=== PATIENT | female | born 1950 | race Caucasian/White ===

== ENCOUNTER 2018-11-06 13:26 | Inpatient (IN) ==
--- OUTSIDE RECORDS SUMMARY | 2018-11-06 13:28 | External Medical Summary | Continuity of Care Document ---
:1950 Author Name Gely Cantu, Provider Address Unavailable Unavailable , Care Team Providers Name Role Phone Leena Bauer M.D. Unavailable [email or web address] Brennon Lee Unavailable Unavailable Problems Active medical history not documented Allergies and Adverse Reactions Allergy history not documented Medications Medications not documented Procedures Procedures not documented Immunizations Immunizations not documented Plan of Treatment Planned Observations Planned Goals not documented Results No Known Results Results not documented
[2018-11-06] MEDS ORDERED: fentaNYL citrate 100 MCG/2 ML VIAL IV STA (13:41)
[2018-11-06 14:05] LABS: Basophils # (auto) 0.04 K/uL (0-0.2); Basophils % (auto) 0.4 %; Eosinophils # (auto) 0.29 K/uL (0-0.5); Eosinophils % (auto) 3.1 %; Hematocrit (blood only) 33.9 % (37-47); Hemoglobin 11.1 g/dL (12.0-16.0); Immature Granulocytes # (auto) 0.02 K/uL (0.00-0.02); Immature Granulocytes % (auto) 0.2 %; Lymphocytes # (auto) 1.81 K/uL (1.2-3.4); Lymphocytes % (auto) 19.4 %; Mean Corpuscular Hemoglobin 26.7 pg (25-34); Mean Corpuscular Hgb Conc 32.7 g/dL (32-36); Mean Corpuscular Volume 81.7 fL (80-100); Monocytes # (auto) 0.62 K/uL (0.11-0.59); Monocytes % (auto) 6.7 %; Neutrophils # (auto) 6.53 K/uL (1.4-6.5); Neutrophils % (auto) 70.2 %; Platelet Count 328 K/uL (130-400); RDW Coefficient of Variation 15.7 % (11.5-14.5); RDW Standard Deviation 46.8 fL (36.4-46.3); Red Blood Count 4.15 M/uL (4.2-5.4); White Blood Count 9.31 K/uL (4.8-10.8)
[2018-11-06] MEDS ORDERED: HYDROmorphone INJ 0.5 MG/0.5 ML SYR IV STA ×2 (14:09→15:29)
--- NOTE | 2018-11-06 14:09 | Emergency Department Note ---
ED Provider Note CHIEF COMPLAINT: Right leg pain, cold and discolored HISTORY OF PRESENTING ILLNESS: This is a 68-year-old female with past medical history significant for COPD, insulin-dependent diabetes, hypertension, hyperlipidemia, CAD with history of 2 MIs and a coronary stent, stroke, peripheral vascular disease, and a persistent heavy smoker, who presents to the emergency department by private vehicle with complaint of right leg pain, discoloration, and coldness that has been progressively worsening over the past 2 weeks. Patient reports a history of a bilateral femorofemoral bypass surgery in 2004, she states she has not had any issues since the surgery until now. She reports the surgeon that operated on her is retired now. She states that she had an ultrasound done at [facility] on this past Tuesday, they called her today and told her that her graft is occluded and told her to come to the ER. She states that the pain is severe, burning and stabbing, and rates it as 10/10. She has been taking gabapentin and tramadol with minimal relief. She states that the discoloration and coldness of her leg has been moving up the leg the past few days. She denies any other symptoms of chest pain, shortness of breath, dizziness or syncope, fevers or chills, nausea or vomiting, abdominal pain, back pain, urinary symptoms, or unusual rash. REVIEW OF SYSTEMS: A complete 10 point review of systems was reviewed with the patient with pertinent positives and negatives as per history of present illness. All else were negative. PAST MEDICAL HISTORY: COPD, type 2 diabetes, hypertension, hyperlipidemia, CAD, MS, S/P stent, stroke, peripheral vascular disease, femorofemoral bypass surgery SOCIAL HISTORY: Lives at home, she is a current everyday smoker approximately 2 packs/day ALLERGIES: Reviewed in chart and with the patient PHYSICAL EXAM: CONSTITUTIONAL: Pleasant and cooperative. No acute distress, but appears uncomfortable from pain. Well appearing and well nourished. HEENT: Normocephalic, atraumatic. PERRL, EOMI. NECK: Supple, full active range of motion without discomfort. RESPIRATORY: Clear to auscultation bilaterally with no wheezing, crackles, rhonchi or stridor. Equal expansion bilaterally. CARDIOVASCULAR: Regular rate and rhythm with no murmurs, rubs or gallops. The right lower extremity is cold to the touch, mottled, and with significantly delayed cap refill (>6 seconds). Poor sensation to the right foot. Unable to palpate pulses, faint monophasic doppler pulses found at the femoral, popliteal, and PT pulse points. Unable to doppler a DP pulse in the right foot. Good pulses in the left foot and leg, which is warm and with normal cap refill. No pitting edema bilateral lower extremities. GASTROINTESTINAL: Soft, nontender, nondistended. No palpable masses or HSM. Bowel sounds present in all quadrants. MUSCULOSKELETAL: Full range of motion of all joints without discomfort. INTEGUMENTARY: No rash or other significant dermatologic conditions noted. NEUROLOGIC: Alert and oriented X 4 with normal affect. ED COURSE AND MEDICAL DECISION MAKING: CC: Patient presenting with complaint of right leg pain DIFFERENTIAL DIAGNOSIS: Includes, but not limited to PVD, PAD, arterial occlusion, vascular graft failure, ischemic limb, among others. INTERPRETATION OF LABS: No leukocytosis, mild anemia, normal platelets, no significant electrolyte abnormalities, normal renal function, normal liver enzym es. Lactic acid within normal limits. Coagulation factors within normal limits. IMAGING: CT ANGIOGRAPHY OF THE ABDOMEN AND PELVIS AND BILATERAL LOWER EXTREMITIES CLINICAL HISTORY: Right foot coldness. Evaluate femoral-femoral bypass. COMPARISON STUDY: None. TECHNIQUE: Helical axial images of the abdomen and pelvis and both lower extremities were obtained during arterial phase following intravenous injection 120 cc Optiray 320 IV. Sagittal and coronal reconstructions were viewed as well as maximal intensity projections on an independent 3-D workstation. Automated exposure control was utilized for the study. A dose lowering technique was utilized adhering to the principles of ALARA. FINDINGS: Multiple small right lower lung lobe nodule measures up to 3 mm. Heart is mildly enlarged. Arterial phase images of the liver, spleen, adrenal glands, kidneys and pancreas are unremarkable with exception of scarring within the lower pole the left kidney. There is no biliary or pancreatic ductal dilatation. There is no evidence for a bowel obstruction. The appendix is normal. No ascites or lymphadenopathy is present. There are no suspicious osseous lesions. Extensive aortoiliac and bilateral lower extremity atherosclerotic plaque is noted. The caliber of the abdominal aorta is normal. There is moderate stenosis of the superior mesenteric artery and mild to moderate stenosis at the origin of the right renal artery. Celiac axis is patent. Note is made of occlusion of the femoral to femoral bypass. There is moderate stenosis at the origin of the left superficial femoral artery with suspected severe stenosis of the distal left superficial femoral artery which is difficult to assess given extensive plaque. Moderate to severe stenosis of the left popliteal artery is noted. The left anterior tibial, posterior tibial and peroneal arteries are patent. Moderate stenosis of the tibioperoneal trunk is noted. The right external iliac artery is occluded. There is severe stenosis of the right common iliac artery as well as moderate to severe stenosis at the origin of the right internal iliac artery. Flow within the right lower extremity is noted due to collaterals from the right internal iliac artery. Extensive plaque within the right lower extremity is noted. There are severe multifocal stenoses within the right superficial femoral artery. The right popliteal artery is pat ent. The right posterior tibial artery is patent. Right peroneal artery is patent. There is suspected occlusion of the mid to distal right anterior tibial artery and the right dorsalis pedis. IMPRESSION: 1. Extensive aortoiliac and bilateral lower extremity atherosclerotic plaque. Occluded femoral to femoral bypass with collateral originating from the right internal iliac artery supplying the right lower extremity. Severe multifocal stenoses within the right superficial femoral artery with suspected occlusion of the mid to distal right anterior tibial and dorsalis pedis vessels. Patent right posterior tibial and peroneal arteries. 2. Severe stenoses of the distal left superficial femoral and popliteal arteries with moderate stenosis at the origin of the left superficial femoral artery. 3. Moderate stenosis of the superior mesenteric artery. Mild to moderate stenosis at the origin the right renal artery. 4. No acute process within the abdomen or pelvis. 5. Multiple small right lower lobe pulmonary nodules which are likely benign. A follow-up chest CT in 6 months to ensure stability is recommended. MEDICATION RECONCILIATION: I attest that I have personally reviewed the gama isaac's current medication list. INITIAL VITAL SIGNS REVIEW: I reviewed the patient's initial vital signs and interpret them as follows: T: Afebrile; BP: Normotensive; HR: Within normal limits; RR: Within normal limits; Pulse Ox: Within normal limits on room air. Blood pressure screening: The patient was found to have normal blood pressure on screening and does not require follow-up for repeat blood pressure check. MDM SUMMARY: Patient was evaluated at bedside, history and physical exam performed. Patient is alert and oriented, in no acute distress, but appears uncomfortable from pain, resting in the stretcher. Exam findings concerning for an acutely ischemic limb, the right leg is cold, mottled, insensate, and with barely discernible femoral, popliteal, and PT pulses with Doppler, no DP pulse with Doppler. Dr. Caban was immediately made aware of the patient and also evaluated her at bedside. I spoke on the phone with Dr. Jara, vascular surgery, who requested CT angio of the abdomen with runoff of the entire leg, and recommended placing the patient on heparin drip. Orders were placed at bedside for labs, IV fluid bolus for renal protection, IV fentanyl for pain, CTA imaging to evaluate for graft patency and right limb ischemia. Heparin drip orders were placed as well. Labs and imaging reviewed as above, no significant lab abnormalities. Normal lactic acid. CTA reviewed, noting an occluded femoral to femoral bypass, severe stenosis throughout the right extremity arteries with suspected occlusion of the mid to distal right anterior tibial and dorsalis pedis vessels. Patient reassessed multiple times throughout ED stay, she remained hemodynamically stable, her pain has been improved with IV Dilaudid. Her vascular exam remains unchanged on frequent reassessments. Dr. Jara plans to take the patient to the OR emergently to attempt to revascularize the right lower extremity. The patient was updated on all results and plan for the OR and admission, she ve rbalized understanding and was agreeable to this plan. The patient was stable at time of transfer to the OR. CRITICAL CARE NOTE: I have personally spent greater than 35 minutes of critical care time in the direct management of this patient. This includes bedside care, interpretation of diagnostic studies, and testing, discussion with consultants, patient, and family members, and other required patient management activities. This 35 minutes is in excess of all separately billable procedures. The chart was completed utilizing [employer] voice recognition software. Grammatical errors, random word insertions, pronoun errors, and incomplete sentences are an occasional consequence of this system due to software limitations, ambient noise, and hardware issues. Any formal questions or concerns about the content, text, or information contained within the body of this dictation should be directly addressed to the nurse practitioner for clarification. Impression & Plan Pain of right lower extremity due to ischemia Past Med/Surg History Medical History Critical limb ischemia with history of revascularization of same extremity (Acute) RLE COPD (chronic obstructive pulmonary disease) CVA (cerebral vascular accident) Coronary artery disease, occlusive Diabetes mellitus type 2 with atherosclerosis of arteries of extremities H/O: hysterectomy HTN (hypertension) Hyperlipidemia Insulin dependent diabetes mellitus Myocardial infarction x2 with stent PVD (peripheral vascular disease) Tobacco use disorder, continuous 2ppd Surgical History Status post carotid endarterectomy right Status post femoral-popliteal bypass surgery 2004 Social History Feels Safe at Home: Yes Smoking Status: Current every day smoker Cigarettes Per Day: 2ppd ; Do You Dip or Chew Tobacco: No ; Hx Alcohol Use: No Hx Substance Use: No Results & Data Vital Signs Vital Signs - 24 hr 11/06/18 13:31 11/06/18 14:13 11/06/18 14:18 Temperature 36.9 C Temperature Source Oral Sepsis Recent Fever Within 48 Hours No Sepsis Action Taken by Nursing No Action Required Pulse Rate 89 83 92 H Pulse Rate [Finger] Pulse Rate from SpO2 Sensor 82 89 Pulse Rhythm [Finger] Respiratory Rate 20 21 19 Respiratory Effort / Characteristics Non-Labored Respiratory Depth Normal Respiratory Pattern Regular Blood Pressure 125/69 125/64 Blood Pressure [Right Arm] Blood Pressure Mean 87 84 Blood Pressure Mean [Right Arm] Blood Pressure Position [Right Arm] Pulse Oximetry 96 99 94 Oxygen Delivery Method Room Air 11/06/18 14:20 11/06/18 14:30 11/06/18 14:40 Temperature Temperature Source Sepsis Recent Fever Within 48 Hours Sepsis Action Taken by Nursing Pulse Rate 79 73 80 Pulse Rate [Finger] Pulse Rate from SpO2 Sensor 78 75 Pulse Rhythm [Finger] Respiratory Rate 16 17 15 Respiratory Effort / Characteristics Respiratory Depth Respiratory Pattern Blood Pressure Blood Pressure [Right Arm] Blood Pressure Mean Blood Pressure Mean [Right Arm] Blood Pressure Position [Right Arm] Pulse Oximetry 97 97 Oxygen Delivery Method 11/06/18 14:45 11/06/18 14:50 11/06/18 15:25 Temperature Temperature Source Sepsis Recent Fever Within 48 Hours Sepsis Action Taken by Nursing Pulse Rate 78 79 90 Pulse Rate [Finger] Pulse Rate from SpO2 Sensor 73 78 87 Pulse Rhythm [Finger] Respiratory Rate 12 14 10 L Respiratory Effort / Characteristics Respiratory Depth Respiratory Pattern Blood Pressure 113/64 Blood Pressure [Right Arm] Blood Pressure Mean 80 Blood Pressure Mean [Right Arm] Blood Pressure Position [Right Arm] Pulse Oximetry 97 98 96 Oxygen Delivery Method 11/06/18 15:30 11/06/18 15:40 11/06/18 15:50 Temperature Temperature Source Sepsis Recent Fever Within 48 Hours Sepsis Action Taken by Nursing Pulse Rate 83 81 84 Pulse Rate [Finger] 87 Pulse Rate from SpO2 Sensor 78 82 84 Pulse Rhythm [Finger] Respiratory Rate 15 12 13 Respiratory Effort / Characteristics Non-Labored Respiratory Depth Normal Respiratory Pattern Blood Pressure 123/62 Blood Pressure [Right Arm] 123/62 Blood Pressure Mean 82 Blood Pressure Mean [Right Arm] 82 Blood Pressure Position [Right Arm] Pulse Oximetry 97 99 99 Oxygen Delivery Method Room Air 11/06/18 16:10 Temperature 36.7 C Temperature Source Oral Sepsis Recent Fever Within 48 Hours Sepsis Action Taken by Nursing Pulse Rate Pulse Rate [Finger] 87 Pulse Rate from SpO2 Sensor Pulse Rhythm [Finger] Regular Respiratory Rate 18 Respiratory Effort / Characteristics Non-Labored Spontaneous Respiratory Depth Normal Respiratory Pattern Regular Blood Pressure Blood Pressure [Right Arm] 126/69 Blood Pressure Mean Blood Pressure Mean [Right Arm] 88 Blood Pressure Position [Right Arm] Semi-fowlers Pulse Oximetry 98 Oxygen Delivery Method Room Air Laboratory Data Result diagrams: 11/06/18 20:05 11/06/18 20:05 Lab Results 11/06/18 11/06/18 11/06/18 Range/Units 13:54 13:54 13:54 WBC 9.31 (4.8-10.8) K/uL RBC 4.15 L (4.2-5.4) M/uL Hgb 11.1 L (12.0-16.0) g/dL Hct 33.9 L (37-47) % MCV 81.7 (80-100) fL MCH 26.7 (25-34) pg MCHC 32.7 (32-36) g/dL RDW Std Deviation 46.8 H (36.4-46.3) fL RDW Coeff of Shahrzad 15.7 H (11.5-14.5) % Plt Count 328 (130-400) K/uL MPV 9.0 (7.4-10.4) fL Immature Gran % (Auto) 0.2 % Neut % (Auto) 70.2 % Lymph % (Auto) 19.4 % [place] % (Auto) 6.7 % Eos % (Auto) 3.1 % Baso % (Auto) 0.4 % Immature Gran # (Auto) 0.02 (0.00-0.02) K/uL Neut # (Auto) 6.53 H (1.4-6.5) K/uL Lymph # (Auto) 1.81 (1.2-3.4) K/uL [place] # (Auto) 0.62 H (0.11-0.59) K/uL Eos # (Auto) 0.29 (0-0.5) K/uL Baso # (Auto) 0.04 (0-0.2) K/uL PT 10.8 (9.0-12.0) Seconds INR 1.1 (0.9-1.1) APTT 26.1 (21.0-31.0) Seconds PTT Ratio 1.0 Sodium 139 (136-145) mmol/L Potassium 4.1 (3.5-5.1) mmol/L Chloride 103 (98-107) mmol/L Carbon Dioxide 29 (21-32) mmol/L Anion Gap 7.0 (3-11) BUN 13 (7-18) mg/dl Creatinine 1.04 (0.6-1.2) mg/dl Est Cr Clr Drug Dosing 51.8 ml/min Est GFR ( Amer) 63.5 Est GFR (Non-Af Amer) 54.8 BUN/Creatinine Ratio 12.9 (10-20) Glucose 110 H (70-99) mg/dl Lactate (0.4-2.0) mmol/L Calcium 9.4 (8.5-10.1) mg/dl Total Bilirubin 0.7 (0.2-1) mg/dl AST 10 L (15-37) U/L ALT 15 (12-78) U/L Alkaline Phosphatase 101 (45-117) U/L Total Protein 8.3 H (6.4-8.2) gm/dl Albumin 3.8 (3.4-5.0) gm/dl Globulin 4.5 H (2.5-4.0) gm/dl Albumin/Globulin Ratio 0.8 L (0.9-2) Blood Type Blood Type Recheck Antibody Screen Crossmatch 11/06/18 11/06/18 11/06/18 Range/Units 13:54 15:46 17:20 WBC (4.8-10.8) K/uL RBC (4.2-5.4) M/uL Hgb (12.0-16.0) g/dL Hct (37-47) % MCV (80-100) fL MCH (25-34) pg MCHC (32-36) g/dL RDW Std Deviation (36.4-46.3) fL RDW Coeff of Shahrzad (11.5-14.5) % Plt Count (130-400) K/uL MPV (7.4-10.4) fL Immature Gran % (Auto) % Neut % (Auto) % Lymph % (Auto) % [place] % (Auto) % Eos % (Auto) % Baso % (Auto) % Immature Gran # (Auto) (0.00-0.02) K/uL Neut # (Auto) (1.4-6.5) K/uL Lymph # (Auto) (1.2-3.4) K/uL [place] # (Auto) (0.11-0.59) K/uL Eos # (Auto) (0-0.5) K/uL Baso # (Auto) (0-0.2) K/uL PT (9.0-12.0) Seconds INR (0.9-1.1) APTT (21.0-31.0) Seconds PTT Ratio Sodium (136-145) mmol/L Potassium (3.5-5.1) mmol/L Chloride (98-107) mmol/L Carbon Dioxide (21-32) mmol/L Anion Gap (3-11) BUN (7-18) mg/dl Creatinine (0.6-1.2) mg/dl Est Cr Clr Drug Dosing ml/min Est GFR ( Amer) Est GFR (Non-Af Amer) BUN/Creatinine Ratio (10-20) Glucose (70-99) mg/dl Lactate 1.7 (0.4-2.0) mmol/L Calcium (8.5-10.1) mg/dl Total Bilirubin (0.2-1) mg/dl AST (15-37) U/L ALT (12-78) U/L Alkaline Phosphatase (45-117) U/L Total Protein (6.4-8.2) gm/dl Albumin (3.4-5.0) gm/dl Globulin (2.5-4.0) gm/dl Albumin/Globulin Ratio (0.9-2) Blood Type A Positive Blood Type Recheck A Positive Antibody Screen NEGATIVE Crossmatch See Detail Administered Medications Buspirone HCl (Buspar) 15 mg PO BID [facility] Stop: 12/06/18 21:27 Last Admin: 11/06/18 22:28 Dose: 15 mg Documented by: [id number] Carvedilol (Coreg) 3.125 mg PO BID [facility] Stop: 12/06/18 21:27 Last Admin: 11/06/18 22:29 Dose: 3.125 mg Documented by: [id number] Gabapentin (Neurontin) 100 mg PO TID [facility] Stop: 12/06/18 21:27 Last Admin: 11/06/18 22:29 Dose: 100 mg Documented by: [id number] Heparin Sodium/Dextrose (Heparin Sodium/Dextrose) 25,000 units in 500 mls @ 23 mls/hr IV .[id number] [facility]; Protocol Stop: 12/06/18 14:29 Last Admin: 11/06/18 22:50 Dose: 1,150 units/hr, 23 mls/hr Documented by: [id number] Cosigned by: [id number] Titration: 11/06/18 22:50 Dose: 1,150 units/hr, 23 mls/hr Documented by: [id number] Cosigned by: [id number] Admin: 11/06/18 14:49 Dose: 1,150 units/hr, 23 mls/hr Documented by: [id number] Cosigned by: [id number] Ioversol (Optiray 320 125ml) 120 ml IV ONCE PRN PRN Reason: Interaction Checking Stop: 11/10/18 15:23 Last Admin: 11/06/18 15:25 Dose: 120 ml Documented by: [id number] Miscellaneous (Remove Nicoderm Patch) 1 ea N/A HS [facility] Stop: 12/06/18 20:59 Last Admin: 11/06/18 22:28 Dose: 1 ea Documented by: [id number] Morphine Sulfate (Morphine Sulfate) 1 - 4 mg IV Q2H PRN PRN Reason: Severe Pain Stop: 11/20/18 21:27 Last Admin: 11/06/18 22:31 Dose: 4 mg Documented by: [id number] Nicotine (Nicoderm Cq) 21 mg TD QAM [facility] Stop: 12/06/18 15:29 Last Admin: 11/06/18 15:42 Dose: 21 mg Documented by: [id number] Pantoprazole Sodium (Protonix) 40 mg PO BID [facility] Stop: 12/06/18 21:27 Last Admin: 11/06/18 22:30 Dose: 40 mg Documented by: [id number] Discontinued Medications Bupivacaine HCl/Epinephrine Bitart (Sensorcaine/Epinephrine 0.5% Mpf 1:200,000) Confirm Administered Dose 30 ml .ROUTE .STK-MED ONE Stop: 11/06/18 16:14 Last Admin: 11/06/18 19:24 Dose: 10 ml Documented by: [id number] Cefazolin Sodium (Ancef) Confirm Administered Dose 1,000 mg .ROUTE .STK-MED ONE Stop: 11/06/18 16:14 Last Admin: 11/06/18 18:45 Dose: Not Given Documented by: [id number] Fentanyl Citrate (Fentanyl Citrate) 50 mcg IV NOW STA Stop: 11/06/18 13:42 Last Admin: 11/06/18 13:58 Dose: 50 mcg Documented by: [id number] Gelatin (Surgifoam Sponge 100 (Large)) Confirm Administered Dose 2 ea .ROUTE .STK-MED ONE Stop: 11/06/18 16:14 Last Admin: 11/06/18 18:46 Dose: 1 ea Documented by: [id number] Heparin Sodium (Porcine) (Heparin Iv Bolus (Appliance Technician Use Only)) Confirm Administered Dose 10,000 units .ROUTE .STK-MED ONE Stop: 11/06/18 16:13 Last Admin: 11/06/18 18:46 Dose: 5,000 units Documented by: [id number] Heparin Sodium/Dextrose () 1 ea N/A ONE ONE; Protocol Stop: 11/06/18 14:17 Last Admin: 11/06/18 14:53 Dose: Not Given Documented by: [id number] Hydromorphone HCl (Dilaudid) 0.5 mg IV NOW STA Stop: 11/06/18 14:10 Last Admin: 11/06/18 14:14 Dose: 0.5 mg Documented by: [id number] Hydromorphone HCl (Dilaudid) 0.5 mg IV NOW STA Stop: 11/06/18 15:30 Last Admin: 11/06/18 15:43 Dose: 0.5 mg Documented by: [id number] Sodium Chloride (Nss 1000ml) 500 mls @ 999 mls/hr IV .Q31M ONE Stop: 11/06/18 15:25 Last Admin: 11/06/18 15:43 Dose: 999 mls/hr Documented by: [id number] Iodixanol (Visipaque) Confirm Administered Dose 270 mg .ROUTE .STK-MED ONE Stop: 11/06/18 16:14 Last Admin: 11/06/18 18:47 Dose: Not Given Documented by: [id number] Lidocaine HCl (Xylocaine 1% (Local)) Confirm Administered Dose 20 ml .ROUTE .STK-MED ONE Stop: 11/06/18 16:13 Last Admin: 11/06/18 19:23 Dose: 10 ml Documented by: [id number] Metoclopramide HCl (Reglan) 10 mg IV ONCE PRN PRN Reason: PACU Use Only-Nausea/Vomiting Stop: 11/07/18 00:58 Last Admin: 11/06/18 20:07 Dose: 10 mg Documented by: [id number] Metoclopramide HCl (Reglan) Confirm Administered Dose 10 mg .ROUTE .STK-MED ONE Stop: 11/06/18 20:06 Last Admin: 11/06/18 21:59 Dose: Not Given Documented by: [id number] Papaverine HCl (Papaverine Hcl) Confirm Administered Dose 30 mg .ROUTE .STK-MED ONE Stop: 11/06/18 16:13 Last Admin: 11/06/18 18:44 Dose: Not Given Documented by: [id number] Thrombin (Recothrom Kit) Confirm Administered Dose 10,000 units .ROUTE .STK-MED ONE Stop: 11/06/18 16:14 Last Admin: 11/06/18 18:45 Dose: 5,000 units Documented by: [id number] Discharge Plan Visit Data *Final* Discharge Date/Time: 11/06/18 16:01 Chief Complaint: Leg Injury/Pain Stated Complaint: NO BLOOD FLOW TO R LEG ED Provider: Fred Caban ED Midlevel Provider: Adriana Berg Discharge Problem: Pain of right lower extremity due to ischemia Patient Disposition: Still a Patient Discharge Instructions Interventions: ED Discharge Assessment Last Done: 11/06/18 16:01
[2018-11-06] MEDS ORDERED: Heparin IV Standard *NO* Bolus ONE (14:16)
[2018-11-06 14:20] LABS: Albumin Level 3.8 gm/dl (3.4-5.0); BUN Creatinine Ratio 12.9 (10-20); Calcium 9.4 mg/dl (8.5-10.1); Creatinine Clr Calc Pharmacy 51.8 ml/min; Est GFR (African American) 63.5; Est GFR (Non-African American) 54.8; Potassium 4.1 mmol/L (3.5-5.1)
[2018-11-06 14:23] LABS: Albumin Globulin Ratio 0.8 (0.9-2); Bilirubin,Total 0.7 mg/dl (0.2-1); Globulin 4.5 gm/dl (2.5-4.0); INR 1.1 (0.9-1.1); Partial Thromboplastin Time 26.1 Seconds (21.0-31.0); Prothrombin Time 10.8 Seconds (9.0-12.0); Total Protein 8.3 gm/dl (6.4-8.2)
[2018-11-06] MEDS ORDERED: Heparin IV Standard *NO* Bolus IV SCH (14:30)
[2018-11-06] MEDS: HEPARIN SODIUM/DEXTROSE 25,000 UNITS/500 ML BAG IV SCH ×2 (14:49→22:50)
[2018-11-06] MEDS ORDERED: SODIUM CHLORIDE 0.9% 1000ML 500 ML IV ONE (14:55)
[2018-11-06] MEDS ORDERED: OPTIRAY 320 125ml IV PRN (15:24)
--- NOTE | 2018-11-06 15:37 | History & Physical Report ---
Date of Service November 06, 2018 Assessment & Plan (1) Pain of right lower extremity due to ischemia: This point recommend a thrombectomy of the femorofemoral bypass with possible revision and possible femoropopliteal bypass if needed. I have discussed the risks options and benefits of the procedure with the patient. The patient understands the risks options and benefits and agrees to the procedure. History of Present Illness Chief Complaint: Right foot pain Primary Care Provider: Salvatore Adams MD This is a 68-year-old female who developed a right foot pain approximately 2 weeks prior to this.It is been Getting progressively worse. She does have a femorofemoral bypassDone in 2009.She had an ultrasound doneOn Tuesday which showed an occlusion of the bypass.She also has a carotid endarterectomy done on the right sideIn the past.She claims this pain is gotten progressively worse in the right foot. She has decreased sensation in the right foot. Allergies Allergy/AdvReac Type Severity Reaction Status Date / Time Penicillins Allergy Mild Vomiting Verified 11/06/18 15:02 gluten AdvReac Mild unknown Unverified 11/06/18 15:02 nitroglycerin AdvReac Mild DECREASED Verified 11/06/18 15:02 BP acetaminophen [From Lortab] AdvReac Vomiting Verified 11/06/18 15:02 hydrocodone [From Lortab] AdvReac Vomiting Verified 11/06/18 15:02 Home Medications Home Medications Medication Instructions Recorded Confirmed Type aspirin 81 mg PO DAILY 11/06/18 11/06/18 History atorvastatin 40 mg PO DAILY 11/06/18 11/06/18 History buspirone 15 mg PO BID 11/06/18 11/06/18 History carvedilol 3.125 mg PO BID 11/06/18 11/06/18 History clopidogrel 75 mg PO DAILY 11/06/18 11/06/18 History fluticasone propionate 1 spray INTRANASAL DAILY PRN 11/06/18 11/06/18 History furosemide 40 mg PO DAILY 11/06/18 11/06/18 History gabapentin 100 mg PO TID 11/06/18 11/06/18 History glipizide 10 mg PO BID 11/06/18 11/06/18 History ipratropium-albuterol 2 puff INHALATION Q4H PRN 11/06/18 11/06/18 History lisinopril 2.5 mg PO DAILY 11/06/18 11/06/18 History loratadine 10 mg PO DAILY 11/06/18 11/06/18 History omeprazole 40 mg PO BID 11/06/18 11/06/18 History pioglitazone 30 mg PO QAM 11/06/18 11/06/18 History tramadol 50 mg PO Q6H PRN 11/06/18 11/06/18 History Past Med/Surg History Medical History Coronary artery disease, occlusive Diabetes mellitus type 2 with atherosclerosis of arteries of extremities Surgical History Status post carotid endarterectomy Status post femoral-popliteal bypass surgery Social History Feels Safe at Home: Yes Smoking Status: Current every day smoker Review of Systems All systems reviewed & are unremarkable except as noted in HPI & below Physical Exam Constitutional: WD/WN, vitals as above well developed and well nourished Respiratory: normal respiratory effort; no respiratory distress Cardiovascular: Rate/Rhythm: regular rate and regular rhythm Gastrointestinal (Abdomen): Inspection/Auscultation: abdomen normal to inspection; abdomen not distended Percussion/Palpation: abdomen nontender Skin: Discoloration of the right foot. Neurologic: She is anesthetic in the right foot and the toes and dorsum of the foot. Psychiatric: A+Ox3, euthymic affect Results & Data Vital Signs (Past 12 Hours) Vital Signs Temp Pulse Resp BP Pulse Ox 11/06/18 13:31 36.9 C 89 20 125/69 96
[2018-11-06] MEDS: NICOTINE 21 MG/24 HR TDSY TD SCH (15:42)
--- NOTE | 2018-11-06 15:53 | CT Scan Report ---
CT ANGIOGRAPHY OF THE ABDOMEN AND PELVIS AND BILATERAL LOWER EXTREMITIES CLINICAL HISTORY: Right foot coldness. Evaluate femoral-femoral bypass. COMPARISON STUDY: None. TECHNIQUE: Helical axial images of the abdomen and pelvis and both lower extremities were obtained du ring arterial phase following intravenous injection 120 cc Optiray 320 IV. Sagittal and coronal recon structions were viewed as well as maximal intensity projections on an independent 3-D workstation. Au tomated exposure control was utilized for the study. A dose lowering technique was utilized adhering to the principles of ALARA. FINDINGS: Multiple small right lower lung lobe nodule measures up to 3 mm. Heart is mildly enlarged. Arterial phase images of the liver, spleen, adrenal glands, kidneys and pancreas are unremarkable wit h exception of scarring within the lower pole the left kidney. There is no biliary or pancreatic duct al dilatation. There is no evidence for a bowel obstruction. The appendix is normal. No ascites or ly mphadenopathy is present. There are no suspicious osseous lesions. Extensive aortoiliac and bilateral lower extremity atherosclerotic plaque is noted. The caliber of th e abdominal aorta is normal. There is moderate stenosis of the superior mesenteric artery and mild to moderate stenosis at the origin of the right renal artery. Celiac axis is patent. Note is made of oc clusion of the femoral to femoral bypass. There is moderate stenosis at the origin of the left superf icial femoral artery with suspected severe stenosis of the distal left superficial femoral artery whi ch is difficult to assess given extensive plaque. Moderate to severe stenosis of the left popliteal a rtery is noted. The left anterior tibial, posterior tibial and peroneal arteries are patent. Moderate stenosis of the tibioperoneal trunk is noted. The right external iliac artery is occluded. There is severe stenosis of the right common iliac arter y as well as moderate to severe stenosis at the origin of the right internal iliac artery. Flow withi n the right lower extremity is noted due to collaterals from the right internal iliac artery. Extensi ve plaque within the right lower extremity is noted. There are severe multifocal stenoses within the right superficial femoral artery. The right popliteal artery is patent. The right posterior tibial ar marcus is patent. Right peroneal artery is patent. There is suspected occlusion of the mid to distal ri ght anterior tibial artery and the right dorsalis pedis. IMPRESSION: 1. Extensive aortoiliac and bilateral lower extremity atherosclerotic plaque. Occluded femoral to fem oral bypass with collateral originating from the right internal iliac artery supplying the right lowe r extremity. Severe multifocal stenoses within the right superficial femoral artery with suspected oc clusion of the mid to distal right anterior tibial and dorsalis pedis vessels. Patent right posterior tibial and peroneal arteries. 2. Severe stenoses of the distal left superficial femoral and popliteal arteries with moderate stenos is at the origin of the left superficial femoral artery. 3. Moderate stenosis of the superior mesenteric artery. Mild to moderate stenosis at the origin the r ight renal artery. 4. No acute process within the abdomen or pelvis. 5. Multiple small right lower lobe pulmonary nodules which are likely benign. A follow-up chest CT in 6 months to ensure stability is recommended. Electronically signed by: Patrice Partida M.D. 11/06/2018 3:52 PM
--- NOTE | 2018-11-06 16:05 | Anesthesiology Consultation ---
Date of Service November 06, 2018 Assessment & Plan (1) Pain of right lower extremity due to ischemia: Chart Review fair risk, emergency case Consults Requested none ASA [id number] Proposed Anesthesia Anesthesia Type: General Anesthesia Line Insertion: Arterial line Risk / Benefits Reviewed With: PT / POA / Parent / Guardian, Accepts Plan and Informed Consent Obtained Additional Comments: rsi History Surgery Operation Date: 11/06/18 11:20 Proposed Procedures p Thrombectomy Femoral-Femoral Bypass, Possible Revision, Possible Femoral- Popliteal Bypass - Alex Jara MD Height/Weight Height: 5 ft 3 in Weight: 82 kg Allergies Allergy/AdvReac Type Severity Reaction Status Date / Time Penicillins Allergy Mild Vomiting Verified 11/06/18 15:02 gluten AdvReac Mild unknown Unverified 11/06/18 15:02 nitroglycerin AdvReac Mild DECREASED Verified 11/06/18 15:02 BP acetaminophen [From Lortab] AdvReac Vomiting Verified 11/06/18 15:02 hydrocodone [From Lortab] AdvReac Vomiting Verified 11/06/18 15:02 Medications Home Medications Medication Instructions Recorded Confirmed Last Taken aspirin 81 mg PO DAILY 11/06/18 11/06/18 11/05/18 atorvastatin 40 mg PO DAILY 11/06/18 11/06/18 11/05/18 buspirone 15 mg PO BID 11/06/18 11/06/18 11/05/18 carvedilol 3.125 mg PO BID 11/06/18 11/06/18 11/05/18 clopidogrel 75 mg PO DAILY 11/06/18 11/06/18 11/05/18 fluticasone propionate 1 spray INTRANASAL DAILY PRN 11/06/18 11/06/18 Unknown furosemide 40 mg PO DAILY 11/06/18 11/06/18 11/05/18 gabapentin 100 mg PO TID 11/06/18 11/06/18 11/06/18 glipizide 10 mg PO BID 11/06/18 11/06/18 11/05/18 ipratropium-albuterol 2 puff INHALATION Q4H PRN 11/06/18 11/06/18 Unknown lisinopril 2.5 mg PO DAILY 11/06/18 11/06/18 11/05/18 loratadine 10 mg PO DAILY 11/06/18 11/06/18 11/05/18 omeprazole 40 mg PO BID 11/06/18 11/06/18 11/05/18 pioglitazone 30 mg PO QAM 11/06/18 11/06/18 11/05/18 tramadol 50 mg PO Q6H PRN 11/06/18 11/06/18 11/06/18 Active Medications Generic Name Dose Route Start Last Admin Trade Name Freq PRN Reason Stop Dose Admin Heparin Sodium/Dextrose 25,000 units in 500 mls @ 23 mls/hr 11/06/18 14:30 11/06/18 14:49 Heparin Sodium/Dextrose IV 12/06/18 14:29 1,150 units/hr .[id number] FABIAN 23 mls/hr Administration Protocol 1,150 UNITS/HR Ioversol 120 ml 11/06/18 15:24 11/06/18 15:25 Optiray 320 125ml IV 11/10/18 15:23 120 ml ONCE PRN Administration Interaction Checking Nicotine 21 mg 11/06/18 15:30 11/06/18 15:42 Nicoderm Cq TD 12/06/18 15:29 21 mg QAM FABIAN Administration NPO Date Last Intake of Fluids: 11/06/18 Time Last Intake of Fluids: 12:00 Last Intake of Fluids Comment: sip of tea Date Last Intake of Solids: 11/05/18 Time Last Intake of Solids: 18:00 Past Medical History Medical History Critical limb ischemia with history of revascularization of same extremity (Acute) RLE COPD (chronic obstructive pulmonary disease) CVA (cerebral vascular accident) Coronary artery disease, occlusive Diabetes mellitus type 2 with atherosclerosis of arteries of extremities H/O: hysterectomy HTN (hypertension) Hyperlipidemia Insulin dependent diabetes mellitus Myocardial infarction x2 with stent PVD (peripheral vascular disease) Tobacco use disorder, continuous 2ppd Exercise / Class Metabolic Activity III < 4 Walking/Shop/Light housework no CP/minimal SOB Past Surgical History Surgical History Status post carotid endarterectomy right Status post femoral-popliteal bypass surgery 2004 Past Anesthesia History No Hx of Anesthesia Complications History of PONV No Hx of PONV Social History Smoking Status: Current every day smoker Smoking cigarettes per day: 2ppd Do You Dip or Chew Tobacco: No Hx Alcohol Use: No Hx Substance Use: No Physical Exam Vital Signs Last Vital Signs Temp 36.7 C 11/06/18 16:10 Pulse 87 11/06/18 16:10 Resp 18 11/06/18 16:10 BP 126/69 11/06/18 16:10 Pulse Ox 98 11/06/18 16:10 ENMT Mouth: + poor dentition (only 7 bottom front teeth remain. otherwise edent); no TMJ abnormality Thyromental Distance: > or= 3.5 Finger Breadths Mallampati Class: III Neck normal visual inspection and trachea midline; neck extension not limited Respiratory normal respiratory effort Auscultation: lungs clear to auscultation bilaterally Cardiovascular Rate/Rhythm: regular rate and regular rhythm Heart Sounds: no murmur Musculoskeletal Spine: normal cervical ROM Extremities: full ROM of extremities slight decrease motor strength LUE/LLE secondary to CVA prior. 4+/5 Neurologic moves all extremities Psychiatric Orientation: alert and oriented x 3 Testing Laboratory Results 11/06/18 13:54 11/06/18 13:54 PT 10.8 Seconds (9.0-12.0) 11/06/18 13:54 INR 1.1 (0.9-1.1) 11/06/18 13:54 APTT 26.1 Seconds (21.0-31.0) 11/06/18 13:54 Electrocardiogram Date: 11/06/18 Findings: + NSR @ (81) rhythym strip only Echocardiogram echo from 2008 noted w/o sig valvular abnl. Due to emergency case, further testing not plausible
[2018-11-06] MEDS ORDERED: fentaNYL citrate 100 MCG/2 ML VIAL ONE (16:08)
[2018-11-06] MEDS ORDERED: MIDAZOLAM HCL 1 MG/ML 2ML VIAL ONE (16:08)
[2018-11-06] MEDS ORDERED: ONDANSETRON INJ 2 MG/ML 2 ML VIAL ONE ×2 (16:08→17:30)
[2018-11-06] MEDS ORDERED: LIDOCAINE HCL 2% 2 ML VIAL/AMP(20MG/ML) INFIL ONE (16:08)
[2018-11-06] MEDS ORDERED: PROPOFOL IV EMULSION 10 MG/ML 20 ML VIAL IV ONE (16:08)
[2018-11-06] MEDS ORDERED: LIDOCAINE HCL 1% 20 ML VIAL ONE (16:12)
[2018-11-06] MEDS ORDERED: PAPAVERINE HCL INJ 30 MG/ML 2 ML VIAL ONE (16:12)
[2018-11-06] MEDS ORDERED: HEPARIN (PORCINE) 1000 UNIT/ML 10 ML (CATH LAB USE ONLY) ONE (16:12)
[2018-11-06] MEDS ORDERED: THROMBIN 5000 UNITS KIT ONE (16:13)
[2018-11-06] MEDS ORDERED: IODIXANOL (VISIPAQUE) 270 MG/ML 50ML ONE (16:13)
[2018-11-06] MEDS ORDERED: BUPIVACAINE/EPINEPHRINE 0.5% MPF 1:200,000 30 ML VIAL ONE (16:13)
[2018-11-06] MEDS ORDERED: GELATIN SPONGE SZ 100 ONE (16:13)
[2018-11-06] MEDS ORDERED: CEFAZOLIN 250 MG/ML 1 GM VIAL ONE (16:13)
[2018-11-06] MEDS ORDERED: SODIUM CHLORIDE 0.9% 250 ML IV PRN ×2 (16:22→20:56)
[2018-11-06] MEDS ORDERED: ONDANSETRON INJ 2 MG/ML 2 ML VIAL IV PRN (17:28)
[2018-11-06] MEDS ORDERED: fentaNYL citrate 100 MCG/2 ML VIAL IV PRN (17:28)
[2018-11-06] MEDS ORDERED: ePHEDrine sulfate 50 MG/ML AMP IV PRN (17:28)
[2018-11-06] MEDS ORDERED: MoRPHine SULFATE 10 MG/ML CARP/VIAL IV PRN (17:28)
[2018-11-06] MEDS ORDERED: ATROPINE SULFATE 0.1 MG/ML 10ML SYR IV PRN (17:28)
[2018-11-06] MEDS ORDERED: MEPERIDINE HCL 25 MG/ML CARP IV PRN (17:28)
[2018-11-06] MEDS ORDERED: ALBUT/IPRATROP 3MG/0.5MG NEB 3 ML VIAL INH PRN (17:28)
[2018-11-06] MEDS ORDERED: HEPARIN SOD (PORCINE) 1000 UNIT/ML 10 ML VIAL ONE (17:30)
[2018-11-06] MEDS ORDERED: ePHEDrine sulfate 50 MG/ML SYR ONE (17:30)
[2018-11-06] MEDS ORDERED: CLINDAMYCIN PHOS 300 MG/2 ML VIAL ONE (17:30)
[2018-11-06] MEDS ORDERED: DEXAMETHASONE SOD INJ 4 MG/ML VIAL ONE (17:30)
--- NOTE | 2018-11-06 17:38 | Critical Care Consultation ---
Date of Consultation November 06, 2018 Assessment & Plan (1) Pain of right lower extremity due to ischemia: Reason Critically Ill: 68-year-old female here with a PMHx significant for COPD, DM, HTN, HLD, CAD, stroke, PVD, tobacco abuse who presented with right lower extremity progressive pain and who was admitted for right femoropopliteal bypass graft occlusion s/p surgical intervention. Neuro - [facility] ICU: NEGATIVE No acute mentation concerns. History of stroke without residual deficit Continue aspirin/clopidogrel dual antiplatelet therapy tomorrow No acute stroke concerns Cardiac/vascular- Right lower extremity ischemia 2/2 femoral popliteal bypass occlusion Pending from ectopy and revision of distal femoropopliteal anastomosis CAD hx PCI -Hold CLIENT TECHNICAL PROFESSIONAL Atorvastatin 40 -Hold CLIENT TECHNICAL PROFESSIONAL Carvedilol 3.125mg BID -Hold CLIENT TECHNICAL PROFESSIONAL lasix 40mg daily Respiratory - COPD with history of tobacco use DuoNeb every 4 hours as needed No home O2 requirement Titrate O2 NC for SPO2 greater than 88% GI - Heart healthy diet RENAL/LYTES - Sodium 142, potassium 4.1 Creatinine 0.73 No acute electrolyte abnormalities, electrolytes as needed per protocol - No concerns at this time. ENDO - T2DM - Hold CLIENT TECHNICAL PROFESSIONAL glipidize 10mg PO BID - Hold CLIENT TECHNICAL PROFESSIONAL pioglitazone 30mg PO qAM SSI hyperglycemia protocol, glucose checks AC/at bedtime BMP daily HEME - Hemoglobin 8.0 Will monitor for any drops in the setting of Heparin gtt ID - No concerns for infection at this point. INTEGUMENTARY - See right lower extremity description above. Otherwise no acute integumentary concerns. LINES/IV ACCESS - PIVs intact. DVT PROPHYLAXIS - Heparin GTT Thank you for allowing us to be part of this patient's care. Please refer to Dr. Lin's documentation for any further recommendations. Supervising Physician Co-Signing Physician Notes Dr. Sanz was resident physician during care of patient. I separately evaluated patient for maharaj portions of the history and the exam. I was present during the critical portion of medical decision making, and I discussed the case with the resident. I generally agree with the findings and plan. History of Present Illness Reason for Consultation: Right femoropopliteal occlusion s/p surgical intervention Requesting Physician: Alex Jara Attending Physician: Alex Jara MD History of Present Illness Carlotta Khan is a 68-year-old female with a past medical history of COPD, type 2 diabetes mellitus, hypertension, hyperlipidemia, coronary artery disease status post HI x2 and PCI, stroke, peripheral vascular disease, and heavy active tobacco use who presented to the emergency department with 2 weeks of progressively worsening right leg pain, coolness, and discoloration. On presentation to the emergency department her pain was 10/10 and burning in jennifer lity. She has a history of bilateral femoral-popliteal bypass in 2004. Prior to admission an ultrasound at [facility] showed an occluded right femoropopliteal graft. Her pain had not improved with gabapentin or tramadol. Social: tobacco use 2ppd. no etoh, no recreational drug use. Past medical history: COPD, T2DM, HTN, HLD, CAD status post HI x2 & PCI, PVD Past surgical history: Bilateral femoropopliteal bypass 2004, PCI Allergies Allergy/AdvReac Type Severity Reaction Status Date / Time Penicillins Allergy Mild Vomiting Verified 11/06/18 15:02 mushroom Allergy Verified 11/07/18 11:21 strawberry Allergy Verified 11/07/18 11:20 gluten AdvReac Mild unknown Unverified 11/06/18 15:02 nitroglycerin AdvReac Mild DECREASED Verified 11/06/18 15:02 BP hydrocodone [From Lortab] AdvReac Vomiting Verified 11/06/18 15:02 Home Medications Home Medications Medication Instructions Recorded Confirmed Type aspirin 81 mg PO DAILY 11/06/18 11/06/18 History atorvastatin 40 mg PO DAILY 11/06/18 11/06/18 History buspirone 15 mg PO BID 11/06/18 11/06/18 History carvedilol 3.125 mg PO BID 11/06/18 11/06/18 History clopidogrel 75 mg PO DAILY 11/06/18 11/06/18 History fluticasone propionate 1 spray INTRANASAL DAILY PRN 11/06/18 11/06/18 History furosemide 40 mg PO DAILY 11/06/18 11/06/18 History gabapentin 100 mg PO TID 11/06/18 11/06/18 History glipizide 10 mg PO BID 11/06/18 11/06/18 History ipratropium-albuterol 2 puff INHALATION Q4H PRN 11/06/18 11/06/18 History lisinopril 2.5 mg PO DAILY 11/06/18 11/06/18 History loratadine 10 mg PO DAILY 11/06/18 11/06/18 History omeprazole 40 mg PO BID 11/06/18 11/06/18 History pioglitazone 30 mg PO QAM 11/06/18 11/06/18 History tramadol 50 mg PO Q6H PRN 11/06/18 11/06/18 History Patient History Surgical History Status post carotid endarterectomy right Status post femoral-popliteal bypass surgery 2004 Social History Preferred Language: Andorran Communication Ability: Effective Beliefs That Will Affect Care: None Current Living Situation: Family Other Information That Helps Us Care for You: No Feels Safe at Home: Yes Safety Concerns: Feels Safe At This Time Smoking Status: Current every day smoker Tobacco Type: cigarettes ; Cigarettes Per Day: 2ppd ; Do You Dip or Chew Tobacco: No ; Second Hand Exposure: Yes ; Tobacco Cessation Education Requested by Patient: Yes (patient refuses to stop smoking) Hx Alcohol Use: No Hx Substance Use: No Review of Systems Review of Systems: Constitutional: Denies fever, chills, malaise, weight change Eyes: Denies double vision, vision change, eye pain ENT: Denies ear pain, sore throat, sinus pain Cardiovascular: Denies Chest pain, chest pressure, palpitations, extremity swelling Respiratory: Denies shortness of breath, cough, sputum production, difficulty breathing Gastrointestinal: Denies abdominal pain, nausea, vomiting, constipation, diarrhea Genitourinary: Denies pain with urination, urinary urgency, urinary frequency Musculoskeletal: R leg pain, otherwise denies weakness, muscle aches/pain, joint aches/pain Integumentary:Denies rash, lesions, bruising Neurological: Denies headache, numbness, tingling, focal weakness Physical Exam Physical Exam: General: A&Ox3. NAD. Cooperative. HEENT: Atraumatic, normocephalic. Pulm: Diffuse expiratory wheezes and mild rhonchi. No rales. Symmetrical chest rise. No increase work of breathing. No respiratory distress. Cardiac: RRR, -mrg. Radial pulses intact and symmetrical. Abdominal: Nontender, nondistended, soft. BS present. Extremity: Right lower extremity cool, tender. PT&DP present on doppler. Left lower extremity warm, sensation and proprioception intact, 5/5 strength to ankle plantarflexion/dorsiflexion. PT pulse intact. Results & Data Vital Signs (Past 12 Hours) Vital Signs Temp Pulse Pulse Resp BP BP Pulse Ox 11/06/18 16:10 36.7 C 87 18 126/69 98 11/06/18 15:40 87 18 123/62 98 11/06/18 13:31 36.9 C 89 20 125/69 96 PG Care Time/CCT Total # of Minutes Spent Total Time Spent with Patient: Total time spent is greater than 50% in coordination of care (as documented) at patient's floor/unit and/or counseling patient: Resident Activity Tracking Resident Involvement: Resident Care Provided Care Provided: Adult Hospital Medicine
[2018-11-06] MEDS ORDERED: GLYCOPYRROLATE 0.2 MG/ML VIAL ONE (17:51)
[2018-11-06] MEDS ORDERED: NEOSTIGMINE METHYLSULFATE 5 MG/5 ML SYR ONE (17:51)
[2018-11-06] MEDS ORDERED: ROCURONIUM BROMIDE 10 MG/ML 5 ML VIAL ONE (18:10)
[2018-11-06] MEDS ORDERED: PROTAMINE SULFATE 10 MG/ML 5 ML VIAL ONE (18:45)
--- NOTE | 2018-11-06 18:57 | Post Operative Brief Note ---
Immediate Post Op Note v1 Date of Surgery November 06, 2018 Pre & Post Diagnosis Operation Date: 11/06/18 11:20 Pre-Op Diagnosis: Pain of right lower extremity due to ischemia Post-Op Diagnosis: ischemic right leg Procedure Operation Date: 11/06/18 11:20 Actual Procedures p Thrombectomy, Femoral-Femoral Bypass, Patch angioplasty of distal anastamosis (right femoral) - Alex Jara MD Surgeon Alex Jara MD Exhaust And Muffler Repairer MD Magaly Estimated Blood Loss 400 Findings Consistent with Post-Op Diagnosis Drains Lind Catheter (patient arrived to OR with lind) Anesthesia Type General Complications none Disposition Accompanied Patient To Recovery: No Disposition: Recovery Room
[2018-11-06] MEDS ORDERED: ALBUMIN HUMAN 5% 12.5 GM/250 ML VIAL IV ONE (19:11)
[2018-11-06] MEDS ORDERED: METOCLOPRAMIDE HCL INJ 5 MG/ML 2 ML VIAL IV PRN (19:58)
[2018-11-06] MEDS ORDERED: PROMETHAZINE HCL 12.5 MG in SODIUM CHLORIDE 0.9% 50 ML IV PRN (19:58)
[2018-11-06] MEDS ORDERED: DEXAMETHASONE SOD INJ 4 MG/ML VIAL IV PRN (19:58)
[2018-11-06] MEDS ORDERED: METOCLOPRAMIDE HCL INJ 5 MG/ML 2 ML VIAL ONE (20:05)
--- NOTE | 2018-11-06 20:13 | Anesthesiology Progress Note ---
Date of Service November 06, 2018 Anesthesia Post Procedure Vital Signs Vital Signs: Temp Pulse Pulse Resp BP BP Pulse Ox 11/06/18 16:10 36.7 C 87 18 126/69 98 11/06/18 15:40 87 18 123/62 98 11/06/18 13:31 36.9 C 89 20 125/69 96 Pain Intensity Right Leg: Pain Intensity: 10 Notes Mental Status: alert / awake / arousable and participated in evaluation Nausea / Vomiting: adequately controlled Pain: adequately controlled Airway Patency, RR, SpO2: stable & adequate BP & HR: stable & adequate Hydration State: stable & adequate Anesthetic Complications: no major complications apparent and Pt Satisfied with anesthetic care Notes: pt BP stable in PACU. tx for Nausea. CBC/BMP ordered
[2018-11-06 20:40] LABS: Hematocrit (blood only) 25.4 % (37-47); Mean Corpuscular Hemoglobin 25.9 pg (25-34); Mean Corpuscular Hgb Conc 31.5 g/dL (32-36); Mean Corpuscular Volume 82.2 fL (80-100); Mean Platelet Volume 9.5 fL (7.4-10.4); Platelet Count 248 K/uL (130-400); RDW Coefficient of Variation 15.6 % (11.5-14.5); RDW Standard Deviation 47.1 fL (36.4-46.3); Red Blood Count 3.09 M/uL (4.2-5.4); White Blood Count 10.42 K/uL (4.8-10.8)
[2018-11-06 20:49] LABS: BUN Creatinine Ratio 15.2 (10-20); Creatinine Clr Calc Pharmacy 73.8 ml/min; Est GFR (African American) 97.4; Potassium 4.1 mmol/L (3.5-5.1)
[2018-11-06] MEDS ORDERED: IPRATROPIUM BROMIDE/ALBUTEROL respimat INH INH PRN (21:28)
[2018-11-06] MEDS ORDERED: TRAMADOL HCL 50 MG TABLET PO PRN (21:28)
[2018-11-06] MEDS ORDERED: FLUTICASONE PROPIONATE NA SPR 16 GM BTL PRN (21:28)
[2018-11-06 22:14] LABS: Basophils # (auto) 0.02 K/uL (0-0.2); Basophils % (auto) 0.2 %; Eosinophils # (auto) 0.13 K/uL (0-0.5); Eosinophils % (auto) 1.2 %; Immature Granulocytes # (auto) 0.03 K/uL (0.00-0.02); Immature Granulocytes % (auto) 0.3 %; Lymphocytes # (auto) 0.97 K/uL (1.2-3.4); Lymphocytes % (auto) 9.3 %; Monocytes # (auto) 0.26 K/uL (0.11-0.59); Monocytes % (auto) 2.5 %; Neutrophils # (auto) 9.01 K/uL (1.4-6.5); Neutrophils % (auto) 86.5 %
--- NOTE | 2018-11-06 22:27 | Critical Care Consultation ---
Date of Consultation November 06, 2018 History of Present Illness Attending Physician: Alex Jara MD Allergies Allergy/AdvReac Type Severity Reaction Status Date / Time Penicillins Allergy Mild Vomiting Verified 11/06/18 15:02 gluten AdvReac Mild unknown Unverified 11/06/18 15:02 nitroglycerin AdvReac Mild DECREASED Verified 11/06/18 15:02 BP hydrocodone [From Lortab] AdvReac Vomiting Verified 11/06/18 15:02 Home Medications Home Medications Medication Instructions Recorded Confirmed Type aspirin 81 mg PO DAILY 11/06/18 11/06/18 History atorvastatin 40 mg PO DAILY 11/06/18 11/06/18 History buspirone 15 mg PO BID 11/06/18 11/06/18 History carvedilol 3.125 mg PO BID 11/06/18 11/06/18 History clopidogrel 75 mg PO DAILY 11/06/18 11/06/18 History fluticasone propionate 1 spray INTRANASAL DAILY PRN 11/06/18 11/06/18 History furosemide 40 mg PO DAILY 11/06/18 11/06/18 History gabapentin 100 mg PO TID 11/06/18 11/06/18 History glipizide 10 mg PO BID 11/06/18 11/06/18 History ipratropium-albuterol 2 puff INHALATION Q4H PRN 11/06/18 11/06/18 History lisinopril 2.5 mg PO DAILY 11/06/18 11/06/18 History loratadine 10 mg PO DAILY 11/06/18 11/06/18 History omeprazole 40 mg PO BID 11/06/18 11/06/18 History pioglitazone 30 mg PO QAM 11/06/18 11/06/18 History tramadol 50 mg PO Q6H PRN 11/06/18 11/06/18 History Patient History Medical History Critical limb ischemia with history of revascularization of same extremity (Acute) RLE COPD (chronic obstructive pulmonary disease) CVA (cerebral vascular accident) Coronary artery disease, occlusive Diabetes mellitus type 2 with atherosclerosis of arteries of extremities H/O: hysterectomy HTN (hypertension) Hyperlipidemia Insulin dependent diabetes mellitus Myocardial infarction x2 with stent PVD (peripheral vascular disease) Tobacco use disorder, continuous 2ppd Surgical History Status post carotid endarterectomy right Status post femoral-popliteal bypass surgery 2004 Social History Feels Safe at Home: Yes Smoking Status: Current every day smoker Cigarettes Per Day: 2ppd ; Do You Dip or Chew Tobacco: No ; Hx Alcohol Use: No Hx Substance Use: No Results & Data Vital Signs (Past 12 Hours) Vital Signs Temp Pulse Pulse Pulse Resp BP BP 11/06/18 22:00 36.6 C 86 18 83/51 L 11/06/18 20:50 77 19 11/06/18 20:40 81 13 11/06/18 20:30 36.4 C L 83 14 11/06/18 20:20 85 17 11/06/18 20:10 88 20 11/06/18 20:00 93 H 20 11/06/18 19:50 36.2 C L 89 20 11/06/18 16:10 36.7 C 87 18 126/69 11/06/18 15:40 87 18 123/62 11/06/18 13:31 36.9 C 89 20 125/69 BP Pulse Ox 11/06/18 22:00 127/53 L 100 11/06/18 20:50 115/46 L 97 11/06/18 20:40 118/47 L 99 11/06/18 20:30 111/45 L 97 11/06/18 20:20 115/63 100 11/06/18 20:10 114/64 100 11/06/18 20:00 134/51 L 100 11/06/18 19:50 93/44 L 100 11/06/18 16:10 98 11/06/18 15:40 98 11/06/18 13:31 96 PG Care Time/CCT Total # of Minutes Spent Total Time Spent with Patient: Total time spent is greater than 50% in coordination of care (as documented) at patient's floor/unit and/or counseling patient:
[2018-11-06] MEDS: BusPIRone 15 MG TAB PO SCH (22:28)
[2018-11-06] MEDS: GABAPENTIN 100 MG CAP PO SCH (22:29)
[2018-11-06] MEDS: CARVEDILOL 3.125 MG TAB PO SCH (22:29)
[2018-11-06] MEDS: PANTOprazole 40 MG TAB PO SCH (22:30)
[2018-11-06] MEDS: MoRPHine SULFATE 4 MG/ML 1 ML CARP\\VIAL IV PRN (22:31)
[2018-11-06 22:32] LABS: Partial Thromboplastin Ratio 1.8
--- NOTE | 2018-11-06 23:25 | Emergency Department Note ---
ED Visit Note HPI: 68F with pmhx of fem-fem bypass here with worsening RLE pain with outpatient US concerning for occlusion of bypass. PE: AFVSS, NAD Ext: Right foot is cool, mottled, absent DP pulse with doppler. Plan: Vascular surgery consulted. CTA confirms Fem-fem bypass occlusion as well as occlusion anterior tibial a. and DP. Heparin gtt. Admitted to OR with Vascular surgery, Dr. Jara. I reviewed the patient's past medical history, medications, and visit nursing notes. I discussed the case with the physician sales assistant, examined the patient, and agree with the findings and plan as documented in the PAC Otis's note.
[2018-11-07] MEDS: CLINDAMYCIN 600 MG in DEXTROSE 5% 50 ML IV SCH ×3 (02:01→18:32)
[2018-11-07] MEDS: MoRPHine SULFATE 4 MG/ML 1 ML CARP\\VIAL IV PRN (04:38)
[2018-11-07 04:51] LABS: Hematocrit (blood only) 29.1 % (37-47); Hemoglobin 9.2 g/dL (12.0-16.0); Immature Granulocytes # (auto) 0.03 K/uL (0.00-0.02); Immature Granulocytes % (auto) 0.3 %; Lymphocytes # (auto) 0.61 K/uL (1.2-3.4); Lymphocytes % (auto) 5.8 %; Mean Corpuscular Hemoglobin 26.4 pg (25-34); Mean Corpuscular Hgb Conc 31.6 g/dL (32-36); Mean Corpuscular Volume 83.6 fL (80-100); Mean Platelet Volume 9.3 fL (7.4-10.4); Monocytes # (auto) 0.29 K/uL (0.11-0.59); Monocytes % (auto) 2.7 %; Neutrophils # (auto) 9.62 K/uL (1.4-6.5); Neutrophils % (auto) 91.2 %; Platelet Count 218 K/uL (130-400); RDW Coefficient of Variation 15.8 % (11.5-14.5); RDW Standard Deviation 48.6 fL (36.4-46.3); Red Blood Count 3.48 M/uL (4.2-5.4); White Blood Count 10.55 K/uL (4.8-10.8)
[2018-11-07 05:09] LABS: BUN Creatinine Ratio 14.6 (10-20); Calcium 7.8 mg/dl (8.5-10.1); Creatinine Clr Calc Pharmacy 76.9 ml/min; Est GFR (African American) 102.5; Est GFR (Non-African American) 88.4; Magnesium 1.8 mg/dl (1.8-2.4); Phosphorus 4.1 mg/dl (2.5-4.9); Potassium 4.4 mmol/L (3.5-5.1)
[2018-11-07 07:21] LABS: Partial Thromboplastin Time 134.5 Seconds (21.0-31.0)
--- NOTE | 2018-11-07 07:33 | Surgery Progress Note ---
Date of Service November 07, 2018 Assessment & Plan (1) Pain of right lower extremity due to ischemia: This patient is postoperative day 1 of thrombectomy and revision of the distal anastomosis of her femorofemoral bypass. She is doing extremely well. We will start her on low-dose Xarelto and transferred to the floor. Heparin will be DC'd at this time. Hopefully we can discharge her if she feels up to it tomorrow. Subjective The patient this morning states that she could feel her foot. She is able to wiggle her toes and has no pain in the right lower extremity. Physical Exam Physical Exam: The dressing on the incision is dry and clean. She has a good Doppler pulse in the right foot. Right foot is pink with good capillary refill. She is able to wiggle her toes. She has good sensation is able to feel touch to her toes. She does have difficulty dorsiflexing her right foot because she claims this is been a chronic problem. Respiratory: normal respiratory effort; no respiratory distress Cardiovascular: Rate/Rhythm: regular rate and regular rhythm Results & Data Vital Signs (Past 12 Hours) Vital Signs Temp Pulse Pulse Resp BP BP BP 11/07/18 06:00 70 18 117/50 L 11/07/18 05:00 36.8 C 72 16 120/52 L 11/07/18 04:00 36.8 C 71 16 111/68 109/47 L 11/07/18 03:00 71 16 111/47 L 11/07/18 02:00 36.6 C 75 16 115/52 L 11/07/18 01:45 36.6 C 75 15 120/53 L 11/07/18 01:00 36.6 C 68 16 108/59 L 110/49 L 11/07/18 00:20 74 12 11/07/18 00:15 72 13 108/66 11/07/18 00:10 76 15 11/07/18 00:00 36.6 C 78 72 13 110/60 108/46 L 107/47 L 11/06/18 23:50 76 18 11/06/18 23:45 76 17 120/57 L 11/06/18 23:40 82 11 L 11/06/18 23:30 72 13 103/66 11/06/18 23:20 76 13 11/06/18 23:15 75 14 112/62 11/06/18 23:10 79 14 11/06/18 23:00 36.6 C 75 79 13 135/52 L 104/42 L 11/06/18 22:50 82 12 11/06/18 22:46 86 11 L 116/77 11/06/18 22:40 82 9 L 11/06/18 22:34 36.6 C 84 14 122/49 L 11/06/18 22:30 84 14 133/66 11/06/18 22:20 85 19 11/06/18 22:15 86 14 122/71 11/06/18 22:10 87 12 11/06/18 22:01 85 10 L 83/51 L 11/06/18 22:00 36.6 C 85 86 16 83/51 L 127/53 L 11/06/18 21:50 84 9 L 11/06/18 21:46 85 11 L 123/64 11/06/18 21:40 83 10 L 11/06/18 21:31 88 12 114/96 11/06/18 21:30 89 15 11/06/18 21:20 86 15 109/52 L 11/06/18 21:15 87 9 L 11/06/18 20:50 77 19 115/46 L 11/06/18 20:40 81 13 118/47 L 11/06/18 20:30 36.4 C L 83 14 111/45 L 11/06/18 20:20 85 17 115/63 11/06/18 20:10 88 20 114/64 11/06/18 20:00 93 H 20 134/51 L 11/06/18 19:50 36.2 C L 89 20 93/44 L Pulse Ox 11/07/18 06:00 100 11/07/18 05:00 100 11/07/18 04:00 100 11/07/18 03:00 100 11/07/18 02:00 100 11/07/18 01:45 100 11/07/18 01:00 100 11/07/18 00:20 100 11/07/18 00:15 100 11/07/18 00:10 100 11/07/18 00:00 100 11/06/18 23:50 100 11/06/18 23:45 100 11/06/18 23:40 100 11/06/18 23:30 100 11/06/18 23:20 100 11/06/18 23:15 100 11/06/18 23:10 100 11/06/18 23:00 100 11/06/18 22:50 100 11/06/18 22:46 100 11/06/18 22:40 100 11/06/18 22:34 99 11/06/18 22:30 100 11/06/18 22:20 100 11/06/18 22:15 100 11/06/18 22:10 90 11/06/18 22:01 100 11/06/18 22:00 100 11/06/18 21:50 100 11/06/18 21:46 11/06/18 21:40 11/06/18 21:31 99 11/06/18 21:30 100 11/06/18 21:20 100 11/06/18 21:15 11/06/18 20:50 97 11/06/18 20:40 99 11/06/18 20:30 97 11/06/18 20:20 100 11/06/18 20:10 100 11/06/18 20:00 100 11/06/18 19:50 100
[2018-11-07] MEDS: CARVEDILOL 3.125 MG TAB PO SCH ×2 (07:40→22:06)
[2018-11-07] MEDS: BusPIRone 15 MG TAB PO SCH ×2 (07:41→22:32)
[2018-11-07] MEDS: LORATADINE 10 MG TAB PO SCH (07:41)
[2018-11-07] MEDS: PANTOprazole 40 MG TAB PO SCH ×2 (07:41→22:39)
[2018-11-07] MEDS: GABAPENTIN 100 MG CAP PO SCH ×3 (07:41→22:32)
[2018-11-07] MEDS: ATORVASTATIN 40 MG TAB PO SCH (07:42)
[2018-11-07] MEDS: glipiZIDE 5 MG TAB PO SCH ×2 (07:42→17:50)
[2018-11-07] MEDS: CLOPIDOGREL BISULFATE 75 MG TAB PO SCH (07:43)
[2018-11-07] MEDS: ASPIRIN 81 MG ECTAB PO SCH (07:44)
[2018-11-07] MEDS: TRAMADOL HCL 50 MG TABLET PO PRN ×2 (07:50→13:25)
[2018-11-07] MEDS: ONDANSETRON INJ 2 MG/ML 2 ML VIAL IV PRN (07:51)
--- NOTE | 2018-11-07 08:08 | Anesthesiology Progress Note ---
Date of Service November 07, 2018 Anesthesia Post Procedure Vital Signs Vital Signs: Temp Pulse Pulse Pulse Resp BP BP 11/07/18 06:00 70 18 11/07/18 05:00 36.8 C 72 16 11/07/18 04:00 36.8 C 71 16 111/68 11/07/18 03:00 71 16 11/07/18 02:00 36.6 C 75 16 11/07/18 01:45 36.6 C 75 15 120/53 L 11/07/18 01:00 36.6 C 68 16 108/59 L 11/07/18 00:20 74 12 11/07/18 00:15 72 13 108/66 11/07/18 00:10 76 15 11/07/18 00:00 36.6 C 78 72 13 110/60 108/46 L 11/06/18 23:50 76 18 11/06/18 23:45 76 17 120/57 L 11/06/18 23:40 82 11 L 11/06/18 23:30 72 13 103/66 11/06/18 23:20 76 13 11/06/18 23:15 75 14 112/62 11/06/18 23:10 79 14 11/06/18 23:00 36.6 C 75 79 13 135/52 L 11/06/18 22:50 82 12 11/06/18 22:46 86 11 L 116/77 11/06/18 22:40 82 9 L 11/06/18 22:34 36.6 C 84 14 122/49 L 11/06/18 22:30 84 14 133/66 11/06/18 22:20 85 19 11/06/18 22:15 86 14 122/71 11/06/18 22:10 87 12 11/06/18 22:01 85 10 L 83/51 L 11/06/18 22:00 36.6 C 85 86 16 83/51 L 11/06/18 21:50 84 9 L 11/06/18 21:46 85 11 L 123/64 11/06/18 21:40 83 10 L 11/06/18 21:31 88 12 114/96 11/06/18 21:30 89 15 11/06/18 21:20 86 15 109/52 L 11/06/18 21:15 87 9 L 08/26/19 20:50 77 19 11/06/18 20:40 81 13 11/06/18 20:30 36.4 C L 83 14 11/06/18 20:20 85 17 11/06/18 20:10 88 20 11/06/18 20:00 93 H 20 11/06/18 19:50 36.2 C L 89 20 11/06/18 16:10 36.7 C 87 18 126/69 11/06/18 15:50 84 13 123/62 11/06/18 15:40 81 87 12 123/62 11/06/18 15:30 83 15 11/06/18 15:25 90 10 L 11/06/18 14:50 79 14 11/06/18 14:45 78 12 113/64 11/06/18 14:40 80 15 11/06/18 14:30 73 17 11/06/18 14:20 79 16 11/06/18 14:18 92 H 19 11/06/18 14:13 83 21 125/64 11/06/18 13:31 36.9 C 89 20 125/69 BP Pulse Ox 11/07/18 06:00 117/50 L 100 11/07/18 05:00 120/52 L 100 11/07/18 04:00 109/47 L 100 11/07/18 03:00 111/47 L 100 11/07/18 02:00 115/52 L 100 11/07/18 01:45 100 11/07/18 01:00 110/49 L 100 11/07/18 00:20 100 11/07/18 00:15 100 11/07/18 00:10 100 11/07/18 00:00 107/47 L 100 11/06/18 23:50 100 11/06/18 23:45 100 11/06/18 23:40 100 11/06/18 23:30 100 11/06/18 23:20 100 11/06/18 23:15 100 11/06/18 23:10 100 11/06/18 23:00 104/42 L 100 11/06/18 22:50 100 11/06/18 22:46 100 11/06/18 22:40 100 11/06/18 22:34 99 11/06/18 22:30 100 11/06/18 22:20 100 11/06/18 22:15 100 11/06/18 22:10 90 11/06/18 22:01 100 11/06/18 22:00 127/53 L 100 11/06/18 21:50 100 11/06/18 21:46 11/06/18 21:40 11/06/18 21:31 99 11/06/18 21:30 100 11/06/18 21:20 100 11/06/18 21:15 11/06/18 20:50 115/46 L 97 11/06/18 20:40 118/47 L 99 11/06/18 20:30 111/45 L 97 11/06/18 20:20 115/63 100 11/06/18 20:10 114/64 100 11/06/18 20:00 134/51 L 100 11/06/18 19:50 93/44 L 100 11/06/18 16:10 98 11/06/18 15:50 99 11/06/18 15:40 99 11/06/18 15:30 97 11/06/18 15:25 96 11/06/18 14:50 98 11/06/18 14:45 97 11/06/18 14:40 11/06/18 14:30 97 11/06/18 14:20 97 11/06/18 14:18 94 11/06/18 14:13 99 11/06/18 13:31 96 Pain Intensity Right Leg: Pain Intensity: 10 Right Groin: Pain Intensity: 10 Notes Mental Status: alert / awake / arousable and participated in evaluation Patient Amnestic to Procedure: Yes Nausea / Vomiting: adequately controlled Pain: adequately controlled Airway Patency, RR, SpO2: stable & adequate BP & HR: stable & adequate Hydration State: stable & adequate Anesthetic Complications: no major complications apparent and Pt Satisfied with anesthetic care
[2018-11-07] MEDS: NICOTINE 21 MG/24 HR TDSY TD SCH (08:14)
[2018-11-07] MEDS ORDERED: FUROSEMIDE 40 MG TAB PO SCH (09:00)
[2018-11-07] MEDS ORDERED: PIOGLITAZONE HCL 15 MG TAB PO SCH (09:00)
[2018-11-07] MEDS ORDERED: LISINOPRIL 2.5 MG TAB PO SCH (09:00)
[2018-11-07] MEDS: RIVAROXABAN 2.5 MG TAB PO SCH ×2 (11:20→22:38)
[2018-11-07] MEDS ORDERED: Heparin Adult STANDARD Wt-Based Dextrose 5% 25,000 units/500 mL IV SCH (15:45)
[2018-11-07] MEDS ORDERED: OXYCODONE/ACETAMINOPHEN 5mg/325mg TAB PO PRN (17:17)
--- NOTE | 2018-11-07 17:47 | Critical Care Progress Note ---
Date of Service November 07, 2018 Assessment & Plan (1) Pain of right lower extremity due to ischemia: Reason Critically Ill: 68-year-old female here with a PMHx significant for COPD, DM, HTN, HLD, CAD, stroke, PVD, tobacco abuse who presented with right lower extremity progressive pain and who was admitted for right femoropopliteal bypass graft occlusion s/p surgical intervention. Neuro - [facility] ICU: NEGATIVE History of stroke without residual deficit No acute mentation concerns. -Continue aspirin and Plavix dual antiplatelet therapy Cardiac/vascular- Right lower extremity ischemia 2/2 femoral popliteal bypass occlusion s/P thrombectomy and revision of distal anastomoses 11/06/2018 Right lower extremity without pain and neurovascularly intact with good pulses on exam today Stable for downgrade, will be started on Xarelto per surgery recommendations CAD with history of PCI in the setting of hypertension and hyperlipidemia - [employer] Atorvastatin 40 - [employer] Carvedilol 3.125mg BID - [employer] lasix 40mg daily Respiratory - COPD with history of tobacco use DuoNeb every 4 hours as needed No home O2 requirement Titrate O2 NC for SPO2 greater than 88% GI - Heart healthy diet RENAL/LYTES - Sodium 140, potassium 4.4 Creatinine 0.7 No acute electrolyte abnormalities, electro lites as needed per protocol - No concerns at this time. ENDO - T2DM - Hold [employer] glipidize 10mg PO BID - Hold [employer] pioglitazone 30mg PO qAM SSI hyperglycemia protocol, glucose checks AC/at bedtime BMP daily HEME - Stable hemoglobin, 9.2 Will monitor for any drops in the setting of Heparin gtt ID - No concerns for infection at this point. INTEGUMENTARY - Right femoral access surgical incision well-dressed, C/D/I. No other acute concerns. LINES/IV ACCESS - PIVs intact. DVT PROPHYLAXIS - Patient to start rivaroxaban 2.5 mg p.o. twice daily Thank you for allowing us to be part of this patient's care. Please refer to Dr. Lin's documentation for any further recommendations. Supervising Physician Co-Signing Physician Notes Dr. Sanz was resident physician during care of patient. I separately evaluated patient for maharaj portions of the history and the exam. I was present during the critical portion of medical decision making, and I discussed the case with the resident. I generally agree with the findings and plan. Radha Laguerre reports she feels well this morning following her surgery. Her pain has resolved and she has sensation in her foot and toes. She is able to flex and extend her ankle, and flex and extend her toes without difficulty. She has some postsurgical discomfort over her incision at the right femoral access point, otherwise denies pain. Denies fever, chills, sweats, chest pain, chest pressure, headache, lightheadedness, dizziness, numbness, tingling, rash, calf pain, vision change at time of visit. No questions or concerns this morning. Review of Systems Review of Systems: Constitutional: Denies fever, chills, malaise Eyes: Denies double vision, vision change, eye pain ENT: Denies ear pain, sore throat, sinus pain Cardiovascular: Denies Chest pain, chest pressure, palpitations, extremity swelling Respiratory: Denies shortness of breath, difficulty breathing. Endorses intermittent cough with occasional light sputum production at baseline. Gastrointestinal: Denies abdominal pain, nausea, vomiting, constipation, diarrhea Genitourinary: Denies pain with urination, urinary urgency, urinary frequency Musculoskeletal: Endorses postsurgical pain as noted in HPI, otherwise denies pain. Integumentary:Denies rash, bruising Neurological: Denies headache, numbness, tingling Physical Exam Physical Exam: General: A&Ox3. NAD. Cooperative. Thought process linear, goal-directed. Speech fluent. HEENT: Atraumatic, normocephalic. No facial asymmetry. Pupils equal and reactive to light and accommodation. Extraocular movements intact without nystagmus. No visual field cuts. Acuity grossly intact. No scleral icterus. Pulm: Diffuse expiratory wheezing with mild rhonchi. No rales. Moderate air movement. Symmetrical chest rise with no increased work of breathing. No respiratory distress. Cardiac: RRR, -mrg. Radial pulses intact and symmetrical. Abdominal: Nontender, nondistended, soft. BS present. Extremity: Right lower extremity warm, well-perfused, capillary refill less than 2 seconds. Sensation to soft touch and proprioception intact in all toes and foot bilaterally. 5/5 strength to ankle plantarflexion/dorsiflexion bilaterally. PT pulse intact to palpation bilaterally. Results & Data Vital Signs (Past 12 Hours) Vital Signs Temp Pulse Pulse Pulse Resp BP BP 11/07/18 11:01 75 101/66 11/07/18 10:26 11/07/18 09:20 36.7 C 75 18 11/07/18 08:00 36.7 C 81 12 131/62 11/07/18 06:00 70 18 BP Pulse Ox 11/07/18 11:01 11/07/18 10:26 101/66 11/07/18 09:20 93/61 L 91 11/07/18 08:00 11/07/18 06:00 117/50 L 100 PG Care Time/CCT Total # of Minutes Spent Total Time Spent with Patient: Total time spent is greater than 50% in coordination of care (as documented) at patient's floor/unit and/or counseling patient: Resident Activity Tracking Resident Involvement: Resident Care Provided Care Provided: Adult Hospital Medicine
--- NOTE | 2018-11-07 18:02 | Operative Report ---
Post Operative Report Pre & Post Diagnosis Operation Date: 11/06/18 11:20 Pre-Op Diagnosis: Pain of right lower extremity due to ischemia Post-Op Diagnosis: ischemic right leg Procedure Operation Date: 11/06/18 11:20 Actual Procedures p Thrombectomy, Femoral-Femoral Bypass, Patch Angioplasty of Distal Anastamosis(Bilateral) - Alex Jara MD Surgeon Alex Jara MD Continuous Towel Roller MD Magaly Estimated Blood Loss 400 Findings Consistent with Post-Op Diagnosis Fluids 1700cc crystalloid, 250cc albumin Specimens none Drains none Anesthesia Type General Complications none Disposition Accompanied Patient To Recovery: No Disposition: Recovery Room Indications right lower extremity ischemia Description of Procedure The patient was taken to the operating room and placed in the supine position. The patient's identity and surgical site were verified. The abdomen and bilateral groins were prepped and draped in the usual sterile fashion. A time- out was performed. An incision was made in the right groin over her prior scar. The right side of the femorofemoral graft was dissected out and circumferential control was obtained. The dissection was carried down to expose the right femorofemoral anastomosis, common femoral artery, superficial femoral artery, and profunda femoris artery. The patient was heparinized The superficial femoral and profunda femoris arteries were clamped. Using a scalpel a darwin was made in the chin of the graft. This was extended proximally along the graft and distally through the anastomosis and down the remainder of the common femoral artery. No flow from the femorofemoral bypass was noted; clot was noted coming from the graft. No flow was noted from the common femoral artery from the site of the end-to-side anastomosis. A small trickle of flow of backbleeding from the profunda femoris and superficial femoral arteries was noted when they were briefly unclamped. An endarterectomy was performed and the backbleeding from the profunda and superficial femoral arteries improved somewhat. A 5-0 frieda was passed up through the femorofemoral graft and a long string of clot was obtained. Along with this came brisk arterial flow. The 5-0 frieda was passed until no further clot was withdrawn. A 4-0 frieda was then passed through the graft and on the left we could feel it going down into the origin of the superficial femoral on that side. This was slowly withdrawn but no further clot was pulled out. We clamped the graft. At this time when we unclamped the right superficial femoral and right profunda femoris arteries brisk, pulsatile backbleeding was noted. We passed a 3-0 frieda catheter down the superficial femoral artery but no thrombus was obtained. We re-clamped the superficial femoral artery and performed a patch repair of our arteriotomy with a bovine pericardial patch and 5-0 prolene. Prior to placing the last sutures the graft, superficial femoral, and profunda femoris arteries were allowed to backbleed. The graft was flushed with heparinized saline. The patch was completed and the clamps were released. Pulsatile flow was palpable over the graft, area of the patch, and down the proximal superficial femoral and profunda femoris arteries; this was confirmed with insonation using the doppler. Hemostasis was obtained and the right groin was closed in layers using 2-0 vicryl for the fascia, 3-0 vicryl for the dermis, and 4-0 monocryl for the skin. A clean gauze bandage was placed. Dorsalis pedis and posterior tibialis signals were appreciated on doppler insonation. At the conclusion of the case all instrument, needle, and sponge counts were correct. The patient tolerated the procedure well and was taken to the recovery room in satisfactory condiiton. Dr. Jara was present and scrubbed for the entire procedure. I attest to the content of the Intraoperative Record and any orders documented therein. Any exceptions are noted below.
[2018-11-07] MEDS ORDERED: SODIUM CHLORIDE 0.9% 1000ML 500 ML IV ONE (22:01)
[2018-11-07] MEDS ORDERED: ACETAMINOPHEN 1,000 MG/100 ML VIAL IV STA (22:19)
[2018-11-07] MEDS ORDERED: SODIUM CHLORIDE 0.9% 1000ML 1,000 ML IV SCH (22:30)
[2018-11-07 22:34] LABS: Basophils # (auto) 0.01 K/uL (0-0.2); Basophils % (auto) 0.1 %; Eosinophils % (auto) 0.9 %; Hematocrit (blood only) 27.4 % (37-47); Hemoglobin 8.8 g/dL (12.0-16.0); Immature Granulocytes # (auto) 0.03 K/uL (0.00-0.02); Immature Granulocytes % (auto) 0.3 %; Lymphocytes # (auto) 2.28 K/uL (1.2-3.4); Lymphocytes % (auto) 20.1 %; Mean Corpuscular Hemoglobin 27.1 pg (25-34); Mean Corpuscular Volume 84.3 fL (80-100); Mean Platelet Volume 9.5 fL (7.4-10.4); Monocytes # (auto) 0.92 K/uL (0.11-0.59); Monocytes % (auto) 8.1 %; Neutrophils # (auto) 8.03 K/uL (1.4-6.5); Neutrophils % (auto) 70.5 %; Nucleated RBC # (auto) 0.02 K/uL (0-0); Nucleated RBC % (auto) 0.2 %; Platelet Count 232 K/uL (130-400); RDW Coefficient of Variation 15.8 % (11.5-14.5); RDW Standard Deviation 49.3 fL (36.4-46.3); Red Blood Count 3.25 M/uL (4.2-5.4); White Blood Count 11.37 K/uL (4.8-10.8)
[2018-11-07 22:35] LABS: Mean Corpuscular Hgb Conc 32.1 g/dL (32-36)
[2018-11-07 22:54] LABS: Alanine Aminotransferase 16 U/L (12-78); Albumin Level 2.8 gm/dl (3.4-5.0); Aspartate Aminotransferase 7 U/L (15-37); BUN Creatinine Ratio 12.4 (10-20); Blood Urea Nitrogen 18 mg/dl (7-18); Calcium 8.4 mg/dl (8.5-10.1); Carbon Dioxide 28 mmol/L (21-32); Chloride 103 mmol/L (98-107); Creatinine Clr Calc Pharmacy 36.6 ml/min; Est GFR (African American) 41.8; Glucose 136 mg/dl (70-99); Magnesium 1.7 mg/dl (1.8-2.4); Potassium 4.6 mmol/L (3.5-5.1); Sodium 136 mmol/L (136-145)
[2018-11-07 23:00] LABS: Albumin Globulin Ratio 0.8 (0.9-2); Alkaline Phosphatase 70 U/L (45-117); Bilirubin,Total 0.6 mg/dl (0.2-1); Globulin 3.3 gm/dl (2.5-4.0); Total Protein 6.1 gm/dl (6.4-8.2); Troponin I < 0.015 ng/ml (0-0.045)
[2018-11-08] MEDS ORDERED: GLUCAGON FOR INJ 1 MG VIAL IM PRN (00:30)
[2018-11-08] MEDS ORDERED: DEXTROSE 50% 50 ML SYRINGE IV PRN (00:30)
[2018-11-08] MEDS ORDERED: GLUCOSE 10 TABS/TUBE PO PRN (00:30)
[2018-11-08] MEDS: SODIUM CHLORIDE 0.9% 1000ML 1,000 ML IV SCH ×2 (00:30→11:08)
[2018-11-08] MEDS ORDERED: CARBOHYDRATES FOR HYPOGLYCEMIA PO PRN (00:30)
[2018-11-08] MEDS ORDERED: GLUCOSE 40% GEL 15 GM TUBE PO PRN (00:30)
--- NOTE | 2018-11-08 00:46 | Consultation Report ---
DATE OF CONSULTATION: 11/07/2018 CHIEF COMPLAINT: Hypotension, right femoral-femoral bypass graft occlusion s/p intervention. HISTORY OF PRESENT ILLNESS: This is a 68-year-old female with past medical history significant for diabetes, hyperlipidemia, asthma, history of CVA, history of CAD, osteoarthritis, depression, generalized anxiety disorder, tobacco use disorder, who came to the ER yesterday because of pain in the right lower extremity and the patient is having this pain for last 2 weeks, getting progressively worse. She had a femoral femoral bypass done in 2004, ultrasound done on Tuesday which showed occlusion of the bypass. She also had carotid endarterectomy done in the right side in the past .Patient is status post thrombectomy and revision of the distal aspect of the femoral-femoral bypass yesterday. She was doing well and she was placed on heparin, initially she was in ICU post procedure.Was doing well and she was transferred to medical floor from the ICU and placed on low-dose Xarelto and planned for discharge tomorrow. Apparently, she did okay the whole day, she ate her dinner most of it. When nursing staff went to give her night medication and checked her blood pressure, it was low, it was like 74/53 and she was not feeling well and she was complaining of blacking out in the eyes and headache and nausea. Fluid bolus was given which brought the blood pressure up to 106/65. She was feeling better. Initially, she has severe nausea, but the nausea is improved, but still she has some significant headache and some blurred visions, but she is alert and oriented x3. Speech is clear. Moves extremities. EKG was done which shows normal sinus rhythm with a rate of [address] changes. Pulse was okay. Lower extremity pulses on bedside Doppler :good posterior tibial artery pulses, bilateral dorsalis pedis very feeble similar to before. Denies any chest pain, no shortness of breath. Denies cough. Only pain is from the surgical site. Did move her bowels today. Micturating fine, afebrile, saturating okay. ALLERGIES: PENICILLINS, MUSHROOM, STRAWBERRY, GLUTEN, NITROGLYCERIN, HYDROCODONE. PAST MEDICAL HISTORY: As mentioned above. PAST SURGICAL HISTORY: Appendectomy, colonoscopy with biopsy, EGDs with biopsy, right intracoronary artery stent placement, partial hysterectomy, repair of the bladder neck, cataract surgery, femoral-femoral bypass surgery in [place] in 2004, right CA in [place] in 2004 and 2005, right redo eversion carotid endarterectomy in 2008, full mouth extraction. MEDICATIONS: The patient is on gabapentin 100 mg p.o. t.i.d., tramadol 50 mg p.o. q. 6 hours p.r.n., vitamin D 5000 units p.o. daily, Prilosec 40 mg p.o. b.i.d., Fosamax 70 mg p.o. weekly, Actos 30 mg p.o. daily, Coreg 3.125 mg p.o. b.i.d., glipizide 10 mg p.o. b.i.d., lisinopril 2.5 mg p.o. daily, Flonase 2 sprays each nostril daily, atorvastatin 40 mg p.o. daily, Plavix 75 mg p.o. daily, loratadine 10 mg p.o. daily p.r.n., Lasix 40 mg p.o. daily, buspirone 5 mg p.o. b.i.d., albuterol 2 puffs q.i.d. p.r.n., Flovent 2 puffs b.i.d., aspirin 81 mg p.o. daily. FAMILY HISTORY: Significant for: Sister has throat cancer. Brother has diabetes. Maternal grandmother has diabetes. Sister has diabetes. Brother had stroke. SOCIAL HISTORY: , smokes 1 pack a day for the last 56 years. No alcohol use, no drug use. On disability. REVIEW OF SYMPTOMS: As per HPI. Rest of review of systems is negative. PHYSICAL EXAMINATION: GENERAL: The patient is of moderate build, currently not in acute distress. VITAL SIGNS: Temperature 36.5, pulse 77, respiratory rate 16, blood pressure was 73/53, currently 106/65, oxygen 100% on 2 liters. HEENT: No pallor, no icterus. NECK: No JVD, no neck masses, no carotid bruits. CARDIOVASCULAR: S1, S2, regular rate and rhythm, no murmur, no gallop. RESPIRATORY SYSTEM: Normal AP diameter. No accessory muscle use. No wheezing, no crackles. ABDOMEN: Soft. No distention, tenderness in the surgical site. CENTRAL NERVOUS SYSTEM: Alert and oriented x3, recent and remote memory intact, obeys commands. Moves extremities. EXTREMITIES: No edema, no erythema seen. Posterior tibial artery on Doppler, pulse sound is heard. Bilateral dorsalis pedis is very feeble. Feet is warm on the right side, somewhat cool on the left side. LABORATORY DATA: WBC 11.3, hemoglobin 8.8, hematocrit 27.4, platelets 232. Chemistry is pending. Lactic acid is pending. EKG: Normal sinus rhythm, rate of 88, nonspecific ST changes seen. ASSESSMENT AND PLAN: This is a 68-year-old female who presents with right lower extremity ischemia, status post thrombectomy and revision of the distal end of femoral-femoral bypass, postop day 1, transferred from ICU to medical floor. Later in the day, she developed hypotension, not feeling well. 1. Hypotension. The patient was having headaches, some blurred visions, initial nausea. Nausea is improving. She is feeling little better. Blood pressure improved with fluid boluses. We will hold the Lasix. We will hold lisinopril. We will continue IV fluids, normal saline 100 mL per hour and transfer to medical floor and follow the labs closely. Hemoglobin is 8.8. We will follow the chemistries. 2. Right lower extremity ischemia, secondary to previous right femoral femoral bypass graft occlusion, status post surgical intervention, status post thrombectomy and revision of distal aspect of femoral-femoral bypass and currently on low-dose Xarelto, on clindamycin. Further management as per vascular surgery. 3. History of diabetes. We will hold her home p.o. medication, place on Lantus 5 units b.i.d. and insulin sliding scale. Follow HbA1c levels, follow the blood sugars. 4. History of hypertension, currently hypotension, getting fluid bolus. Holding the Lasix and holding the lisinopril, Coreg with holding parameters. 5. Hyperlipidemia. Continue statin. 6. History of coronary artery disease. Continue statin, aspirin. Coreg with holding parameters. Continue Plavix. 7. History of peripheral vascular disease, on aspirin, Plavix and statin. 8. History of cerebrovascular accident. Continue aspirin, Plavix and statin. 9. History of diastolic congestive heart failure, ejection fraction of 50-55% on echo done in 2014 and moderate mitral regurgitation, on Lasix and lisinopril which were currently held. Getting fluids. We will monitor for any volume overload. 10. Gastroesophageal reflux disease. Continue PPI. 11. Asthma, currently stable. Continue her inhalers. 12. Generalized anxiety disorder and depression, continue buspirone. 13. Deep venous thrombosis prophylaxis. Continue Xarelto. 14. Disposition: Transferred to tele floor. PT and OT and disposition as per vascular surgery. MTDD
[2018-11-08] MEDS ORDERED: MAGNESIUM SULFATE / D5W 1 GM/100 ML BAG IV ONE (02:15)
[2018-11-08 05:36] LABS: Basophils # (auto) 0.03 K/uL (0-0.2); Basophils % (auto) 0.3 %; Eosinophils # (auto) 0.14 K/uL (0-0.5); Eosinophils % (auto) 1.4 %; Hematocrit (blood only) 25.8 % (37-47); Hemoglobin 8.2 g/dL (12.0-16.0); Immature Granulocytes # (auto) 0.03 K/uL (0.00-0.02); Immature Granulocytes % (auto) 0.3 %; Lymphocytes # (auto) 2.26 K/uL (1.2-3.4); Lymphocytes % (auto) 23.3 %; Mean Corpuscular Hemoglobin 26.5 pg (25-34); Mean Corpuscular Hgb Conc 31.8 g/dL (32-36); Mean Corpuscular Volume 83.5 fL (80-100); Mean Platelet Volume 9.3 fL (7.4-10.4); Monocytes # (auto) 0.76 K/uL (0.11-0.59); Monocytes % (auto) 7.8 %; Neutrophils # (auto) 6.49 K/uL (1.4-6.5); Neutrophils % (auto) 66.9 %; Platelet Count 208 K/uL (130-400); RDW Coefficient of Variation 15.9 % (11.5-14.5); RDW Standard Deviation 48.9 fL (36.4-46.3); Red Blood Count 3.09 M/uL (4.2-5.4); White Blood Count 9.71 K/uL (4.8-10.8)
[2018-11-08 06:04] LABS: Estimated Average Glucose 146 mg/dl; Hemoglobin A1C 6.7 % (4.5-5.6)
[2018-11-08 06:08] LABS: BUN Creatinine Ratio 14.2 (10-20); Creatinine Clr Calc Pharmacy 41.7 ml/min; Est GFR (African American) 48.9; Est GFR (Non-African American) 42.2; Magnesium 2.1 mg/dl (1.8-2.4); Potassium 4.1 mmol/L (3.5-5.1)
[2018-11-08] MEDS: BusPIRone 15 MG TAB PO SCH ×2 (08:05→20:06)
[2018-11-08] MEDS: RIVAROXABAN 2.5 MG TAB PO SCH ×2 (08:05→20:04)
[2018-11-08] MEDS: GABAPENTIN 100 MG CAP PO SCH ×3 (08:06→20:04)
[2018-11-08] MEDS: ASPIRIN 81 MG ECTAB PO SCH (08:06)
[2018-11-08] MEDS: LORATADINE 10 MG TAB PO SCH (08:07)
[2018-11-08] MEDS: ATORVASTATIN 40 MG TAB PO SCH (08:07)
[2018-11-08] MEDS: CLOPIDOGREL BISULFATE 75 MG TAB PO SCH (08:07)
[2018-11-08] MEDS: PANTOprazole 40 MG TAB PO SCH ×2 (08:07→20:05)
[2018-11-08] MEDS: CARVEDILOL 3.125 MG TAB PO SCH ×2 (08:09→20:06)
[2018-11-08] MEDS: NICOTINE 21 MG/24 HR TDSY TD SCH (08:13)
[2018-11-08] MEDS: INSULIN ASPART 100 UNITS/ML 3 ML PEN SC SCH ×4 (08:53→20:48)
[2018-11-08] MEDS: INSULIN GLARGINE SOLOSTAR 100 UNITS/ML 3 ML PEN SC SCH ×2 (08:54→20:47)
[2018-11-08] MEDS: OXYCODONE/ACETAMINOPHEN 5mg/325mg TAB PO PRN ×3 (12:07→23:55)
--- NOTE | 2018-11-08 13:22 | Surgery Progress Note ---
Date of Service November 08, 2018 Assessment & Plan (1) Pain of right lower extremity due to ischemia: Pt doing ok post op. Did have episode of nausea and hypotension last night, which seems improved. D/T concerns for ability to take care of herself at home, recommend pt consider short term rehab. Subjective 68 yo f POD #2 after R fem art endart and thrombectomy of fem fem BPG, seen in f/u today. Pt c/o severe pain in R groin and states is unable to move without help. Has only been OOB to bedside commode. No new complaints. Lives at home by herself. Review of Systems Review of Systems: All systems reviewed & are unremarkable except as noted in HPI & below Physical Exam Constitutional: WD/WN, vitals as above well developed and well nourished Respiratory: normal respiratory effort; no respiratory distress Cardiovascular: Rate/Rhythm: regular rate and regular rhythm Gastrointestinal (Abdomen): Inspection/Auscultation: abdomen normal to inspection; abdomen not distended Percussion/Palpation: abdomen nontender Skin: + incision (R groin intact, +tender, ecchymosis,); no induration, no erythema and no fluctulance Psychiatric: A+Ox3, euthymic affect Results & Data Vital Signs (Past 12 Hours) Vital Signs Temp Pulse Resp BP Pulse Ox 11/08/18 11:54 36.8 C 69 18 121/69 94 11/08/18 07:47 36.8 C 76 20 115/69 96 11/08/18 03:34 36.8 C 80 18 107/74 99
--- NOTE | 2018-11-08 16:37 | Hospitalist Progress Note ---
Date of Service November 08, 2018 Assessment & Plan (1) Pain of right lower extremity due to ischemia: S/P day 2 thrombectomy and revision of the distal end of femoral-femoral bypass performed by Dr. Jara Management per vascular surgery Continue xarelto, aspirin and plavix Monitor hgb PT to assess for ambulation due to the pain in RLE Hypotension. Possible related to Hypovolemia and narcotic Received IV fluid and decreased percocet BP improved Lasix, Lisinopril on hold Continue monitor BP closely Diabetes. Hba1c 6.7 Oral DM med on hold Refused any insulin Will resume glipizide in am since pt refused any insulin sliding scale Continue Monitor BS History Hypertension Was hypotension last night Continue to hold lasix and Lisinopril Continue Carvedilol BP stable Hyperlipidemia. Continue statin. CAD Continue statin, aspirin, plavix and Coreg Stable History of cerebrovascular accident. Continue aspirin, Plavix and statin. History of diastolic congestive heart failure Echo on 2014 showed ejection fraction of 50-55% wiith moderate mitral regurgitation Received IVF and Lasix on hold Will monitor for sign of fluid overload GERD Continue PPI. Generalized anxiety disorder/Depression continue buspirone. Stable Deep venous thrombosis prophylaxis. On Xarelto. Disposition as per Vascular surgery Subjective Pt was seen and examined Lying in bed with no distress Pt said that she is having pain in her right leg area from the procedure Pt said that she felt sick last night after taking 2 percocet Denies any chest pain, palpitation and SOB Physical Exam Physical Exam: General- No acute distress Head- atraumatic Eyes- PERRL, EOMI, ENT- oropharynx clear Neck- supple, no JVD Lungs- clear to auscultation Heart- regular rhythm; no murmur Abdomen- normal bowel sounds, soft, nontender Extremities- +tenderness in right thigh, +dressing in right groin area intact with no drainage Neuro- alert, oriented x 3; PERRL, EOMI; no facial palsy; no dysarthria Skin- warm & dry Results & Data Vital Signs (Past 12 Hours) Vital Signs Temp Pulse Resp BP BP Pulse Ox 11/08/18 15:12 37.1 C 86 16 109/75 96 11/08/18 11:54 36.8 C 69 18 121/69 94 11/08/18 07:47 36.8 C 76 20 115/69 96
[2018-11-08] MEDS: POLYETHYLENE (MIRALAX) 17 GM PACK PO PRN (17:58)
[2018-11-09 06:38] LABS: Hematocrit (blood only) 25.8 % (37-47); Hemoglobin 8.3 g/dL (12.0-16.0); Mean Corpuscular Hgb Conc 32.2 g/dL (32-36); Mean Platelet Volume 9.8 fL (7.4-10.4); Platelet Count 196 K/uL (130-400); RDW Coefficient of Variation 16.2 % (11.5-14.5); RDW Standard Deviation 49.7 fL (36.4-46.3); Red Blood Count 3.07 M/uL (4.2-5.4); White Blood Count 8.76 K/uL (4.8-10.8)
[2018-11-09 07:21] LABS: BUN Creatinine Ratio 18.9 (10-20); Calcium 8.4 mg/dl (8.5-10.1); Creatinine Clr Calc Pharmacy 63.3 ml/min; Est GFR (African American) 78.8; Potassium 4.4 mmol/L (3.5-5.1)
[2018-11-09] MEDS: GABAPENTIN 100 MG CAP PO SCH ×3 (07:46→20:43)
[2018-11-09] MEDS: RIVAROXABAN 2.5 MG TAB PO SCH ×2 (07:46→20:43)
[2018-11-09] MEDS: CARVEDILOL 3.125 MG TAB PO SCH ×2 (07:46→20:43)
[2018-11-09] MEDS: ATORVASTATIN 40 MG TAB PO SCH (07:47)
[2018-11-09] MEDS: CLOPIDOGREL BISULFATE 75 MG TAB PO SCH (07:47)
[2018-11-09] MEDS: ASPIRIN 81 MG ECTAB PO SCH (07:47)
[2018-11-09] MEDS: LORATADINE 10 MG TAB PO SCH (07:47)
[2018-11-09] MEDS: BusPIRone 15 MG TAB PO SCH ×2 (07:47→20:43)
[2018-11-09] MEDS: PANTOprazole 40 MG TAB PO SCH ×2 (07:47→20:43)
[2018-11-09] MEDS: OXYCODONE/ACETAMINOPHEN 5mg/325mg TAB PO PRN ×3 (07:55→23:10)
[2018-11-09] MEDS: NICOTINE 21 MG/24 HR TDSY TD SCH (08:13)
[2018-11-09] MEDS: INSULIN ASPART 100 UNITS/ML 3 ML PEN SC SCH ×4 (08:22→20:51)
[2018-11-09] MEDS: INSULIN GLARGINE SOLOSTAR 100 UNITS/ML 3 ML PEN SC SCH ×2 (08:22→20:52)
[2018-11-09] MEDS: POLYETHYLENE (MIRALAX) 17 GM PACK PO PRN (08:26)
--- NOTE | 2018-11-09 14:29 | Surgery Progress Note ---
Date of Service November 09, 2018 Assessment & Plan (1) Pain of right lower extremity due to ischemia: Patient doing well. Can go to rehab when bed available. Subjective Patient feeling better today. Able to walk in her room. Pain better cont rolled. Right foot feels fine. Physical Exam Physical Exam: Right groin incision dry and clean. Good doppler flow to foot. Right foot pink and warm. Able to wiggle toes and feels touch. Results & Data Vital Signs (Past 12 Hours) Vital Signs Temp Pulse Pulse Pulse Resp BP Pulse Ox 11/09/18 11:35 36.2 C L 80 18 137/76 97 11/09/18 08:00 85 11/09/18 07:34 37 C 94 H 16 110/68 95 11/09/18 02:55 37 C 89 18 109/72 91
[2018-11-09] MEDS: TRAMADOL HCL 50 MG TABLET PO SCH ×2 (15:04→20:43)
--- NOTE | 2018-11-09 16:12 | Hospitalist Progress Note ---
Date of Service November 09, 2018 Assessment & Plan (1) Pain of right lower extremity due to ischemia: S/P day 3 thrombectomy and revision of the distal end of femoral-femoral bypass performed by Dr. Jara Management per vascular surgery Continue xarelto, aspirin and plavix Monitor hgb PT on board, fall risks Waiting for placement to rehab Hypotension. Possible related to Hypovolemia and narcotic Received IV fluid and decreased percocet BP improved Lisinopril on hold Will resume Lasix in am Continue monitor BP closely Acute blood loss anemia Hbg on admission 11's, then drop to 8's Continue monitor CBC Acute Kidney Injury Possible related to Low volume/Hypotension Creatinine back to baseline Monitor BMP Diabetes. Hba1c 6.7 Oral DM med on hold Refused any insulin Will resume glipizide in am since pt refused any insulin sliding scale Continue Monitor BS History Hypertension Was hypotension last night Continue to hold Lisinopril Will resume Lasix in am Continue Carvedilol BP stable Hyperlipidemia. Continue statin. CAD Continue statin, aspirin, plavix and Coreg Stable History of cerebrovascular accident. Continue aspirin, Plavix and statin. History of diastolic congestive heart failure Echo on 2014 showed ejection fraction of 50-55% wiith moderate mitral regurgitation Received IVF Will resume Lasix in am Will monitor for sign of fluid overload GERD Continue PPI. Generalized anxiety disorder/Depression continue buspirone. Stable Deep venous thrombosis prophylaxis. On Xarelto. Disposition as per Vascular surgery Waiting for placement Subjective Pt was seen and examined Lying in bed with no distress Pt said that she feels much better She said that her pain improves significantly Denies any chest pain, palpitation, dizziness and SOB Physical Exam Physical Exam: General- No acute distress Head- atraumatic Eyes- PERRL, EOMI, ENT- oropharynx clear Neck- supple, no JVD Lungs- clear to auscultation Heart- regular rhythm; no murmur Abdomen- normal bowel sounds, soft, nontender Extremities- +tenderness in right thigh improves, +dressing in right groin area intact and clean Neuro- alert, oriented x 3; PERRL, EOMI; no facial palsy; no dysarthria Skin- warm & dry Results & Data Vital Signs (Past 12 Hours) Vital Signs Temp Pulse Pulse Resp BP Pulse Ox 11/09/18 15:03 36.6 C 106 H 18 116/79 97 11/09/18 11:35 36.2 C L 80 18 137/76 97 11/09/18 08:00 85 11/09/18 07:34 37 C 94 H 16 110/68 95
[2018-11-10] MEDS: TRAMADOL HCL 50 MG TABLET PO SCH ×2 (03:01→08:33)
[2018-11-10 05:58] LABS: Creatinine Clr Calc Pharmacy 64.8 ml/min; Est GFR (Non-African American) 69.9
[2018-11-10] MEDS: OXYCODONE/ACETAMINOPHEN 5mg/325mg TAB PO PRN ×2 (07:34→13:26)
[2018-11-10] MEDS: POLYETHYLENE (MIRALAX) 17 GM PACK PO PRN (08:33)
[2018-11-10] MEDS: ATORVASTATIN 40 MG TAB PO SCH (08:36)
[2018-11-10] MEDS: LORATADINE 10 MG TAB PO SCH (08:36)
[2018-11-10] MEDS: RIVAROXABAN 2.5 MG TAB PO SCH (08:36)
[2018-11-10] MEDS: NICOTINE 21 MG/24 HR TDSY TD SCH (08:36)
[2018-11-10] MEDS: CLOPIDOGREL BISULFATE 75 MG TAB PO SCH (08:36)
[2018-11-10] MEDS: PANTOprazole 40 MG TAB PO SCH (08:36)
[2018-11-10] MEDS: BusPIRone 15 MG TAB PO SCH (08:37)
[2018-11-10] MEDS: GABAPENTIN 100 MG CAP PO SCH ×2 (08:37→13:26)
[2018-11-10] MEDS: ASPIRIN 81 MG ECTAB PO SCH (08:37)
[2018-11-10] MEDS: CARVEDILOL 3.125 MG TAB PO SCH (08:38)
[2018-11-10] MEDS: INSULIN GLARGINE SOLOSTAR 100 UNITS/ML 3 ML PEN SC SCH (08:55)
[2018-11-10] MEDS: INSULIN ASPART 100 UNITS/ML 3 ML PEN SC SCH ×2 (08:55→12:36)
[2018-11-10] MEDS ORDERED: FUROSEMIDE 40 MG TAB PO SCH (09:00)
[2018-11-10] MEDS ORDERED: MAGNESIUM HYDROXIDE SUSP 30 ML UDC PO ONE (09:18)
[2018-11-10] MEDS ORDERED: BISACODYL 10 MG SUPP PR ONE (09:20)
--- NOTE | 2018-11-10 09:24 | Surgery Progress Note ---
Date of Service November 10, 2018 Assessment & Plan (1) Pain of right lower extremity due to ischemia: Patient doing well post op. Will add MOM, colace, and suppository for constipation. Can go to rehab when bed available. Present on Admission?: Yes Subjective 68 yo f POD # 4 after R groin fem fem revision and thrombectomy, seen in f/u today. Pt states pain is improving and she is able to ambulate with walker. Admits flatus, but no BM. Denies abd pain or nausea. States has problems with chronic constipation at home. Review of Systems Review of Systems: All systems reviewed & are unremarkable except as noted in HPI & below Physical Exam Constitutional: WD/WN, vitals as above well developed and well nourished Respiratory: normal respiratory effort; no respiratory distress Cardiovascular: Rate/Rhythm: regular rate and regular rhythm Gastrointestinal (Abdomen): Inspection/Auscultation: abdomen normal to inspection; abdomen not distended Percussion/Palpation: abdomen nontender Skin: + incision (R groin intact, +tender, ecchymosis,); no induration, no erythema and no fluctulance Psychiatric: A+Ox3, euthymic affect Results & Data Vital Signs (Past 12 Hours) Vital Signs Temp Pulse Pulse Resp BP Pulse Ox 11/10/18 07:52 36.7 C 80 18 109/71 96 11/09/18 22:55 36.8 C 94 H 16 124/82 98
[2018-11-10] MEDS ORDERED: DOCUSATE SODIUM 100 MG CAP PO SCH (09:30)
[2018-11-10] MEDS: ONDANSETRON INJ 2 MG/ML 2 ML VIAL IV PRN (11:00)
[2018-11-10] MEDS ORDERED: MAGNESIUM HYDROXIDE SUSP 30 ML UDC ONE (11:50)
--- NOTE | 2018-11-10 16:38 | Hospitalist Progress Note ---
Date of Service November 10, 2018 Assessment & Plan (1) Pain of right lower extremity due to ischemia: S/P day 3 thrombectomy and revision of the distal end of femoral-femoral bypass performed by Dr. Jara Management per vascular surgery On xarelto, aspirin and plavix hemoglobin stable PT on board, fall risks Waiting for placement to rehab Hypotension. Possible related to Hypovolemia and narcotic Received IV fluid and decreased percocet will resume Lisinopril on discharge Lasix resumed Continue monitor BP closely Resolved Acute blood loss anemia Hbg on admission 11's, then drop to 8's Continue monitor CBC Acute Kidney Injury Possible related to Low volume/Hypotension Creatinine back to baseline Monitor BMP resolved Diabetes. Hba1c 6.7 Oral DM med on hold Refused any insulin Will resume glipizide in am since pt refused any insulin sliding scale Continue Monitor BS History Hypertension Was hypotension last night Resume Lisinopril on discharge Continue lasix Continue Carvedilol BP stable Hyperlipidemia. Continue statin. CAD Continue statin, aspirin, plavix and Coreg Stable History of cerebrovascular accident. Continue aspirin, Plavix and statin. History of diastolic congestive heart failure Echo on 2014 showed ejection fraction of 50-55% wiith moderate mitral regurgitation No sign of fluid overload Continue Lasix 40mg daily GERD Continue PPI. Generalized anxiety disorder/Depression continue buspirone. Stable Deep venous thrombosis prophylaxis. On Xarelto. Disposition as per Vascular surgery Subjective Pt was seen and examined Lying in bed with no distress Pt said that she feels much better She said that she feels bloating because she has not had a BM yet Denies any chest pain, palpitation dizziness and SOB Physical Exam Physical Exam: General- No acute distress Head- atraumatic Eyes- PERRL, EOMI, ENT- oropharynx clear Neck- supple, no JVD Lungs- clear to auscultation Heart- regular rhythm; no murmur Abdomen- normal bowel sounds, soft, nontender Extremities- +tenderness in right thigh improves, +dressing in right groin area intact and clean Neuro- alert, oriented x 3; PERRL, EOMI; no facial palsy; no dysarthria Skin- warm & dry Results & Data Vital Signs (Past 12 Hours) Vital Signs Temp Pulse Resp BP Pulse Ox 11/10/18 07:52 36.7 C 80 18 109/71 96
--- NOTE | 2018-11-15 12:07 | Discharge Summary ---
Date of Service November 15, 2018 Admission HPI Per Admitting Provider This is a 68-year-old female who developed a right foot pain approximately 2 weeks prior to this.It is been Getting progressively worse. She does have a femorofemoral bypassDone in 2009.She had an ultrasound done on Tuesday which showed an occlusion of the bypass.She also has a carotid endarterectomy done on the right sideIn the past.She claims this pain is gotten progressively worse in the right foot. She has decreased sensation in the right foot. Admission Exam Per Admitting Provider Constitutional: WD/WN, vitals as above well developed and well nourished Respiratory: normal respiratory effort; no respiratory distress Cardiovascular: Rate/Rhythm: regular rate and regular rhythm Gastrointestinal (Abdomen): Inspection/Auscultation: abdomen normal to inspection; abdomen not distended Percussion/Palpation: abdomen nontender Skin: Discoloration of the right foot. Neurologic: She is anesthetic in the right foot and the toes and dorsum of the foot. Psychiatric: A+Ox3, euthymic affect Principal Diagnosis 1. s/p thrombectomy of fem-fem BPG and revision of R groin anastomosis 2. Occlusion fem-fem BPG. Discharge Exam Constitutional WD/WN, vitals as above well developed and well nourished Respiratory normal respiratory effort; no respiratory distress Cardiovascular Rate/Rhythm: regular rate and regular rhythm Gastrointestinal (Abdomen) Inspection/Auscultation: abdomen normal to inspection; abdomen not distended Percussion/Palpation: abdomen nontender Skin + incision (R groin intact, +tender, ecchymosis,); no induration, no erythema and no fluctulance Psychiatric A+Ox3, euthymic affect Discharge Data Allergies Allergy/AdvReac Type Severity Reaction Status Date / Time Penicillins Allergy Mild Vomiting Verified 11/06/18 15:02 mushroom Allergy Verified 11/07/18 11:21 strawberry Allergy Verified 11/07/18 11:20 gluten AdvReac Mild unknown Unverified 11/06/18 15:02 nitroglycerin AdvReac Mild DECREASED Verified 11/06/18 15:02 BP hydrocodone [From Lortab] AdvReac Vomiting Verified 11/06/18 15:02 Consultations 11/06/18 15:22 ED Decision to Admit Stat 11/06/18 18:47 Consult [employer] Wa[employer] Depositor Routine 11/07/18 21:51 Consult Hospitalist Routine Procedures Performed Operation Date: 11/06/18 11:20 Actual Procedures p Thrombectomy, Femoral-Femoral Bypass, Patch Angioplasty of Distal Anastamosis(Bilateral) - Alex Jara MD Ordered Studies 11/06/18 14:16 CT angio abd aorta runof w con Stat Hospital Course (1) Pain of right lower extremity due to ischemia: Patient doing well post op day 4 Will add MOM, colace, and suppository for constipation. Can go to rehab when bed available. Total Time Total Time Spent Total Time Spent (In Minutes): 15 minutes Total Time Includes: Examination of the Patient, Discharge Planning and Medication Reconciliation Discharge Plan Discharge Items Patient Disposition: Transfer Assisted Fac Reason For Visit: ISCHEMIC RIGHT LEG Discharge Diagnosis: 1. s/p revision R groin anastamosis of L to R fem fem BPG, with fem art endarterectomy 2. PAD with RLE ischemia Condition: Good Discharge Goals: Therapeutic intervention Activity: Per 'Additional Instructions' section Lifting: No more than 10 pounds Non-emergency contact: Primary Care Provider and Surgeon Call non-emergency contact if: you have any medication questions, your pain is not controlled, your pain is worsening, your temperature is above 101, your wound has increased redness and your wound has increased drainage Follow-up/Referrals: Blanca Walker PA-C [Physician Manager Staffing] - (Please call [phone] for appt in [address] Jara or Blanca Walker PA-C ) Salvatore Adams MD [Primary Care Provider] - Diet: Carb Consistent or DM2 and Heart Healthy Addtl Provider Instructions: 1. May shower and dry surgical area gently and thoroughly. NO BATHING/SOAKING of wound. 2. No dressing required to R groin. Keep clean and dry 3. No driving until after follow up appt. Prescriptions: New oxycodone-acetaminophen [Percocet] 5-325 mg Tablet 1 tab PO Q6H PRN (Reason: Pain) Qty: 60 RF: 0 docusate sodium 100 mg Capsule 100 mg PO BID Qty: 60 RF: 0 Xarelto 2.5 mg Tablet 2.5 mg PO BID Qty: 60 RF: 5 polyethylene glycol 3350 [Miralax] 17 gram Powder In Packet 17 g PO DAILY PRN (Reason: Constipation) Qty: 30 RF: 0 nicotine [Nicoderm CQ] 21 mg/24 hr Patch 24 Hour 21 mg transdermal QAM Qty: 30 RF: 0 Continued furosemide 40 mg tablet 40 mg PO DAILY RF: 0 atorvastatin 40 mg tablet 40 mg PO DAILY RF: 0 glipizide 10 mg tablet 10 mg PO BID RF: 0 clopidogrel 75 mg tablet 75 mg PO DAILY RF: 0 omeprazole 40 mg capsule,delayed release(DR/EC) 40 mg PO BID RF: 0 aspirin 81 mg Tablet,Delayed Release (Dr/Ec) 81 mg PO DAILY RF: 0 carvedilol 3.125 mg tablet 3.125 mg PO BID RF: 0 gabapentin 100 mg capsule 100 mg PO TID RF: 0 pioglitazone 30 mg tablet 30 mg PO QAM RF: 0 fluticasone propionate 50 mcg/actuation spray,suspension 1 spray intranasal DAILY PRN (Reason: Nasal Congestion) RF: 0 lisinopril 2.5 mg tablet 2.5 mg PO DAILY RF: 0 loratadine 10 mg tablet 10 mg PO DAILY RF: 0 buspirone 15 mg tablet 15 mg PO BID RF: 0 ipratropium-albuterol 20-100 mcg/actuation Mist 2 puff INHALATION Q4H PRN (Reason: Shortness Of Breath) RF: 0 Discontinued tramadol 50 mg tablet 50 mg PO Q6H PRN (Reason: Pain) RF: 0 Stand-Alone Forms: [facility] Discharge Orders: Discharge Order (Routine); Ordered 11/10/18 Ordered By: Blanca Walker Skilled Items Patient informed of condition?: Yes DNR: No Discharge Level of Care: Acute rehab Communicable Disease: No Discharge Prognosis: Improving Admission Data Admit Date/Time: 11/06/18 18:46 Attending Provider: Alex Jara Admit Provider: Alex Jara Primary Care Provider: Salvatore Adams Other Providers: Marshall Lin ; Giovani Hernandez Service: Medical Other Interventions: Discharge Summary Assessment (RN) Last Done: 11/10/18 11:55 DC Date/Time DO NOT enter until pt leaves facility: 11/10/18 13:50
== END 2018-11-10 13:50 | DRG 253 ==
LOC: ED 13:26 → OR 16:00 → 1E 18:46 → 3E 11-07 09:21 → 2S 11-07 23:50 → 3W 11-09 16:03
DX: Z79.82 Long term (current) use of aspirin; I25.10 Atherosclerotic heart disease of native coronary artery without angina pectoris; T82.868A Thrombosis due to vascular prosthetic devices, implants and grafts, initial encounter; I25.2 Old myocardial infarction; N17.9 Acute kidney failure, unspecified; I11.0 Hypertensive heart disease with heart failure; F41.1 Generalized anxiety disorder; I50.30 Unspecified diastolic (congestive) heart failure; E11.51 Type 2 diabetes mellitus with diabetic peripheral angiopathy without gangrene; I95.81 Postprocedural hypotension; Z79.84 Long term (current) use of oral hypoglycemic drugs; F17.210 Nicotine dependence, cigarettes, uncomplicated; Y83.2 Surgical operation with anastomosis, bypass or graft as the cause of abnormal reaction of the patient, or of later complication, without mention of misadventure at the time of the procedure; E78.5 Hyperlipidemia, unspecified; Z79.02 Long term (current) use of antithrombotics/antiplatelets; J44.9 Chronic obstructive pulmonary disease, unspecified; I73.9 Peripheral vascular disease, unspecified; D62 Acute posthemorrhagic anemia; Z79.899 Other long term (current) drug therapy; Z95.5 Presence of coronary angioplasty implant and graft; Z86.73 Personal history of transient ischemic attack (TIA), and cerebral infarction without residual deficits

== ENCOUNTER 2018-11-16 09:58 | Inpatient (IN) ==
[2018-11-16 10:42] LABS: Basophils # (auto) 0.02 K/uL (0-0.2); Basophils % (auto) 0.2 %; Eosinophils # (auto) 0.32 K/uL (0-0.5); Hematocrit (blood only) 22.9 % (37-47); Immature Granulocytes # (auto) 0.05 K/uL (0.00-0.02); Immature Granulocytes % (auto) 0.5 %; Lymphocytes # (auto) 1.28 K/uL (1.2-3.4); Lymphocytes % (auto) 11.8 %; Mean Corpuscular Hemoglobin 25.6 pg (25-34); Mean Corpuscular Hgb Conc 30.6 g/dL (32-36); Mean Corpuscular Volume 83.9 fL (80-100); Mean Platelet Volume 9.9 fL (7.4-10.4); Monocytes # (auto) 0.69 K/uL (0.11-0.59); Monocytes % (auto) 6.4 %; Neutrophils # (auto) 8.45 K/uL (1.4-6.5); Neutrophils % (auto) 78.1 %; Platelet Count 370 K/uL (130-400); RDW Coefficient of Variation 17.2 % (11.5-14.5); RDW Standard Deviation 52.5 fL (36.4-46.3); Red Blood Count 2.73 M/uL (4.2-5.4); White Blood Count 10.81 K/uL (4.8-10.8)
[2018-11-16 10:49] LABS: Alanine Aminotransferase 16 U/L (12-78); Aspartate Aminotransferase 14 U/L (15-37); BUN Creatinine Ratio 20.9 (10-20); Blood Urea Nitrogen 22 mg/dl (7-18); Calcium 9.1 mg/dl (8.5-10.1); Carbon Dioxide 30 mmol/L (21-32); Chloride 101 mmol/L (98-107); Creatinine Clr Calc Pharmacy 53.7 ml/min; Est GFR (African American) 64.2; Est GFR (Non-African American) 55.4; Glucose 135 mg/dl (70-99); Potassium 4.3 mmol/L (3.5-5.1); Sodium 137 mmol/L (136-145)
--- NOTE | 2018-11-16 10:52 | XRay Report ---
XR chest 1V portable HISTORY: 68 years-old Female Chest Pain acute atypical chest pain COMPARISON: CTA 11/06/2018, chest radiograph 07/02/2008 TECHNIQUE: Portable AP view of the chest FINDINGS: Cardiomediastinal and hilar silhouettes are within normal limits. No pneumothorax, pleural effusion, focal airspace consolidation or overt pulmonary edema. Multiple healed remote left-sided rib fracture s. Degenerative changes of the shoulders and spine. IMPRESSION: No acute process. The above report was generated using voice recognition software. It may contain grammatical, syntax o r spelling errors. Electronically signed by: Riki Figueredo M.D. 11/16/2018 10:50 AM
[2018-11-16 10:54] LABS: Albumin Globulin Ratio 0.8 (0.9-2); Alkaline Phosphatase 93 U/L (45-117); Bilirubin,Total 0.8 mg/dl (0.2-1); Troponin I < 0.015 ng/ml (0-0.045)
[2018-11-16 10:55] LABS: INR 1.1 (0.9-1.1); Partial Thromboplastin Time 27.9 Seconds (21.0-31.0); Prothrombin Time 10.9 Seconds (9.0-12.0)
[2018-11-16 11:03] LABS: Basophilic Stippling 1+; Hypochromasia Present; Polychromasia 1+
[2018-11-16] MEDS ORDERED: SODIUM CHLORIDE 0.9% 250 ML IV PRN (11:35)
[2018-11-16] MEDS ORDERED: PANTOprazole 80 MG in DEXTROSE 5% 100 ML IV STA (12:03)
[2018-11-16] MEDS ORDERED: fentaNYL citrate 100 MCG/2 ML VIAL IV STA ×2 (12:55→16:07)
[2018-11-16] MEDS ORDERED: OPTIRAY 320 125ml IV PRN ×2 (13:04→15:43)
--- NOTE | 2018-11-16 13:17 | CT Scan Report ---
CT angio abdomen pelvis w con CLINICAL HISTORY: 68 years-old Female presenting with back pain, low hgb, recent RLE fem/fem bypass/t hro. TECHNIQUE: Multidetector CT angiography of the abdomen and pelvis was performed after the administrat ion of intravenous contrast. 3-D volumetric and/or maximum intensity projection (MIP) images were sub sequently reconstructed for review. IV contrast: 120 mL of Optiray 320. One or more dose lowering roberto hniques were used consistent with the principles of ALARA (as low as reasonably achievable), includin g automatic exposure control, mA or kV adjustment to individual patient size, and/or use of iterative reconstruction. Stenosis measurements were based on NASCET-like criteria (distal lumen diameter as t he denominator for stenosis measurement). COMPARISON: 11/06/2018. CT DOSE (mGy.cm): The estimated cumulative dose is 1036.93. FINDINGS: Teacher Aide Clerical topogram: Unremarkable. Vasculature: There has been interval femoral-femoral bypass grafting for the severe stenosis and/or occlusion of t he right external iliac artery and recent bypass graft occlusion. The revised graft contains trace th rombus in the midportion (series 3 image 392 and near the insertion at the right common femoral arter y (series 3 image 389). Significant atherosclerotic irregularity and diminutive caliber of the bilate ral superficial and deep femoral arteries. Superficial to the right femoral vessels is a small hematoma. This is separate from the vessels by di stinct fat plane and is not worrisome for pseudoaneurysm this measures up to 5.6 cm in diameter. Mild stranding surrounding the right femoral vessels and bypass graft insertion site likely postsurgical. Abdominal aorta again demonstrates diffuse calcified and noncalcified atherosclerotic plaque resultin g in severe luminal irregularity though overall normal in caliber. Less than 50% stenosis of the orig ins of the celiac and left renal artery. Over 50% stenosis of the origin and proximal portion of the right renal artery is suggested. The superior mesenteric artery is not significantly narrowed at its origin though immediately distal to this there is at least 50% narrowing of its proximal course. Conv entional hepatic arterial anatomy. 2 renal arteries bilaterally with a dominant artery mentioned abov e. Remaining abdomen and pelvis: Lung bases: Normal heart size. Coronary artery calcification. No pericardial or pleural effusion. No focal infiltrate or nodule at the lung bases. Liver: Normal morphology. No focal lesion allowing for the early arterial phase of contrast. Patent h epatic vasculature. Biliary: No intrahepatic or extrahepatic biliary ductal dilatation. Normal gallbladder. Pancreas: Normal. Spleen: Normal. Adrenal glands: Normal. Kidneys and ureters: Normal. No hydronephrosis. Bladder: Normal. Pelvic organs: Uterus surgically absent. Normal ovaries. Bowel: Mild to moderate stool burden throughout normal caliber colon and no bowel obstruction. The ap pendix is normal. Peritoneal cavity: No free fluid or intraperitoneal gas. Lymph nodes: No enlarged lymph nodes in the abdomen or pelvis. Abdominal wall: Foci of infiltration in the anterior abdominal wall likely relates to medication admi nistration. Musculoskeletal: Degenerative changes of the spine. Osteopenia suspected. IMPRESSION: 1. Interval revision of the femoral-femoral bypass graft, which is now patent. Small foci of intragr aft thrombus in the midportion and at the insertion at the right common femoral artery. 2. 5.6 cm hematoma superficial to the operative bed in the right inguinal region. No evidence of pse udoaneurysm. 3. Severe atherosclerosis with multivessel stenoses as above. 4. Stool burden suggests constipation. Electronically signed by: Chandler Mendoza M.D. 11/16/2018 1:15 PM
[2018-11-16 13:22] LABS: Appearance Urine Clear (Clear); Bacteria Urine Automated Negative (Negative); Bilirubin Urine Negative (Negative); Blood Urine Trace (Negative); Cast Urine Automated 0 /lpf (0-5); Color Urine Yellow; Epithelial Cell Urine Auto 0-5 /lpf (0-5); Glucose Urine UA Negative (Negative); Ketones Urine Negative (Negative); Leukocyte Esterase Urine Negative (Negative); Nitrite Urine Negative (Negative); Protein Urine Negative (Negative); RBC Urine Automated 0-4 /hpf (0-4); Urobilinogen Urine Negative (Negative); WBC Urine Automated 0 /hpf (0-5)
--- NOTE | 2018-11-16 13:25 | CT Scan Report ---
CT angio femur RT wo/w con HISTORY: to distal thigh, recent fem/fem bypass and thrombus. Right groin pain. TECHNIQUE: Multiaxial CT images of the right thigh was performed following the use of intravenous con trast to evaluate the major arterial structures. Maximal intensity projection images were also perfor med at the workstation. COMPARISON STUDY: Lower extremity runoff 11/06/2018. FINDINGS: The visualized femoral-femoral graft is now patent. Moderate to severe multifocal narrowing throughout the [place] right superficial femoral artery and right popliteal artery. There are multifo vish areas within the distal superficial femoral artery and popliteal artery demonstrating between 50 and 75% stenosis. This is most pronounced within the distal superficial femoral artery on image 349. There is also a focal dissection within the proximal popliteal artery best seen on image 409. There i s a 12 x 6 x 5 cm ill-defined mixed density fluid collection within the right groin subcutaneous soft tissues extending into the right proximal thigh. This is consistent with a hematoma. No active extra vasation to suggest a pseudoaneurysm. Subcutaneous edema within the right lower leg. No fractures wit hin the visualized osseous structures. IMPRESSION: 1. A 12 x 6 x 5 cm subcutaneous hematoma within the right groin extending into the proximal right thi gh. No evidence for pseudoaneurysm. 2. The femorofemoral graft is now patent. 3. Multifocal moderate to severe narrowing throughout the [place] right superficial femoral artery and visualized bile duct to arteries described above. 4. 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 Both lumens remain opacified. Electronically signed by: Erick Crandall M.D. 11/16/2018 1:24 PM
[2018-11-16] MEDS: PANTOprazole 40 MG in DEXTROSE 5% 100 ML IV SCH ×3 (13:31→23:46)
[2018-11-16] MEDS ORDERED: MoRPHine SULFATE 2 MG/ML CARP IV STA (14:21)
--- NOTE | 2018-11-16 15:11 | History & Physical Report ---
Date of Service November 16, 2018 Assessment & Plan (1) Anemia: (2) Melena: In ER H/H: 10/02 (was 8.3/25 on 11/09/2018), Plt: 370 DDX: GI bleed, hematoma, postop anemia -In ER patient afebrile P: 97, RR: 16, BP: 154/82, 98% on room air -2 units PRBC transfused -Protonix bolus and drip started in ER -Monitor H&H -If increased melena or other GI bleeding and continued downtrending hemoglobin consider holding aspirin, Plavix -GI consult (3) PVD (peripheral vascular disease): (4) Hematoma of right thigh: Patient with recent history of thrombectomy, femoral-femoral bypass, patch angioplasty of distal anastomosis right femoral 11/06/2018 secondary to prior graft occlusion Patient reports right upper leg ecchymosis for several days and right groin discomfort Right extremity CTA: 1. A 12 x 6 x 5 cm subcutaneous hematoma within the right groin extending into the proximal right thigh. No evidence for pseudoaneurysm. 2. The femorofemoral graft is now patent. 3. Multifocal moderate to severe narrowing throughout the [place] right superficial femoral artery and visualized bile duct to arteries described above. 4. 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 Both lumens remain opacified. -Continue Plavix, aspirin -Hold Xarelto further recommendations vascular surgery secondary to melena -Monitor H&H -Vascular consult (5) Back pain: Pt with c/o thoracic back pain CT chest to rule out aortic dissection. Patient had already received IV contrast for abdominal pelvis CT. Discussed with patient risks and benefits of additional CT with contrast. Discussed risk of kidney injury and patient and daughter report understanding and wished to go forward with CT chest. CT CHEST negative for aortic dissection. 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 Patient has been smoking since has been in rehab and has been using nicotine patch -Nicotine patch (13) Anxiety: -Continue buspirone VTE Prophylaxis: SCDs with current anemia Full Code as per discussion with pt Follows with Dr Adams for routine care Pt was seen and care coordinated with Dr Sims. See addendum History of Present Illness Chief Complaint: Back pain Primary Care Provider: Salvatore Adams MD Pt is 68 y/o F with PMH PVD with recent history of thrombectomy, femoral- femoral bypass, patch angioplasty of distal anastomosis right femoral 11/06/2018, CAD s/p stent, stroke, HTN, HLD, DM, COPD, tobacco use, Pendleton's esophagitis presented to ER with complaint of back pain. Patient reports intermittent upper and lower back for a couple of years however the past 3 days has been having upper mid and right-sided back pain that is described as stabbing and constant patient reports cannot get comfortable secondary to pain. Reports pain with intermittent increased stabbing "jolts" and worse with movement. Reports this back pain however this feels different from her chronic pain. Denies chest pain or shortness of breath. Today feeling a little dizzy denies syncope. Also reports upper abdominal pain the last couple of days. Reports has had melena for the last 3 days and may have been going on longer (patient poor historian). Reports constipation which has increased since surgery and having small BMs and thinks last BM was yesterday. Denies recent injury or fall. Patient reports has had clear bloody drainage from incision site to right groin. Also complains of right groin pain. Noticed large bruising to right upper leg. Denies paresthesias. C/O dry cough pas couple of days. Reports history of blood clot in the left upper extremity 15 years ago. Denies fever/chills, diaphoresis, N/V, hematochezia, hematemesis, CHRISTENSEN, syncope, vision changes, neck pain, CP, SOB, orthopnea, palpitations, sore throat, choking, otalgia, rhinorrhea, rashes, urinary symptoms. Allergies Allergy/AdvReac Type Severity Reaction Status Date / Time Penicillins Allergy Mild Vomiting Verified 11/16/18 13:08 mushroom Allergy Verified 11/16/18 13:08 strawberry Allergy Verified 11/16/18 13:08 gluten AdvReac Mild unknown Unverified 11/16/18 13:08 nitroglycerin AdvReac Mild DECREASED Verified 11/16/18 13:08 BP hydrocodone [From Lortab] AdvReac Vomiting Verified 11/16/18 13:08 Home Medications Home Medications Medication Instructions Recorded Confirmed Type aspirin 81 mg PO QAM 11/06/18 11/16/18 History atorvastatin 40 mg PO QPM 11/06/18 11/16/18 History buspirone 15 mg PO BID 11/06/18 11/16/18 History carvedilol 3.125 mg PO BID 11/06/18 11/16/18 History clopidogrel 75 mg PO QAM 11/06/18 11/16/18 History fluticasone propionate 1 spray INTRANASAL DAILY PRN 11/06/18 11/16/18 History furosemide 40 mg PO QAM 11/06/18 11/16/18 History gabapentin 100 mg PO TID 11/06/18 11/16/18 History glipizide 10 mg PO BID 11/06/18 11/16/18 History lisinopril 2.5 mg PO QAM 11/06/18 11/16/18 History loratadine 10 mg PO QAM 11/06/18 11/16/18 History omeprazole 40 mg PO BID 11/06/18 11/16/18 History pioglitazone 30 mg PO QAM 11/06/18 11/16/18 History docusate sodium 100 mg PO BID #60 cap 11/10/18 11/16/18 Rx oxycodone-acetaminophen [Percocet] 1 tab PO Q6H PRN #60 tab 11/10/18 11/16/18 Rx polyethylene glycol 3350 [Miralax] 17 g PO DAILY PRN #30 ea 11/10/18 11/16/18 Rx rivaroxaban [Xarelto] 2.5 mg PO BID #60 tab 11/10/18 11/16/18 Rx acetaminophen 650 mg PO Q6H PRN 11/16/18 11/16/18 History albuterol sulfate [Ventolin HFA] 2 puff INHALATION Q4 PRN 11/16/18 11/16/18 History magnesium hydroxide 30 ml PO UD PRN 11/16/18 11/16/18 History nicotine [Nicoderm CQ] 1 patch TRANSDERMAL QAM 11/16/18 11/16/18 History ondansetron HCl 4 mg PO Q6 PRN 11/16/18 11/16/18 History Past Med/Surg History Medical History Anxiety (Chronic) Pendleton esophagus (Chronic) Diabetes mellitus, type II (Chronic) CAD (coronary artery disease) (Chronic) COPD (chronic obstructive pulmonary disease) (Chronic) Myocardial infarction (Resolved) x2 with stent CVA (cerebral vascular accident) (Chronic) PVD (peripheral vascular disease) (Chronic) Tobacco use disorder, continuous (Chronic) 2ppd Hyperlipidemia (Chronic) HTN (hypertension) (Chronic) Critical limb ischemia with history of revascularization of same extremity (Resolved) RLE H/O: hysterectomy (Chronic) Coronary artery disease, occlusive Surgical History History of carotid endarterectomy (Chronic) Status post carotid endarterectomy (Chronic) right Status post femoral-popliteal bypass surgery (Chronic) 2004 Family History Other Diabetes Stroke Social History Preferred Language: Indonesian Communication Ability: Effective Ladler Required: No Beliefs That Will Affect Care: None Current Living Situation: Rehab Current Living Situation Comment: rehab after vascular surgery Other Information That Helps Us Care for You: No Feels Safe at Home: Yes Smoking Status: Former smoker Tobacco Type: cigarettes ; Cigarettes Per Day: 1- 2ppd; Currently using nicotine patch since hospitalization ; Do You Dip or Chew Tobacco: No ; Second Hand Exposure: Yes ; Hx Alcohol Use: No Hx Substance Use: No Review of Systems Review of Systems: All systems reviewed & are unremarkable except as noted in HPI & below Physical Exam Physical Exam: General: chronic ill appearing, obese, +moderate pain, moving around on bed secondary to reported thoracic back pain Head: normocephalic, atraumatic Eyes: PERRL, EOM's intact, conjunctiva non-injected, anicteric ENT: normal inspection external ears, nose, mucous membranes moist Neck: supple, trachea midline, non-tender Lungs: clear, no respiratory distress, no wheezing/rhonchi/rales CV: RRR, no murmur, no pretibial edema Abd: normal BS, soft, mild tenderness to palpation epigastric region without rebound or guarding Back: no rashes or discoloration, +tenderness to light palpation upper thoracic region, greater on right side Ext: no cyanosis, no calf tenderness; RLE: right groin with incision site with serosanguineous drainage noted on dressing without significant surrounding erythema, upper leg with large ecchymosis Neuro: A&O x 3, no focal deficits noted, normal affect Skin: warm, dry Results & Data Vital Signs (Past 12 Hours) Vital Signs Temp Pulse Resp BP Pulse Ox 11/16/18 14:50 37.1 C 95 H 20 123/73 99 11/16/18 14:30 105 H 16 126/73 98 11/16/18 14:20 37 C 107 H 18 126/73 100 11/16/18 14:15 101 H 16 122/74 98 11/16/18 14:09 91 H 21 114/74 96 11/16/18 14:05 36.7 C 93 H 20 114/74 100 11/16/18 14:00 89 21 128/58 L 98 11/16/18 13:52 93 H 15 126/47 L 92 11/16/18 13:46 37.2 C 102 H 21 107/65 99 11/16/18 13:31 96 H 21 119/67 94 11/16/18 12:30 92 H 16 117/63 100 11/16/18 12:00 101 H 16 116/57 L 98 11/16/18 11:31 106 H 18 102/71 99 11/16/18 11:00 95 H 18 108/71 98 11/16/18 10:34 98 11/16/18 10:17 98 11/16/18 10:09 36.6 C 97 H 16 154/82 H 98 Laboratory Results Short CBC 11/16/18 Range/Units 10:10 WBC 10.81 H (4.8-10.8) K/uL Hgb 7.0 L (12.0-16.0) g/dL Hct 22.9 L (37-47) % Plt Count 370 (130-400) K/uL BMP 11/16/18 10:10 Sodium 137 Potassium 4.3 Chloride 101 Carbon Dioxide 30 BUN 22 H Creatinine 1.03 Glucose 135 H Calcium 9.1 Cardiac Enzymes 11/16/18 Range/Units 10:10 Troponin I < 0.015 (0-0.045) ng/ml Liver Function 11/16/18 Range/Units 10:10 Total Bilirubin 0.8 (0.2-1) mg/dl AST 14 L (15-37) U/L ALT 16 (12-78) U/L Alkaline Phosphatase 93 (45-117) U/L Albumin 3.0 L (3.4-5.0) gm/dl Urine 11/16/18 Range/Units 11:00 Urine Color Yellow Urine Appearance Clear (Clear) Urine pH 7.0 (4.5-7.5) Ur Specific [place] 1.010 (1.000-1.030) Urine Protein Negative (Negative) Urine Glucose (UA) Negative (Negative) Diagnostic Findings CTA CHEST: IMPRESSION: 1. No evidence of acute aortic injury. No acute intrathoracic pathology. 2. Multiple solid nodules bilaterally greater on the right with an upper lobe predominance. These are nonspecific and could potentially relate to smoking- related lung injury or granulomatous disease in the appropriate clinical setting. 3. Dominant solid spiculated 10 mm right upper lobe nodule. While this could relate to the aforementioned multiple solid pulmonary nodules, a neoplastic etiology is not excluded given the size and appearance. Follow-up per Fleischner Society 2017 recommendations below. 4. Trace emphysema suspected. LOWER EXTREMITY CTA: IMPRESSION: 1. A 12 x 6 x 5 cm subcutaneous hematoma within the right groin extending into the proximal right thigh. No evidence for pseudoaneurysm. 2. The femorofemoral graft is now patent. 3. Multifocal moderate to severe narrowing throughout the [place] right superficial femoral artery and visualized bile duct to arteries described above. 4. 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 Both lumens remain opacified. CTA ABD/PELVIS: IMPRESSION: 1. Interval revision of the femoral-femoral bypass graft, which is now patent. Small foci of intragraft thrombus in the midportion and at the insertion at the right common femoral artery. 2. 5.6 cm hematoma superficial to the operative bed in the right inguinal region. No evidence of pseudoaneurysm. 3. Severe atherosclerosis with multivessel stenoses as above. 4. Stool burden suggests constipation. CXR: IMPRESSION: No acute process. Supervising Physician Co-Signing Physician Notes Patient is a 68-year-old female with history of peripheral vascular disease who recently underwent femoral-femoral bypass surgery, thrombectomy by Dr. Jara , H/O CVA, CAD, Pendleton's esophagus and other problems presents with history of worsening back pain, dizziness, left upper quadrant abdominal pain, constipation, melena since 3 days duration. Patient is currently on aspirin, Plavix, Xarelto for vascular issues. Also reports having clear bloody discharge from incision site of the right groin region. Please review HPI for complete details of presentation. On exam patient is obese, distress secondary to pain, normocephalic atraumatic, lungs are clear to auscultation, S1-S2, no murmur, back-right upper paravertebral tenderness, abdomen soft, epigastric, and left upper quadrant tenderness, no guarding or rigidity, right groin--incision site--serosanguineous drainage, ecchymosis, right lower extremity edema, grossly no focal neurological deficits. CT abdomen suggestive of small foci of intragraft thrombus in the midportion and at the insertion of the right common femoral artery. Also noted 5.6 cm hematoma superficial to the operative bed in the right inguinal region; CT of the lower extremity suggestive of focal dissection within the proximal popliteal artery. Spinal imaging not suggestive of any acute fractures. Patient's hemoglobin dropped to 7.0. Patient is admitted for management of melena, right groin hematoma, back pain. Given no active bleeding and recent bypass graft, aspirin, Plavix are currently continued. Xarelto held. Patient received 2 units PRBC. Vascular surgery co nsulted. Monitor H&H, transfuse as needed. Also started on Protonix GGT. GI consulted for input. CT not suggestive of aortic dissection. Back pain likely musculoskeletal in origin. Gentle IV fluids to prevent nephropathy from IV contrast. (Patient was informed of potential kidney injury from IV contrast. Patient agrees and understands the consequences and agreed to proceed with investigation.) Minimize narcotic pain meds as able. Bowel regimen for constipation. I personally reviewed the record. Patient is interviewed and examined at bedside. Patient's care is coordinated with Antonella Hoyt. Please refer to the documentation above for details of patient's presentation and for discussion of other issues. (1) Hematoma of right thigh Encounter type: initial encounter Qualified Code(s): S70.11XA - Contusion of right thigh, initial encounter
--- NOTE | 2018-11-16 16:05 | CT Scan Report ---
CT angio chest dissec wo/w con CLINICAL HISTORY: 68 years-old Female presenting with severe back pain, concern for dissection. TECHNIQUE: Multidetector CT angiography of the chest was performed before and after the administratio n of intravenous contrast. 3-D volumetric and/or maximum intensity projection (MIP) images were subse quently reconstructed for review. IV contrast: 116 mL of Optiray 320. One or more dose lowering techn iques were used consistent with the principles of ALARA (as low as reasonably achievable), including automatic exposure control, mA or kV adjustment to individual patient size, and/or use of iterative r econstruction. COMPARISON: Chest x-ray from earlier the same day. CT DOSE (mGy.cm): The estimated cumulative dose is 1331.70 mGy.cm. FINDINGS: Powder Mixer topogram: Unremarkable. Vasculature: The study is adequate for assessment of the aorta. Precontrast imaging demonstrates no evidence of in tramural hematoma. Atherosclerosis of the aorta. Postcontrast imaging demonstrates no evidence of dis section, penetrating ulcer, or aneurysm. Allowing for timing of the contrast bolus, no gross evidence of a filling defect within the pulmonary arteries to suggest embolus. Main pulmonary artery is not e nlarged. No flattening of the interventricular septum. No intracardiac filling defect. No reflux of c ontrast into the hepatic veins. Remaining chest: Soft tissues: Normal thyroid and thoracic inlet. No axillary, supraclavicular, mediastinal, or hilar lymphadenopathy. Normal heart size. Coronary artery calcification. No pericardial or pleural effusion . Upper abdomen normal. Lungs and airways: No pneumothorax. Central airways patent. Mild bronchial wall thickening. Irregular spiculated solid nodule in the periphery of the right upper lobe measuring 10 mm (series 7 image 83) . Innumerable smaller solid nodules noted bilaterally with an upper lobe predominance more prevalent on the right.. Pulmonary arteries are not significantly enlarged relative to adjacent bronchi. Trace interlobular septal thickening at the apices and lung bases. Several nodules are marked on the images as examples. Trace centrilobular emphysema suspected. Musculoskeletal: Degenerative changes of the spine. IMPRESSION: 1. No evidence of acute aortic injury. No acute intrathoracic pathology. 2. Multiple solid nodules bilaterally greater on the right with an upper lobe predominance. These ar e nonspecific and could potentially relate to smoking-related lung injury or granulomatous disease in the appropriate clinical setting. 3. Dominant solid spiculated 10 mm right upper lobe nodule. While this could relate to the aforement ioned multiple solid pulmonary nodules, a neoplastic etiology is not excluded given the size and appe arance. Follow-up per Fleischner Society 2017 recommendations below. 4. Trace emphysema suspected. Summary of Fleischner Society 2017 Recommendations (H Gabo et al. Guidelines for management of i ncidental pulmonary nodules detected on CT images: From the Fleischner Society 2017. Radiology 2017; 284: 228-243.) SOLID NODULES Single nodule; size < 6 mm * Low risk patients: No routine follow-up * High risk patients: Optional CT at 12 months Single nodule; size 6-8 mm * Low risk patients: CT at 6-12 months, then consider CT at 18-24 months * High risk patients: CT at 6-12 months, then at 18-24 months Single nodule; size > 8 mm * Either low or high risk patients: Considered CT at 3 months, PET/CT, or tissue sampling Multiple nodules; size < 6 mm * Low risk patients: No routine follow up * High risk patients: Optional CT at 12 months Multiple nodules; size 6-8 mm * Low risk patients: CT at 3-6 months, then consider CT at 18-24 months * High risk patients: CT at 3-6 months, then at 18-24 months Multiple nodules; size > 8 mm * Low risk patients: CT at 3-6 months, then consider at 18-24 months * High risk patients: CT at 3-6 months, then at 18-24 months SUBSOLID NODULES Single ground-glass nodule * Nodule size < 6 mm: No routine follow-up * Nodule size > or = 6 mm: CT at 6-12 months to confirm persistence, then CT every 2 years until 5 y ears Single part-solid nodule * Nodule size < 6 mm: No routine follow-up * Nodules size > or = 6 mm: CT at 3-6 months to confirm persistence. If unchanged and solid componen t remains < 6 mm, annual CT should be performed for 5 years Multiple nodules * Nodule size < 6 mm: CT at 3-6 months. If stable, consider CT at 2 and 4 years. * Nodules size > or = 6 mm: CT at 3-6 months. Subsequent management based on the most suspicious nod ule(s) NOTE: 1) These guidelines apply to incidental nodules. These guidelines do NOT apply to patients younger th an 35 years, immunocompromised patients, or patients with cancer. 2) Risk categories: * Low risk patients: Minimal or absent history of smoking and/or other known risk factors * High risk patients: History of smoking, exposure to other carcinogens, emphysema, fibrosis, upper lobe location, family history of lung cancer, etc. 3) If a nodule up to 8 mm is partly solid or is ground glass, further follow-up is required after 24 months to exclude possible slow growing adenocarcinoma. Electronically signed by: Chandler Mendoza M.D. 11/16/2018 4:04 PM
--- NOTE | 2018-11-16 16:41 | Emergency Department Note ---
Entered by Jareth Estarda acting as a scribe for Chavo Andujar MD History of Present Illness General Chief complaint: Back Injury/Pain Stated complaint: cp/back pain Time Seen by Provider: 11/16/18 11:10 Source: patient History of Present Illness Provider complaint: back pain Onset (ago): day(s) 3 Location: back Radiation: non-radiation Pain Consistency: + constant Maximum Pain Intensity: 10 Associated symptoms: + denies other symptoms and + fever/chills The patient is a 68 y/o female w/ PMHx diabetes, CAD, COPD, PVD, HTN who presents to the ED w/ CC of constant upper back pain beginning three days ago. The patient states that she has had back pain off and on for years but the pain has been getting worse today. The patient notes that she is on 2 blood thinners Plavix and a new one she is unsure of the name. She states that her hemoglobin was low today at rehab as well. The patient is s/p thrombectomy and fen-fen BPG. She notes she has been having some right leg swelling and bruising following the surgery. The patient reports having black stool and chills recently. She denies falls, and any other symptoms. Home Medications Home Medications Medication Instructions Recorded Confirmed Type aspirin 81 mg PO QAM 11/06/18 11/16/18 History atorvastatin 40 mg PO QPM 11/06/18 11/16/18 History buspirone 15 mg PO BID 11/06/18 11/16/18 History carvedilol 3.125 mg PO BID 11/06/18 11/16/18 History clopidogrel 75 mg PO QAM 11/06/18 11/16/18 History fluticasone propionate 1 spray INTRANASAL DAILY PRN 11/06/18 11/16/18 History furosemide 40 mg PO QAM 11/06/18 11/16/18 History gabapentin 100 mg PO TID 11/06/18 11/16/18 History glipizide 10 mg PO BID 11/06/18 11/16/18 History lisinopril 2.5 mg PO QAM 11/06/18 11/16/18 History loratadine 10 mg PO QAM 11/06/18 11/16/18 History omeprazole 40 mg PO BID 11/06/18 11/16/18 History pioglitazone 30 mg PO QAM 11/06/18 11/16/18 History docusate sodium 100 mg PO BID #60 cap 11/10/18 11/16/18 Rx oxycodone-acetaminophen [Percocet] 1 tab PO Q6H PRN #60 tab 11/10/18 11/16/18 Rx polyethylene glycol 3350 [Miralax] 17 g PO DAILY PRN #30 ea 11/10/18 11/16/18 Rx rivaroxaban [Xarelto] 2.5 mg PO BID #60 tab 11/10/18 11/16/18 Rx acetaminophen 650 mg PO Q6H PRN 11/16/18 11/16/18 History albuterol sulfate [Ventolin HFA] 2 puff INHALATION Q4 PRN 11/16/18 11/16/18 History magnesium hydroxide 30 ml PO UD PRN 11/16/18 11/16/18 History nicotine [Nicoderm CQ] 1 patch TRANSDERMAL QAM 11/16/18 11/16/18 History ondansetron HCl 4 mg PO Q6 PRN 11/16/18 11/16/18 History Allergies Allergy/AdvReac Type Severity Reaction Status Date / Time Penicillins Allergy Mild Vomiting Verified 11/16/18 13:08 mushroom Allergy Verified 11/16/18 13:08 strawberry Allergy Verified 11/16/18 13:08 gluten AdvReac Mild unknown Unverified 11/16/18 13:08 nitroglycerin AdvReac Mild DECREASED Verified 11/16/18 13:08 BP hydrocodone [From Lortab] AdvReac Vomiting Verified 11/16/18 13:08 Past Med/Surg History Medical History Critical limb ischemia with history of revascularization of same extremity (Ac [place]) RLE COPD (chronic obstructive pulmonary disease) CVA (cerebral vascular accident) Coronary artery disease, occlusive Diabetes mellitus type 2 with atherosclerosis of arteries of extremities H/O: hysterectomy HTN (hypertension) Hyperlipidemia Insulin dependent diabetes mellitus Myocardial infarction x2 with stent PVD (peripheral vascular disease) Tobacco use disorder, continuous 2ppd Surgical History Status post carotid endarterectomy right Status post femoral-popliteal bypass surgery 2004 Social History Preferred Language: Portuguese Communication Ability: Effective Beliefs That Will Affect Care: None Current Living Situation: Family Feels Safe at Home: Yes Smoking Status: Current every day smoker Tobacco Type: cigarettes ; Cigarettes Per Day: 2ppd ; Second Hand Exposure: Yes ; Hx Alcohol Use: No Hx Substance Use: No Review of Systems See HPI for pertinent positives & negatives. and A total of 10 systems reviewed and were otherwise negative Physical Exam Vital Signs Vital Signs - 24 hr 11/16/18 10:09 11/16/18 10:17 11/16/18 10:34 Temperature 36.6 C Temperature Source Oral Sepsis Recent Fever Within 48 Hours No Sepsis New/Unexplained Change in Mental Status No Sepsis Action Taken by Nursing No Action Required Pulse Rate 97 H Pulse Rate from SpO2 Sensor Respiratory Rate 16 Blood Pressure 154/82 H Blood Pressure Mean 106 Pulse Oximetry 98 98 98 Oxygen Delivery Method Room Air Room Air Room Air 11/16/18 11:00 11/16/18 11:31 11/16/18 11:36 Temperature Temperature Source Sepsis Recent Fever Within 48 Hours Sepsis New/Unexplained Change in Mental Status Sepsis Action Taken by Nursing Pulse Rate 95 H 106 H Pulse Rate from SpO2 Sensor Respiratory Rate 18 18 Blood Pressure 108/71 102/71 Blood Pressure Mean 83 81 Pulse Oximetry 98 99 Oxygen Delivery Method Room Air Room Air Room Air 11/16/18 12:00 11/16/18 12:30 11/16/18 13:31 Temperature Temperature Source Sepsis Recent Fever Within 48 Hours Sepsis New/Unexplained Change in Mental Status Sepsis Action Taken by Nursing Pulse Rate 101 H 92 H 96 H Pulse Rate from SpO2 Sensor 95 H 105 H Respiratory Rate 16 16 21 Blood Pressure 116/57 L 117/63 119/67 Blood Pressure Mean 76 81 84 Pulse Oximetry 98 100 94 Oxygen Delivery Method Room Air 11/16/18 13:46 11/16/18 13:52 11/16/18 14:00 Temperature 37.2 C Temperature Source Oral Sepsis Recent Fever Within 48 Hours Sepsis New/Unexplained Change in Mental Status Sepsis Action Taken by Nursing Pulse Rate 102 H 93 H 89 Pulse Rate from SpO2 Sensor 97 H 92 H Respiratory Rate 21 15 21 Blood Pressure 107/65 126/47 L 128/58 L Blood Pressure Mean 79 73 81 Pulse Oximetry 99 92 98 Oxygen Delivery Method Room Air Room Air 11/16/18 14:05 11/16/18 14:09 11/16/18 14:15 Temperature 36.7 C Temperature Source Oral Sepsis Recent Fever Within 48 Hours Sepsis New/Unexplained Change in Mental Status Sepsis Action Taken by Nursing Pulse Rate 93 H 91 H 101 H Pulse Rate from SpO2 Sensor 95 H 99 H Respiratory Rate 20 21 16 Blood Pressure 114/74 114/74 122/74 Blood Pressure Mean 87 87 90 Pulse Oximetry 100 96 98 Oxygen Delivery Method Room Air Room Air 11/16/18 14:20 11/16/18 14:30 11/16/18 14:50 Temperature 37 C 37.1 C Temperature Source Oral Oral Sepsis Recent Fever Within 48 Hours Sepsis New/Unexplained Change in Mental Status Sepsis Action Taken by Nursing Pulse Rate 107 H 105 H 95 H Pulse Rate from SpO2 Sensor 104 H Respiratory Rate 18 16 20 Blood Pressure 126/73 126/73 123/73 Blood Pressure Mean 90 90 89 Pulse Oximetry 100 98 99 Oxygen Delivery Method Room Air 11/16/18 15:56 Temperature 37.2 C Temperature Source Oral Sepsis Recent Fever Within 48 Hours Sepsis New/Unexplained Change in Mental Status Sepsis Action Taken by Nursing Pulse Rate 88 Pulse Rate from SpO2 Sensor Respiratory Rate 18 Blood Pressure 111/70 Blood Pressure Mean 83 Pulse Oximetry 99 Oxygen Delivery Method GENERAL: Mild distress, well nourished, non-toxic. EYE EXAM: Normal conjunctiva. PERRL, no anisocoria and EOM's grossly intact w/o pain. OROPHARYNX: Moist mucus membranes. Grossly normal dentition. NECK: Supple, no nuchal rigidity, no adenopathy, non-tender. No signs of meningismus. LUNGS: Clear to auscultation. Normal chest wall mechanics. HEART: NSR, no MRG. ABDOMEN: Abdomen soft, non-tender, normo-active bowel sounds, no masses, no rebound or guarding. BACK: No CVA TTP. Lower thoracic TTP w/o stepoffs. SKIN: No rashes and bruising noted over RLE thigh. UPPER EXTREMITIES: Upper extremities are grossly normal. LOWER EXTREMITIES: No pitting edema. No calf pain. Mild aged ecchymosis and swelling to right medial thigh, well perfused. Compartments soft. NEURO EXAM: A&O x3, cranial nerves II-XII grossly intact, normal speech, moves all 4 extremities on command w/o issue. RECTAL: melenic stool positive, hem positive Course 1127: Past medical records reviewed. The patient was evaluated in room C10. A complete history and physical exam was performed. 1200: The patient consented and the daughter is the power of commercial litigation attorney. 1331: I spoke with Antonella Sewell, she will evaluate for further management. 1408: I spoke with Maxine jean baptiste PA-C, she recommends no compression and continued blood thinner for the patient. Administered Medications Pantoprazole Sodium 40 mg/ (Dextrose) 100 mls @ 20 mls/hr IV Q5H FABIAN Stop: 12/16/18 12:14 Last Admin: 11/16/18 13:31 Dose: 20 mls/hr Documented by: [id number] Ioversol (Optiray 320 125ml) 120 ml IV ONCE PRN PRN Reason: Interaction Checking Stop: 11/20/18 13:03 Last Admin: 11/16/18 13:04 Dose: 120 ml Documented by: [id number] Ioversol (Optiray 320 125ml) 116 ml IV ONCE PRN PRN Reason: Interaction Checking Stop: 11/20/18 15:42 Last Admin: 11/16/18 15:44 Dose: 116 ml Documented by: [id number] Discontinued Medications Fentanyl Citrate (Fentanyl Citrate) 50 mcg IV NOW STA Stop: 11/16/18 12:56 Last Admin: 11/16/18 13:01 Dose: 50 mcg Documented by: [id number] Fentanyl Citrate (Fentanyl Citrate) 25 mcg IV NOW STA Stop: 11/16/18 16:08 Last Admin: 11/16/18 16:16 Dose: 25 mcg Documented by: [id number] Pantoprazole Sodium 80 mg/ (Dextrose) 120 mls @ 480 mls/hr IV NOW STA Stop: 11/16/18 12:17 Last Infusion: 11/16/18 13:21 Dose: 0 mls/hr Documented by: [id number] Admin: 11/16/18 13:06 Dose: 480 mls/hr Documented by: [id number] Morphine Sulfate (Morphine Sulfate) 2 mg IV NOW STA Stop: 11/16/18 14:22 Last Admin: 11/16/18 14:28 Dose: 2 mg Documented by: [id number] Medical Decision Making Medical Records Attestation: I reviewed the patient's medical records. Home Medications Current Medication List: was personally reviewed by me Laboratory Data Attestation: I reviewed the patient's lab results. Result diagrams: 11/16/18 10:10 11/16/18 10:10 Lab Results 11/16/18 11/16/18 11/16/18 Range/Units 10:10 10:10 10:10 WBC 10.81 H (4.8-10.8) K/uL RBC 2.73 L (4.2-5.4) M/uL Hgb 7.0 L (12.0-16.0) g/dL Hct 22.9 L (37-47) % MCV 83.9 (80-100) fL MCH 25.6 (25-34) pg MCHC 30.6 L (32-36) g/dL RDW Std Deviation 52.5 H (36.4-46.3) fL RDW Coeff of Shahrzad 17.2 H (11.5-14.5) % Plt Count 370 (130-400) K/uL MPV 9.9 (7.4-10.4) fL Immature Gran % (Auto) 0.5 % Neut % (Auto) 78.1 % Lymph % (Auto) 11.8 % [place] % (Auto) 6.4 % Eos % (Auto) 3.0 % Baso % (Auto) 0.2 % Immature Gran # (Auto) 0.05 H (0.00-0.02) K/uL Neut # (Auto) 8.45 H (1.4-6.5) K/uL Lymph # (Auto) 1.28 (1.2-3.4) K/uL [place] # (Auto) 0.69 H (0.11-0.59) K/uL Eos # (Auto) 0.32 (0-0.5) K/uL Baso # (Auto) 0.02 (0-0.2) K/uL Polychromasia 1+ Hypochromasia Present Basophilic Stippling 1+ PT 10.9 (9.0-12.0) Seconds INR 1.1 (0.9-1.1) APTT 27.9 (21.0-31.0) Seconds PTT Ratio 1.0 Sodium 137 (136-145) mmol/L Potassium 4.3 (3.5-5.1) mmol/L Chloride 101 (98-107) mmol/L Carbon Dioxide 30 (21-32) mmol/L Anion Gap 6.0 (3-11) BUN 22 H (7-18) mg/dl Creatinine 1.03 (0.6-1.2) mg/dl Est Cr Clr Drug Dosing 53.7 ml/min Est GFR ( Amer) 64.2 Est GFR (Non-Af Amer) 55.4 BUN/Creatinine Ratio 20.9 H (10-20) Glucose 135 H (70-99) mg/dl Calcium 9.1 (8.5-10.1) mg/dl Total Bilirubin 0.8 (0.2-1) mg/dl AST 14 L (15-37) U/L ALT 16 (12-78) U/L Alkaline Phosphatase 93 (45-117) U/L Troponin I < 0.015 (0-0.045) ng/ml Total Protein 7.0 (6.4-8.2) gm/dl Albumin 3.0 L (3.4-5.0) gm/dl Globulin 4.0 (2.5-4.0) gm/dl Albumin/Globulin Ratio 0.8 L (0.9-2) Lipase (73-393) U/L Urine Color Urine Appearance (Clear) Urine pH (4.5-7.5) Ur Specific [place] (1.000-1.030) Urine Protein (Negative) Urine Glucose (UA) (Negative) Urine Ketones (Negative) Urine Blood (Negative) Urine Nitrite (Negative) Urine Bilirubin (Negative) Urine Urobilinogen (Negative) Ur Leukocyte Esterase (Negative) Urine WBC (Auto) (0-5) /hpf Urine RBC (Auto) (0-4) /hpf U Hyaline Cast (Auto) (0-5) /lpf U Epithel Cells (Auto) (0-5) /lpf Urine Bacteria (Auto) (Negative) Blood Type Antibody Screen Crossmatch 11/16/18 11/16/18 11/16/18 Range/Units 10:10 11:00 11:52 WBC (4.8-10.8) K/uL RBC (4.2-5.4) M/uL Hgb (12.0-16.0) g/dL Hct (37-47) % MCV (80-100) fL MCH (25-34) pg MCHC (32-36) g/dL RDW Std Deviation (36.4-46.3) fL RDW Coeff of Shahrzad (11.5-14.5) % Plt Count (130-400) K/uL MPV (7.4-10.4) fL Immature Gran % (Auto) % Neut % (Auto) % Lymph % (Auto) % [place] % (Auto) % Eos % (Auto) % Baso % (Auto) % Immature Gran # (Auto) (0.00-0.02) K/uL Neut # (Auto) (1.4-6.5) K/uL Lymph # (Auto) (1.2-3.4) K/uL [place] # (Auto) (0.11-0.59) K/uL Eos # (Auto) (0-0.5) K/uL Baso # (Auto) (0-0.2) K/uL Polychromasia Hypochromasia Basophilic Stippling PT (9.0-12.0) Seconds INR (0.9-1.1) APTT (21.0-31.0) Seconds PTT Ratio Sodium (136-145) mmol/L Potassium (3.5-5.1) mmol/L Chloride (98-107) mmol/L Carbon Dioxide (21-32) mmol/L Anion Gap (3-11) BUN (7-18) mg/dl Creatinine (0.6-1.2) mg/dl Est Cr Clr Drug Dosing ml/min Est GFR ( Amer) Est GFR (Non-Af Amer) BUN/Creatinine Ratio (10-20) Glucose (70-99) mg/dl Calcium (8.5-10.1) mg/dl Total Bilirubin (0.2-1) mg/dl AST (15-37) U/L ALT (12-78) U/L Alkaline Phosphatase (45-117) U/L Troponin I (0-0.045) ng/ml Total Protein (6.4-8.2) gm/dl Albumin (3.4-5.0) gm/dl Globulin (2.5-4.0) gm/dl Albumin/Globulin Ratio (0.9-2) Lipase 100 (73-393) U/L Urine Color Yellow Urine Appearance Clear (Clear) Urine pH 7.0 (4.5-7.5) Ur Specific [place] 1.010 (1.000-1.030) Urine Protein Negative (Negative) Urine Glucose (UA) Negative (Negative) Urine Ketones Negative (Negative) Urine Blood Trace H (Negative) Urine Nitrite Negative (Negative) Urine Bilirubin Negative (Negative) Urine Urobilinogen Negative (Negative) Ur Leukocyte Esterase Negative (Negative) Urine WBC (Auto) 0 (0-5) /hpf Urine RBC (Auto) 0-4 (0-4) /hpf U Hyaline Cast (Auto) 0 (0-5) /lpf U Epithel Cells (Auto) 0-5 (0-5) /lpf Urine Bacteria (Auto) Negative (Negative) Blood Type A Positive Antibody Screen NEGATIVE Crossmatch See Detail Imaging Data Radiologist's Impression: Radiology results as stated below per my review and the radiologist's interpretation: XR chest 1V portable HISTORY: 68 years-old Female Chest Pain acute atypical chest pain COMPARISON: CTA 11/06/2018, chest radiograph 07/02/2008 TECHNIQUE: Portable AP view of the chest FINDINGS: Cardiomediastinal and hilar silhouettes are within normal limits. No pneumothorax, pleural effusion, focal airspace consolidation or overt pulmonary edema. Multiple healed remote left-sided rib fractures. Degenerative changes of the shoulders and spine. IMPRESSION: No acute process. The above report was generated using voice recognition software. It may contain grammatical, syntax or spelling errors. Electronically signed by: Riki Figueredo M.D. 11/16/2018 10:[address] angio abdomen pelvis w con CLINICAL HISTORY: 68 years-old Female presenting with back pain, low hgb, recent RLE fem/fem bypass/thro. TECHNIQUE: Multidetector CT angiography of the abdomen and pelvis was performed after the administration of intravenous contrast. 3-D volumetric and/or maximum intensity projection (MIP) images were subsequently reconstructed for review. IV contrast: 120 mL of Optiray 320. One or more dose lowering techniques were used consistent with the principles of ALARA (as low as reasonably achievable), including automatic exposure control, mA or kV adjustment to individual patient size, and/or use of iterative reconstruction. Stenosis measurements were based on NASCET-like criteria (distal lumen diameter as the denominator for stenosis measurement). COMPARISON: 11/06/2018. CT DOSE (mGy.cm): The estimated cumulative dose is 1036.93. FINDINGS: Paying Teller topogram: Unremarkable. Vasculature: There has been interval femoral-femoral bypass grafting for the severe stenosis and/or occlusion of the right external iliac artery and recent bypass graft occlusion. The revised graft contains trace thrombus in the midportion (series 3 image 392 and near the insertion at the right common femoral artery (series 3 im age 389). Significant atherosclerotic irregularity and diminutive caliber of the bilateral superficial and deep femoral arteries. Superficial to the right femoral vessels is a small hematoma. This is separate from the vessels by distinct fat plane and is not worrisome for pseudoaneurysm this measures up to 5.6 cm in diameter. Mild stranding surrounding the right femoral vessels and bypass graft insertion site likely postsurgical. Abdominal aorta again demonstrates diffuse calcified and noncalcified atherosclerotic plaque resulting in severe luminal irregularity though overall normal in caliber. Less than 50% stenosis of the origins of the celiac and left renal artery. Over 50% stenosis of the origin and proximal portion of the right renal artery is suggested. The superior mesenteric artery is not significantly narrowed at its origin though immediately distal to this there is at least 50% narrowing of its proximal course. Conventional hepatic arterial anatomy. 2 renal arteries bilaterally with a dominant artery mentioned above. Remaining abdomen and pelvis: Lung bases: Normal heart size. Coronary artery calcification. No pericardial or pleural effusion. No focal infiltrate or nodule at the lung bases. Liver: Normal morphology. No focal lesion allowing for the early arterial phase of contrast. Patent hepatic vasculature. Biliary: No intrahepatic or extrahepatic biliary ductal dilatation. Normal gallbladder. Pancreas: Normal. Spleen: Normal. Adrenal glands: Normal. Kidneys and ureters: Normal. No hydronephrosis. Bladder: Normal. Pelvic organs: Uterus surgically absent. Normal ovaries. Bowel: Mild to moderate stool burden throughout normal caliber colon and no b owel obstruction. The appendix is normal. Peritoneal cavity: No free fluid or intraperitoneal gas. Lymph nodes: No enlarged lymph nodes in the abdomen or pelvis. Abdominal wall: Foci of infiltration in the anterior abdominal wall likely relates to medication administration. Musculoskeletal: Degenerative changes of the spine. Osteopenia suspected. IMPRESSION: 1. Interval revision of the femoral-femoral bypass graft, which is now patent. Small foci of intragraft thrombus in the midportion and at the insertion at the right common femoral artery. 2. 5.6 cm hematoma superficial to the operative bed in the right inguinal region. No evidence of pseudoaneurysm. 3. Severe atherosclerosis with multivessel stenoses as above. 4. Stool burden suggests constipation. Electronically signed by: Chandler Mendoza M.D. 11/16/2018 1:[address] angio femur RT wo/w con HISTORY: to distal thigh, recent fem/fem bypass and thrombus. Right groin pain. TECHNIQUE: Multiaxial CT images of the right thigh was performed following the use of intravenous contrast to evaluate the major arterial structures. Maximal intensity projection images were also performed at the workstation. COMPARISON STUDY: Lower extremity runoff 11/06/2018. FINDINGS: The visualized femoral-femoral graft is now patent. Moderate to severe multifocal narrowing throughout the [place] right superficial femoral artery and right popliteal artery. There are multifocal areas within the distal superficial femoral artery and popliteal artery demonstrating between 50 and 75% stenosis. This is most pronounced within the distal superficial femoral artery on image 349. There is also a focal dissection within the proximal popliteal artery best seen on image 409. There is a 12 x 6 x 5 cm ill-defined mixed density fluid collection within the right groin subcutaneous soft tissues extending into the right proximal thigh. This is consistent with a hematoma. No active extravasation to suggest a pseudoaneurysm. Subcutaneous edema within the right lower leg. No fractures within the visualized osseous structures. IMPRESSION: 1. A 12 x 6 x 5 cm subcutaneous hematoma within the right groin extending into the proximal right thigh. No evidence for pseudoaneurysm. 2. The femorofemoral graft is now patent. 3. Multifocal moderate to severe narrowing throughout the [place] right superficial femoral artery and visualized bile duct to arteries described above. 4. 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 Both lumens remain opacified. Electronically signed by: Erick Crandall M.D. 11/16/2018 1:24 PM ECG Data Attestation: I personally reviewed and interpreted this ECG as follows: Indication: back/shoulder pain Rate (beats per minute): 98 Rhythm: sinus with SA Findings: + other (normal axis ) and + T-wave inversion (Inferior) Blood Pressure Blood Pressure Findings: Normal blood pressure Blood Pressure Disposition: further management by hospitalist DAGO Cuellar Differential diagnosis: Etiologies such as esophagitis, variceal bleed, [place], [place]-Carter tear, gastritis, peptic ulcer disease, AVM, inflammatory bowel disease, ischemia, diverticulosis, colitis, malignancy, coagulopathy, thrombocytopenia, fissure, hemorrhoid, epistaxis , as well as others were entertained. The patient is a 68 y/o female w/ PMHx diabetes, CAD, COPD, PVD, HTN who presents to the ED w/ CC of constant upper back pain beginning three days ago. Patient was seen and evaluated the bedside. The patient did present with some back pain as well as some low blood counts. The patient was referred here due to low hemoglobin. Patient is on Plavix and Xarelto after recent femorofemoral bypass and thrombectomy. The patient did receive some pain medication did a b lood work completed and did have CT angios of the abdomen pelvis along with the right lower extremity. Patient does have a notable hematoma and does have a focal dissection of the popliteal artery. No other acute findings. I did discuss case with the on-call vascular surgery PA who recommended not holding the Xarelto given the recent thrombectomy. She did state that if this is really a concern GI or the hospitalist may speak with Dr. Jara as he is the primary surgeon for further discussion about stopping the anticoagulant medication.. Patient did have heme positive stool for which she did receive 2 units of PRBCs which were ordered and the patient was consented. Patient was also started on Protonix. I did speak the on-call hospitalist agreed to further evaluate for the patient. Patient was admitted to the medicine service. Chest x-ray did not show any evidence of mediastinal widening. Impression & Plan GI (gastrointestinal bleed), Hematoma of right thigh, Symptomatic anemia, Dissection of other artery Critical Care Time Critical Care Time: Yes Total Critical Care Time: 75 I have personally spent greater than 75 minutes of critical care time in direct management of this patient. This includes bedside care, interpretation of diagnostic studies, and testing, discussion with consultants, patient, and family members, and other require inpatient management activities. This 75 minutes is in excess of all separately billable procedures. Discharge Plan Visit Data Chief Complaint: Back Injury/Pain Stated Complaint: cp/back pain ED Provider: Chavo Andujar Discharge Problem: GI (gastrointestinal bleed), Hematoma of right thigh, Symptomatic anemia, Dissection of other artery Patient Disposition: Being Evaluated by Hospitalist Forms Stand Alone Forms: My [facility] [place] [facility] Prescriptions Prescriptions: No Action furosemide 40 mg tablet 40 mg PO QAM RF: 0 atorvastatin 40 mg tablet 40 mg PO QPM RF: 0 glipizide 10 mg tablet 10 mg PO BID RF: 0 clopidogrel 75 mg tablet 75 mg PO QAM RF: 0 omeprazole 40 mg capsule,delayed release(DR/EC) 40 mg PO BID RF: 0 aspirin 81 mg Tablet,Delayed Release (Dr/Ec) 81 mg PO QAM RF: 0 carvedilol 3.125 mg tablet 3.125 mg PO BID RF: 0 gabapentin 100 mg capsule 100 mg PO TID RF: 0 pioglitazone 30 mg tablet 30 mg PO QAM RF: 0 fluticasone propionate 50 mcg/actuation spray,suspension 1 spray intranasal DAILY PRN (Reason: Nasal Congestion) RF: 0 lisinopril 2.5 mg tablet 2.5 mg PO QAM RF: 0 loratadine 10 mg tablet 10 mg PO QAM RF: 0 buspirone 15 mg tablet 15 mg PO BID RF: 0 oxycodone-acetaminophen [Percocet] 5-325 mg Tablet 1 tab PO Q6H PRN (Reason: Pain) Qty: 60 RF: 0 docusate sodium 100 mg Capsule 100 mg PO BID Qty: 60 RF: 0 Xarelto 2.5 mg Tablet 2.5 mg PO BID Qty: 60 RF: 5 polyethylene glycol 3350 [Miralax] 17 gram Powder In Packet 17 g PO DAILY PRN (Reason: Constipation) Qty: 30 RF: 0 acetaminophen 325 mg Tablet 650 mg PO Q6H PRN (Reason: Pain) RF: 0 nicotine [Nicoderm CQ] 14 mg/24 hr Patch 24 Hour 1 patch TRANSDERMAL QAM RF: 0 ondansetron HCl 4 mg Tablet 4 mg PO Q6 PRN (Reason: Nausea) RF: 0 magnesium hydroxide 400 mg/5 mL Suspension 30 ml PO UD PRN (Reason: Constipation) RF: 0 albuterol sulfate [Ventolin HFA] 90 mcg/actuation Hfa Aerosol Inhaler 2 puff INHALATION Q4 PRN (Reason: Shortness Of Breath) RF: 0 Referrals Referrals: Salvatore Adams MD [Primary Care Provider] - Discharge Problem: GI (gastrointestinal bleed) Qualifiers: GI bleed type/associated pathology: unspecified gastrointestinal hemorrhage type Qualified Code(s): K92.2 - Gastrointestinal hemorrhage, unspecified Hematoma of right thigh Qualifiers: Encounter type: initial encounter Qualified Code(s): S70.11XA - Contusion of right thigh, initial encounter The scribe's documentation has been prepared under my direction and personally reviewed by me in its entirety. I confirm that the note above accurately reflects all work, treatment, procedures, and medical decision making performed by me.
[2018-11-16] MEDS ORDERED: ACETAMINOPHEN 325 MG TAB PO PRN (18:27)
[2018-11-16] MEDS ORDERED: POLYETHYLENE (MIRALAX) 17 GM PACK PO PRN (18:27)
[2018-11-16] MEDS ORDERED: FLUTICASONE PROPIONATE NA SPR 16 GM BTL NAE PRN (18:27)
[2018-11-16] MEDS ORDERED: MAGNESIUM HYDROXIDE SUSP 30 ML UDC PO PRN (18:27)
[2018-11-16] MEDS ORDERED: ALBUTEROL HFA 8 GM INHALER INH PRN (18:27)
[2018-11-16] MEDS ORDERED: CARBOHYDRATES FOR HYPOGLYCEMIA PO PRN (18:29)
[2018-11-16] MEDS ORDERED: GLUCOSE 40% GEL 15 GM TUBE PO PRN (18:29)
[2018-11-16] MEDS ORDERED: GLUCAGON FOR INJ 1 MG VIAL SQ PRN (18:29)
[2018-11-16] MEDS ORDERED: GLUCOSE 10 TABS/TUBE PO PRN (18:29)
[2018-11-16] MEDS ORDERED: DEXTROSE 50% 50 ML SYRINGE IV PRN (18:29)
[2018-11-16] MEDS: MoRPHine SULFATE 4 MG/ML 1 ML CARP\\VIAL IV PRN ×2 (18:39→23:43)
[2018-11-16] MEDS: SODIUM CHLORIDE 0.9% 1000ML 1,000 ML IV SCH (20:01)
--- NOTE | 2018-11-16 20:30 | XRay Report ---
XR lumbar spine 2-3V CLINICAL HISTORY: back pain COMPARISON STUDY: No previous studies for comparison. FINDINGS: There is contrast within the renal collecting systems and bladder secondary to a prior CT s can. No fractures or subluxations are visualized. There are mild degenerative changes. IMPRESSION: Mild degenerative change. No fractures or subluxations identified. Electronically signed by: Abraham Rutledge M.D. 11/16/2018 8:29 PM
--- NOTE | 2018-11-16 20:31 | XRay Report ---
XR thoracic spine 3V routine CLINICAL HISTORY: back pain COMPARISON STUDY: No previous studies for comparison. FINDINGS: There are old left-sided rib fractures. The paraspinal line is not displaced. There are mod erate multilevel degenerative changes. No fractures or subluxations are visualized. No destructive le sions are evident. IMPRESSION: 1. Moderate degenerative change 2. No fractures subluxations or destructive lesions are visualized Electronically signed by: Abraham Rutledge M.D. 11/16/2018 8:30 PM
[2018-11-16 21:03] LABS: Hematocrit (blood only) 29.3 % (37-47); Hemoglobin 9.5 g/dL (12.0-16.0)
[2018-11-16] MEDS: BusPIRone 15 MG TAB PO SCH (21:18)
[2018-11-16] MEDS: CARVEDILOL 3.125 MG TAB PO SCH (21:19)
[2018-11-16] MEDS: ATORVASTATIN 40 MG TAB PO SCH (21:19)
[2018-11-16] MEDS: DOCUSATE SODIUM 100 MG CAP PO SCH (21:19)
[2018-11-16] MEDS: INSULIN ASPART 100 UNITS/ML 3 ML PEN SC SCH (21:20)
[2018-11-16] MEDS: GABAPENTIN 100 MG CAP PO SCH (21:20)
[2018-11-16] MEDS: OXYCODONE/ACETAMINOPHEN 5mg/325mg TAB PO PRN (21:25)
[2018-11-17] MEDS: PANTOprazole 40 MG in DEXTROSE 5% 100 ML IV SCH ×5 (04:00→23:15)
[2018-11-17] MEDS: MoRPHine SULFATE 4 MG/ML 1 ML CARP\\VIAL IV PRN ×4 (04:45→22:59)
[2018-11-17 05:46] LABS: Hematocrit (blood only) 27.9 % (37-47); Mean Corpuscular Hemoglobin 27.4 pg (25-34); Mean Corpuscular Hgb Conc 32.3 g/dL (32-36); Mean Corpuscular Volume 84.8 fL (80-100); Mean Platelet Volume 9.8 fL (7.4-10.4); Platelet Count 304 K/uL (130-400); RDW Standard Deviation 49.3 fL (36.4-46.3); Red Blood Count 3.29 M/uL (4.2-5.4); White Blood Count 9.85 K/uL (4.8-10.8)
[2018-11-17 06:03] LABS: BUN Creatinine Ratio 15.5 (10-20); Calcium 8.3 mg/dl (8.5-10.1); Creatinine Clr Calc Pharmacy 45.8 ml/min; Est GFR (African American) 53.9; Est GFR (Non-African American) 46.5
[2018-11-17 06:29] LABS: Basophils # (auto) 0.05 K/uL (0-0.2); Basophils % (auto) 0.5 %; Eosinophils # (auto) 0.45 K/uL (0-0.5); Eosinophils % (auto) 4.6 %; Immature Granulocytes # (auto) 0.04 K/uL (0.00-0.02); Immature Granulocytes % (auto) 0.4 %; Lymphocytes # (auto) 2.51 K/uL (1.2-3.4); Lymphocytes % (auto) 25.5 %; Monocytes # (auto) 0.86 K/uL (0.11-0.59); Monocytes % (auto) 8.7 %; Neutrophils # (auto) 5.94 K/uL (1.4-6.5); Neutrophils % (auto) 60.3 %; Polychromasia 1+
[2018-11-17] MEDS: INSULIN ASPART 100 UNITS/ML 3 ML PEN SC SCH ×4 (07:39→23:05)
[2018-11-17] MEDS: BusPIRone 15 MG TAB PO SCH ×2 (08:02→22:50)
[2018-11-17] MEDS: LORATADINE 10 MG TAB PO SCH (08:02)
[2018-11-17] MEDS: DOCUSATE SODIUM 100 MG CAP PO SCH ×2 (08:02→22:51)
[2018-11-17] MEDS: GABAPENTIN 100 MG CAP PO SCH ×3 (08:02→22:53)
[2018-11-17] MEDS: NICOTINE 14 MG/24 HR PATCH TD SCH (08:03)
[2018-11-17] MEDS: CARVEDILOL 3.125 MG TAB PO SCH ×2 (08:25→22:51)
--- NOTE | 2018-11-17 10:25 | Consultation ---
Date of Consultation November 17, 2018 Assessment & Plan (1) Groin hematoma: Pt with post op R groin hematoma, with mild local inflammation and drainage. This is not larger than at discharge last week and actually appears less ecchymotic. No full dehiscence of wound and no active bleeding noted on imaging. Recommend continue abx and pain control and to monitor. Would prefer to continue plavix and ASA unless absolutely necessary to d/c from GI standpoint. Patient was seen, examined, and chart reviewed. Agree with exam and treatment plan of the Vascular PA. Present on Admission?: Yes History of Present Illness Reason for Consultation: R groin hematoma Attending Physician: Ferdinand Ng MD History of Present Illness 68 yo f with multtiple medical problems, about 10 days s/p thrombectomy of L to R fem fem bypass and revision of R groin anastomosis by Dr Jara, now readmitted with possible GI bleed/anemia, seen in consultation today for assessment of R groin wound. Pt states it has been very painful ever since surgery, and causing difficulty with ambulation d/t pain. Pt admits fatigue/malaise as well as some redness and continued swelling at groin. Denies CHRISTENSEN, fever, chills, chest pain, SOB, abd pain, N/V, rest pain, claudication, other complaints. Per RN, pt has had small amt bloody drainage. Imaging demonstrates no active bleeding from R groin. Allergies Allergy/AdvReac Type Severity Reaction Status Date / Time Penicillins Allergy Mild Vomiting Verified 11/16/18 13:08 mushroom Allergy Verified 11/16/18 13:08 strawberry Allergy Verified 11/16/18 13:08 gluten AdvReac Mild unknown Unverified 11/16/18 13:08 nitroglycerin AdvReac Mild DECREASED Verified 11/16/18 13:08 BP hydrocodone [From Lortab] AdvReac Vomiting Verified 11/16/18 13:08 Home Medications Home Medications Medication Instructions Recorded Confirmed Type aspirin 81 mg PO QAM 11/06/18 11/16/18 History atorvastatin 40 mg PO QPM 11/06/18 11/16/18 History buspirone 15 mg PO BID 11/06/18 11/16/18 History carvedilol 3.125 mg PO BID 11/06/18 11/16/18 History clopidogrel 75 mg PO QAM 11/06/18 11/16/18 History fluticasone propionate 1 spray INTRANASAL DAILY PRN 11/06/18 11/16/18 History furosemide 40 mg PO QAM 11/06/18 11/16/18 History gabapentin 100 mg PO TID 11/06/18 11/16/18 History glipizide 10 mg PO BID 11/06/18 11/16/18 History lisinopril 2.5 mg PO QAM 11/06/18 11/16/18 History loratadine 10 mg PO QAM 11/06/18 11/16/18 History omeprazole 40 mg PO BID 11/06/18 11/16/18 History pioglitazone 30 mg PO QAM 11/06/18 11/16/18 History docusate sodium 100 mg PO BID #60 cap 11/10/18 11/16/18 Rx oxycodone-acetaminophen [Percocet] 1 tab PO Q6H PRN #60 tab 11/10/18 11/16/18 Rx polyethylene glycol 3350 [Miralax] 17 g PO DAILY PRN #30 ea 11/10/18 11/16/18 Rx rivaroxaban [Xarelto] 2.5 mg PO BID #60 tab 11/10/18 11/16/18 Rx acetaminophen 650 mg PO Q6H PRN 11/16/18 11/16/18 History albuterol sulfate [Ventolin HFA] 2 puff INHALATION Q4 PRN 11/16/18 11/16/18 History magnesium hydroxide 30 ml PO UD PRN 11/16/18 11/16/18 History nicotine [Nicoderm CQ] 1 patch TRANSDERMAL QAM 11/16/18 11/16/18 History ondansetron HCl 4 mg PO Q6 PRN 11/16/18 11/16/18 History Patient History Medical History Anxiety (Chronic) [place] esophagus (Chronic) Diabetes mellitus, type II (Chronic) CAD (coronary artery disease) (Chronic) COPD (chronic obstructive pulmonary disease) (Chronic) Myocardial infarction (Resolved) x2 with stent CVA (cerebral vascular accident) (Chronic) PVD (peripheral vascular disease) (Chronic) Tobacco use disorder, continuous (Chronic) 2ppd Hyperlipidemia (Chronic) HTN (hypertension) (Chronic) Critical limb ischemia with history of revascularization of same extremity (Resolved) RLE H/O: hysterectomy (Chronic) Coronary artery disease, occlusive Surgical History History of carotid endarterectomy (Chronic) Status post carotid endarterectomy (Chronic) right Status post femoral-popliteal bypass surgery (Chronic) 2004 Family History Other Diabetes Stroke Social History Preferred Language: Bangladeshi Communication Ability: Effective 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 Beliefs That Will Affect Care: None Current Living Situation: Rehab Current Living Situation Comment: rehab after vascular surgery Other Information That Helps Us Care for You: No Feels Safe at Home: Yes Smoking Status: Former smoker Tobacco Type: cigarettes ; Cigarettes Per Day: 1- 2ppd; Currently using nicotine patch since hospitalization ; Do You Dip or Chew Tobacco: No ; Second Hand Exposure: Yes ; Hx Alcohol Use: No Hx Substance Use: No Review of Systems Review of Systems: All systems reviewed & are unremarkable except as noted in HPI & below Physical Exam Constitutional: WD/WN, vitals as above well developed, well nourished, + morbidly obese, cooperative and comfortable; not in distress and not combative Eyes: PERRL, conjunctivae normal, anicteric sclerae EOM intact bilaterally ENMT: Ears: no hearing impairment Nose: no nasal discharge Neck: trachea midline; no neck crepitus and neck nontender Respiratory: normal respiratory effort, lungs clear to auscultation able to speak in complete sentences; does not use accessory muscles and no cough Auscultation: + diminished lung sounds; no rhonchi and no wheezes Cardiovascular: Rate/Rhythm: regular rate and regular rhythm Heart Sounds: no gallop and no murmur Vessels: femoral pulses present, posterior tibial pulses present, dorsalis pedis pulses present, brachial pulses present and radial pulses present; no carotid bruit, no femoral bruit and + abnormal peripheral pulses Extremities: normal capillary refill and + edema (R groin, RLE foot/ankle) Gastrointestinal (Abdomen): normal bowel sounds, soft, nontender, no hepatosplenomegaly Inspection/Auscultation: abdomen normal to inspection and normal bowel sounds; abdomen not distended Percussion/Palpation: abdomen soft; abdomen nontender, no guarding and abdomen not rigid Musculoskeletal: no cyanosis or clubbing, extremities motor strength 5/5 Head/Neck/Chest: normocephalic, head atraumatic and neck supple Extremities: strength 5/5 throughout; full ROM of extremities Skin: no rashes, warm and dry normal turgor, + erythema and + incision (R groin intact, but with slight bloody serous drainage); no rashes, no ulcers, no induration, no dry skin, no eschar and no mottling Trauma: + hematoma R groin hematoma noted, very tender, with mild local erythema. Neurologic: moves all extremities and awake; no focal motor deficits and not confused Speech / Cognition: no expressive aphasia and no receptive aphasia Motor/Sensory: no tremor and no sensory deficit Cranial Nerves: EOM intact bilaterally, normal facial strength and tongue midline Psychiatric: Orientation: alert, oriented x 3 and cooperative Apperance: appropriately dressed and appeared stated age Affect: + depressed affect, + anxious affect and + tearful affect Thought Process: goal directed thought process, linear/logical thought process and clear/coherent thought process Cognition: recent memory grossly intact, remote memory grossly intact, attention grossly intact and language grossly intact Estimated Intelligence: average estimated intelligence Results & Data Vital Signs (Past 12 Hours) Vital Signs Temp Pulse Resp BP Pulse Ox 11/17/18 07:35 37.0 C 75 18 94/59 L 92 11/17/18 04:49 36.8 C 83 17 111/73 95 11/17/18 00:35 36.6 C 85 18 103/62 98
[2018-11-17] MEDS: SODIUM CHLORIDE 0.9% 1000ML 1,000 ML IV SCH ×2 (10:29→22:53)
[2018-11-17] MEDS: OXYCODONE/ACETAMINOPHEN 5mg/325mg TAB PO PRN ×2 (10:54→23:00)
[2018-11-17] MEDS: CIPROFLOXACIN 400 MG/200 ML BAG IV SCH ×2 (11:38→22:50)
--- NOTE | 2018-11-17 11:43 | Gastrointestinal Consultation ---
Date of Consultation November 17, 2018 Assessment & Plan (1) Anemia: 68 year old female admitted w/ back pain, anemia, s/p thrombectomy of L to R fem fem bypass and revision of R groin anastomosis by Dr Jara w/ conflicting report of dark stool prior to arrival. Today, pt notes severe back pain, mild upper abdominal pain but denies any black/bloody stools or emesis for me. S/P RBCs x 2 w/ appropriate response in HGB. No BUN elevation. Recent EGD/Colon reviewed. NPO for bowel rest IV PPI BID Trend H&H Monitor and document all GI output Transfuse PRN per primary team LFTs, lipase WNL No current indication for endoscopic evaluation Thank you for allowing us to participate in the care of this patient. Please call with any acute changes, questions or concerns. Please see addendum below with additional recommendation from my supervising physician. Present on Admission?: Yes (2) Groin hematoma: Present on Admission?: Yes (3) Back pain: Present on Admission?: Yes Supervising Physician Co-Signing Physician Notes Attending attestation I have seen, examined this patient, and agree with the findings and above by our mid-level provider SHREE Rizvi, with the following additions. -patient seen at bedside eating. No complaints of melena or gi bleeding per the patient and none since admission. -OK with BID PPI orally given taking PO -Montior for signs of bleeding -Anemia most likely related to 6 cm hematoma -Call with questions History of Present Illness Reason for Consultation: anemia, melena Requesting Physician: Hernandez Attending Physician: Ferdinand Ng MD History of Present Illness 68 year old female with history of PVD w/ thrombectomy last admission, femoral- femoral bypass, patch angioplasty of distal anastomosis right femoral 11/06/2018, CAD s/p stent, stroke, HTN, T2DM, dyslipidemia, COPD, tobacco use who presented through the ED w/ back pain - GI asked to evaluate for melena, anemia. Pt was seen and evaluated, chart reviewed. She notes she is in severe upper and lower back pain and she "cannot focus and answering questions right now." She is unable to provide much of accurate past history from a GI standpoint. She notes mild upper abdominal pain that has occured with PO. Sometimes associated w/ nausea/vomiting post-prandially but has not had any oral intake "for a few days" so has not had any emesis. She is unsure about the appearance of her stools. She denies any black or bloody stools. No fever, chills, CP, SOB. Is on ASA, Plavix. She is unsure about other NSAIDs. No prednisone. Denies ETOH. CTA: Interval revision of the femoral-femoral bypass graft, which is now patent. Small foci of intragraft thrombus in the midportion and at the insertion at the right common femoral artery. 5.6 cm hematoma superficial to the operative bed in the right inguinal region. No evidence of pseudoaneurysm. Severe atherosclerosis with multivessel stenoses as above. Stool burden suggests constipation. EGD/Colonoscopy September 2018: Z-line, 38 cm from the incisors. [place]-colored mucosa suspicious for short-segmentBarrett's esophagus. Biopsied.Erythematous mucosa in the antrum. Biopsied. Normal duodenal bulb and second portion of the duodenum. Biopsied The examined portion of the ileum was normal. One 6 mm polyp in the descending colon, removed with a cold snare. Resected and retrieved.The distal rectum and anal verge are normal onretroflexion view Allergies Allergy/AdvReac Type Severity Reaction Status Date / Time Penicillins Allergy Mild Vomiting Verified 11/16/18 13:08 mushroom Allergy Verified 11/16/18 13:08 strawberry Allergy Verified 11/16/18 13:08 gluten AdvReac Mild unknown Unverified 11/16/18 13:08 nitroglycerin AdvReac Mild DECREASED Verified 11/16/18 13:08 BP hydrocodone [From Lortab] AdvReac Vomiting Verified 11/16/18 13:08 Home Medications Home Medications Medication Instructions Recorded Confirmed Type aspirin 81 mg PO QAM 11/06/18 11/16/18 History atorvastatin 40 mg PO QPM 11/06/18 11/16/18 History buspirone 15 mg PO BID 11/06/18 11/16/18 History carvedilol 3.125 mg PO BID 11/06/18 11/16/18 History clopidogrel 75 mg PO QAM 11/06/18 11/16/18 History fluticasone propionate 1 spray INTRANASAL DAILY PRN 11/06/18 11/16/18 History furosemide 40 mg PO QAM 11/06/18 11/16/18 History gabapentin 100 mg PO TID 11/06/18 11/16/18 History glipizide 10 mg PO BID 11/06/18 11/16/18 History lisinopril 2.5 mg PO QAM 11/06/18 11/16/18 History loratadine 10 mg PO QAM 11/06/18 11/16/18 History omeprazole 40 mg PO BID 11/06/18 11/16/18 History pioglitazone 30 mg PO QAM 11/06/18 11/16/18 History docusate sodium 100 mg PO BID #60 cap 11/10/18 11/16/18 Rx oxycodone-acetaminophen [Percocet] 1 tab PO Q6H PRN #60 tab 11/10/18 11/16/18 Rx polyethylene glycol 3350 [Miralax] 17 g PO DAILY PRN #30 ea 11/10/18 11/16/18 Rx rivaroxaban [Xarelto] 2.5 mg PO BID #60 tab 11/10/18 11/16/18 Rx acetaminophen 650 mg PO Q6H PRN 11/16/18 11/16/18 History albuterol sulfate [Ventolin HFA] 2 puff INHALATION Q4 PRN 11/16/18 11/16/18 History magnesium hydroxide 30 ml PO UD PRN 11/16/18 11/16/18 History nicotine [Nicoderm CQ] 1 patch TRANSDERMAL QAM 11/16/18 11/16/18 History ondansetron HCl 4 mg PO Q6 PRN 11/16/18 11/16/18 History Patient History Medical History Anxiety (Chronic) [place] esophagus (Chronic) Diabetes mellitus, type II (Chronic) CAD (coronary artery disease) (Chronic) COPD (chronic obstructive pulmonary disease) (Chronic) Myocardial infarction (Resolved) x2 with stent CVA (cerebral vascular accident) (Chronic) PVD (peripheral vascular disease) (Chronic) Tobacco use disorder, continuous (Chronic) 2ppd Hyperlipidemia (Chronic) HTN (hypertension) (Chronic) Critical limb ischemia with history of revascularization of same extremity (Resolved) RLE H/O: hysterectomy (Chronic) Coronary artery disease, occlusive Surgical History History of carotid endarterectomy (Chronic) Status post carotid endarterectomy (Chronic) right Status post femoral-popliteal bypass surgery (Chronic) 2004 Family History Other Diabetes Stroke Social History Preferred Language: Yemeni Communication Ability: Effective 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 Beliefs That Will Affect Care: None Current Living Situation: Rehab Current Living Situation Comment: rehab after vascular surgery Other Information That Helps Us Care for You: No Feels Safe at Home: Yes Smoking Status: Former smoker Tobacco Type: cigarettes ; Cigarettes Per Day: 1- 2ppd; Currently using nicotine patch since hospitalization ; Do You Dip or Chew Tobacco: No ; Second Hand Exposure: Yes ; Hx Alcohol Use: No Hx Substance Use: No Review of Systems Constitutional: no fever, no chills and no fatigue Respiratory: no cough, no dyspnea and no wheezing Cardiovascular: no chest pain, no radiating jaw, neck or arm pain and no dyspnea on exertion Gastrointestinal: + abdominal pain and + nausea; no coffee ground emesis, no hematemesis, no blood in stools and no melena Musculoskeletal: + back pain Physical Exam Constitutional: WD/WN, vitals as above Neck: trachea midline Respiratory: normal respiratory effort, lungs clear to auscultation Cardiovascular: Rate/Rhythm: regular rate and regular rhythm Gastrointestinal (Abdomen): Inspection/Auscultation: normal bowel sounds Percussion/Palpation: + abdomen tender (generalized but worse in upper abd) and abdomen soft; no guarding, abdomen not rigid and no abdominal mass Skin: no rashes, warm and dry Results & Data Vital Signs (Past 12 Hours) Vital Signs Temp Pulse Resp BP Pulse Ox 11/17/18 07:35 37.0 C 75 18 94/59 L 92 11/17/18 04:49 36.8 C 83 17 111/73 95 11/17/18 00:35 36.6 C 85 18 103/62 98 Laboratory Results 11/17/18 11/17/18 11/17/18 Range/Units 05:57 05:34 05:34 WBC 9.85 (4.8-10.8) K/uL RBC 3.29 L (4.2-5.4) M/uL Hgb 9.0 L (12.0-16.0) g/dL Hct 27.9 L (37-47) % MCV 84.8 (80-100) fL MCH 27.4 (25-34) pg MCHC 32.3 (32-36) g/dL RDW Std Deviation 49.3 H (36.4-46.3) fL RDW Coeff of Shahrzad 16.0 H (11.5-14.5) % Plt Count 304 (130-400) K/uL MPV 9.8 (7.4-10.4) fL Immature Gran % (Auto) 0.4 % Neut % (Auto) 60.3 % Lymph % (Auto) 25.5 % [place] % (Auto) 8.7 % Eos % (Auto) 4.6 % Baso % (Auto) 0.5 % Immature Gran # (Auto) 0.04 H (0.00-0.02) K/uL Neut # (Auto) 5.94 (1.4-6.5) K/uL Lymph # (Auto) 2.51 (1.2-3.4) K/uL [place] # (Auto) 0.86 H (0.11-0.59) K/uL Eos # (Auto) 0.45 (0-0.5) K/uL Baso # (Auto) 0.05 (0-0.2) K/uL Polychromasia 1+ Sodium 139 (136-145) mmol/L Potassium 5.0 D (3.5-5.1) mmol/L Chloride 106 (98-107) mmol/L Carbon Dioxide 28 (21-32) mmol/L Anion Gap 5.0 (3-11) BUN 18 (7-18) mg/dl Creatinine 1.19 (0.6-1.2) mg/dl Est Cr Clr Drug Dosing 45.8 ml/min Est GFR ( Amer) 53.9 Est GFR (Non-Af Amer) 46.5 BUN/Creatinine Ratio 15.5 (10-20) Glucose 102 H (70-99) mg/dl POC Glucose 105 H (70-99) Calcium 8.3 L (8.5-10.1) mg/dl Troponin I (0-0.045) ng/ml Lipase (73-393) U/L Urine Color Urine Appearance (Clear) Urine pH (4.5-7.5) Ur Specific [place] (1.000-1.030) Urine Protein (Negative) Urine Glucose (UA) (Negative) Urine Ketones (Negative) Urine Blood (Negative) Urine Nitrite (Negative) Urine Bilirubin (Negative) Urine Urobilinogen (Negative) Ur Leukocyte Esterase (Negative) Urine WBC (Auto) (0-5) /hpf Urine RBC (Auto) (0-4) /hpf U Hyaline Cast (Auto) (0-5) /lpf U Epithel Cells (Auto) (0-5) /lpf Urine Bacteria (Auto) (Negative) Nasal Screen MRSA (PCR) (Negative) Hepatitis C Ab Screen (Neg) Blood Type Antibody Screen Crossmatch 11/16/18 11/16/18 11/16/18 Range/Units 21:04 20:52 20:52 WBC (4.8-10.8) K/uL RBC (4.2-5.4) M/uL Hgb 9.5 L (12.0-16.0) g/dL Hct 29.3 L (37-47) % MCV (80-100) fL MCH (25-34) pg MCHC (32-36) g/dL RDW Std Deviation (36.4-46.3) fL RDW Coeff of Shahrzad (11.5-14.5) % Plt Count (130-400) K/uL MPV (7.4-10.4) fL Immature Gran % (Auto) % Neut % (Auto) % Lymph % (Auto) % [place] % (Auto) % Eos % (Auto) % Baso % (Auto) % Immature Gran # (Auto) (0.00-0.02) K/uL Neut # (Auto) (1.4-6.5) K/uL Lymph # (Auto) (1.2-3.4) K/uL [place] # (Auto) (0.11-0.59) K/uL Eos # (Auto) (0-0.5) K/uL Baso # (Auto) (0-0.2) K/uL Polychromasia Sodium (136-145) mmol/L Potassium (3.5-5.1) mmol/L Chloride (98-107) mmol/L Carbon Dioxide (21-32) mmol/L Anion Gap (3-11) BUN (7-18) mg/dl Creatinine (0.6-1.2) mg/dl Est Cr Clr Drug Dosing ml/min Est GFR ( Amer) Est GFR (Non-Af Amer) BUN/Creatinine Ratio (10-20) Glucose (70-99) mg/dl POC Glucose 182 H (70-99) Calcium (8.5-10.1) mg/dl Troponin I < 0.015 (0-0.045) ng/ml Lipase (73-393) U/L Urine Color Urine Appearance (Clear) Urine pH (4.5-7.5) Ur Specific [place] (1.000-1.030) Urine Protein (Negative) Urine Glucose (UA) (Negative) Urine Ketones (Negative) Urine Blood (Negative) Urine Nitrite (Negative) Urine Bilirubin (Negative) Urine Urobilinogen (Negative) Ur Leukocyte Esterase (Negative) Urine WBC (Auto) (0-5) /hpf Urine RBC (Auto) (0-4) /hpf U Hyaline Cast (Auto) (0-5) /lpf U Epithel Cells (Auto) (0-5) /lpf Urine Bacteria (Auto) (Negative) Nasal Screen MRSA (PCR) (Negative) Hepatitis C Ab Screen (Neg) Blood Type Antibody Screen Crossmatch 11/16/18 11/16/18 11/16/18 Range/Units 19:53 18:46 11:52 WBC (4.8-10.8) K/uL RBC (4.2-5.4) M/uL Hgb (12.0-16.0) g/dL Hct (37-47) % MCV (80-100) fL MCH (25-34) pg MCHC (32-36) g/dL RDW Std Deviation (36.4-46.3) fL RDW Coeff of Shahrzad (11.5-14.5) % Plt Count (130-400) K/uL MPV (7.4-10.4) fL Immature Gran % (Auto) % Neut % (Auto) % Lymph % (Auto) % [place] % (Auto) % Eos % (Auto) % Baso % (Auto) % Immature Gran # (Auto) (0.00-0.02) K/uL Neut # (Auto) (1.4-6.5) K/uL Lymph # (Auto) (1.2-3.4) K/uL [place] # (Auto) (0.11-0.59) K/uL Eos # (Auto) (0-0.5) K/uL Baso # (Auto) (0-0.2) K/uL Polychromasia Sodium (136-145) mmol/L Potassium (3.5-5.1) mmol/L Chloride (98-107) mmol/L Carbon Dioxide (21-32) mmol/L Anion Gap (3-11) BUN (7-18) mg/dl Creatinine (0.6-1.2) mg/dl Est Cr Clr Drug Dosing ml/min Est GFR ( Amer) Est GFR (Non-Af Amer) BUN/Creatinine Ratio (10-20) Glucose (70-99) mg/dl POC Glucose 107 H (70-99) Calcium (8.5-10.1) mg/dl Troponin I (0-0.045) ng/ml Lipase (73-393) U/L Urine Color Urine Appearance (Clear) Urine pH (4.5-7.5) Ur Specific [place] (1.000-1.030) Urine Protein (Negative) Urine Glucose (UA) (Negative) Urine Ketones (Negative) Urine Blood (Negative) Urine Nitrite (Negative) Urine Bilirubin (Negative) Urine Urobilinogen (Negative) Ur Leukocyte Esterase (Negative) Urine WBC (Auto) (0-5) /hpf Urine RBC (Auto) (0-4) /hpf U Hyaline Cast (Auto) (0-5) /lpf U Epithel Cells (Auto) (0-5) /lpf Urine Bacteria (Auto) (Negative) Nasal Screen MRSA (PCR) Negative (Negative) Hepatitis C Ab Screen (Neg) Blood Type A Positive Antibody Screen NEGATIVE Crossmatch See Detail 11/16/18 11/16/18 11/16/18 Range/Units 11:00 10:10 10:10 WBC (4.8-10.8) K/uL RBC (4.2-5.4) M/uL Hgb (12.0-16.0) g/dL Hct (37-47) % MCV (80-100) fL MCH (25-34) pg MCHC (32-36) g/dL RDW Std Deviation (36.4-46.3) fL RDW Coeff of Shahrzad (11.5-14.5) % Plt Count (130-400) K/uL MPV (7.4-10.4) fL Immature Gran % (Auto) % Neut % (Auto) % Lymph % (Auto) % [place] % (Auto) % Eos % (Auto) % Baso % (Auto) % Immature Gran # (Auto) (0.00-0.02) K/uL Neut # (Auto) (1.4-6.5) K/uL Lymph # (Auto) (1.2-3.4) K/uL [place] # (Auto) (0.11-0.59) K/uL Eos # (Auto) (0-0.5) K/uL Baso # (Auto) (0-0.2) K/uL Polychromasia Sodium (136-145) mmol/L Potassium (3.5-5.1) mmol/L Chloride (98-107) mmol/L Carbon Dioxide (21-32) mmol/L Anion Gap (3-11) BUN (7-18) mg/dl Creatinine (0.6-1.2) mg/dl Est Cr Clr Drug Dosing ml/min Est GFR ( Amer) Est GFR (Non-Af Amer) BUN/Creatinine Ratio (10-20) Glucose (70-99) mg/dl POC Glucose (70-99) Calcium (8.5-10.1) mg/dl Troponin I (0-0.045) ng/ml Lipase 100 (73-393) U/L Urine Color Yellow Urine Appearance Clear (Clear) Urine pH 7.0 (4.5-7.5) Ur Specific [place] 1.010 (1.000-1.030) Urine Protein Negative (Negative) Urine Glucose (UA) Negative (Negative) Urine Ketones Negative (Negative) Urine Blood Trace H (Negative) Urine Nitrite Negative (Negative) Urine Bilirubin Negative (Negative) Urine Urobilinogen Negative (Negative) Ur Leukocyte Esterase Negative (Negative) Urine WBC (Auto) 0 (0-5) /hpf Urine RBC (Auto) 0-4 (0-4) /hpf U Hyaline Cast (Auto) 0 (0-5) /lpf U Epithel Cells (Auto) 0-5 (0-5) /lpf Urine Bacteria (Auto) Negative (Negative) Nasal Screen MRSA (PCR) (Negative) Hepatitis C Ab Screen Neg (Neg) Blood Type Antibody Screen Crossmatch
[2018-11-17] MEDS: CLOPIDOGREL BISULFATE 75 MG TAB PO SCH (13:28)
[2018-11-17] MEDS: ASPIRIN 81 MG ECTAB PO SCH (13:28)
--- NOTE | 2018-11-17 17:00 | Hospitalist Progress Note ---
Date of Service November 17, 2018 Assessment & Plan (1) Anemia: Patient with recent history of thrombectomy, femoral-femoral bypass, patch angioplasty of distal anastomosis right femoral 11/06/2018 secondary to prior graft occlusion and initially came to the emergency room for 11/16/18 for back pain and during the evaluation, there was concern that patient may have had recent melena in her stool although patient reports not having bowel movement for last 3 days. On lab work up, patient's blood count in the emergency room was found to be 7 and in comparison to her hemoglobin on 11/09/18 of 8.3, this was concerning for an acute drop and patient was given 2 units of PRBC on 11/16/18. Of note, the Hgb checks between 11/16/18 to 11/17/18 may have been from Finger-Stick Complete Blood Counts because patient's right arm veins have been difficult to draw blood from and the left arm is considered a restricted limb because of patients history of left upper arm blood clot. It is unclear as to the degree of accuracy of the Finger-Stick blood draws. In addition, there may be some blood loss in right groin hematoma last Hgb is 9 maintain hemoglobin above 7 (2) Melena: -reported melena as outpatient but patient also reported constipation -will send fecal occult blood stool with next bowel movement -Gastroenterology does not suspect acute GI bleed at this time and reports No current indication for endoscopic evaluation -continue IV PPI BID as initially started, patient preferred not to be NPO and allowed to have clear liquid diet (3) PVD (peripheral vascular disease): Patient with recent history of thrombectomy, femoral-femoral bypass, patch angioplasty of distal anastomosis right femoral 11/06/2018 secondary to prior graft occlusion -will send left upper extremity venous ultrasound to verify whether patient has chronic DVT and will send right lower extremity ultrasound to see if any right leg DVT (4) Hematoma of right thigh: Patient reports right upper leg ecchymosis for several days and right groin discomfort admission Right extremity CTA: 1. A 12 x 6 x 5 cm subcutaneous hematoma within the right groin extending into the proximal right thigh. No evidence for pseudoaneurysm. 2. The femorofemoral graft is now patent. 3. Multifocal moderate to severe narrowing throughout the [place] right superficial femoral artery and visualized bile duct to arteries described above. 4. 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 Both lumens remain opacified. as per vascular surgery evaluation on 11/17/18 they are not recommending vascular intervention at this time and they comment that the post op right groin hematoma with mild local inflammation and drainage and not larger than at discharge on last week and actually appears less ecchymotic and they commented that there is no full dehiscence of wound and no active bleeding noted on imaging and recommended to continue current antibiotic and pain control and that to continue to continue plavix and ASA (5) Back pain: -degenerative change seen on 11/16/18 Lumbar and Thoracic X rays and suggest that back pain is musculoskeletal in nature -CTA chest on 11/16/18 did not find acute source of back pain 1. No evidence of acute aortic injury. No acute intrathoracic pathology. 2. Multiple solid nodules bilaterally greater on the right with an upper lobe predominance. These are nonspecific and could potentially relate to smoking- related lung injury or granulomatous disease in the appropriate clinical setting. 3. Dominant solid spiculated 10 mm right upper lobe nodule. While this could relate to the aforementioned multiple solid pulmonary nodules, a neoplastic etiology is not excluded given the size and appearance. -pain medications as needed Lung nodules -will need outpatient follow up (6) Diabetes mellitus, type II: A1c 6.7 on 11/08/2018 -Hold glipizide, pioglitazone -Novolog sliding scale per protocol (7) HTN (hypertension): blood pressures appear to be low normotensive -continue to hold Lasix and hold lisinopril (8) CAD (coronary artery disease): S/P stent -Continue aspirin, Coreg, statin (9) CVA (cerebral vascular accident): -Continue aspirin, statin, Plavix (10) COPD (chronic obstructive pulmonary disease): -Continue albuterol prn (11) [place] esophagus: -on IV protonics (12) Tobacco use disorder, continuous: Smoking cessation encouraged. Patient has been smoking since has been in rehab and has been using nicotine patch -Nicotine patch (13) Anxiety: -Continue buspirone DVT prophylaxis: on aspirin and clopidogrel for now. hold home dose Xarelto because unclear of bleeding risks versus thrombosis risk at this time. will have SCDs placed on left unaffected leg upgrade to full admission from observation status because of multiple co- morbidities, blood count monitoring, pain control Full Code Daughter [phone] Subjective Patient not in acute distress. no lightheadedness. no dizziness. bed adjustments need to be made slowly to prevent back pain exacerbation. no abdomen pain. no vomiting. tolerated liquid diet. no bowel movement yet Physical Exam Constitutional: cooperative Eyes: PERRL, conjunctivae normal, anicteric sclerae EOM intact bilaterally ENMT: external ear and nose normal, oropharynx normal Neck: trachea midline, no thyromegaly Respiratory: normal respiratory effort, lungs clear to auscultation Cardiovascular: Rate/Rhythm: regular rate and regular rhythm Gastrointestinal (Abdomen): normal bowel sounds, soft, nontender, no hepatosplenomegaly Skin: R groin hematoma noted, very tender, with mild local erythema Neurologic: PERRL, EOMI, accommodation nl, no face palsy, no dysarthria Psychiatric: A+Ox3, euthymic affect Results & Data Vital Signs (Past 12 Hours) Vital Signs Temp Pulse Pulse Pulse Resp BP Pulse Ox 11/17/18 15:14 36.6 C 90 17 105/72 94 11/17/18 11:42 36.6 C 85 19 119/72 95 11/17/18 08:00 71 11/17/18 07:35 37.0 C 75 18 94/59 L 92 (1) Hematoma of right thigh Encounter type: initial encounter Qualified Code(s): S70.11XA - Contusion of right thigh, initial encounter
[2018-11-17 17:38] LABS: Mean Corpuscular Hgb Conc 32.5 g/dL (32-36); Mean Platelet Volume 9.8 fL (7.4-10.4); Platelet Count 324 K/uL (130-400)
[2018-11-17 19:37] LABS: Hematocrit (blood only) 29.5 % (37-47); Hemoglobin 9.6 g/dL (12.0-16.0); Mean Corpuscular Hemoglobin 27.6 pg (25-34); Mean Corpuscular Volume 84.8 fL (80-100); RDW Coefficient of Variation 16.3 % (11.5-14.5); RDW Standard Deviation 49.7 fL (36.4-46.3); Red Blood Count 3.48 M/uL (4.2-5.4); White Blood Count 10.14 K/uL (4.8-10.8)
[2018-11-17 19:38] LABS: Basophils # (auto) 0.05 K/uL (0-0.2); Basophils % (auto) 0.5 %; Eosinophils # (auto) 0.58 K/uL (0-0.5); Eosinophils % (auto) 5.7 %; Immature Granulocytes # (auto) 0.05 K/uL (0.00-0.02); Immature Granulocytes % (auto) 0.5 %; Lymphocytes # (auto) 2.16 K/uL (1.2-3.4); Lymphocytes % (auto) 21.3 %; Monocytes # (auto) 0.99 K/uL (0.11-0.59); Monocytes % (auto) 9.8 %; Neutrophils # (auto) 6.31 K/uL (1.4-6.5); Neutrophils % (auto) 62.2 %
--- NOTE | 2018-11-17 21:48 | Ultrasound Report ---
ULTRASOUND LEFT UPPER EXTREMITY VENOUS CLINICAL HISTORY: Left arm pain and lack of mobility. COMPARISON STUDY: No priors. TECHNIQUE: Real-time, grayscale, and color Doppler sonography of the deep veins of the left upper ext remity is performed. Compression and augmentation were utilized. FINDINGS: There is no sonographic evidence of deep venous thrombosis identified in the left upper ext remity. The left internal jugular, axillary, and brachial veins are patent and normally compressible. Normal venous waveforms and augmentation are seen within the left subclavian vein. The cephalic and basilic veins are clear. The visualized radial and ulnar veins are patent. IMPRESSION: There is no sonographic evidence of deep venous thrombosis identified in the left upper e xtremity. Electronically signed by: Mak Skelton M.D. 11/17/2018 9:47 PM
--- NOTE | 2018-11-17 21:50 | Ultrasound Report ---
ULTRASOUND RIGHT LOWER EXTREMITY VENOUS CLINICAL HISTORY: Right groin hematoma. Right leg pain. Recent surgery. COMPARISON STUDY: CT angiogram of the right lower extremity dated 11/16/2018. TECHNIQUE: Real-time, grayscale, and color Doppler sonography of the deep veins of the right lower ex tremity was performed from the inguinal crease to the calf. Compression and augmentation were utilize d. FINDINGS: There is no sonographic evidence of deep venous thrombosis identified in the right lower ex tremity. The common femoral, superficial femoral, and popliteal veins are patent and normally jeff sible. The greater saphenous vein and the profunda femoris vein at the junction with the common femor al vein are clear. The visualized calf veins are patent. There is a complex nonvascular collection in the right groin which measures 6.6 x 3.8 x 6.6 cm. IMPRESSION: 1. There is no sonographic evidence of deep venous thrombosis identified in the right lower extremity . 2. A 6.6 cm nonvascular collection in the left groin is typical appearance for hematoma and was also seen on the recent CT scan. Clinical correlation will be required and clinical follow-up to [facility] is recommended. Electronically signed by: Mak Skelton M.D. 11/17/2018 9:48 PM
[2018-11-17] MEDS: ATORVASTATIN 40 MG TAB PO SCH (22:52)
[2018-11-18] MEDS: MoRPHine SULFATE 4 MG/ML 1 ML CARP\\VIAL IV PRN ×3 (03:52→18:15)
[2018-11-18] MEDS: PANTOprazole 40 MG in DEXTROSE 5% 100 ML IV SCH ×2 (04:19→08:45)
[2018-11-18] MEDS: INSULIN ASPART 100 UNITS/ML 3 ML PEN SC SCH ×4 (07:44→20:40)
[2018-11-18 08:23] LABS: Hemoglobin 9.3 g/dL (12.0-16.0); Mean Corpuscular Hemoglobin 27.7 pg (25-34); Mean Corpuscular Hgb Conc 32.1 g/dL (32-36); Mean Corpuscular Volume 86.3 fL (80-100); Mean Platelet Volume 9.6 fL (7.4-10.4); Platelet Count 336 K/uL (130-400); RDW Standard Deviation 50.1 fL (36.4-46.3); Red Blood Count 3.36 M/uL (4.2-5.4); White Blood Count 8.73 K/uL (4.8-10.8)
[2018-11-18 08:32] LABS: BUN Creatinine Ratio 13.2 (10-20); Calcium 8.7 mg/dl (8.5-10.1); Creatinine Clr Calc Pharmacy 62.7 ml/min; Est GFR (African American) 78.8; Potassium 4.4 mmol/L (3.5-5.1)
[2018-11-18] MEDS: CIPROFLOXACIN 400 MG/200 ML BAG IV SCH ×2 (08:40→20:30)
[2018-11-18] MEDS: GABAPENTIN 100 MG CAP PO SCH ×3 (08:42→20:24)
[2018-11-18] MEDS: NICOTINE 14 MG/24 HR PATCH TD SCH (08:42)
[2018-11-18] MEDS: CARVEDILOL 3.125 MG TAB PO SCH ×2 (08:42→20:22)
[2018-11-18] MEDS: DOCUSATE SODIUM 100 MG CAP PO SCH ×2 (08:43→20:43)
[2018-11-18] MEDS: LORATADINE 10 MG TAB PO SCH (08:43)
[2018-11-18] MEDS: BusPIRone 15 MG TAB PO SCH ×2 (08:44→20:24)
[2018-11-18] MEDS: CLOPIDOGREL BISULFATE 75 MG TAB PO SCH (08:45)
[2018-11-18] MEDS: ASPIRIN 81 MG ECTAB PO SCH (08:45)
[2018-11-18] MEDS: SODIUM CHLORIDE 0.9% 1000ML 1,000 ML IV SCH (08:49)
[2018-11-18] MEDS: PANTOprazole 40 MG TAB PO SCH (13:58)
--- NOTE | 2018-11-18 16:29 | Hospitalist Progress Note ---
Date of Service November 18, 2018 Assessment & Plan (1) Anemia: Patient with recent history of thrombectomy, femoral-femoral bypass, patch angioplasty of distal anastomosis right femoral 11/06/2018 secondary to prior graft occlusion and initially came to the emergency room for 11/16/18 for back pain and during the evaluation, there was concern that patient may have had recent melena in her stool although patient reports not having bowel movement for last 3 days. On lab work up, patient's blood count in the emergency room was found to be 7 and in comparison to her hemoglobin on 11/09/18 of 8.3, this was concerning for an acute drop and patient was given 2 units of PRBC on 11/16/18. Of note, the Hgb checks between 11/16/18 to 11/17/18 may have been from Finger-Stick Complete Blood Counts because patient's right arm veins have been difficult to draw blood from and the left arm is considered a restricted limb because of patients history of left upper arm blood clot. It is unclear as to the degree of accuracy of the Finger-Stick blood draws. In addition, there may be some blood loss in right groin hematoma -no evidence of DVT on left upper extremity venous ultrasound -allow for blood draw of left arm -currently hemoglobin remains stable above 9 (2) Melena: -reported melena as outpatient but patient also reported constipation -will send fecal occult blood stool with next bowel movement -Gastroenterology does not suspect acute GI bleed at this time and reports No current indication for endoscopic evaluation -patient was on IV PPI initially but can be on oral pantoprazole -no bowel movements yet (3) PVD (peripheral vascular disease): Patient with recent history of thrombectomy, femoral-femoral bypass, patch angioplasty of distal anastomosis right femoral 11/06/2018 secondary to prior graft occlusion -no evidence of DVT on left upper extremity venous ultrasound; no evidence of DVT on right lower extremity ultrasound (4) Hematoma of right thigh: Patient reports right upper leg ecchymosis for several days and right groin discomfort admission Right extremity CTA: 1. A 12 x 6 x 5 cm subcutaneous hematoma within the right groin extending into the proximal right thigh. No evidence for pseudoaneurysm. 2. The femorofemoral graft is now patent. 3. Multifocal moderate to severe narrowing throughout the [place] right superficial femoral artery and visualized bile duct to arteries described above. 4. 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 Both lumens remain opacified. as per vascular surgery evaluation on 11/17/18 they are not recommending vascular intervention at this time and they comment that the post op right groin hematoma with mild local inflammation and drainage and not larger than at discharge on last week and actually appears less ecchymotic and they commented that there is no full dehiscence of wound and no active bleeding noted on imaging and recommended to continue current antibiotic and pain control and that to continue to continue plavix and ASA currently on IV ciprofloxacin, follow blood culture results awaiting PT/OT evaluations (5) Back pain: -degenerative change seen on 11/16/18 Lumbar and Thoracic X rays and suggest that back pain is musculoskeletal in nature -CTA chest on 11/16/18 did not find acute source of back pain 1. No evidence of acute aortic injury. No acute intrathoracic pathology. 2. Multiple solid nodules bilaterally greater on the right with an upper lobe predominance. These are nonspecific and could potentially relate to smoking-related lung injury or granulomatous disease in the appropriate clinical setting. 3. Dominant solid spiculated 10 mm right upper lobe nodule. While this could relate to the aforementioned multiple solid pulmonary nodules, a neoplastic etiology is not excluded given the size and appearance. -pain medications as needed Lung nodules -will need outpatient follow up (6) Diabetes mellitus, type II: A1c 6.7 on 11/08/2018 -Hold glipizide, pioglitazone -Novolog sliding scale per protocol (7) HTN (hypertension): blood pressures appear stable and not elevated -continue to hold Lasix and hold lisinopril for now (8) CAD (coronary artery disease): S/P stent -Continue aspirin, Coreg, statin (9) CVA (cerebral vascular accident): -Continue aspirin, statin, Plavix (10) COPD (chronic obstructive pulmonary disease): -Continue albuterol prn (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 Patient has been smoking since has been in rehab and has been using nicotine patch -Nicotine patch (13) Anxiety: -Continue buspirone DVT prophylaxis: on aspirin and clopidogrel for now. SCDs placed on left unaffected leg, continue to hold Xarelto for now Full Code Daughter [phone] Subjective Patient seen and examined today. and groin hematoma and left upper thigh sensitivity appears unchanged. no bowel movements yet at this time. blood counts remain stable. she has nit been seen by PT/OT yet. her diet is advanced Physical Exam Constitutional: cooperative Eyes: PERRL, conjunctivae normal, anicteric sclerae EOM intact bilaterally ENMT: external ear and nose normal, oropharynx normal Neck: trachea midline, no thyromegaly Respiratory: normal respiratory effort, lungs clear to auscultation Cardiovascular: Rate/Rhythm: regular rate and regular rhythm Gastrointestinal (Abdomen): normal bowel sounds, soft, nontender, no hepatosplenomegaly Skin: R groin hematoma noted, very tender, with mild local erythema Neurologic: PERRL, EOMI, accommodation nl, no face palsy, no dysarthria Psychiatric: A+Ox3, euthymic affect Results & Data Vital Signs (Past 12 Hours) Vital Signs Temp Pulse Resp BP Pulse Ox 11/18/18 15:18 36.7 C 89 20 119/74 97 11/18/18 11:42 36.8 C 90 18 93/58 L 96 11/18/18 08:20 36.7 C 90 19 131/81 97 (1) Hematoma of right thigh Encounter type: initial encounter Qualified Code(s): S70.11XA - Contusion of right thigh, initial encounter
[2018-11-18] MEDS: ONDANSETRON INJ 2 MG/ML 2 ML VIAL IV PRN (18:42)
[2018-11-18] MEDS: ATORVASTATIN 40 MG TAB PO SCH (20:24)
[2018-11-19] MEDS: MoRPHine SULFATE 4 MG/ML 1 ML CARP\\VIAL IV PRN ×4 (01:39→22:26)
[2018-11-19 07:47] LABS: Basophils # (auto) 0.03 K/uL (0-0.2); Basophils % (auto) 0.3 %; Eosinophils # (auto) 0.65 K/uL (0-0.5); Eosinophils % (auto) 6.8 %; Hematocrit (blood only) 29.2 % (37-47); Hemoglobin 9.2 g/dL (12.0-16.0); Immature Granulocytes # (auto) 0.02 K/uL (0.00-0.02); Immature Granulocytes % (auto) 0.2 %; Lymphocytes # (auto) 1.56 K/uL (1.2-3.4); Lymphocytes % (auto) 16.4 %; Mean Corpuscular Hemoglobin 27.7 pg (25-34); Mean Corpuscular Hgb Conc 31.5 g/dL (32-36); Mean Platelet Volume 9.7 fL (7.4-10.4); Monocytes # (auto) 0.75 K/uL (0.11-0.59); Monocytes % (auto) 7.9 %; Neutrophils # (auto) 6.51 K/uL (1.4-6.5); Neutrophils % (auto) 68.4 %; Platelet Count 363 K/uL (130-400); RDW Coefficient of Variation 16.2 % (11.5-14.5); RDW Standard Deviation 51.9 fL (36.4-46.3); Red Blood Count 3.32 M/uL (4.2-5.4); White Blood Count 9.52 K/uL (4.8-10.8)
[2018-11-19] MEDS: CIPROFLOXACIN 400 MG/200 ML BAG IV SCH ×2 (08:01→20:05)
[2018-11-19] MEDS: BusPIRone 15 MG TAB PO SCH ×2 (08:02→20:05)
[2018-11-19] MEDS: GABAPENTIN 100 MG CAP PO SCH ×3 (08:02→20:06)
[2018-11-19] MEDS: INSULIN ASPART 100 UNITS/ML 3 ML PEN SC SCH ×4 (08:02→20:38)
[2018-11-19] MEDS: ASPIRIN 81 MG ECTAB PO SCH (08:03)
[2018-11-19] MEDS: LORATADINE 10 MG TAB PO SCH (08:03)
[2018-11-19] MEDS: PANTOprazole 40 MG TAB PO SCH (08:03)
[2018-11-19] MEDS: CARVEDILOL 3.125 MG TAB PO SCH ×2 (08:03→20:06)
[2018-11-19] MEDS: NICOTINE 14 MG/24 HR PATCH TD SCH (08:03)
[2018-11-19] MEDS: CLOPIDOGREL BISULFATE 75 MG TAB PO SCH (08:04)
[2018-11-19] MEDS: DOCUSATE SODIUM 100 MG CAP PO SCH ×2 (08:07→20:18)
--- NOTE | 2018-11-19 09:25 | Surgery Progress Note ---
Date of Service November 19, 2018 Assessment & Plan (1) Groin hematoma: Pt with post op R groin hematoma, with mild local inflammation and drainage. Will continue the dressing changes and his Cipro. Subjective Patient feels better today. She claims there is less pain in the right groin but it is still draining serosanguineous fluid. Physical Exam Physical Exam: On exam there is no erythema in the right groin. There is moderate serosanguineous drainage on the dressing. The graft is patent on exam. Results & Data Vital Signs (Past 12 Hours) Vital Signs Temp Pulse Pulse Resp BP Pulse Ox 11/19/18 07:38 36.9 C 92 H 19 99/65 L 97 11/19/18 03:44 83 11/19/18 03:00 36.6 C 90 20 107/63 92 11/18/18 23:57 36.3 C L 88 16 103/73 91
--- NOTE | 2018-11-19 14:02 | Hospitalist Progress Note ---
Date of Service November 19, 2018 Assessment & Plan (1) Anemia: Patient with recent history of thrombectomy, femoral-femoral bypass, patch angioplasty of distal anastomosis right femoral 11/06/2018 secondary to prior graft occlusion and initially came to the emergency room for 11/16/18 for back pain and during the evaluation, there was concern that patient may have had recent melena in her stool although patient reports not having bowel movement for last 3 days. On lab work up, patient's blood count in the emergency room was found to be 7 and in comparison to her hemoglobin on 11/09/18 of 8.3, this was concerning for an acute drop and patient was given 2 units of PRBC on 11/16/18. Of note, the Hgb checks between 11/16/18 to 11/17/18 may have been from Finger-Stick Complete Blood Counts because patient's right arm veins have been difficult to draw blood from and the left arm is considered a restricted limb because of patients history of left upper arm blood clot. It is unclear as to the degree of accuracy of the Finger-Stick blood draws. In addition, there may be some blood loss accounted by right groin hematoma -no evidence of DVT on left upper extremity venous ultrasound -allow for blood draw of left arm -currently hemoglobin remains stable above 9 (2) Melena: -reported melena as outpatient but patient also reported constipation; Gastroenterology 11/17/18 does not suspect acute GI bleed at this time and reported No current indication for endoscopic evaluation -fecal occult stool sent on 11/18/18 is positive however no gross bleeding noted to date and hemoglobin remains above 9 -continued oral pantoprazole for now (3) PVD (peripheral vascular disease): Patient with recent history of thrombectomy, femoral-femoral bypass, patch angioplasty of distal anastomosis right femoral 11/06/2018 secondary to prior graft occlusion -no evidence of DVT on left upper extremity venous ultrasound; no evidence of DVT on right lower extremity ultrasound (4) Hematoma of right thigh: Patient reports right upper leg ecchymosis for several days and right groin discomfort admission Right extremity CTA: 1. A 12 x 6 x 5 cm subcutaneous hematoma within the right groin extending into the proximal right thigh. No evidence for pseudoaneurysm. 2. The femorofemoral graft is now patent. 3. Multifocal moderate to severe narrowing throughout the [place] right superfic ial femoral artery and visualized bile duct to arteries described above. 4. 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 Both lumens remain opacified. as per vascular surgery evaluation on 11/17/18 they are not recommending vascular intervention at this time and they comment that the post op right groin hematoma with mild local inflammation and drainage and not larger than at discharge on last week and actually appears less ecchymotic and they commented that there is no full dehiscence of wound and no active bleeding noted on imaging and recommended to continue current antibiotic and pain control and that to continue to continue plavix and ASA currently on IV ciprofloxacin, blood cultures no growth to date as per 11/19/18 follow up vascular evaluation Dr. Jara advised to continue the dressing changes and Ciprofloxacin. Hospitalist also asked about Xarelto use which patient had taken after her initial femoral bypass as DVT prophylaxis and Dr. Jara does not advise Xarelto at this time. Hospitalist also asked about whether any concerns for right extremity CTA reporting a popliteal artery dissection of right leg and Dr. Jara reported that he believes the CTA scan is inaccurate awaiting PT/OT evaluations (5) Back pain: -degenerative change seen on 11/16/18 Lumbar and Thoracic X rays -patient also expressed concern of right lower quadrant pain radiating to back after meals especially when eating meat and complains this has been going on for 2 years. previous 11/16/18 CT scan documents visualized normal pancreas and No intrahepatic or extrahepatic biliary ductal dilatation and Normal gallbladder. -it is possible that there is a sphincter of Oddi dysfunction or other biliary spasm that may account for this pain. may need outpatient gastroenterology evaluation once acute issues of anemia and groin hematoma resolves -CTA chest on 11/16/18 did not find acute source of back pain 1. No evidence of acute aortic injury. No acute intrathoracic pathology. 2. Multiple solid nodules bilaterally greater on the right with an upper lobe predominance. These are nonspecific and could potentially relate to smoking- related lung injury or granulomatous disease in the appropriate clinical setting. 3. Dominant solid spiculated 10 mm right upper lobe nodule. While this could relate to the aforementioned multiple solid pulmonary nodules, a neoplastic etiology is not excluded given the size and appearance. -pain medications as needed Lung nodules -will need outpatient follow up (6) Diabetes mellitus, type II: A1c 6.7 on 11/08/2018 -Hold glipizide, pioglitazone -Novolog sliding scale per protocol (7) HTN (hypertension): blood pressures are not elevated -continue to hold Lasix and hold lisinopril for now (8) CAD (coronary artery disease): S/P stent -Continue aspirin, Coreg, statin -holding Lasix to avoid hypotension (9) CVA (cerebral vascular accident): -Continue aspirin, statin, Plavix (10) COPD (chronic obstructive pulmonary disease): -Continue albuterol prn (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 Patient has been smoking since has been in rehab and has been using nicotine patch -Nicotine patch (13) Anxiety: -Continue buspirone DVT prophylaxis: on aspirin and clopidogrel for now. SCDs placed on left unaffected leg, continue to hold Xarelto for now Full Code Daughter [phone] Subjective Patient denies acute pain today. Has not ambulated yet. no gross bleeding. right groin hematoma still some seeping of serosanguinous fluid that is absorbed by t he gauze. breathing on room air. no shortness of breath. no vomiting. no dizziness Physical Exam Constitutional: cooperative Eyes: PERRL, conjunctivae normal, anicteric sclerae EOM intact bilaterally ENMT: external ear and nose normal, oropharynx normal Neck: trachea midline, no thyromegaly Respiratory: normal respiratory effort, lungs clear to auscultation Cardiovascular: Rate/Rhythm: regular rate and regular rhythm Gastrointestinal (Abdomen): normal bowel sounds, soft, nontender, no hepatosplenomegaly Musculoskeletal: Right groin hematoma with inflammation and area of skin expressing mild drainage that is absorbed by the gauze, some ecchymosis of the right calf Neurologic: PERRL, EOMI, accommodation nl, no face palsy, no dysarthria Psychiatric: A+Ox3, euthymic affect Results & Data Vital Signs (Past 12 Hours) Vital Signs Temp Pulse Pulse Resp BP Pulse Ox 11/19/18 10:55 36.6 C 79 18 105/68 98 11/19/18 07:38 36.9 C 92 H 19 99/65 L 97 11/19/18 03:44 83 11/19/18 03:00 36.6 C 90 20 107/63 92 (1) Hematoma of right thigh Encounter type: initial encounter Qualified Code(s): S70.11XA - Contusion of right thigh, initial encounter
[2018-11-19] MEDS ORDERED: FUROSEMIDE 20 MG in SYRINGE 0 ML IV ONE (14:53)
[2018-11-19] MEDS ORDERED: SODIUM CHLORIDE 0.9% 500 ML IV SCH (15:00)
[2018-11-19] MEDS: ONDANSETRON INJ 2 MG/ML 2 ML VIAL IV PRN (17:48)
[2018-11-19] MEDS: ATORVASTATIN 40 MG TAB PO SCH (20:06)
[2018-11-19 22:44] LABS: BUN Creatinine Ratio 17.6 (10-20); Creatinine Clr Calc Pharmacy 48.9 ml/min; Est GFR (Non-African American) 50.1; Magnesium 2.1 mg/dl (1.8-2.4); Potassium 4.7 mmol/L (3.5-5.1)
[2018-11-20] MEDS: MoRPHine SULFATE 4 MG/ML 1 ML CARP\\VIAL IV PRN ×4 (02:44→20:23)
--- NOTE | 2018-11-20 06:30 | Ultrasound Report ---
Study: Arterial Doppler right leg HISTORY: Postoperative pain. Edema. Claudication. FINDINGS: Limited study as the patient could not tolerate the exam. Findings of a 7 x 4 cm complex so ft tissue process proximal right inguinal region. This is most likely a post procedural hematoma. Flow is confirmed within the major vasculature. Ankle-brachial index on the right is 0.68 involving the posterior tibial artery. It is 0.61 involving dorsalis pedis. IMPRESSION: 1. Postprocedural right inguinal hematoma. 2. Limited study due to patient discomfort. 3. Antegrade flow is present in the bulk of the vessels throughout 4. Limited evaluation of the patient's bypass graft. Electronically signed by: Vinod Garcia M.D. 11/20/2018 6:29 AM
[2018-11-20] MEDS: INSULIN ASPART 100 UNITS/ML 3 ML PEN SC SCH ×4 (07:56→20:47)
[2018-11-20 07:58] LABS: Basophils # (auto) 0.02 K/uL (0-0.2); Basophils % (auto) 0.2 %; Eosinophils # (auto) 0.59 K/uL (0-0.5); Eosinophils % (auto) 5.9 %; Hematocrit (blood only) 28.4 % (37-47); Immature Granulocytes # (auto) 0.03 K/uL (0.00-0.02); Immature Granulocytes % (auto) 0.3 %; Lymphocytes # (auto) 1.71 K/uL (1.2-3.4); Lymphocytes % (auto) 17.2 %; Mean Corpuscular Hemoglobin 27.5 pg (25-34); Mean Corpuscular Hgb Conc 31.7 g/dL (32-36); Mean Corpuscular Volume 86.9 fL (80-100); Mean Platelet Volume 9.4 fL (7.4-10.4); Monocytes # (auto) 0.84 K/uL (0.11-0.59); Monocytes % (auto) 8.5 %; Neutrophils # (auto) 6.75 K/uL (1.4-6.5); Neutrophils % (auto) 67.9 %; Platelet Count 380 K/uL (130-400); RDW Coefficient of Variation 16.2 % (11.5-14.5); RDW Standard Deviation 51.4 fL (36.4-46.3); Red Blood Count 3.27 M/uL (4.2-5.4); White Blood Count 9.94 K/uL (4.8-10.8)
[2018-11-20] MEDS: CIPROFLOXACIN 400 MG/200 ML BAG IV SCH ×2 (09:01→20:09)
[2018-11-20] MEDS: PANTOprazole 40 MG TAB PO SCH (09:02)
[2018-11-20] MEDS: BusPIRone 15 MG TAB PO SCH ×2 (09:02→20:09)
[2018-11-20] MEDS: CLOPIDOGREL BISULFATE 75 MG TAB PO SCH (09:02)
[2018-11-20] MEDS: GABAPENTIN 100 MG CAP PO SCH ×3 (09:02→20:09)
[2018-11-20] MEDS: LORATADINE 10 MG TAB PO SCH (09:03)
[2018-11-20] MEDS: CARVEDILOL 3.125 MG TAB PO SCH ×2 (09:03→20:09)
[2018-11-20] MEDS: ASPIRIN 81 MG ECTAB PO SCH (09:03)
[2018-11-20] MEDS: NICOTINE 14 MG/24 HR PATCH TD SCH (09:04)
[2018-11-20] MEDS: DOCUSATE SODIUM 100 MG CAP PO SCH ×2 (09:06→20:09)
[2018-11-20 09:20] LABS: Albumin Level 2.8 gm/dl (3.4-5.0); Creatinine Clr Calc Pharmacy 52.1 ml/min; Est GFR (African American) 62.8; Est GFR (Non-African American) 54.1; Potassium 4.5 mmol/L (3.5-5.1)
[2018-11-20 09:23] LABS: Albumin Globulin Ratio 0.7 (0.9-2); Bilirubin,Total 0.6 mg/dl (0.2-1); Globulin 3.8 gm/dl (2.5-4.0); Total Protein 6.6 gm/dl (6.4-8.2)
[2018-11-20] MEDS ORDERED: FUROSEMIDE 20 MG in SYRINGE 0 ML IV ONE (11:00)
[2018-11-20] MEDS: ONDANSETRON INJ 2 MG/ML 2 ML VIAL IV PRN ×2 (12:37→20:10)
--- NOTE | 2018-11-20 15:24 | Hospitalist Progress Note ---
Date of Service November 20, 2018 Assessment & Plan (1) Anemia: Acute blood loss anemia in setting of postoperative hematoma treated with 2 units of PRBC's -Patient with recent history of thrombectomy, femoral-femoral bypass, patch angioplasty of distal anastomosis right femoral 11/06/2018 secondary to prior graft occlusion and initially came to the emergency room for 11/16/18 for back pain and during the evaluation, there was concern that patient may have had recent melena in her stool although patient reports not having bowel movement for last 3 days. On lab work up, patient's blood count in the emergency room was found to be 7 and in comparison to her hemoglobin on 11/09/18 of 8.3, this was concerning for an acute drop and patient was given 2 units of PRBC on 11/16/18. Of note, the Hgb checks between 11/16/18 to 11/17/18 may have been from Finger-Stick Complete Blood Counts because patient's right arm veins have been difficult to draw blood from and the left arm is considered a restricted limb because of patients history of left upper arm blood clot. It is unclear as to the degree of accuracy of the Finger-Stick blood draws. In addition, there may be some blood loss accounted by right groin hematoma -no evidence of DVT on left upper extremity venous ultrasound -allow for blood draw of left arm -currently hemoglobin remains stable at 9 or above (2) Melena: -reported melena as outpatient but patient also reported constipation; Gastroenterology 11/17/18 does not suspect acute GI bleed at this time and reported No current indication for endoscopic evaluation -fecal occult stool sent on 11/18/18 is positive however no gross bleeding noted to date and hemoglobin remains at 9 or above -continued oral pantoprazole for now (3) PVD (peripheral vascular disease): Patient with recent history of thrombectomy, femoral-femoral bypass, patch angioplasty of distal anastomosis right femoral 11/06/2018 secondary to prior graft occlusion -no evidence of DVT on left upper extremity venous ultrasound; no evidence of DVT on right lower extremity ultrasound (4) Hematoma of right thigh: Patient reports right upper leg ecchymosis for several days and right mireya in discomfort admission Right extremity CTA: 1. A 12 x 6 x 5 cm subcutaneous hematoma within the right groin extending into the proximal right thigh. No evidence for pseudoaneurysm. 2. The femorofemoral graft is now patent. 3. Multifocal moderate to severe narrowing throughout the [place] right superficial femoral artery and visualized bile duct to arteries described above. 4. 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 Both lumens remain opacified. as per vascular surgery evaluation on 11/17/18 they are not recommending vascular intervention at this time and they comment that the post op right groin hematoma with mild local inflammation and drainage and not larger than at discharge on last week and actually appears less ecchymotic and they commented that there is no full dehiscence of wound and no active bleeding noted on imaging and recommended to continue current antibiotic and pain control and that to continue to continue plavix and ASA currently on IV ciprofloxacin, blood cultures no growth to date as per 11/19/18 follow up vascular evaluation Dr. Jara advised to continue the dressing changes and Ciprofloxacin. Hospitalist also asked about Xarelto use which patient had taken after her initial femoral bypass as DVT prophylaxis and Dr. Jara does not advise Xarelto at this time. Hospitalist also asked about whether any concerns for right extremity CTA reporting a popliteal artery dissection of right leg and Dr. Jara reported that he believes the CTA scan is inaccurate 11/19/18: right leg noted to have more swelling; discussed with radiology Dr. Skelton and he does not advise CTA at this time. He reports that the 11/16/18 CTA of right popliteal artery dissection is small. he recommends vascular ultrasound to look for any possible occlusion instead of CTA. Antegrade flow is present in the bulk of the vessels throughout on arterial ultrasound of right leg. received IV Lasix 20mg for leg swelling 11/20/18: right groin hematoma serosanguinous drainage was swabbed. patient able to ambulate but requires IV pain medications. pain control is a focus at this time. getting IV Lasix 20 mg to help resolve swelling. patient also advised to leep right leg elevated when in bed. right groin hematoma serosanguinous drainage was swabbed to help determine how to transition off IV ciprofloxacin. (5) Back pain: -degenerative change seen on 11/16/18 Lumbar and Thoracic X rays -patient also expressed concern of right lower quadrant pain radiating to back after meals especially when eating meat and complains this has been going on for 2 years. previous 11/16/18 CT scan documents visualized normal pancreas and No intrahepatic or extrahepatic biliary ductal dilatation and Normal gallbladder. -it is possible that there is a sphincter of Oddi dysfunction or other biliary spasm that may account for this pain. may need outpatient gastroenterology evaluation once acute issues of anemia and groin hematoma resolves -CTA chest on 11/16/18 did not find acute source of back pain 1. No evidence of acute aortic injury. No acute intrathoracic pathology. 2. Multiple solid nodules bilaterally greater on the right with an upper lobe predominance. These are nonspecific and could potentially relate to smoking- related lung injury or granulomatous disease in the appropriate clinical setting. 3. Dominant solid spiculated 10 mm right upper lobe nodule. While this could relate to the aforementioned multiple solid pulmonary nodules, a neoplastic etiology is not excluded given the size and appearance. -pain medications as needed Lung nodules -will need outpatient follow up (6) Diabetes mellitus, type II: A1c 6.7 on 11/08/2018 -Hold glipizide, pioglitazone -Novolog sliding scale per protocol (7) HTN (hypertension): blood pressures are not elevated -continue to hold Lasix and hold lisinopril for now (8) CAD (coronary artery disease): S/P stent -Continue aspirin, Coreg, statin -has been getting IV Lasix (9) CVA (cerebral vascular accident): -Continue aspirin, statin, Plavix (10) COPD (chronic obstructive pulmonary disease): -Continue albuterol prn (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 Patient has been smoking since has been in rehab and has been using nicotine patch -Nicotine patch (13) Anxiety: -Continue buspirone DVT prophylaxis: on aspirin and clopidogrel for now. SCDs placed on left unaff ected leg, continue to hold Xarelto for now Full Code Daughter Melina: [phone]; [phone] Subjective right leg swelling. appears mildly less swelling compared to yesterday. calf ecchymosis unchanged. right groin hematoma serosanguinous drainage was swabbed. patient able to ambulate but required IV pain medications. no gross bleeding from orifices. no lightheadedness. no dizziness. no chest pain. no shortness of breath. Physical Exam Constitutional: cooperative Eyes: PERRL, conjunctivae normal, anicteric sclerae EOM intact bilaterally ENMT: external ear and nose normal, oropharynx normal Neck: trachea midline, no thyromegaly Respiratory: normal respiratory effort, lungs clear to auscultation Cardiovascular: Rate/Rhythm: regular rate and regular rhythm Gastrointestinal (Abdomen): normal bowel sounds, soft, nontender, no hepatosplenomegaly Musculoskeletal: right leg swelling. appears mildly less swelling compared to yesterday. calf ecchymosis unchanged. right groin hematoma serosanguinous drainage was swabbed. Neurologic: PERRL, EOMI, accommodation nl, no face palsy, no dysarthria Psychiatric: A+Ox3, euthymic affect Results & Data Vital Signs (Past 12 Hours) Vital Signs Temp Pulse Pulse Resp BP Pulse Ox 11/20/18 11:11 37.0 C 77 17 107/71 97 11/20/18 07:25 81 11/20/18 07:05 36.7 C 94 H 18 116/70 95 11/20/18 04:30 36.7 C 102 H 19 116/74 90 (1) Hematoma of right thigh Encounter type: initial encounter Qualified Code(s): S70.11XA - Contusion of right thigh, initial encounter
[2018-11-20] MEDS: ATORVASTATIN 40 MG TAB PO SCH (20:10)
[2018-11-21] MEDS: MoRPHine SULFATE 4 MG/ML 1 ML CARP\\VIAL IV PRN ×2 (04:14→08:32)
[2018-11-21] MEDS: INSULIN ASPART 100 UNITS/ML 3 ML PEN SC SCH ×3 (08:44→17:19)
[2018-11-21] MEDS: CIPROFLOXACIN 400 MG/200 ML BAG IV SCH (08:45)
[2018-11-21] MEDS ORDERED: ONDANSETRON 4 MG OD TAB PO PRN (08:47)
[2018-11-21] MEDS: BusPIRone 15 MG TAB PO SCH (08:48)
[2018-11-21] MEDS: PANTOprazole 40 MG TAB PO SCH (08:48)
[2018-11-21] MEDS: ASPIRIN 81 MG ECTAB PO SCH (08:48)
[2018-11-21] MEDS: CLOPIDOGREL BISULFATE 75 MG TAB PO SCH (08:48)
[2018-11-21] MEDS: LORATADINE 10 MG TAB PO SCH (08:48)
[2018-11-21] MEDS: NICOTINE 14 MG/24 HR PATCH TD SCH (08:49)
[2018-11-21] MEDS: GABAPENTIN 100 MG CAP PO SCH ×2 (08:49→15:15)
[2018-11-21] MEDS: CARVEDILOL 3.125 MG TAB PO SCH (08:53)
[2018-11-21] MEDS ORDERED: FUROSEMIDE 40 MG TAB PO SCH (09:30)
[2018-11-21] MEDS: DOCUSATE SODIUM 100 MG CAP PO SCH (09:48)
[2018-11-21] MEDS: CIPROFLOXACIN 500 MG TAB PO SCH ×2 (09:48→17:39)
[2018-11-21] MEDS ORDERED: Nursing to Pharmacy Communication ONE (09:49)
[2018-11-21] MEDS ORDERED: CIPROFLOXACIN 400 MG/200 ML BAG IV STA (09:53)
[2018-11-21] MEDS: OXYCODONE/ACETAMINOPHEN 5mg/325mg TAB PO PRN (13:54)
[2018-11-21] MEDS ORDERED: MoRPHine SULFATE 2 MG/ML CARP IV PRN (16:00)
[2018-11-21] MEDS ORDERED: TRAMADOL HCL 50 MG TABLET PO PRN (16:46)
[2018-11-21] MEDS ORDERED: TRAMADOL HCL 50 MG TABLET PO STA (16:59)
--- NOTE | 2018-11-21 17:41 | Hospitalist Progress Note ---
Date of Service November 21, 2018 Assessment & Plan (1) Anemia: Acute blood loss anemia in setting of postoperative hematoma treated with 2 units of PRBC's -Patient with recent history of thrombectomy, femoral-femoral bypass, patch angioplasty of distal anastomosis right femoral 11/06/2018 secondary to prior graft occlusion and initially came to the emergency room for 11/16/18 for back pain and during the evaluation, there was concern that patient may have had recent melena in her stool although patient reports not having bowel movement for last 3 days. On lab work up, patient's blood count in the emergency room was found to be 7 and in comparison to her hemoglobin on 11/09/18 of 8.3, this was concerning for an acute drop and patient was given 2 units of PRBC on 11/16/18. Of note, the Hgb checks between 11/16/18 to 11/17/18 may have been from Finger-Stick Complete Blood Counts because patient's right arm veins have been difficult to draw blood from and the left arm is considered a restricted limb because of patients history of left upper arm blood clot. It is unclear as to the degree of accuracy of the Finger-Stick blood draws. In addition, there may be some blood loss accounted by right groin hematoma -no evidence of DVT on left upper extremity venous ultrasound -allow for blood draw of left arm -currently hemoglobin remains stable at 9 or above (2) Melena: -reported melena as outpatient but patient also reported constipation; Gastroenterology 11/17/18 does not suspect acute GI bleed at this time and reported No current indication for endoscopic evaluation -fecal occult stool sent on 11/18/18 is positive however no gross bleeding noted to date and hemoglobin remains at 9 or above -continued oral pantoprazole for now (3) PVD (peripheral vascular disease): Patient with recent history of thrombectomy, femoral-femoral bypass, patch angioplasty of distal anastomosis right femoral 11/06/2018 secondary to prior graft occlusion -no evidence of DVT on left upper extremity venous ultrasound; no evidence of DVT on right lower extremity ultrasound (4) Hematoma of right thigh: Patient reports right upper leg ecchymosis for several days and right gr oin discomfort admission Right extremity CTA: 1. A 12 x 6 x 5 cm subcutaneous hematoma within the right groin extending into the proximal right thigh. No evidence for pseudoaneurysm. 2. The femorofemoral graft is now patent. 3. Multifocal moderate to severe narrowing throughout the [place] right superficial femoral artery and visualized bile duct to arteries described above. 4. 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 Both lumens remain opacified. as per vascular surgery evaluation on 11/17/18 they are not recommending vascular intervention at this time and they comment that the post op right groin hematoma with mild local inflammation and drainage and not larger than at discharge on last week and actually appears less ecchymotic and they commented that there is no full dehiscence of wound and no active bleeding noted on imaging and recommended to continue current antibiotic and pain control and that to continue to continue plavix and ASA currently on IV ciprofloxacin, blood cultures no growth to date as per 11/19/18 follow up vascular evaluation Dr. Jara advised to continue the dressing changes and Ciprofloxacin. Hospitalist also asked about Xarelto use which patient had taken after her initial femoral bypass as DVT prophylaxis and Dr. Jara does not advise Xarelto at this time. Hospitalist also asked about whether any concerns for right extremity CTA reporting a popliteal artery dissection of right leg and Dr. Jara reported that he believes the CTA scan is inaccurate 11/19/18: right leg noted to have more swelling; discussed with radiology Dr. Skelton and he does not advise CTA at this time. He reports that the 11/16/18 CTA of right popliteal artery dissection is small. he recommends vascular ultrasound to look for any possible occlusion instead of CTA. Antegrade flow is present in the bulk of the vessels throughout on arterial ultrasound of right leg. received IV Lasix 20mg for leg swelling 11/20/18: right groin hematoma serosanguinous drainage was swabbed. patient able to ambulate but requires IV pain medications. pain control is a focus at this time. getting IV Lasix 20 mg to help resolve swelling. patient also advised to leep right leg elevated when in bed. right groin hematoma serosanguinous drainage was swabbed to help determine how to transition off IV ciprofloxacin. 11/21/18: patient allowed to be transitioned to oral ciprofloxacin as per disccussions with Dr. Jara Patient should follow up with Vascular surgeon Dr. Jara in 2 weeks in the clinic. Patient is prescribed ciprofloxacin 500 mg twice a day for 10 days and should take this medication while there is still serosanguinous drainage from the hematoma. Do not take Xarelto for no Discharge to Home (under care of family) and with case management referral for [facility] Patient may take acetaminophen 325 mg every 6 hours as needed for fever or mild pain [place] PDMP was checked and patient previously prescribed oxycodone- acetaminophen by Vascular service KWESI Walker who works with Dr. Jara. Patient may takes these supply for moderate to severe pain Patient may take tramadol 50 mg every 6 hours as needed for moderate or severe pain (16 tablets prescribed) Patient allowed to shower but should do daily dressing changes to the right groin hematoma area (5) Back pain: -degenerative change seen on 11/16/18 Lumbar and Thoracic X rays -11/28/2018 11:00 AM Provider SHREE Joel Department Gastroenterology, [facility] follow up with gastronenterology doctor for positive fecal occult blood in stool and chronic abdominal symptoms with meals (patient also expressed concern of right lower quadrant pain radiating to back after meals especially when eating meat and complains this has been going on for 2 years. previous 11/16/18 CT scan documents visualized normal pancreas and No intrahepatic or extrahepatic biliary ductal dilatation and Normal gallbladder. -it is possible that there is a sphincter of Oddi dysfunction or other biliary spasm that may account for this pain. may need outpatient gastroenterology evaluation once acute issues of anemia and groin hematoma resolves) -on low fat, diet avoiding meat products -Patient has been taking odansetron (Zofran) for nausea. When at home on oral ciprofloxacin, patient should generally avoid Zofran as much as possible because of potential drug interactions with ciprofloxacin. Only a 16 tablet prescription is prescribed Lung Nodules -11/27/2018 11:20 AM Provider Salvatore Adams MD Department Internal Medicine [facility] follow up with primary care doctor because of lung findings and repeat blood counts (CTA chest on 11/16/18 did not find acute source of back pain 1. No evidence of acute aortic injury. No acute intrathoracic pathology. 2. Multiple solid nodules bilaterally greater on the right with an upper lobe predominance. These are nonspecific and could potentially relate to smoking- related lung injury or granulomatous disease in the appropriate clinical setting. 3. Dominant solid spiculated 10 mm right upper lobe nodule. While this could relate to the aforementioned multiple solid pulmonary nodules, a neoplastic etiology is not excluded given the size and appearance.) (6) Diabetes mellitus, type II: A1c 6.7 on 11/08/2018 -patient may resume home dose glipizide, pioglitazone on discharge (7) HTN (hypertension): -resumed on home dose oral Lasix -patient may restart low dose lisinopril for renal protection of Diabetes (8) CAD (coronary artery disease): S/P stent -Continue aspirin, Coreg, statin -oral Lasix (9) CVA (cerebral vascular accident): -Continue aspirin, statin, Plavix (10) COPD (chronic obstructive pulmonary disease): -no acute respiratory issues during this hospital stay -albuterol as needed (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 Patient has been smoking since has been in rehab and has been using nicotine patch (13) Anxiety: -Continue buspirone DVT prophylaxis: on aspirin and clopidogrel for now. SCDs placed on left unaffected leg, continue to hold Xarelto for now Full Code Daughter Melina: [phone]; [phone] Discharge Diagnosis Acute blood loss anemia in setting of postoperative hematoma treated with 2 units of PRBC's, Melena, PVD (peripheral vascular disease), hematoma of right thigh (groin); Back pain (possible that there is a sphincter of Oddi dysfunction or other biliary spasm); Lung nodules Subjective patient reports she is ambulating without severe discomfort and wants to go home. less right leg swelling today. patient denies chest pain or shortness of breath or palpitations or lightheadedness or dizziness. Physical Exam 2 Constitutional: cooperative Eyes: PERRL, conjunctivae normal, anicteric sclerae EOM intact bilaterally ENMT: external ear and nose normal, oropharynx normal Neck: trachea midline, no thyromegaly Respiratory: normal respiratory effort, lungs clear to auscultation Cardiovascular: Rate/Rhythm: regular rate and regular rhythm Gastrointestinal (Abdomen): normal bowel sounds, soft, nontender, no hepatosplenomegaly Musculoskeletal: Head/Neck/Chest: normocephalic and head atraumatic Extremities: + lower leg abnormality (right leg swelling.) Hip: + hip abnormal to inpsection (right groin hematoma with gauze with dried serosanguinous stains) Neurologic: PERRL, EOMI, accommodation nl, no face palsy, no dysarthria Psychiatric: A+Ox3, euthymic affect Results & Data Vital Signs (Past 12 Hours) Vital Signs Temp Pulse Pulse Resp BP Pulse Ox 11/21/18 15:47 36.5 C 79 20 110/65 98 11/21/18 12:00 36.6 C 79 18 99/63 L 98 11/21/18 08:54 96 H 110/71 11/21/18 07:50 36.6 C 93 H 20 92/54 L 91 11/21/18 07:25 90 (1) Hematoma of right thigh Encounter type: initial encounter Qualified Code(s): S70.11XA - Contusion of right thigh, initial encounter
--- NOTE | 2018-11-21 17:59 | Discharge Summary ---
Date of Service November 21, 2018 Admission HPI Per Admitting Provider Pt is 68 y/o F with PMH PVD with recent history of thrombectomy, femoral-femoral bypass, patch angioplasty of distal anastomosis right femoral 11/06/2018, CAD s/p stent, stroke, HTN, HLD, DM, COPD, tobacco use, Pendleton's esophagitis presented to ER with complaint of back pain. Patient reports intermittent upper and lower back for a couple of years however the past 3 days has been having upper mid and right-sided back pain that is described as stabbing and constant patient reports cannot get comfortable secondary to pain. Reports pain with intermittent increased stabbing "jolts" and worse with movement. Reports this back pain however this feels different from her chronic pain. Denies chest pain or shortness of breath. Today feeling a little dizzy denies syncope. Also reports upper abdominal pain the last couple of days. Reports has had melena for the last 3 days and may have been going on longer (patient poor historian). Reports constipation which has increased since surgery and having small BMs and thinks last BM was yesterday. Denies recent injury or fall. Patient reports has had clear bloody drainage from incision site to right groin. Also complains of right groin pain. Noticed large bruising to right upper leg. Denies paresthesias. C/O dry cough pas couple of days. Reports history of blood clot in the left upper extremity 15 years ago. Denies fever/chills, diaphoresis, N/V, hematochezia, hematemesis, CHRISTENSEN, syncope, vision changes, neck pain, CP, SOB, orthopnea, palpitations, sore throat, choking, otalgia, rhinorrhea, rashes, urinary symptoms. Admission Exam Per Admitting Provider General: chronic ill appearing, obese, +moderate pain, moving around on bed secondary to reported thoracic back pain Head: normocephalic, atraumatic Eyes: PERRL, EOM's intact, conjunctiva non-injected, anicteric ENT: normal inspection external ears, nose, mucous membranes moist Neck: supple, trachea midline, non-tender Lungs: clear, no respiratory distress, no wheezing/rhonchi/rales CV: RRR, no murmur, no pretibial edema Abd: normal BS, soft, mild tenderness to palpation epigastric region without rebound or guarding Back: no rashes or discoloration, +tenderness to light palpation upper thoracic region, greater on right side Ext: no cyanosis, no calf tenderness; RLE: right groin with incision site with serosanguineous drainage noted on dressing without significant surrounding erythema, upper leg with large ecchymosis Neuro: A&O x 3, no focal deficits noted, normal affect Skin: warm, dry Principal Diagnosis Acute blood loss anemia in setting of postoperative hematoma treated with 2 units of PRBC's, Melena, PVD (peripheral vascular disease), hematoma of right thigh (groin); Back pain (possible that there is a sphincter of Oddi dysfunction or other biliary spasm); Lung nodules Discharge Exam Constitutional cooperative Eyes PERRL, conjunctivae normal, anicteric sclerae EOM intact bilaterally ENMT external ear and nose normal, oropharynx normal Neck trachea midline, no thyromegaly Respiratory normal respiratory effort, lungs clear to auscultation Cardiovascular Rate/Rhythm: regular rate and regular rhythm Gastrointestinal (Abdomen) normal bowel sounds, soft, nontender, no hepatosplenomegaly Musculoskeletal Head/Neck/Chest: normocephalic and head atraumatic Extremities: + lower leg abnormality (right leg swelling.) Hip: + hip abnormal to inpsection (right groin hematoma with gauze with dried serosanguinous stains) Neurologic PERRL, EOMI, accommodation nl, no face palsy, no dysarthria Psychiatric A+Ox3, euthymic affect Discharge Data Allergies Allergy/AdvReac Type Severity Reaction Status Date / Time Penicillins Allergy Mild Vomiting Verified 11/16/18 13:08 mushroom Allergy Verified 11/16/18 13:08 strawberry Allergy Verified 11/16/18 13:08 nitroglycerin AdvReac Mild DECREASED Verified 11/16/18 13:08 BP hydrocodone [From Lortab] AdvReac Vomiting Verified 11/16/18 13:08 Consultations 11/16/18 13:30 ED Decision to Admit Stat 11/16/18 18:27 Consult Case Management - Discharge Planning Routine Consult Gastroenterology Routine Consult Vascular Surgery Routine Ordered Studies 11/16/18 11:35 CT angio abdomen pelvis w con Stat 11/16/18 12:03 CT angio femur RT wo/w con Stat 11/16/18 14:56 CT angio chest dissec wo/w con Stat 11/17/18 17:35 US venous doppler LE RT Stat US venous doppler UE LT Stat 11/19/18 15:29 US arterial duplex LE RT Routine Hospital Course (1) Anemia: Acute blood loss anemia in setting of postoperative hematoma treated with 2 units of PRBC's -Patient with recent history of thrombectomy, femoral-femoral bypass, patch angioplasty of distal anastomosis right femoral 11/06/2018 secondary to prior graft occlusion and initially came to the emergency room for 11/16/18 for back pain and during the evaluation, there was concern that patient may have had recent melena in her stool although patient reports not having bowel movement for last 3 days. On lab work up, patient's blood count in the emergency room was found to be 7 and in comparison to her hemoglobin on 11/09/18 of 8.3, this was concerning for an acute drop and patient was given 2 units of PRBC on 11/16/18. Of note, the Hgb checks between 11/16/18 to 11/17/18 may have been from Finger-Stick Complete Blood Counts because patient's right arm veins have been difficult to draw blood from and the left arm is considered a restricted limb because of asya barker history of left upper arm blood clot. It is unclear as to the degree of accuracy of the Finger-Stick blood draws. In addition, there may be some blood loss accounted by right groin hematoma -no evidence of DVT on left upper extremity venous ultrasound -allow for blood draw of left arm -currently hemoglobin remains stable at 9 or above (2) Melena: -reported melena as outpatient but patient also reported constipation; Gastroenterology 11/17/18 does not suspect acute GI bleed at this time and reported No current indication for endoscopic evaluation -fecal occult stool sent on 11/18/18 is positive however no gross bleeding noted to date and hemoglobin remains at 9 or above -continued oral pantoprazole for now (3) PVD (peripheral vascular disease): Patient with recent history of thrombectomy, femoral-femoral bypass, patch angioplasty of distal anastomosis right femoral 11/06/2018 secondary to prior gra ft occlusion -no evidence of DVT on left upper extremity venous ultrasound; no evidence of DVT on right lower extremity ultrasound (4) Hematoma of right thigh: Patient reports right upper leg ecchymosis for several days and right groin discomfort admission Right extremity CTA: 1. A 12 x 6 x 5 cm subcutaneous hematoma within the right groin extending into the proximal right thigh. No evidence for pseudoaneurysm. 2. The femorofemoral graft is now patent. 3. Multifocal moderate to severe narrowing throughout the [place] right superficial femoral artery and visualized bile duct to arteries described above. 4. 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 Both lumens remain opacified. as per vascular surgery evaluation on 11/17/18 they are not recommending vascular intervention at this time and they comment that the post op right groin hematoma with mild local inflammation and drainage and not larger than at discharge on last week and actually appears less ecchymotic and they commented that there is no full dehiscence of wound and no active bleeding noted on imaging and recommended to continue current antibiotic and pain control and that to continue to continue plavix and ASA currently on IV ciprofloxacin, blood cultures no growth to date as per 11/19/18 follow up vascular evaluation Dr. Jara advised to continue the dressing changes and Ciprofloxacin. Hospitalist also asked about Xarelto use which patient had taken after her initial femoral bypass as DVT prophylaxis and Dr. Jara does not advise Xarelto at this time. Hospitalist also asked about whether any concerns for right extremity CTA reporting a popliteal artery dissection of right leg and Dr. Jara reported that he believes the CTA scan is inaccurate 11/19/18: right leg noted to have more swelling; discussed with radiology Dr. Skelton and he does not advise CTA at this time. He reports that the 11/16/18 CTA of right popliteal artery dissection is small. he recommends vascular ultrasound to look for any possible occlusion instead of CTA. Antegrade flow is present in the bulk of the vessels throughout on arterial ultrasound of right leg. received IV Lasix 20mg for leg swelling 11/20/18: right groin hematoma serosanguinous drainage was swabbed. patient able to ambulate but requires IV pain medications. pain control is a focus at this time. getting IV Lasix 20 mg to help resolve swelling. patient also advised to leep right leg elevated when in bed. right groin hematoma serosanguinous drainage was swabbed to help determine how to transition off IV ciprofloxacin. 11/21/18: patient allowed to be transitioned to oral ciprofloxacin as per disccussions with Dr. Jara Patient should follow up with Vascular surgeon Dr. Jara in 2 weeks in the clinic. Patient is prescribed ciprofloxacin 500 mg twice a day for 10 days and should take this medication while there is still serosanguinous drainage from the hematoma. Do not take Xarelto for no Discharge to Home (under care of family) and with case management referral for [facility] health Patient may take acetaminophen 325 mg every 6 hours as needed for fever or mild pain [place] PDMP was checked and patient previously prescribed oxycodone- acetaminophen by Vascular service KWESI Walker who works with Dr. Jara. Patient may takes these supply for moderate to severe pain Patient may take tramadol 50 mg every 6 hours as needed for moderate or severe pain (16 tablets prescribed) Patient allowed to shower but should do daily dressing changes to the right groin hematoma area (5) Back pain: -degenerative change seen on 11/16/18 Lumbar and Thoracic X rays -11/28/2018 11:00 AM Provider SHREE Joel Department Gastroenterology, [facility] follow up with gastronenterology doctor for positive fecal occult blood in stool and chronic abdominal symptoms with meals (patient also expressed concern of right lower quadrant pain radiating to back after meals especially when eating meat and complains this has been going on for 2 years. previous 11/16/18 CT scan documents visualized normal pancreas and No intrahepatic or extrahepatic biliary ductal dilatation and Normal gallbladder. -it is possible that there is a sphincter of Oddi dysfunction or other biliary spasm that may account for this pain. may need outpatient gastroenterology evaluation once acute issues of anemia and groin hematoma resolves) -on low fat, diet avoiding meat products -Patient has been taking odansetron (Zofran) for nausea. When at home on oral ciprofloxacin, patient should generally avoid Zofran as much as possible because of potential drug interactions with ciprofloxacin. Only a 16 tablet prescription is prescribed Lung Nodules -11/27/2018 11:20 AM Provider Salvatore Adams MD Department Internal Medicine [facility] follow up with primary care doctor because of lung findings and repeat blood counts (CTA chest on 11/16/18 did not find acute source of back pain 1. No evidence of acute aortic injury. No acute intrathoracic pathology. 2. Multiple solid nodules bilaterally greater on the right with an upper lobe predominance. These are nonspecific and could potentially relate to smoking- related lung injury or granulomatous disease in the appropriate clinical setting. 3. Dominant solid spiculated 10 mm right upper lobe nodule. While this could relate to the aforementioned multiple solid pulmonary nodules, a neoplastic etiology is not excluded given the size and appearance.) (6) Diabetes mellitus, type II: A1c 6.7 on 11/08/2018 -patient may resume home dose glipizide, pioglitazone on discharge (7) HTN (hypertension): -resumed on home dose oral Lasix -patient may restart low dose lisinopril for renal protection of Diabetes (8) CAD (coronary artery disease): S/P stent -Continue aspirin, Coreg, statin -oral Lasix (9) CVA (cerebral vascular accident): -Continue aspirin, statin, Plavix (10) COPD (chronic obstructive pulmonary disease): -no acute respiratory issues during this hospital stay -albuterol as needed (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 Patient has been smoking since has been in rehab and has been using nicotine patch (13) Anxiety: -Continue buspirone DVT prophylaxis: on aspirin and clopidogrel for now. SCDs placed on left unaffected leg, continue to hold Xarelto for now Full Code Daughter Melina: [phone]; [phone] Discharge Diagnosis Acute blood loss anemia in setting of postoperative hematoma treated with 2 units of PRBC's, Melena, PVD (peripheral vascular disease), hematoma of right thigh (groin); Back pain (possible that there is a sphincter of Oddi dysfunction or other biliary spasm); Lung nodules Total Time Total Time Spent Total Time Spent (In Minutes): 40 minutes Total Time Includes: Examination of the Patient, Discharge Planning, Medication Reconciliation and Communication With Other Providers Discharge Plan Discharge Items Patient Disposition: Home - Home Health Services Reason For Visit: ANEMIA, HEMATOMA Discharge Diagnosis: Anemia, Melena, PVD (peripheral vascular disease), hematoma of right thigh (groin); Back pain (possible that there is a sphincter of Oddi dysfunction or other biliary spasm); Lung nodules Condition: Good Discharge Goals: Decrease discomfort Activity: Per Instructions section Non-emergency contact: Primary Care Provider and Specialist Call non-emergency contact if: you have any medication questions Follow-up/Referrals: Salvatore Adams MD [Primary Care Provider] - Diet: Carb Consistent or DM2 and Low Fat Addtl Provider Instructions: Discharge to Home (under care of family) and with case management referral for [facility] health Patient may take acetaminophen 325 mg every 6 hours as needed for fever or mild pain [place] PDMP was checked and patient previously prescribed oxycodone- acetaminophen by Vascular service KWESI Walker who works with Dr. Jara. Patient may takes these supply for moderate to severe pain Patient may take tramadol 50 mg every 6 hours as needed for moderate or severe pain (16 tablets prescribed) Patient allowed to shower but should do daily dressing changes to the right groin hematoma area Patient should follow up with Vascular surgeon Dr. aJra in 2 weeks in the clinic. Patient is prescribed ciprofloxacin 500 mg twice a day for 10 days and should take this medication while there is still serosanguinous drainage from the hematoma. Do not take Xarelto for now Patient has been taking odansetron (Zofran) for nausea. When at home on oral ciprofloxacin, patient should generally avoid Zofran as much as possible because of potential drug interactions with ciprofloxacin. Only a 16 tablet prescription is prescribed 11/27/2018 11:20 AM Provider Salvtaore Adams MD Department Internal Medicine [facility] follow up with primary care doctor because of lung findings and repeat blood counts (CTA chest on 11/16/18 did not find acute source of back pain 1. No evidence of acute aortic injury. No acute intrathoracic pathology. 2. Multiple solid nodules bilaterally greater on the right with an upper lobe predominance. These are nonspecific and could potentially relate to smoking- related lung injury or granulomatous disease in the appropriate clinical setting. 3. Dominant solid spiculated 10 mm right upper lobe nodule. While this could relate to the aforementioned multiple solid pulmonary nodules, a neoplastic etiology is not excluded given the size and appearance.) 11/28/2018 11:00 AM Provider SHREE Joel Department Gastroenterology, [facility] follow up with gastronenterology doctor for positive fecal occult blood in stool and chronic abdominal symptoms with meals (patient also expressed concern of right lower quadrant pain radiating to back after meals especially when eating meat and complains this has been going on for 2 years. previous 11/16/18 CT scan documents visualized normal pancreas and No intrahepatic or extrahepatic biliary ductal dilatation and Normal gallbladder. -it is possible that there is a sphincter of Oddi dysfunction or other biliary spasm that may account for this pain. may need outpatient gastroenterology evaluation once acute issues of anemia and groin hematoma resolves) 01/02/2019 1:00 PM Provider Salvatore Adams MD Department Internal Medicine [facility] Prescriptions: New ciprofloxacin HCl 500 mg Tablet 500 mg PO BID 10 Days Qty: 20 RF: 0 acetaminophen [Mapap (acetaminophen)] 325 mg Tablet 325 mg PO Q6H PRN (Reason: fever or pain) 10 Days Qty: 40 RF: 0 ondansetron 4 mg Tablet,Disintegrating 4 mg PO Q8H PRN (Reason: nausea and vomiting) 4 Days Qty: 16 RF: 0 tramadol 50 mg Tablet 50 mg PO Q6H PRN (Reason: moderate to severe pain) 4 Days Qty: 16 RF: 0 Continued furosemide 40 mg tablet 40 mg PO QAM RF: 0 atorvastatin 40 mg tablet 40 mg PO QPM RF: 0 glipizide 10 mg tablet 10 mg PO BID RF: 0 clopidogrel 75 mg tablet 75 mg PO QAM RF: 0 omeprazole 40 mg capsule,delayed release(DR/EC) 40 mg PO BID RF: 0 aspirin 81 mg Tablet,Delayed Release (Dr/Ec) 81 mg PO QAM RF: 0 carvedilol 3.125 mg tablet 3.125 mg PO BID RF: 0 gabapentin 100 mg capsule 100 mg PO TID RF: 0 pioglitazone 30 mg tablet 30 mg PO QAM RF: 0 fluticasone propionate 50 mcg/actuation spray,suspension 1 spray intranasal DAILY PRN (Reason: Nasal Congestion) RF: 0 lisinopril 2.5 mg tablet 2.5 mg PO QAM RF: 0 loratadine 10 mg tablet 10 mg PO QAM RF: 0 buspirone 15 mg tablet 15 mg PO BID RF: 0 oxycodone-acetaminophen [Percocet] 5-325 mg Tablet 1 tab PO Q6H PRN (Reason: Pain) Qty: 60 RF: 0 docusate sodium 100 mg Capsule 100 mg PO BID Qty: 60 RF: 0 polyethylene glycol 3350 [Miralax] 17 gram Powder In Packet 17 g PO DAILY PRN (Reason: Constipation) Qty: 30 RF: 0 nicotine [Nicoderm CQ] 14 mg/24 hr Patch 24 Hour 1 patch TRANSDERMAL QAM RF: 0 magnesium hydroxide 400 mg/5 mL Suspension 30 ml PO UD PRN (Reason: Constipation) RF: 0 albuterol sulfate [Ventolin HFA] 90 mcg/actuation Hfa Aerosol Inhaler 2 puff INHALATION Q4 PRN (Reason: Shortness Of Breath) RF: 0 Discontinued Xarelto 2.5 mg Tablet 2.5 mg PO BID Qty: 60 RF: 5 acetaminophen 325 mg Tablet 650 mg PO Q6H PRN (Reason: Pain) RF: 0 ondansetron HCl 4 mg Tablet 4 mg PO Q6 PRN (Reason: Nausea) RF: 0 Stand-Alone Forms: [facility] Discharge Orders: Discharge Order (Routine); Ordered 11/21/18 Ordered By: Ferdinand Ng Admission Data Admit Date/Time: 11/17/18 17:40 Attending Provider: Ferdinand Ng Admit Provider: Meliton Sims Primary Care Provider: Salvatore Adams Other Providers: Arie Zuñiga ; Meliton Sims ; Alex Jara Service: Telemetry
== END 2018-11-21 19:30 | disposition home health service (06) | DRG 920 ==
LOC: 2S 09:58 → ED 09:58 → 2S 17:44

== ENCOUNTER 2019-07-02 15:47 | Inpatient (IN) ==
[2019-07-02] MEDS ORDERED: ONDANSETRON INJ 2 MG/ML 2 ML VIAL IV STA (16:22)
[2019-07-02] MEDS ORDERED: MoRPHine SULFATE 4 MG/ML 1 ML CARP\\VIAL IV STA (16:22)
[2019-07-02] MEDS ORDERED: ALBUT/IPRATROP 3MG/0.5MG NEB 3 ML VIAL NEB STA (16:23)
--- NOTE | 2019-07-02 16:28 | Emergency Department Note ---
Impression & Plan Precordial chest pain, SOB (shortness of breath), Wheezing, Edema of right lower leg, Elevated troponin, Abnormal chest CT ED Provider Note NAME: MARY ANNE WODOARD AGE: 68 SEX: F : 1950 ARRIVES VIA: Walk-In INFORMANT: [Patient] ED PROVIDER(S): [Mak Delgado MD] CHIEF COMPLAINT: Right leg pain and swelling HISTORY OF PRESENT ILLNESS: Patient is a 68-year-old female who presents with 4 days of right leg pain and swelling. The patient states that the pain is severe. [id number] pain meds are not working. The patient states that she has had arterial work on this leg. She had issues with a blocked artery and needed to have surgical intervention. Patient denies any trauma. She denies fever or chills. She admits that she has experienced some shortness of breath and chest pain as well over the last few days. Her doctors have her on prednisone, she is on day 5 of her prednisone. She is not currently taking any antibiotic. The patient's right leg pain is constant. It is severe. It does not get better or worse with positioning or really with medications. Patient did contact her vascular surgeon's office and was sent to the ED. Of note, the patient has no known coronavirus exposures. She has been isolating at home. REVIEW OF SYSTEMS: See HPI for pertinent positives and negatives. A total of ten systems were reviewed and were otherwise negative. PMHx/PSHx: See Below SOCIAL HISTORY: See Below. PHYSICAL EXAM: GENERAL: Patient is in moderate distress from pain, anxious at times. HEENT: No acute trauma, normocephalic atraumatic, mucous membranes moist, no nasal congestion, no scleral icterus. NECK: No stridor, no adenopathy, no meningismus, trachea is midline. LUNGS: Scattered wheezing and scattered crackles bilaterally, breath sounds are equal. There is no respiratory distress. A moist cough is noted. HEART: Without murmurs gallops or rubs, regular rate and rhythm. ABDOMEN: Soft, nontender, bowel sounds positive, no hernias, no peritonitis. EXTREMITIES: No cyanosis. The right lower extremity is edematous when compared to the left. The right foot has more warmth than the left. There is some erythema around the toes and to the planar bar aspect of the right foot. No ascending infection/erythema noted. Palpation of the right foot does cause pain. There is no gross deformity. NEUROLOGIC: Oriented x 3, no acute motor or sensory deficits, no focal weakness. SKIN: No rash, no jaundice, no diaphoresis. DIFFERENTIAL DIAGNOSIS: Muscular strain, fracture, dislocation, DVT, joint effusion, infection, soft tissue injury, cellulitis, DVT, vascular compromise, pneumonia, CHF, bronchitis, MS, PE, as well as other pathologies. EMERGENCY DEPARTMENT COURSE/PROCEDURES: ECG: Indication was chest pain. There is a sinus rhythm with PACs. The rate is 84. There is some baseline artifact. No ST elevation, no PVCs. QTC is 444. Continuous Cardiac Monitoring: An order was placed for continuous cardiac monitoring. The monitor shows a rate of 84 with sinus rhythm with some PACs. MEDICAL DECISION MAKING: There is a mild leukocytosis, this of course could be consistent with infection. No concerning anemia. There is no coagulopathy. No significant electrolyte abnormality or kidney failure. No concerning liver enzyme elevation. No evidence for pancreatitis. EKG shows a sinus rhythm, no acute ischemia. Cardiac enzyme testing x1 does show some elevation. This troponin elevation could be consistent with cardiac injury, mismatch or potentially cardiac strain. Chest film showed some chronic findings, no obvious pneumonia, no pneumothorax. Right leg arterial and venous ultrasounds were done. There was no acute arterial occlusion, there was no acute DVT. A CT of the chest was done, a potential malignancy was seen, there was no PE, no pneumonia. The patient presents to the ED with complaints of right leg pain and swelling. She also complained of chest pain and dyspnea. Work-up today does suggest a potential lung malignancy. She has a troponin elevation. The patient received a DuoNeb. She was given IV morphine for pain, IV Zofran for nausea. Given the troponin elevation, given the new chest CT findings, I do think further work-up is warranted. The reason for the leg swelling and pain is not clear however, the edema may be from her recent prednisone use. Clinically, she does not seem to have an acute cellulitis. The cause for the troponin elevation is unclear. With her chest pain complaints though, further cardiac work-up is warranted. The new findings on chest CT can be worked through here in the hospital as well. I spoke to the patient, I talked with case management. The on-call hospitalist has been consulted. Past Med/Surg History Medical History Anemia Anxiety (Chronic) [place] esophagus (Chronic) COPD (chronic obstructive pulmonary disease) (Chronic) inhaler prn Coronary artery disease, occlusive Critical limb ischemia with history of revascularization of same extremity (Resolved) RLE CVA (cerebral vascular accident) (Chronic) 2008--slight left side weakness (no assistive devices)--follows with Dr. Astudillo Diabetes mellitus, type II (Chronic) GI bleed Glaucoma bilt eyes HTN (hypertension) (Chronic) Hyperlipidemia (Chronic) Myocardial infarction (Resolved) x2 2000/2003--currently does not have a cell tester On anticoagulant therapy plavix daily Osteoarthritis PVD (peripheral vascular disease) (Chronic) Surgical History H/O: hysterectomy (Chronic) History of appendectomy History of bilateral cataract extraction History of bilateral tubal ligation History of bronchoscopy History of cardiac cath x2 both @ [place]--2000 with 1 stent/2003--no stent, instead fem-pop bypass History of carotid endarterectomy (Chronic) 2009 on right side History of colonoscopy with polypectomy History of dilatation and curettage x3 History of endoscopic sinus surgery History of esophagogastroduodenoscopy (EGD) History of heart artery stent x1 before 2000? @ [place] History of repair of right rotator cuff x2 History of tooth extraction most teeth Status post femoral-popliteal bypass surgery (Chronic) 2004 Status post femoropopliteal bypass surgery 11/06/[address] Jara---thrombectomy/Femoral-femoral bypass Family History Sister Family history of diabetes mellitus Family history of esophageal cancer Family hx of colon cancer Sister Family history of diabetes mellitus Sister Family history of diabetes mellitus Sister Family history of diabetes mellitus Sister Family history of diabetes mellitus Sister Family history of diabetes mellitus Sister Family history of diabetes mellitus Brother Family history of diabetes mellitus Brother Family history of diabetes mellitus Brother Family history of diabetes mellitus Other Diabetes No family history of adverse response to anesthesia Stroke Social History Preferred Language: Zimbabwean Communication Ability: Effective Mushroom Growing Supervisor Required: No Beliefs That Will Affect Care: None Current Living Situation: Family Current Living Situation Comment: Lives with daughter Feels Safe at Home: Yes Smoking Status: Current every day smoker Tobacco Type: cigarettes ; Cigarettes Per Day: 5 a day ; Second Hand Exposure: No ; Hx Alcohol Use: No Hx Substance Use: No Allergies Allergies Allergy/AdvReac Type Severity Reaction Status Date / Time methadone Allergy Severe "couldn't Verified 03/21/19 18:20 swallow/eyes coming out of head" nickel Allergy Severe swelling Verified 03/21/19 18:20 and infections nitroglycerin Allergy Intermediate DECREASED Verified 03/21/19 18:20 BP propoxyphene Allergy Intermediate edema to Verified 03/21/19 18:20 face/lips/tongue diclofenac Allergy Mild Rash Verified 03/21/19 18:20 hydrocodone Allergy Mild "severe Verified 03/21/19 18:20 constipation" levofloxacin [From Levaquin] Allergy Mild nausea/vomi Verified 03/21/19 18:20 ting mushroom Allergy Mild nausea/abd Verified 03/21/19 18:20 pain onion Allergy Mild nausea/vomi Verified 03/21/19 18:20 ting Penicillins Allergy Mild severe Verified 03/21/19 18:20 diarrhea/rash pine nut Allergy Mild Rash Verified 03/21/19 18:20 sitagliptin [From Januvia] Allergy Mild rash Verified 03/21/19 18:20 "blood blisters" strawberry Allergy Mild Diarrhea Verified 03/21/19 18:20 Home Meds Home Medications Medication Instructions Recorded Confirmed aspirin 81 mg PO QAM 11/06/18 07/02/19 atorvastatin 40 mg PO QPM 11/06/18 07/02/19 buspirone 15 mg PO BID 11/06/18 07/02/19 clopidogrel 75 mg PO QAM 11/06/18 07/02/19 fluticasone propionate 1 spray INTRANASAL DAILY PRN 11/06/18 07/02/19 glipizide 10 mg PO BID 11/06/18 07/02/19 loratadine 10 mg PO QAM 11/06/18 07/02/19 omeprazole 40 mg PO BID 11/06/18 07/02/19 pioglitazone 30 mg PO QAM 11/06/18 07/02/19 albuterol sulfate [Ventolin HFA] 2 puff INHALATION Q4 PRN 11/16/18 07/02/19 dicyclomine 10 mg PO TID PRN 01/11/19 07/02/19 gabapentin 300 mg PO TID 01/11/19 07/02/19 tramadol 50 mg PO Q6H 01/11/19 07/02/19 acetaminophen 650 mg PO QID PRN 03/21/19 07/02/19 calcium carbonate [Calcium 600] 600 mg PO TID 03/21/19 07/02/19 cholecalciferol (vitamin D3) 5,000 unit PO DAILY 03/21/19 07/02/19 cyclobenzaprine 10 mg PO HS PRN 03/21/19 07/02/19 fluticasone propionate 2 puff INHALATION BID 03/21/19 07/02/19 furosemide 10 mg PO QAM PRN 03/21/19 07/02/19 lisinopril 2.5 mg PO DAILY 03/21/19 07/02/19 ondansetron 4 mg PO Q8H PRN 03/21/19 07/02/19 pantoprazole 40 mg PO DAILY 03/21/19 07/02/19 sucralfate [Carafate] 1 g PO ACHS 03/21/19 07/02/19 carvedilol 3.125 mg PO BID 07/02/19 07/02/19 Previous Rx's Medication Instructions Recorded docusate sodium 100 mg PO BID #60 cap 11/10/18 polyethylene glycol 3350 [Miralax] 17 g PO DAILY PRN #30 ea 11/10/18 Results & Data (ED) Vital Signs Vital Signs - 24 hr 07/02/19 15:53 07/02/19 16:39 07/02/19 16:57 Temperature 36.5 C Temperature Source Oral Pulse Rate 94 H Pulse Rate [Right Finger] 84 Pulse Rate from SpO2 Sensor Pulse Rhythm Regular Pulse Strength Normal Respiratory Rate 20 16 Respiratory Effort / Characteristics Non-Labored Spontaneous Respiratory Depth Normal Blood Pressure 154/76 H Blood Pressure Mean 102 Blood Pressure Position Sitting Pulse Oximetry 97 100 96 Oxygen Delivery Method Room Air Room Air Room Air Oxygen Flow Rate Sepsis Recent Fever Within 48 Hours No Sepsis New/Unexplained Change in Mental Status No Sepsis Action Taken by Nursing No Action Required Oxygen Flow Rate - Titration Pulse Oximetry Post Tiitration 07/02/19 18:10 07/02/19 18:30 07/02/19 19:01 Temperature Temperature Source Pulse Rate 97 H 86 107 H Pulse Rate [Right Finger] Pulse Rate from SpO2 Sensor 87 93 H Pulse Rhythm Pulse Strength Respiratory Rate 20 18 16 Respiratory Effort / Characteristics Respiratory Depth Blood Pressure 141/86 H 119/105 H Blood Pressure Mean 98 110 Blood Pressure Position Pulse Oximetry 100 97 Oxygen Delivery Method Oxygen Flow Rate Sepsis Recent Fever Within 48 Hours Sepsis New/Unexplained Change in Mental Status Sepsis Action Taken by Nursing Oxygen Flow Rate - Titration Pulse Oximetry Post Tiitration 07/02/19 19:17 07/02/19 19:30 07/02/19 20:00 Temperature Temperature Source Pulse Rate 88 Pulse Rate [Right Finger] Pulse Rate from SpO2 Sensor 88 83 86 Pulse Rhythm Pulse Strength Respiratory Rate 21 Respiratory Effort / Characteristics Respiratory Depth Blood Pressure 142/75 H 125/68 126/70 Blood Pressure Mean 107 81 94 Blood Pressure Position Pulse Oximetry 100 98 99 Oxygen Delivery Method Oxygen Flow Rate Sepsis Recent Fever Within 48 Hours Sepsis New/Unexplained Change in Mental Status Sepsis Action Taken by Nursing Oxygen Flow Rate - Titration Pulse Oximetry Post Tiitration 07/02/19 20:30 07/02/19 20:55 07/02/19 21:00 Temperature Temperature Source Pulse Rate 84 82 Pulse Rate [Right Finger] Pulse Rate from SpO2 Sensor 84 81 Pulse Rhythm Pulse Strength Respiratory Rate 23 14 Respiratory Effort / Characteristics Respiratory Depth Blood Pressure 127/67 133/70 Blood Pressure Mean 80 99 Blood Pressure Position Pulse Oximetry 100 86 L 99 Oxygen Delivery Method Room Air Nasal Cannula Oxygen Flow Rate 2 Sepsis Recent Fever Within 48 Hours Sepsis New/Unexplained Change in Mental Status Sepsis Action Taken by Nursing Oxygen Flow Rate - Titration 2 Pulse Oximetry Post Tiitration 98 Home Medications Current Medication List: was personally reviewed by me Laboratory Data Attestation: I reviewed the patient's lab results. Result diagrams: 07/02/19 16:48 07/02/19 16:48 Lab Results 07/02/19 07/02/19 07/02/19 Range/Units 16:48 16:48 16:48 WBC 12.67 H (4.8-10.8) K/uL RBC 4.29 (4.2-5.4) M/uL Hgb 12.3 (12.0-16.0) g/dL Hct 38.3 (37-47) % MCV 89.3 (80-100) fL MCH 28.7 (25-34) pg MCHC 32.1 (32-36) g/dL RDW Std Deviation 49.5 H (36.4-46.3) fL RDW Coeff of Shahrzad 15.7 H (11.5-14.5) % Plt Count 308 (130-400) K/uL MPV 9.5 (7.4-10.4) fL Immature Gran % (Auto) 0.4 % Neut % (Auto) 69.2 % Lymph % (Auto) 22.1 % Eaton % (Auto) 7.3 % Eos % (Auto) 0.8 % Baso % (Auto) 0.2 % Immature Gran # (Auto) 0.05 H (0.00-0.02) K/uL Neut # (Auto) 8.78 H (1.4-6.5) K/uL Lymph # (Auto) 2.80 (1.2-3.4) K/uL Eaton # (Auto) 0.92 H (0.11-0.59) K/uL Eos # (Auto) 0.10 (0-0.5) K/uL Baso # (Auto) 0.02 (0-0.2) K/uL PT 10.5 (9.0-12.0) Seconds INR 1.0 (0.9-1.1) APTT 23.7 (21.0-31.0) Seconds PTT Ratio 0.8 Sodium 137 (136-145) mmol/L Potassium 3.7 (3.5-5.1) mmol/L Chloride 104 (98-107) mmol/L Carbon Dioxide 31 (21-32) mmol/L Anion Gap 2.0 L (3-11) BUN 18 (7-18) mg/dl Creatinine 0.89 (0.6-1.2) mg/dl Est Cr Clr Drug Dosing Not Reportable Est GFR ( Amer) 76.6 Est GFR (Non-Af Amer) 66.1 BUN/Creatinine Ratio 20.5 H (10-20) Glucose 97 (70-99) mg/dl POC Glucose (70-99) mg/dl Calcium 9.3 (8.5-10.1) mg/dl Magnesium 1.9 (1.8-2.4) mg/dl Total Bilirubin 0.6 (0.2-1) mg/dl AST 17 (15-37) U/L ALT 39 (12-78) U/L Alkaline Phosphatase 72 (45-117) U/L Troponin I 0.082 H* (0-0.045) ng/ml Total Protein 7.4 (6.4-8.2) gm/dl Albumin 3.4 (3.4-5.0) gm/dl Globulin 4.0 (2.5-4.0) gm/dl Albumin/Globulin Ratio 0.9 (0.9-2) Lipase 108 (73-393) U/L 07/02/19 Range/Units 18:10 WBC (4.8-10.8) K/uL RBC (4.2-5.4) M/uL Hgb (12.0-16.0) g/dL Hct (37-47) % MCV (80-100) fL MCH (25-34) pg MCHC (32-36) g/dL RDW Std Deviation (36.4-46.3) fL RDW Coeff of Shahrzad (11.5-14.5) % Plt Count (130-400) K/uL MPV (7.4-10.4) fL Immature Gran % (Auto) % Neut % (Auto) % Lymph % (Auto) % Eaton % (Auto) % Eos % (Auto) % Baso % (Auto) % Immature Gran # (Auto) (0.00-0.02) K/uL Neut # (Auto) (1.4-6.5) K/uL Lymph # (Auto) (1.2-3.4) K/uL Eaton # (Auto) (0.11-0.59) K/uL Eos # (Auto) (0-0.5) K/uL Baso # (Auto) (0-0.2) K/uL PT (9.0-12.0) Seconds INR (0.9-1.1) APTT (21.0-31.0) Seconds PTT Ratio Sodium (136-145) mmol/L Potassium (3.5-5.1) mmol/L Chloride (98-107) mmol/L Carbon Dioxide (21-32) mmol/L Anion Gap (3-11) BUN (7-18) mg/dl Creatinine (0.6-1.2) mg/dl Est Cr Clr Drug Dosing Est GFR ( Amer) Est GFR (Non-Af Amer) BUN/Creatinine Ratio (10-20) Glucose (70-99) mg/dl POC Glucose 106 H (70-99) mg/dl Calcium (8.5-10.1) mg/dl Magnesium (1.8-2.4) mg/dl Total Bilirubin (0.2-1) mg/dl AST (15-37) U/L ALT (12-78) U/L Alkaline Phosphatase (45-117) U/L Troponin I (0-0.045) ng/ml Total Protein (6.4-8.2) gm/dl Albumin (3.4-5.0) gm/dl Globulin (2.5-4.0) gm/dl Albumin/Globulin Ratio (0.9-2) Lipase (73-393) U/L Administered Medications Discontinued Medications Albuterol (Duoneb) 3 ml NEB NOW STA Stop: 07/02/19 16:24 Last Admin: 07/02/19 16:57 Dose: 3 ml Documented by: [id number] Ioversol (Optiray 320 125ml) 118 ml IV ONCE PRN PRN Reason: Interaction Checking Stop: 07/06/19 18:44 Last Admin: 07/02/19 18:45 Dose: 1 ml Documented by: [id number] Morphine Sulfate (Morphine Sulfate) 4 mg IV NOW STA Stop: 07/02/19 16:23 Last Admin: 07/02/19 16:55 Dose: 4 mg Documented by: [id number] Ondansetron HCl (Zofran) 4 mg IV NOW STA Stop: 07/02/19 16:23 Last Admin: 07/02/19 16:55 Dose: 4 mg Documented by: [id number] Imaging Data Radiologist's Impression: SINGLE VIEW CHEST CLINICAL HISTORY: Atypical chest pain. FINDINGS: An AP, portable, upright chest radiograph is compared to chest x-ray and chest CT dated 11/16/2018. The heart is top normal for projection noting atherosclerotic calcification of the thoracic aorta. The pulmonary vasculature is noncongested. Emphysema and chronic interstitial thickening are similar to previous. There is bibasilar scarring/atelectasis. No airspace consolidation or large pleural effusion is identified. Numerous small pulmonary nodules seen by CT on 11/16/2018 are not apparent by x-ray. No pneumothorax is seen. The skeletal structures are osteopenic. There are numerous healed left-sided rib fractures. Degenerative change is noted in the thoracic spine and shoulders. IMPRESSION: Emphysematous change with no acute cardiopulmonary abnormality. ULTRASOUND RIGHT LOWER EXTREMITY VENOUS CLINICAL HISTORY: Right lower extremity swelling. COMPARISON STUDY: Right lower extremity venous ultrasound dated 11/17/2018. TECHNIQUE: Real-time, grayscale, and color Doppler sonography of the deep veins of the right lower extremity was performed from the inguinal crease to the calf. Compression and augmentation were utilized. FINDINGS: There is no sonographic evidence of deep venous thrombosis identified in the right lower extremity. The common femoral, superficial femoral, and popliteal veins are patent and normally compressible. The greater saphenous vein and the profunda femoris vein at the junction with the common femoral vein are clear. The visualized calf veins are patent. IMPRESSION: There is no sonographic evidence of deep venous thrombosis identified in the right lower extremity. ULTRASOUND RIGHT LOWER EXTREMITY ARTERIAL; ANKLE-BRACHIAL INDICES CLINICAL HISTORY: Right leg swelling. COMPARISON STUDY: Right lower extremity arterial ultrasound dated 03/21/2019. FINDINGS: Real-time, grayscale, and color Doppler sonography of the arteries of the right lower extremity is performed from the inguinal crease to the foot. Ankle brachial indices are assessed. FINDINGS: Ankle-brachial indices: Right brachial pressure measures 154. Pressures in the right posterior tibial artery measure 97 for an FABIANA of 0.63, and pressures in the right dorsalis pedis measure 73 for an FABIANA of 0.47. Pressures in the left posterior tibial artery measure 126 for an FABIANA of 0.82, and pressures in the left dorsalis pedis measure 86 for an FABIANA of 0.56. Right lower extremity: There is advanced atherosclerotic plaque identified throughout the arteries of the right lower extremity. A [id number] femorofemoral bypass graft is patent. The distal common femoral artery is patent with triphasic arterial waveforms. Velocities within the distal common femoral artery measure up to 59 cm/s. The profunda femoris artery is patent with velocities measuring up to 101 cm/s. There are biphasic to triphasic waveforms seen throughout the right superficial femoral artery. Velocities in the superficial femoral artery measure up to 167 cm/s. There are triphasic waveforms in the popliteal artery with velocities measuring up to 96 cm/s. The calf arteries are diminutive. There is three-vessel runoff to the foot. Velocities in the calf arteries measure up to 65 cm/s. The dorsalis pedis artery is patent with velocities measuring up to 63 cm/s. IMPRESSION: 1. A femorofemoral arterial bypass is patent. 2. The right lower extremity arteries are patent. There is no sonographic evidence of focal/high-grade stenosis. 3. The calf arteries are diminutive but appear patent. 4. Ankle brachial indices as above. CT ANGIOGRAM OF THE CHEST CLINICAL HISTORY: Atypical chest pain. Dyspnea. COMPARISON STUDY: Chest x-ray dated 07/02/2019. Chest CT dated 11/16/2018. TECHNIQUE: Following the IV administration of 120 cc of Optiray 320, CT angiogram of the chest was performed from the upper abdomen to the thoracic inlet utilizing the pulmonary embolus protocol. Images are reviewed in the axial, sagittal, and coronal planes. 3-D MIPS images are created and assessed. IV contrast was administered without complication. A dose lowering technique was utilized adhering to the principles of ALARA. CT DOSE: 606.12 mGy.cm FINDINGS: Thyroid: Imaged portions of the thyroid gland are normal in size and attenuation. Thoracic aorta: There is atherosclerotic calcification of the thoracic aorta, which is normal in caliber and demonstrates standard 3-vessel arch anatomy. No d issection is seen. There is moderate stenosis at the origin of the left subclavian artery. Pulmonary vasculature: The pulmonary trunk is normal in caliber. There are no filling defects identified in main, lobar, or segmental pulmonary branches to suggest pulmonary embolus. Heart: The heart is top normal in size and without pericardial effusion. The coronary arteries are densely calcified. Lungs and pleural spaces: Emphysematous change is noted. There is a 1.5 cm spiculated nodule in the subpleural right upper lobe seen on image #188. There are 4 mm right lower lobe pulmonary nodules seen on images #150 and #133. There are numerous additional 2 to 3 mm pulmonary nodules scattered throughout both lungs. Several of the nodules seen on 11/16/2018 have resolved. No airspace consolidation or pleural effusion is identified. There is mild diffuse intralobular septal thickening. The trachea and central airways are clear. There is mild diffuse peribronchial thickening. Mediastinum: There is no mediastinal lymphadenopathy. Allyson: Clear. Axillae: There is no axillary lymphadenopathy. Upper abdomen: Partially visualized upper abdominal viscera is within normal limits. Skeletal structures: The skeletal structures are osteopenic. Degenerative change is noted in the shoulders and thoracic spine. There are numerous healed left- sided rib fractures. No lytic or blastic bony lesions are seen. IMPRESSION: 1. There is no evidence of pulmonary embolus in the main, lobar, or segmental pulmonary arteries. 2. There is no airspace consolidation or pleural effusion. 3. Emphysema. 4. Diffuse intralobular septal thickening suggests congestive failure. Clinical correlation will be required. 5. There is a 15 mm spiculated nodule in the right upper lobe which has modestly increased in size as compared to 11/16/2018. Neoplasm is the diagnosis of exclusion and nonemergent thoracic surgical consultation is advised. 6. Additional subcentimeter pulmonary nodules as above. These have decreased in size and number as compared to 11/16/2018 and may be on an inflammatory basis. Continued attention at follow-up is advised. Blood Pressure Blood Pressure Findings: Elevated blood pressure Blood Pressure Disposition: Referred to patients primary care provider Discharge Plan Visit Data *Final* Discharge Date/Time: 07/02/19 21:50 Chief Complaint: Leg Injury/Pain Stated Complaint: LEG PAIN REF BY DR. JARA ED Provider: Mak Delgado Discharge Problem: Precordial chest pain, SOB (shortness of breath), Wheezing, Edema of right lower leg, Elevated troponin, Abnormal chest CT Patient Disposition: Admitted As Inpatient Condition: Good Discharge Instructions Interventions: ED Discharge Assessment Last Done: 07/02/19 21:50
[2019-07-02 16:57] LABS: Basophils # (auto) 0.02 K/uL (0-0.2); Basophils % (auto) 0.2 %; Eosinophils % (auto) 0.8 %; Hematocrit (blood only) 38.3 % (37-47); Hemoglobin 12.3 g/dL (12.0-16.0); Immature Granulocytes # (auto) 0.05 K/uL (0.00-0.02); Immature Granulocytes % (auto) 0.4 %; Lymphocytes % (auto) 22.1 %; Mean Corpuscular Hemoglobin 28.7 pg (25-34); Mean Corpuscular Hgb Conc 32.1 g/dL (32-36); Mean Corpuscular Volume 89.3 fL (80-100); Mean Platelet Volume 9.5 fL (7.4-10.4); Monocytes # (auto) 0.92 K/uL (0.11-0.59); Monocytes % (auto) 7.3 %; Neutrophils # (auto) 8.78 K/uL (1.4-6.5); Neutrophils % (auto) 69.2 %; Platelet Count 308 K/uL (130-400); RDW Coefficient of Variation 15.7 % (11.5-14.5); RDW Standard Deviation 49.5 fL (36.4-46.3); Red Blood Count 4.29 M/uL (4.2-5.4); White Blood Count 12.67 K/uL (4.8-10.8)
[2019-07-02 17:09] LABS: Partial Thromboplastin Ratio 0.8; Partial Thromboplastin Time 23.7 Seconds (21.0-31.0); Prothrombin Time 10.5 Seconds (9.0-12.0)
[2019-07-02 17:13] LABS: Alanine Aminotransferase 39 U/L (12-78); Albumin Level 3.4 gm/dl (3.4-5.0); Aspartate Aminotransferase 17 U/L (15-37); BUN Creatinine Ratio 20.5 (10-20); Blood Urea Nitrogen 18 mg/dl (7-18); Calcium 9.3 mg/dl (8.5-10.1); Carbon Dioxide 31 mmol/L (21-32); Chloride 104 mmol/L (98-107); Est GFR (African American) 76.6; Est GFR (Non-African American) 66.1; Glucose 97 mg/dl (70-99); Lipase 108 U/L (73-393); Magnesium 1.9 mg/dl (1.8-2.4); Potassium 3.7 mmol/L (3.5-5.1); Sodium 137 mmol/L (136-145)
--- NOTE | 2019-07-02 17:18 | XRay Report ---
SINGLE VIEW CHEST CLINICAL HISTORY: Atypical chest pain. FINDINGS: An AP, portable, upright chest radiograph is compared to chest x-ray and chest CT dated 11/16. The heart is top normal for projection noting atherosclerotic calcification of the thoracic ao rta. The pulmonary vasculature is noncongested. Emphysema and chronic interstitial thickening are sim ilar to previous. There is bibasilar scarring/atelectasis. No airspace consolidation or large pleural effusion is identified. Numerous small pulmonary nodules seen by CT on 11/16/2018 are not apparent by x-ray. No pneumothorax is seen. The skeletal structures are osteopenic. There are numerous healed lef t-sided rib fractures. Degenerative change is noted in the thoracic spine and shoulders. IMPRESSION: Emphysematous change with no acute cardiopulmonary abnormality. ACT 112: Negative or not required by law. Electronically signed by: Mak Skelton M.D. 07/02/2019 5:17 PM
[2019-07-02 17:29] LABS: Albumin Globulin Ratio 0.9 (0.9-2); Alkaline Phosphatase 72 U/L (45-117); Bilirubin,Total 0.6 mg/dl (0.2-1); Total Protein 7.4 gm/dl (6.4-8.2); Troponin I 0.082 ng/ml (0-0.045)
--- NOTE | 2019-07-02 18:22 | Ultrasound Report ---
ULTRASOUND RIGHT LOWER EXTREMITY VENOUS CLINICAL HISTORY: Right lower extremity swelling. COMPARISON STUDY: Right lower extremity venous ultrasound dated 11/17/2018. TECHNIQUE: Real-time, grayscale, and color Doppler sonography of the deep veins of the right lower ex tremity was performed from the inguinal crease to the calf. Compression and augmentation were utilize d. FINDINGS: There is no sonographic evidence of deep venous thrombosis identified in the right lower ex tremity. The common femoral, superficial femoral, and popliteal veins are patent and normally jeff sible. The greater saphenous vein and the profunda femoris vein at the junction with the common femor al vein are clear. The visualized calf veins are patent. IMPRESSION: There is no sonographic evidence of deep venous thrombosis identified in the right lower extremity. ACT 112: Negative or not required by law. Electronically signed by: Mak Skelton M.D. 07/02/2019 6:21 PM
[2019-07-02] MEDS ORDERED: OPTIRAY 320 125ml IV PRN (18:45)
--- NOTE | 2019-07-02 18:51 | Ultrasound Report ---
ULTRASOUND RIGHT LOWER EXTREMITY ARTERIAL; ANKLE-BRACHIAL INDICES CLINICAL HISTORY: Right leg swelling. COMPARISON STUDY: Right lower extremity arterial ultrasound dated 03/21/2019. FINDINGS: Real-time, grayscale, and color Doppler sonography of the arteries of the right lower extre mity is performed from the inguinal crease to the foot. Ankle brachial indices are assessed. FINDINGS: Ankle-brachial indices: Right brachial pressure measures 154. Pressures in the right posterior tibial artery measure 97 for an FABIANA of 0.63, and pressures in the right dorsalis pedis measure 73 for an AB I of 0.47. Pressures in the left posterior tibial artery measure 126 for an FABIANA of 0.82, and pressure s in the left dorsalis pedis measure 86 for an FABIANA of 0.56. Right lower extremity: There is advanced atherosclerotic plaque identified throughout the arteries of the right lower extremity. A [id number] femorofemoral bypass graft is patent. The distal common f emoral artery is patent with triphasic arterial waveforms. Velocities within the distal common femora l artery measure up to 59 cm/s. The profunda femoris artery is patent with velocities measuring up to 101 cm/s. There are biphasic to triphasic waveforms seen throughout the right superficial femoral ar marcus. Velocities in the superficial femoral artery measure up to 167 cm/s. There are triphasic wavefo coleen in the popliteal artery with velocities measuring up to 96 cm/s. The calf arteries are diminutive . There is three-vessel runoff to the foot. Velocities in the calf arteries measure up to 65 cm/s. Th e dorsalis pedis artery is patent with velocities measuring up to 63 cm/s. IMPRESSION: 1. A femorofemoral arterial bypass is patent. 2. The right lower extremity arteries are patent. There is no sonographic evidence of focal/high-grad e stenosis. 3. The calf arteries are diminutive but appear patent. 4. Ankle brachial indices as above. Dictated: 07/02/2019 6:21 PM Transcribed: 07/02/2019 6:49 PM Jovanna [id number] [email or web address] Electronically signed by: Mak Skelton M.D. 07/02/2019 6:50 PM
--- NOTE | 2019-07-02 19:24 | CT Scan Report ---
CT ANGIOGRAM OF THE CHEST CLINICAL HISTORY: Atypical chest pain. Dyspnea. COMPARISON STUDY: Chest x-ray dated 07/02/2019. Chest CT dated 11/16/2018. TECHNIQUE: Following the IV administration of 120 cc of Optiray 320, CT angiogram of the chest was pe rformed from the upper abdomen to the thoracic inlet utilizing the pulmonary embolus protocol. Images are reviewed in the axial, sagittal, and coronal planes. 3-D MIPS images are created and assessed. I V contrast was administered without complication. A dose lowering technique was utilized adhering to the principles of ALARA. CT DOSE: 606.12 mGy.cm FINDINGS: Thyroid: Imaged portions of the thyroid gland are normal in size and attenuation. Thoracic aorta: There is atherosclerotic calcification of the thoracic aorta, which is normal in kevin jarett and demonstrates standard 3-vessel arch anatomy. No dissection is seen. There is moderate stenosi s at the origin of the left subclavian artery. Pulmonary vasculature: The pulmonary trunk is normal in caliber. There are no filling defects identif ied in main, lobar, or segmental pulmonary branches to suggest pulmonary embolus. Heart: The heart is top normal in size and without pericardial effusion. The coronary arteries are de nsely calcified. Lungs and pleural spaces: Emphysematous change is noted. There is a 1.5 cm spiculated nodule in the s ubpleural right upper lobe seen on image #188. There are 4 mm right lower lobe pulmonary nodules seen on images #150 and #133. There are numerous additional 2 to 3 mm pulmonary nodules scattered through out both lungs. Several of the nodules seen on 11/16/2018 have resolved. No airspace consolidation or p leural effusion is identified. There is mild diffuse intralobular septal thickening. The trachea and central airways are clear. There is mild diffuse peribronchial thickening. Mediastinum: There is no mediastinal lymphadenopathy. Allyson: Clear. Axillae: There is no axillary lymphadenopathy. Upper abdomen: Partially visualized upper abdominal viscera is within normal limits. Skeletal structures: The skeletal structures are osteopenic. Degenerative change is noted in the shou lders and thoracic spine. There are numerous healed left-sided rib fractures. No lytic or blastic bon y lesions are seen. IMPRESSION: 1. There is no evidence of pulmonary embolus in the main, lobar, or segmental pulmonary arteries. 2. There is no airspace consolidation or pleural effusion. 3. Emphysema. 4. Diffuse intralobular septal thickening suggests congestive failure. Clinical correlation will be r equired. 5. There is a 15 mm spiculated nodule in the right upper lobe which has modestly increased in size as compared to 11/16/2018. Neoplasm is the diagnosis of exclusion and nonemergent thoracic surgical consu ltation is advised. 6. Additional subcentimeter pulmonary nodules as above. These have decreased in size and number as co mpared to 11/16/2018 and may be on an inflammatory basis. Continued attention at follow-up is advised. ACT 112: Negative or not required by law. Electronically signed by: Mak Skelton M.D. 07/02/2019 7:23 PM
[2019-07-02] MEDS ORDERED: CYCLOBENZAPRINE HCL 10 MG TAB PO PRN (22:03)
[2019-07-02] MEDS ORDERED: ACETAMINOPHEN 325 MG TAB PO PRN (22:03)
[2019-07-02] MEDS ORDERED: DICYCLOMINE HCL 10 MG CAP PO PRN (22:03)
[2019-07-02] MEDS ORDERED: FLUTICASONE PROPIONATE NA SPR 16 GM BTL PRN (22:03)
[2019-07-02] MEDS ORDERED: NITROGLYCERIN SL 0.4 MG/TAB TAB SL PRN (22:03)
[2019-07-02] MEDS ORDERED: POLYETHYLENE (MIRALAX) 17 GM PACK PO PRN (22:03)
[2019-07-02] MEDS ORDERED: ALBUTEROL HFA 8 GM INHALER INH PRN (22:03)
[2019-07-02] MEDS ORDERED: GLUCOSE 10 TABS/TUBE PO PRN (22:30)
[2019-07-02] MEDS ORDERED: GLUCAGON FOR INJ 1 MG VIAL IM PRN (22:30)
[2019-07-02] MEDS ORDERED: DEXTROSE 50% 50 ML SYRINGE IV PRN (22:30)
[2019-07-02] MEDS ORDERED: GLUCOSE 40% GEL 15 GM TUBE PO PRN (22:30)
[2019-07-02] MEDS: NICOTINE 21 MG/24 HR TDSY TD SCH (23:16)
[2019-07-02] MEDS: BusPIRone 15 MG TAB PO SCH (23:17)
[2019-07-02] MEDS: carvediloL 3.125 MG TAB PO SCH (23:17)
[2019-07-02] MEDS: TRAMADOL HCL 50 MG TABLET PO SCH (23:18)
[2019-07-02] MEDS: cefTRIAXone SODIUM 2,000 MG in DEXTROSE 5% 50 ML IV SCH (23:19)
--- NOTE | 2019-07-02 23:27 | History and Physical Report ---
DATE OF ADMISSION: 07/02/2019 CHIEF COMPLAINT: Severe pain in the right lower extremity, chest pain and shortness of breath. HISTORY OF PRESENT ILLNESS: This is a 68-year-old female with past medical history significant for thrombectomy and femoral-femoral bypass, patch angioplasty of distal anastomosis of the right femoral on 11/06/2018, CAD status post stent, history of stroke, hypertension, hyperlipidemia, diabetes, COPD, tobacco abuse, Pendleton's esophagitis, who lives alone, walks without any support, comes because of severe pain, right lower extremity for the last few days. Today she also noticed some chest pain and shortness of breath and having some cough with grayish whitish phlegm. Denies any fever, chills. After giving the nebs treatment in the ER, the chest pain almost resolved. She says had mild headache today and is getting better. She has felt dizzy today. She has chronic right ear pain, has some runny nose for the last couple of days. No sore throat, was nauseous and has some mild abdominal discomfort. She says she has some blackish stools today, she says she had history of stomach bleeds in the past. Having frequent urination and some burning sensation.Denies any rash. Currently, resting comfortably and hemodynamically stable. ALLERGIES: METHADONE, NICKEL, NITROGLYCERIN, PROPOXYPHENE, DICLOFENAC, HYDROCODONE, LEVAQUIN, MUSHROOMS, ONIONS, PENICILLINS, PINE NUT, ____, STRAWBERRY. PAST MEDICAL HISTORY: As mentioned above. PAST SURGICAL HISTORY: Colonoscopies with biopsies, EGDs with biopsy, cardiac stent placement, partial hysterectomy, cataract surgery, repair of the bladder neck, femoral-femoral bypass surgery, right carotid endarterectomy, right redo eversion of carotid endarterectomy, total tooth removal. MEDICATIONS: Currently the patient is on tramadol 50 mg every 6 hours p.r.n., Coreg 3.125 mg p.o. b.i.d., Lasix 20 mg p.r.n., albuterol 2 puffs 4 times a day p.r.n., Flovent HFA 2 puffs by mouth every 12 hours, Zofran 4 mg p.o. q. 8 hours p.r.n., glipizide 10 mg p.o. b.i.d., Actos 30 mg p.o. daily, buspirone 15 mg p.o. b.i.d., gabapentin 300 mg p.o. t.i.d., Plavix 75 mg p.o. daily, Protonix 40 mg p.o. daily, atorvastatin 40 mg p.o. daily, Bentyl 10 mg p.o. t.i.d. p.r.n., Colace 100 mg p.o. at bedtime, MiraLax 17 grams p.o. daily p.r.n., loratadine 10 mg p.o. daily, vitamin D 5000 units p.o. daily, Flonase 2 sprays in each nostril daily, aspirin 81 mg p.o. daily. FAMILY HISTORY: Significant for sister has throat cancer. Brother has diabetes. Sister also has diabetes. Brother has stroke. Maternal grandmother had diabetes. SOCIAL HISTORY: , lives alone. Smokes 1 pack a day for last 56 years. No alcohol use, no drug use. REVIEW OF SYMPTOMS: As per HPI. rest of the review of symptoms are negative. PHYSICAL EXAMINATION: GENERAL: The patient is of moderate build, not in acute distress. VITAL SIGNS: Temperature 36.5, pulse 84, respiratory rate 23, blood pressure 127/67, oxygen 100% room air. HEENT: Pupils equal, round, reactive to light. NECK: No neck masses. Supple. CARDIOVASCULAR: S1, S2 heard, regular rate and rhythm, no murmur, no gallop. RESPIRATORY SYSTEM: Normal AP diameter. No accessory muscle use. No wheezing, no crackles. ABDOMEN: Soft, bowel sounds present. Mild abdominal discomfort. No guarding. No rigidity. CENTRAL NERVOUS SYSTEM: Cranial nerves II-XII grossly intact, nonfocal. EXTREMITIES: Right lower extremity is slightly swollen and some mild erythema on the right foot which patient says is new. LABS: WBC 12.6, hemoglobin 12.3, hematocrit 38.3, platelets 308. PT 10.5, INR 1, APTT 23.7. Sodium 137, potassium 3.7, chloride 104, bicarbonate 31, BUN 18, creatinine 0.8, serum glucose 97, calcium 9.3, magnesium 1.9, total bilirubin 0.6, AST 17, ALT 39, alkaline phosphatase 72. Troponin 0.08, lipase 108. Chest x-ray: Emphysematous change, no cardiopulmonary abnormalities seen. Arterial duplex right lower extremity femoral arterial bypass is patent. Right lower extremity arteries are patent. There is no sonographic evidence of focal high grade stenosis, venous Doppler study, no evidence of DVT. IMAGING: CT of the chest, no evidence of pulmonary embolism in the main, lobar, or segmental pulmonary arteries. No airspace consolidation or pleural effusion, diffuse intralobular septal thickening suggesting congestive failure with a 15 mm spiculated nodule in the right upper lobe which has modestly increased in size compared to 11/2018, neoplasm is a diagnosis of exclusion. Additional subcentimeter pulmonary nodules found. EKG: Sinus rhythm with PACs at a rate of 84, no acute ST changes seen. ASSESSMENT AND PLAN: This is a 68-year-old female who presents with right lower extremity pain and also chest pain and shortness of breath and cough. 1. Right lower extremity pain: She has femoral-femoral bypass graft and that is patent on ultrasound, there is no DVT, but there is some mild erythematous change in the right foot which the patient says new and also some leukocytosis. We will treat her for cellulitis with IV Rocephin and doxycycline and monitor the response and pain control. 2. Chest pain: Initial troponin 0.08. EKG is unremarkable. We will follow the serial cardiac enzymes. If troponins trends up will start on IV heparin .Will follow echocardiogram.Consult cardiology in a.m., n.p.o. after midnight. 3. Shortness of breath and cough, history of chronic obstructive pulmonary disease, that is improved with nebs in the ER. Chest x-ray, no obvious infiltrate, but patient is getting antibiotic Rocephin and doxycycline. We will also give round the clock nebs and monitor the response. Recently had prednisone as outpatient. 4. History of coronary artery disease status post stent, on aspirin, Plavix, beta ragini and statin. 5. History of diabetes: Hold home p.o. medication, placed on insulin sliding scale, follow HbA1c levels, follow the blood sugars. 6. History of peripheral vascular disease, status post right femoral-femoral bypass surgery and also right carotid endarterectomy, on aspirin, Plavix and statin. 7. Lung nodules had increased in size to 15 mm. History of smoking: We will consult Pulmonary for further recommendation. Counselling for tobacco abuse.Nicotine patch. 8. Hypertension: Continue Coreg and lisinopril. Monitor blood pressure. 9. History of CVA: On aspirin, statin, Plavix. 10. History of Pendleton's esophagitis: On Protonix. 11. Anxiety: On buspirone. 12. There is question of black stools: We will check stool for Hemoccult. 14. Deep venous thrombosis prophylaxis: Heparin subQ now, if Hemoccult positive, will change to SCDs. DISPOSITION: Admit to med/surg tele. Level 1 full code. PT and OT prior to discharge. Social Service to help with discharge planning. NAKULD
[2019-07-02] MEDS: HEPARIN SOD 5,000 UNIT/0.5 ML VIAL SQ SCH (23:46)
[2019-07-03] MEDS: HYDROmorphone INJ 0.5 MG/0.5 ML SYR IV PRN (00:04)
[2019-07-03] MEDS: DOXYCYCLINE HYCLATE 100 MG in DEXTROSE 5% 100 ML IV SCH ×3 (00:06→23:59)
[2019-07-03] MEDS: INSULIN ASPART 100 UNITS/ML 3 ML PEN SC SCH ×5 (00:06→17:39)
[2019-07-03] MEDS: LEVALBUTEROL HCL 1.25 MG/3 ML NEB NEB SCH ×5 (00:14→19:58)
[2019-07-03 05:29] LABS: Basophils # (auto) 0.02 K/uL (0-0.2); Basophils % (auto) 0.3 %; Eosinophils # (auto) 0.12 K/uL (0-0.5); Eosinophils % (auto) 1.5 %; Hematocrit (blood only) 34.4 % (37-47); Immature Granulocytes # (auto) 0.03 K/uL (0.00-0.02); Immature Granulocytes % (auto) 0.4 %; Lymphocytes # (auto) 1.91 K/uL (1.2-3.4); Lymphocytes % (auto) 24.1 %; Mean Corpuscular Hemoglobin 29.2 pg (25-34); Mean Corpuscular Volume 91.2 fL (80-100); Mean Platelet Volume 9.6 fL (7.4-10.4); Monocytes % (auto) 7.6 %; Neutrophils # (auto) 5.25 K/uL (1.4-6.5); Neutrophils % (auto) 66.1 %; Platelet Count 302 K/uL (130-400); RDW Coefficient of Variation 15.6 % (11.5-14.5); RDW Standard Deviation 50.7 fL (36.4-46.3); Red Blood Count 3.77 M/uL (4.2-5.4); White Blood Count 7.93 K/uL (4.8-10.8)
[2019-07-03 06:03] LABS: BUN Creatinine Ratio 20.7 (10-20); Calcium 8.5 mg/dl (8.5-10.1); Creatinine Clr Calc Pharmacy 53.8 ml/min; Est GFR (African American) 67.4; Est GFR (Non-African American) 58.1; Potassium 4.3 mmol/L (3.5-5.1)
[2019-07-03] MEDS: HEPARIN SOD 5,000 UNIT/0.5 ML VIAL SQ SCH ×3 (06:05→22:13)
[2019-07-03] MEDS: TRAMADOL HCL 50 MG TABLET PO SCH ×4 (06:05→22:12)
[2019-07-03] MEDS: ONDANSETRON INJ 2 MG/ML 2 ML VIAL IV PRN (06:10)
[2019-07-03 06:16] LABS: Estimated Average Glucose 148 mg/dl; Hemoglobin A1C 6.8 % (4.5-5.6)
[2019-07-03] MEDS: SUCRALFATE 1 GM TAB PO SCH ×4 (06:30→20:30)
[2019-07-03] MEDS: BusPIRone 15 MG TAB PO SCH ×2 (08:00→20:29)
[2019-07-03] MEDS: DOCUSATE SODIUM 100 MG CAP PO SCH ×2 (08:00→20:28)
[2019-07-03] MEDS: PANTOprazole 40 MG TAB PO SCH (08:01)
[2019-07-03] MEDS: CALCIUM 600MG + VIT D 400 IU TAB PO SCH ×3 (08:01→20:28)
[2019-07-03] MEDS: LORATADINE 10 MG TAB PO SCH (08:01)
[2019-07-03] MEDS: ASPIRIN 81 MG ECTAB PO SCH (08:01)
[2019-07-03] MEDS: CHOLECALCIFEROL 1,000 UNITS 25 MCG TAB PO SCH (08:01)
[2019-07-03] MEDS: CLOPIDOGREL BISULFATE 75 MG TAB PO SCH (08:01)
[2019-07-03] MEDS: carvediloL 3.125 MG TAB PO SCH ×2 (08:02→20:29)
[2019-07-03] MEDS: FUROSEMIDE 20 MG TAB PO PRN (08:02)
[2019-07-03] MEDS: GABAPENTIN 300 MG CAP PO SCH ×3 (08:02→20:29)
[2019-07-03] MEDS: NICOTINE 21 MG/24 HR TDSY TD SCH (08:04)
[2019-07-03] MEDS ORDERED: FLUTICASONE FUROATE 200MCG 14 PUFFS/INHALER INH SCH (09:00)
[2019-07-03] MEDS ORDERED: NON-FORMULARY MEDICATION (Omeprazole 40 MG) PO SCH (09:00)
--- NOTE | 2019-07-03 11:47 | Electrocardiogram Report ---
Test Reason : Blood Pressure : / mmHG Vent. Rate : 084 BPM Atrial Rate : 084 BPM P-R Int : 134 ms QRS Dur : 078 ms QT Int : 376 ms P-R-T Axes : 075 065 031 degrees QTc Int : 444 ms Sinus rhythm with Premature atrial complexes Otherwise normal ECG When compared with ECG of 21-MAR-2019 18:05, Premature atrial complexes are now Present Nonspecific T wave abnormality no longer evident in Anterior leads Confirmed by Edwin Kitchen ([id number]) on 07/03/2019 11:46:54 AM Referred By: REFERRED SELF Confirmed By:Chiki Kitchen
--- NOTE | 2019-07-03 11:54 | Electrocardiogram Report ---
Test Reason : Blood Pressure : / mmHG Vent. Rate : 078 BPM Atrial Rate : 078 BPM P-R Int : 152 ms QRS Dur : 082 ms QT Int : 378 ms P-R-T Axes : 050 092 039 degrees QTc Int : 430 ms Poor data quality, interpretation may be adversely affected likely sinus rhythm with pac Rightward axis Borderline ECG Confirmed by Ewdin Kitchen ([id number]) on 07/03/2019 11:54:06 AM Referred By: REFERRED SELF Confirmed By:Chiki Kitchen
--- NOTE | 2019-07-03 12:11 | Cardiology Consultation ---
Date of Consultation July 03, 2019 Assessment & Plan (1) Precordial chest pain: (2) Elevated troponin: Patient with known chronic coronary heart disease, describes chest pain, concerning for angina that occurred in the setting of significant right lower extremity discomfort. Right lower leg erythema and swelling has resolved significantly per patient with administration of antibiotics. She notes chest discomfort is improved. She does have a mild elevation in her troponin with levels of 0.082, 0.074, 0.064, and 0.598 NG per mL. An echocardiogram has been performed which will be reviewed. At this time, I do not plan any emergent procedure, and we will advance her diet. I discussed with her the findings of mildly elevated troponin, and discussed approaches such as observation and medical therapy, versus consideration of cardiac catheterization. Patient was hesitant regarding cardiac catheterization describing a past complication that she had with the procedure at another institution. Continue her prior to hospital treatment with aspirin, clopidogrel, carvedilol and atorvastatin. (3) Edema of right lower leg: Lower extremity arterial duplex reassuring. If patient has recurrent symptoms especially with ambulating, I would have low threshold for consulting vascular surgery, who knows her well. Agree with subcutaneous heparin for DVT prophylaxis. History of Present Illness Attending Physician: Zita Nino MD History of Present Illness Carlotta Khan is a 68 year old female seen in cardiology consultation per the request of Dr Hernandez for the evaluation of chest pain. The patient's primary house registry rn is Dr Chapa of our practice with whom she established care as an outpatient on 02/15/19. She follows with Dr Jara for her her history of PAD. The patient resides in [place], [place]. She was admitted overnight last night with complaints of progressive right lower extremity swelling and pain. She states that the pain was severe, and yesterday she started having associated chest discomfort. She was treated with IV antibiotics, and she states that the swelling below her right knee is significantly improved as is her pain. She notes her chest discomfort has resolved. Prior to February 2019 she had received her cardiac care at [facility] , and details regarding her past coronary anatomy are not available. She has a history of severe atherosclerotic vascular disease and multiple vascular beds including peripheral arterial disease with femoral-popliteal bypass surgery, previous carotid endarterectomy, stroke, and remote myocardial infarction with coronary stent placement apparently in the . In October,, she presented with pain due to ischemia of her right lower leg and underwent thrombectomy, femoral-femoral bypass, and patch angioplasty of the distal anastomosis performed by Dr Jara. A lower extremity arterial duplex performed 07/02/2019 revealed patent femoral-femoral arterial bypass, without evidence of high-grade focal arterial stenosis of the right lower extremity. Her FABIANA measurements were abnormal. A lower extremity venous duplex was negative for DVT. Allergies Allergy/AdvReac Type Severity Reaction Status Date / Time methadone Allergy Severe "couldn't Verified 03/21/19 18:20 swallow/eyes coming out of head" nickel Allergy Severe swelling Verified 03/21/19 18:20 and infections nitroglycerin Allergy Intermediate DECREASED Verified 03/21/19 18:20 BP propoxyphene Allergy Intermediate edema to Verified 03/21/19 18:20 face/lips/tongue diclofenac Allergy Mild Rash Verified 03/21/19 18:20 hydrocodone Allergy Mild "severe Verified 03/21/19 18:20 constipation" levofloxacin [From Levaquin] Allergy Mild nausea/vomi Verified 03/21/19 18:20 ting mushroom Allergy Mild nausea/abd Verified 03/21/19 18:20 pain onion Allergy Mild nausea/vomi Verified 03/21/19 18:20 ting Penicillins Allergy Mild severe Verified 03/21/19 18:20 diarrhea/rash pine nut Allergy Mild Rash Verified 03/21/19 18:20 sitagliptin [From Januvia] Allergy Mild rash Verified 03/21/19 18:20 "blood blisters" strawberry Allergy Mild Diarrhea Verified 03/21/19 18:20 Home Medications Home Medications Medication Instructions Recorded Confirmed Type aspirin 81 mg PO QAM 11/06/18 07/02/19 History atorvastatin 40 mg PO QPM 11/06/18 07/02/19 History buspirone 15 mg PO BID 11/06/18 07/02/19 History clopidogrel 75 mg PO QAM 11/06/18 07/02/19 History fluticasone propionate 1 spray INTRANASAL DAILY PRN 11/06/18 07/02/19 History glipizide 10 mg PO BID 11/06/18 07/02/19 History loratadine 10 mg PO QAM 11/06/18 07/02/19 History omeprazole 40 mg PO BID 11/06/18 07/02/19 History pioglitazone 30 mg PO QAM 11/06/18 07/02/19 History docusate sodium 100 mg PO BID #60 cap 11/10/18 07/02/19 Rx polyethylene glycol 3350 [Miralax] 17 g PO DAILY PRN #30 ea 11/10/18 07/02/19 Rx albuterol sulfate [Ventolin HFA] 2 puff INHALATION Q4 PRN 11/16/18 07/02/19 History dicyclomine 10 mg PO TID PRN 01/11/19 07/02/19 History gabapentin 300 mg PO TID 01/11/19 07/02/19 History tramadol 50 mg PO Q6H 01/11/19 07/02/19 History acetaminophen 650 mg PO QID PRN 03/21/19 07/02/19 History calcium carbonate [Calcium 600] 600 mg PO TID 03/21/19 07/02/19 History cholecalciferol (vitamin D3) 5,000 unit PO DAILY 03/21/19 07/02/19 History cyclobenzaprine 10 mg PO HS PRN 03/21/19 07/02/19 History fluticasone propionate 2 puff INHALATION BID 03/21/19 07/02/19 History furosemide 10 mg PO QAM PRN 03/21/19 07/02/19 History lisinopril 2.5 mg PO DAILY 03/21/19 07/02/19 History ondansetron 4 mg PO Q8H PRN 03/21/19 07/02/19 History pantoprazole 40 mg PO DAILY 03/21/19 07/02/19 History sucralfate [Carafate] 1 g PO ACHS 03/21/19 07/02/19 History carvedilol 3.125 mg PO BID 07/02/19 07/02/19 History Patient History Medical History Anemia Anxiety (Chronic) [place] esophagus (Chronic) COPD (chronic obstructive pulmonary disease) (Chronic) inhaler prn Coronary artery disease, occlusive Critical limb ischemia with history of revascularization of same extremity (Resolved) RLE CVA (cerebral vascular accident) (Chronic) 2008--slight left side weakness (no assistive devices)--follows with Dr. Astudillo Diabetes mellitus, type II (Chronic) GI bleed Glaucoma bilt eyes HTN (hypertension) (Chronic) Hyperlipidemia (Chronic) Myocardial infarction (Resolved) x2 --currently does not have a house registry rn On anticoagulant therapy plavix daily Osteoarthritis PVD (peripheral vascular disease) (Chronic) Surgical History H/O: hysterectomy (Chronic) History of appendectomy History of bilateral cataract extraction History of bilateral tubal ligation History of bronchoscopy History of cardiac cath x2 both @ [facility]--2000 with 1 stent/2003--no stent, instead fem-pop bypass History of carotid endarterectomy (Chronic) 2009 on right side History of colonoscopy with polypectomy History of dilatation and curettage x3 History of endoscopic sinus surgery History of esophagogastroduodenoscopy (EGD) History of heart artery stent x1 before 2000? @ [facility] History of repair of right rotator cuff x2 History of tooth extraction most teeth Status post femoral-popliteal bypass surgery (Chronic) 2004 Status post femoropopliteal bypass surgery 11/06/[address] Jara---thrombectomy/Femoral-femoral bypass Family History Sister Family history of diabetes mellitus Family history of esophageal cancer Family hx of colon cancer Sister Family history of diabetes mellitus Sister Family history of diabetes mellitus Sister Family history of diabetes mellitus Sister Family history of diabetes mellitus Sister Family history of diabetes mellitus Sister Family history of diabetes mellitus Brother Family history of diabetes mellitus Brother Family history of diabetes mellitus Brother Family history of diabetes mellitus Other Diabetes No family history of adverse response to anesthesia Stroke Social History Preferred Language: Burkinan Communication Ability: Effective 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 Beliefs That Will Affect Care: None Current Living Situation: Alone Current Living Situation Comment: Lives with daughter Other Information That Helps Us Care for You: No Feels Safe at Home: Yes Safety Concerns: Feels Safe At This Time Smoking Status: Current every day smoker Tobacco Type: cigarettes ; Cigarettes Per Day: 1-2ppd ; Second Hand Exposure: No ; Hx Alcohol Use: No Hx Substance Use: No Review of Systems Review of Systems: All systems reviewed & are unremarkable except as noted in HPI & below Physical Exam Physical Exam: Temp Pulse Resp BP Pulse Ox 36.7 C 70 18 92/60 L 91 07/03/19 11:07 07/03/19 11:07 07/03/19 11:07 07/03/19 11:07 07/03/19 11:07 Constitutional: WD/WN, vitals as above Respiratory: normal respiratory effort, lungs clear to auscultation Cardiovascular: RRR, no murmur, no edema Gastrointestinal (Abdomen): normal bowel sounds, soft, nontender, no hepatosplenomegaly Neurologic: PERRL, EOMI, accommodation nl, no face palsy, no dysarthria Results & Data ([facility]) Vital Signs (Past 12 Hours) Vital Signs Temp Pulse Pulse Resp BP Pulse Ox 07/03/19 11:07 36.7 C 70 18 92/60 L 91 07/03/19 08:00 85 07/03/19 07:38 36.8 C 94 H 18 109/68 92 07/03/19 07:10 95 H 18 99 07/03/19 02:27 36.6 C 85 20 112/70 90 Laboratory Results Cardiac Enzymes 07/02/19 07/02/19 07/03/19 Range/Units 16:48 23:21 05:18 AST 17 (15-37) U/L Troponin I 0.082 H* 0.074 H* 0.064 H* (0-0.045) ng/ml 07/03/19 Range/Units 11:12 AST (15-37) U/L Troponin I 0.598 H* (0-0.045) ng/ml Coagulation 07/02/19 Range/Units 16:48 PT 10.5 (9.0-12.0) Seconds APTT 23.7 (21.0-31.0) Seconds CBC 07/02/19 07/03/19 Range/Units 16:48 05:18 WBC 12.67 H 7.93 (4.8-10.8) K/uL RBC 4.29 3.77 L (4.2-5.4) M/uL Hgb 12.3 11.0 L (12.0-16.0) g/dL Hct 38.3 34.4 L (37-47) % Plt Count 308 302 (130-400) K/uL Neut # (Auto) 8.78 H 5.25 (1.4-6.5) K/uL Lymph # (Auto) 2.80 1.91 (1.2-3.4) K/uL [place] # (Auto) 0.92 H 0.60 H (0.11-0.59) K/uL Eos # (Auto) 0.10 0.12 (0-0.5) K/uL Baso # (Auto) 0.02 0.02 (0-0.2) K/uL Comprehensive Metabolic Panel 07/02/19 07/03/19 Range/Units 16:48 05:18 Sodium 137 138 (136-145) mmol/L Potassium 3.7 4.3 D (3.5-5.1) mmol/L Chloride 104 104 (98-107) mmol/L Carbon Dioxide 31 32 (21-32) mmol/L BUN 18 20 H (7-18) mg/dl Creatinine 0.89 0.99 (0.6-1.2) mg/dl Glucose 97 91 (70-99) mg/dl Calcium 9.3 8.5 (8.5-10.1) mg/dl AST 17 (15-37) U/L ALT 39 (12-78) U/L Alkaline Phosphatase 72 (45-117) U/L Total Protein 7.4 (6.4-8.2) gm/dl Albumin 3.4 (3.4-5.0) gm/dl Intake and Output 07/02/19 07/03/19 07/03/19 22:59 06:59 14:59 Intake Total 180 / 180 Balance 180 / 180 Intake: IV 180 / 180 Vibramycin 100 mg In D5 100 ml 110 / 110 @ 50 mls/hr IV Q12H [facility] Rx#: [id number] Rocephin 2,000 mg In D5w 50 ml 70 / 70 @ 100 mls/hr IV Q24H FABIAN Rx#: [id number] Other: Other Intake Source NPO Weight 83.7 kg 84.8 kg Diagnostic Findings EKG performed 07/02/2019 at 1639 reviewed independently: Sinus rhythm at 84 bpm with occasional PACs, no significant ST depression or elevation. Repeat tracing performed 07/03/2019 at 7:19 AM, poor quality tracing, likely sinus rhythm with artifact, without significant repolarization changes Per radiology report, CT angiogram of the chest revealed moderate left subclavian artery stenosis No pulmonary embolism within the main pulmonary vasculature Emphysema Right upper lung pulmonary nodule, slightly more prominent than the prior CT Medications Administered Current Inpatient Medications Acetaminophen (Tylenol) 650 mg PO Q4H PRN PRN Reason: Pain or Fever Stop: 08/01/19 22:02 Albuterol (Ventolin Hfa) 2 puffs INH Q4 PRN; Protocol PRN Reason: Shortness Of Breath Stop: 08/01/19 22:02 Aspirin (Ecotrin Ectab) 81 mg PO QAM F[facility]IAN Stop: 08/02/19 08:59 Last Admin: 07/03/19 08:01 Dose: 81 mg Documented by: Atorvastatin Calcium (Lipitor) 40 mg PO QPM [facility]ABIAN Stop: 08/02/19 20:59 Buspirone HCl (Buspar) 15 mg PO BID [facility] Stop: 08/01/19 22:02 Last Admin: 07/03/19 08:00 Dose: 15 mg Documented by: Carvedilol (Coreg) 3.125 mg PO BID FABIAN Stop: 08/01/19 22:02 Last Admin: 07/03/19 08:02 Dose: 3.125 mg Documented by: Clopidogrel Bisulfate (Plavix) 75 mg PO QAM [facility] Stop: 08/02/19 08:59 Last Admin: 07/03/19 08:01 Dose: 75 mg Documented by: Cyclobenzaprine HCl (Flexeril) 10 mg PO HS PRN PRN Reason: Spasms Stop: 08/01/19 22:02 Dextrose (Dextrose 50%) 25 - 50 ml IV UD PRN; Protocol PRN Reason: Hypoglycemia Protocol Stop: 08/01/19 22:29 Dicyclomine HCl (Bentyl) 10 mg PO TID PRN PRN Reason: Abdominal Pain Stop: 08/01/19 22:02 Docusate Sodium (Colace) 100 mg PO BID [facility] Stop: 08/02/19 08:59 Last Admin: 07/03/19 08:00 Dose: 100 mg Documented by: Fluticasone Furoate (Arnuity Ellipta 200mcg) 1 puffs INH DAILY [facility] Stop: 08/02/19 08:59 Last Admin: 07/03/19 08:04 Dose: 1 puffs Documented by: Fluticasone Propionate (Flonase) 1 sprays NA DAILY PRN PRN Reason: Nasal Congestion Stop: 08/01/19 22:02 Furosemide (Lasix) 10 mg PO QAM PRN PRN Reason: Dyspnea Stop: 08/01/19 22:02 Last Admin: 07/03/19 08:02 Dose: 10 mg Documented by: Gabapentin (Neurontin) 300 mg PO TID [facility]IAN Stop: 08/02/19 08:59 Last Admin: 07/03/19 08:02 Dose: 300 mg Documented by: Glucagon (Glucagen) 1 mg IM UD PRN; Protocol PRN Reason: Hypoglycemia Protocol Stop: 08/01/19 22:29 Glucose (Glucose 40%) 15 - 30 gm PO UD PRN; Protocol PRN Reason: Hypoglycemia Protocol Stop: 08/01/19 22:29 Glucose (Dex4 Glucose) 4 - 8 tabs PO UD PRN; Protocol PRN Reason: Hypoglycemia Protocol Stop: 08/01/19 22:29 Heparin Sodium (Porcine) (Heparin Sodium (Porcine)) 5,000 units SQ Q8H [facility] Stop: 08/01/19 22:59 Last Admin: 07/03/19 06:05 Dose: 5,000 units Documented by: Hydromorphone HCl (Dilaudid) 0.5 mg IV Q4H PRN PRN Reason: Pain Stop: 07/16/19 23:46 Last Admin: 07/03/19 00:04 Dose: 0.5 mg Documented by: Ceftriaxone Sodium 2,000 mg/ (Dextrose) 70 mls @ 100 mls/hr IV Q24H FABIAN; Protocol Stop: 07/09/19 22:59 Last Infusion: 07/03/19 00:27 Dose: Infused Documented by: Doxycycline Hyclate 100 mg/ (Dextrose) 110 mls @ 50 mls/hr IV Q12H FABIAN; Protocol Stop: 07/10/19 00:00 Last Admin: 07/03/19 11:32 Dose: 50 mls/hr Documented by: Insulin Aspart (Novolog Flexpen) 0 units SC Q6 [facility] Stop: 08/02/19 00:00 Last Admin: 07/03/19 12:08 Dose: Not Given Documented by: Levalbuterol HCl (Xopenex 1.25mg/3ml Neb) 1.25 mg NEB Q6R [facility] Stop: 08/01/19 22:02 Last Admin: 07/03/19 07:10 Dose: 1.25 mg Documented by: Lisinopril (Zestril) 2.5 mg PO DAILY [facility] Stop: 08/02/19 08:59 Last Admin: 07/03/19 08:01 Dose: 2.5 mg Documented by: Loratadine (Claritin) 10 mg PO QAM [facility] Stop: 08/02/19 08:59 Last Admin: 07/03/19 08:01 Dose: 10 mg Documented by: Miscellaneous (Remove Nicoderm Patch) 1 ea N/A DAILY@0859 [facility] Stop: 08/02/19 08:58 Last Admin: 07/03/19 08:04 Dose: Not Given Documented by: Miscellaneous (Carbohydrates For Hypoglycemia) 15 - 30 gm PO UD PRN PRN Reason: Hypoglycemia Treatment Stop: 08/01/19 22:29 Multivitamins/Minerals (Caltrate Plus) 1 tab PO TID [facility] Stop: 08/02/19 08:59 Last Admin: 07/03/19 08:01 Dose: 1 tab Documented by: Nicotine (Nicoderm Cq) 21 mg TD DAILY [facility] Stop: 08/01/19 22:02 Last Admin: 07/03/19 08:04 Dose: Not Given Documented by: Nitroglycerin (Nitrostat) 0.4 mg SL UD PRN PRN Reason: Chest Pain Stop: 08/01/19 22:02 Ondansetron HCl (Zofran) 4 mg IV Q6H PRN PRN Reason: Nausea Stop: 08/01/19 22:02 Last Admin: 07/03/19 06:10 Dose: 4 mg Documented by: Pantoprazole Sodium (Protonix) 40 mg PO DAILY [facility] Stop: 08/02/19 08:59 Last Admin: 07/03/19 08:01 Dose: 40 mg Documented by: Polyethylene Glycol (Miralax Powder Packet) 17 gm PO DAILY PRN PRN Reason: Constipation Stop: 08/01/19 22:02 Sucralfate (Carafate Tab) 1 gm PO ACHS [facility] Stop: 08/02/19 07:29 Last Admin: 07/03/19 11:24 Dose: 1 gm Documented by: Tramadol HCl (Ultram) 50 mg PO Q6H [facility] Stop: 08/01/19 22:59 Last Admin: 07/03/19 11:24 Dose: 50 mg Documented by: Vitamin D (Vitamin D3) 5,000 units PO DAILY [facility] Stop: 05/21/20 08:59 Last Admin: 07/03/19 08:01 Dose: 5,000 units Documented by:
--- NOTE | 2019-07-03 13:25 | Pulmonary Consultation ---
Date of Consultation July 03, 2019 Assessment & Plan (1) Right upper lobe pulmonary nodule: The right upper lobe pulmonary nodule appears to be enlarging in size from November and based on both the Sean model and Gallardo model for lung nodules, the right upper lobe nodule has characteristics consistent with a likely malignancy. I think that certainly an outpatient PET/CT scan is warranted in this case to evaluate for any distant metastasis. It seems that she is likely a poor candidate for surgical intervention given her underlying coronary artery disease, peripheral artery disease and possible underlying hypercapnia. She will need outpatient pulmonary function tests to evaluate her candidacy for future interventions such as a sublobar resection/lobectomy. I think, realistically, she is likely a better candidate for SBRT to the right upper lobe lung nodule. I will bring uppercase in our thoracic oncology conference. She indicated that she would prefer to be seen by [facility] regarding follow-up and we can help facilitate this follow-up. With regards to her presumptive COPD, again, we need to obtain any possible prior PFT records and/or obtain updated pulmonary function test. I recommend that we switch her from Arnuity Ellipta to a long-acting beta agonist/long- acting muscarinic antagonist combination inhaler. Recommend weight loss as well. Recommend morning ABG to evaluate for the possibility of hypercapnia. She has an elevated serum bicarbonate 32 and is obese. She is at risk for OHS/JACOBY. Ideally should undergo a sleep study as an outpatient, but this may be limited given her current COVID pandemic. An echo would also be beneficial to further risk stratify her and to evaluate for the possibility of diastolic heart failure. Pulmonary will follow from the periphery. We are available if needed. I will certainly follow-up with her as an outpatient. (2) SOB (shortness of breath): (3) Wheezing: (4) Abnormal chest CT: (5) CAD (coronary artery disease): (6) Emphysema lung: (7) Obesity (BMI 30.0-34.9): History of Present Illness Reason for Consultation: Enlarging right upper lobe nodule. Requesting Physician: Hospitalist Attending Physician: Zita Nino MD History of Present Illness 68-year-old female with a past medical history of coronary artery disease, peripheral artery disease with history of femoropopliteal bypass and is currently on Plavix, carotid endarterectomy, stroke and presumptive COPD who presented to the hospital on 07/02/2019 due to shortness of breath and pain in her right lower extremity. She underwent a thrombectomy and a patch angioplasty of the distal anastomosis by Dr. Jara in October 2018. She was admitted yesterday due to swelling and pain of the lower extremity. She also had some shortness of breath and chest discomfort with a mild troponin leak. She was started on IV antibiotics and notes that the swelling has decreased substantially in her right leg. She denies any history of redness in that right leg. She notes that she likely gained approximately 20 pounds over the last week or 2. She also describes a persistent cough that she has had for many years. She is a heavy smoker and has smoked upwards of 4 packs a day. She not es that she started smoking at the age of 9. Recently she has been smoking approximately 1 pack/day. Pulmonary is consulted due to an enlarging right upper lobe peripheral based spiculated lung nodule that is measuring at 1.5 cm. She had a CTA of her chest to evaluate for dissection in November 2018 which demonstrated numerous right upper lobe nodules and a 10 mm subpleural and spiculated right upper lobe nodule that now appears to have enlarged. She denies any B symptoms including night sweats, fevers or chills. 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 She notes that she was supposed to undergo a PET/CT scan to evaluate for metastatic disease, but she describes that she did not know about the PET/CT until after the date that it was scheduled for. Lastly, she notes that she was started on prednisone approximately 2 days ago by her primary care physician for shortness of breath and she attributes the swelling in her legs related to the prednisone. She is currently on ceftriaxone and doxycycline. Allergies Allergy/AdvReac Type Severity Reaction Status Date / Time methadone Allergy Severe "couldn't Verified 03/21/19 18:20 swallow/eyes coming out of head" nickel Allergy Severe swelling Verified 03/21/19 18:20 and infections nitroglycerin Allergy Intermediate DECREASED Verified 03/21/19 18:20 BP propoxyphene Allergy Intermediate edema to Verified 03/21/19 18:20 face/lips/tongue diclofenac Allergy Mild Rash Verified 03/21/19 18:20 hydrocodone Allergy Mild "severe Verified 03/21/19 18:20 constipation" levofloxacin [From Levaquin] Allergy Mild nausea/vomi Verified 03/21/19 18:20 ting mushroom Allergy Mild nausea/abd Verified 03/21/19 18:20 pain onion Allergy Mild nausea/vomi Verified 03/21/19 18:20 ting Penicillins Allergy Mild severe Verified 03/21/19 18:20 diarrhea/rash pine nut Allergy Mild Rash Verified 03/21/19 18:20 sitagliptin [From Januvia] Allergy Mild rash Verified 03/21/19 18:20 "blood blisters" strawberry Allergy Mild Diarrhea Verified 03/21/19 18:20 Home Medications Home Medications Medication Instructions Recorded Confirmed Type aspirin 81 mg PO QAM 11/06/18 07/02/19 History atorvastatin 40 mg PO QPM 11/06/18 07/02/19 History buspirone 15 mg PO BID 11/06/18 07/02/19 History clopidogrel 75 mg PO QAM 11/06/18 07/02/19 History fluticasone propionate 1 spray INTRANASAL DAILY PRN 11/06/18 07/02/19 History glipizide 10 mg PO BID 11/06/18 07/02/19 History loratadine 10 mg PO QAM 11/06/18 07/02/19 History omeprazole 40 mg PO BID 11/06/18 07/02/19 History pioglitazone 30 mg PO QAM 11/06/18 07/02/19 History docusate sodium 100 mg PO BID #60 cap 11/10/18 07/02/19 Rx polyethylene glycol 3350 [Miralax] 17 g PO DAILY PRN #30 ea 11/10/18 07/02/19 Rx albuterol sulfate [Ventolin HFA] 2 puff INHALATION Q4 PRN 11/16/18 07/02/19 History dicyclomine 10 mg PO TID PRN 01/11/19 07/02/19 History gabapentin 300 mg PO TID 01/11/19 07/02/19 History tramadol 50 mg PO Q6H 01/11/19 07/02/19 History acetaminophen 650 mg PO QID PRN 03/21/19 07/02/19 History calcium carbonate [Calcium 600] 600 mg PO TID 03/21/19 07/02/19 History cholecalciferol (vitamin D3) 5,000 unit PO DAILY 03/21/19 07/02/19 History cyclobenzaprine 10 mg PO HS PRN 03/21/19 07/02/19 History fluticasone propionate 2 puff INHALATION BID 03/21/19 07/02/19 History furosemide 10 mg PO QAM PRN 03/21/19 07/02/19 History lisinopril 2.5 mg PO DAILY 03/21/19 07/02/19 History ondansetron 4 mg PO Q8H PRN 03/21/19 07/02/19 History pantoprazole 40 mg PO DAILY 03/21/19 07/02/19 History sucralfate [Carafate] 1 g PO ACHS 03/21/19 07/02/19 History carvedilol 3.125 mg PO BID 07/02/19 07/02/19 History Patient History Medical History Anemia Anxiety (Chronic) [place] esophagus (Chronic) COPD (chronic obstructive pulmonary disease) (Chronic) inhaler prn Coronary artery disease, occlusive Critical limb ischemia with history of revascularization of same extremity (Resolved) RLE CVA (cerebral vascular accident) (Chronic) 2008--slight left side weakness (no assistive devices)--follows with Dr. Astudillo Diabetes mellitus, type II (Chronic) GI bleed Glaucoma bilt eyes HTN (hypertension) (Chronic) Hyperlipidemia (Chronic) Myocardial infarction (Resolved) x2 --currently does not have a high man On anticoagulant therapy plavix daily Osteoarthritis PVD (peripheral vascular disease) (Chronic) Surgical History H/O: hysterectomy (Chronic) History of appendectomy History of bilateral cataract extraction History of bilateral tubal ligation History of bronchoscopy History of cardiac cath x2 both @ [place]--2000 with 1 stent--no stent, instead fem-pop bypass History of carotid endarterectomy (Chronic) 2009 on right side History of colonoscopy with polypectomy History of dilatation and curettage x3 History of endoscopic sinus surgery History of esophagogastroduodenoscopy (EGD) History of heart artery stent x1 before 2000? @ [place] History of repair of right rotator cuff x2 History of tooth extraction most teeth Status post femoral-popliteal bypass surgery (Chronic) 2004 Status post femoropopliteal bypass surgery 11/06/[address] Jara---thrombectomy/Femoral-femoral bypass Family History Sister Family history of diabetes mellitus Family history of esophageal cancer Family hx of colon cancer Sister Family history of diabetes mellitus Sister Family history of diabetes mellitus Sister Family history of diabetes mellitus Sister Family history of diabetes mellitus Sister Family history of diabetes mellitus Sister Family history of diabetes mellitus Brother Family history of diabetes mellitus Brother Family history of diabetes mellitus Brother Family history of diabetes mellitus Other Diabetes No family history of adverse response to anesthesia Stroke Social History Preferred Language: Kiswahili Communication Ability: Effective Rf Engineer Required: No Beliefs That Will Affect Care: None Current Living Situation: Alone Current Living Situation Comment: Lives with daughter Other Information That Helps Us Care for You: No Feels Safe at Home: Yes Safety Concerns: Feels Safe At This Time Smoking Status: Current every day smoker Tobacco Type: cigarettes ; Cigarettes Per Day: 1-2ppd ; Second Hand Exposure: No ; Hx Alcohol Use: No Hx Substance Use: No Review of Systems Review of Systems: All systems reviewed & are unremarkable except as noted in HPI & below Physical Exam Constitutional: WD/WN, vitals as above Obese appearing. No apparent distress. Eyes: PERRL, conjunctivae normal, anicteric sclerae ENMT: external ear and nose normal, oropharynx normal Neck: trachea midline, no thyromegaly Respiratory: Mild expiratory wheezing. Cardiovascular: 1-2+ pitting edema in the lower extremities. Regular rate and rhythm. Gastrointestinal (Abdomen): normal bowel sounds, soft, nontender, no hepatosplenomegaly Musculoskeletal: no cyanosis or clubbing, extremities motor strength 5/5 Skin: no rashes, warm and dry Neurologic: patellar DTR's 2+ bilat, sensation intact Psychiatric: A+Ox3, euthymic affect Results & Data Results & Data ([facility]) Vital Signs (Past 12 Hours) Vital Signs Temp Pulse Pulse Resp BP Pulse Ox 07/03/19 12:34 85 18 90 07/03/19 11:07 98.1 F 70 18 92/60 L 91 07/03/19 08:00 85 07/03/19 07:38 98.2 F 94 H 18 109/68 92 07/03/19 07:10 95 H 18 99 07/03/19 02:27 97.9 F 85 20 112/70 90 I personally reviewed her laboratory data, chest imaging and previous notes. PG Care Time/CCT Total # of Minutes Spent Total Time Spent with Patient: Total time spent is greater than 50% in coordination of care (as documented) at patient's floor/unit and/or counseling patient: [place] [address] Initial Inpt Care Lvl 3 Patient Type New Diagnoses Right upper lobe pulmonary nodule R91.1 SOB (shortness of breath) R06.02 Wheezing R06.[address] R93.89 CAD (coronary artery disease) I25.10 Emphysema lung J43.9 Obesity (BMI 30.0-34.9) E66.9 Time Spent (min) 70
[2019-07-03] MEDS ORDERED: Nursing to Pharmacy Communication ONE (16:53)
[2019-07-03] MEDS: CARBOHYDRATES FOR HYPOGLYCEMIA PO PRN ×2 (20:25→20:37)
[2019-07-03] MEDS: ATORVASTATIN 40 MG TAB PO SCH (20:29)
--- NOTE | 2019-07-03 20:36 | Hospitalist Progress Note ---
Date of Service July 03, 2019 Assessment & Plan (1) Precordial chest pain: symptoms has completely resolved no recurrence of symptoms appreciate input from Cardiology , pt's chest discomfort not related to underlying cardiac disease mild elevation of troponin possible in setting of COPD exacerbation recommends no cardiac medication changes, no need for cardiac intervention /cardiac cath resting echo ordered , report pending (2) COPD exacerbation: presented with cough /SOB /wheeze CXray shows diffuse emphymatous changes , no evidence of infiltrate or effusion D/c Doxycycline cont Neb tx ordered for solu medrol TID, wean down gradually as symptoms of COPD improves Pulmonology following RT LOWER EXT CELLULITIS : presented with pain and sweling of rt lower ext symptom has resolved , minimum erythema , no swelling present on IV rocephin can be switched to PO abx in next 24 hrs (3) Right upper lobe pulmonary nodule: 15mm spiculated nodule noted in rt upper lobe increased since compared to 11/16/2018 appreciate input form pulmonology will need PET scan as out pt PFT for lung function reserve -may need lobectomy vs radiation tx pt will ne seen at Pulmonology clinic as out patient (4) PVD (peripheral vascular disease): hx of severe PVD s/p femoral -poplitial bypass by Dr Jara in 2019 lower ext arterial doppler shows -patent fermoal -femoral arterial bypass without evidence of high grade focal arterial stenosis rt lower ext cellulitis improved with IV rocephin cont out pt meds pt does not appear to need any vascular intervention CODE STATUS : FULL CODE DVT PROPHYLAXIS : sub q heparin Admission and Anticipated Discharge Date Admission Date: July 02, 2019 Subjective rt leg and foot pain has improved markedly no redness or swelling on rt foot has productive cough with whitish sputum denies of any SOB , no fever or chills no DRUMMOND no complain of chest pain , chest discomfort , palpitation or dizzy spell since admission Review of Systems Review of Systems: All systems reviewed & are unremarkable except as noted in HPI & below Respiratory: + cough, + sputum production and + wheezing; no dyspnea, no dyspnea on exertion and no pain with cough Cardiovascular: + edema; no chest pain, no dyspnea, no orthopnea, no palpitations, no syncope and no claudication Physical Exam Constitutional: WD/WN, vitals as above + ill appearing; no acute distress Eyes: PERRL, conjunctivae normal, anicteric sclerae ENMT: external ear and nose normal, oropharynx normal Neck: trachea midline, no thyromegaly Respiratory: normal respiratory effort and + cough; no respiratory distress and no labored breathing Auscultation: + wheezes; no crackles and no rales Cardiovascular: RRR, no murmur, no edema Gastrointestinal (Abdomen): normal bowel sounds, soft, nontender, no hepatosplenomegaly Musculoskeletal: no cyanosis or clubbing, extremities motor strength 5/5 Skin: no rashes, warm and dry Neurologic: PERRL, EOMI, accommodation nl, no face palsy, no dysarthria Psychiatric: A+Ox3, euthymic affect Results & Data Results & Data ([facility]) Vital Signs (Past 12 Hours) Vital Signs Temp Pulse Resp BP Pulse Ox 07/03/19 20:00 98 H 14 90 07/03/19 19:57 37.1 C 83 16 125/64 95 07/03/19 14:42 37.1 C 88 20 78/48 L 90 07/03/19 12:34 85 18 90 07/03/19 11:07 36.7 C 70 18 92/60 L 91
[2019-07-03] MEDS: cefTRIAXone SODIUM 2,000 MG in DEXTROSE 5% 50 ML IV SCH (22:15)
[2019-07-03] MEDS ORDERED: SODIUM CHLORIDE 0.9% 500 ML IV SCH (23:45)
[2019-07-04] MEDS: ONDANSETRON INJ 2 MG/ML 2 ML VIAL IV PRN (00:02)
[2019-07-04] MEDS: LEVALBUTEROL HCL 1.25 MG/3 ML NEB NEB SCH ×4 (00:59→19:19)
[2019-07-04] MEDS ORDERED: KETOROLAC TROMETHAMINE 15 MG/ML VIAL IV ONE (01:14)
[2019-07-04] MEDS: HEPARIN SOD 5,000 UNIT/0.5 ML VIAL SQ SCH ×3 (06:04→20:17)
[2019-07-04] MEDS: TRAMADOL HCL 50 MG TABLET PO SCH ×4 (06:04→22:24)
[2019-07-04] MEDS: SUCRALFATE 1 GM TAB PO SCH ×4 (07:40→20:14)
[2019-07-04] MEDS: methylPREDNISolone 40 MG in SYRINGE 0 ML IV SCH ×3 (08:07→20:17)
[2019-07-04] MEDS: GABAPENTIN 300 MG CAP PO SCH ×3 (08:07→20:17)
[2019-07-04] MEDS: DOCUSATE SODIUM 100 MG CAP PO SCH ×2 (08:08→20:15)
[2019-07-04] MEDS: carvediloL 3.125 MG TAB PO SCH ×2 (08:08→20:15)
[2019-07-04] MEDS: CALCIUM 600MG + VIT D 400 IU TAB PO SCH ×3 (08:08→20:16)
[2019-07-04] MEDS: BusPIRone 15 MG TAB PO SCH ×2 (08:09→20:16)
[2019-07-04] MEDS: ASPIRIN 81 MG ECTAB PO SCH (08:09)
[2019-07-04] MEDS: CHOLECALCIFEROL 1,000 UNITS 25 MCG TAB PO SCH (08:09)
[2019-07-04] MEDS: CLOPIDOGREL BISULFATE 75 MG TAB PO SCH (08:09)
[2019-07-04] MEDS: LORATADINE 10 MG TAB PO SCH (08:10)
[2019-07-04] MEDS: PANTOprazole 40 MG TAB PO SCH (08:10)
[2019-07-04] MEDS: NICOTINE 21 MG/24 HR TDSY TD SCH (08:11)
[2019-07-04] MEDS: INSULIN ASPART 100 UNITS/ML 3 ML PEN SC SCH ×4 (08:13→20:19)
[2019-07-04] MEDS: FLUTICASONE/VILANTEROL 100/25MCG 14 PUFFS/INHALER INH SCH (08:38)
[2019-07-04] MEDS: UMECLIDINIUM BROMIDE 62.5MCG/BLISTER 7 PUFFS/INHALER INH SCH (08:38)
--- NOTE | 2019-07-04 12:13 | Electrocardiogram Report ---
Test Reason : Blood Pressure : / mmHG Vent. Rate : 081 BPM Atrial Rate : 081 BPM P-R Int : 126 ms QRS Dur : 084 ms QT Int : 406 ms P-R-T Axes : 076 089 016 degrees QTc Int : 471 ms Normal sinus rhythm Normal ECG When compared with ECG of 03-JUL-2019 07:19, Sinus rhythm has replaced atrial fibrillation Confirmed by Edwin Kitchen ([id number]) on 07/04/2019 12:13:21 PM Referred By: REFERRED SELF Confirmed By:Chiki Kitchen
--- NOTE | 2019-07-04 13:12 | Cardiology Progress Note ---
Date of Service July 04, 2019 Assessment & Plan (1) Precordial chest pain: Patient with mild, flat, troponin elevation, peaking at 0.6 NG per mL range. Repeat EKG reveals sinus rhythm with no significant repolarization changes today. No additional anginal symptoms reported. Patient presented with complaints of progressive right leg pain, she notes that she was flustered trying to find the hospital, and had chest pain and shortness of breath as well. He certainly has good reason to have shortness of breath given her underlying emphysema. Echocardiogram performed this admission 07/03/2019 (report not in [facility] due to technical difficulty thus far) revealed normal LV systolic funct ion, but the regional wall motion was poorly delineated. Her previous echocardiogram in February, at [facility] revealed a basal inferior scar, and severe mitral regurgitation, pulmonary artery systolic pressure was estimated to be 60 mm at that time. The regional wall motion, MR, and TR were insufficiently visualized on the 07/03/2019 echo at [facility] yesterday, and further images are going to be obtained later today. Right ventricular hypokinesis was noted, however CT angiogram excluded the presence of pulmonary embolism. Diffuse coronary artery calcification noted. History of remote stenting in approximately 2000 at [place], details unknown. Given her presenting symptoms of chest discomfort and mild troponin elevation, I think would be prudent to proceed with cardiac catheterization. Perhaps this can be performed via the right radial artery approach to avoid femoral artery access. Moderate left subclavian stenosis was noted on CT angiogram this admission. Continue chronic aspirin and Plavix, continue chronic carvedilol. Continue chronic atorvastatin. Patient has history of nickel allergy. I discussed this with interventional cardiology, at present, no concerns regarding candidacy for intracoronary stent. (2) Right upper lobe pulmonary nodule: Patient with 50 mm spiculated pulmonary nodule. Case discussed with pulmonary. I agree that she would be a poor candidate for lobectomy given her baseline comorbidities. If PCI becomes necessary, can consider bare-metal stenting to allow limited course of clopidogrel. (3) Edema of right lower leg: Patient's edema is improved and her pain is improved compared to when she presented, but she still has residual pain, it is reproduced when I touch her foot. I am not certain if she has chronic neuropathic pain, or if this is due to her peripheral arterial disease. I have asked the primary service to review her case with vascular surgery. Subjective CC: follow up chest pain Subjective: Patient states chest pain and shortness of breath have resolved. No recurrence since presentation. Review of Systems Review of Systems: All systems reviewed & are unremarkable except as noted in HPI & below Physical Exam Physical Exam: Temp Pulse Resp BP Pulse Ox 36.4 C L 85 20 94/54 L 95 07/04/19 11:30 07/04/19 11:30 07/04/19 11:30 07/04/19 11:30 07/04/19 11:30 Constitutional: Chronically ill in appearance, no acute distress Respiratory: normal respiratory effort, lungs clear to auscultation Cardiovascular: Rate/Rhythm: regular rate Heart Sounds: + murmur (I/ systolic murmur) Vessels: no JVD Extremities: no edema Results & Data Vital Signs (Past 12 Hours) Vital Signs Temp Pulse Pulse Resp BP Pulse Ox 07/04/19 11:30 36.4 C L 85 20 94/54 L 95 07/04/19 07:27 73 07/04/19 07:25 36.6 C 77 18 94/57 L 95 07/04/19 07:16 72 16 94 07/04/19 03:16 36.7 C 73 20 115/74 93 Laboratory Results Cardiac Enzymes 07/03/19 07/04/19 Range/Units 23:47 05:26 Troponin I 0.694 H* 0.560 H* (0-0.045) ng/ml Intake and Output 07/03/19 07/04/19 07/04/19 22:59 06:59 14:59 Intake Total 2029 922029 Output Total Balance 599 2028 92 / 2028 Intake: IV 680 / 790 Vibramycin 100 mg In D5 100 ml 110 / 220 @ 50 mls/hr IV Q12H FABIAN Rx#: [id number] Nss 500 ml @ 500 mls/hr IV .Q1H 500 / 500 [facility]ABIAN Rx#:[id number] Rocephin 2,000 mg In D5w 50 ml 70 / 70 @ 100 mls/hr IV Q24H FABIAN Rx#: [id number] Oral 600 / 1240 240 / 1240 Output: # Bowel Movements Other: Weight 86.6 kg Medications Administered Cardiac Enzymes 07/03/19 07/04/19 Range/Units 23:47 05:26 Troponin I 0.694 H* 0.560 H* (0-0.045) ng/ml Intake and Output 07/03/19 07/04/19 07/04/19 22:59 06:59 14:59 Intake Total 2029 922029 Output Total Balance 592028 922028 Intake: IV 680 / 790 Vibramycin 100 mg In D5 100 ml 110 / 220 @ 50 mls/hr IV Q12H [facility]ABIAN Rx#: [id number] Nss 500 ml @ 500 mls/hr IV .Q1H 500 / 500 FABIAN Rx#:[id number] Rocephin 2,000 mg In D5w 50 ml 70 / 70 @ 100 mls/hr IV Q24H FABIAN Rx#: [id number] Oral 600 / 1240 240 / 1240 Output: # Bowel Movements Other: Weight 86.6 kg
--- NOTE | 2019-07-04 14:12 | Hospitalist Progress Note ---
Date of Service July 04, 2019 Assessment & Plan (1) Precordial chest pain: Present on admission with chest pain Troponin on admission 0.082 that peaked to 0.694, now trending down 0.560 EKG showed no acute ischemic changes ECHO showed on 07/02 revealed normal LV systolic function, but the regional wall motion was poorly delineated Currently denies any chest pain Cardiology on board and plan for cardiac cath tomorrow Continue aspirin, statin, plavix and carvedilol Will make NPO after midnight Continue monitor (2) COPD exacerbation: CXR showed diffuse emphymatous changes , no evidence of infiltrate or effusion Doxycycline was discontinued Pulmonolgy on board On IV Solumedrol TID, will transition to oral Pulmonology on board Continue neb treatment Refused to get the ABG done this morning, agreed to get it done in am (3) Cellulitis of right lower extremity: Venous Doppler of LE showed no sonographic evidence of deep venous thrombosis identified in the right lower extremity Arterial doppler femorofemoral arterial bypass is patent. The right lower extremity arteries are patent. There is no sonographic evidence of focal/high- grade stenosis.The calf arteries are diminutive but appear patent. Swelling improved Continue to have RLE tenderness On IV rocephin, will change to keflex PO Clinincally improves (4) Right upper lobe pulmonary nodule: CT chest showed 15mm spiculated nodule noted in rt upper lobe increased since compared to 11/16/2018 Pulmonology on board recommended outpatient PET scan PFT for lung function reserve -may need lobectomy vs radiation tx pt will ne seen at Pulmonology clinic as out patient (5) PVD (peripheral vascular disease): Hx of severe PVD s/p femoral -poplitial bypass by Dr Jara in 2019 lower ext arterial doppler shows -patent fermoal -femoral arterial bypass without evidence of high grade focal arterial stenosis Case discussed with vascular Dr. Jara that does not thing her pain is related to peripheral artery disease since the femoral artery bypass is patent Continue monitor CODE STATUS FULL CODE DVT PROPHYLAXIS on subq heparin Disposition Plan for cardiac cath in am Admission and Anticipated Discharge Date Admission Date: July 02, 2019 Subjective Pt was seen and examined Lying in bed with no distress Pt said that her breathing feels much better She said that she has been cough up the phlegm She said that the RLE swelling improves Denies any chest pain, palpitation, dizziness and SOB Physical Exam Physical Exam: General- No acute distress Head- atraumatic Eyes- PERRL, EOMI, ENT- oropharynx clear Neck- supple, no JVD Lungs- +coarse BS Heart- regular rhythm; no murmur Abdomen- normal bowel sounds, soft, nontender Extremities- no calf tenderness, +RLE tenderness, +edema Neuro- alert, oriented x 3; PERRL, EOMI; no facial palsy; no dysarthria Skin- warm & dry Results & Data Results & Data ([facility]) Vital Signs (Past 12 Hours) Vital Signs Temp Pulse Pulse Resp BP Pulse Ox 07/04/19 13:43 86 14 95 07/04/19 11:30 36.4 C L 85 20 94/54 L 95 07/04/19 07:27 73 07/04/19 07:25 36.6 C 77 18 94/57 L 95 07/04/19 07:16 72 16 94 07/04/19 03:16 36.7 C 73 20 115/74 93
[2019-07-04] MEDS: ATORVASTATIN 40 MG TAB PO SCH (20:15)
[2019-07-04] MEDS: HYDROmorphone INJ 0.5 MG/0.5 ML SYR IV PRN (20:35)
[2019-07-04] MEDS ORDERED: INSULIN GLARGINE SOLOSTAR 100 UNITS/ML 3 ML PEN SC STA (21:59)
[2019-07-04] MEDS: cefTRIAXone SODIUM 2,000 MG in DEXTROSE 5% 50 ML IV SCH (22:05)
[2019-07-05] MEDS: LEVALBUTEROL HCL 1.25 MG/3 ML NEB NEB SCH ×4 (01:10→19:46)
[2019-07-05] MEDS: TRAMADOL HCL 50 MG TABLET PO SCH ×4 (05:04→22:26)
[2019-07-05] MEDS: HEPARIN SOD 5,000 UNIT/0.5 ML VIAL SQ SCH ×3 (06:04→22:27)
[2019-07-05] MEDS: methylPREDNISolone 40 MG in SYRINGE 0 ML IV SCH ×2 (06:04→12:35)
[2019-07-05] MEDS ORDERED: ASPIRIN 81 MG CHEW PO SCH (07:00)
[2019-07-05 07:05] LABS: Hematocrit (blood only) 34.1 % (37-47); Hemoglobin 10.9 g/dL (12.0-16.0); Immature Granulocytes # (auto) 0.03 K/uL (0.00-0.02); Immature Granulocytes % (auto) 0.3 %; Lymphocytes # (auto) 0.77 K/uL (1.2-3.4); Lymphocytes % (auto) 7.7 %; Mean Corpuscular Hemoglobin 28.3 pg (25-34); Mean Corpuscular Volume 88.6 fL (80-100); Mean Platelet Volume 9.7 fL (7.4-10.4); Monocytes # (auto) 0.49 K/uL (0.11-0.59); Monocytes % (auto) 4.9 %; Neutrophils # (auto) 8.74 K/uL (1.4-6.5); Neutrophils % (auto) 87.1 %; Platelet Count 324 K/uL (130-400); RDW Standard Deviation 47.5 fL (36.4-46.3); Red Blood Count 3.85 M/uL (4.2-5.4); White Blood Count 10.03 K/uL (4.8-10.8)
[2019-07-05 07:08] LABS: Allen Test Pos (Pos); Base Excess ABG 7.4 mEq/L (-9-1.8); HCO3 ABG 32 mmol/L (19-24); Oxygen Saturation ABG 96.1 % (90-95); PCO2 ABG 47 mmHg (35-46); PO2 ABG 79 mmHg (80-95); pH ABG 7.46 (7.35-7.45)
[2019-07-05 07:33] LABS: BUN Creatinine Ratio 29.1 (10-20); Calcium 9.8 mg/dl (8.5-10.1); Creatinine Clr Calc Pharmacy 56.8 ml/min; Est GFR (African American) 71.7; Est GFR (Non-African American) 61.9; Potassium 4.4 mmol/L (3.5-5.1)
[2019-07-05 07:36] LABS: Albumin Globulin Ratio 0.8 (0.9-2); Bilirubin,Total 0.4 mg/dl (0.2-1); Globulin 3.6 gm/dl (2.5-4.0); Total Protein 6.6 gm/dl (6.4-8.2)
[2019-07-05] MEDS: DOCUSATE SODIUM 100 MG CAP PO SCH ×2 (07:46→21:19)
[2019-07-05] MEDS: CALCIUM 600MG + VIT D 400 IU TAB PO SCH ×3 (07:46→21:21)
[2019-07-05] MEDS: BusPIRone 15 MG TAB PO SCH ×2 (07:46→21:21)
[2019-07-05] MEDS: CHOLECALCIFEROL 1,000 UNITS 25 MCG TAB PO SCH (07:47)
[2019-07-05] MEDS: LORATADINE 10 MG TAB PO SCH (07:47)
[2019-07-05] MEDS: PANTOprazole 40 MG TAB PO SCH (07:47)
[2019-07-05] MEDS: CLOPIDOGREL BISULFATE 75 MG TAB PO SCH (07:47)
[2019-07-05] MEDS: GABAPENTIN 300 MG CAP PO SCH ×3 (07:47→21:21)
[2019-07-05] MEDS: ASPIRIN 81 MG ECTAB PO SCH (07:47)
[2019-07-05] MEDS: SUCRALFATE 1 GM TAB PO SCH ×4 (07:48→21:19)
[2019-07-05] MEDS: carvediloL 3.125 MG TAB PO SCH ×2 (07:48→21:20)
[2019-07-05] MEDS: FLUTICASONE/VILANTEROL 100/25MCG 14 PUFFS/INHALER INH SCH (07:49)
[2019-07-05] MEDS: UMECLIDINIUM BROMIDE 62.5MCG/BLISTER 7 PUFFS/INHALER INH SCH (07:49)
[2019-07-05] MEDS: NICOTINE 21 MG/24 HR TDSY TD SCH (07:49)
[2019-07-05] MEDS: INSULIN ASPART 100 UNITS/ML 3 ML PEN SC SCH ×4 (07:55→21:18)
--- NOTE | 2019-07-05 10:19 | Cardiology Progress Note ---
Date of Service July 05, 2019 Assessment & Plan (1) Precordial chest pain: Chest pain, mild troponin I elevation: Patient presented with acute right foot pain, mild, blunted troponin elevation peaking at 0.694 PG per mL, without ischemic EKG changes. Echocardiogram reveals chronic finding of basal inferior myocardial infarction, severe mitral regurgitation felt to be present, along with right ventricular dysfunction, and moderate, likely severe pulmonary hyper tension, estimated pulmonary artery systolic pressure 57 mmHg. The pulmonary hypertension may be related to her underlying lung disease, or due to the mitral regurgitation. Patient has a history of remote myocardial infarction, in the early 1999' she describes having had a stent, the anatomical details of this are unknown. Her troponin elevation is consistent with a demand ischemia event rather than acute intracoronary plaque thrombosis. I think that her emotional and physical duress over her foot pain, prompted myocardial strain, perhaps in the setting of chronic fixed coronary disease. Her anatomy was reviewed. Patient has a known left subclavian stenosis, with prior stroke dating back to 2008, when subclavian intervention was performed. She has a history of a groin hematoma several months ago during vascular work- up. After further consideration, I am very concerned about the potential risk of cardiac catheterization in this patient, and the most prudent course of action may be to proceed with a pharmacologic nuclear stress test to assess for ischemia burden/viability which may help determine course of action in terms of treating her medically or invasively. She is a poor candidate for surgical intervention for her mitral valve, and is difficult to determine how much of her symptoms could be related to the mitral valve versus her underlying emphysema. RUL lung mass: 15 mm spiculated nodule in the right upper lobe of the lung. Concerning for possible lung cancer. Case had been discussed with pulmonary. Patient of course is high risk for lobectomy surgery. Empiric radiation therapy to be considered. Patient had previously noted at the time of her outpatient cardiology assessment that she is not interested in ceasing smoking. Right foot discomfort: Arterial duplex/bypass graft duplex, somewhat reassuring, and since this is my first encounter with the patient, is difficult to determine how much of her discomfort is acute versus chronic. Her presentation and current physical exam however are atypical for this to be a cellulitis. Uncertain if chronic neuropathic pain may be in part to blame versus PAD. With patient's permission, I spoke to her sister, Nidhi Ramirez, who is a retired nurse and explained the above. Subjective Follow-up: Right foot pain, chest pain Subjective: Patient states that she had a poor night sleep, but denies any anginal symptoms overnight. Telemetry reveals sinus rhythm with premature atrial contractions in the 80 bpm range. Review of Systems Review of Systems: All systems reviewed & are unremarkable except as noted in HPI & below Physical Exam Physical Exam: Temp Pulse Resp BP Pulse Ox 36.7 C 80 18 144/85 H 95 07/05/19 07:42 07/05/19 08:00 07/05/19 07:42 07/05/19 07:42 07/05/19 07:42 Constitutional: WD/WN, vitals as above Respiratory: normal respiratory effort, lungs clear to auscultation Cardiovascular: Rate/Rhythm: regular rhythm Heart Sounds: + murmur (1/6 SM) Vessels: no JVD Extremities: + edema (1 + focal edema at the dorsum of the right foot.No erythema) Gastrointestinal (Abdomen): normal bowel sounds, soft, nontender, no hepatosplenomegaly Neurologic: PERRL, EOMI, accommodation nl, no face palsy, no dysarthria Results & Data Vital Signs (Past 12 Hours) Vital Signs Temp Pulse Pulse Pulse Pulse Resp BP 07/05/19 08:00 80 07/05/19 07:42 36.7 C 82 18 144/85 H 07/05/19 07:13 87 16 07/05/19 03:49 36.6 C 85 20 146/77 H 07/05/19 01:15 82 07/05/19 01:11 84 07/04/19 23:43 96 H 07/04/19 23:35 36.7 C 93 H 20 137/75 Pulse Ox Pulse Ox Pulse Ox 07/05/19 08:00 07/05/19 07:42 95 07/05/19 07:13 97 07/05/19 03:49 98 07/05/19 01:15 92 07/05/19 01:11 82 L 07/04/19 23:43 07/04/19 23:35 95 Laboratory Results Cardiac Enzymes 07/05/19 Range/Units 06:40 AST 15 (15-37) U/L CBC 07/05/19 Range/Units 06:40 WBC 10.03 (4.8-10.8) K/uL RBC 3.85 L (4.2-5.4) M/uL Hgb 10.9 L (12.0-16.0) g/dL Hct 34.1 L (37-47) % Plt Count 324 (130-400) K/uL Neut # (Auto) 8.74 H (1.4-6.5) K/uL Lymph # (Auto) 0.77 L (1.2-3.4) K/uL Lynn # (Auto) 0.49 (0.11-0.59) K/uL Eos # (Auto) 0.00 (0-0.5) K/uL Baso # (Auto) 0.00 (0-0.2) K/uL Comprehensive Metabolic Panel 07/05/19 Range/Units 06:40 Sodium 136 (136-145) mmol/L Potassium 4.4 (3.5-5.1) mmol/L Chloride 100 (98-107) mmol/L Carbon Dioxide 32 (21-32) mmol/L BUN 27 H (7-18) mg/dl Creatinine 0.94 (0.6-1.2) mg/dl Glucose 210 H (70-99) mg/dl Calcium 9.8 (8.5-10.1) mg/dl AST 15 (15-37) U/L ALT 29 (12-78) U/L Alkaline Phosphatase 71 (45-117) U/L Total Protein 6.6 (6.4-8.2) gm/dl Albumin 3.0 L (3.4-5.0) gm/dl Intake and Output 07/04/19 07/05/19 07/05/19 22:59 06:59 14:59 Intake Total 5 1824 Balance 1824 Intake: IV 70 / 70 Rocephin 2,000 mg In D5w 50 ml 70 / 70 @ 100 mls/hr IV Q24H [facility] Rx#: [id number] Oral [id number] Other: Other Intake Source npo # Unmeasured Voids 2 1 Weight 84.2 kg
[2019-07-05] MEDS: HYDROmorphone INJ 0.5 MG/0.5 ML SYR IV PRN ×2 (16:03→21:33)
--- NOTE | 2019-07-05 16:45 | Hospitalist Progress Note ---
Date of Service July 05, 2019 Assessment & Plan (1) Precordial chest pain: Present on admission with chest pain Troponin on admission 0.082 that peaked to 0.694, now trending down 0.560 EKG showed no acute ischemic changes ECHO showed on 07/02 revealed normal LV systolic function, but the regional wall motion was poorly delineated Currently denies any chest pain Cardiology on board and plan to get a nuclear stress test done tomorrow instead to proceed to cardiac cath due to pt high risk and complication from previous interventions Continue aspirin, statin, plavix and carvedilol Will make NPO after midnight Continue monitor (2) COPD exacerbation: CXR showed diffuse emphymatous changes , no evidence of infiltrate or effusion Doxycycline was discontinued Pulmonolgy on board On IV Solumedrol TID, will transition to oral tomorrow Pulmonology on board Continue neb treatment Refused to get the ABG done this morning, agreed to get it done in am Overnight pulse oximetry done and pt required 2L oxygen at night Will get a 2 step exercise before discharge (3) Cellulitis of right lower extremity: Venous Doppler of LE showed no sonographic evidence of deep venous thrombosis identified in the right lower extremity Arterial doppler femorofemoral arterial bypass is patent. The right lower extremity arteries are patent. There is no sonographic evidence of focal/high- grade stenosis.The calf arteries are diminutive but appear patent. Swelling improved Continue to have RLE tenderness On IV rocephin, will change to keflex PO Continue Keflex for now Clinically improves (4) Right upper lobe pulmonary nodule: CT chest showed 15mm spiculated nodule noted in rt upper lobe increased since compared to 11/16/2018 Pulmonology on board recommended outpatient PET scan PFT for lung function reserve -may need lobectomy vs radiation tx pt will ne seen at Pulmonology clinic as out patient (5) PVD (peripheral vascular disease): Hx of severe PVD s/p femoral -poplitial bypass by Dr Jara in 2019 lower ext arterial doppler shows -patent fermoal -femoral arterial bypass without evidence of high grade focal arterial stenosis Case discussed with vascular Dr. Jara that does not thing her pain is related to peripheral artery disease since the femoral artery bypass is patent Continue monitor CODE STATUS FULL CODE DVT PROPHYLAXIS on subq heparin Disposition Plan for nuclear stress tomorrow Admission and Anticipated Discharge Date Admission Date: July 02, 2019 Subjective Pt was seen and examined. Lying in bed with no distress Pt was very upset this morning because her cardiac cath was cancelled since she is very high risk candidate She wanted to leave [facility] because she has no intention to transfer to [facility] to get the cardiac cath Pt said that her breathing feels much better She said that she continues to have pain in her RLE that she said it is chronic She said that she sees Dr. Jara outpatient and Dr Jara told her no plan for any intervention since the bypass is patent Physical Exam Physical Exam: General- No acute distress Head- atraumatic Eyes- PERRL, EOMI, ENT- oropharynx clear Neck- supple, no JVD Lungs- +coarse BS Heart- regular rhythm Abdomen- normal bowel sounds, soft, nontender Extremities- no calf tenderness, +RLE tenderness, +edema Neuro- alert, oriented x 3; PERRL, EOMI; no facial palsy; no dysarthria Skin- warm & dry Results & Data Results & Data ([facility]) Vital Signs (Past 12 Hours) Vital Signs Temp Pulse Pulse Resp BP Pulse Ox 07/05/19 16:05 84 07/05/19 15:09 36.4 C L 75 20 119/71 96 07/05/19 13:40 73 16 94 07/05/19 11:33 36.5 C 82 18 148/84 H 96 07/05/19 08:00 80 07/05/19 07:42 36.7 C 82 18 144/85 H 95 07/05/19 07:13 87 16 97
[2019-07-05] MEDS: ONDANSETRON INJ 2 MG/ML 2 ML VIAL IV PRN (20:13)
[2019-07-05] MEDS: cephALEXin 500 MG CAP PO SCH (21:22)
[2019-07-05] MEDS: ATORVASTATIN 40 MG TAB PO SCH (21:23)
[2019-07-05] MEDS: INSULIN GLARGINE SOLOSTAR 100 UNITS/ML 3 ML PEN SC SCH (22:26)
[2019-07-06] MEDS: LEVALBUTEROL HCL 1.25 MG/3 ML NEB NEB SCH ×4 (01:50→18:42)
[2019-07-06] MEDS: HYDROmorphone INJ 0.5 MG/0.5 ML SYR IV PRN ×3 (03:38→20:18)
[2019-07-06] MEDS: TRAMADOL HCL 50 MG TABLET PO SCH ×4 (05:10→23:53)
[2019-07-06] MEDS: SUCRALFATE 1 GM TAB PO SCH ×4 (07:01→20:25)
[2019-07-06] MEDS: HEPARIN SOD 5,000 UNIT/0.5 ML VIAL SQ SCH ×3 (07:03→23:54)
[2019-07-06] MEDS ORDERED: REGADENOSON 0.4 MG/5 ML SYR IV ONE (08:03)
--- NOTE | 2019-07-06 11:04 | XRay Report ---
XR ankle RT min 3V routine CLINICAL HISTORY: 68 years-old Female presenting with right ankle pain. TECHNIQUE: Frontal, mortise, and lateral views of the right ankle were obtained. COMPARISON: None. FINDINGS: Ankle mortise congruent. No acute fracture or malalignment. No advanced degenerative change. Diffuse moderate soft tissue swelling greatest over the lateral malleolus. Atherosclerosis. IMPRESSION: No acute osseous injury. ACT 112: Negative or not required by law. Electronically signed by: Chandler Mendoza M.D. 07/06/2019 11:03 AM
[2019-07-06] MEDS: CLOPIDOGREL BISULFATE 75 MG TAB PO SCH (11:35)
[2019-07-06] MEDS: FLUTICASONE/VILANTEROL 100/25MCG 14 PUFFS/INHALER INH SCH (11:35)
[2019-07-06] MEDS: ASPIRIN 81 MG ECTAB PO SCH (11:35)
[2019-07-06] MEDS: cephALEXin 500 MG CAP PO SCH ×2 (11:35→20:27)
[2019-07-06] MEDS: LORATADINE 10 MG TAB PO SCH (11:35)
[2019-07-06] MEDS: BusPIRone 15 MG TAB PO SCH ×2 (11:36→20:26)
[2019-07-06] MEDS: PANTOprazole 40 MG TAB PO SCH (11:36)
[2019-07-06] MEDS: predniSONE 20 MG TAB PO SCH (11:36)
[2019-07-06] MEDS: CHOLECALCIFEROL 1,000 UNITS 25 MCG TAB PO SCH (11:37)
[2019-07-06] MEDS: carvediloL 3.125 MG TAB PO SCH ×2 (11:37→20:25)
[2019-07-06] MEDS: NICOTINE 21 MG/24 HR TDSY TD SCH (11:37)
[2019-07-06] MEDS: DOCUSATE SODIUM 100 MG CAP PO SCH ×2 (11:37→20:25)
[2019-07-06] MEDS: GABAPENTIN 300 MG CAP PO SCH ×3 (11:37→20:25)
[2019-07-06] MEDS: UMECLIDINIUM BROMIDE 62.5MCG/BLISTER 7 PUFFS/INHALER INH SCH (11:38)
[2019-07-06] MEDS: CALCIUM 600MG + VIT D 400 IU TAB PO SCH ×3 (11:38→20:26)
[2019-07-06] MEDS: INSULIN ASPART 100 UNITS/ML 3 ML PEN SC SCH ×4 (13:26→20:31)
--- NOTE | 2019-07-06 14:16 | Myocardial Perfusion Study ---
Date of Service July 06, 2019 Myocardial Perfusion Study [facility] Myocardial Perfusion Study Report [place] Act 112: Negative Procedure: 1. Myocardial perfusion study performed in multiple views/images 2. Lexiscan pharmacologic stress ECG Indications: 1. Recent chest discomfort, mild troponin elevation 2. History of coronary heart disease Ordering physician: Nnamdi Martell DO, [facility] Procedural details: For the stress portion of the study, Lexiscan 0.4 mg was intravenously administered followed by a saline flush. This was followed by 32.1 mCi of technetium 99m Cardiolite, injected at 9:45 AM on 07/06/2019. 30 minutes following the injection, imaging of the heart was performed in multiple projections. For the rest portion of the study, 10.2 mCi technetium 99m Cardiolite was injected intravenously at 7:50 AM on 07/06/2019. 1 hour following the injection, imaging of the heart was performed in the same projections. Lexiscan stress ECG: Resting ECG demonstrated: Sinus rhythm at [address] segments were normal on the resting ECG. Maximum heart rate: 105 bpm Maximal, age-predicted heart rate: 69 % Resting blood pressure: 109/58 mmHg Maximum blood pressure: 109/[address] changes: None Arrhythmia: None Symptoms: Mild cough and lightheadedness was reported with the administration of Lexiscan that resolved in the post stress recovery interval. No symptoms suggestive of angina were reported or observed. Findings: Rotating raw imaging demonstrated no significant lung uptake. There is no significant motion artifact. Heart size appeared normal. There was tracer uptake adjacent to the inferior wall, but the images were satisfactory for interpretation. Stress SPECT images revealed a small sized perfusion defect of mild intensity encompassing the basal inferior wall with normal perfusion to the remaining myocardium. Resting SPECT images revealed a persistent small sized perfusion defect of mild intensity encompassing the basal inferior wall. Ejection fraction: 69% Wall motion: Akinesis of the basal inferior segment, otherwise normal No significant transient ischemic dilation. Impression: 1. There is a small sized fixed perfusion defect limited to the basal segment of the inferior wall with normal perfusion to the remaining myocardial segments on both the stress and rest images. Findings are consistent with sized scar of the basal inferior wall, which correlates well with the patient's echocardiographic findings. There is no evidence of superimposed ischemia. 2. Gated SPECT images revealed normal wall motion and the remaining myocardial segments, calculated LVEF 69%. These results were discussed with the patient by the undersigned interpreting physician at just after 2 PM on 07/06/2019. Ongoing risk factor modification and medical management is recommended.
--- NOTE | 2019-07-06 14:24 | Cardiology Progress Note ---
Date of Service July 06, 2019 Assessment & Plan (1) Precordial chest pain: Patient with remote myocardial infarction, basal inferior scar noted on echo and stress, likely underlying severe mitral regurgitation, patient is well compensated however without diuretic therapy. I get the sense that her physical activity at baseline is somewhat limited due to her chronically debilitated state, peripheral arterial disease. Her nuclear stress test today reveals no evidence of inducible ischemia, a small sized basal inferior scar is noted correlates well with the echocardiogram, and her ejection fraction is normal at 69%. Recommend ongoing medication therapy/risk factor modification with chronic dual antiplatelet therapy, carvedilol, statin therapy. Agree with prednisone therapy, perhaps as well for from a pulmonary standpoint as well as from a standpoint of her pain in her foot which may be musculoskeletal. Lower extremity venous duplex negative for DVT this admission, arterial duplex suggests stable degree of PAD. Okay had to discharge, she was on pioglitazone prior to his hospital stay, and the ongoing treatment this will need to be reassessed given her underlying cardiac condition, as noted she did have significant pulmonary hypertension and RV systolic dysfunction noted on echocardiogram. I do not think she is a good operative candidate in terms of her mitral regurgitation, and recommend ongoing observation and conservative treatment. Recommend pulmonary/oncology follow-up for a finding of 15 mm right upper lobe pulmonary nodule. Subjective Patient seen in follow-up of chest discomfort. She was seen prior to, during, and after her pharmacologic nuclear stress test today. Symptoms suggestive angina reported since her initial presentation. Her only complaint is mild right ankle swelling and pain. Physical Exam Physical Exam: Temp Pulse Resp BP Pulse Ox 36.4 C L 85 18 124/74 97 07/06/19 10:49 07/06/19 13:11 07/06/19 13:11 07/06/19 10:49 07/06/19 13:11 Constitutional: WD/WN, vitals as above Respiratory: normal respiratory effort, lungs clear to auscultation Cardiovascular: Rate/Rhythm: regular rhythm Heart Sounds: + murmur (1/6 systolic murmur) Vessels: no JVD Extremities: + edema (Mild focal swelling of the right ankle, a little worse than yesterday) Neurologic: PERRL, EOMI, accommodation nl, no face palsy, no dysarthria Results & Data Vital Signs (Past 12 Hours) Vital Signs Temp Pulse Pulse Resp BP Pulse Ox 07/06/19 13:11 85 18 97 07/06/19 10:49 36.4 C L 79 18 124/74 96 07/06/19 08:00 80 07/06/19 07:12 36.6 C 89 18 105/56 L 95 07/06/19 07:00 73 18 95 07/06/19 03:00 36.8 C 76 20 103/62 93
--- NOTE | 2019-07-06 17:11 | Hospitalist Progress Note ---
Date of Service July 06, 2019 Assessment & Plan (1) Elevated troponin: (2) Precordial chest pain: Present on admission with chest pain Troponin on admission 0.082 that peaked to 0.694, now trending down 0.560 EKG showed no acute ischemic changes ECHO showed on 07/02 revealed normal LV systolic function, but the regional wall motion was poorly delineated Currently denies any chest pain Nuclear stress test done today instead to proceed to cardiac cath due to pt high risk and complication from previous interventions Nuclear stress test showed no evidence of inducible ischemia Continue medication therapy/risk factor modification with aspirin, statin, plavix and carvedilol Ok from cardiology standpoint to discharge home (3) COPD exacerbation: CXR showed diffuse emphymatous changes , no evidence of infiltrate or effusion Doxycycline was discontinued Pulmonolgy on board On IV Solumedrol TID, will transition to oral tomorrow Pulmonology on board Continue neb treatment Refused to get the ABG done this morning, agreed to get it done in am Overnight pulse oximetry done and pt required 2L oxygen at night Will get a 2 step exercise before discharge (4) Cellulitis of right lower extremity: Venous Doppler of LE showed no sonographic evidence of deep venous thrombosis identified in the right lower extremity Arterial doppler femorofemoral arterial bypass is patent. The right lower e xtremity arteries are patent. There is no sonographic evidence of focal/high- grade stenosis.The calf arteries are diminutive but appear patent. Swelling improved Continue to have RLE tenderness On IV rocephin, will change to keflex PO Continue Keflex for now Clinically improves (5) Right upper lobe pulmonary nodule: CT chest showed 15mm spiculated nodule noted in rt upper lobe increased since compared to 11/16/2018 Pulmonology on board recommended outpatient PET scan PFT for lung function reserve -may need lobectomy vs radiation tx pt will be seen at Pulmonology clinic as out patient (6) PVD (peripheral vascular disease): Hx of severe PVD s/p femoral -poplitial bypass by Dr Jara in 2019 lower ext arterial doppler shows -patent fermoal -femoral arterial bypass without evidence of high grade focal arterial stenosis Case discussed with vascular Dr. Jara that does not thing her pain is related to peripheral artery disease since the femoral artery bypass is patent Sent message to Vascular office Dr. Jara to schedule her with Dr. Jara once discharges Right ankle pain Ankle xray showed no acute fracture or malalignment. No advanced degenerative change. Diffuse moderate soft tissue swelling greatest over the lateral malleolus. Continue tramadol prn for pain Diabetes Most recent Hba1c 6.8 On Lantus and novolog sliding scale Consider to disontinue Pioglitazone due to her cardiac history Continue monitor BS CODE STATUS FULL CODE DVT PROPHYLAXIS on subq heparin Disposition Possible discharge tomorrow Admission and Anticipated Discharge Date Admission Date: July 02, 2019 Subjective Pt was seen and examined Sitting in bed with no distress Pt said that her right ankle is tender today He said that the pain medication helps She said that her breathing is good Denies any chest pain, palpitation, dizziness and SOB Physical Exam Physical Exam: General- No acute distress Head- atraumatic Eyes- PERRL, EOMI, ENT- oropharynx clear Neck- supple, no JVD Lungs- +No wheezing Heart- regular rhythm Abdomen- normal bowel sounds, soft, nontender Extremities- no calf tenderness, +RLE tenderness, +edema Neuro- alert, oriented x 3; PERRL, EOMI; no facial palsy; no dysarthria Skin- warm & dry Results & Data Results & Data ([facility]) Vital Signs (Past 12 Hours) Vital Signs Temp Pulse Pulse Resp BP Pulse Ox 07/06/19 15:00 68 07/06/19 14:49 36.4 C L 72 20 96/58 L 93 07/06/19 13:11 85 18 97 07/06/19 10:49 36.4 C L 79 18 124/74 96 07/06/19 08:00 80 07/06/19 07:12 36.6 C 89 18 105/56 L 95 07/06/19 07:00 73 18 95
[2019-07-06] MEDS: FUROSEMIDE 20 MG TAB PO PRN (20:17)
[2019-07-06] MEDS: ATORVASTATIN 40 MG TAB PO SCH (20:27)
[2019-07-06] MEDS: INSULIN GLARGINE SOLOSTAR 100 UNITS/ML 3 ML PEN SC SCH (20:30)
[2019-07-07] MEDS: HYDROmorphone INJ 0.5 MG/0.5 ML SYR IV PRN (00:46)
[2019-07-07] MEDS: LEVALBUTEROL HCL 1.25 MG/3 ML NEB NEB SCH ×3 (01:18→13:17)
[2019-07-07] MEDS: TRAMADOL HCL 50 MG TABLET PO SCH ×2 (06:44→11:04)
[2019-07-07] MEDS: SUCRALFATE 1 GM TAB PO SCH ×2 (07:44→11:05)
[2019-07-07] MEDS: HEPARIN SOD 5,000 UNIT/0.5 ML VIAL SQ SCH (07:45)
[2019-07-07] MEDS: INSULIN ASPART 100 UNITS/ML 3 ML PEN SC SCH ×2 (09:06→12:05)
[2019-07-07] MEDS: UMECLIDINIUM BROMIDE 62.5MCG/BLISTER 7 PUFFS/INHALER INH SCH (09:09)
[2019-07-07] MEDS: FLUTICASONE/VILANTEROL 100/25MCG 14 PUFFS/INHALER INH SCH (09:11)
[2019-07-07] MEDS: BusPIRone 15 MG TAB PO SCH (09:11)
[2019-07-07] MEDS: ASPIRIN 81 MG ECTAB PO SCH (09:12)
[2019-07-07] MEDS: CALCIUM 600MG + VIT D 400 IU TAB PO SCH (09:13)
[2019-07-07] MEDS: LORATADINE 10 MG TAB PO SCH (09:13)
[2019-07-07] MEDS: GABAPENTIN 300 MG CAP PO SCH ×2 (09:14→14:12)
[2019-07-07] MEDS: cephALEXin 500 MG CAP PO SCH (09:14)
[2019-07-07] MEDS: PANTOprazole 40 MG TAB PO SCH (09:15)
[2019-07-07] MEDS: CLOPIDOGREL BISULFATE 75 MG TAB PO SCH (09:15)
[2019-07-07] MEDS: DOCUSATE SODIUM 100 MG CAP PO SCH (09:16)
[2019-07-07] MEDS: CHOLECALCIFEROL 1,000 UNITS 25 MCG TAB PO SCH (09:17)
[2019-07-07] MEDS: carvediloL 3.125 MG TAB PO SCH (09:18)
[2019-07-07] MEDS: NICOTINE 21 MG/24 HR TDSY TD SCH (09:19)
[2019-07-07] MEDS: FUROSEMIDE 20 MG TAB PO PRN (09:30)
[2019-07-07] MEDS: predniSONE 20 MG TAB PO SCH (09:52)
--- NOTE | 2019-07-07 11:27 | Hospitalist Progress Note ---
Date of Service July 07, 2019 Assessment & Plan (1) Elevated troponin: (2) Precordial chest pain: Present on admission with chest pain Troponin on admission 0.082 that peaked to 0.694, now trending down 0.560 EKG showed no acute ischemic changes ECHO showed on 07/02 revealed normal LV systolic function, but the regional wall motion was poorly delineated Currently denies any chest pain Nuclear stress test done today instead to proceed to cardiac cath due to pt high risk and complication from previous interventions Nuclear stress test showed no evidence of inducible ischemia Continue medication therapy/risk factor modification with aspirin, statin, plavix and carvedilol Follow up with cardiology Ok from cardiology standpoint to discharge home (3) COPD exacerbation: CXR showed diffuse emphymatous changes , no evidence of infiltrate or effusion Doxycycline was discontinued Pulmonolgy on board On IV Solumedrol TID, will transition to oral tomorrow Will taper prednisone to 20mgx 3 days Pulmonology on board Continue neb treatment Refused to get the ABG done because it is painful Overnight pulse oximetry done and pt required 2L oxygen at night 2 step exercise done and pt does not require oxygen with ambulation (4) Cellulitis of right lower extremity: Venous Doppler of LE showed no sonographic evidence of deep venous thrombosis identified in the right lower extremity Arterial doppler femorofemoral arterial bypass is patent. The right lower extremity arteries are patent. There is no sonographic evidence of focal/high- grade stenosis.The calf arteries are diminutive but appear patent. Swelling improved Continue to have RLE tenderness On IV rocephin, will change to keflex PO Will complete Keflex course Clinically improves (5) Right upper lobe pulmonary nodule: CT chest showed 15mm spiculated nodule noted in rt upper lobe increased since compared to 11/16/2018 Pulmonology on board recommended outpatient PET scan PFT for lung function reserve -may need lobectomy vs radiation tx pt will be seen at Pulmonology clinic as out patient (6) PVD (peripheral vascular disease): Hx of severe PVD s/p femoral -poplitial bypass by Dr Jara in 2019 lower ext arterial doppler shows -patent fermoal -femoral arterial bypass without evidence of high grade focal arterial stenosis Case discussed with vascular Dr. Jara that does not thing her pain is related to peripheral artery disease since the femoral artery bypass is patent Sent message to Vascular office Dr. Jara to schedule her with Dr. Jara once discharges Right ankle pain Ankle xray showed no acute fracture or malalignment. No advanced degenerative change. Diffuse moderate soft tissue swelling greatest over the lateral malleolus. Pain improves significantly Continue tramadol prn for pain Diabetes Most recent Hba1c 6.8 On Lantus and novolog sliding scale Consider to disontinue Pioglitazone due to her cardiac history, will defer to PCP Pt said that she cannot tolerate Metformin and Januvia Not interested on any subq diabetes medication Continue monitor BS CODE STATUS FULL CODE DVT PROPHYLAXIS on subq heparin Disposition Possible discharge today Admission and Anticipated Discharge Date Admission Date: July 02, 2019 Subjective Pt was seen and examined Sitting at the edge of the bed with no distress She is watching movie in her Ipad She said that she feels much better today Swelling in her right ankle improves significantly She said that her breathing is back to normal Denies any chest pain, palpitation and SOB Physical Exam Physical Exam: General- No acute distress Head- atraumatic Eyes- PERRL, EOMI, ENT- oropharynx clear Neck- supple, no JVD Lungs- +No wheezing Heart- regular rhythm Abdomen- normal bowel sounds, soft, nontender Extremities- no calf tenderness, +RLE tenderness, +edema Neuro- alert, oriented x 3; PERRL, EOMI; no facial palsy; no dysarthria Skin- warm & dry Results & Data Results & Data ([facility]) Vital Signs (Past 12 Hours) Vital Signs Temp Pulse Pulse Pulse Pulse Pulse Resp 07/07/19 10:59 36.4 C L 84 20 07/07/19 09:56 73 07/07/19 09:45 102 H 102 H 82 07/07/19 07:16 81 18 07/07/19 07:10 36.5 C 63 18 07/07/19 04:00 36.8 C 86 20 Resp Resp Resp BP Pulse Ox Pulse Ox Pulse Ox 07/07/19 10:59 121/64 98 07/07/19 09:56 07/07/19 09:45 20 16 16 97 94 07/07/19 07:16 94 07/07/19 07:10 127/78 98 07/07/19 04:00 116/68 94 Pulse Ox 07/07/19 10:59 07/07/19 09:56 07/07/19 09:45 93 07/07/19 07:16 07/07/19 07:10 07/07/19 04:00
--- NOTE | 2019-07-08 17:48 | Discharge Summary ---
Date of Service July 08, 2019 Admission HPI Per Admitting Provider CHIEF COMPLAINT: Severe pain in the right lower extremity, chest pain and shortness of breath. HISTORY OF PRESENT ILLNESS: This is a 68-year-old female with past medical history significant for thrombectomy and femoral-femoral bypass, patch angioplasty of distal anastomosis of the right femoral on 11/06/2018, CAD status post stent, history of stroke, hypertension, hyperlipidemia, diabetes, COPD, tobacco abuse, Pendleton's esophagitis, who lives alone, walks without any support, comes because of severe pain, right lower extremity for the last few days. Today she also noticed some chest pain and shortness of breath and having some cough with grayish whitish phlegm. Denies any fever, chills. After giving the nebs treatment in the ER, the chest pain almost resolved. She says had mild headache today and is getting better. She has felt dizzy today. She has chronic right ear pain, has some runny nose for the last couple of days. No sore throat, was nauseous and has some mild abdominal discomfort. She says she has some blackish stools today, she says she had history of stomach bleeds in the past. Having frequent urination and some burning sensation.Denies any rash. Currently, resting comfortably and hemodynamically stable. Admission Exam Per Admitting Provider GENERAL: The patient is of moderate build, not in acute distress. VITAL SIGNS: Temperature 36.5, pulse 84, respiratory rate 23, blood pressure 127/67, oxygen 100% room air. HEENT: Pupils equal, round, reactive to light. NECK: No neck masses. Supple. CARDIOVASCULAR: S1, S2 heard, regular rate and rhythm, no murmur, no gallop. RESPIRATORY SYSTEM: Normal AP diameter. No accessory muscle use. No wheezing, no crackles. ABDOMEN: Soft, bowel sounds present. Mild abdominal discomfort. No guarding. No rigidity. CENTRAL NERVOUS SYSTEM: Cranial nerves II-XII grossly intact, nonfocal. EXTREMITIES: Right lower extremity is slightly swollen and some mild erythema on the right foot which patient says is new. Principal Diagnosis Elevated troponin Precordial chest pain COPD exacerbation Cellulitis of right lower extremity: Right upper lobe pulmonary nodule: PVD (peripheral vascular disease): Diabetes Discharge Exam General- No acute distress Head- atraumatic Eyes- PERRL, EOMI, ENT- oropharynx clear Neck- supple, no JVD Lungs- +No wheezing Heart- regular rhythm Abdomen- normal bowel sounds, soft, nontender Extremities- no calf tenderness, +RLE tenderness, +edema Neuro- alert, oriented x 3; PERRL, EOMI; no facial palsy; no dysarthria Skin- warm & dry Discharge Data Allergies Allergy/AdvReac Type Severity Reaction Status Date / Time methadone Allergy Severe "couldn't Verified 03/21/19 18:20 swallow/eyes coming out of head" nickel Allergy Severe swelling Verified 03/21/19 18:20 and infections nitroglycerin Allergy Intermediate DECREASED Verified 03/21/19 18:20 BP propoxyphene Allergy Intermediate edema to Verified 03/21/19 18:20 face/lips/tongue diclofenac Allergy Mild Rash Verified 03/21/19 18:20 hydrocodone Allergy Mild "severe Verified 03/21/19 18:20 constipation" levofloxacin [From Levaquin] Allergy Mild nausea/vomi Verified 03/21/19 18:20 ting mushroom Allergy Mild nausea/abd Verified 03/21/19 18:20 pain onion Allergy Mild nausea/vomi Verified 03/21/19 18:20 ting Penicillins Allergy Mild severe Verified 03/21/19 18:20 diarrhea/rash pine nut Allergy Mild Rash Verified 03/21/19 18:20 sitagliptin [From Januvia] Allergy Mild rash Verified 03/21/19 18:20 "blood blisters" strawberry Allergy Mild Diarrhea Verified 03/21/19 18:20 Consultations 07/02/19 20:05 ED Decision to Admit Stat 07/02/19 22:03 Consult Case Management - Discharge Planning Routine 07/03/19 08:00 Consult Cardiology Routine Consult Pulmonology Routine Procedures Performed Operation Date: 07/05/19 09:30 <No data on this case meets the specified criteria> Ordered Studies 07/02/19 16:21 US arterial duplex LE RT Stat US venous doppler LE RT Stat 07/02/19 18:35 CT angio chest PE protocol Stat SINGLE VIEW CHEST CLINICAL HISTORY: Atypical chest pain. FINDINGS: An AP, portable, upright chest radiograph is compared to chest x-ray and chest CT dated 11/16/2018. The heart is top normal for projection noting atherosclerotic calcification of the thoracic aorta. The pulmonary vasculature is noncongested. Emphysema and chronic interstitial thickening are similar to previous. There is bibasilar scarring/atelectasis. No airspace consolidation or large pleural effusion is identified. Numerous small pulmonary nodules seen by CT on 11/16/2018 are not apparent by x-ray. No pneumothorax is seen. The skeletal structures are osteopenic. There are numerous healed left-sided rib fractures. Degenerative change is noted in the thoracic spine and shoulders. IMPRESSION: Emphysematous change with no acute cardiopulmonary abnormality. ACT 112: Negative or not required by law. Electronically signed by: Mak Skelton M.D. 07/02/2019 5:17 PM Dictated: 07/02/191714 Transcribed: 07/02/191714 ULTRASOUND RIGHT LOWER EXTREMITY ARTERIAL; ANKLE-BRACHIAL INDICES CLINICAL HISTORY: Right leg swelling. COMPARISON STUDY: Right lower extremity arterial ultrasound dated 03/21/2019. FINDINGS: Real-time, grayscale, and color Doppler sonography of the arteries of the right lower extremity is performed from the inguinal crease to the foot. Ankle brachial indices are assessed. FINDINGS: Ankle-brachial indices: Right brachial pressure measures 154. Pressures in the right posterior tibial artery measure 97 for an FABIANA of 0.63, and pressures in the right dorsalis pedis measure 73 for an FABIANA of 0.47. Pressures in the left posterior tibial artery measure 126 for an FABIANA of 0.82, and pressures in the left dorsalis pedis measure 86 for an FABIANA of 0.56. Right lower extremity: There is advanced atherosclerotic plaque identified throughout the arteries of the right lower extremity. A [id number] femorofemoral bypass graft is patent. The distal common femoral artery is patent with triphasic arterial waveforms. Velocities within the distal common femoral artery measure up to 59 cm/s. The profunda femoris artery is patent with velocities measuring up to 101 cm/s. There are biphasic to triphasic waveforms seen throughout the right superficial femoral artery. Velocities in the superficial femoral artery measure up to 167 cm/s. There are triphasic waveforms in the popliteal artery with velocities measuring up to 96 cm/s. The calf arteries are diminutive. There is three-vessel runoff to the foot. Velocities in the calf arteries measure up to 65 cm/s. The dorsalis pedis artery is patent with velocities measuring up to 63 cm/s. IMPRESSION: 1. A femorofemoral arterial bypass is patent. 2. The right lower extremity arteries are patent. There is no sonographic evidence of focal/high-grade stenosis. 3. The calf arteries are diminutive but appear patent. 4. Ankle brachial indices as above. Dictated: 07/02/2019 6:21 PM Transcribed: 07/02/2019 6:49 PM Jovanna [id number] [facility] Electronically signed by: Mak Skelton M.D. 07/02/2019 6:50 PM Dictated: 07/02/19 1821 Transcribed: 07/02/196 ULTRASOUND RIGHT LOWER EXTREMITY VENOUS CLINICAL HISTORY: Right lower extremity swelling. COMPARISON STUDY: Right lower extremity venous ultrasound dated 11/17/2018. TECHNIQUE: Real-time, grayscale, and color Doppler sonography of the deep veins of the right lower extremity was performed from the inguinal crease to the calf. Compression and augmentation were utilized. FINDINGS: There is no sonographic evidence of deep venous thrombosis identified in the right lower extremity. The common femoral, superficial femoral, and popliteal veins are patent and normally compressible. The greater saphenous vein and the profunda femoris vein at the junction with the common femoral vein are clear. The visualized calf veins are patent. IMPRESSION: There is no sonographic evidence of deep venous thrombosis identified in the right lower extremity. ACT 112: Negative or not required by law. Electronically signed by: Mak Skelton M.D. 07/02/2019 6:21 PM Dictated: 07/02/191819 Transcribed: 07/02/191819 CT ANGIOGRAM OF THE CHEST CLINICAL HISTORY: Atypical chest pain. Dyspnea. COMPARISON STUDY: Chest x-ray dated 07/02/2019. Chest CT dated 11/16/2018. TECHNIQUE: Following the IV administration of 120 cc of Optiray 320, CT angiogram of the chest was performed from the upper abdomen to the thoracic inlet utilizing the pulmonary embolus protocol. Images are reviewed in the axial, sagittal, and coronal planes. 3-D MIPS images are created and assessed. IV contrast was administered without complication. A dose lowering technique was utilized adhering to the principles of ALARA. CT DOSE: 606.12 mGy.cm FINDINGS: Thyroid: Imaged portions of the thyroid gland are normal in size and attenuation. Thoracic aorta: There is atherosclerotic calcification of the thoracic aorta, which is normal in caliber and demonstrates standard 3-vessel arch anatomy. No dissection is seen. There is moderate stenosis at the origin of the left subclavian artery. Pulmonary vasculature: The pulmonary trunk is normal in caliber. There are no filling defects identified in main, lobar, or segmental pulmonary branches to suggest pulmonary embolus. Heart: The heart is top normal in size and without pericardial effusion. The coronary arteries are densely calcified. Lungs and pleural spaces: Emphysematous change is noted. There is a 1.5 cm spiculated nodule in the subpleural right upper lobe seen on image #188. There are 4 mm right lower lobe pulmonary nodules seen on images #150 and #133. There are numerous additional 2 to 3 mm pulmonary nodules scattered throughout both lungs. Several of the nodules seen on 11/16/2018 have resolved. No airspace consolidation or pleural effusion is identified. There is mild diffuse intralobu lar septal thickening. The trachea and central airways are clear. There is mild diffuse peribronchial thickening. Mediastinum: There is no mediastinal lymphadenopathy. Allyson: Clear. Axillae: There is no axillary lymphadenopathy. Upper abdomen: Partially visualized upper abdominal viscera is within normal limits. Skeletal structures: The skeletal structures are osteopenic. Degenerative change is noted in the shoulders and thoracic spine. There are numerous healed left- sided rib fractures. No lytic or blastic bony lesions are seen. IMPRESSION: 1. There is no evidence of pulmonary embolus in the main, lobar, or segmental pulmonary arteries. 2. There is no airspace consolidation or pleural effusion. 3. Emphysema. 4. Diffuse intralobular septal thickening suggests congestive failure. Clinical correlation will be required. 5. There is a 15 mm spiculated nodule in the right upper lobe which has modestly increased in size as compared to 11/16/2018. 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 6. Additional subcentimeter pulmonary nodules as above. These have decreased in size and number as compared to 11/16/2018 and may be on an inflammatory basis. Continued attention at follow-up is advised. ACT 112: Negative or not required by law. Electronically signed by: Mak Skelton M.D. 07/02/2019 7:23 PM Dictated: 07/02/191914 Transcribed: 07/02/191914 XR ankle RT min 3V routine CLINICAL HISTORY: 68 years-old Female presenting with right ankle pain. TECHNIQUE: Frontal, mortise, and lateral views of the right ankle were obtained. COMPARISON: None. FINDINGS: Ankle mortise congruent. No acute fracture or malalignment. No advanced degenerative change. Diffuse moderate soft tissue swelling greatest over the lateral malleolus. Atherosclerosis. IMPRESSION: No acute osseous injury. ACT 112: Negative or not required by law. Electronically signed by: Chandler Mendoza M.D. 07/06/2019 11:03 AM Dictated: 07/06/19 110 Transcribed: 07/06/19 110 Date of Service July 06, 2019 Myocardial Perfusion Study Blk Myocardial Perfusion Study Report PA Act 112: Negative Procedure: 1. Myocardial perfusion study performed in multiple views/images 2. Lexiscan pharmacologic stress ECG Indications: 1. Recent chest discomfort, mild troponin elevation 2. History of coronary heart disease Ordering physician: Nnamdi Martell DO, [facility] Procedural details: For the stress portion of the study, Lexiscan 0.4 mg was intravenously administered followed by a saline flush. This was followed by 32.1 mCi of technetium 99m Cardiolite, injected at 9:45 AM on 07/06/2019. 30 minutes following the injection, imaging of the heart was performed in multiple projections. For the rest portion of the study, 10.2 mCi technetium 99m Cardiolite was injected intravenously at 7:50 AM on 07/06/2019. 1 hour following the injection, imaging of the heart was performed in the same projections. Lexiscan stress ECG: Resting ECG demonstrated: Sinus rhythm at [address] segments were normal on the resting ECG. Maximum heart rate: 105 bpm Maximal, age-predicted heart rate: 69 % Resting blood pressure: 109/58 mmHg Maximum blood pressure: 109/[address] changes: None Arrhythmia: None Symptoms: Mild cough and lightheadedness was reported with the administration of Lexiscan that resolved in the post stress recovery interval. No symptoms suggestive of angina were reported or observed. Findings: Rotating raw imaging demonstrated no significant lung uptake. There is no significant motion artifact. Heart size appeared normal. There was tracer uptake adjacent to the inferior wall, but the images were satisfactory for interpretation. Stress SPECT images revealed a small sized perfusion defect of mild intensity encompassing the basal inferior wall with normal perfusion to the remaining myocardium. Resting SPECT images revealed a persistent small sized perfusion defect of mild intensity encompassing the basal inferior wall. Ejection fraction: 69% Wall motion: Akinesis of the basal inferior segment, otherwise normal No significant transient ischemic dilation. Impression: 1. There is a small sized fixed perfusion defect limited to the basal segment of the inferior wall with normal perfusion to the remaining myocardial segments on both the stress and rest images. Findings are consistent with sized scar of the basal inferior wall, which correlates well with the patient's echocardiographic findings. There is no evidence of superimposed ischemia. 2. Gated SPECT images revealed normal wall motion and the remaining myocardial segments, calculated LVEF 69%. These results were discussed with the patient by the undersigned interpreting physician at just after 2 PM on 07/06/2019. Ongoing risk factor modification and medical management is recommended. Signed By:<Electronically signed by Nnamdi Martell DO>{f rep sign date/time1] Created/Dictated: 07/06/191408 Transcribed: 07/06/191408 Hospital Course (1) Elevated troponin: (2) Precordial chest pain: Present on admission with chest pain Troponin on admission 0.082 that peaked to 0.694, now trending down 0.560 EKG showed no acute ischemic changes ECHO showed on 07/02 revealed normal LV systolic function, but the regional wall motion was poorly delineated Currently denies any chest pain Nuclear stress test done today instead to proceed to cardiac cath due to pt high risk and complication from previous interventions Nuclear stress test showed no evidence of inducible ischemia Continue medication therapy/risk factor modification with aspirin, statin, plavix and carvedilol Follow up with cardiology Ok from cardiology standpoint to discharge home (3) COPD exacerbation: CXR showed diffuse emphymatous changes , no evidence of infiltrate or effusion Doxycycline was discontinued Pulmonolgy on board On IV Solumedrol TID, will transition to oral tomorrow Will taper prednisone to 20mgx 3 days Pulmonology on board Continue neb treatment Refused to get the ABG done because it is painful Overnight pulse oximetry done and pt required 2L oxygen at night 2 step exercise done and pt does not require oxygen with ambulation (4) Cellulitis of right lower extremity: Venous Doppler of LE showed no sonographic evidence of deep venous thrombosis identified in the right lower extremity Arterial doppler femorofemoral arterial bypass is patent. The right lower extremity arteries are patent. There is no sonographic evidence of focal/high- grade stenosis.The calf arteries are diminutive but appear patent. Swelling improved Continue to have RLE tenderness On IV rocephin, will change to keflex PO Will complete Keflex course Clinically improves (5) Right upper lobe pulmonary nodule: CT chest showed 15mm spiculated nodule noted in rt upper lobe increased since compared to 11/16/2018 Pulmonology on board recommended outpatient PET scan PFT for lung function reserve -may need lobectomy vs radiation tx pt will be seen at Pulmonology clinic as out patient (6) PVD (peripheral vascular disease): Hx of severe PVD s/p femoral -poplitial bypass by Dr Jara in 2019 lower ext arterial doppler shows -patent fermoal -femoral arterial bypass without evidence of high grade focal arterial stenosis Case discussed with vascular Dr. Jara that does not thing her pain is related to peripheral artery disease since the femoral artery bypass is patent Sent message to Vascular office Dr. Jara to schedule her with Dr. Jara once discharges Right ankle pain Ankle xray showed no acute fracture or malalignment. No advanced degenerative change. Diffuse moderate soft tissue swelling greatest over the lateral malleolus. Pain improves significantly Continue tramadol prn for pain Diabetes Most recent Hba1c 6.8 On Lantus and novolog sliding scale Consider to disontinue Pioglitazone due to her cardiac history, will defer to PCP Pt said that she cannot tolerate Metformin and Januvia Not interested on any subq diabetes medication Continue monitor BS CODE STATUS FULL CODE DVT PROPHYLAXIS on subq heparin Disposition Possible discharge today Total Time Total Time Spent Total Time Spent (In Minutes): 35 minutes Total Time Includes: Examination of the Patient, Discharge Planning, Medication Reconciliation, Communication With Other Providers and Other Discharge Plan Discharge Items Patient Disposition: Home - Self-Care Reason For Visit: RIGHT LOWER EXTREMITY PAIN Discharge Diagnosis: Elevated troponin Precordial chest pain COPD exacerbation Cellulitis of right lower extremity: Right upper lobe pulmonary nodule: PVD (peripheral vascular disease): Diabetes Condition on Discharge: Good Activity: Resume your previous activity Non-emergency contact: Primary Care Provider, Specialist, Graduate Engineer and [employer] Developer Call non-emergency contact if: you have any medication questions, your symptoms worsen and your rectal temperature is above 100.4 Follow-up/Referrals: Courtney Restrepo MD [Primary Care Provider] - Diet: Carb Consistent or DM2 and Heart Healthy Addtl Attending Provider Instructions: Follow up with your primary care provider (Office will call you for the appointment) Follow up with pulmonology for the right lung mass for further evaluation and to arrange for PET/CT scan (please call to schedule for the appointment) Follow up with your vascular surgery Dr. Jara to evaluate for the right lower extremity pain Follow up with your cardiology Dr. Chapa Continue 2L oxygen supplement at night Fall precaution Your physician will consider to change the Piogliazone to an alternate diabetes medication due to your cardiac history (Please Monitor your blood sugar) Complete the course of the antibiotic with Keflex Do not drive while you taking tramadol due to drowsiness and lethargy Pending Studies at Discharge: No Stand-Alone Forms: My [facility], Smoking Cessation Medications and DC Order Prescriptions: New Breo Ellipta 100-25 mcg/dose Blister With Device 1 ea inhalation DAILY Qty: 28 RF: 0 Incruse Ellipta 62.5 mcg/actuation Blister With Device 1 inh inhalation DAILY Qty: 30 RF: 0 cephalexin 500 mg Capsule 500 mg PO BID 3 Days Qty: 6 RF: 0 prednisone 20 mg Tablet 20 mg PO DAILY Qty: 3 RF: 0 Continued carvedilol 3.125 mg tablet 3.125 mg PO BID RF: 0 atorvastatin 40 mg tablet 40 mg PO QPM RF: 0 glipizide 10 mg tablet 10 mg PO BID RF: 0 clopidogrel 75 mg tablet 75 mg PO QAM RF: 0 aspirin 81 mg Tablet,Delayed Release (Dr/Ec) 81 mg PO QAM RF: 0 pioglitazone 30 mg tablet 30 mg PO QAM RF: 0 fluticasone propionate 50 mcg/actuation spray,suspension 1 spray intranasal DAILY PRN (Reason: Nasal Congestion) RF: 0 loratadine 10 mg tablet 10 mg PO QAM RF: 0 buspirone 15 mg tablet 15 mg PO BID RF: 0 docusate sodium 100 mg Capsule 100 mg PO BID Qty: 60 RF: 0 polyethylene glycol 3350 [Miralax] 17 gram Powder In Packet 17 g PO DAILY PRN (Reason: Constipation) Qty: 30 RF: 0 albuterol sulfate [Ventolin HFA] 90 mcg/actuation Hfa Aerosol Inhaler 2 puff INHALATION Q4 PRN (Reason: Shortness Of Breath) RF: 0 gabapentin 300 mg Capsule 300 mg PO TID RF: 0 tramadol 50 mg Tablet 50 mg PO Q6H RF: 0 dicyclomine 10 mg Capsule 10 mg PO TID PRN (Reason: Abdominal Pain) RF: 0 cyclobenzaprine 10 mg tablet 10 mg PO HS PRN (Reason: Spasms) RF: 0 acetaminophen 325 mg Tablet 650 mg PO QID PRN (Reason: Pain) RF: 0 sucralfate [Carafate] 1 gram Tablet 1 g PO ACHS RF: 0 calcium carbonate [Calcium 600] 600 mg calcium (1,500 mg) Tablet 600 mg PO TID RF: 0 pantoprazole 40 mg Tablet,Delayed Release (Dr/Ec) 40 mg PO DAILY RF: 0 furosemide 20 mg tablet 10 mg PO QAM PRN (Reason: Dyspnea) RF: 0 ondansetron 4 mg Tablet,Disintegrating 4 mg PO Q8H PRN (Reason: Nausea) RF: 0 lisinopril 2.5 mg tablet 2.5 mg PO DAILY RF: 0 cholecalciferol (vitamin D3) 125 mcg (5,000 unit) Tablet 5,000 unit PO DAILY RF: 0 Discontinued fluticasone propionate 110 mcg/actuation Hfa Aerosol Inhaler 2 puff INHALATION BID RF: 0 Discharge Orders: Discharge Order (Routine); Ordered 07/07/19 Ordered By: Roman Calhoun/Other Patient Handouts: Hyperglycemia, Hypoglycemia, Diabetes Type 2 Managing Admission Data Admit Date/Time: 07/02/19 21:22 Attending Provider: Roman Rivera Admit Provider: Giovani Hernandez Primary Care Provider: Courtney Restrepo Other Providers: Giovani Hernandez ; Rich Andre ; Nnamdi Martell ; Ti Torres ; Tjea Case ; SammiKyle barbour ; Vinod Moss ; Krystle Turner ; Jovanna Alejandra ; Magdi Segal ; Nina Sinha ; Zita Nino. Other Interventions: Discharge Summary Assessment (RN) Last Done: 07/07/19 13:21 DC Date/Time DO NOT enter until pt leaves facility: 07/07/19 14:30
== END 2019-07-07 14:30 | disposition home or self-care (01) | DRG 191 ==
LOC: ED 15:47 → 2N 21:22 → SUATTDRO 21:22 → 2N 21:50

== ENCOUNTER 2022-12-13 12:27 | Inpatient (IN) ==
[2022-12-13] MEDS ORDERED: PIPERACILLIN/TAZOBACTAM 4.5 GM/100 ML BAG IV ONE (13:13)
[2022-12-13 13:29] LABS: Basophils # (auto) 0.02 K/uL (0.00-0.20); Basophils % (auto) 0.2 %; Eosinophils # (auto) 0.08 K/uL (0.00-0.50); Eosinophils % (auto) 0.9 %; Hematocrit (blood only) 29.2 % (37.0-47.0); Hemoglobin 9.2 g/dl (12.0-16.0); Immature Granulocytes # (auto) 0.02 K/uL (0.01-0.20); Immature Granulocytes % (auto) 0.2 %; Lymphocytes # (auto) 0.89 K/uL (1.20-3.40); Lymphocytes % (auto) 10.2 %; Mean Corpuscular Hemoglobin 28.9 pg (25.0-34.0); Mean Corpuscular Hgb Conc 31.5 g/dL (32.0-36.0); Mean Corpuscular Volume 91.8 fL (80.0-100.0); Mean Platelet Volume 10.1 fL (9.4-12.4); Monocytes # (auto) 0.47 K/uL (0.11-0.59); Monocytes % (auto) 5.4 %; Neutrophils # (auto) 7.21 K/uL (1.40-6.50); Neutrophils % (auto) 83.1 %; Platelet Count 312 K/uL (130-400); RDW Coefficient of Variation 15.4 % (11.5-14.5); RDW Standard Deviation 50.6 fL (36.4-46.3); Red Blood Count 3.18 M/uL (4.20-5.40); White Blood Count 8.69 K/ul (4.8-10.8)
--- NOTE | 2022-12-13 13:40 | Emergency Department Note ---
Impression & Plan SOB (shortness of breath), CHF (congestive heart failure) ED Provider Note INFORMANT: Patient and family ED PROVIDER(S): Santino Gallegos MD CHIEF COMPLAINT: Shortness of PLAN: Disposition: Admitted Outpatient prescription management: none Referral: None MEDICAL DECISION MAKING: patient presented due to shortness of breath. She has a complicated medical history. A work-up was initiated. Patient was found to have marked elevation of her BNP. Her CBC showed a normal white blood cell count but mild anemia. Chemistry panel was unremarkable. Patient had a COVID positive on bio fire testing. Patient's ECG did not show any ischemia. Chest x-ray showed some dependent atelectasis. Radiology question some possible infiltrate. Patient does not have a fever or leukocytosis and in light of her COVID diagnosis pneumonia felt to be less likely. Patient's daughter noted that her primary physician increased the patient's Lasix to 60 mg daily for the last 3 days. Despite this the patient is having continued shortness of breath. Patient was given 60 mg of IV Lasix. I discussed further management in the hospital with the [facility] hospitalist service. Patient and daughter were in agreement. Consultation was made with the [facility] hospitalist service. Patient was evaluated in the ER admitted for further management Care/management discussed with: Discussed with the case checker Level of care consideration(s): After review of the information above and other included data, I feel the patient requires admission Triage Nursing notes: reviewed and agree them. Vital Signs: reviewed and remarkable for no significant abnormalities Additional History obtained from: Patient's daughter regarding the medication change with Lasix. Chronic Medical/Social Conditions affecting care: hypertension, CVA, diabetes Prior /Outside records reviewed: none Differential Diagnosis: Reactive airway disease, pneumonia, pneumothorax, COPD, CHF, infections, cardiac ischemia, pulmonary embolism, musculoskeletal, gastrointestinal, as well as other pathologies. Diagnostics, independently interpreted by me: ECG: Twelve-lead ECG reveals sinus rhythm with sinus arrhythmia at 70 bpm. PVCs present. No [address] elevation. No TWI.. Cardiac Monitoring: Cardiac monitoring ordered by me: The patient was placed on continuous cardiac monitoring and observed. It revealed a normal sinus rhythm at 87 beats per minute without ectopy or evidence of dysrhythmia. Medical decision rules: none Imaging studies: Chest x-ray as above HPI: The patient is a 72-year-old female who arrives for evaluation of shortness of breath. Patient notes that her shortness of breath has been worsening over the last few days. Patient was recently in [facility] for vascular surgery. She had a cardiac arrest and also had COVID-19. Patient also has a history of COPD and CHF. She is dealing with a wound VAC on the lower abdomen and getting IV Zosyn every 6 hours. Patient does use supplemental oxygen at home. Denies any leg swelling. Patient is on Plavix. Patient is not on any other anticoagulation. Patient also notes generalized weakness. Pt denies LOC, headache, fevers, chills, diaphoresis, visual changes, neck pain, chest pain, nausea, vomiting, abdominal pain, back pain, melena, hematochezia, urinary symptoms, numbness, lymphadenopathy, rash, or other complaints. PAST MEDICAL HISTORY: See Below, hypertension, CVA, diabetes, GI bleed, cardiac arrest PAST SURGICAL HISTORY: See Below, hysterectomy SOCIAL HISTORY: See Below, retired HOME MEDICATIONS: See Below ALLERGIES: See Below VITALS: See Below PHYSICAL EXAMINATION: GENERAL: Awake, alert, mildly dyspneic-appearing, in no distress HENT: Normocephalic, atraumatic. Oropharynx unremarkable. EYES: Normal conjunctiva. Sclera non-icteric. NECK: Inspection normal. Non-tender. Supple. No nuchal rigidity. FROM. No masses. RESPIRATORY: Clear to auscultation. No wheezes. No rales. Normal respiratory effort. CARDIAC: Normal rate. Normal rhythm. No murmurs. No rubs. Extremities warm and well perfused. Pulses equal. No JVD. GI: Soft, non-distended. Mild left lower tenderness to palpation. No rebound or guarding. Wound VAC in place in the left lower abdomen. RECTAL: Deferred. MUSCULOSKELETAL: Atraumatic. Chest examination reveals no tenderness. The back is kyphotic on inspection without obvious abnormality. No joint edema. LOWER EXTREMITIES: Calves are equal size bilaterally and non-tender. No edema. No discoloration. NEURO: Normal sensorium. No sensory or motor deficits noted. SKIN: No rash or jaundice noted. PROCEDURES: none CRITICAL CARE: none OBSERVATION NOTE: none Past Med/Surg History Medical History (Updated 12/13/22 @ 20:27 by Santino Gallegos MD) Anemia Anxiety [place] esophagus COPD (chronic obstructive pulmonary disease) inhaler prn Coronary artery disease, occlusive Critical limb ischemia with history of revascularization of same extremity RLE CVA (cerebral vascular accident) 2008--slight left side weakness (no assistive devices)--follows with Dr. Astudillo Diabetes mellitus, type II Emphysema lung GI bleed Glaucoma bilt eyes HTN (hypertension) Hyperlipidemia Myocardial infarction x2 2000/2003--currently does not have a vegetable cutter Obesity (BMI 30.0-34.9) On anticoagulant therapy plavix daily Osteoarthritis PVD (peripheral vascular disease) Right upper lobe pulmonary nodule Surgical History H/O: hysterectomy History of appendectomy History of bilateral cataract extraction History of bilateral tubal ligation History of bronchoscopy History of cardiac cath x2 both @ [place]--2000 with 1 stent/2003--no stent, instead fem-pop bypass History of carotid endarterectomy 2009 on right side History of colonoscopy with polypectomy History of dilatation and curettage x3 History of endoscopic sinus surgery History of esophagogastroduodenoscopy (EGD) History of heart artery stent x1 before 2000? @ [place] History of repair of right rotator cuff x2 History of tooth extraction most teeth Status post femoral-popliteal bypass surgery 2004 Status post femoropopliteal bypass surgery 11/06/[address] Jara---thrombectomy/Femoral-femoral bypass Family History Sister Family history of diabetes mellitus Family history of esophageal cancer Family hx of colon cancer Sister Family history of diabetes mellitus Sister Family history of diabetes mellitus Sister Family history of diabetes mellitus Sister Family history of diabetes mellitus Sister Family history of diabetes mellitus Sister Family history of diabetes mellitus Brother Family history of diabetes mellitus Brother Family history of diabetes mellitus Brother Family history of diabetes mellitus Other Diabetes No family history of adverse response to anesthesia Stroke Social History Smoking Status: Former smoker Tobacco Type: Cigarettes Cigarettes Per Day: 20-40; Second Hand Exposure: Yes; Do You Dip or Chew Tobacco: No; Hx Alcohol Use: No Hx Substance Use: No Preferred Language: Hungarian Communication Ability: Effective Family Worker Required: No Beliefs That Will Affect Care: None Current Living Situation: Alone Current Living Situation Comment: Lives with daughter Feels Safe at Home: Yes Assistive Devices: None Allergies Allergies Allergy/AdvReac Type Severity Reaction Status Date / Time methadone Allergy Severe "couldn't Verified 12/13/22 16:53 swallow/eyes coming out of head" nickel Allergy Severe swelling Verified 12/13/22 16:53 and infections nitroglycerin Allergy Intermediate DECREASED Verified 12/13/22 16:53 BP propoxyphene Allergy Intermediate edema to Verified 12/13/22 16:53 face/lips/tongue diclofenac Allergy Mild Rash Verified 12/13/22 16:53 hydrocodone Allergy Mild "severe Verified 12/13/22 16:53 constipation" levofloxacin [From Levaquin] Allergy Mild nausea/vomi Verified 12/13/22 16:53 ting mushroom Allergy Mild nausea/abd Verified 12/13/22 16:53 pain onion Allergy Mild nausea/vomi Verified 12/13/22 16:53 ting Penicillins Allergy Mild severe Verified 12/13/22 16:53 diarrhea/rash pine nut Allergy Mild Rash Verified 03/21/19 18:20 sitagliptin [From Januvia] Allergy Mild rash Verified 03/21/19 18:20 "blood blisters" strawberry Allergy Mild Diarrhea Verified 03/21/19 18:20 Home Meds Home Medications Medication Instructions Recorded Confirmed aspirin 81 mg tablet,delayed 81 mg PO QAM 11/06/18 12/13/22 release atorvastatin 40 mg tablet 40 mg PO QPM 11/06/18 12/13/22 buspirone 15 mg tablet 15 mg PO BID 11/06/18 12/13/22 clopidogrel 75 mg tablet 75 mg PO QAM 11/06/18 12/13/22 glipizide 10 mg tablet 10 mg PO QAM 11/06/18 12/13/22 loratadine 10 mg tablet 10 mg PO QAM 11/06/18 12/13/22 albuterol sulfate 90 mcg/actuation 2 puff inhalation Q4 PRN Shortness 11/16/18 12/13/22 aerosol inhaler (Ventolin HFA) Of Breath dicyclomine 10 mg capsule 10 mg PO TID PRN Abdominal Pain 01/11/19 12/13/22 calcium carbonate 600 mg calcium 600 mg PO BID 03/21/19 12/13/22 (1,500 mg) tablet (Calcium) cholecalciferol (vitamin D3) 125 5,000 unit PO BID 03/21/19 12/13/22 mcg (5,000 unit) tablet furosemide 20 mg tablet 40 mg PO QAM 03/21/19 12/13/22 ondansetron 4 mg disintegrating 4 mg PO Q8H PRN Nausea 03/21/19 12/13/22 tablet pantoprazole 40 mg tablet,delayed 40 mg PO DAILY 03/21/19 12/13/22 release sucralfate 1 gram tablet (Carafate) 1 g PO ACHS 03/21/19 12/13/22 Bifidobacterium infantis 4 mg 4 mg PO DAILY 12/13/22 12/13/22 capsule (Align) Zosyn Iv 1 dose IV TID 12/13/22 12/13/22 ascorbic acid (vitamin C) 500 mg 500 mg PO DAILY 12/13/22 12/13/22 tablet (Vitamin C) docusate sodium 50 mg capsule 50 mg PO HS 12/13/22 12/13/22 duloxetine 30 mg capsule,delayed 30 mg PO AMHS 12/13/22 12/13/22 release fluconazole 200 mg tablet 400 mg PO QAM 12/13/22 12/13/22 fluticasone fur. 100 mcg-umeclid 1 inh inhalation DAILY 12/13/22 12/13/22 62.5 mcg-vilant 25 mcg inhalat.powder (Trelegy Ellipta) glipizide 10 mg tablet 5 mg PO QPM 12/13/22 12/13/22 ipratropium 0.5 mg-albuterol 3 mg 3 ml inhalation Q4 PRN Shortness 12/13/2205/06 (2.5 mg base)/3 mL nebulization Of Breath Or Wheezing soln lidocaine 4 % topical patch 1 patch topical DAILY PRN Pain 12/13/22 12/13/22 menthol 0.44 %-zinc oxide 20.6 % 1 applic topical DIRECTED PRN 12/13/22 12/13/22 topical ointment (Calmoseptine) Sores on bottom metoprolol succinate 50 mg 50 mg PO QAM 12/13/22 12/13/22 tablet,extended release 24 hr nicotine 14 mg/24 hr daily 1 patch transdermal DAILY 12/13/22 12/13/22 transdermal patch nystatin 100,000 unit/gram topical 1 applic topical TID 12/13/22 12/13/22 powder (Nyamyc) potassium chloride 20 mEq 20 meq PO .DAILY UD 12/13/22 12/13/22 tablet,extended release(part/cryst) zinc 50 mg tablet 50 mg PO DAILY 12/13/22 12/13/22 Previous Rx's Medication Instructions Recorded oxycodone 5 mg tablet 5 mg PO Q6H PRN pain #14 tabs 10/25/19 Results & Data (ED) Vital Signs Vital Signs - 24 hr 12/13/22 12:33 12/13/22 12:57 12/13/22 13:14 Temperature 36.7 C Temperature Source Skin Pulse Rate 73 Pulse Rate [Apical] Respiratory Rate 20 Respiratory Effort / Characteristics Respiratory Depth Respiratory Pattern Blood Pressure 108/59 L Blood Pressure [Left Arm] Blood Pressure Mean 75 Blood Pressure Mean [Left Arm] Pulse Oximetry 92 Oxygen Delivery Method Nasal Cannula Oxygen Flow Rate 2 Sepsis Recent Fever Within 48 Hours No Sepsis New/Unexplained Change in Mental Status No Sepsis Action Taken by Nursing No Action Required 12/13/22 13:14 12/13/22 13:14 12/13/22 15:00 Temperature Temperature Source Pulse Rate 71 Pulse Rate [Apical] 71 66 Respiratory Rate 22 22 22 Respiratory Effort / Characteristics Respiratory Depth Respiratory Pattern Blood Pressure Blood Pressure [Left Arm] 102/66 102/66 Blood Pressure Mean Blood Pressure Mean [Left Arm] 78 78 Pulse Oximetry 94 93 97 Oxygen Delivery Method Nasal Cannula Nasal Cannula Nasal Cannula Oxygen Flow Rate 2 2 Sepsis Recent Fever Within 48 Hours Sepsis New/Unexplained Change in Mental Status Sepsis Action Taken by Nursing 12/13/22 16:50 12/13/22 17:00 12/13/22 19:00 Temperature Temperature Source Pulse Rate 77 Pulse Rate [Apical] 77 87 Respiratory Rate 19 22 Respiratory Effort / Characteristics Non-Labored Respiratory Depth Normal Respiratory Pattern Regular Blood Pressure Blood Pressure [Left Arm] 117/77 118/81 Blood Pressure Mean Blood Pressure Mean [Left Arm] 90 93 Pulse Oximetry 96 96 Oxygen Delivery Method Nasal Cannula Nasal Cannula Oxygen Flow Rate 2 2 Sepsis Recent Fever Within 48 Hours Sepsis New/Unexplained Change in Mental Status Sepsis Action Taken by Nursing Laboratory Data 12/13/22 13:02 12/13/22 13:02 Lab Results 12/13/22 12/13/22 12/13/22 Range/Units 13:02 13:02 13:02 WBC 8.69 (4.8-10.8) K/ul RBC 3.18 L (4.20-5.40) M/uL Hgb 9.2 L (12.0-16.0) g/dl Hct 29.2 L (37.0-47.0) % MCV 91.8 (80.0-100.0) fL MCH 28.9 (25.0-34.0) pg MCHC 31.5 L (32.0-36.0) g/dL RDW Std Deviation 50.6 H (36.4-46.3) fL RDW Coeff of Shahrzad 15.4 H (11.5-14.5) % Plt Count 312 (130-400) K/uL MPV 10.1 (9.4-12.4) fL Immature Gran % (Auto) 0.2 % Neut % (Auto) 83.1 % Lymph % (Auto) 10.2 % [place] % (Auto) 5.4 % Eos % (Auto) 0.9 % Baso % (Auto) 0.2 % Neut # (Auto) 7.21 H (1.40-6.50) K/uL Lymph # (Auto) 0.89 L (1.20-3.40) K/uL [place] # (Auto) 0.47 (0.11-0.59) K/uL Eos # (Auto) 0.08 (0.00-0.50) K/uL Baso # (Auto) 0.02 (0.00-0.20) K/uL Immature Gran # (Auto) 0.02 (0.01-0.20) K/uL Sodium 139 (136-145) mmol/L Potassium 3.6 (3.5-5.1) mmol/L Chloride 101 (98-107) mmol/L Carbon Dioxide 32 (21-32) mmol/L Anion Gap 6 (3-11) BUN 10 (6-23) mg/dl Creatinine 0.64 (0.6-1.2) mg/dl Est Cr Clr Drug Dosing 76.8 ml/min Est GFR ( Amer) 102.6 ml/min Est GFR (Non-Af Amer) 88.5 ml/min BUN/Creatinine Ratio 15.6 (10-20) Glucose 121 H (70-99(Fasting)) mg/dl Calcium 9.0 (8.6-10.3) mg/dl Magnesium 1.9 (1.7-2.4) mg/dl Total Bilirubin 0.9 (0.2-1.0) mg/dl AST 20 (13-39) U/L ALT 18 (7-52) U/L Alkaline Phosphatase 93 (34-104) U/L Troponin I High Sens 15.5 H (0-14) pg/ml B-Natriuretic Peptide 1215 H (0-100) pg/ml Total Protein 6.5 (6.0-8.3) gm/dl Albumin 3.4 (3.4-5.0) gm/dl Globulin 3.1 (2.5-4.0) gm/dl Albumin/Globulin Ratio 1.1 (0.9-2) Urine Color Urine Appearance (Clear) Urine pH (4.5-7.5) Ur Specific [place] (1.000-1.030) Urine Protein (Negative) Urine Glucose (UA) (Negative) Urine Ketones (Negative) Urine Blood (Negative) Urine Nitrite (Negative) Urine Bilirubin (Negative) Urine Urobilinogen (Negative) Ur Leukocyte Esterase (Negative) Urine WBC (Auto) (0-5) /hpf Urine RBC (Auto) (0-4) /hpf U Hyaline Cast (Auto) (0-5) /lpf U Epithel Cells (Auto) (0-5) /lpf Urine Bacteria (Auto) (Negative) Urine Yeast Adenovirus (PCR) (NotDetected) B. pertussis DNA (PCR) (NotDetected) B.parapertussis DNA PCR (NotDetected) C. pneumoniae DNA (PCR) (NotDetected) Coronavirus OC43 (PCR) (NotDetected) Coronavirus HKU1 (PCR) (NotDetected) Coronavirus 229E (PCR) (NotDetected) SARS-CoV-2 (PCR) (NotDetected) Coronavirus NL63 (PCR) (NotDetected) Human Metapneumovir PCR (NotDetected) Influenza Type A (PCR) (NotDetected) Influenza Type B (PCR) (NotDetected) M. pneumoniae (PCR) (NotDetected) Parainfluenza 1 (PCR) (NotDetected) Parainfluenza 2 (PCR) (NotDetected) Parainfluenza 3 (PCR) (NotDetected) Parainfluenza 4 (PCR) (NotDetected) RSV (PCR) (NotDetected) Entero/Rhino (PCR) (NotDetected) 12/13/22 12/13/22 Range/Units 13:07 17:11 WBC (4.8-10.8) K/ul RBC (4.20-5.40) M/uL Hgb (12.0-16.0) g/dl Hct (37.0-47.0) % MCV (80.0-100.0) fL MCH (25.0-34.0) pg MCHC (32.0-36.0) g/dL RDW Std Deviation (36.4-46.3) fL RDW Coeff of Shahrzad (11.5-14.5) % Plt Count (130-400) K/uL MPV (9.4-12.4) fL Immature Gran % (Auto) % Neut % (Auto) % Lymph % (Auto) % [place] % (Auto) % Eos % (Auto) % Baso % (Auto) % Neut # (Auto) (1.40-6.50) K/uL Lymph # (Auto) (1.20-3.40) K/uL [place] # (Auto) (0.11-0.59) K/uL Eos # (Auto) (0.00-0.50) K/uL Baso # (Auto) (0.00-0.20) K/uL Immature Gran # (Auto) (0.01-0.20) K/uL Sodium (136-145) mmol/L Potassium (3.5-5.1) mmol/L Chloride (98-107) mmol/L Carbon Dioxide (21-32) mmol/L Anion Gap (3-11) BUN (6-23) mg/dl Creatinine (0.6-1.2) mg/dl Est Cr Clr Drug Dosing ml/min Est GFR ( Amer) ml/min Est GFR (Non-Af Amer) ml/min BUN/Creatinine Ratio (10-20) Glucose (70-99(Fasting)) mg/dl Calcium (8.6-10.3) mg/dl Magnesium (1.7-2.4) mg/dl Total Bilirubin (0.2-1.0) mg/dl AST (13-39) U/L ALT (7-52) U/L Alkaline Phosphatase (34-104) U/L Troponin I High Sens (0-14) pg/ml B-Natriuretic Peptide (0-100) pg/ml Total Protein (6.0-8.3) gm/dl Albumin (3.4-5.0) gm/dl Globulin (2.5-4.0) gm/dl Albumin/Globulin Ratio (0.9-2) Urine Color Yellow Urine Appearance Clear (Clear) Urine pH 8.5 H (4.5-7.5) Ur Specific [place] 1.027 (1.000-1.030) Urine Protein Trace H (Negative) Urine Glucose (UA) 2+ H (Negative) Urine Ketones Negative (Negative) Urine Blood Negative (Negative) Urine Nitrite Negative (Negative) Urine Bilirubin Negative (Negative) Urine Urobilinogen Negative (Negative) Ur Leukocyte Esterase Negative (Negative) Urine WBC (Auto) 1-5 (0-5) /hpf Urine RBC (Auto) 0-4 (0-4) /hpf U Hyaline Cast (Auto) 1-5 (0-5) /lpf U Epithel Cells (Auto) 20-30 H (0-5) /lpf Urine Bacteria (Auto) Negative (Negative) Urine Yeast Not Reportable Adenovirus (PCR) Not Detected (NotDetected) B. pertussis DNA (PCR) Not Detected (NotDetected) B.parapertussis DNA PCR Not Detected (NotDetected) C. pneumoniae DNA (PCR) Not Detected (NotDetected) Coronavirus OC43 (PCR) Not Detected (NotDetected) Coronavirus HKU1 (PCR) Not Detected (NotDetected) Coronavirus 229E (PCR) Not Detected (NotDetected) SARS-CoV-2 (PCR) DETECTED A* (NotDetected) Coronavirus NL63 (PCR) Not Detected (NotDetected) Human Metapneumovir PCR Not Detected (NotDetected) Influenza Type A (PCR) Not Detected (NotDetected) Influenza Type B (PCR) Not Detected (NotDetected) M. pneumoniae (PCR) Not Detected (NotDetected) Parainfluenza 1 (PCR) Not Detected (NotDetected) Parainfluenza 2 (PCR) Not Detected (NotDetected) Parainfluenza 3 (PCR) Not Detected (NotDetected) Parainfluenza 4 (PCR) Not Detected (NotDetected) RSV (PCR) Not Detected (NotDetected) Entero/Rhino (PCR) Not Detected (NotDetected) Administered Medications Discontinued Medications Furosemide (Furosemide Inj 20 Mg/2 Ml Vial) 20 mg IV ONE ONE Stop: 12/13/22 18:42 Last Admin: 12/13/22 19:06 Dose: Not Given Documented By: PAYAL Furosemide (Furosemide 40 Mg/4 Ml Vial) 60 mg IV ONE ONE Stop: 12/13/22 18:50 Last Admin: 12/13/22 19:11 Dose: 60 mg Documented By: PAYAL Piperacillin Sod/Tazobactam Sod (Zosyn) 4.5 gm in 100 mls @ 200 mls/hr IV NOW ONE Stop: 12/13/22 13:42 Last Infusion: 12/13/22 14:57 Dose: 200 mls/hr Documented By: Admin: 12/13/22 14:14 Dose: 200 mls/hr Documented By: PAYAL Acetaminophen (Ofirmev) 1,000 mg in 100 mls @ 400 mls/hr IV NOW STA Stop: 12/13/22 14:48 Last Infusion: 12/13/22 15:22 Dose: 400 mls/hr Documented By: Admin: 12/13/22 14:58 Dose: 400 mls/hr Documented By: PAYAL Imaging Data Radiologist's Impression: Chest X-Ray 12/13/22 13:00 SINGLE VIEW CHEST CLINICAL HISTORY: Dyspnea FINDINGS: An AP, portable, upright chest radiograph is compared to chest x-ray and chest CT dated 07/02/2019. A right PICC line is in place. The tip projects over the cavoatrial junction. The heart is enlarged noting atherosclerotic calcification of the thoracic aorta. There is pulmonary vascular congestion with evidence of interstitial edema. Emphysema and chronic interstitial thickening is similar to previous. There are small pleural effusions with dependent consolidation. No pneumothorax is seen. The skeletal structures are osteopenic. There are chronic/healed left-sided rib fractures. Degenerative change is noted in the shoulders and spine. IMPRESSION: 1. Cardiomegaly and emphysema without evidence of congestive failure and pulmonary edema. 2. Small pleural effusions with dependent consolidation. Correlate clinically for evidence of a superimposed pneumonia. Radiographic follow-up to resolution is recommended. 3. The suspicious right upper lobe pulmonary lesion seen on prior CT scans is not well assessed. ACT 112: Negative or not required by law. Electronically signed by: Mak Skelton M.D. 12/13/2022 1:42 PM Discharge Plan Visit Data Chief Complaint: Shortness of Breath/Dyspnea Stated Complaint: SOB, LOW PULSE OX ED Provider: Santino Gallegos Discharge Problem: SOB (shortness of breath), CHF (congestive heart failure) Forms Stand Alone Forms: [employer] Prescriptions Prescriptions: No Action oxycodone 5 mg tablet 5 mg PO Q6H PRN (Reason: pain) Qty: 14 0RF atorvastatin 40 mg tablet 40 mg PO QPM glipizide 10 mg tablet 10 mg PO QAM clopidogrel 75 mg tablet 75 mg PO QAM aspirin 81 mg Tablet,Delayed Release (Dr/Ec) 81 mg PO QAM loratadine 10 mg tablet 10 mg PO QAM buspirone 15 mg tablet 15 mg PO BID albuterol sulfate [Ventolin HFA] 90 mcg/actuation Hfa Aerosol Inhaler 2 puff INHALATION Q4 PRN (Reason: Shortness Of Breath) dicyclomine 10 mg Capsule 10 mg PO TID PRN (Reason: Abdominal Pain) sucralfate [Carafate] 1 gram Tablet 1 g PO ACHS calcium carbonate [Calcium 600] 600 mg calcium (1,500 mg) Tablet 600 mg PO BID pantoprazole 40 mg Tablet,Delayed Release (Dr/Ec) 40 mg PO DAILY furosemide 20 mg tablet 40 mg PO QAM ondansetron 4 mg Tablet,Disintegrating 4 mg PO Q8H PRN (Reason: Nausea) cholecalciferol (vitamin D3) 125 mcg (5,000 unit) Tablet 5,000 unit PO BID ipratropium-albuterol 0.5 mg-3 mg(2.5 mg base)/3 mL solution for nebulization 3 ml INHALATION Q4 PRN (Reason: Shortness Of Breath Or Wheezing) glipizide 10 mg tablet 5 mg PO QPM Colace 50 mg Capsule 50 mg PO HS nicotine 14 mg/24 hr Patch 24 Hour 1 patch TRANSDERMAL DAILY lidocaine 4 % Adhesive Patch,Medicated 1 patch TOPICAL DAILY PRN (Reason: Pain) metoprolol succinate 50 mg tablet extended release 24 hr 50 mg PO QAM fluconazole 200 mg tablet 400 mg PO QAM potassium chloride 20 mEq tablet,ER particles/crystals 20 meq PO .DAILY UD Rx Instructions: Only when taking additional lasix. ascorbic acid (vitamin C) [Vitamin C] 500 mg Tablet 500 mg PO DAILY zinc 50 mg Tablet 50 mg PO DAILY nystatin [Nyamyc] 100,000 unit/gram powder 1 applic TOPICAL TID Align 4 mg Capsule 4 mg PO DAILY menthol-zinc oxide [Calmoseptine] 0.44-20.6 % Ointment 1 applic TOPICAL DIRECTED PRN (Reason: Sores on bottom) Trelegy Ellipta 100-62.5-25 mcg blister with device 1 inh INHALATION DAILY Zosyn Iv 1 dose IV TID Rx Instructions: 0600,1400, 2200 duloxetine 30 mg capsule,delayed release(DR/EC) 30 mg PO AMHS Referrals Referrals: Courtney Jay MD [Primary Care Provider] -
--- NOTE | 2022-12-13 13:44 | XRay Report ---
SINGLE VIEW CHEST CLINICAL HISTORY: Dyspnea FINDINGS: An AP, portable, upright chest radiograph is compared to chest x-ray and chest CT dated 06/13. A right PICC line is in place. The tip projects over the cavoatrial junction. The heart is en larged noting atherosclerotic calcification of the thoracic aorta. There is pulmonary vascular conges tion with evidence of interstitial edema. Emphysema and chronic interstitial thickening is similar to previous. There are small pleural effusions with dependent consolidation. No pneumothorax is seen. T he skeletal structures are osteopenic. There are chronic/healed left-sided rib fractures. Degenerativ e change is noted in the shoulders and spine. IMPRESSION: 1. Cardiomegaly and emphysema without evidence of congestive failure and pulmonary edema. 2. Small pleural effusions with dependent consolidation. Correlate clinically for evidence of a super imposed pneumonia. Radiographic follow-up to resolution is recommended. 3. The suspicious right upper lobe pulmonary lesion seen on prior CT scans is not well assessed. ACT 112: Negative or not required by law. Electronically signed by: Mak Skelton M.D. 12/13/2022 1:42 PM
[2022-12-13 13:48] LABS: Albumin Globulin Ratio 1.1 (0.9-2); Albumin Level 3.4 gm/dl (3.4-5.0); BUN Creatinine Ratio 15.6 (10-20); Bilirubin,Total 0.9 mg/dl (0.2-1.0); Creatinine Clr Calc Pharmacy 76.8 ml/min; Est GFR (African American) 102.6 ml/min; Est GFR (Non-African American) 88.5 ml/min; Globulin 3.1 gm/dl (2.5-4.0); Magnesium 1.9 mg/dl (1.7-2.4); Potassium 3.6 mmol/L (3.5-5.1); Total Protein 6.5 gm/dl (6.0-8.3)
[2022-12-13 14:14] LABS: Troponin I High Sensitivity 15.5 pg/ml (0-14)
[2022-12-13] MEDS ORDERED: ACETAMINOPHEN 1,000 MG/100 ML VIAL IV STA (14:34)
[2022-12-13 14:44] LABS: Adenovirus PCR Not Detected (NotDetected); Bordetella parapertussis PCR Not Detected (NotDetected); Bordetella pertussis PCR Not Detected (NotDetected); Chlamydia pneumoniae PCR Not Detected (NotDetected); Coronavirus 229E PCR Not Detected (NotDetected); Coronavirus HKU1 PCR Not Detected (NotDetected); Coronavirus NL63 PCR Not Detected (NotDetected); Coronavirus OC43PCR Not Detected (NotDetected); Human Metapneumovirus PCR Not Detected (NotDetected); Influenza A PCR Not Detected (NotDetected); Influenza B PCR Not Detected (NotDetected); Mycoplasma pneumoniae PCR Not Detected (NotDetected); Parainfluenza Virus 1 PCR Not Detected (NotDetected); Parainfluenza Virus 2 PCR Not Detected (NotDetected); Parainfluenza Virus 3 PCR Not Detected (NotDetected); Parainfluenza Virus 4 PCR Not Detected (NotDetected); Respiratory Syncytial VirusPCR Not Detected (NotDetected); Rhinovirus/Enterovirus PCR Not Detected (NotDetected)
[2022-12-13 14:54] LABS: Coronavirus CoV-2 (COVID19)PCR DETECTED (NotDetected)
[2022-12-13 17:36] LABS: Appearance Urine Clear (Clear); Bacteria Urine Automated Negative (Negative); Bilirubin Urine Negative (Negative); Blood Urine Negative (Negative); Color Urine Yellow; Epithelial Cell Urine Auto 20-30 /lpf (0-5); Glucose Urine UA 2+ (Negative); Ketones Urine Negative (Negative); Leukocyte Esterase Urine Negative (Negative); Nitrite Urine Negative (Negative); RBC Urine Automated 0-4 /hpf (0-4); Specific Gravity Urine 1.027 (1.000-1.030); Urobilinogen Urine Negative (Negative); pH Urine 8.5 (4.5-7.5)
[2022-12-13 17:39] LABS: Protein Urine Trace (Negative)
[2022-12-13] MEDS ORDERED: FUROSEMIDE INJ 20 MG/2 ML VIAL IV ONE (18:41)
[2022-12-13] MEDS ORDERED: FUROSEMIDE 40 MG/4 ML VIAL IV ONE (18:49)
--- NOTE | 2022-12-13 20:52 | History & Physical Report ---
Date of Service December 13, 2022 Assessment & Plan (1) SOB (shortness of breath): Plan: 72-year-old female with past med significant for type 2 diabetes, diabetic peripheral neuropathy, diabetic retinopathy, hyperlipidemia, COPD, moderate persistent asthma, lung nodules, history of pneumonia, peripheral vascular disease, superior mesenteric artery stenosis, celiac artery stenosis, chronic mesenteric ischemia, chronic diastolic CHF, history of CVA, hemiplegia and hemiparesis following CVA left side, history of CAD, history of chronic superficial gastritis with bleeding, severe mitral regurgitation, history of bilateral carotid stenosis, Pendleton's esophagus, history of GI bleed, history of osteoarthrosis, history of iron deficiency anemia, depression, tobacco use disorder, generalized anxiety disorder presents with shortness of breath Shortness of breath Possible acute on chronic diastolic CHF with severe mitral regurgitation Possible pneumonia Recent COVID we will get CTA chest to rule out PE Received IV Lasix 60 mg in the ER We will continue with IV Lasix 40 twice daily Patient is already on IV Zosyn We will follow procalcitonin levels We will follow CT chest results We will follow serial enzymes and echocardiogram Daily weights and I's and O's Monitoring telemetry Consult cardiology in a.m. History of COPD and asthma No obvious wheezing Continue home inhalers and nebs as needed Recent in [place] for suprapubic abscess from the left to right femoral-femoral bypass s/p washout and wound VAC placement in November 04 followed by repeat debridement on November 16 dorsal gangrene of right third toe s/p amputation On IV Zosyn and fluconazole until 12/16. Wound care . Postoperative cardiac arrest and had cardiac cath showing multivessel disease refused surgery s/p PCI to LM/LAD On Toprol-XL, Plavix, aspirin and statin. COVID-19 first diagnosed in November 21 Still positive COVID precautions Diabetes Hold home p.o. medications Insulin sliding scale We will follow blood sugars and HbA1c levels History of PVD and multiple procedures as mentioned in HPI and past surgical history On aspirin Plavix and statin History of CVA On aspirin Plavix and statin History of hypertension On metoprolol We will monitor Hyperlipidemia On statin Depression General anxiety disorder On buspirone and duloxetine Chest pain States from CPR We will follow echo and CT chest GERD On Protonix and sucralfate Anemia Hemoglobin 9.2 Stable since admission in [place] History of GI bleed in the past We will check stool for Hemoccult DVT prophylaxis Lovenox for now Disposition Telemetry floor Full code as per discussion with the patient History of Present Illness Chief Complaint: 72-year-old female with past med significant for type 2 diabetes, diabetic arsenio pheral neuropathy, diabetic retinopathy, hyperlipidemia, COPD, moderate persistent asthma, lung nodules, history of pneumonia, peripheral vascular disease, superior mesenteric artery stenosis, celiac artery stenosis, chronic mesenteric ischemia, chronic diastolic CHF, history of CVA, hemiplegia and hemiparesis following CVA left side, history of CAD, history of chronic superficial gastritis with bleeding, severe mitral regurgitation, history of bilateral carotid stenosis, Pendleton's esophagus, history of GI bleed, history of osteoarthrosis, history of iron deficiency anemia, depression, tobacco use disorder, generalized anxiety disorder presents with shortness of breath. Patient recently [facility]. She was admitted November 04/2023 for suprapubic abscess from the left to right femoral-femoral bypass s/p washout and wound VAC placement in November 04 followed by repeat debridement on November 16 dorsal gangrene of right third toe s/p amputation. Postoperatively patient ca rdiac cardiac arrest which was PEA arrest and required chest compressions for 30 seconds and she was transferred to ICU for management of cardiogenic shock. Cardiac cath done on November 10 was found to have multivessel disease. Patient opted to go for PCI instead of CT surgery. She was noted to have severe mitral regurgitation on echo in November 11. She underwent PCI to LM/LAD on November 12 and tolerated the procedure well. Started Toprol-XL and to follow outpatient. She also tested COVID infection on November 22. Improved with 1 day of Decadron remdesivir and discharged home on home oxygen and to complete her steroid taper. She is requiring oxygen 2 L on ambulation 3 L overnight. She was discharged on IV Zosyn to complete on December 16. Intraoperative cultures also showed Kayla and she is on Diflucan to complete on December 16. To follow- up with outpatient vascular as well as infectious disease. Lives at home with her daughter. Ambulates without support. Comes today because she is getting short of breaths since last 2 days. Has occasional cough with brownish- yellowish phlegm. Having chest pain since she broke her ribs from CPR. Denies any fevers. Has some sore throat and runny nose. No headaches. Has back pain. No nausea or vomiting. No abdominal pain. Normal bowel and bladder movements. Appetite is okay. No difficulty swallowing. Vision is okay. Recently few days back saw PCP for hospital follow-up and complained shortness of breath and was advised for hospital admission as her blood pressure is low and seemed volume overloaded. Patient seen refused admission and was prescribed extra dose of Lasix and advised to come to the hospital if not improving. Past medical history as mentioned above Past surgical history. Appendectomy. Cardiac angioplasty. Colonoscopy through stoma with biopsy. Left heart catheterization. EGD. EGD with biopsy. Left femoral-popliteal artery revascularization with angioplasty on April 2022. Right femoral-popliteal artery revascularization with angioplasty in September 2022. Left iliac artery revascularization with angioplasty in September 2022. IR stent placement. Amputation of the right toe on November 04, 2022. Partial hysterectomy. Cataracts procedure. Repair of bladder neck. Right CEA in 2004. Right redo eversion of carotic endarterectomy in 08/2008. Full mouth extraction in 2015. S/p SMA stent April 2022. Social history. . Smoked quarter pack a day for 50 years. Quit smoking in November 04, 2022. No alcohol use. No drug use. Family history. Niece had breast cancer. Sister had throat cancer. Brother had diabetes. Sister had diabetes.. Brother had stroke. Maternal grandmother had diabetes. Primary Care Provider: Courtney Jay MD Shortness of breath Allergies Allergy/AdvReac Type Severity Reaction Status Date / Time methadone Allergy Severe "couldn't Verified 12/13/22 16:53 swallow/eyes coming out of head" nickel Allergy Severe swelling Verified 12/13/22 16:53 and infections nitroglycerin Allergy Intermediate DECREASED Verified 12/13/22 16:53 BP propoxyphene Allergy Intermediate edema to Verified 12/13/22 16:53 face/lips/tongue diclofenac Allergy Mild Rash Verified 12/13/22 16:53 hydrocodone Allergy Mild "severe Verified 12/13/22 16:53 constipation" levofloxacin [From Levaquin] Allergy Mild nausea/vomi Verified 12/13/22 16:53 ting mushroom Allergy Mild nausea/abd Verified 12/13/22 16:53 pain onion Allergy Mild nausea/vomi Verified 12/13/22 16:53 ting Penicillins Allergy Mild severe Verified 12/13/22 16:53 diarrhea/rash pine nut Allergy Mild Rash Verified 03/21/19 18:20 sitagliptin [From Benitezirene] Allergy Mild rash Verified 03/21/19 18:20 "blood blisters" strawberry Allergy Mild Diarrhea Verified 03/21/19 18:20 Home Medications Medication Instructions Recorded Confirmed Type aspirin 81 mg tablet,delayed 81 mg PO QAM 11/06/18 12/13/22 History release atorvastatin 40 mg tablet 40 mg PO QPM 11/06/18 12/13/22 History buspirone 15 mg tablet 15 mg PO BID 11/06/18 12/13/22 History clopidogrel 75 mg tablet 75 mg PO QAM 11/06/18 12/13/22 History glipizide 10 mg tablet 10 mg PO QAM 11/06/18 12/13/22 History loratadine 10 mg tablet 10 mg PO QAM 11/06/18 12/13/22 History albuterol sulfate 90 mcg/actuation 2 puff inhalation Q4 PRN Shortness 11/16/18 12/13/22 History aerosol inhaler (Ventolin HFA) Of Breath dicyclomine 10 mg capsule 10 mg PO TID PRN Abdominal Pain 01/11/19 12/13/22 History calcium carbonate 600 mg calcium 600 mg PO BID 03/21/19 12/13/22 History (1,500 mg) tablet (Calcium) cholecalciferol (vitamin D3) 125 5,000 unit PO BID 03/21/19 12/13/22 History mcg (5,000 unit) tablet furosemide 20 mg tablet 40 mg PO QAM 03/21/19 12/13/22 History ondansetron 4 mg disintegrating 4 mg PO Q8H PRN Nausea 03/21/19 12/13/22 History tablet pantoprazole 40 mg tablet,delayed 40 mg PO DAILY 03/21/19 12/13/22 History release sucralfate 1 gram tablet (Carafate) 1 g PO ACHS 03/21/19 12/13/22 History oxycodone 5 mg tablet 5 mg PO Q6H PRN pain #14 tabs 10/25/19 12/13/22 Rx Bifidobacterium infantis 4 mg 4 mg PO DAILY 12/13/22 12/13/22 History capsule (Align) Zosyn Iv 1 dose IV TID 12/13/22 12/13/22 History ascorbic acid (vitamin C) 500 mg 500 mg PO DAILY 12/13/22 12/13/22 History tablet (Vitamin C) docusate sodium 50 mg capsule 50 mg PO HS 12/13/22 12/13/22 History duloxetine 30 mg capsule,delayed 30 mg PO AMHS 12/13/22 12/13/22 History release fluconazole 200 mg tablet 400 mg PO QAM 12/13/22 12/13/22 History fluticasone fur. 100 mcg-umeclid 1 inh inhalation DAILY 12/13/22 12/13/22 History 62.5 mcg-vilant 25 mcg inhalat.powder (Trelegy Ellipta) glipizide 10 mg tablet 5 mg PO QPM 12/13/22 12/13/22 History ipratropium 0.5 mg-albuterol 3 mg 3 ml inhalation Q4 PRN Shortness 12/13/22 12/13/22 History (2.5 mg base)/3 mL nebulization Of Breath Or Wheezing soln lidocaine 4 % topical patch 1 patch topical DAILY PRN Pain 12/13/22 12/13/22 History menthol 0.44 %-zinc oxide 20.6 % 1 applic topical DIRECTED PRN 12/13/22 12/13/22 History topical ointment (Calmoseptine) Sores on bottom metoprolol succinate 50 mg 50 mg PO QAM 12/13/22 12/13/22 History tablet,extended release 24 hr nicotine 14 mg/24 hr daily 1 patch transdermal DAILY 12/13/22 12/13/22 History transdermal patch nystatin 100,000 unit/gram topical 1 applic topical TID 12/13/22 12/13/22 History powder (Nyamyc) potassium chloride 20 mEq 20 meq PO .DAILY UD 12/13/22 12/13/22 History tablet,extended release(part/cryst) zinc 50 mg tablet 50 mg PO DAILY 12/13/22 12/13/22 History Past Med/Surg History Medical History (Updated 12/13/22 @ 20:27 by Santino Gallegos MD) Anemia Anxiety Pendleton esophagus COPD (chronic obstructive pulmonary disease) inhaler prn Coronary artery disease, occlusive Critical limb ischemia with history of revascularization of same extremity RLE CVA (cerebral vascular accident) 2008--slight left side weakness (no assistive devices)--follows with Dr. 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 Obesity (BMI 30.0-34.9) On anticoagulant therapy plavix daily Osteoarthritis PVD (peripheral vascular disease) Right upper lobe pulmonary nodule Surgical History H/O: hysterectomy History of appendectomy History of bilateral cataract extraction History of bilateral tubal ligation History of bronchoscopy History of cardiac cath x2 both @ [place]--2000 with 1 stent/2003--no stent, instead fem-pop bypass History of carotid endarterectomy 2009 on right side History of colonoscopy with polypectomy History of dilatation and curettage x3 History of endoscopic sinus surgery History of esophagogastroduodenoscopy (EGD) History of heart artery stent x1 before 2000? @ [place] History of repair of right rotator cuff x2 History of tooth extraction most teeth Status post femoral-popliteal bypass surgery 2004 Status post femoropopliteal bypass surgery 11/06/[address] Jara---thrombectomy/Femoral-femoral bypass Family History Sister Family history of diabetes mellitus Family history of esophageal cancer Family hx of colon cancer Sister Family history of diabetes mellitus Sister Family history of diabetes mellitus Sister Family history of diabetes mellitus Sister Family history of diabetes mellitus Sister Family history of diabetes mellitus Sister Family history of diabetes mellitus Brother Family history of diabetes mellitus Brother Family history of diabetes mellitus Brother Family history of diabetes mellitus Other Diabetes No family history of adverse response to anesthesia Stroke Social History Smoking Status: Former smoker Tobacco Type: Cigarettes Cigarettes Per Day: 20-40; Second Hand Exposure: Yes; Do You Dip or Chew Tobacco: No; Hx Alcohol Use: No Hx Substance Use: No Preferred Language: Surinamese Communication Ability: Effective County Bailiff Required: No Beliefs That Will Affect Care: None Current Living Situation: Alone Current Living Situation Comment: Lives with daughter Feels Safe at Home: Yes Assistive Devices: None Review of Systems Review of Systems: All systems reviewed & are unremarkable except as noted in HPI & below Physical Exam Physical Exam: General- Not in distress Head- atraumatic Eyes- PERRL. ENT- oropharynx clear Neck- supple, no JVD, . Lungs- clear to auscultation no wheezing or crackles. Heart- regular rhythm; no murmur, no gallop. Abdomen- normal bowel sounds, soft, wound vac seen. Diffuse tender on palpation Extremities- no pretibial edema, no erythema seen. Neuro- alert, oriented x 3; PERRL, no facial palsy; no dysarthria; Obeys commands Skin- warm & dry Results & Data Results & Data Vital Signs (Past 12 Hours) Vital Signs Temp Pulse Pulse Resp BP BP Pulse Ox 12/13/22 19:00 87 22 118/81 96 12/13/22 17:00 77 19 117/77 96 12/13/22 16:50 77 12/13/22 15:00 66 22 102/66 97 12/13/22 13:14 71 22 93 12/13/22 13:14 71 22 102/66 94 12/13/22 13:14 92 12/13/22 12:57 73 12/13/22 12:33 36.7 C 20 108/59 L O2 Del Method O2 Flow Rate 12/13/22 19:00 Nasal Cannula 2 12/13/22 17:00 Nasal Cannula 2 12/13/22 16:50 12/13/22 15:00 Nasal Cannula 2 12/13/22 13:14 Nasal Cannula 12/13/22 13:14 Nasal Cannula 2 12/13/22 13:14 Nasal Cannula 2 12/13/22 12:57 12/13/22 12:33 Diagnostic Findings Laboratory Results WBC 8.69 K/ul (4.8-10.8) 12/13/22 13:02 RBC 3.18 M/uL (4.20-5.40) L 12/13/22 13:02 Hgb 9.2 g/dl (12.0-16.0) L 12/13/22 13:02 Hct 29.2 % (37.0-47.0) L 12/13/22 13:02 MCV 91.8 fL (80.0-100.0) 12/13/22 13:02 MCH 28.9 pg (25.0-34.0) 12/13/22 13:02 MCHC 31.5 g/dL (32.0-36.0) L 12/13/22 13:02 RDW Std Deviation 50.6 fL (36.4-46.3) H 12/13/22 13:02 RDW Coeff of Shahrzad 15.4 % (11.5-14.5) H 12/13/22 13:02 Plt Count 312 K/uL (130-400) 12/13/22 13:02 MPV 10.1 fL (9.4-12.4) 12/13/22 13:02 Immature Gran % (Auto) 0.2 % 12/13/22 13:02 Neut % (Auto) 83.1 % 12/13/22 13:02 Lymph % (Auto) 10.2 % 12/13/22 13:02 Cole % (Auto) 5.4 % 12/13/22 13:02 Eos % (Auto) 0.9 % 12/13/22 13:02 Baso % (Auto) 0.2 % 12/13/22 13:02 Neut # (Auto) 7.21 K/uL (1.40-6.50) H 12/13/22 13:02 Lymph # (Auto) 0.89 K/uL (1.20-3.40) L 12/13/22 13:02 Cole # (Auto) 0.47 K/uL (0.11-0.59) 12/13/22 13:02 Eos # (Auto) 0.08 K/uL (0.00-0.50) 12/13/22 13:02 Baso # (Auto) 0.02 K/uL (0.00-0.20) 12/13/22 13:02 Immature Gran # (Auto) 0.02 K/uL (0.01-0.20) 12/13/22 13:02 Sodium 139 mmol/L (136-145) 12/13/22 13:02 Potassium 3.6 mmol/L (3.5-5.1) 12/13/22 13:02 Chloride 101 mmol/L (98-107) 12/13/22 13:02 Carbon Dioxide 32 mmol/L (21-32) 12/13/22 13:02 Anion Gap 6 (3-11) 12/13/22 13:02 BUN 10 mg/dl (6-23) 12/13/22 13:02 Creatinine 0.64 mg/dl (0.6-1.2) 12/13/22 13:02 Est Cr Clr Drug Dosing 76.8 ml/min 12/13/22 13:02 Est GFR ( Amer) 102.6 ml/min 12/13/22 13:02 Est GFR (Non-Af Amer) 88.5 ml/min 12/13/22 13:02 BUN/Creatinine Ratio 15.6 (10-20) 12/13/22 13:02 Glucose 121 mg/dl (70-99(Fasting)) H 12/13/22 13:02 Calcium 9.0 mg/dl (8.6-10.3) 12/13/22 13:02 Magnesium 1.9 mg/dl (1.7-2.4) 12/13/22 13:02 Total Bilirubin 0.9 mg/dl (0.2-1.0) 12/13/22 13:02 AST 20 U/L (13-39) 12/13/22 13:02 ALT 18 U/L (7-52) 12/13/22 13:02 Alkaline Phosphatase 93 U/L (34-104) 12/13/22 13:02 Troponin I High Sens 15.5 pg/ml (0-14) H 12/13/22 13:02 B-Natriuretic Peptide 1215 pg/ml (0-100) H 12/13/22 13:02 Total Protein 6.5 gm/dl (6.0-8.3) 12/13/22 13:02 Albumin 3.4 gm/dl (3.4-5.0) 12/13/22 13:02 Globulin 3.1 gm/dl (2.5-4.0) 12/13/22 13:02 Albumin/Globulin Ratio 1.1 (0.9-2) 12/13/22 13:02 Urine Color Yellow 12/13/22 17:11 Urine Appearance Clear (Clear) 12/13/22 17:11 Urine pH 8.5 (4.5-7.5) H 12/13/22 17:11 Ur Specific [place] 1.027 (1.000-1.030) 12/13/22 17:11 Urine Protein Trace (Negative) H 12/13/22 17:11 Urine Glucose (UA) 2+ (Negative) H 12/13/22 17:11 Urine Ketones Negative (Negative) 12/13/22 17:11 Urine Blood Negative (Negative) 12/13/22 17:11 Urine Nitrite Negative (Negative) 12/13/22 17:11 Urine Bilirubin Negative (Negative) 12/13/22 17:11 Urine Urobilinogen Negative (Negative) 12/13/22 17:11 Ur Leukocyte Esterase Negative (Negative) 12/13/22 17:11 Urine WBC (Auto) 1-5 /hpf (0-5) 12/13/22 17:11 Urine RBC (Auto) 0-4 /hpf (0-4) 12/13/22 17:11 U Hyaline Cast (Auto) 1-5 /lpf (0-5) 12/13/22 17:11 U Epithel Cells (Auto) 20-30 /lpf (0-5) H 12/13/22 17:11 Urine Bacteria (Auto) Negative (Negative) 12/13/22 17:11 Urine Yeast Not Reportable 12/13/22 17:11 Adenovirus (PCR) Not Detected (NotDetected) 12/13/22 13:07 B. pertussis DNA (PCR) Not Detected (NotDetected) 12/13/22 13:07 B.parapertussis DNA PCR Not Detected (NotDetected) 12/13/22 13:07 C. pneumoniae DNA (PCR) Not Detected (NotDetected) 12/13/22 13:07 Coronavirus OC43 (PCR) Not Detected (NotDetected) 12/13/22 13:07 Coronavirus HKU1 (PCR) Not Detected (NotDetected) 12/13/22 13:07 Coronavirus 229E (PCR) Not Detected (NotDetected) 12/13/22 13:07 SARS-CoV-2 (PCR) DETECTED (NotDetected) A* 12/13/22 13:07 Coronavirus NL63 (PCR) Not Detected (NotDetected) 12/13/22 13:07 Human Metapneumovir PCR Not Detected (NotDetected) 12/13/22 13:07 Influenza Type A (PCR) Not Detected (NotDetected) 12/13/22 13:07 Influenza Type B (PCR) Not Detected (NotDetected) 12/13/22 13:07 M. pneumoniae (PCR) Not Detected (NotDetected) 12/13/22 13:07 Parainfluenza 1 (PCR) Not Detected (NotDetected) 12/13/22 13:07 Parainfluenza 2 (PCR) Not Detected (NotDetected) 12/13/22 13:07 Parainfluenza 3 (PCR) Not Detected (NotDetected) 12/13/22 13:07 Parainfluenza 4 (PCR) Not Detected (NotDetected) 12/13/22 13:07 RSV (PCR) Not Detected (NotDetected) 12/13/22 13:07 Entero/Rhino (PCR) Not Detected (NotDetected) 12/13/22 13:07 Impressions Chest X-Ray 12/13/22 13:00 SINGLE VIEW CHEST CLINICAL HISTORY: Dyspnea FINDINGS: An AP, portable, upright chest radiograph is compared to chest x-ray and chest CT dated 07/02/2019. A right PICC line is in place. The tip projects over the cavoatrial junction. The heart is enlarged noting atherosclerotic calcification of the thoracic aorta. There is pulmonary vascular congestion with evidence of interstitial edema. Emphysema and chronic interstitial thickening is similar to previous. There are small pleural effusions with dependent consolidation. No pneumothorax is seen. The skeletal structures are osteopenic. There are chronic/healed left-sided rib fractures. Degenerative change is noted in the shoulders and spine. IMPRESSION: 1. Cardiomegaly and emphysema without evidence of congestive failure and pulmonary edema. 2. Small pleural effusions with dependent consolidation. Correlate clinically for evidence of a superimposed pneumonia. Radiographic follow-up to resolution is recommended. 3. The suspicious right upper lobe pulmonary lesion seen on prior CT scans is not well assessed. ACT 112: Negative or not required by law. Electronically signed by: Mak Skelton M.D. 12/13/2022 1:42 PM Code Status & VTE Plan VTE Prophylaxis Plan VTE Prophylaxis will be ordered: Yes
[2022-12-13] MEDS ORDERED: ONDANSETRON 4 MG OD TAB PO PRN (22:39)
[2022-12-13] MEDS ORDERED: GLUCOSE 40% GEL 15 GM TUBE PO PRN (22:39)
[2022-12-13] MEDS ORDERED: ALBUTEROL HFA 8 GM INHALER INH PRN (22:39)
[2022-12-13] MEDS ORDERED: GLUCOSE 10 TAB/TUBE PO PRN (22:39)
[2022-12-13] MEDS ORDERED: ZOSYN IV SCH (22:39)
[2022-12-13] MEDS ORDERED: ALBUT/IPRATROP 3MG/0.5MG NEB 3 ML VIAL INH PRN (22:39)
[2022-12-13] MEDS ORDERED: DEXTROSE 50% 50 ML SYRINGE IV PRN (22:39)
[2022-12-13] MEDS ORDERED: NITROGLYCERIN SL 0.4 MG/TAB TAB SL PRN (22:39)
[2022-12-13] MEDS ORDERED: NON-FORMULARY MEDICATION (Lidocaine 4 % Adhesive Patch,Medicated) TOP PRN (22:39)
[2022-12-13] MEDS ORDERED: GLUCAGON FOR INJ 1 MG VIAL SQ PRN (22:39)
[2022-12-13] MEDS ORDERED: POLYETHYLENE (MIRALAX) 17 GM PACK PO PRN (22:39)
[2022-12-13] MEDS ORDERED: MENTHOL-ZINC OXIDE 360 APPLN/120 GM TUBE EXT PRN (22:54)
[2022-12-13] MEDS: INSULIN ASPART PER UNIT CHARGE SC SCH (23:22)
[2022-12-13] MEDS: ENOXAPARIN INJ 40 MG/0.4 ML SYR SQ SCH (23:44)
[2022-12-13] MEDS: PIPER/TAZO 4.5g in D5W MINI-B 100 ML IV SCH (23:44)
[2022-12-13] MEDS: DULoxetine HCL 30 MG CAP PO SCH (23:45)
[2022-12-13] MEDS: CHOLECALCIFEROL 5,000 UNITS 125 MCG TAB PO SCH (23:45)
[2022-12-13] MEDS: DOCUSATE SODIUM SYRUP 100 MG/10 ML UDC PO SCH (23:45)
[2022-12-13] MEDS: busPIRone 15 MG TAB PO SCH (23:46)
[2022-12-13] MEDS: ATORVASTATIN 40 MG TAB PO SCH (23:46)
[2022-12-13] MEDS: SUCRALFATE 1 GM TAB PO SCH (23:46)
[2022-12-13] MEDS: MICONAZOLE NITRATE POWDER 85 GM EXT SCH (23:47)
[2022-12-13] MEDS: CALCIUM CARBONATE 1250MG TAB PO SCH (23:47)
[2022-12-13] MEDS: oxyCODONE HCL IR 5 MG TAB (IMMEDIATE RELEASE) PO PRN (23:59)
[2022-12-14 06:05] LABS: Basophils # (auto) 0.03 K/uL (0.00-0.20); Basophils % (auto) 0.3 %; Eosinophils # (auto) 0.09 K/uL (0.00-0.50); Hematocrit (blood only) 30.1 % (37.0-47.0); Hemoglobin 9.5 g/dl (12.0-16.0); Immature Granulocytes # (auto) 0.02 K/uL (0.01-0.20); Immature Granulocytes % (auto) 0.2 %; Lymphocytes # (auto) 1.04 K/uL (1.20-3.40); Lymphocytes % (auto) 12.1 %; Mean Corpuscular Hemoglobin 29.5 pg (25.0-34.0); Mean Corpuscular Hgb Conc 31.6 g/dL (32.0-36.0); Mean Corpuscular Volume 93.5 fL (80.0-100.0); Mean Platelet Volume 10.3 fL (9.4-12.4); Monocytes # (auto) 0.58 K/uL (0.11-0.59); Monocytes % (auto) 6.7 %; Neutrophils # (auto) 6.85 K/uL (1.40-6.50); Neutrophils % (auto) 79.7 %; Platelet Count 311 K/uL (130-400); RDW Coefficient of Variation 15.4 % (11.5-14.5); RDW Standard Deviation 51.4 fL (36.4-46.3); Red Blood Count 3.22 M/uL (4.20-5.40); White Blood Count 8.61 K/ul (4.8-10.8)
[2022-12-14 06:07] LABS: BUN Creatinine Ratio 11.4 (10-20); Calcium 8.6 mg/dl (8.6-10.3); Creatinine Clr Calc Pharmacy 68.1 ml/min; Est GFR (African American) 99.6 ml/min; Magnesium 1.8 mg/dl (1.7-2.4); Potassium 3.2 mmol/L (3.5-5.1)
[2022-12-14] MEDS: oxyCODONE HCL IR 5 MG TAB (IMMEDIATE RELEASE) PO PRN ×3 (08:03→20:27)
[2022-12-14 08:36] LABS: Estimated Average Glucose 148 mg/dl; Hemoglobin A1C 6.8 % (4.5-5.6)
[2022-12-14] MEDS: PIPER/TAZO 4.5g in D5W MINI-B 100 ML IV SCH ×3 (08:52→22:46)
[2022-12-14] MEDS: FLUTICASONE FUROATE 100MCG 14 PUFFS/INHALER INH SCH (08:52)
[2022-12-14] MEDS: UMECLIDINIUM/VILANTEROL 62.5/25MCG 7 PUFFS/INHALER INH SCH (08:52)
[2022-12-14] MEDS: busPIRone 15 MG TAB PO SCH ×2 (08:53→20:17)
[2022-12-14] MEDS: CHOLECALCIFEROL 5,000 UNITS 125 MCG TAB PO SCH ×2 (08:53→20:15)
[2022-12-14] MEDS: POTASSIUM CHLORIDE CRTAB 20 MEQ TABCR PO SCH (08:53)
[2022-12-14] MEDS: DULoxetine HCL 30 MG CAP PO SCH ×2 (08:53→20:16)
[2022-12-14] MEDS: CALCIUM CARBONATE 1250MG TAB PO SCH ×2 (08:54→20:17)
[2022-12-14] MEDS: PANTOprazole 40 MG TAB PO SCH (08:54)
[2022-12-14] MEDS: FLUCONAZOLE 100 MG TAB PO SCH (08:54)
[2022-12-14] MEDS: ZINC SULFATE 220 MG CAPSULE PO SCH (08:55)
[2022-12-14] MEDS: ASCORBIC ACID 500 MG TAB PO SCH (08:55)
[2022-12-14] MEDS: SUCRALFATE 1 GM TAB PO SCH ×4 (08:55→20:17)
[2022-12-14] MEDS: METOPROLOL SUCC 50MG EXT REL TAB PO SCH (08:55)
[2022-12-14] MEDS: LORATADINE 10 MG TAB PO SCH (08:56)
[2022-12-14] MEDS: ADVANCED PROBIOTIC 1250 MG CAPSULE PO SCH (08:56)
[2022-12-14] MEDS: CLOPIDOGREL BISULFATE 75 MG TAB PO SCH (08:56)
[2022-12-14] MEDS: ASPIRIN 81 MG ECTAB PO SCH (08:56)
[2022-12-14] MEDS: FUROSEMIDE 40 MG/4 ML VIAL IV SCH ×2 (08:57→17:27)
[2022-12-14] MEDS: NICOTINE 14 MG/24 HR PATCH TD SCH (08:58)
[2022-12-14] MEDS ORDERED: NON-FORMULARY MEDICATION (Fluticasone-Umeclidin-Vilanter [Trelegy Ellipta] 100-62.5-25 mcg INH SCH (09:00)
[2022-12-14] MEDS ORDERED: NON-FORMULARY MEDICATION (Nicotine 14 mg/24 hr Patch 24 Hour) TD SCH (09:00)
[2022-12-14] MEDS: MICONAZOLE NITRATE POWDER 85 GM EXT SCH ×3 (09:02→20:22)
[2022-12-14] MEDS: INSULIN ASPART PER UNIT CHARGE SC SCH ×4 (09:09→20:19)
[2022-12-14] MEDS: ALBUT/IPRATROP 3MG/0.5MG NEB 3 ML VIAL NEB SCH ×2 (10:01→19:38)
--- NOTE | 2022-12-14 10:35 | Electrocardiogram Report ---
Test Reason : Blood Pressure : / mmHG Vent. Rate : 070 BPM Atrial Rate : 070 BPM P-R Int : 136 ms QRS Dur : 082 ms QT Int : 436 ms P-R-T Axes : 016 047 040 degrees QTc Int : 470 ms Sinus rhythm with marked sinus arrhythmia with occasional Premature ventricular complexes Nonspecific ST abnormality When compared with ECG of 25-OCT-2019 19:33, Premature ventricular complexes are now Present Confirmed by Edwin Kitchen ([id number]) on 12/14/2022 10:34:57 AM Referred By: REFERRED SELF Confirmed By:Chiki Kitchen
--- NOTE | 2022-12-14 11:25 | Hospitalist Progress Note ---
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 Recently hospitalized from 11/04 to 11/24 at [facility] She was also admitted at [facility] from 12/02 to 12/03 with shortness of breath thought secondary to CHF. She was diuresed with Lasix and Diamox and was discharged home. COVID-19 was tested positive on 11/22; doubt she is still infectious from it Chest x-ray personally reviewed; bilateral infiltrates. ? Pulmonary edema BNP elevated Echocardiogram results reviewed; EF of 55 to 60% with moderate-sized inferior and posterior wall abnormality with hypokinesis to akinesis of the segments. Obtain CTA chest PE protocol to rule out pulmonary embolism. Continue on IV Lasix 40 mg twice daily. Strict input and output Currently on Zosyn; to complete treatment till 12/16 as per infectious disease recommendation (while she was in [facility]). Cardiology on board; appreciate further recommendation. Airway clearance with flutter valve, DuoNeb and hypertonic saline. 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 Wound care consulted Postoperative cardiac arrest and had cardiac cath showing multivessel disease refused surgery s/p PCI to LM/LAD Reports chest pain from chest compression. Chest x-ray reveals healed left rib fractures On Toprol-XL, Plavix, aspirin and statin. History of COPD and asthma No obvious wheezing Continue home inhalers and nebs as needed COVID-19 first diagnosed in November 21 Received remdesivir and Decadron and completed steroid taper Still positive No isolation required Type II days mellitus Hold home p.o. medications Insulin sliding scale We will follow blood sugars and HbA1c levels History of PVD and multiple procedures as mentioned in HPI and past surgical history On aspirin Plavix and statin History of CVA On aspirin Plavix and statin History of hypertension On metoprolol We will monitor Hyperlipidemia On statin Depression General anxiety disorder On buspirone and duloxetine GERD On Protonix and sucralfate Anemia Hemoglobin 9.2 Stable since admission in [place] History of GI bleed in the past DVT prophylaxis Lovenox for now Disposition Telemetry floor Time spent evaluating patient, direct bedside care, chart review, placing orders, interpretation of diagnostic studies, discussion with consultants, patient, and family members, as well as other required patient management activities is 60 minutes Please note the above document was generated using voice recognition software. It may contain grammatical, syntax or spelling errors. Any formal questions or concerns about the content, text or information contained within the body of this dictation should be directly addressed to the provider for clarification Admission and Anticipated Discharge Date Admission Date: December 13, 2022 Subjective Patient seen and examined at bedside. She reports shortness of breath on minimal exertion. She also reports cough and chest pain while coughing. Review of Systems Review of Systems: All systems reviewed & are unremarkable except as noted in Subjective Physical Exam Physical Exam: General- Not in distress Head- atraumatic Eyes- PERRL. ENT- oropharynx clear Neck- supple, no JVD, . Lungs-bilateral basal crackles present. Chest walltender on palpation Heart- regular rhythm; no murmur, no gallop. Abdomen- normal bowel sounds, soft, wound vac seen. Diffuse tender on palpation Extremities- no pretibial edema, no erythema seen. Neuro- alert, oriented x 3; PERRL, no facial palsy; no dysarthria; Obeys commands Skin- warm & dry Results & Data Results & Data Vital Signs (Past 12 Hours) Vital Signs Temp Pulse Pulse Resp BP Pulse Ox O2 Del Method 12/14/22 11:19 36.6 C 78 19 100/66 94 Nasal Cannula 12/14/22 10:02 79 22 91 Nasal Cannula 12/14/22 07:18 36.4 C L 88 20 103/66 97 Nasal Cannula 12/14/22 04:14 36.6 C 94 H 18 100/66 94 Nasal Cannula 12/14/22 00:11 Nasal Cannula 12/13/22 23:37 80 O2 Flow Rate 12/14/22 11:19 2 12/14/22 10:02 2 12/14/22 07:18 2 12/14/22 04:14 2 12/14/22 00:11 2 12/13/22 23:37 Laboratory Results Laboratory Results WBC 8.61 K/ul (4.8-10.8) 12/14/22 05:22 RBC 3.22 M/uL (4.20-5.40) L 12/14/22 05:22 Hgb 9.5 g/dl (12.0-16.0) L 12/14/22 05:22 Hct 30.1 % (37.0-47.0) L 12/14/22 05:22 MCV 93.5 fL (80.0-100.0) 12/14/22 05:22 MCH 29.5 pg (25.0-34.0) 12/14/22 05:22 MCHC 31.6 g/dL (32.0-36.0) L 12/14/22 05:22 RDW Std Deviation 51.4 fL (36.4-46.3) H 12/14/22 05:22 RDW Coeff of Shahrzad 15.4 % (11.5-14.5) H 12/14/22 05:22 Plt Count 311 K/uL (130-400) 12/14/22 05:22 MPV 10.3 fL (9.4-12.4) 12/14/22 05:22 Immature Gran % (Auto) 0.2 % 12/14/22 05:22 Neut % (Auto) 79.7 % 12/14/22 05:22 Lymph % (Auto) 12.1 % 12/14/22 05:22 Lo[place]za % (Auto) 6.7 % 12/14/22 05:22 Eos % (Auto) 1.0 % 12/14/22 05:22 Baso % (Auto) 0.3 % 12/14/22 05:22 Neut # (Auto) 6.85 K/uL (1.40-6.50) H 12/14/22 05:22 Lymph # (Auto) 1.04 K/uL (1.20-3.40) L 12/14/22 05:22 [place] # (Auto) 0.58 K/uL (0.11-0.59) 12/14/22 05:22 Eos # (Auto) 0.09 K/uL (0.00-0.50) 12/14/22 05:22 Baso # (Auto) 0.03 K/uL (0.00-0.20) 12/14/22 05:22 Immature Gran # (Auto) 0.02 K/uL (0.01-0.20) 12/14/22 05:22 Sodium 140 mmol/L (136-145) 12/14/22 05:22 Potassium 3.2 mmol/L (3.5-5.1) L 12/14/22 05:22 Chloride 100 mmol/L (98-107) 12/14/22 05:22 Carbon Dioxide 32 mmol/L (21-32) 12/14/22 05:22 Anion Gap 8 (3-11) 12/14/22 05:22 BUN 8 mg/dl (6-23) 12/14/22 05:22 Creatinine 0.70 mg/dl (0.6-1.2) 12/14/22 05:22 Est Cr Clr Drug Dosing 68.1 ml/min 12/14/22 05:22 Est GFR ( Amer) 99.6 ml/min 12/14/22 05:22 Est GFR (Non-Af Amer) 86.0 ml/min 12/14/22 05:22 BUN/Creatinine Ratio 11.4 (10-20) 12/14/22 05:22 Glucose 90 mg/dl (70-99(Fasting)) 12/14/22 05:22 POC Glucose 199 mg/dl (70-99) H 12/14/22 11:12 Estimat Average Glucose 148 mg/dl 12/14/22 05:22 Hemoglobin A1c 6.8 % (4.5-5.6) H 12/14/22 05:22 Calcium 8.6 mg/dl (8.6-10.3) 12/14/22 05:22 Magnesium 1.8 mg/dl (1.7-2.4) 12/14/22 05:22 Total Bilirubin 0.9 mg/dl (0.2-1.0) 12/13/22 13:02 AST 20 U/L (13-39) 12/13/22 13:02 ALT 18 U/L (7-52) 12/13/22 13:02 Alkaline Phosphatase 93 U/L (34-104) 12/13/22 13:02 Troponin I High Sens 17.7 pg/ml (0-14) H 12/14/22 10:47 B-Natriuretic Peptide 1215 pg/ml (0-100) H 12/13/22 13:02 Total Protein 6.5 gm/dl (6.0-8.3) 12/13/22 13:02 Albumin 3.4 gm/dl (3.4-5.0) 12/13/22 13:02 Globulin 3.1 gm/dl (2.5-4.0) 12/13/22 13:02 Albumin/Globulin Ratio 1.1 (0.9-2) 12/13/22 13:02 Procalcitonin < 0.05 ng/ml (0-0.5) 12/14/22 05:22 Urine Color Yellow 12/13/22 17:11 Urine Appearance Clear (Clear) 12/13/22 17:11 Urine pH 8.5 (4.5-7.5) H 12/13/22 17:11 Ur Specific [place] 1.027 (1.000-1.030) 12/13/22 17:11 Urine Protein Trace (Negative) H 12/13/22 17:11 Urine Glucose (UA) 2+ (Negative) H 12/13/22 17:11 Urine Ketones Negative (Negative) 12/13/22 17:11 Urine Blood Negative (Negative) 12/13/22 17:11 Urine Nitrite Negative (Negative) 12/13/22 17:11 Urine Bilirubin Negative (Negative) 12/13/22 17:11 Urine Urobilinogen Negative (Negative) 12/13/22 17:11 Ur Leukocyte Esterase Negative (Negative) 12/13/22 17:11 Urine WBC (Auto) 1-5 /hpf (0-5) 12/13/22 17:11 Urine RBC (Auto) 0-4 /hpf (0-4) 12/13/22 17:11 U Hyaline Cast (Auto) 1-5 /lpf (0-5) 12/13/22 17:11 U Epithel Cells (Auto) 20-30 /lpf (0-5) H 12/13/22 17:11 Urine Bacteria (Auto) Negative (Negative) 12/13/22 17:11 Urine Yeast Not Reportable 12/13/22 17:11 Adenovirus (PCR) Not Detected (NotDetected) 12/13/22 13:07 B. pertussis DNA (PCR) Not Detected (NotDetected) 12/13/22 13:07 B.parapertussis DNA PCR Not Detected (NotDetected) 12/13/22 13:07 C. pneumoniae DNA (PCR) Not Detected (NotDetected) 12/13/22 13:07 Coronavirus OC43 (PCR) Not Detected (NotDetected) 12/13/22 13:07 Coronavirus HKU1 (PCR) Not Detected (NotDetected) 12/13/22 13:07 Coronavirus 229E (PCR) Not Detected (NotDetected) 12/13/22 13:07 SARS-CoV-2 (PCR) DETECTED (NotDetected) A* 12/13/22 13:07 Coronavirus NL63 (PCR) Not Detected (NotDetected) 12/13/22 13:07 Human Metapneumovir PCR Not Detected (NotDetected) 12/13/22 13:07 Influenza Type A (PCR) Not Detected (NotDetected) 12/13/22 13:07 Influenza Type B (PCR) Not Detected (NotDetected) 12/13/22 13:07 M. pneumoniae (PCR) Not Detected (NotDetected) 12/13/22 13:07 Parainfluenza 1 (PCR) Not Detected (NotDetected) 12/13/22 13:07 Parainfluenza 2 (PCR) Not Detected (NotDetected) 12/13/22 13:07 Parainfluenza 3 (PCR) Not Detected (NotDetected) 12/13/22 13:07 Parainfluenza 4 (PCR) Not Detected (NotDetected) 12/13/22 13:07 RSV (PCR) Not Detected (NotDetected) 12/13/22 13:07 Entero/Rhino (PCR) Not Detected (NotDetected) 12/13/22 13:07 Impressions Chest X-Ray 12/13/22 13:00 SINGLE VIEW CHEST CLINICAL HISTORY: Dyspnea FINDINGS: An AP, portable, upright chest radiograph is compared to chest x-ray and chest CT dated 07/02/2019. A right PICC line is in place. The tip projects over the cavoatrial junction. The heart is enlarged noting atherosclerotic calcification of the thoracic aorta. There is pulmonary vascular congestion with evidence of interstitial edema. Emphysema and chronic interstitial thickening is similar to previous. There are small pleural effusions with dependent consolidation. No pneumothorax is seen. The skeletal structures are osteopenic. There are chronic/healed left-sided rib fractures. Degenerative change is noted in the shoulders and spine. IMPRESSION: 1. Cardiomegaly and emphysema without evidence of congestive failure and pulmonary edema. 2. Small pleural effusions with dependent consolidation. Correlate clinically for evidence of a superimposed pneumonia. Radiographic follow-up to resolution is recommended. 3. The suspicious right upper lobe pulmonary lesion seen on prior CT scans is not well assessed. ACT 112: Negative or not required by law. Electronically signed by: Mak Skelton M.D. 12/13/2022 1:42 PM
--- NOTE | 2022-12-14 12:11 | Cardiology Consultation ---
Date of Consultation December 14, 2022 Assessment & Plan (1) Acute on chronic diastolic heart failure with preserved ejection fraction: (2) Severe mitral regurgitation: (3) CAD (coronary artery disease): (4) PVD (peripheral vascular disease): (5) Tobacco use disorder, continuous: (6) Pneumonia: Plan 72-year-old female with complex cardiovascular medical history presented to the emergency department with progressive shortness of breath secondary to acute on chronic heart failure and possible pneumonia. Continue IV Lasix 40 mg twice daily. Monitor fluid balance, daily weight, electrolytes, and GFR. Echocardiogram demonstrates inferior posterior wall motion abnormality c onsistent with known RCA chronic total occlusion. Minimally elevated troponins secondary to CHF. Clinical presentation not consistent with acute coronary syndrome/plaque rupture event. Continue dual antiplatelet therapy uninterrupted with recent drug-eluting stent implantation to the left main coronary artery. Antibiotics per internal medicine. History of Present Illness Reason for Consultation: acute chf Requesting Physician: Dr. Hernandez Attending Physician: Andi Kyle MD History of Present Illness 72-year-old female presents to the emergency department with progressive shortness of breath. Reports several presentations to [facility] over the past few weeks. Decided to come to [facility] for definitive treatment. Reports weight gain and intermittent lower extremity edema. Dyspnea without chest discomfort. No palpitations, lightheadedness, or dizziness. Hospitalized at [facility] in [place] in October where she suffered a PEA cardiac arrest post procedurally. Taken to the OR for I&D of suprapubic abscess and right great toe amputation. Postoperatively she suffered a cardiac arrest. Taken to the cardiac catheterization lab which demonstrated severe ostial left anterior descending artery stenosis. Severe mitral regurgitation noted per AYLIN as well. Patient was referred for stenting of the ostial LAD. A drug-eluting stent was placed from the left main extending into the proximal LAD 11/12/2022. Longstanding history of peripheral vascular disease and mesenteric ischemia. Patient positive for COVID-19 while hospitalized in October. Allergies Allergy/AdvReac Type Severity Reaction Status Date / Time methadone Allergy Severe "couldn't Verified 12/13/22 16:53 swallow/eyes coming out of head" nickel Allergy Severe swelling Verified 12/13/22 16:53 and infections nitroglycerin Allergy Intermediate DECREASED Verified 12/13/22 16:53 BP propoxyphene Allergy Intermediate edema to Verified 12/13/22 16:53 face/lips/tongue diclofenac Allergy Mild Rash Verified 12/13/22 16:53 hydrocodone Allergy Mild "severe Verified 12/13/22 16:53 constipation" levofloxacin [From Levaquin] Allergy Mild nausea/vomi Verified 12/13/22 16:53 ting Penicillins Allergy Mild severe Verified 12/13/22 16:53 diarrhea/rash sitagliptin [From Januvia] Allergy Mild rash Verified 03/21/19 18:20 "blood blisters" strawberry Allergy Mild Diarrhea Verified 03/21/19 18:20 Home Medications Medication Instructions Recorded Confirmed Type aspirin 81 mg tablet,delayed 81 mg PO QAM 11/06/18 12/13/22 History release atorvastatin 40 mg tablet 40 mg PO QPM 11/06/18 12/13/22 History buspirone 15 mg tablet 15 mg PO BID 11/06/18 12/13/22 History clopidogrel 75 mg tablet 75 mg PO QAM 11/06/18 12/13/22 History glipizide 10 mg tablet 10 mg PO QAM 11/06/18 12/13/22 History loratadine 10 mg tablet 10 mg PO QAM 11/06/18 12/13/22 History albuterol sulfate 90 mcg/actuation 2 puff inhalation Q4 PRN Shortness 11/16/18 12/13/22 History aerosol inhaler (Ventolin HFA) Of Breath dicyclomine 10 mg capsule 10 mg PO TID PRN Abdominal Pain 01/11/19 12/13/22 History calcium carbonate 600 mg calcium 600 mg PO BID 03/21/19 12/13/22 History (1,500 mg) tablet (Calcium) cholecalciferol (vitamin D3) 125 5,000 unit PO BID 03/21/19 12/13/22 History mcg (5,000 unit) tablet furosemide 20 mg tablet 40 mg PO QAM 03/21/19 12/13/22 History ondansetron 4 mg disintegrating 4 mg PO Q8H PRN Nausea 03/21/19 12/13/22 History tablet pantoprazole 40 mg tablet,delayed 40 mg PO DAILY 03/21/19 12/13/22 History release sucralfate 1 gram tablet (Carafate) 1 g PO ACHS 03/21/19 12/13/22 History oxycodone 5 mg tablet 5 mg PO Q6H PRN pain #14 tabs 10/25/19 12/13/22 Rx Bifidobacterium infantis 4 mg 4 mg PO DAILY 12/13/22 12/13/22 History capsule (Align) Zosyn Iv 1 dose IV TID 12/13/22 12/13/22 History ascorbic acid (vitamin C) 500 mg 500 mg PO DAILY 12/13/22 12/13/22 History tablet (Vitamin C) docusate sodium 50 mg capsule 50 mg PO HS 12/13/22 12/13/22 History duloxetine 30 mg capsule,delayed 30 mg PO AMHS 12/13/22 12/13/22 History release fluconazole 200 mg tablet 400 mg PO QAM 12/13/22 12/13/22 History fluticasone fur. 100 mcg-umeclid 1 inh inhalation DAILY 12/13/22 12/13/22 History 62.5 mcg-vilant 25 mcg inhalat.powder (Trelegy Ellipta) glipizide 10 mg tablet 5 mg PO QPM 12/13/22 12/13/22 History ipratropium 0.5 mg-albuterol 3 mg 3 ml inhalation Q4 PRN Shortness 12/13/22 12/13/22 History (2.5 mg base)/3 mL nebulization Of Breath Or Wheezing soln lidocaine 4 % topical patch 1 patch topical DAILY PRN Pain 12/13/22 12/13/22 History menthol 0.44 %-zinc oxide 20.6 % 1 applic topical DIRECTED PRN 12/13/22 12/13/22 History topical ointment (Calmoseptine) Sores on bottom metoprolol succinate 50 mg 50 mg PO QAM 12/13/22 12/13/22 History tablet,extended release 24 hr nicotine 14 mg/24 hr daily 1 patch transdermal DAILY 12/13/22 12/13/22 History transdermal patch nystatin 100,000 unit/gram topical 1 applic topical TID 12/13/22 12/13/22 History powder (Nyamyc) potassium chloride 20 mEq 20 meq PO .DAILY UD 12/13/22 12/13/22 History tablet,extended release(part/cryst) zinc 50 mg tablet 50 mg PO DAILY 12/13/22 12/13/22 History Patient History Medical History (Updated 12/14/22 @ 12:19 by Teja Case DO) Anemia Anxiety Pendleton esophagus COPD (chronic obstructive pulmonary disease) inhaler prn Coronary artery disease, occlusive Critical limb ischemia with history of revascularization of same extremity RLE CVA (cerebral vascular accident) 2008--slight left side weakness (no assistive devices)--follows with Dr. 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 Obesity (BMI 30.0-34.9) On anticoagulant therapy plavix daily Osteoarthritis PVD (peripheral vascular disease) Right upper lobe pulmonary nodule Surgical History H/O: hysterectomy History of appendectomy History of bilateral cataract extraction History of bilateral tubal ligation History of bronchoscopy History of cardiac cath x2 both @ [place]--2000 with 1 stent/2003--no stent, instead fem-pop bypass History of carotid endarterectomy 2009 on right side History of colonoscopy with polypectomy History of dilatation and curettage x3 History of endoscopic sinus surgery History of esophagogastroduodenoscopy (EGD) History of heart artery stent x1 before 2000? @ [place] History of repair of right rotator cuff x2 History of tooth extraction most teeth Status post femoral-popliteal bypass surgery 2004 Status post femoropopliteal bypass surgery 11/06/[address] Jara---thrombectomy/Femoral-femoral bypass Family History Sister Family history of diabetes mellitus Family history of esophageal cancer Family hx of colon cancer Sister Family history of diabetes mellitus Sister Family history of diabetes mellitus Sister Family history of diabetes mellitus Sister Family history of diabetes mellitus Sister Family history of diabetes mellitus Sister Family history of diabetes mellitus Brother Family history of diabetes mellitus Brother Family history of diabetes mellitus Brother Family history of diabetes mellitus Other Diabetes No family history of adverse response to anesthesia Stroke Social History Smoking Status: Former smoker Tobacco Type: Cigarettes Cigarettes Per Day: 20-40; Second Hand Exposure: Yes; Do You Dip or Chew Tobacco: No; Tobacco Cessation Education Requested by Patient: No Hx Alcohol Use: No Hx Substance Use: No Preferred Language: Serbian Communication Ability: [employer] Paraprofessional Required: No Beliefs That Will Affect Care: None Current Living Situation: Alone Current Living Situation Comment: Lives with daughter Other Information That Helps Us Care for You: No Feels Safe at Home: Yes Safety Concerns: Feels Safe At This Time Assistive Devices: Oxygen - Continuous Review of Systems Review of Systems: All systems reviewed & are unremarkable except as noted in Subjective Physical Exam Constitutional: well developed and well nourished; no acute distress Respiratory: normal respiratory effort; no respiratory distress and no labored breathing Auscultation: + crackles (Bases bilateral); no rhonchi and no wheezes Cardiovascular: Rate/Rhythm: regular rate and regular rhythm Heart Sounds: normal S1, normal S2 and + murmur (2/6 holosystolic murmur heard at the apex) Gastrointestinal (Abdomen): Inspection/Auscultation: normal bowel sounds; abdomen not distended Percussion/Palpation: abdomen soft; abdomen nontender, no guarding and abdomen not rigid Neurologic: CN's II-XI intact bilaterally and moves all extremities; no focal motor deficits Results & Data Vital Signs (Past 12 Hours) Vital Signs Temp Pulse Resp BP Pulse Ox O2 Del Method O2 Flow Rate 12/14/22 11:19 36.6 C 78 19 100/66 94 Nasal Cannula 2 12/14/22 10:02 79 22 91 Nasal Cannula 2 12/14/22 07:18 36.4 C L 88 20 103/66 97 Nasal Cannula 2 12/14/22 04:14 36.6 C 94 H 18 100/66 94 Nasal Cannula 2 12/14/22 00:11 Nasal Cannula 2 Laboratory Results Cardiac Enzymes 12/13/22 12/13/22 12/14/22 Range/Units 13:02 13:02 05:22 AST 20 (13-39) U/L Troponin I High Sens 15.5 H 16.0 H (0-14) pg/ml B-Natriuretic Peptide 1215 H (0-100) pg/ml 12/14/22 Range/Units 10:47 AST (13-39) U/L Troponin I High Sens 17.7 H (0-14) pg/ml B-Natriuretic Peptide (0-100) pg/ml Coagulation 12/13/22 Range/Units 13:02 B-Natriuretic Peptide 1215 H (0-100) pg/ml CBC 12/13/22 12/14/22 Range/Units 13:02 05:22 WBC 8.69 8.61 (4.8-10.8) K/ul RBC 3.18 L 3.22 L (4.20-5.40) M/uL Hgb 9.2 L 9.5 L (12.0-16.0) g/dl Hct 29.2 L 30.1 L (37.0-47.0) % Plt Count 312 311 (130-400) K/uL Neut # (Auto) 7.21 H 6.85 H (1.40-6.50) K/uL Lymph # (Auto) 0.89 L 1.04 L (1.20-3.40) K/uL [place]ahan # (Auto) 0.47 0.58 (0.11-0.59) K/uL Eos # (Auto) 0.08 0.09 (0.00-0.50) K/uL Baso # (Auto) 0.02 0.03 (0.00-0.20) K/uL Comprehensive Metabolic Panel 12/13/22 12/14/22 Range/Units 13:02 05:22 Sodium 139 140 (136-145) mmol/L Potassium 3.6 3.2 L (3.5-5.1) mmol/L Chloride 101 100 (98-107) mmol/L Carbon Dioxide 32 32 (21-32) mmol/L BUN 10 8 (6-23) mg/dl Creatinine 0.64 0.70 (0.6-1.2) mg/dl Glucose 121 H 90 (70-99(Fasting)) mg/dl Calcium 9.0 8.6 (8.6-10.3) mg/dl AST 20 (13-39) U/L ALT 18 (7-52) U/L Alkaline Phosphatase 93 (34-104) U/L Total Protein 6.5 (6.0-8.3) gm/dl Albumin 3.4 (3.4-5.0) gm/dl Intake and Output 12/13/22 12/14/22 12/14/22 22:59 06:59 14:59 Intake Total 100 / 1223.599 6126.333 / 1698.333 Output Total 500 / 500 Balance 100 / 1758.278 2781.333 / 1698.333 -500 / -500 Intake: IV 100 / 298.333 98.333 / 298.333 Acetaminophen 1,000 mg In 100 100 / 100 ml @ 400 mls/hr IV NOW STA Rx#: [id number] Piperacillin/Tazobactam 4.5 gm 98.333 / 98.333 In Dextrose 5% Mini-B 100 ml @ 25 mls/hr IV Q8H [facility] Rx#: [id number] Oral 1400 / 1400 Output: Urine 500 / 500 Other: Weight 72.1 kg 72.1 kg Weight Measurement Method Built in [facility] Patient Weight 12/15/22 06:59 Weight 72.1 kg
[2022-12-14] MEDS: ACETAMINOPHEN 325 MG TAB PO PRN ×2 (12:30→18:09)
[2022-12-14] MEDS: LIDOCAINE 5% 1 PATCH TD PRN (12:31)
[2022-12-14] MEDS ORDERED: OPTIRAY 320 125ml IV ONE (13:04)
--- NOTE | 2022-12-14 13:53 | CT Scan Report ---
CT angio chest PE protocol CT DOSE: 856.81 mGy.cm HISTORY: 72 years-old Female with PE. Acute shortness of breath TECHNIQUE: Multiple CTA images of the chest were obtained after the intravenous administration of 65 ml Optiray. Coronal and sagittal MIPS were obtained from the axial data set and were submitted for r Aqua-toolsiew. All measurements were obtained according to NASCET criteria. A dose lowering technique was ut ilized adhering to the principles of ALARA. COMPARISON: Chest radiograph of same day, CTA chest 07/02/2019 FINDINGS: CTA: Moderate cardiomegaly with extensive coronary artery calcifications. There is no pericardial effusion . Atherosclerosis of the thoracic aorta without aneurysm. No pulmonary emboli are identified. CT CHEST: Unremarkable thyroid. Nonspecific mild paratracheal lymphadenopathy measures up to 2.0 x 1.2 cm, prog ressed from prior. 1.9 x 1.1 cm right supraclavicular lymph node on image 181. 10 mm left supraclavic ular lymph node on image 187. Small pleural effusions. No pneumothorax. Intralobular septal thickenin g. Mild pulmonary emphysema. Mild bibasilar consolidation with subsegmental patchy airspace opacities of the left lung. Tracheal bronchus effusions with left lower lobe mucus plugging. Stable subpleural 1.3 x 0.9 cm nodule within the right upper lobe on image 142. No acute process of the imaged upper abdomen. Unremarkable soft tissues. Healing subacute appearing f ractures of the anterior right second through fifth ribs without significant displacement. Additional healing fractures of the anterior left second through eighth ribs without significant displacement. Healed chronic left-sided rib fractures. IMPRESSION: 1. No pulmonary emboli identified. 2. Cardiomegaly with pulmonary edema, small pleural effusions and bibasilar atelectasis. 3. Left lower lobe mucous plugging with patchy airspace opacities of the left lung. Correlate clinica lly to exclude superimposed pneumonia. 4. Nonspecific mediastinal and supraclavicular lymphadenopathy. Attention at follow-up is needed. If the adenopathy persists, the right supraclavicular lymph node would be amenable to percutaneous biops y. 5. Healing subacute nondisplaced bilateral anterior rib fractures. No pneumothorax. ACT 112: Negative or not required by law. The above report was generated using voice recognition software. It may contain grammatical, syntax o r spelling errors. Electronically signed by: Nilay Figueredo M.D. 12/14/2022 1:51 PM
[2022-12-14] MEDS: MAGNESIUM SULFATE / D5W 1 GM/100 ML BAG IV SCH ×2 (17:28→17:33)
[2022-12-14] MEDS: SODIUM CHLOR 7% 4 ML NEB NEB SCH (19:38)
[2022-12-14] MEDS: ATORVASTATIN 40 MG TAB PO SCH (20:16)
[2022-12-14] MEDS: DOCUSATE SODIUM SYRUP 100 MG/10 ML UDC PO SCH (20:20)
[2022-12-14] MEDS: ENOXAPARIN INJ 40 MG/0.4 ML SYR SQ SCH (22:43)
[2022-12-15 06:24] LABS: Basophils # (auto) 0.05 K/uL (0.00-0.20); Basophils % (auto) 0.7 %; Eosinophils # (auto) 0.16 K/uL (0.00-0.50); Eosinophils % (auto) 2.1 %; Hemoglobin 9.8 g/dl (12.0-16.0); Immature Granulocytes # (auto) 0.03 K/uL (0.01-0.20); Immature Granulocytes % (auto) 0.4 %; Lymphocytes # (auto) 0.95 K/uL (1.20-3.40); Lymphocytes % (auto) 12.5 %; Mean Corpuscular Hemoglobin 29.3 pg (25.0-34.0); Mean Corpuscular Hgb Conc 31.6 g/dL (32.0-36.0); Mean Corpuscular Volume 92.5 fL (80.0-100.0); Mean Platelet Volume 10.4 fL (9.4-12.4); Monocytes # (auto) 0.54 K/uL (0.11-0.59); Monocytes % (auto) 7.1 %; Neutrophils % (auto) 77.2 %; Platelet Count 324 K/uL (130-400); RDW Coefficient of Variation 15.3 % (11.5-14.5); RDW Standard Deviation 50.4 fL (36.4-46.3); Red Blood Count 3.35 M/uL (4.20-5.40); White Blood Count 7.63 K/ul (4.8-10.8)
[2022-12-15 06:32] LABS: Calcium 8.5 mg/dl (8.6-10.3); Creatinine Clr Calc Pharmacy 59.6 ml/min; Est GFR (African American) 84.8 ml/min; Est GFR (Non-African American) 73.1 ml/min; Potassium 3.1 mmol/L (3.5-5.1)
[2022-12-15] MEDS: SODIUM CHLOR 7% 4 ML NEB NEB SCH ×2 (06:58→19:13)
[2022-12-15] MEDS: ALBUT/IPRATROP 3MG/0.5MG NEB 3 ML VIAL NEB SCH ×2 (06:58→19:13)
[2022-12-15] MEDS: SUCRALFATE 1 GM TAB PO SCH ×4 (08:41→20:23)
[2022-12-15] MEDS: LORATADINE 10 MG TAB PO SCH (08:42)
[2022-12-15] MEDS: POTASSIUM CHLORIDE CRTAB 20 MEQ TABCR PO SCH (08:42)
[2022-12-15] MEDS: FLUCONAZOLE 100 MG TAB PO SCH (08:42)
[2022-12-15] MEDS: ZINC SULFATE 220 MG CAPSULE PO SCH (08:43)
[2022-12-15] MEDS: METOPROLOL SUCC 50MG EXT REL TAB PO SCH (08:43)
[2022-12-15] MEDS: ADVANCED PROBIOTIC 1250 MG CAPSULE PO SCH (08:44)
[2022-12-15] MEDS: ASCORBIC ACID 500 MG TAB PO SCH (08:44)
[2022-12-15] MEDS: CLOPIDOGREL BISULFATE 75 MG TAB PO SCH (08:44)
[2022-12-15] MEDS: CHOLECALCIFEROL 5,000 UNITS 125 MCG TAB PO SCH ×2 (08:44→20:29)
[2022-12-15] MEDS: ASPIRIN 81 MG ECTAB PO SCH (08:44)
[2022-12-15] MEDS: DULoxetine HCL 30 MG CAP PO SCH ×2 (08:45→20:25)
[2022-12-15] MEDS: PANTOprazole 40 MG TAB PO SCH (08:45)
[2022-12-15] MEDS: PIPER/TAZO 4.5g in D5W MINI-B 100 ML IV SCH ×2 (08:45→15:28)
[2022-12-15] MEDS: busPIRone 15 MG TAB PO SCH ×2 (08:45→20:27)
[2022-12-15] MEDS: FLUTICASONE FUROATE 100MCG 14 PUFFS/INHALER INH SCH (08:46)
[2022-12-15] MEDS: NICOTINE 14 MG/24 HR PATCH TD SCH (08:46)
[2022-12-15] MEDS: UMECLIDINIUM/VILANTEROL 62.5/25MCG 7 PUFFS/INHALER INH SCH (08:46)
[2022-12-15] MEDS: MICONAZOLE NITRATE POWDER 85 GM EXT SCH ×3 (08:46→20:30)
[2022-12-15] MEDS: CALCIUM CARBONATE 1250MG TAB PO SCH ×2 (08:48→20:27)
[2022-12-15] MEDS: INSULIN ASPART PER UNIT CHARGE SC SCH ×4 (08:50→20:16)
[2022-12-15] MEDS: FUROSEMIDE 40 MG/4 ML VIAL IV SCH ×2 (09:03→18:03)
[2022-12-15] MEDS ORDERED: POTASSIUM CHLORIDE CRTAB 20 MEQ TABCR PO STA (09:18)
--- NOTE | 2022-12-15 11:57 | Cardiology Progress Note ---
Date of Service December 15, 2022 Assessment & Plan (1) Acute on chronic diastolic heart failure with preserved ejection fraction: (2) Severe mitral regurgitation: (3) CAD (coronary artery disease): (4) PVD (peripheral vascular disease): (5) Tobacco use disorder, continuous: (6) Pneumonia: (7) Hypokalemia: Plan 72-year-old female with complex cardiovascular medical history presented to the emergency department with progressive shortness of breath secondary to acute on chronic heart failure and possible pneumonia. Continue IV Lasix 40 mg twice daily. Monitor fluid balance, daily weight, electrolytes, and GFR. Echocardiogram demonstrates inferior posterior wall motion abnormality consistent with known RCA chronic total occlusion. Minimally elevated troponins secondary to CHF. Clinical presentation not consistent with acute coronary syndrome/plaque rupture event. Continue dual antiplatelet therapy uninterrupted with recent drug-eluting stent implantation to the left main coronary artery. Antibiotics per internal medicine. Admission and Anticipated Discharge Date Admission Date: December 13, 2022 Subjective Patient seen examined the bedside. Feeling better from a cardiovascular perspective. Shortness of breath improved. No orthopnea or PND. Telemetry reveals sinus rhythm in the 70s-80s. Fluid balance -965 cc. Review of Systems Review of Systems: All systems reviewed & are unremarkable except as noted in Subjective Physical Exam Constitutional: well developed and well nourished; no acute distress Respiratory: normal respiratory effort; no respiratory distress and no labored breathing Auscultation: + diminished lung sounds (Bases bilateral); no rales, no rhonchi and no wheezes Cardiovascular: Rate/Rhythm: regular rate and regular rhythm Heart Sounds: normal S1, normal S2 and + murmur (2/6 holosystolic murmur heard at the apex) Gastrointestinal (Abdomen): Inspection/Auscultation: normal bowel sounds; abdomen not distended Percussion/Palpation: abdomen soft; abdomen nontender, no guarding and abdomen not rigid Neurologic: CN's II-XI intact bilaterally and moves all extremities; no focal motor deficits Results & Data Vital Signs (Past 12 Hours) Vital Signs Temp Pulse Pulse Resp BP Pulse Ox O2 Del Method 12/15/22 11:34 36.6 C 81 25 H 106/66 94 Nasal Cannula 12/15/22 11:20 Nasal Cannula 12/15/22 10:23 76 12/15/22 07:59 36.7 C 84 22 92/64 L 93 Nasal Cannula 12/15/22 06:58 78 20 94 Nasal Cannula 12/15/22 04:03 36.8 C 73 19 103/46 L 93 Nasal Cannula O2 Flow Rate 12/15/22 11:34 2 12/15/22 11:20 2 12/15/22 10:23 12/15/22 07:59 2 12/15/22 06:58 2 12/15/22 04:03 2 Laboratory Results CBC 12/15/22 Range/Units 05:48 WBC 7.63 (4.8-10.8) K/ul RBC 3.35 L (4.20-5.40) M/uL Hgb 9.8 L (12.0-16.0) g/dl Hct 31.0 L (37.0-47.0) % Plt Count 324 (130-400) K/uL Neut # (Auto) 5.90 (1.40-6.50) K/uL Lymph # (Auto) 0.95 L (1.20-3.40) K/uL Ritchie # (Auto) 0.54 (0.11-0.59) K/uL Eos # (Auto) 0.16 (0.00-0.50) K/uL Baso # (Auto) 0.05 (0.00-0.20) K/uL Comprehensive Metabolic Panel 12/15/22 Range/Units 05:48 Sodium 138 (136-145) mmol/L Potassium 3.1 L (3.5-5.1) mmol/L Chloride 99 (98-107) mmol/L Carbon Dioxide 31 (21-32) mmol/L BUN 12 (6-23) mg/dl Creatinine 0.80 (0.6-1.2) mg/dl Glucose 134 H (70-99(Fasting)) mg/dl Calcium 8.5 L (8.6-10.3) mg/dl Intake and Output 12/14/22 12/15/22 12/15/22 22:59 06:59 14:59 Intake Total 204.167 / 884.167 100 / 884.167 Output Total 550 / 1950 400 / 1950 400 / 400 Balance -345.833 / -1065.833 -300 / -1065.833 -400 / -400 Intake: IV 204.167 / 404.167 100 / 404.167 Magnesium Sulfate / D5w 1 gm In 104.167 / 104.167 100 ml @ 50 mls/hr IV Q2H [facility] Rx#:[id number] Piperacillin/Tazobactam 4.5 gm 100 / 300 100 / 300 In Dextrose 5% Mini-B 100 ml @ 25 mls/hr IV Q8H [facility] Rx#: [id number] Output: Urine 550 / 1950 400 / 1950 400 / 400 Other: Weight 73.6 kg Weight Measurement Method Built in [facility]
[2022-12-15] MEDS: oxyCODONE HCL IR 5 MG TAB (IMMEDIATE RELEASE) PO PRN ×2 (12:24→20:52)
[2022-12-15] MEDS: ACETAMINOPHEN 325 MG TAB PO PRN (14:59)
[2022-12-15] MEDS ORDERED: SODIUM CHLORIDE 0.9% 500 ML IV ONE ×2 (16:52→18:05)
--- NOTE | 2022-12-15 17:05 | Hospitalist Progress Note ---
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 Recently hospitalized from 11/04 to 11/[address] [facility] [place] [facility] She was also admitted at [facility] from 12/02 to 12/03 with shortness of breath thought secondary to CHF. She was diuresed with Lasix and Diamox and was discharged home. COVID-19 was tested positive on 11/22; doubt she is still infectious from it Chest x-ray personally reviewed; bilateral infiltrates. ? Pulmonary edema BNP elevated Echocardiogram results reviewed; EF of 55 to 60% with moderate-sized inferior and posterior wall abnormality with hypokinesis to akinesis of the segments. Obtain CTA chest PE protocol to rule out pulmonary embolism. Continue on IV Lasix 40 mg twice daily. Strict input and output Currently on Zosyn; to complete treatment till 12/16 as per infectious disease recommendation (while she was in [facility]). Cardiology on board; appreciate further recommendation. Airway clearance with flutter valve, DuoNeb and hypertonic saline. 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 Wound care consulted 12/15 continue IV Zosyn Postoperative cardiac arrest and had cardiac cath showing multivessel disease refused surgery s/p PCI to LM/LAD Reports chest pain from chest compression. Chest x-ray reveals healed left rib fractures On Toprol-XL, Plavix, aspirin and statin. History of COPD and asthma No obvious wheezing Continue home inhalers and nebs as needed COVID-19 first diagnosed in November 21 Received remdesivir and Decadron and completed steroid taper Still positive No isolation required Type II days mellitus Hold home p.o. medications Insulin sliding scale We will follow blood sugars and HbA1c levels History of PVD and multiple procedures as mentioned in HPI and past surgical history On aspirin Plavix and statin History of CVA On aspirin Plavix and statin History of hypertension On metoprolol We will monitor Hyperlipidemia On statin Depression General anxiety disorder On buspirone and duloxetine GERD On Protonix and sucralfate Anemia Hemoglobin 9.2 Stable since admission in [place] History of GI bleed in the past DVT prophylaxis Lovenox for now Disposition Telemetry floor Time spent evaluating patient, direct bedside care, chart review, placing orders, interpretation of diagnostic studies, discussion with consultants, patient, and family members, as well as other required patient management activities is 60 minutes Please note the above document was generated using voice recognition software. It may contain grammatical, syntax or spelling errors. Any formal questions or concerns about the content, text or information contained within the body of this dictation should be directly addressed to the provider for clarification Admission and Anticipated Discharge Date Admission Date: December 13, 2022 Subjective Follow-up for CHF exacerbation, etc. Seen resting in bed, comfortable, not in distress On 2 L Which is her baseline States she feels fine overall no chest pain, dyspnea, palpitations, dizziness Denies pain over the wound site No other new symptoms Review of Systems Review of Systems: all noted and negative except for above Physical Exam Physical Exam: General- oriented x 3, not in distress, speaks in sentences with no effort or accessory muscle use Eyes- anicteric Neck- no JVD Lungs- clear breath sounds bilaterally, no rales/wheezes Heart- normal rate, regular rhythm; no murmurs Abdomen- normal bowel sounds, nondistended, soft, nontender Wound VAC in place on the left suprapubic area No surrounding erythema/warmth/tenderness Extremities- no pretibial edema, no calf tenderness Neuro- alert, oriented x 3; no gross focal neurologic deficits Skin- warm & dry Results & Data Results & Data Vital Signs (Past 12 Hours) Vital Signs Temp Pulse Pulse Resp BP Pulse Ox O2 Del Method 12/15/22 16:09 89/61 L 12/15/22 15:42 36.4 C L 81 18 90/61 L 99 Nasal Cannula 12/15/22 15:05 78 12/15/22 11:34 36.6 C 81 25 H 106/66 94 Nasal Cannula 12/15/22 11:20 Nasal Cannula 12/15/22 10:23 76 12/15/22 07:59 36.7 C 84 22 92/64 L 93 Nasal Cannula 12/15/22 06:58 78 20 94 Nasal Cannula O2 Flow Rate 12/15/22 16:09 12/15/22 15:42 2 12/15/22 15:05 12/15/22 11:34 2 12/15/22 11:20 2 12/15/22 10:23 12/15/22 07:59 2 12/15/22 06:58 2 all noted and reviewed including below
[2022-12-15] MEDS: LIDOCAINE 5% 1 PATCH TD PRN (18:21)
[2022-12-15] MEDS: DOCUSATE SODIUM SYRUP 100 MG/10 ML UDC PO SCH (20:24)
[2022-12-15] MEDS: ATORVASTATIN 40 MG TAB PO SCH (20:26)
[2022-12-16] MEDS: ENOXAPARIN INJ 40 MG/0.4 ML SYR SQ SCH ×2 (00:08→22:45)
[2022-12-16] MEDS: PIPER/TAZO 4.5g in D5W MINI-B 100 ML IV SCH ×4 (00:10→22:40)
[2022-12-16] MEDS: oxyCODONE HCL IR 5 MG TAB (IMMEDIATE RELEASE) PO PRN ×3 (04:27→17:09)
[2022-12-16 06:42] LABS: Basophils # (auto) 0.04 K/uL (0.00-0.20); Basophils % (auto) 0.4 %; Eosinophils # (auto) 0.13 K/uL (0.00-0.50); Eosinophils % (auto) 1.4 %; Hematocrit (blood only) 29.9 % (37.0-47.0); Hemoglobin 9.5 g/dl (12.0-16.0); Immature Granulocytes # (auto) 0.05 K/uL (0.01-0.20); Immature Granulocytes % (auto) 0.5 %; Lymphocytes # (auto) 0.91 K/uL (1.20-3.40); Lymphocytes % (auto) 9.5 %; Mean Corpuscular Hemoglobin 29.2 pg (25.0-34.0); Mean Corpuscular Hgb Conc 31.8 g/dL (32.0-36.0); Mean Platelet Volume 10.2 fL (9.4-12.4); Monocytes # (auto) 0.69 K/uL (0.11-0.59); Monocytes % (auto) 7.2 %; Neutrophils # (auto) 7.76 K/uL (1.40-6.50); Platelet Count 352 K/uL (130-400); RDW Coefficient of Variation 15.6 % (11.5-14.5); RDW Standard Deviation 50.9 fL (36.4-46.3); Red Blood Count 3.25 M/uL (4.20-5.40); White Blood Count 9.58 K/ul (4.8-10.8)
[2022-12-16] MEDS: SODIUM CHLOR 7% 4 ML NEB NEB SCH ×2 (07:02→19:26)
[2022-12-16] MEDS: ALBUT/IPRATROP 3MG/0.5MG NEB 3 ML VIAL NEB SCH ×2 (07:02→19:26)
[2022-12-16 07:19] LABS: BUN Creatinine Ratio 17.6 (10-20); Calcium 8.6 mg/dl (8.6-10.3); Est GFR (African American) 100.6 ml/min; Est GFR (Non-African American) 86.8 ml/min; Potassium 3.7 mmol/L (3.5-5.1)
[2022-12-16] MEDS: SUCRALFATE 1 GM TAB PO SCH ×4 (08:55→21:12)
[2022-12-16] MEDS: UMECLIDINIUM/VILANTEROL 62.5/25MCG 7 PUFFS/INHALER INH SCH (08:55)
[2022-12-16] MEDS: FLUTICASONE FUROATE 100MCG 14 PUFFS/INHALER INH SCH (08:56)
[2022-12-16] MEDS: NICOTINE 14 MG/24 HR PATCH TD SCH (08:56)
[2022-12-16] MEDS: CALCIUM CARBONATE 1250MG TAB PO SCH ×2 (08:57→21:17)
[2022-12-16] MEDS: DULoxetine HCL 30 MG CAP PO SCH ×2 (08:57→21:15)
[2022-12-16] MEDS: ADVANCED PROBIOTIC 1250 MG CAPSULE PO SCH (08:57)
[2022-12-16] MEDS: LIDOCAINE 5% 1 PATCH TD PRN (08:57)
[2022-12-16] MEDS: CLOPIDOGREL BISULFATE 75 MG TAB PO SCH (08:57)
[2022-12-16] MEDS: CHOLECALCIFEROL 5,000 UNITS 125 MCG TAB PO SCH ×2 (08:57→21:13)
[2022-12-16] MEDS: ASPIRIN 81 MG ECTAB PO SCH (08:57)
[2022-12-16] MEDS: ASCORBIC ACID 500 MG TAB PO SCH (08:57)
[2022-12-16] MEDS: busPIRone 15 MG TAB PO SCH ×2 (08:57→21:12)
[2022-12-16] MEDS: FLUCONAZOLE 100 MG TAB PO SCH (08:57)
[2022-12-16] MEDS: METOPROLOL SUCC 50MG EXT REL TAB PO SCH (08:58)
[2022-12-16] MEDS: DICYCLOMINE HCL 10 MG CAP PO PRN (08:58)
[2022-12-16] MEDS: PANTOprazole 40 MG TAB PO SCH (08:58)
[2022-12-16] MEDS: LORATADINE 10 MG TAB PO SCH (08:58)
[2022-12-16] MEDS: ZINC SULFATE 220 MG CAPSULE PO SCH (08:58)
[2022-12-16] MEDS: POTASSIUM CHLORIDE CRTAB 20 MEQ TABCR PO SCH (08:58)
[2022-12-16] MEDS: INSULIN ASPART PER UNIT CHARGE SC SCH ×4 (09:13→21:31)
[2022-12-16] MEDS: MICONAZOLE NITRATE POWDER 85 GM EXT SCH ×3 (09:15→21:18)
--- NOTE | 2022-12-16 10:47 | XRay Report ---
XR chest 1V portable HISTORY: 72 years-old Female chf acute shortness of breath COMPARISON: 12/14/2022 TECHNIQUE: AP view of the chest FINDINGS: Cardiac silhouette is enlarged. Persistent pulmonary edema has mildly improved. A right-sided PICC is noted with distal tip in the expected location of the mid SVC. Emphysema. 1.3 cm ill-defined right u pper lobe nodular density. Ill-defined left greater than right bibasilar predominant airspace opaciti es. Small pleural effusions. Surgical clips within the right neck. Degenerative changes of the should ers and spine. IMPRESSION: 1. Cardiomegaly with mildly improved pulmonary edema. 2. Persistent small pleural effusions. 3. 1.3 cm right upper lobe nodule again seen, stable from 2020. 4. Pulmonary emphysema. 5. Stable positioning of the right-sided PICC. ACT 112: Negative or not required by law. The above report was generated using voice recognition software. It may contain grammatical, syntax o r spelling errors. Electronically signed by: Nilay Figueredo M.D. 12/16/2022 10:45 AM
[2022-12-16] MEDS ORDERED: SODIUM CHLORIDE 0.9% 250 ML IV ONE (13:32)
--- NOTE | 2022-12-16 14:56 | Electrocardiogram Report ---
Test Reason : Blood Pressure : / mmHG Vent. Rate : 080 BPM Atrial Rate : 080 BPM P-R Int : 130 ms QRS Dur : 080 ms QT Int : 410 ms P-R-T Axes : 000 119 134 degrees QTc Int : 472 ms Poor data quality, interpretation may be adversely affected likely limb lead reversal Normal sinus rhythm Lateral infarct , age undetermined Abnormal ECG When compared with ECG of 13-DEC-2022 13:26, Premature ventricular complexes are no longer Present QRS axis Shifted right Lateral infarct is now Present Nonspecific T wave abnormality now evident in Lateral leads Confirmed by Ediwn Kitchen ([id number]) on 12/16/2022 2:56:40 PM Referred By: REFERRED SELF Confirmed By:Chiki Kitchen
--- NOTE | 2022-12-16 15:22 | Hospitalist Progress Note ---
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 [place]04 [place] [facility] was also admitted at [facility] from 12/02 to 12/03 with shortness of breath thought secondary to CHF. She was diuresed with Lasix and Diamox and was discharged home. COVID-19 was tested positive on 11/22; doubt she is still infectious from it Chest x-ray personally reviewed; bilateral infiltrates. ? Pulmonary edema BNP elevated Echocardiogram results reviewed; EF of 55 to 60% with moderate-sized inferior and posterior wall abnormality with hypokinesis to akinesis of the segments. Obtain CTA chest PE protocol to rule out pulmonary embolism. Continue on IV Lasix 40 mg twice daily. Strict input and output Currently on Zosyn; to complete treatment till 12/16 as per infectious disease recommendation (while she was in [facility] Cardiology on board; appreciate further recommendation. Airway clearance with flutter valve, DuoNeb and hypertonic saline. 12/16 hypotensive yesterday, given total of 1 L IV fluids bolus BP improved hypotensive again around noon, 250cc IV fluid bolus given BP improved Lasix being held lower Metoprolol to 25mg? 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 Wound care consulted 12/16 last day of IV Zosyn Postoperative cardiac arrest and had cardiac cath showing multivessel disease refused surgery s/p PCI to LM/LAD Reports chest pain from chest compression. Chest x-ray reveals healed left rib fractures On Toprol-XL, Plavix, aspirin and statin. History of COPD and asthma No obvious wheezing Continue home inhalers and nebs as needed COVID-19 first diagnosed in November 21 Received remdesivir and Decadron and completed steroid taper Still positive No isolation required Type II days mellitus Hold home p.o. medications Insulin sliding scale We will follow blood sugars and HbA1c levels History of PVD and multiple procedures as mentioned in HPI and past surgical history On aspirin Plavix and statin History of CVA On aspirin Plavix and statin History of hypertension On metoprolol We will monitor Hyperlipidemia On statin Depression General anxiety disorder On buspirone and duloxetine GERD On Protonix and sucralfate Anemia Hemoglobin 9.2 Stable since admission in [place] History of GI bleed in the past DVT prophylaxis Lovenox for now Disposition Telemetry floor Admission and Anticipated Discharge Date Admission Date: December 13, 2022 Subjective ff up for acute CHF etc BP noted to be systolic 70s patient asymptomatic resting in bed, sitting up not in distress, watching movie from Ipad states she feels fine overall breathing continues to improve has some chest wall pain with coughing no chest pain, dyspnea, palpitations, dizziness no other new symptoms Review of Systems Review of Systems: all noted and negative except for above Physical Exam Physical Exam: General- oriented x 3, not in distress, speaks in sentences with no effort or accessory muscle use Eyes- anicteric Neck- no JVD Lungs- mild rhonchi at the bases no wheezing Heart- normal rate, regular rhythm; no murmurs Abdomen- normal bowel sounds, nondistended, soft, nontender Extremities- no pretibial edema, no calf tenderness Neuro- alert, oriented x 3; no gross focal neurologic deficits Skin- warm & dry Results & Data Results & Data Vital Signs (Past 12 Hours) Vital Signs Temp Pulse Resp BP Pulse Ox O2 Del Method O2 Flow Rate 12/16/22 15:12 36.7 C 69 20 94/61 L 95 Nasal Cannula 12/16/22 11:49 Nasal Cannula 2 12/16/22 11:43 36.8 C 76 18 72/56 L 97 Nasal Cannula 2 12/16/22 08:00 Nasal Cannula 2 12/16/22 07:30 36.9 C 78 20 119/75 98 Nasal Cannula 2 12/16/22 07:04 88 21 91 Nasal Cannula 2.5 all noted and reviewed including below
--- NOTE | 2022-12-16 15:36 | Cardiology Progress Note ---
Date of Service December 16, 2022 Assessment & Plan (1) Acute on chronic diastolic heart failure with preserved ejection fraction: (2) Severe mitral regurgitation: (3) CAD (coronary artery disease): (4) PVD (peripheral vascular disease): (5) Tobacco use disorder, continuous: (6) Pneumonia: (7) Hypokalemia: Plan 72-year-old female with complex cardiovascular medical history presented to the emergency department with progressive shortness of breath secondary to acute on chronic heart failure and possible pneumonia. Volume status improved. Lasix on hold due to hypotension. Recommend discontinuation of IV furosemide. Initiate oral furosemide 40 mg daily and spironolactone 12.5 mg daily. Toprol-XL reduced to 25 mg daily due to hypotension. Echocardiogram demonstrates inferior posterior wall motion abnormality consistent with known RCA chronic total occlusion. Minimally elevated troponins secondary to CHF. Clinical presentation not consistent with acute coronary syndrome/plaque rupture event. Continue dual antiplatelet therapy uninterrupted with recent drug-eluting stent implantation to the left main coronary artery. Antibiotics per internal medicine. Admission and Anticipated Discharge Date Admission Date: December 13, 2022 Subjective Patient seen examined at the bedside. Reports feeling better today. Chest discomfort associated with rib fractures unchanged. No orthopnea, PND, or edema. Furosemide held over the last 24 hours due to hypotension. Renal function remained stable. Review of Systems Review of Systems: All systems reviewed & are unremarkable except as noted in Subjective Physical Exam Constitutional: well developed and well nourished; no acute distress Respiratory: normal respiratory effort; no respiratory distress and no labored breathing Auscultation: + diminished lung sounds (Bases bilateral); no crackles, no rales, no rhonchi and no wheezes Cardiovascular: Rate/Rhythm: regular rate and regular rhythm Heart Sounds: normal S1, normal S2 and + murmur (2/6 holosystolic murmur heard at the apex) Gastrointestinal (Abdomen): Inspection/Auscultation: normal bowel sounds; abdomen not distended Percussion/Palpation: abdomen soft; abdomen nontender, no guarding and abdomen not rigid Neurologic: CN's II-XI intact bilaterally and moves all extremities; no focal motor deficits Results & Data Vital Signs (Past 12 Hours) Vital Signs Temp Pulse Resp BP Pulse Ox O2 Del Method O2 Flow Rate 12/16/22 15:12 36.7 C 69 20 94/61 L 95 Nasal Cannula 12/16/22 11:49 Nasal Cannula 2 12/16/22 11:43 36.8 C 76 18 72/56 L 97 Nasal Cannula 2 12/16/22 08:00 Nasal Cannula 2 12/16/22 07:30 36.9 C 78 20 119/75 98 Nasal Cannula 2 12/16/22 07:04 88 21 91 Nasal Cannula 2.5 Laboratory Results CBC 12/16/22 Range/Units 06:05 WBC 9.58 (4.8-10.8) K/ul RBC 3.25 L (4.20-5.40) M/uL Hgb 9.5 L (12.0-16.0) g/dl Hct 29.9 L (37.0-47.0) % Plt Count 352 (130-400) K/uL Neut # (Auto) 7.76 H (1.40-6.50) K/uL Lymph # (Auto) 0.91 L (1.20-3.40) K/uL Bee # (Auto) 0.69 H (0.11-0.59) K/uL Eos # (Auto) 0.13 (0.00-0.50) K/uL Baso # (Auto) 0.04 (0.00-0.20) K/uL Comprehensive Metabolic Panel 12/16/22 Range/Units 06:05 Sodium 140 (136-145) mmol/L Potassium 3.7 (3.5-5.1) mmol/L Chloride 104 (98-107) mmol/L Carbon Dioxide 29 (21-32) mmol/L BUN 12 (6-23) mg/dl Creatinine 0.68 (0.6-1.2) mg/dl Glucose 136 H (70-99(Fasting)) mg/dl Calcium 8.6 (8.6-10.3) mg/dl Intake and Output 12/16/22 12/16/22 12/16/22 06:59 14:59 22:59 Intake Total 100 / 1300 350 / 350 Balance 100 / 500 350 / 350 Intake: IV 100 / 1300 350 / 350 Piperacillin/Tazobactam 4.5 gm 100 / 300 100 / 100 In Dextrose 5% Mini-B 100 ml @ 25 mls/hr IV Q8H [facility] Rx#: [id number] Sodium Chloride 0.9% 250 ml @ 250 / 250 999 mls/hr IV .Q16M [facility] Rx#: [id number] Other: # Unmeasured Voids 2 Weight 74 kg Weight Measurement Method Built in [facility]
[2022-12-16] MEDS: SPIRONOLACTONE 12.5 MG TAB PO SCH (16:15)
[2022-12-16] MEDS ORDERED: SODIUM CHLOR 7% 4 ML NEB NEB SCH (19:00)
[2022-12-16] MEDS ORDERED: ALBUMIN 25% 25 GM/100 ML VIAL IV ONE ×2 (19:44→23:31)
[2022-12-16] MEDS: DOCUSATE SODIUM SYRUP 100 MG/10 ML UDC PO SCH (21:13)
[2022-12-16] MEDS: ATORVASTATIN 40 MG TAB PO SCH (21:16)
[2022-12-16 21:45] LABS: Calcium 9.5 mg/dl (8.6-10.3); Potassium 5.1 mmol/L (3.5-5.1)
[2022-12-16 21:49] LABS: BUN Creatinine Ratio 20.5 (10-20); Creatinine Clr Calc Pharmacy 58.2 ml/min; Est GFR (African American) 81.1 ml/min
[2022-12-17] MEDS: ACETAMINOPHEN 325 MG TAB PO PRN ×3 (02:54→16:40)
[2022-12-17] MEDS: ALBUT/IPRATROP 3MG/0.5MG NEB 3 ML VIAL NEB SCH ×2 (07:09→19:18)
[2022-12-17] MEDS: SODIUM CHLOR 7% 4 ML NEB NEB SCH ×2 (07:09→19:18)
[2022-12-17] MEDS ORDERED: FUROSEMIDE 40 MG TAB PO SCH (09:00)
[2022-12-17] MEDS: INSULIN ASPART PER UNIT CHARGE SC SCH ×4 (09:02→21:55)
[2022-12-17] MEDS: PIPER/TAZO 4.5g in D5W MINI-B 100 ML IV SCH (09:06)
[2022-12-17] MEDS: DICYCLOMINE HCL 10 MG CAP PO PRN (09:08)
[2022-12-17] MEDS: LORATADINE 10 MG TAB PO SCH (09:08)
[2022-12-17] MEDS: SUCRALFATE 1 GM TAB PO SCH ×4 (09:08→21:55)
[2022-12-17] MEDS: CLOPIDOGREL BISULFATE 75 MG TAB PO SCH (09:09)
[2022-12-17] MEDS: PANTOprazole 40 MG TAB PO SCH (09:10)
[2022-12-17] MEDS: FLUTICASONE FUROATE 100MCG 14 PUFFS/INHALER INH SCH (09:11)
[2022-12-17] MEDS: UMECLIDINIUM/VILANTEROL 62.5/25MCG 7 PUFFS/INHALER INH SCH (09:11)
[2022-12-17] MEDS: busPIRone 15 MG TAB PO SCH ×2 (09:11→21:52)
[2022-12-17] MEDS: ASPIRIN 81 MG ECTAB PO SCH (09:11)
[2022-12-17] MEDS: DULoxetine HCL 30 MG CAP PO SCH ×2 (09:12→21:53)
[2022-12-17] MEDS: CALCIUM CARBONATE 1250MG TAB PO SCH ×2 (09:12→21:53)
[2022-12-17] MEDS: ADVANCED PROBIOTIC 1250 MG CAPSULE PO SCH (09:12)
[2022-12-17] MEDS: ASCORBIC ACID 500 MG TAB PO SCH (09:12)
[2022-12-17] MEDS: POTASSIUM CHLORIDE CRTAB 20 MEQ TABCR PO SCH (09:12)
[2022-12-17] MEDS: LIDOCAINE 5% 1 PATCH TD PRN (09:13)
[2022-12-17] MEDS: ZINC SULFATE 220 MG CAPSULE PO SCH (09:13)
[2022-12-17] MEDS: CHOLECALCIFEROL 5,000 UNITS 125 MCG TAB PO SCH ×2 (09:18→21:53)
[2022-12-17] MEDS: oxyCODONE HCL IR 5 MG TAB (IMMEDIATE RELEASE) PO PRN ×3 (09:44→22:13)
[2022-12-17] MEDS: NICOTINE 14 MG/24 HR PATCH TD SCH (09:45)
[2022-12-17] MEDS: METOPROLOL SUCC 25MG EXT REL TAB PO SCH (09:52)
[2022-12-17] MEDS: SPIRONOLACTONE 12.5 MG TAB PO SCH (09:56)
[2022-12-17] MEDS ORDERED: CYCLOBENZAPRINE HCL 5 MG TAB PO STA (11:21)
[2022-12-17] MEDS: MICONAZOLE NITRATE POWDER 85 GM EXT SCH ×3 (12:04→22:00)
[2022-12-17 12:12] LABS: BUN Creatinine Ratio 18.3 (10-20); Calcium 10.1 mg/dl (8.6-10.3); Est GFR (African American) 97.9 ml/min; Est GFR (Non-African American) 84.5 ml/min; Potassium 4.5 mmol/L (3.5-5.1)
--- NOTE | 2022-12-17 12:48 | Cardiology Progress Note ---
Date of Service December 17, 2022 Assessment & Plan (1) Acute on chronic diastolic heart failure with preserved ejection fraction: (2) Severe mitral regurgitation: (3) CAD (coronary artery disease): (4) PVD (peripheral vascular disease): (5) Tobacco use disorder, continuous: (6) Pneumonia: (7) Hypokalemia: Plan 72-year-old female with complex cardiovascular medical history presented to the emergency department with progressive shortness of breath secondary to acute on chronic heart failure and possible pneumonia. Volume status improved. Intravenous furosemide discontinued. Oral furosemide held this morning due to hypotension. Continue low-dose spironolactone as to lerated. Toprol-XL reduced to 25 mg daily due to hypotension. Echocardiogram demonstrates inferior posterior wall motion abnormality consistent with known RCA chronic total occlusion. Minimally elevated troponins secondary to CHF. Clinical presentation not consistent with acute coronary syndrome/plaque rupture event. Continue dual antiplatelet therapy uninterrupted with recent drug-eluting stent implantation to the left main coronary artery. Antibiotics per internal medicine. Admission and Anticipated Discharge Date Admission Date: December 13, 2022 Subjective Patient seen examined the bedside. Feeling better today. Notes scant sputum production. No edema, orthopnea, or PND. Musculoskeletal chest discomfort unchanged. Review of Systems Review of Systems: All systems reviewed & are unremarkable except as noted in Subjective Physical Exam Constitutional: well developed and well nourished; no acute distress Respiratory: normal respiratory effort; no respiratory distress and no labored breathing Auscultation: + diminished lung sounds (Bases bilateral); no crackles, no rales, no rhonchi and no wheezes Cardiovascular: Rate/Rhythm: regular rate and regular rhythm Heart Sounds: normal S1, normal S2 and + murmur (2/6 holosystolic murmur heard at the apex) Gastrointestinal (Abdomen): Inspection/Auscultation: normal bowel sounds; abdomen not distended Percussion/Palpation: abdomen soft; abdomen nontender, no guarding and abdomen not rigid Neurologic: CN's II-XI intact bilaterally and moves all extremities; no focal motor deficits Results & Data Vital Signs (Past 12 Hours) Vital Signs Temp Pulse Resp BP Pulse Ox O2 Del Method O2 Flow Rate 12/17/22 07:30 36.7 C 88 18 90/62 L 96 Nasal Cannula 12/17/22 07:09 84 18 83 L Nasal Cannula 92 12/17/22 02:52 36.5 C 93 H 20 104/72 92 Nasal Cannula
[2022-12-17 13:47] LABS: Magnesium 1.9 mg/dl (1.7-2.4)
--- NOTE | 2022-12-17 17:04 | Hospitalist Progress Note ---
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 Recently hospitalized from 11/04 to 11/24 at [facility] She was also admitted at [facility] from 12/02 to 12/03 with shortness of breath thought secondary to CHF. She was diuresed with Lasix and Diamox and was discharged home. COVID-19 was tested positive on 11/22; doubt she is still infectious from it Chest x-ray personally reviewed; bilateral infiltrates. ? Pulmonary edema BNP elevated Echocardiogram results reviewed; EF of 55 to 60% with moderate-sized inferior and posterior wall abnormality with hypokinesis to akinesis of the segments. Obtain CTA chest PE protocol to rule out pulmonary embolism. Continue on IV Lasix 40 mg twice daily. Strict input and output Currently on Zosyn; to complete treatment till 12/16 as per infectious disease recommendation (while she was in [facility]). Cardiology on board; appreciate further recommendation. Airway clearance with flutter valve, DuoNeb and hypertonic saline. 12/16 hypotensive yesterday, given total of 1 L IV fluids bolus BP improved hypotensive again around noon, 250cc IV fluid bolus given BP improved Lasix being held lower Metoprolol to 25mg? AM cortisol normal TSH pending 12/17 BP still on the lower normal side Lasix converted to p.o. 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 Wound care consulted 12/16 last day of IV Zosyn Postoperative cardiac arrest and had cardiac cath showing multivessel disease refused surgery s/p PCI to LM/LAD Reports chest pain from chest compression. Chest x-ray reveals healed left rib fractures On Toprol-XL, Plavix, aspirin and statin. History of COPD and asthma No obvious wheezing Continue home inhalers and nebs as needed COVID-19 first diagnosed in November 21 Received remdesivir and Decadron and completed steroid taper Still positive No isolation required Type II days mellitus Hold home p.o. medications Insulin sliding scale We will follow blood sugars and HbA1c levels History of PVD and multiple procedures as mentioned in HPI and past surgical history On aspirin Plavix and statin History of CVA On aspirin Plavix and statin History of hypertension On metoprolol Management per above Hyperlipidemia On statin Depression General anxiety disorder On buspirone and duloxetine GERD On Protonix and sucralfate Anemia Hemoglobin 9.2 Stable since admission in [place] History of GI bleed in the past DVT prophylaxis Lovenox for now Disposition Telemetry floor Admission and Anticipated Discharge Date Admission Date: December 13, 2022 Subjective Follow-up for CHF, etc. Seen resting in bed, sitting up,Not in distress Chief complaint is left lower leg cramping Breathing is improving No chest pain, dizziness, palpitations No other new symptoms Review of Systems Review of Systems: all noted and negative except for above Physical Exam Physical Exam: General- oriented x 3, not in distress, speaks in sentences with no effort or accessory muscle use Eyes- anicteric Neck- no JVD Lungs-mild rales at the bases Heart- normal rate, regular rhythm; no murmurs Abdomen- normal bowel sounds, nondistended, soft, nontender Extremities- no pretibial edema, no calf tenderness Neuro- alert, oriented x 3; no gross focal neurologic deficits Skin- warm & dry Results & Data Results & Data Vital Signs (Past 12 Hours) Vital Signs Temp Pulse Resp BP Pulse Ox O2 Del Method O2 Flow Rate 12/17/22 16:00 37.0 C 59 L 18 91/50 L 12/17/22 14:00 62 16 89/65 L 93 Nasal Cannula 2 12/17/22 12:00 36.6 C 97 H 16 74/49 L 98 Nasal Cannula 12/17/22 07:30 36.7 C 88 18 90/62 L 96 Nasal Cannula 12/17/22 07:09 84 18 83 L Nasal Cannula 92 all noted and reviewed including below
[2022-12-17] MEDS: ATORVASTATIN 40 MG TAB PO SCH (21:52)
[2022-12-17] MEDS: DOCUSATE SODIUM SYRUP 100 MG/10 ML UDC PO SCH (21:55)
[2022-12-17] MEDS: ENOXAPARIN INJ 40 MG/0.4 ML SYR SQ SCH (21:56)
[2022-12-18 06:49] LABS: BUN Creatinine Ratio 20.3 (10-20); Calcium 9.4 mg/dl (8.6-10.3); Creatinine Clr Calc Pharmacy 70.8 ml/min; Est GFR (African American) 100.1 ml/min; Est GFR (Non-African American) 86.4 ml/min; Potassium 4.1 mmol/L (3.5-5.1)
[2022-12-18] MEDS: SODIUM CHLOR 7% 4 ML NEB NEB SCH (06:59)
[2022-12-18] MEDS: ALBUT/IPRATROP 3MG/0.5MG NEB 3 ML VIAL NEB SCH ×3 (06:59→19:39)
[2022-12-18] MEDS: UMECLIDINIUM/VILANTEROL 62.5/25MCG 7 PUFFS/INHALER INH SCH (08:06)
[2022-12-18] MEDS: LIDOCAINE 5% 1 PATCH TD PRN (08:06)
[2022-12-18] MEDS: FLUTICASONE FUROATE 100MCG 14 PUFFS/INHALER INH SCH (08:06)
[2022-12-18] MEDS: ZINC SULFATE 220 MG CAPSULE PO SCH (08:07)
[2022-12-18] MEDS: ASPIRIN 81 MG ECTAB PO SCH (08:07)
[2022-12-18] MEDS: SPIRONOLACTONE 12.5 MG TAB PO SCH (08:07)
[2022-12-18] MEDS: METOPROLOL SUCC 25MG EXT REL TAB PO SCH (08:07)
[2022-12-18] MEDS: CLOPIDOGREL BISULFATE 75 MG TAB PO SCH (08:07)
[2022-12-18] MEDS: ASCORBIC ACID 500 MG TAB PO SCH (08:07)
[2022-12-18] MEDS: NICOTINE 14 MG/24 HR PATCH TD SCH (08:08)
[2022-12-18] MEDS: busPIRone 15 MG TAB PO SCH ×2 (08:08→21:26)
[2022-12-18] MEDS: LORATADINE 10 MG TAB PO SCH (08:08)
[2022-12-18] MEDS: CHOLECALCIFEROL 5,000 UNITS 125 MCG TAB PO SCH ×2 (08:08→21:26)
[2022-12-18] MEDS: DULoxetine HCL 30 MG CAP PO SCH ×2 (08:08→21:26)
[2022-12-18] MEDS: ADVANCED PROBIOTIC 1250 MG CAPSULE PO SCH (08:08)
[2022-12-18] MEDS: SUCRALFATE 1 GM TAB PO SCH ×4 (08:08→21:29)
[2022-12-18] MEDS: CALCIUM CARBONATE 1250MG TAB PO SCH ×2 (08:08→21:27)
[2022-12-18] MEDS: DICYCLOMINE HCL 10 MG CAP PO PRN (08:08)
[2022-12-18] MEDS: INSULIN ASPART PER UNIT CHARGE SC SCH ×4 (08:10→21:28)
[2022-12-18] MEDS: oxyCODONE HCL IR 5 MG TAB (IMMEDIATE RELEASE) PO PRN ×3 (08:21→23:45)
[2022-12-18] MEDS: MICONAZOLE NITRATE POWDER 85 GM EXT SCH ×3 (10:10→21:31)
--- NOTE | 2022-12-18 11:55 | Cardiology Progress Note ---
Date of Service December 18, 2022 Assessment & Plan (1) Acute on chronic diastolic heart failure with preserved ejection fraction: (2) Severe mitral regurgitation: (3) CAD (coronary artery disease): (4) PVD (peripheral vascular disease): (5) Tobacco use disorder, continuous: (6) Pneumonia: (7) Hypokalemia: Plan 72-year-old female with complex cardiovascular medical history presented to the emergency department with progressive shortness of breath secondary to acute on chronic heart failure and possible pneumonia. Volume status improved. Intravenous furosemide discontinued. Toprol-XL reduced to 25 mg daily due to hypotension. Echocardiogram demonstrates inferior posterior wall motion abnormality consistent with known RCA chronic total occlusion. Minimally elevated troponins secondary to CHF. Clinical presentation not consistent with acute coronary syndrome/plaque rupture event. Continue dual antiplatelet therapy uninterrupted with recent drug-eluting stent implantation to the left main coronary artery. Antibiotics per internal medicine. 12/18/2022 Still with rhonchorous cough but slowly improving. No exam findings of volume overload We will continue spironolactone at 12.5 mg/day Resume furosemide as blood pressure allows Continue reduced dose of metoprolol sucks Dual antiplatelet therapy without interruption Admission and Anticipated Discharge Date Admission Date: December 13, 2022 Subjective Patient seen and examined, chart, medications, telemetry reviewed. Feels just okay today. Notes up to bathroom frequently for urination. No worsening shortness of breath. No chest pains, tachypalpitations. Still with coarse rhonchorous cough Review of Systems Review of Systems: All systems reviewed & are unremarkable except as noted in Subjective Physical Exam Constitutional: well developed and well nourished; no acute distress Eyes: PERRL, conjunctivae normal, anicteric sclerae Neck: trachea midline, no thyromegaly Respiratory: normal respiratory effort; no respiratory distress and no labored breathing Auscultation: + diminished lung sounds (Bases bilateral) and + rhonchi (With forced cough); no crackles, no rales and no wheezes Cardiovascular: Rate/Rhythm: regular rate and regular rhythm Heart Sounds: normal S1, normal S2 and + murmur (2/6 holosystolic murmur heard at the apex) Gastrointestinal (Abdomen): Inspection/Auscultation: normal bowel sounds; abdomen not distended Percussion/Palpation: abdomen soft; abdomen nontender, no guarding and abdomen not rigid Neurologic: CN's II-XI intact bilaterally and moves all extremities; no focal motor deficits Results & Data Vital Signs (Past 12 Hours) Vital Signs Temp Pulse Pulse Resp BP Pulse Ox O2 Del Method 12/18/22 06:00 84 12/18/22 06:00 Nasal Cannula 12/18/22 08:14 36.8 C 90 18 104/58 L 92 Nasal Cannula 12/18/22 07:03 88 20 90 Nasal Cannula 12/18/22 03:52 36.3 C L 83 20 95/66 L 90 Nasal Cannula 12/17/22 23:56 36.6 C 86 18 99/72 L 92 Nasal Cannula O2 Flow Rate 12/18/22 06:00 12/18/22 06:00 2 12/18/22 08:14 2.0 12/18/22 07:03 2 12/18/22 03:52 2 12/17/22 23:56 2 Laboratory Results Laboratory Results - last 24 hr 12/17/22 12/17/22 12/17/22 11:30 16:25 21:18 Sodium 139 Potassium 4.5 Chloride 103 Carbon Dioxide 29 Anion Gap 7 BUN 13 Creatinine 0.71 Est Cr Clr Drug Dosing 68.0 Est GFR ( Amer) 97.9 Est GFR (Non-Af Amer) 84.5 BUN/Creatinine Ratio 18.3 Glucose 180 H POC Glucose 74 116 H Calcium 10.1 Magnesium 1.9 12/18/22 12/18/22 12/18/22 05:38 07:19 11:20 Sodium 138 Potassium 4.1 Chloride 102 Carbon Dioxide 29 Anion Gap 7 BUN 14 Creatinine 0.69 Est Cr Clr Drug Dosing 70.8 Est GFR ( Amer) 100.1 Est GFR (Non-Af Amer) 86.4 BUN/Creatinine Ratio 20.3 H Glucose 140 H POC Glucose 133 H 157 H Calcium 9.4 Magnesium
[2022-12-18] MEDS: PANTOprazole 40 MG TAB PO SCH (12:09)
--- NOTE | 2022-12-18 12:18 | XRay Report ---
SINGLE VIEW CHEST CLINICAL HISTORY: Congestive heart failure FINDINGS: An AP, portable, upright chest radiograph is study dated 12/16/2022 and correlated with ches t CT dated 12/14/2022. The examination is degraded by portable technique and apical lordotic positioni ng. A right PICC line is unchanged position. The heart is enlarged noting atherosclerotic calcificati on of the thoracic aorta. Pulmonary vascular congestion persists. Emphysema and chronic interstitial thickening is similar to previous. Trace pleural effusions are suspected with dependent scarring/atel ectasis. No pneumothorax is seen. The skeletal structures are osteopenic. There are chronic/healed le ft-sided rib fractures. Degenerative change is noted in the shoulders and spine. Surgical clips are s een in the right lower neck. IMPRESSION: 1. Cardiomegaly and emphysema with evidence of congestive failure. 2. Trace pleural effusions. 3. The suspicious right upper lobe pulmonary lesion seen on prior CT scans is not well assessed. ACT 112: Negative or not required by law. Electronically signed by: Mak Skelton M.D. 12/18/2022 12:17 PM
[2022-12-18] MEDS ORDERED: FUROSEMIDE INJ 20 MG/2 ML VIAL IV ONE ×2 (12:53→18:00)
[2022-12-18] MEDS: ACETYLCYSTEINE 10% INHAL SOLN 4 ML **DISPENSED BY RESP. INH SCH ×2 (13:12→19:39)
[2022-12-18] MEDS: CYCLOBENZAPRINE HCL 5 MG TAB PO PRN (13:58)
[2022-12-18] MEDS: ACETAMINOPHEN 325 MG TAB PO PRN (17:04)
[2022-12-18] MEDS ORDERED: CYCLOBENZAPRINE HCL 5 MG TAB PO STA (18:35)
[2022-12-18] MEDS: ATORVASTATIN 40 MG TAB PO SCH (21:27)
[2022-12-18] MEDS: DOCUSATE SODIUM SYRUP 100 MG/10 ML UDC PO SCH (21:28)
[2022-12-18] MEDS: ENOXAPARIN INJ 40 MG/0.4 ML SYR SQ SCH (21:31)
[2022-12-19] MEDS: ALBUT/IPRATROP 3MG/0.5MG NEB 3 ML VIAL NEB SCH ×4 (00:24→19:15)
[2022-12-19] MEDS: oxyCODONE HCL IR 5 MG TAB (IMMEDIATE RELEASE) PO PRN ×3 (05:43→21:58)
[2022-12-19] MEDS: ACETYLCYSTEINE 10% INHAL SOLN 4 ML **DISPENSED BY RESP. INH SCH ×2 (07:25→19:15)
[2022-12-19 08:01] LABS: Calcium 9.5 mg/dl (8.6-10.3); Creatinine Clr Calc Pharmacy 74.8 ml/min; Est GFR (African American) 102.1 ml/min; Est GFR (Non-African American) 88.1 ml/min; Potassium 3.5 mmol/L (3.5-5.1)
[2022-12-19] MEDS: CLOPIDOGREL BISULFATE 75 MG TAB PO SCH (08:47)
[2022-12-19] MEDS: METOPROLOL SUCC 25MG EXT REL TAB PO SCH (08:47)
[2022-12-19] MEDS: PANTOprazole 40 MG TAB PO SCH (08:47)
[2022-12-19] MEDS: busPIRone 15 MG TAB PO SCH ×2 (08:48→20:47)
[2022-12-19] MEDS: ASCORBIC ACID 500 MG TAB PO SCH (08:48)
[2022-12-19] MEDS: SPIRONOLACTONE 12.5 MG TAB PO SCH (08:48)
[2022-12-19] MEDS: DULoxetine HCL 30 MG CAP PO SCH ×2 (08:48→20:49)
[2022-12-19] MEDS: LORATADINE 10 MG TAB PO SCH (08:48)
[2022-12-19] MEDS: CALCIUM CARBONATE 1250MG TAB PO SCH ×2 (08:48→20:47)
[2022-12-19] MEDS: ADVANCED PROBIOTIC 1250 MG CAPSULE PO SCH (08:48)
[2022-12-19] MEDS: CHOLECALCIFEROL 5,000 UNITS 125 MCG TAB PO SCH ×2 (08:48→20:47)
[2022-12-19] MEDS: ZINC SULFATE 220 MG CAPSULE PO SCH (08:49)
[2022-12-19] MEDS: ASPIRIN 81 MG ECTAB PO SCH (08:49)
[2022-12-19] MEDS: UMECLIDINIUM/VILANTEROL 62.5/25MCG 7 PUFFS/INHALER INH SCH (08:49)
[2022-12-19] MEDS: SUCRALFATE 1 GM TAB PO SCH ×4 (08:49→20:47)
[2022-12-19] MEDS: FLUTICASONE FUROATE 100MCG 14 PUFFS/INHALER INH SCH (08:49)
[2022-12-19] MEDS: NICOTINE 14 MG/24 HR PATCH TD SCH (08:50)
[2022-12-19] MEDS: LIDOCAINE 5% 1 PATCH TD PRN (08:51)
[2022-12-19] MEDS: MICONAZOLE NITRATE POWDER 85 GM EXT SCH ×3 (08:52→20:50)
[2022-12-19] MEDS: ACETAMINOPHEN 325 MG TAB PO PRN (09:02)
[2022-12-19] MEDS: INSULIN ASPART PER UNIT CHARGE SC SCH ×4 (09:02→21:43)
--- NOTE | 2022-12-19 12:23 | Hospitalist Progress Note ---
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 Recently hospitalized from 11/04 to 11/24 at [facility] She was also admitted at [facility] from 12/02 to 12/03 with shortness of breath thought secondary to CHF. She was diuresed with Lasix and Diamox and was discharged home. COVID-19 was tested positive on 11/22; doubt she is still infectious from it Chest x-ray personally reviewed; bilateral infiltrates. ? Pulmonary edema BNP elevated Echocardiogram results reviewed; EF of 55 to 60% with moderate-sized inferior and posterior wall abnormality with hypokinesis to akinesis of the segments. Obtain CTA chest PE protocol to rule out pulmonary embolism. Continue on IV Lasix 40 mg twice daily. Strict input and output Currently on Zosyn; to complete treatment till 12/16 as per infectious disease recommendation (while she was in [facility]). Cardiology on board; appreciate further recommendation. Airway clearance with flutter valve, DuoNeb and hypertonic saline. 12/16 hypotensive yesterday, given total of 1 L IV fluids bolus BP improved hypotensive again around noon, 250cc IV fluid bolus given BP improved Lasix being held lower Metoprolol to 25mg? AM cortisol normal TSH pending 12/17 BP still on the lower normal side Lasix converted to p.o. with Aldactone Metoprolol reduced to 25 mg Continue to monitor closely 12/18 on PO Lasix, Aldactone, Metoprolol given IV Lasix 20mg repeat CXR: 1. Cardiomegaly and emphysema with evidence of congestive failure. 2. Trace pleural effusions. 3. The suspicious right upper lobe pulmonary lesion seen on prior CT scans is not well assessed. 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 Wound care consulted 12/16 last day of IV Zosyn Postoperative cardiac arrest and had cardiac cath showing multivessel disease refused surgery s/p PCI to LM/LAD Reports chest pain from chest compression. Chest x-ray reveals healed left rib fractures On Toprol-XL, Plavix, aspirin and statin. History of COPD and asthma No obvious wheezing Continue home inhalers management per #1 COVID-19 first diagnosed in November 21 Received remdesivir and Decadron and completed steroid taper Still positive No isolation required Type II days mellitus Hold home p.o. medications Insulin sliding scale We will follow blood sugars and HbA1c levels History of PVD and multiple procedures as mentioned in HPI and past surgical history On aspirin Plavix and statin History of CVA On aspirin Plavix and statin History of hypertension On metoprolol Management per above Hyperlipidemia On statin Depression General anxiety disorder On buspirone and duloxetine GERD On Protonix and sucralfate Anemia Hemoglobin 9.2 Stable since admission in [place] History of GI bleed in the past DVT prophylaxis Lovenox for now Disposition Telemetry floor Admission and Anticipated Discharge Date Admission Date: December 13, 2022 Subjective ff up for acute respiratory failure, etc resting in bed, not in distress reports having some dyspnea, cough today no chest pain Review of Systems Review of Systems: all noted and negative except for above Physical Exam Physical Exam: General- oriented x 3, not in distress, speaks in sentences with no effort or accessory muscle use Eyes- anicteric Neck- no JVD Lungs-mild rhonchi BL bases no wheezing Heart- normal rate, regular rhythm; no murmurs Abdomen- normal bowel sounds, nondistended, soft, nontender Extremities- no pretibial edema, no calf tenderness Neuro- alert, oriented x 3; no gross focal neurologic deficits Skin- warm & dry Results & Data Results & Data Vital Signs (Past 12 Hours) Vital Signs Temp Pulse Pulse Resp BP Pulse Ox O2 Del Method 12/19/22 11:10 36.6 C 87 21 90/65 L 90 Nasal Cannula 12/19/22 08:00 62 12/19/22 08:00 Nasal Cannula 12/19/22 07:15 36.7 C 88 19 101/64 92 Nasal Cannula 12/19/22 07:37 78 20 90 Nasal Cannula 12/19/22 03:34 36.7 C 83 18 103/73 93 Nasal Cannula 12/19/22 00:26 77 89 L Nasal Cannula O2 Flow Rate 12/19/22 11:10 3.0 12/19/22 08:00 12/19/22 08:00 2 12/19/22 07:15 3.0 12/19/22 07:37 2 12/19/22 03:34 2 12/19/22 00:26 2 all noted and reviewed including below
[2022-12-19] MEDS: CYCLOBENZAPRINE HCL 5 MG TAB PO PRN ×2 (12:27→20:54)
--- NOTE | 2022-12-19 12:27 | Hospitalist Progress Note ---
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 Recently [place] 11/04 [place] 11[place] [facility] [place] was also admitted at [facility] from 12/02 to 12/03 with shortness of breath thought secondary to CHF. She was diuresed with Lasix and Diamox and was discharged home. COVID-19 was tested positive on 11/22; doubt she is still infectious from it Chest x-ray personally reviewed; bilateral infiltrates. ? Pulmonary edema BNP elevated Echocardiogram results reviewed; EF of 55 to 60% with moderate-sized inferior and posterior wall abnormality with hypokinesis to akinesis of the segments. Obtain CTA chest PE protocol to rule out pulmonary embolism. Continue on IV Lasix 40 mg twice daily. Strict input and output Currently on Zosyn; to complete treatment till 12/16 as per infectious disease recommendation (while she was in [facility] Cardiology on board; appreciate further recommendation. Airway clearance with flutter valve, DuoNeb and hypertonic saline. 12/16 hypotensive yesterday, given total of 1 L IV fluids bolus BP improved hypotensive again around noon, 250cc IV fluid bolus given BP improved Lasix being held lower Metoprolol to 25mg? AM cortisol normal TSH pending 12/17 BP still on the lower normal side Lasix converted to p.o. with Aldactone Metoprolol reduced to 25 mg Continue to monitor closely 12/18 on PO Lasix, Aldactone, Metoprolol given IV Lasix 20mg repeat CXR: 1. Cardiomegaly and emphysema with evidence of congestive failure. 2. Trace pleural effusions. 3. The suspicious right upper lobe pulmonary lesion seen on prior CT scans is not well assessed. 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 Wound care consulted 12/16 last day of IV Zosyn Postoperative cardiac arrest and had cardiac cath showing multivessel disease refused surgery s/p PCI to LM/LAD Reports chest pain from chest compression. Chest x-ray reveals healed left rib fractures On Toprol-XL, Plavix, aspirin and statin. History of COPD and asthma No obvious wheezing Continue home inhalers management per #1 COVID-19 first diagnosed in November 21 Received remdesivir and Decadron and completed steroid taper Still positive No isolation required Type II days mellitus Hold home p.o. medications Insulin sliding scale We will follow blood sugars and HbA1c levels History of PVD and multiple procedures as mentioned in HPI and past surgical history On aspirin Plavix and statin History of CVA On aspirin Plavix and statin History of hypertension On metoprolol Management per above Hyperlipidemia On statin Depression General anxiety disorder On buspirone and duloxetine GERD On Protonix and sucralfate Anemia Hemoglobin 9.2 Stable since admission in [place] History of GI bleed in the past DVT prophylaxis Lovenox for now Disposition Telemetry floor Admission and Anticipated Discharge Date Admission Date: December 13, 2022 Subjective ff up for respiratory failure, etc seen resting in bed, comfortable on 3 L NC states she feels improved compared to yesterday breathing is improving has some rib pain no other new symptoms Review of Systems Review of Systems: all noted and negative except for above Physical Exam Physical Exam: General- oriented x 3, not in distress, speaks in sentences with no effort or accessory muscle use Eyes- anicteric Neck- no JVD Lungs- clear breath sounds bilaterally, no rales/wheezes Heart- normal rate, regular rhythm; no murmurs Abdomen- normal bowel sounds, nondistended, soft, nontender Extremities- no pretibial edema, no calf tenderness Neuro- alert, oriented x 3; no gross focal neurologic deficits Skin- warm & dry Results & Data Results & Data Vital Signs (Past 12 Hours) Vital Signs Temp Pulse Pulse Resp BP Pulse Ox O2 Del Method 12/19/22 11:10 36.6 C 87 21 90/65 L 90 Nasal Cannula 12/19/22 08:00 62 12/19/22 08:00 Nasal Cannula 12/19/22 07:15 36.7 C 88 19 101/64 92 Nasal Cannula 12/19/22 07:37 78 20 90 Nasal Cannula 12/19/22 03:34 36.7 C 83 18 103/73 93 Nasal Cannula O2 Flow Rate 12/19/22 11:10 3.0 12/19/22 08:00 12/19/22 08:00 2 12/19/22 07:15 3.0 12/19/22 07:37 2 12/19/22 03:34 2 all noted and reviewed including below
--- NOTE | 2022-12-19 13:07 | Cardiology Progress Note ---
Date of Service December 19, 2022 Assessment & Plan (1) Acute on chronic diastolic heart failure with preserved ejection fraction: (2) Severe mitral regurgitation: (3) CAD (coronary artery disease): (4) PVD (peripheral vascular disease): (5) Tobacco use disorder, continuous: (6) Pneumonia: (7) Hypokalemia: Plan 72-year-old female with complex cardiovascular medical history presented to the emergency department with progressive shortness of breath secondary to acute on chronic heart failure and possible pneumonia. Volume status improved. Intravenous furosemide discontinued. Toprol-XL reduced to 25 mg daily due to hypotension. Echocardiogram demonstrates inferior posterior wall motion abnormality consistent with known RCA chronic total occlusion. Minimally elevated troponins secondary to CHF. Clinical presentation not consistent with acute coronary syndrome/plaque rupture event. Continue dual antiplatelet therapy uninterrupted with recent drug-eluting stent implantation to the left main coronary artery. Antibiotics per internal medicine. 12/18/2022 Still with rhonchorous cough but slowly improving. No exam findings of volume overload We will continue spironolactone at 12.5 mg/day Resume furosemide as blood pressure allows Continue reduced dose of metoprolol succinate Dual antiplatelet therapy without interruption 12/19/2022 1. Pneumonia/bronchitis: Pulmonary status improved but still with rhonchorous cough notes clearing secretions. Patient on antibiotic therapies no signs of volume overload current 2. Acute on chronic congestive heart failure currently compensated without evidence of volume overload. We will continue spironolactone. Hold furosemide 3. Atherosclerotic coronary disease status post left main/LAD stent: Continue beta-ragini with metoprolol succinate 25 mg/day. Continue dual antiplatelet therapy without interruption 4. Atherosclerotic peripheral vascular disease with wound VAC in place to right groin lesion. Patient has follow-up with vascular surgery Tuesday may need to be rescheduled we will follow with patient tomorrow Admission and Anticipated Discharge Date Admission Date: December 13, 2022 Subjective Patient seen and examined, chart, medications, telemetry reviewed. Patient feels somewhat better today still coughing but clearing secretions. No dizziness or lightheadedness no edema Right groin incision still draining through wound VAC with only mild tenderness Physical Exam Constitutional: well developed and well nourished; no acute distress Eyes: PERRL, conjunctivae normal, anicteric sclerae Neck: trachea midline, no thyromegaly Respiratory: normal respiratory effort; no respiratory distress and no labored breathing Auscultation: + diminished lung sounds (Bases bilateral) and + rhonchi (With forced cough); no crackles, no rales and no wheezes Cardiovascular: Rate/Rhythm: regular rate and regular rhythm Heart Sounds: normal S1, normal S2 and + murmur (2/6 holosystolic murmur heard at the apex) Gastrointestinal (Abdomen): Inspection/Auscultation: normal bowel sounds; abdomen not distended Percussion/Palpation: abdomen soft; abdomen nontender, no guarding and abdomen not rigid Neurologic: CN's II-XI intact bilaterally and moves all extremities; no focal motor deficits Results & Data Vital Signs (Past 12 Hours) Vital Signs Temp Pulse Pulse Resp BP Pulse Ox O2 Del Method 12/19/22 11:10 36.6 C 87 21 90/65 L 90 Nasal Cannula 12/19/22 08:00 62 12/19/22 08:00 Nasal Cannula 12/19/22 07:15 36.7 C 88 19 101/64 92 Nasal Cannula 12/19/22 07:37 78 20 90 Nasal Cannula 12/19/22 03:34 36.7 C 83 18 103/73 93 Nasal Cannula O2 Flow Rate 12/19/22 11:10 3.0 12/19/22 08:00 12/19/22 08:00 2 12/19/22 07:15 3.0 12/19/22 07:37 2 12/19/22 03:34 2
[2022-12-19] MEDS: ATORVASTATIN 40 MG TAB PO SCH (20:47)
[2022-12-19] MEDS: DOCUSATE SODIUM SYRUP 100 MG/10 ML UDC PO SCH (20:48)
[2022-12-19] MEDS: ENOXAPARIN INJ 40 MG/0.4 ML SYR SQ SCH (22:55)
[2022-12-20] MEDS: ALBUT/IPRATROP 3MG/0.5MG NEB 3 ML VIAL NEB SCH ×4 (00:50→19:16)
[2022-12-20 06:49] LABS: BUN Creatinine Ratio 16.4 (10-20); Calcium 9.8 mg/dl (8.6-10.3); Creatinine Clr Calc Pharmacy 88.6 ml/min; Est GFR (African American) 107.8 ml/min; Est GFR (Non-African American) 93.1 ml/min; Potassium 3.7 mmol/L (3.5-5.1)
[2022-12-20] MEDS: ACETYLCYSTEINE 10% INHAL SOLN 4 ML **DISPENSED BY RESP. INH SCH ×2 (07:15→19:16)
[2022-12-20] MEDS: INSULIN ASPART PER UNIT CHARGE SC SCH ×4 (08:48→20:43)
[2022-12-20] MEDS: CYCLOBENZAPRINE HCL 5 MG TAB PO PRN (08:49)
[2022-12-20] MEDS: oxyCODONE HCL IR 5 MG TAB (IMMEDIATE RELEASE) PO PRN ×3 (08:49→23:07)
[2022-12-20] MEDS: LORATADINE 10 MG TAB PO SCH (08:49)
[2022-12-20] MEDS: METOPROLOL SUCC 25MG EXT REL TAB PO SCH (08:49)
[2022-12-20] MEDS: SPIRONOLACTONE 12.5 MG TAB PO SCH (08:49)
[2022-12-20] MEDS: CLOPIDOGREL BISULFATE 75 MG TAB PO SCH (08:49)
[2022-12-20] MEDS: DICYCLOMINE HCL 10 MG CAP PO PRN (08:49)
[2022-12-20] MEDS: DULoxetine HCL 30 MG CAP PO SCH ×2 (08:49→20:45)
[2022-12-20] MEDS: ZINC SULFATE 220 MG CAPSULE PO SCH (08:49)
[2022-12-20] MEDS: busPIRone 15 MG TAB PO SCH ×2 (08:50→20:45)
[2022-12-20] MEDS: SUCRALFATE 1 GM TAB PO SCH ×4 (08:50→20:45)
[2022-12-20] MEDS: LIDOCAINE 5% 1 PATCH TD PRN (08:50)
[2022-12-20] MEDS: ASPIRIN 81 MG ECTAB PO SCH (08:50)
[2022-12-20] MEDS: CHOLECALCIFEROL 5,000 UNITS 125 MCG TAB PO SCH ×2 (08:50→20:45)
[2022-12-20] MEDS: ASCORBIC ACID 500 MG TAB PO SCH (08:50)
[2022-12-20] MEDS: PANTOprazole 40 MG TAB PO SCH (08:50)
[2022-12-20] MEDS: ADVANCED PROBIOTIC 1250 MG CAPSULE PO SCH (08:50)
[2022-12-20] MEDS: NICOTINE 14 MG/24 HR PATCH TD SCH (08:50)
[2022-12-20] MEDS: CALCIUM CARBONATE 1250MG TAB PO SCH ×2 (08:50→20:45)
[2022-12-20] MEDS: MICONAZOLE NITRATE POWDER 85 GM EXT SCH ×3 (08:51→20:45)
[2022-12-20] MEDS: UMECLIDINIUM/VILANTEROL 62.5/25MCG 7 PUFFS/INHALER INH SCH (08:51)
[2022-12-20] MEDS: FLUTICASONE FUROATE 100MCG 14 PUFFS/INHALER INH SCH (08:51)
--- NOTE | 2022-12-20 15:57 | Hospitalist Progress Note ---
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 [place]04 [place] [facility] [place] [facility] from 12/02 to 12/03 with shortness of breath thought secondary to CHF. She was diuresed with Lasix and Diamox and was discharged home. COVID-19 was tested positive on 11/22; doubt she is still infectious from it Chest x-ray personally reviewed; bilateral infiltrates. ? Pulmonary edema BNP elevated Echocardiogram results reviewed; EF of 55 to 60% with moderate-sized inferior and posterior wall abnormality with hypokinesis to akinesis of the segments. Obtain CTA chest PE protocol to rule out pulmonary embolism. Continue on IV Lasix 40 mg twice daily. Strict input and output Currently on Zosyn; to complete treatment till 12/16 as per infectious disease recommendation (while [place] was [place] [facility] [place] Cardiology on board; appreciate further recommendation. Airway clearance with flutter valve, DuoNeb and hypertonic saline. 12/16 hypotensive yesterday, given total of 1 L IV fluids bolus BP improved hypotensive again around noon, 250cc IV fluid bolus given BP improved Lasix being held lower Metoprolol to 25mg? AM cortisol normal TSH pending 12/17 BP still on the lower normal side Lasix converted to p.o. with Aldactone Metoprolol reduced to 25 mg Continue to monitor closely 12/18 on PO Lasix, Aldactone, Metoprolol given IV Lasix 20mg repeat CXR: 1. Cardiomegaly and emphysema with evidence of congestive failure. 2. Trace pleural effusions. 3. The suspicious right upper lobe pulmonary lesion seen on prior CT scans is not well assessed. 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 Wound care consulted 12/16 last day of IV Zosyn Postoperative cardiac arrest and had cardiac cath showing multivessel disease refused surgery s/p PCI to LM/LAD Reports chest pain from chest compression. Chest x-ray reveals healed left rib fractures On Toprol-XL, Plavix, aspirin and statin. History of COPD and asthma No obvious wheezing Continue home inhalers management per #1 COVID-19 first diagnosed in November 21 Received remdesivir and Decadron and completed steroid taper Still positive No isolation required Type II days mellitus Hold home p.o. medications Insulin sliding scale We will follow blood sugars and HbA1c levels History of PVD and multiple procedures as mentioned in HPI and past surgical history On aspirin Plavix and statin History of CVA On aspirin Plavix and statin History of hypertension On metoprolol Management per above Hyperlipidemia On statin Depression General anxiety disorder On buspirone and duloxetine GERD On Protonix and sucralfate Anemia Hemoglobin 9.2 Stable since admission in [place] History of GI bleed in the past DVT prophylaxis Lovenox for now Disposition Telemetry floor Admission and Anticipated Discharge Date Admission Date: December 13, 2022 Subjective Follow-up for acute respiratory failure, etc. Seen resting in bed, comfortable, sitting up, on 2 L of oxygen States that she feels improved today overall Breathing is improving Able to expectorate more mucus Has rib pain when coughing No other new symptoms Review of Systems Review of Systems: all noted and negative except for above Physical Exam Physical Exam: General- oriented x 2, not in distress, speaks in sentences with no effort or accessory muscle use Eyes- anicteric Neck- no JVD Lungs- mild intermittent rhonchi at the bases Heart- normal rate, regular rhythm; no murmurs Abdomen- normal bowel sounds, nondistended, soft, nontender Extremities- no pretibial edema, no calf tenderness Neuro- alert, oriented x 2; no gross focal neurologic deficits Skin- warm & dry Results & Data Results & Data Vital Signs (Past 12 Hours) Vital Signs Temp Pulse Pulse Resp BP Pulse Ox O2 Del Method 12/20/22 15:36 36.5 C 82 24 102/60 96 Nasal Cannula 12/20/22 13:57 86 18 91 Nasal Cannula 12/20/22 13:00 36.8 C 89 18 93/59 L 96 Nasal Cannula 12/20/22 11:41 36.9 C 87 29 H 95/69 L 91 Nasal Cannula 12/20/22 07:00 90 12/20/22 08:02 36.9 C 88 22 117/80 98 Nebulizer 12/20/22 07:19 88 20 92 Nasal Cannula O2 Flow Rate 12/20/22 15:36 2 12/20/22 13:57 2 12/20/22 13:00 2 12/20/22 11:41 2 12/20/22 07:00 12/20/22 08:02 12/20/22 07:19 2 all noted and reviewed including below
[2022-12-20] MEDS: CARBOHYDRATES FOR HYPOGLYCEMIA PO PRN (16:15)
[2022-12-20] MEDS: DOCUSATE SODIUM SYRUP 100 MG/10 ML UDC PO SCH (20:44)
[2022-12-20] MEDS: ATORVASTATIN 40 MG TAB PO SCH (20:45)
[2022-12-20] MEDS: ENOXAPARIN INJ 40 MG/0.4 ML SYR SQ SCH (23:08)
[2022-12-21] MEDS: ALBUT/IPRATROP 3MG/0.5MG NEB 3 ML VIAL NEB SCH ×4 (00:35→19:31)
[2022-12-21 06:37] LABS: BUN Creatinine Ratio 18.3 (10-20); Calcium 9.8 mg/dl (8.6-10.3); Est GFR (African American) 104.8 ml/min; Est GFR (Non-African American) 90.4 ml/min; Potassium 3.7 mmol/L (3.5-5.1)
[2022-12-21] MEDS: ACETYLCYSTEINE 10% INHAL SOLN 4 ML **DISPENSED BY RESP. INH SCH ×2 (07:00→19:35)
[2022-12-21] MEDS: oxyCODONE HCL IR 5 MG TAB (IMMEDIATE RELEASE) PO PRN ×3 (08:52→20:32)
[2022-12-21] MEDS: INSULIN ASPART PER UNIT CHARGE SC SCH ×4 (08:52→20:33)
[2022-12-21] MEDS: METOPROLOL SUCC 25MG EXT REL TAB PO SCH (08:52)
[2022-12-21] MEDS: DICYCLOMINE HCL 10 MG CAP PO PRN (08:53)
[2022-12-21] MEDS: ZINC SULFATE 220 MG CAPSULE PO SCH (08:53)
[2022-12-21] MEDS: CYCLOBENZAPRINE HCL 5 MG TAB PO PRN ×2 (08:53→20:16)
[2022-12-21] MEDS: ADVANCED PROBIOTIC 1250 MG CAPSULE PO SCH (08:53)
[2022-12-21] MEDS: CHOLECALCIFEROL 5,000 UNITS 125 MCG TAB PO SCH ×2 (08:53→20:16)
[2022-12-21] MEDS: CLOPIDOGREL BISULFATE 75 MG TAB PO SCH (08:53)
[2022-12-21] MEDS: CALCIUM CARBONATE 1250MG TAB PO SCH ×2 (08:53→20:17)
[2022-12-21] MEDS: SPIRONOLACTONE 12.5 MG TAB PO SCH (08:53)
[2022-12-21] MEDS: LORATADINE 10 MG TAB PO SCH (08:53)
[2022-12-21] MEDS: FLUTICASONE FUROATE 100MCG 14 PUFFS/INHALER INH SCH (08:54)
[2022-12-21] MEDS: ASPIRIN 81 MG ECTAB PO SCH (08:54)
[2022-12-21] MEDS: busPIRone 15 MG TAB PO SCH ×2 (08:54→20:16)
[2022-12-21] MEDS: PANTOprazole 40 MG TAB PO SCH (08:54)
[2022-12-21] MEDS: SUCRALFATE 1 GM TAB PO SCH ×4 (08:54→20:16)
[2022-12-21] MEDS: DULoxetine HCL 30 MG CAP PO SCH ×2 (08:54→20:17)
[2022-12-21] MEDS: MICONAZOLE NITRATE POWDER 85 GM EXT SCH ×3 (08:55→20:20)
[2022-12-21] MEDS: LIDOCAINE 5% 1 PATCH TD PRN (08:55)
[2022-12-21] MEDS: UMECLIDINIUM/VILANTEROL 62.5/25MCG 7 PUFFS/INHALER INH SCH (08:55)
[2022-12-21] MEDS: NICOTINE 14 MG/24 HR PATCH TD SCH (08:55)
[2022-12-21] MEDS: ASCORBIC ACID 500 MG TAB PO SCH (08:55)
--- NOTE | 2022-12-21 10:24 | Cardiology Progress Note ---
Date of Service December 21, 2022 Assessment & Plan (1) Acute on chronic diastolic heart failure with preserved ejection fraction: (2) Severe mitral regurgitation: (3) CAD (coronary artery disease): (4) PVD (peripheral vascular disease): (5) Tobacco use disorder, continuous: (6) Pneumonia: (7) Hypokalemia: Plan Patient stable from cardiac standpoint. Acute decompensated heart failure appears stable. Underlying pulmonary issues driving complaints. We will resume furosemide at reduced dose 20 mg p.o. daily continue spironolactone 12.5 mg/day Patient has scheduled appoint with vascular surgery tomorrow. Office contacted to reschedule Admission and Anticipated Discharge Date Admission Date: December 13, 2022 Subjective Patient seen and examined, chart, medications, telemetry reviewed. Slowly improving, stable from cardiac standpoint still with rhonchorous cough but better. Oxygen demands less Right groin Hemovac stable Review of Systems Review of Systems: All systems reviewed & are unremarkable except as noted in Subjective Physical Exam Constitutional: no acute distress Eyes: PERRL, conjunctivae normal, anicteric sclerae ENMT: external ear and nose normal, oropharynx normal Neck: trachea midline, no thyromegaly Respiratory: Auscultation: + bronchovesicular breath sounds (With cough) Cardiovascular: Rate/Rhythm: regular rate and regular rhythm Vessels: no JVD Extremities: no edema Gastrointestinal (Abdomen): normal bowel sounds, soft, nontender, no hepatosplenomegaly Musculoskeletal: Wound VAC right groin healing incision Results & Data Vital Signs (Past 12 Hours) Vital Signs Temp Pulse Resp BP Pulse Ox O2 Del Method O2 Flow Rate 12/21/22 08:47 36.6 C 94 H 18 116/52 L 92 Nasal Cannula 2.5 12/21/22 07:01 90 16 88 L Room Air 12/21/22 03:34 36.4 C L 92 H 20 102/69 92 Nasal Cannula 2 12/21/22 00:35 93 H 18 91 Nasal Cannula 2 12/20/22 22:45 36.5 C 87 20 91/63 L 94 Nasal Cannula 2 12/20/22 23:38 94/59 L Laboratory Results Laboratory Results - last 24 hr 12/20/22 12/20/22 12/20/22 11:21 16:14 16:31 Sodium Potassium Chloride Carbon Dioxide Anion Gap BUN Creatinine Est Cr Clr Drug Dosing Est GFR ( Amer) Est GFR (Non-Af Amer) BUN/Creatinine Ratio Glucose POC Glucose 132 H 59 L* 68 L* Calcium 12/20/22 12/20/22 12/21/22 16:55 20:23 05:51 Sodium 138 Potassium 3.7 Chloride 101 Carbon Dioxide 28 Anion Gap 9 BUN 11 Creatinine 0.60 Est Cr Clr Drug Dosing 81.0 Est GFR ( Amer) 104.8 Est GFR (Non-Af Amer) 90.4 BUN/Creatinine Ratio 18.3 Glucose 184 H POC Glucose 112 H 182 H Calcium 9.8 12/21/22 07:23 Sodium Potassium Chloride Carbon Dioxide Anion Gap BUN Creatinine Est Cr Clr Drug Dosing Est GFR ( Amer) Est GFR (Non-Af Amer) BUN/Creatinine Ratio Glucose POC Glucose 197 H Calcium
[2022-12-21] MEDS ORDERED: FUROSEMIDE 20 MG TAB PO SCH (10:30)
[2022-12-21] MEDS: FUROSEMIDE 20 MG TAB PO SCH (12:28)
--- NOTE | 2022-12-21 15:57 | Hospitalist Progress Note ---
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 Recently hospitalized from 11/04 to 11/[address] [facility] [place] She was also admitted at [facility] from 12/02 to 12/03 with shortness of breath thought secondary to CHF. She was diuresed with Lasix and Diamox and was discharged home. COVID-19 was tested positive on 11/22 Chest x-ray personally reviewed; bilateral infiltrates, Pulmonary edema BNP elevated Echocardiogram results reviewed; EF of 55 to 60% with moderate-sized inferior and posterior wall abnormality with hypokinesis to akinesis of the segments. CT chest: 1. No pulmonary emboli identified. 2. Cardiomegaly with pulmonary edema, small pleural effusions and bibasilar atelectasis. 3. Left lower lobe mucous plugging with patchy airspace opacities of the left lung. Correlate clinically to exclude superimposed pneumonia. 4. Nonspecific mediastinal and supraclavicular lymphadenopathy. Attention at follow-up is needed. If the adenopathy persists, the right supraclavicular lymph node would be amenable to percutaneous biopsy. 5. Healing subacute nondisplaced bilateral anterior rib fractures. No pneumothorax. Given IV Lasix Titrated carefully due to episodes of hypotension Cardiology service also added and titrated metoprolol and lisinopril Patient also given nebs 4 times daily, Mucomyst, Mucinex, encourage incentive spirometry and flutter valve Was being given IV Zosyn already for suprapubic abscess, completed the course Patient's respiratory status improving, able to expectorate more mucus Improving overall To be transitioned to p.o. Lasix tomorrow Continue nebs, Mucinex, etc. 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 Wound care consulted Continue wound VAC Postoperative cardiac arrest and had cardiac cath showing multivessel disease refused surgery s/p PCI to LM/LAD Reports intermittent chest pain from chest compression. Chest x-ray reveals healed left rib fractures On Toprol-XL, Plavix, aspirin and statin. History of COPD and asthma Management per #1 COVID-19 first diagnosed in November 21 Received remdesivir and Decadron and completed steroid taper Still positive No isolation required Type II days mellitus Hold home p.o. medications Insulin sliding scale History of PVD and multiple procedures as mentioned in HPI and past surgical history On aspirin Plavix and statin History of CVA On aspirin Plavix and statin History of hypertension On metoprolol Management per above Hyperlipidemia On statin Depression General anxiety disorder On buspirone and duloxetine GERD On Protonix and sucralfate Anemia Hemoglobin 9.2 Stable since admission in [place] History of GI bleed in the past DVT prophylaxis Lovenox for now Disposition [facility] to [facility] facility when accepted Admission and Anticipated Discharge Date Admission Date: December 13, 2022 Subjective Follow-up for acute hypoxic respiratory failure, CHF, possible pneumonia, recent COVID-19 infection, etc. Seen resting in bed, sitting up, on 2 L of oxygen, comfortable, not in distress, watching movie in her iPad States she feels improved today overall Breathing is better, able to expectorate more mucus Has intermittent rib pain when coughing No other new symptoms Review of Systems Review of Systems: all noted and negative except for above Physical Exam Physical Exam: General- oriented x 3, not in distress, speaks in sentences with no effort or accessory muscle use Eyes- anicteric Neck- no JVD Lungs- slightly diminished but clear breath sounds bilaterally, no rales/wheezes Heart- normal rate, regular rhythm; no murmurs Abdomen- normal bowel sounds, nondistended, soft, nontender Right lower abdominal/inguinal area: Wound VAC in place Extremities- no pretibial edema, no calf tenderness Neuro- alert, oriented x 3; no gross focal neurologic deficits Skin- warm & dry Results & Data Results & Data Vital Signs (Past 12 Hours) Vital Signs Temp Pulse Resp BP Pulse Ox O2 Del Method O2 Flow Rate 12/21/22 15:21 36.6 C 87 20 105/71 94 Nasal Cannula 2.0 12/21/22 12:31 91 H 16 96 Nasal Cannula 2 12/21/22 11:34 36.6 C 92 H 19 96/72 L 91 Nasal Cannula 2.5 12/21/22 08:47 36.6 C 94 H 18 116/52 L 92 Nasal Cannula 2.5 12/21/22 07:01 90 16 88 L Room Air all noted and reviewed including below
[2022-12-21] MEDS: CARBOHYDRATES FOR HYPOGLYCEMIA PO PRN (16:21)
[2022-12-21] MEDS: DOCUSATE SODIUM SYRUP 100 MG/10 ML UDC PO SCH (20:16)
[2022-12-21] MEDS: ATORVASTATIN 40 MG TAB PO SCH (20:16)
[2022-12-21] MEDS: ENOXAPARIN INJ 40 MG/0.4 ML SYR SQ SCH (20:33)
[2022-12-22] MEDS: ALBUT/IPRATROP 3MG/0.5MG NEB 3 ML VIAL NEB SCH ×4 (00:35→19:09)
[2022-12-22] MEDS: oxyCODONE HCL IR 5 MG TAB (IMMEDIATE RELEASE) PO PRN ×3 (03:46→22:49)
[2022-12-22 07:00] LABS: BUN Creatinine Ratio 22.8 (10-20); Calcium 9.7 mg/dl (8.6-10.3); Creatinine Clr Calc Pharmacy 85.4 ml/min; Est GFR (African American) 106.6 ml/min; Potassium 4.2 mmol/L (3.5-5.1)
[2022-12-22] MEDS: SUCRALFATE 1 GM TAB PO SCH ×4 (08:29→19:52)
[2022-12-22] MEDS: METOPROLOL SUCC 25MG EXT REL TAB PO SCH (08:33)
[2022-12-22] MEDS: FLUTICASONE FUROATE 100MCG 14 PUFFS/INHALER INH SCH (08:33)
[2022-12-22] MEDS: MICONAZOLE NITRATE POWDER 85 GM EXT SCH ×3 (08:33→19:54)
[2022-12-22] MEDS: ASCORBIC ACID 500 MG TAB PO SCH (08:34)
[2022-12-22] MEDS: FUROSEMIDE 20 MG TAB PO SCH (08:34)
[2022-12-22] MEDS: ADVANCED PROBIOTIC 1250 MG CAPSULE PO SCH (08:34)
[2022-12-22] MEDS: SPIRONOLACTONE 12.5 MG TAB PO SCH (08:34)
[2022-12-22] MEDS: DICYCLOMINE HCL 10 MG CAP PO PRN (08:34)
[2022-12-22] MEDS: ASPIRIN 81 MG ECTAB PO SCH (08:34)
[2022-12-22] MEDS: CLOPIDOGREL BISULFATE 75 MG TAB PO SCH (08:35)
[2022-12-22] MEDS: PANTOprazole 40 MG TAB PO SCH (08:35)
[2022-12-22] MEDS: NICOTINE 14 MG/24 HR PATCH TD SCH (08:36)
[2022-12-22] MEDS: CHOLECALCIFEROL 5,000 UNITS 125 MCG TAB PO SCH ×2 (08:39→19:49)
[2022-12-22] MEDS: DULoxetine HCL 30 MG CAP PO SCH ×2 (08:40→19:51)
[2022-12-22] MEDS: INSULIN ASPART PER UNIT CHARGE SC SCH ×4 (08:47→20:03)
[2022-12-22] MEDS: ACETYLCYSTEINE 10% INHAL SOLN 4 ML **DISPENSED BY RESP. INH SCH (09:42)
[2022-12-22] MEDS: busPIRone 15 MG TAB PO SCH ×2 (09:44→19:48)
[2022-12-22] MEDS: CALCIUM CARBONATE 1250MG TAB PO SCH ×2 (09:44→19:48)
[2022-12-22] MEDS: ZINC SULFATE 220 MG CAPSULE PO SCH (09:44)
--- NOTE | 2022-12-22 09:59 | Hospitalist Progress Note ---
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 Recently hospitalized from 11/04 to 11/24 at [facility] She was also admitted at [facility] from 12/02 to 12/03 with shortness of breath thought secondary to CHF. She was diuresed with Lasix and Diamox and was discharged home. COVID-19 was tested positive on 11/22 Chest x-ray personally reviewed; bilateral infiltrates, Pulmonary edema BNP elevated Echocardiogram results reviewed; EF of 55 to 60% with moderate-sized inferior and posterior wall abnormality with hypokinesis to akinesis of the segments. CT chest: 1. No pulmonary emboli identified. 2. Cardiomegaly with pulmonary edema, small pleural effusions and bibasilar atelectasis. 3. Left lower lobe mucous plugging with patchy airspace opacities of the left lung. Correlate clinically to exclude superimposed pneumonia. 4. Nonspecific mediastinal and supraclavicular lymphadenopathy. Attention at follow-up is needed. If the adenopathy persists, the right supraclavicular lymph node would be amenable to percutaneous biopsy. 5. Healing subacute nondisplaced bilateral anterior rib fractures. No pneumothorax. Given IV Lasix Titrated carefully due to episodes of hypotension Cardiology service also added and titrated metoprolol and lisinopril Patient also given nebs 4 times daily, Mucomyst, Mucinex, encourage incentive spirometry and flutter valve Was being given IV Zosyn already for suprapubic abscess, completed the course Patient's respiratory status improving, able to expectorate more mucus Improving overall transitioned to p.o. Lasix 20 daily. Cont. spironolactone 12.5 mg. Cont. Dual antiplatelet therapy. Metoprolol succinate decreased to 25 Continue nebs, Mucinex, etc. 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 Wound care consulted Continue wound VAC Postoperative cardiac arrest and had cardiac cath showing multivessel disease refused surgery s/p PCI to LM/LAD Reports intermittent chest pain from chest compression. Chest CT - healing nondisplaced b/l anterior rib fractures On Toprol-XL, Plavix, aspirin and statin. History of COPD and asthma Management per #1 COVID-19 first diagnosed in November 21 Received remdesivir and Decadron and completed steroid taper Still positive No isolation required Type II days mellitus Hold home p.o. medications Insulin sliding scale History of PVD and multiple procedures as mentioned in HPI and past surgical history On aspirin Plavix and statin History of CVA On aspirin Plavix and statin History of hypertension On metoprolol Management per above Hyperlipidemia On statin Depression General anxiety disorder On buspirone and duloxetine GERD On Protonix and sucralfate Anemia Hemoglobin ~9 Stable since admission in [place] History of GI bleed in the past DVT prophylaxis Lovenox for now Disposition Transition to intermediate facility when accepted Admission and Anticipated Discharge Date Admission Date: December 13, 2022 Subjective Follow-up for acute hypoxic respiratory failure, CHF, possible pneumonia, recent COVID-19 infection, etc. Seen resting in bed, sitting up, on 2 L of oxygen, comfortable, not in distress, watching movie in her iPad Continues to have productive cough, says it's improved Has intermittent rib pain when coughing No other new symptoms Review of Systems Review of Systems: All systems reviewed & are unremarkable except as noted in Subjective Physical Exam Physical Exam: General- oriented x 3, not in distress, speaks in sentences with no effort or accessory muscle use Eyes- anicteric Neck- no JVD Lungs- slightly diminished but clear breath sounds bilaterally, no rales/wheezes Heart- normal rate, regular rhythm; no murmurs Abdomen- normal bowel sounds, nondistended, soft, nontender Right lower abdominal/inguinal area: Wound VAC in place Extremities- no pretibial edema, no calf tenderness Neuro- alert, oriented x 3; speech fluent, answers appropriately, moves extremities Skin- warm & dry Results & Data Results & Data Vital Signs (Past 12 Hours) Vital Signs Temp Pulse Pulse Resp BP Pulse Ox Pulse Ox 12/22/22 07:46 36.6 C 95 H 19 111/71 92 12/22/22 06:53 94 H 16 94 12/22/22 04:04 36.4 C L 92 H 18 92/64 L 90 12/21/22 22:01 89 12/21/22 22:00 93 12/21/22 23:11 36.6 C 90 87/66 L 93 O2 Del Method O2 Del Method O2 Flow Rate O2 Flow Rate 12/22/22 07:46 Nasal Cannula 2.0 12/22/22 06:53 Nasal Cannula 2 12/22/22 04:04 Room Air 12/21/22 22:01 12/21/22 22:00 Nasal Cannula 2 12/21/22 23:11 Nasal Cannula 2 Laboratory Results 12/22/22 12/22/22 12/21/22 Range/Units 07:13 06:04 20:24 Sodium 137 (136-145) mmol/L Potassium 4.2 (3.5-5.1) mmol/L Chloride 101 (98-107) mmol/L Carbon Dioxide 28 (21-32) mmol/L Anion Gap 8 (3-11) BUN 13 (6-23) mg/dl Creatinine 0.57 L (0.6-1.2) mg/dl Est Cr Clr Drug Dosing 85.4 ml/min Est GFR ( Amer) 106.6 ml/min Est GFR (Non-Af Amer) 92.0 ml/min BUN/Creatinine Ratio 22.8 H (10-20) Glucose 185 H (70-99(Fasting)) mg/dl POC Glucose 168 H 88 (70-99) mg/dl Calcium 9.7 (8.6-10.3) mg/dl 12/21/22 12/21/22 12/21/22 Range/Units 16:38 16:21 16:17 Sodium (136-145) mmol/L Potassium (3.5-5.1) mmol/L Chloride (98-107) mmol/L Carbon Dioxide (21-32) mmol/L Anion Gap (3-11) BUN (6-23) mg/dl Creatinine (0.6-1.2) mg/dl Est Cr Clr Drug Dosing ml/min Est GFR ( Amer) ml/min Est GFR (Non-Af Amer) ml/min BUN/Creatinine Ratio (10-20) Glucose (70-99(Fasting)) mg/dl POC Glucose 78 68 L* 69 L* (70-99) mg/dl Calcium (8.6-10.3) mg/dl 12/21/22 Range/Units 11:13 Sodium (136-145) mmol/L Potassium (3.5-5.1) mmol/L Chloride (98-107) mmol/L Carbon Dioxide (21-32) mmol/L Anion Gap (3-11) BUN (6-23) mg/dl Creatinine (0.6-1.2) mg/dl Est Cr Clr Drug Dosing ml/min Est GFR ( Amer) ml/min Est GFR (Non-Af Amer) ml/min BUN/Creatinine Ratio (10-20) Glucose (70-99(Fasting)) mg/dl POC Glucose 217 H (70-99) mg/dl Calcium (8.6-10.3) mg/dl Medications Administered Current Inpatient Medications Acetaminophen (Acetaminophen 325 Mg Tab) 650 mg PO Q4H PRN PRN Reason: Pain or Fever Stop: 01/12/23 22:38 Last Admin: 12/19/22 09:02 Dose: 650 mg Albuterol (Albut/Ipratrop 3mg/0.5mg Neb 3 Ml Vial) 3 ml INH Q4H PRN; Protocol PRN Reason: Shortness Of Breath Or Wheezing Stop: 01/12/23 22:38 Albuterol (Albuterol Hfa 8 Gm Inhaler) 2 puffs INH Q4H PRN PRN Reason: Shortness Of Breath Stop: 01/12/23 22:38 Albuterol (Albut/Ipratrop 3mg/0.5mg Neb 3 Ml Vial) 3 ml NEB Q6R [facility]; Protocol Stop: 01/17/23 12:29 Last Admin: 12/22/22 06:52 Dose: 3 ml Ascorbic Acid (Ascorbic Acid 500 Mg Tab) 500 mg PO DAILY [facility] Stop: 01/13/23 08:59 Last Admin: 12/22/22 08:34 Dose: 500 mg Aspirin (Aspirin 81 Mg Ectab) 81 mg PO QAM [facility] Stop: 01/13/23 08:59 Last Admin: 12/22/22 08:34 Dose: 81 mg Atorvastatin Calcium (Atorvastatin 40 Mg Tab) 40 mg PO QPM [facility] Stop: 01/12/23 22:38 Last Admin: 12/21/22 20:16 Dose: 40 mg Benzonatate (Benzonatate 100 Mg Capsule) 100 mg PO Q8H PRN PRN Reason: Cough Stop: 01/13/23 09:05 Buspirone HCl (Buspirone 15 Mg Tab) 15 mg PO BID [facility] Stop: 01/12/23 22:38 Last Admin: 12/22/22 09:44 Dose: 15 mg Calamine/Phenol (Menthol-Zinc Oxide 360 Appln/120 Gm Tube) 1 appln EXT DAILY PRN PRN Reason: Sores on bottom Stop: 01/12/23 22:53 Calcium Carbonate (Calcium Carbonate 1250mg Tab) 1,250 mg PO BID [facility] Stop: 01/12/23 22:59 Last Admin: 12/22/22 09:44 Dose: 1,250 mg Clopidogrel Bisulfate (Clopidogrel Bisulfate 75 Mg Tab) 75 mg PO QAM [facility] Stop: 01/13/23 08:59 Last Admin: 12/22/22 08:35 Dose: 75 mg Cyclobenzaprine HCl (Cyclobenzaprine Hcl 5 Mg Tab) 5 mg PO BID PRN PRN Reason: muscle spasm Stop: 01/16/23 20:59 Last Admin: 12/21/22 20:16 Dose: 5 mg Dextrose (Dextrose 50% 50 Ml Syringe) 25 - 50 ml IV UD PRN; Protocol PRN Reason: Hypoglycemia Protocol Stop: 01/12/23 22:38 Dicyclomine HCl (Dicyclomine Hcl 10 Mg Cap) 10 mg PO TID PRN PRN Reason: Abdominal Pain Stop: 01/12/23 22:38 Last Admin: 12/22/22 08:34 Dose: 10 mg Docusate Sodium (Docusate Sodium Syrup 100 Mg/10 Ml Udc) 50 mg PO HS [facility] Stop: 01/12/23 22:59 Last Admin: 12/21/22 20:16 Dose: 50 mg Duloxetine HCl (Duloxetine Hcl 30 Mg Cap) 30 mg PO AMHS [facility] Stop: 01/12/23 22:38 Last Admin: 12/22/22 08:40 Dose: 30 mg Enoxaparin Sodium (Enoxaparin Inj 40 Mg/0.4 Ml Syr) 40 mg SQ Q24H [facility] Stop: 01/12/23 22:59 Last Admin: 12/21/22 20:33 Dose: 40 mg Fluticasone Furoate (Fluticasone Furoate 100mcg 14 Puffs/Inhaler) 1 puffs INH DAILY [facility] Stop: 01/13/23 08:59 Last Admin: 12/22/22 08:33 Dose: 1 puffs Furosemide (Furosemide 20 Mg Tab) 20 mg PO QAM [facility] Stop: 01/20/23 11:29 Last Admin: 12/22/22 08:34 Dose: 20 mg Glucagon (Glucagon For Inj 1 Mg Vial) 1 mg SQ UD PRN; Protocol PRN Reason: Hypoglycemia Protocol Stop: 01/12/23 22:38 Glucose (Glucose 10 Tab/Tube) 4 - 8 tab PO UD PRN; Protocol PRN Reason: Hypoglycemia Treatment Stop: 01/12/23 22:38 Glucose (Glucose 40% Gel 15 Gm Tube) 15 - 30 gm PO UD PRN; Protocol PRN Reason: Hypoglycemia Protocol Stop: 01/12/23 22:38 Heparin Sodium (Beef Lung) (Heparin 10 Unit/Ml 5 Ml Flush) 5 ml FLUSH PRN PRN PRN Reason: Flush Stop: 01/13/23 00:06 Last Admin: 12/19/22 10:14 Dose: 5 ml Insulin Aspart (Insulin Aspart Per Unit Charge) 0 units SC ACHS [facility] Stop: 01/12/23 22:38 Last Admin: 12/22/22 08:47 Dose: 5 units Lactobacillus Acidophilus (Advanced Probiotic 1250 Mg Capsule) 2 cap PO DAILY [facility] Stop: 01/13/23 08:59 Last Admin: 12/22/22 08:34 Dose: 2 cap Lidocaine (Lidocaine 5% 1 Patch) 1 patch TD QAM PRN PRN Reason: pain Stop: 01/12/23 23:05 Last Admin: 12/21/22 08:55 Dose: 1 patch Loratadine (Loratadine 10 Mg Tab) [facility] [place] [place] Stop: 01/13/23 08:59 Last Admin: 12/21/22 08:53 Dose: 10 mg Metoprolol Succinate (Metoprolol Succ 25mg Ext Rel Tab) 25 mg PO QAM [facility] Stop: 01/16/23 08:59 Last Admin: 12/22/22 08:33 Dose: 25 mg Miconazole Nitrate (Miconazole Nitrate Powder 85 Gm) 1 appln EXT TID [facility] Stop: 01/12/23 22:38 Last Admin: 12/22/22 08:33 Dose: 1 appln Miscellaneous (Carbohydrates For Hypoglycemia ) 15 - 30 gm PO UD PRN PRN Reason: Hypoglycemia Protocol Stop: 01/12/23 22:38 Last Admin: 12/21/22 16:21 Dose: 15 gm Miscellaneous (Remove Nicoderm Patch) 1 each N/A QAM [facility] Stop: 01/13/23 08:59 Last Admin: 12/22/22 08:41 Dose: 1 each Miscellaneous (Remove Lidoderm Patch) 1 each N/A DAILY@2100 [facility] Stop: 01/13/23 20:59 Last Admin: 12/21/22 20:32 Dose: 1 each Nicotine (Nicotine 14 Mg/24 Hr Patch) 14 mg TD [facility] Stop: 01/13/23 08:59 Last Admin: 12/22/22 08:36 Dose: 14 mg Nitroglycerin (Nitroglycerin Sl 0.4 Mg/Tab Tab) 0.4 mg SL Q5M PRN PRN Reason: Chest Pain Stop: 01/12/23 22:38 Ondansetron HCl (Ondansetron 4 Mg Od Tab) 4 mg PO Q8H PRN PRN Reason: Nausea Stop: 01/12/23 22:38 Oxycodone HCl (Oxycodone Hcl Ir 5 Mg Tab (Immediate Release)) 5 mg PO Q6H PRN PRN Reason: pain Stop: 12/27/22 22:38 Last Admin: 12/22/22 03:46 Dose: 5 mg Pantoprazole Sodium (Pantoprazole 40 Mg Tab) 40 mg PO DAILY [facility] Stop: 01/13/23 08:59 Last Admin: 12/22/22 08:35 Dose: 40 mg Polyethylene Glycol (Polyethylene (Miralax) 17 Gm Pack) 17 gm PO DAILY PRN PRN Reason: Constipation Stop: 01/12/23 22:38 Sodium Chloride (Sodium Chlor 7% 4 Ml Neb) 4 ml NEB BIDR [facility] Stop: 01/21/23 18:59 Spironolactone (Spironolactone 12.5 Mg Tab) 12.5 mg PO DAILY [facility] Stop: 01/15/23 15:44 Last Admin: 12/22/22 08:34 Dose: 12.5 mg Sucralfate (Sucralfate 1 Gm Tab) 1 gm PO ACHS [facility] Stop: 01/12/23 22:38 Last Admin: 12/22/22 08:29 Dose: 1 gm Umeclidinium/Vilanterol (Umeclidinium/Vilanterol 62.5/25mcg 7 Puffs/Inhaler) 1 puffs INH DAILY [facility] Stop: 01/13/23 08:59 Last Admin: 12/21/22 08:55 Dose: 1 puffs Vitamin D (Cholecalciferol 5,000 Units 125 Mcg Tab) 5,000 units PO BID [facility] Stop: 01/12/23 22:38 Last Admin: 12/22/22 08:39 Dose: 5,000 units Zinc Sulfate (Zinc Sulfate 220 Mg Capsule) 220 mg PO DAILY [facility] Stop: 01/13/23 08:59 Last Admin: 12/22/22 09:44 Dose: 220 mg
[2022-12-22] MEDS: UMECLIDINIUM/VILANTEROL 62.5/25MCG 7 PUFFS/INHALER INH SCH (10:03)
[2022-12-22] MEDS: LORATADINE 10 MG TAB PO SCH (10:03)
[2022-12-22] MEDS: guaiFENesin 600 MG TABCR PO SCH ×2 (13:08→19:51)
[2022-12-22] MEDS: CYCLOBENZAPRINE HCL 5 MG TAB PO PRN (13:47)
[2022-12-22] MEDS: SODIUM CHLOR 7% 4 ML NEB NEB SCH (19:09)
--- NOTE | 2022-12-22 19:09 | XRay Report ---
XR chest 1V portable HISTORY: 72 years-old Female follow up poss. pna acute shortness of breath COMPARISON: 12/18/2022, CTA chest 12/14/2022. TECHNIQUE: AP view of the chest FINDINGS: Cardiac silhouette is enlarged. Right-sided PICC is unchanged. Emphysema with pulmonary vascular ro estion and interstitial coarsening again noted. Small pleural effusions. Suspicious lesion of the rig ht upper lobe is better seen on the prior chest CT. Bones appear unremarkable. IMPRESSION: 1. Cardiomegaly with unchanged pulmonary edema. 2. Stable pleural effusions. 3. Emphysema. ACT 112: Negative or not required by law. The above report was generated using voice recognition software. It may contain grammatical, syntax o r spelling errors. Electronically signed by: Nilay Figueredo M.D. 12/22/2022 7:07 PM
[2022-12-22] MEDS: ATORVASTATIN 40 MG TAB PO SCH (19:49)
[2022-12-22] MEDS: DOCUSATE SODIUM SYRUP 100 MG/10 ML UDC PO SCH (19:50)
[2022-12-22] MEDS: BENZONATATE 100 MG CAPSULE PO PRN (22:49)
[2022-12-22] MEDS: ENOXAPARIN INJ 40 MG/0.4 ML SYR SQ SCH (22:50)
[2022-12-23] MEDS: ALBUT/IPRATROP 3MG/0.5MG NEB 3 ML VIAL NEB SCH ×4 (00:08→20:02)
[2022-12-23 06:06] LABS: Hematocrit (blood only) 27.2 % (37.0-47.0); Hemoglobin 8.4 g/dl (12.0-16.0); Mean Corpuscular Hemoglobin 27.8 pg (25.0-34.0); Mean Corpuscular Hgb Conc 30.9 g/dL (32.0-36.0); Mean Corpuscular Volume 90.1 fL (80.0-100.0); Mean Platelet Volume 10.1 fL (9.4-12.4); Platelet Count 355 K/uL (130-400); RDW Coefficient of Variation 15.3 % (11.5-14.5); Red Blood Count 3.02 M/uL (4.20-5.40); White Blood Count 6.35 K/ul (4.8-10.8)
[2022-12-23] MEDS: oxyCODONE HCL IR 5 MG TAB (IMMEDIATE RELEASE) PO PRN ×3 (06:10→22:06)
[2022-12-23 06:30] LABS: BUN Creatinine Ratio 22.5 (10-20); Calcium 9.9 mg/dl (8.6-10.3); Creatinine Clr Calc Pharmacy 67.2 ml/min; Est GFR (African American) 97.9 ml/min; Est GFR (Non-African American) 84.5 ml/min; Magnesium 1.4 mg/dl (1.7-2.4); Phosphorus 3.3 mg/dl (2.5-4.9); Potassium 3.9 mmol/L (3.5-5.1)
[2022-12-23] MEDS: SODIUM CHLOR 7% 4 ML NEB NEB SCH ×2 (07:02→20:02)
[2022-12-23] MEDS: INSULIN ASPART PER UNIT CHARGE SC SCH ×4 (08:21→20:31)
[2022-12-23] MEDS: guaiFENesin 600 MG TABCR PO SCH ×2 (08:53→20:23)
[2022-12-23] MEDS: SUCRALFATE 1 GM TAB PO SCH ×4 (08:53→20:24)
[2022-12-23] MEDS: ASPIRIN 81 MG ECTAB PO SCH (08:54)
[2022-12-23] MEDS: ASCORBIC ACID 500 MG TAB PO SCH (08:54)
[2022-12-23] MEDS: busPIRone 15 MG TAB PO SCH ×2 (08:54→20:22)
[2022-12-23] MEDS: DULoxetine HCL 30 MG CAP PO SCH ×2 (08:54→20:23)
[2022-12-23] MEDS: PANTOprazole 40 MG TAB PO SCH (08:54)
[2022-12-23] MEDS: SPIRONOLACTONE 12.5 MG TAB PO SCH (08:55)
[2022-12-23] MEDS: ADVANCED PROBIOTIC 1250 MG CAPSULE PO SCH (08:55)
[2022-12-23] MEDS: NICOTINE 14 MG/24 HR PATCH TD SCH (08:55)
[2022-12-23] MEDS: FUROSEMIDE 20 MG TAB PO SCH (08:55)
[2022-12-23] MEDS: LORATADINE 10 MG TAB PO SCH (08:56)
[2022-12-23] MEDS: CLOPIDOGREL BISULFATE 75 MG TAB PO SCH (08:56)
[2022-12-23] MEDS: CHOLECALCIFEROL 5,000 UNITS 125 MCG TAB PO SCH ×2 (08:56→20:23)
[2022-12-23] MEDS: ZINC SULFATE 220 MG CAPSULE PO SCH (08:56)
[2022-12-23] MEDS: UMECLIDINIUM/VILANTEROL 62.5/25MCG 7 PUFFS/INHALER INH SCH (08:56)
[2022-12-23] MEDS: CALCIUM CARBONATE 1250MG TAB PO SCH ×2 (08:57→20:22)
[2022-12-23] MEDS: METOPROLOL SUCC 25MG EXT REL TAB PO SCH (08:57)
[2022-12-23] MEDS: FLUTICASONE FUROATE 100MCG 14 PUFFS/INHALER INH SCH (08:57)
[2022-12-23] MEDS: MICONAZOLE NITRATE POWDER 85 GM EXT SCH ×3 (09:00→20:26)
[2022-12-23] MEDS ORDERED: MAGNESIUM SULFATE / D5W 1 GM/100 ML BAG IV ONE (09:17)
--- NOTE | 2022-12-23 09:18 | Hospitalist Progress Note ---
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 Recently hospitalized from 11/04 to 11/24 at [facility] She was also admitted at [facility] from 12/02 to 12/03 with shortness of breath thought secondary to CHF. She was diuresed with Lasix and Diamox and was discharged home. COVID-19 was tested positive on 11/22 Chest x-ray personally reviewed; bilateral infiltrates, Pulmonary edema BNP elevated Echocardiogram results reviewed; EF of 55 to 60% with moderate-sized inferior and posterior wall abnormality with hypokinesis to akinesis of the segments. CT chest: 1. No pulmonary emboli identified. 2. Cardiomegaly with pulmonary edema, small pleural effusions and bibasilar atelectasis. 3. Left lower lobe mucous plugging with patchy airspace opacities of the left lung. Correlate clinically to exclude superimposed pneumonia. 4. Nonspecific mediastinal and supraclavicular lymphadenopathy. Attention at follow-up is needed. If the adenopathy persists, the right supraclavicular lymph node would be amenable to percutaneous biopsy. 5. Healing subacute nondisplaced bilateral anterior rib fractures. No pneumothorax. Given IV Lasix Titrated carefully due to episodes of hypotension Cardiology service also added and titrated metoprolol and lisinopril Patient also given nebs 4 times daily, Mucomyst, Mucinex, encourage incentive spirometry and flutter valve Was being given IV Zosyn already for suprapubic abscess, completed the course Patient's respiratory status improving, able to expectorate more mucus Improving overall transitioned to p.o. Lasix 20 daily. Cont. spironolactone 12.5 mg. Cont. Dual antiplatelet therapy. Metoprolol succinate decreased to 25 Continue nebs, Mucinex, etc. 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 Wound care consulted Continue wound VAC Postoperative cardiac arrest and had cardiac cath showing multivessel disease refused surgery s/p PCI to LM/LAD Reports intermittent chest pain from chest compression. Chest CT - healing nondisplaced b/l anterior rib fractures On Toprol-XL, Plavix, aspirin and statin. History of COPD and asthma Management per #1 COVID-19 first diagnosed in November 21 Received remdesivir and Decadron and completed steroid taper Still positive No isolation required Type II days mellitus Hold home p.o. medications Insulin sliding scale History of PVD and multiple procedures as mentioned in HPI and past surgical history On aspirin Plavix and statin History of CVA On aspirin Plavix and statin History of hypertension On metoprolol Management per above Hyperlipidemia On statin Depression General anxiety disorder On buspirone and duloxetine GERD On Protonix and sucralfate Anemia Hemoglobin ~9 Stable since admission in [place] History of GI bleed in the past DVT prophylaxis Lovenox for now [facility]position [facility] Admission and Anticipated Discharge Date Admission Date: December 13, 2022 Subjective Follow-up for acute hypoxic respiratory failure, CHF, possible pneumonia, recent COVID-19 infection, etc. Seen resting in bed, sitting up, on 2 L of oxygen, comfortable, not in distress, watching movie in her iPad Continues to have productive cough, says it's improved Has intermittent rib pain when coughing No other new symptoms Review of Systems Review of Systems: All systems reviewed & are unremarkable except as noted in Subjective Physical Exam Physical Exam: General- oriented x 3, not in distress, speaks in sentences with no effort or accessory muscle use Eyes- anicteric Neck- no JVD Lungs- slightly diminished, +mild rhonchi on the left, no wheezing Heart- normal rate, regular rhythm; no murmurs Abdomen- normal bowel sounds, nondistended, soft, nontender Right lower abdominal/inguinal area: Wound VAC in place Extremities- no pretibial edema, no calf tenderness Neuro- alert, oriented x 3; speech fluent, answers appropriately, moves extremities Skin- warm & dry Results & Data Results & Data Vital Signs (Past 12 Hours) Vital Signs Temp Pulse Pulse Resp BP Pulse Ox O2 Del Method 12/23/22 07:20 36.6 C 93 H 24 95/70 L 90 Nasal Cannula 12/23/22 07:03 71 26 H 88 L Nasal Cannula 12/23/22 03:58 36.8 C 96 H 20 101/66 90 Nasal Cannula 12/23/22 00:08 102 H 20 91 Nasal Cannula 12/22/22 23:29 36.6 C 97 H 20 105/70 92 Nasal Cannula 12/22/22 23:14 Nasal Cannula 12/22/22 23:13 99 H O2 Flow Rate 12/23/22 07:20 4 12/23/22 07:03 2 12/23/22 03:58 1 12/23/22 00:08 2 12/22/22 23:29 2 12/22/22 23:14 2 12/22/22 23:13 Laboratory Results 12/23/22 12/23/22 12/23/22 Range/Units 07:19 05:42 05:42 WBC 6.35 (4.8-10.8) K/ul RBC 3.02 L (4.20-5.40) M/uL Hgb 8.4 L (12.0-16.0) g/dl Hct 27.2 L (37.0-47.0) % MCV 90.1 (80.0-100.0) fL MCH 27.8 (25.0-34.0) pg MCHC 30.9 L (32.0-36.0) g/dL RDW Std Deviation 50.0 H (36.4-46.3) fL RDW Coeff of Shahrzad 15.3 H (11.5-14.5) % Plt Count 355 (130-400) K/uL MPV 10.1 (9.4-12.4) fL Sodium 137 (136-145) mmol/L Potassium 3.9 (3.5-5.1) mmol/L Chloride 101 (98-107) mmol/L Carbon Dioxide 29 (21-32) mmol/L Anion Gap 7 (3-11) BUN 16 (6-23) mg/dl Creatinine 0.71 (0.6-1.2) mg/dl Est Cr Clr Drug Dosing 67.2 ml/min Est GFR ( Amer) 97.9 ml/min Est GFR (Non-Af Amer) 84.5 ml/min BUN/Creatinine Ratio 22.5 H (10-20) Glucose 212 H (70-99(Fasting)) mg/dl POC Glucose 192 H (70-99) mg/dl Calcium 9.9 (8.6-10.3) mg/dl Phosphorus 3.3 (2.5-4.9) mg/dl Magnesium 1.4 L (1.7-2.4) mg/dl 12/22/22 12/22/22 12/22/22 Range/Units 20:02 16:14 11:11 WBC (4.8-10.8) K/ul RBC (4.20-5.40) M/uL Hgb (12.0-16.0) g/dl Hct (37.0-47.0) % MCV (80.0-100.0) fL MCH (25.0-34.0) pg MCHC (32.0-36.0) g/dL RDW Std Deviation (36.4-46.3) fL RDW Coeff of Shahrzad (11.5-14.5) % Plt Count (130-400) K/uL MPV (9.4-12.4) fL Sodium (136-145) mmol/L Potassium (3.5-5.1) mmol/L Chloride (98-107) mmol/L Carbon Dioxide (21-32) mmol/L Anion Gap (3-11) BUN (6-23) mg/dl Creatinine (0.6-1.2) mg/dl Est Cr Clr Drug Dosing ml/min Est GFR ( Amer) ml/min Est GFR (Non-Af Amer) ml/min BUN/Creatinine Ratio (10-20) Glucose (70-99(Fasting)) mg/dl POC Glucose 143 H 114 H 216 H (70-99) mg/dl Calcium (8.6-10.3) mg/dl Phosphorus (2.5-4.9) mg/dl Magnesium (1.7-2.4) mg/dl Medications Administered Current Inpatient Medications Acetaminophen (Acetaminophen 325 Mg Tab) 650 mg PO Q4H PRN PRN Reason: Pain or Fever Stop: 01/12/23 22:38 Last Admin: 12/19/22 09:02 Dose: 650 mg Albuterol (Albut/Ipratrop 3mg/0.5mg Neb 3 Ml Vial) 3 ml INH Q4H PRN; Protocol PRN Reason: Shortness Of Breath Or Wheezing Stop: 01/12/23 22:38 Albuterol (Albuterol Hfa 8 Gm Inhaler) 2 puffs INH Q4H PRN PRN Reason: Shortness Of Breath Stop: 01/12/23 22:38 Albuterol (Albut/Ipratrop 3mg/0.5mg Neb 3 Ml Vial) 3 ml NEB Q6R [facility]ABIAN; Protocol Stop: 01/17/23 12:29 Last Admin: 12/23/22 07:02 Dose: 3 ml Ascorbic Acid (Ascorbic Acid 500 Mg Tab) 500 mg PO DAILY [facility] Stop: 01/13/23 08:59 Last Admin: 12/23/22 08:54 Dose: 500 mg Aspirin (Aspirin 81 Mg Ectab) 81 mg PO QAM [facility] Stop: 01/13/23 08:59 Last Admin: 12/23/22 08:54 Dose: 81 mg Atorvastatin Calcium (Atorvastatin 40 Mg Tab) 40 mg PO QPM [facility] Stop: 01/12/23 22:38 Last Admin: 12/22/22 19:49 Dose: 40 mg Benzonatate (Benzonatate 100 Mg Capsule) 100 mg PO Q8H PRN PRN Reason: Cough Stop: 01/13/23 09:05 Last Admin: 12/22/22 22:49 Dose: 100 mg Buspirone HCl (Buspirone 15 Mg Tab) 15 mg PO BID [facility] Stop: 01/12/23 22:38 Last Admin: 12/23/22 08:54 Dose: 15 mg Calamine/Phenol (Menthol-Zinc Oxide 360 Appln/120 Gm Tube) 1 appln EXT DAILY PRN PRN Reason: Sores on bottom Stop: 01/12/23 22:53 Calcium Carbonate (Calcium Carbonate 1250mg Tab) 1,250 mg PO BID [facility] Stop: 01/12/23 22:59 Last Admin: 12/23/22 08:57 Dose: 1,250 mg Clopidogrel Bisulfate (Clopidogrel Bisulfate 75 Mg Tab) 75 mg PO QAM [facility] Stop: 01/13/23 08:59 Last Admin: 12/23/22 08:56 Dose: 75 mg Cyclobenzaprine HCl (Cyclobenzaprine Hcl 5 Mg Tab) 5 mg PO BID PRN PRN Reason: muscle spasm Stop: 01/16/23 20:59 Last Admin: 12/22/22 13:47 Dose: 5 mg Dextrose (Dextrose 50% 50 Ml Syringe) 25 - 50 ml IV UD PRN; Protocol PRN Reason: Hypoglycemia Protocol Stop: 01/12/23 22:38 Dicyclomine HCl (Dicyclomine Hcl 10 Mg Cap) 10 mg PO TID PRN PRN Reason: Abdominal Pain Stop: 01/12/23 22:38 Last Admin: 12/22/22 08:34 Dose: 10 mg Docusate Sodium (Docusate Sodium Syrup 100 Mg/10 Ml Udc) 50 mg PO HS [facility] Stop: 01/12/23 22:59 Last Admin: 12/22/22 19:50 Dose: 50 mg Duloxetine HCl (Duloxetine Hcl 30 Mg Cap) 30 mg PO AMHS [facility] Stop: 01/12/23 22:38 Last Admin: 12/23/22 08:54 Dose: 30 mg Enoxaparin Sodium (Enoxaparin Inj 40 Mg/0.4 Ml Syr) 40 mg SQ Q24H [facility] Stop: 01/12/23 22:59 Last Admin: 12/22/22 22:50 Dose: 40 mg Fluticasone Furoate (Fluticasone Furoate 100mcg 14 Puffs/Inhaler) 1 puffs INH DAILY [facility] Stop: 01/13/23 08:59 Last Admin: 12/23/22 08:57 Dose: 1 puffs Furosemide (Furosemide 20 Mg Tab) 20 mg PO QAM [facility] Stop: 01/20/23 11:29 Last Admin: 12/23/22 08:55 Dose: 20 mg Glucagon (Glucagon For Inj 1 Mg Vial) 1 mg SQ UD PRN; Protocol PRN Reason: Hypoglycemia Protocol Stop: 01/12/23 22:38 Glucose (Glucose 10 Tab/Tube) 4 - 8 tab PO UD PRN; Protocol PRN Reason: Hypoglycemia Treatment Stop: 01/12/23 22:38 Glucose (Glucose 40% Gel 15 Gm Tube) 15 - 30 gm PO UD PRN; Protocol PRN Reason: Hypoglycemia Protocol Stop: 01/12/23 22:38 Guaifenesin (Guaifenesin 600 Mg Tabcr) 600 mg PO Q12 [facility] Stop: 01/21/23 12:14 Last Admin: 12/23/22 08:53 Dose: 600 mg Heparin Sodium (Beef Lung) (Heparin 10 Unit/Ml 5 Ml Flush) 5 ml FLUSH PRN PRN PRN Reason: Flush Stop: 01/13/23 00:06 Last Admin: 12/19/22 10:14 Dose: 5 ml Insulin Aspart (Insulin Aspart Per Unit Charge) 0 units SC ACHS [facility] Stop: 01/12/23 22:38 Last Admin: 12/23/22 08:21 Dose: 7 units Lactobacillus Acidophilus (Advanced Probiotic 1250 Mg Capsule) 2 cap PO DAILY [facility] Stop: 01/13/23 08:59 Last Admin: 12/23/22 08:55 Dose: 2 cap Lidocaine (Lidocaine 5% 1 Patch) 1 patch TD QAM PRN PRN Reason: pain Stop: 01/12/23 23:05 Last Admin: 12/21/22 08:55 Dose: 1 patch Loratadine (Loratadine 10 Mg Tab) 10 mg PO QAM [facility] Stop: 01/13/23 08:59 Last Admin: 12/23/22 08:56 Dose: 10 mg Magnesium Oxide (Magnesium Oxide 400 Mg Tab) 400 mg PO BID [facility] Stop: 01/22/23 09:14 Metoprolol Succinate (Metoprolol Succ 25mg Ext Rel Tab) 25 mg PO QAM [facility] Stop: 01/16/23 08:59 Last Admin: 12/23/22 08:57 Dose: Not Given Miconazole Nitrate (Miconazole Nitrate Powder 85 Gm) 1 appln EXT TID [facility] Stop: 01/12/23 22:38 Last Admin: 12/23/22 09:00 Dose: 1 appln Miscellaneous (Carbohydrates For Hypoglycemia ) 15 - 30 gm PO UD PRN PRN Reason: Hypoglycemia Protocol Stop: 01/12/23 22:38 Last Admin: 12/21/22 16:21 Dose: 15 gm Miscellaneous (Remove Nicoderm Patch) 1 each N/A QAM [facility] Stop: 01/13/23 08:59 Last Admin: 12/23/22 08:57 Dose: 1 each Miscellaneous (Remove Lidoderm Patch) 1 each N/A DAILY@2100 [facility] Stop: 01/13/23 20:59 Last Admin: 12/22/22 19:52 Dose: 1 each Nicotine (Nicotine 14 Mg/24 Hr Patch) 14 mg TD QAM [facility] Stop: 01/13/23 08:59 Last Admin: 12/23/22 08:55 Dose: 14 mg Nitroglycerin (Nitroglycerin Sl 0.4 Mg/Tab Tab) 0.4 mg SL Q5M PRN PRN Reason: Chest Pain Stop: 01/12/23 22:38 Ondansetron HCl (Ondansetron 4 Mg Od Tab) 4 mg PO Q8H PRN PRN Reason: Nausea Stop: 01/12/23 22:38 Oxycodone HCl (Oxycodone Hcl Ir 5 Mg Tab (Immediate Release)) 5 mg PO Q6H PRN PRN Reason: pain Stop: 12/27/22 22:38 Last Admin: 12/23/22 06:10 Dose: 5 mg Pantoprazole Sodium (Pantoprazole 40 Mg Tab) 40 mg PO DAILY [facility] Stop: 01/13/23 08:59 Last Admin: 12/23/22 08:54 Dose: 40 mg Polyethylene Glycol (Polyethylene (Miralax) 17 Gm Pack) 17 gm PO DAILY PRN PRN Reason: Constipation Stop: 01/12/23 22:38 Sodium Chloride (Sodium Chlor 7% 4 Ml Neb) 4 ml NEB BIDR [facility] Stop: 01/21/23 18:59 Last Admin: 12/23/22 07:02 Dose: 4 ml Spironolactone (Spironolactone 12.5 Mg Tab) 12.5 mg PO DAILY [facility] Stop: 01/15/23 15:44 Last Admin: 12/23/22 08:55 Dose: 12.5 mg Sucralfate (Sucralfate 1 Gm Tab) 1 gm PO ACHS [facility] Stop: 01/12/23 22:38 Last Admin: 12/23/22 08:53 Dose: 1 gm Umeclidinium/Vilanterol (Umeclidinium/Vilanterol 62.5/25mcg 7 Puffs/Inhaler) 1 puffs INH DAILY [facility] Stop: 01/13/23 08:59 Last Admin: 12/23/22 08:56 Dose: 1 puffs Vitamin D (Cholecalciferol 5,000 Units 125 Mcg Tab) 5,000 units PO BID [facility] Stop: 01/12/23 22:38 Last Admin: 12/23/22 08:56 Dose: 5,000 units Zinc Sulfate (Zinc Sulfate 220 Mg Capsule) 220 mg PO DAILY [facility] Stop: 01/13/23 08:59 Last Admin: 12/23/22 08:56 Dose: 220 mg
[2022-12-23] MEDS: MAGNESIUM OXIDE 400 MG TAB PO SCH ×2 (11:06→20:21)
[2022-12-23] MEDS: CYCLOBENZAPRINE HCL 5 MG TAB PO PRN (11:41)
[2022-12-23] MEDS: DOCUSATE SODIUM SYRUP 100 MG/10 ML UDC PO SCH (20:20)
[2022-12-23] MEDS: ATORVASTATIN 40 MG TAB PO SCH (20:24)
[2022-12-23] MEDS: BENZONATATE 100 MG CAPSULE PO PRN (22:06)
[2022-12-23] MEDS: ENOXAPARIN INJ 40 MG/0.4 ML SYR SQ SCH (22:40)
[2022-12-24] MEDS: ALBUT/IPRATROP 3MG/0.5MG NEB 3 ML VIAL NEB SCH ×3 (01:36→13:31)
[2022-12-24 06:19] LABS: Hematocrit (blood only) 28.5 % (37.0-47.0); Hemoglobin 8.6 g/dl (12.0-16.0); Mean Corpuscular Hemoglobin 27.8 pg (25.0-34.0); Mean Corpuscular Hgb Conc 30.2 g/dL (32.0-36.0); Mean Corpuscular Volume 92.2 fL (80.0-100.0); Mean Platelet Volume 10.5 fL (9.4-12.4); Platelet Count 365 K/uL (130-400); RDW Coefficient of Variation 15.4 % (11.5-14.5); RDW Standard Deviation 51.3 fL (36.4-46.3); Red Blood Count 3.09 M/uL (4.20-5.40); White Blood Count 6.68 K/ul (4.8-10.8)
[2022-12-24 06:28] LABS: BUN Creatinine Ratio 24.6 (10-20); Calcium 9.5 mg/dl (8.6-10.3); Est GFR (African American) 104.2 ml/min; Est GFR (Non-African American) 89.9 ml/min; Magnesium 1.7 mg/dl (1.7-2.4); Phosphorus 3.5 mg/dl (2.5-4.9); Potassium 4.3 mmol/L (3.5-5.1)
[2022-12-24] MEDS: SODIUM CHLOR 7% 4 ML NEB NEB SCH (07:07)
[2022-12-24] MEDS: LORATADINE 10 MG TAB PO SCH (08:05)
[2022-12-24] MEDS: SUCRALFATE 1 GM TAB PO SCH ×3 (08:05→16:39)
[2022-12-24] MEDS: ZINC SULFATE 220 MG CAPSULE PO SCH (08:05)
[2022-12-24] MEDS: MAGNESIUM OXIDE 400 MG TAB PO SCH (08:05)
[2022-12-24] MEDS: FUROSEMIDE 20 MG TAB PO SCH (08:05)
[2022-12-24] MEDS: ASPIRIN 81 MG ECTAB PO SCH (08:05)
[2022-12-24] MEDS: NICOTINE 14 MG/24 HR PATCH TD SCH (08:06)
[2022-12-24] MEDS: CHOLECALCIFEROL 5,000 UNITS 125 MCG TAB PO SCH (08:06)
[2022-12-24] MEDS: ADVANCED PROBIOTIC 1250 MG CAPSULE PO SCH (08:06)
[2022-12-24] MEDS: CLOPIDOGREL BISULFATE 75 MG TAB PO SCH (08:06)
[2022-12-24] MEDS: DULoxetine HCL 30 MG CAP PO SCH (08:06)
[2022-12-24] MEDS: busPIRone 15 MG TAB PO SCH (08:06)
[2022-12-24] MEDS: LIDOCAINE 5% 1 PATCH TD PRN (08:07)
[2022-12-24] MEDS: PANTOprazole 40 MG TAB PO SCH (08:07)
[2022-12-24] MEDS: SPIRONOLACTONE 12.5 MG TAB PO SCH (08:07)
[2022-12-24] MEDS: CYCLOBENZAPRINE HCL 5 MG TAB PO PRN (08:07)
[2022-12-24] MEDS: ASCORBIC ACID 500 MG TAB PO SCH (08:07)
[2022-12-24] MEDS: DICYCLOMINE HCL 10 MG CAP PO PRN (08:07)
[2022-12-24] MEDS: CALCIUM CARBONATE 1250MG TAB PO SCH (08:07)
[2022-12-24] MEDS: FLUTICASONE FUROATE 100MCG 14 PUFFS/INHALER INH SCH (08:08)
[2022-12-24] MEDS: guaiFENesin 600 MG TABCR PO SCH (08:08)
[2022-12-24] MEDS: UMECLIDINIUM/VILANTEROL 62.5/25MCG 7 PUFFS/INHALER INH SCH (08:08)
[2022-12-24] MEDS: METOPROLOL SUCC 25MG EXT REL TAB PO SCH ×2 (08:09→11:32)
[2022-12-24] MEDS: INSULIN ASPART PER UNIT CHARGE SC SCH ×3 (08:18→16:43)
[2022-12-24] MEDS: MICONAZOLE NITRATE POWDER 85 GM EXT SCH ×2 (08:50→14:07)
[2022-12-24 11:20] VITALS: TEMP 98.1
[2022-12-24 11:47] VITALS: O2SAT 96
[2022-12-24 13:34] VITALS: RESP 24
[2022-12-24] MEDS: oxyCODONE HCL IR 5 MG TAB (IMMEDIATE RELEASE) PO PRN (15:36)
--- NOTE | 2022-12-24 15:44 | Discharge Summary ---
Date of Service December 24, 2022 Admission HPI Per Admitting Provider Shortness of breath Admission Exam Per Admitting Provider General- Not in distress Head- atraumatic Eyes- PERRL. ENT- oropharynx clear Neck- supple, no JVD, . Lungs- clear to auscultation no wheezing or crackles. Heart- regular rhythm; no murmur, no gallop. Abdomen- normal bowel sounds, soft, wound vac seen. Diffuse tender on palpation Extremities- no pretibial edema, no erythema seen. Neuro- alert, oriented x 3; PERRL, no facial palsy; no dysarthria; Obeys commands Skin- warm & dry Principal Diagnosis ACUTE RESPIRATORY FAILURE ACUTE CONGESTIVE HEART FAILURE EXACERBATION COPD EXACERBATION Discharge Exam General- oriented x 3, not in distress, speaks in sentences with no effort or accessory muscle use Eyes- anicteric Neck- no JVD Lungs- slightly diminished, +mild rhonchi on the left, no wheezing Heart- normal rate, regular rhythm; no murmurs Abdomen- normal bowel sounds, nondistended, soft, nontender Right lower abdominal/inguinal area: Wound VAC in place Extremities- no pretibial edema, no calf tenderness Neuro- alert, oriented x 3; speech fluent, answers appropriately, moves extremities Skin- warm & dry Discharge Data Allergies Allergy/AdvReac Type Severity Reaction Status Date / Time methadone Allergy Severe "couldn't Verified 12/13/22 16:53 swallow/eyes coming out of head" nickel Allergy Severe swelling Verified 12/13/22 16:53 and infections nitroglycerin Allergy Intermediate DECREASED Verified 12/13/22 16:53 BP propoxyphene Allergy Intermediate edema to Verified 12/13/22 16:53 face/lips/tongue diclofenac Allergy Mild Rash Verified 12/13/22 16:53 hydrocodone Allergy Mild "severe Verified 12/13/22 16:53 constipation" levofloxacin [From Levaquin] Allergy Mild nausea/vomi Verified 12/13/22 16:53 ting Penicillins Allergy Mild severe Verified 12/13/22 16:53 diarrhea/rash sitagliptin [From Januvia] Allergy Mild rash Verified 03/21/19 18:20 "blood blisters" strawberry Allergy Mild Diarrhea Verified 03/21/19 18:20 Consultations 12/14/22 08:00 Consult Cardiology Routine Ordered Studies 12/14/22 11:46 CT angio chest PE protocol Urgent FINDINGS: CTA: Moderate cardiomegaly with extensive coronary artery calcifications. There is no pericardial effusion. Atherosclerosis of the thoracic aorta without aneurysm. No pulmonary emboli are identified. CT CHEST: Unremarkable thyroid. Nonspecific mild paratracheal lymphadenopathy measures up to 2.0 x 1.2 cm, progressed from prior. 1.9 x 1.1 cm right supraclavicular lymph node on image 181. 10 mm left supraclavicular lymph node on image 187. Small pleural effusions. No pneumothorax. Intralobular septal thickening. Mild pulmonary emphysema. Mild bibasilar consolidation with subsegmental patchy ai rspace opacities of the left lung. Tracheal bronchus effusions with left lower lobe mucus plugging. Stable subpleural 1.3 x 0.9 cm nodule within the right upper lobe on image 142. No acute process of the imaged upper abdomen. Unremarkable soft tissues. Healing subacute appearing fractures of the anterior right second through fifth ribs without significant displacement. Additional healing fractures of the anterior left second through eighth ribs without significant displacement. Healed chronic left-sided rib fractures. IMPRESSION: 1. No pulmonary emboli identified. 2. Cardiomegaly with pulmonary edema, small pleural effusions and bibasilar atelectasis. 3. Left lower lobe mucous plugging with patchy airspace opacities of the left lung. Correlate clinically to exclude superimposed pneumonia. 4. Nonspecific mediastinal and supraclavicular lymphadenopathy. Attention at follow-up is needed. If the adenopathy persists, the right supraclavicular lymph node would be amenable to percutaneous biopsy. 5. Healing subacute nondisplaced bilateral anterior rib fractures. No pneumothorax. 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 Recently hospitalized from 11/04 to 11/24 at [facility] She was also admitted at [facility] from 12/02 to 12/03 with shortness of breath thought secondary to CHF. She was diuresed with Lasix and Diamox and was discharged home. COVID-19 was tested positive on 11/22 Chest x-ray personally reviewed; bilateral infiltrates, Pulmonary edema BNP elevated Echocardiogram results reviewed; EF of 55 to 60% with moderate-sized inferior and posterior wall abnormality with hypokinesis to akinesis of the segments. CT chest: 1. No pulmonary emboli identified. 2. Cardiomegaly with pulmonary edema, small pleural effusions and bibasilar atelectasis. 3. Left lower lobe mucous plugging with patchy airspace opacities of the left lung. Correlate clinically to exclude superimposed pneumonia. 4. Nonspecific mediastinal and supraclavicular lymphadenopathy. Attention at follow-up is needed. If the adenopathy persists, the right supraclavicular lymph node would be amenable to percutaneous biopsy. 5. Healing subacute nondisplaced bilateral anterior rib fractures. No pneumothorax. Given IV Lasix Titrated carefully due to episodes of hypotension Cardiology service also added and titrated metoprolol and lisinopril Patient also given nebs 4 times daily, Mucomyst, Mucinex, encourage incentive spirometry and flutter valve Was being given IV Zosyn already for suprapubic abscess, completed the course Patient's respiratory status improving, able to expectorate more mucus Improving overall transitioned to p.o. Lasix 20 daily. Cont. spironolactone 12.5 mg. Cont. Dual antiplatelet therapy. Metoprolol succinate decreased to 25 Continue nebs, Mucinex, etc. 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 Wound care consulted Continue wound VAC Postoperative cardiac arrest and had cardiac cath showing multivessel disease refused surgery s/p PCI to LM/LAD Reports intermittent chest pain from chest compression. Chest CT - healing nondisplaced b/l anterior rib fractures On Toprol-XL, Plavix, aspirin and statin. History of COPD and asthma Management per #1 COVID-19 first diagnosed in November 21 Received remdesivir and Decadron and completed steroid taper Still positive No isolation required Type II days mellitus Hold home p.o. medications Insulin sliding scale History of PVD and multiple procedures as mentioned in HPI and past surgical history On aspirin Plavix and statin History of CVA On aspirin Plavix and statin History of hypertension On metoprolol Management per above Hyperlipidemia On statin Depression General anxiety disorder On buspirone and duloxetine GERD On Protonix and sucralfate Anemia Hemoglobin ~8-9 Stable since admission in [place] History of GI bleed in the past Disposition - plan was to transition to rehab/care home facility however not able to be placed - CM involved - pt will be discharged home with home health - in care of her daughter. Total Time Total Time Spent Total Time Spent (In Minutes): 40 Discharge Plan Discharge Items Patient Disposition: Transfer Inpatient Rehab Fac Reason For Visit: SOB, CHF Discharge Diagnosis: ACUTE RESPIRATORY FAILURE ACUTE CONGESTIVE HEART FAILURE EXACERBATION COPD EXACERBATION Activity: As commented below Activity Comment: PT/OT, FALL PRECAUTIONS Non-emergency contact: Primary Care Provider, Specialist and Management Expert Call non-emergency contact if: you have any medication questions, your symptoms worsen, your pain is not controlled, your pain is worsening, your pain is unusual for you, your pain is concerning for you, you have a fever, your wound has increased redness, your wound has increased drainage and your wound pain has increased Follow-up/Referrals: Nnamdi King M.D. [Staff Physician] - (Date & Time 01/19/2023 11:10 AM Provider Nnamdi King MD Department Vascular Surgery, [facility] ) Courtney Jay MD [Primary Care Provider] - (Date & Time 12/28/2022 11:00 AM Provider Hi Williamson MD Department Family Medicine [facility] ) Kristen Schroeder CRNP [Nurse Practitioner] - (Date & Time 01/04/2023 9:00 AM Provider SHREE Ellis Department Cardiology, [facility] ) Kisha Benavidez MD [Physician] - (Date & Time 01/07/2023 9:40 AM Provider Kisha Benavidez MD Department Infectious Disease [facility] [place] ) Diet: Heart Healthy and Low Sodium (2gm) Fluids: 1800ml (7 cups) Addtl Attending Provider Instructions: Follow up with primary care physician, cardiology, vascular surgery, infectious disease - as above. For next 3 days do not take any furosemide. Continue to take metoprolol and other heart medications listed. As per cardiology - take Metoprolol succinate 25 mg daily (this dose was decreased from previous), continue taking aspirin and plavix daily. Take spironolactone 12.5 mg daily. Take furosemide (lasix) 20 mg daily (after next 3 days). MONITOR VOLUME STATUS CLOSELY. WOUND CARE per nursing - arranged home health for wound vac. You have finished antibiotic course. However, you need to follow up with infectious disease doctor. If there is any concern for infection prior to your appointment with infectious disease, contact primary care doctor. For COPD - recommend taking guaifenesin/ mucinex. Also use nebulizers as prescribed (albuterol, hypertonic saline). Addtl Emr Implementation Specialist Provider Instructions: Call your Primary Care doctor if any of the following symptoms or problems start or get worse: * Shortness of breath or difficulty breathing * Wake up at night short of breath * Chest pain * Cough * Swelling of your hands, feet, or legs * More fatigued or tired with your normal activity * Palpitations - sudden fast heart beats WEIGHT * Weigh yourself every morning after using the bathroom. * Use the same scale. * Wear the same amount of clothing. * Write your weight down on a chart. * Call your Primary Care doctor if you gain more than 2-3 pounds in 1-2 days. MEDICATIONS * Use this discharge instruction sheet for medication instructions. * Take your medications at the time your doctor ordered. * Do not skip a dose of your medicines. * If you miss a dose of medicine, take it as soon as possible, but DO NOT DOUBLE A DOSE. * Read your medicine information when you get home. * Know all of the side effects of your medicine. If in doubt, ask your pharmacist * Call your Primary Care doctor's office if you have any side effects. * Be sure all of your doctors know what medicine and herbs you take (including cold, flu, and herbal medicine). Take the following with you to your follow-up doctor appointments: * Weight Chart * Medication List * List of questions Do not drink excessive alcohol, beer or wine. Pending Studies at Discharge: No Stand-Alone Forms: My [facility] Skilled Items Patient informed of condition?: Yes DNR: No Discharge Level of Care: Acute rehab Communicable Disease: No Discharge Prognosis: Stable Lines: None Urinary Catheter: No Medications and DC Order Prescriptions: New ipratropium-albuterol 0.5 mg-3 mg(2.5 mg base)/3 mL Solution For Nebulization 3 ml NEB Q6R 7 Days Qty: 90 0RF miconazole nitrate [Desenex] 2 % Powder 1 applic EXT TID 7 Days Qty: 85 0RF spironolactone 25 mg Tablet 12.5 mg PO DAILY 30 Days Qty: 15 0RF lidocaine 5 % Adhesive Patch,Medicated 1 patch transdermal QAM PRN (Reason: rib pain) 7 Days Qty: 7 0RF furosemide 20 mg Tablet 20 mg PO QAM Qty: 30 0RF metoprolol succinate 25 mg Tablet Extended Release 24 Hr 25 mg PO QAM 30 Days Qty: 30 0RF cyclobenzaprine 5 mg Tablet 5 mg PO BID PRN (Reason: muscle spasm) Qty: 14 0RF sodium chloride 7 % Solution For Nebulization 4 ml NEB BIDR 7 Days Qty: 120 0RF guaifenesin [Mucinex] 600 mg Tablet Extended Release 12hr 600 mg PO Q12 7 Days Qty: 14 0RF nicotine 7 mg/24 hr Patch 24 Hour 14 mg transdermal QAM Qty: 7 0RF Continued oxycodone 5 mg tablet 5 mg PO Q6H PRN (Reason: pain) Qty: 14 0RF atorvastatin 40 mg tablet 40 mg PO QPM glipizide 10 mg tablet 10 mg PO QAM clopidogrel 75 mg tablet 75 mg PO QAM aspirin 81 mg Tablet,Delayed Release (Dr/Ec) 81 mg PO QAM loratadine 10 mg tablet 10 mg PO QAM buspirone 15 mg tablet 15 mg PO BID albuterol sulfate [Ventolin HFA] 90 mcg/actuation Hfa Aerosol Inhaler 2 puff INHALATION Q4 PRN (Reason: Shortness Of Breath) dicyclomine 10 mg Capsule 10 mg PO TID PRN (Reason: Abdominal Pain) sucralfate [Carafate] 1 gram Tablet 1 g PO ACHS calcium carbonate [Calcium 600] 600 mg calcium (1,500 mg) Tablet 600 mg PO BID pantoprazole 40 mg Tablet,Delayed Release (Dr/Ec) 40 mg PO DAILY ondansetron 4 mg Tablet,Disintegrating 4 mg PO Q8H PRN (Reason: Nausea) cholecalciferol (vitamin D3) 125 mcg (5,000 unit) Tablet 5,000 unit PO BID ipratropium-albuterol 0.5 mg-3 mg(2.5 mg base)/3 mL solution for nebulization 3 ml INHALATION Q4 PRN (Reason: Shortness Of Breath Or Wheezing) glipizide 10 mg tablet 5 mg PO QPM Colace 50 mg Capsule 50 mg PO HS nicotine 14 mg/24 hr Patch 24 Hour 1 patch TRANSDERMAL DAILY lidocaine 4 % Adhesive Patch,Medicated 1 patch TOPICAL DAILY PRN (Reason: Pain) potassium chloride 20 mEq tablet,ER particles/crystals 20 meq PO .DAILY UD Rx Instructions: Only when taking additional lasix. ascorbic acid (vitamin C) [Vitamin C] 500 mg Tablet 500 mg PO DAILY zinc 50 mg Tablet 50 mg PO DAILY nystatin [Nyamyc] 100,000 unit/gram powder 1 applic TOPICAL TID Align 4 mg Capsule 4 mg PO DAILY menthol-zinc oxide [Calmoseptine] 0.44-20.6 % Ointment 1 applic TOPICAL DIRECTED PRN (Reason: Sores on bottom) Trelegy Ellipta 100-62.5-25 mcg blister with device 1 inh INHALATION DAILY duloxetine 30 mg capsule,delayed release(DR/EC) 30 mg PO [facility]HS Discontinued furosemide 20 mg tablet 40 mg PO QAM metoprolol succinate 50 mg tablet extended release 24 hr 50 mg PO QAM fluconazole 200 mg tablet 400 mg PO QAM Zosyn Iv 1 dose IV TID Rx Instructions: 0600,1400, 2200 Discharge Orders: Discharge Order- CHF (Routine); Ordered 12/24/22 Ordered By: Edy Calhoun/Other Patient Handouts: Managing Type 2 Diabetes Admission Data Admit Date/Time: 12/13/22 20:23 Attending Provider: Edy Perez Admit Provider: Giovani Hernandez Primary Care Provider: Courtney Jay Other Providers: Teja Case ; Andi Kyle ; [facility] ; Jimmy Redd
[2022-12-24 16:18] VITALS: PULSE 94
[2022-12-24 17:19] VITALS: BP 110/65
== END 2022-12-24 18:26 | disposition home health service (06) | DRG 291 ==
LOC: ED 12:27 → SUATTDRO 20:23 → 2E 20:23

== ENCOUNTER 2023-01-04 17:55 | Inpatient (IN) ==
--- NOTE | 2023-01-04 18:24 | ED Triage Note ---
Date of Service January 04, 2023 History of Present Illness This patient was briefly evaluated while in triage. An abbreviated physical exam was performed. This patient is a 72-year-old Female who presents to the ED for evaluation of fall. Patient reports a fall 2 days ago. Notes recent sciatica on the left side causing difficulty with ambulation. Daughter also reports concerns to increased lethargy, decreased appetite, SOB, and worsening CHF. History of COPD on 2L. Denies fevers. Physical Exam Constitutional: alert and oriented x3. no acute distress. On 2L NC HEENT: normocephalic, atraumatic. normal conjunctiva.PERRLA. EOM's grossly intact. Respiratory: lungs are clear to auscultation without wheezes, rhonchi, or rales bilaterally. equal chest rise. normal respiratory effort, no accessory muscle use. Cardiovascular: normal heart sounds without murmur. regular rate and rhythm. GI: abdomen is soft, nontender. No palpable masses. No rebound tenderness or guarding. MSK: moves all 4 extremities spontaneously. No peripheral edema Psych:appropriate mood and affect. Initial orders for labs and / or imaging were placed and patient was taken to a treatment room immediately. Please see further documentation for the full ED course.
[2023-01-04] MEDS ORDERED: SODIUM CHLORIDE 0.9% 1,000 ML IV ONE (18:26)
--- NOTE | 2023-01-04 18:49 | Emergency Department Note ---
Impression & Plan Back pain, Stress fracture of sacrococcygeal region, Leukocytosis, Transaminitis, Elevated lactic acid level, Non-ST elevation IN (NSTEMI), Acute exacerbation of CHF (congestive heart failure) ED Provider Note HISTORY OF PRESENT ILLNESS: Patient is a 72-year-old female presenting with low back pain and recurrent falls. Patient reports that she fell last night while trying to weigh herself and fell straight back onto her buttocks. Reports that she had significant pain in her lower back and coccyx region ever since. She has been able to get up and ambulate today secondary to the pain. Denies any dysuria or hematuria. Denies any chest pain, lightheadedness or dizziness prior to the fall. Reports she just lost her footing. Denies striking her head or loss of consciousness. She is on aspirin and Plavix. Daughter at bedside reports the patient has gained 2 pounds in the last 4 days. She is also had a significantly poor appetite in the last 4 days, only eating bites of a cracker last few days. She took a Tylenol for the pain earlier today with little improvement in symptoms. Denies any saddle anesthesia. Does report some bladder incontinence. Reports that the patient has been more confused than normal. ROS: as above PHYSICAL EXAM: Constitutional: Patient appears in no acute distress. HENT: Head: Normocephalic and atraumatic. Eyes: EOMI, PERRL Mouth/Throat: Mucous membranes moist. Neck: Trachea midline. Neck supple. Cardiovascular: RRR, No murmurs, rubs or gallops. Intact distal pulses. Pulmonary/Chest: No respiratory distress. Breath sounds clear and equal bilaterally. No wheezes or rales. Abdominal: Abdomen soft, no rebound or guarding. Generalized TTP Back: No midline spinal tenderness, no paraspinal tenderness, no CVA tenderness. Patient is able to straight leg raise on the right without any pain, but complains of significant pain in her lower back with straight leg raise on the left. Musculoskeletal: No edema, tenderness or deformity noted. Skin: Warm and dry. No rash, erythema, pallor or cyanosis Psychiatric: Appropriate mood and affect for situation. Neurological: Alert and keenly responsive. CN II-XII grossly intact, moving all extremities equally and fully. MDM: - Vitals signs showed hypotension. - History obtained via patient and patient's daughter. Patient presents with low back pain and recurrent falls. Patient reports she fell last night while trying to wear self and fell straight back onto her buttocks. Denies striking her head loss of consciousness. She has been having pain in her low back and her pelvic region ever since. She denies any dysuria or hematuria. Denies any fevers. Denies any nausea or vomiting. She is on aspirin and Plavix. Daughter at [facility] reports she has gained 2 pounds in the last 4 days. She is also been acting more confused than normal. - Chronic conditions affecting care: anxiety/depression; HTN; HLD; CHF; CVA; CAD; COPD (on 2L NC) - Differential diagnoses include, but are not limited to: spinal fracture; UTI; CHF exacerbation; ACS; pneumonia - Order placed for continuous cardiac monitoring. At this time, monitor showed rate of 65 bpm with normal sinus rhythm, per my interpretation. - External medical records reviewed. Discharge summary dated 12/24/2022 was reviewed. Patient was admitted with congestive heart failure exacerbation and acute respiratory failure. - EKG reviewed by myself showed normal sinus rhythm. Rate 63 bpm. QTc 440. No acute ischemic changes. - Laboratory workup interpreted by myself showed leukocytosis (WBC 13.38) with left shift; chronic anemia; hyperkalemia (K 5.7); hyponatremia (Na 131); normal creatinine; transaminitis (AST 605; ALT 458); elevated troponin (15.8); elevated BNP (580); normal lipase - CXR showed cardiomegaly without pneumonia, per my interpretation. - CT head wo contrast negative for acute pathology. Noted to have large area of encephalomalacia and surrounding gliosis consistent with an old infarct - CT abdomen/pelvis with IV contrast showed bilateral pleural effusions and moderate cardiomegaly. Appendix is normal. Also noted to have nondisplaced fracture of the sacrococcygeal junction - CT lumbar spine wo contrast negative for infection lumbar spine. - CT pelvis wo contrast showed fracture of the sacrococcygeal junction. - Patient given 1L NS and 50 mcg IV fentanyl for pain control. - Patient's ideal body weight sepsis fluid resuscitation would be 1500 mL. However, she is in obvious heart failure so full 1500 mL was not obtained. - Blood cultures obtained. - Given 2g IV rocephin empirically given leukocytosis. - Discussion was had with social sciences lecturer about patient's case and need for admission - Hospitalist consulted for admission - [facility] ASSESSMENT AND PLAN: Diagnosis: back pain; sacrococcygeal fracture; leukocytosis; transaminitis; CHF exacerbation; elevated lactic acid; NSTEMI Plan: admit Past Med/Surg History Medical History (Updated 01/04/23 @ 21:27 by Farida Larson MD) Anemia Anxiety [place] esophagus COPD (chronic obstructive pulmonary disease) inhaler prn Coronary artery disease, occlusive Critical limb ischemia with history of revascularization of same extremity RLE CVA (cerebral vascular accident) 2008--slight left side weakness (no assistive devices)--follows with Dr. 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 not have a internist medical doctor md Obesity (BMI 30.0-34.9) On anticoagulant therapy plavix daily Osteoarthritis PVD (peripheral vascular disease) Right upper lobe pulmonary nodule Surgical History H/O: hysterectomy History of appendectomy History of bilateral cataract extraction History of bilateral tubal ligation History of bronchoscopy History of cardiac cath x2 both @ [facility]--2000 with 1 stent/2003--no stent, instead fem-pop bypass History of carotid endarterectomy 2009 on right side History of colonoscopy with polypectomy History of dilatation and curettage x3 History of endoscopic sinus surgery History of esophagogastroduodenoscopy (EGD) History of heart artery stent x1 before 2000? @ [facility] History of repair of right rotator cuff x2 History of tooth extraction most teeth Status post femoral-popliteal bypass surgery 2004 Status post femoropopliteal bypass surgery 11/06/[address] Jara---thrombectomy/Femoral-femoral bypass Family History Sister Family history of diabetes mellitus Family history of esophageal cancer Family hx of colon cancer Sister Family history of diabetes mellitus Sister Family history of diabetes mellitus Sister Family history of diabetes mellitus Sister Family history of diabetes mellitus Sister Family history of diabetes mellitus Sister Family history of diabetes mellitus Brother Family history of diabetes mellitus Brother Family history of diabetes mellitus Brother Family history of diabetes mellitus Other Diabetes No family history of adverse response to anesthesia Stroke Social History Smoking Status: Unknown if ever smoked Tobacco Type: Cigarettes Cigarettes Per Day: 20-40; Second Hand Exposure: Yes; Do You Dip or Chew Tobacco: No; Hx Alcohol Use: No Hx Substance Use: No Preferred Language: Kyrgyz Communication Ability: Effective Beer Merchant Required: No Beliefs That Will Affect Care: None Current Living Situation: Alone Current Living Situation Comment: Lives with daughter Feels Safe at Home: Yes Assistive Devices: Oxygen - Continuous Allergies Allergies Allergy/AdvReac Type Severity Reaction Status Date / Time methadone Allergy Severe "couldn't Verified 12/13/22 16:53 swallow/eyes coming out of head" nickel Allergy Severe swelling Verified 12/13/22 16:53 and infections nitroglycerin Allergy Intermediate DECREASED Verified 12/13/22 16:53 BP propoxyphene Allergy Intermediate edema to Verified 12/13/22 16:53 face/lips/tongue diclofenac Allergy Mild Rash Verified 12/13/22 16:53 hydrocodone Allergy Mild "severe Verified 12/13/22 16:53 constipation" levofloxacin [From Levaquin] Allergy Mild nausea/vomi Verified 12/13/22 16:53 ting Penicillins Allergy Mild severe Verified 12/13/22 16:53 diarrhea/rash sitagliptin [From Januvia] Allergy Mild rash Verified 03/21/19 18:20 "blood blisters" strawberry Allergy Mild Diarrhea Verified 03/21/19 18:20 Home Meds Home Medications Medication Instructions Recorded Confirmed aspirin 81 mg tablet,delayed 81 mg PO QAM 11/06/18 12/13/22 release atorvastatin 40 mg tablet 40 mg PO QPM 11/06/18 12/13/22 buspirone 15 mg tablet 15 mg PO BID 11/06/18 12/13/22 clopidogrel 75 mg tablet 75 mg PO QAM 11/06/18 12/13/22 glipizide 10 mg tablet 10 mg PO QAM 11/06/18 12/13/22 loratadine 10 mg tablet 10 mg PO QAM 11/06/18 12/13/22 albuterol sulfate 90 mcg/actuation 2 puff inhalation Q4 PRN Shortness 11/16/18 12/13/22 aerosol inhaler (Ventolin HFA) Of Breath dicyclomine 10 mg capsule 10 mg PO TID PRN Abdominal Pain 01/11/19 12/13/22 calcium carbonate 600 mg calcium 600 mg PO BID 03/21/19 12/13/22 (1,500 mg) tablet (Calcium) cholecalciferol (vitamin D3) 125 5,000 unit PO BID 03/21/19 12/13/22 mcg (5,000 unit) tablet ondansetron 4 mg disintegrating 4 mg PO Q8H PRN Nausea 03/21/19 12/13/22 tablet pantoprazole 40 mg tablet,delayed 40 mg PO DAILY 03/21/19 12/13/22 release sucralfate 1 gram tablet (Carafate) 1 g PO ACHS 03/21/19 12/13/22 Bifidobacterium infantis 4 mg 4 mg PO DAILY 12/13/22 12/13/22 capsule (Align) ascorbic acid (vitamin C) 500 mg 500 mg PO DAILY 12/13/22 12/13/22 tablet (Vitamin C) docusate sodium 50 mg capsule 50 mg PO HS 12/13/22 12/13/22 duloxetine 30 mg capsule,delayed 30 mg PO AMHS 12/13/22 12/13/22 release fluticasone fur. 100 mcg-umeclid 1 inh inhalation DAILY 12/13/22 12/13/22 62.5 mcg-vilant 25 mcg inhalat.powder (Trelegy Ellipta) glipizide 10 mg tablet 5 mg PO QPM 12/13/22 12/13/22 ipratropium 0.5 mg-albuterol 3 mg 3 ml inhalation Q4 PRN Shortness 12/13/22 12/13/22 (2.5 mg base)/3 mL nebulization Of Breath Or Wheezing soln lidocaine 4 % topical patch 1 patch topical DAILY PRN Pain 12/13/22 12/13/22 menthol 0.44 %-zinc oxide 20.6 % 1 applic topical DIRECTED PRN 12/13/22 12/13/22 topical ointment (Calmoseptine) Sores on bottom nicotine 14 mg/24 hr daily 1 patch transdermal DAILY 12/13/22 12/13/22 transdermal patch nystatin 100,000 unit/gram topical 1 applic topical TID 12/13/22 12/13/22 powder (Nyamyc) potassium chloride 20 mEq 20 meq PO .DAILY UD 10/02/23 10/02/23 tablet,extended release(part/cryst) zinc 50 mg tablet 50 mg PO DAILY 12/13/22 12/13/22 Previous Rx's Medication Instructions Recorded oxycodone 5 mg tablet 5 mg PO Q6H PRN pain #14 tabs 10/25/19 cyclobenzaprine 5 mg tablet 5 mg PO BID PRN muscle spasm #14 12/22/22 tabs furosemide 20 mg tablet 20 mg PO QAM #30 tabs 12/22/22 metoprolol succinate 25 mg 25 mg PO QAM 30 days #30 tabs 12/22/22 tablet,extended release 24 hr spironolactone 25 mg tablet 12.5 mg PO DAILY 30 days #15 tabs 12/22/22 nicotine 7 mg/24 hr daily 14 mg transdermal QAM #7 ea 12/24/22 transdermal patch Results & Data (ED) Vital Signs Vital Signs - 24 hr 01/04/23 18:18 01/04/23 18:24 01/04/23 18:37 Pulse Rate 62 64 Pulse Rate from SpO2 Sensor Respiratory Rate 16 Blood Pressure 92/52 L Blood Pressure [Left Arm] 70/54 L Blood Pressure Mean 65 Blood Pressure Mean [Left Arm] 59 Pulse Oximetry 97 Oxygen Delivery Method Nasal Cannula Oxygen Flow Rate 2 Sepsis Recent Fever Within 48 Hours No Sepsis New/Unexplained Change in Mental Status N/A Sepsis Action Taken by Nursing No Action Required 01/04/23 20:01 01/04/23 18:38 01/04/23 18:53 Pulse Rate 65 63 Pulse Rate from SpO2 Sensor Respiratory Rate 16 14 Blood Pressure 130/56 L Blood Pressure [Left Arm] Blood Pressure Mean 80 Blood Pressure Mean [Left Arm] Pulse Oximetry 96 95 Oxygen Delivery Method Nasal Cannula Nasal Cannula Oxygen Flow Rate 2 2 Sepsis Recent Fever Within 48 Hours Sepsis New/Unexplained Change in Mental Status Sepsis Action Taken by Nursing 01/04/23 19:00 01/04/23 19:43 01/04/23 19:44 Pulse Rate 63 62 63 Pulse Rate from SpO2 Sensor Respiratory Rate 17 18 17 Blood Pressure 119/48 L Blood Pressure [Left Arm] Blood Pressure Mean 71 Blood Pressure Mean [Left Arm] Pulse Oximetry 94 Oxygen Delivery Method Nasal Cannula Oxygen Flow Rate 2 Sepsis Recent Fever Within 48 Hours Sepsis New/Unexplained Change in Mental Status Sepsis Action Taken by Nursing 01/04/23 19:47 10/24/23 20:00 01/04/23 20:01 Pulse Rate 62 63 62 Pulse Rate from SpO2 Sensor 62 63 63 Respiratory Rate 21 20 19 Blood Pressure 82/58 L 82/65 L 81/59 L Blood Pressure [Left Arm] Blood Pressure Mean 66 70 66 Blood Pressure Mean [Left Arm] Pulse Oximetry 99 96 96 Oxygen Delivery Method Nasal Cannula Nasal Cannula Nasal Cannula Oxygen Flow Rate 2 2 2 Sepsis Recent Fever Within 48 Hours Sepsis New/Unexplained Change in Mental Status Sepsis Action Taken by Nursing 01/04/23 20:06 01/04/23 20:12 01/04/23 20:12 Pulse Rate 63 Pulse Rate from SpO2 Sensor Respiratory Rate 17 Blood Pressure Blood Pressure [Left Arm] Blood Pressure Mean 51 51 Blood Pressure Mean [Left Arm] Pulse Oximetry Oxygen Delivery Method Oxygen Flow Rate Sepsis Recent Fever Within 48 Hours Sepsis New/Unexplained Change in Mental Status Sepsis Action Taken by Nursing 01/04/23 20:22 01/04/23 20:25 01/04/23 20:30 Pulse Rate 65 64 64 Pulse Rate from SpO2 Sensor Respiratory Rate 19 23 Blood Pressure 92/55 L 118/58 L 114/61 Blood Pressure [Left Arm] Blood Pressure Mean 67 78 78 Blood Pressure Mean [Left Arm] Pulse Oximetry 94 95 Oxygen Delivery Method Nasal Cannula Nasal Cannula Oxygen Flow Rate 2 2 Sepsis Recent Fever Within 48 Hours Sepsis New/Unexplained Change in Mental Status Sepsis Action Taken by Nursing Laboratory Data 01/04/23 19:00 01/04/23 19:00 Lab Results 01/04/23 01/04/23 01/04/23 Range/Units 19:00 19:00 19:00 WBC 13.38 H (4.8-10.8) K/ul RBC 3.59 L (4.20-5.40) M/uL Hgb 9.3 L (12.0-16.0) g/dl Hct 30.9 L (37.0-47.0) % MCV 86.1 (80.0-100.0) fL MCH 25.9 (25.0-34.0) pg MCHC 30.1 L (32.0-36.0) g/dL RDW Std Deviation 51.1 H (36.4-46.3) fL RDW Coeff of Shahrzad 16.5 H (11.5-14.5) % Plt Count 419 H (130-400) K/uL MPV 10.9 (9.4-12.4) fL Immature Gran % (Auto) 1.0 % Neut % (Auto) 81.0 % Lymph % (Auto) 8.5 % Dunn % (Auto) 8.9 % Eos % (Auto) 0.2 % Baso % (Auto) 0.4 % Neut # (Auto) 10.84 H (1.40-6.50) K/uL Lymph # (Auto) 1.14 L (1.20-3.40) K/uL Dunn # (Auto) 1.19 H (0.11-0.59) K/uL Eos # (Auto) 0.03 (0.00-0.50) K/uL Baso # (Auto) 0.05 (0.00-0.20) K/uL Immature Gran # (Auto) 0.13 (0.01-0.20) K/uL Absolute Nucleated RBC 0.46 H (0.00-0.12) K/uL Nucleated RBC % (auto) 3.4 % Polychromasia 1+ Anisocytosis Present Sodium 131 L (136-145) mmol/L Potassium 5.7 H (3.5-5.1) mmol/L Chloride 99 (98-107) mmol/L Carbon Dioxide 27 (21-32) mmol/L Anion Gap 5 (3-11) BUN 28 H (6-23) mg/dl Creatinine 0.97 (0.6-1.2) mg/dl Est Cr Clr Drug Dosing Not Reportable Est GFR ( Amer) 67.2 ml/min Est GFR (Non-Af Amer) 57.9 ml/min BUN/Creatinine Ratio 28.9 H (10-20) Glucose 141 H (70-99(Fasting)) mg/dl Lactate (0.4-2.0) mmol/L Calcium 10.4 H (8.6-10.3) mg/dl Total Bilirubin 1.2 H (0.2-1.0) mg/dl AST 605 H (13-39) U/L ALT 458 H (7-52) U/L Alkaline Phosphatase 527 H (34-104) U/L Troponin I High Sens 15.8 H (0-14) pg/ml B-Natriuretic Peptide 580 H (0-100) pg/ml Total Protein 7.3 (6.0-8.3) gm/dl Albumin 3.6 (3.4-5.0) gm/dl Globulin 3.7 (2.5-4.0) gm/dl Albumin/Globulin Ratio 1.0 (0.9-2) Lipase 9 L (11-82) U/L 01/04/ Range/Units 20:27 WBC (4.8-10.8) K/ul RBC (4.20-5.40) M/uL Hgb (12.0-16.0) g/dl Hct (37.0-47.0) % MCV (80.0-100.0) fL MCH (25.0-34.0) pg MCHC (32.0-36.0) g/dL RDW Std Deviation (36.4-46.3) fL RDW Coeff of Shahrzad (11.5-14.5) % Plt Count (130-400) K/uL MPV (9.4-12.4) fL Immature Gran % (Auto) % Neut % (Auto) % Lymph % (Auto) % Dunn % (Auto) % Eos % (Auto) % Baso % (Auto) % Neut # (Auto) (1.40-6.50) K/uL Lymph # (Auto) (1.20-3.40) K/uL Dunn # (Auto) (0.11-0.59) K/uL Eos # (Auto) (0.00-0.50) K/uL Baso # (Auto) (0.00-0.20) K/uL Immature Gran # (Auto) (0.01-0.20) K/uL Absolute Nucleated RBC (0.00-0.12) K/uL Nucleated RBC % (auto) % Polychromasia Anisocytosis Sodium (136-145) mmol/L Potassium (3.5-5.1) mmol/L Chloride (98-107) mmol/L Carbon Dioxide (21-32) mmol/L Anion Gap (3-11) BUN (6-23) mg/dl Creatinine (0.6-1.2) mg/dl Est Cr Clr Drug Dosing Est GFR ( Amer) ml/min Est GFR (Non-Af Amer) ml/min BUN/Creatinine Ratio (10-20) Glucose (70-99(Fasting)) mg/dl Lactate 2.4 H* (0.4-2.0) mmol/L Calcium (8.6-10.3) mg/dl Total Bilirubin (0.2-1.0) mg/dl AST (13-39) U/L ALT (7-52) U/L Alkaline Phosphatase (34-104) U/L Troponin I High Sens (0-14) pg/ml B-Natriuretic Peptide (0-100) pg/ml Total Protein (6.0-8.3) gm/dl Albumin (3.4-5.0) gm/dl Globulin (2.5-4.0) gm/dl Albumin/Globulin Ratio (0.9-2) Lipase (11-82) U/L Administered Medications Discontinued Medications Fentanyl Citrate (Fentanyl Citrate Pf 100 Mcg/2 Ml Vial) 50 mcg IV NOW STA Stop: 01/04/23 20:08 Last Admin: 01/04/23 20:32 Dose: 50 mcg Documented By: SAB Sodium Chloride (Nss) 1,000 mls @ 999 mls/hr IV .Q1H1M ONE Stop: 01/04/23 19:26 Last Infusion: 01/04/23 20:49 Dose: 0 mls/hr Documented By: Admin: 01/04/23 19:08 Dose: 999 mls/hr Documented By: KT Ioversol (Optiray 320 100ml) 90 ml IV ONCE ONE Stop: 01/04/23 20:50 Last Admin: 01/04/23 20:55 Dose: 90 ml Documented By: PLW Imaging Data Radiologist's Impression: Chest X-Ray 01/04/23 18:26 XR chest 1V portable HISTORY: 72 years-old Female back pain acute chest and low back pain status post fall COMPARISON: 12/22/2022 TECHNIQUE: AP view of the chest FINDINGS: Cardiac silhouette is enlarged. Status post removal of the right-sided PICC. Trace pleural effusions. Pulmonary emphysema. Mildly improved pulmonary edema. A pneumothorax. Atherosclerosis of the aorta. Degenerative changes of the shoulders and spine. IMPRESSION: 1. Cardiomegaly with mildly improved pulmonary edema. 2. Trace pleural effusions. 3. Emphysema. 4. Status post removal of the right-sided PICC. ACT 112: Negative or not required by law. The above report was generated using voice recognition software. It may contain grammatical, syntax or spelling errors. Electronically signed by: Nilay Figueredo M.D. 01/04/2023 6:[address] 01/04/23 18:45 Exam(s): CT L SPINE EXAM: CT Lumbar Spine Without Intravenous Contrast CLINICAL HISTORY: Reason for exam: low back pain s/p fall. TECHNIQUE: Axial computed tomography images of the lumbar spine without intravenous contrast. CTDI is 39.4 mGy and DLP is 1873.66 mGy-cm. Automated exposure control was utilized for the study. A dose lowering technique was utilized adhering to the principles of ALARA. COMPARISON: No relevant prior studies available. FINDINGS: Vertebrae: Mild multilevel degenerative disc disease and facet arthrosis is seen throughout the mid to lower lumbar spine. No acute fracture or subluxation is seen. There is diffuse osteopenia. The lumbar spine vertebral body heights are normally maintained. No compression fracture or burst fracture is seen. Discs/spinal canal/neural foramina: See above. Soft tissues: Paraspinous soft tissues are within normal limits. Vasculature: Severe calcification of the common iliac arteries bilaterally. There is an arterial stent in the superior mesenteric artery. There is moderate calcification of a nondilated abdominal aorta. IMPRESSION: 1. Mild multilevel degenerative disc disease and facet arthrosis is seen throughout the mid to lower lumbar spine. No acute fracture or subluxation is seen. 2. The lumbar spine vertebral body heights are normally maintained. No compression fracture or burst fracture is seen. Electronically signed by: Heladio Sigala MD 01/04/23 20:[address] 01/04/23 18:45 Exam(s): CT PELVIS Without Contrast EXAM: CT Pelvis Without Intravenous Contrast CLINICAL HISTORY: Reason for exam: sacral pain s/p fall. TECHNIQUE: Axial computed tomography images of the pelvis without intravenous contrast. CTDI is 39.4 mGy and DLP is 1873.66 mGy-cm. Automated exposure control was utilized for the study. A dose lowering technique was utilized adhering to the principles of ALARA. COMPARISON: No relevant prior studies available. FINDINGS: Bowel: Unremarkable. No obstruction. No mucosal thickening. Appendix: The appendix is normal. Bowel loops are nondilated. No acute inflammatory changes are seen involving the bowel. Intraperitoneal space: There is a small amount of free fluid in the inferior aspect of the paracolic gutters. This is nonspecific. No free air. Bladder: Unremarkable. No stones. Reproductive: The uterus has been removed. Bones/joints: There is a fracture of the sacrococcygeal junction, essentially nondisplaced. Mild osteoarthritic changes of both hips. No hip fracture or dislocation is identified. Previous femorofemoral bypass graft. Soft tissues: Unremarkable. Vasculature: Moderate to severe diffuse arterial calcification is present. Lymph nodes: Unremarkable. No enlarged lymph nodes. IMPRESSION: 1. There is a fracture of the sacrococcygeal junction, essentially nondisplaced. 2. There is a small amount of free fluid in the inferior aspect of the paracolic gutters. This is nonspecific. 3. Mild osteoarthritic changes of both hips. No hip fracture or dislocation is identified. 4. The appendix is normal. Bowel loops are nondilated. No acute inflammatory changes are seen involving the bowel. Electronically signed by: Heladio Sigala MD 01/04/23 20:21 PM Abdomen/Pelvis CT 01/04/23 19:55 Exam(s): CT ABDOMEN + PELVIS With Contrast IV Amt: 90 ml opti 320 EXAM: CT Abdomen and Pelvis With Intravenous Contrast CLINICAL HISTORY: Reason for exam: transaminitis. TECHNIQUE: Axial computed tomography images of the abdomen and pelvis with intravenous contrast. CTDI is 25.95 mGy and DLP is 1253.29 mGy-cm. Automated exposure control was utilized for the study. A dose lowering technique was utilized adhering to the principles of ALARA. CONTRAST: Patient received 90 ml Opti 320 of IV contrast COMPARISON: CT pelvis from January 04, 2023 FINDINGS: Lung bases: See below. Pleural space: There are trace bilateral pleural effusions and moderate cardiomegaly. Consider mild CHF. ABDOMEN: Liver: Unremarkable. No mass. Gallbladder and bile ducts: Unremarkable. No calcified stones. No ductal dilation. Pancreas: Unremarkable. No mass. No ductal dilation. Spleen: Unremarkable. No splenomegaly. Adrenals: Unremarkable. No mass. Kidneys and ureters: Unremarkable. No solid mass. No hydronephrosis. Stomach and bowel: Unremarkable. No obstruction. No mucosal thickening. PELVIS: Appendix: The appendix is normal. Bowel loops are nondilated. No acute inflammatory changes are seen involving the bowel. Bladder: Unremarkable. No mass. Reproductive: Unremarkable as visualized. ABDOMEN and PELVIS: Intraperitoneal space: The liver is mildly fatty infiltrated. The size is within normal limits measuring 16.7 cm. There is a small amount of free fluid in the upper abdomen surrounding the liver and spleen. No free air. Bones/joints: Mild degenerative changes throughout the spine. Probable nondisplaced fracture of the sacrococcygeal junction. Soft tissues: Unremarkable. Vasculature: There is a patent femorofemoral bypass graft in the anterior pelvis. 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 The abdominal aorta is severely calcified. There is a patent stent in the superior mesenteric artery. No abdominal aortic aneurysm. Lymph nodes: Unremarkable. No enlarged lymph nodes. IMPRESSION: 1. There are trace bilateral pleural effusions and moderate cardiomegaly. There is a small amount of free fluid within the abdomen and pelvis as well as diffuse anasarca over the torso. Consider mild CHF. 2. The appendix is normal. Bowel loops are nondilated. No acute inflammatory changes are seen involving the bowel. No acute process is seen within the abdomen or pelvis. 3. Probable nondisplaced fracture at the sacrococcygeal junction. Electronically signed by: Heladio Sigala MD 01/04/23 21:[address] 01/04/23 20:46 Exam(s): CT HEAD Without Contrast EXAM: CT Head Without Intravenous Contrast CLINICAL HISTORY: Reason for exam: confusion. TECHNIQUE: Axial computed tomography images of the head/brain without intravenous contrast. CTDI is 36.79 mGy and DLP is 702.46 mGy-cm. Automated exposure control was utilized for the study. A dose lowering technique was utilized adhering to the principles of ALARA. COMPARISON: July 02, 2008 FINDINGS: Brain: There is an approximately 7 x 4 x 4.4 cm area of encephalomalacia and surrounding gliosis in the right frontal temporal region consistent with old infarct. There is mild periventricular white matter low density consistent with chronic small vessel disease in the brain is otherwise unremarkable. No acute large vessel infarct or intracranial hemorrhage is seen. Ventricles: Unremarkable. No ventriculomegaly. Bones/joints: Unremarkable. No acute fracture. Soft tissues: Unremarkable. Sinuses: Trace amount of chronic appearing mucosal thickening in the left maxillary sinus. Mastoid air cells: Unremarkable as visualized. No mastoid effusion. IMPRESSION: There is an approximately 7 x 4 x 4.4 cm area of encephalomalacia and surrounding gliosis in the right frontal temporal region consistent with old infarct. There is mild periventricular white matter low density consistent with chronic small vessel disease in the brain is otherwise unremarkable. No acute large vessel infarct or intracranial hemorrhage is seen. Electronically signed by: Heladio Sigala MD 01/04/23 21:09 PM Discharge Plan Visit Data Chief Complaint: Back Injury/Pain Stated Complaint: FALL, BLOOD THINNER, BACK PAIN ED Provider: Farida Larson Discharge Problem: Back pain, Stress fracture of sacrococcygeal region, Leukocytosis, Trans aminitis, Elevated lactic acid level, Non-ST elevation IN (NSTEMI), Acute exacerbation of CHF (congestive heart failure) Forms Stand Alone Forms: [facility] Prescriptions Prescriptions: No Action oxycodone 5 mg tablet 5 mg PO Q6H PRN (Reason: pain) Qty: 14 0RF atorvastatin 40 mg tablet 40 mg PO QPM glipizide 10 mg tablet 10 mg PO QAM clopidogrel 75 mg tablet 75 mg PO QAM aspirin 81 mg Tablet,Delayed Release (Dr/Ec) 81 mg PO QAM loratadine 10 mg tablet 10 mg PO QAM buspirone 15 mg tablet 15 mg PO BID albuterol sulfate [Ventolin HFA] 90 mcg/actuation Hfa Aerosol Inhaler 2 puff INHALATION Q4 PRN (Reason: Shortness Of Breath) dicyclomine 10 mg Capsule 10 mg PO TID PRN (Reason: Abdominal Pain) sucralfate [Carafate] 1 gram Tablet 1 g PO ACHS calcium carbonate [Calcium 600] 600 mg calcium (1,500 mg) Tablet 600 mg PO BID pantoprazole 40 mg Tablet,Delayed Release (Dr/Ec) 40 mg PO DAILY ondansetron 4 mg Tablet,Disintegrating 4 mg PO Q8H PRN (Reason: Nausea) cholecalciferol (vitamin D3) 125 mcg (5,000 unit) Tablet 5,000 unit PO BID ipratropium-albuterol 0.5 mg-3 mg(2.5 mg base)/3 mL solution for nebulization 3 ml INHALATION Q4 PRN (Reason: Shortness Of Breath Or Wheezing) glipizide 10 mg tablet 5 mg PO QPM docusate sodium 50 mg Capsule 50 mg PO HS nicotine 14 mg/24 hr Patch 24 Hour 1 patch TRANSDERMAL DAILY lidocaine 4 % Adhesive Patch,Medicated 1 patch TOPICAL DAILY PRN (Reason: Pain) potassium chloride 20 mEq tablet,ER particles/crystals 20 meq PO .DAILY UD Rx Instructions: Only when taking additional lasix. ascorbic acid (vitamin C) [Vitamin C] 500 mg Tablet 500 mg PO DAILY zinc 50 mg Tablet 50 mg PO DAILY nystatin [Nyamyc] 100,000 unit/gram powder 1 applic TOPICAL TID Align 4 mg Capsule 4 mg PO DAILY menthol-zinc oxide [Calmoseptine] 0.44-20.6 % Ointment 1 applic TOPICAL DIRECTED PRN (Reason: Sores on bottom) Trelegy Ellipta 100-62.5-25 mcg blister with device 1 inh INHALATION DAILY duloxetine 30 mg capsule,delayed release(DR/EC) 30 mg PO AMHS spironolactone 25 mg Tablet 12.5 mg PO DAILY 30 Days Qty: 15 0RF furosemide 20 mg Tablet 20 mg PO QAM Qty: 30 0RF metoprolol succinate 25 mg Tablet Extended Release 24 Hr 25 mg PO QAM 30 Days Qty: 30 0RF cyclobenzaprine 5 mg Tablet 5 mg PO BID PRN (Reason: muscle spasm) Qty: 14 0RF nicotine 7 mg/24 hr Patch 24 Hour 14 mg transdermal QAM Qty: 7 0RF Referrals Referrals: Courtney Jay MD [Primary Care Provider] -
[2023-01-04 19:30] LABS: Basophils # (auto) 0.05 K/uL (0.00-0.20); Basophils % (auto) 0.4 %; Eosinophils # (auto) 0.03 K/uL (0.00-0.50); Eosinophils % (auto) 0.2 %; Hematocrit (blood only) 30.9 % (37.0-47.0); Hemoglobin 9.3 g/dl (12.0-16.0); Immature Granulocytes # (auto) 0.13 K/uL (0.01-0.20); Lymphocytes # (auto) 1.14 K/uL (1.20-3.40); Lymphocytes % (auto) 8.5 %; Mean Corpuscular Hemoglobin 25.9 pg (25.0-34.0); Mean Corpuscular Hgb Conc 30.1 g/dL (32.0-36.0); Mean Corpuscular Volume 86.1 fL (80.0-100.0); Mean Platelet Volume 10.9 fL (9.4-12.4); Monocytes # (auto) 1.19 K/uL (0.11-0.59); Monocytes % (auto) 8.9 %; Neutrophils # (auto) 10.84 K/uL (1.40-6.50); Nucleated RBC # (auto) 0.46 K/uL (0.00-0.12); Nucleated RBC % (auto) 3.4 %; Platelet Count 419 K/uL (130-400); RDW Coefficient of Variation 16.5 % (11.5-14.5); RDW Standard Deviation 51.1 fL (36.4-46.3); Red Blood Count 3.59 M/uL (4.20-5.40); White Blood Count 13.38 K/ul (4.8-10.8)
[2023-01-04 19:46] LABS: Alanine Aminotransferase 458 U/L (7-52); Albumin Level 3.6 gm/dl (3.4-5.0); Alkaline Phosphatase 527 U/L (34-104); Anion Gap 5 (3-11); Aspartate Aminotransferase 605 U/L (13-39); BUN Creatinine Ratio 28.9 (10-20); Bilirubin,Total 1.2 mg/dl (0.2-1.0); Blood Urea Nitrogen 28 mg/dl (6-23); Calcium 10.4 mg/dl (8.6-10.3); Carbon Dioxide 27 mmol/L (21-32); Chloride 99 mmol/L (98-107); Est GFR (African American) 67.2 ml/min; Est GFR (Non-African American) 57.9 ml/min; Globulin 3.7 gm/dl (2.5-4.0); Glucose 141 mg/dl (70-99(Fasting)); Potassium 5.7 mmol/L (3.5-5.1); Sodium 131 mmol/L (136-145); Total Protein 7.3 gm/dl (6.0-8.3)
[2023-01-04 19:51] LABS: Troponin I High Sensitivity 15.8 pg/ml (0-14)
[2023-01-04 19:58] LABS: Anisocytosis Present; Polychromasia 1+
[2023-01-04] MEDS ORDERED: fentaNYL citrate PF 100 MCG/2 ML VIAL IV STA (20:07)
--- NOTE | 2023-01-04 20:18 | CT Scan Report ---
Exam(s): CT L SPINE EXAM: CT Lumbar Spine Without Intravenous Contrast CLINICAL HISTORY: Reason for exam: low back pain s/p fall. TECHNIQUE: Axial computed tomography images of the lumbar spine without intravenous contrast. CTDI is 39.4 mGy and DLP is 1873.66 mGy-cm. Automated exposure control was utilized for the study. A dose lowering technique was utilized adhering to the principles of ALARA. COMPARISON: No relevant prior studies available. FINDINGS: Vertebrae: Mild multilevel degenerative disc disease and facet arthrosis is seen throughout the mid to lower lumbar spine. No acute fracture or subluxation is seen. There is diffuse osteopenia. The lumbar spine vertebral body heights are normally maintained. No compression fracture or burst fracture is seen. Discs/spinal canal/neural foramina: See above. Soft tissues: Paraspinous soft tissues are within normal limits. Vasculature: Severe calcification of the common iliac arteries bilaterally. There is an arterial stent in the superior mesenteric artery. There is moderate calcification of a nondilated abdominal aorta. IMPRESSION: 1. Mild multilevel degenerative disc disease and facet arthrosis is seen throughout the mid to lower lumbar spine. No acute fracture or subluxation is seen. 2. The lumbar spine vertebral body heights are normally maintained. No compression fracture or burst fracture is seen. Electronically signed by: Heladio Sigala MD 01/04/23 20:18 PM
--- NOTE | 2023-01-04 20:22 | CT Scan Report ---
Exam(s): CT PELVIS Without Contrast EXAM: CT Pelvis Without Intravenous Contrast CLINICAL HISTORY: Reason for exam: sacral pain s/p fall. TECHNIQUE: Axial computed tomography images of the pelvis without intravenous contrast. CTDI is 39.4 mGy and DLP is 1873.66 mGy-cm. Automated exposure control was utilized for the study. A dose lowering technique was utilized adhering to the principles of ALARA. COMPARISON: No relevant prior studies available. FINDINGS: Bowel: Unremarkable. No obstruction. No mucosal thickening. Appendix: The appendix is normal. Bowel loops are nondilated. No acute inflammatory changes are seen involving the bowel. Intraperitoneal space: There is a small amount of free fluid in the inferior aspect of the paracolic gutters. This is nonspecific. No free air. Bladder: Unremarkable. No stones. Reproductive: The uterus has been removed. Bones/joints: There is a fracture of the sacrococcygeal junction, essentially nondisplaced. Mild osteoarthritic changes of both hips. No hip fracture or dislocation is identified. Previous femorofemoral bypass graft. Soft tissues: Unremarkable. Vasculature: Moderate to severe diffuse arterial calcification is present. Lymph nodes: Unremarkable. No enlarged lymph nodes. IMPRESSION: 1. There is a fracture of the sacrococcygeal junction, essentially nondisplaced. 2. There is a small amount of free fluid in the inferior aspect of the paracolic gutters. This is nonspecific. 3. Mild osteoarthritic changes of both hips. No hip fracture or dislocation is identified. 4. The appendix is normal. Bowel loops are nondilated. No acute inflammatory changes are seen involving the bowel. Electronically signed by: Heladio Sigala MD 01/04/23 20:21 PM
[2023-01-04] MEDS ORDERED: OPTIRAY 320 100ml IV ONE (20:49)
--- NOTE | 2023-01-04 21:09 | CT Scan Report ---
Exam(s): CT HEAD Without Contrast EXAM: CT Head Without Intravenous Contrast CLINICAL HISTORY: Reason for exam: confusion. TECHNIQUE: Axial computed tomography images of the head/brain without intravenous contrast. CTDI is 36.79 mGy and DLP is 702.46 mGy-cm. Automated exposure control was utilized for the study. A dose lowering technique was utilized adhering to the principles of ALARA. COMPARISON: July 02, 2008 FINDINGS: Brain: There is an approximately 7 x 4 x 4.4 cm area of encephalomalacia and surrounding gliosis in the right frontal temporal region consistent with old infarct. There is mild periventricular white matter low density consistent with chronic small vessel disease in the brain is otherwise unremarkable. No acute large vessel infarct or intracranial hemorrhage is seen. Ventricles: Unremarkable. No ventriculomegaly. Bones/joints: Unremarkable. No acute fracture. Soft tissues: Unremarkable. Sinuses: Trace amount of chronic appearing mucosal thickening in the left maxillary sinus. Mastoid air cells: Unremarkable as visualized. No mastoid effusion. IMPRESSION: There is an approximately 7 x 4 x 4.4 cm area of encephalomalacia and surrounding gliosis in the right frontal temporal region consistent with old infarct. There is mild periventricular white matter low density consistent with chronic small vessel disease in the brain is otherwise unremarkable. No acute large vessel infarct or intracranial hemorrhage is seen. Electronically signed by: Heladio Sigala MD 01/04/23 21:09 PM
[2023-01-04 21:18] LABS: Lipase 9 U/L (11-82)
[2023-01-04] MEDS ORDERED: cefTRIAXone SODIUM 2,000 MG/50 ML BAG IV STA (21:19)
--- NOTE | 2023-01-04 21:19 | CT Scan Report ---
Exam(s): CT ABDOMEN + PELVIS With Contrast IV Amt: 90 ml opti 320 EXAM: CT Abdomen and Pelvis With Intravenous Contrast CLINICAL HISTORY: Reason for exam: transaminitis. TECHNIQUE: Axial computed tomography images of the abdomen and pelvis with intravenous contrast. CTDI is 25.95 mGy and DLP is 1253.29 mGy-cm. Automated exposure control was utilized for the study. A dose lowering technique was utilized adhering to the principles of ALARA. CONTRAST: Patient received 90 ml Opti 320 of IV contrast COMPARISON: CT pelvis from January 04, 2023 FINDINGS: Lung bases: See below. Pleural space: There are trace bilateral pleural effusions and moderate cardiomegaly. Consider mild CHF. ABDOMEN: Liver: Unremarkable. No mass. Gallbladder and bile ducts: Unremarkable. No calcified stones. No ductal dilation. Pancreas: Unremarkable. No mass. No ductal dilation. Spleen: Unremarkable. No splenomegaly. Adrenals: Unremarkable. No mass. Kidneys and ureters: Unremarkable. No solid mass. No hydronephrosis. Stomach and bowel: Unremarkable. No obstruction. No mucosal thickening. PELVIS: Appendix: The appendix is normal. Bowel loops are nondilated. No acute inflammatory changes are seen involving the bowel. Bladder: Unremarkable. No mass. Reproductive: Unremarkable as visualized. ABDOMEN and PELVIS: Intraperitoneal space: The liver is mildly fatty infiltrated. The size is within normal limits measuring 16.7 cm. There is a small amount of free fluid in the upper abdomen surrounding the liver and spleen. No free air. Bones/joints: Mild degenerative changes throughout the spine. Probable nondisplaced fracture of the sacrococcygeal junction. Soft tissues: Unremarkable. Vasculature: There is a patent femorofemoral bypass graft in the anterior pelvis. 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 The abdominal aorta is severely calcified. There is a patent stent in the superior mesenteric artery. No abdominal aortic aneurysm. Lymph nodes: Unremarkable. No enlarged lymph nodes. IMPRESSION: 1. There are trace bilateral pleural effusions and moderate cardiomegaly. There is a small amount of free fluid within the abdomen and pelvis as well as diffuse anasarca over the torso. Consider mild CHF. 2. The appendix is normal. Bowel loops are nondilated. No acute inflammatory changes are seen involving the bowel. No acute process is seen within the abdomen or pelvis. 3. Probable nondisplaced fracture at the sacrococcygeal junction. Electronically signed by: Heladio Sigala MD 01/04/23 21:18 PM
[2023-01-04] MEDS ORDERED: ALBUMIN 25% 25 GM/100 ML VIAL IV ONE (21:44)
[2023-01-04] MEDS ORDERED: DEXTROSE 50% 50 ML SYRINGE IV ONE (21:44)
[2023-01-04] MEDS ORDERED: NovoLIN-R INSULIN PER UNIT CHARGE IV STA (21:51)
[2023-01-04 21:57] LABS: Appearance Urine Clear (Clear); Bacteria Urine Automated Negative (Negative); Bilirubin Urine Negative (Negative); Blood Urine Negative (Negative); Color Urine Dark Yellow; Epithelial Cell Urine Auto >30 /lpf (0-5); Glucose Urine UA Negative (Negative); Ketones Urine Negative (Negative); Leukocyte Esterase Urine 1+ (Negative); Nitrite Urine Negative (Negative); Protein Urine Negative (Negative); RBC Urine Automated 0-4 /hpf (0-4); Specific Gravity Urine 1.018 (1.000-1.030); Urobilinogen Urine Negative (Negative); pH Urine 5.5 (4.5-7.5)
[2023-01-04 22:05] LABS: Magnesium 1.6 mg/dl (1.7-2.4)
[2023-01-04 22:13] LABS: Cast Urine Automated >30 /lpf (0-5)
[2023-01-05] MEDS ORDERED: ALBUMIN 25% 25 GM/100 ML VIAL IV ONE (01:38)
--- NOTE | 2023-01-05 01:57 | History & Physical Report ---
Date of Service January 05, 2023 Assessment & Plan (1) Severe sepsis: Plan: Severe sepsis SIRS plus lactic acidosis secondary to complicated UTI Troponin elevation secondary to illness HTN, patient BP currently borderline Hyperkalemia secondary to home medications Transaminitis secondary to hepatic congestion from CHF chronic diastolic heart failure (EF 55 to 60%, TTE 2022), equivocal volume status given congestion on x-ray, patient intravascularly dry valvular heart disease (severe MR, mild TR) hx CAD status post stent PVD status post surgery CVA COPD, lung status at baseline hyperlipidemia, on statin Rx DM 2 on oral medications, well-controlled as of recent hemoglobin A1c of 6.8 this month chronic anemia, hemoglobin at baseline Traumatic tailbone fracture, ambulatory dysfunction ongoing tobacco abuse. Medical telemetry CS, Ceftriaxone Follow troponin Monitor lactic acid response to IV albumin (preferred over crystalloid given congestion on imaging; guideline recommended 30 cc/kg IBW fluid bolus administration over 3 hours currently precluded by pulmonary congestion) Resume home diuretics once patient euvolemic and BP stable Regular insulin for hyperkalemia, hold spironolactone for now Follow LFTs, hold statin for now Lidocaine patch trial for his tailbone fracture PT OT eval once medically stable DVT prophylaxis. Lovenox subcu DNR as per patient. Patient requests for daughter to be given periodic updates regarding care. Ms. Diamond Braxton, contact #[phone]. Text document was generated using [employer] voice recognition software. It may contain grammatical or spelling errors. Kindly contact undersigned for clarification of any documentation item in question. History of Present Illness Chief Complaint: Back pain, recurrent falls Primary Care Provider: Courtney Jay MD History obtained from patient and records. Medical history significant for chronic diastolic heart failure (EF 55 to 60%, TTE 2022), valvular heart disease (severe MR, mild TR), CAD status post stent, PVD status post surgery, CVA, hx intracranial hemorrhage as per records, COPD, hypertension, hyperlipidemia, DM 2 on oral medications, chronic anemia (baseline hemoglobin 8- 9), mood disorder, ongoing tobacco abuse. Recent confinement December 13 to 2022 for respiratory failure secondary to CHF/COPD exacerbation. Patient fell in her bathroom 3 days ago secondary to loss of balance. Achy tailbone pain following fall. No head trauma/LOC/chest pain/unusual shortness of breath. Usual cough symptoms. Denies weight gain. Patient brought to the ER for evaluation. Lowest SBP of 70s documented at the ER. IV ceftriaxone and NSS bolus administered at the ER. SBP currently 100s. Medical History as above Surgical History : Vascular procedures, skin grafting, partial hysterectomy, cataract surgery, toe amputation, bladder neck procedure, skin debridement Family History : Breast cancer, DM, stroke Personal/Social history : Few cigarettes a day, no EtOH intake, disabled Allergies Allergy/AdvReac Type Severity Reaction Status Date / Time methadone Allergy Severe "couldn't Verified 12/13/22 16:53 swallow/eyes coming out of head" nickel Allergy Severe swelling Verified 12/13/22 16:53 and infections nitroglycerin Allergy Intermediate DECREASED Verified 12/13/22 16:53 BP propoxyphene Allergy Intermediate edema to Verified 12/13/22 16:53 face/lips/tongue diclofenac Allergy Mild Rash Verified 12/13/22 16:53 hydrocodone Allergy Mild "severe Verified 12/13/22 16:53 constipation" levofloxacin [From Levaquin] Allergy Mild nausea/vomi Verified 12/13/22 16:53 ting Penicillins Allergy Mild severe Verified 12/13/22 16:53 diarrhea/rash sitagliptin [From Januvia] Allergy Mild rash Verified 03/21/19 18:20 "blood blisters" strawberry Allergy Mild Diarrhea Verified 03/21/19 18:20 Home Medications Medication Instructions Recorded Confirmed Type aspirin 81 mg tablet,delayed 81 mg PO QAM 11/06/18 01/04/23 History release atorvastatin 40 mg tablet 40 mg PO QPM 11/06/18 01/04/23 History buspirone 15 mg tablet 15 mg PO BID 11/06/18 01/04/23 History clopidogrel 75 mg tablet 75 mg PO QAM 11/06/18 01/04/23 History glipizide 10 mg tablet 10 mg PO QAM 11/06/18 01/04/23 History loratadine 10 mg tablet 10 mg PO QAM 11/06/18 01/04/23 History albuterol sulfate 90 mcg/actuation 2 puff inhalation Q4 PRN Shortness 11/16/18 01/04/23 History aerosol inhaler (Ventolin HFA) Of Breath dicyclomine 10 mg capsule 10 mg PO TID PRN Abdominal Pain 01/11/19 01/04/23 History calcium carbonate 600 mg calcium 600 mg PO BID 03/21/19 01/04/23 History (1,500 mg) tablet (Calcium) cholecalciferol (vitamin D3) 125 5,000 unit PO BID 03/21/19 01/04/23 History mcg (5,000 unit) tablet ondansetron 4 mg disintegrating 4 mg PO Q8H PRN Nausea 03/21/19 01/04/23 History tablet pantoprazole 40 mg tablet,delayed 40 mg PO DAILY 03/21/19 01/04/23 History release sucralfate 1 gram tablet (Carafate) 1 g PO ACHS 03/21/19 01/04/23 History oxycodone 5 mg tablet 5 mg PO Q6H PRN pain #14 tabs 10/25/19 01/04/23 Rx Bifidobacterium infantis 4 mg 4 mg PO DAILY 12/13/22 01/04/23 History capsule (Align) ascorbic acid (vitamin C) 500 mg 500 mg PO DAILY 12/13/22 01/04/23 History tablet (Vitamin C) docusate sodium 50 mg capsule 50 mg PO HS 12/13/22 01/04/23 History duloxetine 30 mg capsule,delayed 30 mg PO AMHS 12/13/22 01/04/23 History release fluticasone fur. 100 mcg-umeclid 1 inh inhalation DAILY 12/13/22 01/04/23 History 62.5 mcg-vilant 25 mcg inhalat.powder (Trelegy Ellipta) glipizide 10 mg tablet 5 mg PO QPM 12/13/22 01/04/23 History ipratropium 0.5 mg-albuterol 3 mg 3 ml inhalation Q4 PRN Shortness 12/13/22 01/04/23 History (2.5 mg base)/3 mL nebulization Of Breath Or Wheezing soln lidocaine 4 % topical patch 1 patch topical DAILY PRN Pain 12/13/22 01/04/23 History menthol 0.44 %-zinc oxide 20.6 % 1 applic topical DIRECTED PRN 12/13/22 01/04/23 History topical ointment (Calmoseptine) Sores on bottom nicotine 14 mg/24 hr daily 1 patch transdermal .DAILY 12/13/22 01/04/23 History transdermal patch DIRECTED nystatin 100,000 unit/gram topical 1 applic topical TID 12/13/22 01/04/23 History powder (Nyamyc) potassium chloride 20 mEq 20 meq PO .DAILY UD 12/13/22 01/04/23 History tablet,extended release(part/cryst) zinc 50 mg tablet 50 mg PO DAILY 12/13/22 01/04/23 History cyclobenzaprine 5 mg tablet 5 mg PO BID PRN muscle spasm #14 12/22/22 01/04/23 Rx tabs furosemide 20 mg tablet 20 mg PO QAM #30 tabs 12/22/22 01/04/23 Rx metoprolol succinate 25 mg 25 mg PO QAM 30 days #30 tabs 12/22/22 01/04/23 Rx tablet,extended release 24 hr spironolactone 25 mg tablet 12.5 mg PO DAILY 30 days #15 tabs 12/22/22 01/04/23 Rx nicotine 7 mg/24 hr daily 14 mg transdermal QAM #7 ea 12/24/22 01/04/23 Rx transdermal patch sodium chloride 7 % for 4 ml inhalation BID 01/04/23 01/04/23 History nebulization Past Med/Surg History Medical History (Updated 01/05/23 @ 12:37 by Patricio Araujo MD) Anemia Anxiety [place] esophagus COPD (chronic obstructive pulmonary disease) inhaler prn Coronary artery disease, occlusive Critical limb ischemia with history of revascularization of same extremity RLE CVA (cerebral vascular accident) 2008--slight left side weakness (no assistive devices)--follows with Dr. 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 Obesity (BMI 30.0-34.9) On anticoagulant therapy plavix daily Osteoarthritis PVD (peripheral vascular disease) Right upper lobe pulmonary nodule Surgical History H/O: hysterectomy History of appendectomy History of bilateral cataract extraction History of bilateral tubal ligation History of bronchoscopy History of cardiac cath x2 both @ [facility]--2000 with 1 stent--no stent, instead fem-pop bypass History of carotid endarterectomy 2009 on right side History of colonoscopy with polypectomy History of dilatation and curettage x3 History of endoscopic sinus surgery History of esophagogastroduodenoscopy (EGD) History of heart artery stent x1 before 2000? @ [facility] History of repair of right rotator cuff x2 History of tooth extraction most teeth Status post femoral-popliteal bypass surgery 2004 Status post femoropopliteal bypass surgery 11/06/[address] Jara---thrombectomy/Femoral-femoral bypass Family History Sister Family history of diabetes mellitus Family history of esophageal cancer Family hx of colon cancer Sister Family history of diabetes mellitus Sister Family history of diabetes mellitus Sister Family history of diabetes mellitus Sister Family history of diabetes mellitus Sister Family history of diabetes mellitus Sister Family history of diabetes mellitus Brother Family history of diabetes mellitus Brother Family history of diabetes mellitus Brother Family history of diabetes mellitus Other Diabetes No family history of adverse response to anesthesia Stroke Social History Smoking Status: Unknown if ever smoked Tobacco Type: Cigarettes Cigarettes Per Day: 20-40; Second Hand Exposure: Yes; Do You Dip or Chew Tobacco: No; Hx Alcohol Use: No Hx Substance Use: No Preferred Language: Welsh Communication Ability: Effective Can Line Examiner Required: No Beliefs That Will Affect Care: None Current Living Situation: Family Current Living Situation Comment: Lives with daughter Feels Safe at Home: No Is there a partner from a previous relationship who is making you feel unsafe now?: No Any Concerns about Your Family Situation: No Would You Like to Speak to Someone About Your Situation: No Assistive Devices: Bedside Commode, Oxygen - Continuous, Stair Lift and Walker Review of Systems Review of Systems: As per HPI, all other systems reviewed and negative Physical Exam Physical Exam: GENERAL: Slightly uncomfortable, obese, dysarthric (chronic), no respiratory distress SKIN: Pallor, warm HEENT: Pale palpebral conjunctivae, no ptosis, chronic facial asymmetry, dry buccal mucosa, nasal cannula in place NECK : Supple, no tenderness CHEST : Decreased breath sounds, no tenderness HEART : RRR, systolic murmur ABDOMEN: Some distention, nontender BACK : Sacral tenderness EXTREMITIES : Minimal LE swelling, no LE tenderness, no other conspicuous deformities noted NEUROLOGIC : Coherent, chronic facial asymmetry, chronic dysarthria, gait and stance not assessed Results & Data Results & Data Vital Signs (Past 12 Hours) Vital Signs Pulse Resp BP BP Pulse Ox O2 Del Method O2 Flow Rate 01/05/23 00:00 18 98 Nasal Cannula 2 01/04/23 23:30 63 16 107/77 94 Nasal Cannula 2 01/04/23 23:01 64 22 100 Nasal Cannula 2 01/04/23 22:31 68 22 83/68 L 98 Nasal Cannula 2 01/04/23 22:30 69 22 97 Nasal Cannula 2 01/04/23 22:07 70 21 104/45 L 93 Nasal Cannula 2 01/04/23 22:01 68 25 H 01/04/23 22:00 68 24 01/04/23 21:32 68 26 H 98/28 L 01/04/23 21:30 68 27 H 01/04/23 21:11 68 16 116/58 L 01/04/23 21:06 59 L 21 77/55 L 92 Nasal Cannula 2 01/04/23 22:00 Nasal Cannula 2 01/04/23 22:39 67 01/04/23 20:00 95 Nasal Cannula 2 01/04/23 20:30 64 23 114/61 95 Nasal Cannula 2 01/04/23 20:25 64 20 118/58 L 94 Nasal Cannula 2 01/04/23 20:22 65 19 92/55 L 01/04/23 20:06 63 17 01/04/23 20:01 62 19 81/59 L 96 Nasal Cannula 2 01/04/23 20:00 63 20 82/65 L 96 Nasal Cannula 2 01/04/23 19:47 62 21 82/58 L 99 Nasal Cannula 2 01/04/23 19:44 63 17 01/04/23 19:43 62 18 01/04/23 19:00 63 17 119/48 L 94 Nasal Cannula 2 01/04/23 18:53 63 14 01/04/23 18:38 65 16 130/56 L 95 Nasal Cannula 2 01/04/23 20:01 96 Nasal Cannula 2 01/04/23 18:37 64 01/04/23 18:24 70/54 L 01/04/23 18:18 62 16 92/52 L 97 Nasal Cannula 2 Laboratory Results Laboratory Results WBC 13.38 K/ul (4.8-10.8) H 01/04/23 19:00 RBC 3.59 M/uL (4.20-5.40) L 01/04/23 19:00 Hgb 9.3 g/dl (12.0-16.0) L 01/04/23 19:00 Hct 30.9 % (37.0-47.0) L 01/04/23 19:00 MCV 86.1 fL (80.0-100.0) 01/04/23 19:00 MCH 25.9 pg (25.0-34.0) 01/04/23 19: MCHC 30.1 g/dL (32.0-36.0) L 01/04/23 19:00 RDW Std Deviation 51.1 fL (36.4-46.3) H 01/04/23 19:00 RDW Coeff of Shahrzad 16.5 % (11.5-14.5) H 01/04/23 19:00 Plt Count 419 K/uL (130-400) H 01/04/23 19:00 MPV 10.9 fL (9.4-12.4) 01/04/23 19:00 Immature Gran % (Auto) 1.0 % 01/04/23 19:00 Neut % (Auto) 81.0 % 01/04/23 19:00 Lymph % (Auto) 8.5 % 01/04/23 19:00 [place] % (Auto) 8.9 % 01/04/23 19:00 Eos % (Auto) 0.2 % 01/04/23 19:00 Baso % (Auto) 0.4 % 01/04/23 19:00 Neut # (Auto) 10.84 K/uL (1.40-6.50) H 01/04/23 19:00 Lymph # (Auto) 1.14 K/uL (1.20-3.40) L 01/04/23 19:00 [place] # (Auto) 1.19 K/uL (0.11-0.59) H 01/04/23 19:00 Eos # (Auto) 0.03 K/uL (0.00-0.50) 01/04/23 19:00 Baso # (Auto) 0.05 K/uL (0.00-0.20) 01/04/23 19:00 Immature Gran # (Auto) 0.13 K/uL (0.01-0.20) 01/04/23 19:00 Absolute Nucleated RBC 0.46 K/uL (0.00-0.12) H 01/04/23 19:00 Nucleated RBC % (auto) 3.4 % 01/04/23 19:00 Polychromasia 1+ 01/04/23 19:00 Anisocytosis Present 01/04/23 19:00 Sodium 131 mmol/L (136-145) L 01/04/23 19:00 Potassium 5.7 mmol/L (3.5-5.1) H 01/04/23 19:00 Chloride 99 mmol/L (98-107) 01/04/23 19:00 Carbon Dioxide 27 mmol/L (21-32) 01/04/23 19:00 Anion Gap 5 (3-11) 01/04/23 19:00 BUN 28 mg/dl (6-23) H 01/04/23 19:00 Creatinine 0.97 mg/dl (0.6-1.2) 01/04/23 19:00 Est Cr Clr Drug Dosing Not Reportable 01/04/23 19:00 Est GFR ( Amer) 67.2 ml/min 01/04/23 19:00 Est GFR (Non-Af Amer) 57.9 ml/min 01/04/23 19:00 BUN/Creatinine Ratio 28.9 (10-20) H 01/04/23 19:00 Glucose 141 mg/dl (70-99(Fasting)) H 01/04/23 19:00 POC Glucose 162 mg/dl (70-99) H 01/04/23 22:57 Lactate 3.8 mmol/L (0.4-2.0) H* 01/04/23 23:25 Calcium 10.4 mg/dl (8.6-10.3) H 01/04/23 19:00 Magnesium 1.6 mg/dl (1.7-2.4) L 01/04/23 19:00 Total Bilirubin 1.2 mg/dl (0.2-1.0) H 01/04/23 19:00 AST 605 U/L (13-39) H 01/04/23 19:00 ALT 458 U/L (7-52) H 01/04/23 19:00 Alkaline Phosphatase 527 U/L (34-104) H 01/04/23 19:00 Troponin I High Sens 15.8 pg/ml (0-14) H 01/04/23 19:00 B-Natriuretic Peptide 580 pg/ml (0-100) H 01/04/23 19:00 Total Protein 7.3 gm/dl (6.0-8.3) 01/04/23 19:00 Albumin 3.6 gm/dl (3.4-5.0) 01/04/23 19:00 Globulin 3.7 gm/dl (2.5-4.0) 01/04/23 19:00 Albumin/Globulin Ratio 1.0 (0.9-2) 01/04/23 19:00 Lipase 9 U/L (11-82) L 01/04/23 19:00 Procalcitonin 0.18 ng/ml (0-0.5) 01/04/23 20:27 Urine Color Dark Yellow 01/04/23 21:35 Urine Appearance Clear (Clear) 01/04/23 21:35 Urine pH 5.5 (4.5-7.5) 01/04/23 21:35 Ur Specific [place] 1.018 (1.000-1.030) 01/04/23 21:35 Urine Protein Negative (Negative) 01/04/23 21:35 Urine Glucose (UA) Negative (Negative) 01/04/23 21:35 Urine Ketones Negative (Negative) 01/04/23 21:35 Urine Blood Negative (Negative) 01/04/23 21:35 Urine Nitrite Negative (Negative) 01/04/23 21:35 Urine Bilirubin Negative (Negative) 01/04/23 21:35 Urine Urobilinogen Negative (Negative) 01/04/23 21:35 Ur Leukocyte Esterase 1+ (Negative) H 01/04/23 21:35 Urine WBC (Auto) 1-5 /hpf (0-5) 01/04/23 21:35 Urine RBC (Auto) 0-4 /hpf (0-4) 01/04/23 21:35 U Hyaline Cast (Auto) >30 /lpf (0-5) H 01/04/23 21:35 U Epithel Cells (Auto) >30 /lpf (0-5) H 01/04/23 21:35 Urine Bacteria (Auto) Negative (Negative) 01/04/23 21:35 Ur Renal Epithelial Cell Not Reportable 01/04/23 21:35 Impressions Chest X-Ray 01/04/23 18:26 XR chest 1V portable HISTORY: 72 years-old Female back pain acute chest and low back pain status p ost fall COMPARISON: 12/22/2022 TECHNIQUE: AP view of the chest FINDINGS: Cardiac silhouette is enlarged. Status post removal of the right-sided PICC. Trace pleural effusions. Pulmonary emphysema. Mildly improved pulmonary edema. A pneumothorax. Atherosclerosis of the aorta. Degenerative changes of the shoulders and spine. IMPRESSION: 1. Cardiomegaly with mildly improved pulmonary edema. 2. Trace pleural effusions. 3. Emphysema. 4. Status post removal of the right-sided PICC. ACT 112: Negative or not required by law. The above report was generated using voice recognition software. It may contain grammatical, syntax or spelling errors. Electronically signed by: Nilay Figueredo M.D. 01/04/2023 6:[address] 01/04/23 18:45 Exam(s): CT L SPINE EXAM: CT Lumbar Spine Without Intravenous Contrast CLINICAL HISTORY: Reason for exam: low back pain s/p fall. TECHNIQUE: Axial computed tomography images of the lumbar spine without intravenous contrast. CTDI is 39.4 mGy and DLP is 1873.66 mGy-cm. Automated exposure control was utilized for the study. A dose lowering technique was utilized adhering to the principles of ALARA. COMPARISON: No relevant prior studies available. FINDINGS: Vertebrae: Mild multilevel degenerative disc disease and facet arthrosis is seen throughout the mid to lower lumbar spine. No acute fracture or subluxation is seen. There is diffuse osteopenia. The lumbar spine vertebral body heights are normally maintained. No compression fracture or burst fracture is seen. Discs/spinal canal/neural foramina: See above. Soft tissues: Paraspinous soft tissues are within normal limits. Vasculature: Severe calcification of the common iliac arteries bilaterally. There is an arterial stent in the superior mesenteric artery. There is moderate calcification of a nondilated abdominal aorta. IMPRESSION: 1. Mild multilevel degenerative disc disease and facet arthrosis is seen throughout the mid to lower lumbar spine. No acute fracture or subluxation is seen. 2. The lumbar spine vertebral body heights are normally maintained. No compression fracture or burst fracture is seen. Electronically signed by: Heladio Sigala MD 01/04/23 20:[address] 01/04/23 18:45 Exam(s): CT PELVIS Without Contrast EXAM: CT Pelvis Without Intravenous Contrast CLINICAL HISTORY: Reason for exam: sacral pain s/p fall. TECHNIQUE: Axial computed tomography images of the pelvis without intravenous contrast. CTDI is 39.4 mGy and DLP is 1873.66 mGy-cm. Automated exposure control was utilized for the study. A dose lowering technique was utilized adhering to the principles of ALARA. COMPARISON: No relevant prior studies available. FINDINGS: Bowel: Unremarkable. No obstruction. No mucosal thickening. Appendix: The appendix is normal. Bowel loops are nondilated. No acute inflammatory changes are seen involving the bowel. Intraperitoneal space: There is a small amount of free fluid in the inferior aspect of the paracolic gutters. This is nonspecific. No free air. Bladder: Unremarkable. No stones. Reproductive: The uterus has been removed. Bones/joints: There is a fracture of the sacrococcygeal junction, essentially nondisplaced. Mild osteoarthritic changes of both hips. No hip fracture or dislocation is identified. Previous femorofemoral bypass graft. Soft tissues: Unremarkable. Vasculature: Moderate to severe diffuse arterial calcification is present. Lymph nodes: Unremarkable. No enlarged lymph nodes. IMPRESSION: 1. There is a fracture of the sacrococcygeal junction, essentially nondisplaced. 2. There is a small amount of free fluid in the inferior aspect of the paracolic gutters. This is nonspecific. 3. Mild osteoarthritic changes of both hips. No hip fracture or dislocation is identified. 4. The appendix is normal. Bowel loops are nondilated. No acute inflammatory changes are seen involving the bowel. Electronically signed by: Heladio Sigala MD 01/04/23 20:21 PM Abdomen/Pelvis CT 01/04/23 19:55 Exam(s): CT ABDOMEN + PELVIS With Contrast IV Amt: 90 ml opti 320 EXAM: CT Abdomen and Pelvis With Intravenous Contrast CLINICAL HISTORY: Reason for exam: transaminitis. TECHNIQUE: Axial computed tomography images of the abdomen and pelvis with intravenous contrast. CTDI is 25.95 mGy and DLP is 1253.29 mGy-cm. Automated exposure control was utilized for the study. A dose lowering technique was utilized adhering to the principles of ALARA. CONTRAST: Patient received 90 ml Opti 320 of IV contrast COMPARISON: CT pelvis from January 04, 2023 FINDINGS: Lung bases: See below. Pleural space: There are trace bilateral pleural effusions and moderate cardiomegaly. Consider mild CHF. ABDOMEN: Liver: Unremarkable. No mass. Gallbladder and bile ducts: Unremarkable. No calcified stones. No ductal dilation. Pancreas: Unremarkable. No mass. No ductal dilation. Spleen: Unremarkable. No splenomegaly. Adrenals: Unremarkable. No mass. Kidneys and ureters: Unremarkable. No solid mass. No hydronephrosis. Stomach and bowel: Unremarkable. No obstruction. No mucosal thickening. PELVIS: Appendix: The appendix is normal. Bowel loops are nondilated. No acute inflammatory changes are seen involving the bowel. Bladder: Unremarkable. No mass. Reproductive: Unremarkable as visualized. ABDOMEN and PELVIS: Intraperitoneal space: The liver is mildly fatty infiltrated. The size is within normal limits measuring 16.7 cm. There is a small amount of free fluid in the upper abdomen surrounding the liver and spleen. No free air. Bones/joints: Mild degenerative changes throughout the spine. Probable nondisplaced fracture of the sacrococcygeal junction. Soft tissues: Unremarkable. Vasculature: There is a patent femorofemoral bypass graft in the anterior pelvis. 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 The abdominal aorta is severely calcified. There is a patent stent in the superior mesenteric artery. No abdominal aortic aneurysm. Lymph nodes: Unremarkable. No enlarged lymph nodes. IMPRESSION: 1. There are trace bilateral pleural effusions and moderate cardiomegaly. There is a small amount of free fluid within the abdomen and pelvis as well as diffuse anasarca over the torso. Consider mild CHF. 2. The appendix is normal. Bowel loops are nondilated. No acute inflammatory changes are seen involving the bowel. No acute process is seen within the abdomen or pelvis. 3. Probable nondisplaced fracture at the sacrococcygeal junction. Electronically signed by: Heladio Sigala MD 01/04/23 21:[address] 01/04/23 20:46 Exam(s): CT HEAD Without Contrast EXAM: CT Head Without Intravenous Contrast CLINICAL HISTORY: Reason for exam: confusion. TECHNIQUE: Axial computed tomography images of the head/brain without intravenous contrast. CTDI is 36.79 mGy and DLP is 702.46 mGy-cm. Automated exposure control was utilized for the study. A dose lowering technique was utilized adhering to the principles of ALARA. COMPARISON: July 02, 2008 FINDINGS: Brain: There is an approximately 7 x 4 x 4.4 cm area of encephalomalacia and surrounding gliosis in the right frontal temporal region consistent with old infarct. There is mild periventricular white matter low density consistent with chronic small vessel disease in the brain is otherwise unremarkable. No acute large vessel infarct or intracranial hemorrhage is seen. Ventricles: Unremarkable. No ventriculomegaly. Bones/joints: Unremarkable. No acute fracture. Soft tissues: Unremarkable. Sinuses: Trace amount of chronic appearing mucosal thickening in the left maxillary sinus. Mastoid air cells: Unremarkable as visualized. No mastoid effusion. IMPRESSION: There is an approximately 7 x 4 x 4.4 cm area of encephalomalacia and surrounding gliosis in the right frontal temporal region consistent with old infarct. There is mild periventricular white matter low density consistent with chronic small vessel disease in the brain is otherwise unremarkable. No acute large vessel infarct or intracranial hemorrhage is seen. Electronically signed by: Heladio Sigala MD 01/04/23 21:09 PM Diagnostic Findings EKG as per my interpretation : Rate 60, NSR, normal axis, T wave abnormalities lateral leads
[2023-01-05] MEDS ORDERED: oxyCODONE HCL IR 5 MG TAB (IMMEDIATE RELEASE) PO STA (01:58)
[2023-01-05] MEDS ORDERED: ACETAMINOPHEN 500 MG TAB PO PRN (02:05)
[2023-01-05] MEDS ORDERED: PROMETHAZINE HCL 6.25 MG in SODIUM CHLORIDE 0.9% 50 ML IV PRN (02:05)
[2023-01-05] MEDS ORDERED: MAGNESIUM SULFATE / D5W 1 GM/100 ML BAG IV ONE (02:07)
[2023-01-05] MEDS: LIDOCAINE 5% 1 PATCH TD SCH (02:42)
[2023-01-05 04:09] LABS: Basophils # (auto) 0.03 K/uL (0.00-0.20); Basophils % (auto) 0.2 %; Eosinophils # (auto) 0.03 K/uL (0.00-0.50); Eosinophils % (auto) 0.2 %; Hematocrit (blood only) 28.5 % (37.0-47.0); Hemoglobin 8.5 g/dl (12.0-16.0); Immature Granulocytes # (auto) 0.16 K/uL (0.01-0.20); Immature Granulocytes % (auto) 1.3 %; Lymphocytes # (auto) 0.98 K/uL (1.20-3.40); Lymphocytes % (auto) 7.7 %; Mean Corpuscular Hemoglobin 25.8 pg (25.0-34.0); Mean Corpuscular Hgb Conc 29.8 g/dL (32.0-36.0); Mean Corpuscular Volume 86.6 fL (80.0-100.0); Mean Platelet Volume 11.1 fL (9.4-12.4); Monocytes # (auto) 1.29 K/uL (0.11-0.59); Monocytes % (auto) 10.2 %; Neutrophils % (auto) 80.4 %; Nucleated RBC # (auto) 0.44 K/uL (0.00-0.12); Nucleated RBC % (auto) 3.5 %; Platelet Count 371 K/uL (130-400); RDW Coefficient of Variation 16.7 % (11.5-14.5); RDW Standard Deviation 53.1 fL (36.4-46.3); Red Blood Count 3.29 M/uL (4.20-5.40); White Blood Count 12.69 K/ul (4.8-10.8)
[2023-01-05 04:28] LABS: Alanine Aminotransferase 383 U/L (7-52); Albumin Globulin Ratio 1.2 (0.9-2); Albumin Level 3.6 gm/dl (3.4-5.0); Alkaline Phosphatase 423 U/L (34-104); Anion Gap 9 (3-11); Aspartate Aminotransferase 472 U/L (13-39); BUN Creatinine Ratio 27.7 (10-20); Bilirubin,Total 1.2 mg/dl (0.2-1.0); Blood Urea Nitrogen 28 mg/dl (6-23); Calcium 9.6 mg/dl (8.6-10.3); Carbon Dioxide 22 mmol/L (21-32); Chloride 100 mmol/L (98-107); Est GFR (Non-African American) 55.2 ml/min; Globulin 3.1 gm/dl (2.5-4.0); Glucose 140 mg/dl (70-99(Fasting)); Magnesium 2.4 mg/dl (1.7-2.4); Potassium 5.5 mmol/L (3.5-5.1); Sodium 131 mmol/L (136-145); Total Protein 6.7 gm/dl (6.0-8.3)
[2023-01-05 04:32] LABS: Troponin I High Sensitivity 17.8 pg/ml (0-14)
[2023-01-05 04:35] LABS: Echinocytes 1+; Hypochromasia Present; Polychromasia 1+
[2023-01-05] MEDS ORDERED: INSULIN HUMAN REGULAR PER UNIT 5 UNITS in SYRINGE 0 ML IV STA ×2 (06:24→19:37)
[2023-01-05] MEDS ORDERED: DEXTROSE 50% 50 ML SYRINGE IV ONE (06:28)
[2023-01-05] MEDS ORDERED: NovoLIN-R INSULIN PER UNIT CHARGE IV STA (06:29)
[2023-01-05] MEDS ORDERED: CARBOHYDRATES FOR HYPOGLYCEMIA PO PRN (06:57)
[2023-01-05] MEDS ORDERED: GLUCAGON FOR INJ 1 MG VIAL SQ PRN (06:57)
[2023-01-05] MEDS ORDERED: GLUCOSE 10 TAB/TUBE PO PRN (06:57)
[2023-01-05] MEDS ORDERED: GLUCOSE 40% GEL 15 GM TUBE PO PRN (06:57)
[2023-01-05] MEDS ORDERED: DEXTROSE 50% 50 ML SYRINGE IV PRN (06:57)
[2023-01-05] MEDS: NICOTINE 14 MG/24 HR PATCH TD SCH ×2 (08:48→08:56)
[2023-01-05] MEDS: DULoxetine HCL 30 MG CAP PO SCH ×2 (08:49→21:20)
[2023-01-05] MEDS: ASPIRIN 81 MG ECTAB PO SCH (08:49)
[2023-01-05] MEDS: PANTOprazole 40 MG TAB PO SCH (08:49)
[2023-01-05] MEDS: busPIRone 15 MG TAB PO SCH ×2 (08:51→21:21)
[2023-01-05] MEDS: SUCRALFATE 1 GM TAB PO SCH ×4 (08:53→21:21)
[2023-01-05] MEDS: LORATADINE 10 MG TAB PO SCH (08:54)
[2023-01-05] MEDS: CLOPIDOGREL BISULFATE 75 MG TAB PO SCH (08:54)
[2023-01-05] MEDS ORDERED: METOPROLOL SUCC 25MG EXT REL TAB PO SCH (09:00)
[2023-01-05] MEDS: SODIUM CHLOR 7% 4 ML NEB INH SCH ×2 (09:01→19:55)
[2023-01-05] MEDS: Patient's HEIGHT &/or WEIGHT Needed SCH ×3 (09:02→18:47)
[2023-01-05] MEDS: INSULIN ASPART PER UNIT CHARGE SC SCH ×4 (09:26→20:06)
[2023-01-05] MEDS: ADVANCED PROBIOTIC 1250 MG CAPSULE PO SCH (10:17)
--- NOTE | 2023-01-05 11:17 | Cardiology Consultation ---
Date of Consultation January 05, 2023 Assessment & Plan (1) Back pain: (2) Stress fracture of sacrococcygeal region: (3) Leukocytosis: (4) Transaminitis: (5) Tobacco use disorder, continuous: (6) Elevated troponin: (7) Severe mitral regurgitation: No overt evidence of acute decompensated heart failure by examination Plan Hold Lasix today, considering need on a daily basis Discontinue potassium chloride and hold spironolactone due to observed hyper kalemia Continue dual antiplatelet therapy uninterrupted with the recent drug-eluting stent implantation to the left main coronary artery Continue metoprolol succinate 25 mg/day Continue moderate intensity statin therapy with atorvastatin 40 mg/day Tobacco cessation mandated. Supervising Physician Co-Signing Physician Notes Supervising Physician Attestation: I have personally performed a history and physical examination on the patient. I agree with the physician hotel assistant manager's findings and plan as documented with the following additions. Subjective: Patient describes having had a mechanical fall while transitioning off of bathroom scale. Denies any recent difficulty with her breathing. Exam: Cardiovascular: Regular rhythm, 1/6 systolic murmur, no edema Data: EKG performed 01/04/2023 reveals sinus rhythm at 63 bpm with diffuse T wave flattening. Relatively unchanged compared to 12/13/2022 Assessment and Plan: Well compensated chronic heart failure Mechanical fall CAD PAD Hyperkalemia, potassium 5.5 on repeat this afternoon Continue chronic dual antiplatelet therapy metoprolol. Hold spironolactone given hyperkalemia DVT prophylaxis: Subcu Lovenox Nnamdi Martell, History of Present Illness Reason for Consultation: CHF Requesting Physician: Dr. Perez Attending Physician: Dr. Perez History of Present Illness History of Present Illness: Patient unable to provide any meaningful information, repeatedly stating "I'm doing fine" when asked any question. Chart reviewed. H&P pending. ER notes reviewed along with the [facility] EMR. Patient presented due to low back pain following another fall, imaging revealing a nondisplaced fracture of the sacrococcygeal junction. Patient received 1 L normal saline and 50 mcg of IV fentanyl for pain control, 2 g IV Rocephin empirically for leukocytosis, sepsis concern EKG on presentation revealed sinus with low atrial focus, low voltage QRS, nonspecific ST abnormality. Admission CXR with cardiomegaly with mildly improved pulmonary edema, trace pleural effusions, emphysema. Patient laying completely supine in the ER, Room B05. Problem List: ASCVD status post ME Ostial LAD lesion, status post PCI of the left mainLAD, receiving a 3.0 x 15 mm Fenwick stent on November 12, 2022 Chronic total occlusion of the RCA Mildly diseased left circumflex and obtuse marginal branches. Severe mitral regurgitation Diastolic congestive heart failure, HFpEF Hypertension Dyslipidemia Type 2 diabetes mellitus with retinopathy, neuropathy, and nephropathy, CKD Severe peripheral vascular disease followed by [facility] [place] Vascular Surgery Cerebrovascular disease, CVA in 05/2008, with hemorrhagic conversion, residual left hemiparesis Carotid artery stenosis status post intervention Left axillary artery occlusion Celiac artery stenosis Mesenteric ischemia Status post left to right Fem-Fem bypass in 2004 with multiple subsequent interventions including thrombectomy and patch angipalst of the distal anastamossi for ischemic right leg. Suprapubic abscess surrounding R>L PTFE Fem-Fem bypass and partial amputation of the right 3rd toe due to gangrene on 11/04/2022, course complicated by COVID infection and cardiac arrest Status post Emphysema/COPD Tobacco use Depression Generalized anxiety disorder Admission to [facility] in December 2022 with pneumonia and CHF GERD Pendleton's esophagus History of GI bleeding Iron deficiency anemia Osteoarthritis Osteoporosis Social History: + Ongoing tobacco abuse. Allergies Allergy/AdvReac Type Severity Reaction Status Date / Time methadone Allergy Severe "couldn't Verified 12/13/22 16:53 swallow/eyes coming out of head" nickel Allergy Severe swelling Verified 12/13/22 16:53 and infections nitroglycerin Allergy Intermediate DECREASED Verified 12/13/22 16:53 BP propoxyphene Allergy Intermediate edema to Verified 12/13/22 16:53 face/lips/tongue diclofenac Allergy Mild Rash Verified 12/13/22 16:53 hydrocodone Allergy Mild "severe Verified 12/13/22 16:53 constipation" levofloxacin [From Levaquin] Allergy Mild nausea/vomi Verified 12/13/22 16:53 ting Penicillins Allergy Mild severe Verified 12/13/22 16:53 diarrhea/rash sitagliptin [From Januvia] Allergy Mild rash Verified 03/21/19 18:20 "blood blisters" strawberry Allergy Mild Diarrhea Verified 03/21/19 18:20 Home Medications Medication Instructions Recorded Confirmed Type aspirin 81 mg tablet,delayed 81 mg PO QAM 11/06/18 01/04/23 History release atorvastatin 40 mg tablet 40 mg PO QPM 11/06/18 01/04/23 History buspirone 15 mg tablet 15 mg PO BID 11/06/18 01/04/23 History clopidogrel 75 mg tablet 75 mg PO QAM 11/06/18 01/04/23 History glipizide 10 mg tablet 10 mg PO QAM 11/06/18 01/04/23 History loratadine 10 mg tablet 10 mg PO QAM 11/06/18 01/04/23 History albuterol sulfate 90 mcg/actuation 2 puff inhalation Q4 PRN Shortness 11/16/18 01/04/23 History aerosol inhaler (Ventolin HFA) Of Breath dicyclomine 10 mg capsule 10 mg PO TID PRN Abdominal Pain 01/11/19 01/04/23 History calcium carbonate 600 mg calcium 600 mg PO BID 03/21/19 01/04/23 History (1,500 mg) tablet (Calcium) cholecalciferol (vitamin D3) 125 5,000 unit PO BID 03/21/19 01/04/23 History mcg (5,000 unit) tablet ondansetron 4 mg disintegrating 4 mg PO Q8H PRN Nausea 03/21/19 01/04/23 History tablet pantoprazole 40 mg tablet,delayed 40 mg PO DAILY 03/21/19 01/04/23 History release sucralfate 1 gram tablet (Carafate) 1 g PO ACHS 03/21/19 01/04/23 History oxycodone 5 mg tablet 5 mg PO Q6H PRN pain #14 tabs 10/25/19 01/04/23 Rx Bifidobacterium infantis 4 mg 4 mg PO DAILY 12/13/22 01/04/23 History capsule (Align) ascorbic acid (vitamin C) 500 mg 500 mg PO DAILY 12/13/22 01/04/23 History tablet (Vitamin C) docusate sodium 50 mg capsule 50 mg PO HS 12/13/22 01/04/23 History duloxetine 30 mg capsule,delayed 30 mg PO AMHS 12/13/22 01/04/23 History release fluticasone fur. 100 mcg-umeclid 1 inh inhalation DAILY 12/13/22 01/04/23 History 62.5 mcg-vilant 25 mcg inhalat.powder (Trelegy Ellipta) glipizide 10 mg tablet 5 mg PO QPM 12/13/22 01/04/23 History ipratropium 0.5 mg-albuterol 3 mg 3 ml inhalation Q4 PRN Shortness 12/13/22 01/04/23 History (2.5 mg base)/3 mL nebulization Of Breath Or Wheezing soln lidocaine 4 % topical patch 1 patch topical DAILY PRN Pain 12/13/22 01/04/23 History menthol 0.44 %-zinc oxide 20.6 % 1 applic topical DIRECTED PRN 12/13/22 01/04/23 History topical ointment (Calmoseptine) Sores on bottom nicotine 14 mg/24 hr daily 1 patch transdermal .DAILY 12/13/22 01/04/23 History transdermal patch DIRECTED nystatin 100,000 unit/gram topical 1 applic topical TID 12/13/22 01/04/23 Histo ry powder (Nyamyc) potassium chloride 20 mEq 20 meq PO .DAILY UD 12/13/22 01/04/23 History tablet,extended release(part/cryst) zinc 50 mg tablet 50 mg PO DAILY 12/13/22 01/04/23 History cyclobenzaprine 5 mg tablet 5 mg PO BID PRN muscle spasm #14 12/22/22 01/04/23 Rx tabs furosemide 20 mg tablet 20 mg PO QAM #30 tabs 12/22/22 01/04/23 Rx metoprolol succinate 25 mg 25 mg PO QAM 30 days #30 tabs 12/22/22 01/04/23 Rx tablet,extended release 24 hr spironolactone 25 mg tablet 12.5 mg PO DAILY 30 days #15 tabs 12/22/22 01/04/23 Rx nicotine 7 mg/24 hr daily 14 mg transdermal QAM #7 ea 12/24/22 01/04/23 Rx transdermal patch sodium chloride 7 % for 4 ml inhalation BID 01/04/23 01/04/23 History nebulization Patient History Medical History (Updated 01/05/23 @ 12:37 by Patricio Araujo MD) Anemia Anxiety Pendleton esophagus COPD (chronic obstructive pulmonary disease) inhaler prn Coronary artery disease, occlusive Critical limb ischemia with history of revascularization of same extremity RLE CVA (cerebral vascular accident) 2008--slight left side weakness (no assistive devices)--follows with Dr. 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 not have a manager hospitality Obesity (BMI 30.0-34.9) On anticoagulant therapy plavix daily Osteoarthritis PVD (peripheral vascular disease) Right upper lobe pulmonary nodule Surgical History H/O: hysterectomy History of appendectomy History of bilateral cataract extraction History of bilateral tubal ligation History of bronchoscopy History of cardiac cath x2 both @ [place]--2000 with 1 stent/2003--no stent, instead fem-pop bypass History of carotid endarterectomy 2010 on right side History of colonoscopy with polypectomy History of dilatation and curettage x3 History of endoscopic sinus surgery History of esophagogastroduodenoscopy (EGD) History of heart artery stent x1 before 2000? @ [place] History of repair of right rotator cuff x2 History of tooth extraction most teeth Status post femoral-popliteal bypass surgery 2004 Status post femoropopliteal bypass surgery 11/06/[address] Jara---thrombectomy/Femoral-femoral bypass Family History Sister Family history of diabetes mellitus Family history of esophageal cancer Family hx of colon cancer Sister Family history of diabetes mellitus Sister Family history of diabetes mellitus Sister Family history of diabetes mellitus Sister Family history of diabetes mellitus Sister Family history of diabetes mellitus Sister Family history of diabetes mellitus Brother Family history of diabetes mellitus Brother Family history of diabetes mellitus Brother Family history of diabetes mellitus Other Diabetes No family history of adverse response to anesthesia Stroke Social History Smoking Status: Unknown if ever smoked Tobacco Type: Cigarettes Cigarettes Per Day: 20-40; Second Hand Exposure: Yes; Do You Dip or Chew Tobacco: No; Hx Alcohol Use: No Hx Substance Use: No Preferred Language: Belarusian Communication Ability: Effective Lens Assistant Required: No Beliefs That Will Affect Care: None Current Living Situation: Family Current Living Situation Comment: Lives with daughter Feels Safe at Home: No Is there a partner from a previous relationship who is making you feel unsafe now?: No Any Concerns about Your Family Situation: No Would You Like to Speak to Someone About Your Situation: No Assistive Devices: Bedside Commode, Oxygen - Continuous, Stair Lift and Walker Review of Systems Review of Systems: A complete and accurate review of systems was unable to be obtained due to the patient's condition. Physical Exam Physical Exam: General: Alert to person and place. Lethargic. HENT: Normocephalic. Atraumatic. Eyes: PER. Conjunctiva pink, sclera pale. Neck: Bilateral carotid bruits. No JVD. No HJR. Heart: Regular at 66 bpm. Systolic murmur. No diastolic murmur. Lungs: Clear to auscultation anteriorly and laterally. Abdomen: +BS. + Bruits. Soft. Nontender. Extremities: No peripheral edema. Limited neurological examination is without focal deficits. Pulses: radial=2/4, posterior tibial=0/4. Results & Data Vital Signs (Past 12 Hours) Vital Signs Pulse Pulse Resp BP BP Pulse Ox Pulse Ox 01/05/23 09:02 67 18 94 01/05/23 08:31 99 01/05/23 08:19 67 20 123/42 L 97 01/05/23 07:00 75 21 125/74 98 01/05/23 06:30 70 22 124/80 100 01/05/23 06:00 70 20 129/76 100 01/05/23 05:31 69 20 132/77 100 01/05/23 05:30 70 20 100 01/05/23 05:00 69 20 139/70 100 01/05/23 04:30 68 20 144/64 H 100 01/05/23 04:22 68 22 121/59 L 100 01/05/23 04:00 20 98 01/05/23 03:30 67 26 H 97/71 L 100 01/05/23 03:11 65 16 119/61 100 01/05/23 02:31 66 20 119/67 94 01/05/23 02:01 70 18 108/67 96 01/05/23 01:45 69 27 H 105/43 L 88 L 01/05/23 01:33 66 21 83/61 L 98 01/05/23 01:30 68 25 H 85/57 L 95 01/05/23 00:42 67 26 H 84/65 L 94 01/05/23 00:00 60 21 81/49 L 94 01/04/23 23:59 61 28 H 82/56 L 89 L 01/05/23 02:36 68 01/05/23 00:00 18 98 01/04/23 23:30 63 16 107/77 94 O2 Del Method O2 Del Method O2 Flow Rate O2 Flow Rate 01/05/23 09:02 Nasal Cannula 2 01/05/23 08:31 Room Air 2 01/05/23 08:19 Nasal Cannula 2 01/05/23 07:00 Nasal Cannula 2 01/05/23 06:30 Nasal Cannula 2 01/05/23 06:00 Nasal Cannula 2 01/05/23 05:31 Nasal Cannula 2 01/05/23 05:30 01/05/23 05:00 Nasal Cannula 2 01/05/23 04:30 Nasal Cannula 2 01/05/23 04:22 Nasal Cannula 2 01/05/23 04:00 Nasal Cannula 2 01/05/23 03:30 Nasal Cannula 2 01/05/23 03:11 Nasal Cannula 2 01/05/23 02:31 Nasal Cannula 2 01/05/23 02:01 Nasal Cannula 2 01/05/23 01:45 Room Air 01/05/23 01:33 Nasal Cannula 2 01/05/23 01:30 Nasal Cannula 2 01/05/23 00:42 Nasal Cannula 2 01/05/23 00:00 Nasal Cannula 2 01/04/23 23:59 01/05/23 02:36 01/05/23 00:00 Nasal Cannula 2 01/04/23 23:30 Nasal Cannula 2 Laboratory Results Cardiac Enzymes 01/04/23 01/04/23 01/05/23 Range/Units 19:00 19:00 03:55 AST 605 H 472 H (13-39) U/L Troponin I High Sens 15.8 H 17.8 H (0-14) pg/ml B-Natriuretic Peptide 580 H (0-100) pg/ml Coagulation 01/04/23 Range/Units 19:00 B-Natriuretic Peptide 580 H (0-100) pg/ml CBC 01/04/23 01/05/23 Range/Units 19:00 03:55 WBC 13.38 H 12.69 H (4.8-10.8) K/ul RBC 3.59 L 3.29 L (4.20-5.40) M/uL Hgb 9.3 L 8.5 L (12.0-16.0) g/dl Hct 30.9 L 28.5 L (37.0-47.0) % Plt Count 419 H 371 (130-400) K/uL Neut # (Auto) 10.84 H 10.20 H (1.40-6.50) K/uL Lymph # (Auto) 1.14 L 0.98 L (1.20-3.40) K/uL [place] # (Auto) 1.19 H 1.29 H (0.11-0.59) K/uL Eos # (Auto) 0.03 0.03 (0.00-0.50) K/uL Baso # (Auto) 0.05 0.03 (0.00-0.20) K/uL Comprehensive Metabolic Panel 01/04/23 01/05/23 01/05/23 Range/Units 19:00 03:55 10:13 Sodium 131 L 131 L (136-145) mmol/L Potassium 5.7 H 5.5 H 5.2 H (3.5-5.1) mmol/L Chloride 99 100 (98-107) mmol/L Carbon Dioxide 27 22 (21-32) mmol/L BUN 28 H 28 H (6-23) mg/dl Creatinine 0.97 1.01 (0.6-1.2) mg/dl Glucose 141 H 140 H (70-99(Fasting)) mg/dl Calcium 10.4 H 9.6 (8.6-10.3) mg/dl AST 605 H 472 H (13-39) U/L ALT 458 H 383 H (7-52) U/L Alkaline Phosphatase 527 H 423 H (34-104) U/L Total Protein 7.3 6.7 (6.0-8.3) gm/dl Albumin 3.6 3.6 (3.4-5.0) gm/dl Intake and Output 01/04/23 01/05/23 01/05/23 22:59 06:59 14:59 Intake Total 1050 / 1350 300 / 1350 Balance 1050 / 1350 300 / 1350 Intake: IV 1050 / 1350 300 / 1350 Albumin 25% 25 gm In 100 ml @ 200 / 200 50 mls/hr IV ONE ONE Rx#: [id number] Magnesium Sulfate / D5w 1 gm In 100 / 100 100 ml @ 50 mls/hr IV ONE ONE Rx#:[id number] Sodium Chloride 0.9% 1,000 ml @ 1000 / 1000 999 mls/hr IV .Q1H1M ONE Rx#: [id number] cefTRIAXone SODIUM 2,000 mg In 50 / 50 50 ml @ 100 mls/hr IV NOW STA Rx#:[id number] Other: Weight 76.5 kg Weight Measurement Method Built in [facility] Patient Weight 01/06/23 06:59 Weight 76.5 kg
[2023-01-05] MEDS ORDERED: bisacodyL 10 MG SUPP PR STA (11:30)
[2023-01-05 11:44] LABS: Allen Test Pos (Pos); Base Excess ABG -4.4 mEq/L (-9-1.8); HCO3 ABG 21 mmol/L (19-24); Oxygen Saturation ABG 98.1 % (90-95); PCO2 ABG 39 mmHg (35-46); PO2 ABG 102 mmHg (80-95); pH ABG 7.34 (7.35-7.45)
[2023-01-05] MEDS: ENOXAPARIN INJ 40 MG/0.4 ML SYR SQ SCH (13:52)
[2023-01-05] MEDS: POLYETHYLENE (MIRALAX) 17 GM PACK PO SCH (13:52)
[2023-01-05] MEDS: ALBUMIN 25% 25 GM/100 ML VIAL IV SCH ×2 (13:53→20:13)
[2023-01-05 15:27] LABS: BUN Creatinine Ratio 29.2 (10-20); Calcium 9.9 mg/dl (8.6-10.3); Creatinine Clr Calc Pharmacy 45.3 ml/min; Est GFR (African American) 60.3 ml/min; Magnesium 2.1 mg/dl (1.7-2.4); Phosphorus 3.3 mg/dl (2.5-4.9); Potassium 5.5 mmol/L (3.5-5.1)
[2023-01-05] MEDS: SODIUM CHLORIDE 0.9% 500 ML IV SCH (16:04)
--- NOTE | 2023-01-05 16:05 | Ultrasound Report ---
US liver CLINICAL HISTORY: elevated LFTs TECHNIQUE: Multiple real-time sonographic images of the right upper quadrant were obtained. Comparison: Comparison is made to CT abdomen pelvis and 01/07/2022 FINDINGS: Liver is mildly heterogeneous without navarro nodularity or steatosis. No focal mass lesions are seen. No intrahepatic ductal dilatation is seen. No gallstones. Gallbladder wall is mildly prominent me asuring up to 4 mm. Pericholecystic fluid is noted. Cordero's sign is equivocal as patient is in pain from other fracture. The common duct measures 0.4 cm in diameter at the level of the hepatic artery. The visualized portions of the pancreas appear normal. The right kidney shows normal echogenicity, cortical thickness and renal contour. The right kidney sh ows no evidence of hydronephrosis or mass. No ascites or free fluid is seen in Holcomb's pouch. IMPRESSION: 1. No sonographic abnormality of the liver. 2. Thickening of the gallbladder wall and pericholecystic edema which may be reactive in this patien t with ascites, less likely reflecting acute cholecystitis. Cordero's sign cannot be assessed as patie nt has external sources of pain. If there is clinical concern for acute cholecystitis, nuclear medici ne HIDA study can be performed. ACT 112: Negative or not required by law. Electronically signed by: Tong Camarillo M.D. 01/05/2023 4:03 PM
[2023-01-05 19:08] LABS: Hematocrit (blood only) 25.4 % (37.0-47.0); Hemoglobin 7.5 g/dl (12.0-16.0); Mean Corpuscular Hemoglobin 25.8 pg (25.0-34.0); Mean Corpuscular Hgb Conc 29.5 g/dL (32.0-36.0); Mean Corpuscular Volume 87.3 fL (80.0-100.0); Mean Platelet Volume 10.8 fL (9.4-12.4); Nucleated RBC # (auto) 0.37 K/uL (0.00-0.12); Nucleated RBC % (auto) 3.1 %; Platelet Count 329 K/uL (130-400); RDW Coefficient of Variation 17.1 % (11.5-14.5); RDW Standard Deviation 54.1 fL (36.4-46.3); Red Blood Count 2.91 M/uL (4.20-5.40); White Blood Count 11.96 K/ul (4.8-10.8)
[2023-01-05 19:25] LABS: Albumin Globulin Ratio 1.5 (0.9-2); Albumin Level 3.8 gm/dl (3.4-5.0); BUN Creatinine Ratio 26.3 (10-20); Bilirubin,Total 1.5 mg/dl (0.2-1.0); Calcium 9.4 mg/dl (8.6-10.3); Creatinine Clr Calc Pharmacy 40.7 ml/min; Est GFR (Non-African American) 45.7 ml/min; Globulin 2.6 gm/dl (2.5-4.0); Phosphorus 3.2 mg/dl (2.5-4.9); Potassium 5.7 mmol/L (3.5-5.1); Total Protein 6.4 gm/dl (6.0-8.3)
[2023-01-05] MEDS ORDERED: DEXTROSE 50% 50 ML SYRINGE IV STA (19:38)
[2023-01-05] MEDS ORDERED: INSULIN HUMAN REGULAR PER UNIT 5 UNITS in SYRINGE 4.95 ML IV STA (19:43)
[2023-01-05] MEDS: ALBUT/IPRATROP 3MG/0.5MG NEB 3 ML VIAL INH PRN (19:55)
[2023-01-05] MEDS: FLUTICASONE FUROATE 100MCG 14 PUFFS/INHALER INH SCH (20:06)
[2023-01-05] MEDS: UMECLIDINIUM/VILANTEROL 62.5/25MCG 7 PUFFS/INHALER INH SCH (20:06)
[2023-01-05] MEDS ORDERED: PIPER/TAZO 4.5g in D5W MINI-B 100 ML IV ONE (20:15)
[2023-01-05] MEDS: FLUCONAZOLE 100 MG TAB PO SCH (21:20)
[2023-01-05] MEDS: SODIUM ZIRCONIUM CYCLOSILICATE 10 GM PACKET PO SCH ×2 (21:28→21:33)
[2023-01-05] MEDS: DOCUSATE SODIUM SYRUP 100 MG/10 ML UDC PO SCH (21:37)
[2023-01-05] MEDS: MICONAZOLE NITRATE 2% VAG CR 45 GM TUBE PV SCH (21:39)
[2023-01-05] MEDS ORDERED: cefTRIAXone SODIUM 2,000 MG in DEXTROSE 5 % MINI-B 50 ML IV SCH (22:00)
[2023-01-05 22:01] LABS: Appearance Urine Clear (Clear); Bilirubin Urine 2+ (Negative); Blood Urine 3+ (Negative); Color Urine Yellow; Glucose Urine UA Negative (Negative); Ketones Urine 1+ (Negative); Leukocyte Esterase Urine Negative (Negative); Nitrite Urine Negative (Negative); Protein Urine 3+ (Negative); Specific Gravity Urine 1.015 (1.000-1.030); Urobilinogen Urine Positive (Negative); pH Urine 5.5 (4.5-7.5)
[2023-01-05 22:12] LABS: Bacteria Urine 3+ (Negative)
[2023-01-05 23:34] LABS: BUN Creatinine Ratio 24.1 (10-20); Calcium 9.3 mg/dl (8.6-10.3); Creatinine Clr Calc Pharmacy 33.1 ml/min; Est GFR (African American) 41.3 ml/min; Est GFR (Non-African American) 35.6 ml/min; Potassium 5.6 mmol/L (3.5-5.1)
[2023-01-06] MEDS ORDERED: INSULIN ASPART PER UNIT CHARGE SC SCH
[2023-01-06] MEDS ORDERED: SODIUM CHLORIDE 0.9% 500 ML IV SCH (01:00)
[2023-01-06] MEDS: SODIUM CHLORIDE 0.9% 500 ML IV SCH ×3 (01:05→22:10)
[2023-01-06] MEDS: PIPERACILLIN/TAZOBACTAM 4.5 GM in DEXTROSE 5% MINI-B 100 ML IV SCH ×3 (01:11→16:28)
[2023-01-06] MEDS ORDERED: STAT IV Infusion **Titration per Protocol STA (02:56)
[2023-01-06 03:43] LABS: Basophils # (auto) 0.03 K/uL (0.00-0.20); Basophils % (auto) 0.2 %; Eosinophils # (auto) 0.02 K/uL (0.00-0.50); Eosinophils % (auto) 0.2 %; Hematocrit (blood only) 27.2 % (37.0-47.0); Hemoglobin 8.1 g/dl (12.0-16.0); Immature Granulocytes # (auto) 0.13 K/uL (0.01-0.20); Lymphocytes # (auto) 1.23 K/uL (1.20-3.40); Lymphocytes % (auto) 9.4 %; Mean Corpuscular Hemoglobin 26.4 pg (25.0-34.0); Mean Corpuscular Hgb Conc 29.8 g/dL (32.0-36.0); Mean Corpuscular Volume 88.6 fL (80.0-100.0); Mean Platelet Volume 10.9 fL (9.4-12.4); Monocytes # (auto) 1.33 K/uL (0.11-0.59); Monocytes % (auto) 10.1 %; Neutrophils # (auto) 10.37 K/uL (1.40-6.50); Neutrophils % (auto) 79.1 %; Nucleated RBC # (auto) 0.63 K/uL (0.00-0.12); Nucleated RBC % (auto) 4.8 %; Platelet Count 356 K/uL (130-400); RDW Coefficient of Variation 17.4 % (11.5-14.5); RDW Standard Deviation 55.4 fL (36.4-46.3); Red Blood Count 3.07 M/uL (4.20-5.40); White Blood Count 13.11 K/ul (4.8-10.8)
[2023-01-06 03:59] LABS: Albumin Globulin Ratio 1.5 (0.9-2); Albumin Globulin Ratio 1.6 (0.9-2); Albumin Level 3.7 gm/dl (3.4-5.0); BUN Creatinine Ratio 20.3 (10-20); BUN Creatinine Ratio 21.4 (10-20); Bilirubin,Total 1.6 mg/dl (0.2-1.0); Calcium 8.5 mg/dl (8.6-10.3); Calcium 8.6 mg/dl (8.6-10.3); Creatinine Clr Calc Pharmacy 30.2 ml/min; Creatinine Clr Calc Pharmacy 30.4 ml/min; Est GFR (African American) 36.9 ml/min; Est GFR (African American) 37.2 ml/min; Est GFR (Non-African American) 31.9 ml/min; Est GFR (Non-African American) 32.1 ml/min; Globulin 2.3 gm/dl (2.5-4.0); Globulin 2.4 gm/dl (2.5-4.0); Magnesium 1.9 mg/dl (1.7-2.4); Phosphorus 3.5 mg/dl (2.5-4.9); Potassium 5.4 mmol/L (3.5-5.1); Potassium 5.6 mmol/L (3.5-5.1); Total Protein 6.1 gm/dl (6.0-8.3)
[2023-01-06] MEDS: NOREPINEPHRINE/D5W 4 MG/250 ML PLCT IV SCH (04:01)
[2023-01-06] MEDS: ALBUMIN 25% 25 GM/100 ML VIAL IV SCH (04:02)
[2023-01-06 04:05] LABS: Troponin I High Sensitivity 19.1 pg/ml (0-14)
[2023-01-06 04:14] LABS: Anisocytosis Present; Echinocytes 1+; Polychromasia 1+
--- NOTE | 2023-01-06 05:30 | Critical Care Consultation ---
Date of Consultation January 06, 2023 Assessment & Plan (1) Septic shock: Reason Critically Ill: 72-year-old female with extensive past medical history presents to the ICU with hypotension requiring vasopressor support secondary to septic shock Neuro - [facility] ICU: Positive Suspect encephalopathy likely due to sepsis/UTI. Patient did undergo CT head on admission which was negative for acute intracranial findings. She does have history of previous stroke. Will monitor for now Cardiac - Shocksecondary to septic shock. Patient remained hypotensive following 1.5 L crystalloid bolus. Now requiring vasopressor support with Levophed drip. Right IJ CVC inserted emergently. -Echo 12/14 EF 55 to 60%, left ventricular hypertrophy, severe mitral regurg, mild tricuspid regurg -No significant elevation of troponin -Random cortisol within normal limits -Titrate vasopressors to maintain MAP greater than 65 and treat underlying sepsis -Hold antihypertensives -Continuous monitoring on telemetry Respiratory - Chronic respiratory failurehistory of COPD and diastolic heart failure. Currently on 2 L nasal cannula, which is her baseline oxygen requirements. Continuous monitoring on pulse ox GI - Transaminitispatient with moderate elevation of LFTs. Bilirubin 1.6 Liver ultrasound: 1. No sonographic abnormality of the liver. 2. Thickening of the gallbladder wall and pericholecystic edema which may be reactive in this patient with ascites, less likely reflecting acute cholecystitis. Cordero's sign cannot be assessed as patient has external sources of pain. If there is clinical concern for acute cholecystitis, nuclear medicine HIDA study can be performed. -Repeating CT abdomen and pelvis as patient has significant lactic acidosis -Trend LFTs for now PPI RENAL/LYTES - AKIcreatinine currently 1.58 with previous baseline 1.06. Suspect this is prerenal in the setting of hypotension -Hyperkalemia with potassium 5.4 appears to be stable. Spironolactone on hold -Holding Lasix -Maintain MAP greater than 65 -Continue with gentle IV fluid resuscitation -Avoid nephrotoxins and renally adjust medications -Neurology consult pending. Will follow recommendations -Monitor routine BMPs and replete electrolytes as indicated. Trend - Foleystrict I's and O's ENDO - DM type IIusually controlled on oral agents but those are currently on hold in favor of sliding scale. ICU hyperglycemic protocol HEME - H&H stable, monitor routine CBC ID - Sepsissuspect this is likely urinary source given urinalysis concerning for UTI. With significantly elevated lactate, will rule out possible intra- abdominal source with CT abdomen pelvis. Patient does have mild leukocytosis but is afebrile and no significant elevation in Pro-Jose Elias. She does have chronic groin wound which she is on Diflucan. -Urine cultures and blood culture currently pending -Fungal culture pending -Nasal MRSA negative -Continue Diflucan. Ceftriaxone broadened to Zosyn LINES/IV ACCESS - Right IJ CVC DVT PROPHYLAXIS - SCDs, Lovenox I have personally spent 50 minutes of critical care time in the direct management of this patient. This is a life/limb threatening event. This includes time spent evaluating patient, direct bedside care, chart review, placing orders, interpretation of diagnostic studies, discussion with consultants, patient, and family members, as well as other required patient management activities. This time is exclusive of all separately billable procedures, and teaching time and separate from and in addition to any other critical care service time. Thank you for allowing us to participate in the care of this patient. Please refer to my attending physician's documentation for any further recommendations. (2) Elevated lactic acid level: (3) Transaminitis: (4) PVD (peripheral vascular disease): (5) PRAKASH (acute kidney injury): (6) Severe mitral regurgitation: (7) Acute on chronic diastolic heart failure with preserved ejection fraction: (8) CAD (coronary artery disease): (9) Diabetes mellitus, type II: (10) COPD (chronic obstructive pulmonary disease): (11) CVA (cerebral vascular accident): (12) Hyperlipidemia: (13) HTN (hypertension): Supervising Physician Co-Signing Physician Notes Patient seen and examined. EMR reviewed. Discussed with MOSES and agree with assessment plan as noted. Severe sepsis with septic shock of unclear etiology but favor urinary source. Continue antibiotics and pressor support. Appreciate cardiology and nephrology consultations. Continue antibiotics. Hopefully pressors can be weaned off in the next 24 hours at which point time the patient may be eligible to return back to the floor. Continue antibiotics for now. Patient is critically ill with multiorgan system dysfunction. A total of 50 minutes in critical care time was spent in evaluation management coordination of care on this patient. History of Present Illness Attending Physician: Edy Perez MD History of Present Illness Patient is a 72-year-old female with extensive past medical history including diastolic heart failure with valvular heart disease, severe MR, mild TR), CAD (s/p PCI), peripheral vascular disease, DM type II, COPD (2 L nasal cannula at baseline), hemorrhagic stroke, mood disorder, tobacco abuse, HLD, and PEA arrest on admission in October following amputation of right toe. She was recently admitted 12/13 to 12/29 with respiratory failure secondary to CHF/COPD exacerbation. She presented to the emergency department yesterday evening following a fall from 3 days ago, increased confusion. She was found to be hypotensive in the emergency department but did respond to fluid boluses. Urina lysis concerning for UTI and she was started on ceftriaxone added to the floor. This evening I was notified by the patient's primary service that she was now hypotensive. Patient received 1.5 L crystalloid bolus but remained hypotensive with systolic blood pressure in the 60s. Patient was transferred to the ICU and was started on Levophed drip with central line insertion. She had significantly elevated lactate of 7.5 and was noted to have abdominal tenderness on exam. She is undergoing CT abdomen and pelvis. I did speak with the patient's daughter and updated her on her clinical status. Exam the patient is confused but is aware that she is at [facility] and was able to tell me the month. She denies headache, dizziness, changes in vision, cough or congestion or sore throat, shortness of breath, chest pain or palpitations, nausea or vomiting or diarrhea, swelling in hands or feet. Patient does report pain at the site of a nondisplaced sacral fracture from her fall a few days ago. She does report abdominal tenderness with palpation which appears to be generalized. Patient to remain in ICU for further management at this time. Allergies Allergy/AdvReac Type Severity Reaction Status Date / Time methadone Allergy Severe "couldn't Verified 12/13/22 16:53 swallow/eyes coming out of head" nickel Allergy Severe swelling Verified 12/13/22 16:53 and infections nitroglycerin Allergy Intermediate DECREASED Verified 12/13/22 16:53 BP propoxyphene Allergy Intermediate edema to Verified 12/13/22 16:53 face/lips/tongue diclofenac Allergy Mild Rash Verified 12/13/22 16:53 hydrocodone Allergy Mild "severe Verified 12/13/22 16:53 constipation" levofloxacin [From Levaquin] Allergy Mild nausea/vomi Verified 12/13/22 16:53 ting Penicillins Allergy Mild severe Verified 12/13/22 16:53 diarrhea/rash [facility]agli[facility] Allergy Mild rash Verified 03/21/19 18:20 "blood blisters" strawberry Allergy Mild Diarrhea Verified 03/21/19 18:20 Home Medications Medication Instructions Recorded Confirmed Type aspirin 81 mg tablet,delayed 81 mg PO QAM 11/06/18 01/04/23 History release atorvastatin 40 mg tablet 40 mg PO QPM 11/06/18 01/04/23 History buspirone 15 mg tablet 15 mg PO BID 11/06/18 01/04/23 History clopidogrel 75 mg tablet 75 mg PO QAM 11/06/18 01/04/23 History glipizide 10 mg tablet 10 mg PO QAM 11/06/18 01/04/23 History loratadine 10 mg tablet 10 mg PO QAM 11/06/18 01/04/23 History albuterol sulfate 90 mcg/actuation 2 puff inhalation Q4 PRN Shortness 11/16/18 01/04/23 History aerosol inhaler (Ventolin HFA) Of Breath dicyclomine 10 mg capsule 10 mg PO TID PRN Abdominal Pain 01/11/19 01/04/23 History calcium carbonate 600 mg calcium 600 mg PO BID 03/21/19 01/04/23 History (1,500 mg) tablet (Calcium) cholecalciferol (vitamin D3) 125 5,000 unit PO BID 03/21/19 01/04/23 History mcg (5,000 unit) tablet ondansetron 4 mg disintegrating 4 mg PO Q8H PRN Nausea 03/21/19 01/04/23 History tablet pantoprazole 40 mg tablet,delayed 40 mg PO DAILY 03/21/19 01/04/23 History release sucralfate 1 gram tablet (Carafate) 1 g PO ACHS 03/21/19 01/04/23 History oxycodone 5 mg tablet 5 mg PO Q6H PRN pain #14 tabs 10/25/19 01/04/23 Rx Bifidobacterium infantis 4 mg 4 mg PO DAILY 12/13/22 01/04/23 History capsule (Align) ascorbic acid (vitamin C) 500 mg 500 mg PO DAILY 12/13/22 01/04/23 History tablet (Vitamin C) docusate sodium 50 mg capsule 50 mg PO HS 12/13/22 01/04/23 History duloxetine 30 mg capsule,delayed 30 mg PO AMHS 12/13/22 01/04/23 History release fluticasone fur. 100 mcg-umeclid 1 inh inhalation DAILY 12/13/22 01/04/23 History 62.5 mcg-vilant 25 mcg inhalat.powder (Trelegy Ellipta) glipizide 10 mg tablet 5 mg PO QPM 12/13/22 01/04/23 History ipratropium 0.5 mg-albuterol 3 mg 3 ml inhalation Q4 PRN Shortness 12/13/22 01/04/23 History (2.5 mg base)/3 mL nebulization Of Breath Or Wheezing soln lidocaine 4 % topical patch 1 patch topical DAILY PRN Pain 12/13/22 01/04/23 History menthol 0.44 %-zinc oxide 20.6 % 1 applic topical DIRECTED PRN 12/13/22 01/04/23 History topical ointment (Calmoseptine) Sores on bottom nicotine 14 mg/24 hr daily 1 patch transdermal .DAILY 12/13/22 01/04/23 History transdermal patch DIRECTED nystatin 100,000 unit/gram topical 1 applic topical TID 12/13/22 01/04/23 History powder (Nyamyc) potassium chloride 20 mEq 20 meq PO .DAILY UD 12/13/22 01/04/23 History tablet,extended release(part/cryst) zinc 50 mg tablet 50 mg PO DAILY 12/13/22 01/04/23 History cyclobenzaprine 5 mg tablet 5 mg PO BID PRN muscle spasm #14 12/22/22 01/04/23 Rx tabs furosemide 20 mg tablet 20 mg PO QAM #30 tabs 12/22/22 01/04/23 Rx metoprolol succinate 25 mg 25 mg PO QAM 30 days #30 tabs 12/22/22 01/04/23 Rx tablet,extended release 24 hr spironolactone 25 mg tablet 12.5 mg PO DAILY 30 days #15 tabs 12/22/22 01/04/23 Rx nicotine 7 mg/24 hr daily 14 mg transdermal QAM #7 ea 12/24/22 01/04/23 Rx transdermal patch sodium chloride 7 % for 4 ml inhalation BID 01/04/23 01/04/23 History nebulization Patient History Medical History (Updated 01/06/23 @ 09:35 by Vinod Moss) Anemia Anxiety [place] esophagus COPD (chronic obstructive pulmonary disease) inhaler prn Coronary artery disease, occlusive Critical limb ischemia with history of revascularization of same extremity RLE CVA (cerebral vascular accident) 2008--slight left side weakness (no assistive devices)--follows with Dr. 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 not have a smoking pipe liner Obesity (BMI 30.0-34.9) On anticoagulant therapy plavix daily Osteoarthritis PVD (peripheral vascular disease) Right upper lobe pulmonary nodule Surgical History H/O: hysterectomy History of appendectomy History of bilateral cataract extraction History of bilateral tubal ligation History of bronchoscopy History of cardiac cath x2 both @ [facility]--2000 with 1 stent/2003--no stent, instead fem-pop bypass History of carotid endarterectomy 2009 on right side History of colonoscopy with polypectomy History of dilatation and curettage x3 History of endoscopic sinus surgery History of esophagogastroduodenoscopy (EGD) History of heart artery stent x1 before 2000? @ [facility] History of repair of right rotator cuff x2 History of tooth extraction most teeth Status post femoral-popliteal bypass surgery 2004 Status post femoropopliteal bypass surgery 11/06/[address] Jara---thrombectomy/Femoral-femoral bypass Family History Sister Family history of diabetes mellitus Family history of esophageal cancer Family hx of colon cancer Sister Family history of diabetes mellitus Sister Family history of diabetes mellitus Sister Family history of diabetes mellitus Sister Family history of diabetes mellitus Sister Family history of diabetes mellitus Sister Family history of diabetes mellitus Brother Family history of diabetes mellitus Brother Family history of diabetes mellitus Brother Family history of diabetes mellitus Other Diabetes No family history of adverse response to anesthesia Stroke Social History Smoking Status: Unknown if ever smoked Tobacco Type: Cigarettes Cigarettes Per Day: 20-40; Second Hand Exposure: Yes; Do You Dip or Chew Tobacco: No; Hx Alcohol Use: No Hx Substance Use: No Preferred Language: Northern Irish Communication Ability: Effective 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 Beliefs That Will Affect Care: None Current Living Situation: Family Current Living Situation Comment: Lives with daughter Feels Safe at Home: No Is there a partner from a previous relationship who is making you feel unsafe now?: No Any Concerns about Your Family Situation: No Would You Like to Speak to Someone About Your Situation: No Assistive Devices: Bedside Commode, Oxygen - Continuous, Stair Lift and Walker Review of Systems Review of Systems: All systems reviewed & are unremarkable except as noted in HPI & below Physical Exam Constitutional: + frail appearing and cooperative Eyes: PERRL, conjunctivae normal, anicteric sclerae ENMT: external ear and nose normal, oropharynx normal Neck: trachea midline, no thyromegaly Respiratory: normal respiratory effort, lungs clear to auscultation Cardiovascular: RRR, no murmur, no edema Heart Sounds: normal S1 and normal S2 Extremities: no edema Gastrointestinal (Abdomen): Abdomen soft, nondistended, tender to palpation in all 4 quadrants of the abdomen. Bowel sounds auscultated all 4 quadrants Musculoskeletal: no cyanosis or clubbing, extremities motor strength 5/5 Skin: no rashes, warm and dry Neurologic: PERRL, EOMI, accommodation nl, no face palsy, no dysarthria Psychiatric: Orientation: oriented to person, oriented to place and cooperative; + not oriented to time Results & Data Results & Data Vital Signs (Past 12 Hours) Vital Signs Temp Pulse Pulse Resp BP BP Pulse Ox 01/06/23 04:52 01/06/23 04:48 37.1 C 01/06/23 04:45 68 27 H 01/06/23 04:32 110/61 01/06/23 04:32 65 20 82 L 01/06/23 04:30 65 17 85 L 01/06/23 04:00 57 L 25 H 01/06/23 04:00 87/49 L 01/06/23 03:59 62/52 L 01/06/23 03:59 57 L 21 01/06/23 03:57 57 L 24 01/06/23 03:45 57 L 25 H 01/06/23 03:31 58 L 28 H 01/06/23 03:31 90/52 L 01/06/23 03:30 57 L 26 H 01/06/23 03:17 96/52 L 01/06/23 03:17 59 L 17 01/06/23 03:15 70 01/06/23 03:00 63 0 L 01/06/23 02:45 64 0 L 01/06/23 02:30 64 0 L 01/06/23 02:17 63 3 L 01/06/23 02:00 59 L 0 L 01/06/23 01:45 65 4 L 01/06/23 01:30 66 0 L 01/06/23 01:15 62 0 L 01/06/23 01:00 66 0 L 01/06/23 00:45 66 0 L 01/06/23 00:30 66 0 L 01/06/23 00:15 60 5 L 01/06/23 00:00 60 0 L 01/05/23 23:45 61 3 L 01/05/23 23:30 60 2 L 01/05/23 23:15 60 0 L 01/05/23 23:00 59 L 0 L 01/05/23 22:45 60 0 L 01/05/23 22:30 59 L 0 L 01/05/23 22:15 61 0 L 01/05/23 22:00 60 0 L 01/05/23 21:45 60 0 L 01/05/23 21:30 64 0 L 01/05/23 21:15 61 2 L 01/05/23 21:00 64 0 L 01/05/23 20:45 66 0 L 01/05/23 20:30 66 0 L 01/05/23 20:15 60 0 L 01/05/23 20:00 61 0 L 01/05/23 19:00 69 22 99 01/05/23 18:45 69 23 100 01/05/23 18:30 70 21 98 01/05/23 18:15 70 19 100 01/06/23 02:57 66/52 L 01/06/23 02:38 69/48 L 01/06/23 02:33 68/42 L 01/06/23 02:02 70/42 L 01/06/23 01:53 66/57 L 01/06/23 01:42 60/43 L 01/06/23 01:28 87/48 L 01/06/23 01:12 69/47 L 01/06/23 00:01 36.5 C 65 18 86/52 L 94 01/05/23 21:00 60 01/05/23 21:00 01/05/23 19:00 36.8 C 61 16 101/49 L 95 01/05/23 20:13 58 L 16 95 O2 Del Method O2 Flow Rate 01/06/23 04:52 Nasal Cannula 2 01/06/23 04:48 01/06/23 04:45 01/06/23 04:32 01/06/23 04:32 01/06/23 04:30 01/06/23 04:00 01/06/23 04:00 01/06/23 03:59 01/06/23 03:59 01/06/23 03:57 01/06/23 03:45 01/06/23 03:31 01/06/23 03:31 01/06/23 03:30 01/06/23 03:17 01/06/23 03:17 01/06/23 03:15 01/06/23 03:00 01/06/23 02:45 01/06/23 02:30 01/06/23 02:17 01/06/23 02:00 01/06/23 01:45 01/06/23 01:30 01/06/23 01:15 01/06/23 01:00 01/06/23 00:45 01/06/23 00:30 01/06/23 00:15 01/06/23 00:00 01/05/23 23:45 01/05/23 23:30 01/05/23 23:15 01/05/23 23:00 01/05/23 22:45 01/05/23 22:30 01/05/23 22:15 01/05/23 22:00 01/05/23 21:45 01/05/23 21:30 01/05/23 21:15 01/05/23 21:00 01/05/23 20:45 01/05/23 20:30 01/05/23 20:15 01/05/23 20:00 01/05/23 19:00 01/05/23 18:45 01/05/23 18:30 01/05/23 18:15 01/06/23 02:57 01/06/23 02:38 01/06/23 02:33 01/06/23 02:02 01/06/23 01:53 01/06/23 01:42 01/06/23 01:28 01/06/23 01:12 01/06/23 00:01 Nasal Cannula 2.0 01/05/23 21:00 01/05/23 21:00 Nasal Cannula 2 01/05/23 19:00 Nasal Cannula 5 01/05/23 20:13 Nasal Cannula 2 Coding Level of Care Code 91605 CRITICAL CARE 1ST 30-74M Diagnoses Septic shock A41.9; R65.21 Elevated lactic acid level R79.89 Transaminitis R74.01 PVD (peripheral vascular disease) I73.9 PRAKASH (acute kidney injury) N17.9 Severe mitral regurgitation I34.0 Acute on chronic diastolic heart failure with preserved ejection fraction I50.33 CAD (coronary artery disease) I25.10 Diabetes mellitus, type II E11.9 COPD (chronic obstructive pulmonary disease) J44.9 CVA (cerebral vascular accident) I63.9 Hyperlipidemia E78.5 HTN (hypertension) I10
--- NOTE | 2023-01-06 05:31 | Procedure Note ---
Procedure Note Date of Service January 06, 2023 Note INTERNAL JUGULAR CENTRAL LINE PROCEDURE NOTE: Procedure: Internal Jugular Central Line Placement Attending: Dr. Manpreet Gomez Provider: SHREE De Anda Indication: Central Drug Administration, Poor Venous Access Anesthesia: Lidocaine 1% Line placed emergently in the setting of septic shock requiring vasopressor support. A time-out was completed verifying correct patient, procedure, site, positioning, and implants(s) or special equipment if applicable. Patients right neck was cleansed and draped in the typical sterile fashion using Chloraprep. The Internal Jugular Vein and Carotid Artery were identified using ultrasound. The superficial tissue was anesthetized using 3 mL of 1% lidocaine without epinephrine under direct visualization with the ultrasound. After adequate anesthetization was achieved, the Internal Jugular vein was cannulated under direct ultrasound guidance using an introducer needle on a syringe. Good venous blood return was maintained prior to removal of syringe from introducer needle. Using Seldinger Technique, a guide wire was advanced through the introducer needle without resistance. The introducer needle was removed and ultrasound images were obtained of the guide wire within the Internal Jugular Vein and saved to the patients medical record. A small incision was made in penetrating fashion at the guide wire insertion site utilizing an 11 blade scalpel. The dilator was advanced to the vessel without resistance. The dilator was exchanged for the triple lumen catheter which was advanced into the vessel without resistance. The guide wire was removed intact from the catheter without issue. Claves were placed on each catheter tip with confirmation of good blood flow from each lumen. Each port was easily flushed with sterile saline. The catheter was placed at 16 cm and sutured in place. BioPatch was applied to the catheter and a sterile Tegaderm dressing was applied over the catheter with careful attention to sterility. Patient tolerated procedure well. No immediate complications were met. Post procedure x-ray was completed, placement was appropriate and no pneumothorax was noted. Procedural Ultrasound Guidance: Procedure Date: 01/06/2023 Indication: Central venous catheter insertion Attending: Dr. Manpreet Gomez Provider: SHREE De Anda Artery AND Vein visualized: Yes Compressible Vein: Yes Guidewire or Short Catheter seen in vein prior to dilation: Yes Line confirmed in Vein with ultrasound: Yes Images obtained are saved for permanent record. Coding CPT Codes Tubes, Drains, and Vasc Access - Tubes, Drains, and Vasc Access: [id number] Insertion Of Non-tunneled Catheter Age 5 Yrs> ([id number]) Tubes, Drains, and Vasc Access - Tubes, Drains, and Vasc Access: [id number] Ultrasound Guidance For Vascular ([id number]) [facility] Procedure Codes (Charges) Tubes, Drains, and Vasc Access Procedure 1: Tubes, Drains, and Vasc Access: [id number] Ultrasound Guidance For Vascular Procedure 2: Tubes, Drains, and Vasc Access: [id number] Insertion Of Non-tunneled Catheter Age 4 Yrs>
--- NOTE | 2023-01-06 06:31 | CT Scan Report ---
Exam(s): CT ABDOMEN + PELVIS Without Contrast EXAM: CT Abdomen and Pelvis Without Intravenous Contrast CLINICAL HISTORY: Reason for exam: sepsis, abdominal tenderness, Lactic acidosis. TECHNIQUE: Axial computed tomography images of the abdomen and pelvis without intravenous contrast. CTDI is 37.36 mGy and DLP is 1895.8 mGy-cm. Automated exposure control was utilized for the study. A dose lowering technique was utilized adhering to the principles of ALARA. COMPARISON: No relevant prior studies available. FINDINGS: Limitations: Limited evaluation in the absence of contrast. Lung bases: See below. Pleural space: Moderate bilateral pleural effusions with adjacent airspace disease, likely relating to compressive atelectasis. Heart: Cardiomegaly. ABDOMEN: Liver: Cirrhotic morphology of the liver. Gallbladder and bile ducts: Vicarious excretion of contrast in the gallbladder which can be seen with acute renal dysfunction. No calcified stones. No ductal dilation. Pancreas: Unremarkable. No ductal dilation. Spleen: Unremarkable. No splenomegaly. Adrenals: Unremarkable. No mass. Kidneys and ureters: Persistent contrast nephrograms. Findings can be seen with acute tubular necrosis. No evidence of radiopaque renal calculi or signs of collecting system dilatation. Stomach and bowel: No evidence of bowel obstruction. No mucosal thickening. PELVIS: Appendix: Normal appendix. Bladder: Diffuse bladder wall thickening with adjacent perivesicular stranding. Findings may relate to cystitis. Consider correlation with laboratory values. No stones. Reproductive: Unremarkable as visualized. ABDOMEN and PELVIS: Intraperitoneal space: Moderate mesenteric ascites. No free air. Bones/joints: Degenerative changes in the spine. No acute fracture. No dislocation. Soft tissues: Anasarca. Vasculature: Atherosclerotic disease. Nitinol stent within the superior mesenteric artery. No abdominal aortic aneurysm. Lymph nodes: Unremarkable. No enlarged lymph nodes. IMPRESSION: 1. Limited evaluation in the absence of contrast. 2. Diffuse bladder wall thickening with adjacent perivesicular stranding. Findings may relate to cystitis. Consider correlation with laboratory values. 3. Persistent contrast nephrograms. Findings can be seen with acute tubular necrosis. 4. Vicarious excretion of contrast in the gallbladder which can be seen with acute renal dysfunction. 5. Findings consistent with systemic volume overload with moderate bilateral pleural effusions, moderate mesenteric ascites, and anasarca. 6. Cirrhotic morphology of the liver. 7. Incidental findings as described. Electronically signed by: Castro Conde MD 01/06/23 06:30 AM
--- NOTE | 2023-01-06 06:48 | XRay Report ---
XR chest 1V portable CLINICAL HISTORY: central line placement COMPARISON STUDY: Chest CT December 14, 2022. Chest radiograph January 04, 2023. FINDINGS: There is no pneumothorax upon placement of a right internal jugular central line. Catheter tip projects of the distal SVC. Cardiomegaly is again noted. There are trace bilateral pleural effusi ons. Interstitial thickening has slightly progressed. A few patchy bilateral airspace opacities are p resent. IMPRESSION: 1. No pneumothorax following placement of a right internal jugular central line. 2. Cardiomegaly. Slight increase in pulmonary edema. Trace bilateral pleural effusions. 3. A few patchy bilateral opacities which could reflect an infectious process or atelectasis. ACT 112: Negative or not required by law. Electronically signed by: Patrice Partida M.D. 01/06/2023 6:46 AM
--- NOTE | 2023-01-06 07:18 | Hospitalist Progress Note ---
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 Postoperatively patient cardiac cardiac arrest which was PEA arrest and required chest compressions for 30 seconds and she was transferred to ICU for management of cardiogenic shock. Cardiac cath done on November 10 was found to have multivessel disease. Patient opted to go for PCI instead of CT surgery. She was noted to have severe mitral regurgitation on echo in November 11. She underwent PCI to LM/LAD on November 12 and tolerated the procedure well. Started Toprol-XL and to follow outpatient. She also tested COVID infection on November 22. Improved with 1 day of Decadron remdesivir and discharged home on home oxygen and to complete her steroid taper. She is requiring oxygen 2 L on ambulation 3 L overnight. She was discharged on IV Zosyn to complete on December 16. Intraoperative cultures also showed Kayla and she is on Diflucan to complete on December 16. To follow-up with outpatient vascular as well as infectious disease. Lives at home with her daughter. Ambulates without support. Severe sepsis SIRS plus lactic acidosis secondary to complicated UTI/ vs wound infection? 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 -> required transfer to ICU Hyperkalemia - possibly secondary to home medications, spironolactone on hold - persistent hyperkalemia despite insulin, lokelma started - nephrology consulted Transaminitis secondary to hepatic congestion from CHF vs secondary to sepsis ? hold statin for now Liver US obtained - 1. No sonographic abnormality of the liver. 2. Thickening of the gallbladder wall and pericholecystic edema which may be reactive in this patient with ascites, less likely reflecting acute cholecystitis. Cordero's sign cannot be assessed as patient has external sources of pain. If there is clinical concern for acute cholecystitis, nuclear medicine HIDA study can be performed. Hep panel ordered LFTs trending down chronic diastolic heart failure (EF 55 to 60%, TTE 2022), equivocal volume status given congestion on x-ray, patient intravascularly dry Pt required fluid resuscitation, received albumin and IVF Troponin elevation secondary to illness Cardiology consulted valvular heart disease (severe MR, mild TR) hx CAD status post stent PVD status post surgery CVA COPD, lung status at baseline , uses 2L of suppl. O2 hyperlipidemia, on statin Rx, hold for now d/t elev. LFTs DM 2 on oral medications, well-controlled as of recent hemoglobin A1c of 6.8 this month chronic anemia, hemoglobin at baseline Traumatic tailbone fracture, ambulatory dysfunction, Lidocaine patch trial for his tailbone fracture ongoing tobacco abuse. PT OT eval once medically stable DVT prophylaxis. Lovenox subcu DNR as per patient. Patient's daughter - Ms. Diamond Braxton, contact #[phone]. Diamond updated by me twice yesterday and overnight by gutter hanger. 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 w/ patrol sergeant - wound vac removed - concern for skin fungal infection wound cultx ordered Pt was on IV zosyn and fluconazole till 12/16 by Donato ID - donato contacted and consult placed Ceftriaxone switched to zosyn and fluconazole for now Pt became hypotensive overnight and required transition to ICU Review of Systems Review of Systems: Unobtainable due to cognitive status Physical Exam Physical Exam: GENERAL: WD/WN F in NAD, drowsy HEENT: Pale palpebral conjunctivae, dry buccal mucosa, nasal cannula in place NECK : Supple, no tenderness CHEST : Decreased breath sounds, no tenderness HEART : RRR, systolic murmur ABDOMEN: Some distention, nontender, + bowel sounds BACK : + Sacral tenderness EXTREMITIES : Minimal LE swelling, no LE tenderness, moves extremities NEUROLOGIC : drowsy, only answers some questions appropriately, speech fluent and soft, moves extremities SKIN: Pallor, warm Results & Data Results & Data Vital Signs (Past 12 Hours) Vital Signs Temp Pulse Pulse Resp BP BP Pulse Ox 01/06/23 06:31 70 28 H 01/06/23 06:31 122/60 01/06/23 06:30 70 25 H 90 01/06/23 06:16 114/68 01/06/23 06:16 70 20 90 01/06/23 06:15 70 27 H 92 01/06/23 06:01 70 23 89 L 01/06/23 06:01 123/60 01/06/23 06:01 123/60 01/06/23 06:00 70 26 H 82 L 01/06/23 05:46 134/66 01/06/23 05:46 69 26 H 96 01/06/23 05:45 70 26 H 97 01/06/23 05:30 68 15 94 01/06/23 05:30 127/73 01/06/23 05:21 69 25 H 97 01/06/23 05:21 130/50 L 01/06/23 05:15 70 19 97 01/06/23 05:00 69 22 38 L 01/06/23 05:00 103/81 01/06/23 04:52 01/06/23 04:48 37.1 C 01/06/23 04:45 68 27 H 01/06/23 04:32 110/61 01/06/23 04:32 65 20 82 L 01/06/23 04:30 65 17 85 L 01/06/23 04:00 57 L 25 H 01/06/23 04:00 87/49 L 01/06/23 03:59 62/52 L 01/06/23 03:59 57 L 21 01/06/23 03:57 57 L 24 01/06/23 03:45 57 L 25 H 01/06/23 03:31 58 L 28 H 01/06/23 03:31 90/52 L 01/06/23 03:30 57 L 26 H 01/06/23 03:17 96/52 L 01/06/23 03:17 59 L 17 01/06/23 03:15 70 01/06/23 03:00 63 0 L 01/06/23 02:45 64 0 L 01/06/23 02:30 64 0 L 01/06/23 02:17 63 3 L 01/06/23 02:00 59 L 0 L 01/06/23 01:45 65 4 L 01/06/23 01:30 66 0 L 01/06/23 01:15 62 0 L 01/06/23 01:00 66 0 L 01/06/23 00:45 66 0 L 01/06/23 00:30 66 0 L 01/06/23 00:15 60 5 L 01/06/23 00:00 60 0 L 01/05/23 23:45 61 3 L 01/05/23 23:30 60 2 L 01/05/23 23:15 60 0 L 01/05/23 23:00 59 L 0 L 01/05/23 22:45 60 0 L 01/05/23 22:30 59 L 0 L 01/05/23 22:15 61 0 L 01/05/23 22:00 60 0 L 01/05/23 21:45 60 0 L 01/05/23 21:30 64 0 L 01/05/23 21:15 61 2 L 01/05/23 21:00 64 0 L 01/05/23 20:45 66 0 L 01/05/23 20:30 66 0 L 01/05/23 20:15 60 0 L 01/05/23 20:00 61 0 L 01/06/23 02:57 66/52 L 01/06/23 02:38 69/48 L 01/06/23 02:33 68/42 L 01/06/23 02:02 70/42 L 01/06/23 01:53 66/57 L 01/06/23 01:42 60/43 L 01/06/23 01:28 87/48 L 01/06/23 01:12 69/47 L 01/06/23 00:01 36.5 C 65 18 86/52 L 94 01/05/23 21:00 60 01/05/23 21:00 01/05/23 20:13 58 L 16 95 O2 Del Method O2 Flow Rate 01/06/23 06:31 01/06/23 06:31 01/06/23 06:30 Nasal Cannula 3 01/06/23 06:16 01/06/23 06:16 01/06/23 06:15 01/06/23 06:01 01/06/23 06:01 01/06/23 06:01 01/06/23 06:00 01/06/23 05:46 01/06/23 05:46 01/06/23 05:45 01/06/23 05:30 01/06/23 05:30 01/06/23 05:21 01/06/23 05:21 01/06/23 05:15 01/06/23 05:00 01/06/23 05:00 01/06/23 04:52 Nasal Cannula 2 01/06/23 04:48 01/06/23 04:45 01/06/23 04:32 01/06/23 04:32 01/06/23 04:30 01/06/23 04:00 01/06/23 04:00 01/06/23 03:59 01/06/23 03:59 01/06/23 03:57 01/06/23 03:45 01/06/23 03:31 01/06/23 03:31 01/06/23 03:30 01/06/23 03:17 01/06/23 03:17 01/06/23 03:15 01/06/23 03:00 01/06/23 02:45 01/06/23 02:30 01/06/23 02:17 01/06/23 02:00 01/06/23 01:45 01/06/23 01:30 01/06/23 01:15 01/06/23 01:00 01/06/23 00:45 01/06/23 00:30 01/06/23 00:15 01/06/23 00:00 01/05/23 23:45 01/05/23 23:30 01/05/23 23:15 01/05/23 23:00 01/05/23 22:45 01/05/23 22:30 01/05/23 22:15 01/05/23 22:00 01/05/23 21:45 01/05/23 21:30 01/05/23 21:15 01/05/23 21:00 01/05/23 20:45 01/05/23 20:30 01/05/23 20:15 01/05/23 20:00 01/06/23 02:57 01/06/23 02:38 01/06/23 02:33 01/06/23 02:02 01/06/23 01:53 01/06/23 01:42 01/06/23 01:28 01/06/23 01:12 01/06/23 00:01 Nasal Cannula 2.0 01/05/23 21:00 01/05/23 21:00 Nasal Cannula 2 01/05/23 20:13 Nasal Cannula 2 Laboratory Results 01/06/23 01/06/23 01/06/23 Range/Units Unknown 05:34 03:24 WBC (4.8-10.8) K/ul RBC (4.20-5.40) M/uL Hgb (12.0-16.0) g/dl Hct (37.0-47.0) % MCV (80.0-100.0) fL MCH (25.0-34.0) pg MCHC (32.0-36.0) g/dL RDW Std Deviation (36.4-46.3) fL RDW Coeff of Shahrzad (11.5-14.5) % Plt Count (130-400) K/uL MPV (9.4-12.4) fL Immature Gran % (Auto) % Neut % (Auto) % Lymph % (Auto) % [place] % (Auto) % Eos % (Auto) % Baso % (Auto) % Neut # (Auto) (1.40-6.50) K/uL Lymph # (Auto) (1.20-3.40) K/uL [place] # (Auto) (0.11-0.59) K/uL Eos # (Auto) (0.00-0.50) K/uL Baso # (Auto) (0.00-0.20) K/uL Immature Gran # (Auto) (0.01-0.20) K/uL Absolute Nucleated RBC (0.00-0.12) K/uL Nucleated RBC % (auto) % Polychromasia Anisocytosis Echinocytes ABG pH (7.35-7.45) ABG pCO2 (35-46) mmHg ABG pO2 (80-95) mmHg ABG HCO3 (19-24) mmol/L ABG O2 Saturation (90-95) % ABG Base Excess (-9-1.8) mEq/L Jimmie Test (Pos) Oxygen Given Sodium 133 L (136-145) mmol/L Potassium 5.4 H (3.5-5.1) mmol/L Chloride 103 (98-107) mmol/L Carbon Dioxide 16 L (21-32) mmol/L Anion Gap 14 H (3-11) BUN 32 H (6-23) mg/dl Creatinine 1.58 H (0.6-1.2) mg/dl Est Cr Clr Drug Dosing 30.4 ml/min Est GFR ( Amer) 37.2 ml/min Est GFR (Non-Af Amer) 32.1 ml/min BUN/Creatinine Ratio 20.3 H (10-20) Glucose 115 H (70-99(Fasting)) mg/dl POC Glucose (70-99) mg/dl Lactate 6.1 H* (0.4-2.0) mmol/L Calcium 8.5 L (8.6-10.3) mg/dl Phosphorus (2.5-4.9) mg/dl Magnesium (1.7-2.4) mg/dl Total Bilirubin 1.6 H (0.2-1.0) mg/dl AST 335 H (13-39) U/L ALT 314 H (7-52) U/L Alkaline Phosphatase 347 H (34-104) U/L Troponin I High Sens 19.1 H (0-14) pg/ml Total Protein 6.0 (6.0-8.3) gm/dl Albumin 3.7 (3.4-5.0) gm/dl Globulin 2.3 L (2.5-4.0) gm/dl Albumin/Globulin Ratio 1.6 (0.9-2) Procalcitonin (0-0.5) ng/ml Random Cortisol mcg/dl Urine Color Urine Appearance (Clear) Urine pH (4.5-7.5) Ur Specific [place] (1.000-1.030) Urine Protein (Negative) Urine Glucose (UA) (Negative) Urine Ketones (Negative) Urine Blood (Negative) Urine Nitrite (Negative) Urine Bilirubin (Negative) Urine Urobilinogen (Negative) Ur Leukocyte Esterase (Negative) Urine RBC (0-4) /hpf Urine WBC (0-5) /hpf Ur Epithelial Cells (0-5) /lpf Urine Bacteria (Negative) Hyaline Casts (0-5) /lpf Nasal Screen MRSA (PCR) Negative (Negative) Hepatitis A IgM Ab Hep Bs Antigen Hep Bs Ag Confirmation Hep B Core IgM Ab Hepatitis C Ab (EIA) 01/06/23 01/06/23 01/06/23 Range/Units 03:24 03:24 03:24 WBC (4.8-10.8) K/ul RBC (4.20-5.40) M/uL Hgb (12.0-16.0) g/dl Hct (37.0-47.0) % MCV (80.0-100.0) fL MCH (25.0-34.0) pg MCHC (32.0-36.0) g/dL RDW Std Deviation (36.4-46.3) fL RDW Coeff of Shahrzad (11.5-14.5) % Plt Count (130-400) K/uL MPV (9.4-12.4) fL Immature Gran % (Auto) % Neut % (Auto) % Lymph % (Auto) % [place] % (Auto) % Eos % (Auto) % Baso % (Auto) % Neut # (Auto) (1.40-6.50) K/uL Lymph # (Auto) (1.20-3.40) K/uL [place] # (Auto) (0.11-0.59) K/uL Eos # (Auto) (0.00-0.50) K/uL Baso # (Auto) (0.00-0.20) K/uL Immature Gran # (Auto) (0.01-0.20) K/uL Absolute Nucleated RBC (0.00-0.12) K/uL Nucleated RBC % (auto) % Polychromasia Anisocytosis Echinocytes ABG pH (7.35-7.45) ABG pCO2 (35-46) mmHg ABG pO2 (80-95) mmHg ABG HCO3 (19-24) mmol/L ABG O2 Saturation (90-95) % ABG Base Excess (-9-1.8) mEq/L Jimmie Test (Pos) Oxygen Given Sodium (136-145) mmol/L Potassium (3.5-5.1) mmol/L Chloride (98-107) mmol/L Carbon Dioxide (21-32) mmol/L Anion Gap (3-11) BUN (6-23) mg/dl Creatinine (0.6-1.2) mg/dl Est Cr Clr Drug Dosing ml/min Est GFR ( Amer) ml/min Est GFR (Non-Af Amer) ml/min BUN/Creatinine Ratio (10-20) Glucose (70-99(Fasting)) mg/dl POC Glucose (70-99) mg/dl Lactate 7.5 H* (0.4-2.0) mmol/L Calcium (8.6-10.3) mg/dl Phosphorus (2.5-4.9) mg/dl Magnesium (1.7-2.4) mg/dl Total Bilirubin (0.2-1.0) mg/dl AST (13-39) U/L ALT (7-52) U/L Alkaline Phosphatase (34-104) U/L Troponin I High Sens (0-14) pg/ml Total Protein (6.0-8.3) gm/dl Albumin (3.4-5.0) gm/dl Globulin (2.5-4.0) gm/dl Albumin/Globulin Ratio (0.9-2) Procalcitonin 0.29 (0-0.5) ng/ml Random Cortisol 34.21 mcg/dl Urine Color Urine Appearance (Clear) Urine pH (4.5-7.5) Ur Specific [place] (1.000-1.030) Urine Protein (Negative) Urine Glucose (UA) (Negative) Urine Ketones (Negative) Urine Blood (Negative) Urine Nitrite (Negative) Urine Bilirubin (Negative) Urine Urobilinogen (Negative) Ur Leukocyte Esterase (Negative) Urine RBC (0-4) /hpf Urine WBC (0-5) /hpf Ur Epithelial Cells (0-5) /lpf Urine Bacteria (Negative) Hyaline Casts (0-5) /lpf Nasal Screen MRSA (PCR) (Negative) Hepatitis A IgM Ab Hep Bs Antigen Hep Bs Ag Confirmation Hep B Core IgM Ab Hepatitis C Ab (EIA) 01/06/23 01/06/23 01/06/23 Range/Units 03:24 03:24 00:04 WBC 13.11 H (4.8-10.8) K/ul RBC 3.07 L (4.20-5.40) M/uL Hgb 8.1 L (12.0-16.0) g/dl Hct 27.2 L (37.0-47.0) % MCV 88.6 (80.0-100.0) fL MCH 26.4 (25.0-34.0) pg MCHC 29.8 L (32.0-36.0) g/dL RDW Std Deviation 55.4 H (36.4-46.3) fL RDW Coeff of Shahrzad 17.4 H (11.5-14.5) % Plt Count 356 (130-400) K/uL MPV 10.9 (9.4-12.4) fL Immature Gran % (Auto) 1.0 % Neut % (Auto) 79.1 % Lymph % (Auto) 9.4 % [place] % (Auto) 10.1 % Eos % (Auto) 0.2 % Baso % (Auto) 0.2 % Neut # (Auto) 10.37 H (1.40-6.50) K/uL Lymph # (Auto) 1.23 (1.20-3.40) K/uL [place] # (Auto) 1.33 H (0.11-0.59) K/uL Eos # (Auto) 0.02 (0.00-0.50) K/uL Baso # (Auto) 0.03 (0.00-0.20) K/uL Immature Gran # (Auto) 0.13 (0.01-0.20) K/uL Absolute Nucleated RBC 0.63 H (0.00-0.12) K/uL Nucleated RBC % (auto) 4.8 % Polychromasia 1+ Anisocytosis Present Echinocytes 1+ ABG pH (7.35-7.45) ABG pCO2 (35-46) mmHg ABG pO2 (80-95) mmHg ABG HCO3 (19-24) mmol/L ABG O2 Saturation (90-95) % ABG Base Excess (-9-1.8) mEq/L Jimmie Test (Pos) Oxygen Given Sodium 134 L (136-145) mmol/L Potassium 5.6 H (3.5-5.1) mmol/L Chloride 104 (98-107) mmol/L Carbon Dioxide 17 L (21-32) mmol/L Anion Gap 13 H (3-11) BUN 34 H (6-23) mg/dl Creatinine 1.59 H (0.6-1.2) mg/dl Est Cr Clr Drug Dosing 30.2 ml/min Est GFR ( Amer) 36.9 ml/min Est GFR (Non-Af Amer) 31.9 ml/min BUN/Creatinine Ratio 21.4 H (10-20) Glucose 119 H (70-99(Fasting)) mg/dl POC Glucose 153 H (70-99) mg/dl Lactate (0.4-2.0) mmol/L Calcium 8.6 (8.6-10.3) mg/dl Phosphorus 3.5 (2.5-4.9) mg/dl Magnesium 1.9 (1.7-2.4) mg/dl Total Bilirubin 1.6 H (0.2-1.0) mg/dl AST 333 H (13-39) U/L ALT 308 H (7-52) U/L Alkaline Phosphatase 346 H (34-104) U/L Troponin I High Sens (0-14) pg/ml Total Protein 6.1 (6.0-8.3) gm/dl Albumin 3.7 (3.4-5.0) gm/dl Globulin 2.4 L (2.5-4.0) gm/dl Albumin/Globulin Ratio 1.5 (0.9-2) Procalcitonin (0-0.5) ng/ml Random Cortisol mcg/dl Urine Color Urine Appearance (Clear) Urine pH (4.5-7.5) Ur Specific [place] (1.000-1.030) Urine Protein (Negative) Urine Glucose (UA) (Negative) Urine Ketones (Negative) Urine Blood (Negative) Urine Nitrite (Negative) Urine Bilirubin (Negative) Urine Urobilinogen (Negative) Ur Leukocyte Esterase (Negative) Urine RBC (0-4) /hpf Urine WBC (0-5) /hpf Ur Epithelial Cells (0-5) /lpf Urine Bacteria (Negative) Hyaline Casts (0-5) /lpf Nasal Screen MRSA (PCR) (Negative) Hepatitis A IgM Ab Hep Bs Antigen Hep Bs Ag Confirmation Hep B Core IgM Ab Hepatitis C Ab (EIA) 01/05/23 01/05/23 01/05/23 Range/Units Unknown 23:07 20:34 WBC (4.8-10.8) K/ul RBC (4.20-5.40) M/uL Hgb (12.0-16.0) g/dl Hct (37.0-47.0) % MCV (80.0-100.0) fL MCH (25.0-34.0) pg MCHC (32.0-36.0) g/dL RDW Std Deviation (36.4-46.3) fL RDW Coeff of Shahrzad (11.5-14.5) % Plt Count (130-400) K/uL MPV (9.4-12.4) fL Immature Gran % (Auto) % Neut % (Auto) % Lymph % (Auto) % [place] % (Auto) % Eos % (Auto) % Baso % (Auto) % Neut # (Auto) (1.40-6.50) K/uL Lymph # (Auto) (1.20-3.40) K/uL [place] # (Auto) (0.11-0.59) K/uL Eos # (Auto) (0.00-0.50) K/uL Baso # (Auto) (0.00-0.20) K/uL Immature Gran # (Auto) (0.01-0.20) K/uL Absolute Nucleated RBC (0.00-0.12) K/uL Nucleated RBC % (auto) % Polychromasia Anisocytosis Echinocytes ABG pH (7.35-7.45) ABG pCO2 (35-46) mmHg ABG pO2 (80-95) mmHg ABG HCO3 (19-24) mmol/L ABG O2 Saturation (90-95) % ABG Base Excess (-9-1.8) mEq/L Jimmie Test (Pos) Oxygen Given Sodium 133 L (136-145) mmol/L Potassium 5.6 H (3.5-5.1) mmol/L Chloride 101 (98-107) mmol/L Carbon Dioxide 20 L (21-32) mmol/L Anion Gap 12 H (3-11) BUN 35 H (6-23) mg/dl Creatinine 1.45 H (0.6-1.2) mg/dl Est Cr Clr Drug Dosing 33.1 ml/min Est GFR ( Amer) 41.3 ml/min Est GFR (Non-Af Amer) 35.6 ml/min BUN/Creatinine Ratio 24.1 H (10-20) Glucose 155 H (70-99(Fasting)) mg/dl POC Glucose 247 H (70-99) mg/dl Lactate (0.4-2.0) mmol/L Calcium 9.3 (8.6-10.3) mg/dl Phosphorus (2.5-4.9) mg/dl Magnesium (1.7-2.4) mg/dl Total Bilirubin (0.2-1.0) mg/dl AST (13-39) U/L ALT (7-52) U/L Alkaline Phosphatase (34-104) U/L Troponin I High Sens (0-14) pg/ml Total Protein (6.0-8.3) gm/dl Albumin (3.4-5.0) gm/dl Globulin (2.5-4.0) gm/dl Albumin/Globulin Ratio (0.9-2) Procalcitonin (0-0.5) ng/ml Random Cortisol mcg/dl Urine Color Yellow Urine Appearance Clear (Clear) Urine pH 5.5 (4.5-7.5) Ur Specific [place] 1.015 (1.000-1.030) Urine Protein 3+ H (Negative) Urine Glucose (UA) Negative (Negative) Urine Ketones 1+ H (Negative) Urine Blood 3+ H (Negative) Urine Nitrite Negative (Negative) Urine Bilirubin 2+ H (Negative) Urine Urobilinogen Positive H (Negative) Ur Leukocyte Esterase Negative (Negative) Urine RBC 10-30 H (0-4) /hpf Urine WBC 10-30 H (0-5) /hpf Ur Epithelial Cells 5-10 H (0-5) /lpf Urine Bacteria 3+ H (Negative) Hyaline Casts 10-30 H (0-5) /lpf Nasal Screen MRSA (PCR) (Negative) Hepatitis A IgM Ab Hep Bs Antigen Hep Bs Ag Confirmation Hep B Core IgM Ab Hepatitis C Ab (EIA) 01/05/23 01/05/2301/05/23 Range/Units 18:54 18:54 18:53 WBC 11.96 H (4.8-10.8) K/ul RBC 2.91 L (4.20-5.40) M/uL Hgb 7.5 L (12.0-16.0) g/dl Hct 25.4 L (37.0-47.0) % MCV 87.3 (80.0-100.0) fL MCH 25.8 (25.0-34.0) pg MCHC 29.5 L (32.0-36.0) g/dL RDW Std Deviation 54.1 H (36.4-46.3) fL RDW Coeff of Shahrzad 17.1 H (11.5-14.5) % Plt Count 329 (130-400) K/uL MPV 10.8 (9.4-12.4) fL Immature Gran % (Auto) % Neut % (Auto) % Lymph % (Auto) % [place] % (Auto) % Eos % (Auto) % Baso % (Auto) % Neut # (Auto) (1.40-6.50) K/uL Lymph # (Auto) (1.20-3.40) K/uL [place] # (Auto) (0.11-0.59) K/uL Eos # (Auto) (0.00-0.50) K/uL Baso # (Auto) (0.00-0.20) K/uL Immature Gran # (Auto) (0.01-0.20) K/uL Absolute Nucleated RBC 0.37 H (0.00-0.12) K/uL Nucleated RBC % (auto) 3.1 % Polychromasia Anisocytosis Echinocytes ABG pH (7.35-7.45) ABG pCO2 (35-46) mmHg ABG pO2 (80-95) mmHg ABG HCO3 (19-24) mmol/L ABG O2 Saturation (90-95) % ABG Base Excess (-9-1.8) mEq/L Jimmie Test (Pos) Oxygen Given Sodium 132 L (136-145) mmol/L Potassium 5.7 H (3.5-5.1) mmol/L Chloride 102 (98-107) mmol/L Carbon Dioxide 23 (21-32) mmol/L Anion Gap 7 (3-11) BUN 31 H (6-23) mg/dl Creatinine 1.18 (0.6-1.2) mg/dl Est Cr Clr Drug Dosing 40.7 ml/min Est GFR ( Amer) 53.0 ml/min Est GFR (Non-Af Amer) 45.7 ml/min BUN/Creatinine Ratio 26.3 H (10-20) Glucose 160 H (70-99(Fasting)) mg/dl POC Glucose (70-99) mg/dl Lactate 3.1 H* (0.4-2.0) mmol/L Calcium 9.4 (8.6-10.3) mg/dl Phosphorus 3.2 (2.5-4.9) mg/dl Magnesium 2.0 (1.7-2.4) mg/dl Total Bilirubin 1.5 H (0.2-1.0) mg/dl AST 393 H (13-39) U/L ALT 348 H (7-52) U/L Alkaline Phosphatase 384 H (34-104) U/L Troponin I High Sens (0-14) pg/ml Total Protein 6.4 (6.0-8.3) gm/dl Albumin 3.8 (3.4-5.0) gm/dl Globulin 2.6 (2.5-4.0) gm/dl Albumin/Globulin Ratio 1.5 (0.9-2) Procalcitonin (0-0.5) ng/ml Random Cortisol mcg/dl Urine Color Urine Appearance (Clear) Urine pH (4.5-7.5) Ur Specific [place] (1.000-1.030) Urine Protein (Negative) Urine Glucose (UA) (Negative) Urine Ketones (Negative) Urine Blood (Negative) Urine Nitrite (Negative) Urine Bilirubin (Negative) Urine Urobilinogen (Negative) Ur Leukocyte Esterase (Negative) Urine RBC (0-4) /hpf Urine WBC (0-5) /hpf Ur Epithelial Cells (0-5) /lpf Urine Bacteria (Negative) Hyaline Casts (0-5) /lpf Nasal Screen MRSA (PCR) (Negative) Hepatitis A IgM Ab Hep Bs Antigen Hep Bs Ag Confirmation Hep B Core IgM Ab Hepatitis C Ab (EIA) 01/05/23 01/05/23 01/05/23 Range/Units 17:00 14:54 14:54 WBC (4.8-10.8) K/ul RBC (4.20-5.40) M/uL Hgb (12.0-16.0) g/dl Hct (37.0-47.0) % MCV (80.0-100.0) fL MCH (25.0-34.0) pg MCHC (32.0-36.0) g/dL RDW Std Deviation (36.4-46.3) fL RDW Coeff of Shahrzad (11.5-14.5) % Plt Count (130-400) K/uL MPV (9.4-12.4) fL Immature Gran % (Auto) % Neut % (Auto) % Lymph % (Auto) % [place] % (Auto) % Eos % (Auto) % Baso % (Auto) % Neut # (Auto) (1.40-6.50) K/uL Lymph # (Auto) (1.20-3.40) K/uL [place] # (Auto) (0.11-0.59) K/uL Eos # (Auto) (0.00-0.50) K/uL Baso # (Auto) (0.00-0.20) K/uL Immature Gran # (Auto) (0.01-0.20) K/uL Absolute Nucleated RBC (0.00-0.12) K/uL Nucleated RBC % (auto) % Polychromasia Anisocytosis Echinocytes ABG pH (7.35-7.45) ABG pCO2 (35-46) mmHg ABG pO2 (80-95) mmHg ABG HCO3 (19-24) mmol/L ABG O2 Saturation (90-95) % ABG Base Excess (-9-1.8) mEq/L Jimmie Test (Pos) Oxygen Given Sodium 134 L (136-145) mmol/L Potassium 5.5 H (3.5-5.1) mmol/L Chloride 100 (98-107) mmol/L Carbon Dioxide 22 (21-32) mmol/L Anion Gap 12 H (3-11) BUN 31 H (6-23) mg/dl Creatinine 1.06 (0.6-1.2) mg/dl Est Cr Clr Drug Dosing 45.3 ml/min Est GFR ( Amer) 60.3 ml/min Est GFR (Non-Af Amer) 52.0 ml/min BUN/Creatinine Ratio 29.2 H (10-20) Glucose 175 H (70-99(Fasting)) mg/dl POC Glucose 176 H (70-99) mg/dl Lactate 3.6 H* (0.4-2.0) mmol/L Calcium 9.9 (8.6-10.3) mg/dl Phosphorus 3.3 (2.5-4.9) mg/dl Magnesium 2.1 (1.7-2.4) mg/dl Total Bilirubin (0.2-1.0) mg/dl AST (13-39) U/L ALT (7-52) U/L Alkaline Phosphatase (34-104) U/L Troponin I High Sens (0-14) pg/ml Total Protein (6.0-8.3) gm/dl Albumin (3.4-5.0) gm/dl Globulin (2.5-4.0) gm/dl Albumin/Globulin Ratio (0.9-2) Procalcitonin (0-0.5) ng/ml Random Cortisol mcg/dl Urine Color Urine Appearance (Clear) Urine pH (4.5-7.5) Ur Specific [place] (1.000-1.030) Urine Protein (Negative) Urine Glucose (UA) (Negative) Urine Ketones (Negative) Urine Blood (Negative) Urine Nitrite (Negative) Urine Bilirubin (Negative) Urine Urobilinogen (Negative) Ur Leukocyte Esterase (Negative) Urine RBC (0-4) /hpf Urine WBC (0-5) /hpf Ur Epithelial Cells (0-5) /lpf Urine Bacteria (Negative) Hyaline Casts (0-5) /lpf Nasal Screen MRSA (PCR) (Negative) Hepatitis A IgM Ab Hep Bs Antigen Hep Bs Ag Confirmation Hep B Core IgM Ab Hepatitis C Ab (EIA) 01/05/23 01/05/23 01/05/23 Range/Units 11:31 11:19 10:13 WBC (4.8-10.8) K/ul RBC (4.20-5.40) M/uL Hgb (12.0-16.0) g/dl Hct (37.0-47.0) % MCV (80.0-100.0) fL MCH (25.0-34.0) pg MCHC (32.0-36.0) g/dL RDW Std Deviation (36.4-46.3) fL RDW Coeff of Shahrzad (11.5-14.5) % Plt Count (130-400) K/uL MPV (9.4-12.4) fL Immature Gran % (Auto) % Neut % (Auto) % Lymph % (Auto) % [place] % (Auto) % Eos % (Auto) % Baso % (Auto) % Neut # (Auto) (1.40-6.50) K/uL Lymph # (Auto) (1.20-3.40) K/uL [place] # (Auto) (0.11-0.59) K/uL Eos # (Auto) (0.00-0.50) K/uL Baso # (Auto) (0.00-0.20) K/uL Immature Gran # (Auto) (0.01-0.20) K/uL Absolute Nucleated RBC (0.00-0.12) K/uL Nucleated RBC % (auto) % Polychromasia Anisocytosis Echinocytes ABG pH 7.34 L (7.35-7.45) ABG pCO2 39 (35-46) mmHg ABG pO2 102 H (80-95) mmHg ABG HCO3 21 (19-24) mmol/L ABG O2 Saturation 98.1 H (90-95) % ABG Base Excess -4.4 (-9-1.8) mEq/L Jimmie Test Pos (Pos) Oxygen Given 2L Sodium (136-145) mmol/L Potassium 5.2 H (3.5-5.1) mmol/L Chloride (98-107) mmol/L Carbon Dioxide (21-32) mmol/L Anion Gap (3-11) BUN (6-23) mg/dl Creatinine (0.6-1.2) mg/dl Est Cr Clr Drug Dosing ml/min Est GFR ( Amer) ml/min Est GFR (Non-Af Amer) ml/min BUN/Creatinine Ratio (10-20) Glucose (70-99(Fasting)) mg/dl POC Glucose (70-99) mg/dl Lactate (0.4-2.0) mmol/L Calcium (8.6-10.3) mg/dl Phosphorus (2.5-4.9) mg/dl Magnesium (1.7-2.4) mg/dl Total Bilirubin (0.2-1.0) mg/dl AST (13-39) U/L ALT (7-52) U/L Alkaline Phosphatase (34-104) U/L Troponin I High Sens (0-14) pg/ml Total Protein (6.0-8.3) gm/dl Albumin (3.4-5.0) gm/dl Globulin (2.5-4.0) gm/dl Albumin/Globulin Ratio (0.9-2) Procalcitonin (0-0.5) ng/ml Random Cortisol mcg/dl Urine Color Urine Appearance (Clear) Urine pH (4.5-7.5) Ur Specific [place] (1.000-1.030) Urine Protein (Negative) Urine Glucose (UA) (Negative) Urine Ketones (Negative) Urine Blood (Negative) Urine Nitrite (Negative) Urine Bilirubin (Negative) Urine Urobilinogen (Negative) Ur Leukocyte Esterase (Negative) Urine RBC (0-4) /hpf Urine WBC (0-5) /hpf Ur Epithelial Cells (0-5) /lpf Urine Bacteria (Negative) Hyaline Casts (0-5) /lpf Nasal Screen MRSA (PCR) (Negative) Hepatitis A IgM Ab Pending Hep Bs Antigen Pending Hep Bs Ag Confirmation Pending Hep B Core IgM Ab Pending Hepatitis C Ab (EIA) Pending 01/05/23 01/05/23 Range/Units 10:13 08:58 WBC (4.8-10.8) K/ul RBC (4.20-5.40) M/uL Hgb (12.0-16.0) g/dl Hct (37.0-47.0) % MCV (80.0-100.0) fL MCH (25.0-34.0) pg MCHC (32.0-36.0) g/dL RDW Std Deviation (36.4-46.3) fL RDW Coeff of Shahrzad (11.5-14.5) % Plt Count (130-400) K/uL MPV (9.4-12.4) fL Immature Gran % (Auto) % Neut % (Auto) % Lymph % (Auto) % [place] % (Auto) % Eos % (Auto) % Baso % (Auto) % Neut # (Auto) (1.40-6.50) K/uL Lymph # (Auto) (1.20-3.40) K/uL [place] # (Auto) (0.11-0.59) K/uL Eos # (Auto) (0.00-0.50) K/uL Baso # (Auto) (0.00-0.20) K/uL Immature Gran # (Auto) (0.01-0.20) K/uL Absolute Nucleated RBC (0.00-0.12) K/uL Nucleated RBC % (auto) % Polychromasia Anisocytosis Echinocytes ABG pH (7.35-7.45) ABG pCO2 (35-46) mmHg ABG pO2 (80-95) mmHg ABG HCO3 (19-24) mmol/L ABG O2 Saturation (90-95) % ABG Base Excess (-9-1.8) mEq/L Jimmie Test (Pos) Oxygen Given Sodium (136-145) mmol/L Potassium (3.5-5.1) mmol/L Chloride (98-107) mmol/L Carbon Dioxide (21-32) mmol/L Anion Gap (3-11) BUN (6-23) mg/dl Creatinine (0.6-1.2) mg/dl Est Cr Clr Drug Dosing ml/min Est GFR ( Amer) ml/min Est GFR (Non-Af Amer) ml/min BUN/Creatinine Ratio (10-20) Glucose (70-99(Fasting)) mg/dl POC Glucose 159 H (70-99) mg/dl Lactate 3.0 H* (0.4-2.0) mmol/L Calcium (8.6-10.3) mg/dl Phosphorus (2.5-4.9) mg/dl Magnesium (1.7-2.4) mg/dl Total Bilirubin (0.2-1.0) mg/dl AST (13-39) U/L ALT (7-52) U/L Alkaline Phosphatase (34-104) U/L Troponin I High Sens (0-14) pg/ml Total Protein (6.0-8.3) gm/dl Albumin (3.4-5.0) gm/dl Globulin (2.5-4.0) gm/dl Albumin/Globulin Ratio (0.9-2) Procalcitonin (0-0.5) ng/ml Random Cortisol mcg/dl Urine Color Urine Appearance (Clear) Urine pH (4.5-7.5) Ur Specific [place] (1.000-1.030) Urine Protein (Negative) Urine Glucose (UA) (Negative) Urine Ketones (Negative) Urine Blood (Negative) Urine Nitrite (Negative) Urine Bilirubin (Negative) Urine Urobilinogen (Negative) Ur Leukocyte Esterase (Negative) Urine RBC (0-4) /hpf Urine WBC (0-5) /hpf Ur Epithelial Cells (0-5) /lpf Urine Bacteria (Negative) Hyaline Casts (0-5) /lpf Nasal Screen MRSA (PCR) (Negative) Hepatitis A IgM Ab Hep Bs Antigen Hep Bs Ag Confirmation Hep B Core IgM Ab Hepatitis C Ab (EIA) Medications Administered Current Inpatient Medications Acetaminophen (Acetaminophen 500 Mg Tab) 500 mg PO Q6H PRN PRN Reason: fever/pain Stop: 02/04/23 02:04 Albuterol (Albut/Ipratrop 3mg/0.5mg Neb 3 Ml Vial) 3 ml INH Q4 PRN; Protocol PRN Reason: Shortness Of Breath Or Wheezing Stop: 02/04/23 12:07 Last Admin: 01/05/23 19:55 Dose: 3 ml Aspirin (Aspirin 81 Mg Ectab) [facility] [place] Stop: 02/04/23 08:59 Last Admin: 01/05/23 08:49 Dose: 81 mg Buspirone HCl (Buspirone 15 Mg Tab) 15 mg PO BID FABIAN Stop: 02/04/23 08:59 Last Admin: 01/05/23 21:21 Dose: 15 mg Clopidogrel Bisulfate (Clopidogrel Bisulfate 75 Mg Tab) 75 mg PO QAM FABIAN Stop: 02/04/23 08:59 Last Admin: 01/05/23 08:54 Dose: 75 mg Dextrose (Dextrose 50% 50 Ml Syringe) 25 - 50 ml IV UD PRN; Protocol PRN Reason: Hypoglycemia Protocol Stop: 02/04/23 06:56 Docusate Sodium (Docusate Sodium Syrup 100 Mg/10 Ml Udc) 50 mg PO HS [facility]1983 Stop: 02/04/23 20:59 Last Admin: 01/05/23 21:37 Dose: Not Given Duloxetine HCl (Duloxetine Hcl 30 Mg Cap) 30 mg PO AMHS FABIAN Stop: 02/04/23 08:59 Last Admin: 01/05/23 21:20 Dose: 30 mg Enoxaparin Sodium (Enoxaparin Inj 40 Mg/0.4 Ml Syr) 40 mg SQ QAM [facility]1983 Stop: 02/04/23 08:59 Last Admin: 01/05/23 13:52 Dose: 40 mg Fluconazole (Fluconazole 100 Mg Tab) 200 mg PO QAM [facility]1983 Stop: 01/07/23 19:59 Last Admin: 01/05/23 21:20 Dose: 200 mg Fluticasone Furoate (Fluticasone Furoate 100mcg 14 Puffs/Inhaler) 1 puffs INH DAILY [facility], [facility]; Protocol Stop: 02/04/23 08:59 Last Admin: 01/05/23 20:06 Dose: Not Given Glucagon (Glucagon For Inj 1 Mg Vial) 1 mg SQ UD PRN; Protocol PRN Reason: Hypoglycemia Protocol Stop: 02/04/23 06:56 Glucose (Glucose 10 Tab/Tube) 4 - 8 tab PO UD PRN; Protocol PRN Reason: Hypoglycemia Treatment Stop: 02/04/23 06:56 Glucose (Glucose 40% Gel 15 Gm Tube) 15 - 30 gm PO UD PRN; Protocol PRN Reason: Hypoglycemia Protocol Stop: 02/04/23 06:56 Promethazine HCl 6.25 mg/ (Sodium Chloride) 50.25 mls @ 201 mls/hr IV Q6H PRN PRN Reason: Nausea And Vomiting Stop: 02/04/23 02:04 Albumin Human (Albumin 25%) 25 gm in 100 mls @ 50 mls/hr IV Q8H [facility] Stop: 01/08/23 06:29 Last Infusion: 01/06/23 06:18 Dose: Infused Sodium Chloride (Nss) 500 mls @ 80 mls/hr IV .[id number] FABIAN Stop: 02/04/23 15:44 Last Admin: 01/06/23 06:23 Dose: 80 mls/hr Piperacillin Sod/Tazobactam (Sod 4.5 gm/ Dextrose) 100 mls @ 25 mls/hr IV Q8H [facility]; Protocol Stop: 01/08/23 00:59 Last Infusion: 01/06/23 05:48 Dose: Infused Norepinephrine Bitartrate (Levophed/D5w) 4 mg in 250 mls @ 14.344 mls/hr IV .[id number] [facility], [facility]; Protocol Stop: 02/05/23 02:59 Last Admin: 01/06/23 04:01 Dose: 0.05 mcg/kg/min, 14.3 mls/hr Insulin Aspart (Insulin Aspart Per Unit Charge) 0 units SC ACHS [facility]1983 Stop: 02/04/23 06:56 Last Admin: 01/05/23 20:06 Dose: Not Given Lactobacillus Acidophilus (Advanced Probiotic 1250 Mg Capsule) 2 cap PO DAILY FABIAN Stop: 02/04/23 08:59 Last Admin: 01/05/23 10:17 Dose: 2 cap Lidocaine (Lidocaine 5% 1 Patch) 1 patch TD QAM [facility]1983 Stop: 02/04/23 01:59 Last Admin: 01/05/23 02:42 Dose: 1 patch Loratadine (Loratadine 10 Mg Tab) 10 mg PO QAM [facility]1983 Stop: 02/04/23 08:59 Last Admin: 01/05/23 08:54 Dose: 10 mg Miconazole Nitrate (Miconazole Nitrate 2% Vag Cr 45 Gm Tube) 1 appln PV HS [facility]1983 Stop: 02/04/23 20:59 Last Admin: 01/05/23 21:39 Dose: 1 appln Miscellaneous (Remove Lidoderm Patch) 1 each N/A PM [facility] Stop: 02/04/23 13:59 Last Admin: 01/05/23 17:06 Dose: 1 each Miscellaneous (Remove Nicoderm Patch) 1 each N/A DAILY@0859 [facility] Stop: 02/04/23 08:58 Last Admin: 01/05/23 09:00 Dose: 1 each Miscellaneous (Carbohydrates For Hypoglycemia ) 15 - 30 gm PO UD PRN PRN Reason: Hypoglycemia Protocol Stop: 02/04/23 06:56 Nicotine (Nicotine 14 Mg/24 Hr Patch) 14 mg TD QAM [facility] Stop: 02/04/23 08:59 Last Admin: 01/05/23 08:56 Dose: Not Given Oxycodone HCl (Oxycodone Hcl Ir 5 Mg Tab (Immediate Release)) 5 mg PO Q6H PRN PRN Reason: pain Stop: 01/19/23 06:56 Pantoprazole Sodium (Pantoprazole 40 Mg Tab) 40 mg PO DAILY [facility] Stop: 02/04/23 08:59 Last Admin: 01/05/23 08:49 Dose: 40 mg Polyethylene Glycol (Polyethylene (Miralax) 17 Gm Pack) 17 gm PO DAILY FABIAN Stop: 02/04/23 11:44 Last Admin: 01/05/23 13:52 Dose: 17 gm Sodium Chloride (Sodium Chlor 7% 4 Ml Neb) 4 ml INH BIDR FABIAN Stop: 02/04/23 08:59 Last Admin: 01/05/23 19:55 Dose: 4 ml Sodium Zirconium Cyclosilicate (Sodium Zirconium Cyclosilicate 10 Gm Packet) 10 gm PO TID@0700,1400,2100 FABIAN Stop: 01/07/23 07:01 Last Admin: 01/05/23 21:33 Dose: Not Given Sucralfate (Sucralfate 1 Gm Tab) 1 gm PO ACHS FABIAN Stop: 02/04/23 07:29 Last Admin: 01/05/23 21:21 Dose: 1 gm Umeclidinium/Vilanterol (Umeclidinium/Vilanterol 62.5/25mcg 7 Puffs/Inhaler) 1 puffs INH DAILY FABIAN; Protocol Stop: 02/04/23 08:59 Last Admin: 01/05/23 20:06 Dose: Not Given
--- NOTE | 2023-01-06 07:23 | Communication Note ---
Date of Service: January 06, 2023 Last night was notified that patient blood pressure is low. Gave 500cc fluid bolus sbp still in 70's.Patient awake and alert. doesn't seemed to be in dist ress.Gave another 1lt bolus but about half way through bolus sbp in 60's. Notified ICU and patient was transferred to ICU for pressor support.
--- NOTE | 2023-01-06 07:49 | Nephrology Consultation ---
Date of Consultation January 06, 2023 Assessment & Plan (1) Hyperkalemia: mild; in the setting of PRAKASH, elevated and climbing lactate, prior to admission K sparing diuretics and K supplements. she had 2 rounds of IV insulin yesterday. CK and phos wnl on admission and today respectively. -started a low k diet -started on lokelma today > will monitor as this may worsen fluid overload but should help lower potassium faster than veltassa -consider lasix ideally not before tomorrow if feasible -continue treatment of septic shock which is likeliest cause of lactate elevation>> concern she may have dying tissue somewhere driving K elevation (though phos and calcium and CK all OK) as she took minimal medication since and prior to admission to explain > f/u pending cxs and inf dzs recs; treat PRAKASH >added repeat cmp and ammonia level for 1500 (2) PRAKASH (acute kidney injury): Stage 2 nonoliguric PRAKASH w/ baseline creatinine 0.7-0.8. multifactorial from ischemic ATN d/t contrast nephropathy in the setting of septic shock/hypotension and outpatient diuretics > would like to hold off on giving lasix until tomorrow if feasible (3) Transaminitis: w/ new liver cirrhosis; primary team evaluating History of Present Illness Reason for Consultation: hyperkalemia Requesting Physician: Dr Perez Attending Physician: Edy Perez MD History of Present Illness 72 y/o F whom I'm asked to see for hyperkalemia was admitted yesterday for severe sepsis attributed to a UTI w/ a presenting K of 5.7. PMH includes HFpEF (EF 55 to 60%, TTE 2022), valvular heart disease (severe MR, mild TR), CAD status post stent, PVD status post several 2022 procedures as below, chronic mesenteric ischemia w/ superior mesenteric s/p 04/2022 stent and celiac artery stenoses, BL carotid stenosis s/p remote CEA 2004 w/ redo 2008, L hemiplegia and hemiparesis after a stroke, HTN, COPD w/ hx of tobacco abuse quit October 2022, depression/anxiety. hyperlipidemia, DM 2 on oral medications, chronic anemia (baseline hemoglobin 8- 9), mood disorder, hx of bladder repair. Pt is s/p L femoral-popliteal artery revascularization with angioplasty April 2022 and s/p September 2022 R femoral-popliteal artery revascularization with angioplasty. She also underwent September 2022 L iliac artery revascularization with angioplasty. Ad[place] [facility] [place] for suprapubic abscess from the left to right femoral-femoral bypass s/p washout and wound VAC placement November 04 followed by November 16 repeat debridement of dorsal gangrene of right third toe s/p amputa tion. Postoperatively patient had a PEA arrest requiring 30 seconds of chest compressions and c/b cardiogenic shock. Cardiac cath November 10 showed multivessel disease and underwent LM/LAD stent on November 12. She had Covid on 11/22, had a short course of decadron and remdesivir and was d/c home on home 02 2L w/ ambulation and 3L overnight. She was d/c home on IV zosyn oral diflucan to run though 12/16 after intraoperative wound cultures grew 1 colony Kayla parasilopsis. She had a wound vac in place over suprapubic wound on arrival to [facility] this admission. Vac removed per hospitalist after consultation w/ wound mgt team. Admitted here 12/13-12/29 for respiratory failure attributed to HF/COPD exacerbation. She takes spironolactone 12.5 mg daily, lasix 20 mg daily; has orders for prn lasix if gaining edema and only if takes prn lasix does she take potassium 20 mEq daily. This has happened once in past week Pt fell in her bathroom 3 days prior to presentation after losing her balance. Daughter reports pt had mild confusion on 01/02 which then worsened through 01/04 when decision was made to bring her in. SBP in 70s on presentation and started on ceftriaxone/NS in ER. no worse breathing or cough prior to fall; no report of weight gain. Cultures are NGTD. CT imaging w/ IV contrast showed probably nondisplaced sacrococcygeal fracture and anasarca. Also w/ transaminit is for which work up underway. overnight hypotension recurred w/ worsening abdominal pain and she was transferred to ICU for pressor support: she is currently on low dose norepi and NS at 80 mL /hr. Pt is lethargic; she moans and chatters incoherently but cannot give reproducible hx or ROS. her daughter supplies many details of her hx. Allergies Allergy/AdvReac Type Severity Reaction Status Date / Time methadone Allergy Severe "couldn't Verified 12/13/22 16:53 swallow/eyes coming out of head" nickel Allergy Severe swelling Verified 12/13/22 16:53 and infections nitroglycerin Allergy Intermediate DECREASED Verified 12/13/22 16:53 BP propoxyphene Allergy Intermediate edema to Verified 12/13/22 16:53 face/lips/tongue diclofenac Allergy Mild Rash Verified 12/13/22 16:53 hydrocodone Allergy Mild "severe Verified 12/13/22 16:53 constipation" levofloxacin [From Levaquin] Allergy Mild nausea/vomi Verified 12/13/22 16:53 ting Penicillins Allergy Mild severe Verified 12/13/22 16:53 diarrhea/rash sitagliptin [From Januvia] Allergy Mild rash Verified 03/21/19 18:20 "blood blisters" strawberry Allergy Mild Diarrhea Verified 03/21/19 18:20 Home Medications Medication Instructions Recorded Confirmed Type aspirin 81 mg tablet,delayed 81 mg PO QAM 11/06/18 01/04/23 History release atorvastatin 40 mg tablet 40 mg PO QPM 11/06/18 01/04/23 History buspirone 15 mg tablet 15 mg PO BID 11/06/18 01/04/23 History clopidogrel 75 mg tablet 75 mg PO QAM 11/06/18 01/04/23 History glipizide 10 mg tablet 10 mg PO QAM 11/06/18 01/04/23 History loratadine 10 mg tablet 10 mg PO QAM 11/06/18 01/04/23 History albuterol sulfate 90 mcg/actuation 2 puff inhalation Q4 PRN Shortness 11/16/18 01/04/23 History aerosol inhaler (Ventolin HFA) Of Breath dicyclomine 10 mg capsule 10 mg PO TID PRN Abdominal Pain 01/11/19 01/04/23 History calcium carbonate 600 mg calcium 600 mg PO BID 03/21/19 01/04/23 History (1,500 mg) tablet (Calcium) cholecalciferol (vitamin D3) 125 5,000 unit PO BID 03/21/19 01/04/23 History mcg (5,000 unit) tablet ondansetron 4 mg disintegrating 4 mg PO Q8H PRN Nausea 03/21/19 01/04/23 History tablet pantoprazole 40 mg tablet,delayed 40 mg PO DAILY 03/21/19 01/04/23 History release sucralfate 1 gram tablet (Carafate) 1 g PO ACHS 03/21/19 01/04/23 History oxycodone 5 mg tablet 5 mg PO Q6H PRN pain #14 tabs 10/25/19 01/04/23 Rx Bifidobacterium infantis 4 mg 4 mg PO DAILY 12/13/22 01/04/23 History capsule (Align) ascorbic acid (vitamin C) 500 mg 500 mg PO DAILY 12/13/22 01/04/23 History tablet (Vitamin C) docusate sodium 50 mg capsule 50 mg PO HS 12/13/22 01/04/23 History duloxetine 30 mg capsule,delayed 30 mg PO AMHS 12/13/22 01/04/23 History release fluticasone fur. 100 mcg-umeclid 1 inh inhalation DAILY 12/13/22 01/04/23 History 62.5 mcg-vilant 25 mcg inhalat.powder (Trelegy Ellipta) glipizide 10 mg tablet 5 mg PO QPM 12/13/22 01/04/23 History ipratropium 0.5 mg-albuterol 3 mg 3 ml inhalation Q4 PRN Shortness 12/13/22 01/04/23 History (2.5 mg base)/3 mL nebulization Of Breath Or Wheezing soln lidocaine 4 % topical patch 1 patch topical DAILY PRN Pain 12/13/22 01/04/23 History menthol 0.44 %-zinc oxide 20.6 % 1 applic topical DIRECTED PRN 12/13/22 01/04/23 History topical ointment (Calmoseptine) Sores on bottom nicotine 14 mg/24 hr daily 1 patch transdermal .DAILY 12/13/22 01/04/23 History transdermal patch DIRECTED nystatin 100,000 unit/gram topical 1 applic topical TID 12/13/22 01/04/23 History powder (Nyamyc) potassium chloride 20 mEq 20 meq PO .DAILY UD 12/13/22 01/04/23 History tablet,extended release(part/cryst) zinc 50 mg tablet 50 mg PO DAILY 12/13/22 01/04/23 History cyclobenzaprine 5 mg tablet 5 mg PO BID PRN muscle spasm #14 12/22/22 01/04/23 Rx tabs furosemide 20 mg tablet 20 mg PO QAM #30 tabs 12/22/22 01/04/23 Rx metoprolol succinate 25 mg 25 mg PO QAM 30 days #30 tabs 12/22/22 01/04/23 Rx tablet,extended release 24 hr spironolactone 25 mg tablet 12.5 mg PO DAILY 30 days #15 tabs 12/22/22 01/04/23 Rx nicotine 7 mg/24 hr daily 14 mg transdermal QAM #7 ea 12/24/22 01/04/23 Rx transdermal patch sodium chloride 7 % for 4 ml inhalation BID 01/04/23 01/04/23 History nebulization Patient History Medical History Anemia Anxiety [place] esophagus COPD (chronic obstructive pulmonary disease) inhaler prn Coronary artery disease, occlusive Critical limb ischemia with history of revascularization of same extremity RLE CVA (cerebral vascular accident) 2008--slight left side weakness (no assistive devices)--follows with Dr. 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 not have a surgeon chief Obesity (BMI 30.0-34.9) On anticoagulant therapy plavix daily Osteoarthritis PVD (peripheral vascular disease) Right upper lobe pulmonary nodule Surgical History H/O: hysterectomy History of appendectomy History of bilateral cataract extraction History of bilateral tubal ligation History of bronchoscopy History of cardiac cath x2 both @ [place]--2000 with 1 stent/2003--no stent, instead fem-pop bypass History of carotid endarterectomy 2009 on right side History of colonoscopy with polypectomy History of dilatation and curettage x3 History of endoscopic sinus surgery History of esophagogastroduodenoscopy (EGD) History of heart artery stent x1 before 2000? @ [place] History of repair of right rotator cuff x2 History of tooth extraction most teeth Status post femoral-popliteal bypass surgery 2004 Status post femoropopliteal bypass surgery 11/06/[address] Jara---thrombectomy/Femoral-femoral bypass Family History Sister Family history of diabetes mellitus Family history of esophageal cancer Family hx of colon cancer Sister Family history of diabetes mellitus Sister Family history of diabetes mellitus Sister Family history of diabetes mellitus Sister Family history of diabetes mellitus Sister Family history of diabetes mellitus Sister Family history of diabetes mellitus Brother Family history of diabetes mellitus Brother Family history of diabetes mellitus Brother Family history of diabetes mellitus Other Diabetes No family history of adverse response to anesthesia Stroke Social History Smoking Status: Unknown if ever smoked Tobacco Type: Cigarettes Cigarettes Per Day: 20-40; Second Hand Exposure: Yes; Do You Dip or Chew Tobacco: No; Hx Alcohol Use: No Hx Substance Use: No Preferred Language: German Communication Ability: Effective Director Of Learning Required: No Beliefs That Will Affect Care: None Current Living Situation: Family Current Living Situation Comment: Lives with daughter Feels Safe at Home: No Is there a partner from a previous relationship who is making you feel unsafe now?: No Any Concerns about Your Family Situation: No Would You Like to Speak to Someone About Your Situation: No Assistive Devices: Bedside Commode, Oxygen - Continuous, Stair Lift and Walker Review of Systems Review of Systems: Unobtainable due to reduced consciousness Physical Exam Constitutional: well developed, well nourished, + obese, + altered mental status and + lethargic Eyes: EOM intact bilaterally (but eyes closed most of visit) ENMT: Ears: no external ear abnormality Nose: no external nose abnormality Mouth: + dry oral mucous membranes Neck: no nuchal rigidity Respiratory: normal respiratory effort Auscultation: + diminished lung sounds Cardiovascular: Rate/Rhythm: regular rate and regular rhythm Heart Sounds: + murmur Extremities: no edema Gastrointestinal (Abdomen): Inspection/Auscultation: normal bowel sounds, + significant pannus and + abdominal surgical scar (1 x 2 x min 4 cm wound sl R off center suprapubic on scar); abdomen not distended and no abdominal edema Percussion/Palpation: + abdomen tender (BL lower quadrants, R>L) and abdomen soft; no abdominal mass, no ascites, no dullness to percussion and no fluid wave Musculoskeletal: Extremities: + abnormal strength Skin: no rashes, warm and dry wound as above Neurologic: robles, incoherent and limited speech, no tremor Genitourinary: lind w/ some torrez urine Results & Data Vital Signs (Past 12 Hours) Vital Signs Temp Pulse Pulse Resp BP BP Pulse Ox 01/06/23 06:31 70 28 H 01/06/23 06:31 122/60 01/06/23 06:30 70 25 H 90 01/06/23 06:16 114/68 01/06/23 06:16 70 20 90 01/06/23 06:15 70 27 H 92 01/06/23 06:01 70 23 89 L 01/06/23 06:01 123/60 01/06/23 06:01 123/60 01/06/23 06:00 70 26 H 82 L 01/06/23 05:46 134/66 01/06/23 05:46 69 26 H 96 01/06/23 05:45 70 26 H 97 01/06/23 05:30 68 15 94 01/06/23 05:30 127/73 01/06/23 05:21 69 25 H 97 01/06/23 05:21 130/50 L 01/06/23 05:15 70 19 97 01/06/23 05:00 69 22 38 L 01/06/23 05:00 103/81 01/06/23 04:52 01/06/23 04:48 37.1 C 01/06/23 04:45 68 27 H 01/06/23 04:32 110/61 01/06/23 04:32 65 20 82 L 01/06/23 04:30 65 17 85 L 01/06/23 04:00 57 L 25 H 01/06/23 04:00 87/49 L 01/06/23 03:59 62/52 L 01/06/23 03:59 57 L 21 01/06/23 03:57 57 L 24 01/06/23 03:45 57 L 25 H 01/06/23 03:31 58 L 28 H 01/06/23 03:31 90/52 L 01/06/23 03:30 57 L 26 H 01/06/23 03:17 96/52 L 01/06/23 03:17 59 L 17 01/06/23 03:15 70 01/06/23 03:00 63 0 L 01/06/23 02:45 64 0 L 01/06/23 02:30 64 0 L 01/06/23 02:17 63 3 L 01/06/23 02:00 59 L 0 L 01/06/23 01:45 65 4 L 01/06/23 01:30 66 0 L 01/06/23 01:15 62 0 L 01/06/23 01:00 66 0 L 01/06/23 00:45 66 0 L 01/06/23 00:30 66 0 L 01/06/23 00:15 60 5 L 01/06/23 00:00 60 0 L 01/05/23 23:45 61 3 L 01/05/23 23:30 60 2 L 01/05/23 23:15 60 0 L 01/05/23 23:00 59 L 0 L 01/05/23 22:45 60 0 L 01/05/23 22:30 59 L 0 L 01/05/23 22:15 61 0 L 01/05/23 22:00 60 0 L 01/05/23 21:45 60 0 L 01/05/23 21:30 64 0 L 01/05/23 21:15 61 2 L 01/05/23 21:00 64 0 L 01/05/23 20:45 66 0 L 01/05/23 20:30 66 0 L 01/05/23 20:15 60 0 L 01/05/23 20:00 61 0 L 01/06/23 02:57 66/52 L 01/06/23 02:38 69/48 L 01/06/23 02:33 68/42 L 01/06/23 02:02 70/42 L 01/06/23 01:53 66/57 L 01/06/23 01:42 60/43 L 01/06/23 01:28 87/48 L 01/06/23 01:12 69/47 L 01/06/23 00:01 36.5 C 65 18 86/52 L 94 01/05/23 21:00 60 01/05/23 21:00 01/05/23 20:13 58 L 16 95 O2 Del Method O2 Flow Rate 01/06/23 06:31 01/06/23 06:31 01/06/23 06:30 Nasal Cannula 3 01/06/23 06:16 01/06/23 06:16 01/06/23 06:15 01/06/23 06:01 01/06/23 06:01 01/06/23 06:01 01/06/23 06:00 01/06/23 05:46 01/06/23 05:46 01/06/23 05:45 01/06/23 05:30 01/06/23 05:30 01/06/23 05:21 01/06/23 05:21 01/06/23 05:15 01/06/23 05:00 01/06/23 05:00 01/06/23 04:52 Nasal Cannula 2 01/06/23 04:48 01/06/23 04:45 01/06/23 04:32 01/06/23 04:32 01/06/23 04:30 01/06/23 04:00 01/06/23 04:00 01/06/23 03:59 01/06/23 03:59 01/06/23 03:57 01/06/23 03:45 01/06/23 03:31 01/06/23 03:31 01/06/23 03:30 01/06/23 03:17 01/06/23 03:17 01/06/23 03:15 01/06/23 03:00 01/06/23 02:45 01/06/23 02:30 01/06/23 02:17 01/06/23 02:00 01/06/23 01:45 01/06/23 01:30 01/06/23 01:15 01/06/23 01:00 01/06/23 00:45 01/06/23 00:30 01/06/23 00:15 01/06/23 00:00 01/05/23 23:45 01/05/23 23:30 01/05/23 23:15 01/05/23 23:00 01/05/23 22:45 01/05/23 22:30 01/05/23 22:15 01/05/23 22:00 01/05/23 21:45 01/05/23 21:30 01/05/23 21:15 01/05/23 21:00 01/05/23 20:45 01/05/23 20:30 01/05/23 20:15 01/05/23 20:00 01/06/23 02:57 01/06/23 02:38 01/06/23 02:33 01/06/23 02:02 01/06/23 01:53 01/06/23 01:42 01/06/23 01:28 01/06/23 01:12 01/06/23 00:01 Nasal Cannula 2.0 01/05/23 21:00 01/05/23 21:00 Nasal Cannula 2 01/05/23 20:13 Nasal Cannula 2 Laboratory Results 01/06/23 03:24 01/06/23 03:24 blood and urine cultures neg/NGTD since admission UA on presentation w/o bacteria, >30 epithelial cells, 1+ LE Diagnostic Findings CT non con AP this am Limitations: Limited evaluation in the absence of contrast. Lung bases: See below. Pleural space: Moderate bilateral pleural effusions with adjacent airspace disease, likely relating to compressive atelectasis. Heart: Cardiomegaly. ABDOMEN: Liver: Cirrhotic morphology of the liver. Gallbladder and bile ducts: Vicarious excretion of contrast in the gallbladder which can be seen with acute renal dysfunction. No calcified stones. No ductal dilation. Pancreas: Unremarkable. No ductal dilation. Spleen: Unremarkable. No splenomegaly. Adrenals: Unremarkable. No mass. Kidneys and ureters: Persistent contrast nephrograms. Findings can be seen with acute tubular necrosis. No evidence of radiopaque renal calculi or signs of collecting system dilatation. Stomach and bowel: No evidence of bowel obstruction. No mucosal thickening. PELVIS: Appendix: Normal appendix. Bladder: Diffuse bladder wall thickening with adjacent perivesicular stranding. Findings may relate to cystitis. Consider correlation with laboratory values. No stones. Reproductive: Unremarkable as visualized. ABDOMEN and PELVIS: Intraperitoneal space: Moderate mesenteric ascites. No free air. Bones/joints: Degenerative changes in the spine. No acute fracture. No dislocation. Soft tissues: Anasarca. Vasculature: Atherosclerotic disease. Nitinol stent within the superior mesenteric artery. No abdominal aortic aneurysm. Lymph nodes: Unremarkable. No enlarged lymph nodes. IMPRESSION: 1. Limited evaluation in the absence of contrast. 2. Diffuse bladder wall thickening with adjacent perivesicular stranding. Findings may relate to cystitis. Consider correlation with laboratory values. 3. Persistent contrast nephrograms. Findings can be seen with acute tubular necrosis. 4. Vicarious excretion of contrast in the gallbladder which can be seen with acute renal dysfunction. 5. Findings consistent with systemic volume overload with moderate bilateral pleural effusions, moderate mesenteric ascites, and anasarca. 6. Cirrhotic morphology of the liver. 7. Incidental findings as described. cxr 1. No pneumothorax following placement of a right internal jugular central line. 2. Cardiomegaly. Slight increase in pulmonary edema. Trace bilateral pleural effusions. 3. A few patchy bilateral opacities which could reflect an infectious process or atelectasis. CT a/p October 2022 (per report and my review) no liver cirrhosis
[2023-01-06] MEDS: SODIUM CHLOR 7% 4 ML NEB INH SCH ×2 (08:04→20:27)
[2023-01-06] MEDS: ALBUT/IPRATROP 3MG/0.5MG NEB 3 ML VIAL INH PRN (08:04)
[2023-01-06] MEDS: SODIUM ZIRCONIUM CYCLOSILICATE 10 GM PACKET PO SCH ×3 (08:18→23:01)
[2023-01-06] MEDS: INSULIN ASPART PER UNIT CHARGE SC SCH ×4 (08:19→21:18)
[2023-01-06] MEDS: CLOPIDOGREL BISULFATE 75 MG TAB PO SCH (08:19)
[2023-01-06] MEDS: ASPIRIN 81 MG ECTAB PO SCH (08:19)
[2023-01-06] MEDS: PANTOprazole 40 MG TAB PO SCH (08:20)
[2023-01-06] MEDS: ADVANCED PROBIOTIC 1250 MG CAPSULE PO SCH (08:20)
[2023-01-06] MEDS: NICOTINE 14 MG/24 HR PATCH TD SCH (08:21)
[2023-01-06] MEDS: LORATADINE 10 MG TAB PO SCH (08:21)
[2023-01-06] MEDS: FLUCONAZOLE 100 MG TAB PO SCH (08:28)
[2023-01-06] MEDS: POLYETHYLENE (MIRALAX) 17 GM PACK PO SCH (08:30)
[2023-01-06] MEDS: ENOXAPARIN INJ 40 MG/0.4 ML SYR SQ SCH (08:36)
[2023-01-06] MEDS: SUCRALFATE 1 GM TAB PO SCH ×4 (08:38→20:49)
[2023-01-06] MEDS: oxyCODONE HCL IR 5 MG TAB (IMMEDIATE RELEASE) PO PRN (09:12)
[2023-01-06] MEDS: busPIRone 15 MG TAB PO SCH ×2 (09:12→20:47)
--- NOTE | 2023-01-06 09:32 | Cardiology Progress Note ---
Date of Service January 06, 2023 Assessment & Plan (1) Severe sepsis: (2) Stress fracture of sacrococcygeal region: (3) Elevated troponin: (4) Severe mitral regurgitation: (5) ASCVD (arteriosclerotic cardiovascular disease): Plan Continue dual antiplatelet therapy without interruption given the recent drug- eluting stent implantation to the left main coronary artery Resume beta-ragini therapy with metoprolol succinate as blood pressure permits. Continue moderate intensity statin therapy with atorvastatin 40 mg/day Furosemide, spironolactone and potassium chloride to remain on hold. Admission and Anticipated Discharge Date Admission Date: January 05, 2023 Supervising Physician Co-Signing Physician Notes Supervising Physician Attestation: I have personally performed a history and physical examination on the patient. I agree with the physician housekeeper/laundry assistant's findings and plan as documented with the following additions. Subjective: Patient seen in room 108, having been transferred to the intensive care unit overnight due to hypotension. Patient confused, unable to offer subjective input. Her daughter is at the bedside. Daughter notes recent subacute worsening mental status at home. Exam: Cardiovascular: Regular rhythm, 1/6 systolic murmur, no edema Extremities: Feet examined, no gross evidence of ischemia Abdomen: Nontender on palpation Data: EKG performed 01/04/2023 reveals sinus rhythm at 63 bpm with diffuse T wave flattening. Relatively unchanged compared to 12/13/2022 Assessment and Plan: 1)Hypotension, with lactic acidosis, lactate level peaked at 7.5 this morning at 3:24 AM, down to 5.8 on most recent measurement, presumed sepsis 2)Hyperkalemia 3)Coronary heart disease -Agree with norepinephrine for blood pressure support -Antibiotics: Zosyn, fluconazole -Llanos catheter in place -Potassium has trended down from 5.7->5.4 with fluids, norepinephrine support, holding spironolactone Nnamdi Martell, Subjective Patient seen and examined. Chart, medications, and telemetry reviewed. Overnight events noted -> marked hypotension despite fluid resuscitation, septic shock from UTI. Transferred to the ICU, on Levophed Afebrile. Most recent BP 123/72. Heart rate 70. SPO2 93% on 2 L/min via NC. Telemetry: Sinus throughout, currently 70 bpm Complaints: Back pain. No chest pain or discomfort. No difficulty breathing. No worsening orthopnea, PND, or peripheral edema. Review of Systems Review of Systems: A complete and accurate review of systems was unable to be obtained due to the patient's condition. Physical Exam Physical Exam: General: Alert to person and place. HENT: Normocephalic. Atraumatic. Eyes: PER. Conjunctiva pink, sclera pale. Neck: Right IJ catheter. Heart: Regular at 66 bpm. Systolic murmur. No diastolic murmur. Lungs: Clear to auscultation anteriorly and laterally. Abdomen: +BS. + Bruits. Soft. Nontender. Extremities: No peripheral edema. Limited neurological examination is without focal deficits. Pulses: Posterior tibial=0/4. Results & Data Vital Signs (Past 12 Hours) Vital Signs Temp Pulse Pulse Resp BP BP Pulse Ox 01/06/23 08:45 70 24 01/06/23 08:45 123/72 01/06/23 08:31 131/60 01/06/23 08:31 70 20 01/06/23 08:30 70 18 01/06/23 08:15 77/50 L 01/06/23 08:15 69 23 01/06/23 08:01 123/47 L 01/06/23 08:01 71 23 01/06/23 08:00 69 18 01/06/23 07:46 120/55 L 01/06/23 07:46 71 25 H 01/06/23 07:31 70 20 01/06/23 07:31 120/49 L 01/06/23 07:30 70 20 93 01/06/23 07:16 69 22 01/06/23 07:16 100/81 01/06/23 07:08 122/48 L 01/06/23 07:08 69 23 01/06/23 07:00 70 23 01/06/23 08:05 108 H 20 01/06/23 08:48 01/06/23 07:49 70 01/06/23 06:31 70 28 H 01/06/23 06:31 122/60 01/06/23 06:30 70 25 H 90 01/06/23 06:16 114/68 01/06/23 06:16 70 20 90 01/06/23 06:15 70 27 H 92 01/06/23 06:01 70 23 89 L 01/06/23 06:01 123/60 01/06/23 06:01 123/60 01/06/23 06:00 70 26 H 82 L 01/06/23 05:46 134/66 01/06/23 05:46 69 26 H 96 01/06/23 05:45 70 26 H 97 01/06/23 05:30 68 15 94 01/06/23 05:30 127/73 01/06/23 05:21 69 25 H 97 01/06/23 05:21 130/50 L 01/06/23 05:15 70 19 97 01/06/23 05:00 69 22 38 L 01/06/23 05:00 103/81 01/06/23 04:52 01/06/23 04:48 37.1 C 01/06/23 04:45 68 27 H 01/06/23 04:32 110/61 01/06/23 04:32 65 20 82 L 01/06/23 04:30 65 17 85 L 01/06/23 04:00 57 L 25 H 01/06/23 04:00 87/49 L 01/06/23 03:59 62/52 L 01/06/23 03:59 57 L 21 01/06/23 03:57 57 L 24 01/06/23 03:45 57 L 25 H 01/06/23 03:31 58 L 28 H 01/06/23 03:31 90/52 L 01/06/23 03:30 57 L 26 H 01/06/23 03:17 96/52 L 01/06/23 03:17 59 L 17 01/06/23 03:15 70 01/06/23 03:00 63 0 L 01/06/23 02:45 64 0 L 01/06/23 02:30 64 0 L 01/06/23 02:17 63 3 L 01/06/23 02:00 59 L 0 L 01/06/23 01:45 65 4 L 01/06/23 01:30 66 0 L 01/06/23 01:15 62 0 L 01/06/23 01:00 66 0 L 01/06/23 00:45 66 0 L 01/06/23 00:30 66 0 L 01/06/23 00:15 60 5 L 01/06/23 00:00 60 0 L 01/05/23 23:45 61 3 L 01/05/23 23:30 60 2 L 01/05/23 23:15 60 0 L 01/05/23 23:00 59 L 0 L 01/05/23 22:45 60 0 L 01/05/23 22:30 59 L 0 L 01/05/23 22:15 61 0 L 01/05/23 22:00 60 0 L 01/05/23 21:45 60 0 L 01/06/23 02:57 66/52 L 01/06/23 02:38 69/48 L 01/06/23 02:33 68/42 L 01/06/23 02:02 70/42 L 01/06/23 01:53 66/57 L 01/06/23 01:42 60/43 L 01/06/23 01:28 87/48 L 01/06/23 01:12 69/47 L 01/06/23 00:01 36.5 C 65 18 86/52 L 94 O2 Del Method O2 Flow Rate 01/06/23 08:45 01/06/23 08:45 01/06/23 08:31 01/06/23 08:31 01/06/23 08:30 01/06/23 08:15 01/06/23 08:15 01/06/23 08:01 01/06/23 08:01 01/06/23 08:00 01/06/23 07:46 01/06/23 07:46 01/06/23 07:31 01/06/23 07:31 01/06/23 07:30 Nasal Cannula 2 01/06/23 07:16 01/06/23 07:16 01/06/23 07:08 01/06/23 07:08 01/06/23 07:00 01/06/23 08:05 Nasal Cannula 6 01/06/23 08:48 Nasal Cannula 2 01/06/23 07:49 01/06/23 06:31 01/06/23 06:31 01/06/23 06:30 Nasal Cannula 3 01/06/23 06:16 01/06/23 06:16 01/06/23 06:15 01/06/23 06:01 01/06/23 06:01 01/06/23 06:01 01/06/23 06:00 01/06/23 05:46 01/06/23 05:46 01/06/23 05:45 01/06/23 05:30 01/06/23 05:30 01/06/23 05:21 01/06/23 05:21 01/06/23 05:15 01/06/23 05:00 01/06/23 05:00 01/06/23 04:52 Nasal Cannula 2 01/06/23 04:48 01/06/23 04:45 01/06/23 04:32 01/06/23 04:32 01/06/23 04:30 01/06/23 04:00 01/06/23 04:00 01/06/23 03:59 01/06/23 03:59 01/06/23 03:57 01/06/23 03:45 01/06/23 03:31 01/06/23 03:31 01/06/23 03:30 01/06/23 03:17 01/06/23 03:17 01/06/23 03:15 01/06/23 03:00 01/06/23 02:45 01/06/23 02:30 01/06/23 02:17 01/06/23 02:00 01/06/23 01:45 01/06/23 01:30 01/06/23 01:15 01/06/23 01:00 01/06/23 00:45 01/06/23 00:30 01/06/23 00:15 01/06/23 00:00 01/05/23 23:45 01/05/23 23:30 01/05/23 23:15 01/05/23 23:00 01/05/23 22:45 01/05/23 22:30 01/05/23 22:15 01/05/23 22:00 01/05/23 21:45 01/06/23 02:57 01/06/23 02:38 01/06/23 02:33 01/06/23 02:02 01/06/23 01:53 01/06/23 01:42 01/06/23 01:28 01/06/23 01:12 01/06/23 00:01 Nasal Cannula 2.0 Laboratory Results Cardiac Enzymes 01/05/23 01/06/23 01/06/23 Range/Units 18:54 03:24 03:24 AST 393 H 333 H 335 H (13-39) U/L Troponin I High Sens 19.1 H (0-14) pg/ml CBC 01/05/23 01/06/23 Range/Units 18:53 03:24 WBC 11.96 H 13.11 H (4.8-10.8) K/ul RBC 2.91 L 3.07 L (4.20-5.40) M/uL Hgb 7.5 L 8.1 L (12.0-16.0) g/dl Hct 25.4 L 27.2 L (37.0-47.0) % Plt Count 329 356 (130-400) K/uL Neut # (Auto) 10.37 H (1.40-6.50) K/uL Lymph # (Auto) 1.23 (1.20-3.40) K/uL Mcmullen # (Auto) 1.33 H (0.11-0.59) K/uL Eos # (Auto) 0.02 (0.00-0.50) K/uL Baso # (Auto) 0.03 (0.00-0.20) K/uL Comprehensive Metabolic Panel 01/05/23 01/05/23 01/05/23 Range/Units 10:13 14:54 18:54 Sodium 134 L 132 L (136-145) mmol/L Potassium 5.2 H 5.5 H 5.7 H (3.5-5.1) mmol/L Chloride 100 102 (98-107) mmol/L Carbon Dioxide 22 23 (21-32) mmol/L BUN 31 H 31 H (6-23) mg/dl Creatinine 1.06 1.18 (0.6-1.2) mg/dl Glucose 175 H 160 H (70-99(Fasting)) mg/dl Calcium 9.9 9.4 (8.6-10.3) mg/dl AST 393 H (13-39) U/L ALT 348 H (7-52) U/L Alkaline Phosphatase 384 H (34-104) U/L Total Protein 6.4 (6.0-8.3) gm/dl Albumin 3.8 (3.4-5.0) gm/dl 01/05/23 01/06/23 01/06/23 Range/Units 23:07 03:24 03:24 Sodium 133 L 134 L 133 L (136-145) mmol/L Potassium 5.6 H 5.6 H 5.4 H (3.5-5.1) mmol/L Chloride 101 104 103 (98-107) mmol/L Carbon Dioxide 20 L 17 L 16 L (21-32) mmol/L BUN 35 H 34 H 32 H (6-23) mg/dl Creatinine 1.45 H 1.59 H 1.58 H (0.6-1.2) mg/dl Glucose 155 H 119 H 115 H (70-99(Fasting)) mg/dl Calcium 9.3 8.6 8.5 L (8.6-10.3) mg/dl AST 333 H 335 H (13-39) U/L ALT 308 H 314 H (7-52) U/L Alkaline Phosphatase 346 H 347 H (34-104) U/L Total Protein 6.1 6.0 (6.0-8.3) gm/dl Albumin 3.7 3.7 (3.4-5.0) gm/dl Intake and Output 01/05/23 01/06/23 01/06/23 22:59 06:59 14:59 Intake Total 900 / 2364 1124 / 2364 Output Total 325 / 450 125 / 450 25 / 25 Balance 575 / 1914 999 / 1914 -25 / -25 Intake: IV 700 / 1924 1124 / 1924 Albumin 25% 25 gm In 100 ml @ 100 / 300 100 / 300 50 mls/hr IV Q8H [facility] Rx#: [id number] Piperacillin/Tazobactam 4.5 gm 100 / 200 100 / 200 In Dextrose 5% Mini-B 100 ml @ 25 mls/hr IV Q8H [facility] Rx#: [id number] Sodium Chloride 0.9% 500 ml @ 500 / 1424 924 / 1424 80 mls/hr IV .Q6H15M [facility] Rx#: [id number] Oral 200 / 440 Output: Urine 125 / 125 Urine Amount (Catheter) 325 / 325 25 / 25 Llanos/Indwelling 325 / 325 25 / 25 Other: Weight 76.5 kg Weight Measurement Method Built in [facility]
[2023-01-06 11:43] LABS: HBSAG NON-REACTIVE (NON-REACTIVE); Hepatitis A Antibody IgM NON-REACTIVE (NON-REACTIVE); Hepatitis B Core Antibody IgM NON-REACTIVE (NON-REACTIVE)
[2023-01-06] MEDS: DULoxetine HCL 30 MG CAP PO SCH ×2 (13:35→20:46)
[2023-01-06] MEDS: FLUTICASONE FUROATE 100MCG 14 PUFFS/INHALER INH SCH (13:35)
[2023-01-06] MEDS: LIDOCAINE 5% 1 PATCH TD SCH ×2 (13:36→16:58)
[2023-01-06] MEDS: UMECLIDINIUM/VILANTEROL 62.5/25MCG 7 PUFFS/INHALER INH SCH (13:36)
[2023-01-06] MEDS: SODIUM CHLORIDE 0.9% 1,000 ML IV SCH ×2 (13:36→16:27)
--- NOTE | 2023-01-06 15:12 | Communication Note ---
Date of Service: January 06, 2023 Patient was seen and rounded on this morning. The patient was transferred to overnight with requirement for vasopressor support. Her pressors are minimal 0.05 initially morning. We will continue treatment as tolerated. Patient remains pleasantly confused. She offers no overt complaints time. We will continue to trend BMP. She remains on antibiotics and IV fluids. I did have discussion with patient's daughter at bedside and provided lengthy update. All questions answered to the best my ability. Patient remains critically ill. I have personally spent 32 minutes of critical care time in the direct management of this patient. This is a life/limb threatening event. This includes time spent evaluating patient, direct bedside care, chart review, placing orders, interpretation of diagnostic studies, discussion with consultants, patient, and family members, as well as other required patient management activities. This time is exclusive of all separately billable procedures, and teaching time and separate from and in addition to any other critical care service time.
[2023-01-06 16:47] LABS: Albumin Globulin Ratio 1.6 (0.9-2); Albumin Level 3.9 gm/dl (3.4-5.0); BUN Creatinine Ratio 19.2 (10-20); Bilirubin,Total 2.1 mg/dl (0.2-1.0); Calcium 8.7 mg/dl (8.6-10.3); Creatinine Clr Calc Pharmacy 24.2 ml/min; Est GFR (African American) 28.3 ml/min; Est GFR (Non-African American) 24.5 ml/min; Globulin 2.4 gm/dl (2.5-4.0); Potassium 5.3 mmol/L (3.5-5.1); Total Protein 6.3 gm/dl (6.0-8.3)
--- NOTE | 2023-01-06 17:43 | Infectious Disease Consult ---
Date of Service January 06, 2023 Telehealth Information I performed this visit using a real-time telehealth connection between my location and the patients location ([facility]). After connecting through interactive tele-video, patient was identified by name and date of and/or wristband check.Patient (or authorized healthcare hr representative) was informed that this was a telemedicine visit and it was being conducted confidentially over secure lines. My office door was closed and no one else was present in the room with me.Patient (or authorized healthcare hr representative) provided consent to proceed with the visit, expressed an understanding of privacy and security of the telemedicine visit, and gave permission to have a hospital hr representative in the room in order to assist with the visit and to conduct portions of the visit, as needed. I informed the patient (or authorized healthcare hr representative) that I reviewed their record and presented the opportunity for them to ask any questions regarding the visit today. The patient agreed to participate. Assessment & Plan (1) Septic shock: Plan: The cause of her septic shock is not clear. Despite the CT showing some strandin g around her bladder, her UA is not consistent with infection. She does have ascites and cirrhosis, so underlying peritonitis is possible. She also has significant abnormal LFTS and borderline imaging of her gallbladder which could suggest cholecystitis. Her wound from her previous graft surgery appears benign and her foot show no signs of infection at this time. I would suggest we ask general surgery to evaluate her gallbladder, consider a HIDA scan and even get a paracentesis for diagnostic purposes. I would also obtain an RVP. Continue pip- tazo for now, but hold further diflucan in the setting of her liver injury. Final abx plans remain pending. (2) PVD (peripheral vascular disease): Plan: Exam shows no infection in her foot or prior surgical site at this time. Continue wound care. (3) Transaminitis: Plan: Please see above under septic shock for recommendations on her liver findings and possible source of infection. History of Present Illness History of Present Illness Ms. Khan was admitted to [facility] on 01/05/23 with increasing weakness and confusion. She required overnight admission to the ICU and low dose pressor support. The patient is unable to provide any history herself and the history is obtained from talking to the patient's daughter and her records. She has a h/o CHF, CAD, prior CVA and COPD. She uses chronic oxygen at home-- about 2 liters on average. She also has a h/o DM and possibly cirrhosis from fatty liver. She apparently has had increasing weakness at home and had a fall about 3 days ago. She also had a vascular bypass to her right LE in October in the setting of some dry gangrene. Her surgery was complicated by an abdominal wall abscess that was treated with zosyn and diflucan. Upon admission here she was noted to be hypotensive and required CVL placement. She was given CTX followed by zosyn and diflucan. She also required face mask O2 up to 8 liters, but no clear infectious syndrome has been identified to date and blood cultures are negative. The patient herself is moving extremities to stimulation and following some orders. She grimaces with abdominal palpation. No other complaints noted per nursing or her daughter. Allergies Allergy/AdvReac Type Severity Reaction Status Date / Time methadone Allergy Severe "couldn't Verified 12/13/22 16:53 swallow/eyes coming out of head" nickel Allergy Severe swelling Verified 12/13/22 16:53 and infections nitroglycerin Allergy Intermediate DECREASED Verified 12/13/22 16:53 BP propoxyphene Allergy Intermediate edema to Verified 12/13/22 16:53 face/lips/tongue diclofenac Allergy Mild Rash Verified 12/13/22 16:53 hydrocodone Allergy Mild "severe Verified 12/13/22 16:53 constipation" levofloxacin [From Levaquin] Allergy Mild nausea/vomi Verified 12/13/22 16:53 ting Penicillins Allergy Mild severe Verified 12/13/22 16:53 diarrhea/rash sitagliptin [From Januvia] Allergy Mild rash Verified 03/21/19 18:20 "blood blisters" strawberry Allergy Mild Diarrhea Verified 03/21/19 18:20 Home Medications Medication Instructions Recorded Confirmed Type aspirin 81 mg tablet,delayed 81 mg PO QAM 11/06/18 01/04/23 History release atorvastatin 40 mg tablet 40 mg PO QPM 11/06/18 01/04/23 History buspirone 15 mg tablet 15 mg PO BID 11/06/18 01/04/23 History clopidogrel 75 mg tablet 75 mg PO QAM 11/06/18 01/04/23 History glipizide 10 mg tablet 10 mg PO QAM 11/06/18 01/04/23 History loratadine 10 mg tablet 10 mg PO QAM 11/06/18 01/04/23 History albuterol sulfate 90 mcg/actuation 2 puff inhalation Q4 PRN Shortness 11/16/18 01/04/23 History aerosol inhaler (Ventolin HFA) Of Breath dicyclomine 10 mg capsule 10 mg PO TID PRN Abdominal Pain 01/11/19 01/04/23 History calcium carbonate 600 mg calcium 600 mg PO BID 03/21/19 01/04/23 History (1,500 mg) tablet (Calcium) cholecalciferol (vitamin D3) 125 5,000 unit PO BID 03/21/19 01/04/23 History mcg (5,000 unit) tablet ondansetron 4 mg disintegrating 4 mg PO Q8H PRN Nausea 03/21/19 01/04/23 History tablet pantoprazole 40 mg tablet,delayed 40 mg PO DAILY 03/21/19 01/04/23 History release sucralfate 1 gram tablet (Carafate) 1 g PO ACHS 03/21/19 01/04/23 History oxycodone 5 mg tablet 5 mg PO Q6H PRN pain #14 tabs 10/25/19 01/04/23 Rx Bifidobacterium infantis 4 mg 4 mg PO DAILY 12/13/22 01/04/23 History capsule (Align) ascorbic acid (vitamin C) 500 mg 500 mg PO DAILY 12/13/22 01/04/23 History tablet (Vitamin C) docusate sodium 50 mg capsule 50 mg PO HS 12/13/22 01/04/23 History duloxetine 30 mg capsule,delayed 30 mg PO AMHS 12/13/22 01/04/23 History release fluticasone fur. 100 mcg-umeclid 1 inh inhalation DAILY 12/13/22 01/04/23 History 62.5 mcg-vilant 25 mcg inhalat.powder (Trelegy Ellipta) glipizide 10 mg tablet 5 mg PO QPM 12/13/22 01/04/23 History ipratropium 0.5 mg-albuterol 3 mg 3 ml inhalation Q4 PRN Shortness 12/13/22 01/04/23 History (2.5 mg base)/3 mL nebulization Of Breath Or Wheezing soln lidocaine 4 % topical patch 1 patch topical DAILY PRN Pain 12/13/22 01/04/23 History menthol 0.44 %-zinc oxide 20.6 % 1 applic topical DIRECTED PRN 12/13/22 01/04/23 History topical ointment (Calmoseptine) Sores on bottom nicotine 14 mg/24 hr daily 1 patch transdermal .DAILY 12/13/22 01/04/23 History transdermal patch DIRECTED nystatin 100,000 unit/gram topical 1 applic topical TID 12/13/22 01/04/23 History powder (Nyamyc) potassium chloride 20 mEq 20 meq PO .DAILY UD 12/13/22 01/04/23 History tablet,extended release(part/cryst) zinc 50 mg tablet 50 mg PO DAILY 12/13/22 01/04/23 History cyclobenzaprine 5 mg tablet 5 mg PO BID PRN muscle spasm #14 12/22/22 01/04/23 Rx tabs furosemide 20 mg tablet 20 mg PO QAM #30 tabs 12/22/22 01/04/23 Rx metoprolol succinate 25 mg 25 mg PO QAM 30 days #30 tabs 12/22/22 01/04/23 Rx tablet,extended release 24 hr spironolactone 25 mg tablet 12.5 mg PO DAILY 30 days #15 tabs 12/22/22 01/04/23 Rx nicotine 7 mg/24 hr daily 14 mg transdermal QAM #7 ea 12/24/22 01/04/23 Rx transdermal patch sodium chloride 7 % for 4 ml inhalation BID 01/04/23 01/04/23 History nebulization Patient History Medical History Anemia Anxiety [place] esophagus COPD (chronic obstructive pulmonary disease) inhaler prn Coronary artery disease, occlusive Critical limb ischemia with history of revascularization of same extremity RLE CVA (cerebral vascular accident) 2008--slight left side weakness (no assistive devices)--follows with Dr. 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 not have a director of psychiatry Obesity (BMI 30.0-34.9) On anticoagulant therapy plavix daily Osteoarthritis PVD (peripheral vascular disease) Right upper lobe pulmonary nodule Surgical History H/O: hysterectomy History of appendectomy History of bilateral cataract extraction History of bilateral tubal ligation History of bronchoscopy History of cardiac cath x2 both @ [facility]--2000 with 1 stent/2003--no stent, instead fem-pop bypass History of carotid endarterectomy 2010 on right side History of colonoscopy with polypectomy History of dilatation and curettage x3 History of endoscopic sinus surgery History of esophagogastroduodenoscopy (EGD) History of heart artery stent x1 before 2000? @ [facility] History of repair of right rotator cuff x2 History of tooth extraction most teeth Status post femoral-popliteal bypass surgery 2004 Status post femoropopliteal bypass surgery 11/06/[address] Jara---thrombectomy/Femoral-femoral bypass Family History Sister Family history of diabetes mellitus Family history of esophageal cancer Family hx of colon cancer Sister Family history of diabetes mellitus Sister Family history of diabetes mellitus Sister Family history of diabetes mellitus Sister Family history of diabetes mellitus Sister Family history of diabetes mellitus Sister Family history of diabetes mellitus Brother Family history of diabetes mellitus Brother Family history of diabetes mellitus Brother Family history of diabetes mellitus Other Diabetes No family history of adverse response to anesthesia Stroke Social History Smoking Status: Unknown if ever smoked Tobacco Type: Cigarettes Cigarettes Per Day: 20-40; Second Hand Exposure: Yes; Do You Dip or Chew Tobacco: No; Hx Alcohol Use: No Hx Substance Use: No Preferred Language: Estonian Communication Ability: Effective Pt Escort Required: No Beliefs That Will Affect Care: None Current Living Situation: Family Current Living Situation Comment: Lives with daughter Feels Safe at Home: No Is there a partner from a previous relationship who is making you feel unsafe now?: No Any Concerns about Your Family Situation: No Would You Like to Speak to Someone About Your Situation: No Assistive Devices: Bedside Commode, Oxygen - Continuous, Stair Lift and Walker Review of Systems ROS unobtainable at this time. Physical Exam GEN- Acutely ill-appearing, non-responsive to questions HEENT- face mask O2 in place Neck-- ROM intact Lungs- respiratory effort WNL Abd- Examination performed by nurse shows some grimacing during palpation of RLQ and suprapubic area Ext- No edema MSK- No cellulitis or gangrenous changes of concern currently Results & Data Vital Signs (Past 12 Hours) Vital Signs Pulse Pulse Resp BP Pulse Ox O2 Del Method O2 Flow Rate 01/06/23 15:15 67 20 87 L 01/06/23 15:15 110/66 01/06/23 15:00 67 19 88 L 01/06/23 15:00 113/66 01/06/23 14:45 67 22 88 L 01/06/23 14:45 114/57 L 01/06/23 14:30 67 19 90 01/06/23 14:30 106/59 L 01/06/23 14:15 67 20 88 L 01/06/23 14:15 110/65 01/06/23 14:00 68 20 92 01/06/23 14:00 113/53 L 01/06/23 13:52 68 20 76 L 01/06/23 13:52 100/56 L 01/06/23 13:46 99/77 L 01/06/23 13:46 68 20 95 01/06/23 13:45 67 19 96 01/06/23 13:31 69 20 95 01/06/23 13:31 120/48 L 01/06/23 13:30 68 20 95 01/06/23 13:16 71 20 94 01/06/23 13:16 130/43 L 01/06/23 13:15 68 22 96 01/06/23 13:00 70 19 95 01/06/23 13:00 120/81 01/06/23 15:26 67 01/06/23 12:45 70 19 94 01/06/23 12:45 122/67 01/06/23 12:30 70 22 96 01/06/23 12:30 120/71 01/06/23 12:16 71 19 01/06/23 12:16 113/63 01/06/23 12:15 70 20 77 L 01/06/23 12:00 70 20 91 01/06/23 12:00 122/63 01/06/23 11:45 70 22 88 L 01/06/23 11:45 115/57 L 01/06/23 11:31 71 26 H 100 01/06/23 11:31 112/65 01/06/23 11:30 71 23 97 01/06/23 11:15 72 22 95 01/06/23 11:15 123/59 L 01/06/23 11:00 72 24 98 01/06/23 11:00 117/75 01/06/23 10:45 72 25 H 90 01/06/23 10:45 121/67 01/06/23 10:30 71 21 01/06/23 10:30 125/56 L 01/06/23 10:15 72 22 01/06/23 10:15 115/65 01/06/23 10:00 72 24 79 L 01/06/23 10:00 134/56 L 01/06/23 09:46 72 24 74 L 01/06/23 09:46 133/62 01/06/23 09:46 133/62 01/06/23 09:45 72 21 78 L 01/06/23 09:30 71 22 01/06/23 09:30 124/64 01/06/23 09:16 124/50 L 01/06/23 09:16 79 24 01/06/23 09:15 70 16 01/06/23 09:01 69 20 01/06/23 09:01 92/54 L 01/06/23 09:00 71 25 H 01/06/23 08:45 70 24 01/06/23 08:45 123/72 01/06/23 08:31 131/60 01/06/23 08:31 70 20 01/06/23 08:30 70 18 01/06/23 08:15 77/50 L 01/06/23 08:15 69 23 01/06/23 08:01 123/47 L 01/06/23 08:01 71 23 01/06/23 08:00 69 18 01/06/23 07:46 120/55 L 01/06/23 07:46 71 25 H 01/06/23 07:31 70 20 01/06/23 07:31 120/49 L 01/06/23 07:30 70 20 93 Nasal Cannula 2 01/06/23 07:16 69 22 01/06/23 07:16 100/81 01/06/23 07:08 122/48 L 01/06/23 07:08 69 23 01/06/23 07:00 70 23 01/06/23 08:05 108 H 20 Nasal Cannula 6 01/06/23 08:48 Nasal Cannula 2 01/06/23 07:49 70 01/06/23 06:31 70 28 H 01/06/23 06:31 122/60 01/06/23 06:30 70 25 H 90 Nasal Cannula 3 01/06/23 06:16 114/68 01/06/23 06:16 70 20 90 01/06/23 06:15 70 27 H 92 01/06/23 06:01 70 23 89 L 01/06/23 06:01 123/60 01/06/23 06:01 123/60 01/06/23 06:00 70 26 H 82 L 01/06/23 05:46 134/66 01/06/23 05:46 69 26 H 96 01/06/23 05:45 70 26 H 97 01/06/23 05:30 68 15 94 01/06/23 05:30 127/73 01/06/23 05:21 69 25 H 97 01/06/23 05:21 130/50 L Laboratory Results WBC 13.38 -> 13.11 Hgb 8.1 Platelets 356 Lactate 6.1 -> 5.8 Na 133 Creatinine 1.58 BUN 32 T. B. 1.6 AST 335 ALT 314 Alk Phos 347 Procal 0.29 UA with 1-5 WBC, 0-[address] abdomen/pelvis from today reviewed by me: stranding around bladder, ascites, cirrhosis morphology Liver US: Some gallbladder stranding, no obvious obstruction Blood cultures 01.04.23 NGTD Urine culture 01/05/23 pending
[2023-01-06] MEDS ORDERED: PLASMA-LYTE A 250 ML IV ONE (19:52)
[2023-01-06] MEDS ORDERED: STAT IV/IM STA (19:52)
[2023-01-06] MEDS: SODIUM BICARBONATE 8.4% 150 MEQ in DEXTROSE 5% 1,000 ML IV SCH (20:44)
[2023-01-06] MEDS: DOCUSATE SODIUM SYRUP 100 MG/10 ML UDC PO SCH (20:46)
[2023-01-06] MEDS: MICONAZOLE NITRATE 2% VAG CR 45 GM TUBE PV SCH (20:48)
--- NOTE | 2023-01-06 21:52 | Electrocardiogram Report ---
Test Reason : Blood Pressure : / mmHG Vent. Rate : 063 BPM Atrial Rate : 063 BPM P-R Int : 134 ms QRS Dur : 072 ms QT Int : 430 ms P-R-T Axes : 084 082 016 degrees QTc Int : 440 ms Sinus rhythm Low voltage QRS Nonspecific ST and T wave abnormality Abnormal ECG When compared with ECG of 15-DEC-2022 17:59, Limb lead reversal is no longer present Nonspecific T wave abnormality, improved in Lateral leads Confirmed by Jaquan Monroy ([id number]) on 01/06/2023 9:52:01 PM Referred By: REFERRED SELF Confirmed By:Jaquan Monroy
[2023-01-07] MEDS: PIPERACILLIN/TAZOBACTAM 4.5 GM in DEXTROSE 5% MINI-B 100 ML IV SCH ×2 (01:16→08:12)
[2023-01-07 05:28] LABS: BUN Creatinine Ratio 16.9 (10-20); Calcium 8.2 mg/dl (8.6-10.3); Creatinine Clr Calc Pharmacy 19.7 ml/min; Est GFR (African American) 21.5 ml/min; Est GFR (Non-African American) 18.5 ml/min; Phosphorus 3.6 mg/dl (2.5-4.9); Potassium 4.4 mmol/L (3.5-5.1)
[2023-01-07 05:58] LABS: Hematocrit (blood only) 24.3 % (37.0-47.0); Hemoglobin 7.6 g/dl (12.0-16.0); Mean Corpuscular Hemoglobin 26.1 pg (25.0-34.0); Mean Corpuscular Hgb Conc 31.3 g/dL (32.0-36.0); Mean Corpuscular Volume 83.5 fL (80.0-100.0); Mean Platelet Volume 11.1 fL (9.4-12.4); Nucleated RBC # (auto) 0.31 K/uL (0.00-0.12); Nucleated RBC % (auto) 2.4 %; Platelet Count 281 K/uL (130-400); RDW Coefficient of Variation 17.7 % (11.5-14.5); RDW Standard Deviation 53.3 fL (36.4-46.3); Red Blood Count 2.91 M/uL (4.20-5.40); White Blood Count 12.95 K/ul (4.8-10.8)
[2023-01-07 06:01] LABS: Anisocytosis Present; Basophils # (auto) 0.03 K/uL (0.00-0.20); Basophils % (auto) 0.2 %; Eosinophils # (auto) 0.08 K/uL (0.00-0.50); Eosinophils % (auto) 0.6 %; Hypochromasia Present; Immature Granulocytes # (auto) 0.09 K/uL (0.01-0.20); Immature Granulocytes % (auto) 0.7 %; Lymphocytes # (auto) 0.63 K/uL (1.20-3.40); Lymphocytes % (auto) 4.9 %; Monocytes # (auto) 1.19 K/uL (0.11-0.59); Monocytes % (auto) 9.2 %; Neutrophils # (auto) 10.93 K/uL (1.40-6.50); Neutrophils % (auto) 84.4 %; Polychromasia 1+
[2023-01-07] MEDS: SODIUM BICARBONATE 8.4% 150 MEQ in DEXTROSE 5% 1,000 ML IV SCH (07:54)
[2023-01-07] MEDS: SODIUM ZIRCONIUM CYCLOSILICATE 10 GM PACKET PO SCH (07:54)
[2023-01-07] MEDS: SUCRALFATE 1 GM TAB PO SCH ×4 (07:56→20:36)
[2023-01-07] MEDS: PANTOprazole 40 MG TAB PO SCH (08:04)
[2023-01-07] MEDS: ADVANCED PROBIOTIC 1250 MG CAPSULE PO SCH (08:04)
[2023-01-07] MEDS: DULoxetine HCL 30 MG CAP PO SCH ×2 (08:04→20:34)
[2023-01-07] MEDS: ASPIRIN 81 MG ECTAB PO SCH (08:05)
[2023-01-07] MEDS: busPIRone 15 MG TAB PO SCH ×2 (08:05→20:34)
[2023-01-07] MEDS: CLOPIDOGREL BISULFATE 75 MG TAB PO SCH (08:05)
[2023-01-07] MEDS: LORATADINE 10 MG TAB PO SCH (08:05)
[2023-01-07] MEDS: UMECLIDINIUM/VILANTEROL 62.5/25MCG 7 PUFFS/INHALER INH SCH (08:06)
[2023-01-07] MEDS: FLUTICASONE FUROATE 100MCG 14 PUFFS/INHALER INH SCH (08:06)
[2023-01-07] MEDS: NICOTINE 14 MG/24 HR PATCH TD SCH (08:08)
[2023-01-07] MEDS: LIDOCAINE 5% 1 PATCH TD SCH (08:08)
[2023-01-07] MEDS: POLYETHYLENE (MIRALAX) 17 GM PACK PO SCH (08:13)
[2023-01-07] MEDS: INSULIN ASPART PER UNIT CHARGE SC SCH ×4 (08:17→20:35)
[2023-01-07] MEDS: SODIUM CHLOR 7% 4 ML NEB INH SCH ×2 (08:41→20:26)
--- NOTE | 2023-01-07 09:10 | Critical Care Progress Note ---
Date of Service January 07, 2023 Assessment & Plan (1) Septic shock: Plan: Reason Critically Ill: 72-year-old female with extensive past medical history presents to the ICU with hypotension requiring vasopressor support secondary to septic shock. She has known severe MR and recent drug-eluting stent. 24-hour events: The patient has intermittently been on and off pressors. Her urine output remains poor and serum electrolytes and creatinine are changing state with acute renal failure Recommendations: Neuro -metabolic encephalopathy with elevated ammonia level. Will place on lactulose and start rifaximin. No indication for repeat imaging Cardiac -shock likely multifactorial. The patient has severe MR and I wonder whether or not this may be a cardiorenal syndrome. In addition her cirrhosis may be cardiac related as the patient does not have an underlying history of alcohol abuse. Do not think she is a candidate for interventions but will defer to cardiology whether or not MitraClip might be considered. Start midodrine at 5 mg 3 times a day. Respiratory -acute on chronic hypoxemic respiratory failure. Continue supplemental oxygen. Holding diuretics in light of worsening kidney function. If hypercarbic, initiate noninvasive positive pressure ventilation GI -ultrasound noted. CT of the abdomen showed bladder wall thickening with perivascular stranding possibly related to cystitis. No evidence of hydronephrosis. Cirrhosis with anasarca. Cannot rule out a calculus cholecystitis but picture appears less concerning. We will check GGT. Patient's not a candidate for surgical intervention. Diet as tolerated. GI consultation given her cirrhosis. In light of her elevated ammonia we will start lactulose and rifaximin. RENAL/LYTES -acute renal failure. Appears consistent with ATN. Check urine eosinophils given recent Zosyn administration as well as urine sodium and creatinine. Hepatorenal syndrome would also be on the differential. Nephrology consultation reviewed. We will check urine eosinophils given recent ministration of Zosyn although I suspect this is likely hypoperfusion/ATN. Will restart norepinephrine and try and maintain systolic blood pressure above 100 to see whether or not that offers any improvement in renal perfusion and urine output and electrolytes. Patient had been maintained on a bicarb infusion but her serum bicarb appears to be responding appropriately. We will recheck venous blood gas and discontinue bicarb if possible. - Foleystrict I's and O's ENDO - glycemic control per ICU protocol. The patient's random cortisol was 34 which would exclude relative adrenal insufficiency. HEME -patient has significant decrease in her hemoglobin over the last 24 to 48 hours. Do not see evidence of active ongoing bleeding. Other cell lines are preserved. Follow-up for now with repeat CBC this afternoon and will try and preserve hemoglobin above 7. Holding Lovenox for now ID -urinary source possible. Cultures have shown no growth to date. White count remains persistently elevated but no fever. The patient is currently day #4 antibiotics, currently day #3 Zosyn. ID consultation reviewed. Patient's overall condition is poor with severe MR, progressive renal failure, and relative hypotension.. In light of her poor condition, would strongly recommend discussion with family members and patient to determine goals of therapy. Palliative care consultation may be appropriate LINES/IV ACCESS - Right IJ CVC DVT PROPHYLAXIS - SCDs, hold additional chemoprophylaxis pending CBC results I have personally spent 80 minutes of critical care time in the direct management of this patient. This is a life/limb threatening event. This includes time spent evaluating patient, direct bedside care, chart review, placing orders, interpretation of diagnostic studies, discussion with consultants, patient, and family members, as well as other required patient management activities. This time is exclusive of all separately billable procedures, and teaching time and separate from and in addition to any other critical care service time. (2) Elevated lactic acid level: (3) Transaminitis: (4) PVD (peripheral vascular disease): (5) PRAKASH (acute kidney injury): (6) Severe mitral regurgitation: (7) Acute on chronic diastolic heart failure with preserved ejection fraction: (8) CAD (coronary artery disease): (9) Diabetes mellitus, type II: (10) COPD (chronic obstructive pulmonary disease): (11) CVA (cerebral vascular accident): (12) Hyperlipidemia: (13) HTN (hypertension): Admission and Anticipated Discharge Date Admission Date: January 05, 2023 Subjective Patient seen and examined. She is slightly encephalopathic and is difficult to obtain an accurate history from her. She has been intermittently on and off pressors. Urine output continues to remain poor. Review of Systems Review of Systems: Unobtainable due to reduced consciousness Physical Exam Constitutional: well developed, well nourished, + obese, + altered mental status and + lethargic Eyes: EOM intact bilaterally (but eyes closed most of visit) Neck: no nuchal rigidity Respiratory: normal respiratory effort Auscultation: + diminished lung sounds Cardiovascular: Rate/Rhythm: regular rate and regular rhythm Heart Sounds: + murmur Extremities: no edema Gastrointestinal (Abdomen): Inspection/Auscultation: normal bowel sounds, + significant pannus and + abdominal surgical scar (1 x 2 x min 4 cm wound sl R off center suprapubic on scar); abdomen not distended and no abdominal edema Percussion/Palpation: + abdomen tender (BL lower quadrants, R>L) and abdomen soft; no abdominal mass, no ascites, no dullness to percussion and no fluid wave Musculoskeletal: Extremities: + abnormal strength Skin: no rashes, warm and dry Results & Data Results & Data Vital Signs (Past 12 Hours) Vital Signs Temp Pulse Pulse Resp BP Pulse Ox O2 Del Method 01/07/23 08:41 60 18 92 Nasal Cannula 01/07/23 05:01 62 16 92/57 L 69 L 01/07/23 05:00 62 22 72 L 01/07/23 04:45 61 15 101/64 85 L 01/07/23 04:30 62 20 101/60 82 L 01/07/23 04:15 61 17 89/63 L 88 L 01/07/23 04:01 61 14 98/61 L 91 01/07/23 04:00 62 15 87 L 01/07/23 03:47 60 17 114/62 92 01/07/23 03:45 60 22 86 L 01/07/23 04:00 36.4 C L 01/07/23 03:30 62 18 100/63 94 01/07/23 03:15 61 19 101/65 91 01/07/23 03:01 61 15 96/55 L 92 01/07/23 03:00 62 25 H 90 01/07/23 02:45 61 20 94/59 L 88 L 01/07/23 02:30 62 21 97/72 L 81 L 01/07/23 02:16 61 17 95/62 L 83 L 01/07/23 02:15 62 17 83 L 01/07/23 02:00 62 22 106/62 82 L 01/07/23 01:45 62 15 98/61 L 80 L 01/07/23 01:30 62 18 95/65 L 84 L 01/07/23 01:16 61 18 98/58 L 85 L 01/07/23 01:15 63 20 85 L 01/07/23 01:01 62 22 100/50 L 82 L 01/07/23 01:00 60 18 85 L 01/07/23 00:45 61 23 98/64 L 86 L 01/07/23 00:30 61 24 93/65 L 81 L 01/07/23 00:15 61 22 99/61 L 81 L 01/07/23 00:00 62 21 100/61 86 L 01/06/23 23:45 61 12 92/62 L 86 L 01/06/23 23:30 60 16 98/63 L 85 L 01/06/23 23:19 61 15 97/56 L 86 L 01/06/23 23:15 62 19 84 L 01/06/23 23:00 63 17 95/64 L 91 01/06/23 22:46 62 20 92/65 L 89 L 01/06/23 22:45 66 19 94 01/06/23 22:30 63 22 102/56 L 95 01/06/23 22:16 63 18 105/59 L 93 01/06/23 22:15 62 19 91 01/06/23 22:00 64 17 106/60 86 L 01/06/23 21:46 63 17 98/65 L 89 L 01/06/23 21:45 63 18 90 01/06/23 21:30 62 17 111/62 92 01/06/23 21:16 63 14 88/60 L 96 01/06/23 21:15 63 23 99 O2 Flow Rate 01/07/23 08:41 6 01/07/23 05:01 01/07/23 05:00 01/07/23 04:45 01/07/23 04:30 01/07/23 04:15 01/07/23 04:01 01/07/23 04:00 01/07/23 03:47 01/07/23 03:45 01/07/23 04:00 01/07/23 03:30 01/07/23 03:15 01/07/23 03:01 01/07/23 03:00 01/07/23 02:45 01/07/23 02:30 01/07/23 02:16 01/07/23 02:15 01/07/23 02:00 01/07/23 01:45 01/07/23 01:30 01/07/23 01:16 01/07/23 01:15 01/07/23 01:01 01/07/23 01:00 01/07/23 00:45 01/07/23 00:30 01/07/23 00:15 01/07/23 00:00 01/06/23 23:45 01/06/23 23:30 01/06/23 23:19 01/06/23 23:15 01/06/23 23:00 01/06/23 22:46 01/06/23 22:45 01/06/23 22:30 01/06/23 22:16 01/06/23 22:15 01/06/23 22:00 01/06/23 21:46 01/06/23 21:45 01/06/23 21:30 01/06/23 21:16 01/06/23 21:15 Critical Care Results & Data Vital Signs (Past 12 Hours) Vital Signs Temp Pulse Pulse Resp BP Pulse Ox O2 Del Method 01/07/23 08:41 60 18 92 Nasal Cannula 01/07/23 05:01 62 16 92/57 L 69 L 01/07/23 05:00 62 22 72 L 01/07/23 04:45 61 15 101/64 85 L 01/07/23 04:30 62 20 101/60 82 L 01/07/23 04:15 61 17 89/63 L 88 L 01/07/23 04:01 61 14 98/61 L 91 01/07/23 04:00 62 15 87 L 01/07/23 03:47 60 17 114/62 92 01/07/23 03:45 60 22 86 L 01/07/23 04:00 36.4 C L 01/07/23 03:30 62 18 100/63 94 01/07/23 03:15 61 19 101/65 91 01/07/23 03:01 61 15 96/55 L 92 01/07/23 03:00 62 25 H 90 01/07/23 02:45 61 20 94/59 L 88 L 01/07/23 02:30 62 21 97/72 L 81 L 01/07/23 02:16 61 17 95/62 L 83 L 01/07/23 02:15 62 17 83 L 10/27/23 02:00 62 22 106/62 82 L 01/07/23 01:45 62 15 98/61 L 80 L 01/07/23 01:30 62 18 95/65 L 84 L 01/07/23 01:16 61 18 98/58 L 85 L 01/07/23 01:15 63 20 85 L 01/07/23 01:01 62 22 100/50 L 82 L 01/07/23 01:00 60 18 85 L 01/07/23 00:45 61 23 98/64 L 86 L 01/07/23 00:30 61 24 93/65 L 81 L 01/07/23 00:15 61 22 99/61 L 81 L 01/07/23 00:00 62 21 100/61 86 L 01/06/23 23:45 61 12 92/62 L 86 L 01/06/23 23:30 60 16 98/63 L 85 L 01/06/23 23:19 61 15 97/56 L 86 L 01/06/23 23:15 62 19 84 L 01/06/23 23:00 63 17 95/64 L 91 01/06/23 22:46 62 20 92/65 L 89 L 01/06/23 22:45 66 19 94 01/06/23 22:30 63 22 102/56 L 95 01/06/23 22:16 63 18 105/59 L 93 01/06/23 22:15 62 19 91 01/06/23 22:00 64 17 106/60 86 L 01/06/23 21:46 63 17 98/65 L 89 L 01/06/23 21:45 63 18 90 01/06/23 21:30 62 17 111/62 92 01/06/23 21:16 63 14 88/60 L 96 01/06/23 21:15 63 23 99 O2 Flow Rate 01/07/23 08:41 6 01/07/23 05:01 01/07/23 05:00 01/07/23 04:45 01/07/23 04:30 01/07/23 04:15 01/07/23 04:01 01/07/23 04:00 01/07/23 03:47 01/07/23 03:45 01/07/23 04:00 01/07/23 03:30 01/07/23 03:15 01/07/23 03:01 01/07/23 03:00 01/07/23 02:45 01/07/23 02:30 01/07/23 02:16 01/07/23 02:15 01/07/23 02:00 01/07/23 01:45 01/07/23 01:30 01/07/23 01:16 01/07/23 01:15 01/07/23 01:01 01/07/23 01:00 01/07/23 00:45 01/07/23 00:30 01/07/23 00:15 01/07/23 00:00 01/06/23 23:45 01/06/23 23:30 01/06/23 23:19 01/06/23 23:15 01/06/23 23:00 01/06/23 22:46 01/06/23 22:45 01/06/23 22:30 01/06/23 22:16 01/06/23 22:15 01/06/23 22:00 01/06/23 21:46 01/06/23 21:45 01/06/23 21:30 01/06/23 21:16 01/06/23 21:15 Lab & Micro Results (Past 24 Hours) RBC 2.91 M/uL (4.20-5.40) L 01/07/23 WBC 12.95 K/ul (4.8-10.8) H 01/07/23 Hgb 7.6 g/dl (12.0-16.0) L 01/07/23 Hct 24.3 % (37.0-47.0) L 01/07/23 MCV 83.5 fL (80.0-100.0) 01/07/23 MCH 26.1 pg (25.0-34.0) 01/07/23 MCHC 31.3 g/dL (32.0-36.0) L 01/07/23 RDW Standard Deviation 53.3 fL (36.4-46.3) H 01/07/23 RDW Coefficient of Variation 17.7 % (11.5-14.5) H 01/07/23 Plt Count 281 K/uL (130-400) 01/07/23 MPV 11.1 fL (9.4-12.4) 01/07/23 Nucleated Red Blood Cells % (auto) 2.4 % 01/07 Nucleated RBC Absolute Count (auto) 0.31 K/uL (0.00-0.12) H 01/07/23 Neutrophils (%) (Auto) 84.4 % 01/07/23 Lymphocytes (%) (Auto) 4.9 % 01/07/23 Monocytes # (Auto) 1.19 K/uL (0.11-0.59) H 01/07/23 Eosinophils # (Auto) 0.08 K/uL (0.00-0.50) 01/07/23 Immature Granulocyte % (Auto) 0.7 % 01/07/23 Neutrophils # (Auto) 10.93 K/uL (1.40-6.50) H 01/07/23 Lymphocytes # (Auto) 0.63 K/uL (1.20-3.40) L 01/07/23 Monocytes # (Auto) 1.19 K/uL (0.11-0.59) H 01/07/23 Eosinophils # (Auto) 0.08 K/uL (0.00-0.50) 01/07/23 Basophils # (Auto) 0.03 K/uL (0.00-0.20) 01/07/23 Immature Granulocyte # (Auto) 0.09 K/uL (0.01-0.20) 3 Polychromasia 1+ 01/07/23 Hypochromasia Present 01/07/23 Anisocytosis Present 01/07/23 Na 131 mmol/L (136-145) L 01/07/23 K 4.4 mmol/L (3.5-5.1) 01/07/23 Cl 100 mmol/L (98-107) 01/07/23 CO2 23 mmol/L (21-32) 01/07/23 Anion Gap 8 (3-11) 01/07/23 BUN 42 mg/dl (6-23) H 01/07/23 Creatinine 2.49 mg/dl (0.6-1.2) H 01/07/23 Estimated GFR ( Amer) 21.5 ml/min 01/07/23 Estimated GFR (Non-Af Amer) 18.5 ml/min 01/07/23 BUN/Creatinine Ratio 16.9 (10-20) 01/07/23 Glu 225 mg/dl (70-99(Fasting)) H 01/07/23 Ca 8.2 mg/dl (8.6-10.3) L 01/07/23 Phosphorus Level 3.6 mg/dl (2.5-4.9) 01/07/23 Total Bilirubin 2.1 mg/dl (0.2-1.0) H 01/06/23 AST 365 U/L (13-39) H 01/06/23 ALT 313 U/L (7-52) H 01/06/23 Alkaline Phosphatase 313 U/L (34-104) H 01/06/23 TP 6.3 gm/dl (6.0-8.3) 01/06/23 Albumin 3.9 gm/dl (3.4-5.0) 01/06/23 Globulin 2.4 gm/dl (2.5-4.0) L 01/06/23 Albumin/Globulin Ratio 1.6 (0.9-2) 01/06/23 GGT Pending 01/07/23 Mg 2.0 mg/dl (1.7-2.4) 01/07/23 04:53 Calcium Level 8.2 mg/dl (8.6-10.3) L 01/07/23 04:53 Venous Blood pH 7.30 (7.36-7.41) L 01/07/23 09:49 Venous Blood Partial Pressure CO2 49 mmHg (38-50) 01/07/23 09:4 9 Venous Blood Partial Pressure O2 29 mmHg 01/07/23 09:49 Venous Blood HCO3 24 mmol/L 01/07/23 09:49 Venous Blood Base Excess -2.8 mEq/L 01/07/23 09:49 Venous Blood Oxygen Saturation < 60.0 % 01/07/23 09:49 Microbiology 01/05/23 16:37 Gram Stain - Final Abdomen 01/04/23 20:20 Aerobic Blood Culture - Preliminary Blood No growth in Aerobic bottle after 48 hours. Anaerobic Blood Culture - Preliminary No growth in Anaerobic bottle after 48 hours. 01/04/23 20:27 Aerobic Blood Culture - Preliminary Blood No growth in Aerobic bottle after 48 hours. Anaerobic Blood Culture - Preliminary No growth in Anaerobic bottle after 48 hours. 01/05/23 18:53 Fungal Smear - Final Blood Diagnostic Findings (Past 24 Hours) Echocardiogram from 12/14/2022 showed an EF of 55 to 60% with hypokinesis/akinesis of the inferior and posterior florez. Severe MR was noted with a PA pressure of 49. I & O Totals 24 Hours 01/06/23 01/07/23 01/08/23 06:59 06:59 06:59 Intake Total 2364 / 2364 3516.064 / 3516.064 1116.667 / 1116.667 Output Total 450 / 450 177 / 177 Balance 191 / 1914 3339.064 / 3339.064 1116.667 / 1116.667 Cumulative 01/04/23 17:55 thru 01/07/23 07:54 Intake Total 8346.731 Output Total 627 Balance 7719.731 RT Ventilator Mngmt (Last Documented) Ventilator Ordered Settings Respiratory Rate 18 01/07/23 08:41 Ventilator - PT Measurements Respiratory Rate 18 Coding Level of Care Code 50000 CRITICAL CARE EA ADD 30M Diagnoses Septic shock A41.9; R65.21 Elevated lactic acid level R79.89 Transaminitis R74.01 PVD (peripheral vascular disease) I73.9 PRAKASH (acute kidney injury) N17.9 Severe mitral regurgitation I34.0 Acute on chronic diastolic heart failure with preserved ejection fraction I50.33 CAD (coronary artery disease) I25.10 Diabetes mellitus, type II E11.9 COPD (chronic obstructive pulmonary disease) J44.9 CVA (cerebral vascular accident) I63.9 Hyperlipidemia E78.5 HTN (hypertension) I10
--- NOTE | 2023-01-07 09:25 | Nephrology Progress Note ---
Date of Service January 07, 2023 Assessment & Plan (1) PRAKASH (acute kidney injury): Plan: worsening now Stage 3 and newly oligoanuric PRAKASH w/ baseline creatinine 0.7-0.8. multifactorial from ischemic ATN d/t contrast nephropathy in the setting of septic shock/hypotension and outpatient diuretics. high risk for near and longer term morbidity and mortality > continue sepsis work up and supportive care keeping MAP > 65 -cannot r/o need for dialysis next 48 hrs but none needed today (2) Septic shock: Plan: back on pressor after bicarb gtt w/ severe sepsis/ worsening renal failure and ongoing transaminitis, worsening respiratory failure diflucan held d/t transaminitis Note ID recommending surgical c/s, diagnostic paracentesis, HIDA; f/u GI recs on Zosyn currently (3) Hyperkalemia: Plan: mild and now resolved; in the setting of PRAKASH, elevated lactate/septic shock, prior to admission K sparing diuretics and very occasional K supplements. she had 2 rounds of IV insulin yesterday. CK and phos wnl on admission and today res pectively. -removed low K diet -agree w/ stopping lokelma -continue bicarb gtt as tolerated Admission and Anticipated Discharge Date Admission Date: January 05, 2023 Subjective off of levo overnight 11P-9A; GI consulted; Review of Systems Review of Systems: Unobtainable due to reduced consciousness (answers 1-2 simple questions only) Physical Exam Constitutional: well developed, well nourished, + obese, + altered mental status and + lethargic Eyes: EOM intact bilaterally (but eyes closed most of visit) ENMT: Ears: no external ear abnormality Nose: no external nose abnormality Mouth: + dry oral mucous membranes Neck: no nuchal rigidity Respiratory: normal respiratory effort Auscultation: + diminished lung sounds Cardiovascular: Rate/Rhythm: regular rate and regular rhythm Heart Sounds: + murmur Extremities: no edema Gastrointestinal (Abdomen): Inspection/Auscultation: normal bowel sounds, + significant pannus and + abdominal surgical scar (1 x 2 x min 4 cm wound sl R off center suprapubic on scar); abdomen not distended and no abdominal edema Percussion/Palpation: + abdomen tender (diffuse and less severe today) and abdomen soft; no abdominal mass, no ascites, no dullness to percussion and no fluid wave Musculoskeletal: Extremities: + abnormal strength Skin: no rashes, warm and dry Results & Data Vital Signs (Past 12 Hours) Vital Signs Temp Pulse Pulse Resp BP Pulse Ox O2 Del Method 01/07/23 08:41 60 18 92 Nasal Cannula 01/07/23 05:01 62 16 92/57 L 69 L 01/07/23 05:00 62 22 72 L 01/07/23 04:45 61 15 101/64 85 L 01/07/23 04:30 62 20 101/60 82 L 01/07/23 04:15 61 17 89/63 L 88 L 01/07/23 04:01 61 14 98/61 L 91 01/07/23 04:00 62 15 87 L 01/07/23 03:47 60 17 114/62 92 01/07/23 03:45 60 22 86 L 01/07/23 04:00 36.4 C L 01/07/23 03:30 62 18 100/63 94 01/07/23 03:15 61 19 101/65 91 01/07/23 03:01 61 15 96/55 L 92 01/07/23 03:00 62 25 H 90 01/07/23 02:45 61 20 94/59 L 88 L 01/07/23 02:30 62 21 97/72 L 81 L 01/07/23 02:16 61 17 95/62 L 83 L 01/07/23 02:15 62 17 83 L 01/07/23 02:00 62 22 106/62 82 L 01/07/23 01:45 62 15 98/61 L 80 L 01/07/23 01:30 62 18 95/65 L 84 L 01/07/23 01:16 61 18 98/58 L 85 L 01/07/23 01:15 63 20 85 L 01/07/23 01:01 62 22 100/50 L 82 L 01/07/23 01:00 60 18 85 L 01/07/23 00:45 61 23 98/64 L 86 L 01/07/23 00:30 61 24 93/65 L 81 L 01/07/23 00:15 61 22 99/61 L 81 L 01/07/23 00:00 62 21 100/61 86 L 01/06/23 23:45 61 12 92/62 L 86 L 01/06/23 23:30 60 16 98/63 L 85 L 01/06/23 23:19 61 15 97/56 L 86 L 01/06/23 23:15 62 19 84 L 01/06/23 23:00 63 17 95/64 L 91 01/06/23 22:46 62 20 92/65 L 89 L 01/06/23 22:45 66 19 94 01/06/23 22:30 63 22 102/56 L 95 01/06/23 22:16 63 18 105/59 L 93 01/06/23 22:15 62 19 91 01/06/23 22:00 64 17 106/60 86 L 01/06/23 21:46 63 17 98/65 L 89 L 01/06/23 21:45 63 18 90 01/06/23 21:30 62 17 111/62 92 01/06/23 21:16 63 14 88/60 L 96 O2 Flow Rate 01/07/23 08:41 6 01/07/23 05:01 01/07/23 05:00 01/07/23 04:45 01/07/23 04:30 01/07/23 04:15 01/07/23 04:01 01/07/23 04:00 01/07/23 03:47 01/07/23 03:45 01/07/23 04:00 01/07/23 03:30 01/07/23 03:15 01/07/23 03:01 01/07/23 03:00 01/07/23 02:45 01/07/23 02:30 01/07/23 02:16 01/07/23 02:15 01/07/23 02:00 01/07/23 01:45 01/07/23 01:30 01/07/23 01:16 01/07/23 01:15 01/07/23 01:01 01/07/23 01:00 01/07/23 00:45 01/07/23 00:30 01/07/23 00:15 01/07/23 00:00 01/06/23 23:45 01/06/23 23:30 01/06/23 23:19 01/06/23 23:15 01/06/23 23:00 01/06/23 22:46 01/06/23 22:45 01/06/23 22:30 01/06/23 22:16 01/06/23 22:15 01/06/23 22:00 01/06/23 21:46 01/06/23 21:45 01/06/23 21:30 01/06/23 21:16 Laboratory Results 01/07/23 04:53 01/07/23 04:53 Diagnostic Findings cxr (my interp of image) increasing vascular congestion/pulmonary edema / mildly so
[2023-01-07 09:59] LABS: Base Excess VBG -2.8 mEq/L; HCO3 VBG 24 mmol/L; Oxygen Saturation VBG < 60.0 %; PCO2 VBG 49 mmHg (38-50); PO2 VBG 29 mmHg
--- NOTE | 2023-01-07 11:15 | Gastrointestinal Consultation ---
Date of Consultation January 07, 2023 Assessment & Plan (1) Septic shock: (2) Transaminitis: Pt is a 72 yo female currently admitted w septic shock w unclear source of infection. Liver appears cirrhotic on non-contrasted CT abd/pelvis scan yesterday. However U/S liver, contrasted CT scan from 01/04, and outpt liver imaging studies from this year showed normal appearing liver, no thrombocytopenia and no coagulopathy making cirrhosis less likely. She does have elevated LFTs which is improving and may be related to her infectious process. - Sepsis management per ID and primary team - IVF and IV antibx support - ? cholecystitis noted on U/S. Can consider HIDA + Surgery eval - Recommend MRCP once she is more stable and mentally more alert to follow instructions - US guided paracentesis w fluid analysis to r/o peritonitis, SAAG calculation. This can also be done when she's more alert. - OP f/u in GI clinic for further workup to r/o cirrhosis - Pls recall GI prn Supervising Physician Co-Signing Physician Notes I performed a history and physical examination of the patient today, including specifically on physical exam - soft abdomen. I have discussed the patient's management with the advanced practitioner. Please refer to the nurse practitioner's note for the documented findings and plan of care. I am not convinced she has Cirrhosis however this can be further evaluated once she recovers from her ongoing Sepsis with MOF. Consider MRCP to evaluate a biliary etiology for her elevated LFTs. History of Present Illness Reason for Consultation: Cirrhosis Requesting Physician: Dr. Miguelangel Gomez Attending Physician: Dr. Cassandra Hart History of Present Illness Pt is a 72 yo female seen today for cirrhosis evaluation. She is very stuporous, unable to follow instructions/answer questions. Inpt and Outpt charts reviewed. 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 She presented 3 days ago w falls, and back pain. Found to have septic shock with source initially suspected to be UTI related. It was note that her LFTs are elevated which is improving. Initial CT abd/pelvis w contrast and liver u/s on 01/04, 01/05 respectively showed unremarkable liver though she does have anasarca and ascites in abd. Non contrasted CT abd/pelvis yesterday showed liver appears cirrhotic. Allergies Allergy/AdvReac Type Severity Reaction Status Date / Time methadone Allergy Severe "couldn't Verified 12/13/22 16:53 swallow/eyes coming out of head" nickel Allergy Severe swelling Verified 12/13/22 16:53 and infections nitroglycerin Allergy Intermediate DECREASED Verified 12/13/22 16:53 BP propoxyphene Allergy Intermediate edema to Verified 12/13/22 16:53 face/lips/tongue diclofenac Allergy Mild Rash Verified 12/13/22 16:53 hydrocodone Allergy Mild "severe Verified 12/13/22 16:53 constipation" levofloxacin [From Levaquin] Allergy Mild nausea/vomi Verified 12/13/22 16:53 ting Penicillins Allergy Mild severe Verified 12/13/22 16:53 diarrhea/rash sitagliptin [From Januvia] Allergy Mild rash Verified 03/21/19 18:20 "blood blisters" strawberry Allergy Mild Diarrhea Verified 03/21/19 18:20 Home Medications Medication Instructions Recorded Confirmed Type aspirin 81 mg tablet,delayed 81 mg PO QAM 11/06/18 01/04/23 History release atorvastatin 40 mg tablet 40 mg PO QPM 11/06/18 01/04/23 History buspirone 15 mg tablet 15 mg PO BID 11/06/18 01/04/23 History clopidogrel 75 mg tablet 75 mg PO QAM 11/06/18 01/04/23 History glipizide 10 mg tablet 10 mg PO QAM 11/06/18 01/04/23 History loratadine 10 mg tablet 10 mg PO QAM 11/06/18 01/04/23 History albuterol sulfate 90 mcg/actuation 2 puff inhalation Q4 PRN Shortness 11/16/18 01/04/23 History aerosol inhaler (Ventolin HFA) Of Breath dicyclomine 10 mg capsule 10 mg PO TID PRN Abdominal Pain 01/11/19 01/04/23 History calcium carbonate 600 mg calcium 600 mg PO BID 03/21/19 01/04/23 History (1,500 mg) tablet (Calcium) cholecalciferol (vitamin D3) 125 5,000 unit PO BID 03/21/19 01/04/23 History mcg (5,000 unit) tablet ondansetron 4 mg disintegrating 4 mg PO Q8H PRN Nausea 03/21/19 01/04/23 History tablet pantoprazole 40 mg tablet,delayed 40 mg PO DAILY 03/21/19 01/04/23 History release sucralfate 1 gram tablet (Carafate) 1 g PO ACHS 03/21/19 01/04/23 History oxycodone 5 mg tablet 5 mg PO Q6H PRN pain #14 tabs 10/25/19 01/04/23 Rx Bifidobacterium infantis 4 mg 4 mg PO DAILY 12/13/22 01/04/23 History capsule (Align) ascorbic acid (vitamin C) 500 mg 500 mg PO DAILY 12/13/22 01/04/23 History tablet (Vitamin C) docusate sodium 50 mg capsule 50 mg PO HS 12/13/22 01/04/23 History duloxetine 30 mg capsule,delayed 30 mg PO AMHS 12/13/22 01/04/23 History release fluticasone fur. 100 mcg-umeclid 1 inh inhalation DAILY 12/13/22 01/04/23 History 62.5 mcg-vilant 25 mcg inhalat.powder (Trelegy Ellipta) glipizide 10 mg tablet 5 mg PO QPM 12/13/22 01/04/23 History ipratropium 0.5 mg-albuterol 3 mg 3 ml inhalation Q4 PRN Shortness 12/13/22 01/04/23 History (2.5 mg base)/3 mL nebulization Of Breath Or Wheezing soln lidocaine 4 % topical patch 1 patch topical DAILY PRN Pain 12/13/22 01/04/23 History menthol 0.44 %-zinc oxide 20.6 % 1 applic topical DIRECTED PRN 12/13/22 01/04/23 History topical ointment (Calmoseptine) Sores on bottom nicotine 14 mg/24 hr daily 1 patch transdermal .DAILY 12/13/22 01/04/23 History transdermal patch DIRECTED nystatin 100,000 unit/gram topical 1 applic topical TID 12/13/22 01/04/23 History powder (Nyamyc) potassium chloride 20 mEq 20 meq PO .DAILY UD 12/13/22 01/04/23 History tablet,extended release(part/cryst) zinc 50 mg tablet 50 mg PO DAILY 12/13/22 01/04/23 History cyclobenzaprine 5 mg tablet 5 mg PO BID PRN muscle spasm #14 12/22/22 01/04/23 Rx tabs furosemide 20 mg tablet 20 mg PO QAM #30 tabs 12/22/22 01/04/23 Rx metoprolol succinate 25 mg 25 mg PO QAM 30 days #30 tabs 12/22/22 01/04/23 Rx tablet,extended release 24 hr spironolactone 25 mg tablet 12.5 mg PO DAILY 30 days #15 tabs 12/22/22 01/04/23 Rx nicotine 7 mg/24 hr daily 14 mg transdermal QAM #7 ea 12/24/22 01/04/23 Rx transdermal patch sodium chloride 7 % for 4 ml inhalation BID 01/04/23 01/04/23 History nebulization Patient History Medical History Anemia Anxiety [place] esophagus COPD (chronic obstructive pulmonary disease) inhaler prn Coronary artery disease, occlusive Critical limb ischemia with history of revascularization of same extremity RLE CVA (cerebral vascular accident) 2008--slight left side weakness (no assistive devices)--follows with Dr. 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 Obesity (BMI 30.0-34.9) On anticoagulant therapy plavix daily Osteoarthritis PVD (peripheral vascular disease) Right upper lobe pulmonary nodule Surgical History H/O: hysterectomy History of appendectomy History of bilateral cataract extraction History of bilateral tubal ligation History of bronchoscopy History of cardiac cath x2 both @ [facility]--2000 with 1 stent/2003--no stent, instead fem-pop bypass History of carotid endarterectomy 2009 on right side History of colonoscopy with polypectomy History of dilatation and curettage x3 History of endoscopic sinus surgery History of esophagogastroduodenoscopy (EGD) History of heart artery stent x1 before 2000? @ [facility] History of repair of right rotator cuff x2 History of tooth extraction most teeth Status post femoral-popliteal bypass surgery 2004 Status post femoropopliteal bypass surgery 11/06/[address] Jara---thrombectomy/Femoral-femoral bypass Family History Sister Family history of diabetes mellitus Family history of esophageal cancer Family hx of colon cancer Sister Family history of diabetes mellitus Sister Family history of diabetes mellitus Sister Family history of diabetes mellitus Sister Family history of diabetes mellitus Sister Family history of diabetes mellitus Sister Family history of diabetes mellitus Brother Family history of diabetes mellitus Brother Family history of diabetes mellitus Brother Family history of diabetes mellitus Other Diabetes No family history of adverse response to anesthesia Stroke Social History Smoking Status: Unknown if ever smoked Tobacco Type: Cigarettes Cigarettes Per Day: 20-40; Second Hand Exposure: Yes; Do You Dip or Chew Tobacco: No; Hx Alcohol Use: No Hx Substance Use: No Preferred Language: Kiswahili Communication Ability: Effective Magisterial District Judge Required: No Beliefs That Will Affect Care: None Current Living Situation: Family Current Living Situation Comment: Lives with daughter Feels Safe at Home: No Is there a partner from a previous relationship who is making you feel unsafe now?: No Any Concerns about Your Family Situation: No Wou ld You Like to Speak to Someone About Your Situation: No Assistive Devices: Bedside Commode, Oxygen - Continuous, Stair Lift and Walker Review of Systems Review of Systems: Unobtainable due to reduced consciousness Physical Exam Constitutional: + ill appearing and + lethargic Eyes: PERRL, conjunctivae normal, anicteric sclerae ENMT: external ear and nose normal, oropharynx normal Respiratory: Diminished lung sounds Cardiovascular: RRR, no murmur, no edema Gastrointestinal (Abdomen): Mild distension, BS hypoactive Skin: no rashes, warm and dry no jaundice Neurologic: Motor/Sensory: no asterixis Psychiatric: Stuporous Lymphatic: no lymphedema Results & Data Vital Signs (Past 12 Hours) Vital Signs Temp Pulse Pulse Resp BP Pulse Ox O2 Del Method 01/07/23 10:16 Nasal Cannula 01/07/23 09:16 62 18 96 01/07/23 09:16 98/64 L 01/07/23 09:15 61 17 96 01/07/23 09:01 60 20 01/07/23 09:01 86/61 L 01/07/23 09:00 60 17 01/07/23 08:46 106/61 01/07/23 08:46 60 13 01/07/23 08:45 62 15 100 01/07/23 08:31 62 20 92 01/07/23 08:31 145/104 H 01/07/23 08:30 62 19 92 01/07/23 08:15 60 16 96 01/07/23 08:01 108/77 01/07/23 08:01 62 16 100 01/07/23 08:00 61 19 96 01/07/23 07:45 61 18 88 L 01/07/23 07:45 101/64 01/07/23 07:30 58 L 22 90 01/07/23 07:30 81/61 L 01/07/23 07:15 59 L 16 92 01/07/23 07:15 85/62 L 01/07/23 07:05 61 16 90 01/07/23 07:05 100/65 01/07/23 07:01 61 14 92 01/07/23 07:00 60 14 92 01/07/23 06:45 61 17 91 01/07/23 06:45 82/62 L 01/07/23 06:30 62 17 94 01/07/23 06:30 105/61 01/07/23 06:16 60 20 91 01/07/23 06:16 94/52 L 01/07/23 06:15 60 15 94 01/07/23 06:02 61 26 H 94 01/07/23 06:02 89/52 L 01/07/23 06:00 67 18 92 01/07/23 05:46 88/55 L 01/07/23 05:46 61 19 92 01/07/23 05:45 59 L 17 92 01/07/23 05:31 107/37 L 01/07/23 05:31 60 19 91 01/07/23 05:30 61 19 92 01/07/23 05:16 62 18 94 01/07/23 05:16 88/60 L 01/07/23 05:15 61 15 94 01/07/23 08:41 60 18 92 Nasal Cannula 01/07/23 05:01 62 16 92/57 L 69 L 01/07/23 05:00 62 22 72 L 01/07/23 04:45 61 15 101/64 85 L 01/07/23 04:30 62 20 101/60 82 L 01/07/23 04:15 61 17 89/63 L 88 L 01/07/23 04:01 61 14 98/61 L 91 01/07/23 04:00 62 15 87 L 01/07/23 03:47 60 17 114/62 92 01/07/23 03:45 60 22 86 L 01/07/23 04:00 36.4 C L 01/07/23 03:30 62 18 100/63 94 01/07/23 03:15 61 19 101/65 91 01/07/23 03:01 61 15 96/55 L 92 01/07/23 03:00 62 25 H 90 01/07/23 02:45 61 20 94/59 L 88 L 01/07/23 02:30 62 21 97/72 L 81 L 01/07/23 02:16 61 17 95/62 L 83 L 01/07/23 02:15 62 17 83 L 01/07/23 02:00 62 22 106/62 82 L 01/07/23 01:45 62 15 98/61 L 80 L 01/07/23 01:30 62 18 95/65 L 84 L 01/07/23 01:16 61 18 98/58 L 85 L 01/07/23 01:15 63 20 85 L 01/07/23 01:01 62 22 100/50 L 82 L 01/07/23 01:00 60 18 85 L 01/07/23 00:45 61 23 98/64 L 86 L 01/07/23 00:30 61 24 93/65 L 81 L 01/07/23 00:15 61 22 99/61 L 81 L 01/07/23 00:00 62 21 100/61 86 L 01/06/23 23:45 61 12 92/62 L 86 L 01/06/23 23:30 60 16 98/63 L 85 L 01/06/23 23:19 61 15 97/56 L 86 L 01/06/23 23:15 62 19 84 L O2 Flow Rate 01/07/23 10:16 4 01/07/23 09:16 01/07/23 09:16 01/07/23 09:15 01/07/23 09:01 01/07/23 09:01 01/07/23 09:00 01/07/23 08:46 01/07/23 08:46 01/07/23 08:45 01/07/23 08:31 01/07/23 08:31 01/07/23 08:30 01/07/23 08:15 01/07/23 08:01 01/07/23 08:01 01/07/23 08:00 01/07/23 07:45 01/07/23 07:45 01/07/23 07:30 01/07/23 07:30 01/07/23 07:15 01/07/23 07:15 01/07/23 07:05 01/07/23 07:05 01/07/23 07:01 01/07/23 07:00 01/07/23 06:45 01/07/23 06:45 01/07/23 06:30 01/07/23 06:30 01/07/23 06:16 01/07/23 06:16 01/07/23 06:15 01/07/23 06:02 01/07/23 06:02 01/07/23 06:00 01/07/23 05:46 01/07/23 05:46 01/07/23 05:45 01/07/23 05:31 01/07/23 05:31 01/07/23 05:30 01/07/23 05:16 01/07/23 05:16 01/07/23 05:15 01/07/23 08:41 6 01/07/23 05:01 01/07/23 05:00 01/07/23 04:45 01/07/23 04:30 01/07/23 04:15 01/07/23 04:01 01/07/23 04:00 01/07/23 03:47 01/07/23 03:45 01/07/23 04:00 01/07/23 03:30 01/07/23 03:15 01/07/23 03:01 01/07/23 03:00 01/07/23 02:45 01/07/23 02:30 01/07/23 02:16 01/07/23 02:15 01/07/23 02:00 01/07/23 01:45 01/07/23 01:30 01/07/23 01:16 01/07/23 01:15 01/07/23 01:01 01/07/23 01:00 01/07/23 00:45 01/07/23 00:30 01/07/23 00:15 01/07/23 00:00 01/06/23 23:45 01/06/23 23:30 01/06/23 23:19 01/06/23 23:15
--- NOTE | 2023-01-07 11:31 | Cardiology Progress Note ---
Date of Service January 07, 2023 Assessment & Plan (1) Septic shock: (2) Stress fracture of sacrococcygeal region: (3) Elevated troponin: (4) Severe mitral regurgitation: (5) ASCVD (arteriosclerotic cardiovascular disease): Plan Continue dual antiplatelet therapy without interruption given the recent drug- eluting stent implantation to the left main coronary artery Beta-ragini therapy remains on hold due to hypotension. Critical Care mentions the possibility of whether or not MitraClip might be considered. Patient is listed as having an nickel allergy, which is a clip component and a contraindication to MitraClip therapy. Patient appears to have multiple existing comorbidities that lead me to believe that the associated risks are greater than the perceived benefit of reducing the degree of mitral regurgitation. Admission and Anticipated Discharge Date Admission Date: January 05, 2023 Supervising Physician Co-Signing Physician Notes Supervising Physician Attestation: I have personally performed a history and physical examination on the patient. I agree with the physician insurance legal assistant's findings and plan as documented with the following additions. Subjective: Patient lethargic. Due to worsening renal function, and low urine output norepinephrine reinitiated this morning. Exam: General: Somnolent, ill in appearance Cardiovascular: Regular, 2/6 systolic murmur, no edema Abdomen: Soft, nontender on palpation Assessment and Plan: Medically complex, critically ill 72-year-old female. -Critical care, infectious disease, nephrology input noted and appreciated. -Recommend ongoing supportive care. -Given her complex left main/LAD stent due to continue aspirin and clopidogrel without interruption. -Poor candidate for mitral valve intervention. -Agree with midodrine for blood pressure support DVT prophylaxis: Consider SCDs for DVT prophylaxis. Nnamdi Martell, Subjective Chart revealed. Unable to obtain information from the patient today. Examined in the ICU, Room 108. Interim provider documentation, vitals, labs, and telemetry reviewed. Telemetry: Sinus in the 70's. Review of Systems Review of Systems: A complete and accurate review of systems was unable to be obtained due to the patient's condition. Physical Exam Physical Exam: General: Acute on chronically ill appearing. Lethargic. Mumbling. HENT: Normocephalic. Atraumatic. Neck: Right IJ catheter. Heart: Regular at 70 bpm. Systolic murmur. No diastolic murmur. Lungs: Clear anteriorly. Abdomen: +BS. Soft. Nontender. Extremities: Cool but no cyanotic. No peripheral edema. Limited neurological examination is without focal deficits. Pulses: Posterior tibial=0/4. Results & Data Vital Signs (Past 12 Hours) Vital Signs Temp Pulse Pulse Resp BP Pulse Ox O2 Del Method 01/07/23 10:16 Nasal Cannula 01/07/23 09:16 62 18 96 01/07/23 09:16 98/64 L 01/07/23 09:15 61 17 96 01/07/23 09:01 60 20 01/07/23 09:01 86/61 L 01/07/23 09:00 60 17 01/07/23 08:46 106/61 01/07/23 08:46 60 13 01/07/23 08:45 62 15 100 01/07/23 08:31 62 20 92 01/07/23 08:31 145/104 H 01/07/23 08:30 62 19 92 01/07/23 08:15 60 16 96 01/07/23 08:01 108/77 01/07/23 08:01 62 16 100 01/07/23 08:00 61 19 96 01/07/23 07:45 61 18 88 L 01/07/23 07:45 101/64 01/07/23 07:30 58 L 22 90 01/07/23 07:30 81/61 L 01/07/23 07:15 59 L 16 92 01/07/23 07:15 85/62 L 01/07/23 07:05 61 16 90 01/07/23 07:05 100/65 01/07/23 07:01 61 14 92 01/07/23 07:00 60 14 92 01/07/23 06:45 61 17 91 01/07/23 06:45 82/62 L 01/07/23 06:30 62 17 94 01/07/23 06:30 105/61 01/07/23 06:16 60 20 91 01/07/23 06:16 94/52 L 01/07/23 06:15 60 15 94 01/07/23 06:02 61 26 H 94 01/07/23 06:02 89/52 L 01/07/23 06:00 67 18 92 01/07/23 05:46 88/55 L 01/07/23 05:46 61 19 92 01/07/23 05:45 59 L 17 92 01/07/23 05:31 107/37 L 01/07/23 05:31 60 19 91 01/07/23 05:30 61 19 92 01/07/23 05:16 62 18 94 01/07/23 05:16 88/60 L 01/07/23 05:15 61 15 94 01/07/23 08:41 60 18 92 Nasal Cannula 01/07/23 05:01 62 16 92/57 L 69 L 01/07/23 05:00 62 22 72 L 01/07/23 04:45 61 15 101/64 85 L 01/07/23 04:30 62 20 101/60 82 L 01/07/23 04:15 61 17 89/63 L 88 L 01/07/23 04:01 61 14 98/61 L 91 01/07/23 04:00 62 15 87 L 01/07/23 03:47 60 17 114/62 92 01/07/23 03:45 60 22 86 L 01/07/23 04:00 36.4 C L 01/07/23 03:30 62 18 100/63 94 01/07/23 03:15 61 19 101/65 91 01/07/23 03:01 61 15 96/55 L 92 01/07/23 03:00 62 25 H 90 01/07/23 02:45 61 20 94/59 L 88 L 01/07/23 02:30 62 21 97/72 L 81 L 01/07/23 02:16 61 17 95/62 L 83 L 01/07/23 02:15 62 17 83 L 01/07/23 02:00 62 22 106/62 82 L 01/07/23 01:45 62 15 98/61 L 80 L 01/07/23 01:30 62 18 95/65 L 84 L 01/07/23 01:16 61 18 98/58 L 85 L 01/07/23 01:15 63 20 85 L 01/07/23 01:01 62 22 100/50 L 82 L 01/07/23 01:00 60 18 85 L 01/07/23 00:45 61 23 98/64 L 86 L 01/07/23 00:30 61 24 93/65 L 81 L 01/07/23 00:15 61 22 99/61 L 81 L 01/07/23 00:00 62 21 100/61 86 L 01/06/23 23:45 61 12 92/62 L 86 L 01/06/23 23:30 60 16 98/63 L 85 L Laboratory Results Cardiac Enzymes 01/06/23 Range/Units 14:01 AST 365 H (13-39) U/L CBC 01/07/23 Range/Units 04:53 WBC 12.95 H (4.8-10.8) K/ul RBC 2.91 L (4.20-5.40) M/uL Hgb 7.6 L (12.0-16.0) g/dl Hct 24.3 L (37.0-47.0) % Plt Count 281 (130-400) K/uL Neut # (Auto) 10.93 H (1.40-6.50) K/uL Lymph # (Auto) 0.63 L (1.20-3.40) K/uL [place] # (Auto) 1.19 H (0.11-0.59) K/uL Eos # (Auto) 0.08 (0.00-0.50) K/uL Baso # (Auto) 0.03 (0.00-0.20) K/uL Comprehensive Metabolic Panel 01/06/23 01/07/23 Range/Units 14:01 04:53 Sodium 135 L 131 L (136-145) mmol/L Potassium 5.3 H 4.4 (3.5-5.1) mmol/L Chloride 104 100 (98-107) mmol/L Carbon Dioxide 15 L 23 (21-32) mmol/L BUN 38 H 42 H (6-23) mg/dl Creatinine 1.98 H D 2.49 H D (0.6-1.2) mg/dl Glucose 96 225 H (70-99(Fasting)) mg/dl Calcium 8.7 8.2 L (8.6-10.3) mg/dl AST 365 H (13-39) U/L ALT 313 H (7-52) U/L Alkaline Phosphatase 313 H (34-104) U/L Total Protein 6.3 (6.0-8.3) gm/dl Albumin 3.9 (3.4-5.0) gm/dl Intake and Output 01/06/23 01/07/23 01/07/23 22:59 06:59 14:59 Intake Total 3180.354 / 3516.064 100 / 3516.064 1371.667 / 1371.667 Output Total 123 / 177 14 / 177 Balance 3057.354 / 3339.064 86 / 3339.064 1371.667 / 1371.667 Intake: IV 2880.354 / 3216.064 100 / 3216.064 1371.667 / 1371.667 Norepinephrine/D5w 4 mg In 250 30.354 / 166.064 0 / 0 ml @ 0 MCG/KG/MIN IV .Q0M [facility] Rx#:[id number] Piperacillin/Tazobactam 4.5 gm 100 / 300 100 / 300 45 / 45 In Dextrose 5% Mini-B 100 ml @ 25 mls/hr IV Q8H [facility] Rx#: [id number] Plasma-Lyte A 250 ml @ 999 mls/ 250 / 250 hr IV .Q16M [facility] Rx#:[id number] Sodium Bicarbonate 8.4% 150 meq 1326.667 / 1326.667 In Dextrose 5% 1,000 ml @ 100 mls/hr IV .[id number] [facility] Rx#: [id number] Sodium Chloride 0.9% 1,000 ml @ 2000.000 / 2000.000 80 mls/hr IV .[id number] [facility] Rx#: [id number] Sodium Chloride 0.9% 500 ml @ 500 / 500 80 mls/hr IV .[id number] [facility] Rx#: [id number] Oral 300 / 300 Output: Urine Amount (Catheter) 123 / 175 12 / 175 [place]/Indwelling 123 / 175 12 / 175 # Bowel Movements 2 / 2 Other: Weight 79.8 kg Weight Measurement Method Built in [facility]
--- NOTE | 2023-01-07 11:42 | Hospitalist Progress Note ---
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 Postoperatively patient cardiac cardiac arrest which was PEA arrest and required chest compressions for 30 seconds and she was transferred to ICU for management of cardiogenic shock. Cardiac cath done on November 10 was found to have multivessel disease. Patient opted to go for PCI instead of CT surgery. She was noted to have severe mitral regurgitation on echo in November 11. She underwent PCI to LM/LAD on November 12 and tolerated the procedure well. Started Toprol-XL and to follow outpatient. She also tested COVID infection on November 22. Improved with 1 day of Decadron remdesivir and discharged home on home oxygen and to complete her steroid taper. She is requiring oxygen 2 L on ambulation 3 L overnight. She was discharged on IV Zosyn to complete on December 16. Intraoperative cultures also showed Kayla and she is on Diflucan to complete on December 16. To follow-up with outpatient vascular as well as infectious disease. Lives at home with her daughter. Ambulates without support. Severe sepsis SIRS plus lactic acidosis secondary to complicated UTI/ vs wound infection? - lactic acid persistently at 3 and above - initial UA negative, repeat UA w/ positive bacteria - await cultx - in ED (01/05) found to retain urine - Lind catheter placed and drained almost 900cc - blood cultx pending - fungal blood cultx pending - pt w/ hx of suprapubic wound (and wound vac) - discussed w/ body liner - wound vac removed - concern for fungal skin infection - wound cultx ordered - finished IV zosyn and fluconazole on 12/16 - [facility] ID contacted and consult placed - switched from ceftriaxone to zosyn and fluconazole for now - overnight pt hypotensive and required transfer to ICU - per ID - multiple possible sources of infection however no clear source identified - recommend to involve GI and gen. surgery for poss. cholecystitis and elev. LFTs - consults placed Troponin elevation secondary to illness HTN, patient BP currently borderline - became hypotensive overnight despite fluid resusc. -> required transfer to ICU Pt intermittently on levophed - now back on levophed d/t poor urine output and low BP Hyperkalemia - possibly secondary to home medications, spironolactone on hold - persistent hyperkalemia despite insulin, lokelma started - nephrology consulted and following closely Urinary retention, PRAKASH, ATN - lind cath placed in ED (900cc drained immediately) - urine output now extremely poor 2/2 ATN - poss. cardiorenal or hepatorenal syndrome ? -cont. w/ pressor support -cont. bicarb -nephrology consulted and following closely -cannot r/o need for dialysis next 48 hrs but none needed today - if need arises pt may need CRRT which is not avilable here and may consider transfer -of note, transfer vs. hospice care discussed w/ daughter at the bedside today, prognosis guarded Transaminitis secondary to hepatic congestion from CHF vs secondary to sepsis ? hold statin for now fluconazole stopped (only received 2 doses) Liver US obtained - 1. No sonographic abnormality of the liver. 2. Thickening of the gallbladder wall and pericholecystic edema which may be reactive in this patient with ascites, less likely reflecting acute cholecystitis. Cordero's sign cannot be assessed as patient has external sources of pain. If there is clinical concern for acute cholecystitis, nuclear medicine HIDA study can be performed. Hep panel ordered - negative LFTs trending down chronic diastolic heart failure (EF 55 to 60%, TTE 2022), equivocal volume status given congestion on x-ray, patient intravascularly dry Pt required fluid resuscitation, received albumin and IVF Troponin elevation secondary to illness Cardiology consulted - -Given her complex left main/LAD stent due to continue aspirin and clopidogrel without interruption. -Poor candidate for mitral valve intervention. -Agree with midodrine for blood pressure support Chronic conditions: valvular heart disease (severe MR, mild TR) hx CAD status post stent PVD status post surgery CVA COPD, lung status at baseline , uses 2L of suppl. O2 Acure resp. failure w/ hypoxia - currently oxygen requirement increased - secondary to poss. sepsis, CHF exacerb, fluid resuscitation, renal failure hyperlipidemia, on statin Rx, hold for now d/t elev. LFTs DM 2 on oral medications, well-controlled as of recent hemoglobin A1c of 6.8 this month chronic anemia, hemoglobin at baseline Traumatic tailbone fracture, ambulatory dysfunction, Lidocaine patch trial for this tailbone fracture ongoing tobacco abuse. PT OT eval once medically stable DVT prophylaxis. Lovenox subcu DNR as per patient. Patient's daughter - Ms. Diamond Braxton, contact #[phone]. Admission and Anticipated Discharge Date Admission Date: January 05, 2023 Subjective Pt seen in follow up of sepsis Pt initially admitted for presumed UTI and started on ceftriaxone She was weak and somnolent, and lactate persistently at 3 and above, also elevated K and received IV insulin , also started on lokelma Given her hx of CHF, received gentle fluid resuscitation, also received albumin on admission In the ED - pt was found to retain urine - almost 900cc retained by Lind placed Has hx of suprapubic wound and wound vac - discussed w/ body liner - wound vac removed - concern for skin fungal infection wound cultx ordered Pt was on IV zosyn and fluconazole till 12/16 by [facility] - [facility] contacted and consult placed Ceftriaxone switched to zosyn and fluconazole Pt became hypotensive overnight and required transition to ICU In ICU intermittently on levophed, levophed had to be restarted d/t poor urine output, low BP, worsening renal function. Nephrology following closely as well. ID also consulted - fluconazole stopped - multiple possibilities for infectious source however no clear source identified - recommending involving GI and gen. surg. for poss. cholecystitis, elev. LFTs Had a long discussion with patient's daughter at the bedside today, she was earlier updated by automobile carpets molder, and she was considering transfer to [place]. She then told me that patient did not want to in the hospital, and she would like to respect her wishes, and was thinking about the possibility of hospice. After further discussion, patient's daughter decided to discuss this with her sister. She will let us know how she wishes us to proceed further after she discusses with her sister. Review of Systems Review of Systems: All systems reviewed & are unremarkable except as noted in Subjective Physical Exam Physical Exam: GENERAL: WD/WN F in NAD, drowsy HEENT: Pale palpebral conjunctivae, dry buccal mucosa, now on bipap NECK : Supple, no tenderness CHEST : Decreased breath sounds, no tenderness HEART : RRR, systolic murmur ABDOMEN: Some distention, nontender, + bowel sounds EXTREMITIES : Minimal LE swelling, no LE tenderness, moves extremities NEUROLOGIC : drowsy, only answers some questions appropriately, speech fluent and soft, moves extremities SKIN: Pallor, warm Results & Data Results & Data Vital Signs (Past 12 Hours) Vital Signs Temp Pulse Pulse Resp BP Pulse Ox O2 Del Method 01/07/23 10:16 Nasal Cannula 01/07/23 09:16 62 18 96 01/07/23 09:16 98/64 L 01/07/23 09:15 61 17 96 01/07/23 09:01 60 20 01/07/23 09:01 86/61 L 01/07/23 09:00 60 17 01/07/23 08:46 106/61 01/07/23 08:46 60 13 01/07/23 08:45 62 15 100 01/07/23 08:31 62 20 92 01/07/23 08:31 145/104 H 01/07/23 08:30 62 19 92 01/07/23 08:15 60 16 96 01/07/23 08:01 108/77 01/07/23 08:01 62 16 100 01/07/23 08:00 61 19 96 01/07/23 07:45 61 18 88 L 01/07/23 07:45 101/64 01/07/23 07:30 58 L 22 90 01/07/23 07:30 81/61 L 01/07/23 07:15 59 L 16 92 01/07/23 07:15 85/62 L 01/07/23 07:05 61 16 90 01/07/23 07:05 100/65 01/07/23 07:01 61 14 92 01/07/23 07:00 60 14 92 01/07/23 06:45 61 17 91 01/07/23 06:45 82/62 L 01/07/23 06:30 62 17 94 01/07/23 06:30 105/61 01/07/23 06:16 60 20 91 01/07/23 06:16 94/52 L 01/07/23 06:15 60 15 94 01/07/23 06:02 61 26 H 94 01/07/23 06:02 89/52 L 01/07/23 06:00 67 18 92 01/07/23 05:46 88/55 L 01/07/23 05:46 61 19 92 01/07/23 05:45 59 L 17 92 01/07/23 05:31 107/37 L 01/07/23 05:31 60 19 91 01/07/23 05:30 61 19 92 01/07/23 05:16 62 18 94 01/07/23 05:16 88/60 L 01/07/23 05:15 61 15 94 01/07/23 08:41 60 18 92 Nasal Cannula 01/07/23 05:01 62 16 92/57 L 69 L 01/07/23 05:00 62 22 72 L 01/07/23 04:45 61 15 101/64 85 L 01/07/23 04:30 62 20 101/60 82 L 01/07/23 04:15 61 17 89/63 L 88 L 01/07/23 04:01 61 14 98/61 L 91 01/07/23 04:00 62 15 87 L 01/07/23 03:47 60 17 114/62 92 01/07/23 03:45 60 22 86 L 01/07/23 04:00 36.4 C L 01/07/23 03:30 62 18 100/63 94 01/07/23 03:15 61 19 101/65 91 01/07/23 03:01 61 15 96/55 L 92 01/07/23 03:00 62 25 H 90 01/07/23 02:45 61 20 94/59 L 88 L 01/07/23 02:30 62 21 97/72 L 81 L 01/07/23 02:16 61 17 95/62 L 83 L 01/07/23 02:15 62 17 83 L 01/07/23 02:00 62 22 106/62 82 L 01/07/23 01:45 62 15 98/61 L 80 L 01/07/23 01:30 62 18 95/65 L 84 L 01/07/23 01:16 61 18 98/58 L 85 L 01/07/23 01:15 63 20 85 L 01/07/23 01:01 62 22 100/50 L 82 L 01/07/23 01:00 60 18 85 L 01/07/23 00:45 61 23 98/64 L 86 L 01/07/23 00:30 61 24 93/65 L 81 L 01/07/23 00:15 61 22 99/61 L 81 L 01/07/23 00:00 62 21 100/61 86 L 01/06/23 23:45 61 12 92/62 L 86 L O2 Flow Rate 01/07/23 10:16 4 01/07/23 09:16 01/07/23 09:16 01/07/23 09:15 01/07/23 09:01 01/07/23 09:01 01/07/23 09:00 01/07/23 08:46 01/07/23 08:46 01/07/23 08:45 01/07/23 08:31 01/07/23 08:31 01/07/23 08:30 01/07/23 08:15 01/07/23 08:01 01/07/23 08:01 01/07/23 08:00 01/07/23 07:45 01/07/23 07:45 01/07/23 07:30 01/07/23 07:30 01/07/23 07:15 01/07/23 07:15 01/07/23 07:05 01/07/23 07:05 01/07/23 07:01 01/07/23 07:00 01/07/23 06:45 01/07/23 06:45 01/07/23 06:30 01/07/23 06:30 01/07/23 06:16 01/07/23 06:16 01/07/23 06:15 01/07/23 06:02 01/07/23 06:02 01/07/23 06:00 01/07/23 05:46 01/07/23 05:46 01/07/23 05:45 01/07/23 05:31 01/07/23 05:31 01/07/23 05:30 01/07/23 05:16 01/07/23 05:16 01/07/23 05:15 01/07/23 08:41 6 01/07/23 05:01 01/07/23 05:00 01/07/23 04:45 01/07/23 04:30 01/07/23 04:15 01/07/23 04:01 01/07/23 04:00 01/07/23 03:47 01/07/23 03:45 01/07/23 04:00 01/07/23 03:30 01/07/23 03:15 01/07/23 03:01 01/07/23 03:00 01/07/23 02:45 01/07/23 02:30 01/07/23 02:16 01/07/23 02:15 01/07/23 02:00 01/07/23 01:45 01/07/23 01:30 01/07/23 01:16 01/07/23 01:15 01/07/23 01:01 01/07/23 01:00 01/07/23 00:45 01/07/23 00:30 01/07/23 00:15 01/07/23 00:00 01/06/23 23:45 Laboratory Results 01/07/23 01/07/23 01/07/23 Range/Units 11:36 09:49 09:49 WBC (4.8-10.8) K/ul RBC (4.20-5.40) M/uL Hgb (12.0-16.0) g/dl Hct (37.0-47.0) % MCV (80.0-100.0) fL MCH (25.0-34.0) pg MCHC (32.0-36.0) g/dL RDW Std Deviation (36.4-46.3) fL RDW Coeff of Shahrzad (11.5-14.5) % Plt Count (130-400) K/uL MPV (9.4-12.4) fL Immature Gran % (Auto) % Neut % (Auto) % Lymph % (Auto) % Nolan % (Auto) % Eos % (Auto) % Baso % (Auto) % Neut # (Auto) (1.40-6.50) K/uL Lymph # (Auto) (1.20-3.40) K/uL Nolan # (Auto) (0.11-0.59) K/uL Eos # (Auto) (0.00-0.50) K/uL Baso # (Auto) (0.00-0.20) K/uL Immature Gran # (Auto) (0.01-0.20) K/uL Absolute Nucleated RBC (0.00-0.12) K/uL Nucleated RBC % (auto) % Polychromasia Hypochromasia Anisocytosis VBG pH 7.30 L (7.36-7.41) VBG pCO2 49 (38-50) mmHg VBG pO2 29 mmHg VBG HCO3 24 mmol/L VBG O2 Saturation < 60.0 % VBG Base Excess -2.8 mEq/L Sodium (136-145) mmol/L Potassium (3.5-5.1) mmol/L Chloride (98-107) mmol/L Carbon Dioxide (21-32) mmol/L Anion Gap (3-11) BUN (6-23) mg/dl Creatinine (0.6-1.2) mg/dl Est Cr Clr Drug Dosing ml/min Est GFR ( Amer) ml/min Est GFR (Non-Af Amer) ml/min BUN/Creatinine Ratio (10-20) Glucose (70-99(Fasting)) mg/dl POC Glucose Pending (70-99) mg/dl POC Glucose (other) (70-99) mg/dl Lactate (0.4-2.0) mmol/L Calcium (8.6-10.3) mg/dl Phosphorus (2.5-4.9) mg/dl Magnesium (1.7-2.4) mg/dl Total Bilirubin (0.2-1.0) mg/dl GGT Pending AST (13-39) U/L ALT (7-52) U/L Alkaline Phosphatase (34-104) U/L Ammonia (18-72) umol/L Total Protein (6.0-8.3) gm/dl Albumin (3.4-5.0) gm/dl Globulin (2.5-4.0) gm/dl Albumin/Globulin Ratio (0.9-2) Procalcitonin (0-0.5) ng/ml Hepatitis A IgM Ab (NON-REACTIVE) Hep Bs Antigen (NON-REACTIVE) Hep Bs Ag Confirmation Hep B Core IgM Ab (NON-REACTIVE) Hepatitis C Ab (EIA) (NON-REACTIVE) 01/07/23 01/07/23 01/07/23 Range/Units 07:46 04:54 04:53 WBC (4.8-10.8) K/ul RBC (4.20-5.40) M/uL Hgb (12.0-16.0) g/dl Hct (37.0-47.0) % MCV (80.0-100.0) fL MCH (25.0-34.0) pg MCHC (32.0-36.0) g/dL RDW Std Deviation (36.4-46.3) fL RDW Coeff of Shahrzad (11.5-14.5) % Plt Count (130-400) K/uL MPV (9.4-12.4) fL Immature Gran % (Auto) % Neut % (Auto) % Lymph % (Auto) % Nolan % (Auto) % Eos % (Auto) % Baso % (Auto) % Neut # (Auto) (1.40-6.50) K/uL Lymph # (Auto) (1.20-3.40) K/uL Nolan # (Auto) (0.11-0.59) K/uL Eos # (Auto) (0.00-0.50) K/uL Baso # (Auto) (0.00-0.20) K/uL Immature Gran # (Auto) (0.01-0.20) K/uL Absolute Nucleated RBC (0.00-0.12) K/uL Nucleated RBC % (auto) % Polychromasia Hypochromasia Anisocytosis VBG pH (7.36-7.41) VBG pCO2 (38-50) mmHg VBG pO2 mmHg VBG HCO3 mmol/L VBG O2 Saturation % VBG Base Excess mEq/L Sodium 131 L (136-145) mmol/L Potassium 4.4 (3.5-5.1) mmol/L Chloride 100 (98-107) mmol/L Carbon Dioxide 23 (21-32) mmol/L Anion Gap 8 (3-11) BUN 42 H (6-23) mg/dl Creatinine 2.49 H D (0.6-1.2) mg/dl Est Cr Clr Drug Dosing 19.7 ml/min Est GFR ( Amer) 21.5 ml/min Est GFR (Non-Af Amer) 18.5 ml/min BUN/Creatinine Ratio 16.9 (10-20) Glucose 225 H (70-99(Fasting)) mg/dl POC Glucose 204 H (70-99) mg/dl POC Glucose (other) (70-99) mg/dl Lactate (0.4-2.0) mmol/L Calcium 8.2 L (8.6-10.3) mg/dl Phosphorus 3.6 (2.5-4.9) mg/dl Magnesium 2.0 (1.7-2.4) mg/dl Total Bilirubin (0.2-1.0) mg/dl GGT AST (13-39) U/L ALT (7-52) U/L Alkaline Phosphatase (34-104) U/L Ammonia (18-72) umol/L Total Protein (6.0-8.3) gm/dl Albumin (3.4-5.0) gm/dl Globulin (2.5-4.0) gm/dl Albumin/Globulin Ratio (0.9-2) Procalcitonin 0.78 H (0-0.5) ng/ml Hepatitis A IgM Ab (NON-REACTIVE) Hep Bs Antigen (NON-REACTIVE) Hep Bs Ag Confirmation Hep B Core IgM Ab (NON-REACTIVE) Hepatitis C Ab (EIA) (NON-REACTIVE) 01/07/23 01/06/23 01/06/23 Range/Units 04:53 21:15 16:21 WBC 12.95 H (4.8-10.8) K/ul RBC 2.91 L (4.20-5.40) M/uL Hgb 7.6 L (12.0-16.0) g/dl Hct 24.3 L (37.0-47.0) % MCV 83.5 D (80.0-100.0) fL MCH 26.1 (25.0-34.0) pg MCHC 31.3 L (32.0-36.0) g/dL RDW Std Deviation 53.3 H (36.4-46.3) fL RDW Coeff of Shahrzad 17.7 H (11.5-14.5) % Plt Count 281 (130-400) K/uL MPV 11.1 (9.4-12.4) fL Immature Gran % (Auto) 0.7 % Neut % (Auto) 84.4 % Lymph % (Auto) 4.9 % Nolan % (Auto) 9.2 % Eos % (Auto) 0.6 % Baso % (Auto) 0.2 % Neut # (Auto) 10.93 H (1.40-6.50) K/uL Lymph # (Auto) 0.63 L (1.20-3.40) K/uL Nolan # (Auto) 1.19 H (0.11-0.59) K/uL Eos # (Auto) 0.08 (0.00-0.50) K/uL Baso # (Auto) 0.03 (0.00-0.20) K/uL Immature Gran # (Auto) 0.09 (0.01-0.20) K/uL Absolute Nucleated RBC 0.31 H (0.00-0.12) K/uL Nucleated RBC % (auto) 2.4 % Polychromasia 1+ Hypochromasia Present Anisocytosis Present VBG pH (7.36-7.41) VBG pCO2 (38-50) mmHg VBG pO2 mmHg VBG HCO3 mmol/L VBG O2 Saturation % VBG Base Excess mEq/L Sodium (136-145) mmol/L Potassium (3.5-5.1) mmol/L Chloride (98-107) mmol/L Carbon Dioxide (21-32) mmol/L Anion Gap (3-11) BUN (6-23) mg/dl Creatinine (0.6-1.2) mg/dl Est Cr Clr Drug Dosing ml/min Est GFR ( Amer) ml/min Est GFR (Non-Af Amer) ml/min BUN/Creatinine Ratio (10-20) Glucose (70-99(Fasting)) mg/dl POC Glucose (70-99) mg/dl POC Glucose (other) 146 H 102 H (70-99) mg/dl Lactate (0.4-2.0) mmol/L Calcium (8.6-10.3) mg/dl Phosphorus (2.5-4.9) mg/dl Magnesium (1.7-2.4) mg/dl Total Bilirubin (0.2-1.0) mg/dl GGT AST (13-39) U/L ALT (7-52) U/L Alkaline Phosphatase (34-104) U/L Ammonia (18-72) umol/L Total Protein (6.0-8.3) gm/dl Albumin (3.4-5.0) gm/dl Globulin (2.5-4.0) gm/dl Albumin/Globulin Ratio (0.9-2) Procalcitonin (0-0.5) ng/ml Hepatitis A IgM Ab (NON-REACTIVE) Hep Bs Antigen (NON-REACTIVE) Hep Bs Ag Confirmation Hep B Core IgM Ab (NON-REACTIVE) Hepatitis C Ab (EIA) (NON-REACTIVE) 01/06/23 01/06/23 01/06/23 Range/Units 14:01 14:01 14:01 WBC (4.8-10.8) K/ul RBC (4.20-5.40) M/uL Hgb (12.0-16.0) g/dl Hct (37.0-47.0) % MCV (80.0-100.0) fL MCH (25.0-34.0) pg MCHC (32.0-36.0) g/dL RDW Std Deviation (36.4-46.3) fL RDW Coeff of Shahrzad (11.5-14.5) % Plt Count (130-400) K/uL MPV (9.4-12.4) fL Immature Gran % (Auto) % Neut % (Auto) % Lymph % (Auto) % Nolan % (Auto) % Eos % (Auto) % Baso % (Auto) % Neut # (Auto) (1.40-6.50) K/uL Lymph # (Auto) (1.20-3.40) K/uL Nolan # (Auto) (0.11-0.59) K/uL Eos # (Auto) (0.00-0.50) K/uL Baso # (Auto) (0.00-0.20) K/uL Immature Gran # (Auto) (0.01-0.20) K/uL Absolute Nucleated RBC (0.00-0.12) K/uL Nucleated RBC % (auto) % Polychromasia Hypochromasia Anisocytosis VBG pH (7.36-7.41) VBG pCO2 (38-50) mmHg VBG pO2 mmHg VBG HCO3 mmol/L VBG O2 Saturation % VBG Base Excess mEq/L Sodium 135 L (136-145) mmol/L Potassium 5.3 H (3.5-5.1) mmol/L Chloride 104 (98-107) mmol/L Carbon Dioxide 15 L (21-32) mmol/L Anion Gap 16 H (3-11) BUN 38 H (6-23) mg/dl Creatinine 1.98 H D (0.6-1.2) mg/dl Est Cr Clr Drug Dosing 24.2 ml/min Est GFR ( Amer) 28.3 ml/min Est GFR (Non-Af Amer) 24.5 ml/min BUN/Creatinine Ratio 19.2 (10-20) Glucose 96 (70-99(Fasting)) mg/dl POC Glucose (70-99) mg/dl POC Glucose (other) (70-99) mg/dl Lactate 4.8 H* (0.4-2.0) mmol/L Calcium 8.7 (8.6-10.3) mg/dl Phosphorus (2.5-4.9) mg/dl Magnesium (1.7-2.4) mg/dl Total Bilirubin 2.1 H (0.2-1.0) mg/dl GGT AST 365 H (13-39) U/L ALT 313 H (7-52) U/L Alkaline Phosphatase 313 H (34-104) U/L Ammonia 79.0 H (18-72) umol/L Total Protein 6.3 (6.0-8.3) gm/dl Albumin 3.9 (3.4-5.0) gm/dl Globulin 2.4 L (2.5-4.0) gm/dl Albumin/Globulin Ratio 1.6 (0.9-2) Procalcitonin (0-0.5) ng/ml Hepatitis A IgM Ab (NON-REACTIVE) Hep Bs Antigen (NON-REACTIVE) Hep Bs Ag Confirmation Hep B Core IgM Ab (NON-REACTIVE) Hepatitis C Ab (EIA) (NON-REACTIVE) 01/06/23 01/06/23 01/05/23 Range/Units 12:12 11:44 11:19 WBC (4.8-10.8) K/ul RBC (4.20-5.40) M/uL Hgb (12.0-16.0) g/dl Hct (37.0-47.0) % MCV (80.0-100.0) fL MCH (25.0-34.0) pg MCHC (32.0-36.0) g/dL RDW Std Deviation (36.4-46.3) fL RDW Coeff of Shahrzad (11.5-14.5) % Plt Count (130-400) K/uL MPV (9.4-12.4) fL Immature Gran % (Auto) % Neut % (Auto) % Lymph % (Auto) % Nolan % (Auto) % Eos % (Auto) % Baso % (Auto) % Neut # (Auto) (1.40-6.50) K/uL Lymph # (Auto) (1.20-3.40) K/uL Nolan # (Auto) (0.11-0.59) K/uL Eos # (Auto) (0.00-0.50) K/uL Baso # (Auto) (0.00-0.20) K/uL Immature Gran # (Auto) (0.01-0.20) K/uL Absolute Nucleated RBC (0.00-0.12) K/uL Nucleated RBC % (auto) % Polychromasia Hypochromasia Anisocytosis VBG pH (7.36-7.41) VBG pCO2 (38-50) mmHg VBG pO2 mmHg VBG HCO3 mmol/L VBG O2 Saturation % VBG Base Excess mEq/L Sodium (136-145) mmol/L Potassium (3.5-5.1) mmol/L Chloride (98-107) mmol/L Carbon Dioxide (21-32) mmol/L Anion Gap (3-11) BUN (6-23) mg/dl Creatinine (0.6-1.2) mg/dl Est Cr Clr Drug Dosing ml/min Est GFR ( Amer) ml/min Est GFR (Non-Af Amer) ml/min BUN/Creatinine Ratio (10-20) Glucose (70-99(Fasting)) mg/dl POC Glucose (70-99) mg/dl POC Glucose (other) 95 (70-99) mg/dl Lactate 5.8 H* (0.4-2.0) mmol/L Calcium (8.6-10.3) mg/dl Phosphorus (2.5-4.9) mg/dl Magnesium (1.7-2.4) mg/dl Total Bilirubin (0.2-1.0) mg/dl GGT AST (13-39) U/L ALT (7-52) U/L Alkaline Phosphatase (34-104) U/L Ammonia (18-72) umol/L Total Protein (6.0-8.3) gm/dl Albumin (3.4-5.0) gm/dl Globulin (2.5-4.0) gm/dl Albumin/Globulin Ratio (0.9-2) Procalcitonin (0-0.5) ng/ml Hepatitis A IgM Ab NON-REACTIVE (NON-REACTIVE) Hep Bs Antigen NON-REACTIVE (NON-REACTIVE) Hep Bs Ag Confirmation TNP Hep B Core IgM Ab NON-REACTIVE (NON-REACTIVE) Hepatitis C Ab (EIA) NON-REACTIVE (NON-REACTIVE) Medications Administered Current Inpatient Medications Acetaminophen (Acetaminophen 500 Mg Tab) 500 mg PO Q6H PRN PRN Reason: fever/pain Stop: 02/04/23 02:04 Albuterol (Albut/Ipratrop 3mg/0.5mg Neb 3 Ml Vial) 3 ml INH Q4 PRN; Protocol PRN Reason: Shortness Of Breath Or Wheezing Stop: 02/04/23 12:07 Last Admin: 01/06/23 08:04 Dose: 3 ml Aspirin (Aspirin 81 Mg Ectab) 81 mg PO QAM [facility] Stop: 02/04/23 08:59 Last Admin: 01/07/23 08:05 Dose: 81 mg Buspirone HCl (Buspirone 15 Mg Tab) 15 mg PO BID [facility] Stop: 02/04/23 08:59 Last Admin: 01/07/23 08:05 Dose: 15 mg Clopidogrel Bisulfate (Clopidogrel Bisulfate 75 Mg Tab) 75 mg PO QAM [facility] Stop: 02/04/23 08:59 Last Admin: 01/07/23 08:05 Dose: 75 mg Dextrose (Dextrose 50% 50 Ml Syringe) 25 - 50 ml IV UD PRN; Protocol PRN Reason: Hypoglycemia Protocol Stop: 02/04/23 06:56 Docusate Sodium (Docusate Sodium Syrup 100 Mg/10 Ml Udc) 50 mg PO HS [facility] Stop: 02/04/23 20:59 Last Admin: 01/06/23 20:46 Dose: 50 mg Duloxetine HCl (Duloxetine Hcl 30 Mg Cap) 30 mg PO AMHS [facility] Stop: 02/04/23 08:59 Last Admin: 01/07/23 08:04 Dose: 30 mg Fluconazole (Fluconazole 100 Mg Tab) 200 mg PO QAM [facility] Stop: 01/07/23 19:59 Last Admin: 01/06/23 08:28 Dose: 200 mg Fluticasone Furoate (Fluticasone Furoate 100mcg 14 Puffs/Inhaler) 1 puffs INH DAILY [facility]IAN; Protocol Stop: 02/04/23 08:59 Last Admin: 01/07/23 08:06 Dose: 1 puffs Glucagon (Glucagon For Inj 1 Mg Vial) 1 mg SQ UD PRN; Protocol PRN Reason: Hypoglycemia Protocol Stop: 02/04/23 06:56 Glucose (Glucose 10 Tab/Tube) 4 - 8 tab PO UD PRN; Protocol PRN Reason: Hypoglycemia Treatment Stop: 02/04/23 06:56 Glucose (Glucose 40% Gel 15 Gm Tube) 15 - 30 gm PO UD PRN; Protocol PRN Reason: Hypoglycemia Protocol Stop: 02/04/23 06:56 Promethazine HCl 6.25 mg/ (Sodium Chloride) 50.25 mls @ 201 mls/hr IV Q6H PRN PRN Reason: Nausea And Vomiting Stop: 02/04/23 02:04 Norepinephrine Bitartrate (Levophed/D5w) 4 mg in 250 mls @ 14.344 mls/hr IV .[id number] [facility]IAN; Protocol Stop: 02/05/23 02:59 Last Titration: 01/07/23 09:55 Dose: 0.05 mcg/kg/min, 14.3 mls/hr Piperacillin Sod/Tazobactam (Sod 4.5 gm/ Dextrose) 100 mls @ 25 mls/hr IV Q12H [facility]IAN; Protocol Stop: 01/08/23 00:59 Insulin Aspart (Insulin Aspart Per Unit Charge) 0 units SC ACHS [facility] Stop: 02/04/23 06:56 Last Admin: 01/07/23 08:17 Dose: 4 units Lactobacillus Acidophilus (Advanced Probiotic 1250 Mg Capsule) 2 cap PO DAILY [facility] Stop: 02/04/23 08:59 Last Admin: 01/07/23 08:04 Dose: 2 cap Lactulose (Lactulose Syrup 10 Gm/15 Ml Btl 960 Ml) 15 gm PO BID [facility] Stop: 02/06/23 11:29 Lidocaine (Lidocaine 5% 1 Patch) 1 patch TD QAM [facility] Stop: 02/04/23 01:59 Last Admin: 01/07/23 08:08 Dose: 1 patch Loratadine (Loratadine 10 Mg Tab) 10 mg PO QAM [facility] Stop: 02/04/23 08:59 Last Admin: 01/07/23 08:05 Dose: 10 mg Miconazole Nitrate (Miconazole Nitrate 2% Vag Cr 45 Gm Tube) 1 appln PV HS [facility] Stop: 02/04/23 20:59 Last Admin: 01/06/23 20:48 Dose: 1 appln Midodrine (Midodrine Hcl 2.5 Mg Tab) 5 mg PO TID@0800,1200,1700 [facility] Stop: 02/06/23 11:59 Miscellaneous (Remove Lidoderm Patch) 1 each N/A PM [facility] Stop: 02/04/23 13:59 Last Admin: 01/06/23 20:48 Dose: 1 each Miscellaneous (Remove Nicoderm Patch) 1 each N/A DAILY@0859 [facility] Stop: 02/04/23 08:58 Last Admin: 01/07/23 08:06 Dose: 1 each Miscellaneous (Carbohydrates For Hypoglycemia ) 15 - 30 gm PO UD PRN PRN Reason: Hypoglycemia Protocol Stop: 02/04/23 06:56 Nicotine (Nicotine 14 Mg/24 Hr Patch) 14 mg TD QAM [facility] Stop: 02/04/23 08:59 Last Admin: 01/07/23 08:08 Dose: 14 mg Oxycodone HCl (Oxycodone Hcl Ir 5 Mg Tab (Immediate Release)) 5 mg PO Q6H PRN PRN Reason: pain Stop: 01/19/23 06:56 Last Admin: 01/06/23 09:12 Dose: 5 mg Pantoprazole Sodium (Pantoprazole 40 Mg Tab) 40 mg PO DAILY [facility] Stop: 02/04/23 08:59 Last Admin: 01/07/23 08:04 Dose: 40 mg Polyethylene Glycol (Polyethylene (Miralax) 17 Gm Pack) 17 gm PO DAILY [facility] Stop: 02/04/23 11:44 Last Admin: 01/07/23 08:13 Dose: 17 gm Rifaximin (Rifaximin 550 Mg Tablet) 550 mg PO BID [facility] Stop: 02/06/23 11:29 Sodium Chloride (Sodium Chlor 7% 4 Ml Neb) 4 ml INH BIDR FABIAN Stop: 02/04/23 08:59 Last Admin: 01/07/23 08:41 Dose: 4 ml Sucralfate (Sucralfate 1 Gm Tab) 1 gm PO ACHS FABIAN Stop: 02/04/23 07:29 Last Admin: 01/07/23 07:56 Dose: 1 gm Umeclidinium/Vilanterol (Umeclidinium/Vilanterol 62.5/25mcg 7 Puffs/Inhaler) 1 puffs INH DAILY [facility]; Protocol Stop: 02/04/23 08:59 Last Admin: 01/07/23 08:06 Dose: 1 puffs
[2023-01-07] MEDS: LACTULOSE SYRUP 10 GM/15 ML BTL 960 ML PO SCH ×2 (11:43→20:38)
[2023-01-07] MEDS: MIDODRINE HCL 2.5 MG TAB PO SCH ×2 (11:43→17:29)
[2023-01-07] MEDS: rifAXIMin 550 MG TABLET PO SCH ×2 (11:43→20:36)
[2023-01-07] MEDS ORDERED: LACTULOSE SYRUP 10 GM/15 ML BTL 960 ML PO SCH (12:00)
[2023-01-07] MEDS ORDERED: SODIUM BICARB 8.4% INJ 50 MEQ/50 ML SYR IV ONE (14:00)
[2023-01-07 14:01] LABS: iSTAT Allen Test Pass; iSTAT Art Bld Gas pCO2 Correct 43 mmHg (35-46); iSTAT Art Bld Gas pH Corrected 7.297 (7.35-7.45); iSTAT Arterial Blood Gas HCO3 21 meg/L (19-24); iSTAT Arterial Blood Gas pCO2 44 mmHg (35-46); iSTAT Arterial Blood Gas pH 7.29 (7.35-7.45); iSTAT Arterial Blood Gas pO2 < 32 mmHg (80-95); iSTAT Arterial Blood Gas pO2 C 30; iSTAT Carbon Dioxide 22 mmol/L (24-31); iSTAT FiO2 28 %; iSTAT Hematocrit 32 % (37-47); iSTAT Hemoglobin 10.9 g/dl (12.0-16.0); iSTAT Potassium 4.1 mmol/L (3.3-5.0); iSTAT Site R Radial; iSTAT Sodium 133 mmol/L (135-144)
[2023-01-07] MEDS ORDERED: STAT IV/IM STA (14:44)
[2023-01-07] MEDS ORDERED: SODIUM BICARBONATE 8.4% 150 MEQ in DEXTROSE 5% 1,000 ML IV SCH (14:45)
[2023-01-07] MEDS ORDERED: SODIUM BICARBONATE 8.4% 150 MEQ in WATER, STERILE 1,000 ML IV SCH (15:00)
[2023-01-07 15:28] LABS: Base Excess VBG -1.7 mEq/L; HCO3 VBG 24 mmol/L; Oxygen Saturation VBG < 60.0 %; PCO2 VBG 45 mmHg (38-50); PO2 VBG 31 mmHg; pH VBG 7.34 (7.36-7.41)
[2023-01-07] MEDS: NOREPINEPHRINE/D5W 4 MG/250 ML PLCT IV SCH (15:28)
[2023-01-07 15:38] LABS: Basophils # (auto) 0.03 K/uL (0.00-0.20); Basophils % (auto) 0.2 %; Eosinophils % (auto) 0.7 %; Hematocrit (blood only) 26.1 % (37.0-47.0); Hemoglobin 8.1 g/dl (12.0-16.0); Immature Granulocytes # (auto) 0.11 K/uL (0.01-0.20); Immature Granulocytes % (auto) 0.7 %; Lymphocytes % (auto) 3.3 %; Mean Corpuscular Hemoglobin 25.6 pg (25.0-34.0); Mean Corpuscular Volume 82.6 fL (80.0-100.0); Mean Platelet Volume 11.3 fL (9.4-12.4); Monocytes # (auto) 1.37 K/uL (0.11-0.59); Monocytes % (auto) 9.1 %; Neutrophils # (auto) 12.91 K/uL (1.40-6.50); Nucleated RBC % (auto) 2.7 %; Platelet Count 307 K/uL (130-400); RDW Coefficient of Variation 17.3 % (11.5-14.5); RDW Standard Deviation 51.8 fL (36.4-46.3); Red Blood Count 3.16 M/uL (4.20-5.40); White Blood Count 15.02 K/ul (4.8-10.8)
--- NOTE | 2023-01-07 15:55 | Surgery Consultation ---
Date of Consultation January 07, 2023 Assessment & Plan (1) Transaminitis: Carlotta is a 72-year-old female with a significant past medical history including AR renal failure hyperlipidemia hypertension COPD congestive heart failure, that presented to the [facility] on 01/04/2023 with c/o a fall that happened two days prior. Patient was admitted to the hospital and found to have septic shock with hyperkalemia, and transaminitis 2/2 hepatic congestion. Currently patient is the ICU and is non-responsive, and requiring the use of Bipap, and pressor support. Patients daughter Diamond is at patients bedside, Daughter agustin patient has coded twice in the past at [facility] recently mistakenly took a double dose of all home medications and had not been urinating much at home prior to arrival. Past surgical history includes appendectomy and hysterectomy carotid endarterectomy heart stents, femoropopliteal bypass. General surgery was consulted for possible cholecystitis CT scan : Gallbladder and bile ducts: Vicarious excretion of contrast in the gallbladder which can be seen with acute renal dysfunction. No calcified stones. No ductal dilation. Ultrasound: IMPRESSION: 1. No sonographic abnormality of the liver. 2. Thickening of the gallbladder wall and pericholecystic edema which may be reactive in this patient with ascites, less likely reflecting acute cholecystitis. Cordero's sign cannot be assessed as patient has external sources of pain. If there is clinical concern for acute cholecystitis, nuclear medicine HIDA study can be performed. Today WBC 15 Creatinine 2.49/ BUN 42 lactate 2.6 (4.8) Yesterday 01/06/23 T.bili 2.1 AST 365 ALT 313 Marie. phos 313 Ammonia 79 Case discussed with on-call surgeon Dr. Tran, if surgery is needed patient would need transferred to a tertiary care center History of Present Illness Reason for Consultation: Transaminitis , possible cholecystitis Attending Physician: Edy Perez MD History of Present Illness Carlotta is a 72-year-old female with a significant past medical history including AR renal failure hyperlipidemia hypertension COPD congestive heart failure sepsis that presented to the [facility] on 01/04/2023 with c/o a fall that happened two days prior. Patient was admitted to the hospital and found to have septic shock with hyperkalemia, and transaminitis 2/2 hepatic congestion. Currently patient is the ICU and is non-responsive, and requiring the use of Bipap. Allergies Allergy/AdvReac Type Severity Reaction Status Date / Time methadone Allergy Severe "couldn't Verified 12/13/22 16:53 swallow/eyes coming out of head" nickel Allergy Severe swelling Verified 12/13/22 16:53 and infections nitroglycerin Allergy Intermediate DECREASED Verified 12/13/22 16:53 BP propoxyphene Allergy Intermediate edema to Verified 12/13/22 16:53 face/lips/tongue diclofenac Allergy Mild Rash Verified 12/13/22 16:53 hydrocodone Allergy Mild "severe Verified 12/13/22 16:53 constipation" levofloxacin [From Levaquin] Allergy Mild nausea/vomi Verified 12/13/22 16:53 ting Penicillins Allergy Mild severe Verified 12/13/22 16:53 diarrhea/rash sitagliptin [From Januvia] Allergy Mild rash Verified 03/21/19 18:20 "blood blisters" strawberry Allergy Mild Diarrhea Verified 03/21/19 18:20 Home Medications Medication Instructions Recorded Confirmed Type aspirin 81 mg tablet,delayed 81 mg PO QAM 11/06/18 01/04/23 History release atorvastatin 40 mg tablet 40 mg PO QPM 11/06/18 01/04/23 History buspirone 15 mg tablet 15 mg PO BID 11/06/18 01/04/23 History clopidogrel 75 mg tablet 75 mg PO QAM 11/06/18 01/04/23 History albuterol sulfate 90 mcg/actuation 2 puff inhalation Q4 PRN Shortness 11/16/18 01/04/23 History aerosol inhaler (Ventolin HFA) Of Breath cholecalciferol (vitamin D3) 125 5,000 unit PO BID 03/21/19 01/04/23 History mcg (5,000 unit) tablet pantoprazole 40 mg tablet,delayed 40 mg PO DAILY 03/21/19 01/04/23 History release sucralfate 1 gram tablet (Carafate) 1 g PO ACHS 03/21/19 01/04/23 History ascorbic acid (vitamin C) 500 mg 500 mg PO DAILY 12/13/22 01/04/23 History tablet (Vitamin C) duloxetine 30 mg capsule,delayed 30 mg PO AMHS 12/13/22 01/04/23 History release fluticasone fur. 100 mcg-umeclid 1 inh inhalation DAILY 12/13/22 01/04/23 History 62.5 mcg-vilant 25 mcg inhalat.powder (Trelegy Ellipta) ipratropium 0.5 mg-albuterol 3 mg 3 ml inhalation Q4 PRN Shortness 12/13/22 History (2.5 mg base)/3 mL nebulization Of Breath Or Wheezing soln nicotine 14 mg/24 hr daily 1 patch transdermal .DAILY 12/13/22 01/04/23 History transdermal patch DIRECTED metoprolol succinate 25 mg 25 mg PO QAM 30 days #30 tabs 12/22/22 01/04/23 Rx tablet,extended release 24 hr nicotine 7 mg/24 hr daily 14 mg transdermal QAM #7 ea 12/24/22 01/04/23 Rx transdermal patch sodium chloride 7 % for 4 ml inhalation BID 01/04/23 01/04/23 History nebulization L.acidop,casei,lactis,rham-B.lact,felix 2 cap PO DAILY #10 caps 01/07/23 Rx 625 mg (10 billion cell) capsule (Advanced Probiotic) lactulose 20 gram/30 mL oral 15 g (22.5 mL) PO BID #2 mL 01/07/23 Rx solution miconazole nitrate 2 % vaginal 1 applic vaginal HS #1 g 01/07/23 Rx cream midodrine 2.5 mg tablet 5 mg PO TID@0800,1200,1700 #20 tabs 01/07/23 Rx rifaximin 550 mg tablet (Xifaxan) 550 mg PO BID #20 tabs 01/07/23 Rx Patient History Medical History Anemia Anxiety [place] esophagus COPD (chronic obstructive pulmonary disease) inhaler prn Coronary artery disease, occlusive Critical limb ischemia with history of revascularization of same extremity RLE CVA (cerebral vascular accident) 2008--slight left side weakness (no assistive devices)--follows with Dr. 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 not have a manager training Obesity (BMI 30.0-34.9) On anticoagulant therapy plavix daily Osteoarthritis PVD (peripheral vascular disease) Right upper lobe pulmonary nodule Surgical History H/O: hysterectomy History of appendectomy History of bilateral cataract extraction History of bilateral tubal ligation History of bronchoscopy History of cardiac cath x2 both @ [facility]--2000 with 1 stent/2003--no stent, instead fem-pop bypass History of carotid endarterectomy 2010 on right side History of colonoscopy with polypectomy History of dilatation and curettage x3 History of endoscopic sinus surgery History of esophagogastroduodenoscopy (EGD) History of heart artery stent x1 before 2000? @ [facility] History of repair of right rotator cuff x2 History of tooth extraction most teeth Status post femoral-popliteal bypass surgery 2004 Status post femoropopliteal bypass surgery 11/06/[address] Jara---thrombectomy/Femoral-femoral bypass Family History Sister Family history of diabetes mellitus Family history of esophageal cancer Family hx of colon cancer Sister Family history of diabetes mellitus Sister Family history of diabetes mellitus Sister Family history of diabetes mellitus Sister Family history of diabetes mellitus Sister Family history of diabetes mellitus Sister Family history of diabetes mellitus Brother Family history of diabetes mellitus Brother Family history of diabetes mellitus Brother Family history of diabetes mellitus Other Diabetes No family history of adverse response to anesthesia Stroke Social History Smoking Status: Unknown if ever smoked Tobacco Type: Cigarettes Cigarettes Per Day: 20-40; Second Hand Exposure: Yes; Do You Dip or Chew Tobacco: No; Hx Alcohol Use: No Hx Substance Use: No Preferred Language: French Communication Ability: Effective [employer] Developer Required: No Beliefs That Will Affect Care: None Current Living Situation: Family Current Living Situation Comment: Lives with daughter Feels Safe at Home: No Is there a partner from a previous relationship who is making you feel unsafe now?: No Assistive Devices: Bedside Commode, Oxygen - Continuous, Stair Lift and Walker Review of Systems Constitutional: patient is unresponsive to questions and does not open eyes Results & Data Vital Signs (Past 12 Hours) Vital Signs Temp Pulse Pulse Resp BP Pulse Ox O2 Del Method 01/07/23 11:25 78 20 94 01/07/23 10:16 Nasal Cannula 01/07/23 09:16 62 18 96 01/07/23 09:16 98/64 L 01/07/23 09:15 61 17 96 01/07/23 09:01 60 20 01/07/23 09:01 86/61 L 01/07/23 09:00 60 17 01/07/23 08:46 106/61 01/07/23 08:46 60 13 01/07/23 08:45 62 15 100 01/07/23 08:31 62 20 92 01/07/23 08:31 145/104 H 01/07/23 08:30 62 19 92 01/07/23 08:15 60 16 96 01/07/23 08:01 108/77 01/07/23 08:01 62 16 100 01/07/23 08:00 61 19 96 01/07/23 07:45 61 18 88 L 01/07/23 07:45 101/64 01/07/23 07:30 58 L 22 90 01/07/23 07:30 81/61 L 01/07/23 07:15 59 L 16 92 01/07/23 07:15 85/62 L 01/07/23 07:05 61 16 90 01/07/23 07:05 100/65 01/07/23 07:01 61 14 92 01/07/23 07:00 60 14 92 01/07/23 06:45 61 17 91 01/07/23 06:45 82/62 L 01/07/23 06:30 62 17 94 01/07/23 06:30 105/61 01/07/23 06:16 60 20 91 01/07/23 06:16 94/52 L 01/07/23 06:15 60 15 94 01/07/23 06:02 61 26 H 94 01/07/23 06:02 89/52 L 01/07/23 06:00 67 18 92 01/07/23 05:46 88/55 L 01/07/23 05:46 61 19 92 01/07/23 05:45 59 L 17 92 01/07/23 05:31 107/37 L 01/07/23 05:31 60 19 91 01/07/23 05:30 61 19 92 01/07/23 05:16 62 18 94 01/07/23 05:16 88/60 L 01/07/23 05:15 61 15 94 01/07/23 08:41 60 18 92 Nasal Cannula 01/07/23 05:01 62 16 92/57 L 69 L 01/07/23 05:00 62 22 72 L 01/07/23 04:45 61 15 101/64 85 L 01/07/23 04:30 62 20 101/60 82 L 01/07/23 04:15 61 17 89/63 L 88 L 01/07/23 04:01 61 14 98/61 L 91 01/07/23 04:00 62 15 87 L 01/07/23 04:00 97.5 F L O2 Flow Rate FiO2 01/07/23 11:25 28 01/07/23 10:16 4 01/07/23 09:16 01/07/23 09:16 01/07/23 09:15 01/07/23 09:01 01/07/23 09:01 01/07/23 09:00 01/07/23 08:46 01/07/23 08:46 01/07/23 08:45 01/07/23 08:31 01/07/23 08:31 01/07/23 08:30 01/07/23 08:15 01/07/23 08:01 01/07/23 08:01 01/07/23 08:00 01/07/23 07:45 01/07/23 07:45 01/07/23 07:30 01/07/23 07:30 01/07/23 07:15 01/07/23 07:15 01/07/23 07:05 01/07/23 07:05 01/07/23 07:01 01/07/23 07:00 01/07/23 06:45 01/07/23 06:45 01/07/23 06:30 01/07/23 06:30 01/07/23 06:16 01/07/23 06:16 01/07/23 06:15 01/07/23 06:02 01/07/23 06:02 01/07/23 06:00 01/07/23 05:46 01/07/23 05:46 01/07/23 05:45 01/07/23 05:31 01/07/23 05:31 01/07/23 05:30 01/07/23 05:16 01/07/23 05:16 01/07/23 05:15 01/07/23 08:41 6 01/07/23 05:01 01/07/23 05:00 01/07/23 04:45 01/07/23 04:30 01/07/23 04:15 01/07/23 04:01 01/07/23 04:00 01/07/23 04:00 Diagnostic Findings [place] [phone] CT Scan Report Patient:CARLOTTA WOODARD Admit Date:01/05/23 MR#:[id number] Address1:[address] [place] [address] Acct ID:[id number] Address2: Date:1950 [facility] Zip:[place] [address] Age:72 Location: Sex:F Room/Bed:[facility] Att Phy:Edy Perez MD Diagnosis:SEPSIS Amita Phy:Courtney Jay MD Service Date:01/06/23 Fam Phy: Interpreting Phy:Castro Conde MDAdmit Phy:Patricio Araujo MD Ordering Phy:Tucker Ledezma CRNP cc: ~ Exam(s): CT ABDOMEN + PELVIS Without Contrast EXAM: CT Abdomen and Pelvis Without Intravenous Contrast CLINICAL HISTORY: Reason for exam: sepsis, abdominal tenderness, Lactic acidosis. TECHNIQUE: Axial computed tomography images of the abdomen and pelvis without intravenous contrast. CTDI is 37.36 mGy and DLP is 1895.8 mGy-cm. Automated exposure control was utilized for the study. A dose lowering technique was utilized adhering to the principles of ALARA. COMPARISON: No relevant prior studies available. FINDINGS: Limitations: Limited evaluation in the absence of contrast. Lung bases: See below. Pleural space: Moderate bilateral pleural effusions with adjacent airspace disease, likely relating to compressive atelectasis. Heart: Cardiomegaly. ABDOMEN: Liver: Cirrhotic morphology of the liver. Gallbladder and bile ducts: Vicarious excretion of contrast in the gallbladder which can be seen with acute renal dysfunction. No calcified stones. No ductal dilation. Pancreas: Unremarkable. No ductal dilation. Spleen: Unremarkable. No splenomegaly. Adrenals: Unremarkable. No mass. Kidneys and ureters: Persistent contrast nephrograms. Findings can be seen with acute tubular necrosis. No evidence of radiopaque renal calculi or signs of collecting system dilatation. Stomach and bowel: No evidence of bowel obstruction. No mucosal thickening. PELVIS: Appendix: Normal appendix. Bladder: Diffuse bladder wall thickening with adjacent perivesicular stranding. Findings may relate to cystitis. Consider correlation with laboratory values. No stones. Reproductive: Unremarkable as visualized. ABDOMEN and PELVIS: Intraperitoneal space: Moderate mesenteric ascites. No free air. Bones/joints: Degenerative changes in the spine. No acute fracture. No dislocation. Soft tissues: Anasarca. Vasculature: Atherosclerotic disease. Nitinol stent within the superior mesenteric artery. No abdominal aortic aneurysm. Lymph nodes: Unremarkable. No enlarged lymph nodes. IMPRESSION: 1. Limited evaluation in the absence of contrast. 2. Diffuse bladder wall thickening with adjacent perivesicular stranding. Findings may relate to cystitis. Consider correlation with laboratory values. 3. Persistent contrast nephrograms. Findings can be seen with acute tubular necrosis. 4. Vicarious excretion of contrast in the gallbladder which can be seen with acute renal dysfunction. 5. Findings consistent with systemic volume overload with moderate bilateral pleural effusions, moderate mesenteric ascites, and anasarca. 6. Cirrhotic morphology of the liver. 7. Incidental findings as described. Electronically signed by: Castro Conde MD 01/06/23 06:30 AM Dictated:01/06/23629 Transcribed: 01/06/23629 [place] [phone] Ultrasound Report Patient:CARLOTTA WOODARD Admit Date:01/05/23 MR#:[id number] Address1:[address] [place] [address] Acct ID:[id number] Address2: Date:1950 [facility] Zip:[place] [address] Age:72 Location:[facility] Sex:F Room/Bed:[facility] 1-9 Att Phy:Edy Perez MD Diagnosis:SEPSIS Amita Phy:Courtney Jay MD Service Date:01/05/23 Fam Phy: Interpreting [facility] Phy:Patricio Araujo MD Ordering Phy:Edy Perez MD cc: ~ US liver CLINICAL HISTORY: elevated LFTs TECHNIQUE: Multiple real-time sonographic images of the right upper quadrant were obtained. Comparison: Comparison is made to CT abdomen pelvis and 01/07/2022 FINDINGS: Liver is mildly heterogeneous without navarro nodularity or steatosis. No focal mass lesions are seen. No intrahepatic ductal dilatation is seen. No gallstones. Gallbladder wall is mildly prominent measuring up to 4 mm. Pericholecystic fluid is noted. Cordero's sign is equivocal as patient is in pain from other fracture. The common duct measures 0.4 cm in diameter at the level of the hepatic artery. The visualized portions of the pancreas appear normal. The right kidney shows normal echogenicity, cortical thickness and renal contour. The right kidney shows no evidence of hydronephrosis or mass. No ascites or free fluid is seen in Holcomb's pouch. IMPRESSION: 1. No sonographic abnormality of the liver. 2. Thickening of the gallbladder wall and pericholecystic edema which may be reactive in this patient with ascites, less likely reflecting acute cholecystitis. Cordero's sign cannot be assessed as patient has external sources of pain. If there is clinical concern for acute cholecystitis, nuclear medicine HIDA study can be performed. ACT 112: Negative or not required by law. Electronically signed by: Tong Camarillo M.D. 01/05/2023 4:03 PM Dictated:01/05/23 1601 Transcribed: 01/05/23 160 PG Care Time/CCT Total # of Minutes Spent Total Time Spent with Patient: Total time spent is greater than 50% in coordination of care (as documented) at patient's floor/unit and/or counseling patient: Coding Level of Care Code 43619 INT INP/OBS CARE 2/55MIN Diagnoses Transaminitis R74.01
[2023-01-07 15:57] LABS: Polychromasia 2+; Target Cells 1+
[2023-01-07] MEDS ORDERED: PIPERACILLIN/TAZOBACTAM 4.5 GM in DEXTROSE 5% MINI-B 100 ML IV SCH (20:00)
[2023-01-07] MEDS: DOCUSATE SODIUM SYRUP 100 MG/10 ML UDC PO SCH (20:34)
[2023-01-07] MEDS: MICONAZOLE NITRATE 2% VAG CR 45 GM TUBE PV SCH (20:36)
[2023-01-07] MEDS: oxyCODONE HCL IR 5 MG TAB (IMMEDIATE RELEASE) PO PRN (20:49)
--- NOTE | 2023-01-07 21:03 | Communication Note ---
Date of Service: January 07, 2023 Patient's daughter Diamond Braxton did call back at 2049- there was discussions earlier in which she wanted to talk with the rest of her family regarding care goals. At this time with her current status of shock which appears undifferentiated at this time to include septic vs. cardiogenic vs. KATHRYN or combination of the above, with her increasing vasopressor requirements, progressing renal failure anuric, she would be candidate for CRRT, which we do not offer at this facility. Following this discussion as well, we did discuss overall code status and she would like her Mom to remain CPR with shocks and medications, but does NOT want to be intubated as her prior discussions with her mother, and this does match the current code status that was had with the patient on arrival to the [facility]. Plan: Transfer to [facility] for evaluation and support of CRRT and her shock. Dr. Hernandez will re-engage transfer center with accepting physician as well as start bed search. Coding Level of Care Code 99970 CRITICAL CARE 1ST 30-74M Time Spent (min) 35
--- NOTE | 2023-01-07 22:38 | Discharge Summary ---
Date of Service January 07, 2023 Admission HPI Per Admitting Provider History obtained from patient and records. Medical history significant for chronic diastolic heart failure (EF 55 to 60%, TTE 2022), valvular heart disease (severe MR, mild TR), CAD status post stent, PVD status post surgery, CVA, hx intracranial hemorrhage as per records, COPD, hypertension, hyperlipidemia, DM 2 on oral medications, chronic anemia (baseline hemoglobin 8- 9), mood disorder, ongoing tobacco abuse. Recent confinement December 13 to 2022 for respiratory failure secondary to CHF/COPD exacerbation. Patient fell in her bathroom 3 days ago secondary to loss of balance. Achy tailbone pain following fall. No head trauma/LOC/chest pain/unusual shortness of breath. Usual cough symptoms. Denies weight gain. Patient brought to the ER for evaluation. Lowest SBP of 70s documented at the ER. IV ceftriaxone and NSS bolus administered at the ER. SBP currently 100s. Medical History as above Surgical History : Vascular procedures, skin grafting, partial hysterectomy, cataract surgery, toe amputation, bladder neck procedure, skin debridement Family History : Breast cancer, DM, stroke Personal/Social history : Few cigarettes a day, no EtOH intake, disabled Discharge Data Consultations 01/04/23 21:32 ED Decision to Admit Stat 01/05/23 08:32 Consult Cardiology Routine 01/05/23 15:49 Consult Infectious Diseases Routine 01/05/23 19:39 Consult Nephrology Routine 01/06/23 03:28 Consult Sociology Professor Routine 01/07/23 10:34 Consult Gastroenterology Routine 01/07/23 15:02 Consult General Surgery Routine Hospital Course (1) Septic shock: Patient getting transferred to [place] for possible CRRT for oliguric Prakash. Patient currently on iv zosyn , levophed drip, bicarb drip and on bipap. Also on Xifaxan and lactulose for elevated ammonia levels.Was treated for hyperkalemia initially with Lokelma. Also having Elevated LFT.Recently had stent to LM/LAD. Multivessel cardiac disease and severe mitral regurgitation. Also has hx of copd.Transferring for [place] for further management. Family ok for cpr and meds but no intubation. 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 Postoperatively patient cardiac cardiac arrest which was PEA arrest and required chest compressions for 30 seconds and she was transferred to ICU for management of cardiogenic shock. Cardiac cath done on November 10 was found to have multivessel disease. Patient opted to go for PCI instead of CT surgery. She was noted to have severe mitral regurgitation on echo in November 11. She underwent PCI to LM/LAD on November 12 and tolerated the procedure well. Started Toprol-XL and to follow outpatient. She also tested COVID infection on November 22. Improved with 1 day of Decadron remdesivir and discharged home on home oxygen and to complete her steroid taper. She is requiring oxygen 2 L on ambulation 3 L overnight.She was discharged on IV Zosyn to complete on December 16.Intraoperative cultures also showed Kayla and she is on Diflucan to complete on December 16.To follow-up with outpatient vascular as well as infectious disease. Lives at home with her daughter. Ambulates without support. Severe sepsis SIRS plus lactic acidosis secondary to complicated UTI/ vs wound infection? 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 surgery for poss. cholecystitis and elev. LFTs - consults placed Troponin elevation secondary to illness HTN, patient BP currently borderline - became hypotensive overnight despite fluid resusc. -> required transfer to ICU Pt intermittently on levophed - now back on levophed d/t poor urine output and low BP Hyperkalemia - possibly secondary to home medications, spironolactone on hold - persistent hyperkalemia despite insulin, lokelma started - nephrology consulted and following closely Urinary retention, PRAKASH, ATN - lind cath placed in ED (900cc drained immediately) - urine output now extremely poor 2/2 ATN - poss. cardiorenal or hepatorenal syndrome ? -cont. w/ pressor support -cont. bicarb -nephrology consulted and following closely -cannot r/o need for dialysis next 48 hrs but none needed today - if need arises pt may need CRRT which is not avilable here and may consider transfer -of note, transfer vs. hospice care discussed w/ daughter at the bedside today, prognosis guarded Transaminitis secondary to hepatic congestion from CHF vs secondary to sepsis ? hold statin for now fluconazole stopped (only received 2 doses) Liver US obtained -1. No sonographic abnormality of the liver. 2.Thickening of the gallbladder wall and pericholecystic edemawhich may be reactive in this patient with ascites, less likely reflecting acute cholecystitis. Cordero's sign cannot be assessed as patient has external sources of pain. If there is clinical concern for acute cholecystitis, nuclear medicine HIDA study can be performed. Hep panel ordered - negative LFTs trending down chronic diastolic heart failure (EF 55 to 60%, TTE 2022), equivocal volume status given congestion on x-ray, patient intravascularly dry Pt required fluid resuscitation, received albumin and IVF Troponin elevation secondary to illness Cardiology consulted - -Given her complex left main/LAD stent due to continue aspirin and clopidogrel without interruption. -Poor candidate for mitral valve intervention. -Agree with midodrine for blood pressure support Chronic conditions: valvular heart disease (severe MR, mild TR) hx CAD status post stent PVD status post surgery CVA COPD, lung status at baseline , uses 2L of suppl. O2 Acure resp. failure w/ hypoxia- currently oxygen requirement increased - secondary to poss. sepsis, CHF exacerb, fluid resuscitation, renal failure hyperlipidemia, on statin Rx, hold for now d/t elev. LFTs DM 2 on oral medications, well-controlled as of recent hemoglobin A1c of 6.8 th is month chronic anemia, hemoglobin at baseline Traumatic tailbone fracture, ambulatory dysfunction, Lidocaine patch trial for this tailbone fracture ongoing tobacco abuse. PT OT eval once medically stable DVT prophylaxis. Lovenox subcu Patient's daughter - Ms. Diamond Braxton, contact #[phone].
== END 2023-01-07 23:41 | disposition short-term general hospital (02) | DRG 871 ==
LOC: ED 17:55 → EDINP 01-05 02:03 → 4W 01-05 20:05 → 1E 01-06 03:14

== ENCOUNTER 2023-08-30 17:55 | Inpatient (IN) ==
--- NOTE | 2023-08-30 18:12 | ED Triage Note ---
Date of Service August 30, 2023 Provider in Triage Author: Marc Lindsay History of Present Illness This patient was briefly evaluated while in triage. An abbreviated physical exam was performed. This patient is a 73-year-old Female, medical history significant for chronic diastolic heart failure (EF 55 to 60%, TTE 2022), valvular heart disease (severe MR, mild TR), CAD status post stent, PVD status post surgery, CVA, hx intracranial hemorrhage as per records, COPD, hypertension, hyperlipidemia, DM 2 on oral medications, chronic anemia (baseline hemoglobin 8-9), mood disorder, and ongoing tobacco abuse, who presents to the ED for evaluation of shortness of breath, chest pain and cough. The patient reports that her symptoms started last week. She reports that the chest pain is in the center of the chest, and radiates through to the back. The patient was seen by her PCP, and referred to the emergency department because of diminished lung sounds and ECG changes. There is also question for pneumonia. Physical Exam CONSTITUTIONAL: Healthy and well nourished. HEENT: Normocephalic, atraumatic. Pupils equal, round and reactive. NECK: Full active range of motion without discomfort. LYMPHATICS: No cervical chain adenopathy. RESPIRATORY: Distant breath sounds with crackles. CARDIOVASCULAR: Regular rate and rhythm with no murmurs, rubs or gallops. GASTROINTESTINAL: Bowel sounds present in all quadrants. MUSCULOSKELETAL: Full range of motion of all joints without discomfort. INTEGUMENTARY: No rash or other significant dermatologic conditions noted. HEMATOLOGIC: No ecchymosis or petechiae. PSYCHIATRIC: Positive affect. NEUROLOGIC: No focal neurologic deficits noted. Initial orders for labs and / or imaging were placed and patient was placed in the waiting area until a bed is available. Please see further documentation for the full ED course.
[2023-08-30 18:39] LABS: Basophils # (auto) 0.03 K/uL (0.00-0.20); Basophils % (auto) 0.2 %; Eosinophils # (auto) 0.03 K/uL (0.00-0.50); Eosinophils % (auto) 0.2 %; Hematocrit (blood only) 34.1 % (37.0-47.0); Hemoglobin 10.7 g/dl (12.0-16.0); Immature Granulocytes # (auto) 0.08 K/uL (0.01-0.20); Immature Granulocytes % (auto) 0.6 %; Lymphocytes # (auto) 1.28 K/uL (1.20-3.40); Lymphocytes % (auto) 9.8 %; Mean Corpuscular Hemoglobin 25.9 pg (25.0-34.0); Mean Corpuscular Hgb Conc 31.4 g/dL (32.0-36.0); Mean Corpuscular Volume 82.6 fL (80.0-100.0); Monocytes # (auto) 0.61 K/uL (0.11-0.59); Monocytes % (auto) 4.7 %; Neutrophils # (auto) 10.97 K/uL (1.40-6.50); Neutrophils % (auto) 84.5 %; Platelet Count 309 K/uL (130-400); RDW Coefficient of Variation 14.4 % (11.5-14.5); RDW Standard Deviation 43.3 fL (36.4-46.3); Red Blood Count 4.13 M/uL (4.20-5.40)
[2023-08-30 18:41] LABS: Appearance Urine Clear (Clear); Bilirubin Urine Negative (Negative); Blood Urine Negative (Negative); Color Urine Yellow; Glucose Urine UA Negative (Negative); Ketones Urine Negative (Negative); Leukocyte Esterase Urine Negative (Negative); Nitrite Urine Negative (Negative); Protein Urine Negative (Negative); Specific Gravity Urine 1.009 (1.000-1.030); Urobilinogen Urine Negative (Negative); pH Urine 5.5 (4.5-7.5)
[2023-08-30 18:57] LABS: Alanine Aminotransferase 18 U/L (7-52); Albumin Globulin Ratio 1.1 (0.9-2); Albumin Level 3.9 gm/dl (3.4-5.0); Alkaline Phosphatase 130 U/L (34-104); Anion Gap 6 (3-11); Aspartate Aminotransferase 26 U/L (13-39); BUN Creatinine Ratio 21.6 (10-20); Bilirubin,Total 0.7 mg/dl (0.2-1.0); Blood Urea Nitrogen 16 mg/dl (6-23); Calcium 9.2 mg/dl (8.6-10.3); Carbon Dioxide 27 mmol/L (21-32); Chloride 92 mmol/L (98-107); Est GFR (African American) 92.5 ml/min; Est GFR (Non-African American) 79.8 ml/min; Globulin 3.4 gm/dl (2.5-4.0); Glucose 165 mg/dl (70-99(Fasting)); Lipase 8 U/L (11-82); Potassium 4.6 mmol/L (3.5-5.1); Sodium 125 mmol/L (136-145); Total Protein 7.3 gm/dl (6.0-8.3)
[2023-08-30 19:04] LABS: Troponin I High Sensitivity 19.5 pg/ml (0-14)
[2023-08-30 19:09] LABS: Partial Thromboplastin Ratio 1.1; Partial Thromboplastin Time 29 Seconds (21-31); Prothrombin Time 10.9 Seconds (9.0-12.0)
--- NOTE | 2023-08-30 19:10 | Emergency Department Note ---
Impression & Plan COPD exacerbation, Acute hyponatremia, Chest pain ED Provider Note Provider: Heladio Diaz MD DATE OF SERVICE: 08/30/2023 CHIEF COMPLAINT: Breathing issues, chest pain HISTORY OF PRESENT ILLNESS: Patient is a 73-year-old female past medical history including sepsis, CHF, pneumonia, COPD, GI bleed, diabetes, and CVA presenting here today reporting that she talked with her doctor and there was concern that she was having pneumonia as well as chest pain and may be having EKG changes. She was sent here to be evaluated from the office. Reports pain in the chest over the last 2 days radiating to the back but not elsewhere. Reports the past week has been having productive cough and the shortness of breath. Does continue to smoke but using lysing her home breathing treatments and inhalers. Quite weak but caregivers have been helping. Denies any significant abdominal pain or diarrhea or vomiting but does report a bit of nausea. Has been try to hydrate well with water. No sick contacts. Has had COVID before and states this does not feel the same. Does still report some central chest discomfort. States history of GI bleed and cannot take aspirin or NSAIDs. PAST MEDICAL HISTORY: As noted above MEDICATIONS: Reviewed home medications. SOCIAL HISTORY: Smoker PHYSICAL EXAM: GENERAL: alert and oriented in no acute distress on stretcher Head: normocephalic and atraumatic EYES: No injection, discharge or icterus. NECK: Trachea midline. ENT: Mucous membranes pink and moist. LUNGS: Airway patent. No retractions. Breath sounds with diffuse expiratory wheeze. Occasionally mild tachypnea HEART: Regular rate and rhythm. No chest wall tenderness ABDOMEN: Soft and non-tender, without guarding or rebound. SKIN: Acyanotic, warm, dry, without rashes EXTREMITIES: Without swelling, tenderness or deformity with left prior lower extremity amputation noted. NEUROLOGICAL: No focal deficits. No aphasia. No facial droop or slurred speech. EK bpm normal sinus rhythm. No PVC or PAC. No acute ST segment elevation or depression with nonspecific inferior T wave flattening. QTc 462 CONTINUOUS CARDIAC MONITORING: was ordered and showed a heart rate of 80s-100s bpm in normal sinus rhythm to sinus tachycardia 2 view chest x-ray per my interpretation: No pneumothorax. No clear consolidation with a little bit of interstitial thickening of the lower lung michaels. No free air. Patient's laboratory studies and imaging reviewed. Differential includes Reactive airway disease, pneumonia, pneumothorax, COPD, CHF, infections, cardiac ischemia, pulmonary embolism, musculoskeletal, gastrointestinal, as well as other pathologies. IMPRESSION/MEDICAL DECISION MAKING: Patient not hypoxic here. Somewhat tachycardic initially. Patient with diffuse wheezing on exam. Will give nebulizer and some steroids. X-ray obtained here and some nonspecific diffuse interstitial findings. No clear consolidative process. Possibly a little nodule in the right upper lung on prior imaging has noted that. Discussed with patient we will proceed with CT imaging for further differentiation and to exclude PE. Doubt this represents dissection. Due to the small benefit of her pain given her limitations with NSAID/aspirin. EKG obtained without evidence of significant arrhythmia or acute ST segment elevation. Denies significant GI symptoms. Lab completed notable for leukocytosis of 13 with very mild anemia of 10.7. No hyponatremia 125 is noted without signs of renal dysfunction. Troponin 19.5 not severely elevated. Negative urinalysis. Evidence of hepatitis or pancreatitis. Respiratory viral panel completed as well as chest x-ray given her respiratory complaints. Chest X-ray not conclusive and sent for CT scan. Respiratory viral panel negative. CTA of the chest without clear evidence of PE or pneumonia. Possibly a little bit of pulmonary edema. No clear consolidative pneumonia process with a small right upper spiculated mass previously known. Will cover the patient with doxycycline given her history of COPD probably more of a COPD exacerbation. Do not see evidence of dissection at this time. Given her significant wheezing and chest pain with hyponatremia believe admission is warranted. Patient in agreement with hospitalist contacted. DIAGNOSIS: COPD exacerbation, chest pain, hyponatremia DISPOSITION: Hospitalist will evaluate Patient was agreeable with this plan. Past Med/Surg History Problem List Chest pain (Acute) Acute hyponatremia (Acute) ASCVD (arteriosclerotic cardiovascular disease) Hyperkalemia PRAKASH (acute kidney injury) Septic shock Severe sepsis Back pain (Acute) Stress fracture of sacrococcygeal region (Acute) Leukocytosis (Acute) Transaminitis (Acute) Elevated lactic acid level (Acute) Non-ST elevation VA (NSTEMI) (Acute) Acute exacerbation of CHF (congestive heart failure) (Acute) Hypokalemia Pneumonia PVD (peripheral vascular disease) Severe mitral regurgitation Acute on chronic diastolic heart failure with preserved ejection fraction SOB (shortness of breath) (Acute) CHF (congestive heart failure) (Acute) Cellulitis of right lower extremity COPD exacerbation (Acute) Obesity (BMI 30.0-34.9) Emphysema lung Right upper lobe pulmonary nodule Precordial chest pain (Acute) SOB (shortness of breath) (Acute) Wheezing (Acute) Edema of right lower leg (Acute) Elevated troponin (Acute) Abnormal chest CT (Acute) Encounter for pre-operative examination Status post carotid endarterectomy (Chronic) right Pain of right lower extremity due to ischemia (Acute) Tobacco use disorder, continuous (Chronic) 2ppd GI (gastrointestinal bleed) (Acute) Hematoma of right thigh (Acute) Symptomatic anemia (Acute) Dissection of other artery (Acute) CAD (coronary artery disease) (Chronic) Back pain Anemia Melena Groin hematoma Anxiety (Chronic) [place] esophagus (Chronic) History of carotid endarterectomy (Chronic) 2009 on right side Diabetes mellitus, type II (Chronic) COPD (chronic obstructive pulmonary disease) (Chronic) inhaler prn CVA (cerebral vascular accident) (Chronic) 2008--slight left side weakness (no assistive devices)--follows with Dr. Baudilio LYNN (peripheral vascular disease) (Chronic) Hyperlipidemia (Chronic) HTN (hypertension) (Chronic) H/O: hysterectomy (Chronic) Medical History (Updated 08/31/23 @ 00:26 by Heladio Diaz M.D.) Osteoarthritis GI bleed Anemia Glaucoma bilt eyes On anticoagulant therapy plavix daily Coronary artery disease, occlusive Surgical History Status post femoropopliteal bypass surgery 11/06/[address] Jaar---thrombectomy/Femoral-femoral bypass History of colonoscopy with polypectomy History of bilateral tubal ligation History of dilatation and curettage x3 History of repair of right rotator cuff x2 History of esophagogastroduodenoscopy (EGD) History of appendectomy History of tooth extraction most teeth History of endoscopic sinus surgery History of bilateral cataract extraction History of heart artery stent x1 before 2000? @ [facility] History of cardiac cath x2 both @ [facility]--2000 with 1 stent/2003--no stent, instead fem-pop bypass History of bronchoscopy Status post femoral-popliteal bypass surgery 2004 Family History Sister Family history of diabetes mellitus Family history of esophageal cancer Family hx of colon cancer Sister Family history of diabetes mellitus Sister Family history of diabetes mellitus Sister Family history of diabetes mellitus Sister Family history of diabetes mellitus Sister Family history of diabetes mellitus Sister Family history of diabetes mellitus Brother Family history of diabetes mellitus Brother Family history of diabetes mellitus Brother Family history of diabetes mellitus Other Diabetes No family history of adverse response to anesthesia Stroke Social History Smoking Status: Unknown if ever smoked Tobacco Type: Cigarettes Cigarettes Per Day: 20-40; Second Hand Exposure: Yes; Do You Dip or Chew Tobacco: No; Hx Alcohol Use: No Hx Substance Use: No Preferred Language: Divehi Communication Ability: Effective Wholesale Representative Required: No Beliefs That Will Affect Care: None Current Living Situation: Family Current Living Situation Comment: Lives with daughter Feels Safe at Home: Yes Assistive Devices: Bedside Commode, Oxygen - Continuous, Stair Lift and Walker Allergies Allergies Allergy/AdvReac Type Severity Reaction Status Date / Time methadone Allergy Severe "couldn't Verified 08/30/23 21:04 swallow/eyes coming out of head" nickel Allergy Severe swelling Verified 08/30/23 21:04 and infections nitroglycerin Allergy Intermediate DECREASED Verified 08/30/23 21:04 BP propoxyphene Allergy Intermediate edema to Verified 08/30/23 21:04 face/lips/tongue diclofenac Allergy Mild Rash Verified 08/30/23 21:04 hydrocodone Allergy Mild "severe Verified 08/30/23 21:04 constipation" levofloxacin [From Levaquin] Allergy Mild nausea/vomi Verified 08/30/23 21:04 ting Penicillins Allergy Mild severe Verified 08/30/23 21:04 diarrhea/rash sitagliptin [From Januvia] Allergy Mild rash Verified 08/30/23 21:04 "blood blisters" strawberry Allergy Mild Diarrhea Verified 08/30/23 21:04 Home Meds Home Medications Medication Instructions Recorded Confirmed aspirin 81 mg tablet,delayed 81 mg PO QAM 11/06/18 08/30/23 release atorvastatin 40 mg tablet 40 mg PO QPM 11/06/18 08/30/23 buspirone 15 mg tablet 15 mg PO BID 11/06/18 08/30/23 clopidogrel 75 mg tablet 75 mg PO QAM 11/06/18 08/30/23 albuterol sulfate 90 mcg/actuation 2 puff inhalation Q4 PRN Shortness 11/16/18 08/30/23 aerosol inhaler (Ventolin HFA) Of Breath cholecalciferol (vitamin D3) 125 5,000 unit PO BID 03/21/19 08/30/23 mcg (5,000 unit) tablet pantoprazole 40 mg tablet,delayed 40 mg PO BID 03/21/19 08/30/23 release sucralfate 1 gram tablet (Carafate) 1 g PO ACHS 03/21/19 08/30/23 duloxetine 30 mg capsule,delayed 30 mg PO AMHS 12/13/22 08/30/23 release fluticasone fur. 100 mcg-umeclid 1 inh inhalation DAILY 12/13/22 08/30/23 62.5 mcg-vilant 25 mcg inhalat.powder (Trelegy Ellipta) ipratropium 0.5 mg-albuterol 3 mg 3 ml inhalation Q4 PRN Shortness 12/13/22 08/30/23 (2.5 mg base)/3 mL nebulization Of Breath Or Wheezing soln Bifidobacterium infantis 4 mg 4 mg PO DAILY 08/30/23 08/30/23 capsule (Align) baclofen 5 mg tablet 5 mg PO TID PRN muscle spasms 08/30/23 08/30/23 calcium carbonate 600 mg PO BID 08/30/23 08/30/23 famotidine 20 mg tablet 20 mg PO DAILY 08/30/23 08/30/23 furosemide 20 mg tablet (Lasix) 20 mg PO DAILY 08/30/23 08/30/23 gabapentin 300 mg capsule 300 mg PO TID 08/30/23 08/30/23 hydrocodone 5 mg-acetaminophen 325 1 tab PO Q6 PRN Pain 08/30/23 08/30/23 mg tablet insulin aspart U-100 100 unit/mL 0 unit subcut .QLUNCH 08/30/23 08/30/23 (3 mL) subcutaneous pen (Novolog FlexPen U-100 Insulin aspart) insulin glargine 100 unit/mL (3 10 unit subcut HS 08/30/23 08/30/23 mL) subcutaneous pen (Lantus Solostar U-100 Insulin) loratadine 10 mg tablet 10 mg PO DAILY 08/30/23 08/30/23 multivitamin 1 tab PO DAILY 08/30/23 08/30/23 polyethylene glycol 3350 17 gram 17 g PO DAILY PRN Constipation 08/30/23 08/30/23 oral powder packet (Miralax) sennosides 8.6 mg-docusate sodium 2 tab-cap PO AMHS 08/30/23 08/30/23 50 mg tablet (Senokot-S) Previous Rx's Medication Instructions Recorded miconazole nitrate 2 % vaginal 1 applic vaginal HS #1 g 01/07/23 cream midodrine 2.5 mg tablet 5 mg (2 x 2.5 mg) PO 01/07/23 TID@0800,1200,1700 #20 tabs Results & Data (ED) Vital Signs Vital Signs - 24 hr 08/30/23 18:14 08/30/23 19:49 08/30/23 20:19 Temperature 36.9 C Temperature Source Temporal Artery Scan Pulse Rate 117 H 101 H Pulse Rate [Finger] 88 Pulse Strength [Finger] Respiratory Rate 19 20 Respiratory Effort / Characteristics Non-Labored Spontaneous Respiratory Depth Normal Respiratory Pattern Blood Pressure 121/66 Blood Pressure [Left Arm] Blood Pressure Mean 84 Blood Pressure Mean [Left Arm] Pulse Oximetry 91 100 Oxygen Delivery Method Room Air Room Air Oxygen Flow Rate Sepsis Recent Fever Within 48 Hours No Sepsis New/Unexplained Change in Mental Status N/A Sepsis Action Taken by Nursing No Action Required Oxygen Flow Rate - Titration Pulse Oximetry Post Tiitration 08/30/23 20:27 08/30/23 20:28 08/30/23 21:05 Temperature Temperature Source Pulse Rate Pulse Rate [Finger] 93 H Pulse Strength [Finger] Respiratory Rate 19 Respiratory Effort / Characteristics Non-Labored Spontaneous Respiratory Depth Normal Respiratory Pattern Regular Blood Pressure Blood Pressure [Left Arm] 108/80 Blood Pressure Mean Blood Pressure Mean [Left Arm] 89 Pulse Oximetry 93 91 87 L Oxygen Delivery Method Room Air Room Air Room Air Oxygen Flow Rate 0 Sepsis Recent Fever Within 48 Hours Sepsis New/Unexplained Change in Mental Status Sepsis Action Taken by Nursing Oxygen Flow Rate - Titration 2 Pulse Oximetry Post Tiitration 95 08/30/23 21:25 08/30/23 22:15 08/30/23 23:00 Temperature Temperature Source Pulse Rate Pulse Rate [Finger] 98 H 100 H 97 H Pulse Strength [Finger] Normal Respiratory Rate 19 19 20 Respiratory Effort / Characteristics Spontaneous Non-Labored Spontaneous Non-Labored Respiratory Depth Normal Normal Normal Respiratory Pattern Regular Regular Regular Blood Pressure Blood Pressure [Left Arm] 132/81 133/77 143/79 H Blood Pressure Mean Blood Pressure Mean [Left Arm] 98 95 100 Pulse Oximetry 98 93 98 Oxygen Delivery Method Nasal Cannula Nasal Cannula Nasal Cannula Oxygen Flow Rate 2 2 Sepsis Recent Fever Within 48 Hours Sepsis New/Unexplained Change in Mental Status Sepsis Action Taken by Nursing Oxygen Flow Rate - Titration Pulse Oximetry Post Tiitration Laboratory Data 08/30/23 18:28 08/30/23 18:28 Lab Results 08/30/23 08/30/23 08/30/23 Range/Units 18:28 18:35 21:37 WBC 13.00 H (4.8-10.8) K/ul RBC 4.13 L (4.20-5.40) M/uL Hgb 10.7 L (12.0-16.0) g/dl Hct 34.1 L (37.0-47.0) % MCV 82.6 (80.0-100.0) fL MCH 25.9 (25.0-34.0) pg MCHC 31.4 L (32.0-36.0) g/dL RDW Std Deviation 43.3 (36.4-46.3) fL RDW Coeff of Shahrzad 14.4 (11.5-14.5) % Plt Count 309 (130-400) K/uL MPV 10.0 (9.4-12.4) fL Immature Gran % (Auto) 0.6 % Neut % (Auto) 84.5 % Lymph % (Auto) 9.8 % Mcculloch % (Auto) 4.7 % Eos % (Auto) 0.2 % Baso % (Auto) 0.2 % Neut # (Auto) 10.97 H (1.40-6.50) K/uL Lymph # (Auto) 1.28 (1.20-3.40) K/uL Mcculloch # (Auto) 0.61 H (0.11-0.59) K/uL Eos # (Auto) 0.03 (0.00-0.50) K/uL Baso # (Auto) 0.03 (0.00-0.20) K/uL Immature Gran # (Auto) 0.08 (0.01-0.20) K/uL PT 10.9 (9.0-12.0) Seconds INR 1.0 (0.9-1.1) APTT 29 (21-31) Seconds PTT Ratio 1.1 Sodium 125 L (136-145) mmol/L Potassium 4.6 (3.5-5.1) mmol/L Chloride 92 L (98-107) mmol/L Carbon Dioxide 27 (21-32) mmol/L Anion Gap 6 (3-11) BUN 16 (6-23) mg/dl Creatinine 0.74 (0.6-1.2) mg/dl Est Cr Clr Drug Dosing Not Reportable Est GFR ( Amer) 92.5 ml/min Est GFR (Non-Af Amer) 79.8 ml/min BUN/Creatinine Ratio 21.6 H (10-20) Glucose 165 H (70-99(Fasting)) mg/dl POC Glucose (70-99) mg/dl Osmolality 270 L (280-300) mOsm/kg Lactate 1.9 (0.4-2.0) mmol/L Calcium 9.2 (8.6-10.3) mg/dl Magnesium (1.7-2.4) mg/dl Total Bilirubin 0.7 (0.2-1.0) mg/dl AST 26 (13-39) U/L ALT 18 (7-52) U/L Alkaline Phosphatase 130 H (34-104) U/L Troponin I High Sens 19.5 H (0-14) pg/ml B-Natriuretic Peptide 235 H (0-100) pg/ml Total Protein 7.3 (6.0-8.3) gm/dl Albumin 3.9 (3.4-5.0) gm/dl Globulin 3.4 (2.5-4.0) gm/dl Albumin/Globulin Ratio 1.1 (0.9-2) Lipase 8 L (11-82) U/L TSH (0.300-4.500) uIu/ml Urine Color Yellow Urine Appearance Clear (Clear) Urine pH 5.5 (4.5-7.5) Ur Specific Walling 1.009 (1.000-1.030) Urine Protein Negative (Negative) Urine Glucose (UA) Negative (Negative) Urine Ketones Negative (Negative) Urine Blood Negative (Negative) Urine Nitrite Negative (Negative) Urine Bilirubin Negative (Negative) Urine Urobilinogen Negative (Negative) Ur Leukocyte Esterase Negative (Negative) Urine Osmolality 222 L (500-800) mOsm/kg Ur Random Sodium 15 mmol/L Adenovirus (PCR) Not Detected (NotDetected) B. pertussis DNA (PCR) Not Detected (NotDetected) B.parapertussis DNA PCR Not Detected (NotDetected) C. pneumoniae DNA (PCR) Not Detected (NotDetected) Coronavirus OC43 (PCR) Not Detected (NotDetected) Coronavirus HKU1 (PCR) Not Detected (NotDetected) Coronavirus 229E (PCR) Not Detected (NotDetected) SARS-CoV-2 (PCR) Not Detected (NotDetected) Coronavirus NL63 (PCR) Not Detected (NotDetected) Human Metapneumovir PCR Not Detected (NotDetected) Influenza Type A (PCR) Not Detected (NotDetected) Influenza Type B (PCR) Not Detected (NotDetected) M. pneumoniae (PCR) Not Detected (NotDetected) Parainfluenza 1 (PCR) Not Detected (NotDetected) Parainfluenza 2 (PCR) Not Detected (NotDetected) Parainfluenza 3 (PCR) Not Detected (NotDetected) Parainfluenza 4 (PCR) Not Detected (NotDetected) RSV (PCR) Not Detected (NotDetected) Entero/Rhino (PCR) Not Detected (NotDetected) 08/30/23 08/30/23 08/30/23 Range/Units 21:41 23:44 Unknown WBC (4.8-10.8) K/ul RBC (4.20-5.40) M/uL Hgb (12.0-16.0) g/dl Hct (37.0-47.0) % MCV (80.0-100.0) fL MCH (25.0-34.0) pg MCHC (32.0-36.0) g/dL RDW Std Deviation (36.4-46.3) fL RDW Coeff of Shahrzad (11.5-14.5) % Plt Count (130-400) K/uL MPV (9.4-12.4) fL Immature Gran % (Auto) % Neut % (Auto) % Lymph % (Auto) % Mcculloch % (Auto) % Eos % (Auto) % Baso % (Auto) % Neut # (Auto) (1.40-6.50) K/uL Lymph # (Auto) (1.20-3.40) K/uL M[place]ulloch # (Auto) (0.11-0.59) K/uL Eos # (Auto) (0.00-0.50) K/uL Baso # (Auto) (0.00-0.20) K/uL Immature Gran # (Auto) (0.01-0.20) K/uL PT (9.0-12.0) Seconds INR (0.9-1.1) APTT (21-31) Seconds PTT Ratio Sodium (136-145) mmol/L Potassium (3.5-5.1) mmol/L Chloride (98-107) mmol/L Carbon Dioxide (21-32) mmol/L Anion Gap (3-11) BUN (6-23) mg/dl Creatinine (0.6-1.2) mg/dl Est Cr Clr Drug Dosing Est GFR ( Amer) ml/min Est GFR (Non-Af Amer) ml/min BUN/Creatinine Ratio (10-20) Glucose (70-99(Fasting)) mg/dl POC Glucose 260 H (70-99) mg/dl Osmolality (280-300) mOsm/kg Lactate (0.4-2.0) mmol/L Calcium (8.6-10.3) mg/dl Magnesium 1.6 L (1.7-2.4) mg/dl Total Bilirubin (0.2-1.0) mg/dl AST (13-39) U/L ALT (7-52) U/L Alkaline Phosphatase (34-104) U/L Troponin I High Sens 17.1 H (0-14) pg/ml B-Natriuretic Peptide (0-100) pg/ml Total Protein (6.0-8.3) gm/dl Albumin (3.4-5.0) gm/dl Globulin (2.5-4.0) gm/dl Albumin/Globulin Ratio (0.9-2) Lipase (11-82) U/L TSH 0.349 (0.300-4.500) uIu/ml Urine Color Urine Appearance (Clear) Urine pH (4.5-7.5) Ur Specific Walling (1.000-1.030) Urine Protein (Negative) Urine Glucose (UA) (Negative) Urine Ketones (Negative) Urine Blood (Negative) Urine Nitrite (Negative) Urine Bilirubin (Negative) Urine Urobilinogen (Negative) Ur Leukocyte Esterase (Negative) Urine Osmolality (500-800) mOsm/kg Ur Random Sodium mmol/L Adenovirus (PCR) Not Detected (NotDetected) B. pertussis DNA (PCR) Not Detected (NotDetected) B.parapertussis DNA PCR Not Detected (NotDetected) C. pneumoniae DNA (PCR) Not Detected (NotDetected) Coronavirus OC43 (PCR) Not Detected (NotDetected) Coronavirus HKU1 (PCR) Not Detected (NotDetected) Coronavirus 229E (PCR) Not Detected (NotDetected) SARS-CoV-2 (PCR) Not Detected (NotDetected) Coronavirus NL63 (PCR) Not Detected (NotDetected) Human Metapneumovir PCR Not Detected (NotDetected) Influenza Type A (PCR) Not Detected (NotDetected) Influenza Type B (PCR) Not Detected (NotDetected) M. pneumoniae (PCR) Not Detected (NotDetected) Parainfluenza 1 (PCR) Not Detected (NotDetected) Parainfluenza 2 (PCR) Not Detected (NotDetected) Parainfluenza 3 (PCR) Not Detected (NotDetected) Parainfluenza 4 (PCR) Not Detected (NotDetected) RSV (PCR) Not Detected (NotDetected) Entero/Rhino (PCR) Not Detected (NotDetected) Administered Medications Discontinued Medications Albuterol (Albut/Ipratrop 3mg/0.5mg Neb 3 Ml Vial) 3 ml NEB NOW STA; Protocol Stop: 08/30/23 19:22 Last Admin: 08/30/23 19:42 Dose: 3 ml Documented By: Doxycycline Hyclate (Doxycycline Hyclate 100 Mg Cap) 100 mg PO NOW STA Stop: 08/30/23 20:07 Last Admin: 08/30/23 20:25 Dose: 100 mg Documented By: GGG Fentanyl Citrate (Fentanyl Citrate Pf 100 Mcg/2 Ml Vial) 25 mcg IV NOW STA Stop: 08/30/23 19:22 Last Admin: 08/30/23 20:24 Dose: 25 mcg Documented By: JOSEPH Albumin Human (Albumin 25%) 25 gm in 100 mls @ 50 mls/hr IV ONE ONE Stop: 08/30/23 23:04 Last Infusion: 08/30/23 23:14 Dose: Infused Documented By: Admin: 08/30/23 21:21 Dose: 50 mls/hr Documented By: JOSEPH Ioversol (Optiray 320 125ml) 120 ml IV ONCE ONE Stop: 08/30/23 19:58 Last Admin: 08/30/23 19:57 Dose: 120 ml Documented By: ALDO Methylprednisolone (Methylprednisolone 125 Mg/2 Ml Vial) 60 mg IV NOW STA Stop: 08/30/23 19:22 Last Admin: 08/30/23 19:45 Dose: 60 mg Documented By: Midodrine (Midodrine Hcl 2.5 Mg Tab) 5 mg PO NOW STA Stop: 08/30/23 21:08 Last Admin: 08/30/23 21:48 Dose: 5 mg Documented By: JOSEPH Imaging Data Radiologist's Impression: Chest CTA 08/30/23 19:21 Exam(s): CTA CHEST IV Amt: 120ml optiray 320 EXAM: CT Angiography Chest With Intravenous Contrast CLINICAL HISTORY: PE, cp cough, smoker. TECHNIQUE: Axial computed tomographic angiography images of the chest with intravenous contrast. CTDI is 75.45 mGy and DLP is 1103.04 mGy-cm. Automated exposure control was utilized for the study. A dose lowering technique was utilized adhering to the principles of ALARA. MIP reconstructed images were created and reviewed. COMPARISON: CTA chest dated 12/14/2022 FINDINGS: Pulmonary arteries: There is no evidence for pulmonary embolism. Aorta: Atherosclerotic calcification of the aorta. No dissection or aneurysm. Lungs: No focal airspace consolidation identified. Interlobular septal thickening and mild peribronchial cuffing noted involving the lower lobes. There is a rounded noncalcified pulmonary nodule with somewhat radiating spiculated contours, stable in appearance and size when compared to the prior examination in the anterolateral right upper lobe, measuring 10 x 8 mm. This was reported is stable from the previous examination from June 2019. Pleural space: Unremarkable. No significant effusion. No pneumothorax. Heart: The cardiac chambers are prominent in size. Prominent coronary artery calcification. No pericardial effusion. Bones/joints: No acute fracture. No dislocation. Soft tissues: Unremarkable. Lymph nodes: The previously noted right supraclavicular lymphadenopathy is stable in appearance. The paratracheal and pericarinal lymphadenopathy noted previously is stable to minimally improved. IMPRESSION: 1. There is no evidence for pulmonary embolism. 2. No focal airspace consolidation identified. Interlobular septal thickening and mild peribronchial cuffing noted involving the lower lobes. This suggests a component of vascular congestion. Interstitial infection is also a diagnostic consideration. No pleural effusion or pneumothorax. 3. Right upper lobe pulmonary nodule, stable from the prior examination, which was reportedly stable from the June 2019 examination. No follow- up required. 4. The previously noted right suprageniculate lymphadenopathy is stable. The paratracheal and subcarinal lymph nodes are stable to mildly improved. 5. Stable cardiomegaly. No pericardial effusion. Electronically signed by: Castro Sanchez MD 08/30/23 22:23 PM Discharge Plan Visit Data Chief Complaint: Referred by Doctor Stated Complaint: IRREGULAR HEARTBEAT, [place]ONIA ED Provider: Heladio Diaz Discharge Problem: COPD exacerbation, Acute hyponatremia, Chest pain Patient Disposition: Being Evaluated by Hospitalist Discharge Instructions Interventions: ED Discharge Assessment Last Done: 08/30/23 23:51 Prescriptions Prescriptions: No Action atorvastatin 40 mg tablet 40 mg PO QPM clopidogrel 75 mg tablet 75 mg PO QAM aspirin 81 mg Tablet,Delayed Release (Dr/Ec) 81 mg PO QAM buspirone 15 mg tablet 15 mg PO BID albuterol sulfate [Ventolin HFA] 90 mcg/actuation Hfa Aerosol Inhaler 2 puff INHALATION Q4 PRN (Reason: Shortness Of Breath) sucralfate [Carafate] 1 gram Tablet 1 g PO ACHS pantoprazole 40 mg Tablet,Delayed Release (Dr/Ec) 40 mg PO BID cholecalciferol (vitamin D3) 125 mcg (5,000 unit) Tablet 5,000 unit PO BID ipratropium-albuterol 0.5 mg-3 mg(2.5 mg base)/3 mL solution for nebulization 3 ml INHALATION Q4 PRN (Reason: Shortness Of Breath Or Wheezing) Trelegy Ellipta 100-62.5-25 mcg blister with device 1 inh INHALATION DAILY duloxetine 30 mg capsule,delayed release(DR/EC) 30 mg PO AMHS miconazole nitrate 2 % Cream 1 applic vaginal HS Qty: 1 0RF midodrine 2.5 mg Tablet 5 mg PO TID@0800,1200,1700 Qty: 20 0RF multivitamin Tablet 1 tab PO DAILY polyethylene glycol 3350 [Miralax] 17 gram Powder In Packet 17 g PO DAILY PRN (Reason: Constipation) hydrocodone-acetaminophen 5-325 mg tablet 1 tab PO Q6 PRN (Reason: Pain) sennosides-docusate sodium [Senokot-S] 8.6-50 mg Tablet 2 tab-cap PO AMHS calcium carbonate 600 mg calcium (1,500 mg) Tablet 600 mg PO BID famotidine 20 mg tablet 20 mg PO DAILY gabapentin 300 mg capsule 300 mg PO TID furosemide [Lasix] 20 mg Tablet 20 mg PO DAILY loratadine 10 mg tablet 10 mg PO DAILY insulin aspart U-100 [Novolog FlexPen U-100 Insulin] 100 unit/mL (3 mL) insulin pen 0 unit SUBCUT .QLUNCH Rx Instructions: per sliding scale insulin glargine [Lantus Solostar U-100 Insulin] 100 unit/mL (3 mL) insulin pen 10 unit SUBCUT HS baclofen 5 mg tablet 5 mg PO TID PRN (Reason: muscle spasms) Align 4 mg Capsule 4 mg PO DAILY
[2023-08-30 19:33] LABS: Adenovirus PCR Not Detected (NotDetected); Bordetella parapertussis PCR Not Detected (NotDetected); Bordetella pertussis PCR Not Detected (NotDetected); Chlamydia pneumoniae PCR Not Detected (NotDetected); Coronavirus 229E PCR Not Detected (NotDetected); Coronavirus CoV-2 (COVID19)PCR Not Detected (NotDetected); Coronavirus HKU1 PCR Not Detected (NotDetected); Coronavirus NL63 PCR Not Detected (NotDetected); Coronavirus OC43PCR Not Detected (NotDetected); Human Metapneumovirus PCR Not Detected (NotDetected); Influenza A PCR Not Detected (NotDetected); Influenza B PCR Not Detected (NotDetected); Mycoplasma pneumoniae PCR Not Detected (NotDetected); Parainfluenza Virus 1 PCR Not Detected (NotDetected); Parainfluenza Virus 2 PCR Not Detected (NotDetected); Parainfluenza Virus 3 PCR Not Detected (NotDetected); Parainfluenza Virus 4 PCR Not Detected (NotDetected); Respiratory Syncytial VirusPCR Not Detected (NotDetected); Rhinovirus/Enterovirus PCR Not Detected (NotDetected)
[2023-08-30] MEDS: ALBUT/IPRATROP 3MG/0.5MG NEB 3 ML VIAL NEB STA (19:42)
[2023-08-30] MEDS: methylPREDNISolone 125 MG/2 ML VIAL IV STA (19:45)
[2023-08-30] MEDS: OPTIRAY 320 125ml IV ONE (19:57)
[2023-08-30] MEDS: fentaNYL citrate PF 100 MCG/2 ML VIAL IV STA (20:24)
[2023-08-30] MEDS: DOXYCYCLINE HYCLATE 100 MG CAP PO STA (20:25)
[2023-08-30] MEDS: ALBUMIN 25% 25 GM/100 ML VIAL IV ONE (21:21)
[2023-08-30] MEDS: MIDODRINE HCL 2.5 MG TAB PO STA (21:48)
--- NOTE | 2023-08-30 22:25 | CT Scan Report ---
Exam(s): CTA CHEST IV Amt: 120ml optiray 320 EXAM: CT Angiography Chest With Intravenous Contrast CLINICAL HISTORY: PE, cp cough, smoker. TECHNIQUE: Axial computed tomographic angiography images of the chest with intravenous contrast. CTDI is 75.45 mGy and DLP is 1103.04 mGy-cm. Automated exposure control was utilized for the study. A dose lowering technique was utilized adhering to the principles of ALARA. MIP reconstructed images were created and reviewed. COMPARISON: CTA chest dated 12/14/2022 FINDINGS: Pulmonary arteries: There is no evidence for pulmonary embolism. Aorta: Atherosclerotic calcification of the aorta. No dissection or aneurysm. Lungs: No focal airspace consolidation identified. Interlobular septal thickening and mild peribronchial cuffing noted involving the lower lobes. There is a rounded noncalcified pulmonary nodule with somewhat radiating spiculated contours, stable in appearance and size when compared to the prior examination in the anterolateral right upper lobe, measuring 10 x 8 mm. This was reported is stable from the previous examination from June 2019. Pleural space: Unremarkable. No significant effusion. No pneumothorax. Heart: The cardiac chambers are prominent in size. Prominent coronary artery calcification. No pericardial effusion. Bones/joints: No acute fracture. No dislocation. Soft tissues: Unremarkable. Lymph nodes: The previously noted right supraclavicular lymphadenopathy is stable in appearance. The paratracheal and pericarinal lymphadenopathy noted previously is stable to minimally improved. IMPRESSION: 1. There is no evidence for pulmonary embolism. 2. No focal airspace consolidation identified. Interlobular septal thickening and mild peribronchial cuffing noted involving the lower lobes. This suggests a component of vascular congestion. Interstitial infection is also a diagnostic consideration. No pleural effusion or pneumothorax. 3. Right upper lobe pulmonary nodule, stable from the prior examination, which was reportedly stable from the June 2019 examination. No follow- up required. 4. The previously noted right suprageniculate lymphadenopathy is stable. The paratracheal and subcarinal lymph nodes are stable to mildly improved. 5. Stable cardiomegaly. No pericardial effusion. Electronically signed by: Castro Sanchez MD 08/30/23 22:23 PM
[2023-08-30 22:27] LABS: Magnesium 1.6 mg/dl (1.7-2.4)
[2023-08-30 22:41] LABS: Adenovirus PCR Not Detected (NotDetected); Bordetella parapertussis PCR Not Detected (NotDetected); Bordetella pertussis PCR Not Detected (NotDetected); Chlamydia pneumoniae PCR Not Detected (NotDetected); Coronavirus 229E PCR Not Detected (NotDetected); Coronavirus CoV-2 (COVID19)PCR Not Detected (NotDetected); Coronavirus HKU1 PCR Not Detected (NotDetected); Coronavirus NL63 PCR Not Detected (NotDetected); Coronavirus OC43PCR Not Detected (NotDetected); Human Metapneumovirus PCR Not Detected (NotDetected); Influenza A PCR Not Detected (NotDetected); Influenza B PCR Not Detected (NotDetected); Mycoplasma pneumoniae PCR Not Detected (NotDetected); Parainfluenza Virus 1 PCR Not Detected (NotDetected); Parainfluenza Virus 2 PCR Not Detected (NotDetected); Parainfluenza Virus 3 PCR Not Detected (NotDetected); Parainfluenza Virus 4 PCR Not Detected (NotDetected); Respiratory Syncytial VirusPCR Not Detected (NotDetected); Rhinovirus/Enterovirus PCR Not Detected (NotDetected)
[2023-08-30 22:42] LABS: Troponin I High Sensitivity 17.1 pg/ml (0-14)
[2023-08-30 22:43] LABS: Thyroid Stimulating Hormone 0.349 uIu/ml (0.300-4.500)
--- NOTE | 2023-08-30 22:55 | History & Physical Report ---
Date of Service August 30, 2023 Assessment & Plan (1) Sepsis: Plan: Secondary to possible aspiration pneumonitis COPD exacerbation secondary to above Acute on chronic hyponatremia, possibly from hypervolemia chronic systolic heart failure (EF 55%, TTE 2022), equivocal volume status, patient clinically dry with some congestion on x-ray valvular heart disease (severe MR, mild TR) pulmonary hypertension history of cardiac arrest CAD status post stent PVD status post surgery CVA, hx intracranial hemorrhage as per records hypertension, BP on the lower side hypotension on midodrine hyperlipidemia on statin Rx DM 2 insulin requiring, suboptimal control as of recent hemoglobin A1c of 9.13 May 2023 chronic anemia, hemoglobin at baseline ongoing tobacco abuse. Medical telemetry CS, clindamycin Aspiration precautions, BUSINESS [employer] A[employer]LY[employer] evcolleen Nebs RTC, prednisone course for presumptive COPD exacerbation IV Lasix 1 dose now Recheck serum sodium after Lasix administration Nephrology consult if without improvement Basal bolus insulin, ISS BG goal 1 10-1 40, carb count coverage, update hemoglobin A1c DVT prophylaxis. Lovenox subcu DNR as per patient. Patient requests for daughter to be given periodic updates regarding care. Ms. Diamond Braxton, contact #[phone]. Text document was generated using [email or web address] voice recognition software. It may contain grammatical or spelling errors. Kindly contact undersigned for clarification of any documentation item in question. History of Present Illness Chief Complaint: Worsening cough, shortness of breath Primary Care Provider: Courtney Jay MD History obtained from patient and records. Medical history significant for chronic diastolic heart failure (EF 55%, TTE 2022), valvular heart disease (severe MR, mild TR), pulmonary hypertension, history of cardiac arrest, CAD status post stent, PVD status post surgery, CVA, hx intracranial hemorrhage as per records, COPD, hypertension, hypotension on midodrine, hyperlipidemia, DM 2 insulin requiring, chronic hyponatremia, chronic anemia (baseline hemoglobin 10), anxiety/mood disorder, ongoing tobacco abuse. Last [facility] confinement December 2022 for septic shock, kidney dysfunction secondary to complicated UTI/wound infection. Patient transferred to [facility] [facility] for further management. Recent [facility] confinement under vascular service July 2023 for right lower extremity vascular procedure. Few days history of junky cough symptoms associated with worsening shortness of breath. Achy left-sided chest pain. Admits to choking symptoms with food/water intake for some time now. Patient directed to ER from PCP's office. Solu-Medrol, neb treatment, doxycycline administered at the ER. Medical History as above Surgical History : Vascular procedures, skin grafting, partial hysterectomy, cataract surgery, toe amputation, bladder neck procedure, skin debridement Family History : Breast cancer, DM, stroke Personal/Social history : Few cigarettes a day, no EtOH intake, disabled Allergies Allergy/AdvReac Type Severity Reaction Status Date / Time methadone Allergy Severe "couldn't Verified 08/30/23 21:04 swallow/eyes coming out of head" nickel Allergy Severe swelling Verified 08/30/23 21:04 and infections nitroglycerin Allergy Intermediate DECREASED Verified 08/30/23 21:04 BP propoxyphene Allergy Intermediate edema to Verified 08/30/23 21:04 face/lips/tongue diclofenac Allergy Mild Rash Verified 08/30/23 21:04 hydrocodone Allergy Mild "severe Verified 08/30/23 21:04 constipation" levofloxacin [From Levaquin] Allergy Mild nausea/vomi Verified 08/30/23 21:04 ting Penicillins Allergy Mild severe Verified 08/30/23 21:04 diarrhea/rash sitagliptin [From Januvia] Allergy Mild rash Verified 08/30/23 21:04 "blood blisters" strawberry Allergy Mild Diarrhea Verified 08/30/23 21:04 Home Medications Medication Instructions Recorded Confirmed Type aspirin 81 mg tablet,delayed 81 mg PO QAM 11/06/18 08/30/23 History release atorvastatin 40 mg tablet 40 mg PO QPM 11/06/18 08/30/23 History buspirone 15 mg tablet 15 mg PO BID 11/06/18 08/30/23 History clopidogrel 75 mg tablet 75 mg PO QAM 11/06/18 08/30/23 History albuterol sulfate 90 mcg/actuation 2 puff inhalation Q4 PRN Shortness 11/16/18 08/30/23 History aerosol inhaler (Ventolin HFA) Of Breath cholecalciferol (vitamin D3) 125 5,000 unit PO BID 03/21/19 08/30/23 History mcg (5,000 unit) tablet pantoprazole 40 mg tablet,delayed 40 mg PO BID 03/21/19 08/30/23 History release sucralfate 1 gram tablet (Carafate) 1 g PO ACHS 03/21/19 08/30/23 History duloxetine 30 mg capsule,delayed 30 mg PO AMHS 12/13/22 08/30/23 History release fluticasone fur. 100 mcg-umeclid 1 inh inhalation DAILY 12/13/22 08/30/23 History 62.5 mcg-vilant 25 mcg inhalat.powder (Trelegy Ellipta) ipratropium 0.5 mg-albuterol 3 mg 3 ml inhalation Q4 PRN Shortness 12/13/22 08/30/23 History (2.5 mg base)/3 mL nebulization Of Breath Or Wheezing soln miconazole nitrate 2 % vaginal 1 applic vaginal HS #1 g 01/07/23 08/30/23 Rx cream midodrine 2.5 mg tablet 5 mg (2 x 2.5 mg) PO 01/07/23 08/30/23 Rx TID@0800,1200,1700 #20 tabs Bifidobacterium infantis 4 mg 4 mg PO DAILY 08/30/23 08/30/23 History capsule (Align) baclofen 5 mg tablet 5 mg PO TID PRN muscle spasms 08/30/23 08/30/23 History calcium carbonate 600 mg PO BID 08/30/23 08/30/23 History famotidine 20 mg tablet 20 mg PO DAILY 08/30/23 08/30/23 History furosemide 20 mg tablet (Lasix) 20 mg PO DAILY 08/30/23 08/30/23 History gabapentin 300 mg capsule 300 mg PO TID 08/30/23 08/30/23 History hydrocodone 5 mg-acetaminophen 325 1 tab PO Q6 PRN Pain 08/30/23 08/30/23 History mg tablet insulin aspart U-100 100 unit/mL 0 unit subcut .QLUNCH 08/30/23 08/30/23 History (3 mL) subcutaneous pen (Novolog FlexPen U-100 Insulin aspart) insulin glargine 100 unit/mL (3 10 unit subcut HS 08/30/23 08/30/23 History mL) subcutaneous pen (Lantus Solostar U-100 Insulin) loratadine 10 mg tablet 10 mg PO DAILY 08/30/23 08/30/23 History multivitamin 1 tab PO DAILY 08/30/23 08/30/23 History polyethylene glycol 3350 17 gram 17 g PO DAILY PRN Constipation 08/30/23 08/30/23 History oral powder packet (Miralax) sennosides 8.6 mg-docusate sodium 2 tab-cap PO AMHS 08/30/23 08/30/23 History 50 mg tablet (Senokot-S) Past Med/Surg History Problem List Sepsis Chest pain (Acute) Acute hyponatremia (Acute) ASCVD (arteriosclerotic cardiovascular disease) Hyperkalemia PRAKASH (acute kidney injury) Septic shock Severe sepsis Back pain (Acute) Stress fracture of sacrococcygeal region (Acute) Leukocytosis (Acute) Transaminitis (Acute) Elevated lactic acid level (Acute) Non-ST elevation ME (NSTEMI) (Acute) Acute exacerbation of CHF (congestive heart failure) (Acute) Hypokalemia Pneumonia PVD (peripheral vascular disease) Severe mitral regurgitation Acute on chronic diastolic heart failure with preserved ejection fraction SOB (shortness of breath) (Acute) CHF (congestive heart failure) (Acute) Cellulitis of right lower extremity COPD exacerbation (Acute) Obesity (BMI 30.0-34.9) Emphysema lung Right upper lobe pulmonary nodule Precordial chest pain (Acute) SOB (shortness of breath) (Acute) Wheezing (Acute) Edema of right lower leg (Acute) Elevated troponin (Acute) Abnormal chest CT (Acute) Encounter for pre-operative examination Status post carotid endarterectomy (Chronic) right Pain of right lower extremity due to ischemia (Acute) Tobacco use disorder, continuous (Chronic) 2ppd GI (gastrointestinal bleed) (Acute) Hematoma of right thigh (Acute) Symptomatic anemia (Acute) Dissection of other artery (Acute) CAD (coronary artery disease) (Chronic) Back pain Anemia Melena Groin hematoma Anxiety (Chronic) [place] esophagus (Chronic) History of carotid endarterectomy (Chronic) 2009 on right side Diabetes mellitus, type II (Chronic) COPD (chronic obstructive pulmonary disease) (Chronic) inhaler prn CVA (cerebral vascular accident) (Chronic) 2008--slight left side weakness (no assistive devices)--follows with Dr. Astudillo PVRebekah (peripheral vascular disease) (Chronic) Hyperlipidemia (Chronic) HTN (hypertension) (Chronic) H/O: hysterectomy (Chronic) Medical History (Updated 08/31/23 @ 09:10 by Patricio Araujo MD) Osteoarthritis GI bleed Anemia Glaucoma bilt eyes On anticoagulant therapy plavix daily Coronary artery disease, occlusive Surgical History Status post femoropopliteal bypass surgery 11/06/[address] Jara---thrombectomy/Femoral-femoral bypass History of colonoscopy with polypectomy History of bilateral tubal ligation History of dilatation and curettage x3 History of repair of right rotator cuff x2 History of esophagogastroduodenoscopy (EGD) History of appendectomy History of tooth extraction most teeth History of endoscopic sinus surgery History of bilateral cataract extraction History of heart artery stent x1 before 2000? @ [facility] History of cardiac cath x2 both @ [facility]--2000 with 1 stent/2003--no stent, instead fem-pop bypass History of bronchoscopy Status post femoral-popliteal bypass surgery 2004 Family History Sister Family history of diabetes mellitus Family history of esophageal cancer Family hx of colon cancer Sister Family history of diabetes mellitus Sister Family history of diabetes mellitus Sister Family history of diabetes mellitus Sister Family history of diabetes mellitus Sister Family history of diabetes mellitus Sister Family history of diabetes mellitus Brother Family history of diabetes mellitus Brother Family history of diabetes mellitus Brother Family history of diabetes mellitus Other Diabetes No family history of adverse response to anesthesia Stroke Social History Smoking Status: Current every day smoker Tobacco Type: Cigarettes Cigarettes Per Day: 10; Second Hand Exposure: Yes; Do You Dip or Chew Tobacco: No; Hx Alcohol Use: No Hx Substance Use: Yes (Takes [place]han PRN for chronic pain) Preferred Language: Sinhala Communication Ability: Effective Lot Associate Required: No Beliefs That Will Affect Care: None Current Living Situation: Family Current Living Situation Comment: Lives with grandson, has 24/ caregivers Other Information That Helps Us Care for You: No Feels Safe at Home: Yes Safety Concerns: Feels Safe At This Time Assistive Devices: Glasses, Oxygen - Continuous and Wheelchair Review of Systems Review of Systems: As per HPI, all other systems reviewed and negative Physical Exam Physical Exam: GENERAL: Slightly uncomfortable, obese, dysarthric (chronic), no respiratory distress SKIN: Pallor, warm HEENT: Pale palpebral conjunctivae, no ptosis, chronic facial asymmetry, dry buccal mucosa, nasal cannula in place NECK : Supple, no tenderness CHEST : Decreased breath sounds, occasional expiratory wheezes, no tenderness HEART : RRR, systolic murmur ABDOMEN: Some distention, nontender EXTREMITIES : Minimal LE swelling, no LE tenderness, no other conspicuous deformities noted NEUROLOGIC : Coherent, chronic facial asymmetry, chronic dysarthria, gait and stance not assessed Results & Data Results & Data Vital Signs (Past 12 Hours) Vital Signs Temp Pulse Pulse Resp BP BP Pulse Ox 08/30/23 22:15 100 H 19 133/77 93 08/30/23 21:25 98 H 19 132/81 98 08/30/23 21:05 87 L 08/30/23 20:28 93 H 19 108/80 91 08/30/23 20:27 93 08/30/23 20:19 101 H 08/30/23 19:49 88 20 100 08/30/23 18:14 36.9 C 117 H 19 121/66 91 O2 Del Method O2 Flow Rate 08/30/23 22:15 Nasal Cannula 2 08/30/23 21:25 Nasal Cannula 08/30/23 21:05 Room Air 0 08/30/23 20:28 Room Air 08/30/23 20:27 Room Air 08/30/23 20:19 08/30/23 19:49 Room Air 08/30/23 18:14 Room Air Laboratory Results Laboratory Results WBC 13.00 K/ul (4.8-10.8) H 08/30/23 18: RBC 4.13 M/uL (4.20-5.40) L 08/30/23 18:28 Hgb 10.7 g/dl (12.0-16.0) L 08/30/23 18:28 Hct 34.1 % (37.0-47.0) L 08/30/23 18: MCV 82.6 fL (80.0-100.0) 08/30/23 18: MCH 25.9 pg (25.0-34.0) 08/30/23 18: MCHC 31.4 g/dL (32.0-36.0) L 08/30/23 18:28 RDW Std Deviation 43.3 fL (36.4-46.3) 08/30/23 18: RDW Coeff of Shahrzad 14.4 % (11.5-14.5) 08/30/23: Plt Count 309 K/uL (130-400) 08/30/23: MPV 10.0 fL (9.4-12.4) 08/30/23: Immature Gran % (Auto) 0.6 % 08/30/23 18: Neut % (Auto) 84.5 % 08/30/23 18: Lymph % (Auto) 9.8 % 08/30/23 18: [place] % (Auto) 4.7 % 08/30/23 18: Eos % (Auto) 0.2 % 08/30/23: Baso % (Auto) 0.2 % 08/30/23 Neut # (Auto) 10.97 K/uL (1.40-6.50) H 08/30/23 18: Lymph # (Auto) 1.28 K/uL (1.20-3.40) 08/30/23 18: [place] # (Auto) 0.61 K/uL (0.11-0.59) H 08/30/23 18: Eos # (Auto) 0.03 K/uL (0.00-0.50) 08/30/23 Baso # (Auto) 0.03 K/uL (0.00-0.20) 08/30/23: Immature Gran # (Auto) 0.08 K/uL (0.01-0.20) 08/30/23 PT 10.9 Seconds (9.0-12.0) 08/30/23: INR 1.0 (0.9-1.1) 08/30/23: APTT 29 Seconds (21-31) 08/30/23: PTT Ratio 1.1 08/30/23 Sodium 125 mmol/L (136-145) L 08/30/23 Potassium 4.6 mmol/L (3.5-5.1) 08/30/23 Chloride 92 mmol/L (98-107) L 08/30/23 Carbon Dioxide 27 mmol/L (21-32) 08/30/23: Anion Gap 6 (3-11) 08/30/23 18: BUN 16 mg/dl (6-23) 08/30/23 18: Creatinine 0.74 mg/dl (0.6-1.2) 08/30/23 18: Est Cr Clr Drug Dosing Not Reportable 08/30/23 18: Est GFR ( Amer) 92.5 ml/min 08/30/23 18: Est GFR (Non-Af Amer) 79.8 ml/min 08/30/23 18: BUN/Creatinine Ratio 21.6 (10-20) H 08/30/23 18: Glucose 165 mg/dl (70-99(Fasting)) H 08/30/23 18: Osmolality 270 mOsm/kg (280-300) L 08/30/23 18: Lactate 1.9 mmol/L (0.4-2.0) 08/30/23 21:37 Calcium 9.2 mg/dl (8.6-10.3) 08/30/23 18: Magnesium 1.6 mg/dl (1.7-2.4) L 08/30/23 21:41 Total Bilirubin 0.7 mg/dl (0.2-1.0) 08/30/23 18: AST 26 U/L (13-39) 08/30/23 18: ALT 18 U/L (7-52) 08/30/23 18: Alkaline Phosphatase 130 U/L (34-104) H 08/30/23 18:28 Troponin I High Sens 17.1 pg/ml (0-14) H 08/30/23 21:41 B-Natriuretic Peptide 235 pg/ml (0-100) H 08/30/23 21:37 Total Protein 7.3 gm/dl (6.0-8.3) 08/30/23 18: Albumin 3.9 gm/dl (3.4-5.0) 08/30/23 18: Globulin 3.4 gm/dl (2.5-4.0) 08/30/23 18:28 Albumin/Globulin Ratio 1.1 (0.9-2) 08/30/23 18: Lipase 8 U/L (11-82) L 08/30/23 18: TSH 0.349 uIu/ml (0.300-4.500) 08/30/23 21:41 Urine Color Yellow 08/30/23 18: Urine Appearance Clear (Clear) 08/30/23 18: Urine pH 5.5 (4.5-7.5) 08/30/23 18: Ur Specific [place] 1.009 (1.000-1.030) 08/30/23 18: Urine Protein Negative (Negative) 08/30/23 18: Urine Glucose (UA) Negative (Negative) 08/30/23 18: Urine Ketones Negative (Negative) 08/30/23: Urine Blood Negative (Negative) 08/30/23: Urine Nitrite Negative (Negative) 08/30/23 Urine Bilirubin Negative (Negative) 08/30/23 18: Urine Urobilinogen Negative (Negative) 08/30/23: Ur Leukocyte Esterase Negative (Negative) 08/30/23: Urine Osmolality 222 mOsm/kg (500-800) L 08/30/23 18: Adenovirus (PCR) Not Detected (NotDetected) 08/30/23 Unknown B. pertussis DNA (PCR) Not Detected (NotDetected) 08/30/23 Unknown B.parapertussis DNA PCR Not Detected (NotDetected) 08/30/23 Unknown C. pneumoniae DNA (PCR) Not Detected (NotDetected) 08/30/23 Unknown Coronavirus OC43 (PCR) Not Detected (NotDetected) 08/30/23 Unknown Coronavirus HKU1 (PCR) Not Detected (NotDetected) 08/30/23 Unknown Coronavirus 229E (PCR) Not Detected (NotDetected) 08/30/23 Unknown SARS-CoV-2 (PCR) Not Detected (NotDetected) 08/30/23 Unknown Coronavirus NL63 (PCR) Not Detected (NotDetected) 08/30/23 Unknown Human Metapneumovir PCR Not Detected (NotDetected) 08/30/23 Unknown Influenza Type A (PCR) Not Detected (NotDetected) 08/30/23 Unknown Influenza Type B (PCR) Not Detected (NotDetected) 08/30/23 Unknown M. pneumoniae (PCR) Not Detected (NotDetected) 08/30/23 Unknown Parainfluenza 1 (PCR) Not Detected (NotDetected) 08/30/23 Unknown Parainfluenza 2 (PCR) Not Detected (NotDetected) 08/30/23 Unknown Parainfluenza 3 (PCR) Not Detected (NotDetected) 08/30/23 Unknown Parainfluenza 4 (PCR) Not Detected (NotDetected) 08/30/23 Unknown RSV (PCR) Not Detected (NotDetected) 08/30/23 Unknown Entero/Rhino (PCR) Not Detected (NotDetected) 08/30/23 Unknown Impressions Chest CTA 08/30/23 19:21 Exam(s): CTA CHEST IV Amt: 120ml optiray 320 EXAM: CT Angiography Chest With Intravenous Contrast CLINICAL HISTORY: PE, cp cough, smoker. TECHNIQUE: Axial computed tomographic angiography images of the chest with intravenous contrast. CTDI is 75.45 mGy and DLP is 1103.04 mGy-cm. Automated exposure control was utilized for the study. A dose lowering technique was utilized adhering to the principles of ALARA. MIP reconstructed images were created and reviewed. COMPARISON: CTA chest dated 12/14/2022 FINDINGS: Pulmonary arteries: There is no evidence for pulmonary embolism. Aorta: Atherosclerotic calcification of the aorta. No dissection or aneurysm. Lungs: No focal airspace consolidation identified. Interlobular septal thickening and mild peribronchial cuffing noted involving the lower lobes. There is a rounded noncalcified pulmonary nodule with somewhat radiating spiculated contours, stable in appearance and size when compared to the prior examination in the anterolateral right upper lobe, measuring 10 x 8 mm. This was reported is stable from the previous examination from June 2019. Pleural space: Unremarkable. No significant effusion. No pneumothorax. Heart: The cardiac chambers are prominent in size. Prominent coronary artery calcification. No pericardial effusion. Bones/joints: No acute fracture. No dislocation. Soft tissues: Unremarkable. Lymph nodes: The previously noted right supraclavicular lymphadenopathy is stable in appearance. The paratracheal and pericarinal lymphadenopathy noted previously is stable to minimally improved. IMPRESSION: 1. There is no evidence for pulmonary embolism. 2. No focal airspace consolidation identified. Interlobular septal thickening and mild peribronchial cuffing noted involving the lower lobes. This suggests a component of vascular congestion. Interstitial infection is also a diagnostic consideration. No pleural effusion or pneumothorax. 3. Right upper lobe pulmonary nodule, stable from the prior examination, which was reportedly stable from the June 2019 examination. No follow- up required. 4. The previously noted right suprageniculate lymphadenopathy is stable. The paratracheal and subcarinal lymph nodes are stable to mildly improved. 5. Stable cardiomegaly. No pericardial effusion. Electronically signed by: Castro Sanchez MD 08/30/23 22:23 PM Diagnostic Findings EKG as per my interpretation :Rate 90, NSR, normal axis, T wave abnormalities inferior leads
[2023-08-30] MEDS ORDERED: PROMETHAZINE HCL 6.25 MG in SODIUM CHLORIDE 0.9% 50 ML IV PRN (22:59)
[2023-08-30] MEDS ORDERED: CARBOHYDRATES FOR HYPOGLYCEMIA PO PRN (22:59)
[2023-08-30] MEDS ORDERED: GLUCAGON FOR INJ 1 MG VIAL SQ PRN (22:59)
[2023-08-30] MEDS ORDERED: GLUCOSE 10 TAB/TUBE PO PRN (22:59)
[2023-08-30] MEDS ORDERED: GLUCOSE 40% GEL 15 GM TUBE PO PRN (22:59)
[2023-08-30] MEDS ORDERED: DEXTROSE 50% 50 ML SYRINGE IV PRN (22:59)
[2023-08-31] MEDS ORDERED: ACETAMINOPHEN 325 MG TAB PO PRN ×2 (00:26→02:26)
[2023-08-31] MEDS: NICOTINE 7 MG/24 HR TDSY TD SCH (00:27)
[2023-08-31] MEDS: IPRATROPIUM BROMIDE NEB SOLN 0.02% 0.5MG/2.5ML VIAL INH SCH (00:35)
[2023-08-31] MEDS: LEVALBUTEROL 1.25 MG/3 ML NEB NEB SCH (00:35)
[2023-08-31] MEDS: INSULIN ASPART PER UNIT CHARGE SC SCH (00:38)
[2023-08-31] MEDS: LANTUS PER UNIT CHARGE SQ SCH ×2 (00:38→20:42)
[2023-08-31] MEDS: CLINDAMYCIN HCL 150 MG CAP PO ONE (00:40)
[2023-08-31] MEDS: FUROSEMIDE INJ 20 MG/2 ML VIAL IV ONE (00:41)
[2023-08-31] MEDS: MAGNESIUM SULFATE / D5W 1 GM/100 ML BAG IV SCH (00:50)
[2023-08-31] MEDS: BACLOFEN 10 MG TAB PO PRN (00:57)
[2023-08-31] MEDS: HYDROCODONE/ACETAMOPHEN 5/325MG TAB PO PRN (00:57)
[2023-08-31] MEDS: busPIRone 15 MG TAB PO SCH (02:00)
[2023-08-31] MEDS: GABAPENTIN 300 MG CAP PO SCH (02:00)
[2023-08-31 03:46] LABS: Hematocrit (blood only) 35.8 % (37.0-47.0); Hemoglobin 11.2 g/dl (12.0-16.0); Mean Corpuscular Hemoglobin 25.8 pg (25.0-34.0); Mean Corpuscular Hgb Conc 31.3 g/dL (32.0-36.0); Mean Corpuscular Volume 82.5 fL (80.0-100.0); Mean Platelet Volume 10.5 fL (9.4-12.4); Platelet Count 312 K/uL (130-400); RDW Coefficient of Variation 14.2 % (11.5-14.5); RDW Standard Deviation 41.5 fL (36.4-46.3); Red Blood Count 4.34 M/uL (4.20-5.40); White Blood Count 7.24 K/ul (4.8-10.8)
[2023-08-31 03:48] LABS: BUN Creatinine Ratio 20.7 (10-20); Creatinine Clr Calc Pharmacy 58.5 ml/min; Est GFR (African American) 81.7 ml/min; Est GFR (Non-African American) 70.5 ml/min; Magnesium 2.1 mg/dl (1.7-2.4)
[2023-08-31 04:02] LABS: Immature Granulocytes # (auto) 0.07 K/uL (0.01-0.20); Lymphocytes # (auto) 0.34 K/uL (1.20-3.40); Lymphocytes % (auto) 4.7 %; Monocytes # (auto) 0.08 K/uL (0.11-0.59); Monocytes % (auto) 1.1 %; Neutrophils # (auto) 6.75 K/uL (1.40-6.50); Neutrophils % (auto) 93.2 %; Polychromasia 1+
[2023-08-31] MEDS: LANTUS PER UNIT CHARGE SQ STA ×2 (04:37→04:51)
--- OUTSIDE RECORDS SUMMARY | 2023-08-31 06:16 | External Medical Summary | Summary of Care ---
Author Name Unknown Organization [facility] Address [address] [place] [address] Phone [phone] Care Team Providers Care Rough Rib Grader Name Role Phone Courtney Restrepo MD Primary Care Prov ider Encounter Details Date Type Department Care Team (Latest Contact Info) Description 08/25/2023 Medication Management [facility] [address] [place] [address] [facility] [address], [place] [id number] Referred for management of medication therapy* Allergies Active Allergy Reactions Criticality Noted Date Comments Diclofenac Rash 07/12/2013 Hydrocodone-Acetaminop hen 12/20/2018 Other reaction(s): Constipation Other Reaction(s): Constipation Sitagliptin Phosphate 08/30/2013 Rash - Blood Blister Metformin Hives 06/04/2022 Methadone Edema airway High 07/27/2018 Naproxen Edema Other,Itching,Rash 06/29/2019 Patient reports that after starting naproxen for rib pain, she developed a generalized itchy rash, red sores on her knuckles, and periorbital edema Nitroglycerin Hypotension 12/20/2018 Penicillins Nausea/vomiting 05/17/2007 Bath Hives 10/02/2018 Propoxyphene Edema face/lips/tongue,Hiv es 06/26/2009 documented as of this encounter (statuses as of 08/30/2023) Medications Medication Sig Dispensed Refills Start Date End Date Status busPIRone HCl 15 MG Oral Tablet (Buspar)Indications: Anxiety TAKE ONE TABLET TWICE DAILY 180 Tablet 1 10/15/2022 Active DULoxetine HCl 30 MG Oral Capsule Delayed Release Particles (Cymbalta)Indication s:Chronic midline thoracic back pain,Generalized anxiety disorder Take 1 Capsule by mouth in the morning and 1 Capsule before bedtime. 180 Capsule 2 10/15/2022 Active [employer] DelStaaff Lancets 30GIndications:Type 2 diabetes mellitus with hemoglobin A1c goal of less than 8.0% ([facility]) Use to test glucose daily. E11.9 100 Each 5 11/29/2022 Active LOOKCASTTouch Verio w/Device KitIndications:Type 2 diabetes mellitus with hemoglobin A1c goal of less than 8.0% ([facility]) Use to test glucose daily. E11.9 1 Kit 11/29/2022 Active Trelegy Ellipta 100-62.5-25 MCG/ACT Aerosol Powder Breath ActivatedIndications :COPD, group C, by GOLD 2017 classification ([facility]) Inhale 1 puff as directed once a day 1 inhalation daily. Rinse mouth after every use. 60 Blister Dosing Unit 5 11/29/2022 Active NovoLOG FlexPen 100 UNIT/ML Subcutaneous Solution Pen-injector (insulin aspart)Indications:T ype 2 diabetes mellitus with hemoglobin A1c goal of less than 8.0% ([facility]) Units as per sliding scale 3 mL 3 02/04/2023 Active Additional Information Patient taking differently: Units as per sliding scale 4-6 units at lunch, Informant: Patient, Reported on 08/25/2023 Insulin Glargine Solostar 100 UNIT/ML Subcutaneous Solution Pen-injector (Lantus SoloStar)Indications :Type 2 diabetes mellitus with hemoglobin A1c goal of less than 8.0% (HCC) Inject 10 Units under the skin every night at bedtime. Lantus SoloStar Brand Necessary 3 mL 3 02/04/2023 Active Multivitamin Adult (Minerals) Oral Tablet Take 1 Tablet by mouth in the morning. Active Vitamin D 125 MCG (5000 UT) Oral Capsule Take 1 Capful by mouth in the morning and 1 Capful before bedtime. Active Align Extra Strength Oral Capsule Take 1 Capsule by mouth every evening. Active OneTouch Verio In Vitro Strip (Glucose Blood)Indications:Ty pe 2 diabetes mellitus with hemoglobin A1c goal of less than 8.0% ([facility]) Test glucose once daily E11.9 100 Strip 5 02/22/2023 Active Calcium Carbonate 600 MG Oral Tablet (Calcium 600) Take 1 Tablet by mouth 2 times a day with morning and evening meals. (Not TUMS) Active Polyethylene Glycol 3350 17 GM/SCOOP Oral Powder (MiraLax)Indications :Other constipation Dissolve one heaping tablespoon in 8 ounces of water or juice - one dose per day as needed for severe constipation 225 g 2 05/23/2023 Active Aspirin 81 MG Oral Tablet Chewable Take 1 Tablet by mouth in the morning. 30 Tablet 1 06/14/2023 Active Pantoprazole Sodium 40 MG Oral Tablet Delayed Release (Protonix)Indication s:Iron deficiency anemia due to chronic blood loss,Chronic superficial gastritis with bleeding TAKE 1 TABLET BY MOUTH 30 MINUTES BEFORE FIRST MEAL AND 1 TABLET BEFORE BEDTIME DO NOT CRUSH, SPLIT, OR CHEW 180 Tablet 3 06/22/2023 Active Sennosides-Docusate Sodium 8.6-50 MG Oral Tablet (Senokot-S) Take 2 Tablets by mouth in the morning and 2 Tablets before bedtime. 60 Tablet 1 06/30/2023 Active Sucralfate 1 GM Oral Tablet (Carafate) Take 1 Tablet by mouth 4 times a day before meals and at bedtime. 120 Tablet 5 07/18/2023 Active Loratadine 10 MG Oral Tablet (Claritin) Take 1 Tablet by mouth in the morning. 90 Tablet 3 07/22/2023 Active Albuterol Sulfate HFA 108 (90 Base) MCG/ACT Inhalation Aerosol SolutionIndications: Bacterial pneumonia Use two puffs four times a day as needed for shortness of breath/wheezing 18 g 3 07/22/2023 Active Gabapentin 300 MG Oral Capsule (Neurontin) Take 1 Capsule by mouth in the morning and 1 Capsule at noon and 1 Capsule before bedtime. 90 Capsule 3 07/25/2023 Active Furosemide 20 MG Oral Tablet (Lasix)Indications:A therosclerosis of cheesh-na artery of left lower extremity with rest pain (HCC),DM type 2 with diabetic peripheral neuropathy (HCC) One daily 30 Tablet 5 07/28/2023 Active Ipratropium-Albutero l 0.5-2.5 (3) MG/3ML Inhalation Solution (Duoneb) Inhale 3 mL by mouth every 4 hours as needed for Shortness of Breath. 01/31/2023 Active Clopidogrel Bisulfate 75 MG Oral Tablet (pLAVix)Indications: Asymptomatic bilateral carotid artery stenosis TAKE 1 TABLET BY MOUTH EVERY MORNING 90 Tablet 3 08/05/2023 Active HYDROcodone-Acetamin ophen 5-325 MG Oral TabletIndications:S/ P AKA (above knee amputation), left (HCC) Take 1 Tablet by mouth every 6 hours as needed for Pain, Mild or Pain, Severe. 60 Tablet 08/09/2023 Active Atorvastatin Calcium 40 MG Oral Tablet (Lipitor) Take 1 Tablet by mouth in the morning. Active Famotidine 20 MG Oral Tablet (Pepcid) Take 1 Tablet by mouth in the morning. 07/28/2023 Active Baclofen 5 MG Oral Tablet (Lioresal) Take 1 Tablet by mouth in the morning and 1 Tablet at noon and 1 Tablet before bedtime. As needed for muscle spasm. 30 Tablet 08/24/2023 Active documented as of this encounter (statuses as of 08/30/2023) Active Problems Problem Noted Date Diagnosed Date Ischemic rest pain of lower extremity 07/14/2023 Ulcer of right foot, limited to breakdown of ski n 07/14/2023 Dependent rubor 07/14/2023 Atherosclerosis of cheesh-na artery of extremity Pre-ulcerative corn or callous 07/12/2023 Status post below-knee amputation of left lower extremity 06/29/2023 S/P AKA (above knee amputation), left 06/07/2023 Pathological fracture of millie tebra due to osteoporosis with routine healing, subsequent encounter 01/16/2023 Shock 01/08/2023 Lactic acidosis 01/08/2023 Transaminitis 01/08/2023 Encephalopathy acute 01/08/2023 History of cardiac arrest 12/13/2022 Overview: Per Progress Note on 11/23/22 "Cardiac arrest 11/07" Wound drainage 11/04/2022 S/P femoral-femoral bypass surgery 11/04/2022 Hemiplegia and hemiparesis f ollowing cerebral infarction affecting left non-dominant side 05/18/2022 Type 2 diabetes mellitus with peripheral artery disease 04/20/2022 Chronic ischemic heart disease 03/26/2022 Advanced directives, counseling/discussion 03/26 COPD, group D, by GOLD 2017 classification 02/22 Overview: Per COPD GOLD Classification Mesenteric ischemia, chronic 01/27/2022 Recurrent major depressive disorder, in partial remission 05/11/2021 Non-proliferative diabetic retinopathy, both eye s 11/27/2020 Overview: Retinopathy report - Noted 12/26/2019 Controlled substance agreement signed 04/09/2020 Major depressive disorder, recurrent, unspecifie d 12/07/2019 Superior mesenteric artery stenosis 04/25/2019 Celiac artery stenosis 04/25/2019 Centrilobular emphysema 04/11/2019 Overview: In Check dial performed to assess inhaler technique: 04/11/19. Name of inhalers Albuterol and Flovent Pass: Yes at 60L/min and Anoro Ellipt Pass: Yes at 45L/min. Encourage to take slow deep breaths, use aero chamber, and rinse after steroid. Test performed by [facility] [employer] Old CA (myocardial infarction) 02/21/2019 Bilateral carotid artery stenosis 02/21/2019 DM type 2 with diabetic peripheral neuropathy Right hand tendonitis 02/21/2019 Generalized arthritis 02/21/2019 Hand arthritis 02/21/2019 Moderate mitral regurgitation 02/13/2019 Gastrointestinal hemorrhage with melena 02/08/20 19 Lung nodules 02/07/2019 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 01/29/2019 Chronic superficial gastritis with bleeding 01/12 PAD (peripheral artery disease) 01/22/2019 Iron deficiency anemia due to chronic blood loss 01/22/2019 Senile osteoporosis 07/03/2018 Reactive depression 11/17/2017 Atherosclerosis of cheesh-na co ronary artery of cheesh-na heart without angina pectoris 07/22/2015 Overview: Single stent placed 1994 Type 2 diabetes mellitus wit h hemoglobin A1c goal of less than 8.0% 07/11/2012 Overview: ICD-10 update of inactive term ADVANCE DIRECTIVE INFORMATION 10/23/2009 Overview: Yes, Patient instructed to provide copy of advance directive for provider to review and to be scanned into Electronic Medical Record Cerebrovascular disease, arteriosclerotic, post- stroke 08/29/2008 Overview: Modified per CVA protocol #8. Pt with hx of embolic stroke. L hemiplegia Moderate persistent asthma without complication Overview: In Check dial performed to assess inhaler technique: 04/11/19. Name of inhalers Albuterol and Flovent Pass: Yes at 60L/min and Anoro Ellipt Pass: Yes at 45L/min. Encourage to take slow deep breaths, use aero chamber, and rinse after steroid. Test performed by [facility] [employer] GENERAL OSTEOARTHROSIS BMI 32.0-32.9,adult Tobacco use disorder Hyperlipidemia with target LDL less than 70 Overview: ICD-10 update of inactive term RSD upper limb Overview: left arm Generalized anxiety disorder documented as of this encounter (statuses as of 08/30/2023) Resolved Problems Problem Noted Date Diagnosed Date Resolved Date Hepatorenal syndrome 07/12/2023 024 Other disorders of phosphorus metabolism 02/02/2023 07/12/2023 PRAKASH (acute kidney injury) 01/08/2023 Systolic congestive heart failure 11/29/2022 12/10/2022 Hypertensive heart disease w ith acute on chronic diastolic congestive heart failure 11/29/2022 06/14/2023 Pneumonia due to infectious organism 11/04/2022 01/19/2023 Cardiac arrest 11/04/2022 12/13/2022 Overview: history Acute respiratory failure with hypoxia 11/04/2022 11/09/2022 COPD, group C, by GOLD 2017 classification 06/23/2020 02/25/2022 Overview: Per COPD GOLD Classification COPD, group B, by GOLD 2017 classification 05/21/2019 06/26/2020 Overview: Per COPD GOLD Classification Polyneuropathy in other dise ases classified elsewhere 04/25/2019 08/09/2023 Fracture of three ribs on left side 02/25/2015 11/24/2016 Overview: left 3,4,5 Carotid artery stenosis with cerebral infarction over 8 weeks ago 08/08/2014 05/05/2017 Depression 09/01/2012 11/17/2017 Spasm of muscle 11/05/2010 05/05/2017 Benign neoplasm of colon 01/24/2009 Overview: 3 mm tubular adenoma in sigmoid History of colonoscopy with polypectomy 01/12/2009 07/03/2018 Overview: adenomatous polyp, f/u colonoscopy in 5 yrs Type 2 diabetes mellitus wit h hemoglobin A1c goal of less than 7.0% 01/09/2009 11/10/2011 Overview: Per Diabetes Taxonomy. ICD-10 update of inactive term Type 2 diabetes mellitus wit h hemoglobin A1c goal of less than 7.0% 01/09/2009 07/11/2012 Overview: Per Diabetes Taxonomy. ICD-10 update of inactive term Cerebrovascular disease, art eriosclerotic, post-stroke 08/29/2008 09/10/2008 Overview: Modified per CVA protocol #8. Pt with hx of cerebral artery occlusion. Carotid Stenosis, infarct w/in 8 wks 08/20/2008 08/08/2014 Intracerebral hemorrhage 07/03/200804/2016 Type 2 diabetes mellitus wit h hemoglobin A1c goal of less than 7.0% 07/03/2008 01/09/2009 Overview: Per Diabetes Taxonomy. ICD-10 update of inactive term Stroke, embolic, within last 8 weeks 07/03/2008 08/29/2008 Overview: Modified per CVA protocol #8. Pt with hx of embolic stroke. Sequela, post-stroke 07/03/2008 017 Hemiplegia affecting nondominant side 07/03/2008 11/24/2016 Chronic constipation 07/03/2008 018 Stroke, acute, within 8 weeks 05/30/2008 08/29/2008 Overview: Modified per CVA protocol #8. Pt with hx of cerebral artery occlusion. Ulnar nerve lesion 03/29/2003 8 Type 2 diabetes mellitus wit h hemoglobin A1c goal of less than 7.0% 01/09/2009 Overview: Per Diabetes Taxonomy. ICD-10 update of inactive term Hidradenitis 05/30/2012 [facility] ISCHEMIC HRT DIS NOS Coronary atherosclerosis of cheesh-na coronary artery 11/24/2016 Tobacco abuse 11/17/2017 documented as of this encounter (statuses as of 08/30/2023) Immunizations Name Administration Dates Next Due COVID-19 mRNA, LNP-s, No Pre serve, 2-Dose Series (Moderna) 08/12/2020,07/15/2020 COVID-19, mRNA, LNP-s, PF, B ooster, 100mcg/0.5mg (Moderna) 07/14/2021 Pneumococcal Conjugate Vacc, 13 Valent (Prevnar) 08/08/2014 Pneumococcal Polysaccharide PPV23 (Pneumovax) 10/27/2015,05/30/2008,04/03/2008(Defer red: Patient Refused) Season Influenza, Quad, PF, Adjuvanted, 65+ Yrs, IM (FLUAD) 11/17/2021,11/30/2019 Seasonal Influenza, PF, 6 M & above, IM , (FluLaval or Fluzone) 12/01/2017 Seasonal Influenza, Quadriva lent Hd (Fluzone Hd) 01/23/2023(Deferred: Patient Refused) Seasonal Influenza, Quadriva lent, No Preserve, IM 11/24/2016,12/17/2015,03/13/2015 Seasonal Influenza, Split, I IV3, With Preserve, Inj 12/11/2012,11/23/2011,12/18/2010,12/24,01/07/2009,04/03/2008(Deferred: Patient Refused) Seasonal Influenza, Trivalen t, Adjuvanted, 65+ yrs 12/27/2018 TDAP (age 10 and older)(Boostrix) 10/17/2022 TDAP, Age 7 and older, IM (Adacel) 07/27/2010 documented as of this encounter Social History Tobacco Use Types Packs/Day Years Used Date Smoking Tobacco: Every Day Cigarettes Smokeless Tobacco: Never Comments:08/10/2023 1 pack a day declined pamphlet Alcohol Use Standard Drinks/Week Comments No 0 (1 standard drink = 0.6 oz pur e alcohol) PHQ-2 Answer Date Recorded PHQ Adult Total Score 2 06/22/2023 Hunger Vital Sign Answer Date Recorded Within the past 12 months, y ou worried that your food would run out before you got the money to buy more. Never true 07/01/19 24 Within the past 12 months, t he food you bought just didn't last and you didn't have money to get more. Never true 07/01/2023 Childcare Answer Date Recorded Do you feel overwhelmed with taking care of a child, family member or friend? No 07/01/2023 Does your family need help f inding childcare? (Household - for ages 0-17 years) Not on file 07/01/2023 Clothing Answer Date Recorded Have you been unable to get clothing when it was really needed? No 07/01/2023 Is your family able to get c lothes or diapers when needed? (Household - for ages 0-17 years) Not on file 07/01/2023 Personal Safety Answer Date Recorded Do you feel unsafe or have concerns for your saf ety? No 07/01/2023 Do you have concerns for you r family's safety? (Household - for ages 0-17 years) Not on file 07/01/2023 Utilities Answer Date Recorded Do you have trouble paying y our heating, water, or electric bill? No 07/01/2023 Is your family able to pay t he heat, water, or electric bill? (Household - for ages 0-17 years) Not on file 07/01/2023 Does your family have access to good internet? (Household - for ages 0-17 years) Not on file 07/01/2023 Employment Status Answer Date Recorded Are you unemployed or without regular income? No 07/01/2023 Does the household have a re gular source of income? (Household - for ages 0-17 years) Not on file 07/01/2023 Social Connections Answer Date Recorded How often do you feel lonely or isolated from th ose around you? Never 07/01/2023 Financial Resource Strain Answer Date R ecorded Do you have any trouble payi ng for your medications, or do you think you might in the future? No 07/01/2023 Does your family have troubl e paying for medicine? (Household - for ages 0-17 years) Not on file 07/01/2023 Transportation Needs Answer Date Record ed READ ONLY Do you have troubl e getting a ride to medical visits or work? Never True 07/01/2023 Does your family have a hard time getting a ride to doctors visits? (Household - for ages 0-17 years) Not on file 07/01/2023 Has lack of transportation k ept you from medical appointments, meetings, work, or from getting things needed for daily living? Check all that apply. (Adult - for ages 18 years and over) Not on file 07/01/2023 Do you (or your family) have trouble finding or paying for a ride (transportation)? (Household - for ages 0-17 years) Not on file 07/01/2023 Housing Stability Answer Date Recorded Do you currently live in a s helter or have no steady place to sleep at night? No 07/01/2023 READ ONLY Do you think you a re at risk of becoming homeless? No 07/01/2023 Does your family worry about paying for your home or becoming homeless? (Household - for ages 0-17 years) Not on file 0 07/01/2023 Are you homeless or worried that you might be in the future? (Adult - for ages 18 years and over) Not on file Are you (or your family) veronica eless or worried that you might be in the future? (Household - for ages 0-17 years) Not on file Food Insecurity Answer Date Recorded Do you need food for this week? No 07/01/2023 Are you able to get enough f ood for your family? (Household - for ages 0-17 years) Not on file 07/01/2023 Does your family need food t his week? (Household - for ages 0-17 years) Not on file 07/01/2023 Do you always have enough fo od for your family? (Household - for ages 0-17 years) Not on file 07/01/2023 Sex and Gender Information Value Date Recorded Sex Assigned at Female 06/16/2020 2:22 PM EDT Gender Identity Female 06/16/2020 2:22 PM EDT Sexual Orientation Straight 06/16/2020 2: 22 PM EDT Job Start Date Occupation Industry Not on file Not on file Not on file documented as of this encounter Functional Status Functional Status Response Date of Assess ment Are you deaf or do you have serious difficulty hearing? No 06/07/2023 Are you blind or do you have serious difficulty seeing, even when wearing glasses? No 06/07/2023 Do you have serious difficul ty walking or climbing stairs? (5 years old or older) Yes 06/07/2023 Do you have difficulty dress ing or bathing? (5 years old or older) Yes-pt states sometimes 06/07/2023 Because of a physical, menta l, or emotional condition, do you have difficulty doing errands alone such as visiting a doctor s office or shopping? (15 years old or older) Yes-Grandson assists 06/07/2023 Cognitive Status Response Date of Assessm ent Because of a physical, menta l, or emotional condition, do you have serious difficulty concentrating, remembering, or making decisions? (5 years old or older) No 06/07/2023 documented as of this encounter Progress Notes * Carlos Packer, [facility] - 08/30/2023 11:56 AM EDT Carlotta Khan is a 73 year old female. Objective: Review of patient's allergies indicates: Allergen Reactions Methadone Edema airway Diclofenac Rash Hydrocodone-Acetaminophen Other reaction(s): Constipation Other Reaction(s): Constipation Januvia [Sitagliptin Phosphate] Rash - Blood Blister Metformin Hives Naproxen Edema Other, Itching and Rash Patient reports that after starting naproxen for rib pain, she developed a generalized itchy rash, red sores on her knuckles, and periorbital edema Nitroglycerin Hypotension Penicillins Nausea/vomiting Bath Hives Propoxyphene Edema face/lips/tongue and Hives Current Outpatient Medications - WARNING: List may be incomplete due to filtering Medication Sig Dispense Refill Baclofen 5 MG Oral Tablet (Lioresal) Take 1 Tablet by mouth in the morning and 1 Tablet at noon and1 Tablet before bedtime. As needed for muscle spasm. 30 Tablet 0 Famotidine 20 MG Oral Tablet (Pepcid) Take 1 Tablet by mouth in the morning. Atorvastatin Calcium 40 MG Oral Tablet (Lipitor) Take 1 Tablet by mouth in the morning. HYDROcodone-Acetaminophen 5-325 MG Oral Tablet Take 1 Tablet by mouth every 6 hours as needed for Pain, Mild or Pain, Severe. 60 Tablet 0 Clopidogrel Bisulfate 75 MG Oral Tablet (pLAVix) TAKE 1 TABLET BY MOUTH EVERY MORNING 90 Tablet 3 Ipratropium-Albuterol 0.5-2.5 (3) MG/3ML Inhalation Solution (Duoneb) Inhale 3 mL by mouth every 4 hours as needed for Shortness of Breath. Furosemide 20 MG Oral Tablet (Lasix) One daily 30 Tablet 5 Gabapentin 300 MG Oral Capsule (Neurontin) Take 1 Capsule by mouth in the morning and 1 Capsule at noon and 1 Capsule before bedtime. 90 Capsule 3 Albuterol Sulfate HFA 108 (90 Base) MCG/ACT Inhalation Aerosol Solution Use two puffs four times a day as needed for shortness of breath/wheezing 18 g 3 Loratadine 10 MG Oral Tablet (Claritin) Take 1 Tablet by mouth in the morning. 90 Tablet 3 Sucralfate 1 GM Oral Tablet (Carafate) Take 1 Tablet by mouth 4 times a day before meals and at bedtime. 120 Tablet 5 Sennosides-Docusate Sodium 8.6-50 MG Oral Tablet (Senokot-S) Take 2 Tablets by mouth in the morningand 2 Tablets before bedtime. 60 Tablet 1 Pantoprazole Sodium 40 MG Oral Tablet Delayed Release (Protonix) TAKE 1 TABLET BY MOUTH 30 MINUTES BEFORE FIRST MEAL AND 1 TABLET BEFORE BEDTIME DO NOT CRUSH, SPLIT, OR CHEW 180 Tablet 3 Aspirin 81 MG Oral Tablet Chewable Take 1 Tablet by mouth in the morning. 30 Tablet 1 Polyethylene Glycol 3350 17 GM/SCOOP Oral Powder (MiraLax) Dissolve one heaping tablespoon in 8 ounces of water or juice - one dose per day as needed for severe constipation 225 g 2 Calcium Carbonate 600 MG Oral Tablet (Calcium 600) Take 1 Tablet by mouth 2 times a day with morning and evening meals. (Not TUMS) Align Extra Strength Oral Capsule Take 1 Capsule by mouth every evening. Multivitamin Adult (Minerals) Oral Tablet Take 1 Tablet by mouth in the morning. Vitamin D 125 MCG (5000 UT) Oral Capsule Take 1 Capful by mouth in the morning and 1 Capful before bedtime. Insulin Glargine Solostar 100 UNIT/ML Subcutaneous Solution Pen-injector (Lantus SoloStar) Inject 10 Units under the skin every night at bedtime. Lantus SoloStar Brand Necessary 3 mL 3 NovoLOG FlexPen 100 UNIT/ML Subcutaneous Solution Pen-injector (insulin aspart) Units as per sliding scale (Patient taking differently: Units as per sliding scale 4-6 units at lunch) 3 mL 3 Trelegy Ellipta 100-62.5-25 MCG/ACT Aerosol Powder Breath Activated Inhale 1 puff as directed once a day 1 inhalation daily. Rinse mouth after every use. 60 Blister Dosing Unit 5 busPIRone HCl 15 MG Oral Tablet (Buspar) TAKE ONE TABLET TWICE DAILY 180 Tablet 1 DULoxetine HCl 30 MG Oral Capsule Delayed Release Particles (Cymbalta) Take 1 Capsule by mouth in the morning and 1 Capsule before bedtime. 180 Capsule 2 OneTouch Verio In Vitro Strip (Glucose Blood) Test glucose once daily E11.9 100 Strip 5 OneTouch Delica Lancets 30G Use to test glucose daily. E11.9 100 Each 5 OneTouch Verio w/Device Kit Use to test glucose daily. E11.9 1 Kit 0 Immunization History Administered Date(s) Administered COVID-19 mRNA, LNP-s, No Preserve, 2-Dose Series (Moderna) 07/15/2020, 08/12/2020 COVID-19, mRNA, LNP-s, PF, Booster, 100mcg/0.5mg (Moderna) 07/14/2021 Ketorolac Tromethamin Inj 08/19/2008, 08/20/2008 Pneumococcal Conjugate Vacc, 13 Valent (Prevnar) 08/08/2014 Pneumococcal Polysaccharide PPV23 (Pneumovax) 05/30/2008, 10/27/2015 Season Influenza, Quad, PF, Adjuvanted, 65+ Yrs, IM (FLUAD) 11/30/2019, 11/17/2021 Seasonal Influenza, PF, 6 M & above, IM , (FluLaval or Fluzone) 12/01/2017 Seasonal Influenza, Quadrivalent, No Preserve, IM 03/13/2015, 12/17/2015, 11/24/2016 Seasonal Influenza, Split, IIV3, With Preserve, Inj 01/07/2009, 12/24/2009, 12/18/2010, 11/23/2011,12/11/2012 Seasonal Influenza, Trivalent, Adjuvanted, 65+ yrs 12/27/2018 TDAP (age 10 and older)(Boostrix) 10/17/2022 TDAP, Age 7 and older, IM (Adacel) 07/27/2010 Triamcinolone Acetonide 01/09/2008 TMR Interventions TMR Patient Education - Safe Medication Use (Opioid Therapy): HYDROCO/APAP TAB 5-325MG;OXYCODONE TAB 5MG Incomplete Encounter MTPs No medication therapy recommendations to display Complete Encounter MTPs Referred for management of medication therapy Rationale: Patient Education - Needs Education - Safety Recommendation: Provide Education Status: Patient Agreed Note: Member is aware of side effects and appropriate use of current opioid Assessment & Plan Indication, effectiveness, safety and convenience of her medications were reviewed today. The patient's medical conditions were assessed, evaluated, and deemed meeting goals of drug therapy, with thefollowing exceptions. Additional Notes: Member states that she has an allergy to her insulin. She stated that she breaks out in hives, and her blood sugar goes up after taking her insulin. She was told to continue taking her insulin despite her symptoms. She has an appt in August with the [facility] Diabetes pharmacist Summary Time Spent: 1-15 min Supervising pharmacist who provided the service: Carlos Packer PharmD Takeaway Information Who was the recipient of the CMR service: beneficiary Language Template for the Patient Takeaway: Croatian I attest that I have reviewed and updated the patient's conditions, allergies, and medications to the best of my ability. Patient provided medication list gathered by: Eyad Mckenzie RPh 08/30/2023, 11:56 AM documented in this encounter Miscellaneous Notes * [facility] Personal Medication List - Carlos Packer RPh - 08/30/2023 11:45 AM EDT Medication How I take it Why I use it Prescriber Albuterol Sulfate HFA 108 (90 Base) MCG/ACT Inhalation Aerosol Solution Use two puffs four times a day as needed Shortness of Breath Christie Harrison PA-C Align Extra Strength Oral Capsule Take 1 Capsule by mouth every evening. General Health Self Aspirin 81 MG Oral Tablet Chewable Take 1 Tablet by mouth in the morning. Heart Health Renetta Partida PA-C Atorvastatin Calcium 40 MG Oral Tablet (Lipitor) Take 1 Tablet by mouth in the morning. High Cholesterol Courtney Morejon MD Baclofen 5 MG Oral Tablet (Lioresal) Take 1 Tablet by mouth in the morning and 1 Tablet at noon and1 Tablet before bedtime as needed Muscle Spasm Courtney Morejon MD busPIRone HCl 15 MG Oral Tablet (Buspar) TAKE ONE TABLET TWICE DAILY Anxiety Courtney Morejon MD Calcium Carbonate 600 MG Oral Tablet (Calcium 600) Take 1 Tablet by mouth 2 times a day with morning and evening meals General Health Courtney Morejon MD Clopidogrel Bisulfate 75 MG Oral Tablet (pLAVix) TAKE 1 TABLET BY MOUTH EVERY MORNING Blood Clot Prevention Courtney Morejon MD DULoxetine HCl 30 MG Oral Capsule Delayed Release Particles (Cymbalta) Take 1 Capsule by mouth in the morning and 1 Capsule before bedtime. Mood/Nerve Pain Courtney Morejon MD Famotidine 20 MG Oral Tablet (Pepcid) Take 1 Tablet by mouth in the morning. Acid Reflux Courtney Morejon MD Furosemide 20 MG Oral Tablet (Lasix) Take 1 tablet by mouth once daily Fluid Retention Salvatore Adams MD Gabapentin 300 MG Oral Capsule (Neurontin) Take 1 Capsule by mouth in the morning and 1 Capsule at noon and 1 Capsule before bedtime. Nerve Pain Courtney Morejon MD HYDROcodone-Acetaminophen 5-325 MG Oral Tablet Take 1 Tablet by mouth every 6 hours as needed Pain Courtney Morejon MD Insulin Glargine Solostar 100 UNIT/ML Subcutaneous Solution Pen-injector (Lantus SoloStar) Inject 10 Units under the skin every night at bedtime. Diabetes Rosalio Benson MD Ipratropium-Albuterol 0.5-2.5 (3) MG/3ML Inhalation Solution (Duoneb) Inhale 3 mL by mouth every 4 hours as needed Shortness of Breath Courtney Morejon MD Loratadine 10 MG Oral Tablet (Claritin) Take 1 Tablet by mouth in the morning. Allergy Courtney Morejon MD Multivitamin Adult (Minerals) Oral Tablet Take 1 Tablet by mouth in the morning. General Health Self NovoLOG FlexPen 100 UNIT/ML Subcutaneous Solution Pen-injector (insulin aspart) Inject 4 to 6 unitsunder the skin with lunch according to sliding scale Diabetes Rosalio Benson MD Pantoprazole Sodium 40 MG Oral Tablet Delayed Release (Protonix) TAKE 1 TABLET BY MOUTH 30 MINUTES BEFORE FIRST MEAL AND 1 TABLET BEFORE BEDTIME DO NOT CRUSH, SPLIT, OR CHEW Acid Reflux Courtney Morejon MD Polyethylene Glycol 3350 17 GM/SCOOP Oral Powder (MiraLax) Dissolve one heaping tablespoon in 8 ounces of water or juice and drink once daily Constipation Courtney Morejon MD Sennosides-Docusate Sodium 8.6-50 MG Oral Tablet (Senokot-S) Take 2 Tablets by mouth in the morningand 2 Tablets before bedtime. Constipation Courtney Morejon MD Sucralfate 1 GM Oral Tablet (Carafate) Take 1 Tablet by mouth 4 times a day before meals and at bedtime. Stomach Courtney Morejon MD Trelegy Ellipta 100-62.5-25 MCG/ACT Aerosol Powder Breath Activated Inhale 1 puff as directed once a day 1 inhalation daily. COPD Pia Agarwal PA-C Vitamin D 125 MCG (5000 UT) Oral Capsule Take 1 Capful by mouth in the morning and 1 Capful before bedtime. General Health Self * [facility] To-Do-List - Carlos Packer RPh - 08/30/2023 11:41 AM EDT Images from the original note were not included. What we talked about: What I should do: The importance of taking your medication as prescribed Your medicine works best when taken as prescribed. It can be hard to remember to take daily medications. Consider making it a part of your daily routine. Pair taking your medication with something you do every day, like brushing your teeth or eating a meal. Consider setting daily alarms to help remind yourself when it is time to take your medicine. Using a pill box can also help you organize your medicines. Pill boxes allow you to fill each day slot with your daily medicine and help you track when your next dose is due. What we talked about: What I should do: Pain Management THIS MEDICATION IS USED TO TREAT PAIN. DO NOT EXCEED THE AMOUNT PRESCRIBED IF THIS MEDICATION START TO FEEL LIKE IT NO LONGER IS PROVIDING PAIN RELIEF. SPEAK TO YOUR DOCTOR IN [place] ANY CHANGES IN THE USE OF THIS MEDICATION. TAKING TOO MUCH OF THIS MEDICATION CAN LEAD TO DEPENDENCY AND/OR ACCIDENTAL OVERDOSE. This medication may cause side effects like trouble breathing. Reminders for safe storage and disposal Share tips for keeping opioid medications safely stored: Store out of plain sight Keep out of the reach of children and pets Consider a lock box Dispose of unused medication properly o Take unused medication to the local police station or disposal site; check [place]gov for a site near you o Reference disposal instructions at fda.gov What we talked about: What I should do: Diabetes Care PLEASE MONITOR FOR SIGNS AND SYMPTOMS OF HYPOGLYCEMIA AND HYPERGLYCEMIA. SYMPTOMS OF HYPOGLYCEMIA OR TOO LOW BLOOD SUGAR CAN INCLUDE WEAKNESS, SWEATING, AND HEART PALPITATIONS.MAKE SUREYOU HAVE A PLAN IN PLACE TO REVERSE LOW BLOOD SUGAR, WHICH MAY INCLUDE KEEPING GLUCOSE TABLETS OR LIQUID ON HAND. YOU CAN ALSO KEEP A SUGARY DRINK AVAILABLE, SUCH ORANGE JUICE, IN CASE OF AN EMERGENCY. IF BLOOD SUGAR CAN NOT BE RAISED TO ACCEPTABLE LEVELS, CONTACT EMERGENCY SERVICES IMMEDIATELY.SYMPTOMS OF HYPERGLYCEMIA OR TOO HIGH BLOOD SUGAR CAN INCLUDE INCREASE IN URINATION, LETHARGY OR TIREDNESS AND INCREASES IN THIRST. PLEASE CONTACT YOUR DOCTOR WITH ANY ISSUES THAT FALL OUTSIDE OF YOUR PRESCRIBED DIABETIC PLAN AND OUTCOMES. IT IS RECOMMENDED FOR PATIENTS WITH DIABETES TO HAVE AN ANNUAL EYE AND FOOT EXAM TO HELP MONITOR FOR COMPLICATIONS ASSOCIATED WITH DIABETES IN THESE AREAS. THEFOOT AND EYES ARE PRONE TO DIABETES COMPLICATIONS WHICH CAN INCLUDE BLINDNESS AND DECREASE CIRCULATION IN LOWER EXTREMITIES WHICH CAN LEAD TO NEGATIVE OUTCOMES SUCH AMPUTATION. Follow up with your pharmacist at the [facility] clinic for diabetes. What we talked about: What I should do: PER OUR CONVERSATION AND THE CURRENT CDC RECOMMENDATIONS AND GUIDELINES YOU MAY NEED THE FOLLOWING VACCINATIONS: RSV: 1 DOSE THESE VACCINES CAN BE OBTAINED AT YOUR LOCAL PHARMACY FOR ZERO COPAY. What we talked about: What I should do: Trelegy IS USED A CONTROLLER MEDICATION TO PREVENT ASTHMA ATTACKS. SIDE AFFECTS CAN INCLUDE, BUTNOT LIMITED TO, HEADACHE, CHEST. PAIN, PALPITATIONS, AND ORAL THRUSH (YEAST INFECTION). PER OUR CONVERSATION, IT IS RECOMMENDED THAT YOU RINSE YOUR MOUTH AFTER EACH USE TO PREVENT POTENTIAL ORAL THRUSH DUE TO THE USE OF THIS MEDICATION. FOLLOW UP WITH YOUR DOCTOR WITH ANY QUESTIONS OR CONCERNS REGARDING THIS MEDICATION. Continue to take this medication every day regardless of how you feel. Sometimes it may feel as though you do not need to take it, but continue to use this medication as prescribed as better outcomesfor your disease have been observed while using this medication daily. documented in this encounter Plan of Treatment Upcoming Encounters Date Type Department Care Team (Latest Contact Info) Description 08/30/2023 4:20 PM EDT Office Visit Family [address] [phone] Eben Obregon CRNP [address] [place] [address] [place] [address] 09/07/2023 1:10 PM EDT Office Visit Pharmacy, [address] [place] [address] [place] [address] 09/27/2023 9:40 AM EDT Office Visit [address] [place] [phone] Courtney Restrepo MD [address] [place] [address] [place] [address] 10/10/2023 4:00 PM EDT Office Visit Nephrology, [facility] [address] [place] [address] Charla Potter MD [address] [facility] [place] [address] 10/12/2023 11:00 AM EDT Office Visit Cardiology, [facility] [address] [place] [address] Frantz Herrera MD [address] [place] [facility] [address] 12/07/2023 9:20 AM EDT Office [address] [phone] Courtney Restrepo MD [address] [place] [address] [place] [address] 01/17/2024 10:00 AM EST Hospital Encounter ENDO OSSC, Endoscopy Room [facility] [address] [place] [phone] Cassandra Hart MD [address] [place] [address] 01/17/2024 10:00 AM EST - 01/17/2024 10:30 AM EST Surgery ENDO OSS[facility], Endoscopy Room [facility] [address] [place] [phone] Cassandra Hart MD [address] [place] [address] ESOPHAGOGASTRODUODENOSCOPY (EGD), FLEXIBLE, TRANSORAL, DIAGNOSTIC 01/25/2024 10:30 AM EST [facility] [address] [place] [address] 01/25/2024 11:30 AM EST Imaging [facility] Lab[facility] [address] [facility] [place] [address] 02/01/2024 11:30 AM EST Office Visit Vascular Surgery, [facility] [address] [facility] [place] [address] Nnamdi King MD [address] [facility] [place] [address] 02/08/2024 11:00 AM EST Imaging Radiology, [facility] [address] [place] [address] 02/17/2024 10:00 AM EST Office Visit Rheumatology [address] [place] [phone] Marshall Romano MD [facility] [place] [address] Scheduled Procedures Name Priority Associated Diagnoses Date/Ti me ESOPHAGOGASTRODUODENOSCOPY ( EGD), FLEXIBLE, TRANSORAL, DIAGNOSTIC 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 01/17/2024 10:00 AM EST ESOPHAGOGASTRODUODENOSCOPY ( EGD), FLEXIBLE, TRANSORAL, DIAGNOSTIC Recall Pendleton's esophagus Health Maintenance Due Date Last Done Comments DISCUSS TOBACCO CESSATION (REFER TO SMARTSET #6878) 1949 Cologuard 1994 Fecal Occult Blood Test 1994 Sigmoidoscopy 1994 *ADVANCE DIRECTIVE NOT ON FILE 06/28/2020 Pendleton's Esophagus Surveilance 01/19/2022 01/19/2019, 09/27/2018, 09/27/2018 COVID-19 Vaccine ( season) 2022 07/14/2021, 08/12/2020, 07/15/2020 Diabetic Eye Exam 06/05/2023 06/04/2022 (No t indicated), 01/14/2021, 11/07/2019, Additional history exists DXA Scan 07/22/2023 07/21/2021, 07/12, 07/10/2018 Diabetic Foot Exam 09/09/2023 09/08/2022, 0 11/17/2021, 01/14/2021, Additional history exists Colonoscopy 09/28/2023 09/27/2018, 09/11, 07/13/2018, Additional history exists Colorectal Cancer Screening 09/28/2023 Influenza Vaccine (FLU shot) (Season Ended) 2023 11/17/2021, 11/30/2019, 12/27/2018, Additional history exists HbA1c 12/09/2023 06/08/2023, 11/13, 09/08/2022, Additional history exists Albumin/Creatinine Ratio 04/13/2024 024, 04/13/2022, 06/03/2021, Additional history exists Mammogram 05/19/2024 05/20/2023, 03/0 10/2023, 03/19/2021, Additional history exists GFR 06/14/2024 06/15/2023, 04/0 04/2023, 06/13/2023, Additional history exists Depression Monitoring 06/21/2024 06/22/2023 O2 ASSESSMENT COMPLETED IN PAST YEAR FOR COPD 07/17/2024 07/18/2023 DTaP,Tdap,and Td Vaccines (4 - Td or Tdap) 10/17/2032 10/17/2022, 07/14/2021 (Declined), 07/27/2010 Pneumococcal Vaccine: 65+ Years Completed 10/27/2015, 08/08/2014, 05/30/2008 RETIRED - COLONOSCOPY-EVERY 5 YRS AGES 18-100 Discontinued 09/27/2018, 09/27/2018, 07/13/2018, Additional history exists VITAMIN D LEVEL ONCE IN A LIFETIME-USE SMARTSET# 46917 Completed 10/16/2021, 12/27/2018 Alpha-1 Antitrypsin Discontinued GARDASIL-HPV IMMUNIZATION SERIES Aged Out No longer eligible based on patient's age to complete this topic Hepatitis B Aged Out No longer eligi ble based on patient's age to complete this topic MENINGOCOCCAL (MENACTRA/MENVEO) Aged Out No longer eligible based on patient's age to complete this topic Zoster Vaccines Discontinued documented as of this encounter Medical Devices Implanted Type Area Pony Rougher Device Identifier Shelf Expiration Date Model / Serial / Lot Stent Graft Icast [id number] - [id number] - [id number] Implanted:Qty : 1 on 04/14/2022 by Nnamdi King MD at OR [facility] N/A: Mesenteric Artery GETINGE : VITOR [id number] 02/21/2023 [id number] / [id number] / [id number] Description:implanted in SMA Stent Howie 3.0x15 Rx - [id number] Implanted:Qty : 1 on 11/12/2022 by Patrice Jose MD at CARDIAC LABS [facility] [employer] : VASCULAR [id number] 11/28/2023 [id number] / / [id number] Stent R2p Misago 6fr [id number] - [id number] Implanted:Qty : 1 on 07/18/2023 by Nnamdi King MD at OR [facility] Right: [facility] : CARDIO SYS [id number] 09/11/2023 [id number] / / [id number] documented as of this encounter Visit Diagnoses Diagnosis Referred for management of medication therapy- Primary Encounter for long-term (current) use of other medications 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 Pendleton's esophagus documented in this encounter Advance Directives * Full Code (Latest Code Status on File) Date Activated Date Inactivated Comments 06/07/2023 11:27 AM 06/14/2023 4:36 PM This order reflects the patients wishes and were consensually agreed upon. Question Answer Comments Discussion of Advance Direct samara occurred with: Patient Does the patient have a Living Will? Yes, in toya rt and reviewed as current Does the patient have Health Care Power of Opal Miner? Yes, in chart and reviewed as current * Limited Code Date Activated Date Inactivated Comments 01/08/2023 3:00 AM 01/23/2023 8:30 PM This order reflects the patients wishes and were consensually agreed upon. Question Answer Comments Discussion of Advance Direct samara occurred with: Not Discussed due to patient's condition Bag Valve Device? No Intubation? No Cardiac Compressions? Yes Defibrillation? Yes Synchronized Cardioversion? Yes External Pacemaker? Yes Cardiac Drugs? Yes * Full Code Date Activated Date Inactivated Comments 01/08/2023 12:33 AM 01/08/2023 3:00 AM This orde r reflects the patients wishes and were consensually agreed upon. Question Answer Comments Discussion of Advance Direct samara occurred with: Not Discussed due to patient's condition * Limited Code Date Activated Date Inactivated Comments 11/08/2022 9:23 AM 11/24/2022 3:11 PM This order r eflects the patients wishes and were consensually agreed upon. Question Answer Comments Discussion of Advance Directives occurred with: Patient Bag Valve Device? Yes Intubation? No Cardiac Compressions? Yes Defibrillation? Yes Synchronized Cardioversion? Yes External Pacemaker? Yes Cardiac Drugs? Yes * Limited Code Date Activated Date Inactivated Comments 11/07/2022 8:03 AM 11/08/2022 9:23 AM This order r eflects the patients wishes and were consensually agreed upon. Question Answer Comments Discussion of Advance Directives occurred with: Patient Bag Valve Device? No Intubation? No Cardiac Compressions? No Defibrillation? Yes Synchronized Cardioversion? Yes External Pacemaker? Yes Cardiac Drugs? Yes Healthcare Agents on File Name Relationship [facility] Diamond Braxton Adult Child Health Care Repr esentative (appointed verbally by patient or by statute hierarchy) Care Teams Rough Rib Grader Relationship Specialty Start Date End Date Courtney Restrepo MD [address] [place] [address] [place] [address] PCP - General Family Medicine 10/17/19 documented as of this encounter
--- OUTSIDE RECORDS SUMMARY | 2023-08-31 06:17 | External Medical Summary | Summary of Care ---
Author Name Unknown Organization [facility] Address [address] [place] [address] Phone [phone] Care Team Providers Care Coil Shaper Name Role Phone Courtney Restrepo MD Primary Care Prov ider Reason for Visit * Reason Onset Date Comments Medication Management 08/25/2023 Encounter Details Date Type Department Care Team (Late st Contact Info) Description 08/25/2023 Telephone Family [address] [phone] Courtney Restrepo MD [address] [place] [address] [place] [address] Medication Management Allergies Active Allergy Reactions Criticality Noted Date [...] edema Nitroglycerin Hypotension 12/20/2018 Penicillins Nausea/vomiting 05/17/2007 Parke Hives 10/02/2018 Propoxyphene Edema face/lips/tongue,Hiv es 06/26/2009 documented as of this encounter (statuses as of 08/29/2023) Medications Medication Sig Dispensed Refills Start Date End Date Status busPIRone HCl 15 MG Oral Tablet (Buspar)Indications: Anxiety TAKE ONE TABLET TWICE DAILY 180 Tablet 1 10/15/2022 Active DULoxetine HCl 30 MG Oral Capsule Delayed Release Particles (Cymbalta)Indication s:Chronic midline thoracic back pain,Generalized anxiety disorder Take 1 Capsule by mouth in the morning and 1 Capsule before bedtime. 180 Capsule 2 10/15/2022 Active SKYE AssociatesTouch Delica Lancets 30GIndications:Type 2 diabetes mellitus with hemoglobin A1c goal of less than 8.0% (HCC) Use to test glucose daily. E11.9 100 Each 5 11/29/2022 Active SKYE AssociatesTouch Verio w/Device KitIndications:Type 2 diabetes mellitus with hemoglobin A1c goal of less than 8.0% (HCC) Use to test glucose daily. E11.9 1 Kit 11/29/2022 Active Trelegy Ellipta 100-62.5-25 MCG/ACT Aerosol Powder Breath ActivatedIndications :COPD, group C, by GOLD 2017 classification ([facility]) Inhale 1 puff as directed once a day 1 inhalation daily. Rinse mouth after every use. 60 Blister Dosing Unit 5 11/29/2022 Active NovoLOG FlexPen 100 UNIT/ML Subcutaneous Solution Pen-injector (insulin aspart)Indications:T ype 2 diabetes mellitus with hemoglobin A1c goal of less than 8.0% (HCC) Units as per sliding scale 3 mL [...] hemoglobin A1c goal of less than 8.0% ([facility]) Test glucose once daily E11.9 100 Strip [...] 20 MG Oral Tablet (Lasix)Indications:A therosclerosis of [place] artery of left lower extremity with rest pain ([facility]),DM type 2 with diabetic peripheral neuropathy (HCC) [...] as of this encounter (statuses as of 08/29/2023) Active Problems Problem Noted Date Diagnosed Date Ischemic rest pain of lower extremity 07/14/2023 Ulcer of right foot, limited to breakdown of ski n 07/14/2023 Dependent rubor 07/14/2023 Atherosclerosis of [place] artery of extremity Pre-ulcerative corn or callous [...] rinse after steroid. Test performed by Bibiana TIGHTENER CPFT Old [place] (myocardial infarction) 02/21/2019 Bilateral carotid artery stenosis [...] osteoporosis 07/03/2018 Reactive depression 11/17/2017 Atherosclerosis of [place] co ronary artery of [place] heart without angina pectoris 07/22/2015 Overview: Single [...] rinse after steroid. Test performed by Bibiana TIGHTENER CPFT GENERAL OSTEOARTHROSIS BMI 32.0-32.9,adult Tobacco use disorder Hyperlipidemia with target LDL less than 70 Overview: ICD-10 update of inactive term RSD upper limb Overview: left arm Generalized anxiety disorder documented as of this encounter (statuses as of 08/29/2023) Resolved Problems Problem Noted Date Diagnosed Date [...] ISCHEMIC HRT DIS NOS Coronary atherosclerosis of [place] coronary artery 11/24/2016 Tobacco abuse 11/17/2017 documented as of this encounter (statuses as of 08/29/2023) Immunizations Name Administration Dates Next Due COVID-19 [...] money to get more. Never true 07/01/2023 Sex and Gender Information Value Date [...] No 06/07/2023 documented as of this encounter Miscellaneous Notes * Telephone Encounter - Zenia Goldberg [facility] - 08/29/2023 12:03 PM EDT Recently placed CGM (Dexcom) on patient to better assess blood sugars as I have not yet saw any readings. Scheduled for first Dexcom download on 09/06. Zenia Goldberg [facility], PharmD Clinical Pharmacist - Recycling Attendant Medication Therapy [facility] 08/29/2023, 12:03 PM [phone] * Telephone Encounter - Margret Potts OSA - 08/29/2023 9:07 AM EDT Appt scheduled with Eben Obregon on 08/30/23. Pt aware. * Telephone Encounter - Courtney Restrepo MD - 08/26/2023 4:11 PM EDT Make appt with me and MTM-DM (Ruddy Goldberg). * Telephone Encounter - Crystal Hutson LPN - 08/26/2023 10:55 AM EDT Patient is calling. Asking about a response to her message from yesterday. Reports she is having an allergic response to the insulin. She is getting blood blisters all over her body. Please see previous message and advise. * Telephone Encounter - Yanni Charles LPN - 08/25/2023 4:46 PM EDT Pt is calling. Reports that she just got done speaking with a [employer] Pharmacist for a medication review. States that the pharmacist suggested Glipizide and Januvia for better glucose control to get her off of the insulin because it is not controlling her BSG the way it should be. Pt states that the insulin is doing her more harm than good. Please advise. documented in this encounter Plan of Treatment Upcoming Encounters Date Type Department Care Team (Latest Contact Info) Description 08/30/2023 4:20 PM EDT Office Visit Family [address] [place] [phone] Eben Obregon CRNP [address] [place] [address] [place] [address] 09/07/2023 1:10 PM EDT Office Visit Pharmacy, [address] [place] [address] [place] [address] 09/27/2023 9:40 AM EDT Office Visit [address] [place] [phone] Courtney Restrepo MD [address] [place] [address] [place] [address] 10/10/2023 4:00 PM EDT Office Visit Nephrology, [facility] [address] [place] [address] Charla Potter MD [address] [facility] [place] [id number] 10/12/2023 11:00 AM EDT Office Visit Cardiology, [facility] [address] [facility] [place] [address] Frantz Herrera MD [address] [place] [address] 12/07/2023 9:20 AM EDT Office Visit Family Medicine [address] [place] [phone] Courtney Restrepo MD [address] [place] [address] [place] [address] 01/17/2024 10:00 AM EST Hospital Encounter ENDO OSS, Endoscopy Room [facility] [address] [place] [phone] Cassandra Hart MD [address] [place] [address] 01/17/2024 10:00 AM EST - 01/17/2024 10:30 AM EST Surgery ENDO OSS, Endoscopy Room [facility] [address] [place] [phone] Cassandra Hart MD [address] [place] [address] ESOPHAGOGASTRODUODENOSCOPY (EGD), FLEXIBLE, TRANSORAL, DIAGNOSTIC 01/25/2024 10:30 AM EST Imaging Vascular Lab, [address] [facility] [place] [address] 01/25/2024 11:30 AM EST Imaging Vascular Lab, [address] [facility] [place] [address] 02/01/2024 11:30 AM EST Office Visit Vascular Surgery, [facility] [address] [facility] [place] [address] Nnamdi King MD [address] [facility] [place] [address] 02/08/2024 11:00 AM EST Imaging Radiology, [address] [place] [address] 02/17/2024 10:00 AM EST Office Visit Rheumatology [address] [place] [phone] Marshall Romano MD [address] [place], [place] [phone] Scheduled Procedures Name Priority Associated Diagnoses Date/Ti me ESOPHAGOGASTRODUODENOSCOPY ( EGD), FLEXIBLE, TRANSORAL, DIAGNOSTIC 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 01/17/2024 10:00 AM EST ESOPHAGOGASTRODUODENOSCOPY ( EGD), FLEXIBLE, TRANSORAL, DIAGNOSTIC Recall Pendleton's esophagus Health Maintenance Due Date Last Done Comments DISCUSS TOBACCO CESSATION (REFER TO SMARTSET #1081) 1949 Cologuard 1994 Fecal Occult Blood Test [...] 06/03/2021, Additional history exists Mammogram 05/19/2024 05/20/2023, 10/2023, 03/19/2021, Additional history exists GFR 06/14/2024 06/15/2023, 04/2023, 06/13/2023, Additional history exists Depression Monitoring 06/21/2024 06/22/2023 O2 ASSESSMENT COMPLETED IN PAST YEAR FOR COPD 07/17/2024 07/18/2023 DTaP,Tdap,and Td Vaccines (4 - Td or Tdap) 10/17/2032 10/17/2022, 07/14/2021 (Declined), 07/27/2010 Pneumococcal Vaccine: 65+ Years Completed 10/27/2015, 08/08/2014, 05/30/2008 RETIRED - COLONOSCOPY-EVERY 5 YRS AGES 18-100 Discontinued 09/27/2018, 09/27/2018, 07/13/2018, Additional history exists VITAMIN D LEVEL ONCE IN A LIFETIME-USE SMARTSET# 09676 Completed 10/16/2021, 12/27/2018 Alpha-1 Antitrypsin Discontinued GARDASIL-HPV [...] this encounter Medical Devices Implanted Type Area Television News Reporter Device Identifier Shelf Expiration Date Model / Serial / Lot Stent Graft Icast [id number] - [id number] - [id number] Implanted:Qty : 1 on 04/14/2022 by Nnamdi King MD [place] [facility] [place]/A: Mesenteric Artery GETINGE : VITOR [id number] 02/21/2023 [id number] / [id number] Description:implanted in SMA Stent Howie 3.0x15 Rx - [id number] Implanted:Qty : 1 on 11/12/2022 by Patrice Jose MD at [facility] [place] [facility] MEDTRONIC : VASCULAR [id number] 11/28/2023 [id number] / / [id number] Stent R2p Misago 6fr [id number] - [id number] Implanted:Qty : 1 on 07/18/2023 by Nnamdi King MD [place] [facility] Right: [facility] MEDICAL : CARDIO S [id number] 09/11/2023 [id number] / / [id number] documented as of this encounter Advance Directives * Full Code (Latest Code Status on File) Date Activated Date Inactivated Comments 06/07/2023 11:27 AM 06/14/2023 4:36 PM This order r eflects the patients wishes and were consensually agreed upon. Question Answer Comments Discussion of Advance Direct samara occurred with: Patient Does the patient have a Living Will? Yes, in toya rt and reviewed as current Does the patient have Health Care Power of Hand Winder? Yes, in chart and reviewed as current [...] Agents on File Name Relationship Healthcare Agent Relationshi p Communication Diamond Braxton Adult Child Health Care Repr esentative (appointed verbally by patient or by statute hierarchy) Care Teams Coil Shaper Relationship Specialty Start Date End Date Courtney Restrepo MD [address] [place] [address] [place] [phone] PCP - General Family Medicine 10/17/19 documented as of this encounter
--- OUTSIDE RECORDS SUMMARY | 2023-08-31 06:17 | External Medical Summary | Summary of Care ---
Author Name Unknown Organization [facility] Address [address] [place] [address] Phone [phone] Care Team Providers Care Outreach Assistant Name Role Phone Courtney Restrepo MD Primary Care Prov ider Reason for Visit * Reason Onset Date Comments Medication Management 08/25/2023 Encounter Details Date Type Department Care Team (Late st Contact Info) Description 08/25/2023 Telephone Family [address] [phone] Courtney Restrepo MD [address] [place] [address] [place] [address] Medication Management Allergies Active Allergy Reactions [...] edema Nitroglycerin Hypotension 12/20/2018 Penicillins Nausea/vomiting 05/17/2007 Jay Hives 10/02/2018 Propoxyphene Edema face/lips/tongue,Hiv es 06/26/2009 [...] before bedtime. 180 Capsule 2 10/15/2022 Active Uniqu[employer]Touch Delica Lancets 30GIndications:Type 2 diabetes mellitus with hemoglobin A1c goal of less than 8.0% (HCC) Use to test glucose daily. E11.9 100 Each 5 11/29/2022 Active Un[employer]Touch Verio w/Device KitIndications:Type 2 diabetes mellitus with hemoglobin A1c goal of less than 8.0% (HCC) Use to test glucose daily. E11.9 1 Kit 11/29/2022 Active Trelegy Ellipta 100-62.5-25 MCG/ACT Aerosol Powder Breath ActivatedIndications :COPD, group C, by GOLD 2017 classification ([facility]) Inhale 1 puff as directed once a [...] hemoglobin A1c goal of less than 8.0% ([facility]) Test glucose once daily E11.9 100 Strip [...] 20 MG Oral Tablet (Lasix)Indications:A therosclerosis of [place] artery of left lower extremity with rest pain ([facility]),DM type 2 with diabetic peripheral neuropathy (HCC) [...] n 07/14/2023 Dependent rubor 07/14/2023 Atherosclerosis of [place] artery of extremity Pre-ulcerative corn or callous [...] rinse after steroid. Test performed by Bibiana SUPERVISOR SILVERING DEPARTMENT CPFT [place] (myocardial infarction) 02/21/2019 Bilateral carotid artery stenosis [...] osteoporosis 07/03/2018 Reactive depression 11/17/2017 Atherosclerosis of [place] co ronary artery of [place] heart without angina pectoris 07/22/2015 Overview: Single [...] rinse after steroid. Test performed by Bibiana SUPERVISOR SILVERING DEPARTMENT CPFT GENERAL OSTEOARTHROSIS BMI 32.0-32.9,adult Tobacco use [...] ISCHEMIC HRT DIS NOS Coronary atherosclerosis of [place] coronary artery 11/24/2016 Tobacco abuse 11/17/2017 documented [...] encounter Miscellaneous Notes * Telephone Encounter - Courtney Restrepo MD - 08/29/2023 1:30 PM EDT Noted and agree with Dexcom. I doubt her "blood blisters" are related to insulin, as she has been on insulin for many months without reaction. She was switched to insulin due to recurrent hospitalization, FYI. I am not adverse to switching her back to oral meds - she had been on jardiance, trulicity, glipizide and pioglitazonein recent past. Just FYI. Last A1C 9.1. I would not restart jardiance until A1C < 8. Pioglitazone and glipizide would be reasonable. Trulicity could also be an option - I dont recall how well she tolerated this last time. Just sharing my thoughts. * Telephone Encounter - Zenia Goldberg RPh - 08/29/2023 12:03 PM EDT Recently placed CGM (Dexcom) on patient to better assess blood sugars as I have not yet saw any readings. Scheduled for first Dexcom download on 09/06. Zenia Goldberg RPh, PharmD Clinical Pharmacist - Sander Operator Medication Therapy Disease Management [facility] 08/29/2023, 12:03 PM [phone] * Telephone Encounter - Margret Potts OSA [...] she just got done speaking with a [employer] Pharmacist for a medication review. States that [...] Description 08/30/2023 4:20 PM EDT Office Visit [address] [phone] Eben Obregon CRNP [address] [place] [address] [place] [address] 09/07/2023 1:10 PM EDT Office Visit Pharmacy, [address] [place] [address] [place] [address] 09/27/2023 9:40 AM EDT Office Visit [address] [place] [phone] Courtney Restrepo MD [address] [place] [address] [place] [address] 10/10/2023 4:00 PM EDT Office Visit Nephrology, [address] [place] [address] Charla Potter MD [address] [facility] [place] [address] 10/12/2023 11:00 AM EDT Office Visit Cardiology, [facility] [address] [place] [address] Frantz Herrera MD [facility] [address] 12/07/2023 9:20 AM EDT Office Visit [address] [place] [phone] Courtney Restrepo MD [address] [place] [address] [place] [address] 01/17/2024 10:00 AM EST Hospital Encounter ENDO OSSC, Endoscopy Room [facility] [address] [place] [phone] Cassandra Hart MD [address] [place] [address] 01/17/2024 10:00 AM EST - 01/17/2024 10:30 AM EST Surgery ENDO OSSC, Endoscopy Room [facility] [address] [place] [phone] Cassandra Hart MD [address] [place] [address] ESOPHAGOGASTRODUODENOSCOPY (EGD), FLEXIBLE, TRANSORAL, DIAGNOSTIC 01/25/2024 10:30 AM EST Imaging Vascular Lab, [facility] [address] [facility] [place] [address] 01/25/2024 11:30 AM EST Imaging Vascular Lab, [address] [place] [address] 02/01/2024 11:30 AM EST Office Visit Vascular Surgery, [address] [place] [address] Nnamdi King MD [address] [facility] [place] [address] 02/08/2024 11:00 AM EST Imaging Radiology, [address] [place] [address] 02/17/2024 10:00 AM EST Office Visit Rheumatology [address] [place] [phone] Marshall Romano MD [address] [place] [address] [place] [address] Scheduled Procedures Name Priority Associated Diagnoses Date/Ti me ESOPHAGOGASTRODUODENOSCOPY ( EGD), FLEXIBLE, TRANSORAL, DIAGNOSTIC 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 01/17/2024 10:00 AM EST ESOPHAGOGASTRODUODENOSCOPY ( EGD), FLEXIBLE, TRANSORAL, DIAGNOSTIC Recall Pendleton's esophagus Health Maintenance Due Date Last Done Comments DISCUSS TOBACCO CESSATION (REFER TO SMARTSET #3291) 1949 Cologuard 1994 Fecal Occult Blood Test [...] D LEVEL ONCE IN A LIFETIME-USE SMARTSET# 69258 Completed 10/16/2021, 12/27/2018 Alpha-1 Antitrypsin Discontinued GARDASIL-HPV [...] this encounter Medical Devices Implanted Type Area Agent Based Modeler Device Identifier Shelf Expiration Date Model / Serial / Lot Stent Graft Icast [id number] - [id number] - [id number] Implanted:Qty : 1 on 04/14/2022 by Nnamdi King MD [place] [facility] N/A: Mesenteric Artery GETINGE : MAQUET [id number] 02/21/2023 [id number] / [id number] Description:implanted in SMA Stent Howie 3.0x15 Rx - [id number] Implanted:Qty : 1 on 11/12/2022 by Patrice Jose MD at [facility]ARDI[facility] MEDTRONIC : VASCULAR [id number] 11/28/2023 [id number] / / [id number] Stent R2p Misago 6fr [id number] - [id number] Implanted:Qty : 1 on 07/18/2023 by Nnamdi King MD at [place] [facility] Right: [facility] MEDICAL : CARDIO SYS [phone] 09/11/2023 [id number] / / [id number] documented as of this encounter Advance Directives [...] the patient have Health Care Power of Emergency Medical Service Manager? Yes, in chart and reviewed as current [...] Agents on File Name Relationship Healthcare Agent [facility] p Communication Diamond Braxton Adult Child Health Care Repr esentative (appointed verbally by patient or by statute hierarchy) Care Teams Outreach Assistant Relationship Specialty Start Date End Date Courtney Restrepo MD [address] [place] [address] [place] [address] PCP - General Family Medicine 10/17/19 documented as of this encounter
--- OUTSIDE RECORDS SUMMARY | 2023-08-31 06:17 | External Medical Summary | Summary of Care ---
Author Name Unknown Organization [facility] Address [address] [place] [address] Phone [phone] Care Team Providers Care State Patrol Officer Name Role Phone Courtney Restrepo MD Primary Care Prov ider Reason for Visit * Reason Onset Date Comments Medication Management 08/25/2023 Encounter Details Date Type Department Care Team (Late st Contact Info) Description 08/25/2023 Telephone Family [address] [phone] Courtney Restrepo MD [address] [place] [address] [place] [address] Medication Management Allergies Active Allergy Reactions [...] edema Nitroglycerin Hypotension 12/20/2018 Penicillins Nausea/vomiting 05/17/2007 [place] Hives 10/02/2018 Propoxyphene Edema face/lips/tongue,Hiv es 06/26/2009 [...] before bedtime. 180 Capsule 2 10/15/2022 Active eHealth SystemsTouch Delica Lancets 30GIndications:Type 2 diabetes mellitus with hemoglobin A1c goal of less than 8.0% (HCC) Use to test glucose daily. E11.9 100 Each 5 11/29/2022 Active eHealth SystemsTouch Verio w/Device KitIndications:Type 2 diabetes mellitus with hemoglobin A1c goal of less than 8.0% (HCC) Use to test glucose daily. E11.9 1 Kit 11/29/2022 Active Trelegy Ellipta 100-62.5-25 MCG/ACT Aerosol Powder Breath ActivatedIndications :COPD, group C, by GOLD 2017 classification ([facility]) Inhale 1 puff as directed once [...] A1c goal of less than 8.0% ([facility]) Test glucose once daily E11.9 100 [...] 20 MG Oral Tablet (Lasix)Indications:A therosclerosis of chinik artery of left lower extremity with rest pain ([facility]),DM type 2 with diabetic peripheral neuropathy [...] n 07/14/2023 Dependent rubor 07/14/2023 Atherosclerosis of chinik artery of extremity Pre-ulcerative corn or callous 07/12/2023 Status post below-knee amputation of left lower extremity 06/29/2023 S/P AKA (above knee amputation), left 06/07/2023 Pathological fracture of milile tebra due to osteoporosis with routine healing, [...] rinse after steroid. Test performed by Bibiana BOTANICAL TECHNICAL OFFICER CPFT Old [place] (myocardial infarction) 02/21/2019 Bilateral carotid artery stenosis [...] osteoporosis 07/03/2018 Reactive depression 11/17/2017 Atherosclerosis of chinik co ronary artery of chinik heart without angina pectoris 07/22/2015 Overview: Single [...] rinse after steroid. Test performed by Bibiana BOTANICAL TECHNICAL OFFICER CPFT GENERAL OSTEOARTHROSIS BMI 32.0-32.9,adult Tobacco use [...] ISCHEMIC HRT DIS NOS Coronary atherosclerosis of chinik coronary artery 11/24/2016 Tobacco abuse 11/17/2017 documented [...] Zenia Goldberg RPh, PharmD Clinical Pharmacist - Fur [facility] 08/29/2023, 12:03 PM [phone] * Telephone Encounter - Margret Potts OSA [...] she just got done speaking with a Zimride Leonardo Pharmacist for a medication review. States [...] Description 08/30/2023 4:20 PM EDT Office Visit [address] [phone] Eben Obregon CRNP [address] [place] [address] [place] [address] 09/07/2023 1:10 PM EDT Office Visit Pharmacy, [address] [place] [address] [place] [address] 09/27/2023 9:40 AM EDT Office Visit [address] [place] [phone] Courtney Restrepo MD [address] [place] [address] [place] [address] 10/10/2023 4:00 PM EDT Office Visit Nephrology, [address] [place] [address] Charla Potter MD 400 [facility] [place] [address] 10/12/2023 11:00 AM EDT Office Visit Cardiology, [facility] [address] [place] [address] Frantz Herrera MD [facility] [address] 12/07/2023 9:20 AM EDT Office Visit [address] [place] [phone] Courtney Restrepo MD [address] [place] [address] [place] [address] 01/17/2024 10:00 AM EST Hospital Encounter ENDO OSSC, Endoscopy Room [facility] [address] [place] [phone] Cassandra Hart MD [address] [place] [address] 01/17/2024 10:00 AM EST - 01/17/2024 10:30 AM EST Surgery ENDO OSSC, Endoscopy Room [facility] [address] [place] [phone] Cassandra Hart MD [address] [place] [address] ESOPHAGOGASTRODUODENOSCOPY (EGD), FLEXIBLE, TRANSORAL, DIAGNOSTIC 01/25/2024 10:30 AM EST Imaging Vascular Lab, [facility] 2nd [facility] [address] [facility] [place] [address] 01/25/2024 11:30 AM EST Imaging Vascular Lab, [address] [place] [address] 02/01/2024 11:30 AM EST Office Visit Vascular Surgery, [address] [place] [address] Nnamdi King MD [address] [facility] [address] 02/08/2024 11:00 AM EST Imaging Radiology, [address] [place] [address] 02/17/2024 10:00 AM EST Office Visit Rheumatology [address] [place] [phone] Marshall Romano MD [address] [place] [address] [place] [address] Scheduled Procedures Name Priority Associated Diagnoses Date/Ti [...] D LEVEL ONCE IN A LIFETIME-USE SMARTSET# [id number] Completed 10/16/2021, 12/27/2018 Alpha-1 Antitrypsin Discontinued GARDASIL-HPV [...] this encounter Medical Devices Implanted Type Area Leaf Stamper Device Identifier Shelf Expiration Date Model / Serial / Lot Stent Graft Icast [id number] - [id number] - [id number] Implanted:Qty : 1 on 04/14/2022 by Nnamdi [place] [facility]: Mesenteric Artery GETINGE : MAQUET [id number] 02/21/2023 [id number] / [id number] / [id number] Description:implanted in SMA Stent Howie 3.0x15 Rx - [id number] Implanted:Qty : 1 on 11/12/2022 by Patrice Jose MD at [facility] [employer]ONIC : VASCULAR [id number] 11/28/2023 [id number] / / [id number] Stent R2p Misago 6fr [id number] - [id number] Implanted:Qty : 1 on 07/18/2023 by Nnamdi King [place] [facility] Right: [facility] MED[facility] : CARDIO SYS [id number] 09/11/2023 [id number] / / [id number] documented as of this encounter Advance Directives [...] the patient have Health Care Power of Track Sweeper? Yes, in chart and reviewed as current [...] Agents on File Name Relationship Healthcare Agent [facility] p Communication Diamond Braxton Adult Child Health Care Repr esentative (appointed verbally by patient or by statute hierarchy) Care Teams State Patrol Officer Relationship Specialty Start Date End Date Courtney Restrepo MD [address] [place] [address] [place] [address] PCP - General Family Medicine 10/17/19 documented as of this encounter
--- OUTSIDE RECORDS SUMMARY | 2023-08-31 06:18 | External Medical Summary | Summary of Care ---
Author Name Unknown Organization [facility] Address [address] [place] [address] Phone [phone] Care Team Providers Care Precision Lens Polisher Name Role Phone Courtney Restrepo MD Primary Care Prov ider Reason for Visit * Reason Onset Date Comments Medication Refill 08/11/2023 Encounter Details Date Type Department Care Team (Late st Contact Info) Description 08/11/[address] [phone] Courtney Restrepo MD [address] [place], [place] [address] [phone] Allergies Active Allergy Reactions Criticality Noted Date [...] edema Nitroglycerin Hypotension 12/20/2018 Penicillins Nausea/vomiting 05/17/2007 [place] Hives 10/02/2018 Propoxyphene Edema face/lips/tongue,Hiv es 06/26/2009 documented as of this encounter (statuses as of 08/11/2023) Medications Medication Sig Dispensed Refills Start Date End Date Status busPIRone HCl 15 MG Oral Tablet (Buspar)Indications :Anxiety TAKE ONE TABLET TWICE DAILY 180 Tablet 1 3 Active DULoxetine HCl 30 MG Oral Capsule Delayed Release Particles (Cymbalta)Indicatio ns:Chronic midline thoracic back pain,Generalized anxiety disorder Take 1 Capsule by mouth in the morning and 1 Capsule before bedtime. 180 Capsule 2 3 Active OneTouch Delica Lancets 30GIndications:Type 2 diabetes mellitus with hemoglobin A1c goal of less than 8.0% (HCC) Use to test glucose daily. E11.9 100 Each 5 3 Active OneTouch Verio w/Device KitIndications:Type 2 diabetes mellitus with hemoglobin A1c goal of less than 8.0% (HCC) Use to test glucose daily. E11.9 1 Kit 3 Active Trelegy Ellipta 100-62.5-25 MCG/ACT Aerosol Powder Breath ActivatedIndication s:COPD, group C, by GOLD 2017 classification ([facility]) Inhale 1 puff as directed once a day 1 inhalation daily. Rinse mouth after every use. 60 Blister Dosing Unit 5 3 Active NovoLOG FlexPen 100 UNIT/ML Subcutaneous Solution Pen-injector (insulin aspart)Indications: Type 2 diabetes mellitus with hemoglobin A1c goal of less than 8.0% (HCC) Units as per sliding scale 3 mL 3 3 Active Insulin Glargine Solostar 100 UNIT/ML Subcutaneous Solution Pen-injector (Lantus SoloStar)Indication s:Type 2 diabetes mellitus with hemoglobin A1c goal of less than 8.0% (HCC) Inject 10 Units under the skin every night at bedtime. Lantus SoloStar Brand Necessary 3 mL 3 3 Active Multivitamin Adult (Minerals) Oral Tablet Take by mouth. Active Vitamin D 125 MCG (5000 UT) Oral Capsule Take 1 Capful by mouth in the morning and 1 Capful before bedtime. Active Align Extra Strength Oral Capsule Take 1 Capsule by mouth every evening. Active OneTouch Verio In Vitro Strip (Glucose Blood)Indications:T ype 2 diabetes mellitus with hemoglobin A1c goal of less than 8.0% ([facility]) Test glucose once daily E11.9 100 Strip 5 3 Active Calcium Carbonate 600 MG Oral Tablet (Calcium 600) Take 1 Tablet by mouth 2 times a day with morning and evening meals. (Not TUMS) Active Polyethylene Glycol 3350 17 GM/SCOOP Oral Powder (MiraLax)Indication s:Other constipation Dissolve one heaping tablespoon in 8 ounces of water or juice - one dose per day as needed for severe constipation 225 g 2 4 Active Aspirin 81 MG Oral Tablet Chewable Take 1 Tablet by mouth in the morning. 30 Tablet 1 4 Active Pantoprazole Sodium 40 MG Oral Tablet Delayed Release (Protonix)Indicatio ns:Iron deficiency anemia due to chronic blood loss,Chronic superficial gastritis with bleeding TAKE 1 TABLET BY MOUTH 30 MINUTES BEFORE FIRST MEAL AND 1 TABLET BEFORE BEDTIME DO NOT CRUSH, SPLIT, OR CHEW 180 Tablet 3 4 Active Sennosides-Docusate Sodium 8.6-50 MG Oral Tablet (Senokot-S) Take 2 Tablets by mouth in the morning and 2 Tablets before bedtime. 60 Tablet 1 4 Active Additional Information Patient not taking.Informant: Patient, Reported on 08/10/2023 Sucralfate 1 GM Oral Tablet (Carafate) Take 1 Tablet by mouth 4 times a day before meals and at bedtime. 120 Tablet 5 4 Active Loratadine 10 MG Oral Tablet (Claritin) Take 1 Tablet by mouth in the morning. 90 Tablet 3 4 Active Albuterol Sulfate HFA 108 (90 Base) MCG/ACT Inhalation Aerosol SolutionIndications :Bacterial pneumonia Use two puffs four times a day as needed for shortness of breath/wheezing 18 g 3 4 Active Gabapentin 300 MG Oral Capsule (Neurontin) Take 1 Capsule by mouth in the morning and 1 Capsule at noon and 1 Capsule before bedtime. 90 Capsule 3 4 Active Furosemide 20 MG Oral Tablet (Lasix)Indications: Atherosclerosis of capitan grande band artery of left lower extremity with rest pain (HCC),DM type 2 with diabetic peripheral neuropathy (HCC) One daily 30 Tablet 5 4 Active Ipratropium-Albuter ol 0.5-2.5 (3) MG/3ML Inhalation Solution (Duoneb) Inhale 3 mL by mouth every 4 hours as needed for Shortness of Breath. 3 Active Clopidogrel Bisulfate 75 MG Oral Tablet (pLAVix)Indications :Asymptomatic bilateral carotid artery stenosis TAKE 1 TABLET BY MOUTH EVERY MORNING 90 Tablet 3 4 Active HYDROcodone-Acetami nophen 5-325 MG Oral TabletIndications:S /P AKA (above knee amputation), left (HCC) Take 1 Tablet by mouth every 6 hours as needed for Pain, Mild or Pain, Severe. 60 Tablet 4 Active Atorvastatin Calcium 40 MG Oral Tablet (Lipitor) Take 1 Tablet by mouth in the morning. Active Famotidine 20 MG Oral Tablet (Pepcid) Take 1 Tablet by mouth in the morning. 4 Active Baclofen 5 MG Oral Tablet (Lioresal) Take 1 Tablet by mouth in the morning and 1 Tablet at noon and 1 Tablet before bedtime. As needed for muscle spasm. 30 Tablet 4 Active Baclofen 5 MG Oral Tablet (Lioresal) Take 1 Tablet by mouth in the morning and 1 Tablet at noon and 1 Tablet before bedtime. As needed for muscle spasm. 30 Tablet 4 08/11/19 24 Discontinu ed(Refill) documented as of this encounter (statuses as of 08/11/2023) Active Problems Problem Noted Date Diagnosed Date Ischemic rest pain of lower extremity 07/14/2023 Ulcer of right foot, limited to breakdown of ski n 07/14/2023 Dependent rubor 07/14/2023 Atherosclerosis of capitan grande band artery of extremity Pre-ulcerative corn or callous [...] rinse after steroid. Test performed by Bibiana FOAM CASTER CPFT Old [place] (myocardial infarction) 02/21/2019 Bilateral carotid artery stenosis [...] osteoporosis 07/03/2018 Reactive depression 11/17/2017 Atherosclerosis of capitan grande band co ronary artery of capitan grande band heart without angina pectoris 07/22/2015 Overview: Single [...] rinse after steroid. Test performed by Bibiana FOAM CASTER CPFT GENERAL OSTEOARTHROSIS BMI 32.0-32.9,adult Tobacco use disorder Hyperlipidemia with target LDL less than 70 Overview: ICD-10 update of inactive term RSD upper limb Overview: left arm Generalized anxiety disorder documented as of this encounter (statuses as of 08/11/2023) Resolved Problems Problem Noted Date Diagnosed Date [...] ISCHEMIC HRT DIS NOS Coronary atherosclerosis of capitan grande band coronary artery 11/24/2016 Tobacco abuse 11/17/2017 documented as of this encounter (statuses as of 08/11/2023) Immunizations Name Administration Dates Next Due COVID-19 [...] Influenza, Trivalen t, Adjuvanted, 65+ yrs 12/27/2018 TDAP, Age 7 and older, IM (Adacel) [...] Telephone Encounter - Courtney Restrepo MD - 08/11/2023 4:51 PM EDT Signed Prescriptions: Disp Refills Baclofen 5 MG Oral Tablet (Lioresal) 30 Tab*0 Sig: Take 1 Tablet by mouth in the morning and 1 Tablet at noon and 1 Tablet before bedtime. As needed for muscle spasm. Authorizing Provider: COURTNEY RESTREPO * Telephone Encounter - Adriana Pinto LPN - 08/11/2023 1:33 PM EDT Pending Prescriptions: Disp Refills Baclofen 5 MG Oral Tablet (Lioresal) 30 Tab*0 Sig: Take 1 Tablet by mouth in the morning and 1 Tablet at noon and 1 Tablet before bedtime. As needed for muscle spasm. Last Visit: 08/09/2023 (in office), 11/29/2022 (telemedicine) Next Visit: 09/27/2023 Last date the medication was ordered: 07/26/23 Patient Active Problem List Diagnosis Moderate persistent asthma without complication GENERAL OSTEOARTHROSIS Cerebrovascular disease, arteriosclerotic, post-stroke ADVANCE DIRECTIVE INFORMATION BMI 32.0-32.9,adult Tobacco use disorder Hyperlipidemia with target LDL less than 70 RSD upper limb Type 2 diabetes mellitus with hemoglobin A1c goal of less than 8.0% ([facility]) Controlled substance agreement signed Generalized anxiety disorder Atherosclerosis of capitan grande band coronary artery of capitan grande band heart without angina pectoris Reactive depression Senile osteoporosis PAD (peripheral artery disease) ([facility]) Iron deficiency anemia due to chronic blood loss 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 Chronic superficial gastritis with bleeding Gastrointestinal hemorrhage with melena Lung nodules Moderate mitral regurgitation Old [place] (myocardial infarction) Bilateral carotid artery stenosis DM type 2 with diabetic peripheral neuropathy ([facility]) Right hand tendonitis Generalized arthritis Hand arthritis Centrilobular emphysema (HCC) 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 (HCC) Major depressive disorder, recurrent, unspecified (HCC) Non-proliferative diabetic retinopathy, both eyes (HCC) Recurrent major depressive disorder, in partial remission (HCC) Mesenteric ischemia, chronic (HCC) COPD, group D, by GOLD 2017 classification ([facility]) Chronic ischemic heart disease Advanced directives, counseling/discussion Type 2 diabetes mellitus with peripheral artery disease ([facility]) 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- dominant side ([facility]) Wound drainage S/P femoral-femoral bypass surgery History of cardiac arrest Shock ([facility]) Lactic acidosis Transaminitis Encephalopathy acute Pathological fracture of vertebra due to osteoporosis with routine healing, subsequent encounter S/P AKA (above knee amputation), left ([facility]) Status post below-knee amputation of left lower extremity ([facility]) Pre-ulcerative corn or callous Ischemic rest pain of lower extremity Ulcer of right foot, limited to breakdown of skin ([facility]) Dependent rubor Atherosclerosis of capitan grande band artery of extremity ([facility]) Labs: Lab Results Component Value Date/Time CREATININE - [facility] 0.7 06/15/2023 07:20 AM CREATININE - [facility] 0.8 04/09/2020 01:42 PM CREATININE MATILDA 19 04/09/2020 01:56 PM CREATININE MATILDA - [facility] 59 11/17/2021 02:54 PM CREATININE, RANDOM URINE - [facility] 151 04/13/2023 10:12 AM CREATININE, RANDOM URINE - [facility] 64 12/07/2019 03:43 PM CREATININE-OUTSIDE LAB 0.94 05/11/2023 12:00 AM Lab Results Component Value Date/Time POTASSIUM - [facility] 4.7 06/15/2023 07:20 AM POTASSIUM - [facility] 4.3 04/09/2020 01:42 PM POTASSIUM POCT - [facility] 4.1 01/18/2023 01:37 AM POTASSIUM-OUTSIDE LAB 4.4 05/11/2023 12:00 AM Lab Results Component Value Date/Time TSH - [facility] 1.51 12/28/2022 11:45 AM TSH - [facility] 0.63 08/08/2014 02:19 PM Lab Results Component Value Date/Time LDL CHOLESTEROL (CALCULATED) - [facility] 84 12/10/2022 01:18 PM LDL CHOLESTEROL (CALCULATED) - [facility] 82 06/03/2021 02:45 PM LDL CHOLESTEROL (CALCULATED) - [facility] 110 04/09/2020 01:42 PM LDL CHOLESTEROL (CALCULATED) - [facility] 60 12/27/2018 01:41 PM LDL CHOLESTEROL (DIRECT MEASURE) - [facility] 74 06/03/2021 02:45 PM LDL CHOLESTEROL (DIRECT MEASURE) - [facility] NOT APPLICABLE 04/09/2020 01:42 PM LDL CHOLESTEROL (DIRECT MEASURE) - [facility] NOT APPLICABLE 12/27/2018 01:41 PM LDL CHOLESTEROL (DIRECT MEASURE) - [facility] 75 06/25/2010 01:30 PM Lab Results Component Value Date/Time ALT - [facility] 16 06/08/2023 05:36 AM ALT - [facility] 18 01/01/2020 01:27 PM ALT-OUTSIDE LAB 23 09/28/2016 12:00 AM ALTERNARIA IGE - [facility] <0.10 04/25/2019 12:44 PM Hemoglobin AIC Results: Lab Results Component Value Date/Time HEMOGLOBIN A1C - [facility] 9.1 (H) 06/08/2023 05:36 AM HEMOGLOBIN A1C - [facility] 7.1 (H) 12/10/2022 01:18 PM HEMOGLOBIN A1C - [facility] 6.7 (H) 09/08/2022 02:38 PM HEMOGLOBIN A1C - [facility] 6.6 (H) 04/09/2020 01:42 PM HEMOGLOBIN A1C - [facility] 6.4 (H) 10/18/2019 07:47 AM HEMOGLOBIN A1C - [facility] 5.8 (H) 12/27/2018 01:41 PM documented in this encounter Plan of Treatment Upcoming Encounters Date Type Department Care Team (Latest Contact Info) Description 08/22/2023 11:20 AM EDT Office Visit Pharmacy, [address] [place] [address] [place] [address] 09/27/2023 9:40 AM EDT Office Visit Family Medicine [address] [place] [phone] Courtney Restrepo MD [address] [place] [address] [place] [address] 10/10/2023 4:00 PM EDT Office Visit Nephrology, [address] [place] [address] Charla Potter MD [address] [place] [address] 10/12/2023 11:00 AM EDT Office Visit Cardiology, [facility] [address] [place] [address] Frantz Herrera MD [address] [place] [address] 12/07/2023 9:20 AM EDT Office Visit Family Medicine [address] [phone] Courtney Restrepo MD [address] [place] [address] [place] [address] 01/17/2024 10:00 AM EST Hospital Encounter ENDO OSS, Endoscopy Room [facility] [address] [place] [phone] Cassandra Hart MD [address] [place] [address] 01/17/2024 10:00 AM EST - 01/17/2024 10:30 AM EST Surgery ENDO OSS, Endoscopy Room [facility] [address] [place] [phone] Cassandra Hart MD [address] [place] [address] ESOPHAGOGASTRODUODENOSCOPY (EGD), FLEXIBLE, TRANSORAL, DIAGNOSTIC 01/25/2024 10:30 AM EST Imaging Vascular Lab, [address] [facility] [place] [address] 01/25/2024 11:30 AM EST Imaging Vascular Lab, [address] [facility] [place] [address] 02/01/2024 11:30 AM EST Office Visit Vascular Surgery, [address] [place] [address] Nnamdi King MD [address] [place] [address] 02/08/2024 11:00 AM EST Imaging Radiology, [place] [address] [employer] [place] [address] 02/17/2024 10:00 AM EST Office Visit Rheumatology [address] [place] [phone] Marshall Romano MD [facility] [employer] [place] [address] Scheduled Procedures Name Priority Associated Diagnoses Date/Ti [...] Additional history exists DXA Scan 07/22/2023 07/21/2021, 07/10/2018 Diabetic Foot Exam 09/09/2023 09/08/2022, 0 11/17/2021, 01/14/2021, Additional history exists Colonoscopy 09/28/2023 09/27/2018, 09/11, 07/13/2018, Additional history exists Colorectal Cancer Screening 09/28/2023 Influenza Vaccine (FLU shot) (Season Ended) 2023 11/17/2021, 11/30/2019, 12/27/2018, Additional history exists HbA1c 12/09/2023 06/08/2023, 11/13, 09/08/2022, Additional history exists Albumin/Creatinine Ratio 04/13/2024 024, 04/13/2022, 06/03/2021, Additional history exists Mammogram 05/19/2024 05/20/2023, 01/0 08/2021, 05/12/2017, Additional history exists GFR 06/14/2024 06/15/2023, 040 04/2023, 06/13/2023, Additional history exists O2 ASSESSMENT COMPLETED IN PAST YEAR FOR COPD 07/17/2024 07/18/2023 DTaP,Tdap,and Td Vaccines (3 - Td or Tdap) 07/15/2031 07/14/2021 (Declined), 07/27/2010 Pneumococcal Vaccine: 65+ Years Completed 10/27/2015, 08/08/2014, 05/30/2008 RETIRED - COLONOSCOPY-EVERY 5 YRS AGES 18-100 Discontinued 09/27/2018, 09/27/2018, 07/13/2018, Additional history exists VITAMIN D LEVEL ONCE IN A LIFETIME-USE SMARTSET# [id number] Completed 10/16/2021, 12/27/2018 Alpha-1 Antitrypsin Discontinued GARDASIL-HPV [...] this encounter Medical Devices Implanted Type Area Etiquette Teacher Device Identifier Shelf Expiration Date Model / Serial / Lot Stent Graft Icast [id number] - [id number] - [id number] Implanted:Qty : 1 on 04/14/2022 by Nnamdi King MD [place] [facility] [place] N/A: Mesenteric Artery GETINGE : [id number] 02/21/2023 [id number] / [id number] Description:implanted in SMA Stent Howie 3.0x15 Rx - [id number] Implanted:Qty : 1 on 11/12/2022 by Patrice Jose MD at [facility] [place] [employer] : VASCULAR [id number] 11/28/2023 [id number] / / [id number] Stent R2p Misago 6fr [id number] - [id number] Implanted:Qty : 1 on 07/18/2023 by Nnamdi King MD [place] [facility] [place] Right: [facility] : CARDIO SYS [id number] 09/11/2023 [id number] / / [id number] documented as of this encounter Advance Directives [...] the patient have Health Care Power of Model Set Artist? Yes, in chart and reviewed as current [...] Agents on File Name Relationship Healthcare Agent [facility] p Communication Diamond Braxton [facility] Child Health Care Repr esentative (appointed verbally by patient or by statute hierarchy) Care Teams Precision Lens Polisher Relationship Specialty Start Date End Date Courtney Restrepo MD [address] [place] [address] [place] [address] PCP - General Family Medicine 10/17/19 documented as of this encounter
--- OUTSIDE RECORDS SUMMARY | 2023-08-31 06:18 | External Medical Summary | Summary of Care ---
Author Name Unknown Organization [facility] Address [address] [place] [address] Phone [phone] Care Team Providers Care Nursing Tech Name Role Phone Courtney Restrepo MD Primary Care Prov ider Reason for Visit * Reason Onset Date Comments Advice 05/11/2023 Water weight gai n. Encounter Details Date Type Department Care Team (Late st Contact Info) Description 05/11/2023 Telephone Family Medicine [address] [phone] Courtney Restrepo MD [address] [place] [address] [place] [address] Advice (Water weight gain. ) Allergies Active Allergy Reactions Criticality Noted Date [...] edema Nitroglycerin Hypotension 12/20/2018 Penicillins Nausea/vomiting 05/17/2007 Coosa Hives 10/02/2018 Propoxyphene Edema face/lips/tongue,Hiv es 06/26/2009 documented as of this encounter (statuses as of 08/10/2023) Medications Medication Sig Dispensed Refills Start Date End Date Status busPIRone HCl 15 MG Oral Tablet (Buspar)Indications: Anxiety TAKE ONE TABLET TWICE DAILY 180 Tablet 1 10/15/2022 Active DULoxetine HCl 30 MG Oral Capsule Delayed Release Particles (Cymbalta)Indication s:Chronic midline thoracic back pain,Generalized anxiety disorder Take 1 Capsule by mouth in the morning and 1 Capsule before bedtime. 180 Capsule 2 10/15/2022 Active FunjiTouch Delica Lancets 30GIndications:Type 2 diabetes mellitus with hemoglobin A1c goal of less than 8.0% ([facility]) Use to test glucose daily. E11.9 100 Each 5 11/29/2022 Active FunjiTouch Verio w/Device KitIndications:Type 2 diabetes mellitus with hemoglobin A1c goal of less than 8.0% ([facility]) Use to test glucose daily. E11.9 1 Kit 11/29/2022 Active Trelegy Ellipta 100-62.5-25 MCG/ACT Aerosol Powder Breath ActivatedIndications :COPD, group C, by GOLD 2017 classification ([facility]) Inhale 1 puff as directed once a day 1 inhalation daily. Rinse mouth after every use. 60 Blister Dosing Unit 5 11/29/2022 Active NovoLOG FlexPen 100 UNIT/ML Subcutaneous Solution Pen-injector (insulin aspart)Indications:T ype 2 diabetes mellitus with hemoglobin A1c goal of less than 8.0% ([facility]) Units as per sliding scale 3 mL 3 02/04/2023 Active Insulin Glargine Solostar 100 UNIT/ML Subcutaneous Solution Pen-injector (Lantus SoloStar)Indications :Type 2 diabetes mellitus with hemoglobin A1c goal of less than 8.0% ([facility]) Inject 10 Units under the skin every [...] A1c goal of less than 8.0% ([facility]) Test glucose once daily E11.9 100 Strip 5 02/22/2023 Active Calcium Carbonate 600 MG Oral Tablet (Calcium 600) Take 1 Tablet by mouth 2 times a day with morning and evening meals. (Not TUMS) Active documented as of this encounter (statuses as of 08/10/2023) Active Problems Problem Noted Date Diagnosed Date Ischemic rest pain of lower extremity 07/14/2023 Ulcer of right foot, limited to breakdown of ski n 07/14/2023 Dependent rubor 07/14/2023 Atherosclerosis of [place] artery of extremity Pre-ulcerative corn or callous [...] rinse after steroid. Test performed by Bibiana ANGLE FURNACEMAN CPFT Old [place] (myocardial infarction) 02/21/2019 Bilateral carotid artery stenosis [...] osteoporosis 07/03/2018 Reactive depression 11/17/2017 Atherosclerosis of [place] co ronary artery of [place] heart without angina pectoris 07/22/2015 Overview: Single [...] rinse after steroid. Test performed by Bibiana ANGLE FURNACEMAN CPFT GENERAL OSTEOARTHROSIS BMI 32.0-32.9,adult Tobacco use disorder Hyperlipidemia with target LDL less than 70 Overview: ICD-10 update of inactive term RSD upper limb Overview: left arm Generalized anxiety disorder documented as of this encounter (statuses as of 08/10/2023) Resolved Problems Problem Noted Date Diagnosed Date [...] ISCHEMIC HRT DIS NOS Coronary atherosclerosis of [place] coronary artery 11/24/2016 Tobacco abuse 11/17/2017 documented as of this encounter (statuses as of 08/10/2023) Immunizations Name Administration Dates Next Due COVID-19 [...] Used Date Smoking Tobacco: Every Day Cigarettes 0.3 62 Started: 1962 Smokeless Tobacco: Never Comments:04/06/23 4 cigarette s daily, declined pamphlet Alcohol Use Standard Drinks/Week Comments [...] deaf or do you have serious difficulty h earing? No 01/08/2023 Are you blind or do you have serious difficulty seeing, even when wearing glasses? No 01/08/2023 Do you have serious difficul ty walking or climbing stairs? (5 years old or older) Yes 01/10/2023 Do you have difficulty dress ing or bathing? (5 years old or older) No 01/08/2023 Because of a physical, menta l, or emotional condition, do you have difficulty doing errands alone such as visiting a doctor s office or shopping? (15 years old or older) No 01/09/20 Cognitive Status Response Date of Assessm ent Because of a physical, menta l, or emotional condition, do you have serious difficulty concentrating, remembering, or making decisions? (5 years old or older) No 01/08/2023 documented as of this encounter Miscellaneous Notes * Telephone Encounter - Yanni Charles, VIC - 05/11/2023 10:18 AM EST Pt is calling. Gained 9 pounds in the last 2 days. Reports that she is urinating but is not urinating a lot. Last urinated an hour ago. Pt states that she did urinate a lot last night. Does not feel that Spironolactone 50 mg daily is working. Has swelling to her feet. Was seen by radius corner machine operator yesterday and was diagnosed with Cellulitis to her left foot. Pt was startedon Omadacycline. Reports that she is SOB and feels this way all the time since yesterday. Is not sure where pulse ox is at. Had chest pain last night that only lasted a little bit and then dissipated. After using inhaler this morning, pt coughed up a lot of mucous. Does not know the color. Called PCP office, spoke with Damaris and per PCP, pt is to go to the ER. Pt is aware and agreeable. States that she will go to the ER. * Telephone Encounter - Sophia Caruso OSA - 05/11/2023 10:06 AM EST Pt calling as she has gained 9 pounds in the past 2 days and isn't having much for urine output. She is urinating but not nearly enough. She isn't sure if the water pills are no longer working. She is not to be seen with valve clinic until 06/07 and can't wait that long. Transferred to pcp nurse line as pt has not yet been established with cardio documented in this encounter Plan of Treatment Upcoming Encounters Date Type Department Care Team (Latest Contact Info) Description 08/22/2023 11:20 AM EDT Office Visit Pharmacy, [address] [place] [address] [place] [address] 09/27/2023 9:40 AM EDT Office Visit Family Medicine [address] [place] [phone] Courtney Restrepo MD [address] [place] [address] [place] [address] 10/10/2023 4:00 PM EDT Office Visit [facility], [facility] [address] [facility] [place] [address] Charla Potter MD [address] [place] [address] [place] [id number] 10/12/2023 11:00 AM EDT Office Visit Cardiology, [facility] [address] [facility] [place] [address] Frantz Herrera MD [address] [facility] [place] [address] 12/07/2023 9:20 AM EDT Office Visit Family [address] [place] [address] Courtney Restrepo MD [address] [place] [address] [place] [address] 01/17/2024 10:00 AM EST Hospital Encounter ENDO OSS, Endoscopy Room [facility] [address] [place] [phone] Cassandra Hart MD [address] [place] [address] 01/17/2024 10:00 AM EST - 01/17/2024 10:30 AM EST Surgery ENDO OSS, Endoscopy Room [facility] [address] [place] [phone] Cassandra Hart MD [address] [place] [address] ESOPHAGOGASTRODUODENOSCOPY (EGD), FLEXIBLE, TRANSORAL, DIAGNOSTIC 01/25/2024 10:30 AM EST Imaging Vascular Lab, [facility] 2nd [facility] [address] [facility] [place] [address] 01/25/2024 11:30 AM EST Imaging Vascular Lab, [address] [place] [address] 02/01/2024 11:30 AM EST Office Visit Vascular Surgery, [facility] [address] [place] [address] Nnamdi King MD [address] [place] [facility] [address] 02/08/2024 11:00 AM EST Imaging Radiology, [place] [address] [place] [address] 02/17/2024 10:00 AM EST Office Visit Rheumatology [address] [place] [address] Marshall Romano MD [address] [employer] [place] [id number] Scheduled Procedures Name Priority Associated Diagnoses Date/Ti me ESOPHAGOGASTRODUODENOSCOPY ( EGD), FLEXIBLE, TRANSORAL, DIAGNOSTIC 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 01/17/2024 10:00 AM EST ESOPHAGOGASTRODUODENOSCOPY ( EGD), FLEXIBLE, TRANSORAL, DIAGNOSTIC Recall Pendleton's esophagus Health Maintenance Due Date Last Done Comments DISCUSS TOBACCO CESSATION (REFER TO SMARTSET #4441) 1949 Cologuard 1994 Fecal Occult Blood Test [...] 06/03/2021, Additional history exists Mammogram 05/19/2024 05/20/2023, 08/2021, 05/12/2017, Additional history exists GFR 06/14/2024 06/15/2023, 04/2023, 06/13/2023, Additional history exists O2 ASSESSMENT COMPLETED IN PAST YEAR FOR COPD 07/17/2024 07/18/2023 DTaP,Tdap,and Td Vaccines (3 - Td or Tdap) 07/15/2031 07/14/2021 (Declined), 07/27/2010 Pneumococcal Vaccine: 65+ Years Completed 10/27/2015, 08/08/2014, 05/30/2008 RETIRED - COLONOSCOPY-EVERY 5 YRS AGES 18-100 Discontinued 09/27/2018, 09/27/2018, 07/13/2018, Additional history exists VITAMIN D LEVEL ONCE IN A LIFETIME-USE SMARTSET# 13920 Completed 10/16/2021, 12/27/2018 Alpha-1 Antitrypsin Discontinued GARDASIL-HPV [...] this encounter Medical Devices Implanted Type Area Automobile Locator Device Identifier Shelf Expiration Date Model / Serial / Lot Stent Graft Icast [id number] - [id number] - [id number] Implanted:Qty : 1 on 04/14/2022 by Nnamdi King MD at OR [facility] N/A: Mesenteric Artery GETINGE : MAQUET [id number] 02/21/2023 [id number] / [id number] Description:implanted in SMA Stent [place] 3.0x15 Rx - [id number] Implanted:Qty : 1 on 11/12/2022 by Patrice Jose MD at CARDIAC LABS [facility] MEDTRONIC : VASCULAR [id number] 11/28/2023 [id number] / / [id number] Stent R2p Misago 6fr [id number] - [id number] Implanted:Qty : 1 on 07/18/2023 by Nnamdi King MD at OR [facility] Right: [facility] : CARDIO SYS [id number] 09/11/2023 [id number] / / [id number] documented as of this encounter Advance Directives [...] the patient have Health Care Power of Operations Coordinator? Yes, in chart and reviewed as current [...] patient or by statute hierarchy) Care Teams Nursing Tech Relationship Specialty Start Date End Date Courtney Restrepo MD [address] [place] [address] [place] [address] PCP - General Family Medicine 10/17/19 documented as of this encounter
--- OUTSIDE RECORDS SUMMARY | 2023-08-31 06:18 | External Medical Summary | Summary of Care ---
Author Name Unknown Organization [facility] Address [address] [place] [address] Phone [phone] Care Team Providers Care Bearing Machine Operator Name Role Phone Courtney Restrepo MD Primary Care Prov ider Reason for Visit * Reason Onset Date Comments Appointment 08/09/2023 UPPER ENDOSCOPY Encounter Details Date Type Department Care Team (Late st Contact Info) Description 08/09/[address] [phone] Courtney Restrepo MD [address] [place], [place] [address] [address] Appointment (UPPER ENDOSCOPY) Allergies Active Allergy Reactions Criticality Noted Date [...] edema Nitroglycerin Hypotension 12/20/2018 Penicillins Nausea/vomiting 05/17/2007 Fannin Hives 10/02/2018 Propoxyphene Edema face/lips/tongue,Hiv es 06/26/2009 [...] before bedtime. 180 Capsule 2 10/15/2022 Active Percutaneous Valve Technologies (PVT)Touch Delica Lancets 30GIndications:Type 2 diabetes mellitus with hemoglobin A1c goal of less than 8.0% (HCC) Use to test glucose daily. E11.9 100 Each 5 11/29/2022 Active OneTouch Verio w/Device KitIndications:Type 2 diabetes mellitus with hemoglobin A1c goal of less than 8.0% (HCC) Use to test glucose daily. E11.9 1 Kit 11/29/2022 Active Trelegy Ellipta 100-62.5-25 MCG/ACT Aerosol Powder Breath ActivatedIndications :COPD, group C, by GOLD 2017 classification ([facility]) Inhale 1 puff as directed once a [...] hemoglobin A1c goal of less than 8.0% ([facility]) Test glucose once daily E11.9 100 Strip [...] before bedtime. 60 Tablet 1 06/30/2023 Active Additional Information Patient not taking.Informant: Patient, [...] before bedtime. 90 Capsule 3 07/25/2023 Active Baclofen 5 MG Oral Tablet (Lioresal) Take 1 Tablet by mouth in the morning and 1 Tablet at noon and 1 Tablet before bedtime. As needed for muscle spasm. 30 Tablet 07/26/2023 Active Furosemide 20 MG Oral Tablet (Lasix)Indications:A therosclerosis of [place] artery of left lower extremity with rest [...] Tablet by mouth in the morning. Active documented as of this encounter (statuses as of 08/10/2023) Active Problems Problem Noted Date Diagnosed Date Ischemic rest pain of lower extremity 07/14/2023 Ulcer of right foot, limited to breakdown of ski n 07/14/2023 Dependent rubor 07/14/2023 Atherosclerosis of [place] artery of extremity Pre-ulcerative corn or callous [...] rinse after steroid. Test performed by Bibiana FIRST DYER CPFT Old [place] (myocardial infarction) 02/21/2019 Bilateral carotid artery stenosis [...] osteoporosis 07/03/2018 Reactive depression 11/17/2017 Atherosclerosis of [place] co ronary artery of [place] heart without angina pectoris 07/22/2015 Overview: Single [...] rinse after steroid. Test performed by Bibiana FIRST DYER CPFT GENERAL OSTEOARTHROSIS BMI 32.0-32.9,adult Tobacco use [...] ISCHEMIC HRT DIS NOS Coronary atherosclerosis of [place] coronary artery 11/24/2016 Tobacco abuse 11/17/2017 documented [...] t, Adjuvanted, 65+ yrs 12/27/2018 TDAP (age 11 and older)(Adacel) 07/27/2010 documented as of this encounter Social History Tobacco Use Types Packs/Day Years Used Date Smoking Tobacco: Every Day Cigarettes Smokeless Tobacco: Never Comments:07/14/23 2 packs ciga rettes daily, declined pamphlet Alcohol Use Standard Drinks/Week [...] encounter Miscellaneous Notes * Telephone Encounter - Mikala Childs OSA - 08/10/2023 2:16 PM EDT Pt called and scheduled upper gi with dr hayes for 01/17/24 * Telephone Encounter - Jacki Chavez OSA - 08/09/2023 11:48 AM EDT Tried calling pt, mailbox full. Pt on recall for EGD for Barretts. * Telephone Encounter - Vicente Riley OSA - 08/09/2023 11:11 AM EDT Please call pt to schedule appt documented in this encounter Plan of Treatment Upcoming Encounters Date Type Department Care Team (Latest Contact Info) Description 08/22/2023 11:20 AM EDT Office Visit Pharmacy, [address] [place] [address] [place] [address] 09/27/2023 9:40 AM EDT Office Visit Family Medicine [address] [place] [phone] Courtney Restrepo MD [address] [place] [address] [place] [address] 10/10/2023 4:00 PM EDT Office Visit Nephrology, [address] [place] [address] Charla Potter MD [address] [facility] [place] [address] 10/12/2023 11:00 AM EDT Office Visit Cardiology, [facility] 132 [facility] [place] [address] Frantz Herrera MD [address] [place] [address] 12/07/2023 9:20 AM EDT Office Visit Family [address] [place] [phone] Courtney Restrepo MD [address] [place] [address] [place] [address] 01/17/2024 10:00 AM EST Hospital Encounter ENDO OSS, Endoscopy Room [facility] [address] [place] [phone] Cassandra Hart MD [address] [place] [address] 01/17/2024 10:00 AM EST - 01/17/2024 10:30 AM EST Surgery ENDO [facility], Endoscopy Room [facility] [place] [phone] Cassandra Hart MD [address] [place] [address] ESOPHAGOGASTRODUODENOSCOPY (EGD), FLEXIBLE, TRANSORAL, DIAGNOSTIC 01/25/2024 10:30 AM EST Imaging Vascular Lab, [address] [facility] [place] [address] 01/25/2024 11:30 AM EST Imaging Vascular Lab, [address] [facility] [place] [address] 02/01/2024 11:30 AM EST Office Visit Vascular Surgery, [facility] [address] [facility] [place] [address] Nnamdi King MD [address] [facility] [place] [address] 02/08/2024 11:00 AM EST Imaging Radiology, [address] [place] [address] 02/17/2024 10:00 AM EST Office Visit Rheumatology [address] [place] [phone] Marshall Romano MD [facility] [place] [address] Scheduled Procedures Name Priority Associated Diagnoses Date/Ti me ESOPHAGOGASTRODUODENOSCOPY ( EGD), FLEXIBLE, TRANSORAL, DIAGNOSTIC 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 01/17/2024 10:00 AM EST ESOPHAGOGASTRODUODENOSCOPY ( EGD), FLEXIBLE, TRANSORAL, DIAGNOSTIC Recall Pendleton's esophagus Health Maintenance Due Date Last Done Comments DISCUSS TOBACCO CESSATION (REFER TO SMARTSET #1039) 1949 Cologuard 1994 Fecal Occult Blood Test [...] D LEVEL ONCE IN A LIFETIME-USE SMARTSET# 01586 Completed 10/16/2021, 12/27/2018 Alpha-1 Antitrypsin Discontinued GARDASIL-HPV [...] this encounter Medical Devices Implanted Type Area Dental Hygiene Professor Device Identifier Shelf Expiration Date Model / Serial / Lot Stent Graft Icast [id number] - [id number] - [id number] Implanted:Qty : 1 on 04/14/2022 by Nnamdi King [place] [facility] [place]A: Mesenteric Artery GETINGE : MAQUET [id number] 02/21/2023 [id number] / [id number] / [id number] Description:implanted in SMA Stent Howie 3.0x15 Rx - [id number] Implanted:Qty : 1 on 11/12/2022 by Patrice Jose MD at [facility] [employer] : VASCULAR [id number] 11/28/2023 [id number] / / [id number] Stent R2p Misago 6fr [id number] - [id number] Implanted:Qty : 1 on 07/18/2023 by Nnamdi King MD [place] [facility] Right: [facility] : CARDIO S [id number] 09/11/2023 [id number] / / [id number] documented as of this encounter Advance Directives [...] the patient have Health Care Power of Collections Curator? Yes, in chart and reviewed as current [...] Agents on File Name Relationship Healthcare Agent [facility] p Communication Diamond Braxton Adult Child Health Care Repr esentative (appointed verbally by patient or by statute hierarchy) Care Teams Bearing Machine Operator Relationship Specialty Start Date End Date Courtney Restrepo MD [address] [place] [address] [place] [address] PCP - General Family Medicine 10/17/19 documented as of this encounter
--- OUTSIDE RECORDS SUMMARY | 2023-08-31 06:18 | External Medical Summary | Summary of Care ---
Author Name Unknown Organization [facility] Address [address] [place] [address] Phone [phone] Care Team Providers Care Airborne Operations Name Role Phone Courtney Restrepo MD Primary Care Prov ider Reason for Visit * Reason Comments Follow Up Encounter Details Date Type Department Care Team (Late st Contact Info) Description 08/10/2023 11:50 AM EDT Office Visit Vascular Surgery, [facility] [address] [place] [address] Nnamdi King MD [address] [place] [address] PAD (peripheral artery disease) ([facility])*; Status post below-knee amputation of left lower extremity (HCC); Tobacco use disorder; Hyperlipidemia with target LDL less than 70 Allergies Active Allergy Reactions Criticality Noted Date [...] edema Nitroglycerin Hypotension 12/20/2018 Penicillins Nausea/vomiting 05/17/2007 Gage Hives 10/02/2018 Propoxyphene Edema face/lips/tongue,Hiv es 06/26/2009 [...] before bedtime. 180 Capsule 2 10/15/2022 Active AdduplexToMoPals Delica Lancets 30GIndications:Type 2 diabetes mellitus with hemoglobin A1c goal of less than 8.0% ([facility]) Use to test glucose daily. E11.9 100 Each 5 11/29/2022 Active AdduplexTouch Verio w/Device KitIndications:Type 2 diabetes mellitus with hemoglobin A1c goal of less than 8.0% ([facility]) Use to test glucose daily. E11.9 1 Kit 11/29/2022 Active Trelegy Ellipta 100-62.5-25 MCG/ACT Aerosol Powder Breath ActivatedIndications :COPD, group C, by GOLD 2017 classification ([facility]) Inhale 1 puff as directed once a day 1 inhalation daily. Rinse mouth after every use. 60 Blister Dosing Unit 5 11/29/2022 Active NovoLOG FlexPen 100 UNIT/ML Subcutaneous Solution Pen-injector (insulin aspart)Indications:T ype 2 diabetes mellitus with hemoglobin A1c goal of less than 8.0% ([facility]) Units as per sliding scale 3 mL 3 02/04/2023 Active Insulin Glargine Solostar 100 UNIT/ML Subcutaneous Solution Pen-injector (Lantus SoloStar)Indications :Type 2 diabetes mellitus with hemoglobin A1c goal of less than 8.0% ([facility]) Inject 10 Units under the skin every [...] hemoglobin A1c goal of less than 8.0% ([facility]) Test glucose once daily E11.9 100 [...] 20 MG Oral Tablet (Lasix)Indications:A therosclerosis of [place] artery of left lower extremity with rest [...] by mouth in the morning. 07/28/2023 Active documented as of this encounter (statuses as of 08/10/2023) Active Problems Problem Noted Date Diagnosed Date Ischemic rest pain of lower extremity 07/14/2023 Ulcer of right foot, limited to breakdown of ski n 07/14/2023 Dependent rubor 07/14/2023 Atherosclerosis of [place] artery of extremity Pre-ulcerative corn or callous [...] rinse after steroid. Test performed by Bibiana CYLINDER PRESS OPERATOR HELPER CPFT Old [place] (myocardial infarction) 02/21/2019 Bilateral carotid artery stenosis [...] osteoporosis 07/03/2018 Reactive depression 11/17/2017 Atherosclerosis of [place] co ronary artery of [place] heart without angina pectoris 07/22/2015 Overview: Single [...] rinse after steroid. Test performed by Bibiana CYLINDER PRESS OPERATOR HELPER CPFT GENERAL OSTEOARTHROSIS BMI 32.0-32.9,adult Tobacco use [...] ISCHEMIC HRT DIS NOS Coronary atherosclerosis of [place] coronary artery 11/24/2016 Tobacco abuse 11/17/2017 documented [...] Tobacco: Every Day Cigarettes Smokeless Tobacco: Never Tobacco Cessation:Ready to Q uit: No; Counseling Given: No Comments:08/10/2023 1 pack a day declined pamphlet [...] on file documented as of this encounter Last Filed Vital Signs Vital Sign Reading Time Taken Comments Blood Pressure 98/62 08/10/2023 11:34 AM EDT Pulse 98 08/10/2023 11:34 AM EDT Temperature 36.3 C (97.4 F) 08/10/2023 11:34 AM E DT Respiratory Rate - - Oxygen Saturation - - Inhaled Oxygen Concentration - - Weight - - Height - - Body Mass Index - - documented in this encounter Functional Status Functional Status Response [...] as of this encounter Progress Notes * Kyle Olivares PA-C - 08/10/2023 11:30 AM EDT Images from the original note were not included. Date of Service: 08/10/2023 11:34 AM Carlotta Khan is a 73 year old female. PCP: MD Cassandra Morris MD (Gastroenterology) Kyle Chapa DO (Cardiology) Chief Complaint: Post op return S/P LCFA angioplasty, RSFA & Pop angioplasty & stenting for RLE PVD w/ ischemic ulcer on 07/18/23 via L brachial arterial access by Dr. King Had some post pain @ access site On 07/21/23 pt underwent RUE arterial duplex revealing the following: "Elevated peak systolic velocities are seen in the right subclavian and axillary artery. Complex collection is seen at the site of surgical intervention measuring about 4.4 x 1.8 x 3.2 cm, shows mildperipheral hyperemia with no obvious connection with the vascular structures. Clinical correlation is suggested. Suggest CTA chest and right arm for further evaluation to exclude recent hematoma or arterial narrowing." Accompanied by family members HPI: Dedicated smoker with diffuse vascular disease. CAROTID DISEASE: S/P right CEA in [id number] in [place]. 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 Symptoms were left mouth weakness causing her drool, left arm and leg weakness. During the workup for CVA, an 80-99% right carotid restenosis was noted. S/P redo right CEA by Dr. Bynum 08/19/2008. Has left sided residual UE weakness with hand contracture. Patient denies recent TIA, recent stroke, and recent amaurosis fugax. Carotid duplex at [facility] identified the right internal carotid with ~50% stenosis (heavily calcified) and the left internal carotid with 70-99% stenosis. MESENTERIC ARTERIAL DISEASE: Post prandial abdominal pain since 2014. PmHx including GERD, ulcers, GI bleed. Has required transfusions for GI bleed in the past. No cause was found for the GI bleed despite upper and lower endoscopy. 01/03/20 CTA suggested SMA thrombus, prompting GI to refer to Vascular Surgery. S/P SMA stent 04/14/[address] King for chronic mesenteric ischemia Currently denies post-prandial abdominal pain, weight loss, food fear PERIPHERAL VASCULAR DISEASE: S/P L to R fem-fem bypass in [place] in ~2004 following a cardiac cath that caused her right leg to "go ." On 11/06/2018 she had a thrombectomy of the fem-fem bypass and patch angioplasty of the distal anastamosis (right groin) by Dr. Jara at [facility], performed for ischemic right leg. 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 King on 09/23/2022 for critical limb ischemiawith gangrene right foot with left to right fem-fem bypass graft with stenosis in left external iliac artery Patient admitted to [facility] 11/04-11/24/2022 with sepsis/right 3rd to ulceration. S/P debridement & application of VAC of suprapubic abscess surrounding R>L PTFE Fem-Fem bypass and partial amputation of right 3rd toe due to gangrene on 11/04/[address] King S/P repeat debridement & application of VAC of suprapubic abscess surrounding R>L PTFE Fem-Fem bypass on 11/16/[address] King Hospital course complicated by cardiac arrest x 2 and Covid infection. Cardiac cath demonstrated 90% ostial LAD disease, chronic occlusion of the RCA. S/P PCI/stent to left main/LAD on 11/12/22 Stubbed L 3rd toe in 03/2023 and developed an ulcer, which has failed to heal. 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 King secondary to severe PAD & new left 3rd toe ulcer. LEFT AXILLARY ARTERY OCCLUSION: Had several studies in the past that suggested left axillary occlusion. No discoloration, tissue breakdown or ischemia of left hand. Current Outpatient Medications Medication Sig Dispense Refill busPIRone HCl 15 MG Oral Tablet (Buspar) TAKE ONE TABLET TWICE DAILY 180 Tablet 1 DULoxetine HCl 30 MG Oral Capsule Delayed Release Particles (Cymbalta) Take 1 Capsule by mouth in the morning and 1 Capsule before bedtime. 180 Capsule 2 OneTouch Delica Lancets 30G Use to test glucose daily. E11.9 100 Each 5 OneTouch Verio w/Device Kit Use to test glucose daily. E11.9 1 Kit 0 Trelegy Ellipta 100-62.5-25 MCG/ACT Aerosol Powder Breath Activated Inhale 1 puff as directed once a day 1 inhalation daily. Rinse mouth after every use. 60 Blister Dosing Unit 5 NovoLOG FlexPen 100 UNIT/ML Subcutaneous Solution Pen-injector (insulin aspart) Units as per sliding scale 3 mL 3 Insulin Glargine Solostar 100 UNIT/ML Subcutaneous Solution Pen-injector (Lantus SoloStar) Inject 10 Units under the skin every night at bedtime. Lantus SoloStar Brand Necessary 3 mL 3 Multivitamin Adult (Minerals) Oral Tablet Take by mouth. Vitamin D 125 MCG (5000 UT) Oral Capsule Take 1 Capful by mouth in the morning and 1 Capful before bedtime. Align Extra Strength Oral Capsule Take 1 Capsule by mouth every evening. OneTouch Verio In Vitro Strip (Glucose Blood) Test glucose once daily E11.9 100 Strip 5 Calcium Carbonate 600 MG Oral Tablet (Calcium 600) Take 1 Tablet by mouth 2 times a day with morning and evening meals. (Not TUMS) Polyethylene Glycol 3350 17 GM/SCOOP Oral Powder (MiraLax) Dissolve one heaping tablespoon in 8 ounces of water or juice - one dose per day as needed for severe constipation 225 g 2 Aspirin 81 MG Oral Tablet Chewable Take 1 Tablet by mouth in the morning. 30 Tablet 1 Pantoprazole Sodium 40 MG Oral Tablet Delayed Release (Protonix) TAKE 1 TABLET BY MOUTH 30 MINUTES BEFORE FIRST MEAL AND 1 TABLET BEFORE BEDTIME DO NOT CRUSH, SPLIT, OR CHEW 180 Tablet 3 Sennosides-Docusate Sodium 8.6-50 MG Oral Tablet (Senokot-S) Take 2 Tablets by mouth in the morningand 2 Tablets before bedtime. 60 Tablet 1 Sucralfate 1 GM Oral Tablet (Carafate) Take 1 Tablet by mouth 4 times a day before meals and at bedtime. 120 Tablet 5 Loratadine 10 MG Oral Tablet (Claritin) Take 1 Tablet by mouth in the morning. 90 Tablet 3 Albuterol Sulfate HFA 108 (90 Base) MCG/ACT Inhalation Aerosol Solution Use two puffs four times a day as needed for shortness of breath/wheezing 18 g 3 Gabapentin 300 MG Oral Capsule (Neurontin) Take 1 Capsule by mouth in the morning and 1 Capsule at noon and 1 Capsule before bedtime. 90 Capsule 3 Baclofen 5 MG Oral Tablet (Lioresal) Take 1 Tablet by mouth in the morning and 1 Tablet at noon and1 Tablet before bedtime. As needed for muscle spasm. 30 Tablet 0 Furosemide 20 MG Oral Tablet (Lasix) One daily 30 Tablet 5 Ipratropium-Albuterol 0.5-2.5 (3) MG/3ML Inhalation Solution (Duoneb) Inhale 3 mL by mouth every 4 hours as needed for Shortness of Breath. Clopidogrel Bisulfate 75 MG Oral Tablet (pLAVix) TAKE 1 TABLET BY MOUTH EVERY MORNING 90 Tablet 3 HYDROcodone-Acetaminophen 5-325 MG Oral Tablet Take 1 Tablet by mouth every 6 hours as needed for Pain, Mild or Pain, Severe. 60 Tablet 0 Atorvastatin Calcium 40 MG Oral Tablet (Lipitor) Take 1 Tablet by mouth in the morning. No current facility-administered medications for this visit. Review of patient's allergies indicates: Allergen Reactions Methadone Edema airway Diclofenac Rash Hydrocodone-Acetaminophen Other reaction(s): Constipation Other Reaction(s): Constipation Januvia [Sitagliptin Phosphate] Rash - Blood Blister Metformin Hives Naproxen Edema Other, Itching and Rash Patient reports that after starting naproxen for rib pain, she developed a generalized itchy rash, red sores on her knuckles, and periorbital edema Nitroglycerin Hypotension Penicillins Nausea/vomiting Gage Hives Propoxyphene Edema face/lips/tongue and Hives Patient Active Problem List Diagnosis Moderate persistent asthma without complication GENERAL OSTEOARTHROSIS Cerebrovascular disease, arteriosclerotic, post-stroke ADVANCE DIRECTIVE INFORMATION BMI 32.0-32.9,adult Tobacco use disorder Hyperlipidemia with target LDL less than 70 RSD upper limb Type 2 diabetes mellitus with hemoglobin A1c goal of less than 8.0% ([facility]) Controlled substance agreement signed Generalized anxiety disorder Atherosclerosis of [place] coronary artery of [place] heart without angina pectoris Reactive depression Senile osteoporosis PAD (peripheral artery disease) (HCC) Iron deficiency anemia due to chronic blood loss 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 Chronic superficial gastritis with bleeding Gastrointestinal hemorrhage with melena Lung nodules Moderate mitral regurgitation Old [place] (myocardial infarction) Bilateral carotid artery stenosis DM type 2 with diabetic peripheral neuropathy (HCC) Right hand tendonitis Generalized arthritis Hand arthritis Centrilobular emphysema (HCC) 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 (HCC) Major depressive disorder, recurrent, unspecified (HCC) Non-proliferative diabetic retinopathy, both eyes (HCC) Recurrent major depressive disorder, in partial remission (HCC) Mesenteric ischemia, chronic (HCC) COPD, group D, by GOLD 2017 classification ([facility]) Chronic ischemic heart disease Advanced directives, counseling/discussion Type 2 diabetes mellitus with peripheral artery disease (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) Wound drainage S/P femoral-femoral bypass surgery History of cardiac arrest Shock ([facility]) Lactic acidosis Transaminitis Encephalopathy acute Pathological fracture of vertebra due to osteoporosis with routine healing, subsequent encounter S/P AKA (above knee amputation), left ([facility]) Status post below-knee amputation of left lower extremity ([facility]) Pre-ulcerative corn or callous Ischemic rest pain of lower extremity Ulcer of right foot, limited to breakdown of skin ([facility]) Dependent rubor Atherosclerosis of [place] artery of extremity ([facility]) Past Medical History: Diagnosis Date Asthma, allergic Benign neoplasm of colon 01/2009 3 mm tubular adenoma in sigmoid, f/u colonoscopy in 5 yrs BMI 32.0-32.9,adult Calculus of kidney spontanteous passage Cardiac arrest (HCC) 11/04/2022 history Carotid artery stenosis, asymptomatic left Carotid Stenosis, infarct w/in 8 wks 08/20/2008 Cellulitis of right foot 07/02/2019 [facility] for severe pain, cellulitis right foot Cerebrovascular Dz, 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 Pt with hx of embolic stroke. L hemiplegia Chronic ischemic heart disease Contusion of hand, right 05/21/2016 Coronary atherosclerosis of [place] coronary artery DM type 2, goal A1c below 7 1993 after being on steroids for a while Fracture of three ribs on left side 02/25/2015 left 3,4,5 Generalized anxiety disorder Generalized osteoarthritis Hidradenitis had skin grafts under both arms by Dr Burrell Hyperlipidemia LDL goal < 70 Hypoxia 02/28/2015 Paty, related to hypoventilation from rib fx pain Intracerebral hemorrhage (HCC) 07/03/2008 Need for hepatitis C screening test 08/08/2014 negative Obesity, BMI not known used to weigh 280 Old myocardial infarct x 2 with stent placement OTHER LATE EFFECTS CEREBROVASCULAR DISEASE 07/03/2008 RSD upper limb left arm Scabies 06/07/2017 Treated in [facility]. Senile osteoporosis 07/03/2018 high risk Simple or chronic serous otitis media Chronic Serous Otitis Media Spasm of muscle 11/05/2010 Stroke, acute, within 8 weeks 05/30/2008 L hemiplegia Tobacco use disorder Ulnar nerve lesion neuropathy UNSPEC. HEMIPL. AND HEMIPARESIS AFFECTING NONDOMINANT SIDE 07/03/2008 Unspecified constipation 07/03/2008 Past Surgical History: Procedure Laterality Date AMPUTATION OF LOWER LEG Left 06/07/2023 AMPUTATION LEG THROUGH TIBIA AND FIBULA performed by Nnamdi King MD at OR [facility] ANKLE-BRACHIAL INDEX (CARDIOLOGY) Bilateral 11/03/2018 left 1.0, right 0.32 ANKLE-BRACHIAL INDEX (CARDIOLOGY) Bilateral 12/29/2018 Right 0.73, left 0.9 AORTOGRAM ABDOMINAL-TECH ONLY 04/14/2022 IMAGING SUPERVISION & INTERPRETATION ABDOMINAL AO performed by Nnamdi King MD at OR [facility] APPENDECTOMY W/OTHER PROCEDURE CARDIAC ANGIOPLASTY, PERCUTANEOUS, 1 ARTERY Bilateral 11/12/2022 PTCA, CARDIAC ANGIOPLASTY, PERCUTANEOUS, 1 ARTERY performed by Patrice Jose MD at CARDIAC LABS [facility] COLONOSCOPY THRU STOMA, W/BIOPSY 01/2009 adenomatous polyp, f/u colonoscopy in 5 yrs COLONOSCOPY, DIAGNOSTIC (RECTUM) 07/13/2018 poor prep, repeat 6 mo/COLONOSCOPY FLEXIBLE PROXIMAL DIAGNOSTIC performed by Cassandra Hart MD at ENDOSCOPY [facility] COLONOSCOPY, DIAGNOSTIC (RECTUM) 09/27/2018 6 mm descending tubular adenoma, performed by Cassandra Hart MD at ENDOSCOPY [facility] COMPOSITE SKIN GRAFT b/l axilla, donor site b/l thighs CORONARY ANGIOGRAPHY W/LEFT HEART CATH N/A 11/10/2022 CORONARY ANGIOGRAPHY W/LEFT HEART CATH performed by Patrice Jose MD at CARDIAC LABS [facility] CT ABDOMEN/PELVIS 09/28/[address] CHEST LOW DOSE SCAN LUNG CANCER SCREEN INITIAL 06/04/2017 no nodules, RUL parenchymal density, maybe scar, repeat 3-6 months CTA CHEST NON-CORONARY W CONTRAST 04/01/2015 2 cm spiculated density in RUL, subacute rib fractures, No PE, no Aortic dissection CTA CHEST NON-CORONARY W CONTRAST 09/28/2016 no chest disease, short segment occlusion or near occlusion left axillary artery CTA CHEST/ABDOMEN W CONTRAST 11/16/2018 no acute aortic injury, multiple solid nodules bilaterally greaton on right with upper low predominance, dominant solid spiculated 10 mm RUL nodule EGD, FLEXIBLE, DIAGNOSTIC 09/27/2018 Barretts, gastric irritation, repeat 3 yrs/ESOPHAGOGASTRODUODENOSCOPY (EGD), FLEXIBLE, TRANSORAL, DIAGNOSTIC performed by Cassandra Hart MD at ENDOSCOPY [facility] EGD, FLEXIBLE, DIAGNOSTIC 01/19/2019 gastric irritation on /[facility] EGD, FLEXIBLE, W/BIOPSY 09/27/2018 1 cm salmon colored mucosa suggestive of short segment Pendleton's, mild erythema antrum FEM/POP ARTERY REVASC W/ STENT+ANGIOPLASTY Right 07/18/2023 FEM/POP ARTERY REVASC W/ STENT+ANGIOPLASTY performed by Nnamdi King MD at OR [facility] FEM/POP ARTERY REVASC W/ANGIOPLASTY Left 04/14/2022 FEM/POP ARTERY REVASC W/ANGIOPLASTY performed by Nnamdi King MD at OR [facility] FEM/POP ARTERY REVASC W/ANGIOPLASTY Right 09/23/2022 FEM/POP ARTERY REVASC W/ANGIOPLASTY performed by Nnamdi King MD at OR [facility] FEM/POP ARTERY REVASC W/ANGIOPLASTY Left 07/18/2023 FEM/POP ARTERY REVASC W/ANGIOPLASTY performed by Nnamdi King MD at OR [facility] ILIAC ART. REVASCULARIZATION W/ANGIOPLASTY Left 09/23/2022 ILIAC ARTERY REVASCULARIZATION W/ANGIOPLASTY performed by Nnamdi King MD at OR [facility] IOF VASC CAROTID DUPLEX, BILATERAL 12/06/2012 Right carotid artery duplex examination indicates evidence of a less than 50% stenosis of the internal carotid artery. IR ARTERIOGRAM EXTREMITY BILATERAL 04/14/2022 ANGIOGRAPHY EXTREMITY BILATERAL performed by Nnamdi King MD at OR [facility] IR ARTERIOGRAM EXTREMITY BILATERAL N/A 09/23/2022 ANGIOGRAPHY EXTREMITY BILATERAL performed by Nnamdi King MD at OR [facility] IR ARTERIOGRAM EXTREMITY BILATERAL N/A 07/18/2023 ANGIOGRAPHY EXTREMITY BILATERAL performed by Nnamdi King MD at OR [facility] IR STENT PLACEMENT, INITIAL ARTERY N/A 04/14/2022 NON LOWER EXTREMITY OR CAROTID STENT REVASCULARIZATION WITH RADIOLOGIC SUPERVISION AND INTERPRETATION performed by Nnamdi King MD at OR [facility] MAMMOGRAM SCREENING BILATERAL Bilateral 08/20/2014 almost entirely fat, category 1 normal MAMMOGRAM SCREENING BILATERAL Bilateral 05/12/2017 scattered fibroglandular densities category 1 normal MOBILE DXA 07/03/2018 Lumbar T -0.7, left femur T -2.9, high risk, treatment recommended NEG PRESSURE WOUND THERAPY DME </= 50 SQ CM N/A 11/04/2022 NEGATIVE PRESSURE WOUND THERAPY LESS THAN 50SQ CM performed by Nnamdi King MD at OR [facility] NEG PRESSURE WOUND THERAPY DME </= 50 SQ CM N/A 11/16/2022 NEGATIVE PRESSURE WOUND THERAPY LESS THAN 50SQ CM performed by Nnamdi King MD at OR [facility] NM HEPATOBILIARY SYSTEM WITH PHARMACOLOGIC INTERVENTION 10/18/2018 normal hepatic scan with normal GE ejection fraction PARTIAL AMPUTATION OF TOE Right 11/04/2022 AMPUTATION TOE INTERPHALANGEAL JOINT performed by Nnamdi King MD at OR [facility] PARTIAL HYSTERECTOMY PFT/BA BRONCHODILATOR N/A 03/11/2021 probably normal PFT with some airway reversibility PLACE INTRACORONARY STENT, FIRST VS [id number] REMOVE CATARACT, INSERT LENS PROSTH Left 01/27/2017 Dr Gunter REPAIR OF BLADDER NECK 1994 Dr Montesinos/needed redone due to infection SUBQ DEBRIDEMENT, FIRST 20 CM2 N/A 11/04/2022 DEBRIDEMENT SKIN AND SUBCUTANEOUS TISSUE performed by Nnamdi King MD at OR [facility] SUBQ DEBRIDEMENT, FIRST 20 CM2 N/A 11/16/2022 DEBRIDEMENT SKIN AND SUBCUTANEOUS TISSUE performed by Nnamdi King MD at OR [facility] SYNTH BYPASS, FEM-FEM 2004 fem-fem bypass, [place] THROMBOENDARECTOMY W/PATCH,NECK INCISION [id number] right CEA, [place] THROMBOENDARECTOMY W/PATCH,NECK INCISION 08/19/2008 right redo eversion carotid endarterectomy /Dr. Bynum TOOTH ROOT REMOVAL 01/23/2016 full mouth extraction, Dr Andres TRANSLMAURI BALLOON ANGIOPLASTY OPEN/PERC IMAGE 1ST ARTERY Right 04/14/2022 ANGIOPLASTY ARTERIAL (EXCEPT LOWER EXTREMITY) performed by Nnamdi King MD at OR [facility] US ABDOMEN COMPLETE 08/08/2018 normal VASC DUPLEX CAROTID BILAT Bilateral 08/20/2014 <50% PAIGE, 50-69% LICA stenosis, vertebrals antegrade VIDEO CAPSULE ENDOSCOPY 03/01/2019 unremarkable XR RIBS UNILATERAL W/PA CHEST MINIMUM 3 VIEWS Left 02/25/2015 nondisplaced incomplete cortical fractures posterior lateral left third, fourth and fifth ribs Family History Problem Relation Name Age of Onset Cancer Sister Throat Diabetes Sister Diabetes Brother Stroke Brother Diabetes Grandmother (Maternal) Breast Cancer Niece sister's daughter Eye Problems No significant family history Denies family h/o AMD, RD, glaucoma, or blindness Heart Disorder No significant family history Hypertension No significant family history Thyroid Disorder No significant family history Social History Socioeconomic History Marital status: Spouse name: Kwan Number of children: 3 Years of education: Not on file Highest education level: Not on file Occupational History Occupation: on disability Tobacco Use Smoking status: Every Day Current packs/day: 2.00 Types: Cigarettes Smokeless tobacco: Never Tobacco comments: 07/14/23 2 packs cigarettes daily, declined pamphlet Vaping Use Vaping status: Never Used Substance and Sexual Activity Alcohol use: No Drug use: No Sexual activity: Not on file Other Topics Concern Not on file Social History Narrative >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 H/O CAD s/p PCI and Mitral regurg. H/O cardiac arrest in 2022. Respiratory: Denies shortness of breath Gastrointestinal: Denies BRBPR, H/O GI bleeds, reports reflux, reports peptic ulcers : Denies hematuria Skin: reports chronic R 3rd toe ulcer Neurological: H/O right MCA CVA 2008, reports chronic left sided UE weakness. GENERAL MULTI-SYSTEM PHYSICAL EXAM: VITAL SIGNS: There were no vitals taken for this visit. GENERAL: Normal grooming habits, no acute distress and appears stated age. NECK: No masses. RESPIRATORY: Respiratory effort normal CARDIOVASCULAR: No RLE edema, no L AKA stump edema GASTROINTESTINAL: no tenderness, protuberant LYMPHATIC: cervical lymph nodes normal SKIN: L BKA intact without ulcers. Sutures removed today in clinic. PHOTO Right 3rd toe ulcer with dependent rubor of entire right foot. PHOTO PSYCHIATRIC: orientation to time, place and person normal and recent and remote memory normal. EYES: conjunctivae normal NEUROLOGIC: Motor function grossly intact. Left hand contracture with mild operations director strength weakness. RIGHT FOOT: L BKA: PULSE SCALE: Carotid Right:----Bruit: Yes Left:----Bruit: No Radial Right: 0 Left: 0 Brachial Right: 2 Left: 0 Femoral Right: 1 Left: 0 Popliteal Right: 0 Left: 0 Dorsalis Pedis Right: 0, +Doppler signal Left: BKA Posterior Tibial Right: 0, +Doppler signal Left: BKA PULSE SCALE: 4=Aneurysmal; 3=Normal; 2=Diminished; 1=Barely Palpable; 0=Absent DIAGNOSTIC STUDIES: 08/01/23 FABIANA: 1.21/BKA 08/01/23 LE Graft Duplex: RCFA 81, RDFA 102, RSFA origin 66, RSFA 68/82, R Pop 76/68, R TPT 88, R JEAN PAUL 61, R PIPED POCKET MACHINE OPERATOR 87 The above diagnostic images were directly visualized and independently interpreted by me on 08/10/2023 with results as above 07/14/23: FABIANA:0.77 / L BKA 07/14/23: Graft duplex: RCFA 44, RDFA 134, RSFA 39/393/132/68, R pop 101, SUZANNE prox to L-R fem fem bpg 148, SUZANNE 174, L-R fem fem bpg prox anast 384, bpg 188/52/54, dist anast right side 42, LCFA 449, LDFA 241, LSFA 376/72/90/32, L pop 20/13 05/23/2023 Carotid Duplex PAIGE 170/10 (heavily calcified) and LICA 436/132. 05/23/2023 Mesenteric Duplex: Ao 79, Celiac 134, Fup928, Splenic 83, SMA 117/159/148/164. 05/23/2023 Graft Duplex: L EIA 147, L DIRECTOR VALIDATION 253, L DFA 94 L SFA 379/314/106/100, L Pop 24, inflow 69, L anast 125, BPG 75/68/55, R anast 74, outflow 69, R DIRECTOR VALIDATION 65, R DFA 68, R SFA 58/70/47/153, R Pop 97. 05/23/2023 FABIANA .75/.64. Toe pressures 05/06/2023 L Foot X-Ray: No acute fracture or dislocation. Indeterminate 4 mm lucency of the base ofthe small toe proximal phalanx with apparent cortical erosion, which may represent artifact of obliquity versus lesion. 02/14/23 FABIANA: 1.09/0.73 01/15/2023 CTA with Runoff: 1. Limited exam due to poor opacification of the venous system. 2. No evidence of DVT in the right deep femoral and common femoral veins. Asymmetric decreased opacification right lower extremity deep veins, likely delayed by fem-fem bypass and decreased cardiac function. 3. Asymmetric subcutaneous edema throughout the right lower extremity. No discrete fluid collectionis seen. 4. Diffuse thickening of the urinary bladder with surrounding inflammation which may relate to cystitis. 5. Volume overload with moderate bilateral pleural effusions, diffuse body wall edema and ascites. 08/31/22 FABIANA: 0.59/0.69 NOT accurate medial calcinosis FABIANA flat bilaterally 08/31/22 LLE Art Duplex: LCIA UI, SUZANNE 108, L>R FemFem BPG 40, outflow 47, LCFA just distal to anast 418 05/12/2022 Mesenteric Duplex: CA & prox SMA UI due to bowel gas, mid SMA 163/204, distal SMA 162 05/21/2022 FABIANA: 0.74/0.83 05/21/2022 LLE Art Duplex: L FemFem BPG 53, LCFA 532, LDFA 79, LSFA 174/82/68/108, L pop 20 01/26/2022 Mesenteric Duplex: Celiac UI, Hep 83, SMA 372/123 06/10/20: Mesenteric duplex: Celiac UI, SMA origin/prox UI, Hep UI, Splenic UI, SMA 160/142/140. CT abd/pelvis 03/18/2021: Moderate calcifications of the celiac origin and severe calcificaitons w/ stenosis/near occlusion of the SMA. Patent Fem-Fem PTFE graft 01/03/20 CTA abd/pelvis: celiac and SMA atherosclerosis, SMA thrombus causing narrowing/stenosis 01/25/20 graft duplex: LEI 102, LCF 138, LDF 76, LSFA 120, L anast 140, mid 66, R anast UI, RCF 42,RDF 95, RSFA 82 01/25/20 FABIANA: 03/1401/25/20 CTA: Radiology: no right ICA stenosis (small caliber), left ICA 65-70% at the origin Reviewed CTA with Dr. Rizo. We feel the left ICA lesion stenosis is 50-60%. Lesion is too distal for CEA, would need TCAR. 11/08/19 carotid duplex: R bulb 369/29, PAIGE 157/29, L bulb 330/54, LICA 307/77 LABS: Creatinine Results: Lab Results Component Value Date/Time CREATININE - [facility] 0.7 06/15/2023 07:20 AM CREATININE - [facility] 0.6 06/14/2023 06:01 AM CREATININE - [facility] 0.8 06/13/2023 07:23 AM CREATININE - [facility] 0.8 04/09/2020 01:42 PM CREATININE - [facility] 0.8 01/01/2020 01:27 PM CREATININE - [facility] 0.9 12/26/2019 11:22 AM CREATININE MATILDA 19 04/09/2020 01:56 PM CREATININE MATILDA - [facility] 59 11/17/2021 02:54 PM CREATININE, RANDOM URINE - [facility] 151 04/13/2023 10:12 AM CREATININE, RANDOM URINE - [facility] 136 01/18/2023 04:37 PM CREATININE, RANDOM URINE - [facility] 135 01/18/2023 04:37 PM CREATININE, RANDOM URINE - [facility] 64 12/07/2019 03:43 PM CREATININE, RANDOM URINE - [facility] 61 12/27/2018 01:41 PM CREATININE, RANDOM URINE - [facility] 25 11/24/2016 02:29 PM CREATININE-OUTSIDE LAB 0.94 05/11/2023 12:00 AM CREATININE-OUTSIDE LAB 1.02 03/10/2023 12:00 AM CREATININE-OUTSIDE LAB 0.82 01/26/2023 12:00 AM Lab Results Component Value Date/Time LDL CHOLESTEROL (CALCULATED) - [facility] 84 12/10/2022 01:18 PM LDL CHOLESTEROL (CALCULATED) - [facility] 110 04/09/2020 01:42 PM LDL CHOLESTEROL (DIRECT MEASURE) - [facility] 74 06/03/2021 02:45 PM LDL CHOLESTEROL (DIRECT MEASURE) - [facility] NOT APPLICABLE 04/09/2020 01:42 PM LDL CHOLESTEROL (DIRECT MEASURE) - [facility] 75 06/25/2010 01:30 PM Hemoglobin Results: Lab Results Component Value Date/Time HGB 11.3 (L) 06/15/2023 07:20 AM HGB 11.5 (L) 06/14/2023 06:01 AM HGB 11.6 (L) 06/13/2023 07:23 AM HGB 13.8 05/11/2023 12:00 AM HGB 12.7 03/10/2023 12:00 AM HGB 8.8 (A) 01/26/2023 12:00 AM HGB 12.8 01/01/2020 01:27 PM HGB 8.9 (L) 10/29/2019 01:10 PM HGB 8.5 (L) 10/18/2019 07:47 AM The above clinical lab tests were reviewed by me on 08/10/23 CARDIAC STUDIES: 12/01/2022 ECHO ([facility]) 11/13/2023 Card Cath: Ostial LAD with 95% stenosis s/p IVUS guided PCI. IVUS showed critical stenosisat the ostium of LAD. LM-LAD stented with [id number] Howie stent. Mid portion post dilated with 3.0mm NC at 19 yo and proximal stent post dilated with 4.0mm NC balloon. Final angiogram showed resolution of stenosis and DOROTEO III flow. CONCEPCION Stenting IVUS or OCT initial IVUS or OCT each additional. 11/11/2022 ECHO: Limited study as patient was hypotensive during the AYLIN. The qualitative LV ejection fraction is 50-54% (normal). The right ventricular cavity size is qualitatively normal. The right ventricular systolic function is qualitatively normal. The transmitral diastolic gradient is ~5 mm Hg at a heart rate of 95 bpm. Mitral stenosis is absent. At a systolic blood pressure of 90 mm Hg there is moderate-severe secondary mitral regurgitation. PISA measurements support severe MR. Mild tricuspid regurgitation is present. IMPRESSIONS: S/P LCFA angioplasty, RSFA & Pop angioplasty & stenting for RLE PVD w/ ischemic ulcer on 07/18/23 via L brachial arterial access by Dr. King Improved right FABIANA and patent RLE on post op duplex. No LLE imaging done S/P left BKA on 06/07/[address] King secondary to severe PAD & non-healing left 3rd toe ulcer. S/P debridement & application of VAC of suprapubic abscess surrounding L to R PTFE Fem-Fem bypass and partial amputation of right 3rd toe due to gangrene on 11/04/[address] King S/P repeat debridement & application of VAC of suprapubic abscess surrounding L to R PTFE Fem-Fem bypass on 11/16/[address] King. Suprapubic wound healed Nov 2022 Hospital course complicated by cardiac arrest x 2 and Covid infection. Cardiac cath demonstrated 90% ostial LAD disease, chronic occlusion of the RCA. AYLIN demonstrated severe mitral regurgitation, ejection fraction 50%. Pt seen by Cardiac Surgery. She declined CABG and MVR due to high risk for surgery. S/P PCI to left main/LAD on 11/12/22 Cultures revealed Kayla and placed on oral Fluconazole and IV Zosyn (via R arm PICC), completed 12/16/22 S/P angioplasties of SUZANNE and RSFA/Pop Artery on 09/23/[address] King for critical limb ischemiawith gangrene right foot with left to right fem-fem bypass graft with stenosis in left external iliac artery S/P thrombectomy of the fem-fem bypass and patch angioplasty of the distal anastamosis (right groin) by Dr. Jara at [facility] on 11/06/18, performed for ischemic right leg. Left to right fem-fem bypass in [place] in approximately 2004. S/P SMA stent and angioplasty of LCFA on 04/14/[address] 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 King for LFA stenosis (status post [id number] bypass grafting). Redo R CEA <50% stenosis, heavily calcified, asymptomatic and stable, per 05/23/23 duplex. Asymptomatic, stable LICA 70-99% stenosis, per 05/23/23 duplex. S/P redo right CEA by Dr. Bynum 08/19/2008 (initial right CEA in [place]); R MCA infarction 05/20 with hemorrhagic conversion 06/20. Residual left UE weakness with hand contracture. Left axillary artery occlusion, asymptomatic. CAD, h/o 11/12/2022 PCI/stent to LM/LAD [facility] Cardiac Surgery declined CABG/MVR due to high risk for surgery Moderate Mitral Regurg per ECHO. Dyslipidemia. Tobacoc dependency. Lung nodule per 01/2020 CTA. COPD/Emphysema COVID 11/2022 DM. H/O GI bleed. Anemia. PLAN: The patient was counseled regarding the pathophysiology and natural history of peripheral vascular disease, as well as the interventional and noninterventional therapeutic options. In regards to L BKA: - Stump director supplier quality and prosthesis scripts placed in EPIC - OK to proceed with contacting local prosthesis company In regards to mesenteric disease: - SMA stent remains patent, per 05/23/23 duplex - Remains asymptomatic - Will manage medically with routine surveillance imaging In regards to carotid disease: - Re-do RCEA remains patent and stable severe LICA stenosis - Given age and multiple comorbidities would not offer intervention given that she is asymptomatic at this time Obtain BP in right arm given LUE arterio-occlusive disease RTC in 6 months with FABIANA and BLE arterial graft duplex, 1-2 2 wks prior to that next visit The patient was seen and examined with MD Kyle Steven PA-C I have reviewed the advanced practitioner's documentation on the date of service referenced in note, and I agree with, and take responsibility for the plan of care. Dependent rubor resolved since right sfa/pop angioplasty and inflow angioplasty VASC labs look great Right arm looks great Will see again in 6 months with repeat vasc labs Prosthetic limb ordered. Nnamdi King MD Section of Vascular and [place] [address] [phone] documented in this encounter Plan of Treatment Upcoming Encounters Date Type Department Care Team (Late st Contact Info) Description 08/22/2023 11:20 AM EDT Office Visit Pharmacy, [address] [place] [id number] [place] [address] 09/27/2023 9:40 AM EDT Office Visit Family Medicine [address] [place] [phone] Courtney Restrepo MD [address] [place] [address] [place] [address] 10/10/2023 4:00 PM EDT Office Visit Nephrology, [address] [place] [address] Charla Potter MD [address] [place] [address] 10/12/2023 11:00 AM EDT Office Visit Cardiology, [facility] [address] [place] [address] Frantz Herrera MD [address] [place], [place] [id number] 12/07/2023 9:20 AM EDT Office Visit Family Medicine [address] [place] [phone] Courtney Restrepo MD [address] [place] [address] [place] [address] 01/25/2024 10:30 AM EST Imaging Vascular Lab, [address] [place] [address] 01/25/2024 11:30 AM EST Imaging Vascular Lab, [address] [address] 02/01/2024 11:30 AM EST Office Visit Vascular Surgery, [address] [address] Nnamdi King MD [address] [place] [address] 02/08/2024 11:00 AM EST Imaging Radiology, [place] [id number] [facility] [place] [address] 02/17/2024 10:00 AM EST Office Visit Rheumatology [address] [place] [phone] Marshall Romano MD [address] [facility] [place] [id number] Scheduled Orders Name Type Priority Associated Diagnoses Orde r Schedule VASC ANKLE BRACHIAL INDICES WITHOUT PPG (PAD) Medical Imaging Routine PAD (peripheral artery disease) (HCC) Status post below-knee amputation of left lower extremity (HCC) Tobacco use disorder Hyperlipidemia with target LDL less than 70 Ordered: 08/10/2023 VASC ENTERPRISE ART DUP BILAT LE Medical Imaging Routine PAD (peripheral artery disease) (HCC) Status post below-knee amputation of left lower extremity (HCC) Tobacco use disorder Hyperlipidemia with target LDL less than 70 Ordered: 08/10/2023 Scheduled Procedures Name Priority Associated Diagnoses Date/Ti me ESOPHAGOGASTRODUODENOSCOPY ( EGD), FLEXIBLE, TRANSORAL, DIAGNOSTIC Recall Pendleton's esophagus Health Maintenance Due Date Last Done Comments DISCUSS TOBACCO CESSATION (REFER TO SMARTSET #3235) 1949 Cologuard 1994 Fecal Occult Blood Test [...] D LEVEL ONCE IN A LIFETIME-USE SMARTSET# 01746 Completed 10/16/2021, 12/27/2018 Alpha-1 Antitrypsin Discontinued GARDASIL-HPV [...] this encounter Medical Devices Implanted Type Area Blueprint Clerk Device Identifier Shelf Expiration Date Model / Serial / Lot Stent Graft Icast [id number] - [id number] - [id number] Implanted:Qty : 1 on 04/14/2022 by Nnamdi King MD at OR [facility] N/A: Mesenteric Artery GETINGE : VITOR [id number] 02/21/2023 [id number] / [id number] / [id number] Description:implanted in SMA Stent Howie 3.0x15 Rx - [id number] Implanted:Qty : 1 on 11/12/2022 by Patrice Jose MD at CARDIAC LABS [facility] [employer] : VASCULAR [id number] 11/28/2023 [id number] / / [id number] Stent R2p Misago 6fr [id number] - [id number] Implanted:Qty : 1 on 07/18/2023 by Nnamdi King MD at OR [facility] Right: [facility] MEDICAL : CARDIO SYS [id number] 09/11/2023 [id number] / / [id number] documented as of this encounter Visit Diagnoses Diagnosis PAD (peripheral artery disease) (HCC)- Primary Peripheral vascular disease, unspecified Status post below-knee amputation of left lower extremity (HCC) Tobacco use disorder Hyperlipidemia with target LDL less than 70 Other and unspecified hyperlipidemia documented in this encounter Advance Directives * [...] the patient have Health Care Power of Tire Maker? Yes, in chart and reviewed as current [...] patient or by statute hierarchy) Care Teams Airborne Operations Relationship Specialty Start Date End Date Courtney Restrepo MD [address] [place] [address] [place] [address] PCP - General Family Medicine 10/17/19 documented as of this encounter
--- OUTSIDE RECORDS SUMMARY | 2023-08-31 06:18 | External Medical Summary | Summary of Care ---
Author Name Unknown Organization [facility] Address [address] [place] [address] Phone [phone] Care Team Providers Care Storage Garage Attendant Name Role Phone Courtney Restrepo MD Primary Care Prov ider Reason for Visit * Reason Comments Dosage Adjustment In Person (Anticoag Cl inic) Diabetes Follow-Up Encounter Details Date Type Department Care Team (Late st Contact Info) Description 08/22/2023 3:00 PM EDT Office Visit Pharmacy, [address] [place] [address] [place] [address] Type 2 diabetes mellitus with hemoglobin A1c goal of less than 8.0% ([facility])* Allergies Active Allergy Reactions Criticality Noted Date [...] edema Nitroglycerin Hypotension 12/20/2018 Penicillins Nausea/vomiting 05/17/2007 [place] Hives 10/02/2018 Propoxyphene Edema face/lips/tongue,Hiv es 06/26/2009 documented as of this encounter (statuses as of 08/22/2023) Medications Medication Sig Dispensed Refills Start Date End Date Status busPIRone HCl 15 MG Oral Tablet (Buspar)Indications: Anxiety TAKE ONE TABLET TWICE DAILY 180 Tablet 1 10/15/2022 Active DULoxetine HCl 30 MG Oral Capsule Delayed Release Particles (Cymbalta)Indication s:Chronic midline thoracic back pain,Generalized anxiety disorder Take 1 Capsule by mouth in the morning and 1 Capsule before bedtime. 180 Capsule 2 10/15/2022 Active H.BLOOMTouch Delica Lancets 30GIndications:Type 2 diabetes mellitus with hemoglobin A1c goal of less than 8.0% (HCC) Use to test glucose daily. E11.9 100 Each 5 11/29/2022 Active H.BLOOMTouch Verio w/Device KitIndications:Type 2 diabetes mellitus with hemoglobin A1c goal of less than 8.0% ([facility]) Use to test glucose daily. E11.9 1 Kit 11/29/2022 Active Trelegy Ellipta 100-62.5-25 MCG/ACT Aerosol Powder Breath ActivatedIndications :COPD, group C, by GOLD 2017 classification ([facility]) Inhale 1 puff as directed [...] hemoglobin A1c goal of less than 8.0% ([facility]) Test glucose once daily E11.9 [...] 20 MG Oral Tablet (Lasix)Indications:A therosclerosis of [place] artery of left lower extremity with rest [...] As needed for muscle spasm. 30 Tablet 08/11/2023 Active documented as of this encounter (statuses as of 08/22/2023) Active Problems Problem Noted Date Diagnosed Date Ischemic rest pain of lower extremity 07/14/2023 Ulcer of right foot, limited to breakdown of ski n 07/14/2023 Dependent rubor 07/14/2023 Atherosclerosis of [place] artery of extremity Pre-ulcerative corn or callous [...] rinse after steroid. Test performed by Bibiana PLASTER MAKER CPFT Old ID (myocardial infarction) 02/21/2019 Bilateral carotid artery stenosis [...] osteoporosis 07/03/2018 Reactive depression 11/17/2017 Atherosclerosis of [place] co ronary artery of [place] heart without angina pectoris 07/22/2015 Overview: Single [...] rinse after steroid. Test performed by Bibiana PLASTER MAKER CPFT GENERAL OSTEOARTHROSIS BMI 32.0-32.9,adult Tobacco use disorder Hyperlipidemia with target LDL less than 70 Overview: ICD-10 update of inactive term RSD upper limb Overview: left arm Generalized anxiety disorder documented as of this encounter (statuses as of 08/22/2023) Resolved Problems Problem Noted Date Diagnosed Date [...] ISCHEMIC HRT DIS NOS Coronary atherosclerosis of [place] coronary artery 11/24/2016 Tobacco abuse 11/17/2017 documented as of this encounter (statuses as of 08/22/2023) Immunizations Name Administration Dates Next Due COVID-19 [...] as of this encounter Progress Notes * Zenia Goldberg, [facility] - 08/22/2023 2:53 PM EDT Medication Therapy Disease Management Clinic - Diabetes Management Progress Note Carlotta Khan, identified by name and date of , is a 73 year old female being seen for diabetes management/education. Patient presents for return diabetic visit/Dexcom placement Patient presents with Diamond (kuldeeper) Dexcom G7: Patient Education and Review Patient provided G7 CGM components and training manual. Reviewed the following information with patient using provided surgery scheduling coordinator literature: Introduced CGM and components How to set up display device (cell phone with Dexcom [id number]) Follow the onscreen instructions on business technology architect or appt to enter: Low and high alerts Sensor code Insert sensor Choose sensor site Insert sensor with applicator Pair sensor Wait for sensor to pair Tap start sensor No readings during the 30 minute warmup Keep display device within 20 feet during warmup Home screen overview Review home screen overview in using your G7 with patient Home screen shows Sensor glucose readings Trend arrow Trend graph High and low alerts Treatment decisions Review treatment decisions in using your G7 with patient Use your meter if: Your G7 readings don't match your symptoms Your G7 doesn't show both a number and an arrow Ending Sensor Session Review ending your sensor session in using your G7 with patient Remove sensor from body Patient set up personal device and self-inserted sensor and transmitter in office independently of pharmacist involvement other than for material review and support. Considerations: Left BKA on 06/07/23 d/t severe PAD Dexcom G7 - [facility] [phone] Diabetic Medications: Novolog 8 units before meals Lantus 11 units at bedtime eGFR >90 as of 06/15/23 FOLLOW UP: Return to clinic in 2 weeks 09/07/2023 Zenia Goldberg RPh Clinical Pharmacist - Wireless Telegrapher Medication Therapy Management Clinic 08/22/2023, 2:53 PM documented in this encounter Plan of Treatment Upcoming Encounters Date Type Department Care Team (Latest Contact Info) Description 09/07/2023 1:10 PM EDT Office Visit Pharmacy, [address] [place] [address] [place] [address] 09/27/2023 9:40 AM EDT Office Visit Family Medicine [address] [phone] Courtney Restrepo MD [address] [place] [address] [place] [address] 10/10/2023 4:00 PM EDT Office Visit Nephrology, [facility] [address] [place] [address] Charla Potter MD [address] [place] [address] 10/12/2023 11:00 AM EDT Office Visit Cardiology, [facility] [address] [place] [address] Frantz Herrera MD [address] [place] [address] 12/07/2023 9:20 AM EDT Office Visit Family [address] [place] [phone] Courtney Restrepo MD [address] [place] [address] [place] [address] 01/17/2024 10:00 AM EST Hospital Encounter ENDO [facility], Endoscopy Room [facility] [address] [place] [phone] Cassandra Hart MD [address] [place] [address] 01/17/2024 10:00 AM EST - 01/17/2024 10:30 AM EST Surgery ENDO [facility], Endoscopy Room [facility] [address] [place] [phone] Cassandra Hart MD [address] [place] [address] ESOPHAGOGASTRODUODENOSCOPY (EGD), FLEXIBLE, TRANSORAL, DIAGNOSTIC 01/25/2024 10:30 AM EST Imaging Vascular Lab, [address] [place] [address] 01/25/2024 11:30 AM EST Imaging Vascular Lab, [address] [place] [address] 02/01/2024 11:30 AM EST Office Visit Vascular Surgery, [address] [place] [address] Nnamdi King MD [address] [place] [address] 02/08/2024 11:00 AM EST Imaging Radiology, [address] [place] [address] 02/17/2024 10:00 AM EST Office Visit [address] [place] [phone] Marshall Romano MD [address] [place] [address] [place] [address] Scheduled Procedures Name Priority Associated Diagnoses Date/Ti [...] Surveilance 01/19/2022 01/19/2019, 09/27/2018, 09/27/2018 COVID-19 Vaccine (24 season) 2022 07/14/2021, 08/12/2020, 07/15/2020 Diabetic Eye [...] D LEVEL ONCE IN A LIFETIME-USE SMARTSET# [id number] Completed 10/16/2021, 12/27/2018 Alpha-1 Antitrypsin Discontinued GARDASIL-HPV [...] this encounter Medical Devices Implanted Type Area Glass Decorator Device Identifier Shelf Expiration Date Model / Serial / Lot Stent Graft Icast [id number] - [id number] - [id number] Implanted:Qty : 1 on 04/14/2022 by Nnamdi King MD [place] [facility] [place]: Mesenteric Artery GETINGE : MAQUET [id number] 02/21/2023 [id number] / [id number] / [id number] Description:implanted in SMA Stent Howie 3.0x15 Rx - [id number] Implanted:Qty : 1 on 11/12/2022 by Patrice Jose MD at [facility] [employer] : VASCULAR [id number] 11/28/2023 [id number] / / [id number] Stent R2p Misago 6fr [id number] - [id number] Implanted:Qty : 1 on 07/18/2023 by Nnamdi King MD [place] [facility] Right: [employer] : CARDIO SYS [id number] 09/11/2023 [id number] / / [id number] documented as of this encounter Visit Diagnoses Diagnosis Type 2 diabetes mellitus with hemoglobin A1c goal of less than 8.0% (HCC)- Primary 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 Pendleton's esophagus documented [...] the patient have Health Care Power of Mortgage Closing Clerk? Yes, in chart and reviewed as current [...] patient or by statute hierarchy) Care Teams Storage Garage Attendant Relationship Specialty Start Date End Date Courtney Restrepo MD [address] [place] [address] [place] [address] PCP - General Family Medicine 10/17/19 documented as of this encounter
--- OUTSIDE RECORDS SUMMARY | 2023-08-31 06:18 | External Medical Summary | Summary of Care ---
Author Name Unknown Organization [facility] Address [address] [place] [address] Phone [phone] Care Team Providers Care Smoke Jumper Name Role Phone Courtney Restrepo MD Primary Care Prov ider Reason for Visit * Reason Onset Date Comments Medication Management 08/25/2023 Encounter Details Date Type Department Care Team (Late st Contact Info) Description 08/25/2023 Telephone Family [address] [phone] Courtney Restrepo MD [address] [place] [address] [place] [id number] Medication Management Allergies Active Allergy Reactions [...] edema Nitroglycerin Hypotension 12/20/2018 Penicillins Nausea/vomiting 05/17/2007 [place] Hives 10/02/2018 Propoxyphene Edema face/lips/tongue,Hiv es 06/26/2009 [...] before bedtime. 180 Capsule 2 10/15/2022 Active Genoa PharmaceuticalsTouch Delica Lancets 30GIndications:Type 2 diabetes mellitus with hemoglobin A1c goal of less than 8.0% (HCC) Use to test glucose daily. E11.9 100 Each 5 11/29/2022 Active Genoa PharmaceuticalsTouch Verio w/Device KitIndications:Type 2 diabetes mellitus with hemoglobin A1c goal of less than 8.0% (HCC) Use to test glucose daily. E11.9 1 Kit 11/29/2022 Active Trelegy Ellipta 100-62.5-25 MCG/ACT Aerosol Powder Breath ActivatedIndications :COPD, group C, by GOLD 2017 classification ([facility]) Inhale 1 puff as directed once a [...] A1c goal of less than 8.0% ([facility]) Test glucose once daily E11.9 100 Strip [...] 20 MG Oral Tablet (Lasix)Indications:A therosclerosis of [place] artery of left lower extremity with rest pain ([facility]),DM type 2 with diabetic peripheral neuropathy (HCC) [...] n 07/14/2023 Dependent rubor 07/14/2023 Atherosclerosis of [place] artery of extremity Pre-ulcerative corn or callous [...] rinse after steroid. Test performed by Bibiana STONE DRILLER CPFT Old MO (myocardial infarction) 02/21/2019 Bilateral carotid artery stenosis [...] osteoporosis 07/03/2018 Reactive depression 11/17/2017 Atherosclerosis of [place] co ronary artery of [place] heart without angina pectoris 07/22/2015 Overview: Single [...] rinse after steroid. Test performed by Bibiana STONE DRILLER CPFT GENERAL OSTEOARTHROSIS BMI 32.0-32.9,adult Tobacco use [...] ISCHEMIC HRT DIS NOS Coronary atherosclerosis of [place] coronary artery 11/24/2016 Tobacco abuse 11/17/2017 documented [...] encounter Miscellaneous Notes * Telephone Encounter - Margret Potts OSA [...] she just got done speaking with a [facility] Pharmacist for a medication review. States that [...] 4:20 PM EDT Office Visit Family [address] [place] [phone] Eben Obregon CRNP [address] [place] [address] [place] [phone] 09/07/2023 1:10 PM EDT Office Visit Pharmacy, [address] [place] [address] [place] [address] 09/27/2023 9:40 AM EDT Office Visit Family [address] [place] [phone] Courtney Restrepo MD [address] [place] [address] [place] [address] 10/10/2023 4:00 PM EDT Office Visit Nephrology, [address] [place] [address] Charla Potter MD [address] [place] [address] 10/12/2023 11:00 AM EDT Office Visit Cardiology, [facility] 132 [facility] [place] [address] Frantz Herrera MD [address] [place] [address] 12/07/2023 9:20 AM EDT Office Visit Family [address] [place] [phone] Courtney Restrepo MD [address] [place] [address] [place] [address] 01/17/2024 10:00 AM EST Hospital Encounter ENDO [facility], Endoscopy Room [facility] [address] [place] [phone] Cassandra Hart MD 132 [facility] [place] [address] 01/17/2024 10:00 AM EST - 01/17/2024 10:30 AM EST Surgery ENDO [facility], Endoscopy Room [facility] 132 [facility] [place] [phone] Cassandra Hart [facility] [place] [address] ESOPHAGOGASTRODUODENOSCOPY (EGD), FLEXIBLE, TRANSORAL, DIAGNOSTIC 01/25/2024 10:30 AM EST Imaging Vascular Lab, [address] [facility] [address] 01/25/2024 11:30 AM EST Imaging Vascular Lab, [address] 132 [facility] [place] [address] 02/01/2024 11:30 AM EST Office Visit [facility]ascular Surgery, [facility] [address] Nnamdi King MD [address] [place] [address] 02/08/2024 11:00 AM EST Imaging Radiology, [address] [place] [address] 02/17/2024 10:00 AM EST Office Visit [address] [place] [phone] Marshall Romano MD [facility] [place], [place] [address] Scheduled Procedures Name Priority Associated Diagnoses Date/Ti sd ESOPHAGOGASTRODUODENOSCOPY ( EGD), FLEXIBLE, TRANSORAL, DIAGNOSTIC 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 01/17/2024 10:00 AM EST ESOPHAGOGASTRODUODENOSCOPY ( EGD), FLEXIBLE, TRANSORAL, DIAGNOSTIC Recall Pendleton's esophagus Health Maintenance Due Date Last Done Comments DISCUSS TOBACCO CESSATION (REFER TO SMARTSET #5414) 1949 Cologuard 1994 Fecal Occult Blood Test [...] D LEVEL ONCE IN A LIFETIME-USE SMARTSET# [id number] Completed 10/16/2021, 12/27/2018 Alpha-1 Antitrypsin Discontinued GARDASIL-HPV [...] this encounter Medical Devices Implanted Type Area Operations Examiner Device Identifier Shelf Expiration Date Model / Serial / Lot Stent Graft Icast [id number] - [id number] - [id number] Implanted:Qty : 1 on 04/14/2022 by Nnamdi King MD at [place] [facility] N/A: Mesenteric Artery GETINGE : MAVESTA [id number] 02/21/2023 [id number] / [id number] / [id number] Description:implanted in SMA Stent Howie 3.0x15 Rx - [id number] Implanted:Qty : 1 on 11/12/2022 by Patrice Jose MD at [facility]ARDI[facility] [employer] : VASCULAR [id number] 11/28/2023 [id number] / / [id number] Stent R2p Misago 6fr [id number] - [id number] Implanted:Qty : 1 on 07/18/2023 by Nnamdi King MD at OR [facility] Right: [facility] [employer] : CARDIO SYS [id number] 09/11/2023 [id number] / / [id number] documented as of this encounter Advance Directives [...] the patient have Health Care Power of Drupal Developer? Yes, in chart and reviewed as current [...] patient or by statute hierarchy) Care Teams Smoke Jumper Relationship Specialty Start Date End Date Courtney Restrepo MD [address] [place] [address] [place] [address] PCP - General Family Medicine 10/17/19 documented as of this encounter
--- OUTSIDE RECORDS SUMMARY | 2023-08-31 06:19 | External Medical Summary | Summary of Care ---
Author Name Unknown Organization [facility] Address [address] [place] [address] Phone [phone] Care Team Providers Care Ur Coordinator Name Role Phone Courtney Restrepo MD Primary Care Prov ider Reason for Visit * Reason Onset Date Comments Appointment 08/09/2023 UPPER ENDOSCOPY Encounter Details Date Type Department Care Team (Late st Contact Info) Description 08/09/[address] [phone] Courtney Restrepo MD [address] [place], [place] [address] [address] Appointment (UPPER ENDOSCOPY) Allergies Active Allergy [...] edema Nitroglycerin Hypotension 12/20/2018 Penicillins Nausea/vomiting 05/17/2007 [place] Hives 10/02/2018 Propoxyphene Edema face/lips/tongue,Hiv es 06/26/2009 documented as of this encounter (statuses as of 08/09/2023) Medications Medication Sig Dispensed Refills Start Date End Date Status busPIRone HCl 15 MG Oral Tablet (Buspar)Indications: Anxiety TAKE ONE TABLET TWICE DAILY 180 Tablet 1 10/15/2022 Active DULoxetine HCl 30 MG Oral Capsule Delayed Release Particles (Cymbalta)Indication s:Chronic midline thoracic back pain,Generalized anxiety disorder Take 1 Capsule by mouth in the morning and 1 Capsule before bedtime. 180 Capsule 2 10/15/2022 Active AgilysTouch Delica Lancets 30GIndications:Type 2 diabetes mellitus with [...] by GOLD 2017 classification ([facility]) Inhale 1 puff as directed once [...] of less than 8.0% ([facility]) Test glucose once daily E11.9 100 [...] 20 MG Oral Tablet (Lasix)Indications:A therosclerosis of [place] artery of left lower extremity with rest [...] as of this encounter (statuses as of 08/09/2023) Active Problems Problem Noted Date Diagnosed Date Ischemic rest pain of lower extremity 07/14/2023 Ulcer of right foot, limited to breakdown of ski n 07/14/2023 Dependent rubor 07/14/2023 Atherosclerosis of [place] artery of extremity Pre-ulcerative corn or callous [...] COPD, group D, by GOLD 2017 classification 12/12 /2022 Overview: Per COPD GOLD Classification Mesenteric ischemia, [...] rinse after steroid. Test performed by Bibiana AUTOMATIC VULCANIZING OPERATOR CPFT Old ID (myocardial infarction) 02/21/2019 Bilateral [...] osteoporosis 07/03/2018 Reactive depression 11/17/2017 Atherosclerosis of hughes co ronary artery of hughes heart without angina pectoris 07/22/2015 Overview: Single [...] rinse after steroid. Test performed by Bibiana AUTOMATIC VULCANIZING OPERATOR CPFT GENERAL OSTEOARTHROSIS BMI 32.0-32.9,adult Tobacco use disorder Hyperlipidemia with target LDL less than 70 Overview: ICD-10 update of inactive term RSD upper limb Overview: left arm Generalized anxiety disorder documented as of this encounter (statuses as of 08/09/2023) Resolved Problems Problem Noted Date Diagnosed Date [...] ISCHEMIC HRT DIS NOS Coronary atherosclerosis of [place] coronary artery 11/24/2016 Tobacco abuse 11/17/2017 documented as of this encounter (statuses as of 08/09/2023) Immunizations Name Administration Dates Next Due COVID-19 [...] encounter Miscellaneous Notes * Telephone Encounter - Jacki Chavez OSA [...] 11:50 AM EDT Office Visit Vascular Surgery, [facility] 132 [facility] [place] [address] Nnamdi King MD [address] [place] [address] 08/22/2023 11:20 AM EDT Office Visit Pharmacy, [address] [place] [address] [place] [address] 09/27/2023 9:40 AM EDT Office Visit Family Medicine [address] [place] [phone] Courtney Restrepo MD [address] [place] [address] [place] [address] 10/10/2023 4:00 PM EDT Office Visit Nephrology, [address] [place] [address] Charla Potter MD [address] [place], [place] [address] [address] 10/12/2023 11:00 AM EDT Office Visit Cardiology, [facility] 132 [facility] [place] [address] Frantz Herrera MD [address] [place] [address] 12/07/2023 9:20 AM EDT Office Visit Family Medicine [address] [place] [phone] Courtney Restrepo MD [address] [place] [address] [place] [address] 02/08/2024 11:00 AM EST Imaging Radiology, [address] [place] [address] 02/17/2024 10:00 AM EST Office Visit Rheumatology [address] [place] [phone] Marshall Romano MD [address] [place] [address] [place] [address] Scheduled Procedures Name Priority Associated Diagnoses Date/Ti me ESOPHAGOGASTRODUODENOSCOPY ( EGD), FLEXIBLE, TRANSORAL, DIAGNOSTIC Recall Pendleton's esophagus Health Maintenance Due Date Last Done Comments DISCUSS TOBACCO CESSATION (REFER TO SMARTSET #3474) 1949 Cologuard 1994 Fecal Occult Blood Test [...] 05/12/2017, Additional history exists GFR 06/14/2024 06/15/2023, 0 04/2023, 06/13/2023, Additional history exists O2 ASSESSMENT COMPLETED IN PAST YEAR FOR COPD 07/17/2024 07/18/2023 DTaP,Tdap,and Td Vaccines (3 - Td or Tdap) 07/15/2031 07/14/2021 (Declined), 07/27/2010 Pneumococcal Vaccine: 65+ Years Completed 10/27/2015, 08/08/2014, 05/30/2008 RETIRED - COLONOSCOPY-EVERY 5 YRS AGES 18-100 Discontinued 09/27/2018, 09/27/2018, 07/13/2018, Additional history exists VITAMIN D LEVEL ONCE IN A LIFETIME-USE SMARTSET# [id number] Completed 10/16/2021, 12/27/2018 Alpha-1 Antitrypsin Discontinued GARDASIL-HPV [...] this encounter Medical Devices Implanted Type Area Machine Printer Hose Device Identifier Shelf Expiration Date Model / Serial / Lot Stent Graft Icast [id number] - [id number] - [id number] Implanted:Qty : 1 on 04/14/2022 by Nnamdi King MD at [place] [facility] [place] N/A: Mesenteric Artery GETINGE : VITOR [id number] 02/21/2023 [id number] / [id number] / [id number] Description:implanted in SMA Stent Howie 3.0x15 Rx - [id number] Implanted:Qty : 1 on 11/12/2022 by Patrice Jose MD at [facility] [place] [employer] : VASCULAR [id number] 11/28/2023 [id number] / / [id number] Stent R2p Misago 6fr [id number] - [id number] Implanted:Qty : 1 on 07/18/2023 by Nnamdi King MD at [place] [facility] [place] Right: [facility] : CARDIO SYS [id number] 09/11/2023 [id number] / / [id number] documented as of this encounter Advance Directives [...] the patient have Health Care Power of Testboard Operator? Yes, in chart and reviewed as current [...] patient or by statute hierarchy) Care Teams Ur Coordinator Relationship Specialty Start Date End Date Courtney Restrepo MD [address] [place] [address] [place] [phone] PCP - General Family Medicine 10/17/19 documented as of this encounter
--- OUTSIDE RECORDS SUMMARY | 2023-08-31 06:19 | External Medical Summary | Summary of Care ---
Author Name Unknown Organization [facility] Address [address] [place] [address] Phone [phone] Care Team Providers Care Employee Operations Examiner Name Role Phone Courtney Restrepo MD Primary Care Prov ider Reason for Visit * Reason Onset Date Comments Appointment 05/05/2023 MRI Encounter Details Date Type Department Care Team (Late st Contact Info) Description 05/05/2023 Telephone Family Medicine [address] [phone] Courtney Restrepo MD [address] [place] [address] [place] [address] Appointment (MRI ) Allergies Active Allergy Reactions Criticality Noted [...] edema Nitroglycerin Hypotension 12/20/2018 Penicillins Nausea/vomiting 05/17/2007 [place] Hives 10/02/2018 Propoxyphene Edema face/lips/tongue,Hiv es 06/26/2009 documented as of this encounter (statuses as of 08/04/2023) Medications Medication Sig Dispensed Refills Start Date End Date Status busPIRone HCl 15 MG Oral Tablet (Buspar)Indications: Anxiety TAKE ONE TABLET TWICE DAILY 180 Tablet 1 10/15/2022 Active Clopidogrel Bisulfate 75 MG Oral Tablet (pLAVix)Indications: Asymptomatic bilateral carotid artery stenosis Take 1 Tablet (75 mg) in the morning by mouth. 90 Tablet 2 10/15/2022 Active DULoxetine HCl 30 MG Oral Capsule Delayed Release Particles (Cymbalta)Indication s:Chronic midline thoracic back pain,Generalized anxiety disorder Take 1 Capsule by mouth in the morning and 1 Capsule before bedtime. 180 Capsule 2 10/15/2022 Active OneTouch Delica Lancets 30GIndications:Type 2 diabetes mellitus with hemoglobin A1c goal of less than 8.0% (HCC) Use to test glucose daily. E11.9 100 Each 5 11/29/2022 Active OneTouch Verio w/Device KitIndications:Type 2 diabetes mellitus with hemoglobin A1c goal of less than 8.0% ([facility]) Use to test glucose daily. E11.9 1 Kit 11/29/2022 Active Trelegy Ellipta 100-62.5-25 MCG/ACT Aerosol Powder Breath ActivatedIndications :COPD, group C, by GOLD 2017 classification ([facility]) Inhale 1 puff as directed once a [...] A1c goal of less than 8.0% ([facility]) Test glucose once daily E11.9 100 Strip 5 02/22/2023 Active Calcium Carbonate 600 MG Oral Tablet (Calcium 600) Take 1 Tablet by mouth 2 times a day with morning and evening meals. (Not TUMS) Active documented as of this encounter (statuses as of 08/04/2023) Active Problems Problem Noted Date Diagnosed Date Ischemic rest pain of lower extremity 07/14/2023 Ulcer of right foot, limited to breakdown of ski n 07/14/2023 Dependent rubor 07/14/2023 Atherosclerosis of [place] artery of extremity Pre-ulcerative corn or callous [...] Major depressive disorder, recurrent, unspecifie d 12/07/2019 Polyneuropathy in other diseases classified else where 04/25/2019 Superior mesenteric artery stenosis 04/25/2019 Celiac artery stenosis 04/25/2019 Centrilobular emphysema 04/11/2019 Overview: In Check dial performed to assess inhaler technique: 04/11/19. Name of inhalers Albuterol and Flovent Pass: Yes at 60L/min and Anoro Ellipt Pass: Yes at 45L/min. Encourage to take slow deep breaths, use aero chamber, and rinse after steroid. Test performed by Bibiana [facility] TORCH CPFT Old CT (myocardial infarction) 02/21/2019 Bilateral carotid artery stenosis [...] osteoporosis 07/03/2018 Reactive depression 11/17/2017 Atherosclerosis of [place] co ronary artery of [place] heart without angina pectoris 07/22/2015 Overview: Single [...] rinse after steroid. Test performed by Bibiana [employer]DER[facility] TORCH CPFT GENERAL OSTEOARTHROSIS BMI 32.0-32.9,adult Tobacco use disorder Hyperlipidemia with target LDL less than 70 Overview: ICD-10 update of inactive term RSD upper limb Overview: left arm Generalized anxiety disorder documented as of this encounter (statuses as of 08/04/2023) Resolved Problems Problem Noted Date Diagnosed Date [...] 05/21/2019 06/26/2020 Overview: Per COPD GOLD Classification Fracture of three ribs on left side [...] ISCHEMIC HRT DIS NOS Coronary atherosclerosis of [place] coronary artery 11/24/2016 Tobacco abuse 11/17/2017 documented as of this encounter (statuses as of 08/04/2023) Immunizations Name Administration Dates Next Due COVID-19 [...] encounter Miscellaneous Notes * Telephone Encounter - Umu Hitchcock LPN - 05/09/2023 1:40 PM EST She is seeing Dr. Holland tomorrow. Wait and see what he says? * Telephone Encounter - Margret Potts OSA - 05/09/2023 10:35 AM EST I tried to schedule MRI at checkout today for patient, and she told me that she can not do the contrast, she had a problem with her kidneys the last time she had it she said. So we didn't schedule ityet, I told her I would check and see what we should do * Telephone Encounter - Adriana Pinto LPN - 05/05/2023 10:39 AM EST Pt calling with c/o her left little toe is infection for 2 weeks. She has been put "silver cream" and neosporin and triple abx ointment on it. Toe is red swollen and draining pus, it hurts. Scheduled an appt. With Dr Sanches on 05/06 at 10:20. Pt indicated she will call back if she decides to go to . documented in this encounter Plan of Treatment Upcoming Encounters Date Type Department Care Team (Late st Contact Info) Description 08/09/2023 9:40 AM EDT Office Visit [address] [place] [phone] Courtney Restrepo MD [address] [place] [address] [place] [address] 08/10/2023 11:50 AM EDT Office Visit Vascular Surgery, [facility] [address] [place] [address] Nnamdi King MD [address] [place] [address] 08/22/2023 11:20 AM EDT Office Visit Pharmacy, [address] [place] [address] [place] [address] 09/27/2023 9:40 AM EDT Office Visit [address] [place] [phone] Courtney Restrepo MD [address] [place] [address] [place] [address] 10/10/2023 4:00 PM EDT Office Visit Nephrology, [facility] [address] [place] [address] Charla Potter MD [address] [facility] [place] [address] 10/12/2023 11:00 AM EDT Office Visit Cardiology, [facility] [address] [facility] [place] [address] Frantz Herrera MD [address] [place] [address] 12/07/2023 9:20 AM EDT Office Visit Family Medicine [address] [phone] Courtney Restrepo MD [address] [place] [address] [place] [address] Scheduled Procedures Name Priority Associated Diagnoses Date/Ti me ESOPHAGOGASTRODUODENOSCOPY ( EGD), FLEXIBLE, TRANSORAL, DIAGNOSTIC Recall Pendleton's esophagus Health Maintenance Due Date Last Done Comments DISCUSS TOBACCO CESSATION (REFER TO SMARTSET #5130) 1949 Cologuard 1994 Fecal Occult Blood Test [...] D LEVEL ONCE IN A LIFETIME-USE SMARTSET# 29661 Completed 10/16/2021, 12/27/2018 Alpha-1 Antitrypsin Discontinued GARDASIL-HPV [...] this encounter Medical Devices Implanted Type Area Account Officer Device Identifier Shelf Expiration Date Model / Serial / Lot Stent Graft Icast [id number] - [id number] - [id number] Implanted:Qty : 1 on 04/14/2022 by Nnamdi King MD at OR [facility] N/A: Mesenteric Artery GETINGE : VITOR [id number] 02/21/2023 [id number] / [id number] Description:implanted in SMA Stent Rippey 3.0x15 Rx - [id number] Implanted:Qty : 1 on 11/12/2022 by Patrice Jose MD at CARDIAC LABS [facility] [employer] : VASCULAR [id number] 11/28/2023 [id number] / / [id number] Stent R2p Misago 6fr [id number] - [id number] Implanted:Qty : 1 on 07/18/2023 by Nnamdi King MD at OR [facility] Right: [facility] : CARDIO SYS [id number] 09/11/2023 [id number] / / [id number] documented as of this encounter Advance Directives [...] the patient have Health Care Power of First Beater? Yes, in chart and reviewed as current [...] patient or by statute hierarchy) Care Teams Employee Operations Examiner Relationship Specialty Start Date End Date Courtney Restrepo MD [address] [place] [address] [place] [address] PCP - General Family Medicine 10/17/19 documented as of this encounter
--- OUTSIDE RECORDS SUMMARY | 2023-08-31 06:19 | External Medical Summary | Summary of Care ---
Author Name Unknown Organization [facility] Address [address] [place] [address] Phone [phone] Care Team Providers Care It Audit Manager Name Role Phone Courtney Penaloza MD Primary Care Prov ider Reason for Visit * Reason Comments eRx-Medication Refill Encounter Details Date Type Department Care Team (Late st Contact Info) Description 08/04/2023 Refill Family Medicine [address] [phone] Courtney Penaloza MD [address] [place] [address] Asymptomatic bilateral carotid artery stenosis Allergies Active Allergy Reactions Criticality Noted Date [...] edema Nitroglycerin Hypotension 12/20/2018 Penicillins Nausea/vomiting 05/17/2007 [place] Hives 10/02/2018 Propoxyphene Edema face/lips/tongue,Hiv es 06/26/2009 documented as of this encounter (statuses as of 08/05/2023) Medications Medication Sig Dispensed Refills Start Date End Date Status busPIRone HCl 15 MG Oral Tablet (Buspar)Indication s:Anxiety TAKE ONE TABLET TWICE DAILY 180 Tablet 1 3 Active DULoxetine HCl 30 MG Oral Capsule Delayed Release Particles (Cymbalta)Indicati ons:Chronic midline thoracic back pain,Generalized anxiety disorder Take 1 Capsule by mouth in the morning and 1 Capsule before bedtime. 180 Capsule 2 3 Active OneTouch Delica Lancets 30GIndications:Typ e 2 diabetes mellitus with hemoglobin A1c goal of less than 8.0% (HCC) Use to test glucose daily. E11.9 100 Each 5 3 Active OneTouch Verio w/Device KitIndications:Typ e 2 diabetes mellitus with hemoglobin A1c goal of less than 8.0% (HCC) Use to test glucose daily. E11.9 1 Kit 3 Active Trelegy Ellipta 100-62.5-25 MCG/ACT Aerosol Powder Breath ActivatedIndicatio ns:COPD, group C, by GOLD 2017 classification ([facility]) Inhale 1 puff as directed once a day 1 inhalation daily. Rinse mouth after every use. 60 Blister Dosing Unit 5 3 Active NovoLOG FlexPen 100 UNIT/ML Subcutaneous Solution Pen-injector (insulin aspart)Indications :Type 2 diabetes mellitus with hemoglobin A1c goal of less than 8.0% (HCC) Units as per sliding scale 3 mL 3 3 Active Insulin Glargine Solostar 100 UNIT/ML Subcutaneous Solution Pen-injector (Lantus SoloStar)Indicatio ns:Type 2 diabetes mellitus with hemoglobin A1c goal [...] Active OneTouch Verio In Vitro Strip (Glucose Blood)Indications: Type 2 diabetes mellitus with hemoglobin A1c goal of less than 8.0% ([facility]) Test glucose once daily E11.9 100 Strip 5 3 Active Calcium Carbonate 600 MG Oral Tablet (Calcium 600) Take 1 Tablet by mouth 2 times a day with morning and evening meals. (Not TUMS) Active Polyethylene Glycol 3350 17 GM/SCOOP Oral Powder (MiraLax)Indicatio ns:Other constipation Dissolve one heaping tablespoon in 8 ounces of water or juice - one dose per day as needed for severe constipation 225 g 2 4 Active Aspirin 81 MG Oral Tablet Chewable Take 1 Tablet by mouth in the morning. 30 Tablet 1 4 Active Pantoprazole Sodium 40 MG Oral Tablet Delayed Release (Protonix)Indicati ons:Iron deficiency anemia due to chronic blood loss,Chronic superficial gastritis with bleeding TAKE 1 TABLET BY MOUTH 30 MINUTES BEFORE FIRST MEAL AND 1 TABLET BEFORE BEDTIME DO NOT CRUSH, SPLIT, OR CHEW 180 Tablet 3 4 Active Sennosides-Docusat e Sodium 8.6-50 MG Oral Tablet (Senokot-S) Take 2 Tablets by mouth in the morning and 2 Tablets before bedtime. 60 Tablet 1 4 Active Sucralfate 1 GM Oral Tablet (Carafate) Take 1 Tablet by mouth 4 times a day before meals and at bedtime. 120 Tablet 5 4 Active Loratadine 10 MG Oral Tablet (Claritin) Take 1 Tablet by mouth in the morning. 90 Tablet 3 4 Active Albuterol Sulfate HFA 108 (90 Base) MCG/ACT Inhalation Aerosol SolutionIndication s:Bacterial pneumonia Use two puffs four times a day as needed for shortness of breath/wheezing 18 g 3 4 Active Gabapentin 300 MG Oral Capsule (Neurontin) Take 1 Capsule by mouth in the morning and 1 Capsule at noon and 1 Capsule before bedtime. 90 Capsule 3 4 Active Baclofen 5 MG Oral Tablet (Lioresal) Take 1 Tablet by mouth in the morning and 1 Tablet at noon and 1 Tablet before bedtime. As needed for muscle spasm. 30 Tablet 4 Active oxyCODONE HCl 5 MG Oral Tablet (Oxy IR) Take 1 Tablet by mouth every 8 hours as needed for Pain, Severe. 12 Tablet 4 Active Furosemide 20 MG Oral Tablet (Lasix)Indications :Atherosclerosis of [place] artery of left lower extremity with rest pain (HCC),DM type 2 with diabetic peripheral neuropathy (HCC) One daily 30 Tablet 5 4 Active Ipratropium-Alb[place] rol 0.5-2.5 (3) MG/3ML Inhalation Solution (Duoneb) Inhale 3 mL by mouth every 4 hours as needed for Shortness of Breath. 3 Active Clopidogrel Bisulfate 75 MG Oral Tablet (pLAVix)Indication s:Asymptomatic bilateral carotid artery stenosis TAKE 1 TABLET BY MOUTH EVERY MORNING 90 Tablet 3 4 Active Clopidogrel Bisulfate 75 MG Oral Tablet (pLAVix)Indication s:Asymptomatic bilateral carotid artery stenosis Take 1 Tablet (75 mg) in the morning by mouth. 90 Tablet 2 3 08/05/19 24 Discontinued documented as of this encounter (statuses as of 08/05/2023) Active Problems Problem Noted Date Diagnosed Date Ischemic rest pain of lower extremity 07/14/2023 Ulcer of right foot, limited to breakdown of ski n 07/14/2023 Dependent rubor 07/14/2023 Atherosclerosis of [place] artery of extremity Pre-ulcerative corn or callous [...] rinse after steroid. Test performed by Bibiana [facility] [place] (myocardial infarction) 02/21/2019 Bilateral carotid artery stenosis [...] osteoporosis 07/03/2018 Reactive depression 11/17/2017 Atherosclerosis of [place] co ronary artery of [place] heart without angina pectoris 07/22/2015 Overview: Single [...] rinse after steroid. Test performed by Bibiana DISBURSING OFFICER CPFT GENERAL OSTEOARTHROSIS BMI 32.0-32.9,adult Tobacco use disorder Hyperlipidemia with target LDL less than 70 Overview: ICD-10 update of inactive term RSD upper limb Overview: left arm Generalized anxiety disorder documented as of this encounter (statuses as of 08/05/2023) Resolved Problems Problem Noted Date Diagnosed Date [...] ISCHEMIC HRT DIS NOS Coronary atherosclerosis of [place] coronary artery 11/24/2016 Tobacco abuse 11/17/2017 documented as of this encounter (statuses as of 08/05/2023) Immunizations Name Administration Dates Next Due COVID-19 [...] Tobacco: Every Day Cigarettes Smokeless Tobacco: Never Comments:5/2/24 2 packs ciga rettes daily, declined pamphlet [...] encounter Miscellaneous Notes * Telephone Encounter - Castro Ortiz [facility] - 08/05/2023 12:58 PM EDTSigned Prescriptions: Disp Refills Clopidogrel Bisulfate 75 MG Oral Tablet (p*90 Tab*3 Sig: TAKE 1 TABLET BY MOUTH EVERY MORNINGAuthorizing Provider: COURTNEY PENALOZA User: CASTRO ORTIZ documented in this encounter Plan of Treatment Upcoming Encounters Date Type Department Care Team (Late st Contact Info) Description 08/09/2023 9:40 AM EDT Office Visit [address] [facility] [address] [phone] Courtney Penaloza MD [address] [place] [address] [place] [address] 08/10/2023 11:50 AM EDT Office Visit Vascular Surgery, [facility] [address] [facility] [place] [address] Nnamdi King MD [address] [place] [address] 08/22/2023 11:20 AM EDT Office Visit Pharmacy, [address] [place] [address] [place] [address] 09/27/2023 9:40 AM EDT Office Visit Family Medicine [address] [place] [phone] Courtney Penaloza MD [address] [place] [address] [place] [address] 10/10/2023 4:00 PM EDT Office Visit Nephrology, [address] [place] [address] Charla Potter MD [address] [place] [address] 10/12/2023 11:00 AM EDT Office Visit Cardiology, [facility] [address] [place] [address] Frantz Herrera MD [address] [facility] [place] [id number] 12/07/2023 9:20 AM EDT Office Visit [facility] Medicine [address] [place] [phone] Courtney Penaloza MD [address] [place] [address] [place] [address] Scheduled Procedures Name Priority Associated Diagnoses Date/Ti me ESOPHAGOGASTRODUODENOSCOPY ( EGD), FLEXIBLE, TRANSORAL, DIAGNOSTIC Recall Pendleton's esophagus Health Maintenance Due Date Last Done Comments DISCUSS TOBACCO CESSATION (REFER TO SMARTSET #1369) 1950 Cologuard 1994 Fecal Occult Blood Test [...] D LEVEL ONCE IN A LIFETIME-USE SMARTSET# 19241 Completed 10/16/2021, 12/27/2018 Alpha-1 Antitrypsin Discontinued GARDASIL-HPV [...] this encounter Medical Devices Implanted Type Area Naval Inspector Device Identifier Shelf Expiration Date Model / Serial / Lot Stent Graft Icast [id number] - [id number] - [id number] Implanted:Qty : 1 on 04/14/2022 by Nnamdi King MD at OR [facility] [place] [place] N/A: Mesenteric Artery GETINGE : VITOR [id number] 02/21/2023 [id number] / [id number] / [id number] Description:implanted in SMA Stent Howie 3.0x15 Rx - [id number] Implanted:Qty : 1 on 11/12/2022 by Patrice Jose MD at CARDI[facility] LABS [facility] [place] [place] [employer] : VASCULAR [id number] 11/28/2023 [id number] / / [id number] Stent R2p Misago 6fr [id number] - [id number] Implanted:Qty : 1 on 07/18/2023 by Nnamdi King MD at OR [facility] [place] [place] Right: [facility] : CARDIO SYS [id number] 09/11/2023 [id number] / / [id number] documented as of this encounter Visit Diagnoses Diagnosis Asymptomatic bilateral carotid artery stenosis Occlusion and stenosis of multiple and bilateral precerebral arteries without mention of cerebral infarction documented in this encounter Advance Directives * [...] the patient have Health Care Power of Guest Service Manager? Yes, in chart and reviewed [...] patient or by statute hierarchy) Care Teams It Audit Manager Relationship Specialty Start Date End Date Courtney Penaloza MD [address] [place] [address] [place] [address] PCP - General Family Medicine 10/17/19 documented as of this encounter
--- OUTSIDE RECORDS SUMMARY | 2023-08-31 06:19 | External Medical Summary | Summary of Care ---
Author Name Unknown Organization [facility] Address [address] [place] [address] Phone [phone] Care Team Providers Care Health And Fitness Instructor Name Role Phone Courtney Restrepo MD Primary Care Prov ider Reason for Visit * Reason Onset Date Comments Medication Question 08/01/2023 Encounter Details Date Type Department Care Team (Late st Contact Info) Description 08/01/2023 Telephone Pharmacy Call Center [address] [place] [address] [place] [address] Medication Question Allergies Active Allergy Reactions Criticality Noted Date [...] edema Nitroglycerin Hypotension 12/20/2018 Penicillins Nausea/vomiting 05/17/2007 [place] Hives 10/02/2018 Propoxyphene Edema face/lips/tongue,Hiv es 06/26/2009 [...] ns:COPD, group C, by GOLD 2017 classification ([facility]) Inhale 1 puff as directed once [...] goal of less than 8.0% ([facility]) Test glucose once daily E11.9 100 [...] 20 MG Oral Tablet (Lasix)Indications :Atherosclerosis of [place] artery of left lower extremity with rest pain (HCC),DM type 2 with diabetic peripheral neuropathy (HCC) One daily 30 Tablet 5 4 Active Clopidogrel Bisulfate 75 MG Oral [...] n 07/14/2023 Dependent rubor 07/14/2023 Atherosclerosis of [place] artery of extremity Pre-ulcerative corn or callous [...] rinse after steroid. Test performed by Bibiana FABRIC MACHINE OPERATOR CPFT [place] (myocardial infarction) 02/21/2019 Bilateral carotid artery stenosis [...] osteoporosis 07/03/2018 Reactive depression 11/17/2017 Atherosclerosis of [place] co ronary artery of [place] heart without angina pectoris 07/22/2015 Overview: Single [...] rinse after steroid. Test performed by Bibiana FABRIC MACHINE OPERATOR CPFT GENERAL OSTEOARTHROSIS BMI 32.0-32.9,adult Tobacco [...] ISCHEMIC HRT DIS NOS Coronary atherosclerosis of [place] coronary artery 11/24/2016 Tobacco abuse 11/17/2017 documented [...] Notes * Telephone Encounter - Zenia Goldberg RPh - 08/05/2023 4:24 PM EDT Per [employer] portal, [facility] Rem[facility] to Everyone Hello, this order is scheduled to ship today, 08/03/2023. Thank you Zenia Goldberg RPh, PharmD Clinical Pharmacist - Liquor Grinding Mill Operator [facility]ication [facility] 08/05/2023, 4:24 PM Ph.[phone] * Telephone Encounter - Zenia Goldberg RPh - 08/01/2023 3:59 PM EDT Patient Phone Numbers Called and spoke with patient. Made her aware [facility] was out of office until today. Paperwork completed and sucessfully faxed to [phone]. Patient expressed understanding. Zenia Goldberg RPh, PharmD Clinical Pharmacist - Liquor Grinding Mill Operator Medication Therapy [facility] 08/01/2023, 3:59 PM Ph.[phone] * Telephone Encounter - Mayi Buenrostro PHARM Tech - 08/01/2023 2:30 PM EDT Caller's name: Carlotta Preferred call back number(OFFICE NUMBER FOR ): [phone] Reason for call: Pt calling to see where her her Dexcom is. She said she cancelled her appt for today due to not getting it yet. Please advise and return her call. Thank you, Mayi Buenrostro Crab Meat Processor Centralized Clinical Pharmacy Services 08/01/2023,2:30 PM documented in this encounter Plan of Treatment Upcoming Encounters Date Type Department Care Team (Late st Contact Info) Description 08/09/2023 9:40 AM EDT Office Visit Family Medicine [address] [place] [phone] Courtney Restrepo MD [address] [place] [address] [place] [address] 08/10/2023 11:50 AM EDT Office Visit Vascular Surgery, [facility] [address] [facility] [place] [address] Nnamdi King MD [address] [place] [address] 08/22/2023 11:20 AM EDT Office Visit Pharmacy, [address] [place] [address] [place] [address] 09/27/2023 9:40 AM EDT Office Visit [address] [phone] Courtney Restrepo MD [address] [place] [address] [place] [address] 10/10/2023 4:00 PM EDT Office Visit Nephrology, [facility] [address] [place] [address] Charla Potter MD [address] [place] [address] 10/12/2023 11:00 AM EDT Office Visit Cardiology, [facility] [address] [place] [address] Frantz Herrera MD [address] [place] [address] 12/07/2023 9:20 AM EDT Office Visit [address] [place] [phone] Courtney Restrepo MD [address] [place] [address] [place] [address] Scheduled Procedures Name Priority Associated Diagnoses Date/Ti [...] 05/12/2017, Additional history exists GFR 06/14/2024 06/15/2023, 04/0 04/2023, 06/13/2023, Additional history exists O2 ASSESSMENT COMPLETED IN PAST YEAR FOR COPD 07/17/2024 07/18/2023 DTaP,Tdap,and Td Vaccines (3 - Td or Tdap) 07/15/2031 07/14/2021 (Declined), 07/27/2010 Pneumococcal Vaccine: 65+ Years Completed 10/27/2015, 08/08/2014, 05/30/2008 RETIRED - COLONOSCOPY-EVERY 5 YRS AGES 18-100 Discontinued 09/27/2018, 09/27/2018, 07/13/2018, Additional history exists VITAMIN D LEVEL ONCE IN A LIFETIME-USE SMARTSET# [id number] Completed 10/16/2021, 12/27/2018 Alpha-1 Antitrypsin Discontinued GARDASIL-HPV [...] this encounter Medical Devices Implanted Type Area Inspector Repairer Sandstone Device Identifier Shelf Expiration Date Model / Serial / Lot Stent Graft Icast [id number] - [id number] - [id number] Implanted:Qty : 1 on 04/14/2022 by Nnamdi King [place] [facility] [place] Mesenteric Artery GETINGE : MAQUET [id number] 02/21/2023 [id number] / [id number] Description:implanted in SMA Stent Howie 3.0x15 Rx - [id number] Implanted:Qty : 1 on 11/12/2022 by Patrice Jose MD at [facility] [place] [employer] : VASCULAR [id number] 11/28/2023 [id number] / / [id number] Stent R2p Misago 6fr [id number] - [id number] Implanted:Qty : 1 on 07/18/2023 by Nnamdi King MD [place] [facility] [place] Right: [facility] MEDICAL : CARDIO SYS [id number] 09/11/2023 [id number] / / [id number] documented as of this encounter Advance Directives [...] the patient have Health Care Power of Nursing Specialist? Yes, in chart and reviewed as current [...] patient or by statute hierarchy) Care Teams Health And Fitness Instructor Relationship Specialty Start Date End Date Courtney Restrepo MD [address] [place] [address] [place] [address] PCP - General Family Medicine 10/17/19 documented as of this encounter
--- OUTSIDE RECORDS SUMMARY | 2023-08-31 06:19 | External Medical Summary | Summary of Care ---
Author Name Unknown Organization [facility] Address [address] [place] [address] Phone [phone] Care Team Providers Care Shuttle Van Driver Name Role Phone Courtney Restrepo MD Primary Care Prov ider Reason for Referral * Evaluate & Treat - Unlimited Visits (Within 30 days (routine)) - Authorized Specialty Diagnoses / Procedures Referred By Rosalia chandra Referred To Contact Gastroenterology Diagnoses 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 Courtney Restrepo MD [address] [place] [address] [place] [address] Referral ID Status Reason Start Date Expiration Date Visits Requested Visits Authorized [id number] Authorized Ancillary Services Required 08/09/[phone] Question Answer Referral Priority Within 30 days (routine) Where should this appointment be scheduled? [facility] Comments Upper Endoscopy ASGE Guidelines Pendleton's esophagus surveillance ADDITIONAL INFORMATION 1. Is the patient on Coumadin? No 2. Is the patient on Pradaxa? No Reason for Visit * Reason Comments Follow Up 1 mo f/u Encounter Details Date Type Department Care Team (Latest Contact Info) Description 08/09/2023 9:40 AM EDT Office Visit Family Medicine [address] [place] [phone] Courtney Restrepo MD [address] [place] [address] [place] [address] S/P AKA (above knee amputation), left ([facility])*; 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; COPD, group D, by GOLD 2017 classification ([facility]); Type 2 diabetes mellitus with hemoglobin A1c goal of less than 8.0% ([facility]); PAD (peripheral artery disease) ([facility]); Status post below-knee amputation of left lower extremity ([facility]); Tobacco use disorder; Hyperlipidemia with target LDL less than 70; Senile osteoporosis Allergies Active Allergy Reactions Criticality Noted Date [...] edema Nitroglycerin Hypotension 12/20/2018 Penicillins Nausea/vomiting 05/17/2007 [place] Hives 10/02/2018 Propoxyphene Edema face/lips/tongue,Hiv es 06/26/2009 [...] hemoglobin A1c goal of less than 8.0% ([facility]) Use to test glucose daily. E11.9 100 Each 5 3 Active OneTouch Verio w/Device KitIndications:Typ e 2 diabetes mellitus with hemoglobin A1c goal of less than 8.0% ([facility]) Use to test glucose daily. E11.9 1 Kit 3 Active Trelegy Ellipta 100-62.5-25 MCG/ACT Aerosol Powder Breath ActivatedIndicatio ns:COPD, group C, by GOLD 2017 classification ([facility]) Inhale 1 puff as directed once a day 1 inhalation daily. Rinse mouth after every use. 60 Blister Dosing Unit 5 3 Active NovoLOG FlexPen 100 UNIT/ML Subcutaneous Solution Pen-injector (insulin aspart)Indications :Type 2 diabetes mellitus with hemoglobin A1c goal of less than 8.0% ([facility]) Units as per sliding scale 3 mL 3 3 Active Insulin Glargine Solostar 100 UNIT/ML Subcutaneous Solution Pen-injector (Lantus SoloStar)Indicatio ns:Type 2 diabetes mellitus with hemoglobin A1c goal of less than 8.0% ([facility]) Inject 10 Units under the skin [...] hemoglobin A1c goal of less than 8.0% ([facility]) Test glucose once daily E11.9 100 [...] for muscle spasm. 30 Tablet 4 Active Furosemide 20 MG Oral Tablet (Lasix)Indications :Atherosclerosis of [place] artery of left lower extremity with rest [...] EVERY MORNING 90 Tablet 3 4 Active HYDROcodone-Acetam inophen 5-325 MG Oral TabletIndications: S/P AKA (above knee amputation), left (HCC) Take 1 Tablet by mouth every 6 hours as needed for Pain, Mild or Pain, Severe. 60 Tablet 4 Active Atorvastatin Calcium 40 MG Oral Tablet (Lipitor) Take 1 Tablet by mouth in the morning. Active oxyCODONE HCl 5 MG Oral Tablet (Oxy IR) Take 1 Tablet by mouth every 8 hours as needed for Pain, Severe. 12 Tablet 4 08/09/19 24 Discontinued documented as of this encounter (statuses as of 08/09/2023) Active Problems Problem Noted Date Diagnosed Date Ischemic rest pain of lower extremity 07/14/2023 Ulcer of right foot, limited to breakdown of ski n 07/14/2023 Dependent rubor 07/14/2023 Atherosclerosis of [place] artery of extremity Pre-ulcerative corn or callous [...] rinse after steroid. Test performed by Bibiana BRAKE OPERATOR HEAVY DUTY CPFT [place] (myocardial infarction) 02/21/2019 Bilateral carotid artery stenosis [...] osteoporosis 07/03/2018 Reactive depression 11/17/2017 Atherosclerosis of [place] co ronary artery of [place] heart without angina pectoris 07/22/2015 Overview: Single [...] rinse after steroid. Test performed by Bibiana BRAKE OPERATOR HEAVY DUTY CPFT GENERAL OSTEOARTHROSIS BMI 32.0-32.9,adult Tobacco use [...] ISCHEMIC HRT DIS NOS Coronary atherosclerosis of [place] coronary artery 11/24/2016 Tobacco abuse 11/17/2017 documented [...] Sign Reading Time Taken Comments Blood Pressure 100/60 08/09/2023 10:21 AM EDT Pulse 96 08/09/2023 10:21 AM EDT Temperature 36.3 C (97.3 F) 08/09/2023 10:21 AM E DT Respiratory Rate - - Oxygen Saturation 96% 08/09/2023 10:21 AM EDT Inhaled Oxygen Concentration - - Weight - [...] as of this encounter Progress Notes * Waldemar Morejon, Courtney Godfrey MD - 08/09/2023 10:22 AM EDT Subjective Carlotta Khan is a 72 year old female. Chief Complaint Patient presents with Follow Up 1 mo f/u Wants hydrocodone 5/325 mg instead of Oxycodone states oxy is not working No recent Falls Still smoking Callous right 3rd toe remains HPI: Short term follow up due to severe vasculopathy and recent left leg amputation; s/p recent femoral bypass. FEM/POP ARTERY REVASC W/ STENT+ANGIOPLASTY 07/18/2023 by . PMH includes recent left AKA due to PAD, dedicated smoker, type 2 DM, Lipids, COPD, Mesenteric ischemia, h/o CVA, h/o NM. Right 3rd toe callous is still present. Underwent recent femoral revascularization and has close follow up with vascular surgery. Swelling is much reduced with use of lasix and after the balloon angioplasty. Tobacco. Back to smoking 1.5 PPD currently. Used to smoke 4 PPD. States with the stress she has, started smoking again. States she knows it's a problem and is trying to cut down on her own. DM. A1C 9.1 06/08/23. Using lantus and novolog. Works with [employer], trying to get her on Dexcom G7. Prev: DEXA, vaccines, EGD for barretts PMH: Patient Active Problem List Diagnosis Moderate persistent asthma without complication GENERAL OSTEOARTHROSIS Cerebrovascular disease, arteriosclerotic, post-stroke ADVANCE DIRECTIVE INFORMATION BMI 32.0-32.9,adult Tobacco use disorder Hyperlipidemia with target LDL less than 70 RSD upper limb Type 2 diabetes mellitus with hemoglobin A1c goal of less than 8.0% ([facility]) Controlled substance agreement signed Generalized anxiety disorder Atherosclerosis of [place] coronary artery of [place] heart without angina pectoris Reactive depression Senile osteoporosis PAD (peripheral artery disease) ([facility]) Iron deficiency anemia due to chronic blood loss 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 Chronic superficial gastritis with bleeding Gastrointestinal hemorrhage with melena Lung nodules Moderate mitral regurgitation [place] (myocardial infarction) Bilateral carotid artery stenosis DM type 2 with diabetic peripheral neuropathy (HCC) Right hand tendonitis Generalized arthritis Hand arthritis Centrilobular emphysema (HCC) 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 (HCC) Major depressive disorder, recurrent, unspecified (HCC) Non-proliferative diabetic retinopathy, both eyes (HCC) Recurrent major depressive disorder, in partial remission (HCC) Mesenteric ischemia, chronic ([facility]) COPD, group D, by GOLD 2017 classification ([facility]) Chronic ischemic heart disease Advanced directives, counseling/discussion 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) 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- dominant side ([facility]) Wound drainage S/P femoral-femoral bypass surgery History of cardiac arrest Shock ([facility]) Lactic acidosis Transaminitis Encephalopathy acute Pathological fracture of vertebra due to osteoporosis with routine healing, subsequent encounter S/P AKA (above knee amputation), left (HCC) Status post below-knee amputation of left lower extremity (HCC) Pre-ulcerative corn or callous Ischemic rest pain of lower extremity Ulcer of right foot, limited to breakdown of skin (HCC) Dependent rubor Atherosclerosis of [place] artery of extremity (HCC) Current Outpatient Medications Medication Sig Dispense Refill [...] Take 1 Capsule by mouth every evening. DestiTouch Verio In Vitro Strip (Glucose Blood) Test [...] and periorbital edema Nitroglycerin Hypotension Penicillins Nausea/vomiting [place] Hives Propoxyphene Edema face/lips/tongue and Hives Objective BP 100/60 | Pulse 96 | Temp 36.3 C (97.3 F) (Tympanic) | SpO2 96% Physical Exam HENT: Head: Normocephalic and atraumatic. Mouth/Throat: Mouth: Mucous membranes are moist. Eyes: Extraocular Movements: Extraocular movements intact. Neck: Comments: Cervical spine tenderness to palpation and ROM Cardiovascular: Rate and Rhythm: Normal rate and regular rhythm. Pulmonary: Effort: Pulmonary effort is normal. Breath sounds: Rhonchi present. Musculoskeletal: Cervical back: Tenderness present. Right lower leg: No edema. Neurological: Mental Status: She is alert. Cranial Nerves: Cranial nerve deficit present. Comments: Left facial droop (chronic) ASSESSMENT/PLAN: S/P AKA (above knee amputation), left (HCC) (Primary) - HYDROcodone-Acetaminophen 5-325 MG Oral Tablet; Take 1 Tablet by mouth every 6 hours as needed for Pain, Mild or Pain, Severe. 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 - UPPER ENDOSCOPY GI REFERRAL OP COPD, group D, by GOLD 2017 classification ([facility]) Type 2 diabetes mellitus with hemoglobin A1c goal of less than 8.0% ([facility]) PAD (peripheral artery disease) ([facility]) Status post below-knee amputation of left lower extremity ([facility]) Tobacco use disorder Hyperlipidemia with target LDL less than 70 Senile osteoporosis - DEXA SCAN/BONE MINERAL AXIAL Follow-up: Return in about 3 months (around 11/09/2023). | Check-out note: Schedule EGD Schedule Rheumatology follow up (after DEXA) Carlotta presents with multiple concerns today. She has severe vasculopathy and continues to use tobacco. Right 3rd toe callous. Suspect 2/2 PAD; and she has appt with vascular surgery tomorrow. Uncontrolled DM. Recommend MTM referral to optimize blood sugar management. Schedule DEXA, Rheum follow up and EGD Arrange close follow up Courtney Jay MD 45 mins spent with patient > 50% counselling and coordinating care. documented in this encounter Nursing Notes * Jose Enrique Guo LPN - 08/09/2023 10:07 AM EDT Chief Complaint Patient presents with Follow Up 1 mo f/u FEM/POP ARTERY REVASC W/ STENT+ANGIOPLASTY 07/18/2023 by Seen on 07/28/23 for Follow post surgery follow up tomorrow Nursing ,PT and OT Discharge after this week Wants hydrocodone 5/325 mg instead of Oxycodone states oxy is not working No recent Falls Still smoking Callous right 3rd toe remains Denies Chest pain Denies dysuria States Lasix is really helping Cancel apt with [facility] on 07/31 since Med's was not received. They are trying to get Dexom G7. Thye are trying to change from Insulin to Glipizide and Jardiance after Dexcom received. Has to go through tomorrow health The patient has been properly identified by confirmation of name and date of . documented in this encounter Plan of Treatment Upcoming Encounters Date Type Department Care Team (Late st Contact Info) Description 08/10/2023 11:50 AM EDT Office Visit Vascular Surgery, [facility] [address] [place] [address] Nnamdi King MD 100 [facility] [place] [id number] 08/22/2023 11:20 AM EDT Office Visit Pharmacy, [address] [place] [address] [place] [address] 09/27/2023 9:40 AM EDT Office Visit Family Medicine [address] [place] [phone] Courtney Restrepo MD [address] [place] [address] [place] [address] 10/10/2023 4:00 PM EDT Office Visit Nephrology, [address] [place] [address] Charla Potter MD [address] [place] [address] 10/12/2023 11:00 AM EDT Office Visit Cardiology, [facility] [address] [place] [address] Frantz Herrera MD [address] [facility] [place] [id number] 12/07/2023 9:20 AM EDT Office Visit Family Medicine [address] [place] [phone] Courtney Restrepo MD [address] [place] [address] [place] [address] 02/08/2024 11:00 AM EST Imaging Radiology[place] [address] [place] [address] 02/17/2024 10:00 AM EST Office Visit Rheumatology [address] [place] [phone] Marshall Romano MD [facility] [place] [address] Scheduled Orders Name Type Priority Associated Diagnoses Orde r Schedule DEXA SCAN/BONE MINERAL AXIAL Medical Imaging Routine Senile osteoporosis Ordered: 08/09/2023 Scheduled Procedures Name Priority Associated Diagnoses Date/Ti me ESOPHAGOGASTRODUODENOSCOPY ( EGD), FLEXIBLE, TRANSORAL, DIAGNOSTIC Recall Pendleton's esophagus Scheduled Referrals Name Type Priority Associated Diagnoses Orde r Schedule UPPER ENDOSCOPY GI REFERRAL OP Referral Within 30 days (routine) 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 Ordered: 08/09/2023 Health Maintenance Due Date Last Done Comments [...] D LEVEL ONCE IN A LIFETIME-USE SMARTSET# [id number] Completed 10/16/2021, 12/27/2018 Alpha-1 Antitrypsin Discontinued GARDASIL-HPV [...] this encounter Medical Devices Implanted Type Area Division Chair Device Identifier Shelf Expiration Date Model / Serial / Lot Stent Graft Icast [id number] - [id number] - [id number] Implanted:Qty : 1 on 04/14/2022 [place]di [place] [facility] [place] Mesenteric Artery GETINGE : MAQUET [id number] 02/21/2023 [id number] / [id number] / [id number] Description:implanted in SMA Stent Howie 3.0x15 Rx - [id number] Implanted:Qty : 1 on 11/12/2022 by Patrice Jose MD [place] [facility] [place] [employer] [place] VASCULAR [id number] 11/28/2023 [id number] / / [id number] Stent R2p Misago 6fr [id number] - [id number] Implanted:Qty : 1 on 07/18/2023 by Nnamdi King [place] [facility] [place]: [employer] : CARDIO SYS [id number] 09/11/2023 [id number] / / [id number] documented as of this encounter Visit Diagnoses Diagnosis S/P AKA (above knee amputation), left ([facility])- Primary 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 Pendleton's esophagus COPD, group D, by GOLD 2017 classification ([facility]) Type 2 diabetes mellitus with hemoglobin A1c goal of less than 8.0% ([facility]) PAD (peripheral artery disease) ([facility]) Peripheral vascular disease, unspecified Status post below-knee amputation of left lower extremity ([facility]) Tobacco use disorder Hyperlipidemia with target LDL less than 70 Other and unspecified hyperlipidemia Senile osteoporosis documented in this encounter Advance Directives * [...] the patient have Health Care Power of Crane Hoist Or Lift Operator? Yes, in chart and reviewed as [...] patient or by statute hierarchy) Care Teams Shuttle Van Driver Relationship Specialty Start Date End Date Courtney Restrepo MD [address] [place] [address] [place] [address] PCP - General Family Medicine 10/17/19 documented as of this encounter
--- OUTSIDE RECORDS SUMMARY | 2023-08-31 06:20 | External Medical Summary | Summary of Care ---
Author Name Unknown Organization [facility] Address [address] [place] [address] Phone [phone] Care Team Providers Care Home Therapy Teacher Name Role Phone Courtney Restrepo MD Primary Care Prov ider Encounter Details Date Type Department Care Team (Late st Contact Info) Description 2023 Population Health External Data Unspecified Department Allergies Active Allergy Reactions Criticality Noted Date [...] edema Nitroglycerin Hypotension 12/20/2018 Penicillins Nausea/vomiting 05/17/2007 [place] Hives 10/02/2018 Propoxyphene Edema face/lips/tongue,Hiv es 06/26/2009 documented as of this encounter (statuses as of 08/03/2023) Medications Medication Sig Dispensed Refills Start Date [...] :COPD, group C, by GOLD 2017 classification ([facility]) Inhale 1 puff as directed [...] A1c goal of less than 8.0% (HCC) Test glucose once daily E11.9 100 Strip [...] for muscle spasm. 30 Tablet 07/26/2023 Active oxyCODONE HCl 5 MG Oral Tablet (Oxy IR) Take 1 Tablet by mouth every 8 hours as needed for Pain, Severe. 12 Tablet 07/28/2023 Active Furosemide 20 MG Oral Tablet (Lasix)Indications:A therosclerosis of [place] artery of left lower extremity with rest pain (HCC),DM type 2 with diabetic peripheral neuropathy (HCC) One daily 30 Tablet 5 07/28/2023 Active documented as of this encounter (statuses as of 08/03/2023) Active Problems Problem Noted Date Diagnosed Date Ischemic rest pain of lower extremity 07/14/2023 Ulcer of right foot, limited to breakdown of ski n 07/14/2023 Dependent rubor 07/14/2023 Atherosclerosis of [place] artery of extremity Pre-ulcerative corn or callous [...] rinse after steroid. Test performed by Bibiana SPEECH CORRECTION ASSISTANT CPFT Old [place] (myocardial infarction) 02/21/2019 Bilateral carotid artery stenosis [...] osteoporosis 07/03/2018 Reactive depression 11/17/2017 Atherosclerosis of [place] co ronary artery of [place] heart without angina pectoris 07/22/2015 Overview: Single [...] rinse after steroid. Test performed by Bibiana SPEECH CORRECTION ASSISTANT CPFT GENERAL OSTEOARTHROSIS BMI 32.0-32.9,adult Tobacco use disorder Hyperlipidemia with target LDL less than 70 Overview: ICD-10 update of inactive term RSD upper limb Overview: left arm Generalized anxiety disorder documented as of this encounter (statuses as of 08/03/2023) Resolved Problems Problem Noted Date Diagnosed Date [...] ISCHEMIC HRT DIS NOS Coronary atherosclerosis of [place] coronary artery 11/24/2016 Tobacco abuse 11/17/2017 documented as of this encounter (statuses as of 08/03/2023) Immunizations Name Administration Dates Next Due COVID-19 [...] No 06/07/2023 documented as of this encounter Plan of Treatment Upcoming Encounters Date Type Department Care Team (Late st Contact Info) Description 08/09/2023 9:40 AM EDT Office Visit Family Medicine [address] [place] [phone] Courtney Restrepo MD [address] [place] [address] [place] [address] 08/10/2023 11:30 AM EDT Office Visit Vascular Surgery, [facility] 132 [facility] [place] [address] Nnamdi King MD [facility] [address] 08/22/2023 11:20 AM EDT Office Visit Pharmacy, [address] [place] [address] [place] [address] 09/27/2023 9:40 AM EDT Office Visit Family Medicine [address] [phone] Courtney Restrepo MD [address] [place] [address] [place] [address] 10/10/2023 4:00 PM EDT Office Visit Nephrology, [facility] 200 [place] [address] Charla Potter MD [address] [place] [address] 10/12/2023 11:00 AM EDT Office Visit Cardiology, [facility] 132 [place] [address] Frantz Herrera MD [address] [place] [address] 12/07/2023 9:20 AM EDT Office Visit Family Medicine [address] [phone] Courtney Restrepo MD [address] [place] [address] [place] [address] Scheduled Procedures Name Priority Associated Diagnoses Date/Ti [...] D LEVEL ONCE IN A LIFETIME-USE SMARTSET# [id number] Completed 10/16/2021, 12/27/2018 Alpha-1 Antitrypsin Discontinued GARDASIL-HPV [...] this encounter Medical Devices Implanted Type Area Distribution Specialist Device Identifier Shelf Expiration Date Model / Serial / Lot Stent Graft Icast [id number] - [id number] - [id number] Implanted:Qty : 1 on 04/14/2022 by Nnamdi King MD at [place] [facility] [place] N/A: Mesenteric Artery GETINGE : VITOR [id number] 02/21/2023 [id number] / [id number] / [id number] Description:implanted in SMA Stent [place] 3.0x15 Rx - [id number] Implanted:Qty : 1 on 11/12/2022 by Patrice Jose MD at CARDIAC LABS [facility] [employer] : VASCULAR [id number] 11/28/2023 [id number] / / [id number] Stent R2p Misago 6fr [id number] - [id number] Implanted:Qty : 1 on 07/18/2023 by Nnamdi King MD at OR [facility] Right: [facility] MEDICAL : CARDIO SYS [id number] 09/11/2023 [id number] / / [id number] documented as of this encounter Advance Directives [...] the patient have Health Care Power of Specialty Person? Yes, in chart and reviewed as current [...] patient or by statute hierarchy) Care Teams Home Therapy Teacher Relationship Specialty Start Date End Date Courtney Restrepo MD [address] [place] [address] [place] [address] PCP - General Family Medicine 10/17/19 documented as of this encounter
--- OUTSIDE RECORDS SUMMARY | 2023-08-31 06:20 | External Medical Summary | Summary of Care ---
Author Name Unknown Organization [facility] Address [address] [place] [address] Phone [phone] Care Team Providers Care Oyster Preparer Name Role Phone Courtney Restrepo MD Primary Care Prov ider Encounter Details Date Type Department Care Team (Late st Contact Info) Description 07/29/2023 Population Health External Data Unspecified Department Allergies [...] edema Nitroglycerin Hypotension 12/20/2018 Penicillins Nausea/vomiting 05/17/2007 [place] Hives 10/02/2018 Propoxyphene Edema face/lips/tongue,Hiv es 06/26/2009 [...] :COPD, group C, by GOLD 2017 classification ([facility] [...] 20 MG Oral Tablet (Lasix)Indications: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 Test performed by Bibiana TUBE BENDING MACHINE OPERATOR CPFT Old [place] (myocardial infarction) 02/21/2019 Bilateral carotid artery stenosis [...] osteoporosis 07/03/2018 Reactive depression 11/17/2017 Atherosclerosis of [place] co ronary artery of [place] heart without angina pectoris 07/22/2015 Overview: Single [...] rinse after steroid. Test performed by Bibiana TUBE BENDING MACHINE OPERATOR CPFT GENERAL OSTEOARTHROSIS BMI 32.0-32.9,adult [...] ISCHEMIC HRT DIS NOS Coronary atherosclerosis of [place] coronary artery 11/24/2016 Tobacco abuse 11/17/2017 documented [...] AM EDT Office Visit Family Medicine [address] [place] [phone] Courtnye Restrepo MD [address] [place] [address] [place] [address] 08/10/2023 11:30 AM EDT Office Visit Vascular Surgery, [facility] 132 [facility] [place] [address] Nnamdi King MD [facility] [address] 08/22/2023 11:20 AM EDT Office Visit Pharmacy, [address] [place] [address] [place] [address] 09/27/2023 9:40 AM EDT Office Visit Family Medicine [address] [phone] Courtney Restrepo MD [address] [place] [address] [place] [address] 10/10/2023 4:00 PM EDT Office Visit Nephrology, [facility] 200 [place] [address] Charla Potter MD 400 [place] [address] 10/12/2023 11:00 AM EDT Office Visit Cardiology, [facility] 132 [place] [address] Frantz Herrera MD [address] [place] [address] 12/07/2023 9:20 AM EDT Office Visit Family Medicine [address] [phone] Courtney Restrepo MD [address] [place] [address] [place] [address] Scheduled Procedures Name Priority Associated Diagnoses Date/Ti [...] D LEVEL ONCE IN A LIFETIME-USE SMARTSET# [id number] Completed 10/16/2021, 12/27/2018 Alpha-1 Antitrypsin Discontinued GARDASIL-HPV [...] this encounter Medical Devices Implanted Type Area Laydown Machine Operator Device Identifier Shelf Expiration Date Model / Serial / Lot Stent Graft Icast [id number] - [id number] - [id number] Implanted:Qty : 1 on 04/14/2022 by Nnamdi King [place] [facility] [place]A: Mesenteric Artery GETINGE : VITOR [id number] 02/21/2023 [id number] / [id number] / [id number] Description:implanted in SMA Stent [place] 3.0x15 Rx - [id number] Implanted:Qty : 1 on 11/12/2022 by Patrice Jose MD [place] [facility] [employer] : VASCULAR [id number] 11/28/2023 [id number] / / [id number] Stent R2p Misago 6fr [id number] - [id number] Implanted:Qty : 1 on 07/18/2023 by Nnamdi King MD [place] [facility] Right: [facility] MEDICAL : CARDIO SYS [id number] 09/11/2023 [id number] / / [id number] documented as of this encounter Advance Directives [...] the patient have Health Care Power of Automotive Parts Clerk? Yes, in chart and reviewed as [...] patient or by statute hierarchy) Care Teams Oyster Preparer Relationship Specialty Start Date End Date Courtney Restrepo MD [address] [place] [address] [place] [address] PCP - General Family Medicine 10/17/19 documented as of this encounter
--- OUTSIDE RECORDS SUMMARY | 2023-08-31 06:20 | External Medical Summary | Summary of Care ---
Author Name Unknown Organization [facility] Address [address] [place] [address] Phone [phone] Care Team Providers Care Telecommunication Systems Designer Name Role Phone Courtney Restrepo MD Primary Care Prov ider Reason for Visit * Reason Onset Date Comments Fax 2023 Encounter Details Date Type Department Care Team (Late st Contact Info) Description 2023 Telephone Vascular Surg [facility] [address] [place] [address] Services, [facility] [address] [place] [address] Fax Allergies Active Allergy Reactions Criticality Noted Date [...] edema Nitroglycerin Hypotension 12/20/2018 Penicillins Nausea/vomiting 05/17/2007 [place] Hives 10/02/2018 Propoxyphene Edema face/lips/tongue,Hiv es 06/26/2009 documented as of this encounter (statuses as of 2023) Medications Medication Sig Dispensed Refills Start Date [...] hemoglobin A1c goal of less than 8.0% ([facility]) Use to test glucose daily. E11.9 100 Each 5 11/29/2022 Active OneTouch Verio w/Device KitIndications:Type 2 diabetes mellitus with hemoglobin A1c goal of less than 8.0% ([facility]) Use to test glucose daily. E11.9 1 Kit 11/29/2022 Active Trelegy Ellipta 100-62.5-25 MCG/ACT Aerosol Powder Breath ActivatedIndications :COPD, group C, by GOLD 2017 classification ([facility]) Inhale 1 puff as directed once a day 1 inhalation daily. Rinse mouth after every use. 60 Blister Dosing Unit 5 11/29/2022 Active NovoLOG FlexPen 100 UNIT/ML Subcutaneous Solution Pen-injector (insulin aspart)Indications:T ype 2 diabetes mellitus with hemoglobin A1c goal of less than 8.0% ([facility]) Units as per sliding scale 3 mL 3 02/04/2023 Active Insulin Glargine Solostar 100 UNIT/ML Subcutaneous Solution Pen-injector (Lantus SoloStar)Indications :Type 2 diabetes mellitus with hemoglobin A1c goal of less than 8.0% ([facility]) Inject 10 Units under the [...] hemoglobin A1c goal of less than 8.0% (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 Test performed by Bibiana DOPE WORKER CPFT Old [place] (myocardial infarction) 02/21/2019 [...] osteoporosis 07/03/2018 Reactive depression 11/17/2017 Atherosclerosis of [place] co ronary artery of [place] heart without angina pectoris 07/22/2015 Overview: Single [...] rinse after steroid. Test performed by Bibiana DOPE WORKER CPFT GENERAL OSTEOARTHROSIS BMI 32.0-32.9,adult Tobacco use disorder Hyperlipidemia with target LDL less than 70 Overview: ICD-10 update of inactive term RSD upper limb Overview: left arm Generalized anxiety disorder documented as of this encounter (statuses as of 2023) Resolved Problems Problem Noted Date Diagnosed Date [...] ISCHEMIC HRT DIS NOS Coronary atherosclerosis of [place] coronary artery 11/24/2016 Tobacco abuse 11/17/2017 documented as of this encounter (statuses as of 2023) Immunizations Name Administration Dates Next Due COVID-19 [...] encounter Miscellaneous Notes * Telephone Encounter - Estela Harmon CRNP - 2023 12:53 PM EDT Scripts reprinted. Will have secretaries fax to [facility] as requested. * Telephone Encounter - Ariane Stratton OSA - 2023 12:[address] of Dr. King, she lost her script that he had given her for [facility]. Pt wondering if the script could please be faxed to the [facility] for her. Fax is [phone] documented in this encounter Plan of Treatment Upcoming Encounters Date Type Department Care Team (Late st Contact Info) Description 08/09/2023 9:40 AM EDT Office Visit Family [address] [place] [phone] Courtney Restrepo MD [address] [place] [address] [place] [address] 08/10/2023 11:30 AM EDT Office Visit Vascular Surgery, [facility] 132 [place] [address] Nnamdi King MD [address] [place] [address] 08/22/2023 11:20 AM EDT Office Visit Pharmacy, [address] [place] [address] [place] [address] 09/27/2023 9:40 AM EDT Office Visit Family [address] [place] [phone] Courtney Restrepo MD [address] [place] [address] [place] [address] 10/10/2023 4:00 PM EDT Office Visit Nephrology, [address] [place] [address] Charla Potter MD [address] [place] [address] [place] [address] 10/12/2023 11:00 AM EDT Office Visit Cardiology, [facility] 132 [facility] [place] [address] Frantz Herrera MD [address] [place] [address] 12/07/2023 9:20 AM EDT Office Visit Family Medicine [address] [place] [phone] Courtney Restrepo MD [address] [place] [address] [place] [address] Scheduled Procedures Name Priority Associated Diagnoses Date/Ti me ESOPHAGOGASTRODUODENOSCOPY ( EGD), FLEXIBLE, TRANSORAL, DIAGNOSTIC Recall Pendleton's esophagus Health Maintenance Due Date Last Done Comments DISCUSS TOBACCO CESSATION (REFER TO SMARTSET #9254) 1949 Cologuard 1994 Fecal Occult Blood Test [...] D LEVEL ONCE IN A LIFETIME-USE SMARTSET# [id number] Completed 10/16/2021, 12/27/2018 Alpha-1 Antitrypsin Discontinued GARDASIL-HPV [...] this encounter Medical Devices Implanted Type Area Chyron Operator Device Identifier Shelf Expiration Date Model / Serial / Lot Stent Graft Icast [id number] - [id number] - [id number] Implanted:Qty : 1 on 04/14/2022 by Nnamdi King MD at [place] [facility] [place] N/A: Mesenteric Artery GETINGE : MAQUET [id number] 02/21/2023 [id number] / [id number] / [id number] Description:implanted in SMA Stent [place] 3.0x15 Rx - [id number] Implanted:Qty : 1 on 11/12/2022 by Patrice Jose MD at [facility]ARDIAC LABS [facility] [place] [facility] [employer] : VASCULAR [id number] 11/28/2023 [id number] / / [id number] Stent R2p Misago 6fr [id number] - [id number] Implanted:Qty : 1 on 07/18/2023 by Nnamdi King MD at OR [facility] [place] Right: [facility] MEDICAL : CARDIO SYS [id number] 09/11/2023 [id number] / / [id number] documented as of this encounter Advance Directives [...] the patient have Health Care Power of Machine Pie Maker? Yes, in chart and reviewed as [...] patient or by statute hierarchy) Care Teams Telecommunication Systems Designer Relationship Specialty Start Date End Date Courtney Restrepo MD [address] [place] [address] [place] [id number] PCP - General Family Medicine 10/17/19 documented as of this encounter
--- OUTSIDE RECORDS SUMMARY | 2023-08-31 06:20 | External Medical Summary | Summary of Care ---
Author Name Unknown Organization [facility] Address [address] [place] [address] Phone [phone] Care Team Providers Care Wind Technician Name Role Phone Courtney Restrepo MD Primary Care Prov ider Reason for Visit * Reason Onset Date Comments Fax 2023 Encounter Details Date Type Department Care Team (Late st Contact Info) Description 2023 Telephone Vascular Surg [facility] [address] [place] [address] Services, [facility] [address] [place] [address] Fax Allergies Active Allergy Reactions Criticality Noted [...] edema Nitroglycerin Hypotension 12/20/2018 Penicillins Nausea/vomiting 05/17/2007 [place] Hives 10/02/2018 Propoxyphene Edema face/lips/tongue,Hiv es 06/26/2009 [...] hemoglobin A1c goal of less than 8.0% ([facility]) Use to test glucose daily. E11.9 100 Each 5 11/29/2022 Active OneTouch Verio w/Device KitIndications:Type 2 diabetes mellitus with hemoglobin A1c goal of less than 8.0% ([facility]) Use to test glucose daily. E11.9 1 Kit 11/29/2022 Active Trelegy Ellipta 100-62.5-25 MCG/ACT Aerosol Powder Breath ActivatedIndications :COPD, group C, by GOLD 2017 classification ([facility]) Inhale 1 puff as directed once a day 1 inhalation daily. Rinse mouth after every use. 60 Blister Dosing Unit 5 11/29/2022 Active NovoLOG FlexPen 100 UNIT/ML Subcutaneous Solution Pen-injector (insulin aspart)Indications:T ype 2 diabetes mellitus with hemoglobin A1c goal of less than 8.0% ([facility]) Units as per sliding scale 3 mL 3 02/04/2023 Active Insulin Glargine Solostar 100 UNIT/ML Subcutaneous Solution Pen-injector (Lantus SoloStar)Indications :Type 2 diabetes mellitus with hemoglobin A1c goal of less than 8.0% ([facility]) Inject 10 Units under the skin every [...] hemoglobin A1c goal of less than 8.0% ([facility]) Test glucose once daily E11.9 100 Strip [...] 20 MG Oral Tablet (Lasix)Indications: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 Test performed by Bibiana RECONCILIATION COORDINATOR CPFT Old [place] (myocardial infarction) 02/21/2019 Bilateral [...] osteoporosis 07/03/2018 Reactive depression 11/17/2017 Atherosclerosis of [place] co ronary artery of [place] heart without angina pectoris 07/22/2015 Overview: Single [...] rinse after steroid. Test performed by Bibiana RECONCILIATION COORDINATOR CPFT GENERAL OSTEOARTHROSIS BMI 32.0-32.9,adult Tobacco use [...] ISCHEMIC HRT DIS NOS Coronary atherosclerosis of [place] coronary artery 11/24/2016 Tobacco abuse 11/17/2017 documented [...] encounter Miscellaneous Notes * Telephone Encounter - Kiko Dennis OSA - 2023 1:05 PM EDT Scripts faxed to [facility] * Telephone Encounter - Estela Harmon CRNP - 2023 12:53 PM EDT Scripts reprinted. Will have secretaries fax to [facility] as requested. * Telephone Encounter - Ariane Stratton OSA - 2023 12:[address] Pt of Dr. King, she lost her script that he had given her for the [facility]. Pt wondering if the script could please be faxed to the [facility] for her. Fax is [phone] documented in this encounter Plan of Treatment Upcoming Encounters Date Type Department Care Team (Late st Contact Info) Description 08/09/2023 9:40 AM EDT Office Visit Family [address] [place] [phone] Courtney Restrepo MD [address] [place] [address] [place] [address] 08/10/2023 11:30 AM EDT Office Visit Vascular Surgery, [facility] [place] [address] Nnamdi King MD [address] [place] [address] 08/22/2023 11:20 AM EDT Office Visit Pharmacy, [address] [place] [address] [place] [address] 09/27/2023 9:40 AM EDT Office Visit Family [address] [place] [phone] Courtney Restrepo MD [address] [place] [address] [place] [address] 10/10/2023 4:00 PM EDT Office Visit Nephrology, [address] [place] [address] Charla Potter MD 400 [facility] [place] [address] 10/12/2023 11:00 AM EDT Office Visit Cardiology, [facility] [address] [place] [address] Frantz Herrera MD [address] [facility] [place] [address] 12/07/2023 9:20 AM EDT Office Visit Family [address] [place] [phone] Courtney Restrepo MD [address] [place] [address] [place] [address] Scheduled Procedures Name Priority Associated Diagnoses Date/Ti me ESOPHAGOGASTRODUODENOSCOPY ( EGD), FLEXIBLE, TRANSORAL, DIAGNOSTIC Recall Pendleton's esophagus Health Maintenance Due Date Last Done Comments DISCUSS TOBACCO CESSATION (REFER TO SMARTSET #6550) 1949 Cologuard 1994 Fecal Occult Blood Test [...] D LEVEL ONCE IN A LIFETIME-USE SMARTSET# [id number] Completed 10/16/2021, 12/27/2018 Alpha-1 Antitrypsin Discontinued GARDASIL-HPV [...] this encounter Medical Devices Implanted Type Area Firefighter Type One Device Identifier Shelf Expiration Date Model / Serial / Lot Stent Graft Icast [id number] - [id number] - [id number] Implanted:Qty : 1 on 04/14/2022 by Nnamdi King MD at [place] [facility] [place] N/A: Mesenteric Artery GETINGE : MAQUET [id number] 02/21/2023 [id number] / [id number] / [id number] Description:implanted in SMA Stent [place] 3.0x15 Rx - [id number] Implanted:Qty : 1 on 11/12/2022 by Patrice Jose MD at [facility]ARD[facility] [place] [employer] : VASCULAR [id number] 11/28/2023 [id number] / / [id number] Stent R2p Misago 6fr [id number] - [id number] Implanted:Qty : 1 on 07/18/2023 by Nnamdi King MD at OR [facility] Right: [facility] MEDICAL : CARDIO SYS [id number] 09/11/2023 [id number] / / [id number] documented as of this encounter Advance Directives [...] the patient have Health Care Power of Engine Test Cell Technician? Yes, in chart and reviewed as current [...] patient or by statute hierarchy) Care Teams Wind Technician Relationship Specialty Start Date End Date Courtney Restrepo MD [address] [place] [address] [place] [address] PCP - General Family Medicine 10/17/19 documented as of this encounter
--- OUTSIDE RECORDS SUMMARY | 2023-08-31 06:21 | External Medical Summary | Summary of Care ---
Author Name Unknown Organization [facility] Address [address] [place] [address] Phone [phone] Care Team Providers Care Intelligence Group Supervisor Name Role Phone Courtney Restrepo MD Primary Care Prov ider Reason for Visit * Reason Onset Date Comments Fax 2023 Encounter Details Date Type Department Care Team (Late st Contact Info) Description 2023 Telephone Vascular Surg [facility] [address] [place] [address] Services, Formerly [facility], [facility] [address] [place] [address] Fax Allergies Active Allergy Reactions Criticality Noted [...] edema Nitroglycerin Hypotension 12/20/2018 Penicillins Nausea/vomiting 05/17/2007 Parmer Hives 10/02/2018 Propoxyphene Edema face/lips/tongue,Hiv es 06/26/2009 [...] hemoglobin A1c goal of less than 8.0% ([facility]) Use to test glucose daily. E11.9 100 Each 5 11/29/2022 Active OneTouch Verio w/Device KitIndications:Type 2 diabetes mellitus with hemoglobin A1c goal of less than 8.0% ([facility]) Use to test glucose daily. E11.9 1 Kit 11/29/2022 Active Trelegy Ellipta 100-62.5-25 MCG/ACT Aerosol Powder Breath ActivatedIndications :COPD, group C, by GOLD 2017 classification ([facility]) Inhale 1 puff as directed once a day 1 inhalation daily. Rinse mouth after every use. 60 Blister Dosing Unit 5 11/29/2022 Active NovoLOG FlexPen 100 UNIT/ML Subcutaneous Solution Pen-injector (insulin aspart)Indications:T ype 2 diabetes mellitus with hemoglobin A1c goal of less than 8.0% ([facility]) Units as per sliding scale 3 mL 3 02/04/2023 Active Insulin Glargine Solostar 100 UNIT/ML Subcutaneous Solution Pen-injector (Lantus SoloStar)Indications :Type 2 diabetes mellitus with hemoglobin A1c goal of less than 8.0% ([facility]) Inject 10 Units under the skin every [...] hemoglobin A1c goal of less than 8.0% ([facility]) Test glucose once daily E11.9 100 Strip [...] rinse after steroid. Test performed by Bibiana PLANNING INTERN CPFT [place] (myocardial infarction) 02/21/2019 Bilateral carotid artery stenosis [...] rinse after steroid. Test performed by Bibiana PLANNING INTERN CPFT GENERAL OSTEOARTHROSIS BMI 32.0-32.9,adult Tobacco use [...] encounter Miscellaneous Notes * Telephone Encounter - Ariane Stratton OSA - 2023 12:[address] Pt of Dr. King, she lost her script that he had given her for the [facility]. Pt wondering if the script could please be faxed to the [facility] for her. Fax is [phone] documented in this encounter Plan of Treatment Upcoming Encounters Date Type Department Care Team (Late st Contact Info) Description 08/09/2023 9:40 AM EDT Office Visit Family Medicine [address] [place] [phone] Courtney Restrepo MD [address] [place] [address] [place] [address] 08/10/2023 11:30 AM EDT Office Visit Vascular Surgery, [facility] [address] [facility] [place] [address] Nnamdi King MD [address] [place] [address] 08/22/2023 11:20 AM EDT Office Visit Pharmacy, [address] [place] [address] [place] [address] 09/27/2023 9:40 AM EDT Office Visit Family [address] [phone] Courtney Restrepo MD [address] [place] [address] [place] [address] 10/10/2023 4:00 PM EDT Office Visit Nephrology, [address] [place] [address] Charla Potter MD [address] [place] [phone] 10/12/2023 11:00 AM EDT Office Visit Cardiology, [facility] [address] [place] [address] Frantz Herrera MD [address] [place] [address] 12/07/2023 9:20 AM EDT Office Visit Family Medicine [address] [phone] Courtney Restrepo MD [address] [place] [address] [place] [address] Scheduled Procedures Name Priority Associated Diagnoses Date/Ti me ESOPHAGOGASTRODUODENOSCOPY ( EGD), FLEXIBLE, TRANSORAL, DIAGNOSTIC Recall Pendleton's esophagus Health Maintenance Due Date Last Done Comments DISCUSS TOBACCO CESSATION (REFER TO SMARTSET #1744) 1950 Cologuard 1994 Fecal Occult Blood Test [...] 06/03/2021, Additional history exists Mammogram 05/19/2024 05/20/2023, 0 08/2021, 05/12/2017, Additional history exists GFR 06/14/2024 [...] D LEVEL ONCE IN A LIFETIME-USE SMARTSET# 24575 Completed 10/16/2021, 12/27/2018 Alpha-1 Antitrypsin Discontinued GARDASIL-HPV [...] this encounter Medical Devices Implanted Type Area Pelota Maker Device Identifier Shelf Expiration Date Model / Serial / Lot Stent Graft Icast [id number] - [id number] - [id number] Implanted:Qty : 1 on 04/14/2022 by Nnamdi King MD at OR [facility] N/A: Mesenteric Artery GETINGE : MAQUET [id number] 02/21/2023 [id number] / [id number] / [id number] Description:implanted in SMA Stent Howie 3.0x15 Rx - [id number] Implanted:Qty : 1 on 11/12/2022 by Patrice Jose MD at CARDIAC LABS [facility] [employer] : VASCULAR [id number] 11/28/2023 [id number] / / [id number] 2 Stent R2p Misago 6fr [id number] - [id number] Implanted:Qty : 1 on 07/18/2023 by Nnamdi King MD at OR [facility] Right: [facility] [employer] : CARDIO SYS [id number] 09/11/2023 [id number] / / [id number] documented as of this encounter Advance Directives [...] the patient have Health Care Power of Manager Trading? Yes, in chart and reviewed as current [...] patient or by statute hierarchy) Care Teams Intelligence Group Supervisor Relationship Specialty Start Date End Date Courtney Restrepo MD [address] [place] [address] [place] [address] PCP - General Family Medicine 10/17/19 documented as of this encounter
--- OUTSIDE RECORDS SUMMARY | 2023-08-31 06:21 | External Medical Summary | Summary of Care ---
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 [place] [address] Frantz Herrera MD [address] [facility] [address] 12/07/2023 9:20 AM EDT Office Visit Family Medicine [address] [place] [phone] Courtney Restrepo MD [address] [place] [address] [place] [phone] Scheduled Procedures Name Priority Associated Diagnoses Date/Ti me ESOPHAGOGASTRODUODENOSCOPY ( EGD), FLEXIBLE, TRANSORAL, DIAGNOSTIC Recall Pendleton's esophagus Health Maintenance Due Date Last Done Comments DISCUSS TOBACCO CESSATION (REFER TO SMARTSET #9152) 1949 Cologuard 1994 Fecal Occult Blood Test [...] D LEVEL ONCE IN A LIFETIME-USE SMARTSET# 06568 Completed 10/16/2021, 12/27/2018 Alpha-1 Antitrypsin Discontinued GARDASIL-HPV [...] this encounter Medical Devices Implanted Type Area Mixing House Operator Device Identifier Shelf Expiration Date Model / Serial / Lot Stent Graft Icast [id number] - [id number] - [id number] Implanted:Qty : 1 on 04/14/2022 by Nnamdi King [place] [facility] [place] Mesenteric Artery GETINGE : MAQUET [id number] 02/21/2023 [id number] / [id number] / [id number] Description:implanted in SMA Stent [place] 3.0x15 Rx - [id number] Implanted:Qty : 1 on 11/12/2022 by Patrice Jose MD at [facility] [place] [employer] : VASCULAR [id number] 11/28/2023 [id number] / / [id number] Stent R2p Misago 6fr [id number] - [id number] Implanted:Qty : 1 on 07/18/2023 by Nnamdi King MD [place] 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 Question Answer Comments Discussion of Advance Directives occurred with: Patient Does the patient have a Living Will? Yes, in chart and reviewed as current Does the patient have Health Care Power of Commercial Light Fixture Assembler? Yes, in chart and reviewed as current Code Status History Code Status Date Activated Date Inactivated Comments Limited Code 01/08/2023 3:00 AM 01/23/2023 8:30 PM Thi s order reflects the patients wishes and were consensually agreed upon. Question Answer Comments Discussion of Advance Directives occurred with: Not Discussed due to patient's condition Bag Valve Device? No Intubation? No Cardiac Compressions? Yes Defibrillation? Yes Synchronized Cardioversion? Yes External Pacemaker? Yes Cardiac Drugs? Yes Full Code 01/08/2023 12:33 AM 01/08/2023 3:00 AM Th is order reflects the patients wishes and were consensually agreed upon. Question Answer Comments Discussion of Advance Directives occurred with: Not Discussed due to patient's condition Limited Code 11/08/2022 9:23 AM 11/24/2022 3:11 PM This order reflects the patients wishes and were consensually agreed upon. Question Answer Comments Discussion of Advance Directives occurred with: Patient Bag Valve Device? Yes Intubation? No Cardiac Compressions? Yes Defibrillation? Yes Synchronized Cardioversion? Yes External Pacemaker? Yes Cardiac Drugs? Yes Limited Code 11/07/2022 8:03 AM 11/08/2022 9:23 AM This order reflects the patients wishes and [...] patient or by statute hierarchy) Care Teams Certified Legal Investigator Relationship Specialty Start Date End Date Courtney Restrepo MD [address] [place] [address] [place] [address] PCP - General Family Medicine 10/17/19 documented as of this encounter
--- OUTSIDE RECORDS SUMMARY | 2023-08-31 06:21 | External Medical Summary | Summary of Care ---
Author Name Unknown Organization [facility] Address [address] [place] [address] Phone [phone] Care Team Providers Care Senior Business Architect Name Role Phone Courtney Restrepo MD Primary Care Prov ider Reason for Visit * Reason Onset Date Comments Advice 07/22/2023 Encounter Details Date Type Department Care Team (Late st Contact Info) Description 07/22/[address] [phone] Courtney Restrepo MD [address] [place] [address] [place] [id number] Bacterial pneumonia Allergies Active Allergy Reactions Criticality Noted Date [...] edema Nitroglycerin Hypotension 12/20/2018 Penicillins Nausea/vomiting 05/17/2007 Cuero Hives 10/02/2018 Propoxyphene Edema face/lips/tongue,Hiv es 06/26/2009 documented as of this encounter (statuses as of 07/25/2023) Medications Medication Sig Dispensed Refills Start Date End Date Status busPIRone HCl 15 MG Oral Tablet (Buspar)Indication s:Anxiety TAKE ONE TABLET TWICE DAILY 180 Tablet 1 10/16/19 Active Clopidogrel Bisulfate 75 MG Oral Tablet [...] bedtime. 180 Capsule 2 10/16/19 23 Active Ipratropium-Albute rol 0.5-2.5 (3) MG/3ML Inhalation Solution (Duoneb)Indication s:COPD exacerbation (HCC) Inhale 3 mL via nebulizer every 4 hours as needed for Shortness of Breath. 100 mL 3 11/30/19 Active Additional Information Patient not taking.Informant: At Discharge, Patient, Reported on 07/18/2023 OneTouch Delica Lancets 30GIndications:Typ e 2 diabetes mellitus with hemoglobin A1c goal of less than 8.0% ([facility]) Use to test glucose daily. E11.9 100 Each 11/30/19 Active OneTouch Verio w/Device KitIndications:Typ e 2 diabetes mellitus with hemoglobin A1c goal of less than 8.0% ([facility]) Use to test glucose daily. E11.9 1 Kit 0 11/30/19 Active Trelegy Ellipta 100-62.5-25 MCG/ACT Aerosol Powder Breath ActivatedIndicatio ns:COPD, group C, by GOLD 2017 classification ([facility]) Inhale 1 puff as directed once a day 1 inhalation daily. Rinse mouth after every use. 60 Blister Dosing Unit 11/30/19 Active NovoLOG FlexPen 100 UNIT/ML Subcutaneous Solution Pen-injector (insulin aspart)Indications :Type 2 diabetes mellitus with hemoglobin A1c goal of less than 8.0% ([facility]) Units as per sliding scale 3 mL 02/05/20 23 Active Insulin Glargine Solostar 100 UNIT/ML Subcutaneous Solution Pen-injector (Lantus SoloStar)Indicatio ns:Type 2 diabetes mellitus with hemoglobin A1c goal of less than 8.0% ([facility]) Inject 10 Units under the [...] hemoglobin A1c goal of less than 8.0% ([facility]) Test glucose once daily E11.9 100 Strip 5 02/23/20 23 Active Calcium Carbonate 600 MG Oral Tablet (Calcium 600) Take 1 Tablet by mouth 2 times a day with morning and evening meals. (Not TUMS) 0 Active Lidocaine 4 % External Patch (Aspercreme) Place 1 Patch over 12 hours topically on the skin daily. 30 Patch 0 04/13/19 24 Active Additional Information Patient not taking.Informant: Patient, Reported on 07/18/2023 Ondansetron HCl 4 MG Oral Tablet (Zofran)Indication s:Nausea Take 1 Tablet by mouth every 8 hours as needed for Nausea. 20 Tablet 0 04/13/19 24 Active Additional Information Patient not taking.Informant: Patient, Reported on 07/18/2023 Polyethylene Glycol 3350 17 GM/SCOOP Oral Powder (MiraLax)Indicatio ns:Other constipation Dissolve one heaping tablespoon in 8 ounces of water or juice - one dose per day as needed for severe constipation 225 g 2 05/23/19 24 Active Aspirin 81 MG Oral Tablet Chewable Take 1 Tablet by mouth in the morning. 30 Tablet 1 06/14/19 24 Active Metoprolol Succinate ER 25 MG Oral Tablet Extended Release 24 Hour (toPROL XL) Take 0.5 Tablets by mouth in the morning. 30 Tablet 0 06/15/19 24 Active Additional Information Patient not taking.Informant: Patient, Reported on 07/18/2023 Naloxone HCl 0.4 MG/ML Injection Solution (Narcan) Inject 1mL into a large muscle for suspected opioid overdose. Seek medical help immediately. http://[email or web address].be/ -[email or web address] 1 mL 3 06/14/19 24 Active Additional Information Patient not taking.Informant: Patient, Reported on 07/18/2023 Pantoprazole Sodium 40 MG Oral Tablet Delayed Release (Protonix)Indicati ons:Iron deficiency anemia due to chronic blood loss,Chronic superficial gastritis with bleeding TAKE 1 TABLET BY MOUTH 30 MINUTES BEFORE FIRST MEAL AND 1 TABLET BEFORE BEDTIME DO NOT CRUSH, SPLIT, OR CHEW 180 Tablet 3 06/22/19 24 Active Furosemide 40 MG Oral Tablet (Lasix) Take 1 Tablet by mouth in the morning. Patient still taking, even though was told not to - refuses to stop it.. 0 Active Sennosides-Docusat e Sodium 8.6-50 MG Oral Tablet (Senokot-S) Take 2 Tablets by mouth in the morning and 2 Tablets before bedtime. 60 Tablet 1 06/30/19 24 Active Baclofen 5 MG Oral Tablet (Lioresal) Take 1 Tablet by mouth in the morning and 1 Tablet at noon and 1 Tablet before bedtime. As needed for muscle spasm. 30 Tablet 0 07/07/19 24 Active oxyCODONE HCl 5 MG Oral Tablet (Oxy IR) Take 1 Tablet by mouth every 8 hours as needed for Pain, Severe for up to 12 days. 12 Tablet 0 07/18/19 24 024 Active Sucralfate 1 GM Oral Tablet (Carafate) Take 1 Tablet by mouth 4 times a day before meals and at bedtime. 120 Tablet 5 07/18/19 24 Active Albuterol Sulfate HFA 108 (90 Base) MCG/ACT Inhalation Aerosol SolutionIndication s:Bacterial pneumonia Use two puffs four times a day as needed for shortness of breath/wheezing 18 g 3 07/22/19 24 Active Gabapentin 300 MG Oral Capsule (Neurontin) Take 1 Capsule by mouth in the morning and 1 Capsule at noon and 1 Capsule before bedtime. 90 Capsule 3 07/25/19 24 Active Albuterol Sulfate HFA 108 (90 Base) MCG/ACT Inhalation Aerosol SolutionIndication s:Bacterial pneumonia Use two puffs four times a day as needed for shortness of breath/wheezing 18 g 3 06/05/19 23 024 Discontinued(Re fill) Loratadine 10 MG Oral Tablet (Claritin) Take 1 Tablet by mouth in the morning. 90 Tablet 3 06/05/19 23 024 Discontinued Gabapentin 300 MG Oral Capsule (Neurontin) Take 1 Capsule by mouth in the morning and 1 Capsule before bedtime. 60 Capsule 3 07/15/19 24 024 Discontinued(Re fill) documented as of this encounter (statuses as of 07/25/2023) Active Problems Problem Noted Date Diagnosed Date Ischemic rest pain of lower extremity 07/14/2023 Ulcer of right foot, limited to breakdown of ski n 07/14/2023 Dependent rubor 07/14/2023 Atherosclerosis of enterprise artery of extremity Pre-ulcerative corn or callous [...] rinse after steroid. Test performed by Bibiana GROUNDSKEEPING MAINTENANCE WORKER CPFT [place] (myocardial infarction) 02/21/2019 Bilateral carotid artery stenosis [...] osteoporosis 07/03/2018 Reactive depression 11/17/2017 Atherosclerosis of enterprise co ronary artery of enterprise heart without angina pectoris 07/22/2015 Overview: Single [...] rinse after steroid. Test performed by Bibiana GROUNDSKEEPING MAINTENANCE WORKER CPFT GENERAL OSTEOARTHROSIS BMI 32.0-32.9,adult Tobacco use disorder Hyperlipidemia with target LDL less than 70 Overview: ICD-10 update of inactive term RSD upper limb Overview: left arm Generalized anxiety disorder documented as of this encounter (statuses as of 07/25/2023) Resolved Problems Problem Noted Date Diagnosed Date [...] ISCHEMIC HRT DIS NOS Coronary atherosclerosis of enterprise coronary artery 11/24/2016 Tobacco abuse 11/17/2017 documented as of this encounter (statuses as of 07/25/2023) Immunizations Name Administration Dates Next Due COVID-19 [...] Telephone Encounter - Courtney Restrepo MD - 07/25/2023 2:06 PM EDT Signed Prescriptions: Disp Refills Albuterol Sulfate HFA 108 (90 Base) MCG/AC*18 g 3 Sig: Use two puffs four times a day as needed for shortness of breath/wheezingAuthorizing Provider: KATERIN DICKENS Gabapentin 300 MG Oral Capsule (Neurontin) 90 Cap*3 Sig: Take 1 Capsule by mouth in the morning and 1 Capsule at noon and 1 Capsule before bedtime.Authorizing Provider: COURTNEY RESTREPO * Telephone Encounter - Renetta Hall CMA - 07/25/2023 1:[address] Waldemar Morejon already ok'd the increase to her Gabapentin in another patient message from 07/14/2023. I pended a new prescription for her because she will need it with the correct directions or she will run out too fast. * Telephone Encounter - Adriana Pinto LPN - 07/22/2023 9:58 AM EDT Pt calling she is constant in pain in left arm from nerve damage. She is inquiring if the gabapentin could be increased to 3 times day? She is not taking anything else for pain. She has oxycodone butis not using it. She also would like refill on her albuterol inhaler. Pending. Please advise. documented in this encounter Plan of Treatment Upcoming Encounters Date Type Department Care Team (Late st Contact Info) Description 08/01/2023 10:00 AM EDT Imaging V[address] Lab, [address] [address] 08/01/2023 11:00 AM EDT Imaging Vascular Lab, [address] [place] [address] 08/01/2023 2:30 PM EDT Office Visit Pharmacy, [address] [place] [address] [place] [address] 08/09/2023 9:40 AM EDT Office Visit Family Medicine [address] [place] [phone] Courtney Restrepo MD [address] [place] [address] [place] [address] 08/10/2023 11:30 AM EDT Office Visit Vascular Surgery, [facility] [address] [place] [address] Nnamdi King MD [address] [place] [address] 09/27/2023 9:40 AM EDT Office Visit Family Medicine [address] [phone] Courtney Restrepo MD [address] [place] [address] [place] [address] 10/10/2023 4:00 PM EDT Office Visit Nephrology, [address] [place] [address] Charla Potter MD [address] [place] [address] 10/12/2023 11:00 AM EDT Office Visit Cardiology, [facility] [address] [place] [address] Frantz Herrera MD [address] [place] [address] 12/07/2023 9:20 AM EDT Office Visit Family Medicine [address] [place] [phone] Courtney Restrepo MD [address] [place] [address] [place] [address] Scheduled Procedures Name Priority Associated Diagnoses Date/Ti [...] D LEVEL ONCE IN A LIFETIME-USE SMARTSET# 29773 Completed 10/16/2021, 12/27/2018 Alpha-1 Antitrypsin Discontinued GARDASIL-HPV [...] this encounter Medical Devices Implanted Type Area Patient Safety Attendant Device Identifier Shelf Expiration Date Model / Serial / Lot Stent Graft Icast [id number] - [id number] - [id number] Implanted:Qty : 1 on 04/14/2022 by Nnamdi King MD [place] [facility] [place] N/A: Mesenteric Artery GETINGE : VITOR [id number] 02/21/2023 [id number] / [id number] / [id number] Description:implanted in SMA Stent [place] 3.0x15 Rx - [id number] Implanted:Qty : 1 on 11/12/2022 by Patrice Jose MD at [facility] [place] [employer] : VASCULAR [id number] 11/28/2023 [id number] / / [id number] Stent R2p Misago 6fr [id number] - [id number] Implanted:Qty : 1 on 07/18/2023 by Nnamdi King MD at [place] [facility] [place] Right: [facility] : CARDIO SYS [id number] 09/11/2023 [id number] / / [id number] documented as of this encounter Visit Diagnoses Diagnosis Bacterial pneumonia Bacterial pneumonia, unspecified documented in this encounter Advance Directives Latest [...] the patient have Health Care Power of Fretted Instrument Repairer? Yes, in chart and reviewed as current [...] patient or by statute hierarchy) Care Teams Senior Business Architect Relationship Specialty Start Date End Date Courtney Restrepo MD [address] [place] [address] [place] [address] PCP - General Family Medicine 10/17/19 documented as of this encounter
--- OUTSIDE RECORDS SUMMARY | 2023-08-31 06:21 | External Medical Summary | Summary of Care ---
Author Name Unknown Organization [facility] Address [address] [place] [address] Phone [phone] Care Team Providers Care Residential Finish Carpenter Name Role Phone Courtney Penaloza MD Primary Care Prov ider Reason for Visit * Reason Onset Date Comments Medication Refill 07/28/2023 Encounter Details Date Type Department Care Team (Late st Contact Info) Description 07/28/[address] [phone] Courtney Penaloza MD [address] [place], [place] [address] [phone] Allergies Active Allergy Reactions Criticality Noted Date [...] edema Nitroglycerin Hypotension 12/20/2018 Penicillins Nausea/vomiting 05/17/2007 [place] Hives 10/02/2018 Propoxyphene Edema face/lips/tongue,Hiv es 06/26/2009 documented as of this encounter (statuses as of 07/28/2023) Medications Medication Sig Dispensed Refills Start Date End Date Status busPIRone HCl 15 MG Oral Tablet (Buspar)Indications :Anxiety TAKE ONE TABLET TWICE DAILY 180 Tablet 1 3 Active Clopidogrel Bisulfate 75 MG Oral Tablet (pLAVix)Indications :Asymptomatic bilateral carotid artery stenosis Take 1 Tablet (75 mg) in the morning by mouth. 90 Tablet 2 3 Active DULoxetine HCl 30 MG Oral [...] test glucose daily. E11.9 1 Kit 0 3 Active Trelegy Ellipta 100-62.5-25 MCG/ACT Aerosol Powder Breath ActivatedIndication s:COPD, group C, by GOLD 2017 classification (HCC) Inhale 1 puff as directed once a [...] hemoglobin A1c goal of less than 8.0% ([facility]) Test glucose once daily E11.9 [...] OR CHEW 180 Tablet 3 4 Active Furosemide 40 MG Oral Tablet (Lasix) Take 1 Tablet by mouth in the morning. Patient still taking, even though was told not to - refuses to stop it.. 0 Active Sennosides-Docusate Sodium 8.6-50 MG Oral Tablet [...] needed for muscle spasm. 30 Tablet 0 4 Active oxyCODONE HCl 5 MG Oral Tablet (Oxy IR) Take 1 Tablet by mouth every 8 hours as needed for Pain, Severe. 12 Tablet 0 4 Active Ipratropium-Albuter ol 0.5-2.5 (3) MG/3ML Inhalation Solution (Duoneb)Indications :COPD exacerbation (HCC) Inhale 3 mL via nebulizer every 4 hours as needed for Shortness of Breath. 100 mL 3 3 07/18/19 24 Discontinu ed(Patient preference /discontin uation) Lidocaine 4 % External Patch (Aspercreme) Place 1 Patch over 12 hours topically on the skin daily. 30 Patch 0 4 07/18/19 24 Discontinu ed(Patient preference /discontin uation) Ondansetron HCl 4 MG Oral Tablet (Zofran)Indications :Nausea Take 1 Tablet by mouth every 8 hours as needed for Nausea. 20 Tablet 0 4 07/18/19 24 Discontinu ed(Patient preference /discontin uation) Metoprolol Succinate ER 25 MG Oral Tablet Extended Release 24 Hour (toPROL XL) Take 0.5 Tablets by mouth in the morning. 30 Tablet 0 4 07/15/19 24 Discontinu ed(End of Procedure) Naloxone HCl 0.4 MG/ML Injection Solution (Narcan) Inject 1mL into a large muscle for suspected opioid overdose. Seek medical help immediately. [email or web address] 1 mL 3 4 07/18/19 24 Discontinu ed(Patient preference /discontin uation) oxyCODONE HCl 5 MG Oral Tablet (Oxy IR) Take 1 Tablet by mouth every 8 hours as needed for Pain, Severe for up to 12 days. 12 Tablet 0 4 07/28/19 24 Discontinu ed(Refill) documented as of this encounter (statuses as of 07/28/2023) Active Problems Problem Noted Date Diagnosed Date Ischemic rest pain of lower extremity 07/14/2023 Ulcer of right foot, limited to breakdown of ski n 07/14/2023 Dependent rubor 07/14/2023 Atherosclerosis of [place] artery of extremity Pre-ulcerative corn or callous [...] rinse after steroid. Test performed by Bibiana ARC WELDER APPRENTICE CPFT Old CT (myocardial infarction) 02/21/2019 Bilateral [...] osteoporosis 07/03/2018 Reactive depression 11/17/2017 Atherosclerosis of [place] co ronary artery of [place] heart without angina pectoris 07/22/2015 Overview: Single [...] rinse after steroid. Test performed by Bibiana ARC WELDER APPRENTICE CPFT GENERAL OSTEOARTHROSIS BMI 32.0-32.9,adult Tobacco use [...] ISCHEMIC HRT DIS NOS Coronary atherosclerosis of [place] coronary artery 11/24/2016 Tobacco abuse 11/17/2017 documented [...] Miscellaneous Notes * Telephone Encounter - Courtney Penaloza MD - 07/28/2023 3:50 PM EDT Signed Prescriptions: Disp Refills oxyCODONE HCl 5 MG Oral Tablet (Oxy IR) 12 Tab*0 Sig: Take 1 Tablet by mouth every 8 hours as needed for Pain, Severe. Authorizing Provider: COURTENY PENALOZA * Telephone Encounter - Adriana Pinto LPN - 07/28/2023 2:27 PM EDT Pending Prescriptions: Disp Refills oxyCODONE HCl 5 MG Oral Tablet (Oxy IR) 12 Tab*0 Sig: Take 1 Tablet by mouth every 8 hours as needed for Pain, Severe. Last Visit: 07/12/2023 (in office), 11/29/2022 (telemedicine) Next Visit: 07/28/2023 Last date the medication was ordered: 07/18/23 Patient Active Problem List Diagnosis Code Moderate persistent asthma without complication J45.40 GENERAL OSTEOARTHROSIS M15.9 Cerebrovascular disease, arteriosclerotic, post-stroke I67.2, Z86.73 ADVANCE DIRECTIVE INFORMATION BMI 32.0-32.9,adult Z68.32 Tobacco use disorder F17.200 Hyperlipidemia with target LDL less than 70 E78.5 RSD upper limb G90.519 Type 2 diabetes mellitus with hemoglobin A1c goal of less than 8.0% ([facility]) E11.9 Controlled substance agreement signed Z79.899 Generalized anxiety disorder F41.1 Atherosclerosis of [place] coronary artery of [place] heart without angina pectoris I25.10 Reactive depression F32.9 Senile osteoporosis M81.0 PAD (peripheral artery disease) ([facility]) I73.9 Iron deficiency anemia due to chronic blood loss D50.0 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 K22.70 Chronic superficial gastritis with bleeding K29.31 Gastrointestinal hemorrhage with melena K92.1 Lung nodules R91.8 Moderate mitral regurgitation I34.[address] (myocardial infarction) I25.2 Bilateral carotid artery stenosis I65.23 DM type 2 with diabetic peripheral neuropathy ([facility]) E11.42 Right hand tendonitis M77.8 Generalized arthritis M19.90 Hand arthritis M19.049 Centrilobular emphysema ([facility]) J43.2 Polyneuropathy in other diseases classified elsewhere ([facility]) G63 Superior mesenteric artery stenosis ([facility]) 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 ([facility]) I77.1 Major depressive disorder, recurrent, unspecified ([facility]) F33.9 Non-proliferative diabetic retinopathy, both eyes ([facility]) E11.3293 Recurrent major depressive disorder, in partial remission ([facility]) F33.41 Mesenteric ischemia, chronic ([facility]) K55.1 COPD, group D, by GOLD 2017 classification ([facility]) J44.9 Chronic ischemic heart disease I25.9 Advanced directives, counseling/discussion Z71.89 Type 2 diabetes mellitus with peripheral artery disease ([facility]) E11.51 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- dominant side ([facility]) I69.354 Wound drainage T14.8XXA 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 History of cardiac arrest Z86.74 Shock ([facility]) R57.9 Lactic acidosis E87.20 Transaminitis R74.01 Encephalopathy acute G93.40 Pathological fracture of vertebra due to osteoporosis with routine healing, subsequent encounter M80.08XD S/P AKA (above knee amputation), left ([facility]) Z89.612 Status post below-knee amputation of left lower extremity ([facility]) Z89.512 Pre-ulcerative corn or callous L84 Ischemic rest pain of lower extremity M79.606, I99.8 Ulcer of right foot, limited to breakdown of skin ([facility]) L97.511 Dependent rubor L53.9 Atherosclerosis of [place] artery of extremity ([facility]) I70.209 Labs: Lab Results Component Value Date/Time CREATININE [...] 08/01/2023 10:00 AM EDT Imaging Vascular Lab, [address] [place] [address] 08/01/2023 11:00 AM EDT Imaging Vascular Lab, [address] [place] [address] 08/01/2023 2:30 PM EDT Office Visit Pharmacy, [address] [place] [address] [place] [address] 08/09/2023 9:40 AM EDT Office Visit Family Medicine [address] [place] [phone] Courtney Penaloza MD [address] [place] [address] [place] [address] 08/10/2023 11:30 AM EDT Office Visit Vascular Surgery, [facility] [address] [place] [address] Nnamdi King MD [address] [place] [address] 09/27/2023 9:40 AM EDT Office Visit Family Medicine [address] [phone] Courtney Penaloza MD [address] [place] [address] [place] [address] 10/10/2023 4:00 PM EDT Office Visit Nephrology, [address] [address] Charla Potter MD [address] [place] [address] 10/12/2023 11:00 AM EDT Office Visit Cardiology, [facility] [address] [place] [address] Frantz Herrera MD [address] [place], [place] [id number] 12/07/2023 9:20 AM EDT Office Visit Family Medicine [address] [phone] Courtney Penaloza MD [address] [place] [address] [place] [address] Scheduled Procedures Name Priority Associated Diagnoses Date/Ti [...] D LEVEL ONCE IN A LIFETIME-USE SMARTSET# 61692 Completed 10/16/2021, 12/27/2018 Alpha-1 Antitrypsin Discontinued GARDASIL-HPV [...] this encounter Medical Devices Implanted Type Area Flotation Tender Helper Device Identifier Shelf Expiration Date Model / Serial / Lot Stent Graft Icast [id number] - [id number] - [id number] Implanted:Qty : 1 on 04/14/2022 by Nnamdi King MD at [place] [facility] [place] N/A: Mesenteric Artery GETINGE : MAQUET [id number] 02/21/2023 [id number] / [id number] Description:implanted in SMA Stent [place] 3.0x15 Rx - [id number] Implanted:Qty : 1 on 11/12/2022 by Patrice Jose MD at [facility]S [facility] [place] [employer] : VASCULAR [id number] 11/28/2023 [id number] / / [id number] 2 Stent R2p Misago 6fr [id number] - [id number] Implanted:Qty : 1 on 07/18/2023 by Nnamdi King MD at OR [facility] [place] Right: [facility] MEDICAL : CARDIO SYS [id number] 09/11/2023 [id number] / / [id number] documented as of this encounter Advance Directives Latest Code Status [...] the patient have Health Care Power of Picture Painter? Yes, in chart and reviewed as current [...] patient or by statute hierarchy) Care Teams Residential Finish Carpenter Relationship Specialty Start Date End Date Courtney Penaloza MD [address] [place] [address] [place] [address] PCP - General Family Medicine 10/17/19 documented as of this encounter
--- OUTSIDE RECORDS SUMMARY | 2023-08-31 06:21 | External Medical Summary | Summary of Care ---
Author Name Unknown Organization [facility] Address [address] [place] [address] Phone [phone] Care Team Providers Care 3D Modeler Name Role Phone Courtney Penaloza MD Primary Care Prov ider Reason for Visit * Reason Onset Date Comments Medication Refill 07/26/2023 Encounter Details Date Type Department Care Team (Late st Contact Info) Description 07/26/[address] [phone] Courtney Penaloza MD [address] [place], [place] [address] [phone] Allergies Active Allergy Reactions Criticality Noted Date [...] edema Nitroglycerin Hypotension 12/20/2018 Penicillins Nausea/vomiting 05/17/2007 [place] Hives 10/02/2018 Propoxyphene Edema face/lips/tongue,Hiv es 06/26/2009 documented as of this encounter (statuses as of 07/26/2023) Medications Medication Sig Dispensed Refills Start Date [...] before bedtime. 180 Capsule 2 3 Active Ipratropium-Albuter ol 0.5-2.5 (3) MG/3ML Inhalation Solution (Duoneb)Indications :COPD exacerbation (HCC) Inhale 3 mL via nebulizer every 4 hours as needed for Shortness of Breath. 100 mL 3 3 Active Additional Information Patient not taking.Informant: At Discharge, Patient, Reported on 07/18/2023 OneTouch Deldwayne Lancets 30GIndications:Type 2 diabetes mellitus with hemoglobin A1c goal of less than 8.0% ([facility]) Use to test glucose daily. E11.9 100 Each 5 3 Active OneTouch Verio w/Device KitIndications:Type 2 diabetes mellitus with hemoglobin A1c goal of less than 8.0% ([facility]) Use to test glucose daily. [...] A1c goal of less than 8.0% ([facility]) Inject 10 Units under the [...] A1c goal of less than 8.0% ([facility]) Test glucose once daily E11.9 100 Strip 5 3 Active Calcium Carbonate 600 MG Oral Tablet (Calcium 600) Take 1 Tablet by mouth 2 times a day with morning and evening meals. (Not TUMS) 0 Active Lidocaine 4 % External Patch (Aspercreme) Place 1 Patch over 12 hours topically on the skin daily. 30 Patch 0 4 Active Additional Information Patient not taking.Informant: Patient, Reported on 07/18/2023 Ondansetron HCl 4 MG Oral Tablet (Zofran)Indications :Nausea Take 1 Tablet by mouth every 8 hours as needed for Nausea. 20 Tablet 0 4 Active Additional Information Patient not taking.Informant: [...] the morning. 30 Tablet 1 4 Active Metoprolol Succinate ER 25 MG Oral Tablet Extended Release 24 Hour (toPROL XL) Take 0.5 Tablets by mouth in the morning. 30 Tablet 0 4 Active Additional Information Patient not taking.Informant: Patient, Reported on 07/18/2023 Naloxone HCl 0.4 MG/ML Injection Solution (Narcan) Inject 1mL into a large muscle for suspected opioid overdose. Seek medical help immediately. [email or web address] 1 mL 3 4 Active Additional Information Patient not taking.Informant: [...] before bedtime. 60 Tablet 1 4 Active oxyCODONE HCl 5 MG Oral Tablet (Oxy IR) Take 1 Tablet by mouth every 8 hours as needed for Pain, Severe for up to 12 days. 12 Tablet 0 4 07/30/19 24 Active Sucralfate 1 GM Oral Tablet [...] muscle spasm. 30 Tablet 0 4 Active Baclofen 5 MG Oral Tablet (Lioresal) Take 1 Tablet by mouth in the morning and 1 Tablet at noon and 1 Tablet before bedtime. As needed for muscle spasm. 30 Tablet 0 4 05/14/20 24 Discontinu ed(Refill) documented as of this encounter (statuses as of 07/26/2023) Active Problems Problem Noted Date Diagnosed Date Ischemic rest pain of lower extremity 07/14/2023 Ulcer of right foot, limited to breakdown of ski n 07/14/2023 Dependent rubor 07/14/2023 Atherosclerosis of [place] artery of extremity Pre-ulcerative corn or callous [...] rinse after steroid. Test performed by Bibiana DELIVERY HELPER CPFT Old [place] (myocardial infarction) 02/21/2019 Bilateral carotid artery stenosis [...] osteoporosis 07/03/2018 Reactive depression 11/17/2017 Atherosclerosis of [place] co ronary artery of [place] heart without angina pectoris 07/22/2015 Overview: Single [...] rinse after steroid. Test performed by Bibiana DELIVERY HELPER CPFT GENERAL OSTEOARTHROSIS BMI 32.0-32.9,adult Tobacco use disorder Hyperlipidemia with target LDL less than 70 Overview: ICD-10 update of inactive term RSD upper limb Overview: left arm Generalized anxiety disorder documented as of this encounter (statuses as of 07/26/2023) Resolved Problems Problem Noted Date Diagnosed Date [...] ISCHEMIC HRT DIS NOS Coronary atherosclerosis of [place] coronary artery 11/24/2016 Tobacco abuse 11/17/2017 documented as of this encounter (statuses as of 07/26/2023) Immunizations Name Administration Dates Next Due COVID-19 [...] Telephone Encounter - Courtney Penaloza MD - 07/26/2023 1:10 PM EDT Signed Prescriptions: Disp Refills Baclofen 5 MG Oral Tablet (Lioresal) 30 Tab*0 Sig: Take 1 Tablet by mouth in the morning and 1 Tablet at noon and 1 Tablet before bedtime. As needed for muscle spasm. Authorizing Provider: COURTNEY PENALOZA * Telephone Encounter - Yanni Charles LPN - 07/26/2023 12:23 PM EDT Pending Prescriptions: Disp Refills Baclofen 5 MG Oral Tablet (Lioresal) 30 Tab*0 Sig: Take 1 Tablet by mouth in the morning and 1 Tablet at noon and 1 Tablet before bedtime. As needed for muscle spasm. Last Visit: 07/12/2023 (in office), 11/29/2022 (telemedicine) Next Visit: 08/09/2023 Last date the medication was ordered: 07/07/23 Patient Active Problem List Diagnosis Code Moderate persistent asthma without complication J45.40 GENERAL OSTEOARTHROSIS M15.9 Cerebrovascular disease, arteriosclerotic, post-stroke I67.2, Z86.73 ADVANCE DIRECTIVE INFORMATION BMI 32.0-32.9,adult Z68.32 Tobacco use disorder F17.200 Hyperlipidemia with target LDL less than 70 E78.5 RSD upper limb G90.519 Type 2 diabetes mellitus with hemoglobin A1c goal of less than 8.0% ([facility]) E11.9 Controlled substance agreement signed Z79.899 Generalized anxiety disorder F41.1 Atherosclerosis of [place] coronary artery of [place] heart without angina pectoris I25.10 Reactive depression F32.9 Senile osteoporosis M81.0 PAD (peripheral artery disease) ([facility]) I73.9 Iron deficiency anemia due to chronic blood loss D50.0 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 K22.70 Chronic superficial gastritis with bleeding K29.31 Gastrointestinal hemorrhage with melena K92.1 Lung nodules R91.8 Moderate mitral regurgitation I34.0 Old PR (myocardial infarction) I25.2 Bilateral carotid artery stenosis I65.23 DM type 2 with diabetic peripheral neuropathy ([facility]) E11.42 Right hand tendonitis M77.8 Generalized arthritis M19.90 Hand arthritis M19.049 Centrilobular emphysema ([facility]) J43.2 Polyneuropathy in other diseases classified elsewhere ([facility]) G63 Superior mesenteric artery stenosis ([facility]) 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 ([facility]) I77.1 Major depressive disorder, recurrent, unspecified ([facility]) F33.9 Non-proliferative diabetic retinopathy, both eyes ([facility]) E11.3293 Recurrent major depressive disorder, in partial remission ([facility]) F33.41 Mesenteric ischemia, chronic ([facility]) K55.1 COPD, group D, by GOLD 2017 classification ([facility]) J44.9 Chronic ischemic heart disease I25.9 Advanced directives, counseling/discussion Z71.89 Type 2 diabetes mellitus with peripheral artery disease ([facility]) E11.51 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- dominant side ([facility]) I69.354 Wound drainage T14.8XXA 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 History of cardiac arrest Z86.74 Shock ([facility]) R57.9 Lactic acidosis E87.20 Transaminitis R74.01 Encephalopathy acute G93.40 Pathological fracture of vertebra due to osteoporosis with routine healing, subsequent encounter M80.08XD S/P AKA (above knee amputation), left ([facility]) Z89.612 Status post below-knee amputation of left lower extremity ([facility]) Z89.512 Pre-ulcerative corn or callous L84 Ischemic rest pain of lower extremity M79.606, I99.8 Ulcer of right foot, limited to breakdown of skin ([facility]) L97.511 Dependent rubor L53.9 Atherosclerosis of [place] artery of extremity ([facility]) I70.209 Labs: Lab Results Component Value Date/Time [...] Care Team (Late st Contact Info) Description 07/27/2023 11:20 AM EDT Office Visit Family Medicine [address] [place] [phone] Christie Harrison PA-C [address] [place] [address] [place] [address] 08/01/2023 10:00 AM EDT Imaging Vascular Lab, [address] [place] [address] 08/01/2023 11:00 AM EDT Imaging Vascular Lab, [address] [place] [address] 08/01/2023 2:30 PM EDT Office Visit Pharmacy, [address] [place] [address] [place] [address] 08/09/2023 9:40 AM EDT Office Visit Family [address] [place] [phone] Courtney Penaloza MD [address] [place] [address] [place] [address] 08/10/2023 11:30 AM EDT Office Visit Vascular Surgery, [facility] [address] [facility] [place] [address] Nnamdi King MD [address] [place], [place] [id number] 09/27/2023 9:40 AM EDT Office Visit [address] [place] [phone] Courtney Penaloza MD [address] [place] [address] [place] [address] 10/10/2023 4:00 PM EDT Office Visit Nephrology, [address] [place] [address] Charla Potter MD [address] [place] [address] [place] [address] 10/12/2023 11:00 AM EDT Office Visit Cardiology, [facility] [address] [place] [address] Frantz Herrera MD [address] [place], [place] [phone] 12/07/2023 9:20 AM EDT Office Visit Family Medicine [address] [place] [phone] Courtney Penaloza MD [address] [place] [address] [place] [address] Scheduled Procedures Name Priority Associated Diagnoses Date/Ti me ESOPHAGOGASTRODUODENOSCOPY ( EGD), FLEXIBLE, TRANSORAL, DIAGNOSTIC Recall Pendleton's esophagus Health Maintenance Due Date Last Done Comments DISCUSS TOBACCO CESSATION (REFER TO SMARTSET #2844) 1949 Cologuard 1994 Fecal Occult Blood Test [...] 05/12/2017, Additional history exists GFR 06/14/2024 06/15/2023, 04/04/2023, 06/13/2023, Additional history exists O2 ASSESSMENT COMPLETED IN PAST YEAR FOR COPD 07/17/2024 07/18/2023 DTaP,Tdap,and Td Vaccines (3 - Td or Tdap) 07/15/2031 07/14/2021 (Declined), 07/27/2010 Pneumococcal Vaccine: 65+ Years Completed 10/27/2015, 08/08/2014, 05/30/2008 RETIRED - COLONOSCOPY-EVERY 5 YRS AGES 18-100 Discontinued 09/27/2018, 09/27/2018, 07/13/2018, Additional history exists VITAMIN D LEVEL ONCE IN A LIFETIME-USE SMARTSET# 83538 Completed 10/16/2021, 12/27/2018 Alpha-1 Antitrypsin Discontinued GARDASIL-HPV [...] this encounter Medical Devices Implanted Type Area Players Assistant Device Identifier Shelf Expiration Date Model / Serial / Lot Stent Graft Icast [id number] - [id number] - [id number] Implanted:Qty : 1 on 04/14/2022 by Nnamdi King MD at OR [facility] [place] N/A: Mesenteric Artery GETINGE : MAQUET [id number] 02/21/2023 [id number] / [id number] / [id number] Description:implanted in SMA Stent [place] 3.0x15 Rx - [id number] Implanted:Qty : 1 on 11/12/2022 by Patrice Jose MD at [facility]ARDIAC LABS [facility] [place] [employer] : VASCULAR [id number] 11/28/2023 [id number] / / [id number] Stent R2p Misago [id number] - [id number] Implanted:Qty : 1 on 07/18/2023 by Nnamdi King MD at OR [facility] [place] Right: [facility] : CARDIO SYS [id number] 09/11/2023 [id number] / [id number] documented as of this encounter Advance Directives [...] the patient have Health Care Power of Clam Dredge Boat Captain? Yes, in chart and reviewed as current [...] patient or by statute hierarchy) Care Teams 3D Modeler Relationship Specialty Start Date End Date Courtney Penaloza MD [address] [place] [address] [place] [address] PCP - General Family Medicine 10/17/19 documented as of this encounter
--- OUTSIDE RECORDS SUMMARY | 2023-08-31 06:21 | External Medical Summary | Summary of Care ---
Author Name Unknown Organization [facility] Address [address] [place] [address] Phone [phone] Care Team Providers Care Clerk General Name Role Phone Courtney Restrepo MD Primary Care Prov ider Encounter Details Date Type Department Care Team (Late st Contact Info) Description 07/21/2023 Result Scan Unspecified Department <No scans attached> Allergies Active Allergy Reactions Criticality Noted Date [...] edema Nitroglycerin Hypotension 12/20/2018 Penicillins Nausea/vomiting 05/17/2007 [place] Hives 10/02/2018 Propoxyphene Edema face/lips/tongue,Hiv es 06/26/2009 [...] before bedtime. 180 Capsule 2 10/15/2022 Active Ipratropium-Albutero l 0.5-2.5 (3) MG/3ML Inhalation Solution (Duoneb)Indications: COPD exacerbation (HCC) Inhale 3 mL via nebulizer every 4 hours as needed for Shortness of Breath. 100 mL 3 11/29/2022 Active Additional Information Patient not taking.Informant: At Discharge, Patient, Reported on 07/18/2023 XDC Lancets 30GIndications:Type 2 diabetes mellitus with hemoglobin A1c goal of less than 8.0% ([facility]) Use to test glucose daily. E11.9 100 Each 5 11/29/2022 Active LeattTouch Verio w/Device KitIndications:Type 2 diabetes mellitus with hemoglobin A1c goal of less than 8.0% ([facility]) Use to test glucose daily. E11.9 1 Kit 0 11/29/2022 Active Trelegy Ellipta 100-62.5-25 MCG/ACT Aerosol Powder Breath ActivatedIndications :COPD, group C, by GOLD 2017 classification ([facility]) Inhale 1 puff as directed once a day 1 inhalation daily. Rinse mouth after every use. 60 Blister Dosing Unit 5 11/29/2022 Active NovoLOG FlexPen 100 UNIT/ML Subcutaneous Solution Pen-injector (insulin aspart)Indications:T ype 2 diabetes mellitus with hemoglobin A1c goal of less than 8.0% ([facility]) Units as per sliding scale 3 mL 3 02/04/2023 Active Insulin Glargine Solostar 100 UNIT/ML Subcutaneous Solution Pen-injector (Lantus SoloStar)Indications :Type 2 diabetes mellitus with hemoglobin A1c goal of less than 8.0% ([facility]) Inject 10 Units under the [...] hemoglobin A1c goal of less than 8.0% ([facility]) Test glucose once daily E11.9 100 Strip 5 02/22/2023 Active Calcium Carbonate 600 MG Oral Tablet (Calcium 600) Take 1 Tablet by mouth 2 times a day with morning and evening meals. (Not TUMS) 0 Active Lidocaine 4 % External Patch (Aspercreme) Place 1 Patch over 12 hours topically on the skin daily. 30 Patch 0 04/13/2023 Active Additional Information Patient not taking.Informant: Patient, Reported on 07/18/2023 Ondansetron HCl 4 MG Oral Tablet (Zofran)Indications: Nausea Take 1 Tablet by mouth every 8 hours as needed for Nausea. 20 Tablet 0 04/13/2023 Active Additional Information Patient not taking.Informant: Patient, [...] the morning. 30 Tablet 1 06/14/2023 Active Metoprolol Succinate ER 25 MG Oral Tablet Extended Release 24 Hour (toPROL XL) Take 0.5 Tablets by mouth in the morning. 30 Tablet 0 06/15/2023 Active Additional Information Patient not taking.Informant: Patient, Reported on 07/18/2023 Naloxone HCl 0.4 MG/ML Injection Solution (Narcan) Inject 1mL into a large muscle for suspected opioid overdose. Seek medical help immediately. http://[email or web address].[email or web address] 1 mL 3 06/14/2023 Active Additional Information Patient not taking.Informant: Patient, Reported on 07/18/2023 Pantoprazole Sodium 40 MG Oral Tablet Delayed Release (Protonix)Indication s:Iron deficiency anemia due to chronic blood loss,Chronic superficial gastritis with bleeding TAKE 1 TABLET BY MOUTH 30 MINUTES BEFORE FIRST MEAL AND 1 TABLET BEFORE BEDTIME DO NOT CRUSH, SPLIT, OR CHEW 180 Tablet 3 06/22/2023 Active Furosemide 40 MG Oral Tablet (Lasix) Take 1 Tablet by mouth in the morning. Patient still taking, even though was told not to - refuses to stop it.. 0 Active Sennosides-Docusate Sodium 8.6-50 MG Oral Tablet (Senokot-S) Take 2 Tablets by mouth in the morning and 2 Tablets before bedtime. 60 Tablet 1 06/30/2023 Active Baclofen 5 MG Oral Tablet (Lioresal) Take 1 Tablet by mouth in the morning and 1 Tablet at noon and 1 Tablet before bedtime. As needed for muscle spasm. 30 Tablet 0 07/07/2023 Active Gabapentin 300 MG Oral Capsule (Neurontin) Take 1 Capsule by mouth in the morning and 1 Capsule before bedtime. 60 Capsule 3 07/15/2023 Active oxyCODONE HCl 5 MG Oral Tablet (Oxy IR) Take 1 Tablet by mouth every 8 hours as needed for Pain, Severe for up to 12 days. 12 Tablet 0 07/18/2023 Active Sucralfate 1 GM Oral Tablet (Carafate) Take 1 Tablet by mouth 4 times a day before meals and at bedtime. 120 Tablet 5 07/18/2023 Active Loratadine 10 MG Oral Tablet (Claritin) Take 1 Tablet by mouth in the morning. 90 Tablet 3 07/22/2023 Active documented as of this encounter (statuses as of 07/25/2023) Active Problems Problem Noted Date Diagnosed Date Ischemic rest pain of lower extremity 07/14/2023 Ulcer of right foot, limited to breakdown of ski n 07/14/2023 Dependent rubor 07/14/2023 Atherosclerosis of minto artery of extremity Pre-ulcerative corn or callous [...] rinse after steroid. Test performed by Bibiana RECREATION TEACHER CPFT Old [place] (myocardial infarction) 02/21/2019 Bilateral carotid artery stenosis [...] osteoporosis 07/03/2018 Reactive depression 11/17/2017 Atherosclerosis of minto co ronary artery of minto heart without angina pectoris 07/22/2015 Overview: Single [...] rinse after steroid. Test performed by Bibiana RECREATION TEACHER CPFT GENERAL OSTEOARTHROSIS BMI 32.0-32.9,adult Tobacco use [...] ISCHEMIC HRT DIS NOS Coronary atherosclerosis of minto coronary artery 11/24/2016 Tobacco abuse 11/17/2017 documented [...] 08/01/2023 10:00 AM EDT Imaging Vascular Lab, [address] [place] [address] 08/01/2023 11:00 AM EDT Imaging Vascular Lab, [address] [place] [address] 08/01/2023 2:30 PM EDT Office Visit Pharmacy, [address] [place] [address] [place] [address] 08/09/2023 9:40 AM EDT Office Visit Family [address] [place] [phone] Courtney Restrepo MD [address] [place] [address] [place] [address] 08/10/2023 11:30 AM EDT Office Visit Vascular Surgery, [address] [place] [address] Nnamdi King MD [address] [place] [address] 09/27/2023 9:40 AM EDT Office Visit Family Medicine [address] [place] [phone] Courtney Restrepo MD [address] [place] [address] [place] [address] 10/10/2023 4:00 PM EDT Office [place] Nephrology, [address] [place] [address] Charla Potter MD [address] [place] [address] 10/12/2023 11:00 AM EDT Office Visit Cardiology, [facility] [address] [place] [address] Frantz Herrera MD [address] [facility] [place] [phone] 12/07/2023 9:20 AM EDT Office Visit Family Medicine [address] [phone] Courtney Restrepo MD [address] [place] [address] [place] [address] Scheduled Procedures Name Priority [...] D LEVEL ONCE IN A LIFETIME-USE SMARTSET# 12696 Completed 10/16/2021, 12/27/2018 Alpha-1 Antitrypsin Discontinued GARDASIL-HPV [...] this encounter Medical Devices Implanted Type Area Sales Assistant Entertainment And Media Device Identifier Shelf Expiration Date Model / Serial / Lot Stent Graft Icast [id number] - [id number] - [id number] Implanted:Qty : 1 on 04/14/2022 by Nnamdi King MD at [place] [facility] [place] N/A: Mesenteric Artery GETINGE : VITOR [id number] 02/21/2023 [id number] / [id number] / [id number] Description:implanted in SMA Stent Howie 3.0x15 Rx - [id number] Implanted:Qty : 1 on 11/12/2022 by Patrice Jose MD at [facility] [place] MEDTRONIC : VASCULAR [id number] 11/28/2023 [id number] / / [id number] Stent R2p Misago 6fr [id number] - [id number] Implanted:Qty : 1 on 07/18/2023 by Nnamdi King MD at [place] [facility] [place] Right: [facility] : CARDIO SYS [id number] 09/11/2023 [id number] / / [id number] documented as of this encounter Procedures Procedure Name Priority Date/Time Associated Diagnosis Comments RADIOLOGY SCANNED RESULT 07/21/2023 documented in this encounter Results * RADIOLOGY SCANNED RESULT (07/21/2023) 07/21/2023 No Physician Data Unknown DIAGNOSTIC RAD IOLOGY SERVICES documented in this encounter Advance Directives Latest [...] the patient have Health Care Power of Railway Station Manager? Yes, in chart and reviewed as [...] patient or by statute hierarchy) Care Teams Clerk General Relationship Specialty Start Date End Date Courtney Restrepo MD [address] [place] [address] [place] [address] PCP - General Family Medicine 10/17/19 documented as of this encounter
--- OUTSIDE RECORDS SUMMARY | 2023-08-31 06:21 | External Medical Summary | Summary of Care ---
Author Name Unknown Organization [facility] Address [address] [place] [address] Phone [phone] Care Team Providers Care Collection Development Librarian Name Role Phone Courtney Restrepo MD Primary Care Prov ider Reason for Visit * Reason Onset Date Comments Medication Question 08/01/2023 Encounter Details Date Type Department Care Team (Late st Contact Info) Description 08/01/2023 Telephone Pharmacy Call Center [phone] [facility] [place] [address] [place] [address] Medication Question Allergies Active Allergy Reactions Criticality [...] edema Nitroglycerin Hypotension 12/20/2018 Penicillins Nausea/vomiting 05/17/2007 [place] Hives 10/02/2018 Propoxyphene Edema face/lips/tongue,Hiv es 06/26/2009 documented as of this encounter (statuses as of 08/01/2023) Medications Medication Sig Dispensed Refills Start Date [...] before bedtime. 180 Capsule 2 10/15/2022 Active MarkITxToEarthLink Delica Lancets 30GIndications:Type 2 diabetes mellitus with hemoglobin A1c goal of less than 8.0% ([facility]) Use to test glucose daily. E11.9 100 Each 5 11/29/2022 Active MarkITxTouch Verio w/Device KitIndications:Type 2 diabetes mellitus with hemoglobin A1c goal of less than 8.0% ([facility]) Use to test glucose daily. E11.9 1 Kit 11/29/2022 Active Trelegy Ellipta 100-62.5-25 MCG/ACT Aerosol Powder Breath ActivatedIndications :COPD, group C, by GOLD 2017 classification ([facility]) Inhale 1 puff as directed once a day 1 inhalation daily. Rinse mouth after every use. 60 Blister Dosing Unit 5 11/29/2022 Active NovoLOG FlexPen 100 UNIT/ML Subcutaneous Solution Pen-injector (insulin aspart)Indications:T ype 2 diabetes mellitus with hemoglobin A1c goal of less than 8.0% ([facility]) Units as per sliding scale 3 mL 3 02/04/2023 Active Insulin Glargine Solostar 100 UNIT/ML Subcutaneous Solution Pen-injector (Lantus SoloStar)Indications :Type 2 diabetes mellitus with hemoglobin A1c goal of less than 8.0% ([facility]) Inject 10 Units under the skin every [...] goal of less than 8.0% ([facility]) Test glucose once daily E11.9 100 Strip [...] 20 MG Oral Tablet (Lasix)Indications:A therosclerosis of rincon artery of left lower extremity with rest pain (HCC),DM type 2 with diabetic peripheral neuropathy (HCC) One daily 30 Tablet 5 07/28/2023 Active documented as of this encounter (statuses as of 08/01/2023) Active Problems Problem Noted Date Diagnosed Date Ischemic rest pain of lower extremity 07/14/2023 Ulcer of right foot, limited to breakdown of ski n 07/14/2023 Dependent rubor 07/14/2023 Atherosclerosis of rincon artery of extremity Pre-ulcerative corn or callous [...] rinse after steroid. Test performed by Bibiana PRINT DEVELOPER CPFT Old [place] (myocardial infarction) 02/21/2019 Bilateral carotid artery stenosis [...] osteoporosis 07/03/2018 Reactive depression 11/17/2017 Atherosclerosis of rincon co ronary artery of rincon heart without angina pectoris 07/22/2015 Overview: Single [...] rinse after steroid. Test performed by Bibiana PRINT DEVELOPER CPFT GENERAL OSTEOARTHROSIS BMI 32.0-32.9,adult Tobacco use disorder Hyperlipidemia with target LDL less than 70 Overview: ICD-10 update of inactive term RSD upper limb Overview: left arm Generalized anxiety disorder documented as of this encounter (statuses as of 08/01/2023) Resolved Problems Problem Noted Date Diagnosed Date [...] ISCHEMIC HRT DIS NOS Coronary atherosclerosis of rincon coronary artery 11/24/2016 Tobacco abuse 11/17/2017 documented as of this encounter (statuses as of 08/01/2023) Immunizations Name Administration Dates Next Due COVID-19 [...] and spoke with patient. Made her aware [facility] was out of office until today. Paperwork completed and sucessfully faxed to [phone]. Patient expressed understanding. Zenia Goldberg RPh, PharmD Clinical Pharmacist - Regional Business Manager [facility]ication [facility] 08/01/2023, 3:59 PM Ph.[phone] * Telephone Encounter - Mayi Buenrostro PHARM Tech - 08/01/2023 2:30 PM EDT Caller's name: Carlotta Preferred call back number(OFFICE NUMBER FOR ): [phone] Reason for call: Pt calling to see where her her Dexcom is. She said she cancelled her appt for today due to not getting it yet. Please advise and return her call. Thank you, Mayi Buenrostro Probation And Patrol Agent Centralized Clinical Pharmacy Services 08/01/2023,2:30 PM documented in this encounter Plan of Treatment Upcoming Encounters Date Type Department Care Team (Late st Contact Info) Description 08/09/2023 9:40 AM EDT Office Visit Family [address] [phone] Courtney Restrepo MD [address] [place] [address] [place] [address] 08/10/2023 11:30 AM EDT Office Visit Vascular Surgery, [facility] [address] [facility] [address] Nnamdi King MD [address] [place] [address] 08/22/2023 11:20 AM EDT Office Visit Pharmacy, [address] [place] [address] [place] [address] 09/27/2023 9:40 AM EDT Office Visit Family [address] [place] [phone] Courtney Restrepo MD [address] [place] [address] [place] [address] 10/10/2023 4:00 PM EDT Office Visit Nephrology, [address] [place] [address] Charla Potter MD [address] [facility] [place] [address] 10/12/2023 11:00 AM EDT Office Visit Cardiology, [facility] [address] [facility] [place] [address] Frantz Herrera MD [address] [facility] [address] 12/07/2023 9:20 AM EDT Office Visit Family Medicine [address] [phone] Courtney Restrepo MD [address] [place] [address] [place] [phone] Scheduled Procedures Name Priority Associated Diagnoses Date/Ti me ESOPHAGOGASTRODUODENOSCOPY ( EGD), FLEXIBLE, TRANSORAL, DIAGNOSTIC Recall Pendleton's esophagus Health Maintenance Due Date Last Done Comments DISCUSS TOBACCO CESSATION (REFER TO SMARTSET #8682) 1949 Cologuard 1994 Fecal Occult Blood Test [...] D LEVEL ONCE IN A LIFETIME-USE SMARTSET# 49952 Completed 10/16/2021, 12/27/2018 Alpha-1 Antitrypsin Discontinued GARDASIL-HPV [...] this encounter Medical Devices Implanted Type Area Manager Semiconductor Device Identifier Shelf Expiration Date Model / Serial / Lot Stent Graft Icast [id number] - [id number] - [id number] Implanted:Qty : 1 on 04/14/2022 by [place]namdi [place] [facility] [place]A: Mesenteric Artery GETINGE : VITOR [id number] 02/21/2023 [id number] / [id number] / [id number] Description:implanted in SMA Stent Annabella 3.0x15 Rx - [id number] Implanted:Qty : 1 on 11/12/2022 by Patrice Jose MD at [facility] [facility] [place] MEDTRONIC : VASCULAR [id number] 11/28/2023 [id number] / / [id number] Stent R2p Misago 6fr [id number] - [id number] Implanted:Qty : 1 on 07/18/2023 by Nnamdi King MD [place] [facility] [place] Right: [facility] : CARDIO SYS [id number] 09/11/2023 [id number] / / [id number] documented as of this encounter Advance Directives [...] the patient have Health Care Power of Trolley Worker? Yes, in chart and reviewed as current [...] patient or by statute hierarchy) Care Teams Collection Development Librarian Relationship Specialty Start Date End Date Courtney Restrepo MD [address] [place] [address] [place] [address] PCP - General Family Medicine 10/17/19 documented as of this encounter
--- OUTSIDE RECORDS SUMMARY | 2023-08-31 06:22 | External Medical Summary | Summary of Care ---
Author Name Unknown Organization [facility] Address [address] [place] [address] Phone [phone] Care Team Providers Care Cytogeneticist Name Role Phone Courtney Penaloza MD Primary Care Prov ider Reason for Visit * Reason Comments eRx-Medication Refill Encounter Details Date Type Department Care Team (Late st Contact Info) Description 07/21/2023 Refill Family Medicine [address] [phone] Courtney Penaloza MD [address] [place] [address] Allergies Active Allergy Reactions Criticality Noted Date [...] edema Nitroglycerin Hypotension 12/20/2018 Penicillins Nausea/vomiting 05/17/2007 [place] Hives 10/02/2018 Propoxyphene Edema face/lips/tongue,Hiv es 06/26/2009 documented as of this encounter (statuses as of 07/22/2023) Medications Medication Sig Dispensed Refills Start Date [...] before bedtime. 180 Capsule 2 3 Active Ipratropium-Alb[place] rol 0.5-2.5 (3) MG/3ML Inhalation Solution (Duoneb)Indication s:COPD exacerbation (HCC) Inhale 3 mL via nebulizer every 4 hours as needed for Shortness of Breath. 100 mL 3 3 Active Additional Information Patient not taking.Informant: At Discharge, Patient, Reported on 07/18/2023 OneToCalcivis DelDynamic Yield Lancets 30GIndications:Typ e 2 diabetes mellitus with hemoglobin A1c goal of less than 8.0% ([facility]) Use to test glucose daily. E11.9 100 Each 5 3 Active OneTouch Verio w/Device KitIndications:Typ e 2 diabetes mellitus with hemoglobin A1c goal of less than 8.0% ([facility]) Use to test glucose daily. E11.9 1 Kit 0 3 Active Trelegy Ellipta 100-62.5-25 MCG/ACT Aerosol Powder Breath ActivatedIndicatio ns:COPD, group C, by GOLD 2017 classification (HCC) [...] goal of less than 8.0% ([facility]) Inject 10 Units under the [...] goal of less than 8.0% ([facility]) Test glucose once daily E11.9 [...] opioid overdose. Seek medical help immediately. [email or web address] 1 mL 3 4 Active Additional Information [...] before bedtime. 60 Tablet 1 4 Active Baclofen 5 MG Oral Tablet (Lioresal) Take 1 Tablet by mouth in the morning and 1 Tablet at noon and 1 Tablet before bedtime. As needed for muscle spasm. 30 Tablet 0 4 Active Gabapentin 300 MG Oral Capsule (Neurontin) Take 1 Capsule by mouth in the morning and 1 Capsule before bedtime. 60 Capsule 3 4 Active oxyCODONE HCl 5 MG Oral [...] the morning. 90 Tablet 3 4 Active Loratadine 10 MG Oral Tablet (Claritin) Take 1 Tablet by mouth in the morning. 90 Tablet 3 3 07/22/19 24 Discontinued documented as of this encounter (statuses as of 07/22/2023) Active Problems Problem Noted Date Diagnosed Date Ischemic rest pain of lower extremity 07/14/2023 Ulcer of right foot, limited to breakdown of ski n 07/14/2023 Dependent rubor 07/14/2023 Atherosclerosis of lower sioux artery of extremity Pre-ulcerative corn or [...] rinse after steroid. Test performed by Bibiana PRESSER AUTOMATIC CPFT [place] (myocardial infarction) 02/21/2019 Bilateral [...] osteoporosis 07/03/2018 Reactive depression 11/17/2017 Atherosclerosis of lower sioux co ronary artery of lower sioux heart without angina pectoris 07/22/2015 Overview: [...] rinse after steroid. Test performed by Bibiana PRESSER AUTOMATIC CPFT GENERAL OSTEOARTHROSIS BMI 32.0-32.9,adult Tobacco use disorder Hyperlipidemia with target LDL less than 70 Overview: ICD-10 update of inactive term RSD upper limb Overview: left arm Generalized anxiety disorder documented as of this encounter (statuses as of 07/22/2023) Resolved Problems Problem Noted Date Diagnosed Date [...] ISCHEMIC HRT DIS NOS Coronary atherosclerosis of lower sioux coronary artery 11/24/2016 Tobacco abuse 11/17/2017 documented as of this encounter (statuses as of 07/22/2023) Immunizations Name Administration Dates Next Due COVID-19 [...] encounter Miscellaneous Notes * Telephone Encounter - Tiffanie Fisher RPh - 07/22/2023 12:59 PM EDT Signed Prescriptions: Disp Refills Loratadine 10 MG Oral Tablet (Claritin) 90 Tab*3 Sig: Take 1 Tablet by mouth in the morning.Authorizing Provider: COURTNEY PENALOZA User: TIFFANIE FISHER documented in this encounter Plan of Treatment Upcoming Encounters Date Type Department Care Team (Late st Contact Info) Description 08/01/2023 10:00 AM EDT Imaging Vascular Lab, [address] [place] [address] 08/01/2023 11:00 AM EDT Imaging Vascular Lab, [place] [address] [place] [address] 08/01/2023 2:30 PM EDT Office Visit Pharmacy, [address] [place] [address] [place] [address] 08/09/2023 9:40 AM EDT Office Visit Family [address] [phone] Courtney Penaloza MD [address] [place] [address] [place] [address] 08/10/2023 11:30 AM EDT Office Visit Vascular Surgery, [facility] [address] [place] [address] Nnamdi King MD [address] [place], [place] [phone] 09/27/2023 9:40 AM EDT Office Visit Family [address] [phone] Courtney Penaloza MD [address] [place] [address] [place] [address] 10/10/2023 4:00 PM EDT Office Visit Nephrology, [address] [address] Charla Potter MD [address] [place] [address] 10/12/2023 11:00 AM EDT Office Visit Cardiology, [facility] [address] [place] [address] Frantz Herrera MD [address] [place] [address] 12/07/2023 9:20 AM EDT Office Visit Family [address] [phone] Courtney Penaloza MD [address] [place] [address] [place] [address] Scheduled Procedures Name Priority Associated Diagnoses Date/Ti me ESOPHAGOGASTRODUODENOSCOPY ( EGD), FLEXIBLE, TRANSORAL, DIAGNOSTIC Recall Pendleton's esophagus Health Maintenance Due Date Last Done Comments DISCUSS TOBACCO CESSATION (REFER TO SMARTSET #5593) 1949 Cologuard 1994 Fecal Occult Blood Test [...] D LEVEL ONCE IN A LIFETIME-USE SMARTSET# 72054 Completed 10/16/2021, 12/27/2018 Alpha-1 Antitrypsin Discontinued GARDASIL-HPV [...] this encounter Medical Devices Implanted Type Area Last Scourer Device Identifier Shelf Expiration Date Model / Serial / Lot Stent Graft Icast [id number] - [id number] - [id number] Implanted:Qty : 1 on 04/14/2022 [place] [facility] [place] Mesenteric Artery GETINGE : MAQUET [id number] 02/21/2023 [id number] / [id number] / [id number] Description:implanted in SMA Stent [place] 3.0x15 Rx - [id number] Implanted:Qty : 1 on 11/12/2022 by Patrice Jose MD [place] [facility] [place] [employer] : VASCULAR [id number] 11/28/2023 [id number] / / [id number] Stent R2p Misago 6fr [id number] - [id number] Implanted:Qty : 1 on 07/18/2023 by Nnamdi King [place] [facility] [place]: [facility] : CARDIO SYS [id number] 09/11/2023 [id number] / / [id number] documented as of this encounter Advance Directives [...] the patient have Health Care Power of Quality Improvement Specialist? Yes, in chart and reviewed as [...] Healthcare Agent Relationshi p Communication Diamond Braxton [facility] Child Health Care Repr esentative (appointed verbally by patient or by statute hierarchy) Care Teams Cytogeneticist Relationship Specialty Start Date End Date Courtney Penaloza MD [address] [place] [address] [place] [address] PCP - General Family Medicine 10/17/19 documented as of this encounter
--- OUTSIDE RECORDS SUMMARY | 2023-08-31 06:22 | External Medical Summary | Summary of Care ---
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 date of service referenced in note, and I agree with, and take responsibility for the plan of care. Right foot with dependent rubor and small ulcer on tip of right 3rd toe which is healing Vascular labs show old right SFA/pop angioplasty site is probably failing Will plan right leg angiogram, angioplasty and stent The patient was counseled at length regarding the indications for the procedure and the alternatives. I have discussed with the patient that they are at very high risk for the following anticipated complications due to the patients co-morbidities including heart attack, respiratory complications, kidney failure requiring dialysis, bleeding requiring transfusion/re-operation, hemorrhage/thrombosis /aneurysm formation at the site of catheter insertion, clot or blockage of blood flow to the extremities/intestines/kidneys, re-operation for limb ischemia or amputation. I have also explained to the patient that other risks of the procedure include, but are not limitedto, radiation injury, allergic reaction to the contrast, stroke, transfusion reaction, infection, nerve damage, or . The patient understands the seriousness of the situation and would like to proceed with the procedure. Nnamdi King MD Section of Vascular and [facility] [phone] documented in this encounter Nursing Notes * Demi Hutchins LPN - 07/14/2023 11:29 AM EDT Reviewed the option of transferring scripts to [facility] pharmacy with patient and / or family. Patient was instructed to not get up on the exam table/exam chair until directed and assisted by their provider; patient is to remain seated in the chair/ wheelchair/ exam table/ exam chair for fall prevention and safety reasons. Patient is aware to have assistance to step down off exam table/exam chair with personnel. Patient voiced full comprehension of instructions. Patient states no changes w/ meds.. Demi Hutchins LPN documented in this encounter Miscellaneous Notes * Addendum Note - Melly Singh PA-C - 07/14/2023 4:08 PM EDT Addended by: MELLY SINGH on: 07/14/2023 04:08 PM Modules accepted: Orders, Level of Service documented in this encounter Plan of Treatment Upcoming Encounters Date Type Department Care Team (Late st Contact Info) Description 08/01/2023 10:00 AM EDT Imaging Vascular Lab, [address] [place] [address] 08/01/2023 11:00 AM EDT Imaging Vascular Lab, [address] [place] [address] 08/01/2023 2:30 PM EDT Office Visit Pharmacy, [address] [place] [address] [place] [address] 08/09/2023 9:40 AM EDT Office Visit Family Medicine [address] [phone] Courtney Restrepo MD [address] [place] [address] [place] [address] 08/10/2023 11:30 AM EDT Office Visit Vascular Surgery, [facility] [address] [place] [address] Nnamdi King MD [address] [place] [address] 09/27/2023 9:40 AM EDT Office Visit Family [address] [phone] Courtney Restrepo MD [address] [place] [address] [place] [address] 10/10/2023 4:00 PM EDT Office Visit Nephrology, [address] [place] [address] Charla Potter MD [address] [place] [phone] 10/12/2023 11:00 AM EDT Office Visit Cardiology, [facility] [address] [place] [address] Frantz Herrera MD [address] [place] [address] 12/07/2023 9:20 AM EDT Office Visit Family [address] [phone] Courtney Restrepo MD [address] [place] [address] [place] [address] Scheduled Orders Name Type Priority Associated Diagnoses Orde r Schedule VASC ANKLE BRACHIAL INDICES WITHOUT PPG (PAD) Medical Imaging Routine 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) Ordered: 07/14/2023 VASC [place] ART DUP LTD LE Medical Imaging Routine 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) Ordered: 07/14/2023 FRUIT DRYER BELOW KNEE Procedures Routine PAD (peripheral artery disease) (HCC) Ischemic rest pain of lower extremity Ulcer of right foot, limited to breakdown of skin (HCC) Dependent rubor Ordered: 07/14/2023 BELOW KNEE TOTAL CONTACT Procedures Routine PAD (peripheral artery disease) (HCC) Ischemic rest pain of lower extremity Ulcer of right foot, limited to breakdown of skin (HCC) Dependent rubor Ordered: 07/14/2023 Scheduled Procedures Name Priority Associated Diagnoses Date/Ti me ESOPHAGOGASTRODUODENOSCOPY ( EGD), FLEXIBLE, TRANSORAL, DIAGNOSTIC Recall Pendleton's esophagus Health Maintenance Due Date Last Done Comments DISCUSS TOBACCO CESSATION (REFER TO SMARTSET #7234) 1949 Cologuard 1994 Fecal Occult Blood Test [...] D LEVEL ONCE IN A LIFETIME-USE SMARTSET# 76892 Completed 10/16/2021, 12/27/2018 Alpha-1 Antitrypsin Discontinued GARDASIL-HPV [...] this encounter Medical Devices Implanted Type Area Logistics Vice President Device Identifier Shelf Expiration Date Model / Serial / Lot Stent Graft Icast [id number] - [id number] - [id number] Implanted:Qty : 1 on 04/14/2022 by Nnamdi King MD at OR [facility] [place] N/A: Mesenteric Artery GETINGE : MAQUET [id number] 02/21/2023 [id number] / [id number] Description:implanted in SMA Stent Howie 3.0x15 Rx - [id number] Implanted:Qty : 1 on 11/12/2022 by Patrice Jose MD at [facility]ARDIAC LABS [facility] [place] MEDTRONIC : VASCULAR [id number] 11/28/2023 [id number] / / [id number] Stent R2p Misago 6fr [id number] - [id number] Implanted:Qty : 1 on 07/18/2023 by Nnamdi King MD at OR [facility] [place] Right: [facility] MEDICAL : CARDIO SYS [id number] 09/11/2023 [id number] / / [id number] documented as of this encounter Visit Diagnoses Diagnosis PAD (peripheral artery disease) (HCC)- Primary Peripheral vascular disease, unspecified 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 Yes, in chart and reviewed as current [...] patient or by statute hierarchy) Care Teams Electrical Engineering Manager Relationship Specialty Start Date End Date Courtney Restrepo MD [address] [place] [address] [place] [phone] PCP - General Family Medicine 10/17/19 documented as of this encounter
--- OUTSIDE RECORDS SUMMARY | 2023-08-31 06:22 | External Medical Summary | Summary of Care ---
Author Name Unknown Organization [facility] Address [address] [place] [address] Phone [phone] Care Team Providers Care Offset Press Assistant Name Role Phone Courtney Restrepo MD Primary Care Prov ider Reason for Visit * Reason Onset Date Comments Call Back 07/22/2023 Encounter Details Date Type Department Care Team (Late st Contact Info) Description 07/22/2023 Telephone Vascular Surg [facility] [address] [place] [address] Services, [facility] [address] [place] [address] Call Back Allergies Active Allergy Reactions Criticality Noted Date [...] edema Nitroglycerin Hypotension 12/20/2018 Penicillins Nausea/vomiting 05/17/2007 [place] Hives 10/02/2018 Propoxyphene Edema face/lips/tongue,Hiv es 06/26/2009 [...] of Breath. 100 mL 3 11/30/19 23 Active Additional Information Patient not taking.Informant: At Discharge, Patient, Reported on 07/18/2023 GridXToGigstarter DelgoOutMap Lancets 30GIndications:Typ e 2 diabetes mellitus with hemoglobin A1c goal of less than 8.0% ([facility]) Use to test glucose daily. E11.9 100 Each 11/30/19 Active GridXTouch Verio w/Device KitIndications:Typ e 2 diabetes mellitus with hemoglobin A1c goal of less than 8.0% ([facility]) Use to test glucose daily. E11.9 1 Kit 0 11/30/19 23 Active Trelegy Ellipta 100-62.5-25 MCG/ACT Aerosol Powder Breath ActivatedIndicatio ns:COPD, group C, by GOLD 2017 classification ([facility]) Inhale 1 puff as directed once a day 1 inhalation daily. Rinse mouth after every use. 60 Blister Dosing Unit 11/30/19 23 Active NovoLOG FlexPen 100 UNIT/ML Subcutaneous Solution Pen-injector (insulin aspart)Indications :Type 2 diabetes mellitus with hemoglobin A1c goal of less than 8.0% ([facility]) Units as per sliding scale 3 mL 3 02/05/20 23 Active Insulin Glargine Solostar 100 UNIT/ML Subcutaneous Solution Pen-injector (Lantus SoloStar)Indicatio ns:Type 2 diabetes mellitus with hemoglobin A1c goal of less than 8.0% ([facility]) Inject 10 Units under [...] A1c goal of less than 8.0% ([facility]) Test glucose once daily [...] opioid overdose. Seek medical help immediately. [email or web address] 1 mL 3 06/14/19 24 Active Additional [...] spasm. 30 Tablet 0 07/07/19 24 Active Gabapentin 300 MG Oral Capsule (Neurontin) Take 1 Capsule by mouth in the morning and 1 Capsule before bedtime. 60 Capsule 3 07/15/19 24 Active oxyCODONE HCl 5 MG Oral [...] 90 Tablet 3 06/05/19 23 024 Discontinued documented as of this encounter [...] rinse after steroid. Test performed by Bibiana INBOUND CALL CENTER AGENT CPFT Old [place] (myocardial infarction) 02/21/2019 Bilateral carotid artery stenosis [...] rinse after steroid. Test performed by Bibiana INBOUND CALL CENTER AGENT CPFT GENERAL OSTEOARTHROSIS BMI 32.0-32.9,adult Tobacco use [...] encounter Miscellaneous Notes * Telephone Encounter - Melly Singh PA-C - 07/22/2023 4:50 PM EDT Spoke to female family member and Carlotta was in the background during the phone call. Female familymember stated she is trying to sleep. Arm swelling went down. Still has pain in arm. Discussed compression, elevation, warm/cool compresses and made them aware that this should improve with time. We will see them on 08/10/23. They are aware to call us with any issues in the meantime * Telephone Encounter - Melly Singh PA-C - 07/22/2023 11:17 AM EDT Received text message from Dino with [facility] arterial duplex results: Impression: Elevated peak systolic velocities are seen in the right subclavian and axillary artery.Complex collection is seen at the site of surgical intervention measuring about 4.4 x 1.8 x 3.2 cm,shows mild peripheral hyperemia with no obvious connection with the vascular structures. Clinical correlation is suggested. Suggest CTA chest and right arm for further evaluation to exclude recent hematoma or arterial narrowing. Dino states that right arm swelling is improving at this time * Telephone Encounter - Melly Singh PA-C - 07/22/2023 10:03 AM EDT I called and spoke to Dino at [facility]. He states that she has some pain over surgical incision site as well as right arm. There is also some swelling in the right arm. There is no infection and no pulsatile mass present. Duplex was ordered suggesting elevated peak systolic velocities of R SCA and R axillary and R arm seroma/hematoma. No evidence of PSA/AVF. Radiologist recommended CTA for f urther evaluation of R SCA/axillary disease. 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 She left before he could tell her the results. I will call Carlotta back later today to see how she is doing. I don't think we need to obtain CTA atthis time * Telephone Encounter - Cecilia Rahman OSA - 07/22/2023 9:51 AM EDT Dino from [facility] ER asking for a call back - pt is currently in their ER [phone] documented in this encounter Plan of Treatment Upcoming Encounters Date Type Department Care Team (Late st Contact Info) Description 08/01/2023 10:00 AM EDT Imaging Vascular Lab, [address] [place] [address] 08/01/2023 11:00 AM EDT Imaging Vascular Lab, [address] [place] [address] 08/01/2023 2:30 PM EDT Office Visit Pharmacy, [address] [place] [address] [place] [address] 08/09/2023 9:40 AM EDT Office Visit Family Medicine [address] [place] [phone] Courtney Restrepo MD [address] [place] [address] [place] [address] 08/10/2023 11:30 AM EDT Office Visit Vascular Surgery, [facility] [address] [place] [address] Nnamdi King MD [address] [place] [address] 09/27/2023 9:40 AM EDT Office Visit Family [address] [phone] Courtney Restrepo MD [address] [place] [address] [place] [address] 10/10/2023 4:00 PM EDT Office Visit Nephrology, [address] [place] [address] Charla Potter MD [address] [place] [address] 10/12/2023 11:00 AM EDT Office Visit Cardiology, [facility] [address] [place] [address] Frantz Herrera MD [address] [place] [address] 12/07/2023 9:20 AM EDT Office Visit Family [address] [phone] Courtney Restrepo MD [address] [place] [address] [place] [address] Scheduled Procedures Name Priority Associated Diagnoses Date/Ti me ESOPHAGOGASTRODUODENOSCOPY ( EGD), FLEXIBLE, TRANSORAL, DIAGNOSTIC Recall Pendleton's esophagus Health Maintenance Due Date Last Done Comments DISCUSS TOBACCO CESSATION (REFER TO SMARTSET #3118) 1950 Cologuard 1994 Fecal Occult Blood Test [...] D LEVEL ONCE IN A LIFETIME-USE SMARTSET# 77472 Completed 10/16/2021, 12/27/2018 Alpha-1 Antitrypsin Discontinued GARDASIL-HPV [...] this encounter Medical Devices Implanted Type Area Monotype Keyboard Operator Device Identifier Shelf Expiration Date Model / Serial / Lot Stent Graft Icast [id number] - [id number] - [id number] Implanted:Qty : 1 on 04/14/2022 by Nnamdi King MD at OR [facility] N/A: Mesenteric Artery GETINGE : MAQUET [id number] 02/21/2023 [id number] / [id number] / [id number] Description:implanted in SMA Stent Willow 3.0x15 Rx - [id number] Implanted:Qty : 1 on 11/12/2022 by Patrice Jose MD at [facility] MED[employer] : VASCULAR [id number] 11/28/2023 [id number] / / [id number] Stent R2p Misago 6fr [id number] - [id number] Implanted:Qty : 1 on 07/18/2023 by Nnamdi King MD at OR [facility] Right: [facility] MEDICAL : CARDIO SYS [phone] 09/11/2023 [id number] / / [id number] documented as of this encounter Advance Directives [...] the patient have Health Care Power of Cage Shift Manager? Yes, in chart and reviewed as [...] patient or by statute hierarchy) Care Teams Offset Press Assistant Relationship Specialty Start Date End Date Courtney Restrepo MD [address] [place] [address] [place] [phone] PCP - General Family Medicine 10/17/19 documented as of this encounter
--- OUTSIDE RECORDS SUMMARY | 2023-08-31 06:23 | External Medical Summary | Summary of Care ---
Author Name Unknown Organization [facility] Address [address] [place] [address] Phone [phone] Care Team Providers Care Laboratory Clerk Name Role Phone Courtney Restrepo MD Primary Care Prov ider Reason for Visit * Reason Onset Date Comments Call Back 07/22/2023 Encounter Details Date Type Department Care Team (Late st Contact Info) Description 07/22/2023 Telephone Vascular Surg [facility] [address] [place] [address] Services, [facility] [address] [place] [address] Call Back Allergies Active Allergy Reactions Criticality [...] edema Nitroglycerin Hypotension 12/20/2018 Penicillins Nausea/vomiting 05/17/2007 [place] Hives 10/02/2018 Propoxyphene Edema face/lips/tongue,Hiv es 06/26/2009 documented as of this encounter (statuses as of 07/22/2023) Medications Medication Sig Dispensed Refills Start Date End Date Status Albuterol Sulfate HFA 108 (90 Base) MCG/ACT Inhalation Aerosol SolutionIndications: Bacterial pneumonia Use two puffs four times a day as needed for shortness of breath/wheezing 18 g 3 06/04/2022 Active Additional Information Patient taking differently: 2 Puff Q6H PRN, Wheezing, (No instructions reported), Informant: At Discharge, Patient, Reported on 07/18/2023 Loratadine 10 MG Oral Tablet (Claritin) Take 1 Tablet by mouth in the morning. 90 Tablet 3 06/04/2022 Active busPIRone HCl 15 MG Oral Tablet (Buspar)Indications: [...] hemoglobin A1c goal of less than 8.0% ([facility]) Use to test glucose daily. E11.9 100 Each 5 11/29/2022 Active OneTouch Verio w/Device KitIndications:Type 2 diabetes mellitus with hemoglobin A1c goal of less than 8.0% ([facility]) Use to test glucose daily. E11.9 1 Kit 0 11/29/2022 Active Trelegy Ellipta 100-62.5-25 MCG/ACT Aerosol Powder Breath ActivatedIndications :COPD, group C, by GOLD 2017 classification ([facility]) Inhale 1 puff as directed once [...] suspected opioid overdose. Seek medical help immediately. [email or web address] 1 mL 3 06/14/2023 Active Additional Information [...] at bedtime. 120 Tablet 5 07/18/2023 Active documented as of this encounter (statuses as of 07/22/2023) Active Problems Problem Noted Date Diagnosed Date Ischemic rest pain of lower extremity 07/14/2023 Ulcer of right foot, limited to breakdown of ski n 07/14/2023 Dependent rubor 07/14/2023 Atherosclerosis of eastern shoshone artery of extremity Pre-ulcerative corn or callous [...] rinse after steroid. Test performed by Bibiana CHICKEN VACCINATOR CPFT [place] (myocardial infarction) 02/21/2019 Bilateral carotid artery stenosis [...] osteoporosis 07/03/2018 Reactive depression 11/17/2017 Atherosclerosis of eastern shoshone co ronary artery of eastern shoshone heart without angina pectoris 07/22/2015 Overview: Single [...] rinse after steroid. 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 11/24/2016 Tobacco abuse 11/17/2017 documented [...] encounter Miscellaneous Notes * Telephone Encounter - Cecilia Rahman OSA - 07/22/2023 9:51 AM EDT Dino from [facility] ER asking for a call back - pt is currently in their ER [phone] documented in this encounter Plan of Treatment Upcoming Encounters Date Type Department Care Team (Late st Contact Info) Description 08/01/2023 10:00 AM EDT Imaging Vascular Lab, [address] [place] [address] 08/01/2023 11:00 AM EDT Imaging Vascular Lab, [address] [place] [address] 08/01/2023 2:30 PM EDT Office Visit Pharmacy, [address] [place] [address] [place] [address] 08/09/2023 9:40 AM EDT Office Visit Family Medicine [address] [place] [phone] Courtney Restrepo MD [address] [place] [address] [place] [address] 08/10/2023 11:30 AM EDT Office Visit Vascular Surgery, [facility] [address] [place] [address] Nnamdi King MD [address] [place] [address] 09/27/2023 9:40 AM EDT Office Visit Family Medicine [address] [phone] Courtney Restrepo MD [address] [place] [address] [place] [address] 10/10/2023 4:00 PM EDT Office Visit Nephrology, [address] [address] Charla Potter MD [address] [place] [address] 10/12/2023 11:00 AM EDT Office Visit Cardiology, [facility] [address] [place] [address] Frantz Herrera MD [address] [place] [address] 12/07/2023 9:20 AM EDT Office Visit Family Medicine [address] [phone] Courtney Restrepo MD [address] [place] [address] [place] [address] Scheduled Procedures Name Priority Associated Diagnoses Date/Ti [...] D LEVEL ONCE IN A LIFETIME-USE SMARTSET# 19778 Completed 10/16/2021, 12/27/2018 Alpha-1 Antitrypsin Discontinued GARDASIL-HPV [...] this encounter Medical Devices Implanted Type Area Therapy Teacher Device Identifier Shelf Expiration Date Model / Serial / Lot Stent Graft Icast [id number] - [id number] - [id number] Implanted:Qty : 1 on 04/14/2022 by Nnamdi King [place] [facility]A: Mesenteric Artery GETINGE : [id number] 02/21/2023 [id number] / [id number] / [id number] Description:implanted in SMA Stent Howie 3.0x15 Rx - [id number] Implanted:Qty : 1 on 11/12/2022 by Patrice Jose MD at [facility] [employer] : VASCULAR [id number] 11/28/2023 [id number] / / [id number] Stent R2p Misago 6fr [id number] - [id number] Implanted:Qty : 1 on 07/18/2023 by Nnamdi King MD at [place] [facility] Right: [facility] MEDICAL : CARDIO SYS [id number] 09/11/2023 [id number] / / [id number] documented as of this encounter Advance Directives [...] the patient have Health Care Power of Dyeing Machine Tender? Yes, in chart and reviewed as current [...] patient or by statute hierarchy) Care Teams Laboratory Clerk Relationship Specialty Start Date End Date Courtney Restrepo MD [address] [place] [address] [place] [address] PCP - General Family Medicine 10/17/19 documented as of this encounter
--- OUTSIDE RECORDS SUMMARY | 2023-08-31 06:23 | External Medical Summary | Summary of Care ---
Author Name Unknown Organization [facility] Address [address] [place] [address] Phone [phone] Care Team Providers Care Snuff Box Finisher Name Role Phone Courtney Restrepo MD Primary Care Prov ider Reason for Visit * Reason Onset Date Comments Call Back 07/22/2023 Encounter Details Date Type Department Care Team (Late st Contact Info) Description 07/22/2023 Telephone Vascular Surg [facility] [address] [place] [address] Services, [facility], [facility] [address] [place] [address] Call Back Allergies Active Allergy Reactions Criticality [...] edema Nitroglycerin Hypotension 12/20/2018 Penicillins Nausea/vomiting 05/17/2007 [place] Hives 10/02/2018 Propoxyphene Edema face/lips/tongue,Hiv es 06/26/2009 [...] suspected opioid overdose. Seek medical help immediately. [email or web address] 1 mL 3 06/14/2023 Active Additional Information [...] n 07/14/2023 Dependent rubor 07/14/2023 Atherosclerosis of mi'kmaq artery of extremity Pre-ulcerative corn or callous [...] rinse after steroid. Test performed by Bibiana ABA TUTOR CPFT Old [place] (myocardial infarction) 02/21/2019 Bilateral [...] osteoporosis 07/03/2018 Reactive depression 11/17/2017 Atherosclerosis of mi'kmaq co ronary artery of mi'kmaq heart without angina pectoris 07/22/2015 Overview: Single [...] rinse after steroid. Test performed by Bibiana ABA TUTOR CPFT GENERAL OSTEOARTHROSIS BMI 32.0-32.9,adult Tobacco use [...] ISCHEMIC HRT DIS NOS Coronary atherosclerosis of mi'kmaq coronary artery 11/24/2016 Tobacco abuse 11/17/2017 documented [...] I called and spoke to Dino at [facility]. He states that she has some pain [...] - 07/22/2023 9:51 AM EDT Dino from [facility] ER asking for a call back - pt is currently in their ER [phone] documented in this encounter Plan of Treatment Upcoming Encounters Date Type Department Care Team (Late st Contact Info) Description 08/01/2023 10:00 AM EDT Imaging Vascular Lab, [facility] [address] [place] [address] 08/01/2023 11:00 AM EDT Imaging Vascular Lab, [address] [place] [address] 08/01/2023 2:30 PM EDT Office Visit Pharmacy, [address] [place] [address] [place] [address] 08/09/2023 9:40 AM EDT Office Visit Family [address] [place] [phone] Courtney Restrepo MD [address] [place] [address] [place] [address] 08/10/2023 11:30 AM EDT Office Visit Vascular Surgery, [address] [place] [address] Nnamdi King MD [address] [place] [address] 09/27/2023 9:40 AM EDT Office Visit Family [address] [place] [phone] Courtney Restrepo MD [address] [place] [address] [place] [address] 10/10/2023 4:00 PM EDT Office Visit Nephrology, [address] [place] [address] Charla Potter MD [address] [place] [address] [address] 10/12/2023 11:00 AM EDT Office Visit Cardiology, [address] [place] [address] Frantz Herrera MD [address] [address] 12/07/2023 9:20 AM EDT Office Visit Family Medicine [address] [place] [phone] Courtney Restrepo MD [address] [place] [address] [place] [address] Scheduled Procedures Name Priority Associated Diagnoses Date/Ti me ESOPHAGOGASTRODUODENOSCOPY ( EGD), FLEXIBLE, TRANSORAL, DIAGNOSTIC Recall Pendleton's esophagus Health Maintenance Due Date Last Done Comments DISCUSS TOBACCO CESSATION (REFER TO SMARTSET #1391) 1949 Cologuard 1994 Fecal Occult Blood Test [...] D LEVEL ONCE IN A LIFETIME-USE SMARTSET# 59845 Completed 10/16/2021, 12/27/2018 Alpha-1 Antitrypsin Discontinued GARDASIL-HPV [...] this encounter Medical Devices Implanted Type Area Substation Operator Conversion Device Identifier Shelf Expiration Date Model / Serial / Lot Stent Graft Icast [id number] - [id number] - [id number] Implanted:Qty : 1 on 04/14/2022 by Nnamdi King MD at OR [facility] N/A: Mesenteric Artery GETINGE : MAQUET [id number] 02/21/2023 [id number] / [id number] / [id number] Description:implanted in SMA Stent [place] 3.0x15 Rx - [id number] Implanted:Qty : 1 on 11/12/2022 by Patrice Jose MD at [facility]ARDIAC LABS [facility] MEDTRONIC : VASCULAR [id number] 11/28/2023 [id number] / / [id number] Stent R2p Misago 6fr [id number] - [id number] Implanted:Qty : 1 on 07/18/2023 by Nnamdi King MD at OR [facility] Right: [facility] : CARDIO SYS [id number] 09/11/2023 [id number] / / [id number] documented as of this encounter Advance Directives [...] the patient have Health Care Power of Channeling Machine Runner? Yes, in chart and reviewed as current [...] Agents on File Name Relationship Healthcare Agent [facility] p Communication Diamond Braxton Adult Child Health Care Repr esentative (appointed verbally by patient or by statute hierarchy) Care Teams Snuff Box Finisher Relationship Specialty Start Date End Date Courtney Restrepo MD [address] [place] [address] [place] [address] PCP - General Family Medicine 10/17/19 documented as of this encounter
--- OUTSIDE RECORDS SUMMARY | 2023-08-31 06:23 | External Medical Summary | Summary of Care ---
Author Name Unknown Organization [facility] Address [address] [place] [address] Phone [phone] Care Team Providers Care Locomotive Firer/Fireman Name Role Phone Courtney Restrepo MD Primary Care Prov ider Reason for Visit * Reason Onset Date Comments Call Back 07/22/2023 Encounter Details Date Type Department Care Team (Late st Contact Info) Description 07/22/2023 Telephone Vascular Surg [facility] [address] [place] [address] Services, [facility] [address] [place] [address] Call Back Allergies Active Allergy Reactions Criticality [...] edema Nitroglycerin Hypotension 12/20/2018 Penicillins Nausea/vomiting 05/17/2007 [place] Hives 10/02/2018 Propoxyphene Edema face/lips/tongue,Hiv es 06/26/2009 documented as of this encounter (statuses as of 07/22/2023) Medications Medication Sig Dispensed Refills Start Date End Date Status Loratadine 10 MG Oral Tablet (Claritin) Take 1 Tablet by mouth in the morning. 90 Tablet 3 3 Active busPIRone HCl 15 MG Oral Tablet (Buspar)Indications [...] taking.Informant: At Discharge, Patient, Reported on 07/18/2023 [employer] Apolinar Lancets 30GIndications:Type 2 diabetes mellitus with hemoglobin A1c goal of less than 8.0% ([facility]) Use to test glucose daily. E11.9 100 Each 3 Active OneTouch Verio w/Device KitIndications:Type 2 diabetes mellitus with hemoglobin A1c goal of less than 8.0% ([facility]) Use to test glucose daily. E11.9 1 Kit 0 3 Active Trelegy Ellipta 100-62.5-25 MCG/ACT Aerosol Powder Breath ActivatedIndication s:COPD, group C, by GOLD 2017 classification (HCC) Inhale 1 puff as directed once a day 1 inhalation daily. Rinse mouth after every use. 60 Blister Dosing Unit 3 Active NovoLOG FlexPen 100 UNIT/ML Subcutaneous Solution Pen-injector (insulin aspart)Indications: Type 2 diabetes mellitus with hemoglobin A1c goal of less than 8.0% (HCC) Units as per sliding scale 3 mL 3 3 Active Insulin Glargine Solostar 100 UNIT/ML Subcutaneous Solution Pen-injector (Lantus SoloStar)Indication s:Type 2 diabetes mellitus with hemoglobin A1c goal of less than 8.0% ([facility]) Inject 10 Units under the skin every [...] hemoglobin A1c goal of less than 8.0% ([facility]) Test glucose once daily E11.9 100 Strip [...] opioid overdose. Seek medical help immediately. [email or web address] 1 mL 3 4 Active Additional Information [...] at bedtime. 120 Tablet 5 4 Active Albuterol Sulfate HFA 108 (90 Base) MCG/ACT Inhalation Aerosol SolutionIndications :Bacterial pneumonia Use two puffs four times a day as needed for shortness of breath/wheezing 18 g 3 3 07/22/19 24 Discontinu ed(Refill) documented as of this encounter (statuses as of 07/22/2023) Active Problems Problem Noted Date Diagnosed Date Ischemic rest pain of lower extremity 07/14/2023 Ulcer of right foot, limited to breakdown of ski n 07/14/2023 Dependent rubor 07/14/2023 Atherosclerosis of nez perce artery of extremity Pre-ulcerative corn or callous [...] rinse after steroid. Test performed by Bibiana CERTIFIED PROFESSIONAL CONTROLLER CPFT Old [place] (myocardial infarction) 02/21/2019 Bilateral carotid artery stenosis [...] osteoporosis 07/03/2018 Reactive depression 11/17/2017 Atherosclerosis of nez perce co ronary artery of nez perce heart without angina pectoris 07/22/2015 Overview: Single [...] rinse after steroid. Test performed by Bibiana CERTIFIED PROFESSIONAL CONTROLLER CPFT GENERAL OSTEOARTHROSIS BMI 32.0-32.9,adult Tobacco use [...] ISCHEMIC HRT DIS NOS Coronary atherosclerosis of nez perce coronary artery 11/24/2016 Tobacco abuse 11/17/2017 documented [...] I called and spoke to Dino at [facility]. He states that she has some pain [...] - 07/22/2023 9:51 AM EDT Dino from [facility] ER asking for a call back - pt is currently in their ER [phone] documented in this encounter Plan of Treatment Upcoming Encounters Date Type Department Care Team (Late st Contact Info) Description 08/01/2023 10:00 AM EDT Imaging Vascular Lab, [address] [place] [address] 08/01/2023 11:00 AM EDT Imaging Vascular Lab, [address] [place] [address] 08/01/2023 2:30 PM EDT Office Visit Pharmacy, [address] [place] [address] [place] [address] 08/09/2023 9:40 AM EDT Office Visit Family [address] [phone] Courtney Restrepo MD [address] [place] [address] [place] [address] 08/10/2023 11:30 AM EDT Office Visit Vascular Surgery, [facility] [address] [facility] [place] [address] Nnamdi King MD [address] [facility] [address] 09/27/2023 9:40 AM EDT Office Visit Family Medicine [address] [phone] Courtney Restrepo MD [address] [place] [address] [place] [address] 10/10/2023 4:00 PM EDT Office Visit Nephrology, [facility] [address] [place] [address] Charla Potter MD [address] [place] [address] 10/12/2023 11:00 AM EDT Office Visit Cardiology, [facility] 132 [facility] [place] [address] Frantz Herrera MD 100 [facility] [place] [address] 12/07/2023 9:20 AM EDT Office Visit Family Medicine [address] [place] [phone] Courtney Restrepo MD [address] [place] [address] [place] [address] Scheduled Procedures Name Priority Associated Diagnoses Date/Ti me ESOPHAGOGASTRODUODENOSCOPY ( EGD), FLEXIBLE, TRANSORAL, DIAGNOSTIC Recall Pendleton's esophagus Health Maintenance Due Date Last Done Comments DISCUSS TOBACCO CESSATION (REFER TO SMARTSET #1535) 1949 Cologuard 1994 Fecal Occult Blood Test [...] D LEVEL ONCE IN A LIFETIME-USE SMARTSET# 24910 Completed 10/16/2021, 12/27/2018 Alpha-1 Antitrypsin Discontinued GARDASIL-HPV [...] this encounter Medical Devices Implanted Type Area Gas Engine Repairer Device Identifier Shelf Expiration Date Model / Serial / Lot Stent Graft Icast [id number] - [id number] - [id number] Implanted:Qty : 1 on 04/14/2022 by Nnamdi King MD at OR [facility] N/A: Mesenteric Artery GETINGE : YOELT [id number] 02/21/2023 [id number] / [id number] / [id number] Description:implanted in SMA Stent [place] 3.0x15 Rx - [id number] Implanted:Qty : 1 on 11/12/2022 by Patrice Jose MD at [facility]ARD[facility] LABS [facility] MEDTRONIC : VASCULAR [id number] 11/28/2023 [id number] / / [id number] Stent R2p Misago 6fr [id number] - [id number] Implanted:Qty : 1 on 07/18/2023 by Nnamdi King MD at OR [facility] Right: [facility] : CARDIO SYS [id number] 09/11/2023 [id number] / / [id number] documented as of this encounter Advance Directives [...] the patient have Health Care Power of Commission Specialist? Yes, in chart and reviewed as [...] patient or by statute hierarchy) Care Teams Locomotive Firer/Fireman Relationship Specialty Start Date End Date Courtney Restrepo MD [address] [place] [address] [place] [address] PCP - General Family Medicine 10/17/19 documented as of this encounter
--- OUTSIDE RECORDS SUMMARY | 2023-08-31 06:23 | External Medical Summary | Summary of Care ---
Author Name Unknown Organization [facility] Address [address] [place] [address] Phone [phone] Care Team Providers Care Top Loader Name Role Phone Courtney Restrepo MD Primary Care Prov ider Encounter Details Date Type Department Care Team (Late st Contact Info) Description 07/20/2023 2:15 PM EDT Scheduled Telephone Care Coordination and Integration [address] [place], [place] [id number] Shivam Mckeon [facility] Health Vp Product Marketing [address] [place] [address] Allergies Active Allergy Reactions Criticality Noted Date [...] edema Nitroglycerin Hypotension 12/20/2018 Penicillins Nausea/vomiting 05/17/2007 [place] Hives 10/02/2018 Propoxyphene Edema face/lips/tongue,Hiv es 06/26/2009 documented as of this encounter (statuses as of 07/20/2023) Medications Medication Sig Dispensed Refills Start Date [...] At Discharge, Patient, Reported on 07/18/2023 OneTouch Apolinar [place] 30GIndications:Type 2 diabetes mellitus with hemoglobin A1c goal of less than 8.0% ([facility]) Use to test glucose daily. E11.9 100 Each 5 11/29/2022 Active OneTouch Verio w/Device KitIndications:Type 2 diabetes mellitus with hemoglobin A1c goal of less than 8.0% ([facility]) Use to test glucose daily. E11.9 1 Kit 0 11/29/2022 Active Trelegy Ellipta 100-62.5-25 MCG/ACT Aerosol Powder Breath ActivatedIndications :COPD, group C, by GOLD 2017 classification ([facility]) Inhale 1 puff as directed once [...] opioid overdose. Seek medical help immediately. [email or web address] 1 mL 3 06/14/2023 Active Additional Information [...] as of this encounter (statuses as of 07/20/2023) Active Problems Problem Noted Date Diagnosed Date Ischemic rest pain of lower extremity 07/14/2023 Ulcer of right foot, limited to breakdown of ski n 07/14/2023 Dependent rubor 07/14/2023 Atherosclerosis of eek artery of extremity Pre-ulcerative corn or callous [...] rinse after steroid. Test performed by Bibiana CHIEF KNOWLEDGE OFFICER CPFT Old [place] (myocardial infarction) 02/21/2019 Bilateral carotid artery stenosis [...] osteoporosis 07/03/2018 Reactive depression 11/17/2017 Atherosclerosis of eek co ronary artery of eek heart without angina pectoris 07/22/2015 Overview: Single [...] rinse after steroid. Test performed by Bibiana CHIEF KNOWLEDGE OFFICER CPFT GENERAL OSTEOARTHROSIS BMI 32.0-32.9,adult Tobacco use disorder Hyperlipidemia with target LDL less than 70 Overview: ICD-10 update of inactive term RSD upper limb Overview: left arm Generalized anxiety disorder documented as of this encounter (statuses as of 07/20/2023) Resolved Problems Problem Noted Date Diagnosed Date [...] ISCHEMIC HRT DIS NOS Coronary atherosclerosis of eek coronary artery 11/24/2016 Tobacco abuse 11/17/2017 documented as of this encounter (statuses as of 07/20/2023) Immunizations Name Administration Dates Next Due COVID-19 [...] as of this encounter Progress Notes * Shivam Mckeon [facility] - 07/20/2023 2:37 PM EDT Telemedicine visit: No [facility] Product Marketing (MERRY) documentation: CHW follow up phone call for RNCM and spoke with the patient's caregiver, Dee. She explained that the patient is currently sleeping and asked to take a message. CHW explained that the patient could return the RNCM's phone call when she is available. Akin Mckeon [facility] Worker Lead [facility] [phone] Electronically signed by Shivam Mckeon [facility] Health Vp Product Marketing at 07/20/2023 2:38 PM EDT documented in this encounter Plan of Treatment Upcoming Encounters Date Type Department Care Team (Late st Contact Info) Description 08/01/2023 10:00 AM EDT Imaging Vascular Lab, [address] [place] [address] 08/01/2023 11:00 AM EDT Imaging Vascular Lab, [address] [place] [address] 08/01/2023 2:30 PM EDT Office Visit Pharmacy, [address] [place] [address] [place] [address] 08/09/2023 9:40 AM EDT Office Visit Family [address] [phone] Courtney Restrepo MD [address] [place] [address] [place] [address] 08/10/2023 11:30 AM EDT Office Visit Vascular Surgery, [facility] 132 [facility] [place] [address] Nnamdi King MD [address] [place] [address] 09/27/2023 9:40 AM EDT Office Visit Family [address] [phone] Courtney Restrepo MD [address] [place] [address] [place] [address] 10/10/2023 4:00 PM EDT Office Visit Nephrology, [facility] [address] [place] [address] Charla Potter MD [address] [place] [address] 10/12/2023 11:00 AM EDT Office Visit Cardiology, [facility] 132 [facility] [place] [address] Frantz Herrera MD [address] [place] [address] 12/07/2023 9:20 AM EDT Office Visit Family [address] [phone] Courtney Restrepo MD [address] [place] [address] [place] [address] Scheduled Procedures Name Priority Associated Diagnoses Date/Ti me ESOPHAGOGASTRODUODENOSCOPY ( EGD), FLEXIBLE, TRANSORAL, DIAGNOSTIC Recall Pendleton's esophagus Health Maintenance Due Date Last Done Comments DISCUSS TOBACCO CESSATION (REFER TO SMARTSET #1134) 1949 Cologuard 1994 Fecal Occult Blood Test [...] D LEVEL ONCE IN A LIFETIME-USE SMARTSET# 50123 Completed 10/16/2021, 12/27/2018 Alpha-1 Antitrypsin Discontinued GARDASIL-HPV [...] this encounter Medical Devices Implanted Type Area Pharmacy Care Coordinator Device Identifier Shelf Expiration Date Model / Serial / Lot Stent Graft Icast [id number] - [id number] - [id number] Implanted:Qty : 1 on 04/14/2022 by Nnamdi King MD at OR [facility] N/A: Mesenteric Artery GETINGE : MAQUET [id number] 02/21/2023 [id number] / [id number] / [id number] Description:implanted in SMA Stent [place] 3.0x15 Rx - [id number] Implanted:Qty : 1 on 11/12/2022 by Patrice Jose MD at CARDIAC LABS [facility] MEDTRONIC : VASCULAR [id number] 11/28/2023 [id number] / / [id number] Stent R2p Misago 6fr [id number] - [id number] Implanted:Qty : 1 on 07/18/2023 by Nnamdi King MD at OR [facility] Right: [facility] : CARDIO SYS [id number] 09/11/2023 [id number] / / [id number] documented as of this encounter Advance Directives [...] patient have Health Care Power of Hand Ii Cutter? Yes, in chart and reviewed as current [...] patient or by statute hierarchy) Care Teams Top Loader Relationship Specialty Start Date End Date Courtney Restrepo MD [address] [place] [address] [place] [address] PCP - General Family Medicine 10/17/19 documented as of this encounter
--- OUTSIDE RECORDS SUMMARY | 2023-08-31 06:23 | External Medical Summary | Summary of Care ---
Author Name Unknown Organization [facility] Address [address] [place] [address] Phone [phone] Care Team Providers Care Break Up Worker Name Role Phone Courtney Restrepo MD Primary Care Prov ider Encounter Details Date Type Department Care Team (Late st Contact Info) Description 07/19/2023 Telephone Pharmacy, [address] [place] [phone] [facility] [address] [place] [phone] Allergies Active Allergy Reactions Criticality Noted Date [...] edema Nitroglycerin Hypotension 12/20/2018 Penicillins Nausea/vomiting 05/17/2007 [place] Hives 10/02/2018 Propoxyphene Edema face/lips/tongue,Hiv es 06/26/2009 documented as of this encounter (statuses as of 07/19/2023) Medications Medication Sig Dispensed Refills Start Date [...] taking.Informant: At Discharge, Patient, Reported on 07/18/2023 OneTolaura Brown 30GIndications:Type 2 diabetes mellitus with hemoglobin A1c goal of less than 8.0% ([facility]) Use to test glucose daily. E11.9 100 Each 5 11/29/2022 Active OneTouch Verio w/Device KitIndications:Type 2 diabetes mellitus with hemoglobin A1c goal of less than 8.0% ([facility]) Use to test glucose daily. E11.9 1 Kit 0 11/29/2022 Active Trelegy Ellipta 100-62.5-25 MCG/ACT Aerosol Powder Breath ActivatedIndications :COPD, group C, by GOLD 2017 classification ([facility]) Inhale 1 puff as directed once a [...] suspected opioid overdose. Seek medical help immediately. http://[email or web address].[email or web address] 1 mL 3 06/14/2023 Active Additional Information [...] as of this encounter (statuses as of 07/19/2023) Active Problems Problem Noted Date Diagnosed Date Ischemic rest pain of lower extremity 07/14/2023 Ulcer of right foot, limited to breakdown of ski n 07/14/2023 Dependent rubor 07/14/2023 Atherosclerosis of [place] artery of extremity Pre-ulcerative corn or callous [...] rinse after steroid. Test performed by [facility] [facility] [employer] [place] (myocardial infarction) 02/21/2019 Bilateral [...] osteoporosis 07/03/2018 Reactive depression 11/17/2017 Atherosclerosis of [place] co ronary artery of un[place] heart without angina pectoris 07/22/2015 Overview: Single [...] and rinse after steroid. Test performed by [place] [facility] [employer] GENERAL OSTEOARTHROSIS BMI 32.0-32.9,adult Tobacco use disorder Hyperlipidemia with target LDL less than 70 Overview: ICD-10 update of inactive term RSD upper limb Overview: left arm Generalized anxiety disorder documented as of this encounter (statuses as of 07/19/2023) Resolved Problems Problem Noted Date Diagnosed Date [...] ISCHEMIC HRT DIS NOS Coronary atherosclerosis of un[place] coronary artery 11/24/2016 Tobacco abuse 11/17/2017 documented as of this encounter (statuses as of 07/19/2023) Immunizations Name Administration Dates Next Due COVID-19 [...] Telephone Encounter - Zenia Goldberg RPh - 07/19/2023 1:48 PM EDT Per [employer] portal, Dee Kirkland to Everyone Hello, Patient is refusing to speak with us when we call for consent. We can ship once we get consent. thank you Attempted to contact patient to make aware to return call to [facility] at [phone]. No answer, unable to LM. MeetLinkshareG message sent. Zenia Goldberg RPh, PharmD Clinical Pharmacist - Planning Rn Medication Therapy [facility] 07/19/2023, 1:49 PM [phone] documented in this encounter Plan of Treatment Upcoming Encounters Date Type Department Care Team (Late st Contact Info) Description 08/01/2023 10:00 AM EDT Imaging Vascular Lab, [address] [place] [address] 08/01/2023 11:00 AM EDT Imaging Vascular Lab, [address] [place] [address] 08/01/2023 2:30 PM EDT Office Visit Pharmacy, [address] [place] [address] [place] [address] 08/09/2023 9:40 AM EDT Office Visit Family [address] [place] [phone] Courtney Restrepo MD [address] [place] [address] [place] [address] 08/10/2023 11:30 AM EDT Office Visit Vascular Surgery, [facility] [address] [facility] [place] [address] Nnamdi King MD [address] [place], [place] [id number] 09/27/2023 9:40 AM EDT Office Visit [address] [place] [phone] Courtney Restrepo MD [address] [place] [address] [place] [address] 10/10/2023 4:00 PM EDT Office Visit Nephrology, [address] [place] [address] Charla Potter MD [address] [place] [address] [place] [address] 10/12/2023 11:00 AM EDT Office Visit Cardiology, [facility] [address] [facility] [place] [address] Frantz Herrera MD [address] [place], [place] [phone] 12/07/2023 9:20 AM EDT Office Visit Family Medicine [address] [place] [phone] Courtney Restrepo MD [address] [place] [address] [place] [address] Scheduled Procedures Name Priority Associated Diagnoses Date/Ti me ESOPHAGOGASTRODUODENOSCOPY ( EGD), FLEXIBLE, TRANSORAL, DIAGNOSTIC Recall Pendleton's esophagus Health Maintenance Due Date Last Done Comments DISCUSS TOBACCO CESSATION (REFER TO SMARTSET #6231) 1949 Cologuard 1994 Fecal Occult Blood Test [...] D LEVEL ONCE IN A LIFETIME-USE SMARTSET# [id number] Completed 10/16/2021, 12/27/2018 Alpha-1 Antitrypsin Discontinued GARDASIL-HPV [...] encounter Medical Devices Implanted Type Area Gas Treater Device Identifier Shelf Expiration Date Model / Serial / Lot Stent Graft Icast [id number] - [id number] - [id number] Implanted:Qty : 1 on 04/14/2022 by [place]namdi King [place] [facility] Mesenteric Artery GETINGE : MAQUET [id number] 02/21/2023 [id number] / [id number] / [id number] Description:implanted in SMA Stent [place] 3.0x15 Rx - [id number] Implanted:Qty : 1 on 11/12/2022 by Patrice Jose MD at [facility] [facility] [employer] : VASCULAR [id number] 11/28/2023 [id number] / / [id number] Stent R2p Misago 6fr [id number] - [id number] Implanted:Qty : 1 on 07/18/2023 by Nnamdi King MD [place] [facility] Right: [facility] MED[facility] : CARDIO SYS [id number] 09/11/2023 [id number] / / [id number] documented as of this encounter Advance Directives [...] the patient have Health Care Power of Plastic Surgery Specialist? Yes, in chart and reviewed as [...] patient or by statute hierarchy) Care Teams Break Up Worker Relationship Specialty Start Date End Date Courtney Restrepo MD [address] [place] [address] [place] [address] PCP - General Family Medicine 10/17/19 documented as of this encounter
--- OUTSIDE RECORDS SUMMARY | 2023-08-31 06:23 | External Medical Summary | Summary of Care ---
Author Name Unknown Organization [facility] Address [address] [place] [address] Phone [phone] Care Team Providers Care Rigging Up Man Name Role Phone Courtney Restrepo MD Primary Care Prov ider Encounter Details Date Type Department Care Team (Late st Contact Info) Description 07/21/2023 Telephone Vascular Surg [facility] [address] [place] [address] Pippa Dixon PA-C [address] [place] [phone] Allergies Active Allergy Reactions Criticality Noted Date [...] edema Nitroglycerin Hypotension 12/20/2018 Penicillins Nausea/vomiting 05/17/2007 [place] Hives 10/02/2018 Propoxyphene Edema face/lips/tongue,Hiv es 06/26/2009 documented as of this encounter (statuses as of 07/21/2023) Medications Medication Sig Dispensed Refills Start Date [...] C, by GOLD 2017 classification ([facility]) Inhale 1 puff as directed once a day 1 inhalation daily. Rinse mouth after every use. 60 Blister Dosing Unit 5 11/29/2022 Active NovoLOG FlexPen 100 UNIT/ML Subcutaneous Solution Pen-injector (insulin aspart)Indications:T ype 2 diabetes mellitus with hemoglobin A1c goal of less than 8.0% ([facility]) Units as per sliding scale 3 mL 3 02/04/2023 Active Insulin Glargine Solostar 100 UNIT/ML Subcutaneous Solution Pen-injector (Lantus SoloStar)Indications :Type 2 diabetes mellitus with hemoglobin A1c goal of less than 8.0% ([facility]) Inject 10 Units under the skin every [...] less than 8.0% ([facility]) Test glucose once daily E11.9 100 Strip [...] opioid overdose. Seek medical help immediately. http://[email or web address] 1 mL 3 06/14/2023 Active Additional Information [...] as of this encounter (statuses as of 07/21/2023) Active Problems Problem Noted Date Diagnosed Date Ischemic rest pain of lower extremity 07/14/2023 Ulcer of right foot, limited to breakdown of ski n 07/14/2023 Dependent rubor 07/14/2023 Atherosclerosis of [place] artery of extremity Pre-ulcerative corn or callous [...] rinse after steroid. Test performed by [facility] TE[employer] CPFT Old [place] (myocardial infarction) 02/21/2019 Bilateral [...] osteoporosis 07/03/2018 Reactive depression 11/17/2017 Atherosclerosis of [place] co ronary artery of [place] heart without angina pectoris 07/22/2015 Overview: Single [...] rinse after steroid. Test performed by [facility] TE[employer] GENERAL OSTEOARTHROSIS BMI 32.0-32.9,adult Tobacco use disorder Hyperlipidemia with target LDL less than 70 Overview: ICD-10 update of inactive term RSD upper limb Overview: left arm Generalized anxiety disorder documented as of this encounter (statuses as of 07/21/2023) Resolved Problems Problem Noted Date Diagnosed Date [...] ISCHEMIC HRT DIS NOS Coronary atherosclerosis of [place] coronary artery 11/24/2016 Tobacco abuse 11/17/2017 documented as of this encounter (statuses as of 07/21/2023) Immunizations Name Administration Dates Next Due COVID-19 [...] encounter Miscellaneous Notes * Telephone Encounter - Pippa Dixon PA-C - 07/21/2023 3:08 PM EDT 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 I told them that I agree with the concern for PA and that I believe the patient should be evaluated with ultrasound prior to 07/31 follow-up appointment. [place] I suggested the ED. The home health nurse with follow-up with us after noninvasive testing is completed. They thanked me for the call documented in this encounter Plan of Treatment Upcoming Encounters Date Type Department Care Team (Late st Contact Info) Description 08/01/2023 10:00 AM EDT Imaging Vascular Lab, [address] [facility] [place] [address] 08/01/2023 11:00 AM EDT Imaging Vascular Lab, [address] [facility] [place] [address] 08/01/2023 2:30 PM EDT Office Visit Pharmacy, [address] [place] [address] [place] [address] 08/09/2023 9:40 AM EDT Office Visit Family [address] [phone] Courtney Restrepo MD [address] [place] [address] [place] [address] 08/10/2023 11:30 AM EDT Office Visit Vascular Surgery, [facility] [address] [place] [address] Nnamdi King MD [address], [place] [id number] 09/27/2023 9:40 AM EDT Office Visit Family [address] [phone] Courtney Restrepo MD [address] [place] [address] [place] [address] 10/10/2023 4:00 PM EDT Office Visit Nephrology, [address] [place] [address] Charla Potter MD [address] [place] [address] 10/12/2023 11:00 AM EDT Office Visit Cardiology, [facility] [address] [place] [address] Frantz Herrera MD [address] [place] [address] 12/07/2023 9:20 AM EDT Office Visit Family [address] [phone] Courtney Restrepo MD [address] [place] [address] [place] [address] Scheduled Procedures Name Priority Associated Diagnoses Date/Ti me ESOPHAGOGASTRODUODENOSCOPY ( EGD), FLEXIBLE, TRANSORAL, DIAGNOSTIC Recall Pendleton's esophagus Health Maintenance Due Date Last Done Comments DISCUSS TOBACCO CESSATION (REFER TO SMARTSET #5947) 1949 Cologuard 1994 Fecal Occult Blood Test [...] D LEVEL ONCE IN A LIFETIME-USE SMARTSET# 93474 Completed 10/16/2021, 12/27/2018 Alpha-1 Antitrypsin Discontinued GARDASIL-HPV [...] this encounter Medical Devices Implanted Type Area Bias Cutter Device Identifier Shelf Expiration Date Model / Serial / Lot Stent Graft Icast [id number] - [id number] - [id number] Implanted:Qty : 1 on 04/14/2022 by Nnamdi King MD at OR [facility] [place] N/A: Mesenteric Artery GETINGE : MAQUET [id number] 02/21/2023 [id number] / [id number] / [id number] Description:implanted in SMA Stent [place] 3.0x15 Rx - [id number] Implanted:Qty : 1 on 11/12/2022 by Patrice Jose MD at [facility] [employer] : VASCULAR [id number] 11/28/2023 [id number] / / [id number] Stent R2p Misago 6fr [id number] - [id number] Implanted:Qty : 1 on 07/18/2023 by Nnamdi King MD at OR [facility] Right: [facility] : CARDIO SYS [id number] 09/11/2023 [id number] / / [id number] documented as of this encounter Advance Directives [...] the patient have Health Care Power of Spray Painter? Yes, in chart and reviewed as [...] patient or by statute hierarchy) Care Teams Rigging Up Man Relationship Specialty Start Date End Date Courtney Restrepo MD [address] [place] [address] [place] [address] PCP - General Family Medicine 10/17/19 documented as of this encounter
--- OUTSIDE RECORDS SUMMARY | 2023-08-31 06:24 | External Medical Summary | Summary of Care ---
Author Name Unknown Organization [facility] Address [address] [place] [address] Phone [phone] Care Team Providers Care Shoe Maker Name Role Phone Courtney Restrepo MD Primary Care Prov ider Reason for Referral * Evaluate & Treat - Unlimited Visits (Within 10 days (routine)) - Authorized Specialty Diagnoses / Procedures Referred By Rosalia chandra Referred To Contact Pharmacist / Pharmacy Diagnoses 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) Courtney Restrepo MD [address] [place] [address] [place] [address] Referral ID Status Reason Start Date Expiration Date Visits Requested Visits Authorized [id number] Authorized Specialty Services Required 07/12/2023 99 99 Question Answer Referral Priority Within 10 days (routine) Where should this appointment be scheduled? [facility] Referring Provider Role: Primary Care Reason for Referral: DM Target A1c: < 8 Comments Pharmacist Medication Therapy Management: Minimum frequency patient should be seen in person for medication management: as appropriate per clinical condition and patient status By my signature, I understand that my patient Carlotta Khan will have her medication therapy managed by the [facility] ([facility]) per established policies, procedures, and protocols. I also certify that this referral may serve as an initiation of service for the management of drug therapy in the above noted patient. [facility] providers will be responsible for scheduling patient visits, obtaining appropriate laboratory studies, and adjusting medication management therapy per patient's need, in addition to those roles spelled out in the clinic policy, procedures, and drug management protocols. I understand that the service provided by the [facility] is voluntary and have informed patient that they can refuse the service at their discretion. I am aware that the [facility] Clinic will provide me with a copy of the patient encounter via my [employer]. I authorize the [facility] to carry out these activities on my behalf. I consider this program to be a necessary part of the patient's medical care. Courtney Jay MD * Precert (Within 24 hrs (call dept; emergent)) - Authorized Specialty Diagnoses / Procedures Referred By Contac t Referred To Contact Radiology Diagnoses Neck pain Procedures CT C SPINE WO CONTRAST Courtney Restrepo MD [address] [place] [address] [place] [address] Referral ID Status Reason Start Date Expiration Date V isits Requested Visits Authorized [id number] Authorized Precert 07/12/2023 08/10/2023 999 999 * Precert (Within 24 hrs (call dept; emergent)) - Authorized Specialty Diagnoses / Procedures Referred By Contgail chandra Referred To Contact Radiology Diagnoses Closed head injury, initial encounter Procedures CT HEAD/BRAIN WO CONTRAST Courtney eRstrepo MD [address] [place] [address] [place] [address] Referral ID Status Reason Start Date Expiration Date V isits Requested Visits Authorized [id number] Authorized Precert 07/12/2023 08/10/2023 999 999 Reason for Visit * Reason Comments Acute Encounter Details Date Type Department Care Team (Latest Contact Info) Description 07/12/2023 10:00 AM EDT Office Visit Family [address] [place] [phone] Courtney Restrepo MD [address] [place] [address] [place] [address] Closed head injury, initial encounter*; Dysuria; Neck pain; Atypical chest pain; 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); Pre-ulcerative corn or callous; Tobacco use disorder; 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-dominant side ([facility]); COPD, group D, by GOLD 2017 classification ([facility]); Recurrent major depressive disorder, remission status unspecified ([facility]); Generalized anxiety disorder; Atherosclerosis of clark's point coronary artery of clark's point heart without angina pectoris; Senile osteoporosis; Hyperlipidemia with target LDL less than 70 [...] edema Nitroglycerin Hypotension 12/20/2018 Penicillins Nausea/vomiting 05/17/2007 Schleicher Hives 10/02/2018 Propoxyphene Edema face/lips/tongue,Hiv es 06/26/2009 documented as of this encounter (statuses as of 07/15/2023) Medications Medication Sig Dispensed Refills Start Date End Date Status Albuterol Sulfate HFA 108 (90 Base) MCG/ACT Inhalation Aerosol SolutionIndications :Bacterial pneumonia Use two puffs four times a day as needed for shortness of breath/wheezing 18 g 3 3 Active Additional Information Patient taking differently: 2 Puff Q6H PRN, Wheezing, (No instructions reported), Informant: At Discharge, Reported on 06/22/2023 Loratadine 10 MG Oral Tablet (Claritin) Take [...] Additional Information Patient not taking.Informant: At Discharge, Reported on 07/14/2023 OneTouch DelRazmir Lancets 30GIndications:Type 2 diabetes mellitus with hemoglobin A1c goal of less than 8.0% ([facility]) Use to test glucose daily. E11.9 100 Each 5 3 Active OneTouch Verio w/Device KitIndications:Type 2 diabetes mellitus with hemoglobin A1c goal of less than 8.0% ([facility]) Use to test glucose daily. E11.9 [...] goal of less than 8.0% ([facility]) Test glucose once daily E11.9 100 Strip 5 3 Active Calcium Carbonate 600 MG Oral Tablet (Calcium 600) Take 1 Tablet by mouth 2 times a day with morning and evening meals. (Not TUMS) 0 Active Lidocaine 4 % External Patch (Aspercreme) Place 1 Patch over 12 hours topically on the skin daily. 30 Patch 0 4 Active Additional Information Patient not taking.Reported on 07/14/2023 Ondansetron HCl 4 MG Oral Tablet (Zofran)Indications :Nausea Take 1 Tablet by mouth every 8 hours as needed for Nausea. 20 Tablet 0 4 Active Additional Information Patient not taking.Reported on 07/01/2023 Sucralfate 1 GM Oral Tablet (Carafate) Take 1 Tablet by mouth 4 times a day before meals and at bedtime. 120 Tablet 0 4 Active Polyethylene Glycol 3350 17 GM/SCOOP Oral [...] 0 4 Active Additional Information Patient not taking.Reported on 07/01/2023 Naloxone HCl 0.4 MG/ML Injection Solution (Narcan) Inject 1mL into a large muscle for suspected opioid overdose. Seek medical help immediately. [email or web address] 1 mL 3 4 Active Additional Information Patient not taking.Reported on 06/22/2023 Pantoprazole Sodium 40 MG Oral Tablet Delayed [...] needed for Pain, Moderate. 28 Tablet 0 4 Active Baclofen 5 MG Oral Tablet (Lioresal) Take 1 Tablet by mouth in the morning and 1 Tablet at noon and 1 Tablet before bedtime. As needed for muscle spasm. 30 Tablet 0 4 Active Acetaminophen 325 MG Oral Tablet (Tylenol) Take 3 Tablets by mouth in the morning and 3 Tablets at noon and 3 Tablets before bedtime. 270 Tablet 0 4 07/14/19 24 Gabapentin 300 MG Oral Capsule (Neurontin) Take 1 Capsule by mouth in the morning and 1 Capsule before bedtime. 60 Capsule 3 4 07/15/19 24 Discontinue d(Refill) documented as of this encounter (statuses as of 07/15/2023) Active Problems Problem Noted Date Diagnosed Date Ischemic rest pain of lower extremity 07/14/2023 Ulcer of right foot, limited to breakdown of ski n 07/14/2023 Dependent rubor 07/14/2023 Atherosclerosis of clark[place] artery of extremity Pre-ulcerative corn or callous [...] rinse after steroid. Test performed by Bibiana DINKEY ENGINE FIRER CPFT Old VT (myocardial infarction) 02/21/2019 Bilateral [...] osteoporosis 07/03/2018 Reactive depression 11/17/2017 Atherosclerosis of [place] co ronary artery of [place]ark[place] heart without angina pectoris 07/22/2015 Overview: Single [...] rinse after steroid. Test performed by Bibiana DINKEY ENGINE FIRER CPFT GENERAL OSTEOARTHROSIS BMI 32.0-32.9,adult Tobacco use disorder Hyperlipidemia with target LDL less than 70 Overview: ICD-10 update of inactive term RSD upper limb Overview: left arm Generalized anxiety disorder documented as of this encounter (statuses as of 07/15/2023) Resolved Problems Problem Noted Date Diagnosed Date [...] ISCHEMIC HRT DIS NOS Coronary atherosclerosis of clark[place] coronary artery 11/24/2016 Tobacco abuse 11/17/2017 documented as of this encounter (statuses as of 07/15/2023) Immunizations Name Administration Dates Next Due COVID-19 [...] Tobacco: Every Day Cigarettes Smokeless Tobacco: Never Comments:06/29/23 1 pack ciga rettes daily, declined pamphlet Alcohol Use [...] Sign Reading Time Taken Comments Blood Pressure 120/60 07/12/2023 9:53 AM EDT Pulse 89 07/12/2023 9:53 AM EDT Temperature 36 C (96.8 F) 07/12/2023 9:53 AM EDT Respiratory Rate - - Oxygen Saturation 95% 07/12/2023 9:53 AM EDT Inhaled Oxygen Concentration - - Weight 68 kg (150 lb) 07/12/2023 9:53 AM EDT Height - - Body Mass Index 27 06/07/2023 7:22 AM EDT documented in this encounter Functional Status Functional [...] this encounter Progress Notes * Waldemar Morejon, oCurtney Godfrey MD - 07/12/2023 9:59 AM EDT Subjective Carlotta Khan is a 72 year old female. Chief Complaint Patient presents with Acute HPI: Acute visit for right leg concerns; having swelling of the right foot. PMH includes recent left AKA due to PAD, dedicated smoker, type 2 DM, Lipids, COPD, Mesenteric ischemia, h/o CVA, h/o VT, Fall. Rolled out of bed on 07/04/23. Went to ER on 07/06/23 due to arm bleeding and headache. CT headnegative for ICH. CT neck negative for fracture. Reports she has continued headache and eye pain. Today c/o burning and frequency on urination. About 1 week. No fevers, chills, n/v. Callous on right toe, concerned about ischemia. Seeing vascular surgery tomorrow. Right foot is swollen, tender, with callous to tip of right 3rd toe. BP. Was prescribed metoprolol 12.5mg at hospital discharge, but never received the medication. BP reading today is low; she had a recent fall as well. Tobacco. Back to smoking 2-4 packs per day. States with the stress she has, she has not been takingcare of herself. Started smoking again, eating horribly. States she knows it's a problem. Has NRT patches at home; thinking about quitting again. DM. A1C 9.1. Using lantus and novolog. Diet is terrible. PMH: Patient Active Problem List Diagnosis Code Moderate persistent asthma without complication J45.40 GENERAL OSTEOARTHROSIS M15.9 Cerebrovascular disease, arteriosclerotic, post-stroke I67.2, Z86.73 ADVANCE DIRECTIVE INFORMATION BMI 32.0-32.9,adult Z68.32 Tobacco use disorder F17.200 Hyperlipidemia with target LDL less than 70 E78.5 RSD upper limb G90.519 Type 2 diabetes mellitus with hemoglobin A1c goal of less than 8.0% ([facility]) E11.9 Controlled substance agreement signed Z79.899 Generalized anxiety disorder F41.1 Atherosclerosis of clark[place] coronary artery of clark[place] heart without angina pectoris I25.10 Reactive depression F32.9 Senile osteoporosis M81.0 PVD (peripheral vascular disease) ([facility]) I73.9 Iron deficiency anemia due to chronic blood loss D50.0 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 K22.70 Chronic superficial gastritis with bleeding K29.31 Gastrointestinal hemorrhage with melena K92.1 Lung nodules R91.8 Moderate mitral regurgitation I34.0 Old VT (myocardial infarction) I25.2 Bilateral carotid artery stenosis I65.23 DM type 2 with diabetic peripheral neuropathy ([facility]) E11.42 Right hand tendonitis M77.8 Generalized arthritis M19.90 Hand arthritis M19.049 Centrilobular emphysema ([facility]) J43.2 Polyneuropathy in other diseases classified elsewhere ([facility]) G63 Superior mesenteric artery stenosis ([facility]) 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 ([facility]) I77.1 Major depressive disorder, recurrent, unspecified ([facility]) F33.9 Non-proliferative diabetic retinopathy, both eyes ([facility]) E11.3293 Recurrent major depressive disorder, in partial remission ([facility]) F33.41 Mesenteric ischemia, chronic ([facility]) K55.1 COPD, group D, by GOLD 2017 classification ([facility]) J44.9 Chronic ischemic heart disease I25.9 Advanced directives, counseling/discussion Z71.89 Type 2 diabetes mellitus with peripheral artery disease ([facility]) E11.51 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- dominant side ([facility]) I69.354 Wound drainage T14.8XXA 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 History of cardiac arrest Z86.74 Shock ([facility]) R57.9 Lactic acidosis E87.20 Transaminitis R74.01 Encephalopathy acute G93.40 Pathological fracture of vertebra due to osteoporosis with routine healing, subsequent encounter M80.08XD S/P AKA (above knee amputation), left ([facility]) Z89.612 Status post below-knee amputation of left lower extremity ([facility]) Z89.512 Pre-ulcerative corn or callous L84 Current Outpatient Medications Medication Sig Dispense Refill [...] 1 Capsule before bedtime. 180 Capsule 2 VERTILAS Delica Lancets 30G Use to test glucose [...] Take 1 Capsule by mouth every evening. ValmarcTouch Verio In Vitro Strip (Glucose Blood) Test [...] of Breath. (Patient not taking: Reported on 07/01/2023) 100 mL 3 Lidocaine 4 % External Patch (Aspercreme) Place 1 Patch over 12 hours topically on the skin daily. (Patient not taking: Reported on 07/01/2023) 30 Patch 0 Ondansetron HCl 4 MG [...] suspected opioid overdose. Seek medical help immediately. [email or web address] (Patient not taking: Reported on 06/22/2023) 1 [...] and periorbital edema Nitroglycerin Hypotension Penicillins Nausea/vomiting Schleicher Hives Propoxyphene Edema face/lips/tongue and Hives Objective BP 120/60 | Pulse 89 | Temp 36 C (96.8 F) (Tympanic) | Wt 68 kg (150 lb) | SpO2 95% | BMI 27.00kg/m | BSA 1.73 m Physical Exam HENT: Head: Normocephalic and atraumatic. Mouth/Throat: Mouth: Mucous membranes are moist. Eyes: Extraocular Movements: Extraocular movements intact. Neck: Comments: Cervical spine tenderness to palpation and ROM Cardiovascular: Rate and Rhythm: Normal rate and regular rhythm. Pulmonary: Effort: Pulmonary effort is normal. Breath sounds: Rhonchi present. Musculoskeletal: Cervical back: Tenderness present. Right lower leg: Edema present. Comments: Callous right 3rd toe; foot swollen and erythematous Left BKA, with dry/clean dressing Neurological: Mental Status: She is alert. Cranial Nerves: Cranial nerve deficit present. Comments: Left facial droop (chronic) ASSESSMENT/PLAN: Closed head injury, initial encounter (Primary) - CT HEAD/BRAIN WO CONTRAST Dysuria - URINALYSIS, POINT OF CARE (ENTER/EDIT) - CULTURE, URINE, QUANTITATIVE Neck pain - CT C SPINE WO CONTRAST Atypical chest pain - EKG; Future; Expected date: 07/12/2023 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) - PHARMACIST MEDS THERAPY MGMT REFERRAL OP Pre-ulcerative corn or callous Tobacco use disorder 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- dominant side (HCC) COPD, group D, by GOLD 2017 classification (HCC) Recurrent major depressive disorder, remission status unspecified (HCC) Generalized anxiety disorder Atherosclerosis of clark[place] point coronary artery of clark[place] heart without angina pectoris Senile osteoporosis Hyperlipidemia with target LDL less than 70 Follow Up: Return in about 4 weeks (around 08/09/2023) for Return with Physician. | For: Return withPhysician | Check-out note: 40 minute with PCP in 1 month. Necessary please. Reschedule cardiology appt (pt had canceled) Carlotta presents with multiple concerns today. She has severe vasculopathy and continues to use tobacco. Fall with head and neck pain. Reviewed CT scans from ER visit 07/05, negative for ICH or spinal fracture. Recommend repeating scans in case of occult fracture or subdural hematoma. Atypical chest pain. She mentioned this towards the end of the visit; atypical (brief pains in mid chest). EKG shows NSR Right 3rd toe callous. Suspect 2/2 PAD; and she has appt with vascular surgery tomorrow. Dysuria. Suspect due to uncontrolled blood sugar. Urine culture sent. Uncontrolled DM. Recommend MTM referral to optimize blood sugar management. Arrange close follow up Courtney Jay MD 45 mins spent with patient > 50% counselling and coordinating care. documented in this encounter Nursing Notes * Jose Enrique Guo LPN - 07/12/2023 9:45 AM EDT Chief Complaint Patient presents with Acute BP today 120/60 She states she has not received Metoprolol due to not sent in when discharged from Hospital Care nurse states Home BP 158/72 Home BP cuff never calibrated Burning / frequency with urination x 1 wk Right Lower foot swelling and painful. Taking Lasix as ordered and Elevating Right Foot Callus on tip of Right 3rd toe Duration- 5 days She has apt with Vascular surgery tomorrow Sutures remain intact to left stump. May get sutures removed tomorrow or will get done on 07/20/23 Fell out of Bed on 07/02 on to floor. Skin tear to Left arm and Hit Left side of Face. Went to [place] ER On 07/06/2023 and No injuries found. Skin tears Healing with out S/sx infection and just remain scabbed areas The patient has been properly identified by confirmation of name and date of . documented in this encounter Plan of Treatment Upcoming Encounters Date Type Department Care Team (Latest Contact Info) Description 07/18/2023 7:15 AM EDT Hospital Encounter OR [facility], OPERATING ROOM [facility] [address] [place] [phone] Nnamdi King MD [address] [place] [address] 07/18/2023 7:15 AM EDT - 07/18/2023 9:10 AM EDT Surgery OR [facility], OPERATING ROOM [facility] [address] [place] [phone] Nnamdi King MD [address], [place] [id number] IMAGING SUPERVISION & INTERPRETATION EXTREMITY UNILATERAL 08/01/2023 10:00 AM EDT Imaging Vascular Lab, [facility] [address] [place] [address] 08/01/2023 11:00 AM EDT Imaging Vascular Lab, [facility] [address] [place] [address] 08/01/2023 2:30 PM EDT Office Visit Pharmacy, [address] [place] [address] [place] [address] 08/09/2023 9:40 AM EDT Office Visit Family [address] [phone] Courtney Restrepo MD [address] [place] [address] [place] [address] 08/10/2023 11:30 AM EDT Office Visit Vascular Surgery, [facility] [place] [address] [place] [address] Nnamdi King MD [address] [place] [address] 09/27/2023 9:40 AM EDT Office Visit [address] [phone] Courtney Restrepo MD [address] [place] [address] [place] [address] 10/10/2023 4:00 PM EDT Office Visit Nephrology, [address] [place] [address] Charla Potter MD [address] [place], [place] [id number] 10/12/2023 11:00 AM EDT Office Visit Cardiology, [facility] [place] [address] [place] [address] Frantz Herrera MD [address] [place] [address] 12/07/2023 9:20 AM EDT Office Visit Family [address] [phone] Courtney Restrepo MD [address] [place] [address] [place] [address] Scheduled Procedures Name Priority Associated Diagnoses Date/Ti me IMAGING SUPERVISION & INTERP RETATION EXTREMITY UNILATERAL Atherosclerosis of clark[place] point artery of right lower extremity with ulceration of other part of foot (HCC) 07/18/2023 7:15 AM EDT FEM/POP ARTERY REVASC W/ STENT+ANGIOPLASTY Atherosclerosis of clark's [place] artery of right lower extremity with ulceration of other part of foot (HCC) 07/18/2023 7:15 AM EDT ESOPHAGOGASTRODUODENOSCOPY ( EGD), FLEXIBLE, TRANSORAL, DIAGNOSTIC Recall Pendleton's esophagus Scheduled Referrals Name Type Priority Associated Diagnoses Orde r Schedule PHARMACIST MEDS THERAPY MGMT REFERRAL OP Referral Within 10 days (routine) 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) Ordered: 07/12/2023 Health Maintenance Due Date Last Done Comments DISCUSS TOBACCO CESSATION (REFER TO SMARTSET #[id number]) 1950 Cologuard 1994 Fecal Occult Blood Test [...] 05/19/2024 05/20/2023, 08/2021, 05/12/2017, Additional history exists O2 ASSESSMENT COMPLETED IN PAST YEAR FOR COPD 06/06/2024 06/07/2023 GFR 06/14/2024 06/15/2023, 04/2023, 06/13/2023, Additional history exists DTaP,Tdap,and Td Vaccines (3 - Td or Tdap) 07/15/2031 07/14/2021 (Declined), 07/27/2010 Pneumococcal Vaccine: 65+ Years Completed 10/27/2015, 08/08/2014, 05/30/2008 RETIRED - COLONOSCOPY-EVERY 5 YRS AGES 18-100 Discontinued 09/27/2018, 09/27/2018, 07/13/2018, Additional history exists VITAMIN D LEVEL ONCE IN A LIFETIME-USE SMARTSET# [id number] Completed 10/16/2021, 12/27/2018 Alpha-1 Antitrypsin Discontinued GARDASIL-HPV [...] this encounter Medical Devices Implanted Type Area Top Lift Compressor Device Identifier Shelf Expiration Date Model / Serial / Lot Stent Graft Icast [id number] - [id number] - [id number] Implanted:Qty : 1 on 04/14/2022 by Nnamdi King MD at OR [facility] N/A: Mesenteric Artery GETINGE : MAQUET [id number] 02/21/2023 [id number] / [id number] / [id number] Description:implanted in SMA Stent [place] 3.0x15 Rx - [id number] Implanted:Qty : 1 on 11/12/2022 by Patrice Jose MD at CARDIAC LABS [facility] [employer] : VASCULAR [id number] 11/28/2023 [id number] / / [id number] 2 documented as of this encounter Procedures Procedure Name Priority Date/Time Associated Diagnosis Comments CT C SPINE WO CONTRAST STAT 07/13/2023 10:14 AM EDT Neck pain CT HEAD/BRAIN WO CONTRAST STAT 07/13/2023 10:14 AM EDT Closed head injury, initial encounter CULTURE, URINE, QUANTITATIVE Routine 07/12/2023 10:38 AM EDT Dysuria URINALYSIS, POINT OF CARE (ENTER/EDIT) Routine 07/12/2023 Dysuria documented in this encounter Results * CT C SPINE WO CONTRAST (07/13/2023 10:14 AM EDT) Anatomical Region Laterality Modality Cspine, Spine, Neck, Vertebra Co mputed Tomography 07/13/2023 10:3 1 AM EDT Impressions 07/13/2023 10:[address] HEAD: No intracranial hemorrhage or calvarial fracture. A large right MCA territory infarct and associated sequelae are again noted. Global brain volume loss and white matter lucencies. Although nonspecific, these changes most likely reflect chronic microvascular ischemic disease, further supported by intracranial atherosclerosis. CT CERVICAL SPINE: No acute fracture deformity or traumatic subluxation. Multilevel degenerative disc disease, as detailed. Narrative 07/13/2023 10:[address] HEAD AND CERVICAL SPINE WITHOUT CONTRAST - 07/13/2023 HISTORY 72 y/o F status post fall with headache and neck pain. TECHNIQUE Axial CT images of the head and cervical spine were obtained without contrast. Coronal and sagittal reconstructions are provided. COMPARISON CT head 01/18/2023. MRI cervical spine 10/04/2009. FINDINGS CT HEAD: No acute intracranial hemorrhage or calvarial fracture. A large right MCA territory infarct and associated sequelae are again noted. There is no recent territorial transcortical infarct. No hydrocephalus, downward herniation, midline shift, mass effect or extra-axial fluid collections. Global brain volume loss is also again noted, with proportionate ventriculosulcal prominence. Partially empty sella is noted, a nonspecific finding. Periventricular and deep white matter lucencies are most commonly associated with chronic microvascular ischemic disease. Calcified intracranial atherosclerotic disease is noted. Unremarkable orbits. Chronic postoperative and inflammatory changes of the paranasal sinuses. A moderate volume right mastoid effusion is similar. No discernible nasopharyngeal mass. Visualized craniofacial soft tissues are normal. CT CERVICAL SPINE: Diffuse osseous demineralization. Photon starvation artifact caudal to the C5 level could obscure nondisplaced fractures or other mild injuries. Straightening and minimal partial reversal of the expected cervical lordosis, likely positional and/or degenerative. No acute fracture deformity or traumatic subluxation is demonstrated. No discernable epidural hematoma. Prevertebral soft tissues are not thickened. Partial interbody fusion C3-4. Multilevel facet ankylosis. Widespread discoligamentous mineralization suggesting a deposition disease. Mild chronic appearing loss of vertebral body heights at C4, C5 and C6. There are multilevel degenerative changes including intervertebral disc flattening, dorsal disc osteophyte complex, facet arthropathy and uncovertebral hypertrophy. Changes result in most notable moderate bilateral C3-4 bony neural foraminal narrowing. At least mild spinal canal stenosis is suspected at C4-5. Calcified atherosclerotic disease. Biapical emphysematous changes. Postoperative changes after right carotid endarterectomy. Procedure Note Rudy Bond MD - 07/13/[address] HEAD AND CERVICAL SPINE WITHOUT CONTRAST - 07/13/2023 HISTORY 72 y/o F status post fall with headache and neck pain. TECHNIQUE Axial CT images of the head and cervical spine were obtained withoutcontrast. Coronal and sagittal reconstructions are provided. COMPARISON CT head 01/18/2023. MRI cervical spine 10/04/2009. FINDINGS CT HEAD: No acute intracranial hemorrhage or calvarial fracture. A large right MCA territory infarct and associated sequelae are againnoted. There is no recent territorial transcortical infarct. No hydrocephalus,downward herniation, midline shift, mass effect or extra-axial fluidcollections. Global brain volume loss is also again noted, with proportionateventriculosulcal prominence. Partially empty sella is noted, a nonspecificfinding. Periventricular and deep white matter lucencies are most commonlyassociated with chronic microvascular ischemic disease. Calcifiedintracranial atherosclerotic disease is noted. Unremarkable orbits. Chronic postoperative and inflammatory changes of theparanasal sinuses. A moderate volume right mastoid effusion is similar.No discernible nasopharyngeal mass. Visualized craniofacial soft tissuesare normal. CT CERVICAL SPINE: Diffuse osseous demineralization. Photon starvation artifact caudal tothe C5 level could obscure nondisplaced fractures or other mildinjuries. Straightening and minimal partial reversal of the expected cervicallordosis, likely positional and/or degenerative. No acute fracture deformity or traumatic subluxation is demonstrated. Nodiscernable epidural hematoma. Prevertebral soft tissues are notthickened. Partial interbody fusion C3-4. Multilevel facet ankylosis. Widespreaddiscoligamentous mineralization suggesting a deposition disease. Mild chronic appearing loss of vertebral body heights at C4, C5 and C6. There are multilevel degenerative changes including intervertebral discflattening, dorsal disc osteophyte complex, facet arthropathy anduncovertebral hypertrophy. Changes result in most notable moderatebilateral C3-4 bony neural foraminal narrowing. At least mild spinalcanal stenosis is suspected at C4-5. Calcified atherosclerotic disease. Biapical emphysematous changes.Postoperative changes after right carotid endarterectomy. IMPRESSION IMPRESSION CT HEAD: No intracranial hemorrhage or calvarial fracture. A large right MCA territory infarct and associated sequelae are againnoted. Global brain volume loss and white matter lucencies. Although nonspecific,these changes most likely reflect chronic microvascular ischemic disease,further supported by intracranial atherosclerosis. CT CERVICAL SPINE: No acute fracture deformity or traumatic subluxation. Multilevel degenerative disc disease, as detailed. Courtney Morejon MD RAD CT * CT HEAD/BRAIN WO CONTRAST (07/13/2023 10:14 AM EDT) Anatomical Region Laterality Modality Head Computed Tomogra phy 07/13/2023 10:3 1 AM EDT Impressions 07/13/2023 10:[address] HEAD: No intracranial hemorrhage or calvarial fracture. A large right MCA territory infarct and associated sequelae are again noted. Global brain volume loss and white matter lucencies. Although nonspecific, these changes most likely reflect chronic microvascular ischemic disease, further supported by intracranial atherosclerosis. CT CERVICAL SPINE: No acute fracture deformity or traumatic subluxation. Multilevel degenerative disc disease, as detailed. Narrative 07/13/2023 10:[address] HEAD AND CERVICAL SPINE WITHOUT CONTRAST - 07/13/2023 HISTORY 72 y/o F status post fall with headache and neck pain. TECHNIQUE Axial CT images of the head and cervical spine were obtained without contrast. Coronal and sagittal reconstructions are provided. COMPARISON CT head 01/18/2023. MRI cervical spine 10/04/2009. FINDINGS CT HEAD: No acute intracranial hemorrhage or calvarial fracture. A large right MCA territory infarct and associated sequelae are again noted. There is no recent territorial transcortical infarct. No hydrocephalus, downward herniation, midline shift, mass effect or extra-axial fluid collections. Global brain volume loss is also again noted, with proportionate ventriculosulcal prominence. Partially empty sella is noted, a nonspecific finding. Periventricular and deep white matter lucencies are most commonly associated with chronic microvascular ischemic disease. Calcified intracranial atherosclerotic disease is noted. Unremarkable orbits. Chronic postoperative and inflammatory changes of the paranasal sinuses. A moderate volume right mastoid effusion is similar. No discernible nasopharyngeal mass. Visualized craniofacial soft tissues are normal. CT CERVICAL SPINE: Diffuse osseous demineralization. Photon starvation artifact caudal to the C5 level could obscure nondisplaced fractures or other mild injuries. Straightening and minimal partial reversal of the expected cervical lordosis, likely positional and/or degenerative. No acute fracture deformity or traumatic subluxation is demonstrated. No discernable epidural hematoma. Prevertebral soft tissues are not thickened. Partial interbody fusion C3-4. Multilevel facet ankylosis. Widespread discoligamentous mineralization suggesting a deposition disease. Mild chronic appearing loss of vertebral body heights at C4, C5 and C6. There are multilevel degenerative changes including intervertebral disc flattening, dorsal disc osteophyte complex, facet arthropathy and uncovertebral hypertrophy. Changes result in most notable moderate bilateral C3-4 bony neural foraminal narrowing. At least mild spinal canal stenosis is suspected at C4-5. Calcified atherosclerotic disease. Biapical emphysematous changes. Postoperative changes after right carotid endarterectomy. Procedure Note Rudy Bond MD - 07/13/[address] HEAD AND CERVICAL SPINE WITHOUT CONTRAST - 07/13/2023 HISTORY 72 y/o F status post fall with headache and neck pain. TECHNIQUE Axial CT images of the head and cervical spine were obtained withoutcontrast. Coronal and sagittal reconstructions are provided. COMPARISON CT head 01/18/2023. MRI cervical spine 10/04/2009. FINDINGS CT HEAD: No acute intracranial hemorrhage or calvarial fracture. A large right MCA territory infarct and associated sequelae are againnoted. There is no recent territorial transcortical infarct. No hydrocephalus,downward herniation, midline shift, mass effect or extra-axial fluidcollections. Global brain volume loss is also again noted, with proportionateventriculosulcal prominence. Partially empty sella is noted, a nonspecificfinding. Periventricular and deep white matter lucencies are most commonlyassociated with chronic microvascular ischemic disease. Calcifiedintracranial atherosclerotic disease is noted. Unremarkable orbits. Chronic postoperative and inflammatory changes of theparanasal sinuses. A moderate volume right mastoid effusion is similar.No discernible nasopharyngeal mass. Visualized craniofacial soft tissuesare normal. CT CERVICAL SPINE: Diffuse osseous demineralization. Photon starvation artifact caudal tothe C5 level could obscure nondisplaced fractures or other mildinjuries. Straightening and minimal partial reversal of the expected cervicallordosis, likely positional and/or degenerative. No acute fracture deformity or traumatic subluxation is demonstrated. Nodiscernable epidural hematoma. Prevertebral soft tissues are notthickened. Partial interbody fusion C3-4. Multilevel facet ankylosis. Widespreaddiscoligamentous mineralization suggesting a deposition disease. Mild chronic appearing loss of vertebral body heights at C4, C5 and C6. There are multilevel degenerative changes including intervertebral discflattening, dorsal disc osteophyte complex, facet arthropathy anduncovertebral hypertrophy. Changes result in most notable moderatebilateral C3-4 bony neural foraminal narrowing. At least mild spinalcanal stenosis is suspected at C4-5. Calcified atherosclerotic disease. Biapical emphysematous changes.Postoperative changes after right carotid endarterectomy. IMPRESSION IMPRESSION CT HEAD: No intracranial hemorrhage or calvarial fracture. A large right MCA territory infarct and associated sequelae are againnoted. Global brain volume loss and white matter lucencies. Although nonspecific,these changes most likely reflect chronic microvascular ischemic disease,further supported by intracranial atherosclerosis. CT CERVICAL SPINE: No acute fracture deformity or traumatic subluxation. Multilevel degenerative disc disease, as detailed. Courtney Morejon MD RAD CT * EKG (07/12/2023 10:51 AM EDT) 07/12/2023 10:5 1 AM EDT Narrative Procedure Note Nnamdi Martell DO - 07/12/2023 10:51 AM EDT REASON FOR STUDY: acute chest pain CONCLUSIONS: Normal sinus rhythm Normal ECG When compared with ECG of 18-Jan-2023 00:39, Vent. rate has increased by 32 bpm Minimal criteria for Anterior infarct are no longer Present ST no longer depressed in Anterior leads Nonspecific T wave abnormality no longer evident in Inferior leads Nonspecific T wave abnormality no longer evident in Anterior-lateralleads QT has lengthened Ventricular Rate: 91 Atrial Rate: 91 AK Interval: 144 QRS Duration: 82 QT/QTc: 376/462 ms P-R-T [place]: 65 : 79 : 73 degrees Courtney Morejon MD EKG [facility] * CULTURE, URINE, QUANTITATIVE (07/12/2023 10:38 AM EDT) Culture Growth No significant growth 07/13/2023 4:37 PM EDT [facility] Urine Urine specimen obtained by clean catch procedure / Unknown Non-blood Collection / Unknown 07/12/2023 10:38 AM EDT 07/12/2023 2:11 PM EDT Courtney Morejon MD LAB MICRO - GENERAL ORDERABLES Performing Organization Address City/[facility] Co de Phone Number [facility] [address] [place] [address] * URINALYSIS, POINT OF CARE (ENTER/EDIT) (07/12/2023) Color, Urine Yellow Yellow or Light Yellow Clarity, Urine Clear Clear Glucose, Urine 500 Negative mg/dL Bilirubin, Urine Negative Negative Ketone, Urine Negative Negative mg/dL Specific [place], Urine 1.010 1.003 - 1.030 Blood, Urine Negative Negative pH, Urine 6.0 5.0 - 7.5 units Protein, Urine Negative Negative mg/dL Urobilinogen, Urine 0.2 0.2 - 1.0 mg/dL Nitrite, Urine Negative Negative Esterase, Urine Negative Negative Urine 07/12/2023 Courtney Morejon MD LAB POINT OF CARE TEST ENTER/EDIT ORDERABLES documented in this encounter Visit Diagnoses Diagnosis Closed head injury, initial encounter- Primary Dysuria Neck pain Cervicalgia Atypical chest pain Other chest pain 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) Type II or unspecified type diabetes mellitus with peripheral circulatory disorders, not stated as uncontrolled Pre-ulcerative corn or callous Corns and callosities Tobacco use disorder 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- dominant side ([facility]) COPD, group D, by GOLD 2017 classification ([facility]) Recurrent major depressive disorder, remission status unspecified ([facility]) Generalized anxiety disorder Atherosclerosis of [place] coronary artery of [place] heart without angina pectoris Senile osteoporosis Hyperlipidemia with target LDL less than 70 Other and unspecified hyperlipidemia Atypical chest pain Other chest pain PAD (peripheral artery disease) ([facility])- Primary Peripheral vascular disease, unspecified Ulcer of right foot, limited to breakdown of skin ([facility]) Ischemic rest pain of lower extremity Peripheral vascular disease, unspecified Dependent rubor Unspecified erythematous condition S/P AKA (above knee amputation), left ([facility]) Atherosclerosis of [place] artery of right lower extremity with ulceration of other part of foot ([facility]) documented in this encounter Advance Directives Latest [...] the patient have Health Care Power of Ip Architect? Yes, in chart and reviewed as current [...] patient or by statute hierarchy) Care Teams Shoe Maker Relationship Specialty Start Date End Date Courtney Restrepo MD [address] [place] [address] [place] [address] PCP - General Family Medicine 10/17/19 documented as of this encounter
--- OUTSIDE RECORDS SUMMARY | 2023-08-31 06:24 | External Medical Summary | Summary of Care ---
Author Name Unknown Organization [facility] Address [address] [place] [address] Phone [phone] Care Team Providers Care Parts Sales Counterperson Name Role Phone Courtney Restrepo MD Primary Care Prov ider Reason for Visit * Reason Onset Date Comments Advice 07/15/2023 Encounter Details Date Type Department Care Team (Late st Contact Info) Description 07/15/[address] [phone] Courtney Restrepo MD [address] [place] [address] [place] [address] Advice Allergies Active Allergy Reactions Criticality Noted Date [...] edema Nitroglycerin Hypotension 12/20/2018 Penicillins Nausea/vomiting 05/17/2007 [place] Hives 10/02/2018 Propoxyphene Edema face/lips/tongue,Hiv es 06/26/2009 [...] taking.Informant: At Discharge, Reported on 07/14/2023 OneTouch Delica Lancets 30GIndications:Type 2 diabetes mellitus [...] s:COPD, group C, by GOLD 2017 classification ([facility]) Inhale 1 puff as directed once a day 1 inhalation daily. Rinse mouth after every use. 60 Blister Dosing Unit 5 3 Active NovoLOG FlexPen 100 UNIT/ML Subcutaneous Solution Pen-injector (insulin aspart)Indications: Type 2 diabetes mellitus with hemoglobin A1c goal of less than 8.0% ([facility]) Units as per sliding scale 3 mL 3 3 Active Insulin Glargine Solostar 100 UNIT/ML Subcutaneous Solution Pen-injector (Lantus SoloStar)Indication s:Type 2 diabetes mellitus with hemoglobin A1c goal of less than 8.0% ([facility]) Inject 10 Units under the skin every [...] of less than 8.0% ([facility]) Test glucose once daily E11.9 100 Strip [...] opioid overdose. Seek medical help immediately. [email or web address].[email or web address] 1 mL 3 4 Active Additional Information [...] before bedtime. 60 Capsule 3 4 Active Gabapentin 300 MG Oral Capsule (Neurontin) Take 1 Capsule by mouth in the morning and 1 Capsule before bedtime. 60 Capsule 3 4 07/15/19 24 Discontinu ed(Refill) documented as of this encounter (statuses as of 07/15/2023) Active Problems Problem Noted Date Diagnosed Date Ischemic rest pain of lower extremity 07/14/2023 Ulcer of right foot, limited to breakdown of ski n 07/14/2023 Dependent rubor 07/14/2023 Atherosclerosis of [place] artery of extremity Pre-ulcerative corn or callous [...] rinse after steroid. Test performed by [facility] [employer] CPFT Old [place] (myocardial infarction) 02/21/2019 Bilateral [...] osteoporosis 07/03/2018 Reactive depression 11/17/2017 Atherosclerosis of [place] co ronary artery of [place] heart without angina pectoris 07/22/2015 Overview: Single [...] rinse after steroid. Test performed by [facility]iana [employer] [facility] GENERAL OSTEOARTHROSIS BMI 32.0-32.9,adult Tobacco use [...] ISCHEMIC HRT DIS NOS Coronary atherosclerosis of [place] coronary artery 11/24/2016 Tobacco abuse 11/17/2017 documented [...] encounter Miscellaneous Notes * Telephone Encounter - Adriana Pinto LPN - 07/15/2023 2:50 PM EDT Called pt spoke to her caregiver. She verbalized understanding. She was requesting gabapentin she may have mixed up the directions. * Telephone Encounter - Courtney Restrepo MD - 07/15/2023 11:55 AM EDT Gabapentin refilled. I sent it to [facility] [employer] [facility]. Please confirm this is what she wanted. * Telephone Encounter - Dee Martinez LPN - 07/15/2023 11:12 AM EDT Patient calling in stating that she needs a new script for her Gapapentin. She stated that she is suppose to have the medication every 6 hours and she only has 3 capsules left. Please advise documented in this encounter Plan of Treatment Upcoming Encounters Date Type Department Care Team (Latest Contact Info) Description 07/18/2023 7:15 AM EDT Hospital Encounter OR [facility], OPERATING ROOM [facility], KALIE PAVALBER [address] [place] [address] Nnamdi King MD [address] [place], [place] [id number] 07/18/2023 7:15 AM EDT - 07/18/2023 9:10 AM EDT Surgery OR [facility], OPERATING ROOM [facility], KALIE JIMENEZILIDANNI [address] [place] [phone] Nnamdi King MD [address] [place], [place] [phone] IMAGING SUPERVISION & INTERPRETATION EXTREMITY UNILATERAL 08/01/2023 10:00 AM EDT Imaging Vascular Lab, [address] [place] [address] 08/01/2023 11:00 AM EDT Imaging Vascular Lab, [address] [place] [address] 08/01/2023 2:30 PM EDT Office Visit Pharmacy, [address] [place] [address] [place] [address] 08/09/2023 9:40 AM EDT Office Visit Family Medicine [address] [place] [phone] Courtney Restrepo MD [address] [place] [address] [place] [address] 08/10/2023 11:30 AM EDT Office Visit Vascular Surgery, [address] [place] [address] Nnamdi King MD [address] [place] [address] 09/27/2023 9:40 AM EDT Office Visit Family [address] [phone] Courtney Restrepo MD [address] [place] [address] [place] [address] 10/10/2023 4:00 PM EDT Office Visit Nephrology, [facility] [address] [facility] [place] [address] Charla Potter MD [address] [place] [address] 10/12/2023 11:00 AM EDT Office Visit Cardiology, [facility] [address] [place] [address] Frantz Herrera MD [address] [place] [address] 12/07/2023 9:20 AM EDT Office Visit [address] [phone] Courtney Restrepo MD [address] [place] [address] [place] [address] Scheduled Procedures Name Priority Associated Diagnoses Date/Ti me IMAGING SUPERVISION & INTERP RETATION EXTREMITY UNILATERAL Atherosclerosis of [place] artery of right lower extremity with ulceration of other part of foot ([facility]) 07/18/2023 7:15 AM EDT FEM/POP ARTERY REVASC W/ STENT+ANGIOPLASTY Atherosclerosis of [place] artery of right lower extremity with ulceration of other part of foot ([facility]) 07/18/2023 7:15 AM EDT ESOPHAGOGASTRODUODENOSCOPY ( EGD), FLEXIBLE, TRANSORAL, DIAGNOSTIC Recall Pendleton's esophagus Health Maintenance Due Date Last Done Comments DISCUSS TOBACCO CESSATION (REFER TO SMARTSET #5353) 1950 Cologuard 1994 Fecal Occult Blood Test [...] 05/20/2023, 01/0 08/2021, 05/12/2017, Additional history exists O2 ASSESSMENT COMPLETED IN PAST YEAR FOR COPD 06/06/2024 06/07/2023 GFR 06/14/2024 06/15/2023, 04/0 04/2023, 06/13/2023, Additional history exists DTaP,Tdap,and Td Vaccines (3 - Td or Tdap) 07/15/2031 07/14/2021 (Declined), 07/27/2010 Pneumococcal Vaccine: 65+ Years Completed 10/27/2015, 08/08/2014, 05/30/2008 RETIRED - COLONOSCOPY-EVERY 5 YRS AGES 18-100 Discontinued 09/27/2018, 09/27/2018, 07/13/2018, Additional history exists VITAMIN D LEVEL ONCE IN A LIFETIME-USE SMARTSET# [id number] Completed 10/16/2021, 12/27/2018 Alpha-1 Antitrypsin Discontinued GARDASIL-HPV [...] this encounter Medical Devices Implanted Type Area Home Inspector Device Identifier Shelf Expiration Date Model / Serial / Lot Stent Graft Icast [id number] - [id number] - [id number] Implanted:Qty : 1 on 04/14/2022 by Nnamdi King MD at OR [facility] N/A: Mesenteric Artery GETINGE : MAQUET [id number] 02/21/2023 [id number] / [id number] / [id number] Description:implanted in SMA Stent Howie 3.0x15 Rx - [id number] Implanted:Qty : 1 on 11/12/2022 by Patrice Jose MD at CARDIAC LABS [facility] [employer] : VASCULAR [id number] 11/28/2023 [id number] / / [id number] documented as of this encounter Advance Directives [...] the patient have Health Care Power of Sales Support Technician? Yes, in chart and reviewed as [...] patient or by statute hierarchy) Care Teams Parts Sales Counterperson Relationship Specialty Start Date End Date Courtney Restrepo MD [address] [place] [address] [place] [address] PCP - General Family Medicine 10/17/19 documented as of this encounter
--- OUTSIDE RECORDS SUMMARY | 2023-08-31 06:24 | External Medical Summary | Summary of Care ---
Author Name Unknown Organization [facility] Address [address] [place] [address] Phone [phone] Care Team Providers Care Crtt Name Role Phone Courtney Restrepo MD Primary Care Prov ider Reason for Visit * Reason Onset Date Comments Medication Refill 07/18/2023 Encounter Details Date Type Department Care Team (Late st Contact Info) Description 07/18/2023 Refill Family Medicine [address] [phone] [address] [place] [address] Allergies Active Allergy Reactions Criticality Noted Date [...] edema Nitroglycerin Hypotension 12/20/2018 Penicillins Nausea/vomiting 05/17/2007 [place]da Hives 10/02/2018 Propoxyphene Edema face/lips/tongue,Hiv es 06/26/2009 documented as of this encounter (statuses as of 07/18/2023) Medications Medication Sig Dispensed Refills Start Date End Date Status oxyCODONE HCl 5 MG Oral Tablet (Oxy [...] shortness of breath/wheezing 18 g 3 3 Suspended Additional Information Patient taking differently: 2 Puff Q6H PRN, Wheezing, (No instructions reported), Informant: At Discharge, Patient, Reported on 07/18/2023 Loratadine 10 MG Oral Tablet (Claritin) Take 1 Tablet by mouth in the morning. 90 Tablet 3 3 Suspended Additional Information busPIRone HCl 15 MG Oral Tablet (Buspar)Indication s:Anxiety TAKE ONE TABLET TWICE DAILY 180 Tablet 1 3 Suspended Additional Information Clopidogrel Bisulfate 75 MG Oral Tablet (pLAVix)Indication s:Asymptomatic bilateral carotid artery stenosis Take 1 Tablet (75 mg) in the morning by mouth. 90 Tablet 2 3 Suspended Additional Information DULoxetine HCl 30 MG Oral Capsule Delayed Release Particles (Cymbalta)Indicati ons:Chronic midline thoracic back pain,Generalized anxiety disorder Take 1 Capsule by mouth in the morning and 1 Capsule before bedtime. 180 Capsule 2 3 Suspended Additional Information Ipratropium-Albute rol 0.5-2.5 (3) MG/3ML Inhalation Solution (Duoneb)Indication s:COPD exacerbation (HCC) Inhale 3 mL via nebulizer every 4 hours as needed for Shortness of Breath. 100 mL 3 3 Suspended Additional Information Patient not taking.Informant: At Discharge, Patient, Reported on 07/18/2023 Arun Brown 30GIndications:Typ e 2 diabetes mellitus with hemoglobin A1c goal of less than 8.0% ([facility]) Use to test glucose daily. E11.9 100 Each 5 3 Suspended Additional Information OneTouch Verio w/Device KitIndications:Typ e 2 diabetes mellitus with hemoglobin A1c goal of less than 8.0% (HCC) Use to test glucose daily. E11.9 1 Kit 0 3 Suspended Additional Information Trelegy Ellipta 100-62.5-25 MCG/ACT Aerosol Powder Breath ActivatedIndicatio ns:COPD, group C, by GOLD 2017 classification ([facility]) Inhale 1 puff as directed once a day 1 inhalation daily. Rinse mouth after every use. 60 Blister Dosing Unit 5 3 Suspended Additional Information NovoLOG FlexPen 100 UNIT/ML Subcutaneous Solution Pen-injector (insulin aspart)Indications :Type 2 diabetes mellitus with hemoglobin A1c goal of less than 8.0% ([facility]) Units as per sliding scale 3 mL 3 3 Suspended Additional Information Insulin Glargine Solostar 100 UNIT/ML Subcutaneous Solution Pen-injector (Lantus SoloStar)Indicatio ns:Type 2 diabetes mellitus with hemoglobin A1c goal of less than 8.0% ([facility]) Inject 10 Units under the skin every night at bedtime. Lantus SoloStar Brand Necessary 3 mL 3 3 Suspended Additional Information Multivitamin Adult (Minerals) Oral Tablet Take by mouth. 0 Suspended Vitamin D 125 MCG (5000 UT) Oral Capsule Take 1 Capful by mouth in the morning and 1 Capful before bedtime. 0 Suspended Align Extra Strength Oral Capsule Take 1 Capsule by mouth every evening. 0 Suspended OneTouch Verio In Vitro Strip (Glucose Blood)Indications: Type 2 diabetes mellitus with hemoglobin A1c goal of less than 8.0% ([facility]) Test glucose once daily E11.9 100 Strip 5 3 Suspended Additional Information Calcium Carbonate 600 MG Oral Tablet (Calcium 600) Take 1 Tablet by mouth 2 times a day with morning and evening meals. (Not TUMS) 0 Suspended Lidocaine 4 % External Patch (Aspercreme) Place 1 Patch over 12 hours topically on the skin daily. 30 Patch 0 4 Suspended Additional Information Patient not taking.Informant: Patient, Reported on 07/18/2023 Ondansetron HCl 4 MG Oral Tablet (Zofran)Indication s:Nausea Take 1 Tablet by mouth every 8 hours as needed for Nausea. 20 Tablet 0 4 Suspended Additional Information Patient not taking.Informant: Patient, Reported on 07/18/2023 Sucralfate 1 GM Oral Tablet (Carafate) Take 1 Tablet by mouth 4 times a day before meals and at bedtime. 120 Tablet 0 4 07/18/19 24 Discontinued( Refill) Polyethylene Glycol 3350 17 GM/SCOOP Oral Powder (MiraLax)Indicatio ns:Other constipation Dissolve one heaping tablespoon in 8 ounces of water or juice - one dose per day as needed for severe constipation 225 g 2 4 Suspended Additional Information Aspirin 81 MG Oral Tablet Chewable Take 1 Tablet by mouth in the morning. 30 Tablet 1 4 Suspended Additional Information Metoprolol Succinate ER 25 MG Oral Tablet Extended Release 24 Hour (toPROL XL) Take 0.5 Tablets by mouth in the morning. 30 Tablet 0 4 Suspended Additional Information Patient not taking.Informant: Patient, Reported on 07/18/2023 Naloxone HCl 0.4 MG/ML Injection Solution (Narcan) Inject 1mL into a large muscle for suspected opioid overdose. Seek medical help immediately. [email or web address] 1 mL 3 4 Suspended Additional Information Patient not taking.Informant: Patient, Reported on 07/18/2023 Pantoprazole Sodium 40 MG Oral Tablet Delayed Release (Protonix)Indicati ons:Iron deficiency anemia due to chronic blood loss,Chronic superficial gastritis with bleeding TAKE 1 TABLET BY MOUTH 30 MINUTES BEFORE FIRST MEAL AND 1 TABLET BEFORE BEDTIME DO NOT CRUSH, SPLIT, OR CHEW 180 Tablet 3 4 Suspended Additional Information Furosemide 40 MG Oral Tablet (Lasix) Take 1 Tablet by mouth in the morning. Patient still taking, even though was told not to - refuses to stop it.. 0 Suspended Sennosides-Docusat e Sodium 8.6-50 MG Oral Tablet (Senokot-S) Take 2 Tablets by mouth in the morning and 2 Tablets before bedtime. 60 Tablet 1 4 Suspended Additional Information Baclofen 5 MG Oral Tablet (Lioresal) Take 1 Tablet by mouth in the morning and 1 Tablet at noon and 1 Tablet before bedtime. As needed for muscle spasm. 30 Tablet 0 4 Suspended Additional Information Gabapentin 300 MG Oral Capsule (Neurontin) Take 1 Capsule by mouth in the morning and 1 Capsule before bedtime. 60 Capsule 3 4 Suspended Additional Information documented as of this encounter (statuses as of 07/18/2023) Active Problems Problem Noted Date Diagnosed Date Ischemic rest pain of lower extremity 07/14/2023 Ulcer of right foot, limited to breakdown of ski n 07/14/2023 Dependent rubor 07/14/2023 Atherosclerosis of [place] artery of extremity Pre-ulcerative corn or callous [...] rinse after steroid. Test performed by Bibiana [employer] CPFT Old VT (myocardial infarction) 02/21/2019 Bilateral [...] osteoporosis 07/03/2018 Reactive depression 11/17/2017 Atherosclerosis of [place] co ronary artery of [place] heart without angina pectoris 07/22/2015 Overview: Single [...] rinse after steroid. Test performed by Bibiana [employer] [facility] GENERAL OSTEOARTHROSIS BMI 32.0-32.9,adult Tobacco use disorder Hyperlipidemia with target LDL less than 70 Overview: ICD-10 update of inactive term RSD upper limb Overview: left arm Generalized anxiety disorder documented as of this encounter (statuses as of 07/18/2023) Resolved Problems Problem Noted Date Diagnosed Date [...] ISCHEMIC HRT DIS NOS Coronary atherosclerosis of [place] coronary artery 11/24/2016 Tobacco abuse 11/17/2017 documented as of this encounter (statuses as of 07/18/2023) Immunizations Name Administration Dates Next Due COVID-19 [...] Telephone Encounter - Courtney Restrepo MD - 07/18/2023 12:12 PM EDTSigned Prescriptions: Disp Refills Sucralfate 1 GM Oral Tablet (Carafate) 120 Ta*5 Sig: Take 1 Tablet by mouth 4 times a day before meals and at bedtime. Authorizing Provider: COURTNEY RESTREPO * Telephone Encounter - Dunia Nieves RN - 07/18/2023 11:42 AM EDTPending Prescriptions: Disp Refills Sucralfate 1 GM Oral Tablet (Carafate) 120 Ta*5 Sig: Take 1 Tablet by mouth 4 times a day before meals and at bedtime. * Telephone Encounter - Eliot Sanaz JACOBY Mcfarlane - 07/18/2023 10:51 AM EDT Did you pend patient's preferred pharmacy and medication before forwarding?yes Pharmacy: [facility] [address] Pending Prescriptions: Disp Refills Sucralfate 1 GM Oral Tablet (Carafate) 120 Ta*0 Sig: Take 1 Tablet by mouth 4 times a day before meals and at bedtime. Last Visit: 07/12/2023 (in office), 11/29/2022 (telemedicine) Next Visit: 08/09/2023 If no future appointments scheduled, and last appointment is greater than a year ago, please schedule patient for a follow-up appointment Last date the medication was ordered: [id number] Is this request for a controlled substance?No Urine Drug Screen: Results for orders placed or performed in visit on 11/17/21 PAIN MANAGEMENT DRUG PANEL, URINE W/ INTERPRETATION Result Value Compliance Interpretation Based on the medication information provided: The positive hydrocodone screening result is CONSISTENT with hydrocodone use. Confirmatory testing is available upon request. Amphetamines Screen, U Negative Benzodiazepines Screen, U Negative Cannabinoids Screen, U Negative Cocaine Metabolite Screen, U Negative Fentanyl Screen, U Negative Hydrocodone Screen, U Positive (A) Methadone Metabolite Screen, U Negative Morphine/Codeine Screen, U Negative Oxycodone Screen, U Negative Valid Interpretation Normal Creatinine, U 59 Narrative Cutoff Concentrations: Drug Level Amphetamines 500 ng/mL Benzodiazepines 100 ng/mL Cannabinoids 50 ng/mL Cocaine Metabolite 150 ng/mL Fentanyl 1 ng/mL Hydrocodone / Hydromorphone 300 ng/mL Methadone Metabolite 100 ng/mL Morphine / Codeine 300 ng/mL Oxycodone / Oxymorphone 100 ng/mL Screening results are presumptive and can only be used for medical purposes. Confirmatory testing is available upon request. *Note: Due to a large number of results and/or encounters for the requested time period, some results have not been displayed. A complete set of results can be found in Results Review. Patient Phone Numbers Labs: Lab Results Component Value Date/Time CREAT 0.7 06/15/2023 07:20 AM CREAT 0.94 05/11/2023 12:00 AM CREAT 0.8 04/09/2020 01:42 PM POTASSIUM 4.7 06/15/2023 07:20 AM POTASSIUM 4.4 05/11/2023 12:00 AM POTASSIUM 4.3 04/09/2020 01:42 PM TSH 1.51 12/28/2022 11:45 AM TSH 0.63 08/08/2014 02:19 PM LDLCALC 84 12/10/2022 01:18 PM LDLCALC 110 04/09/2020 01:42 PM LDLDIRECT 74 06/03/2021 02:45 PM LDLDIRECT NOT APPLICABLE 04/09/2020 01:42 PM LDLDIRECT 75 06/25/2010 01:30 PM ALT 16 06/08/2023 05:36 AM ALT 18 01/01/2020 01:27 PM HGBA1C 9.1 (H) 06/08/2023 05:36 AM HGBA1C 6.6 (H) 04/09/2020 01:42 PM documented in this encounter Plan of Treatment Upcoming Encounters Date Type Department Care Team (Late st Contact Info) Description 08/01/2023 10:00 AM EDT Imaging Vascular Lab, [facility] 2nd [facility] [address] [facility] [place] [address] 08/01/2023 11:00 AM EDT Imaging Vascular Lab, [facility] 2nd [facility] [address] [facility] [place] [address] 08/01/2023 2:30 PM EDT Office Visit Pharmacy, [address] [place] [address] [place] [address] 08/09/2023 9:40 AM EDT Office Visit [address] [phone] Courtney Restrepo MD [address] [place] [address] [place] [address] 08/10/2023 11:30 AM EDT Office Visit Vascular Surgery, [facility] [address] [place] [place] [address] Nnamdi King MD [address] [place], [place] [id number] 09/27/2023 9:40 AM EDT Office Visit [address] [phone] Courtney Restrepo MD [address] [place] [address] [place] [address] 10/10/2023 4:00 PM EDT Office Visit Nephrology, [address] [place] [address] Charla Potter MD [address] [place] [id number] 10/12/2023 11:00 AM EDT Office Visit Card[facility], [facility] [address] [facility] [address] Frantz Herrera MD [address], [place] [id number] 12/07/2023 9:20 AM EDT Office Visit [address] [phone] Courtney Restrepo MD [address] [place] [address] [place] [address] Scheduled Procedures Name Priority Associated Diagnoses Date/Ti me IMAGING SUPERVISION & INTERP RETATION EXTREMITY UNILATERAL 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 (HCC) 07/18/2023 6:30 AM EDT FEM/POP ARTERY REVASC W/ STENT+ANGIOPLASTY 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 (HCC) 07/18/2023 6:30 AM EDT ESOPHAGOGASTRODUODENOSCOPY ( EGD), FLEXIBLE, TRANSORAL, DIAGNOSTIC Recall Pendleton's esophagus Health Maintenance Due Date Last Done Comments DISCUSS TOBACCO CESSATION (REFER TO SMARTSET #5619) 1950 Cologuard 1994 Fecal Occult Blood Test [...] D LEVEL ONCE IN A LIFETIME-USE SMARTSET# 35576 Completed 10/16/2021, 12/27/2018 Alpha-1 Antitrypsin Discontinued GARDASIL-HPV [...] this encounter Medical Devices Implanted Type Area Rolled Glass Crosscutter Device Identifier Shelf Expiration Date Model / Serial / Lot Stent Graft Icast [id number] - [id number] - [id number] Implanted:Qty : 1 on 04/14/2022 by Nnamdi King MD at OR [facility] [place] N/A: Mesenteric Artery GETINGE : VITOR [id number] 02/21/2023 [id number] / [id number] / [id number] Description:implanted in SMA Stent [place] 3.0x15 Rx - [id number] Implanted:Qty : 1 on 11/12/2022 by Patrice Jose MD at CARDIAC LABS [facility] [place] MED[employer]ONIC : VASCULAR [id number] 11/28/2023 [id number] / / [id number] Stent R2p Misago 6fr [id number] - [id number] Implanted:Qty : 1 on 07/18/2023 by Nnamdi King MD at OR [facility] [place] Right: [facility] MEDICAL : CARDIO S [id number] 09/11/2023 [id number] / / [id number] documented as of this encounter Advance Directives [...] the patient have Health Care Power of [place] Supervisor? Yes, in chart and reviewed as current [...] patient or by statute hierarchy) Care Teams Crtt Relationship Specialty Start Date End Date Courtney Restrepo MD [address] [place] [address] [place] [address] PCP - General Family Medicine 10/17/19 documented as of this encounter
--- OUTSIDE RECORDS SUMMARY | 2023-08-31 06:24 | External Medical Summary ---
Author Name Unknown Address Unknown Organization : Laboratory Report Ordering Provider Test Date Status CHIKIS CASTILLO 07/18/2023 06:21:17 Final Observation Date Value Abnormality Reference (Units ) Status Glucose Point of Care 07/18/2023 06:21:17 113 70-120 (mg/dL) Final Performing Location
--- OUTSIDE RECORDS SUMMARY | 2023-08-31 06:24 | External Medical Summary | Summary of Care ---
Author Name Unknown Organization [facility] Address [address] [place] [address] Phone [phone] Care Team Providers Care Chief Fishery Division Name Role Phone Courtney Restrepo MD Primary Care Prov ider Reason for Visit * Auth/Cert Specialty Diagnoses / Procedures Referred By Rosalia chandra Referred To Contact Diagnoses Atherosclerosis of deering artery of right lower extremity with ulceration of other part of foot (HCC) Atherosclerosis of deering artery of right lower extremity with ulceration of other part of foot (HCC) [I70.235] Procedures IR ARTERIOGRAM EXTREMITY UNILATERAL FEM/POP ARTERY REVASC W/ STENT+ANGIOPLASTY IMAGING SUPERVISION & INTERPRETATION EXTREMITY UNILATERAL FEM/POP ARTERY REVASC W/ STENT+ANGIOPLASTY Nnamdi King MD [address] [place] [address] Or [facility] [place] [facility] [address] [place] [address] Referral ID Status Reason Start Date Expiration Date Visits Re quested Visits Authorized [id number] Encounter Details Date Type Department Care Team (Latest Contact Info) Description 07/18/2023 5:42 AM EDT - 07/18/2023 12:55 PM EDT Hospital Encounter [facility] OPER[place] [facility] [place] [address] [place] [address] Nnamdi King MD [address] [place] [address] Discharge Disposition: Home - Self Care Allergies Active Allergy Reactions Criticality Noted Date [...] of breath/wheezing 18 g 3 06/05/19 23 Active Additional Information Patient taking differently: 2 Puff Q6H PRN, Wheezing, (No instructions reported), Informant: At Discharge, Patient, Reported on 07/18/2023 Loratadine 10 MG Oral Tablet (Claritin) Take 1 Tablet by mouth in the morning. 90 Tablet 3 06/05/19 23 Active busPIRone HCl 15 MG Oral Tablet (Buspar)Indication [...] needed for Shortness of Breath. 100 mL 11/30/19 Active Additional Information Patient not taking.Informant: At Discharge, Patient, Reported on 07/18/2023 [employer] Deldwayne Lancets 30GIndications:Typ e 2 diabetes mellitus with hemoglobin A1c goal of less than 8.0% (HCC) Use to test glucose daily. E11.9 100 Each 11/30/19 Active OneTouch Verio w/Device KitIndications:Typ e 2 diabetes mellitus with hemoglobin A1c goal of less than 8.0% ([facility]) Use to test glucose daily. E11.9 1 Kit 0 11/30/19 Active Trelegy Ellipta 100-62.5-25 MCG/ACT Aerosol Powder Breath ActivatedIndicatio ns:COPD, group C, by GOLD 2017 classification ([facility]) Inhale 1 puff as directed once a day 1 inhalation daily. Rinse mouth after every use. 60 Blister Dosing Unit 11/30/19 Active NovoLOG FlexPen 100 UNIT/ML Subcutaneous Solution Pen-injector (insulin aspart)Indications :Type 2 diabetes mellitus with hemoglobin A1c goal of less than 8.0% ([facility]) Units as per sliding scale 3 mL 02/05/20 Active Insulin Glargine Solostar 100 UNIT/ML Subcutaneous Solution Pen-injector (Lantus SoloStar)Indicatio ns:Type 2 diabetes mellitus with hemoglobin A1c goal of less than 8.0% (HCC) Inject 10 Units under the skin every night at bedtime. Lantus SoloStar Brand Necessary 3 mL 02/05/20 Active Multivitamin Adult (Minerals) Oral Tablet Take [...] Test glucose once daily E11.9 100 Strip 02/23/20 Active Calcium Carbonate 600 MG Oral Tablet [...] opioid overdose. Seek medical help immediately. [email or web address] 1 mL 3 06/14/19 24 Active Additional [...] n 07/14/2023 Dependent rubor 07/14/2023 Atherosclerosis of deering artery of extremity Pre-ulcerative corn or callous [...] rinse after steroid. Test performed by Bibiana RESEARCH DEVELOPMENT DIRECTOR CPFT Old [place] (myocardial infarction) 02/21/2019 Bilateral carotid artery stenosis [...] osteoporosis 07/03/2018 Reactive depression 11/17/2017 Atherosclerosis of deering co ronary artery of deering heart without angina pectoris 07/22/2015 Overview: Single [...] rinse after steroid. Test performed by Bibiana RESEARCH DEVELOPMENT DIRECTOR CPFT GENERAL OSTEOARTHROSIS BMI 32.0-32.9,adult Tobacco use [...] ISCHEMIC HRT DIS NOS Coronary atherosclerosis of deering coronary artery 11/24/2016 Tobacco abuse 11/17/2017 documented [...] Sign Reading Time Taken Comments Blood Pressure 84/53 07/18/2023 12:00 PM EDT Pulse 89 07/18/2023 12:00 PM EDT Temperature 36 C (96.8 F) 07/18/2023 10:43 AM EDT Respiratory Rate 23 07/18/2023 12:00 PM EDT Oxygen Saturation 100% 07/18/2023 12:30 PM EDT Inhaled Oxygen Concentration - - Weight - - Height 157.5 cm (5' 2") 07/18/2023 5:45 AM EDT Body Mass Index - - documented in [...] No 06/07/2023 documented as of this encounter Discharge Summaries * Jaquan Nagy MD - 07/18/2023 10:49 AM EDT [address] [address] OUTPATIENT SURGERY DISCHARGE SUMMARY NOTE Name: Carlotta Khan Location: [facility] Date: 07/18/2023 Time: 10:49 AM Date and Time of Procedure: 07/18/2023 at 10:49 AM Surgery Date: 07/18/2023 Procedure(s): ANGIOGRAPHY EXTREMITY BILATERAL FEM/POP ARTERY REVASC W/ STENT+ANGIOPLASTY (Right) FEM/POP ARTERY REVASC W/ANGIOPLASTY (Left) Surgeon: Nnamdi King MD Discharge Diagnosis: Peripheral arterial disease . Jaquan Nagy MD Vascular Surgery Fellow documented in this encounter Discharge Instructions * Discharge Instr - AVS* Jaquan Nagy MD - 07/18/2023 10:49 AM EDT You underwent endovascular lower extremity revascularization. Should you experience any increased pain, drainage/redness, fever greater than 101 degrees, or increased swelling in your groin or arm incisions, please call [phone] to discuss with an advanced practitioner or physician public relations writer. If you leave with any bandages, remove those 48 hours following your surgery. Do not drive a car until you are walking normally and pain free (usually 5 to 7 days) and have stopped taking narcotic pain medicine. If you leave with any bandages, remove those tomorrow. You may take a shower and wash over the incision with soap and water. Do not soak the incision (i.e. take a bath) until the incision is completely healed. Any invasive procedure, such as dental work, endoscopy, colonoscopy, cystoscopy, etc. should be avoided in the first 3 months following surgery. If an urgent procedure is required, you should receive prophylactic antibiotics to prevent arterialgraft infection. The [place] [employer] endocarditis prophylaxis regimen may be used for this purpose. documented in this encounter H&P Notes * Nnamdi King MD - 07/18/2023 5:52 AM EDT HISTORY & PHYSICAL INTERVAL NOTE - Vascular Surgery [facility] [place] [address] History and Physical Update: Name: Carlotta Khan Location: [place] [facility] [place] Date: 07/18/2023 Time: 6:06 AM DATE OF HISTORY AND PHYSICAL: 07/14/23 Patient Vitals for the past 24 hrs: BP Temp Temp src Pulse Resp SpO2 Height 07/18/23 0615 123/69 36 C (96.8 F) Tympanic 95 19 96 % -- 07/18/23 0545 -- -- -- -- -- -- 1.575 m (5' 2") Heart Exam: no murmurs or gallops Lung Exam: clear to auscultation bilaterally Other Pertinent Physical Exam: PULSE SCALE: Popliteal Right: 0 Left: + Doppler signal Dorsalis Pedis Right: +Doppler signal Left: BKA Posterior Tibial Right:+Doppler signal Left: BKA PULSE SCALE: 4=Aneurysmal; 3=Normal; 2=Diminished; 1=Barely Palpable; 0=Absent I have reviewed the H&P previously performed and examined the patient today. There are no new findings noted. ANTICOAGULANTS: Does the patient take Coumadin (warfarin)? no Does the patient take any other anticoagulants/antiplatelets? Yes. ASA 81 last dose: 07/17/23. Plavixlast dose: 07/17/23 * Nnamdi King MD - 07/14/2023 2:55 PM EDT Images from the original note were not included. Date of Service: 07/14/2023 11:38 AM Carlotta Khan is a 72 year old female. 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 King secondary to severe PAD & new ulceration to her left 3rd toe. HPI: Patient is a dedicated smoker with diffuse vascular disease. Pt had stubbed her L 3rd toe in 03/2023 and developed an ulceration which has failed to heal. Has been seen by local Type Bar And Segment Assembler with instructions to follow up with Vascular Surgery as local wound care was not leading to healing of her wound. No reported fever or localized s/s of infection. Toe is painful and will awaken her at night despite use of Vicodin. CAROTID DISEASE: S/P right CEA in [id number] in [place]. 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 Her symptoms were left mouth weakness causing her drool, and left arm and leg weakness. During the workup for her CVA, an 80-99% right carotid restenosis was noted. S/P redo right CEA by Dr. Bynum 08/19/2008. She has left sided residual UE weakness with hand contracture . Patient denies recent TIA, recent stroke, and recent amaurosis fugax. Carotid duplex exam at [facility] identified the right internal carotid with ~50% (heavily calcified) and the left internal carotid with 70-99% stenosis. MESENTERIC ARTERIAL DISEASE: Reports post prandial abdominal pain since 2015. PmHx including GERD, ulcers, GI bleed. She has required transfusions for GI bleed in the past. No cause was found for the GI bleed despiteupper and lower endoscopy. 01/03/20 CTA suggested SMA thrombus, prompting GI to refer her to Vascular Surgery. S/P SMA stent 04/14/[address] King for chronic mesenteric ischemia Currently with no post prandial pain or wt loss. PERIPHERAL VASCULAR DISEASE: Ms. Khan is s/p L to R fem-fem bypass in [place] in ~2004 following a cardiac cath that caused herright leg to "go ." On 11/06/2018 she had a thrombectomy of the fem-fem bypass and patch angioplasty of the distal anastamosis (right groin) by Dr. Jara at [facility], performed for ischemic right leg. S/P left GRADUATE ENGINEER PIGMENT PUSHER 04/14/[address] King during time of SMA stent placement S/P angioplasties of SUZANNE and RSFA/Pop Artery by Dr. King on 09/23/2022 for critical limb ischemiawith gangrene right foot with left to right fem-fem bypass graft with stenosis in left external iliac artery Patient [place] [facility] with sepsis/right 3rd [...] S/P PCI/stent to left main/LAD on 11/12/22 LEFT AXILLARY ARTERY OCCLUSION: She had several studies in the past that suggest left axillary occlusion. No discoloration, tissue breakdown [...] 1 Capsule before bedtime. 180 Capsule 2 Loop88uch Delica Lancets 30G Use to test glucose [...] Take 1 Capsule by mouth every evening. [employer] SystemsTouch Verio In Vitro Strip (Glucose Blood) Test [...] suspected opioid overdose. Seek medical help immediately. [email or web address].[email or web address] (Patient not taking: Reported on 06/22/2023) 1 [...] and periorbital edema Nitroglycerin Hypotension Penicillins Nausea/vomiting [place] Hives Propoxyphene Edema face/lips/tongue and Hives Patient [...] than 8.0% ([facility]) E11.9 Controlled substance agreement signed Z79.899 Generalized anxiety disorder F41.1 Atherosclerosis of deering coronary artery of deering heart without angina pectoris I25.10 Reactive depression F32.9 Senile osteoporosis M81.0 PVD (peripheral vascular disease) ([facility]) I73.9 Iron deficiency anemia due to chronic blood loss D50.0 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 K22.70 Chronic superficial gastritis with bleeding K29.31 Gastrointestinal hemorrhage with melena K92.1 Lung nodules R91.8 Moderate mitral regurgitation I34.0 Old KS (myocardial infarction) I25.2 Bilateral carotid artery stenosis I65.23 DM type 2 with diabetic peripheral neuropathy ([facility]) E11.42 Right hand tendonitis M77.8 Generalized arthritis M19.90 Hand arthritis M19.049 Centrilobular emphysema ([facility]) J43.2 Polyneuropathy in other diseases classified elsewhere ([facility]) G63 Superior mesenteric artery stenosis ([facility]) 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 ([facility]) I77.1 Major depressive disorder, recurrent, unspecified ([facility]) F33.9 Non-proliferative diabetic retinopathy, both eyes ([facility]) E11.3293 Recurrent major depressive disorder, in partial remission ([facility]) F33.41 Mesenteric ischemia, chronic ([facility]) K55.1 COPD, group D, by GOLD 2017 classification ([facility]) J44.9 Chronic ischemic heart disease I25.9 Advanced directives, counseling/discussion Z71.89 Type 2 diabetes mellitus with peripheral artery disease ([facility]) E11.51 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- dominant side ([facility]) I69.354 Wound drainage T14.8XXA 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 History of cardiac arrest Z86.74 Shock ([facility]) R57.9 Lactic acidosis E87.20 Transaminitis R74.01 Encephalopathy acute G93.40 Pathological fracture of vertebra due to osteoporosis with routine healing, subsequent encounter M80.08XD S/P AKA (above knee amputation), left ([facility]) Z89.612 Status post below-knee amputation of left lower extremity ([facility]) Z89.512 Pre-ulcerative corn or callous L84 Past Medical History: Diagnosis Date Asthma, allergic Benign neoplasm of colon 01/2009 3 mm tubular adenoma in sigmoid, f/u colonoscopy in 5 yrs BMI 32.0-32.9,adult Calculus of kidney spontanteous passage Cardiac arrest ([facility]) 11/04/2022 history Carotid artery stenosis, asymptomatic left Carotid Stenosis, infarct w/in 8 wks 08/20/2008 Cellulitis of right foot 07/02/2019 [facility] for severe pain, cellulitis right foot Cerebrovascular Dz, 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 Pt with hx of embolic stroke. L hemiplegia Chronic ischemic heart disease Contusion of hand, right 05/21/2016 Coronary atherosclerosis of deering coronary artery DM type 2, goal A1c below 7 1994 after being on steroids for a while Fracture of three ribs on left side 02/25/2015 left 3,4,5 Generalized anxiety disorder Generalized osteoarthritis Hidradenitis had skin grafts under both arms by Dr Burrell Hyperlipidemia LDL goal < 70 Hypoxia 02/28/2015 [place], related to hypoventilation from rib fx pain Intracerebral hemorrhage (HCC) 07/03/2008 Need for hepatitis C screening test 08/08/2014 negative Obesity, BMI not known used to weigh 280 Old myocardial infarct x 2 with stent placement OTHER LATE EFFECTS CEREBROVASCULAR DISEASE 07/03/2008 RSD upper limb left arm Scabies 06/07/2017 Treated in [place] ER. Senile osteoporosis 07/03/2018 high risk Simple [...] performed by Nnamdi King MD [place] [facility] [place] ANKLE-BRACHIAL INDEX (CARDIOLOGY) Bilateral 11/03/2018 left 1.0, right 0.32 ANKLE-BRACHIAL INDEX (CARDIOLOGY) Bilateral 12/29/2018 Right 0.73, left 0.9 AORTOGRAM ABDOMINAL-TECH ONLY 04/14/2022 IMAGING SUPERVISION & INTERPRETATION ABDOMINAL AO performed by Nnamdi King MD at [place] [facility] [place] APPENDECTOMY W/OTHER PROCEDURE CARDIAC ANGIOPLASTY, PERCUTANEOUS, 1 ARTERY Bilateral 11/12/2022 PTCA, CARDIAC ANGIOPLASTY, PERCUTANEOUS, 1 ARTERY performed by Patrice Jose MD at CARDIAC LABS [facility] [place] COLONOSCOPY THRU STOMA, W/BIOPSY 01/2009 adenomatous polyp, f/u colonoscopy in 5 yrs COLONOSCOPY, DIAGNOSTIC (RECTUM) 07/13/2018 poor prep, repeat 6 mo/COLONOSCOPY FLEXIBLE PROXIMAL DIAGNOSTIC performed by Cassandra Hart MD at ENDOSCOPY [facility] COLONOSCOPY, DIAGNOSTIC (RECTUM) 09/27/2018 6 mm descending tubular adenoma, performed by Cassandra Hart MD at ENDOSCOPY [facility] COMPOSITE SKIN GRAFT b/l axilla, donor site b/l thighs CORONARY ANGIOGRAPHY W/LEFT HEART CATH N/A 11/10/2022 CORONARY ANGIOGRAPHY W/LEFT HEART CATH performed by Patirce Jsoe MD at CARDIAC LABS [facility] [place] ABDOMEN/PELVIS 09/28/2016 no [...] performed by Cassandra Hart MD at ENDOSCOPY [facility] EGD, FLEXIBLE, DIAGNOSTIC 01/19/2019 gastric irritation on /[facility] EGD, FLEXIBLE, W/BIOPSY 09/27/2018 1 cm salmon colored mucosa suggestive of short segment Pendleton's, mild erythema antrum FEM/POP ARTERY REVASC W/ANGIOPLASTY Left 04/14/2022 FEM/POP ARTERY REVASC W/ANGIOPLASTY performed by nNamdi King MD at [place] [facility] [place] FEM/POP ARTERY REVASC W/ANGIOPLASTY Right 09/23/2022 FEM/POP ARTERY REVASC W/ANGIOPLASTY performed by Nnamdi King MD at [place] [facility] [place] ILIAC ART. REVASCULARIZATION W/ANGIOPLASTY Left 09/23/2022 ILIAC ARTERY REVASCULARIZATION W/ANGIOPLASTY performed by Nnamdi King MD at [place] [facility] [place] IOF VASC CAROTID DUPLEX, BILATERAL 12/06/2012 Right carotid artery duplex examination indicates evidence of a less than 50% stenosis of the internal carotid artery. IR ARTERIOGRAM EXTREMITY BILATERAL 04/14/2022 ANGIOGRAPHY EXTREMITY BILATERAL performed by Nnamdi King MD at [place] [facility] [place] IR ARTERIOGRAM EXTREMITY BILATERAL N/A 09/23/2022 ANGIOGRAPHY EXTREMITY BILATERAL performed by Nnamdi King MD at [place] [facility] [place] IR STENT PLACEMENT, INITIAL ARTERY N/A 04/14/2022 NON LOWER EXTREMITY OR CAROTID STENT REVASCULARIZATION WITH RADIOLOGIC SUPERVISION AND INTERPRETATION performed by Nnamdi King MD at [place] [facility] [place] MAMMOGRAM SCREENING BILATERAL Bilateral [...] performed by Nnamdi King MD at [place] [facility] [place] [facility] NEG PRESSURE WOUND THERAPY DME </= 50 SQ CM N/A 11/16/2022 NEGATIVE PRESSURE WOUND THERAPY LESS THAN 50SQ CM performed by Nnamdi King MD at [place] [facility] [place] NM HEPATOBILIARY SYSTEM WITH PHARMACOLOGIC INTERVENTION 10/18/2018 normal hepatic scan with normal GE ejection fraction PARTIAL AMPUTATION OF TOE Right 11/04/2022 AMPUTATION TOE INTERPHALANGEAL JOINT performed by Nnamdi King MD at [place] [facility] [place] PARTIAL HYSTERECTOMY PFT/BA BRONCHODILATOR N/A 03/11/2021 probably normal PFT with some airway reversibility PLACE INTRACORONARY STENT, FIRST VS 3134-2629 REMOVE CATARACT, INSERT LENS PROSTH Left 01/27/2017 Dr Gunter REPAIR OF BLADDER NECK 1994 Dr Montesinos/needed redone due to infection SUBQ DEBRIDEMENT, FIRST 20 CM2 N/A 11/04/2022 DEBRIDEMENT SKIN AND SUBCUTANEOUS TISSUE performed by Nnamdi King MD at [place] [facility] SUBQ DEBRIDEMENT, FIRST 20 CM2 N/A 11/16/2022 DEBRIDEMENT SKIN AND SUBCUTANEOUS TISSUE performed by Nnamdi King MD at [place] [facility] SYNTH BYPASS, FEM-FEM 2004 fem-fem bypass, [place] THROMBOENDARECTOMY W/PATCH,NECK INCISION [id number] right CEA, [place] THROMBOENDARECTOMY W/PATCH,NECK INCISION 08/19/2008 right redo eversion carotid endarterectomy /Dr. 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 Cardiac: No CP or SOB. H/O CAD s/p PCI and Mitral regurg. H/O cardiac arrest in 2022. Gastrointestinal: H/O GI bleeds, reports reflux, reports ulcers, reports abdominal pain. Neurological: H/O right MCA CVA 2008, reports chronic left sided UE weakness. GENERAL MULTI-SYSTEM PHYSICAL EXAM: VITAL SIGNS: BP 122/68 (BP Site: Right Arm, BP Position: Sitting, BP Cuff Size: Regular) | Pulse 88| Temp 36.1 C (96.9 F) (Temporal Artery) GENERAL: Normal grooming habits, no acute distress and appears stated age. NECK: No masses. RESPIRATORY: Respiratory effort normal, lung sounds CTA. CARDIOVASCULAR: No edema and no varicosities. GASTROINTESTINAL: no tenderness, protuberant and abdominal aorta not palpable. LYMPHATIC: cervical lymph nodes normal and inguinial lymph nodes normal. SKIN: Right foot with no ulcers, no rash, no induration, capillary refill normal and with dependentrubor. LBKA site wound well healed, sutures remain RIGHT LEG/FOOT: Rubor right foot, no ulcers PSYCHIATRIC: orientation to time, place and person normal and recent and remote memory normal. EYES: conjunctivae normal, eye lids normal, pupils normal and irises normal. NEUROLOGIC: Motor function grossly intact. Left hand contracture with mild shredder tender peat strength weakness. PULSE SCALE: Carotid Right:----Bruit: Yes Left:----Bruit: No Radial Right: 0 Left: 0 Brachial Right: 2 Left: 0 Femoral Right: 1 Left: 0 Popliteal Right: 0 Left: 0 Dorsalis Pedis Right: 0, +Doppler signal Left: BKA Posterior Tibial Right: 0, +Doppler signal Left: BKA PULSE SCALE: 4=Aneurysmal; 3=Normal; 2=Diminished; 1=Barely Palpable; 0=Absent 07/14/2023 right foot 07/13/2023 left BKA stump incision DIAGNOSTIC STUDIES: 07/14/23 vascular labs: failing right sfa/pop angioplasty site 05/23/2023 Carotid Duplex PAIGE 170/10 (heavily calcified) and LICA 436/132. 05/23/2023 Mesenteric Duplex: Ao 79, Celiac 134, Ewd141, Splenic 83, SMA 117/159/148/164. 05/23/2023 Graft Duplex: L EIA 147, L GRADUATE ENGINEER 253, L DFA 94 L SFA 379/314/106/100, L Pop 24, inflow 69, L anast 125, BPG 75/68/55, R anast 74, outflow 69, R GRADUATE ENGINEER 65, R DFA 68, R SFA 58/70/47/153, [...] PM HGB 8.5 (L) 10/18/2019 07:47 AM Hemoglobin AIC Results: Lab Results Component Value Date/Time HEMOGLOBIN A1C - [facility] 9.1 (H) 06/08/2023 05:36 AM HEMOGLOBIN A1C - [facility] 7.1 (H) 12/10/2022 01:18 PM HEMOGLOBIN A1C - [facility] 6.7 (H) 09/08/2022 02:38 PM HEMOGLOBIN A1C - [facility] 6.6 (H) 04/09/2020 01:42 PM HEMOGLOBIN A1C - [facility] 6.4 (H) 10/18/2019 07:47 AM HEMOGLOBIN A1C - [facility] 5.8 (H) 12/27/2018 01:41 PM The above clinical lab tests were reviewed by me on 07/13/23 CARDIAC STUDIES: 12/01/2022 ECHO ([facility]) 11/13/2023 Card Cath: Ostial LAD with 95% stenosis s/p IVUS guided PCI. IVUS showed critical stenosisat the ostium of LAD. LM-LAD stented with [id number] [place] stent. Mid portion post dilated with 3.0mm [...] MR. Mild tricuspid regurgitation is present. IMPRESSIONS: Likely has rest pain of right foot with small ulceration healing on tip of right 3rd toe. S/P Left BKA on 06/07/[address] King secondary to severe PAD & non-healing ulceration to her left 3rd toe. S/P debridement & application of VAC of [...] main/LAD on 11/12/22 Cultures revealed Kayla and pt placed on oral Fluconazole and IV Zosyn [...] anastamosis (right groin) by Dr. Jara at [facility] on 11/06/18, performed for ischemic right leg. Left to right fem-fem bypass in [place] in approximately 2004. S/P SMA stent and angioplasty of LCFA on 04/14/[address] King for chronic mesenteric ischemia (90% stenosis of SMA and 80% Celiac stenosis) S/P angioplasty of LCFA 04/14/[address] King for LFA stenosis (status post [id number] bypass grafting). Redo R CEA <50% stenosis, heavily calcified, asymptomatic. Asymptomatic LICA 70-99% stenosis. S/P redo right CEA by Dr. Bynum 08/19/2008 (initial right [facility] in [place]); R MCA infarction 05/20 with hemorrhagic conversion 06/20. Residual left UE weakness with hand contracture. Left axillary artery occlusion, asymptomatic. CAD, h/o 11/12/2022 [place] [facility] [place] declined CABG/MVR due to high risk for surgery Moderate Mitral Regurg per ECHO. Dyslipidemia. Tobacoc dependency. Lung nodule per 01/2020 CTA. COPD/Emphysema COVID 11/2022 DM. H/O GI bleed. Anemia. PLAN: Right lower extremity angiogram, angioplasty and stenting from fem-fem approach Most recent duplex show patent SMA stent. She remains asymptomatic, will continue medical management and routine surveillance. The patient was counseled regarding the pathophysiology and natural history of carotid disease, as well as the symptoms of CVA/TIA/amaurosis fugax. No interval unilateral symptoms to suggest CVA/TIA/AF. With Ms. Smith comorbidities would not offer intervention for her asymptomatic carotid stenosis. Will continue with medical management and routine surveillance. Recommend BP readings utilizing RUE for accuracy. Continue daily 81 mg ASA & 75 mg Plavix for graft patency, PAD, carotid disease, mesenteric disease Recommend resumption of her high intensity statin therapy (daily 40 mg Lipitor) per PCP. The patient was seen and examined with MD Mandy Steven I have reviewed the advanced practitioner's documentation [...] MD Section of Vascular [place] [address] [phone] documented in this encounter Nursing Notes * Pilar Bautista RN - 07/18/2023 11:02 AM EDT Dual Licensed Skin Assessment completed by pilar sutton and lisa sutton. The patient is/has a N/A Skin Breakdown (includes non blanchable erythema): Yes - Surgical/Procedural changes only. Previouswound areas noted and unchanged. * Lisa Kunz RN - 07/18/2023 6:53 AM EDT Dual Licensed Skin Assessment completed by keyon and Kristin Lorenzo. The patient is/has a N/A Skin Breakdown (includes non blanchable erythema): Yes. Wound Type: Other, location left arm, right 3rd toe and left stump Wound Ostomy Nurse Notified: No - wound ostomy not needed at this time Nursing interventions: per [facility] Patient/caregiver, Carlotta, verbalized understanding that a pressure injury is anticipated due to the following risk factors: diabetes and previous pressure injury, despite pressure injury prevention measures of turn and repositioning and heels elevated being in place or due to patient's refusal/inability to comply with preventive measures. The areas at risk include but are not limited to the sacrum, bony prominences, heels, . Education was provided about patient's condition and treatment as well as unit standards for turning, repositioning, and skin care. * Malinda Berrios RN - 07/15/2023 7:57 AM EDT Presurgery instructions sent to patient via Log[employer] message. Pre-operative chart review completed-instructions provided based on current medication list in [facility]. NO ANESTHESIA EVAL REQUESTED PER CASE DOCUMENTATION. Per Vascular Surgery letter: PATIENT PRE-OP INSTRUCTIONS: Surgical Procedure: Right leg angiogram, angioplasty, stent Surgical Date: 07/18/23 Surgeon: Dr. King Advanced Practitioner: Melly Singh PA-C Clinic phone number: [phone] You will receive a phone call the night before surgery telling you what time to arrive to the Surgery Check-In Unit on the 1st floor of the hospital, Main Entrance. Nothing to eat or drink by mouth after midnight the night before surgery including no food, no gum/hard candy, coffee, tea, other drink, or tobacco product. Continue all of your normal morning medications with a few sips of water on day of surgery unless otherwise instructed. DO NOT TAKE THESE MEDICATIONS ON THE AM OF SURGERY: insulin aspart (Novolog) OK to continue taking Lantus Solostar, including AM of surgery Please follow the pre-operative instructions provided by your vascular surgeon. If you have any questions regarding these instructions please contact your surgeon's office at [phone]. 24 hours prior to surgery/procedure DO NOT consume any alcohol. DO NOT use medical marijuana. DO NOT smoke or use tobacco products of any kind after midnight prior to surgery. *Using any of these products may increase your risks of procedural complications. IF IT IS LESS THAN RECOMMENDED STOPPAGE TIME PLEASE STOP AT TIME OF NOTIFICATION. FASTING RECOMMENDATIONS: To reduce risk, it is important for all elective surgery patients to follow the specific fasting guidelines listed below. If you have received more stringent guidelines, please follow the MOST RESTRICTIVE guidelines that you have been provided. DO NOT EAT after midnight on the night prior to your surgery date. You are allowed to drink clear liquids up to two hours prior to arrival time to the hospital or surgery center. Examples of clear liquids include water, clear fruit juice without pulp, clear carbonated beverages, clear tea, and black coffee. Any drinks given by your surgical service take as directed. /pediatric patients who currently drink breast milk, infant formula, and non-human milk must not eat after midnight. These patients are allowed to drink only the liquids listed below up to two hours prior to arrival time to the hospital or surgery center: Ingested Material Minimum Fasting Time Clear liquid After midnight up to 2 hours prior to arrival time Breast milk Up to 4 hours prior to arrival time Infant formula Up to 6 hours prior to arrival time Non-human milk Up to 6 hours prior to arrival time THE DAY BEFORE YOUR SURGERY: -Drink plenty of fluid the day before your surgery. Contact your surgeon's office if you develop any of the following within 2 weeks of surgery: A cold Infection Fever Shingles Chicken pox or exposure to chicken pox Open areas such as scrapes, cuts, olvera or other skin conditions Rashes GENERAL INSTRUCTIONS FOR PREPARING FOR SURGERY: BATHING INSTRUCTIONS: Bathe the evening prior to and the morning of surgery/procedure. Cleanse your body using ONLY anti-bacterial soap (eg, Dial, Safeguard) or any specific soap/cleansers and instructions provided by your surgeon (eg, Chlorhexidine). -You should brush your teeth the morning of surgery. Do NOT apply any lotions, powders, sprays, creams, oils, make-up, or deodorants after bathing. No hairspray, or nail malagasy on fingers or toes. Day of surgery/procedure do not use tampons. If you wear contacts wear your eyeglasses if available otherwise bring your contact supplies with you to remove them prior to your surgery/procedure. If you wear glasses or dentures, please bring cases in which you can store them during your surgery. Please remove all piercings and jewelry and leave them at home. Wear comfortable and loose clothing. -Please leave all valuables at home. -If you use a CPAP and are staying overnight, please bring your mask and tubing with you to the hospital. -If you use an assistive mobility device (walker, cane, etc), please label it with your name and bring to hospital. -An escort haul truck driver is required if you are being discharged the same day of the surgery. You should have a responsible adult over the age of 18 [address] drive you home. This person should be present with youin the hospital at the time of discharge and for the first 24 hours after the surgery to support your needs. If you are taking a taxi home, you must have your responsible libertarian accompany you in the taxi ride home at the time of discharge. OR times subject to change. Please check voicemail messages the day/evening before your surgery forany updates. PRE-OP: You will be taken to the pre-op area where your vital signs (blood pressure, pulse and temperature)will be taken. Any preparations that need to be done will be done there. When it is time for your surgery, you will be taken to the operating room. PARENTS OF PEDIATRIC PATIENTS WILL BE ALLOWED TO STAY WITH THEIR CHILDREN UNTIL THEY ARE ESCORTED TO THE OPERATING ROOM OUTPATIENT SURGERY PATIENTS: After your surgery you will be taken to the Same Day Surgery Unit when you are awake and will go home from there. You will get instructions about your home care before you leave. Arrange to have someone drive you home from the hospital. You may not drive for 24 hours after anesthesia. You must havean adult stay with you at home for 24 hours after your operation. This is very important. If you are not able to comply with these guidelines, your Short Stay surgery cannot be done. ADMISSION PATIENTS: After your stay in the recovery area, you will be taken to your room. Your family may visit you in your room based on current visitation policy. If a next day discharge is expected, it is important to make arrangements for a haul truck driver to take you home. Please be aware our visitation policies are subject to change Professionals, attendants, caregivers or family members are allowable visitors for patients with intellectual, developmental or cognitive disabilities, communication barriers or behavioral concerns. Because patients' and families' needs vary, they will be taken into account when applying visitation restrictions. ANESTHESIA INFORMATION This information has been prepared to help you and your family better understand the process of anesthesia, so that you may help make well-informed decisions about your care. This information is alsoprovided to guide your completion of the [facility] anesthesia consent form which addresses real, but infrequent, problems associated with anesthesia. IMPORTANT INFORMATION TO PREVENT YOUR SURGERY FROM BEING CANCELLED/ RESCHEDULED: --You are required to have a haul truck driver to take you home whether you are admitted to the hospital following your surgery or not --You are required to have a responsible adult with you for the first 24 hours after surgery to support your needs Types of Anesthesia: Local Anesthesia Local anesthetic drugs (numbing drugs) are usually injected into the tissues to numb just the specific location of your body requiring minor surgery, such as an area of your hand or foot. Regional Anesthesia -Regional anesthesia involves the use of local anesthetics (numbing drugs) to numb larger areas of your body by blocking nerves to those areas. This is commonly referred to as a nerve block. Another way of performing regional anesthesia is by blocking nerves of the spinal cord by injecting numbing m edicines with great exactness around those nerves. This is called spinal or epidural anesthesia depending on exactly where the medication is injected. The type of regional anesthesia selected dependson the type of surgery and whether regional anesthesia is being done to help with pain after surgery or as a part of the anesthesia for surgery. You may remain awake, be sedated, or be given a general anesthetic depending on the type of surgery and the type of regional anesthesia performed Monitored Anesthesia Care (MAC) -Describes a range of sedation that can be given to a patient undergoing a procedure. The level of sedation usually depends on what is needed for the procedure being performed. A patient could be awake and aware of the procedure being performed but be relaxed and able to follow instructions as needed or may be unaware of what is happening and only rouse to significant stimulation. A patient may be able to speak, hear things around them, and answer questions and follow commands but is not in pain or anxious. A patient may experience varying depths of sedation during the procedure. The use of general anesthesia could result if this type of anesthesia is ineffective. General Anesthesia - Occurs by using a combination of medications to put a patient into a deep, sleep-like, unresponsive state for surgery. This is required for many surgical procedures. Under general anesthesia, a patient does not feel pain and is unaware of what is happening during the procedure. Systems in the body may not function normally while a patient is under general anesthesia. They are monitored by the anesthesia provider and may need to be assisted while a patient is under general anesthesia. For example, a breathing device may need to be placed in the airway to assist breathing and medications may need to be given to ensure that your blood pressure and heart rate remain normal. Risks of Anesthesia: Regional/Local/Nerve Blocks -Include but are not limited to, , cardiac or respiratory arrest, permanent complete paralysis, permanent nerve injury, seizure, spinal headache, backache, pain in buttocks and legs, infection, bleeding, leakage of spinal fluid, inadequate pain relief, bowel or bladder dysfunction, prolonged numbness or pain, temporary drop in blood pressure, or allergic reaction to the medications. Monitored Anesthesia Care (MAC) -Common risks include temporary dizziness, light-headedness, nausea and/or vomiting, and leakage ofintravenous fluid into the tissues with swelling or discoloration of the area or residual pain. Less common risks include, but are not limited to, , heart attack, permanent brain damage, stroke,pneumonia, blood clots, awareness, nerve stretch injury of your arm, neck or leg, permanent liver damage and allergic reaction to the medications. General Anesthesia -More common risks include temporary sore throat, pain in the neck or other muscles, dizziness, light-headedness, nausea and/or vomiting, and leakage of intravenous fluid into the tissues with swelling or discoloration of the area or residual pain. Less common risks include, but are not limited to,, heart attack, permanent brain damage, stroke, pneumonia, blood clots, irritation of the cornea of your eye, vision loss, loosened or broken teeth, or other oral injuries, awareness, nerve stretch injury of the arm, neck or leg, hoarseness, laryngospasm, permanent liver damage and allergic reaction to the medications. History of anesthesia complications: If you or a family member have had a complication related to anesthesia such as difficulty with placement of a breathing tube or a serious reaction to a medication administered for anesthesia, pleasetell your anesthesia provider. Having this information will help keep you safe while under anesthesia Nausea: A common side effect of anesthesia is nausea, but some patients do experience both nausea and vomiting. If you have experienced nausea or vomiting after anesthesia in the past, be sure to tell your anesthesia provider so medication can be given to help prevent it from happening again. Patient safety/consenting process: All surgical procedures and anesthetics have some small risks. They are dependent upon many factorsincluding the type of surgery and your medical condition. That is why it is important to know aboutany underlying medical problems, how they are treated and how they can be managed to reduce the risks of anesthesia and surgery. Thus, it is important for your anesthesia provider to ask detailed questions about your medical history, and to know what prescription medications you are taking, including dosages and schedules, as well as any over the counter or herbal medicines and supplements. You must notify the doctor of any of the following: -if you are or possibly -if you have any sensitivity to medications -present mental and physical condition -if recently consumed alcohol or non-clear liquids -if you are presently on psychiatric mood-altering drugs or other medications If you are a female of child-bearing age and you use any form of hormone-based contraception, please continue to use it and, in addition, use an alternative form of contraception, such as condoms andspermicide for a month after discharge from the hospital. This is because during the hospitalization you might receive one or more medications that may render hormone-based contraceptives ineffective for several days or weeks. The affected contraceptives include, but are not limited to, the usual contraceptive pills, most types of intrauterine devices, Depo-Provera shots, hormonal patches, and hormonal vaginal rings. If you are not sure, contact your primary care physician, your raw finish mill operator, or your surgeon to check if this warning applies to you. You may need to have invasive monitoring, which includes the insertion of catheters into your veinsand arteries. This is done to measure pressures, to take blood samples, and may be used in emergentsituations for intravenous access. This monitoring has risks including, but not limited to, injury to your arteries, lung collapse, bleeding, nerve injury as well as the risks related to anesthesia. An esophageal probe may be used to monitor your heart, this monitor has risks which include sore throat, hoarseness, difficulty with swallowing, loosened or broken teeth and esophageal injury. Major complications are rare but could include , respiratory distress, an abnormal heartbeat, infection, and bleeding. As part of the consent to administer anesthesia authorization you will discuss the following with the anesthesia doctor and his/her associates: -your present condition and diagnosis as it pertains to anesthesia or sedation administration -a description of the proposed anesthetic/sedation technique or procedure to be used -significant risks and benefits of the proposed anesthetic/sedation technique or procedure -any applicable alternatives, including their risks and benefits -if applicable, use of back-up method of contraception for 30 days after discharge -if applicable, the option of having no treatment and the potential results of this -if your procedure is in an outpatient surgery setting-the risk associated with having this procedure in this type of setting should be discussed as well as the potential need for transfer to the hospital if necessary Please be sure to have all questions that you have answered prior to signing the consent to administer anesthesia. You can make your care safer by being an active, informed patient. It is important that you are involved in your health care. Being a good patient does not mean being a silent one. If you have questions, problems, safety concerns or unmet needs, please let us know if you would like further clarification of the "Patient Rights and Responsibilities" as they pertain to you, or would like more information regarding our complaint and for grievance process, please call the site where you receive care and request to speak withthe patient advocate line. [facility]: Contact # [phone] Directions to Surgical Suite in from the [place] Entrance The Surgical Waiting Room can be found in the Lobby of [facility]. Enter through Main Lobby Entrance and the Waiting Room is directly in front of you. Proceed to check in and give them your name. Directions to Surgical Suite from the East Entrance Enter the East entrance and follow the hallway to the J elevator. Take the J elevator up to Level 1. Continue down the long hallway to the main [facility] Lobby. The Surgical Waiting Room will be on your Right. Proceed to check in and give them your Name. Directions to Surgical Suite from the Parking Garage Enter the [facility] lobby and proceed down the galvan to the left. At the end of the galvan, turn right. Continue down the long hallway to the main [facility] Lobby. The Surgical Waiting Room will be on your Right. Proceed to check in and give them your Name. THANK YOU FOR CHOOSING [facility]! documented in this encounter OR Notes * OR Surgeon - Nnamdi King MD - 07/18/2023 11:38 AM EDT [facility] [address] [id number] OPERATIVE REPORT Name: Carlotta Khan Date: 07/18/2023 Time: 11:39 AM [place] [facility] [place]: Vascular Surgery Date of Operation: 07/18/2023 Pre-op Diagnosis: Right lower extremity PAD with ischemic ulcer Post-op Diagnosis: Same. Surgeon: Nnamdi King MD Assistants: Jaquan Nagy MD Anesthesia: Monitored Local Anesthesia with Sedation Operation: Bilateral lower extremity angiography, left common femoral balloon angioplasty, right superficial femoral and popliteal arterial angioplasty and stenting Findings: Left lower extremity angiogram shows high-grade stenosis in the region of the proximal anastomosis of the left to right femoral to femoral bypass graft. The left deep femoral artery is widely patent and the left superficial femoral artery is diminutive in the setting of a left below-knee amputation. The femoral to femoral bypass graft is patent with good flow it into the proximal right deep femoral artery. The right superficial femoral artery and popliteal artery are severely diseased with high-grade stenoses in the 95% stenotic range. There is three-vessel runoff in the right lower extremity to the right foot. Balloon angioplasty is performed of the left femoral anastomotic region both with the balloon into the femoral to femoral bypass and subsequently into the superficial femoral artery with excellent result and no residual stenosis. Initial balloon angioplasty is performed of the right superficial femoral and popliteal arterial segments with good result but with residual stenosis of the above knee popliteal mandating the need for stenting of the marked atherosclerotic plaque. Above knee popliteal and distal superficial femoral artery is stented with excellent result and no residual disease. Specimen and Disposition: None Estimated Blood Loss: 10 ml Fluids: 550 ml crystalloid Urine output: None Drains/Implants: None Complications: None Postoperative Condition: Stable Indications and History: The patient is a 72 year old female who presents for right lower extremity revascularization in thesetting of a femoral to femoral bypass graft which is found to have a proximal stenosis mandating the left femoral angioplasty at the time of this procedure. The patient has had no angiography so initial angiography is necessary before intervention and then intervention is carried out immediately following imaging. The patient has a ulceration of the tip of the toe and ischemic rest pain for clinical indications Description of Operation: The patient was seen in the Holding Room and the site of surgery properly noted and marked. The patient was identified as Carlotta Khan, and the procedure verified. In the operating room a Time Outwas held and the above information confirmed. The right arm was prepped and draped in the usual sterile fashion. The right brachial artery was dissected out and surrounded with vessel loops and the patient was given heparin intravenously. 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 I would to go slightly more proximal as the more distal brachial artery had disease within it by palpation. Using a micropuncture kit I entered percutaneous into the artery and then entered in with a 5 [place] sheath. Under fluoroscopic guidance I passed the wire into the thoracic aorta and then using the Omni flush catheter directed into the descending thoracic aorta. Left lower extremity angiogram and then right lower extremity angiogram were then performed with findings as noted above. The short sheath was then exchanged out for a 6 [place]uran 105 mm long sheath for the procedure. The left femoral angioplasty was performed with a 6 mm angioplasty balloon with good result but later in the procedure there was still disease noted in the left femoral angioplasty performed with a wire this time directed into the left superficial femoral artery instead of the femoral to femoral bypass graft with an excellent result and no residual stenosis. The sheath was then directed into the femoral to femoral bypass graft and the intervention on the right superficial femoral and popliteal artery performed starting with 4 mm and then 5 mm angioplastyballoons with good results but with recurrent disease with recoil of the adductor hiatus region in an area of marked atherosclerotic plaque. Since this was already a redo procedure I felt this had tiarra treated with a stent and therefore a Terumo Misago stent measuring 6 mm x 150 mm long was placedin the right superficial femoral and above knee popliteal segment and post dilated with a 6 mm balloon with excellent result as noted. At the conclusion the wire and sheath were removed and the brachial puncture site closed with 6 0 Prolene suture with excellent pulse and Doppler flow at the level of the brachial artery and good Doppler flow at the level of the wrist. The wound was irrigated with antibiotic solution and then closed with interrupted 3-0 Vicryl and skin closed with 4-0 Monocryl sterile dressing applied along with Dermabond on the skin. Sponge count and needle counts were correct. The patient was transported in stable condition to the Recovery Room. Attestation: I was present and scrubbed for the entire procedure documented in this encounter Miscellaneous Notes * Progress Notes - Non-Billable - Ary Cordon, - 07/18/2023 12:24 PM EDT VASCULAR SURGERY [place]OPERATIVE [place]GR[place] [facility] [place] [id number] Name: Carlotta Khan [place] [facility] [place]: 07/18/2023 Time: 12:24 PM Patient is s/p Bilateral lower extremity angiography, left common femoral balloon angioplasty, right superficial femoral and popliteal arterial angioplasty and stenting SUBJECTIVE: Patient seen at bedside in Same Day postop area. Patient's right arm unwrapped right brachial access site dressing c/d/I, hemostatic. Patient reports sensation and motor intact right hand. OBJECTIVE: Most Recent Vital Signs: BP: 84 mmHg/53 mmHg (07/18/23 1200) Pulse: 89 (07/18/23 1200) Temp: 36 C (07/18/23 1043) Temp Summary: Temp Min: 36 C (96.8 F) Max: 36 C (96.8 F) SpO2: 91 % (07/18/23 1200) O2 flow rate: 3 L/MIN (07/18/23 1200) Supplemental O2 Delivery: Nasal Cannula (07/18/231199) Vital Signs Last 24 Hours: Most Recent Systolic BP Av.5 mmHg Min: 80 mmHg Max: 123 mmHg Most Recent Temperature Av C Min: 36 C Max: 36 C Pulse Av.7 Min: 88 Max: 101 Resp Av.6 Min: 18 Max: 25 SpO2 Av.9 % Min: 88 % Max: 98 % Intake/Output Summary (Last 24 hours) at 07/18/2023 1224 Last data filed at 07/18/2023 1012 Gross per 24 hour Intake 600 ml Output -- Net 600 ml Physical Exam: Constitutional: No acute distress HEENT: Normocephalic Cardiac: Normal sinus rhythm. Resp: Satting well on 2LNC Extremities: Right arm brachial access site dressing c/d/I, no hematoma appreciated Neuro: gross sensation and motor function intact Vascular: Right arm: radial artery +DS, palmar arch +DS, Brachial artery +DS LABS: CBC No results in the last 7 days - inpatent use only BMP No results in the last 7 days - inpatent use only Ca, Mg, Phos No results in the last 7 days - inpatent use only Recent Cultures (2 Weeks) 07/12/2023 04/13/2023 01/20/2023 01/20/2023 01/18/2023 01/18/2023 01/18/2023 01/08/2023 10:38 AM 10:07 AM 7:05 PM 7:00 PM 4:37 PM 2:40 AM 2:34 AM 2:18 AM BLOOD CULTURE GROWTH -- -- No growth No growth -- No growth No growth -- QUANT URINE CULTURE GROWTH No significant growth No significant growth -- -- No significant growth -- -- No significant growth IMPRESSION and PLAN: Carlotta Khan is a 72 year old female with Right lower extremity PAD with ischemic ulcer s/p Bilateral lower extremity angiography, left common femoral balloon angioplasty, right superficial femoral and popliteal arterial angioplasty and stenting on 07/18/[address] King. Patient is stable postop -Okay to leave right arm unwrapped -Leave surgical dressing on per discharge instructions -Okay to discharge Ary Cordon DO Vascular Surgery Resident, PGY1 C VASCULAR SURGERY 07/18/2023 documented in this encounter Plan of Treatment Upcoming Encounters Date Type Department Care Team (Late st Contact Info) Description 08/01/2023 10:00 AM EDT Imaging Vascular Lab, [facility] 2nd [facility], [address] [place] [address] 08/01/2023 11:00 AM EDT [facility] [place] [address] 08/01/2023 2:30 PM EDT Office Visit Pharmacy, [address] [place] [address] [place] [address] 08/09/2023 9:40 AM EDT Office Visit Family [address] [place] [phone] Courtney Restrepo MD [address] [place] [address] [place] [address] 08/10/2023 11:30 AM EDT Office Visit Vascular Surgery, [facility] [address] [facility] [place] [address] Nnamdi King MD [address] [place] [address] 09/27/2023 9:40 AM EDT Office Visit Family [address] [place] [phone] Courtney Restrepo MD [address] [place] [address] [place] [address] 10/10/2023 4:00 PM EDT Office Visit Nephrology, [facility] [address] [place] [address] Charla Potter MD [address] [place] [address] 10/12/2023 11:00 AM EDT Office Visit Cardiology, [facility] [address] [facility] [place] [address] Frantz Herrera MD [address] [place] [address] 12/07/2023 9:20 AM EDT Office Visit Family [address] [place] [phone] Courtney Restrepo MD [address] [place] [address] [place] [address] Scheduled Orders Name Type Priority Associated Diagnoses Orde r Schedule GLUCOSE METER, POINT OF CARE (COMMUNICATION ORDER) Point of Care Testing STAT Perform Now for 1 Occurrences starting 07/18/2023 until 07/18/2023 Scheduled Procedures Name Priority Associated Diagnoses Date/Ti me ESOPHAGOGASTRODUODENOSCOPY ( EGD), FLEXIBLE, TRANSORAL, DIAGNOSTIC Recall Pendleton's esophagus Health Maintenance Due Date Last Done Comments DISCUSS TOBACCO CESSATION (REFER TO SMARTSET #6145) 1950 Cologuard 1994 Fecal Occult Blood Test [...] D LEVEL ONCE IN A LIFETIME-USE SMARTSET# 10823 Completed 10/16/2021, 12/27/2018 Alpha-1 Antitrypsin Discontinued GARDASIL-HPV [...] this encounter Medical Devices Implanted Type Area Senior Business Process Analyst Device Identifier Shelf Expiration Date Model / Serial / Lot Stent Graft Icast [id number] - [id number] - [id number] Implanted:Qty : 1 on 04/14/2022 by Nnamdi King [place] [facility] [place]A: Mesenteric Artery GETINGE : [id number] 02/21/2023 [id number] / [id number] / [id number] Description:implanted in SMA Stent Howie 3.0x15 Rx - [id number] Implanted:Qty : 1 on 11/12/2022 by Patrice Jose MD at [place] [facility] [place] MEDTRONIC : VASCULAR [id number] 11/28/2023 [id number] / / [id number] Stent R2p Misago 6fr [id number] - [id number] Implanted:Qty : 1 on 07/18/2023 by Nnamdi King [place] [facility] [place] Right: SFA [employer] : CARDIO SYS [id number] 09/11/2023 [id number] / / [id number] documented as of this encounter Procedures Procedure Name Priority Date/Time Associated Diagnosis Comments VASC PROCEDURE IN VASCULAR ANGIO SUITE Routine 07/18/2023 10:39 AM EDT GLUCOSE METER, POINT OF CARE ROLO 07/18/2023 6:21 AM EDT documented in this encounter Results * VASC PROCEDURE IN VASCULAR ANGIO SUITE (07/18/2023 10:39 AM EDT) Narrative Scheduling, Silent - 07/18/2023 10:39 AM EDT This procedure will not be read by a Radiologist. Please see operative note. Nnamdi King MD RAD SPECIAL PROCEDUR ES * GLUCOSE METER, POINT OF CARE (07/18/2023 6:21 AM EDT) Glucose Meter 113 70 - 120 mg/dL 07/18/2023 6:24 AM EDT [facility] [employer] Blood Whole blood specimen / Unknown 07/18/2023 6:21 AM EDT 07/18/2023 6:24 AM EDT Nnamdi King MD LAB POINT OF CARE TE ST DOCKED DEVICE UNSOLICITED RESULTS [facility] [address] [place] [address] documented in this encounter Visit Diagnoses Diagnosis PAD (peripheral artery disease) (HCC)- Primary Peripheral vascular disease, unspecified Ulcer of right foot, limited to breakdown of skin (HCC) Ischemic rest pain of lower extremity Peripheral vascular disease, unspecified Dependent rubor Unspecified erythematous condition S/P AKA (above knee amputation), left (HCC) documented in this encounter Administered Medications Inactive Administered Medications - up to 3 most recent administrations Medication Order MAR Action Action Date Dose Rate Site isolyte-S pH 7.4 infusion Intravenous, at 25 mL/hr, Plasma-LYTE 148, isolyte-S, and isolyte-S pH 7.4 are considered equivalent - including for MAR barcode scanning., CONTINUOUS, Starting on Tue07/18/23 at 0745, Until Tue07/18/23 at 1656, Pre-Op New Bag 07/18/2023 6:38 AM EDT 25 mL/hr lidocaine 1 % inj 1 mg 1 mg (0.1 mL), Percutaneous, ONCE PRN Other, Difficult IV starts requiring > 20 guage catheter and/ or by patient request, Starting on Tue07/18/23 at 0622, Until Tue07/18/23 at 1656, For 1 dose, Pre-Op oxyCODONE (Oxy IR) tab 5 mg 5 mg, Oral, ONCE, On Tue07/18/23 at 1230, For 1 dose, PACU Given 07/18/2023 11:58 AM EDT 5 mg Povidone-Iodine nasal swab 4 Swab 4 Swab, Nasal, PREOP, First dose on Tue07/18/23 at 0700, Last dose on Tue07/18/23 at 0700, For 1 dose, Tilt the bottle slightly, dip one swab into solution and stir vigorously for 10 seconds. Withdraw the swab slowly to avoid wiping solution off during removal. Insert swab comfortably into one nostril and rotate for 15 seconds, covering all surfaces. Then focus on the inside tip of nostril and rotate for an additional 15 seconds. Using a new swab, Repeat above steps in the other nostril (Swab 2). Repeat the application in both nostrils using a fresh swab each times (Swab 3 and 4)., Pre-Op Given 07/18/2023 6:50 AM EDT 4 Swabs Vancomycin (Vancocin) 1000 mg in NSS 250 mL ivpb LOCKED DOSE 1,000 mg, IV Piggyback, PREOP, 1 dose, First dose on Tue07/18/23 at 0700, Administer 90 to 210 minutes prior to skin incision, depending on infusion., Pre-Op New Bag 07/18/2023 6:37 AM EDT 1,000 mg 275 mL/hr documented in this encounter Active and Recently Administered Medications Times are shown in EDT. Scheduled Medication Order 07/16/2023 07/17/2023 07/18/2023 oxyCODONE (Oxy IR) tab 5 mg (COMPLETED) 5 mg, Oral, ONCE, On Tue07/18/23 at 1230, For 1 dose, PACU 1158 (Given - Provid er: Pilar Bautista RN) Povidone-Iodine nasal swab 4 Swab (COMPLETED) 4 Swab, Nasal, PREOP, First dose on Tue07/18/23 at 0700, Last dose on Tue07/18/23 at 0700, For 1 dose, Tilt the bottle slightly, dip one swab into solution and stir vigorously for 10 seconds. Withdraw the swab slowly to avoid wiping solution off during removal. Insert swab comfortably into one nostril and rotate for 15 seconds, covering all surfaces. Then focus on the inside tip of nostril and rotate for an additional 15 seconds. Using a new swab, Repeat above steps in the other nostril (Swab 2). Repeat the application in both nostrils using a fresh swab each times (Swab 3 and 4)., Pre-Op 0650 (Given - Provid er: Lisa Kunz RN) Vancomycin (Vancocin) 1000 mg in NSS 250 mL ivpb LOCKED DOSE (COMPLETED) 1,000 mg, IV Piggyback, PREOP, 1 dose, First dose on Tue07/18/23 at 0700, Administer 90 to 210 minutes prior to skin incision, depending on infusion., Pre-Op 0637 (New Bag - Prov ider: Lisa Kunz RN) Continuous Medication Order 07/16/2023 07/17/2023 07/18/2023 isolyte-S pH 7.4 infusion Intravenous, at 25 mL/hr, Plasma-LYTE 148, isolyte-S, and isolyte-S pH 7.4 are considered equivalent - including for MAR barcode scanning., CONTINUOUS, Starting on Tue07/18/23 at 0745, Until Tue07/18/23 at 1656, Pre-Op 0638 (New Bag - Prov ider: Lisa Kunz RN) PRN Medication Order 07/16/2023 07/17/2023 07/18/2023 bupivacaine HCl 30 mL, lidocaine 1 % 30 mL inj (CANCELED) ONCE PRN INTRA PROCEDURE, Starting on Tue07/18/23 at 1030, Until Tue07/18/23 at 1037, Intra-Op 1030 (Given - Provid er: Nnamdi King MD) hEParin 5,000 Units in NSS 500 mL infusion (CANCELED) ONCE PRN INTRA PROCEDURE, Starting on Tue07/18/23 at 0813, Until Tue07/18/23 at 1037, Intra-Op 0813 (Given - Provid er: Nnamdi King MD - Comment: prn irrigation intraop) Iodixanol (Visipaque 320) inj (CANCELED) ONCE PRN INTRA PROCEDURE, Starting on Tue07/18/23 at 1031, Until Tue07/18/23 at 1037, Intra-Op 1031 (Given - Provid er: Nnamdi King MD) lidocaine 1 % inj 1 mg 1 mg (0.1 mL), Percutaneous, ONCE PRN Other, Difficult IV starts requiring > 20 guage catheter and/ or by patient request, Starting on Tue07/18/23 at 0622, Until Tue07/18/23 at 1656, For 1 dose, Pre-Op surgicel FIBRILLAR 1X2 (CANCELED) ONCE PRN INTRA PROCEDURE, Starting on Tue07/18/23 at 1000, Until Tue07/18/23 at 1141, Intra-Op 1000 (Given - Provid er: Nnamdi King MD) vancomycin 1,000 mg in sodium chloride IR 0.9 % 500 mL irrigation (CANCELED) Intra-Op 0813 (Given - Provid er: Nnamdi King MD - Comment: prn irrigation intraop) documented in this encounter Advance Directives Latest [...] the patient have Health Care Power of Shift Superintendent Caustic Cresylate? Yes, in chart and reviewed as current [...] patient or by statute hierarchy) Care Teams Chief Fishery Division Relationship Specialty Start Date End Date Courtney Restrepo MD [address] [place] [address] [place] [address] PCP - General Family Medicine 10/17/19 documented as of this encounter
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
--- OUTSIDE RECORDS SUMMARY | 2023-08-31 06:25 | External Medical Summary | Summary of Care ---
Author Name Unknown Organization [facility] Address [address] [place] [address] Phone [phone] Care Team Providers Care Buyer Assistant Name Role Phone Courtney Restrepo MD Primary Care Prov ider Encounter Details Date Type Department Care Team (Latest Contact Info) Description 07/14/2023 9:59 AM EDT Hospital Encounter Vascular Lab [facility] [address] [place] [address] Arrived Discharge Disposition: Home - Self Care Allergies [...] edema Nitroglycerin Hypotension 12/20/2018 Penicillins Nausea/vomiting 05/17/2007 [place] Hives 10/02/2018 Propoxyphene Edema face/lips/tongue,Hiv es 06/26/2009 [...] Patient not taking.Informant: At Discharge, Reported on 07/01/2023 OneTouch Apolinar Lancgrant 30GIndications:Type 2 diabetes mellitus with hemoglobin A1c goal of less than 8.0% ([facility]) Use to test glucose daily. E11.9 100 Each 5 3 Active OneTouch Verio w/Device KitIndications:Type 2 diabetes mellitus with hemoglobin A1c goal of less than 8.0% ([facility]) Use to test glucose daily. [...] Additional Information Patient not taking.Reported on 07/01/2023 Ondansetron HCl 4 MG Oral Tablet (Zofran)Indications [...] suspected opioid overdose. Seek medical help immediately. [email or web address] 1 mL 3 4 Active Additional Information [...] n 07/14/2023 Dependent rubor 07/14/2023 Atherosclerosis of [place] artery of extremity Pre-ulcerative corn or [...] rinse after steroid. Test performed by Bibiana ORCHARD SPRAYER CPFT Old [place] (myocardial infarction) 02/21/2019 Bilateral [...] osteoporosis 07/03/2018 Reactive depression 11/17/2017 Atherosclerosis of [place] co ronary artery of [place] heart without angina pectoris 07/22/2015 Overview: Single stent placed 1993 Type 2 diabetes mellitus wit h hemoglobin [...] rinse after steroid. Test performed by Bibiana ORCHARD SPRAYER CPFT GENERAL OSTEOARTHROSIS BMI 32.0-32.9,adult Tobacco use [...] ISCHEMIC HRT DIS NOS Coronary atherosclerosis of [place] coronary artery 11/24/2016 Tobacco abuse 11/17/2017 [...] 07/18/2023 7:15 AM EDT Hospital Encounter [place] [facility] [address] [place] [facility] [place] [phone] Nnamdi King MD [address] [place] [address] 07/18/2023 7:15 AM EDT - 07/18/2023 9:10 AM EDT Surgery OR [facility]PER[facility] [address] [facility] [place] [phone] Nnamdi King MD [address] [place], [place] [phone] IMAGING SUPERVISION & INTERPRETATION EXTREMITY UNILATERAL 08/01/2023 10:00 AM EDT Imaging Vascular Lab, [facility] [address] [place] [address] 08/01/2023 11:00 AM EDT Imaging Vascular Lab, [address] [place] [address] 08/01/2023 2:30 PM EDT Office Visit Pharmacy, [address] [place] [address] [place] [address] 08/09/2023 9:40 AM EDT Office Visit Family [address] [phone] Courtney Restrepo MD [address] [place] [address] [place] [address] 08/10/2023 11:30 AM EDT Office Visit Vascular Surgery, [facility] [address] [place] [address] Nnamdi King MD [address] [place] [address] 09/27/2023 9:40 AM EDT Office Visit [address] [phone] Courtney Restrepo MD [address] [place] [address] [place] [address] 10/10/2023 4:00 PM EDT Office Visit Nephrology, [facility] [address] [place] [address] Charla Potter MD [address] [place], [place] [phone] 10/12/2023 11:00 AM EDT Office Visit Cardiology, [facility] [address] [place] [address] rFantz Herrera MD [address] [place] [address] 12/07/2023 9:20 AM EDT Office Visit Family [address] [phone] Courtney Restrepo MD [address] [place] [address] [place] [address] Scheduled Procedures Name Priority Associated Diagnoses Date/Ti me IMAGING SUPERVISION & INTERP RETATION EXTREMITY UNILATERAL 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 ([facility]) 07/18/2023 7:15 AM EDT FEM/POP ARTERY REVASC W/ STENT+ANGIOPLASTY 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 ([facility]) 07/18/2023 7:15 AM EDT ESOPHAGOGASTRODUODENOSCOPY ( EGD), FLEXIBLE, TRANSORAL, DIAGNOSTIC Recall Pendleton's esophagus Health Maintenance Due Date Last Done Comments DISCUSS TOBACCO CESSATION (REFER TO SMARTSET #8135) 1949 Cologuard 1994 Fecal Occult Blood Test [...] D LEVEL ONCE IN A LIFETIME-USE SMARTSET# 17056 Completed 10/16/2021, 12/27/2018 Alpha-1 Antitrypsin Discontinued GARDASIL-HPV [...] encounter Medical Devices Implanted Type Area Machine Stemmer Device Identifier Shelf Expiration Date Model / Serial / Lot Stent Graft Icast [id number] - [id number] - [id number] Implanted:Qty : 1 on 04/14/2022 by Nnamdi King MD at OR [facility] N/A: Mesenteric Artery GETINGE : MAQUET [id number] 02/21/2023 [id number] / [id number] / [id number] Description:implanted in SMA Stent [place] 3.0x15 Rx - [id number] Implanted:Qty : 1 on 11/12/2022 by Patrice Jose MD at CARDIAC LABS [facility] [employer] : VASCULAR [id number] 11/28/2023 [id number] / / [id number] documented as of this encounter Procedures Procedure Name Priority Date/Time Associated Diagnosis Comments VASC ANKLE BRACHIAL INDICES WITHOUT PPG (PAD) Routine 07/14/2023 10:29 AM EDT 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 For the right lower extremity: Lower extremity Doppler Evaluation is consistent with mild arterial occlusive disease. Patient has a history of revascularization of the right lower extremity. Great toe pressure is 42. PPG tracing of the great toe has decreased amplitude. For the left lower extremity: The patient has a below knee amputation. Additional comments: Left upper extremity arterial occlusive disease suggested by blood pressure differential. Narrative 07/14/2023 11:09 AM EDT VASCULAR LAB RESULTS DATE OF EXAMINATION: 07/14/23 INDICATION: PAD ANKLE BRACHIAL INDEX OF THE LOWER EXTREMITIES Immediately before proceeding with the vascular lab procedure reported below, the identity of the patient, the correct exam and the correct procedural site were identified. Continuous wave doppler and appropriate size pressure cuffs were utilized during the examination. Findings: The right and left brachial artery blood pressures are 140 mmHg and 102 mmHg respectively. On the right, the posterior tibial artery waveform is biphasic and has an amplitude which is excellent. The right dorsalis pedis artery waveform is biphasic and has an amplitude which is good. The right peroneal artery waveform is biphasic and has an amplitude which is decreased. The tibial pressures range from 80 mmHg to 108 mmHg. On the left, the patient has a below knee amputation. Kyle Olivares PA-C RAD VASCULAR documented in this encounter [place] Directives Latest [...] the patient have Health Care Power of Medical Office Clerk? Yes, in chart and reviewed as [...] patient or by statute hierarchy) Care Teams Buyer Assistant Relationship Specialty Start Date End Date Courtney Restrepo MD [address] [place] [address] [place] [address] PCP - General Family Medicine 10/17/19 documented as of this encounter
--- OUTSIDE RECORDS SUMMARY | 2023-08-31 06:25 | External Medical Summary | Summary of Care ---
Author Name Unknown Organization [facility] Address [address] [place] [address] Phone [phone] Care Team Providers Care Radio Script Writer Name Role Phone Courtney Restrepo MD Primary Care Prov ider Encounter Details Date Type Department Care Team (Latest Contact Info) Description 07/14/2023 10:00 AM EDT - 07/14/2023 11:59 PM EDT Hospital Encounter Vascular Lab [facility] [address] [place] [address] Arrived Discharge Disposition: Home - [...] edema Nitroglycerin Hypotension 12/20/2018 Penicillins Nausea/vomiting 05/17/2007 [place] Hives 10/02/2018 Propoxyphene Edema face/lips/tongue,Hiv es 06/26/2009 [...] not taking.Informant: At Discharge, Reported on 07/14/2023 OneTolaura Brown 30GIndications:Type 2 diabetes mellitus with hemoglobin A1c goal of less than 8.0% ([facility]) Use to test glucose daily. E11.9 100 Each 5 3 Active OneTouch Verio w/Device KitIndications:Type 2 diabetes mellitus with hemoglobin A1c goal of less than 8.0% ([facility]) Use to test glucose daily. E11.9 1 [...] suspected opioid overdose. Seek medical help immediately. [email or web address] 1 mL 3 4 Active Additional Information [...] n 07/14/2023 Dependent rubor 07/14/2023 Atherosclerosis of [place] artery of extremity 05 /04/2023 Pre-ulcerative corn or callous 07/12/2023 Status post [...] rinse after steroid. Test performed by Bibiana SOAKERS SUPERVISOR CPFT Old [place] (myocardial infarction) 02/21/2019 Bilateral [...] osteoporosis 07/03/2018 Reactive depression 11/17/2017 Atherosclerosis of [place] co ronary artery of [place] heart without angina pectoris 07/22/2015 Overview: Single [...] rinse after steroid. Test performed by Bibiana SOAKERS SUPERVISOR CPFT GENERAL OSTEOARTHROSIS BMI 32.0-32.9,adult Tobacco [...] ISCHEMIC HRT DIS NOS Coronary atherosclerosis of [place] coronary artery 11/24/2016 Tobacco abuse 11/17/2017 documented [...] EDT Hospital Encounter [facility], [facility] [address] [place] [phone] Nnamdi King MD [address] [place] [address] 07/18/2023 7:15 AM EDT - 07/18/2023 9:10 AM EDT Surgery OR [facility], OPERATING RO[facility] [address] [place] [phone] Nnamdi King MD [address] [place], [place] [phone] IMAGING SUPERVISION & INTERPRETATION EXTREMITY UNILATERAL 08/01/2023 10:00 AM EDT Imaging Vascular Lab, [address] [place] [address] 08/01/2023 11:00 AM EDT Imaging Vascular Lab, [address] [place] [address] 08/01/2023 2:30 PM EDT Office Visit Pharmacy, [address] [place] [address] [place] [address] 08/09/2023 9:40 AM EDT Office Visit Family [address] [phone] Courtney Restrepo MD [address] [place] [address] [place] [address] 08/10/2023 11:30 AM EDT Office Visit Vascular Surgery, [facility] [address] [place] [address] Nnamdi King MD [address] [place] [address] 09/27/2023 9:40 AM EDT Office Visit Family [address] [phone] Courtney Restrepo MD [address] [place] [address] [place] [address] 10/10/2023 4:00 PM EDT Office Visit Nephrology, [address] [place] [address] Charla Potter MD [address] [place] [address] 10/12/2023 11:00 AM EDT Office Visit Cardiology, [facility] [address] [place] [address] Frantz Herrera MD [address] [place] [address] 12/07/2023 9:20 AM EDT Office Visit Family [address] [phone] Courtney Restrepo MD [address] [place] [address] [place] [address] Scheduled Procedures Name Priority Associated Diagnoses Date/Ti me IMAGING SUPERVISION & INTERP RETATION EXTREMITY UNILATERAL 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 (HCC) 07/18/2023 7:15 AM EDT FEM/POP ARTERY REVASC W/ STENT+ANGIOPLASTY 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 (HCC) 07/18/2023 7:15 AM EDT ESOPHAGOGASTRODUODENOSCOPY ( EGD), FLEXIBLE, TRANSORAL, DIAGNOSTIC Recall Pendleton's esophagus Health Maintenance Due Date Last Done Comments DISCUSS TOBACCO CESSATION (REFER TO SMARTSET #1875) 1949 Cologuard 1994 Fecal Occult Blood Test [...] D LEVEL ONCE IN A LIFETIME-USE SMARTSET# 31811 Completed 10/16/2021, 12/27/2018 Alpha-1 Antitrypsin Discontinued GARDASIL-HPV [...] this encounter Medical Devices Implanted Type Area Kieselguhr Regenerator Operator Device Identifier Shelf Expiration Date Model / Serial / Lot Stent Graft Icast [id number] - [id number] - [id number] Implanted:Qty : 1 on 04/14/2022 by Nnamdi King MD at OR [facility] N/A: Mesenteric Artery GETINGE : MAQUET [id number] 02/21/2023 [id number] / [id number] / [id number] Description:implanted in SMA Stent How[place] 3.0x15 Rx - [id number] Implanted:Qty : 1 on 11/12/2022 by Patrice Jose MD at CARDIAC LABS [facility] [employer] : VASCULAR [id number] 11/28/2023 [id number] / / [id number] documented as of this encounter Procedures Procedure Name Priority Date/Time Associated Diagnosis Comments VASC DUPLEX ART LE BILAT-GRAFT Routine 07/14/2023 11:23 AM EDT 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 Bynum scale, color flow and spectral doppler were performed for this examination. PHYSICIAN REPORT: Right common femoral artery has a velocity of 44 cm/sec with a biphasic waveform. Right deep femoral artery has a velocity of 134 cm/sec with a biphasic waveform. Right superficial femoral artery, at origin has a velocity of 34 cm/sec with a biphasic waveform. Right superficial femoral artery, proximal thigh has a velocity of 393 cm/sec with a biphasic waveform. Right superficial femoral artery, mid-thigh has a velocity of 132 cm/sec with a biphasic waveform. Right superficial femoral artery, distal-thigh has a velocity of 68 cm/sec with a biphasic waveform. Right popliteal artery has a velocity of 101 cm/sec with a biphasic waveform. LEFT FEMORAL TO RIGHT FEMORAL BYPASS GRAFT DUPLEX The left external iliac artery has a velocity of 174 cm/sec with a biphasic waveform. The left femoral anastomotic region has a velocity of 384 cm/sec with a biphasic waveform. The femoral to femoral graft velocities range from 42 to 188 cm/sec with a biphasic waveform. The right femoral anastomotic region has a velocity of 42 cm/sec with a biphasic waveform. Left common femoral artery has a velocity of 449 cm/sec with a biphasic waveform. Left deep femoral artery has a velocity of 242 cm/sec with a biphasic waveform. The left superficial femoral artery, proximal thigh has a velocity of 376 cm/sec with a biphasic waveform. The leftt superficial femoral artery, mid-thigh has a velocity of 72 cm/sec with a biphasic waveform. The left superficial femoral artery, distal-thigh has a velocity of 32 cm/sec with a triphasic waveform. Left popliteal artery has a velocity of 13 cm/sec with a monophasic waveform. CONCLUSIONS: Greater than 70% stenosis of the femoral to femoral bypass graft. The right superficial femoral artery demonstrates greater than 70% stenosis. The right common femoral artery demonstrates greater than 70% stenosis. The left superficial femoral artery demonstrates greater than 70% stenosis. Kyle Olivares PA-C RAD VASCULAR documented in [...] the patient have Health Care Power of Diesel Inspector? Yes, in chart and reviewed as [...] patient or by statute hierarchy) Care Teams Radio Script Writer Relationship Specialty Start Date End Date Courtney Restrepo MD [address] [place] [address] [place] [address] PCP - General Family Medicine 10/17/19 documented as of this encounter
--- OUTSIDE RECORDS SUMMARY | 2023-08-31 06:25 | External Medical Summary | Summary of Care ---
Author Name Unknown Organization [facility] Address [address] [place] [address] Phone [phone] Care Team Providers Care Cycle Repairer Name Role Phone Courtney Restrepo MD Primary Care Prov ider Reason for Visit * Reason Onset Date Comments Advice 07/15/2023 Encounter Details Date Type Department Care Team (Late st Contact Info) Description 07/15/[address] [phone] Courtney Restrepo MD [address] [place] [address] [place] [address] Advice Allergies Active Allergy Reactions Criticality [...] edema Nitroglycerin Hypotension 12/20/2018 Penicillins Nausea/vomiting 05/17/2007 [place] Hives 10/02/2018 Propoxyphene Edema face/lips/tongue,Hiv es 06/26/2009 [...] s:COPD, group C, by GOLD 2017 classification ([facility]) Inhale 1 puff as directed once a day 1 inhalation daily. Rinse mouth after every use. 60 Blister Dosing Unit 5 3 Active NovoLOG FlexPen 100 UNIT/ML Subcutaneous Solution Pen-injector (insulin aspart)Indications: Type 2 diabetes mellitus with hemoglobin A1c goal of less than 8.0% ([facility]) Units as per sliding scale 3 mL 3 3 Active Insulin Glargine Solostar 100 UNIT/ML Subcutaneous Solution Pen-injector (Lantus SoloStar)Indication s:Type 2 diabetes mellitus with hemoglobin A1c goal of less than 8.0% ([facility]) Inject 10 Units under [...] A1c goal of less than 8.0% ([facility]) Test glucose once daily [...] opioid overdose. Seek medical help immediately. [email or web address] 1 mL 3 4 Active Additional Information [...] n 07/14/2023 Dependent rubor 07/14/2023 Atherosclerosis of [place] artery of extremity Pre-ulcerative corn or callous [...] rinse after steroid. Test performed by Bibiana ROLLER STITCHER CPFT Old [place] (myocardial infarction) 02/21/2019 Bilateral carotid artery stenosis [...] osteoporosis 07/03/2018 Reactive depression 11/17/2017 Atherosclerosis of [place] co ronary artery of [place] heart without angina pectoris 07/22/2015 Overview: Single [...] rinse after steroid. Test performed by Bibiana ROLLER STITCHER CPFT GENERAL OSTEOARTHROSIS BMI 32.0-32.9,adult Tobacco use [...] ISCHEMIC HRT DIS NOS Coronary atherosclerosis of [place] coronary artery 11/24/2016 Tobacco abuse 11/17/2017 documented [...] EDT Gabapentin refilled. I sent it to [facility] [email or web address] [facility]. Please confirm this is what she [...] 07/18/2023 7:15 AM EDT Hospital Encounter OR [facility], OPERATING ROOM [facility], KALIE PAVALBER [address] [place] [address] Nnamdi King MD [address] [place], [place] [phone] 07/18/2023 7:15 AM EDT - 07/18/2023 9:10 AM EDT Surgery OR [facility], OPERATING ROOM [facility], KALIE JIMENEZILIDANNI [address] [place] [phone] Nnamdi King MD [address] [place], [place] [phone] IMAGING SUPERVISION & INTERPRETATION EXTREMITY UNILATERAL 08/01/2023 10:00 AM EDT Imaging Vascular Lab, [address] [place] [address] 08/01/2023 11:00 AM EDT Imaging Vascular Lab, [address] [place] [address] 08/01/2023 2:30 PM EDT Office Visit Pharmacy, [address] [place] [address] [place] [address] 08/09/2023 9:40 AM EDT Office Visit Family Medicine [address] [place] [phone] Courtney Restrepo MD [address] [place] [address] [place] [address] 08/10/2023 11:30 AM EDT Office Visit Vascular Surgery, [address] [place] [address] Nnamdi King MD [address] [place] [address] 09/27/2023 9:40 AM EDT Office Visit Family [address] [phone] Courtney Restrepo MD [address] [place] [address] [place] [address] 10/10/2023 4:00 PM EDT Office Visit Nephrology, [facility] [address] [place] [address] Charla Potter MD [address] [place] [address] 10/12/2023 11:00 AM EDT Office Visit Cardiology, 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 ([facility]) 07/18/2023 7:15 AM EDT ESOPHAGOGASTRODUODENOSCOPY ( EGD), FLEXIBLE, TRANSORAL, DIAGNOSTIC Recall Pendleton's esophagus Health Maintenance Due Date Last Done Comments DISCUSS TOBACCO CESSATION (REFER TO SMARTSET #0415) 1949 Cologuard 1994 Fecal Occult Blood Test [...] D LEVEL ONCE IN A LIFETIME-USE SMARTSET# 47762 Completed 10/16/2021, 12/27/2018 Alpha-1 Antitrypsin Discontinued GARDASIL-HPV [...] encounter Medical Devices Implanted Type Area Senior Engineering Manager Device Identifier Shelf Expiration Date Model / Serial / Lot Stent Graft Icast [id number] - [id number] - [id number] Implanted:Qty : 1 on 04/14/2022 by Nnamdi King MD at OR [facility] N/A: Mesenteric Artery GETINGE : MAQUET [id number] 02/21/2023 [id number] / [id number] Description:implanted in SMA Stent Howie 3.0x15 Rx - [id number] Implanted:Qty : 1 on 11/12/2022 by Patrice Jose MD at CARDIAC LABS [facility] [employer] : VASCULAR [id number] 11/28/2023 [id number] / / [id number] documented as of this encounter [place] [...] the patient have Health Care Power of Hospital Security Officer? Yes, in chart and reviewed as current [...] patient or by statute hierarchy) Care Teams Cycle Repairer Relationship Specialty Start Date End Date Courtney Restrepo MD [address] [place] [address] [place] [address] PCP - General Family Medicine 10/17/19 documented as of this encounter
--- OUTSIDE RECORDS SUMMARY | 2023-08-31 06:25 | External Medical Summary | Summary of Care ---
Author Name Unknown Organization [facility] Address [address] [place] [address] Phone [phone] Care Team Providers Care Bar Finish Operator Name Role Phone Courtney Restrepo MD Primary Care Prov ider Reason for Visit * Reason Onset Date Comments Advice 07/14/2023 Encounter Details Date Type Department Care Team (Late st Contact Info) Description 07/14/2023 Telephone Vascular Surg [facility] [address] [place] [address] Melly Singh PA-C [address] [place] [address] Advice Allergies Active Allergy Reactions Criticality Noted [...] edema Nitroglycerin Hypotension 12/20/2018 Penicillins Nausea/vomiting 05/17/2007 [place] Hives 10/02/2018 Propoxyphene Edema face/lips/tongue,Hiv es 06/26/2009 [...] :COPD, group C, by GOLD 2017 classification ([facility]) Inhale 1 puff as directed once a day 1 inhalation daily. Rinse mouth after every use. 60 Blister Dosing Unit 5 11/29/2022 Active NovoLOG FlexPen 100 UNIT/ML Subcutaneous Solution Pen-injector (insulin aspart)Indications:T ype 2 diabetes mellitus with hemoglobin A1c goal of less than 8.0% ([facility]) Units as per sliding scale 3 mL 3 02/04/2023 Active Insulin Glargine Solostar 100 UNIT/ML Subcutaneous Solution Pen-injector (Lantus SoloStar)Indications :Type 2 diabetes mellitus with hemoglobin A1c goal of less than 8.0% ([facility]) Inject 10 Units under [...] hemoglobin A1c goal of less than 8.0% ([facility]) Test glucose once daily [...] suspected opioid overdose. Seek medical help immediately. [email or web address] 1 mL 3 06/14/2023 Active Additional Information [...] n 07/14/2023 Dependent rubor 07/14/2023 Atherosclerosis of [place] artery of extremity Pre-ulcerative corn or callous [...] rinse after steroid. Test performed by Bibiana CATERING ASSISTANT CPFT [place] (myocardial infarction) 02/21/2019 Bilateral [...] osteoporosis 07/03/2018 Reactive depression 11/17/2017 Atherosclerosis of [place] co ronary artery of [place] heart without angina pectoris 07/22/2015 Overview: Single [...] rinse after steroid. Test performed by Bibiana CATERING ASSISTANT CPFT GENERAL OSTEOARTHROSIS BMI 32.0-32.9,adult Tobacco [...] ISCHEMIC HRT DIS NOS Coronary atherosclerosis of [place] coronary artery 11/24/2016 Tobacco abuse 11/17/2017 documented [...] Telephone Encounter - Kiko Dennis OSA - 07/14/2023 4:32 PM EDT Scripts emailed * Telephone Encounter - Melly Singh PA-C - 07/14/2023 4:18 PM EDT Secretaries - Can you e-mail prosthetic script and stump marine steam fitter script to: [email or web address]? That's the patient's daughter. She forgot the scripts today in the office. Thanks documented in this encounter Plan of Treatment Upcoming Encounters Date Type Department Care Team (Latest Contact Info) Description 07/18/2023 7:15 AM EDT Hospital Encounter [facility], OPERATING RO[facility] KALIE ADKINS [address] [place] [address] Nnamdi King MD [address] [place] [address] 07/18/2023 7:15 AM EDT - 07/18/2023 9:10 AM EDT Surgery OR [facility], OPERATING ROOM [facility] KALIE BARBARAALBER [address] [place] [address] Nnamdi King MD [address] [place] [address] IMAGING SUPERVISION & INTERPRETATION EXTREMITY UNILATERAL 08/01/2023 10:00 AM EDT Imaging Vascular Lab, [address] [place] [address] 08/01/2023 11:00 AM EDT [address] [address] 08/01/2023 2:30 PM EDT Office Visit Pharmacy, [address] [place] [address] [place] [address] 08/09/2023 9:40 AM EDT Office Visit [address] [phone] Courtney Restrepo MD [address] [place] [address] [place] [address] 08/10/2023 11:30 AM EDT Office Visit Vascular Surgery, [address] [place] [address] Nnamdi King MD [address] [place] [address] 09/27/2023 9:40 AM EDT Office Visit [address] [phone] Courtney Restrepo MD [address] [place] [address] [place] [address] 10/10/2023 4:00 PM EDT Office Visit Nephrology, [facility] [address] [place] [address] Charla Potter MD [address] [place] [address] 10/12/2023 11:00 AM EDT Office Visit Cardiology, [facility] [address] [facility] [place] [address] Frantz Herrera MD [address] [place] [address] 12/07/2023 9:20 AM EDT Office Visit Family Medicine [address] [phone] Courtney Restrepo MD [address] [place] [address] [place] [address] Scheduled Procedures Name Priority Associated Diagnoses Date/Ti me IMAGING SUPERVISION & INTERP RETATION EXTREMITY UNILATERAL 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 ([facility]) 07/18/2023 7:15 AM EDT FEM/POP ARTERY REVASC W/ STENT+ANGIOPLASTY 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 ([facility]) 07/18/2023 7:15 AM EDT ESOPHAGOGASTRODUODENOSCOPY ( EGD), FLEXIBLE, TRANSORAL, DIAGNOSTIC Recall Pendleton's esophagus Health Maintenance Due Date Last Done Comments DISCUSS TOBACCO CESSATION (REFER TO SMARTSET #9001) 1949 Cologuard 1994 Fecal Occult Blood Test [...] D LEVEL ONCE IN A LIFETIME-USE SMARTSET# 10471 Completed 10/16/2021, 12/27/2018 Alpha-1 Antitrypsin Discontinued GARDASIL-HPV [...] this encounter Medical Devices Implanted Type Area Ice Cream Truck Driver Device Identifier Shelf Expiration Date Model / Serial / Lot Stent Graft Icast [id number] - [id number] - [id number] Implanted:Qty : 1 on 04/14/2022 by Nnamdi King MD at OR [facility] N/A: Mesenteric Artery GETINGE : YOELT [id number] 02/21/2023 [id number] / [id number] / [id number] Description:implanted in SMA Stent [place] 3.0x15 Rx - [id number] Implanted:Qty : 1 on 11/12/2022 by Patrice Jose MD at CARDIAC LABS [facility] [employer] : VASCULAR [id number] 11/28/2023 [id number] / / [id number] documented as of this encounter Advance [...] the patient have Health Care Power of Electronics Parts Sales Representative? Yes, in chart and reviewed as current [...] patient or by statute hierarchy) Care Teams Bar Finish Operator Relationship Specialty Start Date End Date Courtney Restrepo MD [address] [place] [address] [place] [address] PCP - General Family Medicine 10/17/19 documented as of this encounter
--- OUTSIDE RECORDS SUMMARY | 2023-08-31 06:25 | External Medical Summary | Summary of Care ---
Author Name Unknown Organization [facility] Address [address] [place] [address] Phone [phone] Care Team Providers Care Assistant Pastry Chef Name Role Phone Courtney Restrepo MD Primary Care Prov ider Reason for Visit * Reason Onset Date Comments Advice 07/14/2023 Encounter Details Date Type Department Care Team (Late st Contact Info) Description 07/14/2023 Telephone Vascular Surg [facility] [address] [place] [address] Melly Singh PA-C [address] [place] [address] Advice Allergies Active Allergy Reactions [...] edema Nitroglycerin Hypotension 12/20/2018 Penicillins Nausea/vomiting 05/17/2007 [place] Hives 10/02/2018 Propoxyphene Edema face/lips/tongue,Hiv es 06/26/2009 [...] group C, by GOLD 2017 classification ([facility]) Inhale 1 puff as directed once a day 1 inhalation daily. Rinse mouth after every use. 60 Blister Dosing Unit 5 11/29/2022 Active NovoLOG FlexPen 100 UNIT/ML Subcutaneous Solution Pen-injector (insulin aspart)Indications:T ype 2 diabetes mellitus with hemoglobin A1c goal of less than 8.0% ([facility]) Units as per sliding scale 3 mL 3 02/04/2023 Active Insulin Glargine Solostar 100 UNIT/ML Subcutaneous Solution Pen-injector (Lantus SoloStar)Indications :Type 2 diabetes mellitus with hemoglobin A1c goal of less than 8.0% ([facility]) Inject 10 Units under the skin [...] A1c goal of less than 8.0% ([facility]) Test glucose once daily E11.9 100 [...] suspected opioid overdose. Seek medical help immediately. [email or web address] 1 mL 3 06/14/2023 Active Additional Information [...] n 07/14/2023 Dependent rubor 07/14/2023 Atherosclerosis of [place] artery of extremity Pre-ulcerative corn or [...] rinse after steroid. Test performed by Bibiana GREEN HOUSE MANAGER CPFT Old [place] (myocardial infarction) 02/21/2019 Bilateral carotid artery stenosis [...] osteoporosis 07/03/2018 Reactive depression 11/17/2017 Atherosclerosis of [place] co ronary artery of [place] heart without angina pectoris 07/22/2015 Overview: [...] rinse after steroid. Test performed by Bibiana GREEN HOUSE MANAGER CPFT GENERAL OSTEOARTHROSIS BMI 32.0-32.9,adult Tobacco [...] ISCHEMIC HRT DIS NOS Coronary atherosclerosis of [place] coronary artery 11/24/2016 Tobacco abuse 11/17/2017 [...] Can you e-mail prosthetic script and stump wood engraver script to: [email or web address]? That's the patient's daughter. She forgot the scripts today in the office. Thanks documented in this encounter Plan of Treatment Upcoming Encounters Date Type Department Care Team (Latest Contact Info) Description 07/18/2023 7:15 AM EDT Hospital Encounter [facility], OPERATING ROOM [facility], KALIE ADKINS [address] [place] [address] Nnamdi King MD [address] [place] [address] 07/18/2023 7:15 AM EDT - 07/18/2023 9:10 AM EDT Surgery OR [facility], OPERATING ROOM [facility] KALIE BARBARAALBER [address] [place] [address] Nnamdi King MD [address] [place] [address] IMAGING SUPERVISION & INTERPRETATION EXTREMITY UNILATERAL 08/01/2023 10:00 AM EDT Imaging Vascular Lab, [address] [place] [address] 08/01/2023 11:00 AM EDT [address] Lab, [address] [address] 08/01/2023 2:30 PM EDT Office Visit Pharmacy, [address] [place] [address] [place] [address] 08/09/2023 9:40 AM EDT Office Visit [address] [phone] Courtney Restrepo MD [address] [place] [address] [place] [address] 08/10/2023 11:30 AM EDT Office Visit Vascular Surgery, [address] [place] [address] Nnamdi King MD [address] [place] [address] 09/27/2023 9:40 AM EDT Office Visit [address] [phone] Courtney Restrepo MD [address] [place] [address] [place] [address] 10/10/2023 4:00 PM EDT Office Visit Nephrology, [facility] [address] [facility] [place] [address] Charla Potter MD [address] [facility] [place] [address] 10/12/2023 11:00 AM EDT Office Visit Cardiology, [facility] [address] [facility] [place] [address] Frantz Herrera MD [address] [place] [address] 12/07/2023 9:20 AM EDT Office Visit Family Medicine [address] [phone] Courtney Restrepo MD [address] [place] [address] [place] [address] Scheduled Procedures Name Priority Associated Diagnoses Date/Ti me IMAGING SUPERVISION & INTERP RETATION EXTREMITY UNILATERAL 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 ([facility]) 07/18/2023 7:15 AM EDT FEM/POP ARTERY REVASC W/ STENT+ANGIOPLASTY 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 ([facility]) 07/18/2023 7:15 AM EDT ESOPHAGOGASTRODUODENOSCOPY ( EGD), FLEXIBLE, TRANSORAL, DIAGNOSTIC Recall Pendleton's esophagus Health Maintenance Due Date Last Done Comments DISCUSS TOBACCO CESSATION (REFER TO SMARTSET #2221) 1949 Cologuard 1994 Fecal Occult Blood Test [...] D LEVEL ONCE IN A LIFETIME-USE SMARTSET# 08338 Completed 10/16/2021, 12/27/2018 Alpha-1 Antitrypsin Discontinued GARDASIL-HPV [...] this encounter Medical Devices Implanted Type Area Bench Assembler Electrical Device Identifier Shelf Expiration Date Model / Serial / Lot Stent Graft Icast [id number] - [id number] - [id number] Implanted:Qty : 1 on 04/14/2022 by Nnamdi King MD at OR [facility] N/A: Mesenteric Artery GETINGE : YOELT [id number] 02/21/2023 [id number] / [id number] / [id number] Description:implanted in SMA Stent [place] 3.0x15 Rx - [id number] Implanted:Qty : 1 on 11/12/2022 by Patrice Jose MD at CARDIAC LABS [facility] [employer] : VASCULAR [id number] 11/28/2023 [id number] / / [id number] documented as of this encounter Advance [...] the patient have Health Care Power of Needle Maker? Yes, in chart and reviewed as [...] patient or by statute hierarchy) Care Teams Assistant Pastry Chef Relationship Specialty Start Date End Date Courtney Restrepo MD [address] [place] [address] [place] [address] PCP - General Family Medicine 10/17/19 documented as of this encounter
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
--- OUTSIDE RECORDS SUMMARY | 2023-08-31 06:26 | External Medical Summary | Summary of Care ---
Author Name Unknown Organization [facility] Address [address] [place] [address] Phone [phone] Care Team Providers Care Registered Nurse Cardiac Name Role Phone Courtney Restrepo MD Primary Care Prov ider Reason for Visit * Reason Onset Date Comments case management 07/13/2023 Encounter Details Date Type Department Care Team (Late st Contact Info) Description 07/13/2023 Telephone Care Coordination and Integration [address] [place] [address] Lianna Mack RN [address] [place] [address] case management Allergies Active Allergy Reactions Criticality Noted Date [...] edema Nitroglycerin Hypotension 12/20/2018 Penicillins Nausea/vomiting 05/17/2007 [place] Hives 10/02/2018 Propoxyphene Edema face/lips/tongue,Hiv es 06/26/2009 [...] hemoglobin A1c goal of less than 8.0% ([facility]) Use to test glucose daily. E11.9 100 Each 5 11/29/2022 Active OneTouch Verio w/Device KitIndications:Type 2 diabetes mellitus with hemoglobin A1c goal of less than 8.0% ([facility]) Use to test glucose daily. E11.9 1 Kit 0 11/29/2022 Active Trelegy Ellipta 100-62.5-25 MCG/ACT Aerosol Powder Breath ActivatedIndications :COPD, group C, by GOLD 2017 classification ([facility]) Inhale 1 puff as directed once a day 1 inhalation daily. Rinse mouth after every use. 60 Blister Dosing Unit 5 11/29/2022 Active NovoLOG FlexPen 100 UNIT/ML Subcutaneous Solution Pen-injector (insulin aspart)Indications:T ype 2 diabetes mellitus with hemoglobin A1c goal of less than 8.0% ([facility]) Units as per sliding scale 3 mL 3 02/04/2023 Active Insulin Glargine Solostar 100 UNIT/ML Subcutaneous Solution Pen-injector (Lantus SoloStar)Indications :Type 2 diabetes mellitus with hemoglobin A1c goal of less than 8.0% ([facility]) Inject 10 Units under the [...] hemoglobin A1c goal of less than 8.0% ([facility]) Test glucose once daily E11.9 [...] suspected opioid overdose. Seek medical help immediately. [email or web address] 1 mL 3 06/14/2023 Active Additional Information [...] rinse after steroid. Test performed by [facility] EMERGENCY DEPARTMENT TECHNICIAN CPFT Old [place] (myocardial infarction) 02/21/2019 Bilateral [...] osteoporosis 07/03/2018 Reactive depression 11/17/2017 Atherosclerosis of squaxin co ronary artery of squaxin heart without angina pectoris 07/22/2015 Overview: Single [...] rinse after steroid. Test performed by [facility] EMERGENCY DEPARTMENT TECHNICIAN CPFT GENERAL OSTEOARTHROSIS BMI 32.0-32.9,adult Tobacco use [...] ISCHEMIC HRT DIS NOS Coronary atherosclerosis of squaxin coronary artery 11/24/2016 Tobacco abuse 11/17/2017 documented [...] Tobacco: Every Day Cigarettes Smokeless Tobacco: Never Comments:07/13/23 1 pack cigar ettes daily, declined pamphlet Alcohol Use Standard Drinks/Week [...] encounter Miscellaneous Notes * Telephone Encounter - Lianna Mack RN - 07/13/2023 1:10 PM EDT [employer] message sent to patient/daughter. documented in this encounter Plan of Treatment Upcoming Encounters Date Type Department Care Team (Late st Contact Info) Description 08/01/2023 2:30 PM EDT Office Visit Pharmacy, [address] [place] [address] [place] [address] 08/09/2023 9:40 AM EDT [place] [address] [place] [phone] Courtney Restrepo MD [address] [place] [address] [place] [address] 09/27/2023 9:40 AM EDT Office Visit [address] [place] [phone] Courtney Restrepo MD [address] [place] [address] [place] [address] 10/10/2023 4:00 PM EDT Office Visit Nephrology, [address] [place] [address] Charla Potter MD [address] [facility] [place] [address] 10/12/2023 11:00 AM EDT Office Visit [facility], [facility] [address] [facility] [place] [address] Frantz Herrera MD [address] [place] [facility] [place] [address] 12/07/2023 9:20 AM EDT Office Visit Family Medicine [address] [phone] Courtney Restrepo MD [address] [place] [address] [place] [phone] Scheduled Procedures Name Priority Associated Diagnoses Date/Ti [...] D LEVEL ONCE IN A LIFETIME-USE SMARTSET# [id number] Completed 10/16/2021, 12/27/2018 Alpha-1 Antitrypsin Discontinued GARDASIL-HPV [...] this encounter Medical Devices Implanted Type Area Railroad Car Loader Device Identifier Shelf Expiration Date Model / Serial / Lot Stent Graft Icast [id number] - [id number] - [id number] Implanted:Qty : 1 [place] 04/14/2022 [place] [facility] [place] Mesenteric Artery GETINGE : [id number] 02/21/2023 [id number] / [id number] / [id number] Description:implanted in SMA Stent [place] 3.0x15 Rx - [id number] Implanted:Qty : 1 on 11/12/2022 [place] Patrice [place] [facility] [place] [employer] [place]ASCULAR [id number] 11/28/2023 [id number] / / [id number] documented as of this encounter Advance [...] the patient have Health Care Power of Deburring Machine Operator? Yes, in chart and reviewed as [...] patient or by statute hierarchy) Care Teams Registered Nurse Cardiac Relationship Specialty Start Date End Date Courtney Restrepo MD [address] [place] [address] [place] [address] PCP - General Family Medicine 10/17/19 documented as of this encounter
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
--- OUTSIDE RECORDS SUMMARY | 2023-08-31 06:27 | External Medical Summary | Summary of Care ---
Author Name Unknown Organization [facility] Address [address] [place] [address] Phone [phone] Care Team Providers Care Oil Well Logger Name Role Phone Courtney Restrepo MD Primary Care Prov ider Encounter Details Date Type Department Care Team (Late st Contact Info) Description 07/13/2023 11:45 AM EDT Scheduled Telephone Care Coordination and Integration [address] [place] [address] Shivam Mckeon Counts Include [facility] Health Surgical Scheduler [address] [place], [place] [id number] Need for case management follow-up* Allergies Active Allergy Reactions Criticality Noted Date [...] edema Nitroglycerin Hypotension 12/20/2018 Penicillins Nausea/vomiting 05/17/2007 [place] Hives 10/02/2018 Propoxyphene Edema face/lips/tongue,Hiv es 06/26/2009 [...] At Discharge, Reported on 07/01/2023 OneTouch Apolinar Lancets 30GIndications:Type 2 diabetes mellitus [...] :COPD, group C, by GOLD 2017 classification (HCC) Inhale 1 puff as directed once a day 1 inhalation daily. Rinse mouth after every use. 60 Blister Dosing Unit 5 11/29/2022 Active NovoLOG FlexPen 100 UNIT/ML Subcutaneous Solution Pen-injector (insulin aspart)Indications:T ype 2 diabetes mellitus with hemoglobin A1c goal of less than 8.0% ([facility]) Units as per sliding scale 3 mL 3 02/04/2023 Active Insulin Glargine Solostar 100 UNIT/ML Subcutaneous Solution Pen-injector (Lantus SoloStar)Indications :Type 2 diabetes mellitus with hemoglobin A1c goal of less than 8.0% ([facility]) Inject 10 Units under the [...] than 8.0% ([facility]) Test glucose once daily E11.9 [...] suspected opioid overdose. Seek medical help immediately. [email or web address] Credit Card To Get Approved [email or web address] 1 mL 3 06/14/2023 Active Additional Information [...] rinse after steroid. Test performed by Bibiana FLAME BRAZING MACHINE OPERATOR CPFT Old [place] (myocardial infarction) 02/21/2019 Bilateral [...] osteoporosis 07/03/2018 Reactive depression 11/17/2017 Atherosclerosis of [place] co ronary artery of [place] heart without angina pectoris 07/22/2015 Overview: Single [...] rinse after steroid. Test performed by Bibiana FLAME BRAZING MACHINE OPERATOR CPFT GENERAL OSTEOARTHROSIS BMI 32.0-32.9,adult [...] ISCHEMIC HRT DIS NOS Coronary atherosclerosis of [place] coronary artery 11/24/2016 Tobacco abuse 11/17/2017 documented [...] as of this encounter Progress Notes * Lianna Mack RN - 07/13/2023 1:18 PM EDT Thank you Akin. I sent a [employer] message to patient/daughter. They can call [employer] number on her card and order dressings there OR they may even be ableto go to [facility] and miner pick dressings there and pay for them with the OTC card. If they had any issues with this, to let me know. Lianna * Shivam Mckeon [facility]uler - 07/13/2023 12:03 PM EDT Telemedicine visit: No [facility] Surgical Scheduler ([facility]) documentation: CHW follow up phone call for RNCM. Patient reports to be doing pretty well, however states she thinks she has the start of gangrene in her right foot, which she states has already been operated on. Patient states that this kind of makes her want to give up. Patient reports that she is out of her gauze wraps and large pads to wrap the stump on her left leg. She said she had been expecting them, but they never arrived. CHW will relay to the RNCM to address. Patient reports to being at her vascular surgeon's office at [facility] right now waiting to be checked. CHW suggested that she mention to the doctor that she is out of supplies, to see if they may beable to give her some supplies to last until she receives a new supply. Patient said she will try. Patient denies any other changes/concerns at this time. Akin Mckeon [facility] Worker Lead [place] - [place] [phone] Electronically signed by Shivam Mckeon Counts Include [facility] Health Surgical Scheduler at 07/13/2023 12:10 PM EDT documented in this encounter Plan of Treatment Upcoming Encounters Date Type Department Care Team (Late st Contact Info) Description 08/01/2023 2:30 PM EDT Office Visit Pharmacy, [address] [place] [address] [place] [address] 08/09/2023 9:40 AM EDT Office Visit Family [address] [phone] Courtney Restrepo MD [address] [place] [address] [place] [address] 09/27/2023 9:40 AM EDT Office Visit Family [address] [phone] Courtney Restrepo MD [address] [place] [address] [place] [address] 10/10/2023 4:00 PM EDT Office Visit Nephrology, [address] [place] [address] Charla Potter MD [address] [facility] [place] [address] 10/12/2023 11:00 AM EDT Office Visit Cardiology, [facility] [address] [place] [address] Frantz Herrera MD [address] [place] [address] [place] [address] 12/07/2023 9:20 AM EDT Office Visit Family [address] [phone] Courtney Restrepo MD [address] [place] [address] [place] [address] Scheduled Procedures Name Priority Associated Diagnoses Date/Ti me ESOPHAGOGASTRODUODENOSCOPY ( EGD), FLEXIBLE, TRANSORAL, DIAGNOSTIC Recall Pendleton's esophagus Health Maintenance Due Date Last Done Comments DISCUSS TOBACCO CESSATION (REFER TO SMARTSET #9451) 1949 Cologuard 1994 Fecal Occult Blood Test [...] D LEVEL ONCE IN A LIFETIME-USE SMARTSET# 10514 Completed 10/16/2021, 12/27/2018 Alpha-1 Antitrypsin Discontinued GARDASIL-HPV [...] this encounter Medical Devices Implanted Type Area Supervisor Ship Maintenance Services Device Identifier Shelf Expiration Date Model / Serial / Lot Stent Graft Icast [id number] - [id number] - [id number] Implanted:Qty : 1 on 04/14/2022 by Nnamdi King MD at OR [facility] [place] N/A: Mesenteric Artery GETINGE : MAANASTASIYAT [id number] 02/21/2023 [id number] / [id number] / [id number] Description:implanted in SMA Stent [place] 3.0x15 Rx - [id number] Implanted:Qty : 1 on 11/12/2022 by Patrice Jose MD at CARDIAC LABS [facility] [employer] : VASCULAR [id number] 11/28/2023 [id number] / / [id number] 2 documented as of this encounter Visit Diagnoses Diagnosis Need for case management follow-up- Primary documented in this encounter Advance Directives Latest [...] the patient have Health Care Power of Primary Education Professor? Yes, in chart and reviewed as current [...] patient or by statute hierarchy) Care Teams Oil Well Logger Relationship Specialty Start Date End Date Courtney Restrepo MD [address] [place] [address] [place] [address] PCP - General Family Medicine 10/17/19 documented as of this encounter
--- OUTSIDE RECORDS SUMMARY | 2023-08-31 06:27 | External Medical Summary | Summary of Care ---
Author Name Unknown Organization [facility] Address [address] [place] [address] Phone [phone] Care Team Providers Care Deputy Treasurer Name Role Phone Courtney Restrepo MD Primary Care Prov ider Encounter Details Date Type Department Care Team (Late st Contact Info) Description 04/11/2023 Telephone Family Medicine [address] [phone] Courtney Restrepo MD [address] [place] [address] [place] [address] Allergies Active Allergy Reactions Criticality Noted [...] edema Nitroglycerin Hypotension 12/20/2018 Penicillins Nausea/vomiting 05/17/2007 [place] Hives 10/02/2018 Propoxyphene Edema face/lips/tongue,Hiv es 06/26/2009 documented as of this encounter (statuses as of 07/11/2023) Medications Medication Sig Dispensed Refills Start Date [...] At Discharge, Reported on 07/01/2023 OneTouch Apolinar Brown 30GIndications:Type 2 diabetes mellitus with hemoglobin A1c goal of less than 8.0% ([facility]) Use to test glucose daily. E11.9 100 Each 5 11/29/2022 Active OneTouch Verio w/Device KitIndications:Type 2 diabetes mellitus with hemoglobin A1c goal of less than 8.0% ([facility]) Use to test glucose daily. E11.9 [...] and evening meals. (Not TUMS) 0 Active documented as of this encounter (statuses as of 07/11/2023) Active Problems Problem Noted Date Diagnosed Date Status post below-knee amputation of left lower extremity 06/29/2023 S/P AKA (above knee amputation), left 06/07/2023 Other disorders of phosphorus metabolism 023 Pathological fracture of millie tebra due to [...] and rinse after steroid. Test performed by Bbiiana PURCHASING CLERK CPFT Old [place] (myocardial infarction) 02/21/2019 Bilateral [...] osteoporosis 07/03/2018 Reactive depression 11/17/2017 Atherosclerosis of nome co ronary artery of nome heart without angina pectoris 07/22/2015 Overview: Single [...] rinse after steroid. Test performed by Bibiana PURCHASING CLERK CPFT GENERAL OSTEOARTHROSIS BMI 32.0-32.9,adult Tobacco use disorder Hyperlipidemia with target LDL less than 70 Overview: ICD-10 update of inactive term RSD upper limb Overview: left arm Generalized anxiety disorder documented as of this encounter (statuses as of 07/11/2023) Resolved Problems Problem Noted Date Diagnosed Date Resolved Date PRAKASH (acute kidney injury) 01/08/2023 Systolic congestive [...] ISCHEMIC HRT DIS NOS Coronary atherosclerosis of nome coronary artery 11/24/2016 Tobacco abuse 11/17/2017 documented as of this encounter (statuses as of 07/11/2023) Immunizations Name Administration Dates Next Due COVID-19 [...] Date Smoking Tobacco: Every Day Cigarettes 0.3 61.9 Started: 1962 Smokeless Tobacco: Never Comments:04/06/23 4 [...] No 01/08/2023 documented as of this encounter Plan of Treatment Upcoming Encounters Date Type Department Care Team (Late st Contact Info) Description 07/12/2023 10:00 AM EDT Office Visit Family Medicine [address] [phone] Courtney Restrepo MD [address] [place] [address] [place] [address] 07/13/2023 12:50 PM EDT Office Visit Vascular Surgery, [facility] [address] [place] [address] Everett Erickson MD [address] [place] [address] 09/27/2023 9:40 AM EDT Office Visit Family Medicine [address] [phone] Courtney Restrepo MD [address] [place] [address] [place] [address] 10/10/2023 4:00 PM EDT Office Visit Nephrology, [address] [place] [address] Charla Potter MD [address] [place] [address] 12/07/2023 9:20 AM EDT Office Visit Family [address] [phone] Courtney Restrepo MD [address] [place] [address] [place] [address] Scheduled Procedures Name Priority Associated Diagnoses Date/Ti [...] 06/03/2021, Additional history exists Mammogram 05/19/2024 05/20/2023, 010 08/2021, 05/12/2017, Additional history exists O2 ASSESSMENT [...] D LEVEL ONCE IN A LIFETIME-USE SMARTSET# 32528 Completed 10/16/2021, 12/27/2018 Alpha-1 Antitrypsin Discontinued GARDASIL-HPV [...] this encounter Medical Devices Implanted Type Area Regional Program Manager Device Identifier Shelf Expiration Date Model / Serial / Lot Stent Graft Icast [id number] - [id number] - [id number] Implanted:Qty : 1 on 04/14/2022 by Nnamdi King MD [place] [facility] [place]/A: Mesenteric Artery GETINGE : VITOR [id number] 02/21/2023 [id number] / [id number] / [id number] Description:implanted in SMA Stent [place] 3.0x15 Rx - [id number] Implanted:Qty : 1 on 11/12/2022 by Patrice Jose MD at [facility] [employer] : VASCULAR [id number] 11/28/2023 [id number] / / [id number] 2 documented as of this encounter Advance [...] the patient have Health Care Power of Collector? Yes, in chart and reviewed as current [...] patient or by statute hierarchy) Care Teams Deputy Treasurer Relationship Specialty Start Date End Date Courtney Restrepo MD [address] [place] [address] [place] [address] PCP - General Family Medicine 10/17/19 documented as of this encounter
--- OUTSIDE RECORDS SUMMARY | 2023-08-31 06:27 | External Medical Summary | Summary of Care ---
Author Name Unknown Organization [facility] Address [address] [place] [address] Phone [phone] Care Team Providers Care Bark Scaler Name Role Phone Courtney Restrepo MD Primary Care Prov ider Encounter Details Date Type Department Care Team (Late st Contact Info) Description 07/13/2023 11:45 AM EDT Scheduled Telephone Care Coordination and Integration [address] [place], [place] [address] Shivam Mckeon [facility] Health Coke Production Heater [address] [place] [address] Allergies Active Allergy Reactions Criticality [...] edema Nitroglycerin Hypotension 12/20/2018 Penicillins Nausea/vomiting 05/17/2007 [place] Hives 10/02/2018 Propoxyphene Edema face/lips/tongue,Hiv es 06/26/2009 [...] suspected opioid overdose. Seek medical help immediately. [email or web address] 1 mL 3 06/14/2023 Active Additional Information [...] rinse after steroid. Test performed by Bibiana ENGINE DISPATCHER CPFT Old [place] (myocardial infarction) 02/21/2019 Bilateral carotid artery stenosis [...] osteoporosis 07/03/2018 Reactive depression 11/17/2017 Atherosclerosis of [place] co ronary artery of [place] heart without angina pectoris 07/22/2015 Overview: Single [...] rinse after steroid. Test performed by Bibiana ENGINE DISPATCHER CPFT GENERAL OSTEOARTHROSIS BMI 32.0-32.9,adult Tobacco use [...] ISCHEMIC HRT DIS NOS Coronary atherosclerosis of [place] coronary artery 11/24/2016 Tobacco abuse 11/17/2017 documented [...] Progress Notes * Shivam Mckeon [facility] Coke Production Heater - 07/13/2023 12:03 PM EDT Telemedicine visit: No [facility] Coke Production Heater ([facility]) documentation: CHW follow up phone call [...] being at her vascular surgeon's office at [facility] right now waiting to be checked. CHW suggested that she mention to the doctor that she is out of supplies, to see if they may beable to give her some supplies to last until she receives a new supply. Patient said she will try. Patient denies any other changes/concerns at this time. Akin Mckeon Community Health Worker Lead [place]ESS[place] - [place] [phone] documented in this encounter Plan of Treatment Upcoming Encounters Date Type Department Care Team (Late st Contact Info) Description 07/13/2023 12:50 PM EDT Office Visit Vascular Surgery, [facility] [address] [facility] [place] [address] Everett Erickson MD [address] [facility] [place] [id number] 08/01/2023 2:30 PM EDT Office Visit Pharmacy, [address] [place] [address] [place] [address] 08/09/2023 9:40 AM EDT Office Visit [address] [phone] Courtney Restrepo MD [address] [place] [address] [place] [address] 09/27/2023 9:40 AM EDT Office Visit [address] [phone] Courtney Restrepo MD [address] [place] [address] [place] [address] 10/10/2023 4:00 PM EDT Office Visit Nephrology, [facility] [address] [facility] [place] [address] Charla Potter MD [address] [place] [address] 10/12/2023 11:00 AM EDT Office Visit Cardiology, [facility] [address] [facility] [place] [address] Frantz Herrera MD [address] [place] [address] 12/07/2023 9:20 AM EDT Office Visit [address] [phone] Courtney Restrepo MD [address] [place] [address] [place] [address] Scheduled Procedures Name Priority Associated Diagnoses Date/Ti me ESOPHAGOGASTRODUODENOSCOPY ( EGD), FLEXIBLE, TRANSORAL, DIAGNOSTIC Recall Pendleton's esophagus Health Maintenance Due Date Last Done Comments DISCUSS TOBACCO CESSATION (REFER TO SMARTQUOC #0771) 1949 Cologuard 1994 Fecal Occult Blood Test [...] D LEVEL ONCE IN A LIFETIME-USE SMARTSET# 69417 Completed 10/16/2021, 12/27/2018 Alpha-1 Antitrypsin Discontinued GARDASIL-HPV [...] this encounter Medical Devices Implanted Type Area Management Analyst Device Identifier Shelf Expiration Date Model / Serial / Lot Stent Graft Icast [id number] - [id number] - [id number] Implanted:Qty : 1 on 04/14/2022 by Nnamdi King MD [place] [facility] [place] N/A: Mesenteric Artery GETINGE : VITOR [id number] 02/21/2023 83530 / [id number] / [id number] Description:implanted in SMA Stent [place] 3.0x15 Rx - [id number] Implanted:Qty : 1 on 11/12/2022 by Patrice Jose MD at [facility] [place] [facility] [employer] : VASCULAR [id number] 11/28/2023 [id number] / / [id number] documented as of this encounter Advance [...] the patient have Health Care Power of [employer] Officer? Yes, in chart and reviewed as [...] patient or by statute hierarchy) Care Teams Bark Scaler Relationship Specialty Start Date End Date Courtney Restrepo MD [address] [place] [address] [place] [address] PCP - General Family Medicine 10/17/19 documented as of this encounter
--- OUTSIDE RECORDS SUMMARY | 2023-08-31 06:27 | External Medical Summary ---
Author Name Unknown Address Unknown Organization K01:[facility] - [address] [place] [id number] Laboratory Report Ordering Provider Test Date Status NAYE ELLISON 07/12/2023 10:38:36 Final Observation Date Value Abnormality Reference (Units) Status Bacteria identified in Specimen by Culture 07/12/2023 10:38:36 No significant growth Final Test: Culture, Urine, Quanti tative
Specimen Source: Urine, Clean Catch
Specimen Type: Urine
Specimen Date: 07/12/2023 10:38 AM
Result Date: 07/13/2023 4:37 PM
Result Status: Final result
Resulting Lab: [facility]
[address]
[facility] [address]

CULTURE

No significant growth

null Performing Location [facility] - [address] [facility] [address]
--- OUTSIDE RECORDS SUMMARY | 2023-08-31 06:27 | External Medical Summary | Summary of Care ---
Author Name Unknown Organization [facility] Address [address] [place] [address] Phone [phone] Care Team Providers Care Mold Carrier Name Role Phone Courtney Restrepo MD Primary Care Prov ider Reason for Visit * Reason Comments Dosage Adjustment In Person (Anticoag Cl inic) Diabetes Education * Evaluate & Treat - Unlimited Visits (Within 10 days (routine)) - Authorized Specialty Diagnoses / Procedures Referred By Contgail t Referred To Contact Pharmacist / Pharmacy Diagnoses 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) Courtney Restrepo MD [address] [place] [address] [place] [address] Referral ID Status Reason Start Date Expiration Date Visits Requested Visits Authorized [id number] Authorized Specialty Services Required 07/12/2023 99 99 Encounter Details Date Type Department Care Team (Late st Contact Info) Description 07/12/2023 3:00 PM EDT Office Visit Pharmacy, [address] [place] [address] [place] [address] Type 2 diabetes mellitus with hemoglobin A1c goal of less than 8.0% ([facility])* Allergies Active Allergy Reactions Criticality Noted Date [...] edema Nitroglycerin Hypotension 12/20/2018 Penicillins Nausea/vomiting 05/17/2007 [place] Hives 10/02/2018 Propoxyphene Edema face/lips/tongue,Hiv es 06/26/2009 documented as of this encounter (statuses as of 07/12/2023) Medications Medication Sig Dispensed Refills Start Date [...] :COPD, group C, by GOLD 2017 classification ([facility]) Inhale 1 puff as directed once a [...] opioid overdose. Seek medical help immediately. http://youtu.be/- [email or web address] 1 mL 3 06/14/2023 Active Additional Information [...] as of this encounter (statuses as of 07/12/2023) Active Problems Problem Noted Date Diagnosed Date [...] and rinse after steroid. Test performed by [facility] [employer] Old [place] (myocardial infarction) 02/21/2019 Bilateral carotid artery stenosis [...] osteoporosis 07/03/2018 Reactive depression 11/17/2017 Atherosclerosis of [place] co ronary artery of [place] heart without angina pectoris 07/22/2015 Overview: [...] rinse after steroid. Test performed by Bibiana [employer] GENERAL OSTEOARTHROSIS BMI 32.0-32.9,adult Tobacco use disorder Hyperlipidemia with target LDL less than 70 Overview: ICD-10 update of inactive term RSD upper limb Overview: left arm Generalized anxiety disorder documented as of this encounter (statuses as of 07/12/2023) Resolved Problems Problem Noted Date Diagnosed Date [...] ISCHEMIC HRT DIS NOS Coronary atherosclerosis of [place] coronary artery 11/24/2016 Tobacco abuse 11/17/2017 documented as of this encounter (statuses as of 07/12/2023) Immunizations Name Administration Dates Next Due COVID-19 [...] of this encounter Progress Notes * Zenia Goldbreg, [facility] - 07/12/2023 2:55 PM EDT Medication Therapy Disease Management [facility] - Diabetes Management Progress Note Carlotta Khan, identified by name and date of , is a 72 year old female being seen for diabetes management/education. Patient presents for initial diabetic visit. Patient presents with granddaughter/caregiver, Romelia Past Medical History: Diagnosis Date Asthma, allergic Benign neoplasm of colon 01/2009 3 mm tubular adenoma in sigmoid, f/u colonoscopy in 5 yrs BMI 32.0-32.9,adult Calculus of kidney spontanteous passage Cardiac arrest (HCC) 11/04/2022 history Carotid artery stenosis, asymptomatic left Carotid Stenosis, infarct w/in 8 wks 08/20/2008 Cellulitis of right foot 07/02/2019 [facility] for severe pain, cellulitis right foot Cerebrovascular Dz, 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 Pt with hx of embolic stroke. L hemiplegia Chronic ischemic heart disease Contusion of hand, right 05/21/2016 Coronary atherosclerosis of [place] coronary artery DM type 2, goal A1c below 7 1994 after being on steroids for a while Fracture of three ribs on left side 02/25/2015 left 3,4,5 Generalized anxiety disorder Generalized osteoarthritis Hidradenitis had skin grafts under both arms by Dr Burrell Hyperlipidemia LDL goal < 70 Hypoxia 02/28/2015 [place], related to hypoventilation from rib fx pain Intracerebral hemorrhage (HCC) 07/03/2008 Need for hepatitis C screening test 08/08/2014 negative Obesity, BMI not known used to weigh 280 Old myocardial infarct x 2 with stent placement OTHER LATE EFFECTS CEREBROVASCULAR DISEASE 07/03/2008 RSD upper limb left arm Scabies 06/07/2017 Treated in [place] ER. Senile osteoporosis 07/03/2018 high risk Simple or chronic serous otitis media Chronic Serous Otitis Media Spasm of muscle 11/05/2010 Stroke, acute, within 8 weeks 05/30/2008 L hemiplegia Tobacco use disorder Ulnar nerve lesion neuropathy UNSPEC. HEMIPL. AND HEMIPARESIS AFFECTING NONDOMINANT SIDE 07/03/2008 Unspecified constipation 07/03/2008 Diagnosis: Type 2 Age of diabetes diagnosis: About 29 years Family history of diabetes: Did not discuss Microvascular complications: retinopathy, neuropathy, and nephropathy Macrovascular complications: dyslipidemia coronary artery disease peripheral vascular disease cerebrovascular disease History of Treatment Barriers: Lifestyle: Recent BKA Therapy considerations: Noted above Medication: Discussed below DIABETES: Current diabetic medications: Novolog 8 units before meals Lantus 11 units at bedtime eGFR >90 as of 06/15/23 Medication Injection Site: Arm Lifestyle: Diet: unchanged Glucose Review/SMBG: Not available Hypoglycemia: Does your blood sugar go below 70 mg/dL? Denies Hyperglycemia symptoms present: none Recent Labs Units 06/08/23 0536 12/10/22 1318 09/08/22 1438 HEMOGLOBIN A1C - [facility] % 9.1* 7.1* 6.7* Recent Labs Units 06/15/23 0720 06/14/23 0601 06/13/23 0723 ESTIMATED GLOMERULAR FILTRATION RATE - [facility] mL/min >90 >90 78 CREATININE - [facility] mg/dL 0.7 0.6 0.8 HYPERTENSION: Patient on ACEi/ARB: no, deferred BP Readings from Last 3 Encounters: 07/12/23 120/60 06/29/23 138/60 06/23/23 110/60 Blood pressure at goal: yes HYPERLIPIDEMIA: Patient is taking moderate or high intensity statin: no, deferred HEALTH MAINTENANCE REVIEW: Health Maintenance Due Topic Date Due DISCUSS TOBACCO CESSATION (REFER TO SMARTSET #2926) Never done *ADVANCE DIRECTIVE NOT ON FILE Never done [place]'s Esophagus Surveilance 01/19/2022 COVID-19 Vaccine ( season) 2022 Diabetic Eye Exam 06/05/2023 Colorectal Cancer Screening 09/28/2023 ASSESSMENT & PLAN: ICD-10-CM 1. Type 2 diabetes mellitus with hemoglobin A1c goal of less than 8.0% ([facility]) E11.9 Considerations: Left BKA on 06/07/23 d/t severe PAD Lengthy discussion on diabetes pathophysiology, role of diet and macronutrients on blood glucose control and benefits of exercise. BG Readings - Blood sugars not available. Patient and granddaughter state she is testing x4 times day. Lengthy discussion regarding CGM tx and benefits. After discussion, patient agreeable to trial. Will plan to place Dexcom G7 order through [facility]. Medications - Reviewed current regimen. Patient notes that she was on Glipizide and Jardiance in the past. Feels these worked better than insulin. Per chart review, these were likely stopped during hospitalization. Discussed that with recent A1c, will plan to continue with insulin at this time. Canlook towards the addition of SGLT2 and GLP-1 tx in the future. Of note, patient had been injecting insulin into her arm. Planning to switch to stomach to help with absorption. Diet, Exercise, Lifestyle - Patient had recent left below knee amputation last month. Recovering well. Patient is agreeable to SMBG 4 time(s) daily. Patient aware to contact clinic if any hypoglycemia before next visit. MEDICATION CHANGES: no change Diabetic Medications: Novolog 8 units before meals Lantus 11 units at bedtime eGFR >90 as of 06/15/23 HEALTH MAINTENANCE INTERVENTIONS: Deferred d/t time constraints FOLLOW UP: Return to clinic in 3 weeks 08/01/2023 Zenia Goldberg RPh Clinical Pharmacist - Supervisor Airplane Flight Attendant Medication Therapy Management Clinic 07/12/2023, 2:55 PM documented in this encounter Plan of Treatment Upcoming Encounters Date Type Department Care Team (Late st Contact Info) Description 07/13/2023 10:00 AM EDT Imaging Radiology [address] [place] [address] 07/13/2023 10:15 AM EDT Imaging Radiology [address] [place] [address] 07/13/2023 12:50 PM EDT Office Visit Vascular Surgery, [address] [place] [address] Everett Erickson MD [address] [place] [address] [place] [address] 08/01/2023 2:30 PM EDT Office Visit Pharmacy, [address] [place] [address] [place] [address] 08/09/2023 9:40 AM EDT Office Visit [address] [phone] Courtney Restrepo MD [address] [place] [address] [place] [address] 09/27/2023 9:40 AM EDT [address] [phone] Courtney Restrepo MD [address] [place] [address] [place] [address] 10/10/2023 4:00 PM EDT Office Visit Nephrology, [address] [place] [address] Charla Potter MD [address] [facility] [place] [id number] 10/12/2023 11:00 AM EDT Office Visit Cardiology, [facility] [address] [place] [address] Frantz Herrera MD [address] [facility], [place] [address] 12/07/2023 9:20 AM EDT Office Visit Family Medicine [address] [phone] Courtney Restrepo MD [address] [place] [address] [place] [address] Scheduled Procedures Name Priority [...] D LEVEL ONCE IN A LIFETIME-USE SMARTSET# [id number] Completed 10/16/2021, 12/27/2018 Alpha-1 Antitrypsin Discontinued GARDASIL-HPV [...] this encounter Medical Devices Implanted Type Area Flat Breakdown Processor Device Identifier Shelf Expiration Date Model / Serial / Lot Stent Graft Icast [id number] - [id number] - [id number] Implanted:Qty : 1 on 04/14/2022 by Nnamdi King MD at [facility] N/A: Mesenteric Artery GETINGE : VITOR [id number] 02/21/2023 [id number] / [id number] / [id number] Description:implanted in SMA Stent Howie 3.0x15 Rx - [id number] Implanted:Qty : 1 on 11/12/2022 by Patrice Jose MD at [facility]ARDI[facility] [employer] : VASCULAR [id number] 11/28/2023 [id number] / / [id number] documented as of this encounter Visit Diagnoses Diagnosis Type 2 diabetes mellitus with hemoglobin A1c goal of less than 8.0% ([facility])- Primary documented in this encounter Advance Directives [...] the patient have Health Care Power of Digital Imaging Specialist? Yes, in chart and reviewed as [...] Relationship Healthcare Agent Relationshi p Communication [place] Adult Child Health Care Repr esentative (appointed verbally by patient or by statute hierarchy) Care Teams Mold Carrier Relationship Specialty Start Date End Date Courtney Restrepo MD [address] [place] [address] [place] [address] PCP - General Family Medicine 10/17/19 documented as of this encounter
--- OUTSIDE RECORDS SUMMARY | 2023-08-31 06:28 | External Medical Summary | Summary of Care ---
Author Name Unknown Organization [facility] Address [address] [place] [address] Phone [phone] Care Team Providers Care Hair Spring Cutter Name Role Phone Courtney Penaloza MD Primary Care Prov ider Reason for Visit * Reason Onset Date Comments Medication Refill 07/06/2023 Encounter Details Date Type Department Care Team (Late st Contact Info) Description 07/06/[address] [phone] Courtney Penaloza MD [address] [place], [place] [address] [phone] Allergies Active Allergy Reactions Criticality Noted Date [...] edema Nitroglycerin Hypotension 12/20/2018 Penicillins Nausea/vomiting 05/17/2007 [place] Hives 10/02/2018 Propoxyphene Edema face/lips/tongue,Hiv es 06/26/2009 documented as of this encounter (statuses as of 07/07/2023) Medications Medication Sig Dispensed Refills Start Date [...] s:COPD, group C, by GOLD 2017 classification ([facility]) Inhale 1 puff as directed once a day 1 inhalation daily. Rinse mouth after every use. 60 Blister Dosing Unit 5 3 Active NovoLOG FlexPen 100 UNIT/ML Subcutaneous Solution Pen-injector (insulin aspart)Indications: Type 2 diabetes mellitus with hemoglobin A1c goal of less than 8.0% ([facility]) Units as per sliding scale 3 mL 3 3 Active Insulin Glargine Solostar 100 UNIT/ML Subcutaneous Solution Pen-injector (Lantus SoloStar)Indication s:Type 2 diabetes mellitus with hemoglobin A1c goal of less than 8.0% ([facility]) Inject 10 Units under the skin [...] of less than 8.0% ([facility]) Test glucose once daily E11.9 100 [...] bedtime. 270 Tablet 0 4 07/14/19 24 Active Naloxone HCl 0.4 MG/ML Injection Solution (Narcan) Inject 1mL into a large muscle for suspected opioid overdose. Seek medical help immediately. [email or web address] 1 mL 3 4 Active Additional Information [...] before bedtime. 60 Capsule 3 4 Active Sennosides-Docusate Sodium 8.6-50 MG [...] for muscle spasm. 30 Tablet 0 4 07/06/19 24 Discontinu ed(Refill) documented as of this encounter (statuses as of 07/07/2023) Active Problems Problem Noted Date Diagnosed Date [...] rinse after steroid. Test performed by Bibiana PARK MANAGER CPFT [place] (myocardial infarction) 02/21/2019 Bilateral [...] osteoporosis 07/03/2018 Reactive depression 11/17/2017 Atherosclerosis of [place] co ronary artery of [place] heart without angina pectoris 07/22/2015 Overview: Single [...] rinse after steroid. Test performed by Bibiana P[employer] MA[employer] GENERAL OSTEOARTHROSIS BMI 32.0-32.9,adult Tobacco use disorder Hyperlipidemia with target LDL less than 70 Overview: ICD-10 update of inactive term RSD upper limb Overview: left arm Generalized anxiety disorder documented as of this encounter (statuses as of 07/07/2023) Resolved Problems Problem Noted Date Diagnosed Date [...] ISCHEMIC HRT DIS NOS Coronary atherosclerosis of [place] coronary artery 11/24/2016 Tobacco abuse 11/17/2017 documented as of this encounter (statuses as of 07/07/2023) Immunizations Name Administration Dates Next Due COVID-19 [...] Telephone Encounter - Courtney Penaloza MD - 07/07/2023 10:41 AM EDTSigned Prescriptions: Disp Refills Baclofen 5 MG Oral Tablet (Lioresal) 30 Tab*0 Sig: Take 1 Tablet by mouth in the morning and 1 Tablet at noon and 1 Tablet before bedtime. As needed for muscle spasm. Authorizing Provider: COURTNEY PENALOZA * Telephone Encounter - Jose Enrique Guo LPN - 07/07/2023 7:43 AM EDTPending Prescriptions: Disp Refills Baclofen 5 MG Oral Tablet (Lioresal) 30 Tab*0 Sig: Take 1 Tablet by mouth in the morning and 1 Tablet at noon and 1 Tablet before bedtime. As needed for muscle spasm. * Telephone Encounter - Jose Enrique Guo LPN - 07/07/2023 7:43 AM EDT Pending Prescriptions: Disp Refills Baclofen 5 MG Oral Tablet (Lioresal) 30 Tab*0 Sig: Take 1 Tablet by mouth in the morning and 1 Tablet at noon and 1 Tablet before bedtime. As needed for muscle spasm. Last Visit: 06/23/2023 (in office), 11/29/2022 (telemedicine) Next Visit: 09/27/2023 Last date the medication was ordered: 06/23/2023 Patient Active Problem List Diagnosis Code Moderate persistent asthma without complication J45.40 GENERAL OSTEOARTHROSIS M15.9 Cerebrovascular disease, arteriosclerotic, post-stroke I67.2, Z86.73 ADVANCE DIRECTIVE INFORMATION BMI 32.0-32.9,adult Z68.32 Tobacco use disorder F17.200 Hyperlipidemia with target LDL less than 70 E78.5 RSD upper limb G90.519 Type 2 diabetes mellitus with hemoglobin A1c goal of less than 8.0% ([facility]) E11.9 Controlled substance agreement signed Z79.899 Generalized anxiety disorder F41.1 Atherosclerosis of [place] coronary artery of [place] heart without angina pectoris I25.10 Reactive depression F32.9 Senile osteoporosis M81.0 PVD (peripheral vascular disease) ([facility]) I73.9 Iron deficiency anemia due to chronic blood loss D50.0 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 K22.70 Chronic superficial gastritis with bleeding K29.31 Gastrointestinal hemorrhage with melena K92.1 Lung nodules R91.8 Moderate mitral regurgitation I34.0 [place] (myocardial infarction) I25.2 Bilateral carotid artery stenosis I65.23 DM type 2 with diabetic peripheral neuropathy ([facility]) E11.42 Right hand tendonitis M77.8 Generalized arthritis M19.90 Hand arthritis M19.049 Centrilobular emphysema ([facility]) J43.2 Polyneuropathy in other diseases classified elsewhere ([facility]) G63 Superior mesenteric artery stenosis ([facility]) 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 ([facility]) I77.1 Major depressive disorder, recurrent, unspecified ([facility]) F33.9 Non-proliferative diabetic retinopathy, both eyes ([facility]) E11.3293 Recurrent major depressive disorder, in partial remission ([facility]) F33.41 Mesenteric ischemia, chronic ([facility]) K55.1 COPD, group D, by GOLD 2017 classification ([facility]) J44.9 Chronic ischemic heart disease I25.9 Advanced directives, counseling/discussion Z71.89 Type 2 diabetes mellitus with peripheral artery disease ([facility]) E11.51 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- dominant side ([facility]) I69.354 Wound drainage T14.8XXA 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 History of cardiac arrest Z86.74 Shock ([facility]) R57.9 Lactic acidosis E87.20 Transaminitis R74.01 Encephalopathy acute G93.40 Pathological fracture of vertebra due to osteoporosis with routine healing, subsequent encounter M80.08XD Other disorders of phosphorus metabolism E83.39 S/P AKA (above knee amputation), left ([facility]) Z89.612 Status post below-knee amputation of left lower extremity ([facility]) Z89.512 Labs: Lab Results Component Value Date/Time CREATININE [...] - [facility] 5.8 (H) 12/27/2018 01:41 PM * Telephone Encounter - Adriana Pinto LPN - 07/06/2023 4:22 PM EDT Pt fell out of bed 2 nights ago and landed on floor. She hit her head and caused skin tear to left arm. No bump on her head. Skin tear on arm will not stop bleeding. Bp 108/51 yesterday. BP 123/67 checked while on phone granddaughter checked. Called office spoke with Damaris advised to send pt to [facility] by Dr Waldemar Morejon. Pt verbalized understanding, Granddaughter will take her to [facility]. Also pt would like refill on baclofen. Pending Prescriptions: Disp Refills Baclofen 5 MG Oral Tablet (Lioresal) 30 Tab*0 Sig: Take 1 Tablet by mouth in the morning and 1 Tablet at noon and 1 Tablet before bedtime. As needed for muscle spasm. Last Visit: 06/23/2023 (in office), 11/29/2022 (telemedicine) Next Visit: 09/27/2023 Last date the medication was ordered: 06/23/23 Patient Active Problem List Diagnosis Code Moderate persistent asthma without complication J45.40 GENERAL OSTEOARTHROSIS M15.9 Cerebrovascular disease, arteriosclerotic, post-stroke I67.2, Z86.73 ADVANCE DIRECTIVE INFORMATION BMI 32.0-32.9,adult Z68.32 Tobacco use disorder F17.200 Hyperlipidemia with target LDL less than 70 E78.5 RSD upper limb G90.519 Type 2 diabetes mellitus with hemoglobin A1c goal of less than 8.0% ([facility]) E11.9 Controlled substance agreement signed Z79.899 Generalized anxiety disorder F41.1 Atherosclerosis of [place] coronary artery of [place] heart without angina pectoris I25.10 Reactive depression F32.9 Senile osteoporosis M81.0 PVD (peripheral vascular disease) ([facility]) I73.9 Iron deficiency anemia due to chronic blood loss D50.0 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 K22.70 Chronic superficial gastritis with bleeding K29.31 Gastrointestinal hemorrhage with melena K92.1 Lung nodules R91.8 Moderate mitral regurgitation I34.0 [place] (myocardial infarction) I25.2 Bilateral carotid artery stenosis I65.23 DM type 2 with diabetic peripheral neuropathy ([facility]) E11.42 Right hand tendonitis M77.8 Generalized arthritis M19.90 Hand arthritis M19.049 Centrilobular emphysema ([facility]) J43.2 Polyneuropathy in other diseases classified elsewhere ([facility]) G63 Superior mesenteric artery stenosis ([facility]) 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 ([facility]) I77.1 Major depressive disorder, recurrent, unspecified ([facility]) F33.9 Non-proliferative diabetic retinopathy, both eyes ([facility]) E11.3293 Recurrent major depressive disorder, in partial remission ([facility]) F33.41 Mesenteric ischemia, chronic ([facility]) K55.1 COPD, group D, by GOLD 2017 classification ([facility]) J44.9 Chronic ischemic heart disease I25.9 Advanced directives, counseling/discussion Z71.89 Type 2 diabetes mellitus with peripheral artery disease ([facility]) E11.51 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- dominant side ([facility]) I69.354 Wound drainage T14.8XXA 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 History of cardiac arrest Z86.74 Shock ([facility]) R57.9 Lactic acidosis E87.20 Transaminitis R74.01 Encephalopathy acute G93.40 Pathological fracture of vertebra due to osteoporosis with routine healing, subsequent encounter M80.08XD Other disorders of phosphorus metabolism E83.39 S/P AKA (above knee amputation), left ([facility]) Z89.612 Status post below-knee amputation of left lower extremity ([facility]) Z89.512 Labs: Lab Results Component Value Date/Time CREATININE [...] Team (Late st Contact Info) Description 07/20/2023 11:30 AM EDT Office Visit Vascular Surgery, [facility] [place] [address] [facility] [place] [address] Kyle Olivares PA-C [address] [facility] [address] 09/27/2023 9:40 AM EDT Office Visit Family [address] [phone] Courtney Penaloza MD [address] [place] [address] [place] [address] 10/10/2023 4:00 PM EDT Office Visit Nephrology, [address] [place] [address] Charla Ptoter MD [address] [facility] [phone] 12/07/2023 9:20 AM EDT Office Visit Family Medicine [address] [place] [phone] Courtney Penaloza MD [address] [place] [address] [place] [address] Scheduled Procedures Name Priority Associated Diagnoses Date/Ti me ESOPHAGOGASTRODUODENOSCOPY ( EGD), FLEXIBLE, TRANSORAL, DIAGNOSTIC Recall Pendleton's esophagus Health Maintenance Due Date Last Done Comments DISCUSS TOBACCO CESSATION (REFER TO SMARTSET #3291) 1950 *ADVANCE DIRECTIVE NOT ON FILE 06/28/2020 Pendleton's Esophagus Surveilance 01/19/2022 01/19/2019, 09/27/2018, 09/27/2018 COVID-19 Vaccine ( season) 2022 07/14/2021, 08/12/2020, 07/15/2020 Diabetic Eye Exam 06/05/2023 06/04/2022 (No t indicated), 01/14/2021, 11/07/2019, Additional history exists DXA Scan 07/22/2023 07/21/2021, 07/10/2018 Diabetic Foot Exam 09/09/2023 09/08/2022, 0 11/17/2021, 01/14/2021, Additional history exists COLONOSCOPY-EVERY 5 YRS AGES 18-100 09/28/2023 09/27/2018, 09/27/2018, 07/13/2018, Additional history exists Influenza Vaccine (FLU shot) (Season Ended) 2023 [...] Vaccine: 65+ Years Completed 10/27/2015, 08/08/2014, 05/30/2008 VITAMIN D LEVEL ONCE IN A LIFETIME-USE SMARTSET# [id number] Completed 10/16/2021, 12/27/2018 Alpha-1 Antitrypsin Discontinued GARDASIL-HPV [...] this encounter Medical Devices Implanted Type Area Wrap Yarn Sorter Device Identifier Shelf Expiration Date Model / Serial / Lot Stent Graft Icast [id number] - [id number] - [id number] Implanted:Qty : 1 on 04/14/2022 by Nnamdi King MD at OR [facility] N/A: Mesenteric Artery GETINGE : MAQUET [id number] 02/21/2023 [id number] / [id number] / [id number] Description:implanted in SMA Stent Ravia 3.0x15 Rx - [id number] Implanted:Qty : 1 on 11/12/2022 by Patrice Jose MD at CARDIAC LABS [facility] [employer] : VASCULAR [id number] 11/28/2023 [id number] / / [id number] documented as of this encounter Advance [...] the patient have Health Care Power of Ticket Sales Supervisor? Yes, in chart and reviewed as [...] patient or by statute hierarchy) Care Teams Hair Spring Cutter Relationship Specialty Start Date End Date Courtney Penaloza MD [address] [place] [address] [place] [phone] PCP - General Family Medicine 10/17/19 documented as of this encounter
--- OUTSIDE RECORDS SUMMARY | 2023-08-31 06:28 | External Medical Summary | Summary of Care ---
Author Name Unknown Organization [facility] Address [address] [place] [address] Phone [phone] Care Team Providers Care Immigration Consultant Name Role Phone Courtney Restrepo MD Primary Care Prov ider Reason for Visit * Reason Onset Date Comments Medication Refill 06/30/2023 Status Check 06/30/2023 Encounter Details Date Type Department Care Team (Late st Contact Info) Description 06/30/2023 Refill Vascular Surg [facility] [address], [place] [phone] Nnamdi King MD [address] [place] [address] Allergies Active Allergy Reactions Criticality [...] edema Nitroglycerin Hypotension 12/20/2018 Penicillins Nausea/vomiting 05/17/2007 [place] Hives 10/02/2018 Propoxyphene Edema face/lips/tongue,Hiv es 06/26/2009 documented as of this encounter (statuses as of 07/01/2023) Medications Medication Sig Dispensed Refills Start Date [...] (3) MG/3ML Inhalation Solution (Duoneb)Indication s:COPD exacerbation ([facility]) Inhale 3 mL via nebulizer every 4 hours as needed for Shortness of Breath. 100 mL 3 11/30/19 23 Active OneTouch Delica Lancets 30GIndications:Typ e 2 diabetes mellitus with hemoglobin A1c goal of less than 8.0% ([facility]) Use to test glucose daily. E11.9 100 Each 5 11/30/19 23 Active OneTouch Verio w/Device KitIndications:Typ e 2 diabetes mellitus with hemoglobin A1c goal of less than 8.0% ([facility]) Use to test glucose daily. E11.9 1 Kit 0 11/30/19 23 Active Trelegy Ellipta 100-62.5-25 MCG/ACT Aerosol Powder Breath ActivatedIndicatio ns:COPD, group C, by GOLD 2017 classification ([facility]) Inhale 1 puff as directed once a day 1 inhalation daily. Rinse mouth after every use. 60 Blister Dosing Unit 5 11/30/19 23 Active NovoLOG FlexPen 100 UNIT/ML Subcutaneous Solution Pen-injector (insulin aspart)Indications :Type 2 diabetes mellitus with hemoglobin A1c goal of less than 8.0% ([facility]) Units as per sliding scale 3 mL 3 02/05/20 23 Active Insulin Glargine Solostar 100 UNIT/ML Subcutaneous Solution Pen-injector (Lantus SoloStar)Indicatio ns:Type 2 diabetes mellitus with hemoglobin A1c goal of less than 8.0% ([facility]) Inject 10 Units under the skin every [...] of less than 8.0% ([facility]) Test glucose once daily E11.9 100 Strip 5 02/23/20 23 Active Calcium Carbonate 600 MG Oral Tablet (Calcium 600) Take 1 Tablet by mouth 2 times a day with morning and evening meals. (Not TUMS) 0 Active Lidocaine 4 % External Patch (Aspercreme) Place 1 Patch over 12 hours topically on the skin daily. 30 Patch 0 04/13/19 24 Active Ondansetron HCl 4 MG Oral Tablet (Zofran)Indication s:Nausea Take 1 Tablet by mouth every 8 hours as needed for Nausea. 20 Tablet 0 04/13/19 24 Active Sucralfate 1 GM Oral Tablet (Carafate) Take 1 Tablet by mouth 4 times a day before meals and at bedtime. 120 Tablet 0 04/29/19 24 Active Polyethylene Glycol 3350 17 GM/SCOOP Oral [...] morning. 30 Tablet 0 06/15/19 24 Active Acetaminophen 325 MG Oral Tablet (Tylenol) Take 3 Tablets by mouth in the morning and 3 Tablets at noon and 3 Tablets before bedtime. 270 Tablet 0 06/14/19 24 024 Active Naloxone HCl 0.4 MG/ML Injection Solution (Narcan) Inject 1mL into a large muscle for suspected opioid overdose. Seek medical help immediately. http://[email or web address] 1 mL 3 06/14/19 24 Active Additional Information Patient not taking.Reported on [...] - refuses to stop it.. 0 Active Baclofen 5 MG Oral Tablet (Lioresal) Take 1 Tablet by mouth in the morning and 1 Tablet at noon and 1 Tablet before bedtime. As needed for muscle spasm. 30 Tablet 0 06/23/19 24 Active Additional Information Patient taking differently:5 mg Oral TID(AM/NOON/HS),(No instructions reported), Reported on 06/29/2023 Gabapentin 300 MG Oral Capsule (Neurontin) Take 1 Capsule by mouth in the morning and 1 Capsule before bedtime. 60 Capsule 3 06/27/19 24 Active oxyCODONE HCl 5 MG Oral Tablet (Oxy IR) Take 1 Tablet by mouth every 6 hours as needed for Pain, Moderate. 28 Tablet 0 07/01/19 24 Active HYDROmorphone HCl 2 MG Oral Tablet (Dilaudid) Take 1 Tablet by mouth every 4 hours as needed for Pain, Breakthrough. 18 Tablet 0 06/14/19 24 024 Discontinued oxyCODONE HCl 5 MG Oral Tablet (Oxy IR) Take 1 Tablet by mouth every 6 hours as needed for Pain, Moderate. 28 Tablet 0 06/22/19 24 024 Discontinued(Re fill) documented as of this encounter (statuses as of 07/01/2023) Active Problems Problem Noted Date Diagnosed Date [...] rinse after steroid. Test performed by [facility] SEX CRIMES DETECTIVE CPFT [place] (myocardial infarction) 02/21/2019 Bilateral carotid artery stenosis [...] osteoporosis 07/03/2018 Reactive depression 11/17/2017 Atherosclerosis of [place] co ronary artery of [place] heart without angina pectoris 07/22/2015 Overview: Single [...] rinse after steroid. Test performed by [facility] SEX CRIMES DETECTIVE CPFT GENERAL OSTEOARTHROSIS BMI 32.0-32.9,adult Tobacco use disorder Hyperlipidemia with target LDL less than 70 Overview: ICD-10 update of inactive term RSD upper limb Overview: left arm Generalized anxiety disorder documented as of this encounter (statuses as of 07/01/2023) Resolved Problems Problem Noted Date Diagnosed Date [...] ISCHEMIC HRT DIS NOS Coronary atherosclerosis of [place] coronary artery 11/24/2016 Tobacco abuse 11/17/2017 documented as of this encounter (statuses as of 07/01/2023) Immunizations Name Administration Dates Next Due COVID-19 [...] the money to buy more. Never true 06/22/19 24 Within the past 12 months, t he food you bought just didn't last and you didn't have money to get more. Never true 06/22/2023 Sex and Gender Information Value Date Recorded [...] as of this encounter Miscellaneous Notes * Addendum Note - Tyrell Chiang CRNP - 07/01/2023 10:54 AM EDTAddended by: TYRELL CHIANG on: 07/01/2023 10:54 AM Modules accepted: Orders * Telephone Encounter - Tyrell Chiang CRNP - 07/01/2023 10:48 AM EDT I called and spoke to patient. Does not have Dilaudid. I removed that from list. Was given script for 28 tablets of Oxycodone on 06/22/23 (filled on 06/24/23, according to PDMP) I called and reviewed this with her pharmacy, [facility]. Takes 2 tablets in am and 2 tablets in PM. Was seen 06/29/23 at [facility]. Pictures look fine. I don't see any documentation regarding plan for pain management. I will go ahead and give 28 more tablets of Oxycodone. Discussed need to wean. Has f/u 07/20/23 at [facility]. SHREE Eagle 07/01/2023 10:53 AM * Telephone Encounter - Chio Francisco OSA - 07/01/2023 9:22 AM EDT Patient is asking if we call call in oxy for her she states she is having severe pain and did not sleep last night because physical therapy is stretching her stump and it is really causing pain for her * Telephone Encounter - Dorothy Jefferson CPhT - 07/01/2023 9:14 AM EDT Pt called the [facility] Specialty refill line in error. She was asking to speak with a nurse. Caller transferred. Thanks! Dorothy Lang CPhT [employer] [facility] ([facility] (Formerly Telepharm[facility]) 07/01/2023,9:15 AM * Telephone Encounter - Jazzy Harvey CRNP - 06/30/2023 1:27 PM EDT Just refilled 06/22/23. Surgery was nearly 1 month prior. ,should no longer require narcotics * Telephone Encounter - Jazzy Harvey CRNP - 06/30/2023 1:27 PM EDT Refused Prescriptions: Disp Refills oxyCODONE HCl 5 MG Oral Tablet (Oxy IR) 28 Tab*0 Sig: Take 1 Tablet by mouth every 6 hours as needed for Pain, Moderate. Refused By: JAZZY HARVEY Reason for Refusal: Refill Not Appropriate * Telephone Encounter - Demi Hutchins LPN - 06/30/2023 11:00 AM EDTPending Prescriptions: Disp Refills oxyCODONE HCl 5 MG Oral Tablet (Oxy IR) 28 Tab*0 Sig: Take 1 Tablet by mouth every 6 hours as needed for Pain, Moderate. * Telephone Encounter - Dee Lara CPhT - 06/30/2023 10:19 AM EDT Pt is out. Did you pend patient's preferred pharmacy and medication before forwarding?yes Pharmacy: [facility] [address] Pending Prescriptions: Disp Refills oxyCODONE HCl 5 MG Oral Tablet (Oxy IR) 28 Tab*0 Sig: Take 1 Tablet by mouth every 6 hours as needed for Pain, Moderate. Last Visit: 05/31/2023 (in office), 04/07/2020 (telemedicine) Next Visit: Visit date not found If no future appointments scheduled, and last appointment is greater than a year ago, please schedule patient for a follow-up appointment Last date the medication was ordered: 06/22/23 Is this request for a controlled substance?Yes, What was the last refill date 06/22/23 w/ quantity 28 and dosage 5 mg and Urine Drug Screen Not completed Urine Drug Screen: Results for orders placed [...] Care Team (Late st Contact Info) Description 07/01/2023 1:00 PM EDT Home Visit Care Coordination and Integration [address] [facility] [place] [address] Angy Ceballos Pending Sale To [facility] [address] [place] [address] 07/20/2023 11:30 AM EDT Office Visit Vascular Surgery, [facility] [address] [place] [address] Kyle Olivares PA-C [address] [place] [address] 09/27/2023 9:40 AM EDT Office Visit Family [address] [phone] Courtney Restrepo MD [address] [place] [address] [place] [address] 10/10/2023 4:00 PM EDT Office Visit Nephrology, [address] [place] [address] Charla [facility] [address] 12/07/2023 9:20 AM EDT Office Visit [address] [phone] Courtney Restrepo MD [address] [place] [address] [place] [address] Scheduled Procedures Name Priority Associated Diagnoses Date/Ti [...] D LEVEL ONCE IN A LIFETIME-USE SMARTSET# 25113 Completed 10/16/2021, 12/27/2018 Alpha-1 Antitrypsin Discontinued GARDASIL-HPV [...] this encounter Medical Devices Implanted Type Area Executive Account Manager Device Identifier Shelf Expiration Date Model / Serial / Lot Stent Graft Icast [id number] - [id number] - [id number] Implanted:Qty : 1 on 04/14/2022 by Nnamdi King MD at OR [facility] N/A: Mesenteric Artery GETINGE : VITOR [id number] 02/21/2023 [id number] / [id number] / [id number] Description:implanted in SMA Stent [place] 3.0x15 Rx - [id number] Implanted:Qty : 1 on 11/12/2022 by Patrice Jose MD at [facility]ARDIAC LABS [facility] MEDTRONIC : VASCULAR [id number] 11/28/2023 [id number] / / [id number] documented as of this encounter Advance [...] the patient have Health Care Power of Milk Treater? Yes, in chart and reviewed as current [...] patient or by statute hierarchy) Care Teams Immigration Consultant Relationship Specialty Start Date End Date Courtney Restrepo MD [address] [place] [address] [place] [phone] PCP - General Family Medicine 10/17/19 documented as of this encounter
--- OUTSIDE RECORDS SUMMARY | 2023-08-31 06:28 | External Medical Summary | Summary of Care ---
Author Name Unknown Organization [facility] Address [address] [place] [address] Phone [phone] Care Team Providers Care Immigration Case Manager Name Role Phone Courtney Restrepo MD Primary Care Prov ider Reason for Visit * Reason Onset Date Comments Advice 07/11/2023 Encounter Details Date Type Department Care Team (Late st Contact Info) Description 07/11/2023 Telephone Vascular Surg [facility] [address], [place] [phone] Nnamdi King MD [address] [place] [address] Advice Allergies Active Allergy Reactions [...] edema Nitroglycerin Hypotension 12/20/2018 Penicillins Nausea/vomiting 05/17/2007 [place] Hives 10/02/2018 Propoxyphene Edema face/lips/tongue,Hiv es 06/26/2009 [...] (3) MG/3ML Inhalation Solution (Duoneb)Indications: COPD exacerbation ([facility]) Inhale 3 mL via nebulizer every 4 [...] group C, by GOLD 2017 classification ([facility]) Inhale 1 puff as directed once a day 1 inhalation daily. Rinse mouth after every use. 60 Blister Dosing Unit 5 11/29/2022 Active NovoLOG FlexPen 100 UNIT/ML Subcutaneous Solution Pen-injector (insulin aspart)Indications:T ype 2 diabetes mellitus with hemoglobin A1c goal of less than 8.0% ([facility]) Units as per sliding scale [...] suspected opioid overdose. Seek medical help immediately. [email or web address] 1 mL 3 06/14/2023 Active Additional Information [...] rinse after steroid. Test performed by [facility] MEDIA ASSOCIATE CPFT [place] (myocardial infarction) 02/21/2019 Bilateral carotid artery stenosis [...] osteoporosis 07/03/2018 Reactive depression 11/17/2017 Atherosclerosis of [place] co ronary artery of [place] heart without angina pectoris 07/22/2015 Overview: Single [...] rinse after steroid. Test performed by [facility] MEDIA ASSOCIATE CPFT GENERAL OSTEOARTHROSIS BMI 32.0-32.9,adult Tobacco use [...] ISCHEMIC HRT DIS NOS Coronary atherosclerosis of [place] coronary artery 11/24/2016 Tobacco abuse 11/17/2017 documented [...] encounter Miscellaneous Notes * Telephone Encounter - Kyle Olivares PA-C - 07/11/2023 9:46 AM EDT I spoke with Ms. Khan Please add pt to Dr. Erickson's GWs schedule on 07/13/23 @ 12:50 PM Patient is aware of date and time Thank you Kyle * Telephone Encounter - Brittani Stockton OSA - 07/11/2023 9:36 AM EDT Pt calling because her right leg is swelling and has developed a black spot. She doesn't want to wait because she is afraid of losing her right leg like she did her left. Pt is unable to come to [place]. Please call pt to advise. Thank you JACOBY Juarez documented in this encounter Plan of Treatment Upcoming Encounters Date Type Department Care Team (Late st Contact Info) Description 07/12/2023 10:00 AM EDT Office Visit Family Medicine [address] [place] [phone] Courtney Restrepo MD [address] [place] [address] [place] [address] 07/20/2023 11:30 AM EDT Office Visit Vascular Surgery, [facility] [address] [facility] [place] [address] Kyle Olivares PA-C [address] [place] [address] 09/27/2023 9:40 AM EDT Office Visit [address] [phone] Courtney Restrepo MD [address] [place] [address] [place] [address] 10/10/2023 4:00 PM EDT Office Visit Nephrology, [address] [place] [address] Charla Potter MD 400 [place] [address] 12/07/2023 9:20 AM EDT Office Visit [address] [phone] Courtney Restrepo MD [address] [place] [address] [place] [address] Scheduled Procedures Name Priority Associated Diagnoses Date/Ti me ESOPHAGOGASTRODUODENOSCOPY ( EGD), FLEXIBLE, TRANSORAL, DIAGNOSTIC Recall Pendleton's esophagus Health Maintenance Due Date Last Done Comments DISCUSS TOBACCO CESSATION (REFER TO SMARTSET #8301) 1950 Cologuard 1994 Fecal Occult Blood Test [...] D LEVEL ONCE IN A LIFETIME-USE SMARTSET# 13540 Completed 10/16/2021, 12/27/2018 Alpha-1 Antitrypsin Discontinued GARDASIL-HPV [...] this encounter Medical Devices Implanted Type Area Mock Up Builder Device Identifier Shelf Expiration Date Model / Serial / Lot Stent Graft Icast [id number] - [id number] - [id number] Implanted:Qty : 1 on 04/14/2022 [place]namdi King [place] [facility] [place]A: Mesenteric Artery GETINGE : YOELT [id number] 02/21/2023 [id number] / [id number] / [id number] Description:implanted in SMA Stent Howie 3.0x15 Rx - [id number] Implanted:Qty : 1 on 11/12/2022 by Patrice Jose MD at [facility] [facility] [employer] : VASCULAR [id number] 11/28/2023 [id number] / / [id number] 2 documented as of this encounter Advance [...] patient have Health Care Power of Mortgage Processing Clerk? Yes, in chart and reviewed as [...] or by statute hierarchy) Care Teams Immigration Case Manager Relationship Specialty Start Date End Date Courtney Restrepo MD [address] [place] [address] [place] [address] PCP - General Family Medicine 10/17/19 documented as of this encounter
--- OUTSIDE RECORDS SUMMARY | 2023-08-31 06:28 | External Medical Summary | Summary of Care ---
Author Name Unknown Organization [facility] Address [address] [place] [address] Phone [phone] Care Team Providers Care Needle Grinder Name Role Phone Courtney Restrepo MD Primary Care Prov ider Encounter Details Date Type Department Care Team (Late st Contact Info) Description 07/06/2023 Result Scan Unspecified Department <No scans attached> [...] edema Nitroglycerin Hypotension 12/20/2018 Penicillins Nausea/vomiting 05/17/2007 [place] Hives 10/02/2018 Propoxyphene Edema face/lips/tongue,Hiv es 06/26/2009 documented as of this encounter (statuses as of 07/08/2023) Medications Medication Sig Dispensed Refills Start Date [...] not taking.Informant: At Discharge, Reported on 07/01/2023 Arun Brown 30GIndications:Type 2 diabetes mellitus with hemoglobin [...] :COPD, group C, by GOLD 2017 classification ([facility]) Inhale 1 puff as directed once a [...] suspected opioid overdose. Seek medical help immediately. [email or web address] 1 mL 3 06/14/2023 Active Additional Information [...] as of this encounter (statuses as of 07/08/2023) Active Problems Problem Noted Date Diagnosed Date [...] rinse after steroid. Test performed by [facility] HARNESS PULLER CPFT [place] (myocardial infarction) 02/21/2019 Bilateral carotid artery stenosis [...] rinse after steroid. Test performed by [facility] HARNESS PULLER CPFT GENERAL OSTEOARTHROSIS BMI 32.0-32.9,adult Tobacco use disorder Hyperlipidemia with target LDL less than 70 Overview: ICD-10 update of inactive term RSD upper limb Overview: left arm Generalized anxiety disorder documented as of this encounter (statuses as of 07/08/2023) Resolved Problems Problem Noted Date Diagnosed Date [...] as of this encounter (statuses as of 07/08/2023) Immunizations Name Administration Dates Next Due COVID-19 [...] 11:30 AM EDT Office Visit Vascular Surgery, [facility] [address] [facility] [address] Kyle Olivares PA-C [address] [place] [address] 09/27/2023 9:40 AM EDT Office Visit Family [address] [phone] Courtney Restrepo MD [address] [place] [address] [place] [address] 10/10/2023 4:00 PM EDT Office Visit Nephrology, [facility] [address] [place] [address] Charla Potter MD [address] [facility] [place] [id number] 12/07/2023 9:20 AM EDT Office Visit Family [address] [phone] Courtney Restrepo MD [address] [place] [address] [place] [id number] Scheduled Procedures Name Priority Associated Diagnoses Date/Ti [...] D LEVEL ONCE IN A LIFETIME-USE SMARTSET# 92732 Completed 10/16/2021, 12/27/2018 Alpha-1 Antitrypsin Discontinued GARDASIL-HPV [...] this encounter Medical Devices Implanted Type Area Space Buyer Device Identifier Shelf Expiration Date Model / Serial / Lot Stent Graft Icast [id number] - [id number] - [id number] Implanted:Qty : 1 on 04/14/2022 by Nnamdi King MD at [place] [facility] N/A: Mesenteric Artery GETINGE : VITOR [id number] 02/21/2023 [id number] / [id number] / [id number] Description:implanted in SMA Stent [place] 3.0x15 Rx - [id number] Implanted:Qty : 1 on 11/12/2022 by Patrice Jose MD at [facility] [employer] : VASCULAR [id number] 11/28/2023 [id number] / / [id number] documented as of this encounter Procedures Procedure Name Priority Date/Time Associated Diagnosis Comments RADIOLOGY SCANNED RESULT 07/06/2023 RADIOLOGY SCANNED RESULT 07/06/2023 RADIOLOGY SCANNED RESULT 07/06/2023 RADIOLOGY SCANNED RESULT 07/06/2023 documented in this encounter Results * RADIOLOGY SCANNED RESULT (07/06/2023) 07/06/2023 No Physician Data Unknown DIAGNOSTIC RAD IOLOGY SERVICES * RADIOLOGY SCANNED RESULT (07/06/2023) 07/06/2023 No Physician Data Unknown DIAGNOSTIC RAD IOLOGY SERVICES * RADIOLOGY SCANNED RESULT (07/06/2023) 07/06/2023 No Physician Data Unknown DIAGNOSTIC RAD IOLOGY SERVICES * RADIOLOGY SCANNED RESULT (07/06/2023) 07/06/2023 No Physician Data Unknown DIAGNOSTIC RAD IOLOGY [...] the patient have Health Care Power of Lead Software Engineer? Yes, in chart and reviewed as current [...] patient or by statute hierarchy) Care Teams Needle Grinder Relationship Specialty Start Date End Date Courtney Restrepo MD [address] [place] [address] [place] [phone] PCP - General Family Medicine 10/17/19 documented as of this encounter
--- OUTSIDE RECORDS SUMMARY | 2023-08-31 06:28 | External Medical Summary | Summary of Care ---
Author Name Unknown Organization [facility] Address [address] [place] [address] Phone [phone] Care Team Providers Care Curing Room Supervisor Name Role Phone Courtney Restrepo MD Primary Care Prov ider Encounter Details Date Type Department Care Team (Late st Contact Info) Description 07/01/2023 1:00 PM EDT Home Visit Care Coordination and Integration [address] [place] [address] Angy Ceballos Community Health Director Chemistry [address] [place] [address] [place] [address] Allergies Active Allergy Reactions [...] edema Nitroglycerin Hypotension 12/20/2018 Penicillins Nausea/vomiting 05/17/2007 [place] Hives 10/02/2018 Propoxyphene Edema face/lips/tongue,Hiv es 06/26/2009 [...] goal of less than 8.0% ([facility]) Use to test glucose daily. E11.9 100 Each 5 11/29/2022 Active OneTouch Verio w/Device KitIndications:Type 2 diabetes mellitus with hemoglobin A1c goal of less than 8.0% ([facility]) Use to test glucose daily. E11.9 [...] opioid overdose. Seek medical help immediately. [email or web address]://[email or web address] 1 mL 3 06/14/2023 Active Additional Information [...] needed for muscle spasm. 30 Tablet 0 06/23/2023 Active Additional Information Patient taking differently:5 mg [...] Pain, Moderate. 28 Tablet 0 07/01/2023 Active documented as of this encounter (statuses [...] rinse after steroid. Test performed by Bibiana RECTANGULAR TANK COOPER CPFT [place] (myocardial infarction) 02/21/2019 Bilateral carotid artery stenosis [...] osteoporosis 07/03/2018 Reactive depression 11/17/2017 Atherosclerosis of [place] co ronary artery of [place] heart without angina pectoris 07/22/2015 Overview: Single [...] rinse after steroid. Test performed by Bibiana RECTANGULAR TANK COOPER CPFT GENERAL OSTEOARTHROSIS BMI 32.0-32.9,adult Tobacco use disorder Hyperlipidemia with target LDL less than 70 Overview: ICD-10 update of inactive term RSD upper limb Overview: left arm Generalized anxiety disorder documented as of this encounter (statuses as of 07/01/2023) Resolved Problems Problem Noted Date Diagnosed Date Resolved Date PRAKASH (acute kidney injury) 01/08/2023 03 /08/2023 Systolic congestive heart failure 11/29/2022 12/10/2022 Hypertensive [...] ISCHEMIC HRT DIS NOS Coronary atherosclerosis of [place] coronary artery 11/24/2016 Tobacco abuse 11/17/2017 documented [...] as of this encounter Progress Notes * Angy Ceballos, Community Health Director Chemistry - 07/01/2023 1:51 PM EDT Telemedicine visit: No Community Health Director Chemistry (MERRY) documentation: Call to patient this AM to confirm visit. Patient agreeable to move time up to 1130. Greeted by caregiver, Dee, upon arrival to the home. Patient is laying in bed. Caregiver states patient did not sleep during the night d/t pain. Caregiver reports patient is out of oxycodone. They are waiting on the pharmacy to call saying the refill is ready for miner pick. Patient awake but lethargic - stated caregiver may show CHW through home for safety assessment and review medications. Patient refused vital signs - states she is in pain and just wants to be left alone. Briefly discussed SDOH needs withpatient. She has no concerns. Caregiver states a contractor was in recently to see about installing ramps in the home. Unsure of the name - thinks patient's daughter applied for this through [employer]. To enter the home is a narrow sidewalk and about half a step to the porch then another half step into the home. CG voiced concern that although the steps are only a couple inches, it is difficult to get patient in/out of the house. She states the narrow sidewalk also makes it difficult - not wide enough to accommodate the wheelchair. Inside the home, the doorways are too narrow for the wheelchair to pass through. CG states patient sits on the seat of her rollator and they push her on that. She only uses the WC when they leave thehome. There is a half bath on the main floor - which also has a half step down - which is a concern. Patient has a stair lift, which she previously used to get to the second floor so she could bathe.Needs to go up two small steps to get to the landing where the lift is. CG states the contractor told them it would be unsafe to put a ramp in. CG is not sure why. It appears to be about 48" from thestep to where the oven is - suggested to CG that it may be too steep an incline to advance the rampover the steps. Discussed placing hand rails/grab bars on the wall by the steps and in the doorway going up the two small steps to the landing. Patient has 04/10 care supplied by her waiver services and family. CG is with patient 45 hrs/week. Patient's grandson and his significant other live with the patient and help care for her. The SO is quitting her job to work under the waiver contract to care for patient. CG states that the family provides hands on care to her even when a paid CG is not there. CG states patient does not use a nebulizer, does not have oxygen in the home. Did not observe either of these during visit. CG states patient's swelling has been down since returning home. States it's much improved from her usual. Appetite is fair. Questioned re: bowel/bladder habits. CG states patient is voiding as per baseline. Questioned CG if any blood observed in stool - states this has never been an issue that she is aware of. Advised CG that patient is on a blood thinner, so to be watchful of abnormal bleeding or blood in stool/urine. Verbalized understanding. Reviewed low sodium diet with caregiver. CG reports patient usually eats "Healthy Choice" frozen meals. Reviewed nutrition label >500mg salt in one meal. Provided written education for CHF, COPD, DM, portion control, and RNCM name/number. Caregiver will give this to patient/family to review. Angy Ceballos Community Health Worker documented in this encounter Plan of Treatment Upcoming Encounters Date Type Department Care Team (Late st Contact Info) Description 07/20/2023 11:30 AM EDT Office Visit Vascular Surgery, [facility] [address] [facility] [place] [address] Kyle Olivares PA-C [address] [place] [address] 09/27/2023 9:40 AM EDT Office Visit [address] [phone] Courtney Restrepo MD [address] [place] [address] [place] [address] 10/10/2023 4:00 PM EDT Office Visit Nephrology, [address] [place] [address] Charla Potter MD [address] [place] [address] 12/07/2023 9:20 AM EDT Office Visit [address] [phone] Courtney Restrepo MD [address] [place] [address] [place] [address] Scheduled Procedures Name Priority Associated Diagnoses Date/Ti [...] D LEVEL ONCE IN A LIFETIME-USE SMARTSET# [id number] Completed 10/16/2021, 12/27/2018 Alpha-1 Antitrypsin Discontinued GARDASIL-HPV [...] this encounter Medical Devices Implanted Type Area Pearl Hand Device Identifier Shelf Expiration Date Model / Serial / Lot Stent Graft Icast [id number] - [id number] - [id number] Implanted:Qty : 1 on 04/14/2022 by Nnamdi King MD at OR [facility] [place] N/A: Mesenteric Artery GETINGE : [id number] 02/21/2023 [id number] / [id number] / [id number] Description:implanted in SMA Stent [place] 3.0x15 Rx - [id number] Implanted:Qty : 1 on 11/12/2022 by Patrice Jose MD at CARDIAC LABS [facility] [place] MEDTRONIC : VASCULAR [id number] 11/28/2023 [id number] / / [id number] documented as of this encounter Advance [...] the patient have Health Care Power of Geospatial Developer? Yes, in chart and reviewed as [...] patient or by statute hierarchy) Care Teams Curing Room Supervisor Relationship Specialty Start Date End Date Courtney Restrepo MD [address] [place] [address] [place] [address] PCP - General Family Medicine 10/17/19 documented as of this encounter
--- OUTSIDE RECORDS SUMMARY | 2023-08-31 06:28 | External Medical Summary | Summary of Care ---
Author Name Unknown Organization [facility] Address [address] [place] [address] Phone [phone] Care Team Providers Care Electronics Lead Name Role Phone Courtney Restrepo MD Primary Care Prov ider Encounter Details Date Type Department Care Team (Late st Contact Info) Description 07/06/2023 2:45 PM EDT Scheduled Telephone Care Coordination and Integration [address], [place] [phone] [facility] Health Delivery Analyst [address] [place] [address] Allergies Active Allergy Reactions Criticality [...] edema Nitroglycerin Hypotension 12/20/2018 Penicillins Nausea/vomiting 05/17/2007 [place] Hives 10/02/2018 Propoxyphene Edema face/lips/tongue,Hiv es 06/26/2009 documented as of this encounter (statuses as of 07/06/2023) Medications Medication Sig Dispensed Refills Start Date [...] A1c goal of less than 8.0% ([facility]) Use to test glucose daily. E11.9 100 Each 5 11/29/2022 Active OneTouch Verio w/Device KitIndications:Type 2 diabetes mellitus with hemoglobin A1c goal of less than 8.0% ([facility]) Use to test glucose daily. E11.9 1 [...] opioid overdose. Seek medical help immediately. [email or web address] 1 mL 3 06/14/2023 Active Additional Information [...] as of this encounter (statuses as of 07/06/2023) Active Problems Problem Noted Date Diagnosed Date [...] rinse after steroid. Test performed by Bibiana AIR VICE MARSHAL CPFT [place] (myocardial infarction) 02/21/2019 Bilateral carotid artery stenosis [...] osteoporosis 07/03/2018 Reactive depression 11/17/2017 Atherosclerosis of [place] co ronary artery of [place] heart without angina pectoris 07/22/2015 Overview: Single [...] rinse after steroid. Test performed by Bibiana AIR VICE MARSHAL CPFT GENERAL OSTEOARTHROSIS BMI 32.0-32.9,adult Tobacco use disorder Hyperlipidemia with target LDL less than 70 Overview: ICD-10 update of inactive term RSD upper limb Overview: left arm Generalized anxiety disorder documented as of this encounter (statuses as of 07/06/2023) Resolved Problems Problem Noted Date Diagnosed Date [...] ISCHEMIC HRT DIS NOS Coronary atherosclerosis of [place] coronary artery 11/24/2016 Tobacco abuse 11/17/2017 documented as of this encounter (statuses as of 07/06/2023) Immunizations Name Administration Dates Next Due COVID-19 [...] this encounter Progress Notes * [facility] Health Delivery Analyst - 07/06/2023 2:47 PM EDT Telemedicine visit: No Community Health Delivery Analyst (MERRY) documentation: CHW follow up phone call for RNCM and reached a voicemail with a message stating the mailbox is full and no message could be left. Akin Mckeon Community Health Worker Lead [facility] Paolo Alonso [phone] Electronically signed by [facility] Health Delivery Analyst at 07/06/2023 2:49 PM EDT documented in this encounter Plan of Treatment Upcoming Encounters Date Type Department Care Team (Late st Contact Info) Description 07/20/2023 11:30 AM EDT Office Visit Vascular Surgery, [facility] [address] [facility] [place] [address] Kyle Olivares PA-C [address] [place] [address] 09/27/2023 9:40 AM EDT Office Visit Family Medicine [address] [phone] Courtney Restrepo MD [address] [place] [address] [place] [address] 10/10/2023 4:00 PM EDT Office Visit Nephrology, [address] [place] [address] Charla Potter MD [address] [place] [place] [address] 12/07/2023 9:20 AM EDT Office Visit Family Medicine [address] [place] [phone] Courtney Restrepo MD [address] [place] [address] [place] [address] Scheduled Procedures Name Priority Associated Diagnoses Date/Ti [...] D LEVEL ONCE IN A LIFETIME-USE SMARTSET# [id number] Completed 10/16/2021, 12/27/2018 Alpha-1 Antitrypsin Discontinued GARDASIL-HPV [...] this encounter Medical Devices Implanted Type Area Casting Wheel Operator Helper Device Identifier Shelf Expiration Date Model / Serial / Lot Stent Graft Icast [id number] - [id number] - [id number] Implanted:Qty : 1 on 04/14/2022 by Nnamdi King MD at OR [facility] [place] N/A: Mesenteric Artery GETINGE : VITOR [id number] 02/21/2023 [id number] / [id number] / [id number] Description:implanted in SMA Stent Howie 3.0x15 Rx - [id number] Implanted:Qty : 1 on 11/12/2022 by Patrice Jose MD at CARDIAC LABS [facility] [place] [employer] : VASCULAR [id number] 11/28/2023 [id number] / / [id number] documented as of this encounter Advance [...] the patient have Health Care Power of Pediatric Neurologist? Yes, in chart and reviewed as current [...] patient or by statute hierarchy) Care Teams Electronics Lead Relationship Specialty Start Date End Date Courtney Restrepo MD [address] [place] [address] [place] [address] PCP - General Family Medicine 10/17/19 documented as of this encounter
--- OUTSIDE RECORDS SUMMARY | 2023-08-31 06:28 | External Medical Summary | Summary of Care ---
Author Name Unknown Organization [facility] Address [address] [place] [address] Phone [phone] Care Team Providers Care Canvas Worker Name Role Phone Courtney Restrepo MD Primary Care Prov ider Reason for Visit * Reason Onset Date Comments Urinary Tract Infection Symptoms 04/11/2023 Encounter Details Date Type Department Care Team (Late st Contact Info) Description 04/11/[address] [phone] Courtney Restrepo MD [address] [place], [place] [address] [address] Urinary Tract Infection Symptoms Allergies Active Allergy Reactions Criticality Noted Date [...] edema Nitroglycerin Hypotension 12/20/2018 Penicillins Nausea/vomiting 05/17/2007 [place] Hives 10/02/2018 Propoxyphene Edema face/lips/tongue,Hiv es 06/26/2009 [...] :COPD, group C, by GOLD 2017 classification ([facility]) Inhale 1 puff as directed once a day 1 inhalation daily. Rinse mouth after every use. 60 Blister Dosing Unit 5 11/29/2022 Active NovoLOG FlexPen 100 UNIT/ML Subcutaneous Solution Pen-injector (insulin aspart)Indications:T ype 2 diabetes mellitus with hemoglobin A1c goal of less than 8.0% ([facility]) Units as per sliding scale 3 mL 3 02/04/2023 Active Insulin Glargine Solostar 100 UNIT/ML Subcutaneous Solution Pen-injector (Lantus SoloStar)Indications :Type 2 diabetes mellitus with hemoglobin A1c goal of less than 8.0% ([facility]) Inject 10 Units under the [...] hemoglobin A1c goal of less than 8.0% ([facility]) Test glucose once daily E11.9 [...] rinse after steroid. Test performed by Bibiana CURB WORKER CPFT [place] (myocardial infarction) 02/21/2019 Bilateral [...] osteoporosis 07/03/2018 Reactive depression 11/17/2017 Atherosclerosis of [place] co ronary artery of [place] heart without angina pectoris 07/22/2015 Overview: Single [...] rinse after steroid. Test performed by Bibiana CURB WORKER CPFT GENERAL OSTEOARTHROSIS BMI 32.0-32.9,adult Tobacco [...] ISCHEMIC HRT DIS NOS Coronary atherosclerosis of [place] coronary artery 11/24/2016 Tobacco abuse 11/17/2017 documented [...] Miscellaneous Notes * Telephone Encounter - Yanni Charles LPN - 04/11/2023 12:06 PM EST UTI Symptoms Review Patient is an Adult Female ages 18-65: no Patient called to c/o of dysuria, frequency or urgency: yes Chief Complaint: Dysuria: no Frequency: yes Urgency: yes Symptoms above greater than 7 days: no Focus Questions: Temperature greater than 101 degrees F: no Flank Pain (mid-back, severe, new occurring with onset of these symptoms): no Blood in Urine: no Nausea: slight nausea today Vomiting: no Abdominal Pain: yes- pressure History of Urinary Tract Infections: yes Greater than or equal to 4 UTI's within last 12 months: yes Have you completed a course of antibiotics for a UTI within the past 28 days: no History: Reports that urine has a strong odor. Renal Calculi (kidney stones) or structural urologic abnormalities: unknown Acute Pyelonephritis within last 3 months: no Urinary Tract Catheterization (or other urologic procedure or instrumentation within last 2 weeks):no Discharge from hospital or alf within last 2 weeks: no Are you a diabetic: yes Immunosuppressed (taking steroids, chemotherapy): no Never seen in our office before: no Routing Workflow: If patient answers NO to ALL Focus Questions and are ages 18-65 years old: Confirm pharmacy 2. Route to REFILL CALL CENTER PHARMACIST POOL/CLASS [51173] for all regions (Pharmacy to review patient chart, order UA/CS and order antibiotics if appropriate. Pharmacy to follow up with clinic) If patient answers YES to any Focus Question(s) or are outside the age parameter (under 18yrs/olderthan 65yrs): Schedule patient with provider 2. Route telephone encounter to provider 3. If patient refuses appointment, Route telephone encounter to provider and indicate that patient declined appointment No results found for: "GFR" Pt is requesting to see PCP. Appt was scheduled 04/13/23-No sooner appt available. Advised pt to call back if sx worsen prior to scheduled appt. STACEY documented in this encounter Plan of Treatment Upcoming Encounters Date Type Department Care Team (Late st Contact Info) Description 07/12/2023 10:00 AM EDT Office Visit Family [address] [place] [phone] Courtney Restrepo MD [address] [place] [address] [place] [address] 07/13/2023 12:50 PM EDT Office Visit Vascular Surgery, [facility] [address] [facility] [place] [address] Everett Erickson MD [address] [place] [address] 09/27/2023 9:40 AM EDT Office Visit Family Medicine [address] [phone] Courtney Restrepo MD [address] [place] [address] [place] [address] 10/10/2023 4:00 PM EDT Office Visit Nephrology, [facility] [address] [place] [address] Charla Potter MD [address] [place] [address] 12/07/2023 9:20 AM EDT Office Visit Family [address] [phone] Courtney Restrepo MD [address] [place] [address] [place] [address] Scheduled Procedures Name Priority Associated Diagnoses Date/Ti [...] D LEVEL ONCE IN A LIFETIME-USE SMARTSET# [id number] Completed 10/16/2021, 12/27/2018 Alpha-1 Antitrypsin Discontinued GARDASIL-HPV [...] this encounter Medical Devices Implanted Type Area Auto Research Engineer Device Identifier Shelf Expiration Date Model / Serial / Lot Stent Graft Icast [id number] - [id number] - [id number] Implanted:Qty : 1 on 04/14/2022 by Nnamdi King MD at OR [facility] [place] N/A: Mesenteric Artery GETINGE : VITOR [id number] 02/21/2023 [id number] / [id number] / [id number] Description:implanted in SMA Stent [place] 3.0x15 Rx - [id number] Implanted:Qty : 1 on 11/12/2022 by Patrice Jose MD at CARDIAC LABS [facility] [place] [employer] : VASCULAR [id number] 11/28/2023 [id number] / / [id number] documented as of this encounter Advance [...] the patient have Health Care Power of Maintenance Painter? Yes, in chart and reviewed as [...] patient or by statute hierarchy) Care Teams Canvas Worker Relationship Specialty Start Date End Date Courtney Restrepo MD [address] [place] [address] [place] [address] PCP - General Family Medicine 10/17/19 documented as of this encounter
--- OUTSIDE RECORDS SUMMARY | 2023-08-31 06:28 | External Medical Summary | Summary of Care ---
Author Name Unknown Organization [facility] Address [address] [place] [address] Phone [phone] Care Team Providers Care Financial Administrative Assistant Name Role Phone Courtney Restrepo MD Primary Care Prov ider Reason for Visit * Reason Onset Date Comments Medication Refill 06/30/2023 Status Check 06/30/2023 Encounter Details Date Type Department Care Team (Late st Contact Info) Description 06/30/2023 Refill Vascular Surg [facility] [address], [place] [id number] Nnamdi King MD [address] [place] [address] Allergies Active Allergy Reactions Criticality [...] edema Nitroglycerin Hypotension 12/20/2018 Penicillins Nausea/vomiting 05/17/2007 [place] Hives 10/02/2018 Propoxyphene Edema face/lips/tongue,Hiv es 06/26/2009 [...] of Breath. 100 mL 3 11/29/2022 Active OneTouch Delica Lancets 30GIndications:Type 2 diabetes [...] skin daily. 30 Patch 0 04/13/2023 Active Ondansetron HCl 4 MG Oral Tablet (Zofran)Indications: Nausea Take 1 Tablet by mouth every 8 hours as needed for Nausea. 20 Tablet 0 04/13/2023 Active Sucralfate 1 GM Oral Tablet (Carafate) [...] the morning. 30 Tablet 0 06/15/2023 Active Acetaminophen 325 MG Oral Tablet (Tylenol) Take 3 Tablets by mouth in the morning and 3 Tablets at noon and 3 Tablets before bedtime. 270 Tablet 0 06/14/2023 Active HYDROmorphone HCl 2 MG Oral Tablet (Dilaudid) Take 1 Tablet by mouth every 4 hours as needed for Pain, Breakthrough. 18 Tablet 0 06/14/2023 Active Additional Information Patient not taking.Reported on 06/23/2023 Naloxone HCl 0.4 MG/ML Injection Solution (Narcan) Inject 1mL into a large muscle for suspected opioid overdose. Seek medical help immediately. [email or web address] 1 mL 3 06/14/2023 Active Additional Information [...] - refuses to stop it.. 0 Active oxyCODONE HCl 5 MG Oral Tablet (Oxy IR) Take 1 Tablet by mouth every 6 hours as needed for Pain, Moderate. 28 Tablet 0 06/22/2023 Active Baclofen 5 MG Oral Tablet (Lioresal) [...] before bedtime. 60 Capsule 3 06/27/2023 Active documented as of this encounter (statuses [...] rinse after steroid. Test performed by Bibiana EXOTIC DANCER CPFT [place] (myocardial infarction) 02/21/2019 Bilateral [...] osteoporosis 07/03/2018 Reactive depression 11/17/2017 Atherosclerosis of [place] co ronary artery of [place] heart without angina pectoris 07/22/2015 Overview: Single [...] rinse after steroid. Test performed by Bibiana EXOTIC DANCER CPFT GENERAL OSTEOARTHROSIS BMI 32.0-32.9,adult Tobacco use [...] ISCHEMIC HRT DIS NOS Coronary atherosclerosis of [place] coronary artery 11/24/2016 Tobacco abuse 11/17/2017 documented [...] encounter Miscellaneous Notes * Telephone Encounter - Chio Francisco OSA [...] 07/01/2023 9:14 AM EDT Pt called the [facility] Specialty refill line in error. She was asking to speak with a nurse. Caller transferred. Thanks! Dorothy Lang CPhT Centrifuge Separator Tender III [facility] ([facility]) (Formerly [...] preferred pharmacy and medication before forwarding?yes Pharmacy: [facility] [address] Pending Prescriptions: Disp Refills oxyCODONE HCl [...] Visit Care Coordination and Integration [address] [place] [address] Angy Ceballos [facility] Fire Prevention Forester [address] [place] [address] [place] [address] 07/20/2023 11:30 AM EDT Office Visit Vascular Surgery, [facility] [address] [facility] [place] [address] Kyle Olivares PA-C [address] [facility] [place] [id number] 09/27/2023 9:40 AM EDT Office Visit Family Medicine [address] [phone] Courtney Restrepo MD [address] [place] [address] [place] [address] 10/10/2023 4:00 PM EDT Office Visit Nephrology, [address] [place] [address] Charla Potter MD [address] [place], [place] [address] [address] 12/07/2023 9:20 AM EDT Office Visit Family [address] [phone] Courtney Restrepo MD [address] [place] [address] [place] [address] Scheduled Procedures Name Priority Associated Diagnoses Date/Ti me ESOPHAGOGASTRODUODENOSCOPY ( EGD), FLEXIBLE, TRANSORAL, DIAGNOSTIC Recall Pendleton's esophagus Health Maintenance Due Date Last Done Comments DISCUSS TOBACCO CESSATION (REFER TO SMARTSET #2316) 1950 *ADVANCE DIRECTIVE NOT ON FILE 06/28/2020 [...] D LEVEL ONCE IN A LIFETIME-USE SMARTSET# [id number] Completed 10/16/2021, 12/27/2018 Alpha-1 Antitrypsin Discontinued GARDASIL-HPV [...] this encounter Medical Devices Implanted Type Area Signal Operator Technical Device Identifier Shelf Expiration Date Model / Serial / Lot Stent Graft Icast [id number] - [id number] - [id number] Implanted:Qty : 1 on 04/14/2022 by Nnamdi King MD at OR [facility] N/A: Mesenteric Artery GETINGE : STEVEVESTA [id number] 02/21/2023 [id number] / [id number] / [id number] Description:implanted in SMA Stent Howie 3.0x15 Rx - [id number] Implanted:Qty : 1 on 11/12/2022 by Patrice Jose MD at [facility]S [facility] MEDTRONIC : VASCULAR [id number] 11/28/2023 [id number] / / [id number] documented as of this encounter Advance [...] the patient have Health Care Power of Survey Superintendent? Yes, in chart and reviewed as current [...] patient or by statute hierarchy) Care Teams Financial Administrative Assistant Relationship Specialty Start Date End Date Courtney Restrepo MD [address] [place] [address] [place] [address] PCP - General Family Medicine 10/17/19 documented as of this encounter
--- OUTSIDE RECORDS SUMMARY | 2023-08-31 06:29 | External Medical Summary | Summary of Care ---
Author Name Unknown Organization [facility] Address [address] [place] [address] Phone [phone] Care Team Providers Care Mill Set Up Name Role Phone Courtney Penaloza MD Primary Care Prov ider Reason for Visit * Reason Onset Date Comments Medication Refill 06/30/2023 case management 06/30/2023 Encounter Details Date Type Department Care Team (Late st Contact Info) Description 06/30/2023 Refill Care Coordination and Integration [address] [place] [address] Lianna Mack RN [address] [place], [place] [id number] Need for case management follow-up* Allergies Active [...] edema Nitroglycerin Hypotension 12/20/2018 Penicillins Nausea/vomiting 05/17/2007 [place] Hives 10/02/2018 Propoxyphene Edema face/lips/tongue,Hiv es 06/26/2009 documented as of this encounter (statuses as of 06/30/2023) Medications Medication Sig Dispensed Refills Start Date [...] (3) MG/3ML Inhalation Solution (Duoneb)Indications :COPD exacerbation ([facility]) Inhale 3 mL via nebulizer every 4 hours as needed for Shortness of Breath. 100 mL 3 3 Active OneTouch Delica Lancets 30GIndications:Type 2 [...] s:COPD, group C, by GOLD 2017 classification ([facility] [...] skin daily. 30 Patch 0 4 Active Ondansetron HCl 4 MG Oral Tablet (Zofran)Indications :Nausea Take 1 Tablet by mouth every 8 hours as needed for Nausea. 20 Tablet 0 4 Active Sucralfate 1 GM Oral Tablet [...] the morning. 30 Tablet 0 4 Active Acetaminophen 325 MG Oral Tablet (Tylenol) Take 3 Tablets by mouth in the morning and 3 Tablets at noon and 3 Tablets before bedtime. 270 Tablet 0 4 07/14/19 24 Active HYDROmorphone HCl 2 MG Oral Tablet (Dilaudid) Take 1 Tablet by mouth every 4 hours as needed for Pain, Breakthrough. 18 Tablet 0 4 Active Additional Information Patient not taking.Reported on 06/23/2023 Naloxone HCl 0.4 MG/ML Injection Solution (Narcan) Inject 1mL into a large muscle for suspected opioid overdose. Seek medical help immediately. [email or web address] 1 mL 3 4 Active Additional Information [...] muscle spasm. 30 Tablet 0 4 Active Additional Information Patient taking differently:5 mg Oral TID(AM/NOON/HS),(No instructions reported), Reported on 06/29/2023 Gabapentin 300 MG Oral Capsule (Neurontin) Take 1 Capsule by mouth in the morning and 1 Capsule before bedtime. 60 Capsule 3 4 Active Sennosides-Docusate Sodium 8.6-50 MG Oral Tablet (Senokot-S) Take 2 Tablets by mouth in the morning and 2 Tablets before bedtime. 60 Tablet 1 4 Active Sennosides-Docusate Sodium 8.6-50 MG Oral Tablet (Senokot-S) Take 2 Tablets by mouth in the morning and 2 Tablets before bedtime. 60 Tablet 0 4 06/30/19 24 Discontinu ed(Refill) documented as of this encounter (statuses as of 06/30/2023) Active Problems Problem Noted Date Diagnosed Date [...] rinse after steroid. Test performed by Bibiana MANAGER CARGO CPFT [place] (myocardial infarction) 02/21/2019 Bilateral [...] osteoporosis 07/03/2018 Reactive depression 11/17/2017 Atherosclerosis of [place] co ronary artery of [place] heart without angina pectoris 07/22/2015 Overview: Single [...] rinse after steroid. Test performed by Bibiana MANAGER CARGO CPFT GENERAL OSTEOARTHROSIS BMI 32.0-32.9,adult Tobacco use disorder Hyperlipidemia with target LDL less than 70 Overview: ICD-10 update of inactive term RSD upper limb Overview: left arm Generalized anxiety disorder documented as of this encounter (statuses as of 06/30/2023) Resolved Problems Problem Noted Date Diagnosed Date [...] ISCHEMIC HRT DIS NOS Coronary atherosclerosis of [place] coronary artery 11/24/2016 Tobacco abuse 11/17/2017 documented as of this encounter (statuses as of 06/30/2023) Immunizations Name Administration Dates Next Due COVID-19 [...] Telephone Encounter - Courtney Penaloza MD - 06/30/2023 11:41 AM EDTSigned Prescriptions: Disp Refills Sennosides-Docusate Sodium 8.6-50 MG Oral *60 Tab*1 Sig: Take 2 Tablets by mouth in the morning and 2 Tablets before bedtime. Authorizing Provider: COURTNEY PENALOZA * Telephone Encounter - Lianna Mack RN - 06/30/2023 10:46 AM EDT This script was NOT filled by [facility] at discharge. Patient is asking for script for her Senokot. Please sign and send. Thank you. Did you pend patient's preferred pharmacy and medication before forwarding?yes Pharmacy: [facility] [address] Pending Prescriptions: Disp Refills Sennosides-Docusate Sodium 8.6-50 MG Oral*60 Tab*1 Sig: Take 2 Tablets by mouth in the morning and 2 Tablets before bedtime. Last Visit: Visit date not found (in office), Visit date not found (telemedicine) Next Visit: 07/01/2023 If no future appointments scheduled, and last appointment is greater than a year ago, please schedule patient for a follow-up appointment Last date the medication was ordered: 06/14/23 - but not filled at [facility] where it was sent. Is this request for a controlled substance?No [...] Visit Care Coordination and Integration [address] [facility] [place] [address] [place] [address] 07/20/2023 11:30 AM EDT Office Visit Vascular Surgery, [address] [place] [address] Kyle Olivares PA-C [address] [facility] [place] [address] 09/27/2023 9:40 AM EDT Office Visit Family Medicine [address] [place] [phone] Courtney Penaloza MD [address] [place] [address] [place] [address] 10/10/2023 4:00 PM EDT Office Visit Nephrology, [address] [place] [address] Charla Potter MD [address] [place] [address] 12/07/2023 9:20 AM EDT Office Visit Family [address] [place] [phone] Courtney Penaloza MD [address] [place] [address] [place] [address] Scheduled Procedures Name Priority [...] D LEVEL ONCE IN A LIFETIME-USE SMARTSET# [id number] Completed 10/16/2021, 12/27/2018 Alpha-1 Antitrypsin Discontinued GARDASIL-HPV [...] this encounter Medical Devices Implanted Type Area Shrimp Peeler Device Identifier Shelf Expiration Date Model / Serial / Lot Stent Graft Icast [id number] - [id number] - [id number] Implanted:Qty : 1 on 04/14/2022 by Nnamdi King MD at OR [facility] N/A: Mesenteric Artery GETINGE : VITOR [id number] 02/21/2023 [id number] / [id number] / [id number] Description:implanted in SMA Stent [place] 3.0x15 Rx - [id number] Implanted:Qty : 1 on 11/12/2022 by Patrice Jose MD at [facility] [employer] : VASCULAR [id number] 11/28/2023 [id number] / / [id number] 2 documented as of this encounter Visit [...] the patient have Health Care Power of Organ Tuner? Yes, in chart and reviewed as current [...] patient or by statute hierarchy) Care Teams Mill Set Up Relationship Specialty Start Date End Date Courtney Penaloza MD [address] [place] [address] [place] [address] PCP - General Family Medicine 10/17/19 documented as of this encounter
--- OUTSIDE RECORDS SUMMARY | 2023-08-31 06:29 | External Medical Summary | Summary of Care ---
Author Name Unknown Organization [facility] Address [address] [place] [address] Phone [phone] Care Team Providers Care Visual Merchandising Coordinator Name Role Phone Courtney Restrepo MD Primary Care Prov ider Encounter Details Date Type Department Care Team (Late st Contact Info) Description 06/30/2023 10:15 AM EDT Scheduled Telephone Care Coordination and Integration [address] [place] [address] Shivam Mckeon [facility] Health Security Administrator [address] [place] [address] Allergies Active Allergy Reactions Criticality [...] edema Nitroglycerin Hypotension 12/20/2018 Penicillins Nausea/vomiting 05/17/2007 [place] Hives 10/02/2018 Propoxyphene Edema face/lips/tongue,Hiv es 06/26/2009 [...] of Breath. 100 mL 3 11/29/2022 Active AmootoonTouch Delica Lancets 30GIndications:Type 2 diabetes mellitus with hemoglobin A1c goal of less than 8.0% ([facility]) Use to test glucose daily. E11.9 100 Each 5 11/29/2022 Active OneTouch Verio w/Device KitIndications:Type 2 diabetes mellitus with hemoglobin A1c goal of less than 8.0% ([facility]) Use to test glucose daily. E11.9 1 Kit 0 11/29/2022 Active Trelegy Ellipta 100-62.5-25 MCG/ACT Aerosol Powder Breath ActivatedIndications :COPD, group C, by GOLD 2017 classification ([facility]) Inhale 1 puff as directed [...] suspected opioid overdose. Seek medical help immediately. [email or web address] 1 mL 3 06/14/2023 Active Additional Information Patient not taking.Reported on 06/22/2023 Sennosides-Docusate Sodium 8.6-50 MG Oral Tablet (Senokot-S) Take 2 Tablets by mouth in the morning and 2 Tablets before bedtime. 60 Tablet 0 06/14/2023 Active Pantoprazole Sodium 40 MG Oral [...] rinse after steroid. Test performed by Bibiana HEAD LIBRARIAN CPFT [place] (myocardial infarction) 02/21/2019 Bilateral [...] osteoporosis 07/03/2018 Reactive depression 11/17/2017 Atherosclerosis of [place] co ronary artery of [place] heart without angina pectoris 07/22/2015 Overview: Single [...] rinse after steroid. Test performed by Bibiana HEAD LIBRARIAN CPFT GENERAL OSTEOARTHROSIS BMI 32.0-32.9,adult Tobacco use [...] ISCHEMIC HRT DIS NOS Coronary atherosclerosis of [place] coronary artery 11/24/2016 Tobacco abuse 11/17/2017 documented [...] of this encounter Progress Notes * Shivam Mckeon, Community Health Security Administrator - 06/30/2023 10:32 AM EDT Telemedicine visit: No Community Health Security Administrator (MERRY) documentation: CHW follow up phone call for RNCM. Patient reports to be doing excellent. She states her doctor is very pleased in her progress and stated that she is further along than some of their other patients at 6 months. Patient reports that her pain level is horrible right now. She reports that this is due to overdoing it on exercises. She said the one physical therapist said she was overdoing it and advised her to back off a little bit. Patient said she has a hard time of that because she just wants to continue to push. Patient states Dr. King is going to write another prescription for Oxycodone. She said shesent the message this morning. She reports to taking Oxycodone, Gabapentin and a muscle relaxer, which seems to help with the pain. Patient reports to having phantom pain, especially at night. Patient reports that her bowels are "a little messed up" right now. She explained that she needs a prescription for Senacot. She said she is taking Miralax and a laxative, but is still having troublemoving her bowels. She said the Senacot works well for her. Patient denies any blood in her stool since returning home. She said that was due to her being a little blocked up in her bowels. Patient reports to having a little cough and some congestion in her sinuses. She said she attributes that to her allergies and change of the seasons. Patient reports some swelling in her leg that they are aware of. She said the PT said this is because she isn't as active as she was before and advised her to keep her leg up to combat the swelling. Patient reports that she doesn't eat much and hasn't been able to weigh herself on 1 leg yet. She said they are working on her to be able to weigh on 1 leg. Patient agreeable to follow up call in 1 week. Akin Mckeon Community Health Worker [facility] [place] [phone] Electronically signed by Shivam Mckeon [facility] Health Security Administrator at 06/30/2023 10:41 AM EDT documented in this encounter Plan of Treatment Upcoming Encounters Date Type Department Care Team (Late st Contact Info) Description 07/01/2023 1:00 PM EDT Home Visit Care Coordination and Integration [address] [place] [address] Angy Ceballos [facility] Health Security Administrator [address] [place] [address] [place] [address] 07/20/2023 11:30 AM EDT Office Visit Vascular Surgery, [facility] [address] [facility] [place] [address] Kyle Olivares PA-C [address] [facility] [place] [address] 09/27/2023 9:40 AM EDT Office Visit Family [address] [phone] Courtney Restrepo MD [address] [place] [address] [place] [address] 10/10/2023 4:00 PM EDT Office Visit Nephrology, [address] [place] [address] Charla Potter MD [address] [place] [address] [place] [address] 12/07/2023 9:20 AM EDT Office Visit Family [address] [phone] Courtney Restrepo MD [address] [place] [address] [place] [address] Scheduled Procedures Name Priority Associated Diagnoses Date/Ti me ESOPHAGOGASTRODUODENOSCOPY ( EGD), FLEXIBLE, TRANSORAL, DIAGNOSTIC Recall Pendleton's esophagus Health Maintenance Due Date Last Done Comments DISCUSS TOBACCO CESSATION (REFER TO SMARTSET #8869) 1950 *ADVANCE DIRECTIVE NOT ON FILE 06/28/2020 [...] D LEVEL ONCE IN A LIFETIME-USE SMARTSET# [id number] Completed 10/16/2021, 12/27/2018 Alpha-1 Antitrypsin Discontinued GARDASIL-HPV [...] this encounter Medical Devices Implanted Type Area Sponge Buffer Device Identifier Shelf Expiration Date Model / Serial / Lot Stent Graft Icast [id number] - [id number] - [id number] Implanted:Qty : 1 on 04/14/2022 by Nnamdi King MD at OR [facility] N/A: Mesenteric Artery GETINGE : MAVESTA [id number] 02/21/2023 [id number] / [id number] / [id number] Description:implanted in SMA Stent Howie 3.0x15 Rx - [id number] Implanted:Qty : 1 on 11/12/2022 by Patrice Jose MD at [facility]S [facility] [employer] : VASCULAR [id number] 11/28/2023 [id number] / / [id number] documented as of this encounter Advance [...] the patient have Health Care Power of Delivery Driver Assistant? Yes, in chart and reviewed as current [...] patient or by statute hierarchy) Care Teams Visual Merchandising Coordinator Relationship Specialty Start Date End Date Courtney Restrepo MD [address] [place] [address] [place] [address] PCP - General Family Medicine 10/17/19 documented as of this encounter
--- OUTSIDE RECORDS SUMMARY | 2023-08-31 06:29 | External Medical Summary | Summary of Care ---
Author Name Unknown Organization [facility] Address [address] [place] [address] Phone [phone] Care Team Providers Care Um Specialist Name Role Phone Courtney Restrepo MD Primary Care Prov ider Reason for Visit * Reason Comments Post-Op Encounter Details Date Type Department Care Team (Latest Contact Info) Description 06/29/2023 2:30 PM EDT Office Visit Vascular Surgery, [facility] [address] [place] [address] Nnamdi King MD [address] [place] [address] Status post below-knee amputation of left lower extremity (HCC)*; PVD (peripheral vascular disease) (HCC); Celiac artery stenosis (HCC); Mesenteric ischemia, chronic (HCC); Hyperlipidemia with target LDL less than 70; Superior mesenteric artery stenosis (HCC); DM type 2 with diabetic peripheral neuropathy (HCC); COPD, group D, by GOLD 2017 classification ([facility]); Bilateral carotid artery stenosis; S/P femoral-femoral bypass surgery Allergies Active Allergy [...] edema Nitroglycerin Hypotension 12/20/2018 Penicillins Nausea/vomiting 05/17/2007 King Hives 10/02/2018 Propoxyphene Edema face/lips/tongue,Hiv es 06/26/2009 documented as of this encounter (statuses as of 06/29/2023) Medications Medication Sig Dispensed Refills Start Date [...] of Breath. 100 mL 3 11/29/2022 Active Mamina ShkolaTouch Delica Lancets 30GIndications:Type 2 diabetes mellitus with hemoglobin A1c goal of less than 8.0% (HCC) Use to test glucose daily. E11.9 100 Each 5 11/29/2022 Active OneTouch Verio w/Device KitIndications:Type 2 diabetes mellitus with hemoglobin A1c goal of less than 8.0% ([facility]) Use to test glucose daily. E11.9 1 Kit 0 11/29/2022 Active Trelegy Ellipta 100-62.5-25 MCG/ACT Aerosol Powder Breath ActivatedIndications :COPD, group C, by GOLD 2017 classification ([facility]) Inhale 1 puff as directed once a day 1 inhalation daily. Rinse mouth after every use. 60 Blister Dosing Unit 5 11/29/2022 Active NovoLOG FlexPen 100 UNIT/ML Subcutaneous Solution Pen-injector (insulin aspart)Indications:T ype 2 diabetes mellitus with hemoglobin A1c goal of less than 8.0% ([facility]) Units as per sliding scale 3 mL 3 02/04/2023 Active Insulin Glargine Solostar 100 UNIT/ML Subcutaneous Solution Pen-injector (Lantus SoloStar)Indications :Type 2 diabetes mellitus with hemoglobin A1c goal of less than 8.0% ([facility]) Inject 10 Units under the [...] goal of less than 8.0% ([facility]) Test glucose once daily E11.9 [...] suspected opioid overdose. Seek medical help immediately. [email or web address].[email or web address] 1 mL 3 06/14/2023 Active Additional Information [...] as of this encounter (statuses as of 06/29/2023) Active Problems Problem Noted Date Diagnosed Date [...] rinse after steroid. Test performed by Bibiana [employer] CP[employer] Old CA (myocardial infarction) 02/21/2019 Bilateral [...] osteoporosis 07/03/2018 Reactive depression 11/17/2017 Atherosclerosis of [place] co ronary artery of [place] heart without angina pectoris 07/22/2015 Overview: Single [...] and rinse after steroid. Test performed by A.Chioma [employer] GENERAL OSTEOARTHROSIS BMI 32.0-32.9,adult Tobacco use disorder Hyperlipidemia with target LDL less than 70 Overview: ICD-10 update of inactive term RSD upper limb Overview: left arm Generalized anxiety disorder documented as of this encounter (statuses as of 06/29/2023) Resolved Problems Problem Noted Date Diagnosed Date [...] ISCHEMIC HRT DIS NOS Coronary atherosclerosis of [place] coronary artery 11/24/2016 Tobacco abuse 11/17/2017 documented as of this encounter (statuses as of 06/29/2023) Immunizations Name Administration Dates Next Due COVID-19 [...] to Q uit: No; Counseling Given: No Comments:06/29/23 1 pack cigarettes daily, declined pamphlet Alcohol [...] Sign Reading Time Taken Comments Blood Pressure 138/60 06/29/2023 2:37 PM EDT Pulse 82 06/29/2023 2:37 PM EDT Temperature 35.9 C (96.6 F) 06/29/2023 2:37 PM ED T Respiratory Rate - - Oxygen Saturation - [...] Progress Notes * Kyle Olivares PA-C - 06/29/2023 10:30 AM EDT Images from the original note were not included. Date of Service: 06/29/2023 2:34 PM Carlotta Khan is a 72 year old female. PCP: MD Cassandra Morris MD (Gastroenterology) Kyle Chapa DO (Cardiology) Chief Complaint: Post op visit S/P Left BKA on 06/07/[address] King secondary to severe PAD & new ulceration to her left 3rd toe. HPI: Patient is a dedicated smoker with diffuse vascular disease. Pt had stubbed her L 3rd toe in 03/2023 and developed an ulceration which has failed to heal. Has been seen by local Bartender with instructions to follow up with Vascular Surgery as local wound care was not leading to healing of her wound. No reported fever or localized s/s of infection. Toe is painful and will awaken her at night despite use of Vicodin. CAROTID DISEASE: S/P right CEA in [id number] in [place]. Suffered a right middle cerebral artery distribution [...] recent amaurosis fugax. Carotid duplex exam at [facility] identified the right internal carotid with [...] s/p L to R fem-fem bypass in [place] in ~2004 following a cardiac cath that caused herright leg to "go ." On 11/06/2018 she had a thrombectomy of the fem-fem bypass and patch angioplasty of the distal anastamosis (right groin) by Dr. Jara at [facility], performed for ischemic right leg. 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 King on 09/23/2022 for critical limb ischemiawith gangrene right foot with left to right fem-fem bypass graft with stenosis in left external iliac artery Patient admitted [place] [facility]/04-11/24/2022 with sepsis/right 3rd to ulceration. S/P [...] for Shortness of Breath. 100 mL 3 OneTouch Delica Lancets 30G [...] on the skin daily. 30 Patch 0 Ondansetron HCl 4 MG Oral Tablet (Zofran) Take 1 Tablet by mouth every 8 hours as needed for Nausea. 20 Tablet 0 Sucralfate 1 GM Oral Tablet (Carafate) Take [...] mouth in the morning. 30 Tablet 0 Acetaminophen 325 MG Oral Tablet (Tylenol) Take 3 Tablets by mouth in the morning and 3 Tablets at noon and 3 Tablets before bedtime. 270 Tablet 0 HYDROmorphone HCl 2 MG Oral Tablet (Dilaudid) Take 1 Tablet by mouth every 4 hours as needed for Pain, Breakthrough. (Patient not taking: Reported on 06/23/2023) 18 Tablet 0 Naloxone HCl 0.4 MG/ML Injection Solution (Narcan) Inject 1mL into a large muscle for suspected opioid overdose. Seek medical help immediately. http://youtu.be/-[email or web address] (Patient not taking: Reported on 06/22/2023) 1 mL 3 Sennosides-Docusate Sodium 8.6-50 MG Oral Tablet (Senokot-S) Take 2 Tablets by mouth in the morningand 2 Tablets before bedtime. 60 Tablet 0 Pantoprazole Sodium 40 MG Oral Tablet Delayed Release (Protonix) TAKE 1 TABLET BY MOUTH 30 MINUTES BEFORE FIRST MEAL AND 1 TABLET BEFORE BEDTIME DO NOT CRUSH, SPLIT, OR CHEW 180 Tablet 3 Furosemide 40 MG Oral Tablet (Lasix) Take 1 Tablet by mouth in the morning. Patient still taking, even though was told not to - refuses to stop it.. (Patient not taking: Reported on 06/23/2023) oxyCODONE HCl 5 MG Oral Tablet (Oxy IR) Take 1 Tablet by mouth every 6 hours as needed for Pain, Moderate. 28 Tablet 0 Baclofen 5 MG Oral Tablet (Lioresal) Take 1 Tablet by mouth in the morning and 1 Tablet at noon and1 Tablet before bedtime. As needed for muscle spasm. 30 Tablet 0 Gabapentin 300 MG Oral Capsule (Neurontin) Take 1 Capsule by mouth in the morning and 1 Capsule before bedtime. 60 Capsule 3 No current facility-administered medications for this [...] and periorbital edema Nitroglycerin Hypotension Penicillins Nausea/vomiting King Hives Propoxyphene Edema face/lips/tongue and Hives Patient Active Problem List Diagnosis Code Moderate persistent asthma without complication J45.40 GENERAL OSTEOARTHROSIS M15.9 Cerebrovascular disease, arteriosclerotic, post-stroke I67.2, Z86.73 ADVANCE DIRECTIVE INFORMATION BMI 32.0-32.9,adult Z68.32 Tobacco use disorder F17.200 Hyperlipidemia with target LDL less than 70 E78.5 RSD upper limb G90.519 Type 2 diabetes mellitus with hemoglobin A1c goal of less than 8.0% ([facility]) E11.9 Controlled substance agreement signed Z79.899 Generalized anxiety disorder F41.1 Atherosclerosis of [place] coronary artery of [place] heart without angina pectoris I25.10 Reactive depression F32.9 Senile osteoporosis M81.0 PVD (peripheral vascular disease) ([facility]) I73.9 Iron deficiency anemia due to chronic blood loss D50.0 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 K22.70 Chronic superficial gastritis with bleeding K29.31 Gastrointestinal hemorrhage with melena K92.1 Lung nodules R91.8 Moderate mitral regurgitation I34.0 Old CA (myocardial infarction) I25.2 Bilateral carotid artery stenosis I65.23 DM type 2 with diabetic peripheral neuropathy ([facility]) E11.42 Right hand tendonitis M77.8 Generalized arthritis M19.90 Hand arthritis M19.049 Centrilobular emphysema ([facility]) J43.2 Polyneuropathy in other diseases classified elsewhere ([facility]) G63 Superior mesenteric artery stenosis ([facility]) 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 ([facility]) I77.1 Major depressive disorder, recurrent, unspecified ([facility]) F33.9 Non-proliferative diabetic retinopathy, both eyes ([facility]) E11.3293 Recurrent major depressive disorder, in partial remission ([facility]) F33.41 Mesenteric ischemia, chronic ([facility]) K55.1 COPD, group D, by GOLD 2017 classification ([facility]) J44.9 Chronic ischemic heart disease I25.9 Advanced directives, counseling/discussion Z71.89 Type 2 diabetes mellitus with peripheral artery disease ([facility]) E11.51 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- dominant side ([facility]) I69.354 Wound drainage T14.8XXA 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 History of cardiac arrest Z86.74 Shock ([facility]) R57.9 Lactic acidosis E87.20 Transaminitis R74.01 Encephalopathy acute G93.40 Pathological fracture of vertebra due to osteoporosis with routine healing, subsequent encounter M80.08XD Other disorders of phosphorus metabolism E83.39 S/P AKA (above knee amputation), left ([facility]) Z89.612 Past Medical History: Diagnosis Date Asthma, allergic Benign neoplasm of colon 01/2009 3 mm tubular adenoma in sigmoid, f/u colonoscopy in 5 yrs BMI 32.0-32.9,adult Calculus of kidney spontanteous passage Cardiac arrest ([facility]) 11/04/2022 history Carotid artery stenosis, asymptomatic left Carotid Stenosis, infarct w/in 8 wks 08/20/2008 Cellulitis of right foot 07/02/2019 [facility] for severe pain, cellulitis right foot Cerebrovascular Dz, 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 Pt with hx of embolic stroke. L hemiplegia Chronic ischemic heart disease Contusion of hand, right 05/21/2016 Coronary atherosclerosis of [place] coronary artery DM type 2, goal A1c below 7 1994 after being on steroids for a while Fracture of three ribs on left side 02/25/2015 left 3,4,5 Generalized anxiety disorder Generalized osteoarthritis Hidradenitis had skin grafts under both arms by Dr Burrell Hyperlipidemia LDL goal < 70 Hypoxia 02/28/2015 [place], related to hypoventilation from rib fx pain Intracerebral hemorrhage (HCC) 07/03/2008 Need for hepatitis C screening test 08/08/2014 negative Obesity, BMI not known used to weigh 280 Old myocardial infarct x 2 with stent placement OTHER LATE EFFECTS CEREBROVASCULAR DISEASE 07/03/2008 RSD upper limb left arm Scabies 06/07/2017 Treated in [place] ER. Senile osteoporosis 07/03/2018 high risk Simple [...] performed by Nnamdi King MD at [place] [facility] ANKLE-BRACHIAL INDEX (CARDIOLOGY) Bilateral 11/03/2018 left 1.0, right 0.32 ANKLE-BRACHIAL INDEX (CARDIOLOGY) Bilateral 12/29/2018 Right 0.73, left 0.9 AORTOGRAM ABDOMINAL-TECH ONLY 04/14/2022 IMAGING SUPERVISION & INTERPRETATION ABDOMINAL AO performed by Nnamdi King MD at [place] [facility] APPENDECTOMY W/OTHER PROCEDURE CARDIAC ANGIOPLASTY, PERCUTANEOUS, 1 ARTERY Bilateral 11/12/2022 PTCA, CARDIAC ANGIOPLASTY, PERCUTANEOUS, 1 ARTERY performed by Patrice Jose MD at CARDIAC LABS [facility] COLONOSCOPY THRU STOMA, W/BIOPSY 01/2009 adenomatous polyp, f/u colonoscopy in 5 yrs COLONOSCOPY, DIAGNOSTIC (RECTUM) 07/13/2018 poor prep, repeat 6 mo/COLONOSCOPY FLEXIBLE PROXIMAL DIAGNOSTIC performed by Cassandra Hart MD at ENDOSCOPY [facility] COLONOSCOPY, DIAGNOSTIC (RECTUM) 09/27/2018 6 mm descending tubular adenoma, performed by Cassandra Hart MD at ENDOSCOPY [facility] COMPOSITE SKIN GRAFT b/l axilla, donor site b/l thighs CORONARY ANGIOGRAPHY W/LEFT HEART CATH N/A 11/10/2022 CORONARY ANGIOGRAPHY W/LEFT HEART CATH performed by Patrice Jose MD at [facility]ARDIAC LABS [facility] CT ABDOMEN/PELVIS 09/28/[address] [...] Cassandra Hart MD at ENDOSCOPY [facility] EGD, FLEXIBLE, DIAGNOSTIC 01/19/2019 gastric irritation on /[facility] EGD, FLEXIBLE, W/BIOPSY 09/27/2018 1 cm salmon colored mucosa suggestive of short segment Pendleton's, mild erythema antrum FEM/POP ARTERY REVASC W/ANGIOPLASTY Left 04/14/2022 FEM/POP ARTERY REVASC W/ANGIOPLASTY performed by Nnamdi King MD at [place] [facility] FEM/POP ARTERY REVASC W/ANGIOPLASTY Right 09/23/2022 FEM/POP ARTERY REVASC W/ANGIOPLASTY performed by Nnamdi King MD at OR [facility] ILIAC ART. REVASCULARIZATION W/ANGIOPLASTY Left 09/23/2022 ILIAC ARTERY REVASCULARIZATION W/ANGIOPLASTY performed by Nnamdi King MD at OR [facility] IOF VASC CAROTID DUPLEX, BILATERAL 12/06/2012 Right carotid artery duplex examination indicates evidence of a less than 50% stenosis of the internal carotid artery. IR ARTERIOGRAM EXTREMITY BILATERAL 04/14/2022 ANGIOGRAPHY EXTREMITY BILATERAL performed by Nnamid King MD at OR [facility] IR ARTERIOGRAM EXTREMITY BILATERAL N/A 09/23/2022 ANGIOGRAPHY EXTREMITY BILATERAL performed by Nnamdi King MD at OR [facility] IR STENT PLACEMENT, INITIAL ARTERY N/A 04/14/2022 NON LOWER EXTREMITY OR CAROTID STENT REVASCULARIZATION WITH RADIOLOGIC SUPERVISION AND INTERPRETATION performed by Nnamdi King MD at [facility] MAMMOGRAM SCREENING BILATERAL Bilateral 08/20/2014 almost entirely fat, category 1 normal MAMMOGRAM SCREENING BILATERAL Bilateral 05/12/2017 scattered fibroglandular densities category 1 normal MOBILE DXA 07/03/2018 Lumbar T -0.7, left femur T -2.9, high risk, treatment recommended NEG PRESSURE WOUND THERAPY DME </= 50 SQ CM N/A 11/04/2022 NEGATIVE PRESSURE WOUND THERAPY LESS THAN 50SQ CM performed by Nnamdi King MD at OR [facility] NEG PRESSURE WOUND THERAPY DME </= 50 SQ CM N/A 11/16/2022 NEGATIVE PRESSURE WOUND THERAPY LESS THAN 50SQ CM performed by Nnamdi King MD at OR [facility] NM HEPATOBILIARY SYSTEM WITH PHARMACOLOGIC INTERVENTION 10/18/2018 normal hepatic scan with normal GE ejection fraction PARTIAL AMPUTATION OF TOE Right 11/04/2022 AMPUTATION TOE INTERPHALANGEAL JOINT performed by Nnamdi King MD at OR [facility] PARTIAL HYSTERECTOMY PFT/BA BRONCHODILATOR N/A 03/11/2021 probably normal PFT with some airway reversibility PLACE INTRACORONARY STENT, FIRST VS [id number] REMOVE CATARACT, INSERT LENS PROSTH Left 01/27/2017 Dr Gunter REPAIR OF BLADDER NECK 1994 Dr Montesinos/needed redone due to infection SUBQ DEBRIDEMENT, FIRST 20 CM2 N/A 11/04/2022 DEBRIDEMENT SKIN AND SUBCUTANEOUS TISSUE performed by Nnamdi King MD at OR [facility] SUBQ DEBRIDEMENT, FIRST 20 CM2 N/A 11/16/2022 DEBRIDEMENT SKIN AND SUBCUTANEOUS TISSUE performed by Nnamdi King MD at OR [facility] SYNTH BYPASS, FEM-FEM 2004 fem-fem bypass, [place] THROMBOENDARECTOMY W/PATCH,NECK INCISION [id number] right CEA, [place] THROMBOENDARECTOMY W/PATCH,NECK INCISION 08/19/2008 right redo eversion carotid endarterectomy /Dr. Bynum TOOTH ROOT REMOVAL 01/23/2016 full mouth extraction, Dr Dmitry CALLAHAN [place]OON ANGIOPLASTY OPEN/PERC IMAGE 1ST ARTERY Right 04/14/2022 ANGIOPLASTY ARTERIAL (EXCEPT LOWER EXTREMITY) performed by Nnamdi King MD at OR [facility] US ABDOMEN COMPLETE 08/08/2018 normal VASC DUPLEX [...] Use Smoking status: Every Day Current packs/day: 0.25 Average packs/day: 0.3 packs/day for 61.9 years (15.5 ttl pk-yrs) Types: Cigarettes Start date: 1962 Smokeless tobacco: Never Tobacco comments: 04/06/23 4 cigarettes daily, declined pamphlet Vaping Use Vaping Use: Never used Substance and Sexual Activity Alcohol use: No Drug use: No Sexual activity: Not on file Other Topics Concern Not on file Social History Narrative >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 LBKA site wound well healed PSYCHIATRIC: orientation to time, place and person normal and recent and remote memory normal. EYES: conjunctivae normal, eye lids normal, pupils normal and irises normal. NEUROLOGIC: Motor function grossly intact. Left hand contracture with mild student financial aid manager strength weakness. PULSE SCALE: Carotid Right:----Bruit: Yes Left:----Bruit: No Radial Right: 0 Left: 0 Brachial Right: 2 Left: 0 Femoral Right: 1 Left: 0 Popliteal Right: 0 Left: 0 Dorsalis Pedis Right: 0, +Doppler signal Left: BKA Posterior Tibial Right: 0, +Doppler signal Left: BKA PULSE SCALE: 4=Aneurysmal; 3=Normal; 2=Diminished; 1=Barely Palpable; 0=Absent DIAGNOSTIC STUDIES: 05/23/2023 Carotid Duplex PAIGE 170/10 (heavily calcified) and LICA 436/132. 05/23/2023 Mesenteric Duplex: Ao 79, Celiac 134, App487, Splenic 83, SMA 117/159/148/164. 05/23/2023 Graft Duplex: L EIA 147, L EMPLOYEE DEVELOPMENT MANAGER 253, L DFA 94 L SFA 379/314/106/100, L Pop 24, inflow 69, L anast 125, BPG 75/68/55, R anast 74, outflow 69, R EMPLOYEE DEVELOPMENT MANAGER 65, R DFA 68, R SFA 58/70/47/153, [...] lab tests were reviewed by me on 06/29/23 CARDIAC STUDIES: 12/01/2022 ECHO ([facility]) 11/13/2023 Card Cath: Ostial LAD with 95% stenosis s/p IVUS guided PCI. IVUS showed critical stenosisat the ostium of LAD. LM-LAD stented with [id number] [place] stent. Mid portion post dilated with 3.0mm [...] Mild tricuspid regurgitation is present. IMPRESSIONS: S/P Left BKA on 06/07/[address] [...] anastamosis (right groin) by Dr. Jara at [facility] on 11/06/18, performed for ischemic right leg. Left to right fem-fem bypass in [place] in approximately 2004. S/P SMA stent and angioplasty of LCFA on 04/14/[address] King for chronic mesenteric ischemia (90% stenosis of SMA and 80% Celiac stenosis) S/P angioplasty of LCFA 04/14/[address] King for LFA stenosis (status post [id number] bypass grafting). Redo R CEA <50% stenosis, heavily calcified, asymptomatic. Asymptomatic LICA 70-99% stenosis. S/P redo right CEA by Dr. Bynum 08/19/2008 (initial right CEA in [place]); R MCA infarction 05/20 with hemorrhagic conversion 06/20. Residual left UE weakness with hand contracture. Left axillary artery occlusion, asymptomatic. CAD, h/o 11/12/2022 PCI/stent to LM/LAD [facility] Cardiac Surgery declined CABG/MVR due to high risk for surgery Mod Mitral Regurg per ECHO. Dyslipidemia. Tobacoc dependency. [...] as the interventional and noninterventional therapeutic options. Duplex today suggesting patent SMA stent. She remains asymptomatic, will [...] readings utilizing RUE for accuracy. Continue daily 75 mg Plavix for graft patency. Recommend resumption of her high intensity statin therapy (daily 40 mg Lipitor) per PCP. RTC July 19 for suture removal The patient was seen and examined with Nnamdi King MD. Kyle Olivares PA-C I have reviewed the advanced practitioner's documentation on the date of service referenced in note, and I agree with, and take responsibility for the plan of care. S/p left BKA looks good Will see back on July 19 for suture removal Will then see back with vascular labs in the future Nnamdi King MD Section of Vascular and [place] [address] [phone] documented in this encounter Nursing Notes * Demi Hutchins LPN - 06/29/2023 2:41 PM EDT Reviewed the option of transferring scripts to [facility] pharmacy with patient and / or [...] Visit Care Coordination and Integration [address] [place] [address] Angy Ceballos [facility] Senior Scientist [address] [place] [address] [place] [address] 07/20/2023 11:30 AM EDT Office Visit Vascular Surgery, [facility] [address] [facility] [place] [address] Kyle Olivares PA-C [address] [place] [address] 09/27/2023 9:40 AM EDT Office Visit [address] [phone] Courtney Restrepo MD [address] [place] [address] [place] [address] 10/10/2023 4:00 PM EDT Office Visit Nephrology, [facility] [address] [place] [address] Charla Potter MD [address] [place] [id number] 12/07/2023 9:20 AM EDT Office Visit [address] [phone] Courtney Restrepo MD [address] [place] [address] [place] [address] Scheduled Procedures Name Priority Associated Diagnoses Date/Ti [...] D LEVEL ONCE IN A LIFETIME-USE SMARTSET# [id number] Completed 10/16/2021, 12/27/2018 Alpha-1 Antitrypsin Discontinued GARDASIL-HPV [...] this encounter Medical Devices Implanted Type Area Handle Bender Device Identifier Shelf Expiration Date Model / Serial / Lot Stent Graft Icast [id number] - [id number] - [id number] Implanted:Qty : 1 on 04/14/2022 by Nnamdi King MD at [place] [facility] N/A: Mesenteric Artery GETINGE : MAANASTASIYAT [id number] 02/21/2023 [id number] / [id number] / [id number] Description:implanted in SMA Stent Howie 3.0x15 Rx - [id number] Implanted:Qty : 1 on 11/12/2022 by Patrice Jose MD at CARDIAC LABS [facility] [employer] : VASCULAR [id number] 11/28/2023 [id number] / / [id number] documented as of this encounter Visit Diagnoses Diagnosis Status post below-knee amputation of left lower extremity (HCC)- Primary PVD (peripheral vascular disease) (HCC) Peripheral vascular disease, unspecified Celiac artery stenosis (HCC) Celiac artery compression syndrome Mesenteric ischemia, chronic (HCC) Chronic vascular insufficiency of intestine Hyperlipidemia with target LDL less than 70 Other and unspecified hyperlipidemia Superior mesenteric artery stenosis (HCC) Chronic vascular insufficiency of intestine DM type 2 with diabetic peripheral neuropathy ([facility]) Type II or unspecified type diabetes mellitus with neurological manifestations, not stated as uncontrolled COPD, group D, by GOLD 2017 classification ([facility]) Bilateral carotid artery stenosis Occlusion and stenosis of multiple and bilateral precerebral arteries without mention of cerebral infarction S/P femoral-femoral bypass surgery documented in this [...] the patient have Health Care Power of Training Lead? Yes, in chart and reviewed as current [...] patient or by statute hierarchy) Care Teams Um Specialist Relationship Specialty Start Date End Date Courtney Restrepo MD [address] [place] [address] [place] [address] PCP - General Family Medicine 10/17/19 documented as of this encounter
--- OUTSIDE RECORDS SUMMARY | 2023-08-31 06:29 | External Medical Summary | Summary of Care ---
Author Name Unknown Organization [facility] Address [address] [place] [address] Phone [phone] Care Team Providers Care Copy Manager Name Role Phone Courtney Restrepo MD Primary Care Prov ider Reason for Visit * Reason Onset Date Comments Medication Refill 06/30/2023 Status Check 06/30/2023 Encounter Details Date Type Department Care Team (Late st Contact Info) Description 06/30/2023 Refill Vascular Surg [facility] [address] [place], [place] [id number] Nnamdi King MD [address] [place] [address] Allergies Active Allergy Reactions Criticality [...] edema Nitroglycerin Hypotension 12/20/2018 Penicillins Nausea/vomiting 05/17/2007 [place] Hives 10/02/2018 Propoxyphene Edema face/lips/tongue,Hiv es 06/26/2009 [...] opioid overdose. Seek medical help immediately. [email or web address] 1 mL 3 06/14/2023 Active Additional Information [...] rinse after steroid. Test performed by [facility] MEDICAL TECHNOLOGIST BLOOD BANK CPFT [place] (myocardial infarction) 02/21/2019 Bilateral carotid artery stenosis [...] osteoporosis 07/03/2018 Reactive depression 11/17/2017 Atherosclerosis of [place] co ronary artery of [place] heart without angina pectoris 07/22/2015 Overview: Single [...] rinse after steroid. Test performed by [facility] MEDICAL TECHNOLOGIST BLOOD BANK CPFT GENERAL OSTEOARTHROSIS BMI 32.0-32.9,adult Tobacco use [...] ISCHEMIC HRT DIS NOS Coronary atherosclerosis of [place] coronary artery 11/24/2016 Tobacco abuse 11/17/2017 documented [...] 07/01/2023 9:14 AM EDT Pt called the [facility] Specialty refill line in error. She was asking to speak with a nurse. Caller transferred. Thanks! Dorothy Lang CPhT Mercerizing Range Controller III [facility] ([facility]) (Formerly [...] preferred pharmacy and medication before forwarding?yes Pharmacy: [facility] [address] Pending Prescriptions: Disp Refills oxyCODONE HCl [...] Visit Care Coordination and Integration [address] [place] [address] Angy Ceballos [facility] Radiology Receptionist [address] [place] [address] [place] [address] 07/20/2023 11:30 AM EDT Office Visit Vascular Surgery, [facility] 132 [facility] [place] [address] Kyle Olivares PA-C [address] [facility] [place] [id number] 09/27/2023 9:40 AM EDT Office Visit Family Medicine [address] [phone] Courtney Restrepo MD [address] [place] [address] [place] [address] 10/10/2023 4:00 PM EDT Office Visit Nephrology, [address] [place] [address] Charla Potter MD [address] [place], [place] [address] [address] 12/07/2023 9:20 AM EDT Office Visit Family [address] [phone] Courtney Restrepo MD [address] [place] [address] [place] [address] Scheduled Procedures Name Priority Associated Diagnoses Date/Ti me ESOPHAGOGASTRODUODENOSCOPY ( EGD), FLEXIBLE, TRANSORAL, DIAGNOSTIC Recall Pendleton's esophagus Health Maintenance Due Date Last Done Comments DISCUSS TOBACCO CESSATION (REFER TO SMARTSET #0223) 1950 *ADVANCE DIRECTIVE NOT ON FILE 06/28/2020 [...] D LEVEL ONCE IN A LIFETIME-USE SMARTSET# [id number] Completed 10/16/2021, 12/27/2018 Alpha-1 Antitrypsin Discontinued GARDASIL-HPV [...] this encounter Medical Devices Implanted Type Area Escalator Installer Device Identifier Shelf Expiration Date Model / Serial / Lot Stent Graft Icast [id number] - [id number] - [id number] Implanted:Qty : 1 on 04/14/2022 [place] [facility] [place] Mesenteric Artery GETINGE : STEVEVESTA [id number] 02/21/2023 [id number] / [id number] / [id number] Description:implanted in SMA Stent [place] 3.0x15 Rx - [id number] Implanted:Qty : 1 on 11/12/2022 by Patrice Jose [place] [facility] [place] [employer] [place] VASCULAR [id number] 11/28/2023 [id number] / / [id number] documented as of this encounter Advance [...] the patient have Health Care Power of Chicken Stuffer? Yes, in chart and reviewed as current [...] patient or by statute hierarchy) Care Teams Copy Manager Relationship Specialty Start Date End Date Courtney Restrepo MD [address] [place] [address] [place] [address] PCP - General Family Medicine 10/17/19 documented as of this encounter
--- OUTSIDE RECORDS SUMMARY | 2023-08-31 06:30 | External Medical Summary | Summary of Care ---
Author Name Unknown Organization [facility] Address [address] [place] [address] Phone [phone] Care Team Providers Care Stitcher Special Machine Name Role Phone Courtney Restrepo MD Primary Care Prov ider Reason for Visit * Reason Onset Date Comments Other 06/24/2023 DME for Non whee ling walker Encounter Details Date Type Department Care Team (Late st Contact Info) Description 06/24/2023 Telephone Family [address] [phone] Courtney Restrepo MD [address] [place] [address] [place] [address] Other (DME for Non wheeling walker ) Allergies Active Allergy Reactions Criticality Noted [...] edema Nitroglycerin Hypotension 12/20/2018 Penicillins Nausea/vomiting 05/17/2007 [place] Hives 10/02/2018 Propoxyphene Edema face/lips/tongue,Hiv es 06/26/2009 documented as of this encounter (statuses as of 06/24/2023) Medications Medication Sig Dispensed Refills Start Date [...] less than 8.0% ([facility]) Use to test glucose daily. E11.9 100 Each 5 11/29/2022 Active OneTouch Verio w/Device KitIndications:Type 2 diabetes mellitus with hemoglobin A1c goal of less than 8.0% ([facility]) Use to test glucose daily. E11.9 [...] less than 8.0% ([facility]) Units as per sliding scale 3 mL 3 02/04/2023 Active Insulin Glargine Solostar 100 UNIT/ML Subcutaneous Solution Pen-injector (Lantus SoloStar)Indications :Type 2 diabetes mellitus with hemoglobin A1c goal of less than 8.0% ([facility]) Inject 10 Units under the skin [...] the morning. 30 Tablet 1 06/14/2023 Active Gabapentin 100 MG Oral Capsule (Neurontin) Take 1 Capsule by mouth in the morning and 1 Capsule at noon and 1 Capsule before bedtime. 90 Capsule 1 06/14/2023 Active Additional Information Patient taking differently: 200 [id number], Informant: At Discharge, Reported on 06/22/2023 Metoprolol Succinate ER 25 MG Oral Tablet [...] opioid overdose. Seek medical help immediately. [email or web address] 1 mL 3 06/14/2023 Active Additional Information [...] muscle spasm. 30 Tablet 0 06/23/2023 Active documented as of this encounter (statuses as of 06/24/2023) Active Problems Problem Noted Date Diagnosed Date S/P AKA (above knee amputation), left 06/07/2023 [...] rinse after steroid. Test performed by [facility] FILM LOADER CPFT [place] (myocardial infarction) 02/21/2019 Bilateral [...] osteoporosis 07/03/2018 Reactive depression 11/17/2017 Atherosclerosis of [place] co ronary artery of [place] heart without angina pectoris 07/22/2015 Overview: Single [...] rinse after steroid. Test performed by [facility] FILM LOADER CPFT GENERAL OSTEOARTHROSIS BMI 32.0-32.9,adult Tobacco use disorder Hyperlipidemia with target LDL less than 70 Overview: ICD-10 update of inactive term RSD upper limb Overview: left arm Generalized anxiety disorder documented as of this encounter (statuses as of 06/24/2023) Resolved Problems Problem Noted Date Diagnosed Date [...] ISCHEMIC HRT DIS NOS Coronary atherosclerosis of [place] coronary artery 11/24/2016 Tobacco abuse 11/17/2017 documented as of this encounter (statuses as of 06/24/2023) Immunizations Name Administration Dates Next Due COVID-19 [...] encounter Miscellaneous Notes * Telephone Encounter - Jose Enrique Guo LPN - 06/24/2023 12:05 PM EDT Walker: Order [id number] for Carlotta Khan (1950) is being fulfilled by [facility]. documented in this encounter Plan of Treatment Upcoming Encounters Date Type Department Care Team (Late st Contact Info) Description 06/29/2023 10:30 AM EDT Office Visit Vascular Surgery, [facility] 132 [facility] [place] [address] Nnamdi King MD [address] [place] [address] 09/27/2023 9:40 AM EDT Office Visit Family Medicine [address] [phone] Courtney Resterpo MD [address] [place] [address] [place] [address] 10/10/2023 4:00 PM EDT Office Visit Nephrology, [address] [place] [address] Charla Potter MD [address] [place], [place] [address] [address] 12/07/2023 9:20 AM EDT Office Visit Family [address] [place] [phone] Courtney Restrepo MD [address] [place] [address] [place] [address] Scheduled Procedures Name Priority Associated Diagnoses Date/Ti [...] D LEVEL ONCE IN A LIFETIME-USE SMARTSET# [id number] Completed 10/16/2021, 12/27/2018 Alpha-1 Antitrypsin Discontinued GARDASIL-HPV [...] this encounter Medical Devices Implanted Type Area Associate Software Engineer Device Identifier Shelf Expiration Date Model / Serial / Lot Stent Graft Icast [id number] - [id number] - [id number] Implanted:Qty : 1 on 04/14/2022 by Nnamdi King MD at [place] [facility] [place] N/A: Mesenteric Artery GETINGE : VITOR [id number] 02/21/2023 [id number] / [id number] / [id number] Description:implanted in SMA Stent [place] 3.0x15 Rx - [id number] Implanted:Qty : 1 on 11/12/2022 by Patrice Jose MD at [facility] [place] MEDTRON[employer] : VASCULAR [id number] 11/28/2023 [id number] / / [id number] documented as of this encounter Advance [...] the patient have Health Care Power of Cutter Helper? Yes, in chart and reviewed as current [...] patient or by statute hierarchy) Care Teams Stitcher Special Machine Relationship Specialty Start Date End Date Courtney Restrepo MD [address] [place] [address] [place] [phone] PCP - General Family Medicine 10/17/19 documented as of this encounter
--- OUTSIDE RECORDS SUMMARY | 2023-08-31 06:30 | External Medical Summary | Summary of Care ---
Author Name Unknown Organization [facility] Address [address] [place] [address] Phone [phone] Care Team Providers Care Client Project Coordinator Name Role Phone Courtney Restrepo MD Primary Care Prov ider Reason for Visit * Reason Onset Date Comments Med Request 06/27/2023 Encounter Details Date Type Department Care Team (Late st Contact Info) Description 06/27/2023 Telephone Family [address] [phone] Courtney Restrepo MD [address] [place] [address] [place] [address] Med Request Allergies Active Allergy Reactions Criticality Noted Date [...] edema Nitroglycerin Hypotension 12/20/2018 Penicillins Nausea/vomiting 05/17/2007 [place] Hives 10/02/2018 Propoxyphene Edema face/lips/tongue,Hiv es 06/26/2009 documented as of this encounter (statuses as of 06/28/2023) Medications Medication Sig Dispensed Refills Start Date [...] mL 3 3 Active OneTouch Delica Lancets 30GIndications:Typ e [...] suspected opioid overdose. Seek medical help immediately. [email or web address] 1 mL 3 4 Active Additional Information Patient not taking.Reported on 06/22/2023 Sennosides-Docusat e Sodium 8.6-50 MG Oral Tablet (Senokot-S) Take 2 Tablets by mouth in the morning and 2 Tablets before bedtime. 60 Tablet 0 4 Active Pantoprazole Sodium 40 MG Oral [...] bedtime. 60 Capsule 3 4 Active Gabapentin 100 MG Oral Capsule (Neurontin) Take 1 Capsule by mouth in the morning and 1 Capsule at noon and 1 Capsule before bedtime. 90 Capsule 1 4 06/27/19 24 Discontinued documented as of this encounter (statuses as of 06/28/2023) Active Problems Problem Noted Date Diagnosed Date [...] rinse after steroid. Test performed by [facility] NARCOTICS AND/OR VICE DETECTIVE CPFT [place] (myocardial infarction) 02/21/2019 Bilateral [...] osteoporosis 07/03/2018 Reactive depression 11/17/2017 Atherosclerosis of [place] co ronary artery of [place] heart without angina pectoris 07/22/2015 Overview: [...] rinse after steroid. Test performed by [facility] NARCOTICS AND/OR VICE DETECTIVE CPFT GENERAL OSTEOARTHROSIS BMI 32.0-32.9,adult Tobacco use disorder Hyperlipidemia with target LDL less than 70 Overview: ICD-10 update of inactive term RSD upper limb Overview: left arm Generalized anxiety disorder documented as of this encounter (statuses as of 06/28/2023) Resolved Problems Problem Noted Date Diagnosed Date [...] ISCHEMIC HRT DIS NOS Coronary atherosclerosis of [place] coronary artery 11/24/2016 Tobacco abuse 11/17/2017 documented as of this encounter (statuses as of 06/28/2023) Immunizations Name Administration Dates Next Due COVID-19 [...] encounter Miscellaneous Notes * Telephone Encounter - Dunia Nieves RN - 06/28/2023 3:37 PM EDT Pt aware * Telephone Encounter - Courtney Restrepo MD - 06/27/2023 2:28 PM EDT Yes OK to increase gabapentin to 300mg BID. Ask her to let us know if she experiences dizziness again. * Telephone Encounter - Yanni Charles LPN - 06/27/2023 9:25 AM EDT Pt is calling. Is asking if her Gabapentin could be increased to 300 mg in the AM and 300 mg at HS, as previously prescribed? Has not been able to sleep with current dose. Has to take 3- 100 mg capsules last night to sleep. Reports that her vascular surgeon decreased the dose due to experiencing dizziness. States that this was due to taking gabapentin and pain medication at the same time- Is no longer doing this and has not experienced dizziness since. The increased dose of Gabapentin helps the the nerve pain in her left arm and stump. Is perform exercises with the increased dose. Pharmacy selected. Please advise. documented in this encounter Plan of Treatment Upcoming Encounters Date Type Department Care Team (Late st Contact Info) Description 06/29/2023 2:30 PM EDT Office Visit Vascular Surgery, [facility] [address] [facility] [place] [address] Nnamdi King MD [address] [place], [place] [id number] 07/01/2023 1:00 PM EDT Home Visit Care Coordination and Integration [address] [place] [address] Angy Ceballos [facility] Support Associate [address] [place] [address] [place] [address] 09/27/2023 9:40 AM EDT Office Visit [address] [phone] Courtney Restrepo MD [address] [place] [address] [place] [address] 10/10/2023 4:00 PM EDT Office Visit Nephrology, [address] [place] [address] Charla Potter MD [address] [place] [address] 12/07/2023 9:20 AM EDT Office Visit [address] [phone] Courtney Restrepo MD [address] [place] [address] [place] [address] Scheduled Procedures Name Priority Associated Diagnoses Date/Ti [...] D LEVEL ONCE IN A LIFETIME-USE SMARTSET# [id number] Completed 10/16/2021, 12/27/2018 Alpha-1 Antitrypsin Discontinued GARDASIL-HPV [...] this encounter Medical Devices Implanted Type Area International Manager Device Identifier Shelf Expiration Date Model / Serial / Lot Stent Graft Icast [id number] - [id number] - [id number] Implanted:Qty : 1 on 04/14/2022 by Nnamdi King MD at [place] [facility] [place] N/A: Mesenteric Artery GETINGE : MAQUET [id number] 02/21/2023 [id number] / [id number] / [id number] Description:implanted in SMA Stent [place] 3.0x15 Rx - [id number] Implanted:Qty : 1 on 11/12/2022 by Patrice Jose MD at [facility] [place] MED[employer]ON[employer] : VASCULAR [id number] 11/28/2023 [id number] / / [id number] documented as of this encounter Advance [...] the patient have Health Care Power of Spa Therapist? Yes, in chart and reviewed as current [...] patient or by statute hierarchy) Care Teams Client Project Coordinator Relationship Specialty Start Date End Date Courtney Restrepo MD [address] [place] [address] [place] [address] PCP - General Family Medicine 10/17/19 documented as of this encounter
--- OUTSIDE RECORDS SUMMARY | 2023-08-31 06:30 | External Medical Summary | Summary of Care ---
Author Name Unknown Organization [facility] Address [address] [place] [address] Phone [phone] Care Team Providers Care Route Specialist Name Role Phone Courtney Resterpo MD Primary Care Prov ider Reason for Visit * Reason Onset Date Comments case management 02/08/2023 Encounter Details Date Type Department Care Team (Late st Contact Info) Description 02/08/2023 Conductor And Engineer Telephone Care Coordination and Integration [address] [place] [address] Lianna Mack RN [address] [place] [address] case management Allergies Active Allergy [...] edema Nitroglycerin Hypotension 12/20/2018 Penicillins Nausea/vomiting 05/17/2007 [place] Hives 10/02/2018 Propoxyphene Edema face/lips/tongue,Hiv es 06/26/2009 documented as of this encounter (statuses as of 06/27/2023) Medications Medication Sig Dispensed Refills Start Date [...] and 1 Capful before bedtime. 0 Active documented as of this encounter (statuses as of 06/27/2023) Active Problems Problem Noted Date Diagnosed Date [...] rinse after steroid. Test performed by [facility] AUTOMATED WEAVER CPFT [place] (myocardial infarction) 02/21/2019 Bilateral carotid artery stenosis [...] osteoporosis 07/03/2018 Reactive depression 11/17/2017 Atherosclerosis of [place] co ronary artery of [place] heart without angina pectoris 07/22/2015 Overview: Single [...] rinse after steroid. Test performed by [facility] AUTOMATED WEAVER CPFT GENERAL OSTEOARTHROSIS BMI 32.0-32.9,adult Tobacco use disorder Hyperlipidemia with target LDL less than 70 Overview: ICD-10 update of inactive term RSD upper limb Overview: left arm Generalized anxiety disorder documented as of this encounter (statuses as of 06/27/2023) Resolved Problems Problem Noted Date Diagnosed Date [...] ISCHEMIC HRT DIS NOS Coronary atherosclerosis of [place] coronary artery 11/24/2016 Tobacco abuse 11/17/2017 documented as of this encounter (statuses as of 06/27/2023) Immunizations Name Administration Dates Next Due COVID-19 [...] Types Packs/Day Years Used Date Smoking Tobacco: Former Cigarettes 0.3 61.3 0 1961 - 11/04/2022 Smokeless Tobacco: Never Alcohol Use Standard Drinks/Week Comments No 0 [...] Telephone Encounter - Lianna Mack RN - 02/08/2023 10:08 AM EST Please discharge the patient from [facility] ([facility] Device(s)/IVR to be discontinued: 01/26/23 due to end of RAH period. Thank you. documented in this encounter Plan of Treatment Upcoming Encounters Date Type Department Care Team (Late st Contact Info) Description 06/29/2023 10:30 AM EDT Office Visit Vascular Surgery, [facility] 132 [facility] [place] [address] Nnamdi King MD [address] [facility] [place] [phone] 09/27/2023 9:40 AM EDT Office Visit [address] [phone] Courtney Restrepo MD [address] [place] [address] [place] [address] 10/10/2023 4:00 PM EDT Office Visit Nephrology, [address] [place] [address] Charla Potter MD [address] [place] [address] 12/07/2023 9:20 AM EDT Office Visit [address] [place] [phone] Courtney Restrepo MD [address] [place] [address] [place] [address] Scheduled Procedures Name Priority Associated Diagnoses Date/Ti [...] D LEVEL ONCE IN A LIFETIME-USE SMARTSET# [id number] Completed 10/16/2021, 12/27/2018 Alpha-1 Antitrypsin Discontinued GARDASIL-HPV [...] this encounter Medical Devices Implanted Type Area Paper Plate Machine Tender Device Identifier Shelf Expiration Date Model / Serial / Lot Stent Graft Icast [id number] - [id number] - [id number] Implanted:Qty : 1 on 04/14/2022 [place]namdi King [place] [facility] [place]: Mesenteric Artery GETINGE : VITOR [id number] 02/21/2023 [id number] / [id number] / [id number] Description:implanted in SMA Stent [place] 3.0x15 Rx - [id number] Implanted:Qty : 1 on 11/12/2022 by Patrice Jose MD [place] [facility] [place] [employer] : VASCULAR [id number] 11/28/2023 [id number] / / [id number] documented as of this encounter Advance [...] the patient have Health Care Power of Process Owner? Yes, in chart and reviewed as current [...] patient or by statute hierarchy) Care Teams Route Specialist Relationship Specialty Start Date End Date Courtney Restrepo MD [address] [place] [address] [place] [address] PCP - General Family Medicine 10/17/19 documented as of this encounter
--- OUTSIDE RECORDS SUMMARY | 2023-08-31 06:30 | External Medical Summary | Summary of Care ---
Author Name Unknown Organization [facility] Address [address] [place] [address] Phone [phone] Care Team Providers Care Program Architect Name Role Phone Courtney Restrepo MD Primary Care Prov ider Reason for Visit * Reason Onset Date Comments Other 06/24/2023 DME for Non whee ling walker Encounter Details Date Type Department Care Team (Late st Contact Info) Description 06/24/2023 Telephone Family [address] [phone] Courtney Restrepo MD [address] [place] [address] [place] [address] Other (DME for Non wheeling walker [...] edema Nitroglycerin Hypotension 12/20/2018 Penicillins Nausea/vomiting 05/17/2007 [place] Hives 10/02/2018 Propoxyphene Edema face/lips/tongue,Hiv es 06/26/2009 [...] 8.0% ([facility]) Units as per sliding scale 3 mL 3 3 Active Insulin Glargine Solostar 100 UNIT/ML Subcutaneous Solution Pen-injector (Lantus SoloStar)Indicatio ns:Type 2 diabetes mellitus with hemoglobin A1c goal of less than 8.0% ([facility]) Inject 10 Units under the skin every [...] opioid overdose. Seek medical help immediately. [email or web address] 1 mL 3 4 Active Additional Information [...] spasm. 30 Tablet 0 4 Active Gabapentin 100 MG Oral Capsule [...] rinse after steroid. Test performed by Bibiana STOCKROOM ATTENDANT CPFT [place] (myocardial infarction) 02/21/2019 Bilateral [...] rinse after steroid. Test performed by Bibiana STOCKROOM ATTENDANT CPFT GENERAL OSTEOARTHROSIS BMI 32.0-32.9,adult Tobacco use [...] Encounter - Jose Enrique Guo LPN - 06/29/2023 10:48 AM EDT To better serve your patient's needs, order [id number] for Carlotta Khan (1950) is now beingfulfilled by [facility]. * Telephone Encounter - Jose Enrique Guo LPN - 06/24/2023 12:05 PM EDT Walker: Order [id number] for Carlotta Khan (1950) is being fulfilled by [facility]. documented in this encounter Plan of Treatment Upcoming Encounters Date Type Department Care Team (Late st Contact Info) Description 06/29/2023 2:30 PM EDT Office Visit Vascular Surgery, [facility] [address] [facility] [place] [address] Nnamdi King MD [address] [facility] [address] 07/01/2023 1:00 PM EDT Home Visit Care Coordination and Integration [address] [facility] [address] Angy Ceballos, [facility] [address] [place] [phone]- 09/27/2023 9:40 AM EDT Office Visit [address] [place] [phone] Courtney Restrepo MD [address] [place] [address] [place] [address] 10/10/2023 4:00 PM EDT Office Visit Nephrology, [address] [place] [address] Charla Potter MD [address] [facility] [place] [address] 12/07/2023 9:20 AM EDT Office Visit [address] [place] [phone] Courtney Restrepo MD [address] [place] [address] [place] [address] Scheduled Procedures Name Priority Associated Diagnoses Date/Ti me ESOPHAGOGASTRODUODENOSCOPY ( EGD), FLEXIBLE, TRANSORAL, DIAGNOSTIC Recall Pendleton's esophagus Health Maintenance Due Date Last Done Comments DISCUSS TOBACCO CESSATION (REFER TO SMARTSET #4492) 1950 *ADVANCE DIRECTIVE NOT ON FILE 06/28/2020 [...] D LEVEL ONCE IN A LIFETIME-USE SMARTSET# [id number] Completed 10/16/2021, 12/27/2018 Alpha-1 Antitrypsin Discontinued GARDASIL-HPV [...] this encounter Medical Devices Implanted Type Area Business Professor Device Identifier Shelf Expiration Date Model / Serial / Lot Stent Graft Icast [id number] - [id number] - [id number] Implanted:Qty : 1 on 04/14/2022 by Nnamdi King MD at [place] [facility] N/A: Mesenteric Artery GETINGE : MAQUET [id number] 02/21/2023 [id number] / [id number] / [id number] Description:implanted in SMA Stent Howie 3.0x15 Rx - [id number] Implanted:Qty : 1 on 11/12/2022 by Patrice Jose MD at [facility]ARDIAC [facility]S [facility] [employer] : VASCULAR [id number] 11/28/2023 [id number] / / [id number] documented as of this encounter Advance [...] the patient have Health Care Power of Underwriting Sales Representative? Yes, in chart and reviewed [...] Agents on File Name Relationship Healthcare Agent [facility] p Communication Diamond Braxton Adult Child Health Care Repr esentative (appointed verbally by patient or by statute hierarchy) Care Teams Program Architect Relationship Specialty Start Date End Date Courtney Restrepo MD [address] [place] [address] [place] [address] PCP - General Family Medicine 10/17/19 documented as of this encounter
--- OUTSIDE RECORDS SUMMARY | 2023-08-31 06:30 | External Medical Summary | Summary of Care ---
Author Name Unknown Organization [facility] Address [address] [place] [address] Phone [phone] Care Team Providers Care Maid Cleaning Cooking Name Role Phone Courtney Restrepo MD Primary Care Prov ider Reason for Visit * Reason Comments eRx-Medication Refill Encounter Details Date Type Department Care Team (Late st Contact Info) Description 06/22/2023 Refill Family Medicine [address] [phone] Courtney Restrepo MD [address] [place] [address] Iron deficiency anemia due to chronic blood loss; Chronic superficial gastritis with bleeding Allergies Active Allergy Reactions Criticality Noted Date [...] edema Nitroglycerin Hypotension 12/20/2018 Penicillins Nausea/vomiting 05/17/2007 [place] Hives 10/02/2018 Propoxyphene Edema face/lips/tongue,Hiv es 06/26/2009 documented as of this encounter (statuses as of 06/22/2023) Medications Medication Sig Dispensed Refills Start Date [...] group C, by GOLD 2017 classification (FORM[facility]LY [facility]) Inhale 1 puff as directed once a day 1 inhalation daily. Rinse mouth after every use. 60 Blister Dosing Unit 5 3 Active NovoLOG FlexPen 100 UNIT/ML Subcutaneous Solution Pen-injector (insulin aspart)Indications :Type 2 diabetes mellitus with hemoglobin A1c goal of less than 8.0% ([facility]) Units as per sliding scale 3 mL 3 3 Active Insulin Glargine Solostar 100 UNIT/ML Subcutaneous Solution Pen-injector (Lantus SoloStar)Indicatio ns:Type 2 diabetes mellitus with hemoglobin A1c goal of less than 8.0% ([facility]) Inject 10 Units under the [...] A1c goal of less than 8.0% ([facility]) Test glucose once daily E11.9 [...] the morning. 30 Tablet 1 4 Active Gabapentin 100 MG Oral Capsule (Neurontin) Take 1 Capsule by mouth in the morning and 1 Capsule at noon and 1 Capsule before bedtime. 90 Capsule 1 4 Active Additional Information Patient taking differently: 200 [id number], Informant: At Discharge, Reported on 06/22/2023 Metoprolol [...] Pain, Breakthrough. 18 Tablet 0 4 Active Naloxone HCl 0.4 MG/ML Injection Solution (Narcan) Inject 1mL into a large muscle for suspected opioid overdose. Seek medical help immediately. [email or web address] 1 mL 3 4 Active Additional Information [...] Pain, Moderate. 28 Tablet 0 4 Active Pantoprazole Sodium 40 MG Oral Tablet Delayed Release (Protonix)Indicati ons:Iron deficiency anemia due to chronic blood loss,Chronic superficial gastritis with bleeding Take 1 Tablet by mouth in the morning and 1 Tablet before bedtime. 30 minutes before the first meal of the day. Do not crush, split or chew the tablet. 180 Tablet 3 2 06/22/19 24 Discontinued documented as of this encounter (statuses as of 06/22/2023) Active Problems Problem Noted Date Diagnosed Date [...] rinse after steroid. Test performed by Bibiana PC MAINTENANCE TECHNICIAN CPFT [place] (myocardial infarction) 02/21/2019 Bilateral [...] osteoporosis 07/03/2018 Reactive depression 11/17/2017 Atherosclerosis of [place] co ronary artery of [place] heart without angina pectoris 07/22/2015 Overview: Single [...] rinse after steroid. Test performed by Bibiana PC MAINTENANCE TECHNICIAN CPFT GENERAL OSTEOARTHROSIS BMI 32.0-32.9,adult Tobacco use disorder Hyperlipidemia with target LDL less than 70 Overview: ICD-10 update of inactive term RSD upper limb Overview: left arm Generalized anxiety disorder documented as of this encounter (statuses as of 06/22/2023) Resolved Problems Problem Noted Date Diagnosed Date [...] ISCHEMIC HRT DIS NOS Coronary atherosclerosis of [place] coronary artery 11/24/2016 Tobacco abuse 11/17/2017 documented as of this encounter (statuses as of 06/22/2023) Immunizations Name Administration Dates Next Due COVID-19 [...] encounter Miscellaneous Notes * Telephone Encounter - Jonathan Valenzuela [facility] - 06/22/2023 7:51 PM EDTSigned Prescriptions: Disp Refills Pantoprazole Sodium 40 MG Oral Tablet Thuy*180 Ta*3 Sig: TAKE 1 TABLET BY MOUTH 30 MINUTES BEFORE FIRST MEAL AND 1 TABLET BEFORE BEDTIME DO NOT CRUSH, SPLIT, OR CHEWAuthorizing Provider: COURTNEY RESTREPO User: JONATHAN VALENZUELA documented in this encounter Plan of Treatment Upcoming Encounters Date Type Department Care Team (Late st Contact Info) Description 06/23/2023 11:20 AM EDT Office Visit Family Medicine [address] [place] [phone] Christie Harrison PA-C [address] [place] [address] [place] [address] 06/29/2023 10:30 AM EDT Office Visit Vascular Surgery, [facility] [address] [place] [address] Jonathan King MD [address] [facility] [place] [address] 10/10/2023 4:00 PM EDT Office Visit Nephrology, [facility] [address] [facility] [place] [address] Charla Potter MD [address] [place] [id number] 12/07/2023 9:20 AM EDT Office Visit Family Medicine [address] [place] [phone] Courtney Restrepo MD [address] [place] [address] [place] [address] Scheduled Procedures Name Priority Associated Diagnoses Date/Ti me ESOPHAGOGASTRODUODENOSCOPY ( EGD), FLEXIBLE, TRANSORAL, DIAGNOSTIC Recall Pendleton's esophagus Health Maintenance Due Date Last Done Comments DISCUSS TOBACCO CESSATION (REFER TO SMARTSET #6910) 1950 *ADVANCE DIRECTIVE NOT ON FILE 06/28/2020 [...] D LEVEL ONCE IN A LIFETIME-USE SMARTSET# [id number] Completed 10/16/2021, 12/27/2018 Alpha-1 Antitrypsin Discontinued GARDASIL-HPV [...] this encounter Medical Devices Implanted Type Area Anthropological Linguist Device Identifier Shelf Expiration Date Model / Serial / Lot Stent Graft Icast [id number] - [id number] - [id number] Implanted:Qty : 1 on 04/14/2022 by Jonathan King MD at OR [facility] N/A: Mesenteric Artery GETINGE : VITOR [id number] 02/21/2023 [id number] / [id number] / [id number] Description:implanted in SMA Stent Howie 3.0x15 Rx - [id number] Implanted:Qty : 1 on 11/12/2022 by Patrice Jose MD at [facility] [employer] : VASCULAR [id number] 11/28/2023 [id number] / / [id number] documented as of this encounter Visit Diagnoses Diagnosis Iron deficiency anemia due to chronic blood loss Iron deficiency anemia secondary to blood loss (chronic) 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 Yes, in chart and reviewed as [...] patient or by statute hierarchy) Care Teams Maid Cleaning Cooking Relationship Specialty Start Date End Date Courtney Restrepo MD [address] [place] [address] [place] [address] PCP - General Family Medicine 10/17/19 documented as of this encounter
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
--- OUTSIDE RECORDS SUMMARY | 2023-08-31 06:31 | External Medical Summary | Summary of Care ---
Author Name Unknown Organization [facility] Address [address] [place] [address] Phone [phone] Care Team Providers Care Manager Cosmetics Name Role Phone Courtney Restrepo MD Primary Care Prov ider Encounter Details Date Type Department Care Team (Late st Contact Info) Description 06/15/2023 Population Health External Data Unspecified Department Allergies [...] edema Nitroglycerin Hypotension 12/20/2018 Penicillins Nausea/vomiting 05/17/2007 [place] Hives 10/02/2018 Propoxyphene Edema face/lips/tongue,Hiv es 06/26/2009 documented as of this encounter (statuses as of 06/15/2023) Medications Medication Sig Dispensed Refills Start Date End Date Status Pantoprazole Sodium 40 MG Oral Tablet Delayed Release (Protonix)Indication s:Iron deficiency anemia due to chronic blood loss,Chronic superficial gastritis with bleeding Take 1 Tablet by mouth in the morning and 1 Tablet before bedtime. 30 minutes before the first meal of the day. Do not crush, split or chew the tablet. 180 Tablet 3 02/26/2022 Active Albuterol Sulfate HFA 108 (90 Base) MCG/ACT Inhalation Aerosol SolutionIndications: Bacterial pneumonia Use two puffs four times a day as needed for shortness of breath/wheezing 18 g 3 06/04/2022 Active Loratadine 10 MG Oral Tablet (Claritin) [...] after every use. 60 Blister Dosing Unit 11/29/2022 Active NovoLOG FlexPen 100 UNIT/ML Subcutaneous [...] a day with morning and evening meals. 0 Active Lidocaine 4 % External Patch [...] before bedtime. 90 Capsule 1 06/14/2023 Active Metoprolol Succinate ER 25 MG Oral Tablet Extended Release 24 Hour (toPROL XL) Take 0.5 Tablets by mouth in the morning. 30 Tablet 0 06/15/2023 Active Acetaminophen 325 MG Oral Tablet (Tylenol) Take 3 Tablets by mouth in the morning and 3 Tablets at noon and 3 Tablets before bedtime. 270 Tablet 0 06/14/2023 4 Active Baclofen 5 MG Oral Tablet (Lioresal) Take 1 Tablet by mouth every 8 hours as needed for Muscle spasms. 90 Tablet 1 06/14/2023 Active Bisacodyl 5 MG Oral Tablet Delayed Release (Dulcolax) Take 1 Tablet by mouth in the morning. 30 Tablet 0 06/15/2023 Active HYDROmorphone HCl 2 MG Oral Tablet (Dilaudid) Take 1 Tablet by mouth every 4 hours as needed for Pain, Breakthrough. 18 Tablet 0 06/14/2023 Active Naloxone HCl 0.4 MG/ML Injection Solution (Narcan) Inject 1mL into a large muscle for suspected opioid overdose. Seek medical help immediately. [email or web address] 1 mL 3 06/14/2023 Active oxyCODONE HCl 10 MG Oral Tablet (Roxicodone) Take 1 Tablet by mouth every 4 hours as needed for Pain, Severe. 30 Tablet 0 06/14/2023 Active oxyCODONE HCl 5 MG Oral Tablet (Oxy IR) Take 1 Tablet by mouth every 6 hours as needed for Pain, Moderate. 15 Tablet 0 06/14/2023 Active Sennosides-Docusate Sodium 8.6-50 MG Oral Tablet (Senokot-S) Take 2 Tablets by mouth in the morning and 2 Tablets before bedtime. 60 Tablet 0 06/14/2023 Active documented as of this encounter (statuses as of 06/15/2023) Active Problems Problem Noted Date Diagnosed Date [...] rinse after steroid. Test performed by [facility]iana DIRECTOR OF MEDICAL REVIEW CPFT Old [place] (myocardial infarction) 02/21/2019 Bilateral [...] osteoporosis 07/03/2018 Reactive depression 11/17/2017 Atherosclerosis of [place] co ronary artery of [place] heart without angina pectoris 07/22/2015 Overview: Single [...] rinse after steroid. Test performed by Bibiana DIRECTOR OF MEDICAL REVIEW CPFT GENERAL OSTEOARTHROSIS BMI 32.0-32.9,adult Tobacco use disorder Hyperlipidemia with target LDL less than 70 Overview: ICD-10 update of inactive term RSD upper limb Overview: left arm Generalized anxiety disorder documented as of this encounter (statuses as of 06/15/2023) Resolved Problems Problem Noted Date Diagnosed Date [...] ISCHEMIC HRT DIS NOS Coronary atherosclerosis of [place] coronary artery 11/24/2016 Tobacco abuse 11/17/2017 documented as of this encounter (statuses as of 06/15/2023) Immunizations Name Administration Dates Next Due COVID-19 [...] Answer Date Recorded PHQ Adult Total Score 0 02/10/2023 Hunger Vital Sign Answer Date Recorded Within the past 12 months, y ou worried that your food would run out before you got the money to buy more. Never true 02/11/20 23 Within the past 12 months, t he food you bought just didn't last and you didn't have money to get more. Never true 02/10/2023 Sex and Gender Information Value Date Recorded [...] 10:30 AM EDT Office Visit Vascular Surgery, [facility] [address] [facility] [place] [address] Nnamdi King MD [address] [facility] [place] [address] 10/10/2023 4:00 PM EDT Office Visit Nephrology, [facility] [address] [facility] [place] [address] Charla Potter MD [address] [facility] [place] [address] 12/07/2023 9:20 AM EDT Office Visit Family Medicine [address] [phone] Courtney Restrepo MD [address] [place] [address] [place] [address] Scheduled Procedures Name Priority Associated Diagnoses Date/Ti me ESOPHAGOGASTRODUODENOSCOPY ( EGD), FLEXIBLE, TRANSORAL, DIAGNOSTIC Recall Pendleton's esophagus Health Maintenance Due Date Last Done Comments DISCUSS TOBACCO CESSATION (REFER TO SMARTSET #2335) 1950 *ADVANCE DIRECTIVE NOT ON FILE 06/28/2020 [...] 12/09/2023 06/08/2023, 11/13, 09/08/2022, Additional history exists Depression Screening 02/11/2024 02/10/2023 Albumin/Creatinine Ratio 04/13/2024 024, 04/13/2022, 06/03/2021, Additional history exists Mammogram 05/19/2024 05/20/2023, 08/2021, 05/12/2017, Additional history exists O2 ASSESSMENT COMPLETED IN PAST YEAR FOR COPD 06/06/2024 06/07/2023 GFR 06/13/2024 06/14/2023, 04/0 03/2023, 06/11/2023, Additional history exists DTaP,Tdap,and Td Vaccines (3 - Td or Tdap) 07/15/2031 07/14/2021 (Declined), 07/27/2010 Pneumococcal Vaccine: 65+ Years Completed 10/27/2015, 08/08/2014, 05/30/2008 VITAMIN D LEVEL ONCE IN A LIFETIME-USE SMARTSET# 31181 Completed 10/16/2021, 12/27/2018 Alpha-1 Antitrypsin Discontinued GARDASIL-HPV [...] this encounter Medical Devices Implanted Type Area Cafeteria Aide Device Identifier Shelf Expiration Date Model / Serial / Lot Stent Graft Icast [id number] - [id number] - [id number] Implanted:Qty : 1 on 04/14/2022 by Nnamdi King MD at OR [facility] [place] N/A: Mesenteric Artery GETINGE : MAQUET [id number] 02/21/2023 [id number] / [id number] / [id number] Description:implanted in SMA Stent [place] 3.0x15 Rx - [id number] Implanted:Qty : 1 on 11/12/2022 by Patrice Jose MD at [facility]ARDIAC [facility]S [facility] [place] MEDTRONIC : VASCULAR [id number] 11/28/2023 [id number] / / [id number] documented as of this encounter Advance [...] the patient have Health Care Power of Teacher Of The Deaf? Yes, in chart and reviewed as current [...] patient or by statute hierarchy) Care Teams Manager Cosmetics Relationship Specialty Start Date End Date Courtney Restrepo MD [address] [place] [address] [place] [id number] PCP - General Family Medicine 10/17/19 documented as of this encounter
--- OUTSIDE RECORDS SUMMARY | 2023-08-31 06:31 | External Medical Summary ---
Author Name Unknown Address Unknown Organization K[facility] [place] [address] Laboratory Report Ordering Provider Test Date Status KATHLEEN MOYER 06/16/2023 07:35:49 Final Observation Date Value Abnormality Reference (Units ) Status Color of Urine by Auto 06/16/2023 07:35:49 Yellow Light Yellow, Yellow, Dark Yellow Final Clarity, Urine 06/16/2023 07:35:49 Clear Clear Final Glucose [Mass/volume] in Urine by Automated test strip 06/16/2023 07:35:49 Negative Negative (mg/dL) Final Bilirubin.total [Presence] in Urine by Automated test strip 06/16/2023 07:35:49 Negative Negative Final Ketones [Mass/volume] in Urine by Automated test strip 06/16/2023 07:35:49 Negative Negative (mg/dL) Final Specific gravity, Urine 06/16/2023 07:35:49 1.015 1.003-1.030 Final Hemoglobin [Presence] in Urine by Automated test strip 06/16/2023 07:35:49 Negative Negative Final pH, Urine 06/16/2023 07:35:49 7.0 5.0-7.5 (Units) Final Protein [Mass/volume] in Urine by Automated test strip 06/16/2023 07:35:49 Negative Negative (mg/dL) Final Urobilinogen [Mass/volume] in Urine by Automated test strip 06/16/2023 07:35:49 1.0 0.2, 1.0 (mg/dL) Final Nitrite [Presence] in Urine by Automated test strip 06/16/2023 07:35:49 Negative Negative Final Leukocyte esterase [Presence] in Urine by Automated test strip 06/16/2023 07:35:49 Negative Negative Final RBC, Urine 06/16/2023 07:35:49 0-2 0-2 (/HPF) Final WBC, Urine 06/16/2023 07:35:49 0-2 0-2 (/HPF) Final Bacteria [#/area] in Urine sediment by Microscopy high power field 06/16/2023 07:35:49 0-25 0-25 (/HPF) Final Performing Location [facility] [place] [place] [address]
--- OUTSIDE RECORDS SUMMARY | 2023-08-31 06:31 | External Medical Summary | Summary of Care ---
Author Name Unknown Organization [facility] Address [address] [place] [address] Phone [phone] Care Team Providers Care Hvac Engineering Technician Name Role Phone Courtney Restrepo MD Primary Care Prov ider Reason for Visit * Reason Onset Date Comments Home Health 06/20/2023 Encounter Details Date Type Department Care Team (Late st Contact Info) Description 06/20/2023 Telephone Family [address] [phone] Courtney Restrepo MD [address] [place] [address] [place] [address] Home Health Allergies Active Allergy Reactions Criticality Noted Date [...] edema Nitroglycerin Hypotension 12/20/2018 Penicillins Nausea/vomiting 05/17/2007 [place] Hives 10/02/2018 Propoxyphene Edema face/lips/tongue,Hiv es 06/26/2009 documented as of this encounter (statuses as of 06/20/2023) Medications Medication Sig Dispensed Refills Start Date [...] of Breath. 100 mL 3 11/29/2022 Active LifeCareSimuch Delica Lancets 30GIndications:Type 2 diabetes mellitus with [...] group C, by GOLD 2017 classification ([facility]) Inhale 1 puff as directed once a day 1 inhalation daily. Rinse mouth after every use. 60 Blister Dosing Unit 5 11/29/2022 Active NovoLOG FlexPen 100 UNIT/ML Subcutaneous Solution Pen-injector (insulin aspart)Indications:T ype 2 diabetes mellitus with hemoglobin A1c goal of less than 8.0% ([facility]) Units as per sliding scale 3 mL 3 02/04/2023 Active Insulin Glargine Solostar 100 UNIT/ML Subcutaneous Solution Pen-injector (Lantus SoloStar)Indications :Type 2 diabetes mellitus with hemoglobin A1c goal of less than 8.0% ([facility]) Inject 10 Units under [...] A1c goal of less than 8.0% ([facility]) Test glucose once daily [...] before bedtime. 270 Tablet 0 06/14/2023 Active Baclofen 5 MG Oral Tablet (Lioresal) [...] opioid overdose. Seek medical help immediately. http://[email or web address] 1 mL 3 06/14/2023 Active oxyCODONE HCl [...] as of this encounter (statuses as of 06/20/2023) Active Problems Problem Noted Date Diagnosed Date [...] rinse after steroid. Test performed by Bibiana BEREAVEMENT PROGRAM COORDINATOR CPFT Old CT (myocardial infarction) 02/21/2019 Bilateral [...] 07/03/2018 Reactive depression 11/17/2017 Atherosclerosis of [place] co ronary artery of [place] heart without angina pectoris 07/22/2015 Overview: Single [...] rinse after steroid. Test performed by Bibiana BEREAVEMENT PROGRAM COORDINATOR CPFT GENERAL OSTEOARTHROSIS BMI 32.0-32.9,adult Tobacco use disorder Hyperlipidemia with target LDL less than 70 Overview: ICD-10 update of inactive term RSD upper limb Overview: left arm Generalized anxiety disorder documented as of this encounter (statuses as of 06/20/2023) Resolved Problems Problem Noted Date Diagnosed Date [...] HRT DIS NOS Coronary atherosclerosis of [place] coronary artery 11/24/2016 Tobacco abuse 11/17/2017 documented as of this encounter (statuses as of 06/20/2023) Immunizations Name Administration Dates Next Due COVID-19 [...] encounter Miscellaneous Notes * Telephone Encounter - Leeanne Bautista LPN - 06/20/2023 2:46 PM EDT Admission/Start of Care Admission/Start of Care: Jewell DOTY, Calling from: Vasyl Patient was Admitted to: [facility], for: S/P AKA (above knee amputation), left from 06/14/23 to 06/18/23 Referral ordered by: Case Management Referral received for: Group Home, PT, and OT Start of care completed on: 06/19/23 Report/Concerns of:Medication Related Symptoms: Pain 9/10 Vitals: T 97.1 P 85 RR 18 BP 118/64 SP O2 96% R/A Lung sounds - Clear Weight 150 lbs Blood sugar - Patient had not taken it but told Jewell that it has been running between 130-150 Narrative: Home health will be seeing patient and teaching family how to change dressing. Patient was having 9/10 pain when she was seen However she did not have her Oxycodone script to take yet Family had just arrived with it at the end of Home health visit Next PT visit(s) on 06/20/23 They will call with any updates or additional concerns from the upcoming HH visit. Last Office Visit: 05/09/2023 Has patient been scheduled or seen in the office for a follow up visit: Yes, 06/23/23 with Christie Advised that orders will be signed by Dr. Vera Morejon and to fax to the office for signature. documented in this encounter Plan of Treatment Upcoming Encounters Date Type Department Care Team (Late st Contact Info) Description 06/23/2023 11:20 AM EDT Office Visit Family Medicine [address] [phone] Christie Harrison PA-C [address] [place] [address] [place] [address] 06/29/2023 10:30 AM EDT Office Visit Vascular Surgery, [facility] [address] [facility] [place] [address] Nnamdi King MD [address] [place] [address] 10/10/2023 4:00 PM EDT Office Visit Nephrology, [facility] [address] [facility] [place] [address] Charla Potter MD [address] [facility] [place] [address] 12/07/2023 9:20 AM EDT Office Visit Family Medicine [address] [place] [phone] Courtney Restrepo MD [address] [place] [address] [place] [address] Scheduled Procedures Name Priority Associated Diagnoses Date/Ti [...] D LEVEL ONCE IN A LIFETIME-USE SMARTSET# [id number] Completed 10/16/2021, 12/27/2018 Alpha-1 Antitrypsin Discontinued GARDASIL-HPV [...] this encounter Medical Devices Implanted Type Area Fisher Diver Net Device Identifier Shelf Expiration Date Model / Serial / Lot Stent Graft Icast [id number] - [id number] - [id number] Implanted:Qty : 1 on 04/14/2022 [place] [facility] [place] Mesenteric Artery GETINGE : YOELT [id number] 02/21/2023 [id number] / [id number] / [id number] Description:implanted in SMA Stent [place] 3.0x15 Rx - [id number] Implanted:Qty : 1 on 11/12/2022 by Patrice Jose MD [place] [facility] [place] [employer] : VASCULAR [id number] 11/28/2023 [id number] / / [id number] documented as of this encounter Advance [...] patient have Health Care Power of Needle Board Repairer? Yes, in chart and reviewed as [...] patient or by statute hierarchy) Care Teams Hvac Engineering Technician Relationship Specialty Start Date End Date Courtney Restrepo MD [address] [place] [address] [place] [address] PCP - General Family Medicine 10/17/19 documented as of this encounter
--- OUTSIDE RECORDS SUMMARY | 2023-08-31 06:31 | External Medical Summary | Summary of Care ---
Author Name Unknown Organization [facility] Address [address] [place] [address] Phone [phone] Care Team Providers Care Information Technology Assistant Name Role Phone Courtney Restrepo MD Primary Care Prov ider Reason for Visit * Reason Onset Date Comments FYI 06/22/2023 case management 06/22/2023 Encounter Details Date Type Department Care Team (Late st Contact Info) Description 06/22/2023 Telephone Care Coordination and Integration [address] [place] [address] Lianna Mack RN [address] [place] [address] FYI; case management Allergies Active Allergy Reactions Criticality [...] edema Nitroglycerin Hypotension 12/20/2018 Penicillins Nausea/vomiting 05/17/2007 [place] Hives 10/02/2018 Propoxyphene Edema face/lips/tongue,Hiv es 06/26/2009 [...] chew the tablet. 180 Tablet 3 2 Active Albuterol Sulfate HFA 108 (90 Base) [...] of Breath. 100 mL 3 3 Active Wanderu Delica Lancets 30GIndications:Type 2 diabetes mellitus with hemoglobin A1c goal of less than 8.0% (HCC) Use to test glucose daily. E11.9 100 Each 5 3 Active OneTouch Verio w/Device KitIndications:Type 2 diabetes mellitus with hemoglobin A1c goal of less than 8.0% ([facility]) Use to test glucose daily. E11.9 1 Kit 0 3 Active Trelegy Ellipta 100-62.5-25 MCG/ACT Aerosol Powder Breath ActivatedIndication s:COPD, group C, by GOLD 2017 classification ([facility]) Inhale 1 puff as directed once a day 1 inhalation daily. Rinse mouth after every use. 60 Blister Dosing Unit 5 3 Active NovoLOG FlexPen 100 UNIT/ML Subcutaneous Solution Pen-injector (insulin aspart)Indications: Type 2 diabetes mellitus with hemoglobin A1c goal of less than 8.0% ([facility]) Units as per sliding scale 3 mL 3 3 Active Insulin Glargine Solostar 100 UNIT/ML Subcutaneous Solution Pen-injector (Lantus SoloStar)Indication s:Type 2 diabetes mellitus with hemoglobin A1c goal of less than 8.0% ([facility]) Inject 10 Units under the skin every [...] goal of less than 8.0% ([facility]) Test glucose once daily E11.9 100 Strip [...] Active Additional Information Patient taking differently: 200 [id number], Informant: At Discharge, Reported on 06/22/2023 Metoprolol [...] opioid overdose. Seek medical help immediately. [email or web address] 1 mL 3 4 Active Additional Information Patient not taking.Reported on 06/22/2023 Sennosides-Docusate Sodium 8.6-50 MG Oral Tablet (Senokot-S) Take 2 Tablets by mouth in the morning and 2 Tablets before bedtime. 60 Tablet 0 4 Active Furosemide 40 MG Oral Tablet (Lasix) Take 1 Tablet by mouth in the morning. Patient still taking, even though was told not to - refuses to stop it.. 0 Active oxyCODONE HCl 5 MG Oral Tablet (Oxy IR) Take 1 Tablet by mouth every 6 hours as needed for Pain, Moderate. 28 Tablet 0 4 Active oxyCODONE HCl 5 MG Oral Tablet (Oxy IR) Take 1 Tablet by mouth every 6 hours as needed for Pain, Moderate. 15 Tablet 0 4 06/22/19 24 Discontinu ed(Refill) documented as of this [...] after steroid. Test performed by Bibiana SALES COMMISSIONS ANALYST CPFT Old [place] (myocardial infarction) 02/21/2019 Bilateral [...] osteoporosis 07/03/2018 Reactive depression 11/17/2017 Atherosclerosis of [place] co ronary artery of [place] heart without angina pectoris 07/22/2015 Overview: Single [...] after steroid. Test performed by Bibiana SALES COMMISSIONS ANALYST CPFT GENERAL OSTEOARTHROSIS BMI 32.0-32.9,adult Tobacco use [...] ISCHEMIC HRT DIS NOS Coronary atherosclerosis of [place] coronary artery 11/24/2016 Tobacco abuse 11/17/2017 documented [...] Telephone Encounter - Courtney Restrepo MD - 06/22/2023 4:19 PM EDT Noted. FYI to Christie. * Telephone Encounter - Lianna Mack RN - 06/22/2023 4:14 PM EDT Patient notified. She is not happy. She was threatening not to come to her follow up appointment tomorrow. I told her she needed to come to get her other medications refilled, and for Christie to do her assessment. She will be here tomorrow. * Telephone Encounter - Carina Mcallister CRNP - 06/22/2023 3:23 PM EDT I will refill her oxycodone. S/p Left BKA amputation on 06/07/[address] King She should be taking oxycodone 5 mg every 6 hours as needed for pain. She can take tylenol in between (max 3,000 mg per 24 hours) This prescription will need to last her until she returns on 06/29/23 with vascular surgery, Dr. King appt. * Telephone Encounter - Lianna Mack RN - 06/22/2023 2:[address] King, Please see attached encounter regarding patient's request for pain medication. PCP says must come from you. Her follow up appointment with you is not until 06/29/23, she needs refills now. She is asking for dilaudid and oxycodone refills. Please advise..... * Telephone Encounter - Christie Harrison PA-C - 06/22/2023 1:46 PM EDT I will not fill the pain meds. She will need to continue to get these from the surgeon. * Telephone Encounter - Lianna Mack RN - 06/22/2023 12:42 PM EDT FYI. Patient coming in for hospital follow up tomorrow - 06/23/23. Not taking medications as on [facility] discharge summary. Patient reports she has a list that is different from mine. I asked her to bring it with her tomorrow. The med list is updated with the way patient is currently taking her medications. When she comes in tomorrow, reports she will need scripts for: -lidocaine patches 4% - one daily -metoprolol succinate 25 mg, take 0.5 tabs daily -oxycodone 5 mg, 2 tablets every 6 hours as needed for pain -hydromorphone HCL 2 mg every 4 hours as needed for pain -sennosides-docusate sodium 8.6-50 mg, 2 tablets twice a day -naloxone hcl 0.4 mg/ml injection solution (narcan) I pended the scripts that are on the discharge list. I did not pend the ones not on the list, as I don't know if you want patient to take them? The lidocaine, metoprolol, and oxycodone are on my copy of the discharge meds. The hydromorphone, senokot, and naloxone, are not on my list. Patient is also taking furosemide - that is not on either [facility] or [facility] lists. Reports they told her not to take it - but she refuses to stop it due to hx of heart failure and edema. Patient continues with Novolog sliding scale coverage - not on discharge list. Taking multivitamin daily, not on discharge list. Reports she still takes the Align, but is currently out. Daughter has to get her some more. Not on discharge list. She is taking the gabapentin every 6 hours, but it says every 8 hours on the discharge list. Patient reports her list is different. Confirmed pharmacy of choice as [facility] Did you pend patient's preferred pharmacy and medication before forwarding?yes Pharmacy: [facility] [address] Pending Prescriptions: Disp Refills Lidocaine 4 % External Patch (Aspercreme) 30 Pat*0 Sig: Place 1 Patch over 12 hours topically on the skin daily. Metoprolol Succinate ER 25 MG Oral Tablet*45 Tab*1 Sig: Take 0.5 Tablets by mouth in the morning. oxyCODONE HCl 5 MG Oral Tablet (Oxy IR) 240 Ta*0 Sig: Take 2 Tablets by mouth every 6 hours as needed for Pain, Moderate. Last Visit: Visit date not found (in office), Visit date not found (telemedicine) Next Visit: Visit date not found If no future appointments scheduled, and last appointment is greater than a year ago, please schedule patient for a follow-up appointment Last date the medication was ordered: 04/13/23, 06/15/23, and 06/14/23. (Patient states they sent her home with 15 tabs of the oxycodone, which are about gone at 2 tabs every 6 hours - and that she will need refill). Is this request for a controlled substance?Yes, What was the last refill date 06/14/23 w/ quantity 15and dosage now is 2 tabs every 6 hoursand Urine Drug Screen was completed Urine Drug Screen: Results for orders [...] 11:20 AM EDT Office Visit Family Medicine [address] [phone] Christie Harrison PA-C [address] [place] [address] [place] [address] 06/29/2023 10:30 AM EDT Office Visit Vascular Surgery, [facility] [address] [facility] [place] [address] Nnamdi King MD [address] [place] [address] 10/10/2023 4:00 PM EDT Office Visit Nephrology, [facility] [address] [facility] [address] Charla Potter MD [address] [place], [place] [id number] 12/07/2023 9:20 AM EDT Office Visit Family Medicine [address] [place] [phone] Courtney Restrepo MD [address] [place] [address] [place] [address] Scheduled Procedures Name Priority Associated Diagnoses Date/Ti [...] D LEVEL ONCE IN A LIFETIME-USE SMARTSET# 54279 Completed 10/16/2021, 12/27/2018 Alpha-1 Antitrypsin Discontinued GARDASIL-HPV [...] encounter Medical Devices Implanted Type Area Senior Product Marketing Manager Device Identifier Shelf Expiration Date Model / Serial / Lot Stent Graft Icast [id number] - [id number] - [id number] Implanted:Qty : 1 on 04/14/2022 [place] Nnamdi King [place] [facility] [place] Mesenteric Artery GETINGE : YOELT [id number] 02/21/2023 [id number] / [id number] / [id number] Description:implanted in SMA Stent Howie 3.0x15 Rx - [id number] Implanted:Qty : 1 on 11/12/2022 by Patrice Jose MD [place] [facility] [place] [employer] [place] VASCULAR [id number] 11/28/2023 [id number] / / [id number] 2 documented as of this encounter Visit [...] the patient have Health Care Power of Gluer Machine Setup Operator? Yes, in chart and reviewed as [...] patient or by statute hierarchy) Care Teams Information Technology Assistant Relationship Specialty Start Date End Date Courtney Restrepo MD [address] [place] [address] [place] [phone] PCP - General Family Medicine 10/17/19 documented as of this encounter
--- OUTSIDE RECORDS SUMMARY | 2023-08-31 06:31 | External Medical Summary ---
Author Name Unknown Address Unknown Organization K[facility] [place] [address] Laboratory Report Ordering Provider Test Date Status WESLEY CHAND 06/15/2023 07:20:04 Final Observation Date Value Abnormality Reference (Units ) Status BUN 06/15/2023 07:20:04 15 6-20 (mg/dL) Final Creatinine 06/15/2023 07:20:04 0.7 0.5-1.0 (mg/dL) Final Glomerular filtration rate/1.73 sq M.predicted [Volume Rate/Area] in Serum, Plasma or Blood by Creatinine-based formula (CKD-EPI) 06/15/2023 07:20:04 >90 >=60 (mL/min) Final eGFR is calculated based on the CKD-EPI 2020 equation Sodium 06/15/2023 07:20:04 139 135-146 (m mol/L) Final Potassium 06/15/2023 07:20:04 4.7 3.5-5.1 (m mol/L) Final Cl 06/15/2023 07:20:04 99 98-107 (mm ol/L) Final CO2 06/15/2023 07:20:04 30 22-32 (mmo l/L) Final Anion gap 06/15/2023 07:20:04 10 7-15 (mmol /L) Final Glucose 06/15/2023 07:20:04 149 Above high normal 70 -120 (mg/dL) Final Calcium 06/15/2023 07:20:04 9.6 8.4-10.2 ( mg/dL) Final Performing Location [facility] [place] [address]
--- OUTSIDE RECORDS SUMMARY | 2023-08-31 06:31 | External Medical Summary ---
Author Name Unknown Address Unknown Organization [facility] [address] Laboratory Report Ordering Provider Test Date Status WESLEY CHAND 06/15/2023 07:20:04 Final Observation Date Value Abnormality Reference (Units ) Status WBC, Total 06/15/2023 07:20:04 10.70 4.00-10.8 0 (K/uL) Final RBC 06/15/2023 07:20:04 3.87 3.85-5.15 (M/uL) Final Hemoglobin 06/15/2023 07:20:04 11.3 Below low normal 12 .0-15.3 (g/dL) Final HCT 06/15/2023 07:20:04 36.0 36.0-45.2 (%) Final MCV 06/15/2023 07:20:04 93.0 81.5-97.5 (fL) Final MCH 06/15/2023 07:20:04 29.2 27.0-34.0 (pg) Final MCHC 06/15/2023 07:20:04 31.4 32.0-36.0 (g/dL) Final RDW 06/15/2023 07:20:04 14.3 11.5-15.5 (%) Final Platelets 06/15/2023 07:20:04 364 140-400 (K /uL) Final MPV 06/15/2023 07:20:04 10.7 6.6-11.1 ( fL) Final Performing Location [facility] [place] [address]
--- OUTSIDE RECORDS SUMMARY | 2023-08-31 06:31 | External Medical Summary | Summary of Care ---
Author Name Unknown Organization [facility] Address [address] [place] [address] Phone [phone] Care Team Providers Care Business Transformation Manager Name Role Phone Courtney Restrepo MD Primary Care Prov ider Reason for Visit * Reason Onset Date Comments FYI 06/22/2023 case management 06/22/2023 Encounter Details Date Type Department Care Team (Late st Contact Info) Description 06/22/2023 Telephone Care Coordination and Integration [address] [place] [address] Lianna Mack RN [address] [place] [address] FYI; case management Allergies Active [...] edema Nitroglycerin Hypotension 12/20/2018 Penicillins Nausea/vomiting 05/17/2007 [place] Hives 10/02/2018 Propoxyphene Edema face/lips/tongue,Hiv es 06/26/2009 [...] of Breath. 100 mL 3 3 Active Ar[employer] Delica Lancets 30GIndications:Type 2 diabetes mellitus with hemoglobin A1c goal of less than 8.0% (HCC) Use to test glucose daily. E11.9 100 Each 5 3 Active OneTouch Verio w/Device KitIndications:Type 2 diabetes mellitus with hemoglobin A1c goal of less than 8.0% ([facility]) Use to test glucose daily. E11.9 1 Kit 0 3 Active Trelegy Ellipta 100-62.5-25 MCG/ACT Aerosol Powder Breath ActivatedIndication s:COPD, group C, by GOLD 2017 classification ([facility]) Inhale 1 puff as directed once a day 1 inhalation daily. Rinse mouth after every use. 60 Blister Dosing Unit 5 3 Active NovoLOG FlexPen 100 UNIT/ML Subcutaneous Solution Pen-injector (insulin aspart)Indications: Type 2 diabetes mellitus with hemoglobin A1c goal of less than 8.0% ([facility]) Units as per sliding scale 3 mL 3 3 Active Insulin Glargine Solostar 100 UNIT/ML Subcutaneous Solution Pen-injector (Lantus SoloStar)Indication s:Type 2 diabetes mellitus with hemoglobin A1c goal of less than 8.0% ([facility]) Inject 10 Units under the [...] goal of less than 8.0% ([facility]) Test glucose once daily E11.9 [...] Active Additional Information Patient taking differently: 200 brHmbnM3N, Informant: At Discharge, Reported on 06/22/2023 Metoprolol [...] opioid overdose. Seek medical help immediately. [email or web address] 1 mL 3 4 Active Additional Information [...] rinse after steroid. Test performed by Bibiana ECMO SPECIALIST CPFT Old [place] (myocardial infarction) 02/21/2019 Bilateral [...] osteoporosis 07/03/2018 Reactive depression 11/17/2017 Atherosclerosis of [place] co ronary artery of [place] heart without angina pectoris 07/22/2015 Overview: Single [...] rinse after steroid. Test performed by Bibiana ECMO SPECIALIST CPFT GENERAL OSTEOARTHROSIS BMI 32.0-32.9,adult Tobacco use [...] ISCHEMIC HRT DIS NOS Coronary atherosclerosis of [place] coronary artery 11/24/2016 Tobacco abuse 11/17/2017 documented [...] is different. Confirmed pharmacy of choice as [facility] Did you pend patient's preferred pharmacy and medication before forwarding?yes Pharmacy: [facility] [address] Pending Prescriptions: Disp Refills Lidocaine 4 [...] 11:20 AM EDT Office Visit Family Medicine [address] [phone] Christie Harrison PA-C [address] [place] [address] [place] [address] 06/29/2023 10:30 AM EDT Office Visit Vascular Surgery, [facility] [address] [place] [address] Nnamdi King MD [address] [place] [address] 10/10/2023 4:00 PM EDT Office Visit Nephrology, [facility] [address] [facility] [place] [address] Charla Potter MD [address] [place], [place] [phone] 12/07/2023 9:20 AM EDT Office Visit Family Medicine [address] [place] [phone] Courtney Restrepo MD [address] [place] [address] [place] [address] Scheduled Procedures Name Priority Associated Diagnoses Date/Ti [...] D LEVEL ONCE IN A LIFETIME-USE SMARTSET# 51848 Completed 10/16/2021, 12/27/2018 Alpha-1 Antitrypsin Discontinued GARDASIL-HPV [...] this encounter Medical Devices Implanted Type Area Income Tax Adjuster Device Identifier Shelf Expiration Date Model / Serial / Lot Stent Graft Icast [id number] - [id number] - [id number] Implanted:Qty : 1 on 04/14/2022 by Nnamdi King [place] [facility] [place] Mesenteric Artery GETINGE : YOELT [id number] 02/21/2023 [id number] / [id number] / [id number] Description:implanted in SMA Stent Howie 3.0x15 Rx - [id number] Implanted:Qty : 1 on 11/12/2022 by Patrice Jose MD [place] [facility] [place] [employer] [place] VASCULAR [id number] 11/28/2023 [id number] / / [id number] documented as of this encounter Visit [...] the patient have Health Care Power of Permastone Mechanic? Yes, in chart and reviewed as current [...] patient or by statute hierarchy) Care Teams Business Transformation Manager Relationship Specialty Start Date End Date Courtney Restrepo MD [address] [place] [address] [place] [phone] PCP - General Family Medicine 10/17/19 documented as of this encounter
--- OUTSIDE RECORDS SUMMARY | 2023-08-31 06:32 | External Medical Summary ---
Author Name Unknown Address Unknown Organization [id number]:[facility] [place] [facility] [address] [facility] [address] Laboratory Report Ordering Provider Test Date Status JUANITO SWEET 06/14/2023 06:01:00 Final Observation Date Value Abnormality Reference (Units ) Status BUN 06/14/2023 06:01:00 17 6-20 (mg/dL) Final Creatinine 06/14/2023 06:01:00 0.6 0.5-1.0 (mg/dL) Final Glomerular filtration rate/1.73 sq M.predicted [Volume Rate/Area] in Serum, Plasma or Blood by Creatinine-based formula (CKD-EPI) 06/14/2023 06:01:00 >90 >=60 (mL/min) Final eGFR is calculated based on the CKD-EPI 2020 equation Sodium 06/14/2023 06:01:00 132 Below low normal 135 -146 (mmol/L) Final Potassium 06/14/2023 06:01:00 4.4 3.5-5.1 (m mol/L) Final Result may be falsely elevat ed due to hemolysis. Cl 06/14/2023 06:01:00 96 Below low normal 98- 107 (mmol/L) Final CO2 06/14/2023 06:01:00 27 22-32 (mmo l/L) Final Anion gap 06/14/2023 06:01:00 9 7-15 (mmol /L) Final Glucose 06/14/2023 06:01:00 174 Above high normal 70 -120 (mg/dL) Final Calcium 06/14/2023 06:01:00 9.4 8.4-10.2 ( mg/dL) Final Performing Location [facility] [place] [address] [facility] [address]
--- OUTSIDE RECORDS SUMMARY | 2023-08-31 06:32 | External Medical Summary ---
Author Name Unknown Address Unknown Organization : Laboratory Report Ordering Provider Test Date Status EDUARDO STEEN 06/13/2023 08:03:16 Final Observation Date Value Abnormality Reference (Units ) Status Glucose Point of Care 06/13/2023 08:03:16 133 Above high normal 70-120 (mg/dL) Final Performing Location
--- OUTSIDE RECORDS SUMMARY | 2023-08-31 06:32 | External Medical Summary ---
Author Name Unknown Address Unknown Organization [id number][place] [place] [facility] [address] [facility] [address] Laboratory Report Ordering Provider Test Date Status JUANITO SWEET 06/13/2023 07:23:00 Final Observation Date Value Abnormality Reference (Units ) Status WBC, Total 06/13/2023 07:23:00 15.82 Above high normal 4.00-10.80 (K/uL) Final RBC 06/13/2023 07:23:00 3.75 3.85-5.15 (M/uL) Final Hemoglobin 06/13/2023 07:23:00 11.6 Below low normal 12.0-15.3 (g/dL) Final HCT 06/13/2023 07:23:00 34.6 Below low normal 36.0-45.2 (%) Final MCV 06/13/2023 07:23:00 92.3 81.5-97.5 (fL) Final MCH 06/13/2023 07:23:00 30.9 27.0-34.0 (pg) Final MCHC 06/13/2023 07:23:00 33.5 32.0-36.0 (g/dL) Final RDW 06/13/2023 07:23:00 14.2 11.5-15.5 (%) Final Platelets 06/13/2023 07:23:00 286 140-400 (K/uL) Final MPV 06/13/2023 07:23:00 10.4 6.6-11.1 (fL) Final Nucleated erythrocytes/100 leukocytes [Ratio] in Blood by Automated count 06/13/2023 07:23:00 0 <=0 (/100 WBCs) Final Performing Location [facility] [place] [address] [place] [address]
--- OUTSIDE RECORDS SUMMARY | 2023-08-31 06:32 | External Medical Summary ---
Author Name Unknown Address Unknown Organization : Laboratory Report Ordering Provider Test Date Status EDUARDO STEEN 06/14/2023 07:41:25 Final Observation Date Value Abnormality Reference (Units ) Status Glucose Point of Care 06/14/2023 07:41:25 152 Above high normal 70-120 (mg/dL) Final Performing Location
--- OUTSIDE RECORDS SUMMARY | 2023-08-31 06:32 | External Medical Summary ---
Author Name Unknown Address Unknown Organization : Laboratory Report Ordering Provider Test Date Status EDUARDO STEEN 06/12/2023 20:52:26 Final Observation Date Value Abnormality Reference (Units ) Status Glucose Point of Care 06/12/2023 20:52:26 144 Above high normal 70-120 (mg/dL) Final Performing Location
--- OUTSIDE RECORDS SUMMARY | 2023-08-31 06:32 | External Medical Summary ---
Author Name Unknown Address Unknown Organization : Laboratory Report Ordering Provider Test Date Status EDUARDO STEEN 06/13/2023 15:57:11 Final Observation Date Value Abnormality Reference (Units ) Status Glucose Point of Care 06/13/2023 15:57:11 128 Above high normal 70-120 (mg/dL) Final Performing Location
--- OUTSIDE RECORDS SUMMARY | 2023-08-31 06:32 | External Medical Summary | Summary of Care ---
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 [address] [place] [address] Referral ID Status Reason Start Date Expiration Date Visits Re quested Visits Authorized [id number] Encounter Details Date Type Department Care Team (Latest Contact Info) Description 06/07/2023 7:15 AM EDT - 06/14/2023 12:31 PM EDT Hospital Encounter [facility], [facility] Advanced Medicine 8th Floor [address] [place] [address] Nnamdi King MD [address] [place] [address] Raleigh Preciado MD [address] [place] [address] Marino Trotter MD [address] [facility] [place] [address] Ivelisse Zuluaga MD [address] [facility] [place] [address] Gely Molina MD [address] [facility] [place] [address] Diagnostic Clarification Discharge Disposition: IP Rehab Allergies Active Allergy Reactions Criticality Noted Date [...] edema Nitroglycerin Hypotension 12/20/2018 Penicillins Nausea/vomiting 05/17/2007 [place] Hives 10/02/2018 Propoxyphene Edema face/lips/tongue,Hiv es 06/26/2009 [...] of breath/wheezing 18 g 3 3 Active Loratadine 10 MG Oral Tablet (Claritin) [...] before bedtime. 90 Capsule 1 4 Active Metoprolol Succinate ER 25 MG Oral Tablet Extended Release 24 Hour (toPROL XL) Take 0.5 Tablets by mouth in the morning. 30 Tablet 0 4 Active Acetaminophen 325 MG Oral Tablet (Tylenol) Take 3 Tablets by mouth in the morning and 3 Tablets at noon and 3 Tablets before bedtime. 270 Tablet 0 4 07/14/19 24 Active Baclofen 5 MG Oral Tablet (Lioresal) Take 1 Tablet by mouth every 8 hours as needed for Muscle spasms. 90 Tablet 1 4 Active Bisacodyl 5 MG Oral Tablet Delayed Release (Dulcolax) Take 1 Tablet by mouth in the morning. 30 Tablet 0 4 Active HYDROmorphone HCl 2 MG Oral Tablet (Dilaudid) Take 1 Tablet by mouth every 4 hours as needed for Pain, Breakthrough. 18 Tablet 0 4 Active Naloxone HCl 0.4 MG/ML Injection Solution (Narcan) Inject 1mL into a large muscle for suspected opioid overdose. Seek medical help immediately. http://youtu.be/ -[email or web address] 1 mL 3 4 Active oxyCODONE HCl 10 MG Oral Tablet (Roxicodone) Take 1 Tablet by mouth every 4 hours as needed for Pain, Severe. 30 Tablet 0 4 Active oxyCODONE HCl 5 MG Oral Tablet (Oxy IR) Take 1 Tablet by mouth every 6 hours as needed for Pain, Moderate. 15 Tablet 0 4 Active Sennosides-Docusat e Sodium 8.6-50 MG Oral Tablet (Senokot-S) Take 2 Tablets by mouth in the morning and 2 Tablets before bedtime. 60 Tablet 0 4 Active Aspirin 81 MG Oral Tablet Chewable Chew and swallow 1 tablet by mouth in the morning. 29 Tablet 0 3 06/14/19 24 Discontinued Metoprolol Succinate ER 25 MG Oral Tablet Extended Release 24 Hour (toPROL XL) Take one-half Tablets by mouth in the morning. 15 Tablet 0 3 06/14/19 24 Discontinued Sodium Chloride 4 MEQ/ML Oral Solution Take by mouth. 0 06/14/19 24 Discontinued Spironolactone 25 MG Oral Tablet (Aldactone)Indicat ions:Hypertensive heart disease with acute on chronic diastolic congestive heart failure (HCC) Take 2 Tablets by mouth in the morning. 180 Tablet 3 3 06/14/19 24 Discontinued Doxycycline Hyclate 100 MG Oral CapsuleIndications :Pain of toe of left foot,Cellulitis of toe of left foot Take 1 Capsule by mouth in the morning and 1 Capsule before bedtime. Do all this for 7 days. Take for 7 days. 14 Capsule 0 4 06/14/19 24 Discontinued HYDROcodone-Acetam inophen 5-325 MG Oral TabletIndications: Chronic midline thoracic back pain Take 1 Tablet by mouth 2 times a day as needed for Pain, Severe. 60 Tablet 0 4 06/14/19 24 Discontinued Gabapentin 100 MG Oral Capsule (Neurontin) Take 1 Capsule by mouth at bedtime. 30 Capsule 3 4 06/14/19 24 Discontinued documented as of this encounter [...] rinse after steroid. Test performed by [facility] [employer] [place] (myocardial infarction) 02/21/2019 Bilateral [...] osteoporosis 07/03/2018 Reactive depression 11/17/2017 Atherosclerosis of [place] co ronary artery of [place] heart without angina pectoris 07/22/2015 Overview: [...] rinse after steroid. Test performed by [facility] [employer] GENERAL OSTEOARTHROSIS BMI 32.0-32.9,adult Tobacco use [...] ISCHEMIC HRT DIS NOS Coronary atherosclerosis of [place] coronary artery 11/24/2016 Tobacco abuse 11/17/2017 [...] Sign Reading Time Taken Comments Blood Pressure 118/51 06/14/2023 11:31 AM EDT Pulse 78 06/14/2023 11:31 AM EDT Temperature 36.4 C (97.6 F) 06/14/2023 11:31 AM E DT Respiratory Rate 18 06/14/2023 11:31 AM EDT Oxygen Saturation 94% 06/14/2023 11:31 AM EDT Inhaled Oxygen Concentration - - Weight 74 kg (163 lb 3.2 oz) 06/14/2023 6:29 AM EDT Height 158.8 cm (5' 2.5") 06/07/2023 7:22 AM EDT Body Mass Index 29.37 06/07/2023 7:22 AM EDT documented in this [...] 06/07/2023 documented as of this encounter Discharge Instructions * Discharge Instr - AVS* Renetta Partida PA-C - 06/14/2023 10:54 AM EDT Discharge Date: 06/14/23 Brief summary of inpatient care: Carlotta Khan was admitted to [facility] on 06/07/2023 for left below knee amputation The primary diagnosis at discharge was status post L BKA. Carlotta Khan is being discharged to [facility] physician(s) at the time of discharge included: Ivelisse Zuluaga MD To reach this Provider Tuesday through Tuesday (8:00 AM to 4:30 PM) for any questions or test results: Call [phone] For after-hours concerns: Call [phone] and have your provider paged, or the provider air conditioning installer supervisor for the [facility] of [facility] paged. Inpatient test results pending: none Operations & Procedures: left below-knee amputation. Code Status: Full Code Advance Directive Documentation: Advance Directive Does the Patient have an Advance Directive? No Diet: Carbohydrate-controlled diet, Heart healthy diet Activity: As tolerated Carlotta should continue the following therapies: Physical Therapy and Occupational Therapy Isolation Status: None Mentation at Discharge: Baseline Future Studies Required: routine labs Respiratory Support at Discharge: room air PRIMARY CARE PROVIDER: PCP: Courtney Jay MD [address] [place] [address] / Konstantin TUCKER [phone] (office) [phone] (fax) Special Instructions: An appointment has been made with Vascular Surgery on 06/29/2023. Medications Stop aldactone as blood pressure soft throughout admission Tylenol 975mg every 8 hours. As pain improves transition to every 8 hours as needed Baclofen 5mg every 8 hours as needed for muscle spasms Oral Dilaudid 2mg every 4 hours as needed for breakthrough pain Oxy every 6 hours as needed. 5mg for moderate pain, 10mg for severe pain Senokot-s 2 tabs by mouth twice daily Dulcolax 5mg daily Miralax daily as needed if no BM in 2 or more days - Call your primary care physician or seek medical attention if condition worsens. Please have the patient return to the Emergency Department for any of the following: chest pain, chest pressure, chest tightness, difficulty breathing, or if condition worsens. The patient should not smoke or use tobacco products in any way! documented in this encounter Progress Notes * Renetta Partida PA-C - 06/13/2023 10:49 AM EDT Images from the original note were not included. [facility] H871/A INTERVAL HISTORY: Patient seen examined in bed this morning. She is doing okay but still with significant pain, mainly in stump but also some in the hip. Today she also mentioned phantom pain however denies any in the RLE. She denies CHRISTENSEN, dizziness, visual changes. She denies chest pain, shortness of breath. She does not have any abnormal abdominal pain. She does have some nausea however it continues to be her usual. She denies urinary complaints including dysuria and hematuria. She has not had any additional BMs since the melenic one around 3am on 06/11. Hgb stable. No other signs of bleeding. Objective Physical Exam Most Recent Vital Signs: BP: 123 mmHg/59 mmHg (06/13/23599) Pulse: 87 (06/13/23599) Temp: 36.5 C (06/13/23599) Temp Summary: Temp Min: 36 C (96.8 F) Max: 36.5 C (97.7 F) SpO2: 94 % (06/13/23599) O2 flow rate: 0 L/MIN (06/13/23 0327) Supplemental O2 Delivery: Room Air, None (06/13/23799) General: Well-appearing. In no acute distress. HEENT: Normocephalic and atraumatic. Conjunctiva non-icteric, noninjected. PERRL. Oral mucosa pink and moist. No erythema or exudate. Neck: Supple. CV: Regular rate and rhythm. No murmurs. Chest: No accessory muscle use. Lungs clear to auscultation b/l. Abd: Non-distended. Normoactive bs. Soft, non-tender w/o masses. Extremities: Left stump wrapped. No edema in right leg. Neuro: Alert and oriented. Grossly intact. Derm: No rashes or lesions appreciated. Peripheral Line Right;Lower;Posterior Arm 22 Gauge (Active) Number of days: 2 STUDIES: Encounter Orders Labs and other studies reviewed with pertinent findings noted below: Lab results within last 7 days (see chart for full results) Units 06/13/23 0723 06/11/23 0631 06/09/23 0758 Sodium mmol/L 135 135 132* Potassium mmol/L 5.2* 4.5 4.9 Chloride mmol/L 97* 98 95* CO2 mmol/L 32 30 29 BUN mg/dL 17 16 13 Creatinine mg/dL 0.8 0.7 0.7 Anion Gap mmol/L 6* 7 8 Glucose mg/dL 149* 181* 184* Calcium mg/dL 9.5 9.4 10.0 Lab results within last 7 days (see chart for full results) Units 06/13/23 0723 06/11/23 0631 06/10/23 0547 HGB g/dL 11.6* 12.1 11.3* Assessment and Plan IMPRESSION : Principal Problem: S/P AKA (above knee amputation), left ([facility]) Active Problems: Moderate mitral regurgitation Bilateral carotid artery stenosis DM type 2 with diabetic peripheral neuropathy ([facility]) Centrilobular emphysema ([facility]) COPD, group D, by GOLD 2017 classification ([facility]) Chronic ischemic heart disease S/P femoral-femoral bypass surgery Hypertensive heart disease with acute on chronic diastolic congestive heart failure ([facility]) History of cardiac arrest Resolved Problems: * No resolved hospital problems. 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 Patient underwent proce dure on 06/06 involving placement of a Marco-Hobbs drain, which has since been removed. Postoperative. Continues to be complicated by severe pain. Pain is in stump rather than phantom limb so we will continue with generous allotment of opioids. Left lower extremity gangrene s/p above knee amputation S/p right sciatic nerve block (removed) Analgesia: Acetaminophen 975 mg q.8 H Duloxetine 30 mg twice daily Gabapentin changed to 100mg BID Moderate pain: Oxycodone 5 mg Severe Pain: Oxycodone 10 mg Breakthrough: IV Hydromorphone 1 mg Change dressing daily Ambulation as tolerated Follow up with Vascular Surgery in 1 month for suture removal Peripheral vascular disease s/p femoro-femoral bypass Carotid atherosclerosis s/p right CEA CVA with left-sided residual weakness SMA stenosis CAD s/p LM-LAD ostium CONCEPCION Continue dual antiplatelet therapy with aspirin/clopidogrel Continue [facility] metoprolol succinate 12.5 mg daily Constipation - now moving bowels with multiple BMs overnight Miralax 1 packet daily Senokot-S 2 tablets BID Dulcolax 5 mg daily Will continue to adjust daily based on needs Postoperative hypoxemia presumed 2/2 atelectasis - resolved IS, flutter Insulin-dependent type 2 diabetes mellitus Consistent carb diet Medium dose sliding scale, 2:50>150 Lantus 7U @ HS Pendleton esophagus Concern for melena/hematochezia overnight continue [facility] Protonix 40mg BID Monitor for any additional bloody BMs. Will consult GI if present Hyperkalemia - 15g lokelma - BMP in am Chronic Medical Conditions: COPD: continue [facility] telegy Gastritis: continue [facility] sucralfate NIRU: continue [facility] buspirone 15 mg twice daily Vitamin-D deficiency: continue [facility] vitamin D3 1000 units daily Peripheral neuropathy: continue [facility] duloxetine 30 mg twice daily, gabapentin 100 mg HS HTN: hold [facility] spironolactone 50 mg daily Disposition - [facility]F PHARMACOLOGIC VTE PROPHYLAXIS: Enoxaparin CODE STATUS: Full Code EXPECTED DISCHARGE DATE: 06/14/2023 Patient was discussed with Ivelisse Zuluaga MD Associated attestation - Ivelisse Zuluaga MD - 06/14/2023 7:48 AM EDT I have reviewed the advanced practitioner's documentation on the date of service referenced in note, and I agree with, and take responsibility for the plan of care. On 06/13/2023 I spent a total of 45 minutes coordinating, documenting, and providing care for this patient excluding time spent in the performance of separately billed services or time spent by another provider/QHP. * Renetta Partida PA-C - 06/12/2023 10:29 AM EDT Images from the original note were not included. [facility] H871/A INTERVAL HISTORY: Patient seen examined in bed this morning. She is doing okay but still with significant pain, mainly in stump but also some in the hip. She also still has a headache but denies visual changes along with dizziness. She denies chest pain, shortness of breath. She does not have any abdominal pain. Shedoes have some nausea however it is her usual. She denies urinary complaints including dysuria and hematuria. Patient states that bowel movements overnight were significantly more bloody than she has seen in the past. Patient states that her last colonoscopy was awhile ago. Objective Physical Exam Most Recent Vital Signs: BP: 112 mmHg/59 mmHg (06/12/23 075) Pulse: 83 (06/12/23 075) Temp: 36.28 C (06/12/23 075) Temp Summary: Temp Min: 36.3 C (97.3 F) Max: 36.9 C (98.4 F) SpO2: 96 % (06/12/23 075) O2 flow rate: 2 L/MIN (06/12/23 0346) Supplemental O2 Delivery: Room Air, None (06/12/23 0800) General: Well-appearing. In no acute distress. HEENT: Normocephalic and atraumatic. Conjunctiva non-icteric, noninjected. PERRL. Oral mucosa pink and moist. No erythema or exudate. Neck: Supple. CV: Regular rate and rhythm. No murmurs. Chest: No accessory muscle use. Lungs clear to auscultation b/l. Abd: Non-distended. Normoactive bs. Soft, non-tender w/o masses. Extremities: Left stump wrapped. No edema in right leg. Neuro: Alert and oriented. Grossly intact. Derm: No rashes or lesions appreciated. Peripheral Line Right;Lower;Posterior Arm 22 Gauge (Active) Number of days: 1 STUDIES: Encounter Orders Labs and other studies reviewed with pertinent findings noted below: Lab results within last 7 days (see chart for full results) Units 06/11/23 0631 06/09/23 0758 06/08/23 0536 Sodium mmol/L 135 132* 139 Potassium mmol/L 4.5 4.9 4.6 Chloride mmol/L 98 95* 102 CO2 mmol/L 30 29 28 BUN mg/dL 16 13 14 Creatinine mg/dL 0.7 0.7 0.8 Anion Gap mmol/L 7 8 9 Glucose mg/dL 181* 184* 100 Calcium mg/dL 9.4 10.0 9.6 Lab results within last 7 days (see chart for full results) Units 06/11/23 0631 06/10/23 0547 06/09/23 0758 HGB g/dL 12.1 11.3* 12.0 Assessment and Plan IMPRESSION : Principal Problem: S/P AKA (above knee amputation), left ([facility]) Active Problems: Moderate mitral regurgitation Bilateral carotid artery stenosis DM type 2 with diabetic peripheral neuropathy ([facility]) Centrilobular emphysema ([facility]) COPD, group D, by GOLD 2017 classification ([facility]) Chronic ischemic heart disease S/P femoral-femoral bypass surgery Hypertensive heart disease with acute on chronic diastolic congestive heart failure ([facility]) History of cardiac arrest Resolved Problems: * No resolved hospital problems. 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 Patient underwent proce dure on 06/06 involving placement of a Marco-Hobbs drain, which has since been removed. Postoperative. Continues to be complicated by severe pain. Pain is in stump rather than phantom limb so we will continue with generous allotment of opioids. Of note, she has not opioid-naive. She also has constipation as indicated by not having a bowel movement for the last 4 days. Suspect there angela strong component of opioid-induced constipation. Low threshold for mu-antagonists if not responding to bowel regimen increased. No signs specific for ileus or obstruction. Left lower extremity gangrene s/p above knee amputation S/p right sciatic nerve block (removed) Analgesia: Acetaminophen 975 mg q.8 H Duloxetine 30 mg twice daily Gabapentin 100 mg HS Moderate pain: Oxycodone 5 mg Severe Pain: Oxycodone 10 mg Breakthrough: IV Hydromorphone 1 mg Change dressing daily Ambulation as tolerated Follow up with Vascular Surgery in 1 month for suture removal Peripheral vascular disease s/p femoro-femoral bypass Carotid atherosclerosis s/p right CEA CVA with left-sided residual weakness SMA stenosis CAD s/p LM-LAD ostium CONCEPCION Continue dual antiplatelet therapy with aspirin/clopidogrel Continue [employer] metoprolol succinate 12.5 mg daily Constipation - now moving bowels with multiple BMs overnight Decrease miralax back to to 1 packet daily Decrease Senokot-S to 2 tablets BID Decrease dulcolax back to 5 mg daily Will continue to adjust daily based on needs Postoperative hypoxemia presumed 2/2 atelectasis - resolved IS, flutter Insulin-dependent type 2 diabetes mellitus Consistent carb diet Medium dose sliding scale, 2:50>150 Lantus 7U @ HS Pendleton esophagus Concern for melena/hematochezia overnight continue [facility] Protonix 40mg BID Monitor for any additional bloody BMs. Will consult GI if present Chronic Medical Conditions: COPD: continue [facility] telegy Gastritis: continue [facility] sucralfate NIRU: continue [facility] buspirone 15 mg twice daily Vitamin-D deficiency: continue [facility] vitamin D3 1000 units daily Peripheral neuropathy: continue [facility] duloxetine 30 mg twice daily, gabapentin 100 mg HS HTN: hold [facility] spironolactone 50 mg daily Disposition - SNF PHARMACOLOGIC VTE PROPHYLAXIS: Enoxaparin CODE STATUS: Full Code EXPECTED DISCHARGE DATE: 06/13/2023 Patient was discussed with Ivelisse Zuluaga MD Associated attestation - Ivelisse Zuluaga MD - 06/12/2023 1:49 PM EDT I have reviewed the advanced practitioner's documentation on the date of service referenced in note, and I agree with, and take responsibility for the plan of care. I spent a total of 35 minutes coordinating, documenting, and providing care for this patient excluding time spent in the performance of separately billed services or time spent by another provider/QHP. * Sean Sheridan MD - 06/11/2023 7:28 AM EDT Images from the original note were not included. [facility] H871/A INTERVAL HISTORY: Patient has significant pain. Pain is in left stump, not in phantom limb. Patient had hydromorphone0.5 mg x 4 over last 24 hours and oxycodone 10 mg x 2. Her last bowel movement was 06/06. She is passing flatus. Objective Physical Exam Most Recent Vital Signs: BP: 128 mmHg/58 mmHg (06/11/23256) Pulse: 112 (06/11/23256) Temp: 36.72 C (06/11/23256) Temp Summary: Temp Min: 36.1 C (97 F) Max: 36.7 C (98.1 F) SpO2: 92 % (06/11/23256) O2 flow rate: 0 L/MIN (06/10/23 1449) Supplemental O2 Delivery: Room Air, None (06/11/23256) General: Well-appearing. In no acute distress. HEENT: Normocephalic and atraumatic. Conjunctiva non-icteric, noninjected. PERRL. Oral mucosa pink and moist. No erythema or exudate. Neck: Supple. CV: Regular rate and rhythm. No murmurs. Chest: No accessory muscle use. Lungs clear to auscultation b/l. Abd: Non-distended. Normoactive bs. Soft, non-tender w/o masses. Extremities: Left stump wrapped. No edema in right leg. Neuro: Alert and oriented. Grossly intact. Derm: No rashes or lesions appreciated. Peripheral Line Lower;Posterior;Right Arm (Active) Number of days: STUDIES: Encounter Orders Labs and other studies reviewed with pertinent findings noted below: Lab results within last 7 days (see chart for full results) Units 06/11/23 0631 06/09/23 0758 06/08/23 0536 Sodium mmol/L 135 132* 139 Potassium mmol/L 4.5 4.9 4.6 Chloride mmol/L 98 95* 102 CO2 mmol/L 30 29 28 BUN mg/dL 16 13 14 Creatinine mg/dL 0.7 0.7 0.8 Anion Gap mmol/L 7 8 9 Glucose mg/dL 181* 184* 100 Calcium mg/dL 9.4 10.0 9.6 Lab results within last 7 days (see chart for full results) Units 06/11/23 0631 06/10/23 0547 06/09/23 0758 HGB g/dL 12.1 11.3* 12.0 Assessment and Plan IMPRESSION : Principal Problem: S/P AKA (above knee amputation), left (HCC) Active Problems: Bilateral carotid artery stenosis DM type 2 with diabetic peripheral neuropathy (HCC) Centrilobular emphysema (HCC) COPD, group D, by GOLD 2017 classification ([facility]) Chronic ischemic heart disease S/P femoral-femoral bypass surgery Hypertensive heart disease with acute on chronic diastolic congestive heart failure (HCC) History of cardiac arrest Resolved Problems: * No resolved hospital problems. 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 Patient underwent proce dure on 06/06 involving placement of a Marco-Hobbs drain, which has since been removed. Postoperative. Continues to be complicated by severe pain. Pain is in stump rather than phantom limb so we will continue with generous allotment of opioids. Of note, she has not opioid-naive. She also has constipation as indicated by not having a bowel movement for the last 4 days. Suspect there angela strong component of opioid-induced constipation. Low threshold for mu-antagonists if not responding to bowel regimen increased. No signs specific for ileus or obstruction. Left lower extremity gangrene s/p above knee amputation S/p right sciatic nerve block (removed) Analgesia: Acetaminophen 975 mg q.8 H Duloxetine 30 mg twice daily Gabapentin 100 mg HS Moderate pain: Oxycodone 5 mg Severe Pain: Oxycodone 10 mg Breakthrough: IV Hydromorphone 1 mg Change dressing daily Ambulation as tolerated Follow up with Vascular Surgery in 1 month for suture removal No additional hemoglobin monitoring needed Discharge to [facility] Peripheral vascular disease s/p femoro-femoral bypass Carotid atherosclerosis s/p right CEA CVA with left-sided residual weakness SMA stenosis CAD s/p LM-LAD ostium CONCEPCION Continue dual antiplatelet therapy with aspirin/clopidogrel Continue [facility] metoprolol succinate 12.5 mg daily Constipation Increase polyethylene glycol to 1 packet twice daily Increase senna-docusate to 2 tablets three times daily Continue bisacodyl 5 mg twice daily Low threshold for adding Naloxegol Postoperative hypoxemia presumed 2/2 atelectasis - resolved IS, flutter Insulin-dependent type 2 diabetes mellitus Consistent carb diet Oral bisacodyl 5 mg twice daily Chronic Medical Conditions: COPD: continue IMAGERY INTELLIGENCE [id number] [place] esophagus: continue IMAGERY INTELLIGENCE PPI Gastritis: continue IMAGERY INTELLIGENCE sucralfate NIRU: continue IMAGERY INTELLIGENCE buspirone 15 mg twice daily Vitamin-D deficiency: continue IMAGERY INTELLIGENCE vitamin D3 1000 units daily Peripheral neuropathy: continue IMAGERY INTELLIGENCE duloxetine 30 mg twice daily, gabapentin 100 mg HS HTN: hold IMAGERY INTELLIGENCE spironolactone 50 mg daily PHARMACOLOGIC VTE PROPHYLAXIS: Enoxaparin CODE STATUS: Full Code EXPECTED DISCHARGE DATE: 06/13/2023 Patient was discussed with MD Sean Fay MD-[facility] Internal Medicine-Pediatrics PGY3 Associated attestation - Gely Molina MD - 06/11/2023 1:16 PM EDT I saw and evaluated the patient today. I have reviewed the trainee note and agree. Patient had pain control with peripheral nerve block infusion until yesterday since it was stopped yesterday patient reports severe pain of LLE, increase dilaudid PRN dose, narcan PRN, titrate bowel regimen, rest per resident * Renetta Partida PA-C - 06/10/2023 5:31 PM EDT Images from the original note were not included. [facility] H871/A INTERVAL HISTORY: Patient seen and examined in bed this morning. Nerve block infusion d/c per anesthesia. Initially patient's pain well controlled then towards the afternoon started to request diluadid however severaltimes provider went to see her when complaining of pain and she was sleeping upon entering her room. She does have a bit of a CHRISTENSEN but denies dizziness and visual changes. She denies chest pain, SOB, abd pain, N/V. Most of the pain is in her stump up to her thigh/hip. Still no BM. Objective Physical Exam Most Recent Vital Signs: BP: 110 mmHg/58 mmHg (06/10/231448) Pulse: 90 (06/10/231448) Temp: 36.39 C (06/10/231448) Temp Summary: Temp Min: 36.1 C (97 F) Max: 36.8 C (98.3 F) SpO2: 93 % (06/10/231448) O2 flow rate: 0 L/MIN (06/10/231448) Supplemental O2 Delivery: Room Air, None (03/29/24 1449) Constitutional: No acute distress, lying in bed HEENT: normal: normocephalic, atraumatic; no masses, tenderness, or adenopathy CV: normal rate and rhythm, no murmur, gallops or rub Chest: normal respiratory effort, lungs clear to auscultation and percussion Abdomen: normal: soft, bowel sounds normal, no masses, tenderness or organomegaly Musculoskeletal: (-) negative Extremities: (+) Left BKA with dressing intact, no abnormal edema or redness noted Skin: warm, dry: Neuro: alert, oriented to person, place, and time, normal mental status exam, reflexes normal and symmetric, sensory normal Psych: normal mood and affect, nonsuicidal, judgement normal, memory normal Peripheral Line Lower;Posterior;Right Arm (Active) Number of days: Peripheral Nerve Block Left Sciatic (Active) Number of days: 3 STUDIES: Encounter Orders Labs and other studies reviewed with pertinent findings noted below: Latest Reference Range & Units 06/10/23 05:47 06/10/23 07:35 06/10/23 11:30 06/10/23 16:49 Glucose Meter 70 - 120 mg/dL 143 (H) 236 (H) 102 CBC Rpt ! WBC 4.00 - 10.80 K/uL 11.21 (H) RBC 3.85 - 5.15 M/uL 3.84 HGB 12.0 - 15.3 g/dL 11.3 (L) HCT 36.0 - 45.2 % 35.4 (L) MCV 81.5 - 97.5 fL 92.2 MCH 27.0 - 34.0 pg 29.4 MCHC 32.0 - 36.0 g/dL 31.9 RDW 11.5 - 15.5 % 14.2 PLT 140 - 400 K/uL 222 MPV 6.6 - 11.1 fL 10.6 (H): Data is abnormally high !: Data is abnormal (L): Data is abnormally low Rpt: View report in Results Review for more information Assessment and Plan IMPRESSION : Principal Problem: S/P AKA (above knee amputation), left (HCC) Active Problems: Bilateral carotid artery stenosis DM type 2 with diabetic peripheral neuropathy (HCC) Centrilobular emphysema (HCC) COPD, group D, by GOLD 2017 classification (HCC) Chronic ischemic heart disease S/P femoral-femoral bypass surgery Hypertensive heart disease with acute on chronic diastolic congestive heart failure (HCC) History of cardiac arrest Resolved Problems: * No resolved hospital problems. * DIFFERENTIAL AND PLAN: Status post left below-knee amputation secondary to gangrenous History of significant peripheral artery disease with femoral femoral bypass Carotid endarterectomy - Operative findings Viable tissue at amputation level with no evidence of infection - discontinued ropivacaine infusion for sciatic nerve block - Monitor CBC and BMP - vascular consult - ASA 81mg and Plavix 75mg daily - LLE BKA dressing to be changed daily by nursing - Encourage ambulation and OOB as tolerated - Vascular surgery will sign off at this time. Please reach out with any questions or concerns - Rest of care per primary team Postoperative hypoxia (resolved) Flutter therapy, Intensive spirometry Coronary artery disease history of cardiac arrest Mitral regurgitation History of CVA Continue aspirin and Plavix and metoprolol Hold Aldactone for soft blood pressure COPD Continue Trelegy and albuterol p.r.n. Diabetes mellitus -Takes Lantus 10 units HS - continue Lantus 7 units @HS -sliding scale insulin Constipation - started miralax and senokot-s daily, will adjust as indicated - added on dulcolax 5mg BID GERD Continue IMAGERY INTELLIGENCE Protonix and sucralfate PHARMACOLOGIC VTE PROPHYLAXIS: Enoxaparin CODE STATUS: Full Code EXPECTED DISCHARGE DATE: 06/13/2023 Associated attestation - Ivelisse Zuluaga MD - 06/11/2023 5:42 PM EDT I have reviewed the advanced practitioner's documentation on the date of service referenced in note, and I agree with, and take responsibility for the plan of care. I spent a total of 45 minutes coordinating, documenting, and providing care for this patient excluding time spent in the performance of separately billed services or time spent by another provider/QHP. * Wilfrido Saeed MD - 06/10/2023 8:51 AM EDT PROGRESS NOTE - Acute Pain Service [address] [id number] Name: Carlotta Khan [place] [facility] [place] [facility] Date: 06/10/2023 Time: 8:51 AM Patient evaluated for continued pain control with peripheral nerve block infusion. Pt states that this morning her pain was well controlled with oral medications. Pt was sitting comfortably in bed and eating breakfast. Dressing was changed by nursing. Length of Treatment: 3 day(s) Level of Consciousness: awake and alert Pain Score: 6 Insertion Site(s): 1. Location: sciatic; Side: Left Description: without redness, swelling or drainage Dressings: clean, dry and intact Motor: intact Sensory: intact Anticoagulant Therapy: pt on subQ Lovenox, ASA and Plavix Plan: - Primary team was made aware and held Lovenox for catheter removal today at 825 - Recommend to hold Lovenox at least 4 hours post cath removal. - APS will sign off at this time. Please reach out with any questions or concerns. I saw and evaluated the patient today. I have reviewed the trainee note and agree. * Alonso Umana MD - 06/09/2023 11:32 AM EDT PROGRESS NOTE - Acute Pain Service [facility] [place] [id number] Name: Carlotta Khan Location: [facility] [place] H871/A Date: 06/09/2023 Time: 11:32 AM Patient evaluated for continued pain control with peripheral nerve block infusion. Pt states that this morning her pain was well controlled with oral medications. Pt states that painis worst at medial and anterior aspect of leg with some pain in posterior aspect. Was noted that yesterday orders were placed to change rate of infusion to 10mL/hr and was charted by floor staff as being administered as such, however on arrival to bedside infusion was running at 8mL/hr Length of Treatment: 2 day(s) Level of Consciousness: awake and alert Pain Score: 7 Insertion Site(s): 1. Location: sciatic; Side: Left Description: without redness, swelling or drainage Dressings: clean, dry and intact Motor: intact Sensory: intact Anticoagulant Therapy: pt on subQ Lovenox, ASA and Plavix Plan: Will increase rate to 10ml/hr at this time. Ensured that rate was changed and was present forrate change. - Administered clinician bolus of 5mL. Will assess later to gauge response to bolus. - if no response will reassess need for catheter and/or additional PNB for management -Please contact APS team if any changes to dressing, swellling, redness, or drainage from catheter site. - Please contact APS team with any questions. I have discussed the patient's management with the medical trainee and agree with the note. Please refer to the documented findings and plan of care. This patient's visit today consisted of a service. I was readily available for immediate [id number] consultation and assistance. I have reviewed the medical history, physical examination, diagnosis, and plan. Alonso Umana MD * Renetta Partida PA-C - 06/09/2023 7:41 AM EDT Images from the original note were not included. [facility] H871/A INTERVAL HISTORY: Patient seen and examined in bed this morning. She is doing okay but still with quite a bit of pain. She states that it is better than yesterday but still very bothersome. She denies any CHRISTENSEN this morning but is still with dizziness. She states this is also improving. She denies chest pain but is SOB. She had a lot of abdominal pain throughout the day yesterday but denies any now. She states she isalways nauseous but zofran continues to help. She denies urinary complaint such as dysuria and hematuria. She has not had a BM. Objective Physical Exam Most Recent Vital Signs: BP: 148 mmHg/75 mmHg (06/09/23302) Pulse: 89 (06/09/23302) Temp: 36.22 C (06/09/23302) Temp Summary: Temp Min: 36.2 C (97.2 F) Max: 37.2 C (98.9 F) SpO2: 97 % (06/09/23302) O2 flow rate: 2 L/MIN (06/09/23302) Supplemental O2 Delivery: Nasal Cannula (06/09/23 0303) Constitutional: No acute distress HEENT: normal: normocephalic, atraumatic; no masses, tenderness, or adenopathy CV: normal rate and rhythm, no murmur, gallops or rub Chest: normal respiratory effort, lungs clear to auscultation and percussion Abdomen: normal: soft, bowel sounds normal, no masses, tenderness or organomegaly Musculoskeletal: (-) negative Extremities: (+) Left BKA with dressing intact, no abnormal edema or redness noted Skin: warm, dry: Neuro: alert, oriented to person, place, and time, normal mental status exam, reflexes normal and symmetric, sensory normal Psych: normal mood and affect, nonsuicidal, judgement normal, memory normal Peripheral Line Lower;Posterior;Right Arm (Active) Number of days: Peripheral Nerve Block Left Sciatic (Active) Number of days: 2 STUDIES: Encounter Orders Labs and other studies reviewed with pertinent findings noted below: Latest Reference Range & Units 06/09/23 07:56 06/09/23 07:58 Sodium 135 - 146 mmol/L 132 (L) Potassium 3.5 - 5.1 mmol/L 4.9 Chloride 98 - 107 mmol/L 95 (L) CO2 22 - 32 mmol/L 29 BUN 6 - 20 mg/dL 13 Creatinine 0.5 - 1.0 mg/dL 0.7 Estimated Glomerular Filtration Rate >=60 mL/min 88 Anion Gap 7 - 15 mmol/L 8 Glucose 70 - 120 mg/dL 184 (H) Calcium 8.4 - 10.2 mg/dL 10.0 Glucose Meter 70 - 120 mg/dL 163 (H) CBC Rpt ! WBC 4.00 - 10.80 K/uL 14.20 (H) RBC 3.85 - 5.15 M/uL 4.06 HGB 12.0 - 15.3 g/dL 12.0 HCT 36.0 - 45.2 % 37.3 MCV 81.5 - 97.5 fL 91.9 MCH 27.0 - 34.0 pg 29.6 MCHC 32.0 - 36.0 g/dL 32.2 RDW 11.5 - 15.5 % 14.5 PLT 140 - 400 K/uL 230 MPV 6.6 - 11.1 fL 10.2 (L): Data is abnormally low (H): Data is abnormally high !: Data is abnormal Rpt: View report in Results Review for more information Assessment and Plan IMPRESSION : Principal Problem: S/P AKA (above knee amputation), left ([facility]) Active Problems: Bilateral carotid artery stenosis DM type 2 with diabetic peripheral neuropathy ([facility]) Centrilobular emphysema ([facility]) COPD, group D, by GOLD 2017 classification ([facility]) Chronic ischemic heart disease S/P femoral-femoral bypass surgery Hypertensive heart disease with acute on chronic diastolic congestive heart failure ([facility]) History of cardiac arrest Resolved Problems: * No resolved hospital problems. * DIFFERENTIAL AND PLAN: Status post left below-knee amputation secondary to gangrenous History of significant peripheral artery disease with femoral femoral bypass Carotid endarterectomy -Operative findings Viable tissue at amputation level with no evidence of infection -Perioperative antibiotics, DVT prophylaxis, pain control, Wound Care as per Vascular Surgery. Planfor dressing change tomorrow, 06/09 - continue on ropivacaine for sciatic nerve block -Monitor CBC and BMP Postoperative hypoxia Wean off oxygen Flutter therapy, Intensive spirometry Coronary artery disease history of cardiac arrest Mitral regurgitation History of CVA Continue aspirin and Plavix and metoprolol Hold Aldactone for soft blood pressure COPD Continue Trelegy and albuterol p.r.n. Diabetes mellitus -Takes Lantus 10 units HS -Increased Lantus to 7 units last night and BG better controlled today. Will leave at 7U and reassess tomorrow -sliding scale insulin Constipation - started miralax and senokot-s daily, will adjust as indicated - one time dulcolax tab today GERD Continue IMAGERY INTELLIGENCE Protonix and sucralfate PHARMACOLOGIC VTE PROPHYLAXIS: Enoxaparin CODE STATUS: Full Code EXPECTED DISCHARGE DATE: 06/11/2023 Associated attestation - Ivelisse Zuluaga MD - 06/09/2023 3:04 PM EDT I have reviewed the advanced practitioner's documentation on the date of service referenced in note, and I agree with, and take responsibility for the plan of care. Seen patient at bedside. Still complaining of on and off pain and had nausea. Had worked with physical therapy earlier and discussed with physical therapy regarding her functional status. Will likely require disposition for rehab when medically ready to be discharged. I spent a total of 50 minutes coordinating, documenting, and providing care for this patient excluding time spent in the performance of separately billed services or time spent by another provider/QHP. * Renetta Partida PA-C - 06/08/2023 3:39 PM EDT Images from the original note were not included. [facility] [place] H871/A INTERVAL HISTORY: Patient seen and examined in bed this morning. She does have a CHRISTENSEN but states that when she gets oxyfor pain it goes away. She denies dizziness, visual changes, chest pain, SOB. She denies abdominal pain currently but notes she has a chronic history of abdominal pain with eating requiring her to sometimes take zofran for nausea as well. She denies urinary complaints including dysuria and hematuria. Patient stating that initially pain was being semi relieved by pain meds however its significantly worse now. She required several doses of IV diluadid however pain still not controlled, patient crying out. Objective Physical Exam Most Recent Vital Signs: BP: 95 mmHg/62 mmHg (06/08/23 1440) Pulse: 91 (06/08/23 1440) Temp: 37.17 C (06/08/23 1440) Temp Summary: Temp Min: 36.3 C (97.3 F) Max: 37.2 C (98.9 F) SpO2: 92 % (06/08/23 1440) O2 flow rate: 2 L/MIN (06/08/23 0800) Supplemental O2 Delivery: Room Air, None (06/08/23 144) Constitutional: (+) acute distress 2/2 pain, crying out HEENT: normal: normocephalic, atraumatic; no masses, tenderness, or adenopathy CV: normal rate and rhythm, no murmur, gallops or rub Chest: normal respiratory effort, lungs clear to auscultation and percussion Abdomen: normal: soft, bowel sounds normal, no masses, tenderness or organomegaly Musculoskeletal: (-) negative Extremities: (+) Left BKA with dressing intact, no abnormal edema or redness noted Skin: warm, dry: Neuro: alert, oriented to person, place, and time, normal mental status exam, reflexes normal and symmetric, sensory normal Psych: normal mood and affect, nonsuicidal, judgement normal, memory normal Peripheral Line Lower;Posterior;Right Arm (Active) Number of days: Drain Other-Describe Anterior;Left;Lower;Proximal Leg (Active) Number of days: 1 Peripheral Nerve Block Left Sciatic (Active) Number of days: 1 STUDIES: Encounter Orders Labs and other studies reviewed with pertinent findings noted below: Latest Reference Range & Units 06/08/23 05:36 06/08/23 07:49 06/08/23 11:46 Sodium 135 - 146 mmol/L 139 Potassium 3.5 - 5.1 mmol/L 4.6 Chloride 98 - 107 mmol/L 102 CO2 22 - 32 mmol/L 28 BUN 6 - 20 mg/dL 14 Creatinine 0.5 - 1.0 mg/dL 0.8 Estimated Glomerular Filtration Rate >=60 mL/min 80 Anion Gap 7 - 15 mmol/L 9 Glucose 70 - 120 mg/dL 100 Calcium 8.4 - 10.2 mg/dL 9.6 Magnesium 1.5 - 2.6 mg/dL 1.9 Phosphorus 2.5 - 4.8 mg/dL 3.6 Protein 6.0 - 8.3 g/dL 6.3 Estimated Average Glucose <126 mg/dL 214 (H) Glucose Meter 70 - 120 mg/dL 98 245 (H) Hemoglobin A1C 4.0 - 5.6 % 9.1 (H) CBC Rpt ! WBC 4.00 - 10.80 K/uL 12.76 (H) RBC 3.85 - 5.15 M/uL 3.84 HGB 12.0 - 15.3 g/dL 11.4 (L) HCT 36.0 - 45.2 % 35.6 (L) MCV 81.5 - 97.5 fL 92.7 MCH 27.0 - 34.0 pg 29.7 MCHC 32.0 - 36.0 g/dL 32.0 RDW 11.5 - 15.5 % 14.6 PLT 140 - 400 K/uL 246 MPV 6.6 - 11.1 fL 10.1 Albumin 3.8 - 5.0 g/dL 3.7 (L) AST 10 - 35 U/L 55 (H) ALT 10 - 35 U/L 16 Alkaline Phosphatase 35 - 130 U/L 93 Bilirubin, Total <=1.2 mg/dL 0.6 (H): Data is abnormally high !: Data is abnormal (L): Data is abnormally low Rpt: View report in Results Review for more information Assessment and Plan IMPRESSION : Principal Problem: S/P AKA (above knee amputation), left (HCC) Active Problems: Bilateral carotid artery stenosis DM type 2 with diabetic peripheral neuropathy ([facility]) Centrilobular emphysema (HCC) COPD, group D, by GOLD 2017 classification ([facility]) Chronic ischemic heart disease S/P femoral-femoral bypass surgery Hypertensive heart disease with acute on chronic diastolic congestive heart failure ([facility]) History of cardiac arrest Resolved Problems: * No resolved hospital problems. * DIFFERENTIAL AND PLAN: Status post left below-knee amputation secondary to gangrenous History of significant peripheral artery disease with femoral femoral bypass Carotid endarterectomy -Operative findings Viable tissue at amputation level with no evidence of infection -Perioperative antibiotics, DVT prophylaxis, pain control, Wound Care as per Vascular Surgery - started on ropivacaine for sciatic nerve block -Monitor CBC and BMP Postoperative hypoxia Wean off oxygen Flutter therapy, Intensive spirometry Coronary artery disease history of cardiac arrest Mitral regurgitation History of CVA Continue aspirin and Plavix and metoprolol Hold Aldactone for soft blood pressure COPD Continue Trelegy and albuterol p.r.n. Diabetes mellitus Takes Lantus 10 units HS Increase Lantus to 7 units tonight and sliding scale insulin GERD Continue IMAGERY INTELLIGENCE Protonix and sucralfate PHARMACOLOGIC VTE PROPHYLAXIS: Enoxaparin CODE STATUS: Full Code EXPECTED DISCHARGE DATE: 06/11/2023 Associated attestation - Ivelisse Zuluaga MD - 06/09/2023 7:41 AM EDT I have reviewed the advanced practitioner's documentation on the date of service referenced in note, and I agree with, and take responsibility for the plan of care. On 06/08/2023 I spent a total of 45 minutes coordinating, documenting, and providing care for this patient excluding time spent in the performance of separately billed services or time spent by another provider/QHP. * Wilfrido Saeed MD - 06/08/2023 1:55 PM EDT PROGRESS NOTE - Acute Pain Service [address] [address] Name: Carlotta Khan [place] [facility] [place] H[facility]/A Date: 06/08/2023 Time: 1:55 PM Patient evaluated for continued pain control with peripheral nerve block infusion. Pt states that this morning her pain was well controlled, but this morning after breakfast she suddenly started having pain. Nursing states that pt was using bedpan in AM, after getting off of bedpan her pain began. Pt received oxycodone thereafter and was comfortable until early afternoon. Length of Treatment: 2 day(s) Level of Consciousness: awake and alert Pain Score: 10 Insertion Site(s): 1. Location: sciatic; Side: right; Description: without redness, swelling or drainage Dressings: clean, dry and intact Motor: intact Sensory: intact Anticoagulant Therapy: pt on subQ Lovenox Plan: Will increase rate to 10ml/hr at this time -Please contact APS team if any changes to dressing, swellling, redness, or drainage from catheter site. - Please contact APS team with any questions. I saw and evaluated the patient today. I have reviewed the trainee note and agree. A procedure was performed. I was present for entire procedure. I agree with the trainee note. documented in this encounter H&P Notes * Raleigh Preciado MD - 06/07/2023 10:52 AM EDT Images from the original note were not included. [facility] [place] PRESENTING PROBLEM: Elective left AKA HPI: Carlotta Khan is a 72 year old female with hx of CAD s/p stent, DMII, HLD, COPD, PAD, CVA with L sided residual weakness, [place] esophagus, DJD, polyneuropathy, Depression/Anxiety, carotid disease s/p R CEA, SMA stenosis admitted status post left above-knee amputation secondary to gangrene. Patient was seen in PACU recovering from anesthesia answering questions appropriately reports of worsening pain. Also reports of nausea. Denies fever, chills, cough, chest pain Patient had 100 mL blood loss received 500 mL fluid and 250 mL albumin Operative findings Viable tissue at amputation level with no evidence of infection Subjective Patient's past history, medications, and allergies were reviewed. Objective Physical Exam Most Recent Vital Signs: BP: 97 mmHg/45 mmHg (06/07/23 1130) Pulse: 94 (06/07/23 1130) Temp: 37.11 C (06/07/23 1050) Temp Summary: Temp Min: 36.7 C (98.1 F) Max: 37.1 C (98.8 F) SpO2: 97 % (06/07/23 1130) O2 flow rate: 3 L/MIN (06/07/23 1115) Supplemental O2 Delivery: Nasal Cannula (06/07/23 1115) Constitutional: NAD, AAO x 3 Neck: Supple, Normal ROM Eyes: Sclera normal, PERRLA Cardiovascular: RRR, no murmurs/rubs/gallops appreciated Pulmonary: Lungs clear to auscultation bilaterally, No rales/rhonchi/wheezes appreciated GI: Nontender to palpation, normal bowel sounds, soft Extremities: Left AKA Skin: Appears warm and dry Neurological: AAO x 3, No gross focal neurologic deficit on exam Peripheral Line Lower;Posterior;Right Arm (Active) Number of days: Drain Other-Describe Anterior;Left;Lower;Proximal Leg (Active) Number of days: 0 Peripheral Nerve Block Left Sciatic (Active) Number of days: 0 STUDIES: Encounter Orders Labs and other studies reviewed with pertinent findings noted below: Labs 06/07/2023 Chemistry within normal limits Calcium 10.5 Glucose 168 CBC with some leukocytosis, hemoglobin 14, platelets 300 Assessment and Plan IMPRESSION: Principal Problem: S/P AKA (above knee amputation), left ([facility]) Active Problems: Bilateral carotid artery stenosis DM type 2 with diabetic peripheral neuropathy ([facility]) Centrilobular emphysema ([facility]) COPD, group D, by GOLD 2017 classification ([facility]) Chronic ischemic heart disease S/P femoral-femoral bypass surgery Hypertensive heart disease with acute on chronic diastolic congestive heart failure ([facility]) History of cardiac arrest Resolved Problems: * No resolved hospital problems. * DIFFERENTIAL AND PLAN: Status post left below-knee amputation secondary to gangrenous History of significant peripheral artery disease with femoral femoral bypass Carotid endarterectomy Operative findings Viable tissue at amputation level with no evidence of infection Perioperative antibiotics, DVT prophylaxis, pain control, Wound Care as per Vascular Surgery Monitor CBC and BMP Postoperative hypoxia Wean off oxygen Flutter therapy, Intensive spirometry Coronary artery disease history of cardiac arrest Mitral regurgitation History of CVA Continue aspirin and Plavix and metoprolol Hold Aldactone for soft blood pressure COPD Continue Trelegy and albuterol p.r.n. Diabetes mellitus Takes Lantus 10 units HS Continue Lantus 5 units adjust today and sliding scale insulin GERD Continue IMAGERY INTELLIGENCE Protonix and sucralfate PHARMACOLOGIC VTE PROPHYLAXIS:Enoxaparin CODE STATUS: Full Code EXPECTED DISCHARGE DATE: No information available I spent a total of 66 minutes coordinating, documenting, and providing care for this patient excluding time spent in the performance of separately billed services. * Harrison Dodd MD - 06/07/2023 8:15 AM EDT HISTORY & PHYSICAL INTERVAL NOTE [facility] [id number] History and Physical Update: Name: Carlotta Khan Location: [place] [facility] [place] Date: 06/07/2023 Time: 8:15 AM DATE OF HISTORY AND PHYSICAL: 05/31/23 BP: / Pulse: Temp: 36.72 C (06/07/23 0745) Temp Summary: Temp Min: 36.7 C (98.1 F) Max: 36.7 C (98.1 F) SpO2: O2 flow rate: Supplemental O2 Delivery: Room Air, None (06/07/23 0745) Does patient take a beta ragini? No Did patient stop anticoagulants? - Plavix: stopped 4 days ago - ASA 81mg: last dose this morning Heart Exam: regular rate and rhythm Lung Exam: bilateral expiratory wheezes Other Pertinent Physical Exam: None I have reviewed the H&P previously performed and examined the patient today. There are no new findings noted. Associated attestation - Nnamdi King MD - 06/07/2023 8:23 AM EDT I saw and evaluated the patient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 DIAGNOSTIC performed by Cassandra Hart MD at [facility] COLONOSCOPY, DIAGNOSTIC (RECTUM) 09/27/2018 6 mm descending tubular adenoma, performed by Cassandra Hart MD at [facility] COMPOSITE SKIN GRAFT b/l axilla, donor site b/l thighs CORONARY ANGIOGRAPHY W/LEFT HEART CATH N/A 11/10/2022 CORONARY ANGIOGRAPHY W/LEFT HEART CATH performed by Patrice Jose MD at [facility] [place] ABDOMEN/PELVIS 09/28/[address] [...] performed by Cassandra Hart MD at [facility] EGD, FLEXIBLE, DIAGNOSTIC 01/19/2019 gastric irritation on bx/[facility] EGD, FLEXIBLE, W/BIOPSY 09/27/2018 1 cm salmon colored mucosa suggestive of short segment Pendleton's, mild erythema antrum FEM/POP ARTERY REVASC W/ANGIOPLASTY Left 04/14/2022 FEM/POP ARTERY REVASC W/ANGIOPLASTY performed by Nnamdi King MD at [place] [facility] FEM/POP ARTERY REVASC W/ANGIOPLASTY Right 09/23/2022 FEM/POP ARTERY REVASC W/ANGIOPLASTY performed by Nnamdi King MD at [place] [facility] ILIAC ART. REVASCULARIZATION W/ANGIOPLASTY Left 09/23/2022 ILIAC ARTERY REVASCULARIZATION W/ANGIOPLASTY performed by Nnamdi King MD at [place] [facility] IOF VASC CAROTID DUPLEX, BILATERAL 12/06/2012 Right carotid artery duplex examination indicates evidence of a less than 50% stenosis of the internal carotid artery. IR ARTERIOGRAM EXTREMITY BILATERAL 04/14/2022 ANGIOGRAPHY EXTREMITY BILATERAL performed by Nnamdi King MD at [place] [facility] IR ARTERIOGRAM EXTREMITY BILATERAL N/A 09/23/2022 ANGIOGRAPHY EXTREMITY BILATERAL performed by Nnamdi King MD at OR [facility] IR STENT PLACEMENT, INITIAL ARTERY N/A 04/14/2022 NON LOWER EXTREMITY OR CAROTID STENT REVASCULARIZATION WITH RADIOLOGIC SUPERVISION AND INTERPRETATION performed by Nnamdi King MD at [place] [facility] MAMMOGRAM SCREENING BILATERAL Bilateral 08/20/2014 almost entirely fat, category 1 normal MAMMOGRAM SCREENING BILATERAL Bilateral 05/12/2017 scattered fibroglandular densities category 1 normal MOBILE DXA 07/03/2018 Lumbar T -0.7, left femur T -2.9, high risk, treatment recommended NEG PRESSURE WOUND THERAPY DME </= 50 SQ CM N/A 11/04/2022 NEGATIVE PRESSURE WOUND THERAPY LESS THAN 50SQ CM performed by Nnamdi King MD at [place] [facility] NEG PRESSURE WOUND THERAPY DME </= 50 SQ CM N/A 11/16/2022 NEGATIVE PRESSURE WOUND THERAPY LESS THAN 50SQ CM performed by Nnamdi King MD at [place] [facility] NM HEPATOBILIARY SYSTEM WITH PHARMACOLOGIC INTERVENTION 10/18/2018 normal hepatic scan with normal GE ejection fraction PARTIAL AMPUTATION OF TOE Right 11/04/2022 AMPUTATION TOE INTERPHALANGEAL JOINT performed by Nnamdi King MD at [place] [facility] PARTIAL HYSTERECTOMY PFT/BA BRONCHODILATOR N/A 03/11/2021 probably normal PFT with some airway reversibility PLACE INTRACORONARY STENT, FIRST VS [id number] REMOVE CATARACT, INSERT LENS PROSTH Left 01/27/2017 Dr Gunter REPAIR OF BLADDER NECK 1994 Dr Montesinos/needed redone due to infection SUBQ DEBRIDEMENT, FIRST 20 CM2 N/A 11/04/2022 DEBRIDEMENT SKIN AND SUBCUTANEOUS TISSUE performed by Nnamdi King MD at [place] [facility] SUBQ DEBRIDEMENT, FIRST 20 CM2 N/A 11/16/2022 DEBRIDEMENT SKIN AND SUBCUTANEOUS TISSUE performed by Nnamdi King MD at [place] [facility] SYNTH BYPASS, FEM-FEM 2004 fem-fem bypass, [facility] THROMBOENDARECTOMY W/PATCH,NECK INCISION [id number] right CEA, [place] THROMBOENDARECTOMY W/PATCH,NECK INCISION 08/19/2008 right redo eversion carotid endarterectomy /Dr. Bynum TOOTH ROOT REMOVAL 01/23/2016 full mouth extraction, Dr Dmitry CALLAH[facility] ANGIOPLASTY OPEN/PERC IMAGE 1ST ARTERY Right 04/14/2022 ANGIOPLASTY ARTERIAL (EXCEPT LOWER EXTREMITY) performed by Nnamdi King MD at [place] [facility] US ABDOMEN COMPLETE 08/08/2018 normal VASC DUPLEX CAROTID BILAT Bilateral 08/20/2014 <50% PAIGE, 50-69% LICA stenosis, vertebrals antegrade VIDEO CAPSULE ENDOSCOPY 03/01/2019 unremarkable XR RIBS UNILATERAL W/PA CHEST MINIMUM 3 VIEWS Left 02/25/2015 nondisplaced incomplete cortical fractures posterior lateral left third, fourth and fifth ribs Subjective: Pt awake in bed, agreeable to PT. States she has severe pain and nausea. Social History/Disposition Lives with: Family (06/09/231046) Assistance available: Yes (06/09/231046) Dwelling type: Multi-story home (06/09/231046) Entry steps: 1 (06/09/231046) Inside steps: 10 - 15 (stairglide) (06/09/231046) Bedroom location: 1st floor (06/09/231046) Bath location: 1st floor full bath;2nd floor full bath (06/09/231046) Prior Level of Function Reported by: Patient (06/09/231046) Ambulation: Ambulatory with device (06/09/231046) Ambulatory Device: Rolling walker (06/09/231046) Devices at home: Rolling walker (06/09/231046) Observations Consciousness: Alert (06/09/231046) Orientation: Oriented times 4 (06/09/231046) Psychosocial: Patient can communicate basic needs;Patient can converse in a social setting (06/09/231046) Other Findings: Yes (06/09/231046) Findings: Light touch sensation (06/09/231046) Light Touch Sensation Results: Intact;LLE;RLE (06/09/231046) Sitting Posture: Rounded shoulders (06/09/231046) Standing Posture: Rounded shoulders (06/09/231046) Pain: Patient has complaints of pain. Pain located in LLE, rated 10/10. RN aware. Range of Motion Range of Motion: WFL (06/09/231046) Strength Assessment Strength Assessment: Deficits noted (06/09/231046) WNL, except: LLE;RLE (06/09/231046) LLE: Hip;Knee;3/5 (06/09/231046) RLE: Hip;Knee;Ankle;4/5 (06/09/231046) P.T. Bed Mobility Supine-Sit: Minimal Assistance (06/09/231046) Sit-Supine: Minimal Assistance (06/09/231046) Transfers Sit-Stand: Minimal Assistance (x2) (06/09/231046) Stand-Sit: Minimal Assistance (x2) (06/09/231046) Balance Sit (Static): Fair (06/09/231046) Sit (Dynamic): Fair (06/09/231046) Stand (Static): Poor (06/09/231046) Patient and or Family Goal(s): to get well and to return home Patient Education Review of Precautions: Safety;Fall;Weight Bearing Status (06/09/231046) Safety Awareness: Patient verbalizes insight of current deficits;Patient demonstrates carryover of insight during functional tasks;Patient can communicate basic needs (06/09/231046) Preferred learning method: Combination (06/09/231046) Barriers to learning: Medical Status (06/09/231046) Method of Education: Verbalized to patient;Patient demonstrated task (06/09/231046) Topic of Education: Weight bearing restrictions, Safety with mobility, Goals/plan of care, Use of assistive device, and Fall prevention Method of Education: Verbal discussion and explanation provided to pt: verbalized understanding andor agreement of this information and demonstrated the exercise and or task Treatment Provided: Evaluation Moderate Complexity 11 minutes - 60430: Patient was cooperative and pleasant during treatment session. Moderate complexity evaluation performed and 1-2 personal factorsor comorbidities were identified that will impact plan of care, including weight bearing restrictions and history of L BKA. Patient presents with limitations in strength, bed mobility, transfers, gait, elevations, balance, endurance, and safety, which will impact plan of care. These limitations will be addressed by the goals set for this patient. Alarm Status Patient positioned in: Bed (06/09/231046) With: Bed alarm intact and functioning and call chaudhari in reach (06/09/231046) Goals: Demonstrate Bed Mobility with: supervision Demonstrate Transfers with: contact guard Demonstrate Ambulation: least restrictive device, 10 ft with contact guard Demonstrate Stairclimbing (When appropriate): Number of steps: 1 and Level of Assistance: contact guard Increase Strength of: B/L LE by 1/2-1 muscle grade Increase standing balance to: fair - Increase Safety: with all functional mobility Time Frame: 8 visits Assessment: Pt is a 72 year old female presenting s/p L BKA. Pt alert and oriented x4, following all commands throughout session. Pt reporting severe pain in LLE but willing to attempt mobility, RN aware of pain levels. Educated pt on nonweightbearing status of LLE prior to mobility in which pt verbalized understanding and agreement. Pt demonstrated fair LE strength/ROM and intact sensation. Pt required assist with trunk during bed mobility to obtain sitting at edge of bed. Pt required assist x2 to stand with rolling walker in front. Upon standing, pt static stood for 1 minute before experiencing increased dizziness which resulted in pt returning to supine. Please consider post-acute care services which may include home health, [place] [facility] [place], outpatient therapy or inpatient rehabilitation. The level of care will be determined in collaboration with patient, family/caregiver and care team members. All needs met. Deficits requiring P.T. treatment needs: Safety;Mobility;Balance;Weakness;Endurance;Lower extremitystrength (06/09/231046) Equipment Needs: Equipment needs: No device (06/09/231046) Treatment Plan: Bed mobility training, Transfer training, Gait training, Strengthening exercises: B/L LE, Balance activities, and Educate on safety with functional mobility Anticipated Frequency (on eval): 1 to 3 times per week (06/09/231046) AM PAC Score with Stairs: 12 A portion of this AM-PAC assessment not scored based on functional assessment; rather clinical decision making utilized based on current findings and/or prior level of function. Please refer to future AM-PAC calculations of functional ability as they become available. * Dagoberto Hamilton OT - 06/09/2023 10:46 AM EDTAssociated Order(s): ADULT OCCUPATIONAL THERAPY CONSULT IP GENERAL EVALUATION- Occupational Therapy [address] [id number] Name: Carlotta Khan [place] [facility] [id number] Date: 06/09/2023 Time: 10:46 AM HPI: Per EPIC, "Patient is a dedicated smoker with diffuse vascular disease. Recently stubbed her L 3rd toe in 03/2023 and developed an ulceration which has failed to heal. Hasbeen seen by local Service Attendant with instructions to follow up with Vascular Surgery as local wound care was not leading to healing of her wound. No reported fever or localized s/s of infection. Toe is painful and will awaken her at night despite use of Vicodin." Patient Status: Inpatient Insurance: Payor: [employer] Plan: [employer] SECURE 1 AND 3 MC-ND Product Type: *No Product type* Payor: [employer] Plan: [employer] Product Type: *No Product type* Payor: [employer] PR Plan: [employer] [facility] Product Type: O Patient Seen: at bedside, nursing cleared patient for therapy Patient Identified By: Name, ID Band and Date Diagnosis: s/p L BKA (06/09/23 1040) Status of treatment: Evaluation completed (06/09/23 1040) Orders: OT evaluation and treatment;OT OOB (06/09/23 1040) Weight Bearing Status: Non-weight bearing;LLE (06/09/23 1040) Precautions: Alarms;Falls;Safety (06/09/23 1040) Total Treatment Time: 15 (06/09/23 1040) Past Medical History: Past Medical History: Diagnosis Date Asthma, allergic Benign neoplasm of colon 01/2009 3 mm tubular adenoma in sigmoid, f/u colonoscopy in 5 yrs BMI 32.0-32.9,adult Calculus of kidney spontanteous passage Cardiac arrest (HCC) 11/04/2022 history Carotid artery stenosis, asymptomatic left Carotid Stenosis, infarct w/in 8 wks 08/20/2008 Cellulitis of right foot 07/02/2019 [facility] for severe pain, cellulitis right foot Cerebrovascular Dz, 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 Pt with hx of embolic stroke. L hemiplegia Chronic ischemic heart disease Contusion of hand, right 05/21/2016 Coronary atherosclerosis of [place] coronary artery DM type 2, goal A1c below 7 1994 after being on steroids for a while Fracture of three ribs on left side 02/25/2015 left 3,4,5 Generalized anxiety disorder Generalized osteoarthritis Hidradenitis had skin grafts under both arms by Dr Burrell Hyperlipidemia LDL goal < 70 Hypoxia 02/28/2015 [place], related to hypoventilation from rib fx pain Intracerebral hemorrhage (HCC) 07/03/2008 Need for hepatitis C screening test 08/08/2014 negative Obesity, BMI not known used to weigh 280 Old myocardial infarct x 2 with stent placement OTHER LATE EFFECTS CEREBROVASCULAR DISEASE 07/03/2008 RSD upper limb left arm Scabies 06/07/2017 Treated in [place] ER. Senile osteoporosis 07/03/2018 high risk Simple or chronic serous otitis media Chronic Serous Otitis Media Spasm of muscle 11/05/2010 Stroke, acute, within 8 weeks 05/30/2008 L hemiplegia Tobacco use disorder Ulnar nerve lesion neuropathy UNSPEC. HEMIPL. AND HEMIPARESIS AFFECTING NONDOMINANT SIDE 07/03/2008 Unspecified constipation 07/03/2008 Past Surgical History: Past Surgical History: Procedure Laterality Date AMPUTATION OF LOWER LEG Left 06/07/2023 AMPUTATION LEG THROUGH TIBIA AND FIBULA performed by Nnamdi King MD at [place] [facility] ANKLE-BRACHIAL INDEX (CARDIOLOGY) Bilateral 11/03/2018 left 1.0, right 0.32 ANKLE-BRACHIAL INDEX (CARDIOLOGY) Bilateral 12/29/2018 Right 0.73, left 0.9 AORTOGRAM ABDOMINAL-TECH ONLY 04/14/2022 IMAGING SUPERVISION & INTERPRETATION ABDOMINAL AO performed by Nnamdi King MD at [place] [facility] APPENDECTOMY W/OTHER PROCEDURE CARDIAC ANGIOPLASTY, PERCUTANEOUS, 1 ARTERY Bilateral 11/12/2022 PTCA, CARDIAC ANGIOPLASTY, PERCUTANEOUS, 1 ARTERY performed by Patrice Jose MD at [facility] COLONOSCOPY THRU STOMA, W/BIOPSY 01/2009 adenomatous polyp, f/u colonoscopy in 5 yrs COLONOSCOPY, DIAGNOSTIC (RECTUM) 07/13/2018 poor prep, repeat 6 mo/COLONOSCOPY FLEXIBLE PROXIMAL DIAGNOSTIC performed by Cassandra Hart MD at [facility] COLONOSCOPY, DIAGNOSTIC (RECTUM) 09/27/2018 6 mm descending tubular adenoma, performed by Cassandra Hart MD at [facility] COMPOSITE SKIN GRAFT b/l axilla, donor site b/l thighs CORONARY ANGIOGRAPHY W/LEFT HEART CATH N/A 11/10/2022 CORONARY ANGIOGRAPHY W/LEFT HEART CATH performed by Patrice Jose MD at [facility] [place] ABDOMEN/PELVIS 09/28/[address] [...] performed by Cassandra Hart MD at [facility] EGD, FLEXIBLE, DIAGNOSTIC 01/19/2019 gastric irritation on /[facility] EGD, FLEXIBLE, W/BIOPSY 09/27/2018 1 cm salmon colored mucosa suggestive of short segment Pendleton's, mild erythema antrum FEM/POP ARTERY REVASC W/ANGIOPLASTY Left 04/14/2022 FEM/POP ARTERY REVASC W/ANGIOPLASTY performed by Nnamdi King MD at [place] [facility] FEM/POP ARTERY REVASC W/ANGIOPLASTY Right 09/23/2022 FEM/POP ARTERY REVASC W/ANGIOPLASTY performed by Nnamdi King MD at OR [facility] ILIAC ART. REVASCULARIZATION W/ANGIOPLASTY Left 09/23/2022 ILIAC ARTERY REVASCULARIZATION W/ANGIOPLASTY performed by Nnamdi King MD at OR [facility] IOF VASC CAROTID DUPLEX, BILATERAL 12/06/2012 Right carotid artery duplex examination indicates evidence of a less than 50% stenosis of the internal carotid artery. IR ARTERIOGRAM EXTREMITY BILATERAL 04/14/2022 ANGIOGRAPHY EXTREMITY BILATERAL performed by Nnamdi King MD at OR [facility] IR ARTERIOGRAM EXTREMITY BILATERAL N/A 09/23/2022 ANGIOGRAPHY EXTREMITY BILATERAL performed by Nnamdi King MD at OR [facility] IR STENT PLACEMENT, INITIAL ARTERY N/A 04/14/2022 NON LOWER EXTREMITY OR CAROTID STENT REVASCULARIZATION WITH RADIOLOGIC SUPERVISION AND INTERPRETATION performed by Nnamdi King MD at OR [facility] MAMMOGRAM SCREENING BILATERAL Bilateral 08/20/2014 almost entirely fat, category 1 normal MAMMOGRAM SCREENING BILATERAL Bilateral 05/12/2017 scattered fibroglandular densities category 1 normal MOBILE DXA 07/03/2018 Lumbar T -0.7, left femur T -2.9, high risk, treatment recommended NEG PRESSURE WOUND THERAPY DME </= 50 SQ CM N/A 11/04/2022 NEGATIVE PRESSURE WOUND THERAPY LESS THAN 50SQ CM performed by Nnamdi King MD at [place] [facility] NEG PRESSURE WOUND THERAPY DME </= 50 SQ CM N/A 11/16/2022 NEGATIVE PRESSURE WOUND THERAPY LESS THAN 50SQ CM performed by Nnamdi King MD at OR [facility] NM HEPATOBILIARY SYSTEM WITH PHARMACOLOGIC INTERVENTION 10/18/2018 normal hepatic scan with normal GE ejection fraction PARTIAL AMPUTATION OF TOE Right 11/04/2022 AMPUTATION TOE INTERPHALANGEAL JOINT performed by Nnamdi King MD at OR [facility] PARTIAL HYSTERECTOMY PFT/BA BRONCHODILATOR N/A 03/11/2021 probably normal PFT with some airway reversibility PLACE INTRACORONARY STENT, FIRST VS [id number] REMOVE CATARACT, INSERT LENS PROSTH Left 01/27/2017 Dr Gunter REPAIR OF BLADDER NECK 1994 Dr Montesinos/needed redone due to infection SUBQ DEBRIDEMENT, FIRST 20 CM2 N/A 11/04/2022 DEBRIDEMENT SKIN AND SUBCUTANEOUS TISSUE performed by Nnamdi King MD at OR [facility] SUBQ DEBRIDEMENT, FIRST 20 CM2 N/A 11/16/2022 DEBRIDEMENT SKIN AND SUBCUTANEOUS TISSUE performed by Nnamdi King MD at OR [facility] SYNTH BYPASS, FEM-FEM 2004 fem-fem bypass, [facility] THROMBOENDARECTOMY W/PATCH,NECK INCISION [id number] right CEA, [place] THROMBOENDARECTOMY W/PATCH,NECK INCISION 08/19/2008 right redo eversion carotid endarterectomy /Dr. Bynum TOOTH ROOT REMOVAL 01/23/2016 full mouth extraction, Dr Dmitry CALLAH[facility] ANGIOPLASTY OPEN/PERC IMAGE 1ST ARTERY Right 04/14/2022 ANGIOPLASTY ARTERIAL (EXCEPT LOWER EXTREMITY) performed by Nnamdi King MD at OR [facility] US ABDOMEN COMPLETE 08/08/2018 normal VASC DUPLEX CAROTID BILAT Bilateral 08/20/2014 <50% PAIGE, 50-69% LICA stenosis, vertebrals antegrade VIDEO CAPSULE ENDOSCOPY 03/01/2019 unremarkable XR RIBS UNILATERAL W/PA CHEST MINIMUM 3 VIEWS Left 02/25/2015 nondisplaced incomplete cortical fractures posterior lateral left third, fourth and fifth ribs Social History/Disposition Lives with: Family (06/09/23 104) Assistance available: Yes (06/09/23 104) Dwelling type: Multi-story home (06/09/23 104) Entry steps: 1 (06/09/23 104) Inside steps: 10 - 15 (06/09/23 104) Bedroom location: 1st floor (06/09/23 104) Bath location: 1st floor full bath;2nd floor full bath (06/09/23 104) Prior Level of Function Reported by: Patient (06/09/23 104) Ambulation: Ambulatory with device (06/09/23 1040) Ambulatory Device: Rollator (06/09/23 1040) Grooming: Independent (06/09/23 104) Bathing: Independent (06/09/23 1040) Dressing: Independent (06/09/23 1040) Feeding: Independent (06/09/23 104) Toileting: Independent (06/09/23 1040) Durable Medical Equipment at home: Rollator (06/09/23 1040) Observations Consciousness: Alert (06/09/23 104) Orientation: Oriented times 4 (06/09/231039) Psychosocial: Patient can communicate basic needs;Patient can converse in a social setting (06/09/23 104) Sitting posture: Forward head;Rounded shoulders (06/09/23 1040) Standing posture: Forward head;Rounded shoulders (06/09/23 1040) Safety awareness: The Patient verbalizes insight of current deficits.;The Patient demonstrates carryover of insight during functional tasks. (06/09/23 104) Pain: Patient has complaints of 10/10 surgical site pain Current Functional Status: UE Strength/ROM: BUE are WFL and 4/5 throughout Bed Mobility Supine-Sit: Minimal Assistance (06/09/23 1040) Sit-Supine: Minimal Assistance (06/09/23 1040) OT Transfers Sit-Stand: Minimal Assistance (x2) (06/09/23 1040) Stand-Sit: Minimal Assistance (06/09/23 1040) Self Care Able to provide self care: Yes (06/09/231039) Balance Sit (Static): Fair (06/09/231039) Sit (Dynamic): Fair (06/09/231039) Stand (Static): (Poor+) (06/09/231039) Stand (Dynamic): (Poor+) (06/09/231039) Dressing Upper Body: Minimal Assistance (to don gown) (06/09/231039) Lower Body: Minimal Assistance (to don sock) (06/09/231039) Equipment Equipment used in Therapy: Rolling walker (06/09/231039) Patient and or Family Goal(s): None Alarm Status Patient positioned in: Bed (06/09/231039) With: Bed alarm intact and functioning and call chaudhari in reach (06/09/231039) Treatment Provided: Evaluation Moderate Complexity 15 minutes - 65084: Patient was cooperative during treatment session. Moderate complexity evaluation performed and 3-5 activity limitations were identified, including ADL deficit and functional mobility deficit. Minimal or moderate modification of the functional task was necessary to complete the evaluation. Patient Education Education Topic: Role of OT;Plan of care goals (06/09/231039) Review of Precautions: Safety;Weight Bearing Status;Fall (06/09/231039) Method of Education: Verbalized to patient (06/09/231039) Education Provided to: Patient (06/09/231039) Response to Education: Receptive and agreeable to education (06/09/231039) Barriers to learning: Medical status (06/09/231039) Preferred learning method: Combination (06/09/231039) Method of Education: Verbal discussion and explanation provided to patient: verbalized understanding and or agreement of this information Assessment: Patient is a 72 year old female admitted on 06/07/23 being seen s/p L BKA. She was previously living at home and reports being independent for ADLs/mobility using a rollator. On exam, patient required min assist for bed mobility due to pain/weakness. She required min assist to simulate both UB/LB dressing tasks using robe/sock while edge of bed due to difficulty maintaining sitting balance. Patient would benefit from ongoing acute OT services to improve function. Please consider post-acute care services which may include home health, [place] [facility] [place], outpatient therapy or inpatientrehabilitation. The level of care will be determined in collaboration with patient, family/caregiver and care team members. AM-PAC Help From Another Person Eating Meals: None (06/09/23 104) Help From Another Person Taking Care of Personal Grooming: None (06/09/231039) Help From Another Person To Put On/Take Off Upper Body Clothing: A little (06/09/231039) Help From Another Person To Put On/Take Off Lower Body Clothing: A little (06/09/231039) Help From Another Person Toileting: A lot (06/09/231039) Help From Another Person Bathing: A lot (06/09/231039) OT AM-PAC Score: 18 (06/09/231039) OT AM-PAC t-Scale Score: 38.66 (06/09/231039) HLM (Highest Level of Mobility) Goal: Level 4 move to chair/commode (06/09/23 0900) A portion of this AM-PAC assessment not scored based on functional assessment; rather clinical decision making was utilized based on current findings and/or prior level of function. Please refer to future AM-PAC calculations of functional ability as they become available. Deficits requiring O.T. treatment needs: ADL/self- care;Balance;Endurance;Functional mobility;IADL;Safety;Upper extremity strength;Weakness (06/09/231039) Goals: Increase Strength of BUE by one grade throughout Demonstrate sitting Balance of Fair+ Demonstrate standing Balance of Fair Demonstrate self care with supervision for all UB/LB tasks Demonstrate toileting with supervision Demonstrate Bed Mobility with supervision Demonstrate Transfers with supervision Demonstrate Functional Ambulation with supervision Treatment Plan: Accuracy with Precautions, Safety, Bed mobility training, Functional Ambulation, Transfer training, Coordination Tasks, Upper extremity strengthening, Balance activities, ADL training, and Endurance Goal Time Frame:8 visits Anticipated Frequency (on eval): 1 to 3 times per week (06/09/231039) documented in this encounter Nursing Notes * Vanessa Sullivan RN - 06/14/2023 12:19 PM EDT I agree with the charting and assessment of Prince Ferguson RN * Dick Carver RN - 06/12/2023 7:33 AM EDT 0318 Patient had another small bowel movement which was noted to be loose and maroon in color with blood streaks and mucus. Med S Hospitalist made aware, no new orders given. * Dick Carver RN - 06/12/2023 12:52 AM EDT Small amount of blood noted in patient's pull up during arsenio-care. Unable to determine if blood is coming from patient anus or vagina. While talking with patient she verbalized that she usually has blood in her stool which usually occurs once per year. Provider made aware of occurrence and conversation with patient. Advise to continue to monitor the patient for further episodes. * Terrie Alcazar NA - 06/07/2023 2:25 PM EDT Post Anesthesia Care Unit Transport Note [address] [address] Dept. Carlotta Khan Transported from [facility]iOp to : [facility] Time: 1415 Care of patient transferred to: Karl DOTY Transported via: Bed Belongings with Patient: YES Pulse : 93 Temp : 98.4 BP : 115/48 Respirations : 16 Pulse Ox : 98 O2 : 1L SCDS: On but not activated/no machine * Amari Jimenez RN - 06/07/2023 1:00 PM EDT PERIOP TO IP HANDOFF COMMUNICATION NOTE [address] [address] Name: Carlotta Khan AGE: [age] year old [place] [facility] [place] Date: 06/07/2023 Attention to: Kyle Carranza RN Report from: Amari Jimenez RN Patient arriving via: Bed Time of call: 1:01 PM Phone Ext: [phone] Reason for SBAR (Situation, Background, Assessment, Recommendation) handoff: OR Sending to: AM 864 Emotional/Personal Events & Special Needs: none Prescriptions in chart: No Code Status: Full Code Safety Concerns: no safety concerns identified Allergies: Methadone, Diclofenac, Hydrocodone-acetaminophen, Januvia [sitagliptin phosphate], Metformin, Naproxen, Nitroglycerin, Penicillins, [place], and Propoxyphene PMH: Past Medical History: Diagnosis Date Asthma, allergic Benign neoplasm of colon 01/2009 3 mm tubular adenoma in sigmoid, f/u colonoscopy in 5 yrs BMI 32.0-32.9,adult Calculus of kidney spontanteous passage Cardiac arrest (HCC) 11/04/2022 history Carotid artery stenosis, asymptomatic left Carotid Stenosis, infarct w/in 8 wks 08/20/2008 Cellulitis of right foot 07/02/2019 [facility] for severe pain, cellulitis right foot Cerebrovascular Dz, 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 Pt with hx of embolic stroke. L hemiplegia Chronic ischemic heart disease Contusion of hand, right 05/21/2016 Coronary atherosclerosis of [place] coronary artery DM type 2, goal A1c below 7 1994 after being on steroids for a while Fracture of three ribs on left side 02/25/2015 left 3,4,5 Generalized anxiety disorder Generalized osteoarthritis Hidradenitis had skin grafts under both arms by Dr Burrell Hyperlipidemia LDL goal < 70 Hypoxia 02/28/2015 [place], related to hypoventilation from rib fx pain Intracerebral hemorrhage (HCC) 07/03/2008 Need for hepatitis C screening test 08/08/2014 negative Obesity, BMI not known used to weigh 280 Old myocardial infarct x 2 with stent placement OTHER LATE EFFECTS CEREBROVASCULAR DISEASE 07/03/2008 RSD upper limb left arm Scabies 06/07/2017 Treated in [place] ER. Senile osteoporosis 07/03/2018 high risk Simple or chronic serous otitis media Chronic Serous Otitis Media Spasm of muscle 11/05/2010 Stroke, acute, within 8 weeks 05/30/2008 L hemiplegia Tobacco use disorder Ulnar nerve lesion neuropathy UNSPEC. HEMIPL. AND HEMIPARESIS AFFECTING NONDOMINANT SIDE 07/03/2008 Unspecified constipation 07/03/2008 PSH: Past Surgical History: Procedure Laterality Date ANKLE-BRACHIAL INDEX (CARDIOLOGY) Bilateral 11/03/2018 left 1.0, right 0.32 ANKLE-BRACHIAL INDEX (CARDIOLOGY) Bilateral 12/29/2018 Right 0.73, left 0.9 AORTOGRAM ABDOMINAL-TECH ONLY 04/14/2022 IMAGING SUPERVISION & INTERPRETATION ABDOMINAL AO performed by Nnamdi King MD at [place] [facility] [place] APPENDECTOMY W/OTHER PROCEDURE CARDIAC ANGIOPLASTY, PERCUTANEOUS, 1 ARTERY Bilateral 11/12/2022 PTCA, CARDIAC ANGIOPLASTY, PERCUTANEOUS, 1 ARTERY performed by Patrice Jose MD at CARDIAC LABS [facility] COLONOSCOPY THRU STOMA, W/BIOPSY 01/2009 adenomatous polyp, f/u colonoscopy in 5 yrs COLONOSCOPY, DIAGNOSTIC (RECTUM) 07/13/2018 poor prep, repeat 6 mo/COLONOSCOPY FLEXIBLE PROXIMAL DIAGNOSTIC performed by Cassandra Hart MD at [facility] COLONOSCOPY, DIAGNOSTIC (RECTUM) 09/27/2018 6 mm descending tubular adenoma, performed by Cassandra Hart MD at [facility] COMPOSITE SKIN GRAFT b/l axilla, donor site b/l thighs CORONARY ANGIOGRAPHY W/LEFT HEART CATH N/A 11/10/2022 CORONARY ANGIOGRAPHY W/LEFT HEART CATH performed by Patrice Jose MD at CARDIAC LABS [facility] CT ABDOMEN/PELVIS 09/28/[address] [...] performed by Cassandra Hart MD at [facility] EGD, FLEXIBLE, DIAGNOSTIC 01/19/2019 gastric irritation on /[facility] EGD, FLEXIBLE, W/BIOPSY 09/27/2018 1 cm salmon colored mucosa suggestive of short segment [place]'s, mild erythema antrum FEM/POP ARTERY REVASC W/ANGIOPLASTY Left 04/14/2022 FEM/POP ARTERY REVASC W/ANGIOPLASTY performed by Nnamdi King MD at [place] [facility] [place] FEM/POP ARTERY REVASC W/ANGIOPLASTY Right 09/23/2022 FEM/POP ARTERY REVASC W/ANGIOPLASTY performed by Nnamdi King MD at [place] [facility] [place] ILIAC ART. REVASCULARIZATION W/ANGIOPLASTY Left 09/23/2022 ILIAC ARTERY REVASCULARIZATION W/ANGIOPLASTY performed by Nnamdi King MD at [place] [facility] [place] IOF VAS CAROTID DUPLEX, BILATERAL 12/06/2012 Right carotid artery duplex examination indicates evidence of a less than 50% stenosis of the internal carotid artery. IR ARTERIOGRAM EXTREMITY BILATERAL 04/14/2022 ANGIOGRAPHY EXTREMITY BILATERAL performed by Nnamdi King MD at [place] [facility] IR ARTERIOGRAM EXTREMITY BILATERAL N/A 09/23/2022 ANGIOGRAPHY EXTREMITY BILATERAL performed by Nnamdi King MD at [place] [facility] [place] IR STENT PLACEMENT, INITIAL ARTERY N/A 04/14/2022 NON LOWER EXTREMITY OR CAROTID STENT REVASCULARIZATION WITH RADIOLOGIC SUPERVISION AND INTERPRETATION performed by Nnamdi King MD at [place] [facility] [place] MAMMOGRAM SCREENING BILATERAL Bilateral 08/20/2014 almost entirely fat, category 1 normal MAMMOGRAM SCREENING BILATERAL Bilateral 05/12/2017 scattered fibroglandular densities category 1 normal MOBILE DXA 07/03/2018 Lumbar T -0.7, left femur T -2.9, high risk, treatment recommended NEG PRESSURE WOUND THERAPY DME </= 50 SQ CM N/A 11/04/2022 NEGATIVE PRESSURE WOUND THERAPY LESS THAN 50SQ CM performed by Nnamdi King MD at [place] [facility] [place] NEG PRESSURE WOUND THERAPY DME </= 50 SQ CM N/A 11/16/2022 NEGATIVE PRESSURE WOUND THERAPY LESS THAN 50SQ CM performed by Nnamdi King MD at [place] [facility] [place] NM HEPATOBILIARY SYSTEM WITH PHARMACOLOGIC INTERVENTION 10/18/2018 normal hepatic scan with normal GE ejection fraction PARTIAL AMPUTATION OF TOE Right 11/04/2022 AMPUTATION TOE INTERPHALANGEAL JOINT performed by Nnamdi King MD at [place] [facility] [place] PARTIAL HYSTERECTOMY PFT/BA BRONCHODILATOR N/A 03/11/2021 probably normal PFT with some airway reversibility PLACE INTRACORONARY STENT, FIRST VS [id number] REMOVE CATARACT, INSERT LENS PROSTH Left 01/27/2017 Dr Gunter REPAIR OF BLADDER NECK 1994 Dr Montesinos/needed redone due to infection SUBQ DEBRIDEMENT, FIRST 20 CM2 N/A 11/04/2022 DEBRIDEMENT SKIN AND SUBCUTANEOUS TISSUE performed by Nnamdi King MD at [place] [facility] [place] SUBQ DEBRIDEMENT, FIRST 20 CM2 N/A 11/16/2022 DEBRIDEMENT SKIN AND SUBCUTANEOUS TISSUE performed by Nnamdi King MD at [place] [facility] SYNTH BYPASS, FEM-FEM 2004 fem-fem bypass, [place] THROMBOENDARECTOMY W/PATCH,NECK INCISION [id number] right CEA, [place] THROMBOENDARECTOMY W/PATCH,NECK INCISION 08/19/2008 right redo eversion carotid endarterectomy /Dr. Bynum TOOTH ROOT REMOVAL 01/23/2016 full mouth extraction, Dr Andres TRANSLMAURI BALLOON ANGIOPLASTY OPEN/PERC IMAGE 1ST ARTERY Right 04/14/2022 ANGIOPLASTY ARTERIAL (EXCEPT LOWER EXTREMITY) performed by Nnamdi King MD at [place] [facility] US ABDOMEN COMPLETE 08/08/2018 normal VASC DUPLEX CAROTID BILAT Bilateral 08/20/2014 <50% PAIGE, 50-69% LICA stenosis, vertebrals antegrade VIDEO CAPSULE ENDOSCOPY 03/01/2019 unremarkable XR RIBS UNILATERAL W/PA CHEST MINIMUM 3 VIEWS Left 02/25/2015 nondisplaced incomplete cortical fractures posterior lateral left third, fourth and fifth ribs Isolation: Isolation: Procedure: Amputation of leg through tibia and fibula - Left Type of Anesthesia: General endotracheal anesthesia Block: femoral/sciatic IV intake: 500 mL 250 mL albumin EBL: OR: 100 mL PACU: 0 mL Urine output: OR 0 mL PACU 0 mL IUBC (Llanos): Incision location: LLE Dressing location: LLE Time of last skin assessment: post op Pressure injuries or areas of concern: none Lines: Peripheral Line Lower;Posterior;Right Arm (Active) Status Fluids infusing 06/07/23 1116 Tubing Changed Yes 06/07/23 1116 Phlebitis Scale 0 06/07/23 1116 Infiltration Scale 0 06/07/23 1116 Site Description (Other) Without redness, swelling or drainage 06/07/23 1116 Site Intervention Flushed 06/07/23 1116 Dressing Assessment Dressing clean, dry, and intact 06/07/23 1116 Dressing Intervention None required 06/07/23 1116 Number of days: Drain Other-Describe Anterior;Left;Lower;Proximal Leg (Active) Status Bulb Suction 06/07/23 1050 Suction Bulb Suction 06/07/23 1050 Site Description Not visualized, dressing intact 06/07/23 1050 Dressing Assessment Dressing clean, dry, and intact 06/07/23 1050 Number of days: 0 Peripheral Nerve Block Left Sciatic (Active) Status Capped 06/07/23 111 Site Description Without redness, swelling or drainage 06/07/23 1116 Dressing Assessment Dressing clean, dry, and intact 06/07/23 1116 Dressing Intervention None required 06/07/23 111 Number of days: 0 Vital Signs: BP: 100/44 (06/07/23 1245) Temp: 37.1 C (98.8 F) (06/07/23 1050) Pulse: 92 (06/07/23 1245) Resp: 18 (06/07/23 1245) SpO2: 95 % (06/07/23 1245) O2 flow rate: 1 L/MIN (06/07/23 1245) Glucose (Bedside): 187 (dr alondra valenzuela made aware) (06/07/23 1100) Time of last pain medication: 1133 Med: Ropivacaine Time of last antibiotic: 0923 Med: Ancef Time of last antiemetic: 1119 Med: Zofran SENIOR GROUP MANAGER: no, peripheral nerve block Drips: no Neurological: Neuro WNL: WNL - within normal limits (06/07/23 1050) Speech: Clear (06/07/23 1115) Level of Consciousness: Responds to voice (06/07/23 1115) RUE Motor Strength: 5-Active movement with full resistance (06/07/23 1115) RLE Motor Strength: 5-Active movement with full resistance (06/07/23 111) LUE Motor Strength: 5-Active movement with full resistance (06/07/23 1115) LLE Motor Strength: 4-Active movement with some resistance (06/07/23 111) Coma Score: 15 (06/07/23 1200) Respiratory: Respiratory WNL: X - Exceptions to WNL as documented below (06/07/23 1115) Cough: Non-Productive (06/07/23 1050) Depth/Rhythm: Shallow (06/07/23 1115) Dyspnea Occurance: None (06/07/23 1050) Effort: Unlabored (06/07/23 1050) Oxygen therapy/ Mechanical vent Supplemental O2 Delivery: Nasal Cannula (06/07/23 1245) O2 flow rate: 1 L/MIN (06/07/23 1245) Cardiac: Cardiovascular WNL: WNL - within normal limits (06/07/23 1115) Heart Sounds: S1;S2 (06/07/23 1050) Rhythm: NSR (06/07/23 1115) Extremities: +Sensation;Right;Left;Upper;Lower (06/07/23 1050) Pulses Right: Dorsalis Pedis +;Radial + (06/07/23 1200) Pulses Left: Radial +;Femoral + (06/07/23 1200) Capillary Refill: 2 sec (06/07/23 1050) GI: GI WNL: X - Exceptions to WNL as documented below (06/07/23 1115) Abdomen: Soft;Non-tender (06/07/23 1050) : WNL: X - Exceptions to WNL as documented below (06/07/23 1115) Urine Description: (no urine to assess) (06/07/23 111) Due to Void: 1650 Integumentary:Integumentary WNL: WNL - within normal limits (06/07/23 111) Skin Description: Warm;Dry (06/07/23 111) Skin Color: Flesh Tone (06/07/23 111) Skin Lesion: Other - Describe (see below) (06/07/23 1050) Family updated on transfer: yes Additional Assessment Information: CHALO drain to bulb suction, pt has ropivacaine infusion * Amari Jimenez RN - 06/07/2023 12:30 PM EDT Dual Licensed Skin Assessment completed by Amari Francisco RN and Amie Stahl RN. The patient is/has a N/A Skin Breakdown (includes non blanchable erythema): Yes - Surgical/Procedural changes only. * Venessa Everett RN - 06/07/2023 8:50 AM EDT Dual Licensed Skin Assessment completed by Venessa Everett RN and Damaris Thomas RN. The patient is/has a N/A Skin Breakdown (includes non blanchable erythema): Yes. Wound Type: Other, location chronic wound L toes - eschar Wound Ostomy Nurse Notified: No - wound ostomy not needed at this time Nursing interventions: OR today for amputation * Abdias Washburn RN - 06/03/2023 7:48 PM EDT NO ANESTHESIA EVAL REQUESTED PER CASE DOCUMENTATION. PREOP PATIENT INFORMATION AND EDUCATION: MEDICATION INSTRUCTIONS: The day of surgery/procedure, you may TAKE the following medications with a sip of water up to 2 hours prior to your arrival time: Please follow the pre-operative instructions provided by your vascular surgeon. If you have any questions regarding these instructions please contact your surgeon's office at [phone]. Per telephone encounter on 06/02/23: -NPO after midnight. -Holding Plavix starting now. -Holding short acting insulin morning of surgery -Taking half the normal dose of her long acting insulin the night before surgery. -Take all other normal morning medications, to include ASA, with small sip of water prior to leaving home morning of surgery. Nothing to eat or drink by mouth after midnight the night before surgery including no food, no gum/hard candy, coffee, tea, other drink, or tobacco product. 24 hours prior to surgery/procedure DO NOT [...] by your surgical service take as directed. Infant/pediatric patients who currently drink breast milk, infant [...] to 4 hours prior to arrival time formula Up to 6 hours prior to [...] deodorants after bathing. No hairspray, or nail togolese on fingers or toes. Day of surgery/procedure [...] name and bring to hospital. -An escort emergency vehicle driver is required if you are being [...] taxi home, you must have your responsible democrat accompany you in the taxi ride home [...] is important to make arrangements for a emergency vehicle driver to take you home. Please be aware our visitation policies are subject to change Professionals, attendants, caregivers or family members are allowable visitors for patients with intellectual, developmental or cognitive disabilities, communication barriers or behavioral concerns. Because patients' and families' needs vary, they will be taken into account when applying visitation restrictions. [facility]: Contact # [phone] Directions to Surgical Suite in from the Amy Entrance The Surgical [facility]ing [facility]. Enter through Main Lobby Entrance and the Waiting Room is directly in front of you. Proceed to check in and give them your name. Directions to Surgical Suite from the East Entrance Enter the East entrance and follow the hallway to the J elevator. Take the J elevator up to Level 1. Continue down the long hallway to the main Amy Lobby. The Surgical Waiting Room will be on your Right. Proceed to check in and give them your Name. Directions to Surgical Suite from the Parking Garage Enter the [facility] lobby and proceed down the galvan to the left. At the end of the galvan, turn right. Continue down the long hallway to the main Amy Lobby. The Surgical Waiting Room will be on your Right. Proceed to check in and give them your Name. THANK YOU FOR CHOOSING [facility]! Pre-operative chart review completed-instructions provided based on current medication list in [facility] Presurgery instructions sent to patient via Nepris message. documented in this encounter OR Notes * OR Surgeon - Nnamdi King MD - 06/07/2023 10:42 AM EDT [facility] [address] [address] OPERATIVE REPORT Name: Carlotta Khan Date: 06/07/2023 Time: 10:42 AM Location: [place] [facility] Service: Vascular Surgery Date of Operation: 06/07/2023 Pre-op Diagnosis: Gangrene left lower extremity. Post-op Diagnosis: Same. Surgeon: Nnamdi King MD Assistants: Teja Young MD Anesthesia: General endotracheal anesthesia Nerve block Operation: left below-knee amputation. Findings: Viable tissue at amputation level with no evidence of infection. Specimen and Disposition: None Estimated Blood Loss: 100 ml Fluids: 500 ml crystalloid and 250ml albumin Urine output: None Drains/Implants: 7 Ceva-Qkvjcln-Nroxe drain Complications: None Postoperative Condition: Stable Indications and History: The patient is a 72 year old female who presents for a below-knee amputation. Description of Operation: The patient was seen in the Holding Room and the site of surgery properly noted and marked. The patient was identified as Carlotta Khan, and the procedure verified. In the operating room a Time Outwas held and the above information confirmed. The patient was given anesthesia and a Llanos catheterwas placed. The left leg was prepped and draped in the usual sterile fashion. A classical below-knee amputation was performed. The tibia was transected with the oscillating saw and the anterior aspect of the bone was beveled. The fibula was transected proximal to this level with a bone cutter. There was Viable tissue at amputation level. The tibial vessels were individually transected and ligated. The tibial nerve was sharply divided proximally. The muscle was viable. The posterior skin flap was created and the specimen removed. This was a complete amputation at the proximal calf level. The wound was irrigated with antibiotic solution. Hemostasis was ensured. The fascia and subcutaneous tissues were reapproximated with interrupted Vicryl sutures. A 7 flat Marco-Hobbs drain was left in the wound and brought out through a separate opening laterally. Skin closure was performed withnylon sutures in a vertical mattress fashion. Sterile dressings consisted of Xeroform, fluffy Kerlix and an Mike wrap. Ioban was used to hold the dressing in place and to maintain stability. Postoperative pain management per Anesthesia for evaluation and placement of regional anesthesia toreduce the need for opioid pain medication. Attestation: I was present and scrubbed for the entire procedure documented in this encounter Miscellaneous Notes * Ancillary Progress Note - Jacqueline Santacruz COTA/L - 06/14/2023 11:07 AM EDT PROGRESS NOTE - Occupational Therapy [facility] [address] Name: Carlotta Khan Location: [facility] H871/A Date: 06/14/2023 Time: 11:07 AM Carlotta Khan is a 72 year old female. Diagnosis: s/p L BKA (06/14/23 110) Status of treatment: Patient declined services (06/14/23 110) Attempted to see patient for OT treatment session. Patient declined at this time secondary to leaving today and just wanting to sleep. Patient reported moving around earlier and now having pain in L LE. Will continue to follow if patient is not discharged. * Ancillary Progress Note - Sivco, Sheila, MH TEACHER - 06/14/2023 9:13 AM EDT CARE MANAGEMENT - ADULT DISCHARGE NOTE [facility] [address] Name: Carlotta Khan Location: [facility] H871/A Date: 06/14/2023 Time: 9:13 AM The following coordination of care and discharge plan has been coordinated with the care team, patient, family and/or caregiver according to the patients needs and preferences. Discharge Discharge Second Notice Important Message from Medicare delivered: Yes (06/14/23911) Date Delivered: 06/12/23 (06/14/23911) Was Caregiver/Family/Facility contacted regarding discharge: Yes (06/14/23911) Discharge Transportation: Family/Friends drive (06/14/23911) Date of scheduled discharge transportation: 06/14/23 (06/14/23911) Time of scheduled discharge transportation: 1300 (06/14/23911) Final Discharge Plan (Complete only at time of Discharge): IP Rehab (06/14/23912) Destination - Admitted Since 06/07/2023 Service Provider Selected Services Address Phone Fax Patient Preferred Last Updated [facility] [address] [place] [phone] -- Sheila Hu MSW 06/14/2023 0913 Narrative: Per service, Pt ready for DC today (06/13). Pt going to [facility]. Family is providing transportation around 1 pm. No other skilled needs identified at this time. Please contact CM with any changes to DC plans. * Care Plan - Ginger Rausch RN - 06/13/2023 10:45 PM EDT Clinical Goal(s): patient will remain free of injuries (06/13/232010) Possible barriers to meeting goal(s)/advancing plan of care: hospitalization, admitting diagnosis Stability of the patient: Moderately stable - low risk of patient condition declining or worsening Summary regarding today's goal(s): Met: Patient remained free of injuries Recommendations: hourly rounds, call chaudhari within reach, fall precautions * Ancillary Progress Note - Florence Osorio OSA - 06/13/2023 3:53 PM EDT [facility] Authorization# [id number] was received today at 3:51 PM for acute inpatient rehab level of care for this patient. CM made aware of the above authorization at 3:52 PM. * Ancillary Progress Note - Sheila Hu MSW - 06/13/2023 2:58 PM EDT POST ACUTE CARE CARE MANAGEMENT [facility] [address] Name: Carlotta Khan Location: [facility] H871/A Date: 06/13/2023 Time: 2:58 PM Post-Acute Care Patient General Information Living Quarters: House (06/08/23 1406) Location of bathroom(s): All floors or Single story dwelling (06/08/23 1406) Do you have serious difficulty walking or climbing stairs? (5 years old or older): Yes (06/07/23 1148) History of falling: No (06/13/23 0800) What was your living situation prior to admission/observation?: With Child (06/08/23 1406) Do you have any children, pets, or other dependents that you are currently caring for?: No (06/08/23 140) AM-PAC Score With Stairs : 15 (06/13/23 0800) Post-Acute Care with AM-PAC < 17.99 Rehab diagnosis: Amputation;Access IRF (pain management - IV pain meds able to be given at IRF) (06/13/23 1458) Inpatient Rehab Facility (IRF) Guidelines (1-8): Requires face to face interaction with a rehabilitative physician at a minimum of 3 times per week;Requires access to a rehabilitative RN 04/10;Able toparticipate in intensive therapy program consisting of treatment at a minimum of 3 hours per day 5 days per week;Indicate therapy modalities;Able to participate in rehabilitative therapy program including realistic goals with predictable timeframes for completion of goals;Rehabilitation intensity and frequency makes the services impracticable to obtain in less intense setting;Requires coordination care conference at least 1 time/week;Frequent assessment of progression toward goals (06/13/231457) Therapy Modalities: Physical Therapy;Occupational Therapy (06/13/231457) Inpatient Rehab Facility (IRF) Guidelines (9-12): Assistance with resolution of issues impeding rehabilitative progress;Established rehabilitative progress;Frequent monitoring and or revision of treatment plan;Frequent re- assessment of established rehabilitative progress (06/13/231457) Intermediate Facility (SNF) Guidelines For Medical Approval (must select both): Care must be provided by an RN/PROCUREMENT SERVICES MANAGER and cannot be managed at home;Care requires observation, monitoring and evaluation of effectiveness on a daily basis (06/09/231311) SNF guidelines for Rehab Approval (All selections required): Able to participate for at least 1 hour of therapy per day;One or more therapy modalities (PT/OT/ST) at least 5 times a week;Requries Training (select at least one);Services required only able to be provided in an inpatient setting;Requires intense care planning with realistic goals as identified by 1 of the following;Frequent re-assessment of established rehabilitative progress;Established rehabilitative progress;Frequent monitoring and or revision of treatment plan (06/09/231311) Therapy Modalities: Physical Therapy;Occupational Therapy (06/09/231311) Intense Care Plan Goals: Completion of home evaluation, assistance with home modifications;Coordination of multiple community services;Assistance with application for community services;Family medication and/or transfer training (06/09/231311) SNF Required Training: Gait training;ADL training, with or without adaptive equipment;Transfer Training (06/09/231311) Approved for Intermediate Rehab: Approved for Intermediate Rehab (06/09/231311) Meets criteria for Inpatient Rehab Facility (IRF): Patient meets criteria for IRF (06/13/231457) SW spoke to Jeanie at [facility], stated would be able to accept Pt for tomorrow and also provide IV pain meds for Pt to assist with pain management while completing therapy as well as work on weaning pain meds down. Pt independent [employer]. [facility] auth sent through [facility]. [facility] Auth# [id number] SW spoke to Pt, stated been approved for IRF. Asked about transportation. Pt stated feels family may be able to transport and thinks can sit in a car. SW to confirm if family able to transport. * Ancillary Progress Note - Sheila Hu MSW - 06/13/2023 11:10 AM EDT CARE MANAGEMENT - ADULT TRANSITION NOTE [facility] [place] [address] Name: Carlotta Khan Location[place] [facility] [place] [facility]/A Date: 06/13/2023 Time: 11:11 AM Risk Stratification Risk Stratification Psycho Social / Medical Concerns Identified: Multiple Comorbidities;Adjustment to illness/injury (06/08/23 1406) Accessed [employer] to connect patients to social care resources: No (06/08/23 1406) Readmission Risk Score: 17.42 (06/13/23 0800) AM-PAC Score With Stairs : 15 (06/13/23 0800) Caregiver Information Patient Contacts Name Relation Home Work Mobile Diamond Braxton Adult Child [phone] Anuradha Santiago Adult Child [phone] Aba Braxton Other - (no specific identity) [phone] Transition of Care Checklist Transition of Care Checklist (aka Readmission Risk Score) Discharge Disposition: Post-Acute (06/13/23 1112) Narrative: Pt was discussed with service this AM. Pt is not medically ready for DC at this time dueto still having pain. SW reached out to [facility] and [facility] to follow up on referrals. SW LM for both facilities to follow up. 3016 - Pt requested to speak to SW. SW went to speak to Pt at bedside and Pt called Pt's daughter, Diamond, while SW in the room. Requested additional referral to [facility] and [facility] in [place]. SW asked RETIREMENT ADMINISTRATOR to fax referral to [place] at [phone] attn: Riki due to not being in [facility]. SW will continue to follow for evolving needs and support. Anticipated Transportation at Discharge: BLS vs WC Patient/Family Expectations: SNF . Transition Planning Transition Planning Transition Plan/Considerations: Needs identified - Discharge planning services explained to patientfamily / caregiver - Choices offered (06/13/231111) Transition services explained and patient/family/caregiver agreeable: Intermediate (06/13/231111) Insurance Considerations: Precertification needed for Post-Acute Care;Prior authorization for medication;Therapy documentation needed for precert request (06/13/231111) Additional Considerations:N/A Care Management will continue to monitor and assist with discharge planning needs * Care Plan - Ginger Rausch RN - 06/12/2023 9:47 PM EDT Problem: Actual & Potential for Falls Goal: Patient will remain free of falls. Outcome: Progressing Clinical Goal(s): Patient will remain free of falls this shift. (06/12/231999) Possible barriers to meeting goal(s)/advancing plan of care: hospitalization, admitting diagnosis Stability of the patient: Moderately stable - low risk of patient condition declining or worsening Summary regarding today's goal(s): Met: Patient remained free of falls this shift. Recommendations: hourly round, call chaudhari within reach, fall precautions * Ancillary Progress Note - Jacqueline Santacruz COTA/L - 06/12/2023 12:34 PM EDT PROGRESS NOTE - Occupational Therapy [facility] [place] [address] Name: Carlotta Khan Location: [facility] [place] [facility]/A Date: 06/12/2023 Time: 12:34 PM Carlotta Khan is a 72 year old female. Patient Status: Inpatient Insurance: Payor: [facility]: [facility] GUILLAUME SECURE 1 AND 3 MC-ND Product Type: *No Product type* Payor: HUMANA Plan: [employer] Product Type: *No Product type* Payor: [employer] PA Plan: [employer] Me [facility] Product Type: HMO Patient Seen: at bedside, nursing cleared patient for therapy Patient Identified By: Name, ID Band and Date Diagnosis: s/p L BKA (06/12/231014) Status of treatment: Treatment completed (06/12/231014) Orders: OT evaluation and treatment;OT OOB (06/12/231014) Weight Bearing Status: Non-weight bearing;LLE (06/12/231014) Precautions: Alarms;Falls;Safety (06/12/231014) Total Treatment Time: 40 (06/12/231014) Subjective: patient agreeable to OT session Pain: Patient has complaints of pain. Pain located L LE. Did not rate. Nurse aware Observations Consciousness: Alert (06/12/231014) Orientation: Oriented times 4 (06/12/231014) Psychosocial: Patient can communicate basic needs;Patient can converse in a social setting (06/12/231014) Sitting posture: Forward head;Rounded shoulders (06/12/231014) Standing posture: Forward head;Rounded shoulders (06/12/231014) Safety awareness: The Patient verbalizes insight of current deficits.;The Patient demonstrates carryover of insight during functional tasks. (06/12/231014) Other Findings Light touch sensation: LUE;RUE;Intact (06/09/23 1040) Coordination: LUE;RUE;Intact (06/09/23 104) Current Functional Status: Activities of Daily Living: Self Care Able to provide self care: Yes (06/09/23 1040) Grooming: Supervision (Please comment) (06/12/231014) Toileting: Dependent (06/12/231014) Dressing Upper Body: Minimal Assistance (to don gown) (06/09/23 1040) Lower Body: Dependent (06/12/231014) Functional Ambulation Assistive Device: No device (06/12/231014) Distance in feet:: 0 (06/12/231014) Bed Mobility Supine-Sit: Supervision (Please comment) (06/12/231014) Sit-Supine: Minimal Assistance (06/12/231014) OT Transfers Sit-Stand: Minimal Assistance (x2) (06/12/231014) Stand-Sit: Minimal Assistance (x2) (06/12/231014) Bed-Chair: Minimal Assistance (x2 pivot to bedside commode) (06/12/231014) Toilet: Minimal Assistance (x2) (06/12/231014) Balance Sit (Static): Fair (06/12/231014) Sit (Dynamic): Fair (06/12/231014) Stand (Static): Poor (06/12/231014) Stand (Dynamic): Poor (06/12/231014) Patient Education Education Topic: Role of OT;Plan of care goals (06/12/231014) Review of Precautions: Safety;Weight Bearing Status;Fall (06/12/231014) Review of Exercises: Pt Demonstrated Exercise;Verbal Exercises Provided (06/12/231014) Method of Education: Verbalized to patient (06/12/231014) Education Provided to: Patient (06/12/231014) Response to Education: Receptive and agreeable to education (06/12/231014) Barriers to learning: Medical status (06/12/231014) Preferred learning method: Combination (06/12/231014) Alarm Status Patient positioned in: Bed (06/12/231014) With: Bed alarm intact and functioning and call chaudhari in reach (06/12/231014) Treatment Provided: Self Group Home Management Trainin minutes Therapeutic Activity: 10 minutes Therapeutic Procedure: 15 minutes Upper Extremity exercise Demonstrate Exercises: LUE;RUE;Shoulder;Elbow;Wrist;2 sets of 10;Flexion;Extension;Scapular protraction/retraction;Supination/pronation (06/12/231014) Peformed in: Seated (06/12/231014) Deficits requiring O.T. treatment needs: ADL/self- care;Balance;Endurance;Functional mobility;IADL;Safety;Upper extremity strength;Weakness (06/09/23 1040) Assessment: patient supine in bed upon entering room. Provided patient with written education on amputee support group and to decrease knee flexion when at all possible. Bed mobility supine to sit supervision performed x2, minimal assistance sit to supine performed x2. Patient able to maintain sitting balance on the edge of bed. Minimal assistance of two for functional transfer from bed, reclinerand bedside commode. Functional stand pivot transfer with minimal assistance of two. Performed UE strength and endurance exercises in all available plans. Supervision for grooming task. Supervision for toilet hygiene and dependent for clothing management. Patient requesting to return to bed secondary to pain. Please consider post-acute care services which may include home health, [place] [facility] [place],outpatient therapy or inpatient rehabilitation. The level of care will be determined in collaboration with patient, family/caregiver and care team members. Would benefit from continued OT to maximizefunctional capabilities. Plan: Continue to follow as per plan. Anticipated Frequency (on eval): 1 to 3 times per week (06/12/23 1015) Equipment Equipment used in Therapy: Bedside commode (06/12/23 1015) AM-PAC Help From Another Person Eating Meals: None (06/12/23 1015) Help From Another Person Taking Care of Personal Grooming: None (06/12/23 1015) Help From Another Person To Put On/Take Off Upper Body Clothing: A little (06/09/23 1040) Help From Another Person To Put On/Take Off Lower Body Clothing: Total (06/12/23 1015) Help From Another Person Toileting: Total (06/12/23 1015) Help From Another Person Bathing: A lot (06/09/23 1040) OT AM-PAC Score: 18 (06/09/23 1040) OT AM-PAC t-Scale Score: 38.66 (06/09/23 1040) HLM (Highest Level of Mobility) Goal: Level 4 move to chair/commode (06/12/23 1058) A portion of this AM-PAC assessment not scored based on functional assessment ; rather clinical decision making utilized based on current findings and/or prior level of function. Please refer to future AM-PAC calculations of functional ability as they become available. * Ancillary Progress Note - Mojgan Monique PTA - 06/12/2023 10:58 AM EDT PROGRESS NOTE - Physical Therapy [facility] [facility] [address] Name: Carlotta Khan Location: [facility] [place] [facility] Date: 06/12/2023 Time: 10:58 PM Carlotta Khan is a/an 72 year old female. Patient Status: Inpatient Insurance: Payor: [employer] Plan: [employer] SECURE 1 AND 3 MC-ND Product Type: *No Product type* Payor: HUMANA Plan: [employer] Product Type: *No Product type* Payor: [employer] PA Plan: [employer] [facility] Product Type: HMO Patient Seen: at bedside, nursing cleared patient for therapy Patient Identified By: Name, ID Band and Date Diagnosis: s/p L BKA (06/12/231057) Status of treatment: Treatment completed (06/12/231057) Orders: PT evaluation and treatment;OOB (06/12/231057) Weight Bearing Status: Non-weight bearing;LLE (06/12/231057) Precautions: Alarms;Falls;Safety (06/12/231057) Total Treatment Time--free text: 40 (06/12/231057) Subjective: patient agreeable Pain: Patient has complaints of pain. Pain located L LE. P.T. Bed Mobility Supine-Sit: Minimal Assistance (06/12/231057) Sit-Supine: Minimal Assistance (06/12/231057) Transfers Sit-Stand: Minimal Assistance (x2) (06/12/231057) Stand-Sit: Minimal Assistance (x2) (06/12/231057) W/C-Bed/Mat: Minimal Assistance (x2; stand pivot; heel toe) (06/12/231057) Balance Sit (Static): Fair (06/12/231057) Sit (Dynamic): Fair (06/12/231057) Stand (Static): Poor (06/12/231057) Stand (Dynamic): Poor (06/12/231057) Patient and or Family Goal(s): to get well Topic of Education: Safety with mobility Extremity Exercise Supine: Hip;Knee;Ankle;Isometrics (06/12/231057) Hip : Bilateral LE;Adduction;Abduction;Flexion;1 set of 10 (06/12/231057) Knee : Bilateral LE;Heel slide;1 set of 10 (06/12/231057) Ankle: Right;Plantar flexion;Dorsiflexion;1 set of 10 (06/12/231057) Isometrics: Left;Quad sets (06/12/231057) Method of Education: Verbal discussion and explanation provided to patient: verbalized understanding and or agreement of this information Treatment Provided: Therapeutic Activities 23 minutes: bed mobility training transfer training Therapeutic Exercises: 17 minutes Alarm Status Patient positioned in: Bed (06/12/231057) With: Call chaudhari in reach (no alarm upon arrival; Left with RN) (06/12/231057) Patient Education Review of Precautions: Safety;Fall;Weight Bearing Status (06/12/231057) Safety Awareness: Patient verbalizes insight of current deficits;Patient demonstrates carryover of insight during functional tasks;Patient can communicate basic needs (06/12/231057) Assessment: Upon arrival patient supine in bed. Patient was educated on the importance of not placing a pillow under the knee joint to avoid flexion. Patient performed a supine to sit/sit to supine transfer x2 requiring minimal assistance. Once seated edge of bed patient had complaints of dizzinessthat subsided with a seated rest break. Patient performed a sit to stand/stand to sit transfer x5 requiring minimal assistance x2 for bilateral support. Patient performed a stand pivot transfer moving heel toe to various surfaces requiring minimal assistance x2. Once seated in the chair patient hadcomplaints of pain in the L LE. Patient performed therapeutic exercises to increase strength and jakub ntain joint integrity requiring rest breaks in between sets. Once back in bed patient had complaints of nausea, RN made aware. Please consider post-acute care services which may include home health, [place] [facility] [place], outpatienttherapy or inpatient rehabilitation. The level of care will be determined in collaboration with patient, family/caregiver and care team members. Deficits requiring P.T. treatment needs: Safety;Mobility;Balance;Weakness;Endurance;Lower extremitystrength (06/12/231057) Plan: Continue with current treatment plan established on evaluation. AM PAC Score with Stairs: 14 A portion of this AM-PAC assessment not scored based on functional assessment; rather clinical decision making utilized based on current findings and/or prior level of function. Please refer to future AM-PAC calculations of functional ability as they become available. * Care Plan - Dick Carver RN - 06/12/2023 4:30 AM EDT Clinical Goal(s): Pt will be free from falls/injuries for this shift (06/11/23 1900) Possible barriers to meeting goal(s)/advancing plan of care: /weakness/worsening in condition Stability of the patient: Moderately stable - low risk of patient condition declining or worsening Summary regarding today's goal(s): Met: Pt remained free from falls/injuries for this shift Recommendations: To maintain all fall/safety protocol * Diagnostic Clarification - Ivelisse Zuluaga MD - 06/11/2023 5:58 PM EDT The patient has been diagnosed with acute post-op blood loss anemia. * Care Plan - Terrie Rosado RN - 06/11/2023 3:48 AM EDT Clinical Goal(s): Pt will have adequate pain control throughout shift (06/10/23 2300) Possible barriers to meeting goal(s)/advancing plan of care: pain from recent L BKA Stability of the patient: Moderately stable - low risk of patient condition declining or worsening Summary regarding today's goal(s): Met: met Recommendations: continue to assess pain and treat as necessary Problem: Decreased Cardiac Output Goal: Patient will have improved cardiac output. Outcome: Progressing Problem: Alteration in Fluid Balance Goal: Patient will achieve & maintain optimal fluid balance. Outcome: Progressing Problem: Ineffective Breathing Pattern Goal: Patient will achieve & maintain effective breathing pattern. Outcome: Progressing Problem: Activity Intolerance & Impaired Mobility Goal: Patient will maintain optimal mobility & activity level. Outcome: Progressing Problem: Knowledge Deficit Goal: Patient & caregiver will demonstrate understanding. Outcome: Progressing Problem: Pain & Impaired Comfort Goal: Patient's pain & discomfort is manageable. Outcome: Progressing Problem: Safety & Risk for Injury Goal: Patient will remain free from injury. Outcome: Progressing Problem: Daily Care & Potential Self-Care Deficit Goal: Patient's daily care needs are met. Outcome: Progressing Problem: Risk for Impaired Physical Mobility Goal: Patient will maintain optimal mobility level. Outcome: Progressing Problem: Knowledge Deficit Goal: Patient & caregiver will demonstrate understanding. Outcome: Progressing Problem: Discharge Barriers Goal: Patient's discharge needs are met. Outcome: Progressing Problem: Alteration in Health Maintenance Goal: Patient will maintain management & treatment regimen. Outcome: Progressing Problem: Risk for Impaired Skin Integrity Goal: Patient will maintain & improve skin integrity. Outcome: Progressing Problem: Risk for Fluid & Electrolyte Imbalance Goal: Patient will achieve & maintain fluid & electrolyte balance. Outcome: Progressing Problem: Potential for Alteration in Nutrition Goal: Patient will maintain adequate nutritional intake. Outcome: Progressing Problem: Risk for Infection Goal: Patient will remain free from infection. Outcome: Progressing Problem: Actual & Potential for Impaired Skin Integrity Goal: Patient will maintain skin integrity. Outcome: Progressing Goal: Patient will maintain adequate nutritional intake. Outcome: Progressing Problem: Actual & Potential for Falls Goal: Patient will remain free of falls. Outcome: Progressing * Progress Notes - Post-Op Global - Harrison Dodd MD - 06/10/2023 6:49 AM EDT PROGRESS NOTE - Vascular Surgery [facility] [place] [address] Name: Carlotta Khan Location: [facility] [place] [facility] Date: 06/10/2023 Time: 6:51 AM DIAGNOSIS: Gangrene left lower extremity PROCEDURE: left below-knee amputation DATE OF SURGERY: 06/07/2023 SUBJECTIVE: NAEON. AF, VSS on RA. Patient is resting comfortably and feeling overall well this morning. Her pain is well controlled with PO pain medication. She is tolerating a diet without issue. OBJECTIVE: Most Recent Vital Signs: BP: 98 mmHg/58 mmHg (06/10/23249) Pulse: 73 (06/10/23249) Temp: 36.83 C (06/10/23249) Temp Summary: Temp Min: 35.8 C (96.5 F) Max: 36.8 C (98.3 F) SpO2: 96 % (06/10/23249) O2 flow rate: 2 L/MIN (06/10/23249) Supplemental O2 Delivery: Nasal Cannula (06/10/23249) Vital Signs Last 24 Hours: Systolic BP: Most Recent Systolic BP Av mmHg Min: 98 mmHg Max: 141 mmHg Temperature: Most Recent Temperature Av.4 C Min: 35.83 C Max: 36.83 C Pulse: Pulse Av.3 Min: 73 Max: 87 Respirations: Resp Av.8 Min: 18 Max: 20 SpO2: SpO2 Av.2 % Min: 90 % Max: 96 % Intake and Output Last 24 Hours: Intake/Output Summary (Last 24 hours) at 06/10/2023 0651 Last data filed at 06/10/2023 0051 Gross per 24 hour Intake 240 ml Output 1050 ml Net -810 ml Physical Exam: Constitutional: alert, no acute distress HEENT: normocephalic, atraumatic, conjunctiva non-injected, sclera white Neck: supple, trachea midline Lungs: normal respiratory effort Heart: regular rate & rhythm Abdomen: soft, non-distended Neuro: alert, motor & sensation grossly intact Skin: no obvious rashes or significant lesions Extremities: left lower extremity BKA stump dressing is C/D/I without saturation, nontender; dressing changed this morning which patient tolerated relatively well - incision C/D/I with nylon's in place without swelling or ecchymosis - covered in Adaptic, 4x4 gauze, Kerlix wrap, MIKE wrap LABS: Lab results within last 7 days (see chart for full results) Units 06/10/23 0547 06/09/23 0758 06/08/23 0536 06/07/23 0843 WBC K/uL 11.21* 14.20* 12.76* 12.54* HGB g/dL 11.3* 12.0 11.4* 14.0 PLT K/uL 222 230 246 300 Lab results within last 7 days (see chart for full results) Units 06/09/23 0758 06/08/23 0536 06/07/23 0843 Sodium mmol/L 132* 139 135 Potassium mmol/L 4.9 4.6 4.6 Chloride mmol/L 95* 102 100 CO2 mmol/L 29 28 26 BUN mg/dL 13 14 17 Creatinine mg/dL 0.7 0.8 0.8 Glucose mg/dL 184* 100 168* Calcium mg/dL 10.0 9.6 10.5* Magnesium mg/dL -- 1.9 -- Phosphorus mg/dL -- 3.6 -- Lab results within last 7 days (see chart for full results) Units 06/08/23 0536 Protein g/dL 6.3 Bilirubin, Total mg/dL 0.6 Alkaline Phosphatase U/L 93 AST U/L 55* ALT U/L 16 IMAGING: none postop IMPRESSION: Carlotta Khan is a 72 year old female s/p left BKA on 06/07/23. PLAN: - ASA 81mg and Plavix 75mg daily - LLE BKA dressing to be changed daily by nursing - Encourage ambulation and OOB as tolerated - Vascular surgery will sign off at this time. Please reach out with any questions or concerns - Rest of care per primary team Patient was seen and will be discussed with the attending physician. Harrison Dodd MD PGY2 06/10/2023 6:52 AM Associated attestation - Nnamdi King MD - 06/10/2023 8:39 AM EDT I saw and evaluated the patient today. I have reviewed the trainee note and agree. Amputation site looks great Will see again in one month for suture removal Please call with any questions Thanks * Care Plan - Tawny Wright, LALITHA - 06/10/2023 1:08 AM EDT Clinical Goal(s): Pt will remain safe this shift (06/09/23 0700) Possible barriers to meeting goal(s)/advancing plan of care: recent L BKA Stability of the patient: Moderately stable - low risk of patient condition declining or worsening Summary regarding today's goal(s): Met: pt had no injuries Recommendations: continue hourly rounding, follow fall precautions, reinforce call chaudhari use, encourage pt to ring call chaudhari prior to getting oob. * Ancillary Progress Note - Debbi Davis OSA - 06/09/2023 3:50 PM EDT Per KINDRA Hu "please send a SNF referral attn to Kassandra at [facility] fax - [phone] on Carlotta Khan in [facility]." That has been faxed. [place] [address] Email: [email or web address] Mail Code [email or web address] * Ancillary Progress Note - Sheila Hu MSW - 06/09/2023 1:12 PM EDT POST ACUTE CARE CARE MANAGEMENT [address] [address] Name: Carlotta Khan [facility]/ Date: 06/09/2023 Time: 1:13 PM Post-Acute Care Patient General Information Living Quarters: House (06/08/23 140) Location of bathroom(s): All floors or Single story dwelling (06/08/23 140) Do you have serious difficulty walking or climbing stairs? (5 years old or older): Yes (06/07/23 1148) History of falling: No (06/09/23 09) What was your living situation prior to admission/observation?: With Child (06/08/23 140) Do you have any children, pets, or other dependents that you are currently caring for?: No (06/08/231405) AM-PAC Score With Stairs : 14 (06/09/23 0900) Post-Acute Care with AM-PAC < 17.99 Rehab diagnosis: Does not meet criteria (06/09/231311) Intermediate Facility (SNF) Guidelines For Medical Approval (must select both): Care must be provided by an RN/PROCUREMENT SERVICES MANAGER and cannot be managed at home;Care requires observation, monitoring and evaluation of effectiveness on a daily basis (06/09/231311) SNF guidelines for Rehab Approval (All selections required): Able to participate for at least 1 hour of therapy per day;One or more therapy modalities (PT/OT/ST) at least 5 times a week;Requries Training (select at least one);Services required only able to be provided in an inpatient setting;Requires intense care planning with realistic goals as identified by 1 of the following;Frequent re-assessment of established rehabilitative progress;Established rehabilitative progress;Frequent monitoring and or revision of treatment plan (06/09/231311) Therapy Modalities: Physical Therapy;Occupational Therapy (06/09/231311) Intense Care Plan Goals: Completion of home evaluation, assistance with home modifications;Coordination of multiple community services;Assistance with application for community services;Family medication and/or transfer training (06/09/231311) SNF Required Training: Gait training;ADL training, with or without adaptive equipment;Transfer Training (06/09/231311) Approved for Intermediate Rehab: Approved for Intermediate Rehab (06/09/231311) Pt was discussed during IDT this AM. Pt is not medically ready for DC today. Pt to have first dressing change completed with Vascular tomorrow. Pt still has a nerve block in at this time. Referrals made to [facility] and [facility]. BRITTNEE called to follow up on referrals BRITTNEE called and LM for admissions at [facility]. BRITTNEE called and LM for admissions at [facility]. 328 - BRITTNEE received a call from Kassandra at [facility], stated needs referral faxed to [phone]. BRITTNEE reached out to [facility] to fax referral * Progress Notes - Post-Op Global - Harrison Dodd MD - 06/09/2023 7:30 AM EDT PROGRESS NOTE - Vascular Surgery [address] [address] Name: Carlotta Khan [place] [facility] H1/A Date: 06/09/2023 Time: 7:30 AM DIAGNOSIS: Gangrene left lower extremity PROCEDURE: left below-knee amputation DATE OF SURGERY: 06/07/2023 SUBJECTIVE: NAEON. AF, VSS on RA. Patient is resting comfortably and feeling overall well this morning. Her pain is well controlled with PO pain medication. She is tolerating a diet without issue. OBJECTIVE: Most Recent Vital Signs: BP: 148 mmHg/75 mmHg (06/09/23302) Pulse: 89 (06/09/23302) Temp: 36.22 C (06/09/23302) Temp Summary: Temp Min: 36.2 C (97.2 F) Max: 37.2 C (98.9 F) SpO2: 97 % (06/09/23302) O2 flow rate: 2 L/MIN (06/09/23302) Supplemental O2 Delivery: Nasal Cannula (06/09/23302) Vital Signs Last 24 Hours: Systolic BP: Most Recent Systolic BP Av.2 mmHg Min: 95 mmHg Max: 155 mmHg Temperature: Most Recent Temperature Av.7 C Min: 36.22 C Max: 37.17 C Pulse: Pulse Av.3 Min: 85 Max: 95 Respirations: Resp Av Min: 20 Max: 22 SpO2: SpO2 Av.8 % Min: 92 % Max: 98 % Intake and Output Last 24 Hours: Intake/Output Summary (Last 24 hours) at 06/09/2023 0730 Last data filed at 06/08/2023 1754 Gross per 24 hour Intake 360 ml Output -- Net 360 ml Physical Exam: Constitutional: alert, no acute distress HEENT: normocephalic, atraumatic, conjunctiva non-injected, sclera white Neck: supple, trachea midline Lungs: normal respiratory effort Heart: regular rate & rhythm Abdomen: soft, non-distended Neuro: alert, motor & sensation grossly intact Skin: no obvious rashes or significant lesions Extremities: left lower extremity BKA stump dressing is C/D/I without saturation, nontender LABS: Lab results within last 7 days (see chart for full results) Units 06/08/23 0536 06/07/23 0843 WBC K/uL 12.76* 12.54* HGB g/dL 11.4* 14.0 PLT K/uL 246 300 Lab results within last 7 days (see chart for full results) Units 06/08/23 0536 06/07/23 0843 Sodium mmol/L 139 135 Potassium mmol/L 4.6 4.6 Chloride mmol/L 102 100 CO2 mmol/L 28 26 BUN mg/dL 14 17 Creatinine mg/dL 0.8 0.8 Glucose mg/dL 100 168* Calcium mg/dL 9.6 10.5* Magnesium mg/dL 1.9 -- Phosphorus mg/dL 3.6 -- Lab results within last 7 days (see chart for full results) Units 06/08/23 0536 Protein g/dL 6.3 Bilirubin, Total mg/dL 0.6 Alkaline Phosphatase U/L 93 AST U/L 55* ALT U/L 16 IMAGING: none postop IMPRESSION: Carlotta Khan is a 72 year old female s/p left BKA on 06/07/23. PLAN: - ASA 81mg and Plavix 75mg daily - LLE BKA dressing to remain in place. Will be changed by Vascular Surgery team Friday 06/09 - Encourage ambulation and OOB as tolerated - Rest of care per primary team Patient was seen and will be discussed with the attending physician. Harrison Dodd MD PGY2 06/09/2023 7:31 AM Associated attestation - Nnamdi King MD - 06/09/2023 11:46 AM EDT I saw and evaluated the patient today. I have reviewed the trainee note and agree. * Ancillary Progress Note - Yas Lane RN - 06/08/2023 2:08 PM EDT CARE MANAGEMENT - ADULT INITIAL SCREENING [facility] [address] Name: Carlotta Khan Location: [facility] H871/A Date: 06/08/2023 Time: 2:08 PM Discussed patient with the interdisciplinary care team. This Marketing Pr Intern performed a chart review and met with pt and granddaughter Jaki at bedside to complete admission screen and assessed needs for transition planning. The critical care unit nurse role and services were explained and emotional support was provided. Chief Complaint: No chief complaint on file. Prior Living Arrangements What was your living situation prior to admission/observation?: With Child (06/08/23 140) Living Quarters: House (06/08/231405) Do you have serious difficulty walking or climbing stairs? (5 years old or older): Yes (06/07/23 1148) History of falling: No (06/08/23 0700) Prior Level of Functioning Describe the patient's ability prior to admission/observation to perform ADLs: Performs independently (06/08/23 140) Requires assistance with: Dressing;Toileting;Bathing (06/07/23 1900) Describe the patient's mobility status prior to admission: Patient requires assistance with ambulation (06/08/23 140) Patient uses assistive device: No (06/07/23 1148) Caregiver Information Patient Contacts Name Relation Home Work Mobile Diamond Braxton Adult Child [phone] Anuradha Santiago Adult Child [phone] Aba Braxton Other - (no specific identity) [phone] Risk Stratification/Psychosocial/Care Gaps Risk Stratification Psycho Social / Medical Concerns Identified: Multiple Comorbidities;Adjustment to illness/injury (06/08/231405) Accessed [facility] to connect patients to social care resources: No (06/08/231405) Readmission Risk Score: 17.22 (06/08/23 1200) AM-PAC Score With Stairs : 14 (06/07/23 1416) Prior to Admission Services Services Prior to Admission IMAGERY INTELLIGENCE Services (Services received within the last 30 days with exception, Psych within last two years): N/A (06/08/231405) [place] Dept[employer] of Aging (PDA) Waiver Program: N/A (06/08/231405) IMAGERY INTELLIGENCE Transportation (Services received within the last 30 days): Family/Friends Personal Vehicle (06/08/231405) Outpatient Marketing Pr Intern: No care sample steamer to display Patient/Family Expectations: Met with pt and granddaughter to discuss post acute discharge plan. They are thinking rehab but uncertain of where. [facility]ided [facility] [place] [facility] [place] [facility] [place] [facility]. Also emailed a copy to granddaughter Jaki at [email or web address]. For further screening information, please refer to the Care Management flow document. * Ancillary Progress Note - Ayla Jewell RDN - 06/08/2023 12:44 PM EDT CLINICAL NUTRITION ADULT RISK ASSESSMENT [facility] [place] [address] Name: Carlotta Khan Location: [facility] H871/A Date: 06/08/2023 Time: 12:44 PM How patient was identified (select 2): Medical record number and Name Carlotta Khan is a 72 year old female being assessed for clinical nutrition risk related to skin breakdown Primary diagnosis: scheduled with new ulceration to her left 3rd toe S/p left below-knee amputation. Other pertinent information: Patient reports that she has good appetite and eating well. Doesn't follow diabetic diet. Current A1C is high 9.1%. Pt will be beneficial with diabetic education. Needs reinforcement to follow diabetic eduction. Doesn't want diabetic diet. Pt doesn't want to have 2 gm sodium restriction. She states that her BP is low and doesn't want to have restriction. She reports that doesn't tolerate broccoli and doesn't like frozen beans and carrots. Prefers to have reg milk with decaf beverages. Relayed message to the kitchen. Diet adjusted to consistent carbohydrate diet due to high A1c. Will continue to reiterate the importance of following diabetic diet. Denies N/V and abdominal discomfort. No BM documented yet. Doesn't prefer any supplements. Recommend clinical systems educator. Anthropometrics Measurements Admission weight (for dietitians): 70.534 kg (155 lb 8 oz) Height: 158.8 cm (5' 2.5") (06/07/23 0722) Weight: 71.6 kg (157 lb 14.4 oz) (06/08/23 0353) BMI: 27.97 (06/07/23 0722) Usual Body Weight or EDW for Dialysis Patients: 68- 78 kg per EHR ,65.9 kg per pt in Nov. Diet: Heart Healthy, 2 gm Sodium Previously followed diet: regular Food Allergies/Intolerances: None Pertinent medications/vitamins/minerals/supplements: Vit D3, Novolog, pantoprazole, RISK FACTORS: Adult Energy Intake: No significant decrease Interpretation of Weight Change: No recent/significant weight change Some weight fluctuation noted through out the year. Was on diuretics in the past. Skin: Incision to left lower leg, NUTRITION RISK CATEGORY: Nutrition Risk Category: Low/Moderate (0-1 factors) Clinical Nutrition Recommendations: Diet: Continue current nutrition plan Recommend to clinical systems educator NUTRITION INTERVENTION/PLAN: Orders: Change diet to consistent carbohydrate diet and continue heart healthy diet. Continue current care plan Will follow and adjust nutritional plan as medical condition requires. Please contact for change(s)in patient condition requiring earlier intervention. Ayla Jewell MS, RDN, LDN Clinical Dietitian [facility] [place] text * Progress Notes - Post-Op Global - Layla Marroquin MD - 06/08/2023 8:32 AM EDT PROGRESS NOTE - Vascular Surgery [facility] [place] [address] Name: Carlotta Khan Location: [facility] [place] H871/A Date: 06/08/2023 Time: 8:32 AM DIAGNOSIS: Gangrene left lower extremity PROCEDURE: left below-knee amputation DATE OF SURGERY: 06/07/2023 SUBJECTIVE: NAEON. AF VSS. Patient is feeling overall well this morning. Her pain is well controlled with PO pain medication. She is tolerating a diet without issue. Dressing in place over L BKA stump. OBJECTIVE: Most Recent Vital Signs: BP: 108 mmHg/46 mmHg (06/08/23748) Pulse: 87 (06/08/23748) Temp: 36.44 C (06/08/23748) Temp Summary: Temp Min: 36.3 C (97.3 F) Max: 37.1 C (98.8 F) SpO2: 98 % (06/08/23748) O2 flow rate: 2 L/MIN (06/08/23748) Supplemental O2 Delivery: Nasal Cannula (06/08/23748) Vital Signs Last 24 Hours: Systolic BP: Most Recent Systolic BP Av mmHg Min: 95 mmHg Max: 151 mmHg Temperature: Most Recent Temperature Av.6 C Min: 36.28 C Max: 37.11 C Pulse: Pulse Av.3 Min: 87 Max: 102 Respirations: Resp Av.9 Min: 11 Max: 21 SpO2: SpO2 Av.7 % Min: 91 % Max: 100 % Intake and Output Last 24 Hours: Intake/Output Summary (Last 24 hours) at 06/08/2023 0832 Last data filed at 06/08/2023 0400 Gross per 24 hour Intake 1130 ml Output 750 ml Net 380 ml Physical Exam: Constitutional: alert, no acute distress HEENT: normocephalic, atraumatic, conjunctiva non-injected, sclera white Neck: supple, trachea midline Lungs: normal respiratory effort Heart: regular rate & rhythm Abdomen: soft, non-distended Neuro: alert, motor & sensation grossly intact Skin: no obvious rashes or significant lesions Extremities: left lower extremity BKA stump dressing is C/D/I without saturation, nontender, drain in place with minimal serosang output, removed LABS: Lab results within last 7 days (see chart for full results) Units 06/08/23 0536 06/07/23 0843 WBC K/uL 12.76* 12.54* HGB g/dL 11.4* 14.0 PLT K/uL 246 300 Lab results within last 7 days (see chart for full results) Units 06/08/23 0536 06/07/23 0843 Sodium mmol/L 139 135 Potassium mmol/L 4.6 4.6 Chloride mmol/L 102 100 CO2 mmol/L 28 26 BUN mg/dL 14 17 Creatinine mg/dL 0.8 0.8 Glucose mg/dL 100 168* Calcium mg/dL 9.6 10.5* Magnesium mg/dL 1.9 -- Phosphorus mg/dL 3.6 -- Lab results within last 7 days (see chart for full results) Units 06/08/23 0536 Protein g/dL 6.3 Bilirubin, Total mg/dL 0.6 Alkaline Phosphatase U/L 93 AST U/L 55* ALT U/L 16 No results in the last 7 days - inpatent use only No results in the last 7 days - inpatent use only IMAGING: none postop IMPRESSION: Carlotta Khan is a 72 year old female s/p left BKA on 06/07/23. PLAN: - ASA 81mg and Plavix 75mg daily - Drain to be removed today - LLE BKA dressing to remain in place. Will be changed by Vascular Surgery team Friday 06/09 - Encourage ambulation and OOB as tolerated - Rest of care per primary team Patient was seen and will be discussed with the attending physician. Layla Marroquin MD General Surgery PGY-1 [facility] Associated attestation - Nnamdi King MD - 06/08/2023 12:49 PM EDT I saw and evaluated the patient today. I have reviewed the trainee note and agree. * Care Plan - Damaris Aguilar RN - 06/08/2023 1:08 AM EDT Clinical Goal(s): pt will remain free from injury (06/07/23 1416) Possible barriers to meeting goal(s)/advancing plan of care: recent surgical procedure, recent sedation Stability of the patient: Moderately stable - low risk of patient condition declining or worsening Summary regarding today's goal(s): Met: patient had no injuries or falls this shift Recommendations: continue hourly rounds to assess for pt needs, * Ancillary Progress Note - Latesha Weber RRT - 06/07/2023 5:42 PM EDT PATIENT DRIVEN PROTOCOL - Respiratory Care Services [facility] [address] Name: Carlotta Khan Location: [facility] H871/A Date: 06/07/2023 Time: 5:42 PM Patient Driven Protocol Summary: Initial evaluation performed. This Treatment Plan and medications will be reviewed by the Primary Care Team for any contraindications. Respiratory Care Treatment Plan Aerosol Therapy Treatment:: Inhaler(s) QDAY with Trelegy Ellipta (fluticasone furoate 100 mcg, umeclidinium 62.5 mcg and Vilanterol 25 mcg inhalation powder) / 1 inhalation. to suppress bronchial inflammation and edema by the use of systemic steroid sparing therapy. Additional Aerosolized Treatments: Inhaler(s) PRN with Albuterol Sulfate: Unit dose 0.083%. to reduce work of breathing and improve pulmonary gas exchange. . Pulmonary Volume Expansion Therapy: Deep Breathing/Cough PRN to prevent or treat alveolar consolidation and atelectasis. . The patient will be re-evaluated: No re-evaluation needed. Indications for treatment met. The Triage Level is: (Assessment Score = 6 -10) Level 4. Triage Level Definitions: Level 1 Severe Respiratory/Airway Compromise Level 2 Moderate Respiratory/Airway Compromise or high risk for pulmonary complications Level 3 Mild Respiratory/Airway Compromise or moderate risk for pulmonary complications Level 4 Episodic Respiratory/Airway Compromise or low risk for pulmonary complications Level 5 No Respiratory/Airway Compromise Triage 1 Triage 2 Triage 3 Triage 4 Triage 5 greater than 20 16 - 20 11 - 15 6 - 10 0 - 5 Medical Record Assessment Clinical Findings Pulmonary Status: 3 - Pulm Impairment (acute or chronic) w/o exacerbation, or 1 - 2 rib fractures Surgical Status: 1 - General Surgery Chest X-Ray: 0 - Not Performed or performed greater than 3 days ago Assessment Score: 4 Patient Assessment Clinical Findings Respiratory Pattern: 0 - RR 12 - 20; Patient only gets breathless with strenuous exercise. Breath Sounds: 2 - Diminished bilaterally Cough Effectiveness: 0 - Strong non-productive Sputum Production: 0 - No sputum production Level of Activity: 1 - Ambulatory with assist O2 needed to keep SpO2 greater than or equal to 92%: 1 - Oxygen 1-3 LPM or FiO2 less than 35% Assessment Score: 4 Total Assessment Score: 8 Breath Sounds: Inspiratory and expiratory clear and diminished bilaterally.. Cough and Sputum: An effective cough produced no sputum... CXR: not done . Vital Signs: Resp: 18 (06/07/23 1416) Pulse: 93 (06/07/23 1416) Temp: 36.9 C (98.4 F) (06/07/23 1416) BP: 115/48 (06/07/23 1416) SpO2: 95 % (06/07/23 1400) PFT: Minimal Predicted IC: L. Inspiratory capacity: L. Patient unable to perform Inspiratory Capacity. Reason: Pt refuses to do . Primary Service: Med K. 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 Prescriptions/Home Medications/Durable Medical Equipment: trelegy, PRN albuterol per PT. Recommended New home medications/durable medical equipment/outpatient pulmonary/sleep referral . * Progress Notes - Non-Billable - Harrison Dodd MD - 06/07/2023 1:13 PM EDT PROGRESS NOTE - Vascular Surgery [facility] [address] Name: Carlotta Khan [facility] Date: 06/07/2023 Time: 1:13 PM DIAGNOSIS: Gangrene left lower extremity PROCEDURE: left below-knee amputation DATE OF SURGERY: 06/07/2023 SUBJECTIVE: Patient was seen and examined at the bedside postoperatively. No acute events since surgery. VitalsWNL - AF, HDS, saturating well on 1L NC. She is drowsy but otherwise feels well. Denies pain at thesurgical site - remains numb from nerve block. Has not yet had anything to eat/drink. Has not yet voided since surgery. Has not yet been OOB since surgery. Denies fevers, chills, nausea, vomiting, diz ziness, lightheadedness, chest pain, SOB. OBJECTIVE: Most Recent Vital Signs: BP: 100 mmHg/44 mmHg (06/07/23 1245) Pulse: 92 (06/07/23 1245) Temp: 37.11 C (06/07/23 1050) Temp Summary: Temp Min: 36.7 C (98.1 F) Max: 37.1 C (98.8 F) SpO2: 95 % (06/07/23 1245) O2 flow rate: 1 L/MIN (06/07/23 1245) Supplemental O2 Delivery: Nasal Cannula (06/07/23 1245) Vital Signs Last 24 Hours: Systolic BP: Most Recent Systolic BP Av.8 mmHg Min: 95 mmHg Max: 151 mmHg Temperature: Most Recent Temperature Av.9 C Min: 36.72 C Max: 37.11 C Pulse: Pulse Av.9 Min: 92 Max: 104 Respirations: Resp Av.5 Min: 11 Max: 24 SpO2: SpO2 Av.4 % Min: 91 % Max: 100 % Intake and Output Last 24 Hours: Intake/Output Summary (Last 24 hours) at 06/07/2023 1313 Last data filed at 06/07/2023 1044 Gross per 24 hour Intake 750 ml Output 100 ml Net 650 ml Physical Exam: Constitutional: alert, no acute distress HEENT: normocephalic, atraumatic, conjunctiva non-injected, sclera white Neck: supple, trachea midline Lungs: normal respiratory effort Heart: regular rate & rhythm Abdomen: soft, non-distended Neuro: alert, motor & sensation grossly intact Skin: no obvious rashes or significant lesions Extremities: left lower extremity BKA stump dressing is C/D/I without saturation, nontender, drain in place held to bulb suction without any output since surgery LABS: none postop IMAGING: none postop IMPRESSION: Carlotta Khan is a 72 year old female s/p left BKA on 06/07/23. PLAN: - ASA 81mg and Plavix 75mg daily - Drain to be removed tomorrow 06/07 by Vascular Surgery team - LLE BKA dressing to remain in place. Will be changed by Vascular Surgery team Friday 06/09 or Monday 06/12 - Encourage ambulation and OOB as tolerated - Rest of care per primary team Patient was seen and will be discussed with the attending physician. Harrison Dodd MD, PGY2 06/07/2023 1:13 PM documented in this encounter Plan of Treatment Upcoming Encounters Date Type Department Care Team (Late st Contact Info) Description 06/15/2023 5:30 AM EDT Laboratory Lab Mobile Phlebotomy [facility] [address] [address] [facility] [place] [address] [place] [address] Arrived 06/29/2023 10:30 AM EDT Office Visit Vascular Surgery, [facility] [address] [place] [address] Nnamdi King MD [address] [place] [address] 10/10/2023 4:00 PM EDT Office Visit Nephrology, [facility] [address] [facility] [place] [address] Charla Potter MD [address] [facility] [place] [address] 12/07/2023 9:20 AM EDT Office Visit Family Medicine [address] [address] Courtney Restrepo MD [address] [place] [address] [place], [place] [phone] Scheduled Procedures Name Priority Associated Diagnoses Date/Ti [...] D LEVEL ONCE IN A LIFETIME-USE SMARTSET# [id number] Completed 10/16/2021, 12/27/2018 Alpha-1 Antitrypsin Discontinued GARDASIL-HPV [...] this encounter Medical Devices Implanted Type Area Billing Specialist Device Identifier Shelf Expiration Date Model / Serial / Lot Stent Graft Icast [id number] - [id number] - [id number] Implanted:Qty : 1 on 04/14/2022 by Nnamdi King MD at [place] [facility] N/A: Mesenteric Artery GETINGE : YOELT [id number] 02/21/2023 [id number] / [id number] / [id number] Description:implanted in SMA Stent Howie 3.0x15 Rx - [id number] Implanted:Qty : 1 on 11/12/2022 by Patrice Jose MD at CARDIAC LABS [facility] MEDTRONIC : VASCULAR [id number] 11/28/2023 [id number] / / [id number] documented as of this encounter Procedures Procedure Name Priority Date/Time Associated Diagnosis Comments GLUCOSE METER, POINT OF CARE [facility] 06/14/2023 11:36 AM EDT GLUCOSE METER, POINT OF CARE [facility] 06/14/2023 7:41 AM EDT BASIC METABOLIC PANEL Routine 06/14/2023 6:01 AM EDT CBC Routine 06/14/2023 6:01 AM EDT GLUCOSE METER, POINT OF CARE [facility] 06/13/2023 9:07 PM EDT GLUCOSE METER, POINT OF CARE [facility] 06/13/2023 3:57 PM EDT GLUCOSE METER, POINT OF CARE [facility] 06/13/2023 11:55 AM EDT GLUCOSE METER, POINT OF CARE [facility] 06/13/2023 8:03 AM EDT BASIC METABOLIC PANEL Routine 06/13/2023 7:23 AM EDT CBC Routine 06/13/2023 7:23 AM EDT GLUCOSE METER, POINT OF CARE [facility] 06/12/2023 8:52 PM EDT GLUCOSE METER, POINT OF CARE [facility] 06/12/2023 4:25 PM EDT GLUCOSE METER, POINT OF CARE [facility] 06/12/2023 11:50 AM EDT GLUCOSE METER, POINT OF CARE [facility] 06/12/2023 7:55 AM EDT GLUCOSE METER, POINT OF CARE [facility] 06/11/2023 9:04 PM EDT GLUCOSE METER, POINT OF CARE [facility] 06/11/2023 3:46 PM EDT GLUCOSE METER, POINT OF CARE [facility] 06/11/2023 11:01 AM EDT GLUCOSE METER, POINT OF CARE [facility] 06/11/2023 7:50 AM EDT BASIC METABOLIC PANEL Routine 06/11/2023 6:31 AM EDT CBC Routine 06/11/2023 6:31 AM EDT GLUCOSE METER, POINT OF CARE [facility] 06/10/2023 8:37 PM EDT GLUCOSE METER, POINT OF CARE [facility] 06/10/2023 4:49 PM EDT GLUCOSE METER, POINT OF CARE [facility] 06/10/2023 11:30 AM EDT GLUCOSE METER, POINT OF CARE [facility] 06/10/2023 7:35 AM EDT CBC Routine 06/10/2023 5:47 AM EDT GLUCOSE METER, POINT OF CARE [facility] 06/09/2023 8:47 PM EDT GLUCOSE METER, POINT OF CARE [facility] 06/09/2023 4:48 PM EDT GLUCOSE METER, POINT OF CARE [facility] 06/09/2023 11:37 AM EDT BASIC METABOLIC PANEL Routine 06/09/2023 7:58 AM EDT CBC Routine 06/09/2023 7:58 AM EDT GLUCOSE METER, POINT OF CARE ROLO 06/09/2023 7:56 AM EDT GLUCOSE METER, POINT OF CARE ROLO 06/08/2023 8:56 PM EDT GLUCOSE METER, POINT OF CARE ROLO 06/08/2023 4:35 PM EDT GLUCOSE METER, POINT OF CARE ROLO 06/08/2023 11:46 AM EDT GLUCOSE METER, POINT OF CARE ROLO 06/08/2023 7:49 AM EDT HEMOGLOBIN A1C Routine 06/08/2023 5:36 AM EDT COMPREHENSIVE METABOLIC PANEL Routine 06/08/2023 5:36 AM EDT PHOSPHORUS Routine 06/08/2023 5:36 AM EDT CBC Routine 06/08/2023 5:36 AM EDT MAGNESIUM Routine 06/08/2023 5:36 AM EDT GLUCOSE METER, POINT OF CARE ROLO 06/07/2023 9:33 PM EDT GLUCOSE METER, POINT OF CARE ROLO 06/07/2023 4:46 PM EDT SARS-COV-2 (COVID-19), NAAT STAT 06/07/2023 12:04 PM EDT GLUCOSE METER, POINT OF CARE ROLO 06/07/2023 11:08 AM EDT GLUCOSE METER, POINT OF CARE ROLO 06/07/2023 9:11 AM EDT BASIC METABOLIC PANEL STAT 06/07/2023 8:43 AM EDT TYPE AND SCREEN Routine 06/07/2023 8:43 AM EDT CBC STAT 06/07/2023 8:43 AM EDT AMPUTATION OF LOWER LEG 06/07/2023 8:20 AM EDT 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 Co de Phone Number [facility] [address] [place] [address] * (ABNORMAL) GLUCOSE METER, POINT OF CARE (06/14/2023 7:41 AM EDT) Glucose Meter 152(H) 70 - 120 mg/dL 06/14/2023 7:50 AM EDT [facility] [employer] [facility] Blood Whole blood specimen / Unknown 06/14/2023 7:41 AM EDT 06/14/2023 7:50 AM EDT Ivelisse Zuluaga MD LAB POINT OF CARE TE ST DOCKED DEVICE UNSOLICITED RESULTS [facility] [address] [place] [address] * (ABNORMAL) CBC (06/14/2023 6:01 AM EDT) WBC 10.96(H) 4.00 - 10.80 K/uL 06/14/2023 6:22 AM EDT LAB[facility]ATORY [facility] RBC 3.72 3.85 - 5.15 M/uL 06/14/2023 6:22 AM EDT LABORATORY [facility] HGB 11.5(L) 12.0 - 15.3 g/dL 06/14/2023 6:22 AM EDT LAB[facility]ATORY [facility] HCT 33.9(L) 36.0 - 45.2 % 06/14/2023 6:22 AM EDT LAB[facility]ATORY [facility] MCV 91.1 81.5 - 97.5 fL 06/14/2023 6:22 AM EDT LAB[facility]ATORY [facility] MCH 30.9 27.0 - 34.0 pg 06/14/2023 6:22 AM EDT LAB[facility]ATORY [facility] MCHC 33.9 32.0 - 36.0 g/dL 06/14/2023 6:22 AM EDT LAB[facility]ATORY [facility] RDW 14.1 11.5 - 15.5 % 06/14/2023 6:22 AM EDT LABORATORY [facility] PLT 314 140 - 400 K/uL 06/14/2023 6:22 AM EDT LAB[facility]ATORY [facility] MPV 10.4 6.6 - 11.1 fL 06/14/2023 6:22 AM EDT LAB[facility]ATORY [facility] nRBCs 0 <=0 /100 WBCs 06/14/2023 6:22 AM EDT [facility] Blood Venous blood specimen / Unknown Venipuncture / Unknown 06/14/2023 6:01 AM EDT 06/14/2023 6:11 AM EDT Renetta Partida PA-C LAB BLOOD [facility] [address] [place] [address] * (ABNORMAL) BASIC METABOLIC PANEL (06/14/2023 6:01 AM EDT) BUN 17 6 - 20 mg/dL 06/14/2023 6:35 AM EDT LABORATORY [facility] Creatinine 0.6 0.5 - 1.0 mg/dL 06/14/2023 6:35 AM EDT LABORATORY [facility] Estimated Glomerular Filtration Rate >90 >=60 mL/min 06/14/2023 6:35 AM EDT LABORATORY C Comment:eGFR is calculated b ased on the CKD-EPI 2020 equation Sodium 132(L) 135 - 146 mmol/L 06/14/2023 6:35 AM EDT LABORATORY [facility] Potassium 4.4 3.5 - 5.1 mmol/L 06/14/2023 6:35 AM EDT LABORATORY C Comment:Result may be falsel y elevated due to hemolysis. Chloride 96(L) 98 - 107 mmol/L 06/14/2023 6:35 AM EDT LABORATORY C CO2 27 22 - 32 mmol/L 06/14/2023 6:35 AM EDT LABORATORY [facility] Anion Gap 9 7 - 15 mmol/L 06/14/2023 6:35 AM EDT LABORATORY [facility] Glucose 174(H) 70 - 120 mg/dL 06/14/2023 6:35 AM EDT LABORATORY [facility] Calcium 9.4 8.4 - 10.2 mg/dL 06/14/2023 6:35 AM EDT LABORATORY [facility] Blood Venous blood specimen / Unknown Venipuncture / Unknown 06/14/2023 6:01 AM EDT 06/14/2023 6:11 AM EDT Renetta Partida PA-C LAB BLOOD [facility]ER[facility]AN [facility] Organization Address City/State/ZIP Co de Phone Number LABORATORY [facility] [address] [place] [address] * (ABNORMAL) GLUCOSE METER, POINT OF CARE (06/13/2023 9:07 PM EDT) Glucose Meter 212(H) 70 - 120 mg/dL 06/13/2023 9:34 PM EDT [employer] Blood Whole blood specimen / Unknown 06/13/2023 9:07 PM EDT 06/13/2023 9:34 PM EDT Ivelisse Zuluaga MD LAB POINT OF CARE TE ST DOCKED DEVICE UNSOLICITED RESULTS [facility] [address] [place] [address] * (ABNORMAL) GLUCOSE METER, POINT OF CARE (06/13/2023 3:57 PM EDT) Glucose Meter 128(H) 70 - 120 mg/dL 06/13/2023 4:19 PM EDT [employer] Blood Whole blood specimen / Unknown 06/13/2023 3:57 PM EDT 06/13/2023 4:19 PM EDT Ivelisse Zuluaga MD LAB POINT OF CARE TE ST DOCKED DEVICE UNSOLICITED RESULTS Performing Organization Address City/[facility]/ZIP Co de Phone Number [facility] [address] [place] [address] * (ABNORMAL) GLUCOSE METER, POINT OF CARE (06/13/2023 11:55 AM EDT) Glucose Meter 191(H) 70 - 120 mg/dL 06/13/2023 12:10 PM EDT [employer] Blood Whole blood specimen / Unknown 06/13/2023 11:55 AM EDT 06/13/2023 12:10 PM EDT Ivelisse Zuluaga MD LAB POINT OF CARE TE ST DOCKED DEVICE UNSOLICITED RESULTS [facility] [address] [place] [address] * (ABNORMAL) GLUCOSE METER, POINT OF CARE (06/13/2023 8:03 AM EDT) Glucose Meter 133(H) 70 - 120 mg/dL 06/13/2023 8:22 AM EDT [employer] Blood Whole blood specimen / Unknown 06/13/2023 8:03 AM EDT 06/13/2023 8:22 AM EDT Ivelisse Zuluaga MD LAB POINT OF CARE TE ST DOCKED DEVICE UNSOLICITED RESULTS [facility] [address] [place] [address] * (ABNORMAL) CBC (06/13/2023 7:23 AM EDT) WBC 15.82(H) 4.00 - 10.80 K/uL 06/13/2023 7:42 AM EDT LAB[facility]ATORY [facility] RBC 3.75 3.85 - 5.15 M/uL 06/13/2023 7:42 AM EDT LAB[facility]ATORY [facility] HGB 11.6(L) 12.0 - 15.3 g/dL 06/13/2023 7:42 AM EDT LAB[facility]ATORY [facility] HCT 34.6(L) 36.0 - 45.2 % 06/13/2023 7:42 AM EDT LAB[facility]ATORY [facility] MCV 92.3 81.5 - 97.5 fL 06/13/2023 7:42 AM EDT LAB[facility]ATORY [facility] MCH 30.9 27.0 - 34.0 pg 06/13/2023 7:42 AM EDT LAB[facility]ATORY [facility] MCHC 33.5 32.0 - 36.0 g/dL 06/13/2023 7:42 AM EDT LAB[facility]ATORY [facility] RDW 14.2 11.5 - 15.5 % 06/13/2023 7:42 AM EDT LABORATORY [facility] PLT 286 140 - 400 K/uL 06/13/2023 7:42 AM EDT LAB[facility]ATORY [facility] MPV 10.4 6.6 - 11.1 fL 06/13/2023 7:42 AM EDT LABORATORY [facility] nRBCs 0 <=0 /100 WBCs 06/13/2023 7:42 AM EDT [facility] Blood Venous blood specimen / Unknown Venipuncture / Unknown 06/13/2023 7:23 AM EDT 06/13/2023 7:32 AM EDT Renetta Partida PA-C LAB BLOOD [facility] [address] [place] [address] * (ABNORMAL) BASIC METABOLIC PANEL (06/13/2023 7:23 AM EDT) BUN 17 6 - 20 mg/dL 06/13/2023 7:59 AM EDT LAB[facility]ATORY [facility] Creatinine 0.8 0.5 - 1.0 mg/dL 06/13/2023 7:59 AM EDT LAB[facility]ATORY [facility] Estimated Glomerular Filtration Rate 78 >=60 mL/min 06/13/2023 7:59 AM EDT LAB[facility]ATORY [facility] Comment:eGFR is calculated b ased on the CKD-EPI 2020 equation Sodium 135 135 - 146 mmol/L 06/13/2023 7:59 AM EDT LAB[facility]ATORY [facility] Potassium 5.2(H) 3.5 - 5.1 mmol/L 06/13/2023 7:59 AM EDT LAB[facility]ATORY [facility] Chloride 97(L) 98 - 107 mmol/L 06/13/2023 7:59 AM EDT LAB[facility]ORY [facility] CO2 32 22 - 32 mmol/L 06/13/2023 7:59 AM EDT LAB[facility]ORY [facility] Anion Gap 6(L) 7 - 15 mmol/L 06/13/2023 7:59 AM EDT LAB[facility]ORY [facility] Glucose 149(H) 70 - 120 mg/dL 06/13/2023 7:59 AM EDT LAB[facility]ORY [facility] Calcium 9.5 8.4 - 10.2 mg/dL 06/13/2023 7:59 AM EDT LABORATORY C Blood Venous blood specimen / Unknown Venipuncture / Unknown 06/13/2023 7:23 AM EDT 06/13/2023 7:32 AM EDT Renetta Partida PA-C LAB BLOOD PIERCE PHAN Performing Organization Address City/[facility]/ZIP Co de Phone Number LABORATORY [facility] [address] [place] [address] * (ABNORMAL) GLUCOSE METER, POINT OF CARE (06/12/2023 8:52 PM EDT) Glucose Meter 144(H) 70 - 120 mg/dL 06/13/2023 2:11 AM EDT [employer] Blood Whole blood specimen / Unknown 06/12/2023 8:52 PM EDT 06/13/2023 2:11 AM EDT Ivelisse Zuluaga MD LAB POINT OF CARE TE ST DOCKED DEVICE UNSOLICITED RESULTS Performing Organization Address City/[facility]/ZIP Co de Phone Number [facility] [address] [place] [address] * (ABNORMAL) GLUCOSE METER, POINT OF CARE (06/12/2023 4:25 PM EDT) Glucose Meter 162(H) 70 - 120 mg/dL 06/12/2023 4:27 PM EDT [employer] Blood Whole blood specimen / Unknown 06/12/2023 4:25 PM EDT 06/12/2023 4:27 PM EDT Ivelisse Zuluaga MD LAB POINT OF CARE TE ST DOCKED DEVICE UNSOLICITED RESULTS Performing Organization Address City/[facility]/ZIP Co de Phone Number [facility] [address] [place] [address] * (ABNORMAL) GLUCOSE METER, POINT OF CARE (06/12/2023 11:50 AM EDT) Glucose Meter 154(H) 70 - 120 mg/dL 06/12/2023 11:57 AM EDT [employer] Blood Whole blood specimen / Unknown 06/12/2023 11:50 AM EDT 06/12/2023 11:57 AM EDT Ivelisse Zuluaga MD LAB POINT OF CARE TE ST DOCKED DEVICE UNSOLICITED RESULTS Performing Organization Address City/[facility]/ZIP Co de Phone Number [facility] [address] [place] [address] * (ABNORMAL) GLUCOSE METER, POINT OF CARE (06/12/2023 7:55 AM EDT) Glucose Meter 162(H) 70 - 120 mg/dL 06/12/2023 8:18 AM EDT [facility] Blood Whole blood specimen / Unknown 06/12/2023 7:55 AM EDT 06/12/2023 8:18 AM EDT Ivelisse Zuluaga MD LAB POINT OF CARE TE ST DOCKED DEVICE UNSOLICITED RESULTS [facility] [address] [place] [address] * (ABNORMAL) GLUCOSE METER, POINT OF CARE (06/11/2023 9:04 PM EDT) Glucose Meter 138(H) 70 - 120 mg/dL 06/12/2023 3:24 AM EDT [facility] Blood Whole blood specimen / Unknown 06/11/2023 9:04 PM EDT 06/12/2023 3:24 AM EDT Gely Molina MD LAB POINT OF CARE TE ST DOCKED DEVICE UNSOLICITED RESULTS [facility] [address] [place] [address] * (ABNORMAL) GLUCOSE METER, POINT OF CARE (06/11/2023 3:46 PM EDT) Glucose Meter 135(H) 70 - 120 mg/dL 06/11/2023 4:02 PM EDT [facility] [employer] Blood Whole blood specimen / Unknown 06/11/2023 3:46 PM EDT 06/11/2023 4:01 PM EDT Geyl Molina MD LAB POINT OF CARE TE ST DOCKED DEVICE UNSOLICITED RESULTS [facility] [address] [place] [address] * (ABNORMAL) GLUCOSE METER, POINT OF CARE (06/11/2023 11:01 AM EDT) Glucose Meter 178(H) 70 - 120 mg/dL 06/12/2023 3:25 AM EDT [facility] [employer] Blood Whole blood specimen / Unknown 06/11/2023 11:01 AM EDT 06/12/2023 3:25 AM EDT Gely Molina MD LAB POINT OF CARE TE ST DOCKED DEVICE UNSOLICITED RESULTS Performing Organization Address City/[facility]/ZIP Co de Phone Number [facility] [address] [place] [address] * (ABNORMAL) GLUCOSE METER, POINT OF CARE (06/11/2023 7:50 AM EDT) Glucose Meter 166(H) 70 - 120 mg/dL 06/13/2023 1:34 AM EDT [facility] [employer] Blood Whole blood specimen / Unknown 06/11/2023 7:50 AM EDT 06/13/2023 1:34 AM EDT Ivelisse Zuluaga MD LAB POINT OF CARE TE ST DOCKED DEVICE UNSOLICITED RESULTS Performing Organization Address City/[facility]/ZIP Co de Phone Number [facility] [address] [place] [address] * (ABNORMAL) CBC (06/11/2023 6:31 AM EDT) WBC 11.09(H) 4.00 - 10.80 K/uL 06/11/2023 7:00 AM EDT LAB[facility]ATORY [facility] RBC 3.95 3.85 - 5.15 M/uL 06/11/2023 7:00 AM EDT LAB[facility]ORY [facility] HGB 12.1 12.0 - 15.3 g/dL 06/11/2023 7:00 AM EDT LAB[facility]ATORY [facility] HCT 35.5(L) 36.0 - 45.2 % 06/11/2023 7:00 AM EDT LAB[facility]ATORY [facility] MCV 89.9 81.5 - 97.5 fL 06/11/2023 7:00 AM EDT LAB[facility]ORY [facility] MCH 30.6 27.0 - 34.0 pg 06/11/2023 7:00 AM EDT LAB[facility]ORY [facility] MCHC 34.1 32.0 - 36.0 g/dL 06/11/2023 7:00 AM EDT LABORATORY C RDW 14.1 11.5 - 15.5 % 06/11/2023 7:00 AM EDT LABORATORY [facility] PLT 246 140 - 400 K/uL 06/11/2023 7:00 AM EDT LABORATORY GM MPV 10.7 6.6 - 11.1 fL 06/11/2023 7:00 AM EDT LABORATORY [facility] nRBCs 0 <=0 /100 WBCs 06/11/2023 7:00 AM EDT LABORATORY [facility] Blood Venous blood specimen / Unknown Venipuncture / Unknown 06/11/2023 6:31 AM EDT 06/11/2023 6:49 AM EDT Renetta Partida PA-C LAB BLOOD [facility] Organization Address City/State/ZIP Co de Phone Number LABORATORY [facility] [address] [place] [address] * (ABNORMAL) BASIC METABOLIC PANEL (06/11/2023 6:31 AM EDT) BUN 16 6 - 20 mg/dL 06/11/2023 7:20 AM EDT LABORATORY [facility] Creatinine 0.7 0.5 - 1.0 mg/dL 06/11/2023 7:20 AM EDT LAB[facility]ATORY [facility] Estimated Glomerular Filtration Rate >90 >=60 mL/min 06/11/2023 7:20 AM EDT LABORATORY [facility] Comment:eGFR is calculated b ased on the CKD-EPI 2020 equation Sodium 135 135 - 146 mmol/L 06/11/2023 7:20 AM EDT LABORATORY [facility] Potassium 4.5 3.5 - 5.1 mmol/L 06/11/2023 7:20 AM EDT LAB[facility]ATORY [facility] Chloride 98 98 - 107 mmol/L 06/11/2023 7:20 AM EDT LAB[facility]ATORY [facility] CO2 30 22 - 32 mmol/L 06/11/2023 7:20 AM EDT LAB[facility]ATORY [facility] Anion Gap 7 7 - 15 mmol/L 06/11/2023 7:20 AM EDT LAB[facility]ATORY [facility] Glucose 181(H) 70 - 120 mg/dL 06/11/2023 7:20 AM EDT LAB[facility]ATORY [facility] Calcium 9.4 8.4 - 10.2 mg/dL 06/11/2023 7:20 AM EDT LABORATORY [facility] Blood Venous blood specimen / Unknown Venipuncture / Unknown 06/11/2023 6:31 AM EDT 06/11/2023 6:49 AM EDT Renetta Partida PA-C LAB BLOOD [facility] [address] [place] [address] * (ABNORMAL) GLUCOSE METER, POINT OF CARE (06/10/2023 8:37 PM EDT) Glucose Meter 175(H) 70 - 120 mg/dL 06/11/2023 1:45 AM EDT [employer] Blood Whole blood specimen / Unknown 06/10/2023 8:37 PM EDT 06/11/2023 1:45 AM EDT Ivelisse Zuluaga MD LAB POINT OF CARE TE ST DOCKED DEVICE UNSOLICITED RESULTS Performing Organization Address City/[facility] Co de Phone Number [facility] [address] [place] [address] * GLUCOSE METER, POINT OF CARE (06/10/2023 4:49 PM EDT) Glucose Meter 102 70 - 120 mg/dL 06/10/2023 5:04 PM EDT [employer] Blood Whole blood specimen / Unknown 06/10/2023 4:49 PM EDT 06/10/2023 5:04 PM EDT Ivelisse Zuluaga MD LAB POINT OF CARE TE ST DOCKED DEVICE UNSOLICITED RESULTS Performing Organization Address City/[facility]/ZIP Co de Phone Number [facility] [address] [place] [address] * (ABNORMAL) GLUCOSE METER, POINT OF CARE (06/10/2023 11:30 AM EDT) Glucose Meter 236(H) 70 - 120 mg/dL 06/10/2023 12:07 PM EDT [facility] [employer] Blood Whole blood specimen / Unknown 06/10/2023 11:30 AM EDT 06/10/2023 12:07 PM EDT Ivelisse Zuluaga MD LAB POINT OF CARE TE ST DOCKED DEVICE UNSOLICITED RESULTS Performing Organization Address City/[facility]/ZIP Co de Phone Number [facility] [address] [place] [address] * (ABNORMAL) GLUCOSE METER, POINT OF CARE (06/10/2023 7:35 AM EDT) Glucose Meter 143(H) 70 - 120 mg/dL 06/10/2023 8:15 AM EDT [facility] Blood Whole blood specimen / Unknown 06/10/2023 7:35 AM EDT 06/10/2023 8:15 AM EDT Ivelisse Zuluaga MD LAB POINT OF CARE TE ST DOCKED DEVICE UNSOLICITED RESULTS Performing Organization Address City/[facility]/ZIP Co de Phone Number [place] [address] [place] [address] * (ABNORMAL) CBC (06/10/2023 5:47 AM EDT) WBC 11.21(H) 4.00 - 10.80 K/uL 06/10/2023 6:12 AM EDT LABORATORY [facility] RBC 3.84 3.85 - 5.15 M/uL 06/10/2023 6:12 AM EDT LABORATORY [facility] HGB 11.3(L) 12.0 - 15.3 g/dL 06/10/2023 6:12 AM EDT LABORATORY [facility] HCT 35.4(L) 36.0 - 45.2 % 06/10/2023 6:12 AM EDT LAB[facility]ATORY [facility] MCV 92.2 81.5 - 97.5 fL 06/10/2023 6:12 AM EDT LABORATORY [facility] MCH 29.4 27.0 - 34.0 pg 06/10/2023 6:12 AM EDT LABORATORY [facility] MCHC 31.9 32.0 - 36.0 g/dL 06/10/2023 6:12 AM EDT LABORATORY [facility] RDW 14.2 11.5 - 15.5 % 06/10/2023 6:12 AM EDT LABORATORY [facility] PLT 222 140 - 400 K/uL 06/10/2023 6:12 AM EDT LABORATORY [facility] MPV 10.6 6.6 - 11.1 fL 06/10/2023 6:12 AM EDT LABORATORY [facility] nRBCs 0 <=0 /100 WBCs 06/10/2023 6:12 AM EDT LABORATORY [facility] Blood Venous blood specimen / Unknown Venipuncture / Unknown 06/10/2023 5:47 AM EDT 06/10/2023 5:58 AM EDT Renetta Partida PA-C LAB BLOOD [facility] LAB[facility]AT[facility] [address] [place] [address] * (ABNORMAL) GLUCOSE METER, POINT OF CARE (06/09/2023 8:47 PM EDT) Glucose Meter 172(H) 70 - 120 mg/dL 06/09/2023 9:[address] [facility] Blood Whole blood specimen / Unknown 06/09/2023 8:47 PM EDT 06/09/2023 9:16 PM EDT Ivelisse Zuluaga MD LAB POINT OF CARE TE ST DOCKED DEVICE UNSOLICITED RESULTS [facility] [address] [place] [address] * (ABNORMAL) GLUCOSE METER, POINT OF CARE (06/09/2023 4:48 PM EDT) Glucose Meter 157(H) 70 - 120 mg/dL 06/09/2023 4:58 PM EDT [facility] Blood Whole blood specimen / Unknown 06/09/2023 4:48 PM EDT 06/09/2023 4:58 PM EDT Ivelisse Zuluaga MD LAB POINT OF CARE TE ST DOCKED DEVICE UNSOLICITED RESULTS Performing Organization Address City/[facility]/ZIP Co de Phone Number [facility] [address] [place] [address] * (ABNORMAL) GLUCOSE METER, POINT OF CARE (06/09/2023 11:37 AM EDT) Glucose Meter 154(H) 70 - 120 mg/dL 06/09/2023 12:12 PM EDT [facility] [employer] Blood Whole blood specimen / Unknown 06/09/2023 11:37 AM EDT 06/09/2023 12:12 PM EDT Ivelisse Zuluaga MD LAB POINT OF CARE TE ST DOCKED DEVICE UNSOLICITED RESULTS Performing Organization Address City/[facility] Co de Phone Number [facility] [address] [place] [address] * (ABNORMAL) CBC (06/09/2023 7:58 AM EDT) WBC 14.20(H) 4.00 - 10.80 K/uL 06/09/2023 8:36 AM EDT LABORATORY [facility] RBC 4.06 3.85 - 5.15 M/uL 06/09/2023 8:36 AM EDT LABORATORY [facility] HGB 12.0 12.0 - 15.3 g/dL 06/09/2023 8:36 AM EDT LABORATORY [facility] HCT 37.3 36.0 - 45.2 % 06/09/2023 8:36 AM EDT LABORATORY [facility] MCV 91.9 81.5 - 97.5 fL 06/09/2023 8:36 AM EDT LABORATORY [facility] MCH 29.6 27.0 - 34.0 pg 06/09/2023 8:36 AM EDT LABORATORY [facility] MCHC 32.2 32.0 - 36.0 g/dL 06/09/2023 8:36 AM EDT LABORATORY [facility] RDW 14.5 11.5 - 15.5 % 06/09/2023 8:36 AM EDT LABORATORY [facility] PLT 230 140 - 400 K/uL 06/09/2023 8:36 AM EDT LABORATORY C MPV 10.2 6.6 - 11.1 fL 06/09/2023 8:36 AM EDT LABORATORY [facility] nRBCs 0 <=0 /100 WBCs 06/09/2023 8:36 AM EDT LABORATORY [facility] Blood Venous blood specimen / Unknown Venipuncture / Unknown 06/09/2023 7:58 AM EDT 06/09/2023 8:27 AM EDT Renetta Partida PA-C LAB BLOOD [facility]ris PHAN [facility] Organization Address City/State/ZIP Co de Phone Number LABORATORY C [address] [place] [address] * (ABNORMAL) BASIC METABOLIC PANEL (06/09/2023 7:58 AM EDT) BUN 13 6 - 20 mg/dL 06/09/2023 9:16 AM EDT LABORATORY [facility] Creatinine 0.7 0.5 - 1.0 mg/dL 06/09/2023 9:16 AM EDT LABORATORY [facility] Estimated Glomerular Filtration Rate 88 >=60 mL/min 06/09/2023 9:16 AM EDT LABORATORY [facility] Comment:eGFR is calculated b ased on the CKD-EPI 2020 equation Sodium 132(L) 135 - 146 mmol/L 06/09/2023 9:16 AM EDT LABORATORY [facility] Potassium 4.9 3.5 - 5.1 mmol/L 06/09/2023 9:16 AM EDT LABORATORY [facility] Chloride 95(L) 98 - 107 mmol/L 06/09/2023 9:16 AM EDT LABORATORY [facility] CO2 29 22 - 32 mmol/L 06/09/2023 9:16 AM EDT LABORATORY [facility] Anion Gap 8 7 - 15 mmol/L 06/09/2023 9:16 AM EDT LAB[facility]ATORY [facility] Glucose 184(H) 70 - 120 mg/dL 06/09/2023 9:16 AM EDT [facility] Calcium 10.0 8.4 - 10.2 mg/dL 06/09/2023 9:16 AM EDT LAB[facility]AT[facility] Blood Venous blood specimen / Unknown Venipuncture / Unknown 06/09/2023 7:58 AM EDT 06/09/2023 8:27 AM EDT Renetta Partida PA-C LAB BLOOD [facility]AN [facility] [address] [place] [address] * (ABNORMAL) GLUCOSE METER, POINT OF CARE (06/09/2023 7:56 AM EDT) Glucose Meter 163(H) 70 - 120 mg/dL 06/09/2023 8:07 AM EDT [employer] Blood Whole blood specimen / Unknown 06/09/2023 7:56 AM EDT 06/09/2023 8:07 AM EDT Ivelisse Zuluaga MD LAB POINT OF CARE TE ST DOCKED DEVICE UNSOLICITED RESULTS Performing Organization Address City/[facility]/ZIP Co de Phone Number [facility] [address] [place] [address] * (ABNORMAL) GLUCOSE METER, POINT OF CARE (06/08/2023 8:56 PM EDT) Glucose Meter 242(H) 70 - 120 mg/dL 06/08/2023 9:14 PM EDT [employer] Blood Whole blood specimen / Unknown 06/08/2023 8:56 PM EDT 06/08/2023 9:14 PM EDT Ivelisse Zuluaga MD LAB POINT OF CARE TE ST DOCKED DEVICE UNSOLICITED RESULTS [facility] [address] [place] [address] * (ABNORMAL) GLUCOSE METER, POINT OF CARE (06/08/2023 4:35 PM EDT) Glucose Meter 130(H) 70 - 120 mg/dL 06/08/2023 4:45 PM EDT [facility] [employer] Blood Whole blood specimen / Unknown 06/08/2023 4:35 PM EDT 06/08/2023 4:45 PM EDT Ivelsise Zuluaga MD LAB POINT OF CARE TE ST DOCKED DEVICE UNSOLICITED RESULTS [facility] [address] [place] [address] * (ABNORMAL) GLUCOSE METER, POINT OF CARE (06/08/2023 11:46 AM EDT) Glucose Meter 245(H) 70 - 120 mg/dL 06/08/2023 12:18 PM EDT [employer] Blood Whole blood specimen / Unknown 06/08/2023 11:46 AM EDT 06/08/2023 12:17 PM EDT Ivelisse Zuluaga MD LAB POINT OF CARE TE ST DOCKED DEVICE UNSOLICITED RESULTS Performing Organization Address City/[facility]/ZIP Co de Phone Number [facility] [address] [place] [address] * GLUCOSE METER, POINT OF CARE (06/08/2023 7:49 AM EDT) Glucose Meter 98 70 - 120 mg/dL 06/08/2023 8:59 AM EDT [facility] [employer] [facility] Blood Whole blood specimen / Unknown 06/08/2023 7:49 AM EDT 06/08/2023 8:59 AM EDT Ivelisse Zuluaga MD LAB POINT OF CARE TE ST DOCKED DEVICE UNSOLICITED RESULTS [facility] [address] [place] [address] * PHOSPHORUS (06/08/2023 5:36 AM EDT) Phosphorus 3.6 2.5 - 4.8 mg/dL 06/08/2023 6:32 AM EDT [facility] Blood Venous blood specimen / Unknown Venipuncture / Unknown 06/08/2023 5:36 AM EDT 06/08/2023 5:55 AM EDT Raleigh Preciado MD LAB BLOOD ORDERABLES Performing Organization Address City/[facility]/ZIP Co de Phone Number LAB[facility]ATORY [facility] [address] [place] [address] * MAGNESIUM (06/08/2023 5:36 AM EDT) Magnesium 1.9 1.5 - 2.6 mg/dL 06/08/2023 6:32 AM EDT [facility] Blood Venous blood specimen / Unknown Venipuncture / Unknown 06/08/2023 5:36 AM EDT 06/08/2023 5:55 AM EDT Raleigh Preciado MD LAB BLOOD ORDERABLES Performing Organization Address City/[facility]/ZIP Co de Phone Number LAB[facility]ATORY [facility] [address] [place] [address] * (ABNORMAL) CBC (06/08/2023 5:36 AM EDT) WBC 12.76(H) 4.00 - 10.80 K/uL 06/08/2023 6:07 AM EDT [facility] RBC 3.84 3.85 - 5.15 M/uL 06/08/2023 6:07 AM EDT [facility] HGB 11.4(L) 12.0 - 15.3 g/dL 06/08/2023 6:07 AM EDT [facility] HCT 35.6(L) 36.0 - 45.2 % 06/08/2023 6:07 AM EDT [facility] MCV 92.7 81.5 - 97.5 fL 06/08/2023 6:07 AM EDT [facility] MCH 29.7 27.0 - 34.0 pg 06/08/2023 6:07 AM EDT [facility] MCHC 32.0 32.0 - 36.0 g/dL 06/08/2023 6:07 AM EDT [facility] RDW 14.6 11.5 - 15.5 % 06/08/2023 6:07 AM EDT [facility] PLT 246 140 - 400 K/uL 06/08/2023 6:07 AM EDT LAB[facility]ATORY [facility] MPV 10.1 6.6 - 11.1 fL 06/08/2023 6:07 AM EDT [facility] nRBCs 0 <=0 /100 WBCs 06/08/2023 6:07 AM EDT LABORATORY [facility] Blood Venous blood specimen / Unknown Venipuncture / Unknown 06/08/2023 5:36 AM EDT 06/08/2023 5:55 AM EDT Raleigh Preciado MD LAB BLOOD ORDERABLES LABORATORY [facility] [address] [place] [address] * (ABNORMAL) COMPREHENSIVE METABOLIC PANEL (06/08/2023 5:36 AM EDT) BUN 14 6 - 20 mg/dL 06/08/2023 6:32 AM EDT [facility] Creatinine 0.8 0.5 - 1.0 mg/dL 06/08/2023 6:32 AM EDT [facility] Estimated Glomerular Filtration Rate 80 >=60 mL/min 06/08/2023 6:32 AM EDT [facility] Comment:eGFR is calculated b ased on the CKD-EPI 2020 equation Sodium 139 135 - 146 mmol/L 06/08/2023 6:32 AM EDT [facility] Potassium 4.6 3.5 - 5.1 mmol/L 06/08/2023 6:32 AM EDT [facility] Chloride 102 98 - 107 mmol/L 06/08/2023 6:32 AM EDT [facility] CO2 28 22 - 32 mmol/L 06/08/2023 6:32 AM EDT [facility] Anion Gap 9 7 - 15 mmol/L 06/08/2023 6:32 AM EDT [facility] Glucose 100 70 - 120 mg/dL 06/08/2023 6:32 AM EDT [facility] Albumin 3.7(L) 3.8 - 5.0 g/dL 06/08/2023 6:32 AM EDT LAB[facility]ATORY [facility] AST 55(H) 10 - 35 U/L 06/08/2023 6:32 AM EDT LAB[facility]ORY [facility] Comment:Result may be falsel y elevated due to hemolysis. Alkaline Phosphatase 93 35 - 130 U/L 06/08/2023 6:32 AM EDT LAB[facility]ATORY [facility] Bilirubin, Total 0.6 <=1.2 mg/dL 06/08/2023 6:32 AM EDT LABORATORY [facility] Calcium 9.6 8.4 - 10.2 mg/dL 06/08/2023 6:32 AM EDT LABORATORY C Protein 6.3 6.0 - 8.3 g/dL 06/08/2023 6:32 AM EDT LABORATORY [facility] ALT 16 10 - 35 U/L 06/08/2023 6:32 AM EDT LAB[facility]ATORY [facility] Blood Venous blood specimen / Unknown Venipuncture / Unknown 06/08/2023 5:36 AM EDT 06/08/2023 5:55 AM EDT Raleigh Preciado MD LAB BLOOD ORDERABLES LABORATORY [facility] [address] [place] [address] * (ABNORMAL) HEMOGLOBIN A1C (06/08/2023 5:36 AM EDT) Hemoglobin A1C 9.1(H) 4.0 - 5.6 % 06/08/2023 12:04 PM EDT LAB[facility]ATORY [facility] Comment:The use of HbA1c to monitor glycemic status is based on normal hemoglobin and HbA composition. This test should not be used in patients with abnormal hemoglobin that affects the half life of the red blood cell or the in vivo glycation rates. Estimated Average Glucose 214(H) <126 mg/dL 06/08/2023 12:04 PM EDT LAB[facility]ATORY [facility] Blood Venous blood specimen / Unknown Venipuncture / Unknown 06/08/2023 5:36 AM EDT 06/08/2023 5:55 AM EDT Raleigh Preciado MD LAB BLOOD ORDERABLES Performing Organization Address City/[facility]/ZIP Co de Phone Number LABORATORY [facility] [address] [place] [address] * (ABNORMAL) GLUCOSE METER, POINT OF CARE (06/07/2023 9:33 PM EDT) Glucose Meter 210(H) 70 - 120 mg/dL 06/07/2023 11:24 PM EDT [facility] [employer] [facility] Blood Whole blood specimen / Unknown 06/07/2023 9:33 PM EDT 06/07/2023 11:24 PM EDT Marino Trotter MD LAB POINT OF CARE T EST DOCKED DEVICE UNSOLICITED RESULTS Performing Organization Address [facility] Co de Phone Number [facility] [address] [place] [address] * (ABNORMAL) GLUCOSE METER, POINT OF CARE (06/07/2023 4:46 PM EDT) Glucose Meter 176(H) 70 - 120 mg/dL 06/07/2023 4:55 PM EDT [facility] [employer] [facility] Blood Whole blood specimen / Unknown 06/07/2023 4:46 PM EDT 06/07/2023 4:55 PM EDT Marino Trotter MD LAB POINT OF CARE T EST DOCKED DEVICE UNSOLICITED RESULTS Performing Organization Address [facility] Co de Phone Number [facility] [address] [place] [address] * SARS-COV-2 (COVID-19), NAAT (06/07/2023 12:04 PM EDT) SARS-CoV-2 (COVID-19) Result Negative Negative 06/07/2023 1:07 PM EDT LAB[facility]ATORY [facility] Comment: 2019 Novel Coronavirus not detected. This express test was developed and its performance characteristics determined by [employer]. It has not been cleared or approved by the U.S. Food and Drug Administration (FDA). FDA does not require this test to go thru premarket FDA review. This test is used for clinical purposes. It should not be regarded as investigational or for research. This laboratory is certified under the Clinical Laboratory Improvement Amendments (CLIA) as qualified to perform high complexity clinical laboratory testing. This test is a nucleic acid amplification test (NAAT), a reverse transcriptase polymerase chain reaction (RT-PCR) test, or a Centers for Disease Control- acceptable equivalent. The test is performed in a high complexity Clinical Laboratory Improvement Amendments-(CLIA) certified laboratory. The test is acceptable for SARS-CoV-2 diagnosis, surveillance, and travel within the [place] and to most countries. Please check with local testing authorities about requirements before travel. The validation of bronchial specimens, tracheal aspirates, and sputum for this assay was developed and performance characteristics determined by [employer]. The validation of alternate specimen types has not been cleared or approved by the U.S. Food and Drug Administration (FDA). It has been determined that such clearance is not necessary. Upper Respiratory Mid-turbinate nasal swab / Unknown Non-blood Collection / Unknown 06/07/2023 12:04 PM EDT 06/07/2023 12:15 PM EDT Aba SWANN LAB MICRO - GENERA L ORDERABLES LABORATORY [facility] [address] [place] [address] * (ABNORMAL) GLUCOSE METER, POINT OF CARE (06/07/2023 11:08 AM EDT) [facility] Signature Glucose Meter 187(H) 70 - 120 mg/dL 06/07/2023 11:12 AM EDT [facility] Blood Whole blood specimen / Unknown 06/07/2023 11:08 AM EDT 06/07/2023 11:12 AM EDT Nnamdi King MD LAB POINT OF CARE TE ST DOCKED DEVICE UNSOLICITED RESULTS [facility] [address] [place] [address] * (ABNORMAL) GLUCOSE METER, POINT OF CARE (06/07/2023 9:11 AM EDT) Pathologist [facility] Glucose Meter 153(H) 70 - 120 mg/dL 06/07/2023 9:13 AM EDT [facility] Blood Whole blood specimen / Unknown 06/07/2023 9:11 AM EDT 06/07/2023 9:13 AM EDT Nnamdi King MD LAB POINT OF CARE TE ST DOCKED DEVICE UNSOLICITED RESULTS [facility] [address] [place] [address] * TYPE AND SCREEN (06/07/2023 8:43 AM EDT) Pathologist [facility] ABO A 06/07/2023 9:54 AM EDT LABORATORY [facility] BLOOD BANK Rh Positive 06/07/2023 9:54 AM EDT LABORATORY [facility] BLOOD BANK Red Blood Cell Antibody Screen Negative 06/07/2023 9:54 AM EDT LABORATORY [facility] BLOOD BANK Specimen Expiration Date 06/10/2023 23:59 06/07/2023 9:54 AM EDT LABORATORY [facility] BLOOD BANK Blood Venous blood specimen / Unknown Venipuncture / Unknown 06/07/2023 8:43 AM EDT 06/07/2023 8:49 AM EDT Erick Pruitt MD LAB BLOOD BANK T EST ORDERABLES LABORATORY [facility] BLOOD BANK [address] [place] [address] * (ABNORMAL) CBC (06/07/2023 8:43 AM EDT) Pathologist [facility] WBC 12.54(H) 4.00 - 10.80 K/uL 06/07/2023 8:57 AM EDT [facility] RBC 4.78 3.85 - 5.15 M/uL 06/07/2023 8:57 AM EDT [facility] HGB 14.0 12.0 - 15.3 g/dL 06/07/2023 8:57 AM EDT [facility] HCT 43.5 36.0 - 45.2 % 06/07/2023 8:57 AM EDT [facility] MCV 91.0 81.5 - 97.5 fL 06/07/2023 8:57 AM EDT [facility] MCH 29.3 27.0 - 34.0 pg 06/07/2023 8:57 AM EDT [facility] MCHC 32.2 32.0 - 36.0 g/dL 06/07/2023 8:57 AM EDT [facility] RDW 14.7 11.5 - 15.5 % 06/07/2023 8:57 AM EDT [facility] PLT 300 140 - 400 K/uL 06/07/2023 8:57 AM EDT [facility] MPV 10.5 6.6 - 11.1 fL 06/07/2023 8:57 AM EDT [facility] nRBCs 0 <=0 /100 WBCs 06/07/2023 8:57 AM EDT LABORATORY [facility] Blood Venous blood specimen / Unknown Venipuncture / Unknown 06/07/2023 8:43 AM EDT 06/07/2023 8:50 AM EDT Aba SWANN LAB BLOOD ORDERABL ES LABORATORY [facility] [address] [place] [address] * (ABNORMAL) BASIC METABOLIC PANEL (06/07/2023 8:43 AM EDT) BUN 17 6 - 20 mg/dL 06/07/2023 9:46 AM EDT [facility] Creatinine 0.8 0.5 - 1.0 mg/dL 06/07/2023 9:46 AM EDT [facility] Estimated Glomerular Filtration Rate 77 >=60 mL/min 06/07/2023 9:46 AM EDT [facility] Comment:eGFR is calculated b ased on the CKD-EPI 2020 equation Sodium 135 135 - 146 mmol/L 06/07/2023 9:46 AM EDT [facility] Potassium 4.6 3.5 - 5.1 mmol/L 06/07/2023 9:46 AM EDT [facility] Chloride 100 98 - 107 mmol/L 06/07/2023 9:46 AM EDT [facility] CO2 26 22 - 32 mmol/L 06/07/2023 9:46 AM EDT [facility] Anion Gap 9 7 - 15 mmol/L 06/07/2023 9:46 AM EDT [facility] Glucose 168(H) 70 - 120 mg/dL 06/07/2023 9:46 AM EDT [facility] Calcium 10.5(H) 8.4 - 10.2 mg/dL 06/07/2023 9:46 AM EDT LABORATORY C Blood Venous blood specimen / Unknown Venipuncture / Unknown 06/07/2023 8:43 AM EDT 06/07/2023 8:50 AM EDT Aba SWANN LAB BLOOD ORDERABL ES Performing Organization Address City/[facility]/ZIP Co de Phone Number LABORATORY [facility] [address] [place] [address] * PREPARE PACKED RED BLOOD CELLS (06/07/2023 8:10 AM EDT) Unit Product Code [id number] LABORATORY [facility] BLOOD B[facility] Unit Number [id number] LABO RATORY [facility] BLOOD B[facility] Unit ABO A LABORATORY [facility] BLOOD BANK Unit Rh POS LABORATORY [facility]LOOD BANK Unit Crossmatch Compatible LABORATORY [facility] BLOOD BANK Unit Status RE LABORATO RY [facility] BLOOD BANK Unit Blood Type APOS LABORATORY [facility] BLOOD BANK Unit Expiration [id number] LABORATORY [facility] BLOOD BANK Unit Barcode [id number] [facility] 06/07/2023 8:10 AM EDT Sandy Granados MD BLD BANK PRODUCT ORDERABLES LABORATORY [facility] BLOOD BANK [address] [place] [address] documented in this encounter Visit Diagnoses Diagnosis S/P AKA (above knee amputation), left (HCC)- Primary 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 of other part of foot (HCC) Atherosclerotic PVD with ulceration (HCC) Atherosclerosis of [place] arteries of the extremities with ulceration Chest pain Chest pain, unspecified Centrilobular emphysema (HCC) Other emphysema Bilateral carotid artery stenosis Occlusion and stenosis of multiple and bilateral precerebral arteries without mention of cerebral infarction Chronic ischemic heart disease Chronic ischemic heart disease, unspecified COPD, group D, by GOLD 2017 classification ([facility]) DM type 2 with diabetic peripheral neuropathy ([facility]) Type II or unspecified type diabetes mellitus with neurological manifestations, not stated as uncontrolled History of cardiac arrest Personal history of sudden cardiac arrest Hypertensive heart disease with acute on chronic diastolic congestive heart failure ([facility]) S/P femoral-femoral bypass surgery Moderate mitral regurgitation Mitral valve disorders documented in this encounter Administered Medications Inactive Administered Medications - up to 3 most recent administrations Medication Order MAR Action Action Date Dose Rate Site Acetaminophen (Tylenol) tab 975 mg 975 mg, Oral, Q8H, First dose on Tue06/08/23 at 1400, Until Discontinued, Maximum of 4 grams (4000 mg) per day. Given 06/14/2023 6:32 AM EDT 975 mg Given 06/13/2023 9:19 PM EDT 975 mg Given 06/13/2023 1:27 PM EDT 975 mg aspirin chew tab 81 mg 81 mg, Oral, Daily(AM), First dose on Tue06/08/23 at 0900, Until Discontinued Given 06/14/2023 8:49 AM EDT 81 mg Given 06/13/2023 8:59 AM EDT 81 mg Given 06/12/2023 8:55 AM EDT 81 mg Baclofen (Lioresal) tab 5 mg 5 mg, Oral, Q8H PRN Muscle spasms, Starting on Tue06/08/23 at 0901, Until Tue06/14/23 at 1631 Given 06/13/2023 11: 39 PM EDT 5 mg Given 06/13/2023 12:03 PM EDT 5 mg Given 06/08/2023 9:10 PM EDT 5 mg Bisacodyl (Dulcolax) supp 10 mg 10 mg, Rectal, ONCE, On 06/11/23 at 1045, For 1 dose Given 06/11/2023 11:04 AM EDT 10 mg Bisacodyl (Dulcolax) tab 5 mg 5 mg, Oral, ONCE, On Delma 06/09/23 at 1400, For 1 dose, This med should NOT be Crushed or Chewed Given 06/09/2023 1:30 PM EDT 5 mg Bisacodyl (Dulcolax) tab 5 mg 5 mg, Oral, BID (.AM/PM), First dose on Tue06/10/23 at 2100, Until Discontinued, This med should NOT be Crushed or Chewed Given 06/11/2023 8:21 AM EDT 5 mg Given 06/10/2023 9:17 PM EDT 5 mg Bisacodyl (Dulcolax) tab 5 mg 5 mg, Oral, Daily(AM), First dose (after last modification) on Tue06/13/23 at 0900, Until Discontinued, This med should NOT be Crushed or Chewed Given 06/14/2023 8:49 AM EDT 5 mg Given 06/13/2023 8:58 AM EDT 5 mg busPIRone (Buspar) tab 15 mg 15 mg, Oral, BID (.AM/PM), First dose on Tue06/07/23 at 2100, Until Discontinued Given 06/14/2023 8:52 AM EDT 15 mg Given 06/13/2023 9:41 PM EDT 15 mg Given 06/13/2023 8:59 AM EDT 15 mg calcium CARBonate (Tums E-X) tab CHEW 750 mg 750 mg, Oral, BID PRN Indigestion, Starting on Tue06/07/23 at 1127, Until Tue06/14/23 at 1631 cholecalciferol (VIT D3) (Vitamin D3) tab 1,000 Units 1,000 Units, Oral, Daily(AM), First dose on Tue06/08/23 at 0900, Until Discontinued Given 06/14/2023 8:50 AM EDT 1,000 Units Given 06/13/2023 8:58 AM EDT 1,000 Units Given 06/12/2023 8:56 AM EDT 1,000 Units clopidogrel (pLAVix) tab 75 mg 75 mg, Oral, Daily(AM), First dose (after last modification) on Tue06/08/23 at 0900, Until Discontinued Given 06/14/2023 8:50 AM EDT 75 mg Given 06/13/2023 8:59 AM EDT 75 mg Given 06/12/2023 8:56 AM EDT 75 mg dextrose 50% inj 25 mL 25 mL, IV Push, PRN Hypoglycemia, Other, For blood glucose 54 - 69 mg/dL or 70 - 100 mg/dL with symptoms AND patient is unresponsive, NPO, OR unable to swallow, Starting on Tue06/07/23 at 1126, Until Tue06/14/23 at 1631, Administer IV. Recheck blood glucose after 15 minutes. Notify provider. dextrose 50% inj 50 mL 50 mL, IV Push, PRN Hypoglycemia, Other, For blood glucose below 54 mg/dL AND patient unresponsive, NPO, OR unable to swallow, Starting on Tue06/07/23 at 1126, Until Tue06/14/23 at 1631, Administer IV. Recheck blood glucose in 15 minutes. Notify provider. DULoxetine (Cymbalta) DR cap 30 mg 30 mg, Oral, BID (.AM/PM), First dose on Tue06/07/23 at 2100, Until Discontinued Given 06/14/2023 8:49 AM EDT 30 mg Given 06/13/2023 9:19 PM EDT 30 mg Given 06/13/2023 8:59 AM EDT 30 mg Enoxaparin (Lovenox) inj 40 mg 40 mg, Subcutaneous, Daily(AM), First dose on Tue06/08/23 at 0900, Until Discontinued, If patient is on warfarin, inform provider if daily INR value is 2 or greater!, , On hold since Tue06/10/2023 at 0811 until manually unheld Given 06/09/2023 8:50 AM EDT 40 mg Ab domen Left Upper Given 06/08/2023 8:50 AM EDT 40 mg Ab domen Right Upper Enoxaparin (Lovenox) inj 40 mg 40 mg, Subcutaneous, Daily(AM), First dose (after last reorder) on Tue06/11/23 at 0900, Until Discontinued, If patient is on warfarin, inform provider if daily INR value is 2 or greater! Given 06/14/2023 8:50 AM EDT 40 mg Abdomen Right Lower Given 06/13/2023 8:53 AM EDT 40 mg Ab domen Left Upper Given 06/12/2023 8:57 AM EDT 40 mg Ab domen Right Upper fentaNYL (PF) inj 25 mcg 25 mcg, IV Push, Q5 MIN PRN Pain, Moderate, Starting on Tue06/07/23 at 0939, Until Tue06/07/23 at 1411, Administer up to a total of 100mcg. Administer only postop in PACU When given IV Push its recommended that the dose be given over 3 to 5 minutes., PACU Given 06/07/2023 11:25 AM EDT 25 mcg fentaNYL (PF) inj 50 mcg 50 mcg, IV Push, Q5 MIN PRN Other, sedation for block placement, Starting on Tue06/07/23 at 0753, Until Tue06/11/23 at 0759, For 2 doses, Maximum 100 mcg. Preop Anesthesia Block When given IV Push its recommended that the dose be given over 3 to 5 minutes., Pre-Op Given 06/07/2023 8:47 AM EDT 50 mcg Awxirqtzfof-Eiqvqxspzaqi-Soipehghis (Trelegy Ellipta) 100-62.5-25 MCG/ACT inhaler 1 Puff 1 Puff, Inhalation, RESPDAILY, First dose on Tue06/08/23 at 0800, Until Discontinued, NURSING TO FOLLOW PATIENT WITH MDI/DPI ADMINISTRATION Given 06/14/2023 9:04 AM EDT 1 Puff Given 06/13/2023 8:52 AM EDT 1 Puff Given 06/12/2023 8:53 AM EDT 1 Puff Gabapentin (Neurontin) cap 100 mg 100 mg, Oral, HS, First dose on Tue06/07/23 at 2200, Until Discontinued Given 06/11/2023 9:09 PM EDT 100 mg Given 06/10/2023 9:17 PM EDT 100 mg Given 06/09/2023 9:06 PM EDT 100 mg Gabapentin (Neurontin) cap 100 mg 100 mg, Oral, BID (.AM/PM), First dose (after last modification) on Tue06/12/23 at 0930, Until Discontinued Given 06/14/2023 8:50 AM EDT 100 mg Given 06/13/2023 9:19 PM EDT 100 mg Given 06/13/2023 8:59 AM EDT 100 mg glucagon (Glucagen) inj 1 mg 1 mg, Intramuscular, PRN Hypoglycemia, Other, If patient is unresponsive, or NPO and has no IV access, Starting on Tue06/07/23 at 1126, Until Tue06/14/23 at 1631, NPO and no IV access with either 1) blood glucose less than 100 mg/dL and symptomatic OR 2) blood glucose less than 70 mg/dL and asymptomatic Glucose (Glutose 15) 40 % gel 15 g of glucose 15 g of glucose, Oral, PRN Hypoglycemia (low sugar), Other, For blood glucose 54 - 69 mg/dL or 70 - 100 mg/dL with symptoms AND patient alert WITH difficulty chewing/swallowing, Starting on Tue06/07/23 at 1126, Until Tue06/14/23 at 1631, Administer gel. Recheck blood glucose after 15 minutes. Notify provider. 37.5 gram tube = 15 grams glucose = 1 each Glucose (Glutose 15) 40 % gel 30 g of glucose 30 g of glucose, Oral, PRN Hypoglycemia (low sugar), Other, For blood glucose below 54 mg/dL AND patient alert WITH difficulty chewing/swallowing, Starting on Tue06/07/23 at 1126, Until Tue06/14/23 at 1631, Administer gel. Recheck blood glucose after 15 minutes. Notify provider. 37.5 gram tube = 15 grams glucose = 1 each glucose chew tab 16 g 16 g, Oral, PRN Hypoglycemia, Other, For blood glucose 54 - 69 mg/dL or 70 - 100 mg/dL with symptoms and patient alert without difficulty chewing/swallowing., Starting on Tue06/07/23 at 1126, Until Tue06/14/23 at 1631 HYDROmorphone (Dilaudid) inj 0.2 mg 0.2 mg, IV Push, ONCE, On Tue06/08/23 at 1115, For 1 dose Given 06/08/2023 11:14 AM EDT 0.2 mg HYDROmorphone (Dilaudid) inj 0.5 mg 0.5 mg, IV Push, Q4H PRN Pain, Breakthrough, Starting on Tue06/08/23 at 1208, Until Tue06/11/23 at 1004 Given 06/11/2023 4:36 AM EDT 0.5 mg Given 06/11/2023 12:42 AM EDT 0.5 mg Given 06/10/2023 7:41 PM EDT 0.5 mg HYDROmorphone (Dilaudid) inj 0.5 mg 0.5 mg, IV Push, ONCE, On Delma 06/09/23 at 0345, For 1 dose Given 06/09/2023 3:29 AM EDT 0.5 mg HYDROmorphone (Dilaudid) inj 0.5 mg 0.5 mg, IV Push, ONCE, On Tue06/10/23 at 2230, For 1 dose Given 06/10/2023 10:00 PM EDT 0.5 mg HYDROmorphone (Dilaudid) inj 1 mg 1 mg, IV Push, Q4H PRN Pain, Breakthrough, Starting on 06/11/23 at 1003, Until Tue06/13/23 at 1651 Given 06/13/2023 3:01 PM EDT 1 mg Given 06/13/2023 5:27 AM EDT 1 mg Given 06/12/2023 7:45 PM EDT 1 mg HYDROmorphone (Dilaudid) tab 2 mg 2 mg, Oral, Q4H PRN Pain, Breakthrough, Starting on Tue06/13/23 at 1651, Until Tue06/14/23 at 1631 Given 06/14/2023 9:26 AM EDT 2 mg Given 06/13/2023 11:39 PM EDT 2 mg hydrOXYzine (Atarax) tab 10 mg 10 mg, Oral, TID PRN Anxiety, Starting on Tue06/08/23 at 0900, Until Tue06/14/23 at 1631 Given 06/10/2023 9:21 PM EDT 10 mg Given 06/08/2023 9:10 PM EDT 10 mg insulin aspart (NovoLOG) inj Subcutaneous, W/MEALS AND HS, First dose on Tue06/07/23 at 1200, Until Discontinued, MEDIUM DOSE, (Usual starting dose) Insulin sensitivity factor (ISF) = 40 Serum Blood Sugar less than 70 mg/dl (obtain STAT lab blood sugar and notify provider); 151 - 190 mg/dl (1 units); 191 - 230 mg/dl (2 units); 231 - 270 mg/dl (3 units); 271 - 310 mg/dl (4 units); 311 - 350 mg/dl (5 units); 351 - 390 mg/dl (6 units); 391 mg/dl and greater (call provider), Correctional insulin may be given if the patient is NPO. Given 06/14/2023 9:09 AM EDT 1 Units Arm Right Upper Given 06/13/2023 9:19 PM EDT 2 Units Ar m Left Upper Given 06/13/2023 12:03 PM EDT 2 Units A bdomen Right Upper Insulin Glargine (Lantus) inj 5 Units 5 Units, Subcutaneous, PMINSULIN, First dose on Tue06/07/23 at 1700, Until Discontinued Given 06/07/2023 5:44 PM EDT 5 Units Arm R ight Upper Insulin Glargine (Lantus) inj 7 Units 7 Units, Subcutaneous, PMINSULIN, First dose (after last modification) on Tue06/08/23 at 1700, Until Discontinued Given 06/13/2023 5:26 PM EDT 7 Units Arm L eft Upper Given 06/12/2023 5:19 PM EDT 7 Units Ar m Right Upper Given 06/11/2023 4:32 PM EDT 7 Units Ar m Left Upper Lidocaine (Aspercreme) 4 % patch 1 Patch 1 Patch, Transdermal, Daily(AM), First dose on Tue06/07/23 at 1845, Until Discontinued, Apply patch for 12 hours then remove for 12 hours! Remove any Lidocaine patches the patient may currently be wearing prior to applying the new patch Patch Applied 06/14/2023 9:14 AM EDT 1 Patch Back Middle Patch Applied 06/13/2023 9:03 AM EDT 1 Patch Back Middle Patch Applied 06/12/2023 8:55 AM EDT 1 Patch Back Middle Lidocaine (Aspercreme) 4 % patch 1 Patch 1 Patch, Transdermal, Daily(AM), First dose on Tue06/07/23 at 1845, Until Discontinued, Apply patch for 12 hours then remove for 12 hours! Remove any Lidocaine patches the patient may currently be wearing prior to applying the new patch Patch Applied 06/14/2023 8:50 AM EDT 1 Patch Arm Left Upper Patch Applied 06/13/2023 8:54 AM EDT 1 Patch Back Middle Patch Applied 06/12/2023 8:54 AM EDT 1 Patch Back Left Loratadine (Claritin) tab 10 mg 10 mg, Oral, Daily(AM), First dose on Tue06/08/23 at 0900, Until Discontinued Given 06/14/2023 8:49 AM EDT 10 mg Given 06/13/2023 8:59 AM EDT 10 mg Given 06/12/2023 8:55 AM EDT 10 mg metoprolol succinate XL (toPROL XL) tab 12.5 mg 12.5 mg, Oral, Daily(AM), First dose on Tue06/08/23 at 0900, Until Discontinued, Hold for HR less than 60 or SBP below 100 and notify service if dose is held This med should NOT be Crushed or Chewed. Given 06/14/2023 8:49 AM EDT 12.5 mg Given 06/13/2023 8:59 AM EDT 12.5 mg Given 06/12/2023 8:56 AM EDT 12.5 mg midazolam (Versed) 2 MG/2ML inj 1 mg 1 mg, IV Push, Q2 MIN PRN sedation for block placement , Starting on Tue06/07/23 at 0753, Until Tue06/11/23 at 1142, For 2 doses, Preop Anesthesia Block, Pre-Op Given 06/07/2023 8:47 AM EDT 1 mg naloxone (Narcan) 0.4 MG/ML inj 0.4 mg 0.4 mg, IV Push, PRN Other, RR<8 related to narcotics, notify provider if given, Starting on Tue06/11/23 at 1313, Until Tue06/14/23 at 1631 Nicotine (Nicoderm CQ) 21 MG/24HR patch 1 Patch 1 Patch, Transdermal, Daily(AM), First dose on Tue06/07/23 at 1745, Until Discontinued, Do NOT cut the patch. Remove any Nicotine patches the patient may currently be wearing prior to applying the new patch. Place on clean hairless area. Remove for patient showers. WASTE INFO: Return packaging and waste medication in zip lock bag to pharmacy - [facility] container. Patch Applied 06/13/2023 8:57 AM EDT 1 Patch Arm Right Upper Patch Applied 06/12/2023 8:54 AM EDT 1 Patch Arm Left Upper Patch Applied 06/11/2023 8:21 AM EDT 1 Patch Arm Left Upper ondansetron (Zofran) inj 4 mg 4 mg, IV Push, Q6H PRN Nausea, Starting on Tue06/07/23 at 0939, Until Tue06/07/23 at 1411, For 1 day, Administer only during the first hour post-op in PACU., PACU Given 06/07/2023 11:19 AM EDT 4 mg ondansetron (Zofran) tab 4 mg 4 mg, Oral, Q8H PRN Nausea, Vomiting, Starting on [place] 06/09/23 at 1221, Until e 06/14/23 at 1631 Given 06/14/2023 9:26 AM EDT 4 mg Given 06/13/2023 5:27 AM EDT 4 mg Given 06/12/2023 7:45 PM EDT 4 mg oxyCODONE (Oxy IR) tab 10 mg 10 mg, Oral, Q4H PRN Pain, Severe, Starting on Tue06/07/23 at 1141, Until Tue06/14/23 at 1631 Given 06/14/2023 6:3 2 AM EDT 10 mg Given 06/14/2023 1:45 AM EDT 10 mg Given 06/13/2023 9:19 PM EDT 10 mg oxyCODONE (Oxy IR) tab 5 mg 5 mg, Oral, Q6H PRN Pain, Moderate, Starting on Tue06/07/23 at 1141, Until Tue06/14/23 at 1631 oxygen GAS Inhalation, OXYGEN, First dose on Tue06/07/23 at 0830, Until Discontinued, Device/Managed by: Low Flow Device, Goal SPO2 (%): 91-95, Starting Device: Nasal Cannula, Initial Flow Rate (LPM): 2, Lowest Support: Nasal Cannula: Flow 0-6 LPM. Titrate up/down by 1 LPM., Titration Interval: Q2 minutes and as needed., Notify Provider: For sudden DECREASE in resting SPO2 to less than 85% and when escalating delivery device., Wean patient off Oxygen when the oxygen saturation is greater than or equal to 93% Oxygen On 06/12/2023 4:00 PM EDT 2 L/min(Oxygen) Oxygen On 06/12/2023 12:00 AM EDT Oxygen On 06/11/2023 12:00 AM EDT oxygen GAS Inhalation, OXYGEN, First dose on Tue06/07/23 at 1015, Until Discontinued, Device/Managed by: Low Flow Device, Goal SPO2 (%): 91-95, Starting Device: Nasal Cannula, Initial Flow Rate (LPM): 2, Lowest Support: Nasal Cannula: Flow 0-6 LPM. Titrate up/down by 1 LPM., Higher Support: Non-Rebreather (NRB) Mask: Minimum of 10 LPM. Titrate to maintain bag inflation., Titration Interval: Q2 minutes and as needed., Notify Provider: Other, Notify Provider [other]: If SpO2 less than 88% or NOT maintaining SpO2 greater than 92% notify physician immediately., Until awake OR SpO2 greater than 95% for 15 minutes, then Titrate O2 flow rate down to maintain SpO2 greater than 92% If SpO2 is less than 88% place patient on NRB mask at 10 LPM Oxygen On 06/07/2023 12:06 PM EDT 1 L/min(Oxygen) pantoprazole (Protonix) tab 40 mg 40 mg, Oral, BID (.AM/PM), First dose on Tue06/07/23 at 2100, Until Discontinued, This med should NOT be Crushed or Chewed Given 06/14/2023 8:49 AM EDT 40 mg Given 06/13/2023 9:19 PM EDT 40 mg Given 06/13/2023 8:59 AM EDT 40 mg Polyethylene Glycol 3350 (Miralax) oral powder 17 g 17 g (1 Packet), Oral, Daily(AM), First dose on Tue06/09/23 at 0900, Until Discontinued, Mix in 8 oz of water, juice, soda, coffee, or tea. Given 06/11/2023 8:21 AM EDT 17 g Given 06/10/2023 9:37 AM EDT 17 g Given 06/09/2023 8:56 AM EDT 17 g Polyethylene Glycol 3350 (Miralax) oral powder 17 g 17 g (1 Packet), Oral, BID (0900,2100), First dose (after last modification) on Tue06/11/23 at 1100, Until Discontinued, Mix in 8 oz of water, juice, soda, coffee, or tea. Given 06/11/2023 11:03 AM EDT 17 g Polyethylene Glycol 3350 (Miralax) oral powder 17 g 17 g (1 Packet), Oral, Daily(AM), First dose (after last modification) on Tue06/13/23 at 0900, Until Discontinued, Mix in 8 oz of water, juice, soda, coffee, or tea. Given 06/13/2023 8:57 AM EDT 17 g ROPivacaine 2 mg/mL (0.2%) 200 mL PERINEURAL infusion Perineural, at 8 mL/hr, Nerve Block Sciatic ; Side Right Expires 24 hours after spiking! , CONTINUOUS, Starting on Tue06/07/23 at 1000, Until Tue06/08/23 at 1355 New Bag 06/08/2023 12:37 PM EDT 8 mL/hr New Bag 06/07/2023 11:33 AM EDT 8 mL/hr ROPivacaine 2 mg/mL (0.2%) 200 mL PERINEURAL infusion Perineural, at 10 mL/hr, Nerve Block Sciatic ; Side Right Expires 24 hours after spiking! , CONTINUOUS, Starting on Tue06/08/23 at 1430, Until Tue06/10/23 at 0910 New Bag 06/10/2023 6:16 AM EDT 10 mL/hr New Bag 06/09/2023 12:43 PM EDT 10 mL/hr Rate Change 06/09/2023 11:17 AM EDT 10 mL/hr senna-docusate (Senokot-S) 1 Tablet 1 Tablet, Oral, Daily(AM), First dose on Tue06/09/23 at 0900, Until Discontinued Given 06/09/2023 8:56 AM EDT 1 Ta blet senna-docusate (Senokot-S) 1 Tablet 1 Tablet, Oral, BID (.AM/PM), First dose (after last modification) on Tue06/09/23 at 2100, Until Discontinued Given 06/10/2023 9:36 AM EDT 1 Tablet Given 06/09/2023 9:05 PM EDT 1 Tablet senna-docusate (Senokot-S) 2 Tablet 2 Tablet, Oral, BID (.AM/PM), First dose (after last modification) on Tue06/10/23 at 2100, Until Discontinued Given 06/11/2023 8:21 AM EDT 2 Tablets Given 06/10/2023 9:17 PM EDT 2 Tablets senna-docusate (Senokot-S) 2 Tablet 2 Tablet, Oral, BID (.AM/PM), First dose (after last modification) on Tue06/12/23 at 2100, Until Discontinued Given 06/14/2023 8:49 AM EDT 2 Tablets Given 06/13/2023 9:18 PM EDT 2 Tablets Given 06/13/2023 8:58 AM EDT 2 Tablets sodium chloride 0.9 % flush/inj 3 mL 3 mL, IV Push, PRN Other, Line Patency, Starting on Tue06/07/23 at 1125, Until Tue06/14/23 at 1631, Do not flush if lock, PICC, or central line not in place, IV infusing or unable to flush Sodium Zirconium Cyclosilicate (Lokelma) oral powder 15 g 15 g, Oral, ONCE, On Tue06/13/23 at 1130, For 1 dose, Empty entire contents of the packet(s) into a glass with 45 mL of water. Stir well and drink immediately; if powder remains in the glass, add water, stir and drink immediately; repeat until no powder remains. Administer other oral medications at least 2 hours before or 2 hours after dose. Hold dose and notify provider if K is less than 3.5 mmol/L Given 06/13/2023 12:05 PM EDT 15 g Sucralfate (Carafate) tab 1 g 1 g, Oral, ACHS, First dose on Tue06/07/23 at 1215, Until Discontinued Given 06/14/2023 11:21 AM EDT 1 g Given 06/14/2023 6:32 AM EDT 1 g Given 06/13/2023 9:19 PM EDT 1 g documented in this encounter Active and Recently Administered Medications Times are shown in EDT. Scheduled Medication Order 06/12/2023 06/13/2023 06/14/2023 Acetaminophen (Tylenol) tab 975 mg 975 mg, Oral, Q8H, First dose on Tue06/08/23 at 1400, Until Discontinued, Maximum of 4 grams (4000 mg) per day. 0606 (Given - Provider: Dick Carver RN)1406 (Given - Provider: Santino Teran RN)4403 (Given - Provider: Ginger Rausch RN) 0521 (Given - Provider: Ginger Rausch RN)1327 (Given - Provider: Dawna Lopez, LALITHA)2119 (Given - Provider: Ginger Rausch RN) 0632 (Given - Provider: Ginger Rausch RN) aspirin chew tab 81 mg 81 mg, Oral, Daily(AM), First dose on Tue06/08/23 at 0900, Until Discontinued 0855 (Given - Provider: Santino Teran RN) 0859 (Given - Provider: Dawna Lopez RN) 0849 (Given - Provider: Prince Ferguson RN) Bisacodyl (Dulcolax) tab 5 mg 5 mg, Oral, Daily(AM), First dose (after last modification) on Tue06/13/23 at 0900, Until Discontinued, This med should NOT be Crushed or Chewed 0858 (Given - Provider: Dawna Lopez RN) 0849 (Given - Provider: Prince Ferguson RN) busPIRone (Buspar) tab 15 mg 15 mg, Oral, BID (.AM/PM), First dose on Tue06/07/23 at 2100, Until Discontinued 0857 (Given - Provider: Santino Teran RN)2113 (Given - Provider: Ginger Rausch RN) 0859 (Given - Provider: Dawna Lopez RN)2141 (Given - Provider: Ginger Rausch RN) 0852 (Given - Provider: Prince Ferguson RN) cholecalciferol (VIT D3) (Vitamin D3) tab 1,000 Units 1,000 Units, Oral, Daily(AM), First dose on Tue06/08/23 at 0900, Until Discontinued 0856 (Given - Provider: Santino Teran RN) 0858 (Given - Provider: Dawna Lopez RN) 0850 (Given - Provider: Prince Ferguson RN) clopidogrel (pLAVix) tab 75 mg 75 mg, Oral, Daily(AM), First dose (after last modification) on Tue06/08/23 at 0900, Until Discontinued 0856 (Given - Provider: Santino Teran RN) 0859 (Given - Provider: Dawna Lopez RN) 0850 (Given - Provider: Prince Ferguson, LALITHA) DULoxetine (Cymbalta) DR cap 30 mg 30 mg, Oral, BID (.AM/PM), First dose on Tue06/07/23 at 2100, Until Discontinued 0856 (Given - Provider: Santino Teran RN)2112 (Given - Provider: Ginger Rausch, LALITHA) 0859 (Given - Provider: Dawna Lopez, LALITHA)2118 (Given - Provider: Ginger Rausch, LALITHA) 0849 (Given - Provider: Prince Ferguson RN) Enoxaparin (Lovenox) inj 40 mg 40 mg, Subcutaneous, Daily(AM), First dose (after last reorder) on Tue06/11/23 at 0900, Until Discontinued, If patient is on warfarin, inform provider if daily INR value is 2 or greater! 0857 (Given - Provider: Santino Teran RN) 0853 (Given - Provider: Dawna Lopez, LALITHA) 0850 (Given - Provider: Prince Ferguson RN) Fluticasone-Umeclidinium -Vilanterol (Trelegy Ellipta) 100-62.5-25 MCG/ACT inhaler 1 Puff 1 Puff, Inhalation, RESPDAILY, First dose on Tue06/08/23 at 0800, Until Discontinued, NURSING TO FOLLOW PATIENT WITH MDI/DPI ADMINISTRATION 0853 (Given - Provider: Santino Teran RN) 0852 (Given - Provider: Dawna Lopez, LALITHA) 0904 (Given - Provider: Prince Ferguson, LALITHA) Gabapentin (Neurontin) cap 100 mg 100 mg, Oral, BID (.AM/PM), First dose (after last modification) on Tue06/12/23 at 0930, Until Discontinued 1027 (Given - Provider: Santino Teran RN)2112 (Given - Provider: Ginger Rausch, LALITHA) 0859 (Given - Provider: Dawna Lopez, LALITHA)2118 (Given - Provider: Ginger Rausch, LALITHA) 0850 (Given - Provider: Prince Ferguson, LALITHA) insulin aspart (NovoLOG) inj Subcutaneous, W/MEALS AND HS, First dose on Tue06/07/23 at 1200, Until Discontinued, MEDIUM DOSE, (Usual starting dose) Insulin sensitivity factor (ISF) = 40 Serum Blood Sugar less than 70 mg/dl (obtain STAT lab blood sugar and notify provider); 151 - 190 mg/dl (1 units); 191 - 230 mg/dl (2 units); 231 - 270 mg/dl (3 units); 271 - 310 mg/dl (4 units); 311 - 350 mg/dl (5 units); 351 - 390 mg/dl (6 units); 391 mg/dl and greater (call provider), Correctional insulin may be given if the patient is NPO. 0857 (Given - Provider: Santino Teran RN)1207 (Given - Provider: Santino Teran RN)1720 (Given - Provider: Santino Teran RN)2200 (No Insulin - Provider: Ginger Rausch RN - Reason: Parameter(s) Not Met) 0800 (Not Given - Provider: Dawna Lopez RN - Reason: Parameter(s) Not Met)1203 (Given - Provider: Dawna Lopez RN)1700 (No Insulin - Provider: Dawna Lopez RN - Reason: Parameter(s) Not Met)211 (Given - Provider: Ginger Rausch RN) 0909 (Given - Provider: Prince Ferguson RN)1200 (Due) Insulin Glargine (Lantus) inj 7 Units 7 Units, Subcutaneous, PMINSULIN, First dose (after last modification) on Tue06/08/23 at 1700, Until Discontinued 171 (Given - Provider: Santino Teran RN) 172 (Given - Provider: Dawna Lopez RN) Lidocaine (Aspercreme) 4 % patch 1 Patch 1 Patch, Transdermal, Daily(AM), First dose on Tue06/07/23 at 1845, Until Discontinued, Apply patch for 12 hours then remove for 12 hours! Remove any Lidocaine patches the patient may currently be wearing prior to applying the new patch 0855 (Patch Applied - Provider: Santino Teran RN)2054 (Patch Removed - Provider: Ginger Rausch RN) 09 (Patch Applied - Provider: Dawna Lopez RN)2102 (Patch Removed - Provider: Ginger Rausch RN) 0914 (Patch Applied - Provider: Prince Ferguson RN)1231 (Due: Patch Removed - Provider: Discharge, Physician - Comment: Time automatically adjusted from order being discontinued) Lidocaine (Aspercreme) 4 % patch 1 Patch 1 Patch, Transdermal, Daily(AM), First dose on Tue06/07/23 at 1845, Until Discontinued, Apply patch for 12 hours then remove for 12 hours! Remove any Lidocaine patches the patient may currently be wearing prior to applying the new patch 0854 (Patch Applied - Provider: Santino Teran RN)2053 (Patch Removed - Provider: Ginger Rausch RN) 0854 (Patch Applied - Provider: Dawna Lopez, LALITHA)2053 (Patch Removed - Provider: Ginger Rausch RN) 0850 (Patch Applied - Provider: Prince Ferguson RN)1231 (Due: Patch Removed - Provider: Discharge, Physician - Comment: Time automatically adjusted from order being discontinued) Loratadine (Claritin) tab 10 mg 10 mg, Oral, Daily(AM), First dose on Tue06/08/23 at 0900, Until Discontinued 0855 (Given - Provider: Santino Teran RN) 0859 (Given - Provider: Dawna Lopez RN) 0849 (Given - Provider: Prince Ferguson RN) metoprolol succinate XL (toPROL XL) tab 12.5 mg 12.5 mg, Oral, Daily(AM), First dose on Tue06/08/23 at 0900, Until Discontinued, Hold for HR less than 60 or SBP below 100 and notify service if dose is held This med should NOT be Crushed or Chewed. 0856 (Given - Provider: Santino Teran RN) 0859 (Given - Provider: Dawna Lopez, LALITHA) 0849 (Given - Provider: Prince Ferguson RN) Nicotine (Nicoderm CQ) 21 MG/24HR patch 1 Patch 1 Patch, Transdermal, Daily(AM), First dose on Tue06/07/23 at 1745, Until Discontinued, Do NOT cut the patch. Remove any Nicotine patches the patient may currently be wearing prior to applying the new patch. Place on clean hairless area. Remove for patient showers. WASTE INFO: Return packaging and waste medication in zip lock bag to pharmacy - [facility] container. 0853 (Patch Removed - Provider: Santino Teran RN)0854 (Patch Applied - Provider: Santino Teran RN) 0856 (Patch Removed - Provider: Dawna Lopez RN)0857 (Patch Applied - Provider: Dawna Lopez RN) 0850 (Patch Removed - Provider: Prince Ferguson RN)0902 (Not Given - Provider: Prince Ferguson RN - Reason: Refused-Notify Provider) oxygen GAS Inhalation, OXYGEN, First dose on Tue06/07/23 at 0830, Until Discontinued, Device/Managed by: Low Flow Device, Goal SPO2 (%): 91-95, Starting Device: Nasal Cannula, Initial Flow Rate (LPM): 2, Lowest Support: Nasal Cannula: Flow 0-6 LPM. Titrate up/down by 1 LPM., Titration Interval: Q2 minutes and as needed., Notify Provider: For sudden DECREASE in resting SPO2 to less than 85% and when escalating delivery device., Wean patient off Oxygen when the oxygen saturation is greater than or equal to 93% 0000 (Oxygen On - Provider: Dick Carver RN)0800 (Oxygen Off - Provider: Santino Teran RN)1600 (Oxygen On - Provider: Santino Teran RN) 0000 (Oxygen Off - Provider: Ginger Rausch RN)0800 (Oxygen Off - Provider: Dawna Lopez, LALITHA)1600 (Oxygen Off - Provider: Dawna Lopez RN) 0000 (Oxygen Off - Provider: Ginger Rausch RN)0800 (Oxygen Off - Provider: Prince Ferguson RN) pantoprazole (Protonix) tab 40 mg 40 mg, Oral, BID (.AM/PM), First dose on Tue06/07/23 at 2100, Until Discontinued, This med should NOT be Crushed or Chewed 0856 (Given - Provider: Santino Teran RN)2112 (Given - Provider: Ginger Rausch RN) 0859 (Given - Provider: Dawna Lopez, LALITHA)211 (Given - Provider: Ginger Rausch RN) 0849 (Given - Provider: Prince Ferguson RN) Polyethylene Glycol 3350 (Miralax) oral powder 17 g 17 g (1 Packet), Oral, Daily(AM), First dose (after last modification) on Tue06/13/23 at 0900, Until Discontinued, Mix in 8 oz of water, juice, soda, coffee, or tea. 0857 (Given - Provider: Dawna Lopez RN) 0903 (Not Given - Provider: Prince Ferguson RN - Reason: Refused-Notify Provider) senna-docusate (Senokot-S) 2 Tablet 2 Tablet, Oral, BID (.AM/PM), First dose (after last modification) on Tue06/12/23 at 2100, Until Discontinued 2112 (Given - Provider: Ginger Rausch RN) 0858 (Given - Provider: Dawna Lopez, LALITHA)2117 (Given - Provider: Ginger Rausch RN) 0849 (Given - Provider: Prince Ferguson RN) Sodium Zirconium Cyclosilicate (Lokelma) oral powder 15 g (COMPLETED) 15 g, Oral, ONCE, On Tue06/13/23 at 1130, For 1 dose, Empty entire contents of the packet(s) into a glass with 45 mL of water. Stir well and drink immediately; if powder remains in the glass, add water, stir and drink immediately; repeat until no powder remains. Administer other oral medications at least 2 hours before or 2 hours after dose. Hold dose and notify provider if K is less than 3.5 mmol/L 1205 (Given - Provider: Dawna Lopez RN) Sucralfate (Carafate) tab 1 g 1 g, Oral, ACHS, First dose on Tue06/07/23 at 1215, Until Discontinued 0802 (Given - Provider: Santino Teran RN)1206 (Given - Provider: Santino Teran RN)171 (Given - Provider: Santino Teran RN)2112 (Given - Provider: Ginger Rausch RN) 0859 (Given - Provider: Dawna Lopez, LALITHA)1203 (Given - Provider: Dwana Lopez RN)172 (Given - Provider: Dawna Lopez RN)2119 (Given - Provider: Ginger Rausch RN) 0632 (Given - Provider: Ginger Rausch RN)1121 (Given - Provider: Prince Ferguson RN) PRN Medication Order 06/12/2023 06/13/2023 06/14/2023 albuterol (VENTOLIN HFA/PROVENTIL HFA) inhaler 1 Puff, Inhalation, Q4H PRN Dyspnea, Starting on Tue06/07/23 at 1139, Until Tue06/14/23 at 1631, Shake can for 10 seconds before each puff SEND INHALER WITH PATIENT! WASTE INFO ( IF NOT SENT HOME WITH PATIENT) : Return unused medication to pharmacy in zip lock bag for disposal into black container labeled SP. Baclofen (Lioresal) tab 5 mg 5 mg, Oral, Q8H PRN Muscle spasms, Starting on Tue06/08/23 at 0901, Until Tue06/14/23 at 1631 1203 (Given - Provider: Dawna Lopez RN)233 (Given - Provider: Ginger Rausch RN) calcium CARBonate (Tums E-X) tab CHEW 750 mg 750 mg, Oral, BID PRN Indigestion, Starting on Tue06/07/23 at 1127, Until Tue06/14/23 at 1631 dextrose 50% inj 25 mL 25 mL, IV Push, PRN Hypoglycemia, Other, For blood glucose 54 - 69 mg/dL or 70 - 100 mg/dL with symptoms AND patient is unresponsive, NPO, OR unable to swallow, Starting on Tue06/07/23 at 1126, Until Tue06/14/23 at 1631, Administer IV. Recheck blood glucose after 15 minutes. Notify provider. dextrose 50% inj 50 mL 50 mL, IV Push, PRN Hypoglycemia, Other, For blood glucose below 54 mg/dL AND patient unresponsive, NPO, OR unable to swallow, Starting on Tue06/07/23 at 1126, Until Tue06/14/23 at 1631, Administer IV. Recheck blood glucose in 15 minutes. Notify provider. glucagon (Glucagen) inj 1 mg 1 mg, Intramuscular, PRN Hypoglycemia, Other, If patient is unresponsive, or NPO and has no IV access, Starting on Tue06/07/23 at 1126, Until Tue06/14/23 at 1631, NPO and no IV access with either 1) blood glucose less than 100 mg/dL and symptomatic OR 2) blood glucose less than 70 mg/dL and asymptomatic Glucose (Glutose 15) 40 % gel 15 g of glucose 15 g of glucose, Oral, PRN Hypoglycemia (low sugar), Other, For blood glucose 54 - 69 mg/dL or 70 - 100 mg/dL with symptoms AND patient alert WITH difficulty chewing/swallowing, Starting on Tue06/07/23 at 1126, Until Tue06/14/23 at 1631, Administer gel. Recheck blood glucose after 15 minutes. Notify provider. 37.5 gram tube = 15 grams glucose = 1 each Glucose (Glutose 15) 40 % gel 30 g of glucose 30 g of glucose, Oral, PRN Hypoglycemia (low sugar), Other, For blood glucose below 54 mg/dL AND patient alert WITH difficulty chewing/swallowing, Starting on Tue06/07/23 at 1126, Until Tue06/14/23 at 1631, Administer gel. Recheck blood glucose after 15 minutes. Notify provider. 37.5 gram tube = 15 grams glucose = 1 each glucose chew tab 16 g 16 g, Oral, PRN Hypoglycemia, Other, For blood glucose 54 - 69 mg/dL or 70 - 100 mg/dL with symptoms and patient alert without difficulty chewing/swallowing., Starting on Tue06/07/23 at 1126, Until Tue06/14/23 at 1631 HYDROmorphone (Dilaudid) inj 1 mg (CANCELED) 1 mg, IV Push, Q4H PRN Pain, Breakthrough, Starting on 06/11/23 at 1003, Until Tue06/13/23 at 1651 0023 (Given - Provider: Dick Carver RN)1059 (Given - Provider: Santino Teran RN)1945 (Given - Provider: Ginger Rausch, LALITHA) 0527 (Given - Provider: Ginger Rausch, LALITHA)1501 (Given - Provider: Dawna Lopez RN) HYDROmorphone (Dilaudid) tab 2 mg 2 mg, Oral, Q4H PRN Pain, Breakthrough, Starting on Tue06/13/23 at 1651, Until Tue06/14/23 at 1631 2339 (Given - Provider: Ginger Rausch RN) 0926 (Given - Provider: Prince Ferguson, LALITHA) hydrOXYzine (Atarax) tab 10 mg 10 mg, Oral, TID PRN Anxiety, Starting on Tue06/08/23 at 0900, Until Tue06/14/23 at 1631 naloxone (Narcan) 0.4 MG/ML inj 0.4 mg 0.4 mg, IV Push, PRN Other, RR<8 related to narcotics, notify provider if given, Starting on 06/11/23 at 1313, Until Tue06/14/23 at 1631 ondansetron (Zofran) tab 4 mg 4 mg, Oral, Q8H PRN Nausea, Vomiting, Starting on Delma 06/09/23 at 1221, Until Tue06/14/23 at 1631 1945 (Given - Provider: Ginger Rausch RN) 0527 (Given - Provider: Ginger Rausch RN) 0926 (Given - Provider: Prince Ferguson, LALITHA) oxyCODONE (Oxy IR) tab 10 mg 10 mg, Oral, Q4H PRN Pain, Severe, Starting on Tue06/07/23 at 1141, Until Tue06/14/23 at 1631 0441 (Given - Provider: Dick Carver RN)0802 (Given - Provider: Santino Teran RN)1206 (Given - Provider: Santino Teran RN)1724 (Given - Provider: Santino Teran RN)2355 (Given - Provider: Ginger Rausch, LALITHA) 0420 (Given - Provider: Ginger Rausch, LALITHA)0859 (Given - Provider: Dawna Lopez, LALITHA)1327 (Given - Provider: Dawna Lopez, LALITHA)2119 (Given - Provider: Ginger Rausch, LALITHA) 0145 (Given - Provider: Ginger Rausch RN)0632 (Given - Provider: Ginger Rausch, LALITHA) oxyCODONE (Oxy IR) tab 5 mg 5 mg, Oral, Q6H PRN Pain, Moderate, Starting on Tue06/07/23 at 1141, Until Tue06/14/23 at 1631 sodium chloride 0.9 % flush/inj 3 mL 3 mL, IV Push, PRN Other, Line Patency, Starting on Tue06/07/23 at 1125, Until Tue06/14/23 at 1631, Do not flush if lock, PICC, or central line not in place, IV infusing or unable to flush documented in this encounter Advance Directives Latest [...] the patient have Health Care Power of Administrative Aide? Yes, in chart and reviewed as current [...] patient or by statute hierarchy) Care Teams Sort Line Relationship Specialty Start Date End Date Courtney Restrepo MD [address] [place] [address] [place] [address] PCP - General Family Medicine 10/17/19 documented as of this encounter
--- OUTSIDE RECORDS SUMMARY | 2023-08-31 06:32 | External Medical Summary ---
Author Name Unknown Address Unknown Organization : Laboratory Report Ordering Provider Test Date Status ALESSANDRA POTTS 06/11/2023 21:04:08 Final Observation Date Value Abnormality Reference (Units ) Status Glucose Point of Care 06/11/2023 21:04:08 138 Above high normal 70-120 (mg/dL) Final Performing Location
--- OUTSIDE RECORDS SUMMARY | 2023-08-31 06:32 | External Medical Summary ---
Author Name Unknown Address Unknown Organization : Laboratory Report Ordering Provider Test Date Status EDUARDO STEEN 06/12/2023 11:50:26 Final Observation Date Value Abnormality Reference (Units ) Status Glucose Point of Care 06/12/2023 11:50:26 154 Above high normal 70-120 (mg/dL) Final Performing Location
--- OUTSIDE RECORDS SUMMARY | 2023-08-31 06:32 | External Medical Summary ---
Author Name Unknown Address Unknown Organization [id number]:[facility] [place] - [facility] [address] [facility] [address] Laboratory Report Ordering Provider Test Date Status JUANITO SWEET 06/14/2023 06:01:00 Final Observation Date Value Abnormality Reference (Units ) Status WBC, Total 06/14/2023 06:01:00 10.96 Above high normal 4.00-10.80 (K/uL) Final RBC 06/14/2023 06:01:00 3.72 3.85-5.15 (M/uL) Final Hemoglobin 06/14/2023 06:01:00 11.5 Below low normal 12.0-15.3 (g/dL) Final HCT 06/14/2023 06:01:00 33.9 Below low normal 36.0-45.2 (%) Final MCV 06/14/2023 06:01:00 91.1 81.5-97.5 (fL) Final MCH 06/14/2023 06:01:00 30.9 27.0-34.0 (pg) Final MCHC 06/14/2023 06:01:00 33.9 32.0-36.0 (g/dL) Final RDW 06/14/2023 06:01:00 14.1 11.5-15.5 (%) Final Platelets 06/14/2023 06:01:00 314 140-400 (K/uL) Final MPV 06/14/2023 06:01:00 10.4 6.6-11.1 (fL) Final Nucleated erythrocytes/100 leukocytes [Ratio] in Blood by Automated count 06/14/2023 06:01:00 0 <=0 (/100 WBCs) Final Performing Location [facility] [place] - [address] [place] [address]
--- OUTSIDE RECORDS SUMMARY | 2023-08-31 06:32 | External Medical Summary ---
Author Name Unknown Address Unknown Organization : Laboratory Report Ordering Provider Test Date Status EDUARDO STEEN 06/14/2023 11:36:07 Final Observation Date Value Abnormality Reference (Units ) Status Glucose Point of Care 06/14/2023 11:36:07 207 Above high normal 70-120 (mg/dL) Final Performing Location
--- OUTSIDE RECORDS SUMMARY | 2023-08-31 06:32 | External Medical Summary ---
Author Name Unknown Address Unknown Organization : Laboratory Report Ordering Provider Test Date Status EDUARDO STEEN 06/13/2023 21:07:32 Final Observation Date Value Abnormality Reference (Units ) Status Glucose Point of Care 06/13/2023 21:07:32 212 Above high normal 70-120 (mg/dL) Final Performing Location
--- OUTSIDE RECORDS SUMMARY | 2023-08-31 06:32 | External Medical Summary ---
Author Name Unknown Address Unknown Organization K01[place] [facility] [place] [facility] [address] [facility] [address] Laboratory Report Ordering Provider Test Date Status JUANITO SWEET 06/13/2023 07:23:00 Final Observation Date Value Abnormality Reference (Units ) Status BUN 06/13/2023 07:23:00 17 6-20 (mg/dL) Final Creatinine 06/13/2023 07:23:00 0.8 0.5-1.0 (mg/dL) Final Glomerular filtration rate/1.73 sq M.predicted [Volume Rate/Area] in Serum, Plasma or Blood by Creatinine-based formula (CKD-EPI) 06/13/2023 07:23:00 78 >=60 (mL/min) Final eGFR is calculated based on the CKD-EPI 2020 equation Sodium 06/13/2023 07:23:00 135 135-146 (m mol/L) Final Potassium 06/13/2023 07:23:00 5.2 Above high normal 3. 5-5.1 (mmol/L) Final Cl 06/13/2023 07:23:00 97 Below low normal 98- 107 (mmol/L) Final CO2 06/13/2023 07:23:00 32 22-32 (mmo l/L) Final Anion gap 06/13/2023 07:23:00 6 Below low normal 7-1 5 (mmol/L) Final Glucose 06/13/2023 07:23:00 149 Above high normal 70 -120 (mg/dL) Final Calcium 06/13/2023 07:23:00 9.5 8.4-10.2 ( mg/dL) Final Performing Location [facility] [place] [address] [place] [address]
--- OUTSIDE RECORDS SUMMARY | 2023-08-31 06:33 | External Medical Summary ---
Author Name Unknown Address Unknown Organization : Laboratory Report Ordering Provider Test Date Status EDUARDO STEEN 06/09/2023 16:48:27 Final Observation Date Value Abnormality Reference (Units ) Status Glucose Point of Care 06/09/2023 16:48:27 157 Above high normal 70-120 (mg/dL) Final Performing Location
--- OUTSIDE RECORDS SUMMARY | 2023-08-31 06:33 | External Medical Summary ---
Author Name Unknown Address Unknown Organization : Laboratory Report Ordering Provider Test Date Status EDUARDO STEEN 06/08/2023 20:56:23 Final Observation Date Value Abnormality Reference (Units ) Status Glucose Point of Care 06/08/2023 20:56:23 242 Above high normal 70-120 (mg/dL) Final Performing Location
--- OUTSIDE RECORDS SUMMARY | 2023-08-31 06:33 | External Medical Summary ---
Author Name Unknown Address Unknown Organization K01[place] [facility] [place] [facility] [address] [facility] [address] Laboratory Report Ordering Provider Test Date Status JUANITO SWEET 06/10/2023 05:47:00 Final Observation Date Value Abnormality Reference (Units ) Status WBC, Total 06/10/2023 05:47:00 11.21 Above high normal 4.00-10.80 (K/uL) Final RBC 06/10/2023 05:47:00 3.84 3.85-5.15 (M/uL) Final Hemoglobin 06/10/2023 05:47:00 11.3 Below low normal 12.0-15.3 (g/dL) Final HCT 06/10/2023 05:47:00 35.4 Below low normal 36.0-45.2 (%) Final MCV 06/10/2023 05:47:00 92.2 81.5-97.5 (fL) Final MCH 06/10/2023 05:47:00 29.4 27.0-34.0 (pg) Final MCHC 06/10/2023 05:47:00 31.9 32.0-36.0 (g/dL) Final RDW 06/10/2023 05:47:00 14.2 11.5-15.5 (%) Final Platelets 06/10/2023 05:47:00 222 140-400 (K/uL) Final MPV 06/10/2023 05:47:00 10.6 6.6-11.1 (fL) Final Nucleated erythrocytes/100 leukocytes [Ratio] in Blood by Automated count 06/10/2023 05:47:00 0 <=0 (/100 WBCs) Final Performing Location [facility] [place] [address] [place] [address]
--- OUTSIDE RECORDS SUMMARY | 2023-08-31 06:33 | External Medical Summary ---
Author Name Unknown Address Unknown Organization : Laboratory Report Ordering Provider Test Date Status EDUARDO STEEN 06/10/2023 07:35:54 Final Observation Date Value Abnormality Reference (Units ) Status Glucose Point of Care 06/10/2023 07:35:54 143 Above high normal 70-120 (mg/dL) Final Performing Location
--- OUTSIDE RECORDS SUMMARY | 2023-08-31 06:33 | External Medical Summary ---
Author Name Unknown Address Unknown Organization : Laboratory Report Ordering Provider Test Date Status EDUARDO STEEN 06/09/2023 07:56:50 Final Observation Date Value Abnormality Reference (Units ) Status Glucose Point of Care 06/09/2023 07:56:50 163 Above high normal 70-120 (mg/dL) Final Performing Location
--- OUTSIDE RECORDS SUMMARY | 2023-08-31 06:33 | External Medical Summary ---
Author Name Unknown Address Unknown Organization [id number]:[facility] [place] [address] [place] [address] Laboratory Report Ordering Provider Test Date Status JUANITO SWEET 06/09/2023 07:58:00 Final Observation Date Value Abnormality Reference (Units ) Status BUN 06/09/2023 07:58:00 13 6-20 (mg/dL) Final Creatinine 06/09/2023 07:58:00 0.7 0.5-1.0 (mg/dL) Final Glomerular filtration rate/1.73 sq M.predicted [Volume Rate/Area] in Serum, Plasma or Blood by Creatinine-based formula (CKD-EPI) 06/09/2023 07:58:00 88 >=60 (mL/min) Final eGFR is calculated based on the CKD-EPI 2020 equation Sodium 06/09/2023 07:58:00 132 Below low normal 135 -146 (mmol/L) Final Potassium 06/09/2023 07:58:00 4.9 3.5-5.1 (m mol/L) Final Cl 06/09/2023 07:58:00 95 Below low normal 98- 107 (mmol/L) Final CO2 06/09/2023 07:58:00 29 22-32 (mmo l/L) Final Anion gap 06/09/2023 07:58:00 8 7-15 (mmol /L) Final Glucose 06/09/2023 07:58:00 184 Above high normal 70 -120 (mg/dL) Final Calcium 06/09/2023 07:58:00 10.0 8.4-10.2 ( mg/dL) Final Performing Location [facility] [place] [address] [place] [address]
--- OUTSIDE RECORDS SUMMARY | 2023-08-31 06:33 | External Medical Summary ---
Author Name Unknown Address Unknown Organization : Laboratory Report Ordering Provider Test Date Status EDUARDO STEEN 06/11/2023 07:50:18 Final Observation Date Value Abnormality Reference (Units ) Status Glucose Point of Care 06/11/2023 07:50:18 166 Above high normal 70-120 (mg/dL) Final Performing Location
--- OUTSIDE RECORDS SUMMARY | 2023-08-31 06:33 | External Medical Summary ---
Author Name Unknown Address Unknown Organization K01:LAB[facility] [place] - [facility] [address] [facility] [address] Laboratory Report Ordering Provider Test Date Status JUANITO SWEET 06/09/2023 07:58:00 Final Observation Date Value Abnormality Reference (Units ) Status WBC, Total 06/09/2023 07:58:00 14.20 Above high normal 4.00-10.80 (K/uL) Final RBC 06/09/2023 07:58:00 4.06 3.85-5.15 (M/uL) Final Hemoglobin 06/09/2023 07:58:00 12.0 12.0-15.3 (g/dL) Final HCT 06/09/2023 07:58:00 37.3 36.0-45.2 (%) Final MCV 06/09/2023 07:58:00 91.9 81.5-97.5 (fL) Final MCH 06/09/2023 07:58:00 29.6 27.0-34.0 (pg) Final MCHC 06/09/2023 07:58:00 32.2 32.0-36.0 (g/dL) Final RDW 06/09/2023 07:58:00 14.5 11.5-15.5 (%) Final Platelets 06/09/2023 07:58:00 230 140-400 (K/uL) Final MPV 06/09/2023 07:58:00 10.2 6.6-11.1 (fL) Final Nucleated erythrocytes/100 leukocytes [Ratio] in Blood by Automated count 06/09/2023 07:58:00 0 <=0 (/100 WBCs) Final Performing Location LABORATORY [facility] [place] - [address] [facility] [address]
--- OUTSIDE RECORDS SUMMARY | 2023-08-31 06:33 | External Medical Summary ---
Author Name Unknown Address Unknown Organization : Laboratory Report Ordering Provider Test Date Status EDUARDO STEEN 06/10/2023 11:30:15 Final Observation Date Value Abnormality Reference (Units ) Status Glucose Point of Care 06/10/2023 11:30:15 236 Above high normal 70-120 (mg/dL) Final Performing Location
--- OUTSIDE RECORDS SUMMARY | 2023-08-31 06:33 | External Medical Summary ---
Author Name Unknown Address Unknown Organization : Laboratory Report Ordering Provider Test Date Status EDUARDO STEEN 06/08/2023 16:35:05 Final Observation Date Value Abnormality Reference (Units ) Status Glucose Point of Care 06/08/2023 16:35:05 130 Above high normal 70-120 (mg/dL) Final Performing Location
--- OUTSIDE RECORDS SUMMARY | 2023-08-31 06:33 | External Medical Summary ---
Author Name Unknown Address Unknown Organization : Laboratory Report Ordering Provider Test Date Status ALESSANDRA POTTS 06/11/2023 11:01:59 Final Observation Date Value Abnormality Reference (Units ) Status Glucose Point of Care 06/11/2023 11:01:59 178 Above high normal 70-120 (mg/dL) Final Performing Location
--- OUTSIDE RECORDS SUMMARY | 2023-08-31 06:33 | External Medical Summary ---
Author Name Unknown Address Unknown Organization K01:[place] [place] [address] [place] [address] Laboratory Report Ordering Provider Test Date Status JUANITO SWEET 06/11/2023 06:31:00 Final Observation Date Value Abnormality Reference (Units ) Status BUN 06/11/2023 06:31:00 16 6-20 (mg/dL) Final Creatinine 06/11/2023 06:31:00 0.7 0.5-1.0 (mg/dL) Final Glomerular filtration rate/1.73 sq M.predicted [Volume Rate/Area] in Serum, Plasma or Blood by Creatinine-based formula (CKD-EPI) 06/11/2023 06:31:00 >90 >=60 (mL/min) Final eGFR is calculated based on the CKD-EPI 2020 equation Sodium 06/11/2023 06:31:00 135 135-146 (m mol/L) Final Potassium 06/11/2023 06:31:00 4.5 3.5-5.1 (m mol/L) Final Cl 06/11/2023 06:31:00 98 98-107 (mm ol/L) Final CO2 06/11/2023 06:31:00 30 22-32 (mmo l/L) Final Anion gap 06/11/2023 06:31:00 7 7-15 (mmol /L) Final Glucose 06/11/2023 06:31:00 181 Above high normal 70 -120 (mg/dL) Final Calcium 06/11/2023 06:31:00 9.4 8.4-10.2 ( mg/dL) Final Performing Location [facility] [place] [address] [place] [address]
--- OUTSIDE RECORDS SUMMARY | 2023-08-31 06:33 | External Medical Summary ---
Author Name Unknown Address Unknown Organization : Laboratory Report Ordering Provider Test Date Status EDUARDO STEEN 06/10/2023 20:37:59 Final Observation Date Value Abnormality Reference (Units ) Status Glucose Point of Care 06/10/2023 20:37:59 175 Above high normal 70-120 (mg/dL) Final Performing Location
--- OUTSIDE RECORDS SUMMARY | 2023-08-31 06:33 | External Medical Summary ---
Author Name Unknown Address Unknown Organization : Laboratory Report Ordering Provider Test Date Status EDUARDO STEEN 06/09/2023 20:47:03 Final Observation Date Value Abnormality Reference (Units ) Status Glucose Point of Care 06/09/2023 20:47:03 172 Above high normal 70-120 (mg/dL) Final Performing Location
--- OUTSIDE RECORDS SUMMARY | 2023-08-31 06:34 | External Medical Summary | Summary of Care ---
Author Name Unknown Organization [facility] Address [address] [place] [address] Phone [phone] Care Team Providers Care Shipper/Receiver Name Role Phone Courtney Restrepo MD Primary Care Prov ider Reason for Visit * Reason Comments Follow Up Encounter Details Date Type Department Care Team (Late st Contact Info) Description 05/31/2023 11:00 AM EDT Office Visit Vascular Surg [facility] [address], [place] [id number] Nnamdi King MD [address], [place] [phone] PVD (peripheral vascular disease) ([facility])*; Mesenteric ischemia, chronic (HCC); Bilateral carotid artery stenosis; Cardiac arrest ([facility]) Allergies Active Allergy Reactions Criticality Noted Date [...] edema Nitroglycerin Hypotension 12/20/2018 Penicillins Nausea/vomiting 05/17/2007 Graham Hives 10/02/2018 Propoxyphene Edema face/lips/tongue,Hiv es 06/26/2009 documented as of this encounter (statuses as of 06/02/2023) Medications Medication Sig Dispensed Refills Start Date [...] of Breath. 100 mL 3 3 Active SeeMe Delica Lancets 30GIndications:Typ e 2 diabetes mellitus with hemoglobin A1c goal of less than 8.0% (HCC) Use to test glucose daily. E11.9 100 Each 5 3 Active SeeMe Verio w/Device KitIndications:Typ e 2 diabetes mellitus with hemoglobin A1c goal of less than 8.0% ([facility]) Use to test glucose daily. E11.9 1 Kit 0 3 Active Trelegy Ellipta 100-62.5-25 MCG/ACT Aerosol Powder Breath ActivatedIndicatio ns:COPD, group C, by GOLD 2017 classification ([facility]) Inhale 1 puff as directed once a day 1 inhalation daily. Rinse mouth after every use. 60 Blister Dosing Unit 5 3 Active Sodium Chloride 4 MEQ/ML Oral Solution Take by mouth. 0 Active NovoLOG FlexPen 100 UNIT/ML Subcutaneous Solution [...] and 1 Capful before bedtime. 0 Active Spironolactone 25 MG Oral Tablet (Aldactone)Indicat ions:Hypertensive heart disease with acute on chronic diastolic congestive heart failure (HCC) Take 2 Tablets by mouth in the morning. 180 Tablet 3 3 Active Align Extra Strength Oral Capsule Take [...] at bedtime. 120 Tablet 0 4 Active HYDROcodone-Acetam inophen 5-325 MG Oral TabletIndications: Chronic midline thoracic back pain Take 1 Tablet by mouth 2 times a day as needed for Pain, Severe. 60 Tablet 0 4 06/05/19 24 Active Polyethylene Glycol 3350 17 GM/SCOOP Oral Powder (MiraLax)Indicatio ns:Other constipation Dissolve one heaping tablespoon in 8 ounces of water or juice - one dose per day as needed for severe constipation 225 g 2 4 Active Gabapentin 300 MG Oral Capsule (Neurontin) Take 1 Capsule by mouth at bedtime. 30 Capsule 2 4 06/02/19 24 Discontinued documented as of this encounter (statuses as of 06/02/2023) Active Problems Problem Noted Date Diagnosed Date Other disorders of phosphorus metabolism 023 Pathological fracture of millie tebra due to osteoporosis with routine healing, subsequent encounter 01/16/2023 Shock 01/08/2023 Lactic acidosis 01/08/2023 Transaminitis 01/08/2023 Encephalopathy acute 01/08/2023 History of cardiac arrest 12/13/2022 Overview: Per Progress Note on 11/23/22 "Cardiac arrest 11/07" Hypertensive heart disease w ith acute on chronic diastolic congestive heart failure 11/29/2022 Wound drainage 11/04/2022 S/P femoral-femoral bypass surgery [...] rinse after steroid. Test performed by Bibiana PET SITTING CPFT Old LA (myocardial infarction) 02/21/2019 Bilateral carotid artery stenosis 02/21/2019 DM type 2 with diabetic peripheral neuropathy Right hand tendonitis 02/21/2019 Generalized arthritis 02/21/2019 Hand arthritis 02/21/2019 Severe mitral regurgitation 02/13/2019 Gastrointestinal hemorrhage with melena 02/08/20 19 Lung nodules 02/07/2019 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 01/29/2019 Chronic superficial gastritis with bleeding 01/12 PVD (peripheral vascular disease) 01/22/2019 Iron deficiency anemia due to chronic blood loss 01/22/2019 Senile osteoporosis 07/03/2018 Reactive depression 11/17/2017 Atherosclerosis of [place] co ronary artery of [place] heart without angina pectoris 07/22/2015 Overview: Single [...] rinse after steroid. Test performed by Bibiana [facility] SITT[facility] CP[facility] GENERAL OSTEOARTHROSIS BMI 32.0-32.9,adult Tobacco use disorder Hyperlipidemia with target LDL less than 70 Overview: ICD-10 update of inactive term RSD upper limb Overview: left arm Generalized anxiety disorder documented as of this encounter (statuses as of 06/02/2023) Resolved Problems Problem Noted Date Diagnosed Date Resolved Date PRAKASH (acute kidney injury) 01/08/2023 Systolic congestive heart failure 11/29/2022 12/10/2022 Pneumonia due to infectious organism 11/04/2022 01/19/2023 [...] ISCHEMIC HRT DIS NOS Coronary atherosclerosis of [place] coronary artery 11/24/2016 Tobacco abuse 11/17/2017 documented as of this encounter (statuses as of 06/02/2023) Immunizations Name Administration Dates Next Due COVID-19 [...] Date Smoking Tobacco: Every Day Cigarettes 0.3 61.8 Started: 1962 Smokeless Tobacco: Never Tobacco Cessation:Ready to Q uit: No; Counseling Given: No Comments:04/06/23 4 cigarettes daily, declined pamphlet Alcohol [...] Sign Reading Time Taken Comments Blood Pressure 110/62 05/31/2023 10:55 AM EDT Pulse - - Temperature 36.3 C (97.3 F) 05/31/2023 10:55 AM E DT Respiratory Rate - - Oxygen Saturation - - Inhaled Oxygen Concentration - - Weight 73.6 kg (162 lb 3.2 oz) 05/31/2023 10:55 AM EDT Height - - Body Mass Index 29.19 02/11/2023 10:02 AM EST documented in this encounter Functional Status Functional [...] No 01/08/2023 documented as of this encounter Progress Notes * Aba Bryant CRNP - 05/31/2023 11:03 AM EDT Images from the original note were not included. Date of Service: 05/31/2023 11:03 AM Carlotta Khan is a 72 year old female. PCP: MD Cassandra Morris MD (Gastroenterology) Kyle Chapa DO (Cardiology) Chief Complaint: Ms. Khan returns to clinic sooner than scheduled with new ulceration to her pivf1no toe. Accompanied by grandchildren. HPI: Patient is a dedicated smoker with diffuse vascular disease. Recently stubbed her L 3rd toe in 03/2023 and developed an ulceration which has failed to heal. Hasbeen seen by local Dental Tech with instructions to follow up with Vascular Surgery as local wound care was not leading to healing of her wound. No reported fever or localized s/s of infection. Toe is painful and will awaken her at night despite use of Vicodin. CAROTID DISEASE: S/P right CEA in [phone] in [place]. Suffered a right middle cerebral artery distribution [...] recent amaurosis fugax. Carotid duplex exam at [facility] identified the right internal carotid [...] s/p L to R fem-fem bypass in [place] in ~2004 following a cardiac cath that caused herright leg to "go ." On 11/06/2018 she had a thrombectomy of the fem-fem bypass and patch angioplasty of the distal anastamosis (right groin) by Dr. Jara at [facility], performed for ischemic right leg. S/P left WORKERS COMPENSATION ADMINISTRATOR YOUTH LIAISON OFFICER 04/14/[address] King during time of SMA stent placement S/P angioplasties of SUZANNE and RSFA/Pop Artery by Dr. King on 09/23/2022 for critical limb ischemiawith gangrene right foot with left to right fem-fem bypass graft with stenosis in left external iliac artery Patient admitted to [facility] 11/04-11/24/2022 with sepsis/right 3rd to ulceration. S/P [...] and periorbital edema Nitroglycerin Hypotension Penicillins Nausea/vomiting Graham Hives Propoxyphene Edema face/lips/tongue and Hives Patient [...] of less than 8.0% ([facility]) E11.9 Controlled substance agreement signed Z79.899 Generalized anxiety disorder F41.1 Atherosclerosis of [place] coronary artery of [place] heart without angina pectoris I25.10 Reactive depression F32.9 Senile osteoporosis M81.0 PVD (peripheral vascular disease) ([facility]) I73.9 Iron deficiency anemia due to chronic blood loss D50.0 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 K22.70 Chronic superficial gastritis with bleeding K29.31 Gastrointestinal hemorrhage with melena K92.1 Lung nodules R91.8 Severe mitral regurgitation I34.0 Old LA (myocardial infarction) I25.2 Bilateral carotid artery stenosis I65.23 DM type 2 with diabetic peripheral neuropathy ([facility]) E11.42 Right hand tendonitis M77.8 Generalized arthritis M19.90 Hand arthritis M19.049 Centrilobular emphysema ([facility]) J43.2 Polyneuropathy in other diseases classified elsewhere ([facility]) G63 Superior mesenteric artery stenosis ([facility]) 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 ([facility]) I77.1 Major depressive disorder, recurrent, unspecified ([facility]) F33.9 Non-proliferative diabetic retinopathy, both eyes ([facility]) E11.3293 Recurrent major depressive disorder, in partial remission ([facility]) F33.41 Mesenteric ischemia, chronic ([facility]) K55.1 COPD, group D, by GOLD 2017 classification ([facility]) J44.9 Chronic ischemic heart disease I25.9 Advanced directives, counseling/discussion Z71.89 Type 2 diabetes mellitus with peripheral artery disease ([facility]) E11.51 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- dominant side ([facility]) I69.354 Wound drainage L24.A9 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 Hypertensive heart disease with acute on chronic diastolic congestive heart failure ([facility]) I11.0, I50.33 History of cardiac arrest Z86.74 Shock ([facility]) R57.9 Lactic acidosis E87.20 Transaminitis R74.01 Encephalopathy acute G93.40 Pathological fracture of vertebra due to osteoporosis with routine healing, subsequent encounter M80.08XD Other disorders of phosphorus metabolism E83.39 Past Medical History: Diagnosis Date Asthma, allergic Benign neoplasm of colon 01/2009 3 mm tubular adenoma in sigmoid, f/u colonoscopy in 5 yrs BMI 32.0-32.9,adult Calculus of kidney spontanteous passage Cardiac arrest ([facility]) 11/04/2022 history Carotid artery stenosis, asymptomatic left Carotid Stenosis, infarct w/in 8 wks 08/20/2008 Cellulitis of right foot 07/02/2019 [facility] for severe pain, cellulitis right foot Cerebrovascular Dz, 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 Pt with hx of embolic stroke. L hemiplegia Chronic ischemic heart disease Contusion of hand, right 05/21/2016 Coronary atherosclerosis of k[place] coronary artery DM type 2, goal A1c below 7 1994 after being on steroids for a while Fracture of three ribs on left side 02/25/2015 left 3,4,5 Generalized anxiety disorder Generalized osteoarthritis Hidradenitis had skin grafts under both arms by Dr Burrell Hyperlipidemia LDL goal < 70 Hypoxia 02/28/2015 [place], related to hypoventilation from rib fx pain Intracerebral hemorrhage (HCC) 07/03/2008 Need for hepatitis C screening test 08/08/2014 negative Obesity, BMI not known used to weigh 280 Old myocardial infarct x 2 with stent placement OTHER LATE EFFECTS CEREBROVASCULAR DISEASE 07/03/2008 RSD upper limb left arm Scabies 06/07/2017 Treated in [place] ER. Senile osteoporosis 07/03/2018 high risk Simple [...] performed by Nnamdi King MD at OR [facility] APPENDECTOMY W/OTHER PROCEDURE CARDIAC ANGIOPLASTY, PERCUTANEOUS, 1 ARTERY Bilateral 11/12/2022 PTCA, CARDIAC ANGIOPLASTY, PERCUTANEOUS, 1 ARTERY performed by Patrice Jose MD at CARDIAC LABS [facility] COLONOSCOPY THRU STOMA, W/BIOPSY 01/2009 adenomatous polyp, f/u colonoscopy in 5 yrs COLONOSCOPY, DIAGNOSTIC (RECTUM) 07/13/2018 poor prep, repeat 6 mo/COLONOSCOPY FLEXIBLE PROXIMAL DIAGNOSTIC performed by Cassandra Hart MD at ENDOSCOPY [facility] COLONOSCOPY, DIAGNOSTIC (RECTUM) 09/27/2018 6 mm descending tubular adenoma, performed by Cassandra Hart MD at ENDOSCOPY [facility] COMPOSITE SKIN GRAFT b/l axilla, donor site b/l thighs CORONARY ANGIOGRAPHY W/LEFT HEART CATH N/A 11/10/2022 CORONARY ANGIOGRAPHY W/LEFT HEART CATH performed by Patrice Jose MD at CARDIAC LABS [facility] CT ABDOMEN/PELVIS 09/28/[address] [...] performed by Cassandra Hart MD at ENDOSCOPY [facility] EGD, FLEXIBLE, DIAGNOSTIC 01/19/2019 gastric irritation on /[facility] EGD, FLEXIBLE, W/BIOPSY 09/27/2018 1 cm salmon colored mucosa suggestive of short segment Pendleton's, mild erythema antrum FEM/POP ARTERY REVASC W/ANGIOPLASTY Left 04/14/2022 FEM/POP ARTERY REVASC W/ANGIOPLASTY performed by Nnamdi King MD at OR [facility] FEM/POP ARTERY REVASC W/ANGIOPLASTY Right 09/23/2022 FEM/POP ARTERY REVASC W/ANGIOPLASTY performed by Nnamdi King MD at OR [facility] ILIAC ART. REVASCULARIZATION W/ANGIOPLASTY Left 09/23/2022 ILIAC ARTERY REVASCULARIZATION W/ANGIOPLASTY performed by Nnamdi King MD at OR [facility] IOF VAS CAROTID DUPLEX, BILATERAL 12/06/2012 Right carotid artery duplex examination indicates evidence of a less than 50% stenosis of the internal carotid artery. IR ARTERIOGRAM EXTREMITY BILATERAL 04/14/2022 ANGIOGRAPHY EXTREMITY BILATERAL performed by Nnamdi King MD at OR [facility] IR ARTERIOGRAM EXTREMITY BILATERAL N/A 09/23/2022 ANGIOGRAPHY EXTREMITY BILATERAL performed by Nnamdi King MD at OR [facility] IR STENT PLACEMENT, INITIAL ARTERY N/A 04/14/2022 NON LOWER EXTREMITY OR CAROTID STENT REVASCULARIZATION WITH RADIOLOGIC SUPERVISION AND INTERPRETATION performed by Nnamdi King MD at OR [facility] MAMMOGRAM SCREENING BILATERAL Bilateral 08/20/2014 almost entirely fat, category 1 normal MAMMOGRAM SCREENING BILATERAL Bilateral 05/12/2017 scattered fibroglandular densities category 1 normal MOBILE DXA 07/03/2018 Lumbar T -0.7, left femur T -2.9, high risk, treatment recommended NEG PRESSURE WOUND THERAPY DME </= 50 SQ CM N/A 11/04/2022 NEGATIVE PRESSURE WOUND THERAPY LESS THAN 50SQ CM performed by Nnamdi King MD at OR [facility] NEG PRESSURE WOUND THERAPY DME </= 50 SQ CM N/A 11/16/2022 NEGATIVE PRESSURE WOUND THERAPY LESS THAN 50SQ CM performed by Nnamdi King MD at OR [facility] NM HEPATOBILIARY SYSTEM WITH PHARMACOLOGIC INTERVENTION 10/18/2018 normal hepatic scan with normal GE ejection fraction PARTIAL AMPUTATION OF TOE Right 11/04/2022 AMPUTATION TOE INTERPHALANGEAL JOINT performed by Nnamdi King MD at OR [facility] PARTIAL HYSTERECTOMY PFT/BA BRONCHODILATOR N/A 03/11/2021 probably normal PFT with some airway reversibility PLACE INTRACORONARY STENT, FIRST VS [id number] REMOVE CATARACT, INSERT LENS PROSTH Left 01/27/2017 Dr Gunter REPAIR OF BLADDER NECK 1994 Dr Montesinos/needed redone due to infection SUBQ DEBRIDEMENT, FIRST 20 CM2 N/A 11/04/2022 DEBRIDEMENT SKIN AND SUBCUTANEOUS TISSUE performed by Nnamdi King MD at OR [facility] SUBQ DEBRIDEMENT, FIRST 20 CM2 N/A 11/16/2022 DEBRIDEMENT SKIN AND SUBCUTANEOUS TISSUE performed by Nnamdi King MD at OR [facility] SYNTH BYPASS, FEM-FEM 2004 fem-fem bypass, [place] THROMBOENDARECTOMY W/PATCH,NECK INCISION [id number] right CEA, [place] THROMBOENDARECTOMY W/PATCH,NECK INCISION 08/19/2008 right redo eversion carotid endarterectomy /Dr. Bynum TOOTH ROOT REMOVAL 01/23/2016 full mouth extraction, Dr Dmitry [place] [place] ANGIOPLASTY OPEN/PERC IMAGE 1ST ARTERY Right 04/14/2022 ANGIOPLASTY ARTERIAL (EXCEPT LOWER EXTREMITY) performed by Nnamdi King MD at OR [facility] US ABDOMEN COMPLETE 08/08/2018 normal VASC DUPLEX [...] Narrative >20yrs killed by a drunk driver license technician Disabled Social Determinants of Health Financial Resource [...] grossly intact. Left hand contracture with mild posting clerk strength weakness. PULSE SCALE: Carotid Right:----Bruit: Yes [...] 05/23/2023 Mesenteric Duplex: Ao 79, Celiac 134, [id number], Splenic 83, SMA 117/159/148/164. 05/23/2023 Graft Duplex: L EIA 147, L WORKERS COMPENSATION ADMINISTRATOR 253, L DFA 94 L SFA 379/314/106/100, L Pop 24, inflow 69, L anast 125, BPG 75/68/55, R anast 74, outflow 69, R WORKERS COMPENSATION ADMINISTRATOR 65, R DFA 68, R SFA 58/70/47/153, [...] me on 05/31/2023. CARDIAC STUDIES: 12/01/2022 ECHO ([facility]) 11/13/2023 Card Cath: Ostial LAD with 95% stenosis s/p IVUS guided PCI. IVUS showed critical stenosisat the ostium of LAD. LM-LAD stented with [id number] Howie stent. Mid portion post dilated with [...] anastamosis (right groin) by Dr. Jara at [facility] on 11/06/18, performed for ischemic right leg. Left to right fem-fem bypass in [place] in approximately 2004. S/P SMA stent and angioplasty of LCFA on 04/14/[address] King for chronic mesenteric ischemia (90% stenosis of SMA and 80% Celiac stenosis) S/P angioplasty of LCFA 04/14/[address] King for LFA stenosis (status post [id number] bypass grafting). Redo R CEA <50% stenosis, heavily calcified, asymptomatic. Asymptomatic LICA 70-99% stenosis. S/P redo right CEA by Dr. Bynum 08/19/2008 (initial right CEA in [place]); R MCA infarction 05/20 with hemorrhagic conversion 06/20. Residual left UE weakness with hand contracture. Left axillary artery occlusion, asymptomatic. CAD, h/o 11/12/2022 PCI/stent to LM/LAD [facility] Cardiac Surgery declined CABG/MVR due to high [...] gauze dressing. Will provide trial of Gabapentin 300 mg QHS for pain management. E-scribed. If pain becomes intractable, BKA vs AKA could be considered. The patient was counseled regarding the pathophysiology [...] per PCP. F/U with Dr. King at [facility] on 06/29/2023 for wound check, or sooner [...] may end up with bka vs aka I do not have good revasc option for her given advanced pad and her severe co-morbidities She does NOT need the MRI of left foot since she is heading towards major leg amputation Nnamdi King MD Section of Vascular [place] [address] [phone] documented in this encounter Nursing Notes * Alice Ch PHARM Tech - 05/31/2023 11:00 AM EDT Patient was instructed to not get up on the exam table/exam chair until directed and assisted by their provider; patient is to remain seated in the chair/ wheelchair/ exam table/ exam chair for fall prevention and safety reasons. Patient is aware to have assistance to step down off exam table/exam chair with personnel. Patient voiced full comprehension of instructions. Reviewed the option of transferring scripts to [facility] pharmacy with patient and / or family. KEYANNA Phillip documented in this encounter Plan of Treatment Upcoming Encounters Date Type Department Care Team (Latest Contact Info) Description 06/07/2023 9:52 AM EDT Hospital Encounter OR [facility], OPERATING ROOM [facility], [facility] [address] [place] [address] Nnamdi King MD [address], [place] [phone] 06/07/2023 9:52 AM EDT - 06/07/2023 12:31 PM EDT Surgery OR [facility], OPERATING ROOM [facility], [facility] [address] [place] [address] Nnamdi King MD [address], [place] [phone] AMPUTATION LEG THROUGH TIBIA AND FIBULA 06/29/2023 10:30 AM EDT Office Visit Vascular Surgery, [address] [place] [address] Nnamdi King MD [address], [place] [phone] 10/10/2023 4:00 PM EDT Office Visit Nephrology, [address] [place] [address] Charla Potter MD [address] [place] [phone] 12/07/2023 9:20 AM EDT Office Visit Family Medicine [address] [phone] Courtney Restrepo MD [address] [place] [address] [place] [address] Scheduled Procedures Name Priority Associated Diagnoses Date/Ti me AMPUTATION LEG THROUGH TIBIA AND FIBULA Atherosclerosis of [place] artery of left lower extremity with ulceration of other part of foot (HCC) 06/07/2023 9:52 AM EDT ESOPHAGOGASTRODUODENOSCOPY ( EGD), FLEXIBLE, TRANSORAL, DIAGNOSTIC Recall Pendleton's esophagus Health Maintenance Due Date Last Done Comments DISCUSS TOBACCO CESSATION (REFER TO SMARTSET #3298) 1950 *ADVANCE DIRECTIVE NOT ON FILE 06/28/2020 Pendleton's Esophagus Surveilance 01/19/2022 01/19/2019, 09/27/2018, 09/27/2018 COVID-19 Vaccine ( season) 2022 07/14/2021, 08/12/2020, 07/15/2020 Influenza Vaccine (FLU shot) (#1) 2022 11/17/2021, 11/30/2019, 12/27/2018, Additional history exists Diabetic Eye Exam 06/05/2023 06/04/2022 (No t indicated), 01/14/2021, 11/07/2019, Additional history exists HbA1c 06/10/2023 12/10/2022, 08/13, 03/26/2022, Additional history exists DXA Scan 07/22/2023 07/21/2021, 07/10/2018 Diabetic Foot Exam 09/09/2023 09/08/2022, 0 11/17/2021, 01/14/2021, Additional history exists COLONOSCOPY-EVERY 5 YRS AGES 18-100 09/28/2023 09/27/2018, 09/27/2018, 07/13/2018, Additional history exists O2 ASSESSMENT COMPLETED IN PAST YEAR FOR COPD 11/17/2023 11/16/2022 Depression Screening 02/11/2024 02/10/2023 Albumin/Creatinine Ratio 04/13/2024 024, 04/13/2022, 06/03/2021, Additional history exists GFR 05/11/2024 05/11/2023, 02/12, 02/17/2023, Additional history exists Mammogram 05/19/2024 05/20/2023, 08/2021, 05/12/2017, Additional history exists DTaP,Tdap,and Td Vaccines (3 - Td or Tdap) 07/15/2031 07/14/2021 (Declined), 07/27/2010 Pneumococcal Vaccine: 65+ Years Completed 10/27/2015, 08/08/2014, 05/30/2008 VITAMIN D LEVEL ONCE IN A LIFETIME-USE SMARTSET# [id number] Completed 10/16/2021, 12/27/2018 Alpha-1 Antitrypsin Discontinued GARDASIL-HPV [...] this encounter Medical Devices Implanted Type Area Pocket Flap Creasing Machine Operator Device Identifier Shelf Expiration Date Model / Serial / Lot Stent Graft Icast [id number] - [id number] - [id number] Implanted:Qty : 1 on 04/14/2022 by Nnamdi King MD at OR [facility] N/A: Mesenteric Artery GETINGE : VITOR [id number] 02/21/2023 [id number] / [id number] / [id number] Description:implanted in SMA Stent Howie 3.0x15 Rx - [id number] Implanted:Qty : 1 on 11/12/2022 by Patrice Jose MD at CARDIAC LABS [facility] [employer] : VASCULAR [id number] 11/28/2023 [id number] / / [id number] 2 documented as of this encounter Visit Diagnoses Diagnosis PVD (peripheral vascular disease) (HCC)- Primary Peripheral vascular disease, unspecified Mesenteric ischemia, chronic (HCC) Chronic vascular insufficiency of intestine Bilateral carotid artery stenosis Occlusion and stenosis of multiple and bilateral precerebral arteries without mention of cerebral infarction Cardiac arrest (HCC) Cardiac arrest Atherosclerosis of [place] artery of left lower extremity with ulceration of other part of foot (HCC)- Primary Atherosclerotic PVD with ulceration (HCC) Atherosclerosis of [place] arteries of the extremities with ulceration Atherosclerosis of [place] artery of left lower extremity with ulceration [...] Yes External Pacemaker? Yes Cardiac Drugs? Yes Code Status History Code Status Date Activated Date Inactivated Comments Full Code 01/08/2023 12:33 AM 01/08/2023 3:00 [...] Pacemaker? Yes Cardiac Drugs? Yes Full Code 11/04/2022 4:43 PM 11/07/2022 8:03 AM This order reflects the patients wishes and were consensually agreed upon. Question Answer Comments Discussion of Advance Directives occurred with: Not Discussed due to patient's condition Healthcare Agents on File Name Relationship Healthcare Agent Relationshi p Communication Diamond Braxton Adult Child Health Care Repr esentative (appointed verbally by patient or by statute hierarchy) Care Teams Shipper/Receiver Relationship Specialty Start Date End Date Courtney Restrepo MD [address] [place] [address] [place] [phone] PCP - General Family Medicine 10/17/19 documented as of this encounter
--- OUTSIDE RECORDS SUMMARY | 2023-08-31 06:34 | External Medical Summary ---
Author Name Unknown Address Unknown Organization : Laboratory Report Ordering Provider Test Date Status CHIKIS CASTILLO 06/07/2023 09:11:41 Final Observation Date Value Abnormality Reference (Units ) Status Glucose Point of Care 06/07/2023 09:11:41 153 Above high normal 70-120 (mg/dL) Final Performing Location
--- OUTSIDE RECORDS SUMMARY | 2023-08-31 06:34 | External Medical Summary ---
Author Name Unknown Address Unknown Organization K01:LABORATORY [facility] - [address] [place] [address] Laboratory Report Ordering Provider Test Date Status KERRY CUNNINGHAM 06/08/2023 05:36:00 Final Observation Date Value Abnormality Reference (Units ) Status Magnesium 06/08/2023 05:36:00 1.9 1.5-2.6 (m g/dL) Final Performing Location [facility] - [address] [facility] [address]
--- OUTSIDE RECORDS SUMMARY | 2023-08-31 06:34 | External Medical Summary ---
Author Name Unknown Address Unknown Organization [id number]:LABORATORY [facility] - [address] [address] Laboratory Report Ordering Provider Test Date Status WILMER BORJA 06/07/2023 08:43:00 Final Observation Date Value Abnormality Reference (Units ) Status ABO 06/07/2023 08:43:00 A Final RH 06/07/2023 08:43:00 Positive Final RED BLOOD CELL ANTIBODY SCREEN 06/07/2023 08:43:00 Negative Final SPECIMEN EXPIRATION DATE 06/07/2023 08:43:00 06/10/2023 23:59 Final Performing Location LABORATORY [facility] - [address] [address]
--- OUTSIDE RECORDS SUMMARY | 2023-08-31 06:34 | External Medical Summary ---
Author Name Unknown Address Unknown Organization K01:LABORATORY [facility] [place] - [facility] [address] [facility] [address] Laboratory Report Ordering Provider Test Date Status ZACH GALLEGO 06/07/2023 08:43:00 Final Observation Date Value Abnormality Reference (Units ) Status WBC, Total 06/07/2023 08:43:00 12.54 Above high normal 4.00-10.80 (K/uL) Final RBC 06/07/2023 08:43:00 4.78 3.85-5.15 (M/uL) Final Hemoglobin 06/07/2023 08:43:00 14.0 12.0-15.3 (g/dL) Final HCT 06/07/2023 08:43:00 43.5 36.0-45.2 (%) Final MCV 06/07/2023 08:43:00 91.0 81.5-97.5 (fL) Final MCH 06/07/2023 08:43:00 29.3 27.0-34.0 (pg) Final MCHC 06/07/2023 08:43:00 32.2 32.0-36.0 (g/dL) Final RDW 06/07/2023 08:43:00 14.7 11.5-15.5 (%) Final Platelets 06/07/2023 08:43:00 300 140-400 (K/uL) Final MPV 06/07/2023 08:43:00 10.5 6.6-11.1 (fL) Final Nucleated erythrocytes/100 leukocytes [Ratio] in Blood by Automated count 06/07/2023 08:43:00 0 <=0 (/100 WBCs) Final Performing Location LABORATORY [facility] [place] - [address] [facility] [address]
--- OUTSIDE RECORDS SUMMARY | 2023-08-31 06:34 | External Medical Summary ---
Author Name Unknown Address Unknown Organization K01:LABORATORY [facility] [place] - [address] [facility] [address] Laboratory Report Ordering Provider Test Date Status KERRY CUNNINGHAM 06/08/2023 05:36:00 Final Observation Date Value Abnormality Reference (Units ) Status HbA1C 06/08/2023 05:36:00 9.1 Above high normal 4. 0-5.6 (%) Final The use of HbA1c to monitor glycemic status is based on normal hemoglobin and HbA composition. This test should not be used in patients with abnormal hemoglobin that affects the half life of the red blood cell or the in vivo glycation rates. Glucose, estimated average 06/08/2023 05:36:00 214 Above high normal <126 (mg/dL) Grayson macias Performing Location LABORATORY [facility] - [address] [facility] [address]
--- OUTSIDE RECORDS SUMMARY | 2023-08-31 06:34 | External Medical Summary ---
Author Name Unknown Address Unknown Organization : Laboratory Report Ordering Provider Test Date Status DIRK GO 06/07/2023 16:46:52 Final Observation Date Value Abnormality Reference (Units ) Status Glucose Point of Care 06/07/2023 16:46:52 176 Above high normal 70-120 (mg/dL) Final Performing Location
--- OUTSIDE RECORDS SUMMARY | 2023-08-31 06:34 | External Medical Summary ---
Author Name Unknown Address Unknown Organization : Laboratory Report Ordering Provider Test Date Status DIRK GO 06/07/2023 21:33:48 Final Observation Date Value Abnormality Reference (Units ) Status Glucose Point of Care 06/07/2023 21:33:48 210 Above high normal 70-120 (mg/dL) Final Performing Location
--- OUTSIDE RECORDS SUMMARY | 2023-08-31 06:34 | External Medical Summary | Summary of Care ---
Author Name Unknown Organization [facility] Address [address] [place] [address] Phone [phone] Care Team Providers Care Hydraulic Modeling Engineer Name Role Phone Courtney Restrepo MD Primary Care Prov ider Reason for Visit * Reason Onset Date Comments Appointment 06/01/2023 FYI 06/01/2023 Encounter Details Date Type Department Care Team (Late st Contact Info) Description 06/01/2023 Telephone Family Medicine [address] [phone] Christie Harrison PA-C [address] [place] [address] [place] [phone] Appointment; Allergies Active Allergy Reactions Criticality Noted Date [...] edema Nitroglycerin Hypotension 12/20/2018 Penicillins Nausea/vomiting 05/17/2007 [place]idan Hives 10/02/2018 Propoxyphene Edema face/lips/tongue,Hiv es 06/26/2009 [...] of Breath. 100 mL 3 11/29/2022 Active Geelbe Delica Lancets 30GIndications:Type 2 diabetes mellitus with hemoglobin A1c goal of less than 8.0% (HCC) Use to test glucose daily. E11.9 100 Each 5 11/29/2022 Active Cherwell SoftwareTouch Verio w/Device KitIndications:Type 2 diabetes mellitus with [...] 60 Blister Dosing Unit 5 11/29/2022 Active Sodium Chloride 4 MEQ/ML Oral Solution Take by mouth. 0 Active NovoLOG FlexPen 100 UNIT/ML Subcutaneous Solution Pen-injector (insulin aspart)Indications:T ype 2 diabetes mellitus with hemoglobin A1c goal of less than 8.0% ([facility]) Units as per sliding scale 3 mL 3 02/04/2023 Active Insulin Glargine Solostar 100 UNIT/ML Subcutaneous Solution Pen-injector (Lantus SoloStar)Indications :Type 2 diabetes mellitus with hemoglobin A1c goal of less than 8.0% ([facility]) Inject 10 Units under the skin every night at bedtime. Lantus SoloStar Brand Necessary 3 mL 3 02/04/2023 Active Multivitamin Adult (Minerals) Oral Tablet Take by mouth. 0 Active Vitamin D 125 MCG (5000 UT) Oral Capsule Take 1 Capful by mouth in the morning and 1 Capful before bedtime. 0 Active Spironolactone 25 MG Oral Tablet (Aldactone)Indicatio ns:Hypertensive heart disease with acute on chronic diastolic congestive heart failure ([facility]) Take 2 Tablets by mouth in the morning. 180 Tablet 3 02/07/2023 Active Align Extra Strength Oral Capsule Take [...] at bedtime. 120 Tablet 0 04/29/2023 Active HYDROcodone-Acetamin ophen 5-325 MG Oral TabletIndications:Ch ronic midline thoracic back pain Take 1 Tablet by mouth 2 times a day as needed for Pain, Severe. 60 Tablet 0 05/06/2023 Active Polyethylene Glycol 3350 17 GM/SCOOP Oral Powder (MiraLax)Indications :Other constipation Dissolve one heaping tablespoon in 8 ounces of water or juice - one dose per day as needed for severe constipation 225 g 2 05/23/2023 Active Gabapentin 100 MG Oral Capsule (Neurontin) Take 1 Capsule by mouth at bedtime. 30 Capsule 3 06/02/2023 Active documented as of this encounter (statuses [...] rinse after steroid. Test performed by Bibiana SIGNAL MAINTAINER CPFT Old [place] (myocardial infarction) 02/21/2019 Bilateral carotid artery stenosis [...] osteoporosis 07/03/2018 Reactive depression 11/17/2017 Atherosclerosis of [place]osh[place]pai[place] co ronary artery of shosh[place]ai[place] heart without angina pectoris 07/22/2015 Overview: Single [...] rinse after steroid. Test performed by Bibiana SIGNAL MAINTAINER CPFT GENERAL OSTEOARTHROSIS BMI 32.0-32.9,adult Tobacco use [...] ISCHEMIC HRT DIS NOS Coronary atherosclerosis of shosh[place]ai[place] coronary artery 11/24/2016 Tobacco abuse 11/17/2017 documented [...] 0.3 61.8 Started: 1962 Smokeless Tobacco: Never Comments:04/06/23 4 [...] Telephone Encounter - Courtney Restrepo MD - 06/02/2023 3:07 PM EDT Noted * Telephone Encounter - Crystal Hutson LPN - 06/01/2023 12:33 PM EDT Patient is calling. She cancelled her upcoming appt. With Christie. Said there is nothing that can be done and she is going to lose her foot. Called back. Asked for an appt. With her primary doctor. Placed on Tuesday 06/06 @ 10:40 a.m. Said she feels better when she speaks to her own doctor. She has a way about her to calm her down. Lets her know what is going to happen. documented in this encounter Plan of Treatment Upcoming Encounters Date Type Department Care Team (Latest Contact Info) Description 06/07/2023 9:52 AM EDT Hospital Encounter [place] [facility] OPERATING ROOM [facility] [address] [place] [address] Nnamdi King MD [address] [place], [place] [phone] 06/07/2023 9:52 AM EDT - 06/07/2023 12:31 PM EDT Surgery [place] [facility], [facility]PER[facility]OM [facility] [address] [place] [address] Nnamdi King MD [address], [place] [phone] AMPUTATION LEG THROUGH TIBIA AND FIBULA 06/29/2023 10:30 AM EDT Office Visit Vascular Surgery, [address] [address] Nnamdi King MD [address], [place] [phone] 10/10/2023 4:00 PM EDT Office Visit Nephrology, [address] [place] [address] Charla Potter MD [address] [place] [address] 12/07/2023 9:20 AM EDT Office Visit Family Medicine [address] [place] [phone] Courtney Restrepo MD [address] [place] [address] [place] [address] Scheduled Procedures Name Priority Associated Diagnoses Date/Ti me AMPUTATION LEG THROUGH TIBIA AND FIBULA 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 (HCC) 06/07/2023 9:52 AM EDT ESOPHAGOGASTRODUODENOSCOPY ( EGD), FLEXIBLE, TRANSORAL, DIAGNOSTIC Recall Pendleton's esophagus Health Maintenance Due Date Last Done Comments DISCUSS TOBACCO CESSATION (REFER TO SMARTSET #3294) 1950 *ADVANCE DIRECTIVE NOT ON FILE 06/28/2020 [...] D LEVEL ONCE IN A LIFETIME-USE SMARTSET# [id number] Completed 10/16/2021, 12/27/2018 Alpha-1 Antitrypsin Discontinued GARDASIL-HPV [...] this encounter Medical Devices Implanted Type Area Sewing Machine Operator Zipper Device Identifier Shelf Expiration Date Model / Serial / Lot Stent Graft Icast [id number] - [id number] - [id number] Implanted:Qty : 1 on 04/14/2022 by Nnamdi King MD at [place] [facility] N/A: Mesenteric Artery GETINGE : MAANASTASIYAT [id number] 02/21/2023 [id number] / [id number] / [id number] Description:implanted in SMA Stent [place] 3.0x15 Rx - [id number] Implanted:Qty : 1 on 11/12/2022 by Patrice Jose MD at [facility] [employer] : VASCULAR [id number] 11/28/2023 [id number] / / [id number] documented as of this encounter Advance [...] patient or by statute hierarchy) Care Teams Hydraulic Modeling Engineer Relationship Specialty Start Date End Date Courtney Restrepo MD [address] [place] [address] [place] [phone] PCP - General Family Medicine 10/17/19 documented as of this encounter
--- OUTSIDE RECORDS SUMMARY | 2023-08-31 06:34 | External Medical Summary ---
Author Name Unknown Address Unknown Organization : Laboratory Report Ordering Provider Test Date Status CHIKIS CASTILLO 06/07/2023 11:08:14 Final Observation Date Value Abnormality Reference (Units ) Status Glucose Point of Care 06/07/2023 11:08:14 187 Above high normal 70-120 (mg/dL) Final Performing Location
--- OUTSIDE RECORDS SUMMARY | 2023-08-31 06:34 | External Medical Summary | Summary of Care ---
Author Name Unknown Organization [facility] Address [address] [place] [address] Phone [phone] Care Team Providers Care Manager Delivery Name Role Phone Courtney Restrepo MD Primary Care Prov ider Reason for Visit * Reason Onset Date Comments Call Back 06/01/2023 Encounter Details Date Type Department Care Team (Late st Contact Info) Description 06/01/2023 Telephone Vascular Surg [facility] [address] [place] [address] Services, [facility] [address] [place] [address] Call Back Allergies Active Allergy Reactions Criticality [...] edema Nitroglycerin Hypotension 12/20/2018 Penicillins Nausea/vomiting 05/17/2007 [place] Hives 10/02/2018 Propoxyphene Edema face/lips/tongue,Hiv es 06/26/2009 [...] on chronic diastolic congestive heart failure ([facility]) Take 2 Tablets by mouth in the [...] constipation 225 g 2 4 Active Gabapentin 100 MG Oral Capsule (Neurontin) Take 1 Capsule by mouth at bedtime. 30 Capsule 3 4 Active Gabapentin 300 MG [...] rinse after steroid. Test performed by Bibiana CAR DISPATCHER CPFT Old [place] (myocardial infarction) 02/21/2019 Bilateral carotid artery stenosis [...] osteoporosis 07/03/2018 Reactive depression 11/17/2017 Atherosclerosis of jena co ronary artery of jena heart without angina pectoris 07/22/2015 Overview: Single [...] Check dial performed to assess inhaler technique: 01/29/20. Name of inhalers Albuterol and Flovent Pass: Yes at 60L/min and Anoro Ellipt Pass: Yes at 45L/min. Encourage to take slow deep breaths, use aero chamber, and rinse after steroid. Test performed by [facility]iana CAR DISPATCHER CPFT GENERAL OSTEOARTHROSIS BMI 32.0-32.9,adult Tobacco [...] ISCHEMIC HRT DIS NOS Coronary atherosclerosis of jena coronary artery 11/24/2016 Tobacco abuse 11/17/2017 documented [...] encounter Miscellaneous Notes * Addendum Note - Lashonda Bryant CRNP - 06/02/2023 12:23 PM EDTAddended by: LASHONDA BRYANT on: 06/02/2023 12:23 PM Modules accepted: Orders * Telephone Encounter - Lashonda Bryant CRNP - 06/02/2023 12:10 PM EDT Telephone call to Ms. Khan who voices desire to move forward with BKA. She agrees to have BKA completed on 06/07/[address] King. Pre operative instructions provided over the phone to include: -NPO after midnight. -Holding Plavix starting now. -Holding short acting insulin morning of surgery -Taking half the normal dose of her long acting insulin the night before surgery. -Take all other normal morning medications, to include ASA, with small sip of water prior to leaving home morning of surgery. Understanding and agreement of above was voiced. She also noted that her 300 mg Gabapentin QHS was helpful but she was experiencing dizziness. Will call in new prescription for 100 mg Gabapentin to be taken at bedtime in hopes of alleviating unwanted side effects. Also discussed possibility of BKA prosthesis in the future. * Telephone Encounter - Carina Mcallister CRNP - 06/01/2023 4:[address] King is in clinic 06/02/23 and 06/03/23 I will send a message to Dr. King to see if he would like to the patient to come back to clinic to discuss/book surgery or if we can arrange over the phone. * Telephone Encounter - Cecilia Rahman OSA - 06/01/2023 1:05 PM EDT Pt called stating she wishes to set up the procedure to have amputation scheduled - she does not wish to wait until 06/28 to give her decision - she has made up her mind. Please call pt. documented in this encounter Plan of Treatment Upcoming Encounters Date Type Department Care Team (Latest Contact Info) Description 06/07/2023 9:52 AM EDT Hospital Encounter [facility], [facility] [address] [place] [address] Nnamdi King MD [address] [place] [address] 06/07/2023 9:52 AM EDT - 06/07/2023 12:31 PM EDT Surgery [facility], [facility] [address] [place] [address] Nnamdi King MD [address] [place] [address] AMPUTATION LEG THROUGH TIBIA AND FIBULA 06/29/2023 10:30 AM EDT Office Visit Vascular Surgery, [facility] [address] [facility] [place] [address] [facility] [address] [facility] [address] 10/10/2023 4:00 PM EDT Office Visit Nephrology, [facility] [address] [place] [address] Charla Potter MD [address] [place] [phone] 12/07/2023 9:20 AM EDT Office Visit Family Medicine [address] [phone] Courtney Restrepo MD [address] [place] [address] [place] [address] Scheduled Procedures Name Priority Associated Diagnoses Date/Ti me AMPUTATION LEG THROUGH TIBIA AND FIBULA 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 (HCC) 06/07/2023 9:52 AM EDT ESOPHAGOGASTRODUODENOSCOPY ( EGD), FLEXIBLE, TRANSORAL, DIAGNOSTIC Recall Pendleton's esophagus Health Maintenance Due Date Last Done Comments DISCUSS TOBACCO CESSATION (REFER TO SMARTSET #3063) 1950 *ADVANCE DIRECTIVE NOT ON FILE 06/28/2020 [...] D LEVEL ONCE IN A LIFETIME-USE SMARTSET# [id number] Completed 10/16/2021, 12/27/2018 Alpha-1 Antitrypsin Discontinued GARDASIL-HPV [...] this encounter Medical Devices Implanted Type Area Elastic Cutter Device Identifier Shelf Expiration Date Model / Serial / Lot Stent Graft Icast [id number] - [id number] - [id number] Implanted:Qty : 1 on 04/14/2022 by Nnamdi King MD at OR [facility] N/A: Mesenteric Artery GETINGE : VITOR [id number] 02/21/2023 [id number] / [id number] / [id number] Description:implanted in SMA Stent [place] 3.0x15 Rx - [id number] Implanted:Qty : 1 on 11/12/2022 by Patrice Jose MD at [facility]ARDIAC LABS [facility] [employer] : VASCULAR [id number] 11/28/2023 [id number] / / [id number] documented as of this encounter Advance [...] or by statute hierarchy) Care Teams Manager Delivery Relationship Specialty Start Date End Date Courtney Restrepo MD [address] [place] [address] [place] [phone] PCP - General Family Medicine 10/17/19 documented as of this encounter
--- OUTSIDE RECORDS SUMMARY | 2023-08-31 06:34 | External Medical Summary ---
Author Name Unknown Address Unknown Organization K01:[facility]ORY [facility] [place] [address] [place] [address] Laboratory Report Ordering Provider Test Date Status ZACH GALLEGO 06/07/2023 08:43:00 Final Observation Date Value Abnormality Reference (Units ) Status BUN 06/07/2023 08:43:00 17 6-20 (mg/dL) Final Creatinine 06/07/2023 08:43:00 0.8 0.5-1.0 (mg/dL) Final Glomerular filtration rate/1.73 sq M.predicted [Volume Rate/Area] in Serum, Plasma or Blood by Creatinine-based formula (CKD-EPI) 06/07/2023 08:43:00 77 >=60 (mL/min) Final eGFR is calculated based on the CKD-EPI 2020 equation Sodium 06/07/2023 08:43:00 135 135-146 (m mol/L) Final Potassium 06/07/2023 08:43:00 4.6 3.5-5.1 (m mol/L) Final Cl 06/07/2023 08:43:00 100 98-107 (mm ol/L) Final CO2 06/07/2023 08:43:00 26 22-32 (mmo l/L) Final Anion gap 06/07/2023 08:43:00 9 7-15 (mmol /L) Final Glucose 06/07/2023 08:43:00 168 Above high normal 70 -120 (mg/dL) Final Calcium 06/07/2023 08:43:00 10.5 Above high normal 8. 4-10.2 (mg/dL) Final Performing Location [facility] [place] [address] [place] [address]
--- OUTSIDE RECORDS SUMMARY | 2023-08-31 06:34 | External Medical Summary | Summary of Care ---
Author Name Unknown Organization [facility] Address [address] [place] [address] Phone [phone] Care Team Providers Care Automation Architect Name Role Phone Courtney Restrepo MD Primary Care Prov ider Reason for Visit * Reason Onset Date Comments Lung Cancer Screening Outreach 06/07/2023 Encounter Details Date Type Department Care Team (Late st Contact Info) Description 06/07/2023 Telephone Thoracic Surg [facility] [address] [place] [address] Zenia Sue RN Lung Cancer Screening Outreach Allergies Active Allergy Reactions Criticality Noted Date [...] edema Nitroglycerin Hypotension 12/20/2018 Penicillins Nausea/vomiting 05/17/2007 [place] Hives 10/02/2018 Propoxyphene Edema face/lips/tongue,Hiv es 06/26/2009 documented as of this encounter (statuses as of 06/07/2023) Medications Medication Sig Dispensed Refills Start Date [...] chew the tablet. 180 Tablet 3 2 Suspended Additional Information Albuterol Sulfate HFA 108 (90 Base) MCG/ACT Inhalation Aerosol SolutionIndications :Bacterial pneumonia Use two puffs four times a day as needed for shortness of breath/wheezing 18 g 3 3 Suspended Additional Information Loratadine 10 MG Oral Tablet (Claritin) Take 1 Tablet by mouth in the morning. 90 Tablet 3 3 Suspended Additional Information busPIRone HCl 15 MG Oral Tablet (Buspar)Indications :Anxiety TAKE ONE TABLET TWICE DAILY 180 Tablet 1 3 Suspended Additional Information Clopidogrel Bisulfate 75 MG Oral Tablet (pLAVix)Indications [...] 180 Capsule 2 3 Suspended Additional Information Ipratropium-Albuter ol 0.5-2.5 (3) MG/3ML Inhalation Solution (Duoneb)Indications :COPD exacerbation (HCC) Inhale 3 mL via nebulizer every 4 hours as needed for Shortness of Breath. 100 mL 3 3 Suspended Additional Information OneTouch Delica Lancets 30GIndications:Type 2 diabetes mellitus with hemoglobin A1c goal of less than 8.0% (HCC) Use to test glucose daily. E11.9 100 Each 5 3 Suspended Additional Information OneTouch Verio w/Device KitIndications:Type 2 diabetes mellitus [...] Dosing Unit 5 3 Suspended Additional Information Sodium Chloride 4 MEQ/ML Oral Solution Take by mouth. 0 Suspended NovoLOG FlexPen 100 UNIT/ML Subcutaneous Solution Pen-injector (insulin aspart)Indications: Type 2 diabetes mellitus with hemoglobin A1c goal of less than 8.0% ([facility]) Units as per sliding scale 3 mL 3 3 Suspended Additional Information Insulin Glargine Solostar 100 UNIT/ML Subcutaneous Solution Pen-injector (Lantus SoloStar)Indication s:Type 2 diabetes mellitus with hemoglobin A1c goal of less than 8.0% ([facility]) Inject 10 Units under the skin every night at bedtime. Lantus SoloStar Brand Necessary 3 mL 3 3 Suspended Additional Information Multivitamin Adult (Minerals) Oral Tablet Take by mouth. 0 Suspended Vitamin D 125 MCG (5000 UT) Oral Capsule Take 1 Capful by mouth in the morning and 1 Capful before bedtime. 0 Suspended Spironolactone 25 MG Oral Tablet (Aldactone)Indicati ons:Hypertensive heart disease with acute on chronic diastolic congestive heart failure (HCC) Take 2 Tablets by mouth in the morning. 180 Tablet 3 3 Suspended Additional Information Align Extra Strength Oral Capsule Take 1 Capsule by mouth every evening. 0 Suspended OneTouch Verio In Vitro Strip (Glucose Blood)Indications:T ype 2 diabetes mellitus with hemoglobin A1c goal of less than 8.0% ([facility]) Test glucose once daily E11.9 100 Strip 5 3 Suspended Additional Information Calcium Carbonate 600 MG Oral Tablet (Calcium 600) Take 1 Tablet by mouth 2 times a day with morning and evening meals. 0 Suspended Lidocaine 4 % External Patch (Aspercreme) Place 1 Patch over 12 hours topically on the skin daily. 30 Patch 0 4 Suspended Additional Information Ondansetron HCl 4 MG Oral Tablet (Zofran)Indications :Nausea Take 1 Tablet by mouth every 8 hours as needed for Nausea. 20 Tablet 0 4 Suspended Additional Information Sucralfate 1 GM Oral Tablet (Carafate) Take 1 Tablet by mouth 4 times a day before meals and at bedtime. 120 Tablet 0 4 Suspended Additional Information Polyethylene Glycol 3350 17 GM/SCOOP Oral Powder (MiraLax)Indication s:Other constipation Dissolve one heaping tablespoon in 8 ounces of water or juice - one dose per day as needed for severe constipation 225 g 2 4 Suspended Additional Information Gabapentin 100 MG Oral Capsule (Neurontin) Take 1 Capsule by mouth at bedtime. 30 Capsule 3 4 Suspended Additional Information documented as of this encounter (statuses as of 06/07/2023) Active Problems Problem Noted Date Diagnosed Date [...] rinse after steroid. Test performed by Bibiana ALARM TECHNICIAN CPFT [place] (myocardial infarction) 02/21/2019 Bilateral [...] osteoporosis 07/03/2018 Reactive depression 11/17/2017 Atherosclerosis of [place] co ronary artery of [place] heart without angina pectoris 07/22/2015 Overview: Single [...] rinse after steroid. Test performed by Bibiana ALARM TECHNICIAN CPFT GENERAL OSTEOARTHROSIS BMI 32.0-32.9,adult Tobacco use disorder Hyperlipidemia with target LDL less than 70 Overview: ICD-10 update of inactive term RSD upper limb Overview: left arm Generalized anxiety disorder documented as of this encounter (statuses as of 06/07/2023) Resolved Problems Problem Noted Date Diagnosed Date [...] ISCHEMIC HRT DIS NOS Coronary atherosclerosis of [place] coronary artery 11/24/2016 Tobacco abuse 11/17/2017 documented as of this encounter (statuses as of 06/07/2023) Immunizations Name Administration Dates Next Due COVID-19 [...] Miscellaneous Notes * Telephone Encounter - Zenia Sue RN - 06/07/2023 1:39 PM EDT Lung Cancer Screening Program (LCSP) High Risk Outreach Call Summary 06/07/2023 Through advanced analysis/trending of this patient's history, they have been identified to have a positive Lung flag and are at a higher risk for lung cancer. This advanced analysis estimates the patient's risk for lung cancer. It only indicates that the patient's chances to have this condition are higher compared to most people. It does not indicate that the patient has this condition, but it is highly recommended the patient have a low dose CT screening for further evaluation. Pt with ct thorax on 01/26/2023-to have PET CT Zenia Sue RN documented in this encounter Plan of Treatment Upcoming Encounters Date Type Department Care Team (Late st Contact Info) Description 06/29/2023 10:30 AM EDT Office Visit Vascular Surgery, 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) 06/07/2023 8:20 AM EDT ESOPHAGOGASTRODUODENOSCOPY ( EGD), FLEXIBLE, TRANSORAL, DIAGNOSTIC Recall Pendleton's esophagus Health Maintenance Due Date Last Done Comments DISCUSS TOBACCO CESSATION (REFER TO SMARTSET #3297) 1950 *ADVANCE DIRECTIVE NOT ON FILE 06/28/2020 [...] 09/28/2023 09/27/2018, 09/27/2018, 07/13/2018, Additional history exists Depression Screening 02/11/2024 02/10/2023 Albumin/Creatinine Ratio 04/13/2024 024, 04/13/2022, 06/03/2021, Additional history exists Mammogram 05/19/2024 05/20/2023, 08/2021, 05/12/2017, Additional history exists GFR 06/06/2024 06/07/2023, 04/15, 03/10/2023, Additional history exists O2 ASSESSMENT COMPLETED IN PAST YEAR FOR COPD 06/06/2024 06/07/2023 DTaP,Tdap,and Td Vaccines (3 - Td or Tdap) 07/15/2031 07/14/2021 (Declined), 07/27/2010 Pneumococcal Vaccine: 65+ Years Completed 10/27/2015, 08/08/2014, 05/30/2008 VITAMIN D LEVEL ONCE IN A LIFETIME-USE SMARTSET# [id number] Completed 10/16/2021, 12/27/2018 Alpha-1 Antitrypsin Discontinued GARDASIL-HPV [...] this encounter Medical Devices Implanted Type Area Security Associate Device Identifier Shelf Expiration Date Model / Serial / Lot Stent Graft Icast [id number] - [id number] - [id number] Implanted:Qty : 1 on 04/14/2022 by Nnamdi King MD [place] [facility] [place] Mesenteric Artery GETINGE : VITOR [id number] 02/21/2023 [id number] / [id number] / [id number] Description:implanted in SMA Stent [place] 3.0x15 Rx - [id number] Implanted:Qty : 1 on 11/12/2022 by Patrice Jose MD at [facility] [place] [facility] [employer] : VASCULAR [id number] 11/28/2023 [id number] / / [id number] documented as of this encounter Advance Directives Latest Code Status on File Code Status Date Activated Date Inactivated Comments Full Code 06/07/2023 11:27 AM This orde r reflects the patients wishes and were consensually agreed upon. Question Answer Comments Discussion of Advance Directives occurred with: Patient Does the patient have a Living Will? Yes, in chart and reviewed as current Does the patient have Health Care Power of Bleach Mixer? Yes, in chart and reviewed as current [...] patient or by statute hierarchy) Care Teams Automation Architect Relationship Specialty Start Date End Date Courtney Restrepo MD [address] [place] [address] [place] [address] PCP - General Family Medicine 10/17/19 documented as of this encounter
--- OUTSIDE RECORDS SUMMARY | 2023-08-31 06:34 | External Medical Summary ---
Author Name Unknown Address Unknown Organization [id number]:LABORATORY [facility] [place] - [address] [facility] [address] Laboratory Report Ordering Provider Test Date Status KERRY CUNNINGHAM 06/08/2023 05:36:00 Final Observation Date Value Abnormality Reference (Units ) Status BUN 06/08/2023 05:36:00 14 6-20 (mg/dL) Final Creatinine 06/08/2023 05:36:00 0.8 0.5-1.0 (mg/dL) Final Glomerular filtration rate/1.73 sq M.predicted [Volume Rate/Area] in Serum, Plasma or Blood by Creatinine-based formula (CKD-EPI) 06/08/2023 05:36:00 80 >=60 (mL/min) Final eGFR is calculated based on the CKD-EPI 2020 equation Sodium 06/08/2023 05:36:00 139 135-146 (m mol/L) Final Potassium 06/08/2023 05:36:00 4.6 3.5-5.1 (m mol/L) Final Cl 06/08/2023 05:36:00 102 98-107 (mm ol/L) Final CO2 06/08/2023 05:36:00 28 22-32 (mmo l/L) Final Anion gap 06/08/2023 05:36:00 9 7-15 (mmol /L) Final Glucose 06/08/2023 05:36:00 100 70-120 (mg /dL) Final Albumin 06/08/2023 05:36:00 3.7 Below low normal 3.8 -5.0 (g/dL) Final AST (Aspartate aminotransferase) 06/08/2023 05:36:00 55 Above high normal 10-35 (U/L) Final Result may be falsely elevat ed due to hemolysis. Alk Phos 06/08/2023 05:36:00 93 35-130 (U/ L) Final Bilirubin, Total 06/08/2023 05:36:00 0.6 <=1 .2 (mg/dL) Final Calcium 06/08/2023 05:36:00 9.6 8.4-10.2 ( mg/dL) Final Protein 06/08/2023 05:36:00 6.3 6.0-8.3 (g /dL) Final ALT (Alanine aminotransferase) 06/08/2023 05:36:00 16 10-35 (U/L) Final Performing Location LABORATORY [facility] [place] - [address] [facility] [address]
--- OUTSIDE RECORDS SUMMARY | 2023-08-31 06:34 | External Medical Summary ---
Author Name Unknown Address Unknown Organization K01:LABORATORY [place] [address] [facility] [address] [place] [address] Laboratory Report Ordering Provider Test Date Status KERRY CUNNINGHAM 06/08/2023 05:36:00 Final Observation Date Value Abnormality Reference (Units ) Status WBC, Total 06/08/2023 05:36:00 12.76 Above high normal 4.00-10.80 (K/uL) Final RBC 06/08/2023 05:36:00 3.84 3.85-5.15 (M/uL) Final Hemoglobin 06/08/2023 05:36:00 11.4 Below low normal 12.0-15.3 (g/dL) Final HCT 06/08/2023 05:36:00 35.6 Below low normal 36.0-45.2 (%) Final MCV 06/08/2023 05:36:00 92.7 81.5-97.5 (fL) Final MCH 06/08/2023 05:36:00 29.7 27.0-34.0 (pg) Final MCHC 06/08/2023 05:36:00 32.0 32.0-36.0 (g/dL) Final RDW 06/08/2023 05:36:00 14.6 11.5-15.5 (%) Final Platelets 06/08/2023 05:36:00 246 140-400 (K/uL) Final MPV 06/08/2023 05:36:00 10.1 6.6-11.1 (fL) Final Nucleated erythrocytes/100 leukocytes [Ratio] in Blood by Automated count 06/08/2023 05:36:00 0 <=0 (/100 WBCs) Final Performing Location [place] [facility] [place] [address] [place] [address]
--- OUTSIDE RECORDS SUMMARY | 2023-08-31 06:34 | External Medical Summary ---
Author Name Unknown Address Unknown Organization : Laboratory Report Ordering Provider Test Date Status EDUARDO STEEN 06/08/2023 07:49:45 Final Observation Date Value Abnormality Reference (Units ) Status Glucose Point of Care 06/08/2023 07:49:45 98 70-120 (mg/dL) Final Performing Location
--- OUTSIDE RECORDS SUMMARY | 2023-08-31 06:34 | External Medical Summary | Summary of Care ---
Author Name Unknown Organization [facility] Address [address] [place] [address] Phone [phone] Care Team Providers Care Investigation Manager Name Role Phone Courtney Restrepo MD Primary Care Prov ider Encounter Details Date Type Department Care Team (Late st Contact Info) Description 06/08/2023 Population Health External Data Unspecified Department Allergies [...] edema Nitroglycerin Hypotension 12/20/2018 Penicillins Nausea/vomiting 05/17/2007 [place] Hives 10/02/2018 Propoxyphene Edema face/lips/tongue,Hiv es 06/26/2009 documented as of this encounter (statuses as of 06/08/2023) Medications Medication Sig Dispensed Refills Start Date [...] as of this encounter (statuses as of 06/08/2023) Active Problems Problem Noted Date Diagnosed Date [...] rinse after steroid. Test performed by Bibiana NURSING SERVICE DIRECTOR CPFT [place] (myocardial infarction) 02/21/2019 Bilateral [...] osteoporosis 07/03/2018 Reactive depression 11/17/2017 Atherosclerosis of [place] co ronary artery of [place] heart without angina pectoris 07/22/2015 Overview: Single [...] rinse after steroid. Test performed by Bibiana NURSING SERVICE DIRECTOR CPFT GENERAL OSTEOARTHROSIS BMI 32.0-32.9,adult Tobacco use disorder Hyperlipidemia with target LDL less than 70 Overview: ICD-10 update of inactive term RSD upper limb Overview: left arm Generalized anxiety disorder documented as of this encounter (statuses as of 06/08/2023) Resolved Problems Problem Noted Date Diagnosed Date [...] ISCHEMIC HRT DIS NOS Coronary atherosclerosis of [place] coronary artery 11/24/2016 Tobacco abuse 11/17/2017 documented as of this encounter (statuses as of 06/08/2023) Immunizations Name Administration Dates Next Due COVID-19 [...] Office Visit Vascular Surgery, [facility] [address] [facility] [place] [address] Nnamdi King MD [address] [place] [address] 10/10/2023 4:00 PM EDT Office Visit Nephrology, [address] [place] [address] Charla Potter MD [address] [place], [place] [phone] 12/07/2023 9:20 AM EDT Office Visit Family Medicine [address] [place] [phone] Courtney Restrepo MD [address] [place] [address] [place] [phone] Scheduled Procedures Name Priority Associated Diagnoses Date/Ti [...] PAST YEAR FOR COPD 06/06/2024 06/07/2023 GFR 06/07/2024 06/08/2023, 05/13, 05/11/2023, Additional history exists DTaP,Tdap,and Td Vaccines (3 - Td or Tdap) 07/15/2031 07/14/2021 (Declined), 07/27/2010 Pneumococcal Vaccine: 65+ Years Completed 10/27/2015, 08/08/2014, 05/30/2008 VITAMIN D LEVEL ONCE IN A LIFETIME-USE SMARTSET# [id number] Completed 10/16/2021, 12/27/2018 Alpha-1 Antitrypsin Discontinued GARDASIL-HPV [...] this encounter Medical Devices Implanted Type Area Softball Player Device Identifier Shelf Expiration Date Model / Serial / Lot Stent Graft Icast [id number] - [id number] - [id number] Implanted:Qty : 1 on 04/14/2022 [place]namdi [place] [facility] [place] Mesenteric Artery GETINGE : MAQUET [id number] 02/21/2023 [id number] / [id number] / [id number] Description:implanted in SMA Stent Howie 3.0x15 Rx - [id number] Implanted:Qty : 1 on 11/12/2022 by Patrice Jose [place] [facility] [place] [employer] : VASCULAR [id number] 11/28/2023 [id number] / / [id number] documented as of this encounter Advance [...] the patient have Health Care Power of Federal Appellate Clerk? Yes, in chart and reviewed as [...] patient or by statute hierarchy) Care Teams Investigation Manager Relationship Specialty Start Date End Date Courtney Restrepo MD [address] [place] [address] [place] [address] PCP - General Family Medicine 10/17/19 documented as of this encounter
--- OUTSIDE RECORDS SUMMARY | 2023-08-31 06:34 | External Medical Summary ---
Author Name Unknown Address Unknown Organization K01:[place] [place] [address] [facility] [address] Laboratory Report Ordering Provider Test Date Status ZACH GALLEGO 06/07/2023 12:04:47 Final SCREENING Observation Date Value Abnormality Reference (Units ) Status SARS Coronavirus 2 06/07/2023 12:04:47 Negative N egative Final 2019 Novel Coronavirus not d etected.

This express test was developed and its performance characteristics determined by [employer]. It has not been cleared or approved [...] (RT-PCR) test, or a Centers for Disease Control-acceptable equivalent. The test is performed in a high complexity Clinical Laboratory Improvement Amendments-(CLIA) certified laboratory. The test is acceptable for SARS-CoV-2 diagnosis, surveillance, and travel within the [place] and to most countries. Please check with local testing authorities about requirements before travel.

The validation of bronchial specimens, tracheal aspirates, and sputum for this assay was developed and performance characteristics determined by [employer]. The validation of alternate specimen types has not been cleared or approved by the U.S. Food and Drug Administration (FDA). It has been determined that such clearance is not necessary. Performing Location [facility] [facility] [place] [address] [facility] [address]
--- OUTSIDE RECORDS SUMMARY | 2023-08-31 06:35 | External Medical Summary | Summary of Care ---
Author Name Unknown Organization [facility] Address [address] [place] [address] Phone [phone] Care Team Providers Care Paper Reel Operator Name Role Phone Courtney Restrepo MD Primary Care Prov ider Reason for Visit * Reason Onset Date Comments Call Back 06/01/2023 Encounter Details Date Type Department Care Team (Late st Contact Info) Description 06/01/2023 Telephone Vascular Surg [facility] [address] [place] [address] Services, [facility] [address] [place] [address] Call Back Allergies Active Allergy Reactions Criticality [...] edema Nitroglycerin Hypotension 12/20/2018 Penicillins Nausea/vomiting 05/17/2007 [place] Hives 10/02/2018 Propoxyphene Edema face/lips/tongue,Hiv es 06/26/2009 [...] 2017 classification ([facility]) Inhale 1 puff as directed once a day 1 inhalation daily. Rinse mouth after every use. 60 Blister Dosing Unit 5 3 Active Sodium Chloride 4 MEQ/ML Oral Solution Take by mouth. 0 Active NovoLOG FlexPen 100 UNIT/ML Subcutaneous Solution Pen-injector (insulin aspart)Indications :Type 2 diabetes mellitus with hemoglobin A1c goal of less than 8.0% ([facility]) Units as per sliding scale 3 mL 3 3 Active Insulin Glargine Solostar 100 UNIT/ML Subcutaneous Solution Pen-injector (Lantus SoloStar)Indicatio ns:Type 2 diabetes mellitus with hemoglobin A1c goal of less than 8.0% ([facility]) Inject 10 Units under the skin every [...] on chronic diastolic congestive heart failure ([facility]) Take 2 Tablets by mouth in the morning. 180 Tablet 3 3 Active Align Extra Strength Oral Capsule Take 1 Capsule by mouth every evening. 0 Active OneTouch Verio In Vitro Strip (Glucose Blood)Indications: Type 2 diabetes mellitus with hemoglobin A1c goal of less than 8.0% ([facility]) Test glucose once daily E11.9 100 Strip [...] rinse after steroid. Test performed by Bibiana COLD HEADER OPERATOR CPFT [place] (myocardial infarction) 02/21/2019 Bilateral [...] osteoporosis 07/03/2018 Reactive depression 11/17/2017 Atherosclerosis of [place] co ronary artery of [place] heart without angina pectoris 07/22/2015 Overview: Single [...] rinse after steroid. Test performed by Bibiana COLD HEADER OPERATOR CPFT GENERAL OSTEOARTHROSIS BMI 32.0-32.9,adult Tobacco [...] ISCHEMIC HRT DIS NOS Coronary atherosclerosis of [place] coronary artery 11/24/2016 Tobacco abuse 11/17/2017 documented [...] Team (Late st Contact Info) Description 06/07/2023 Hospital Encounter [facility], OPERATING [facility] KALIE ADKINS [address] [place] [address] Nnamdi King MD [address] [place] [address] 06/07/2023 9:40 AM EDT Office Visit Family Medicine [address] [place] [phone] Courtney Restrepo MD [address] [place] [address] [place] [address] 06/08/2023 11:00 AM EDT Office Visit Cardiology, [address] [place] [address] Frantz Herrera MD [address] [place], [place] [phone] 06/29/2023 10:30 AM EDT Office Visit Vascular Surgery, [facility] [address] [place] [address] Nnamdi King MD [address] [place], [place] [phone] 10/10/2023 4:00 PM EDT Office Visit Nephrology, [facility] [address] [place] [address] Charla Potter MD [address] [place], [place] [phone] Scheduled Procedures Name Priority Associated Diagnoses Date/Ti me AMPUTATION LEG THROUGH TIBIA AND FIBULA 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) ESOPHAGOGASTRODUODENOSCOPY ( EGD), FLEXIBLE, TRANSORAL, DIAGNOSTIC Recall Pendleton's esophagus Health Maintenance Due Date Last Done Comments DISCUSS TOBACCO CESSATION (REFER TO SMARTSET #1482) 1950 *ADVANCE DIRECTIVE NOT ON FILE 06/28/2020 [...] D LEVEL ONCE IN A LIFETIME-USE SMARTSET# [id number] Completed 10/16/2021, 12/27/2018 Alpha-1 Antitrypsin Discontinued GARDASIL-HPV [...] this encounter Medical Devices Implanted Type Area Process Engineering Manager Device Identifier Shelf Expiration Date Model / Serial / Lot Stent Graft Icast [id number] - [id number] - [id number] Implanted:Qty : 1 on 04/14/2022 by Nnamdi King MD at [place] [facility] [place] N/A: Mesenteric Artery GETINGE : VITOR [id number] 02/21/2023 [id number] / [id number] / [id number] Description:implanted in SMA Stent [place] 3.0x15 Rx - [id number] Implanted:Qty : 1 on 11/12/2022 by Patrice Jose MD at [facility] [employer] : VASCULAR [id number] 11/28/2023 [id number] / / [id number] documented as of this encounter Advance [...] patient or by statute hierarchy) Care Teams Paper Reel Operator Relationship Specialty Start Date End Date Courtney Restrepo MD [address] [place] [address] [place] [id number] PCP - General Family Medicine 10/17/19 documented as of this encounter
--- OUTSIDE RECORDS SUMMARY | 2023-08-31 06:35 | External Medical Summary | Summary of Care ---
Author Name Unknown Organization [facility] Address [address] [place] [address] Phone [phone] Care Team Providers Care Disability Rater Name Role Phone Courtney Restrepo MD Primary Care Prov ider Reason for Visit * Reason Onset Date Comments Health Maintenance 06/02/2023 Encounter Details Date Type Department Care Team (Late st Contact Info) Description 06/02/2023 Telephone Family [address] [address] Courtney Restrepo MD [address] [place] [address] [place] [address] Health Maintenance Allergies Active Allergy Reactions Criticality Noted Date [...] edema Nitroglycerin Hypotension 12/20/2018 Penicillins Nausea/vomiting 05/17/2007 [place] Hives 10/02/2018 Propoxyphene Edema face/lips/tongue,Hiv es 06/26/2009 [...] of Breath. 100 mL 3 11/29/2022 Active Rundownuch Delica Lancets 30GIndications:Type 2 diabetes mellitus with [...] :COPD, group C, by GOLD 2017 classification ([facility]) Inhale 1 puff as directed once a day 1 inhalation daily. Rinse mouth after every use. 60 Blister Dosing Unit 5 11/29/2022 Active Sodium Chloride 4 MEQ/ML Oral Solution Take by mouth. 0 Active NovoLOG FlexPen 100 UNIT/ML Subcutaneous Solution Pen-injector (insulin aspart)Indications:T ype 2 diabetes mellitus with hemoglobin A1c goal of less than 8.0% ([facility]) Units as per sliding scale 3 mL 3 02/04/2023 Active Insulin Glargine Solostar 100 UNIT/ML Subcutaneous Solution Pen-injector (Lantus SoloStar)Indications :Type 2 diabetes mellitus with hemoglobin A1c goal of less than 8.0% ([facility]) Inject 10 Units under the skin [...] acute on chronic diastolic congestive heart failure ([facility]) Take 2 Tablets by mouth in the morning. 180 Tablet 3 02/07/2023 Active Align Extra Strength Oral Capsule Take 1 Capsule by mouth every evening. 0 Active OneTouch Verio In Vitro Strip (Glucose Blood)Indications:Ty pe 2 diabetes mellitus with hemoglobin A1c goal of less than 8.0% ([facility]) Test glucose once daily E11.9 100 [...] rinse after steroid. Test performed by Bibiana FINGERNAIL FORMER CPFT [place] (myocardial infarction) 02/21/2019 Bilateral [...] rinse after steroid. Test performed by Bibiana FINGERNAIL FORMER CPFT GENERAL OSTEOARTHROSIS BMI 32.0-32.9,adult Tobacco use [...] encounter Miscellaneous Notes * Telephone Encounter - Laci BoudreauxVIC chaparro - 06/02/2023 12:20 PM EDT Care Gaps Comprehensive Care Outreach Last Office/Telemedicine Visit: 05/09/2023 (in office), 11/29/2022 (telemedicine) Next Office Visit: 12/07/2023 Hemoglobin AIC Results: Lab Results Component Value Date/Time HEMOGLOBIN A1C - [facility] 7.1 (H) 12/10/2022 01:18 PM HEMOGLOBIN A1C - [facility] 6.7 (H) 09/08/2022 02:38 PM HEMOGLOBIN A1C - [facility] 7.2 (H) 03/26/2022 12:41 PM HEMOGLOBIN A1C - [facility] 6.6 (H) 04/09/2020 01:42 PM HEMOGLOBIN A1C - [facility] 6.4 (H) 10/18/2019 07:47 AM HEMOGLOBIN A1C - [facility] 5.8 (H) 12/27/2018 01:41 PM BP Readings from Last 1 Encounters: 05/31/23 110/62 Reviewed Health Maintenance below: Health Maintenance Topic Date Due DISCUSS TOBACCO CESSATION (REFER TO SMARTSET #0183) Never done *ADVANCE DIRECTIVE NOT ON FILE Never done Pendleton's Esophagus Surveilance 01/19/2022 Influenza Vaccine (FLU shot) (1) 11/12/2022 COVID-19 Vaccine (4 - 2022- season) 2022 Diabetic Eye Exam 06/05/2023 HbA1c 06/10/2023 DXA Scan 07/22/2023 Diabetic Foot Exam 09/09/2023 COLONOSCOPY-EVERY 5 YRS AGES 18-100 09/28/2023 Patient is scheduled for amputation next week. Will reach out at another time Care Gap Outreach Action Taken: Outreach not indicated documented in this encounter Plan of Treatment Upcoming Encounters Date Type Department Care Team (Latest Contact Info) Description 06/07/2023 9:52 AM EDT Hospital Encounter [facility], [facility] [address] [place] [address] Nnamdi King MD [address] [place] [address] 06/07/2023 9:52 AM EDT - 06/07/2023 12:31 PM EDT Surgery OR C, OPERATING ROOM [facility] [address] [place] [address] Nnamdi King MD [address] [place] [address] AMPUTATION LEG THROUGH TIBIA AND FIBULA 06/29/2023 10:30 AM EDT Office Visit Vascular Surgery, [facility] [address] [facility] [place] [address] Nnamdi King MD [address] [place] [address] 10/10/2023 4:00 PM EDT Office Visit Nephrology, [facility] 200 [place] [address] Charla Potter MD [address] [facility] [place] [address] 12/07/2023 9:20 AM EDT Office Visit Family Medicine [address] [place] [address] Courtney Restrepo MD [address] [place] [address] [place] [address] Scheduled Procedures Name Priority Associated Diagnoses Date/Ti me AMPUTATION LEG THROUGH TIBIA AND FIBULA 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 (HCC) 06/07/2023 9:52 AM EDT ESOPHAGOGASTRODUODENOSCOPY ( EGD), FLEXIBLE, TRANSORAL, DIAGNOSTIC Recall Pendleton's esophagus Health Maintenance Due Date Last Done Comments DISCUSS TOBACCO CESSATION (REFER TO SMARTSET #9411) 1950 *ADVANCE DIRECTIVE NOT ON FILE 06/28/2020 [...] D LEVEL ONCE IN A LIFETIME-USE SMARTSET# 38343 Completed 10/16/2021, 12/27/2018 Alpha-1 Antitrypsin Discontinued GARDASIL-HPV [...] this encounter Medical Devices Implanted Type Area Payment Processor Device Identifier Shelf Expiration Date Model / Serial / Lot Stent Graft Icast [id number] - [id number] - [id number] Implanted:Qty : 1 on 04/14/2022 by Nnamdi King MD at [place] [facility] N/A: Mesenteric Artery GETINGE : MAQUET [id number] 02/21/2023 [id number] / [id number] / [id number] Description:implanted in SMA Stent [place] 3.0x15 Rx - [id number] Implanted:Qty : 1 on 11/12/2022 by Patrice Jose MD at [facility] [employer] : VASCULAR [id number] 11/28/2023 [id number] / / [id number] 2 documented as of this encounter Advance [...] patient or by statute hierarchy) Care Teams Disability Rater Relationship Specialty Start Date End Date Courtney Restrepo MD [address] [place] [address] [place] [address] PCP - General Family Medicine 10/17/19 documented as of this encounter
--- OUTSIDE RECORDS SUMMARY | 2023-08-31 06:35 | External Medical Summary | Summary of Care ---
Author Name Unknown Organization [facility] Address [address] [place] [address] Phone [phone] Care Team Providers Care Supervisor Sewing Department Name Role Phone Courtney Restrepo MD Primary Care Prov ider Reason for Visit * Reason Onset Date Comments Call Back 06/01/2023 Encounter Details Date Type Department Care Team (Late st Contact Info) Description 06/01/2023 Telephone Vascular Surg [facility] [address] [place] [address] Services, [facility] [address] [place] [address] Call Back Allergies Active Allergy Reactions Criticality [...] edema Nitroglycerin Hypotension 12/20/2018 Penicillins Nausea/vomiting 05/17/2007 [place] Hives 10/02/2018 Propoxyphene Edema face/lips/tongue,Hiv es 06/26/2009 [...] (3) MG/3ML Inhalation Solution (Duoneb)Indications: COPD exacerbation ([facility]) Inhale 3 mL via nebulizer every 4 hours as needed for Shortness of Breath. 100 mL 3 11/29/2022 Active OneTouch Delica Lancets 30GIndications:Type 2 diabetes mellitus with hemoglobin A1c goal of less than 8.0% ([facility]) Use to test glucose daily. E11.9 100 Each 5 11/29/2022 Active OneTouch Verio w/Device KitIndications:Type 2 diabetes mellitus with hemoglobin A1c goal of less than 8.0% ([facility]) Use to test glucose [...] constipation 225 g 2 05/23/2023 Active Gabapentin 300 MG Oral Capsule (Neurontin) Take 1 Capsule by mouth at bedtime. 30 Capsule 2 05/31/2023 Active documented as of this encounter (statuses [...] rinse after steroid. Test performed by Bibiana SECURITIES TRADER CPFT [place] (myocardial infarction) 02/21/2019 Bilateral [...] osteoporosis 07/03/2018 Reactive depression 11/17/2017 Atherosclerosis of [place] co ronary artery of [place] heart without angina pectoris 07/22/2015 Overview: Single [...] rinse after steroid. Test performed by Bibiana SECURITIES TRADER CPFT GENERAL OSTEOARTHROSIS BMI 32.0-32.9,adult Tobacco use [...] ISCHEMIC HRT DIS NOS Coronary atherosclerosis of [place] coronary artery 11/24/2016 Tobacco abuse 11/17/2017 documented [...] encounter Miscellaneous Notes * Telephone Encounter - Carina Mcallister CRNP [...] Team (Late st Contact Info) Description 06/07/2023 9:40 AM EDT Office Visit [address] [address] Courtney Restrepo MD [address] [place] [address] [place] [address] 06/08/2023 11:00 AM EDT Office Visit Cardiology, [facility] [address] [place] [address] Frantz Herrera MD [address] [place] [address] 06/29/2023 10:30 AM EDT Office Visit Vascular Surgery, [facility] 132 [place] [address] Nnamdi King MD [address] [place] [address] 10/10/2023 4:00 PM EDT Office Visit Nephrology, [facility] 200 [place] [address] Charla Potter MD [address] [place] [address] Scheduled Procedures Name Priority Associated Diagnoses Date/Ti me ESOPHAGOGASTRODUODENOSCOPY ( EGD), FLEXIBLE, TRANSORAL, DIAGNOSTIC Recall Pendleton's esophagus Health Maintenance Due Date Last Done Comments DISCUSS TOBACCO CESSATION (REFER TO SMARTSET #3295) 1950 *ADVANCE DIRECTIVE NOT ON FILE 06/28/2020 [...] 02/17/2023, Additional history exists Mammogram 05/19/2024 05/20/2023, 0108/2021, 05/12/2017, Additional history exists DTaP,Tdap,and Td Vaccines (3 - Td or Tdap) 07/15/2031 07/14/2021 (Declined), 07/27/2010 Pneumococcal Vaccine: 65+ Years Completed 10/27/2015, 08/08/2014, 05/30/2008 VITAMIN D LEVEL ONCE IN A LIFETIME-USE SMARTSET# 73760 Completed 10/16/2021, 12/27/2018 Alpha-1 Antitrypsin Discontinued GARDASIL-HPV [...] this encounter Medical Devices Implanted Type Area Electric Mule Operator Device Identifier Shelf Expiration Date Model / Serial / Lot Stent Graft Icast [id number] - [id number] - [id number] Implanted:Qty : 1 on 04/14/2022 by Nnamdi King MD at [place] [facility] [place] N/A: Mesenteric Artery GETINGE : VITOR [id number] 02/21/2023 [id number] / [id number] / [id number] Description:implanted in SMA Stent [place] 3.0x15 Rx - [id number] Implanted:Qty : 1 on 11/12/2022 by Patrice Jose MD at [facility] [place] [employer] : VASCULAR [id number] 11/28/2023 [id number] / / [id number] 2 documented as of this encounter Advance [...] patient or by statute hierarchy) Care Teams Supervisor Sewing Department Relationship Specialty Start Date End Date Courtney Restrepo MD [address] [place] [address] [place] [address] PCP - General Family Medicine 10/17/19 documented as of this encounter
--- OUTSIDE RECORDS SUMMARY | 2023-08-31 06:36 | External Medical Summary | Summary of Care ---
Author Name Unknown Organization [facility] Address [address] [place] [address] Phone [phone] Care Team Providers Care Wildlife Manager Name Role Phone Courtney Restrepo MD Primary Care Prov ider Reason for Visit * Reason Onset Date Comments Call Back 06/01/2023 Encounter Details Date Type Department Care Team (Late st Contact Info) Description 06/01/2023 Telephone Vascular Surg [facility] [address] [place] [address] Services, [facility] [address] [place] [address] Call Back Allergies Active Allergy Reactions Criticality [...] edema Nitroglycerin Hypotension 12/20/2018 Penicillins Nausea/vomiting 05/17/2007 [place] Hives 10/02/2018 Propoxyphene Edema face/lips/tongue,Hiv es 06/26/2009 documented as of this encounter (statuses as of 06/01/2023) Medications Medication Sig Dispensed Refills Start Date [...] (3) MG/3ML Inhalation Solution (Duoneb)Indications: COPD exacerbation ([facility]) Inhale 3 mL via nebulizer every 4 hours as needed for Shortness of Breath. 100 mL 3 11/29/2022 Active OneTouch Delica Lancets 30GIndications:Type 2 diabetes mellitus with hemoglobin A1c goal of less than 8.0% ([facility]) Use to test glucose daily. E11.9 100 Each 5 11/29/2022 Active OneTouch Verio w/Device KitIndications:Type 2 diabetes mellitus with hemoglobin A1c goal of less than 8.0% ([facility]) Use to test glucose daily. E11.9 1 Kit 0 11/29/2022 Active Trelegy Ellipta 100-62.5-25 MCG/ACT Aerosol Powder Breath ActivatedIndications :COPD, group C, by GOLD 2017 classification ([facility]) Inhale 1 puff as directed once a day 1 inhalation daily. Rinse mouth after every use. 60 Blister Dosing Unit 5 11/29/2022 Active Sodium Chloride 4 MEQ/ML Oral Solution Take by mouth. 0 Active NovoLOG FlexPen 100 UNIT/ML Subcutaneous Solution Pen-injector (insulin aspart)Indications:T ype 2 diabetes mellitus with hemoglobin A1c goal of less than 8.0% ([facility]) Units as per sliding scale 3 mL 3 02/04/2023 Active Insulin Glargine Solostar 100 UNIT/ML Subcutaneous Solution Pen-injector (Lantus SoloStar)Indications :Type 2 diabetes mellitus with hemoglobin A1c goal of less than 8.0% ([facility]) Inject 10 Units under the skin every [...] goal of less than 8.0% ([facility]) Test glucose once daily E11.9 100 Strip [...] as of this encounter (statuses as of 06/01/2023) Active Problems Problem Noted Date Diagnosed Date [...] rinse after steroid. Test performed by Bibiana FOOD SERVICE ORDER CLERK CPFT [place] (myocardial infarction) 02/21/2019 Bilateral [...] osteoporosis 07/03/2018 Reactive depression 11/17/2017 Atherosclerosis of [place] co ronary artery of [place] heart without angina pectoris 07/22/2015 Overview: [...] rinse after steroid. Test performed by Bibiana FOOD SERVICE ORDER CLERK CPFT GENERAL OSTEOARTHROSIS BMI 32.0-32.9,adult Tobacco use disorder Hyperlipidemia with target LDL less than 70 Overview: ICD-10 update of inactive term RSD upper limb Overview: left arm Generalized anxiety disorder documented as of this encounter (statuses as of 06/01/2023) Resolved Problems Problem Noted Date Diagnosed Date [...] ISCHEMIC HRT DIS NOS Coronary atherosclerosis of [place] coronary artery 11/24/2016 Tobacco abuse 11/17/2017 documented as of this encounter (statuses as of 06/01/2023) Immunizations Name Administration Dates Next Due COVID-19 [...] Description 06/07/2023 9:40 AM EDT Office Visit [address] [phone] Courtney Restrepo MD [address] [place] [address] [place] [address] 06/08/2023 11:00 AM EDT Office Visit Cardiology, [facility] 132 [place] [address] Frantz Herrera MD [address] [place] [address] 06/29/2023 10:30 AM EDT Office Visit Vascular Surgery, [facility] [address] [place] [address] Nnamdi King MD [address] [place] [address] 10/10/2023 4:00 PM EDT Office Visit Nephrology, [facility] 200 [facility] [place] [address] Charla Potter MD [address] [place] [address] Scheduled Procedures Name Priority Associated Diagnoses Date/Ti me ESOPHAGOGASTRODUODENOSCOPY ( EGD), FLEXIBLE, TRANSORAL, DIAGNOSTIC Recall Pendleton's esophagus Health Maintenance Due Date Last Done Comments DISCUSS TOBACCO CESSATION (REFER TO SMARTSET #3296) 1950 *ADVANCE DIRECTIVE NOT ON FILE 06/28/2020 [...] D LEVEL ONCE IN A LIFETIME-USE SMARTSET# [id number] Completed 10/16/2021, 12/27/2018 Alpha-1 Antitrypsin Discontinued GARDASIL-HPV [...] encounter Medical Devices Implanted Type Area Inspector Plumbing Device Identifier Shelf Expiration Date Model / Serial / Lot Stent Graft Icast [id number] - [id number] - [id number] Implanted:Qty : 1 on 04/14/2022 by Nnamdi King [place] [facility] [place]: Mesenteric Artery GETINGE : VITOR [id number] 02/21/2023 [id number] / [id number] / [id number] Description:implanted in SMA Stent [place] 3.0x15 Rx - [id number] Implanted:Qty : 1 on 11/12/2022 by Patrice Jose MD at [facility] [facility] [place] [employer] : VASCULAR [id number] 11/28/2023 [id number] / / [id number] 2 documented as of this encounter Advance [...] patient or by statute hierarchy) Care Teams Wildlife Manager Relationship Specialty Start Date End Date Courtney Restrepo MD [address] [place] [address] [place] [address] PCP - General Family Medicine 10/17/19 documented as of this encounter
--- OUTSIDE RECORDS SUMMARY | 2023-08-31 06:37 | External Medical Summary | Summary of Care ---
Author Name Unknown Organization [facility] Address [address] [place] [address] Phone [phone] Care Team Providers Care Cigar Head Holer Name Role Phone Courtney Restrepo MD Primary Care Prov ider Reason for Visit * Reason Onset Date Comments Advice 05/30/2023 Encounter Details Date Type Department Care Team (Late st Contact Info) Description 05/30/[address] [address] Courtney Restrepo MD [address] [place] [address] [place] [address] Advice Allergies Active Allergy Reactions Criticality [...] edema Nitroglycerin Hypotension 12/20/2018 Penicillins Nausea/vomiting 05/17/2007 [place] Hives 10/02/2018 Propoxyphene Edema face/lips/tongue,Hiv es 06/26/2009 documented as of this encounter (statuses as of 05/31/2023) Medications Medication Sig Dispensed Refills Start Date [...] of Breath. 100 mL 3 11/29/2022 Active Voltaixuch Delica Lancets 30GIndications:Type 2 diabetes mellitus with hemoglobin A1c goal of less than 8.0% (HCC) Use to test glucose daily. E11.9 100 Each 5 11/29/2022 Active Phase EightTouch Verio w/Device KitIndications:Type 2 diabetes mellitus with [...] acute on chronic diastolic congestive heart failure ([facility]) Take 2 Tablets by mouth in the [...] for Pain, Severe. 60 Tablet 0 05/06/2023 4 Active Polyethylene Glycol 3350 17 GM/SCOOP Oral Powder (MiraLax)Indications :Other constipation Dissolve one heaping tablespoon in 8 ounces of water or juice - one dose per day as needed for severe constipation 225 g 2 05/23/2023 Active documented as of this encounter (statuses as of 05/31/2023) Active Problems Problem Noted Date Diagnosed Date [...] rinse after steroid. Test performed by Bibiana RESAW TAILER CPFT [place] (myocardial infarction) 02/21/2019 Bilateral [...] osteoporosis 07/03/2018 Reactive depression 11/17/2017 Atherosclerosis of [place] co ronary artery of [place] heart without angina pectoris 07/22/2015 Overview: Single [...] rinse after steroid. Test performed by Bibiana RESAW TAILER CPFT GENERAL OSTEOARTHROSIS BMI 32.0-32.9,adult Tobacco use disorder Hyperlipidemia with target LDL less than 70 Overview: ICD-10 update of inactive term RSD upper limb Overview: left arm Generalized anxiety disorder documented as of this encounter (statuses as of 05/31/2023) Resolved Problems Problem Noted Date Diagnosed Date [...] ISCHEMIC HRT DIS NOS Coronary atherosclerosis of [place] coronary artery 11/24/2016 Tobacco abuse 11/17/2017 documented as of this encounter (statuses as of 05/31/2023) Immunizations Name Administration Dates Next Due COVID-19 [...] Telephone Encounter - Leeanne Bautista LPN - 05/30/2023 12:23 PM EDT Patient states that her pain meds are not helping left foot pain (hydrocodone) She rates her pain as 10/10 Pain meds not even taking the edge off the pain Scheduled to see Vascular Surgery on 06/08/23 Called office, spoke to Solange, Advised per Christie that patient needs to go to the ER. Pt aware and agreeable, she states that she does not want to go [facility] because they will admit her. I asked why she felt that they would admit her and she said that her left foot is thatbad. She states that she will go to [place]. Patient wanted to speak with Vascular Surgery - transfer pt documented in this encounter Plan of Treatment Upcoming Encounters Date Type Department Care Team (Late st Contact Info) Description 06/06/2023 10:00 AM EDT Office Visit Family Medicine [address] [place] [address] Christie Harrison PA-C [address] [place] [address] [place] [address] 06/08/2023 11:00 AM EDT Office Visit Cardiology, [facility] [address] [facility] [place] [address] Frantz Herrera MD [address] [place] [address] 06/29/2023 10:30 AM EDT Office Visit Vascular Surgery, [facility] 132 [facility] [place] [address] Nnamdi King MD [address] [place] [address] 10/10/2023 4:00 PM EDT Office Visit Nephrology, [facility] [address] [place] [address] Charla Potter MD [address] [place] [address] Scheduled Procedures Name Priority Associated Diagnoses Date/Ti me ESOPHAGOGASTRODUODENOSCOPY ( EGD), FLEXIBLE, TRANSORAL, DIAGNOSTIC Recall Pendleton's esophagus Health Maintenance Due Date Last Done Comments DISCUSS TOBACCO CESSATION (REFER TO SMARTSET #2761) 1950 *ADVANCE DIRECTIVE NOT ON FILE 06/28/2020 [...] D LEVEL ONCE IN A LIFETIME-USE SMARTSET# [id number] Completed 10/16/2021, 12/27/2018 Alpha-1 Antitrypsin Discontinued GARDASIL-HPV [...] this encounter Medical Devices Implanted Type Area Metal Grader Device Identifier Shelf Expiration Date Model / Serial / Lot Stent Graft Icast [id number] - [id number] - [id number] Implanted:Qty : 1 on 04/14/2022 by Nnamdi King MD at [place] [facility] [place] N/A: Mesenteric Artery GETINGE : [id number] 02/21/2023 [id number] / [id number] / [id number] Description:implanted in SMA Stent [place] 3.0x15 Rx - [id number] Implanted:Qty : 1 on 11/12/2022 by Patrice Jose MD at [facility] [place] [employer] : VASCULAR [id number] 11/28/2023 [id number] / / [id number] 2 documented as of this encounter Advance [...] patient or by statute hierarchy) Care Teams Cigar Head Holer Relationship Specialty Start Date End Date Courtney Restrepo MD [address] [place] [address] [place] [id number] PCP - General Family Medicine 10/17/19 documented as of this encounter
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
--- OUTSIDE RECORDS SUMMARY | 2023-08-31 06:37 | External Medical Summary | Summary of Care ---
Author Name Unknown Organization [facility] Address [address] [place] [address] Phone [phone] Care Team Providers Care Compound Mixer Name Role Phone Courtney Restrepo MD Primary Care Prov ider Reason for Visit * Reason Onset Date Comments Call Back 06/01/2023 Encounter Details Date Type Department Care Team (Late st Contact Info) Description 06/01/2023 Telephone Vascular Surg [facility] [address] [place] [address] Services, [facility] [address] [place] [address] Call Back Allergies Active Allergy Reactions Criticality [...] edema Nitroglycerin Hypotension 12/20/2018 Penicillins Nausea/vomiting 05/17/2007 [place] Hives 10/02/2018 Propoxyphene Edema face/lips/tongue,Hiv es 06/26/2009 [...] (3) MG/3ML Inhalation Solution (Duoneb)Indications: COPD exacerbation ([facility]) Inhale 3 mL via nebulizer every 4 [...] than 8.0% ([facility]) Units as per sliding scale 3 mL 3 02/04/2023 Active Insulin Glargine Solostar 100 UNIT/ML Subcutaneous Solution Pen-injector (Lantus SoloStar)Indications :Type 2 diabetes mellitus with hemoglobin A1c goal of less than 8.0% ([facility]) Inject 10 Units under the skin [...] than 8.0% ([facility]) Test glucose once daily E11.9 100 [...] rinse after steroid. Test performed by Bibiana SERVICE SPRINKLER HELPER CPFT Old [place] (myocardial infarction) 02/21/2019 Bilateral [...] osteoporosis 07/03/2018 Reactive depression 11/17/2017 Atherosclerosis of samish co ronary artery of samish heart without angina pectoris 07/22/2015 Overview: Single [...] rinse after steroid. Test performed by Bibiana SERVICE SPRINKLER HELPER CPFT GENERAL OSTEOARTHROSIS BMI 32.0-32.9,adult Tobacco [...] ISCHEMIC HRT DIS NOS Coronary atherosclerosis of samish coronary artery 11/24/2016 Tobacco abuse 11/17/2017 documented [...] Description 06/07/2023 9:40 AM EDT Office Visit Family Medicine [address] [place] [phone] Courtney Restrepo MD [address] [place] [address] [place] [address] 06/08/2023 11:00 AM EDT Office Visit Cardiology, [facility] [address] Frantz Herrera MD [address] [place] [address] 06/29/2023 10:30 AM EDT Office Visit Vascular Surgery, [facility] [address] [place] [address] Nnamdi King MD [address] [facility] [place] [address] 10/10/2023 4:00 PM EDT Office Visit Nephrology, [facility] [address] Charla Potter MD [address] [place] [phone] Scheduled Procedures Name Priority Associated Diagnoses Date/Ti me ESOPHAGOGASTRODUODENOSCOPY ( EGD), FLEXIBLE, TRANSORAL, DIAGNOSTIC Recall Pendleton's esophagus Health Maintenance Due Date Last Done Comments DISCUSS TOBACCO CESSATION (REFER TO SMARTSET #5763) 1950 *ADVANCE DIRECTIVE NOT ON FILE 06/28/2020 [...] D LEVEL ONCE IN A LIFETIME-USE SMARTSET# [id number] Completed 10/16/2021, 12/27/2018 Alpha-1 Antitrypsin Discontinued GARDASIL-HPV [...] this encounter Medical Devices Implanted Type Area Accountant Controller Device Identifier Shelf Expiration Date Model / Serial / Lot Stent Graft Icast [id number] - [id number] - [id number] Implanted:Qty : 1 on 04/14/2022 by Nnamdi King MD at [facility] N/A: Mesenteric Artery GETINGE : MAVESTA [id number] 02/21/2023 [id number] / [id number] / [id number] Description:implanted in SMA Stent [place] 3.0x15 Rx - [id number] Implanted:Qty : 1 on 11/12/2022 by Patrice Jose MD at CARDIAC LABS [facility] MEDTRONIC : VASCULAR [id number] 11/28/2023 [id number] / / [id number] 2 documented as of this encounter Advance [...] patient or by statute hierarchy) Care Teams Compound Mixer Relationship Specialty Start Date End Date Courtney Restrepo MD [address] [place] [address] [place] [address] PCP - General Family Medicine 10/17/19 documented as of this encounter
--- OUTSIDE RECORDS SUMMARY | 2023-08-31 06:38 | External Medical Summary | Summary of Care ---
Author Name Unknown Organization [facility] Address [address] [place] [address] Phone [phone] Care Team Providers Care Rnfa Name Role Phone Courtney Restrepo MD Primary Care Prov ider Reason for Visit * Reason Onset Date Comments Order Request 05/10/2023 Encounter Details Date Type Department Care Team (Late st Contact Info) Description 05/10/2023 Telephone Family Medicine [address] [phone] Magdalene Quigley MD [address] [place] [address] [place] [id number] Order Request Allergies Active Allergy Reactions Criticality Noted [...] edema Nitroglycerin Hypotension 12/20/2018 Penicillins Nausea/vomiting 05/17/2007 Varney Hives 10/02/2018 Propoxyphene Edema face/lips/tongue,Hiv es 06/26/2009 [...] of Breath. 100 mL 3 11/29/2022 Active Mertadouch Delica Lancets 30GIndications:Type 2 diabetes mellitus with hemoglobin A1c goal of less than 8.0% (HCC) Use to test glucose daily. E11.9 100 Each 5 11/29/2022 Active TeleportTouch Verio w/Device KitIndications:Type 2 diabetes mellitus with [...] ([facility]) Inject 10 Units under the skin every [...] on chronic diastolic congestive heart failure ([facility]) Take 2 Tablets by mouth in the [...] Severe. 60 Tablet 0 05/06/2023 4 Active Doxycycline Hyclate 100 MG Oral CapsuleIndications:P ain of toe of left foot,Cellulitis of toe of left foot Take 1 Capsule by mouth in the morning and 1 Capsule before bedtime. Do all this for 7 days. Take for 7 days. 14 Capsule 0 05/06/2023 4 documented as of this encounter (statuses as [...] rinse after steroid. Test performed by [facility] [place] (myocardial infarction) 02/21/2019 Bilateral [...] osteoporosis 07/03/2018 Reactive depression 11/17/2017 Atherosclerosis of [place] co ronary artery of [place] heart without angina pectoris 07/22/2015 Overview: Single [...] rinse after steroid. Test performed by [facility] GENERAL OSTEOARTHROSIS BMI 32.0-32.9,adult Tobacco use [...] ISCHEMIC HRT DIS NOS Coronary atherosclerosis of [place] coronary artery 11/24/2016 Tobacco abuse 11/17/2017 documented [...] Miscellaneous Notes * Addendum Note - Lashonda Serrano CRNP - 05/31/2023 11:39 AM EDTAddended by: LASHONDA SERRANO on: 05/31/2023 11:39 AM Modules accepted: Orders * Telephone Encounter - Magdalene Quigley MD - 05/11/2023 3:29 PM EST Ordered * Addendum Note - Magdalene Quigley MD - 05/11/2023 3:29 PM ESTAddended by: MAGDALENE QUIGLEY on: 05/11/2023 03:29 PM Modules accepted: Orders * Telephone Encounter - Deanne Forte OSA - 05/10/2023 2:35 PM EST Pt is scheduled for her MRI foot but the order needs to be w and wo contrast documented in this encounter Plan of Treatment Upcoming Encounters Date Type Department Care Team (Late st Contact Info) Description 06/06/2023 10:00 AM EDT Office Visit [address] [place] [phone] Christie Harrison PA-C [address] [place] [address] [place] [address] 06/08/2023 11:00 AM EDT Office Visit Cardiology, [facility] [address] [facility] [place] [address] Frantz Herrera MD [address] [place] [address] 06/08/2023 12:30 PM EDT Office Visit Vascular Surgery, [facility] [address] [facility] [place] [address] Kyle Olivares PA-C [address] [place] [address] 06/10/2023 3:30 PM EDT Imaging [facility] [address] [facility] [place] [address] 10/10/2023 4:00 PM EDT Office Visit Nephrology, [address] [place] [address] [facility] [address] Scheduled Procedures Name Priority Associated Diagnoses Date/Ti me ESOPHAGOGASTRODUODENOSCOPY ( EGD), FLEXIBLE, TRANSORAL, DIAGNOSTIC Recall Pendleton's esophagus Health Maintenance Due Date Last Done Comments DISCUSS TOBACCO CESSATION (REFER TO SMARTSET #3299) 1950 *ADVANCE DIRECTIVE NOT ON FILE 06/28/2020 [...] 02/17/2023, Additional history exists Mammogram 05/19/2024 05/20/2023, 01/0 08/2021, 05/12/2017, Additional history exists DTaP,Tdap,and Td Vaccines (3 - Td or Tdap) 07/15/2031 07/14/2021 (Declined), 07/27/2010 Pneumococcal Vaccine: 65+ Years Completed 10/27/2015, 08/08/2014, 05/30/2008 VITAMIN D LEVEL ONCE IN A LIFETIME-USE SMARTSET# [id number] Completed 10/16/2021, 12/27/2018 Alpha-1 Antitrypsin Discontinued GARDASIL-HPV [...] encounter Medical Devices Implanted Type Area Senior Managing Director Device Identifier Shelf Expiration Date Model / Serial / Lot Stent Graft Icast [id number] - [id number] - [id number] Implanted:Qty : 1 on 04/14/2022 by Nnamdi King MD at [place] [facility] N/A: Mesenteric Artery GETINGE : MAQUET [id number] 02/21/2023 [id number] / [id number] / [id number] Description:implanted in SMA Stent Howie 3.0x15 Rx - [id number] Implanted:Qty : 1 on 11/12/2022 by Patrice Jose MD at [facility]ARDIAC [facility] MED[employer]ONIC : VASCULAR [id number] 11/28/2023 [id number] / / [id number] 2 documented as of this encounter Visit Diagnoses Diagnosis Pain of toe of left foot- Primary Pain in limb documented in this encounter Advance Directives Latest [...] patient or by statute hierarchy) Care Teams Rnfa Relationship Specialty Start Date End Date Courtney Restreop MD [address] [place] [address] [place] [address] PCP - General Family Medicine 10/17/19 documented as of this encounter
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
--- OUTSIDE RECORDS SUMMARY | 2023-08-31 06:38 | External Medical Summary | Summary of Care ---
Author Name Unknown Organization [facility] Address [address] [place] [address] Phone [phone] Care Team Providers Care Appraiser Art Name Role Phone Courtney Restrepo MD Primary Care Prov ider Reason for Visit * Reason Onset Date Comments Appointment 05/30/2023 Encounter Details Date Type Department Care Team (Late st Contact Info) Description 05/30/2023 Telephone Vascular Surg [facility] [address] [place] [address] Services, [facility] [address] [place] [address] Appointment Allergies Active Allergy Reactions Criticality Noted Date [...] edema Nitroglycerin Hypotension 12/20/2018 Penicillins Nausea/vomiting 05/17/2007 [place] Hives 10/02/2018 Propoxyphene Edema face/lips/tongue,Hiv es 06/26/2009 documented as of this encounter (statuses as of 05/30/2023) Medications Medication Sig Dispensed Refills Start Date [...] (3) MG/3ML Inhalation Solution (Duoneb)Indications: COPD exacerbation ([facility]) Inhale 3 mL via nebulizer every [...] as of this encounter (statuses as of 05/30/2023) Active Problems Problem Noted Date Diagnosed Date [...] after steroid. Test performed by Bibiana CHIEF MEDICAL PHYSICIST CPFT Old [place] (myocardial infarction) 02/21/2019 Bilateral carotid artery stenosis [...] osteoporosis 07/03/2018 Reactive depression 11/17/2017 Atherosclerosis of [place] co ronary artery of [place] heart without angina pectoris 07/22/2015 Overview: Single [...] after steroid. Test performed by Bibiana CHIEF MEDICAL PHYSICIST CPFT GENERAL OSTEOARTHROSIS BMI 32.0-32.9,adult Tobacco use disorder Hyperlipidemia with target LDL less than 70 Overview: ICD-10 update of inactive term RSD upper limb Overview: left arm Generalized anxiety disorder documented as of this encounter (statuses as of 05/30/2023) Resolved Problems Problem Noted Date Diagnosed Date [...] ISCHEMIC HRT DIS NOS Coronary atherosclerosis of [place] coronary artery 11/24/2016 Tobacco abuse 11/17/2017 documented as of this encounter (statuses as of 05/30/2023) Immunizations Name Administration Dates Next Due COVID-19 [...] Telephone Encounter - Kiko Dennis OSA - 05/30/2023 1:25 PM EDT Patient scheduled for tomorrow with Dr. King * Telephone Encounter - Pippa Dixon PA-C - 05/30/2023 12:47 PM EDT Please offer patient an appointment for tomorrow with Dr. King. Thanks! * Telephone Encounter - Nicky Hayward OSA - 05/30/2023 12:42 PM EDT PT calling in asking if she can be seen sooner than 06/07. PT stated her foot is really bad. Please advise documented in this encounter Plan of Treatment Upcoming Encounters Date Type Department Care Team (Late st Contact Info) Description 05/31/2023 11:00 AM EDT Office Visit Vascular Surg [facility] [place] [address] [place], [place] [phone] Nnamdi King MD [address] [place] [address] 06/06/2023 10:00 AM EDT Office Visit [address] [address] Christie Harrison PA-C [address] [place] [address] [place] [address] 06/08/2023 11:00 AM EDT Office Visit Cardiology, [facility] [address] [place] [address] Frantz Herrera MD [address] [place], [place] [address] 06/08/2023 12:30 PM EDT Office Visit Vascular Surgery, [address] [place] [address] Kyle Olivares PA-C [address] [place] [address] 06/10/2023 4:00 PM EDT Imaging Radiology [facility] 1st [facility] 132 [place] [address] 10/10/2023 4:00 PM EDT Office Visit Nephrology, [facility] 200 [facility] [place] [address] Charla Potter MD [address] [place], [place] [address] [phone] Scheduled Procedures Name Priority Associated Diagnoses Date/Ti [...] D LEVEL ONCE IN A LIFETIME-USE SMARTSET# [id number] Completed 10/16/2021, 12/27/2018 Alpha-1 Antitrypsin Discontinued GARDASIL-HPV [...] this encounter Medical Devices Implanted Type Area Hr Manager Device Identifier Shelf Expiration Date Model / Serial / Lot Stent Graft Icast [id number] - [id number] - [id number] Implanted:Qty : 1 on 04/14/2022 by Nnamdi King MD [place] [facility] [place]A: Mesenteric Artery GETINGE : YOELT [id number] 02/21/2023 [id number] / [id number] / [id number] Description:implanted in SMA Stent Howie 3.0x15 Rx - [id number] Implanted:Qty : 1 on 11/12/2022 by Patrice Jose MD [place] [facility] [facility] [place] [employer] : VASCULAR [id number] 11/28/2023 [id number] / / [id number] 2 documented as of this encounter Advance [...] patient or by statute hierarchy) Care Teams Appraiser Art Relationship Specialty Start Date End Date Courtney Restrepo MD [address] [place] [address] [place] [address] PCP - General Family Medicine 10/17/19 documented as of this encounter
--- OUTSIDE RECORDS SUMMARY | 2023-08-31 06:38 | External Medical Summary | Summary of Care ---
Author Name Unknown Organization [facility] Address [address] [place] [address] Phone [phone] Care Team Providers Care Wood Heel Back Liner Name Role Phone Courtney Restrepo MD Primary Care Prov ider Reason for Visit * Reason Onset Date Comments Appointment 05/30/2023 Encounter Details Date Type Department Care Team (Late st Contact Info) Description 05/30/2023 Telephone Vascular Surg [facility] [address] [place] [address] Services, [facility] [address] [place] [address] Appointment Allergies Active Allergy Reactions Criticality Noted [...] edema Nitroglycerin Hypotension 12/20/2018 Penicillins Nausea/vomiting 05/17/2007 [place] Hives 10/02/2018 Propoxyphene Edema face/lips/tongue,Hiv es 06/26/2009 [...] rinse after steroid. Test performed by Bibiana MAGAZINE PUBLISHER CPFT [place] (myocardial infarction) 02/21/2019 Bilateral [...] 07/03/2018 Reactive depression 11/17/2017 Atherosclerosis of [place] co ronary artery of [place] heart without angina pectoris 07/22/2015 Overview: Single [...] rinse after steroid. Test performed by Bibiana MAGAZINE PUBLISHER CPFT GENERAL OSTEOARTHROSIS BMI 32.0-32.9,adult Tobacco use [...] HRT DIS NOS Coronary atherosclerosis of [place] coronary artery 11/24/2016 Tobacco abuse 11/17/2017 documented [...] 11:00 AM EDT Office Visit Vascular Surg [facility] [place] [address] [place], [place] [phone] Nnamdi King MD [address] [place] [address] 06/06/2023 10:00 AM EDT Office Visit [address] [phone] Christie Harrison PA-C [address] [place] [address] [place] [address] 06/08/2023 11:00 AM EDT Office Visit Cardiology, [facility] [address] [place] [address] Frantz Herrera MD [address] [place], [place] [address] 06/08/2023 12:30 PM EDT Office Visit Vascular Surgery, [address] [place] [address] Kyle Olivares PA-C [address] [place] [address] 06/10/2023 4:00 PM EDT Imaging Radiology [facility] 1st [facility] 132 [place] [address] 10/10/2023 4:00 PM EDT Office Visit Nephrology, [facility] 200 [place] [address] Charla Potter MD [address] [place], [place] [address] [phone] Scheduled Procedures Name Priority Associated Diagnoses Date/Ti [...] D LEVEL ONCE IN A LIFETIME-USE SMARTSET# [id number] Completed 10/16/2021, 12/27/2018 Alpha-1 Antitrypsin Discontinued GARDASIL-HPV [...] this encounter Medical Devices Implanted Type Area Precision Grinder Device Identifier Shelf Expiration Date Model / Serial / Lot Stent Graft Icast [id number] - [id number] - [id number] Implanted:Qty : 1 on 04/14/2022 by Nnamdi King MD at [place] [facility] [place] N/A: Mesenteric Artery GETINGE : YOELT [id number] 02/21/2023 [id number] / [id number] / [id number] Description:implanted in SMA Stent How[place] 3.0x15 Rx - [id number] Implanted:Qty : 1 on 11/12/2022 by Patrice Jose MD at [facility] [place] [employer] : VASCULAR [id number] 11/28/2023 [id number] / / [id number] 2 documented as of this encounter Advance [...] patient or by statute hierarchy) Care Teams Wood Heel Back Liner Relationship Specialty Start Date End Date Courtney Restrepo MD [address] [place] [address] [place] [address] PCP - General Family Medicine 10/17/19 documented as of this encounter
--- OUTSIDE RECORDS SUMMARY | 2023-08-31 06:40 | External Medical Summary | Summary of Care ---
Author Name Unknown Organization [facility] Address [address] [place] [address] Phone [phone] Care Team Providers Care Fabric Inspector Name Role Phone Courtney Restrepo MD Primary Care Prov ider Reason for Visit * Reason Onset Date Comments Appointment 05/30/2023 Encounter Details Date Type Department Care Team (Late st Contact Info) Description 05/30/2023 Telephone Vascular Surg [facility] [address] [place] [address] Services, [facility] [address] [place] [address] Appointment Allergies Active Allergy Reactions Criticality Noted [...] edema Nitroglycerin Hypotension 12/20/2018 Penicillins Nausea/vomiting 05/17/2007 [place] Hives 10/02/2018 Propoxyphene Edema face/lips/tongue,Hiv es 06/26/2009 [...] after steroid. Test performed by Bibiana HUMAN RESOURCES EXECUTIVE ASSISTANT CPFT [place] (myocardial infarction) 02/21/2019 Bilateral [...] osteoporosis 07/03/2018 Reactive depression 11/17/2017 Atherosclerosis of [place] co ronary artery of [place] heart without angina pectoris 07/22/2015 Overview: Single [...] after steroid. Test performed by Bibiana HUMAN RESOURCES EXECUTIVE ASSISTANT CPFT GENERAL OSTEOARTHROSIS BMI 32.0-32.9,adult Tobacco [...] ISCHEMIC HRT DIS NOS Coronary atherosclerosis of [place] coronary artery 11/24/2016 Tobacco abuse 11/17/2017 documented [...] 10:00 AM EDT Office Visit Family Medicine [address] [place] [phone] Christie Harrison PA-C [address] [place] [address] [place] [address] 06/08/2023 11:00 AM EDT Office Visit Cardiology, [address] [place] [address] Frantz Herrera MD [address] [place] [address] 06/08/2023 12:30 PM EDT Office Visit Vascular Surgery, [facility] 132 [place] [address] Kyle Olivares PA-C [address] [place] [address] 06/10/2023 4:00 PM EDT Imaging Radiology [facility] 1st [facility] 132 [place] [address] 10/10/2023 4:00 PM EDT Office Visit Nephrology, [facility] 200 [place] [address] Charla Potter MD 400 [place] [address] Scheduled Procedures Name Priority Associated Diagnoses Date/Ti me ESOPHAGOGASTRODUODENOSCOPY ( EGD), FLEXIBLE, TRANSORAL, DIAGNOSTIC Recall Pendleton's esophagus Health Maintenance Due Date Last Done Comments DISCUSS TOBACCO CESSATION (REFER TO SMARTSET #4712) 1950 *ADVANCE DIRECTIVE NOT ON FILE 06/28/2020 [...] D LEVEL ONCE IN A LIFETIME-USE SMARTSET# [id number] Completed 10/16/2021, 12/27/2018 Alpha-1 Antitrypsin Discontinued GARDASIL-HPV [...] this encounter Medical Devices Implanted Type Area Machinist 2Nd Shift Device Identifier Shelf Expiration Date Model / Serial / Lot Stent Graft Icast [id number] - [id number] - [id number] Implanted:Qty : 1 on 04/14/2022 by Nnamdi King MD [place] [facility] [place]A: Mesenteric Artery GETINGE : MAQUET [id number] 02/21/2023 [id number] / [id number] / [id number] Description:implanted in SMA Stent [place] 3.0x15 Rx - [id number] Implanted:Qty : 1 on 11/12/2022 by Patrice Jose MD at [facility] [place] [facility] [place] [employer] : VASCULAR [id number] 11/28/2023 [id number] / / [id number] 2 documented as of this encounter Advance [...] patient or by statute hierarchy) Care Teams Fabric Inspector Relationship Specialty Start Date End Date Courtney Restrepo MD [address] [place] [address] [place] [phone] PCP - General Family Medicine 10/17/19 documented as of this encounter
--- OUTSIDE RECORDS SUMMARY | 2023-08-31 06:40 | External Medical Summary | Summary of Care ---
Author Name Unknown Organization [facility] Address [address] [place] [address] Phone [phone] Care Team Providers Care Shot Polisher Name Role Phone Courtney Penaloza MD Primary Care Prov ider Reason for Visit * Reason Onset Date Comments Medication Refill 05/20/2023 Encounter Details Date Type Department Care Team (Late st Contact Info) Description 05/20/[address] [address] Courtney Penaloza MD [address] [place], [place] [address] [address] Other constipation Allergies Active Allergy Reactions Criticality Noted Date [...] edema Nitroglycerin Hypotension 12/20/2018 Penicillins Nausea/vomiting 05/17/2007 [place] Hives 10/02/2018 Propoxyphene Edema face/lips/tongue,Hiv es 06/26/2009 documented as of this encounter (statuses as of 05/23/2023) Medications Medication Sig Dispensed Refills Start Date [...] of Breath. 100 mL 3 11/29/2022 Active Diary.[employer] Delica Lancets 30GIndications:Type 2 diabetes mellitus with hemoglobin A1c goal of less than 8.0% (HCC) Use to test glucose daily. E11.9 100 Each 5 11/29/2022 Active Dish.fmuch Verio w/Device KitIndications:Type 2 diabetes mellitus with [...] acute on chronic diastolic congestive heart failure ([facility]) Take 2 Tablets by mouth [...] as of this encounter (statuses as of 05/23/2023) Active Problems Problem Noted Date Diagnosed Date [...] rinse after steroid. Test performed by Bibiana FIBERGLASS TECHNICIAN CPFT Old [place] (myocardial infarction) 02/21/2019 Bilateral [...] osteoporosis 07/03/2018 Reactive depression 11/17/2017 Atherosclerosis of [place] co ronary artery of [place] heart without angina pectoris 07/22/2015 Overview: Single [...] rinse after steroid. Test performed by Bibiana FIBERGLASS TECHNICIAN CPFT GENERAL OSTEOARTHROSIS BMI 32.0-32.9,adult Tobacco use disorder Hyperlipidemia with target LDL less than 70 Overview: ICD-10 update of inactive term RSD upper limb Overview: left arm Generalized anxiety disorder documented as of this encounter (statuses as of 05/23/2023) Resolved Problems Problem Noted Date Diagnosed Date [...] ISCHEMIC HRT DIS NOS Coronary atherosclerosis of [place] coronary artery 11/24/2016 Tobacco abuse 11/17/2017 documented as of this encounter (statuses as of 05/23/2023) Immunizations Name Administration Dates Next Due COVID-19 [...] Telephone Encounter - Courtney Penaloza MD - 05/23/2023 9:15 AM EDT Signed Prescriptions: Disp Refills Polyethylene Glycol 3350 17 GM/SCOOP Oral *225 g 2 Sig: Dissolve one heaping tablespoon in 8 ounces of water or juice - one dose per day as needed for severe constipation Authorizing Provider: COURTNEY PENALOZA * Telephone Encounter - Dee Martinez LPN - 05/20/2023 11:25 AM EST Patient calling in asking for a refill on Miralax as she is having some issues with constipation. Miralax D/c on chart 09/16/2021. Please advise if prescription is appropriate. Pended prescription for approval. documented in this encounter Plan of Treatment Upcoming Encounters Date Type Department Care Team (Late st Contact Info) Description 05/23/2023 10:00 AM EDT Imaging Vascular Lab, [facility] [address] [place] [address] Arrived 05/23/2023 11:00 AM EDT Imaging Vascular Lab, [facility] [address] [place] [address] Arrived 05/24/2023 11:00 AM EDT Office Visit Family Medicine [address] [phone] Courtney Penaloza MD [address] [place] [address] [place] [address] 06/08/2023 11:00 AM EDT Office Visit Cardiology, [address] [place] [address] Frantz Herrera MD [address] [place], [place] [address] 06/08/2023 12:30 PM EDT Office Visit Vascular Surgery, [address] [place] [address] Kyle Olivares PA-C [address] [place] [address] 06/10/2023 4:00 PM EDT Imaging Radiology [facility] 1st [facility] 132 [facility] [place] [address] 10/10/2023 4:00 PM EDT Office Visit Nephrology, [address] [place] [address] Charla Potter MD [address] [place] [address] [place] [address] Scheduled Procedures Name Priority Associated Diagnoses Date/Ti me ESOPHAGOGASTRODUODENOSCOPY ( EGD), FLEXIBLE, TRANSORAL, DIAGNOSTIC Recall Pendleton's esophagus Health Maintenance Due Date Last Done Comments DISCUSS TOBACCO CESSATION (REFER TO SMARTSET #6993) 1950 *ADVANCE DIRECTIVE NOT ON FILE 06/28/2020 [...] D LEVEL ONCE IN A LIFETIME-USE SMARTSET# [id number] Completed 10/16/2021, 12/27/2018 Alpha-1 Antitrypsin Discontinued GARDASIL-HPV [...] encounter Medical Devices Implanted Type Area Machine Maintenance Mechanic Device Identifier Shelf Expiration Date Model / Serial / Lot Stent Graft Icast [id number] - [id number] - [id number] Implanted:Qty : 1 on 04/14/2022 by Nnamdi King MD at OR [facility] [place] N/A: Mesenteric Artery GETINGE : [id number] 02/21/2023 [id number] / [id number] / [id number] Description:implanted in SMA Stent [place] 3.0x15 Rx - [id number] Implanted:Qty : 1 on 11/12/2022 by Patrice Jose MD at [facility]ARDIAC LABS [facility] [place] [employer] : VASCULAR [id number] 11/28/2023 [id number] / / [id number] 2 documented as of this encounter Visit Diagnoses Diagnosis Other constipation documented in this encounter Advance Directives Latest [...] patient or by statute hierarchy) Care Teams Shot Polisher Relationship Specialty Start Date End Date Courtney Penaloza MD [address] [place] [address] [place] [address] PCP - General Family Medicine 10/17/19 documented as of this encounter
--- OUTSIDE RECORDS SUMMARY | 2023-08-31 06:40 | External Medical Summary | Summary of Care ---
Author Name Unknown Organization [facility] Address [address] [place] [address] Phone [phone] Care Team Providers Care Senior Cytotechnologist Name Role Phone Courtney Restrepo MD Primary Care Prov ider Reason for Visit * Reason Onset Date Comments Test Results Imaging Study 05/23/2023 Encounter Details Date Type Department Care Team (Late st Contact Info) Description 05/23/2023 Telephone Family [address] [phone] Eben Obregon [address] [place] [address] Test Results Imaging Study Allergies Active Allergy Reactions Criticality Noted Date [...] edema Nitroglycerin Hypotension 12/20/2018 Penicillins Nausea/vomiting 05/17/2007 [place] Hives 10/02/2018 Propoxyphene Edema face/lips/tongue,Hiv es 06/26/2009 [...] of Breath. 100 mL 3 11/29/2022 Active [employer] Delica Lancets 30GIndications:Type 2 diabetes mellitus with hemoglobin A1c goal of less than 8.0% (HCC) Use to test glucose daily. E11.9 100 Each 5 11/29/2022 Active LoopbackTouch Verio w/Device KitIndications:Type 2 diabetes mellitus with [...] acute on chronic diastolic congestive heart failure ([facility]) Take 2 Tablets by mouth in the [...] rinse after steroid. Test performed by Bibiana AEROSPACE MECHANIC CPFT [place] (myocardial infarction) 02/21/2019 Bilateral [...] osteoporosis 07/03/2018 Reactive depression 11/17/2017 Atherosclerosis of [place] co ronary artery of [place] heart without angina pectoris 07/22/2015 Overview: Single [...] rinse after steroid. Test performed by Bibiana AEROSPACE MECHANIC CPFT GENERAL OSTEOARTHROSIS BMI 32.0-32.9,adult Tobacco use [...] ISCHEMIC HRT DIS NOS Coronary atherosclerosis of [place] coronary artery 11/24/2016 Tobacco abuse 11/17/2017 documented [...] encounter Miscellaneous Notes * Telephone Encounter - Eben Obregon CRNP - 05/23/2023 6:06 PM EDT Mammogram reviewed and there is dense breast tissue was no evidence of suspicious masses or other abnormal findings. No evidence of malignancy. This is reassuring, the lump she feels is likely scar tissue. documented in this encounter Plan of Treatment Upcoming Encounters Date Type Department Care Team (Late st Contact Info) Description 05/24/2023 11:00 AM EDT Office Visit Family Medicine [address] [place] [phone] Courtney Restrepo MD [address] [place] [address] [place] [address] 06/08/2023 11:00 AM EDT Office Visit Cardiology, [facility] 132 [facility] [place] [address] Frantz Herrera MD 100 [facility] [place] [address] 06/08/2023 12:30 PM EDT Office Visit Vascular Surgery, [facility] 132 [facility] [place] [address] Kyle Olivares PA-C [address] [facility] [address] 06/10/2023 4:00 PM EDT Imaging Radiology [facility] 1st Floor, [place] 132 [facility] [place] [address] 10/10/2023 4:00 PM EDT Office Visit Nephrology, [facility] 200 [facility], [place] [address] Charla Potter MD 400 [facility] [place], [place] [phone] Scheduled Procedures Name Priority Associated Diagnoses Date/Ti me ESOPHAGOGASTRODUODENOSCOPY ( EGD), FLEXIBLE, TRANSORAL, DIAGNOSTIC Recall Pendleton's esophagus Health Maintenance Due Date Last Done Comments DISCUSS TOBACCO CESSATION (REFER TO SMARTSET #4763) 1950 *ADVANCE DIRECTIVE NOT ON FILE 06/28/2020 [...] D LEVEL ONCE IN A LIFETIME-USE SMARTSET# [id number] Completed 10/16/2021, 12/27/2018 Alpha-1 Antitrypsin Discontinued GARDASIL-HPV [...] this encounter Medical Devices Implanted Type Area Coke Crusher Operator Device Identifier Shelf Expiration Date Model / Serial / Lot Stent Graft Icast [id number] - [id number] - [id number] Implanted:Qty : 1 on 04/14/2022 by Nnamdi King MD at [place] [facility] [place] N/A: Mesenteric Artery GETINGE : VITOR [id number] 02/21/2023 [id number] / [id number] / [id number] Description:implanted in SMA Stent Circle 3.0x15 Rx - [id number] Implanted:Qty : 1 on 11/12/2022 by Patrice Jose MD at [facility]ARDI[facility]S [facility] [place] [employer] : VASCULAR [id number] 11/28/2023 [id number] / / [id number] 2 documented as of this encounter Advance [...] or by statute hierarchy) Care Teams Senior Cytotechnologist Relationship Specialty Start Date End Date Courtney Restrepo MD [address] [place] [address] [place] [phone] PCP - General Family Medicine 10/17/19 documented as of this encounter
--- OUTSIDE RECORDS SUMMARY | 2023-08-31 06:40 | External Medical Summary | Summary of Care ---
Author Name Unknown Organization [facility] Address [address] [place] [address] Phone [phone] Care Team Providers Care Foundry Engineer Name Role Phone Courtney Restrepo MD Primary Care Prov ider Reason for Visit * Reason Onset Date Comments Test Results Imaging Study 05/23/2023 Encounter Details Date Type Department Care Team (Late st Contact Info) Description 05/23/2023 Telephone Family [address] [phone] Eben Obregon [address] [place] [address] Test Results Imaging Study Allergies Active [...] edema Nitroglycerin Hypotension 12/20/2018 Penicillins Nausea/vomiting 05/17/2007 [place] Hives 10/02/2018 Propoxyphene Edema face/lips/tongue,Hiv es 06/26/2009 documented as of this encounter (statuses as of 05/24/2023) Medications Medication Sig Dispensed Refills Start Date [...] of Breath. 100 mL 3 11/29/2022 Active Stylehiveuch Delica Lancets 30GIndications:Type 2 diabetes mellitus with hemoglobin A1c goal of less than 8.0% (HCC) Use to test glucose daily. E11.9 100 Each 5 11/29/2022 Active CotyTouch Verio w/Device KitIndications:Type 2 diabetes mellitus with hemoglobin A1c goal of less than 8.0% (HCC) Use to test glucose daily. E11.9 1 Kit 0 11/29/2022 Active Trelegy Ellipta 100-62.5-25 MCG/ACT Aerosol Powder Breath ActivatedIndications :COPD, group C, by GOLD 2017 classification ([facility]) Inhale 1 puff as directed once a day 1 inhalation daily. Rinse mouth after every use. 60 Blister Dosing Unit 5 11/29/2022 Active Sodium Chloride 4 MEQ/ML Oral Solution Take by mouth. 0 Active NovoLOG FlexPen 100 UNIT/ML Subcutaneous Solution Pen-injector (insulin aspart)Indications:T ype 2 diabetes mellitus with hemoglobin A1c goal of less than 8.0% ([facility]) Units as per sliding scale 3 mL 3 02/04/2023 Active Insulin Glargine Solostar 100 UNIT/ML Subcutaneous Solution Pen-injector (Lantus SoloStar)Indications :Type 2 diabetes mellitus with hemoglobin A1c goal of less than 8.0% ([facility]) Inject 10 Units under the skin [...] acute on chronic diastolic congestive heart failure ([facility]) Take 2 Tablets by mouth in the morning. 180 Tablet 3 02/07/2023 Active Align Extra Strength Oral Capsule Take 1 Capsule by mouth every evening. 0 Active OneTouch Verio In Vitro Strip (Glucose Blood)Indications:Ty pe 2 diabetes mellitus with hemoglobin A1c goal of less than 8.0% ([facility]) Test glucose once daily E11.9 [...] as of this encounter (statuses as of 05/24/2023) Active Problems Problem Noted Date Diagnosed Date [...] rinse after steroid. Test performed by Bibiana PROFESSIONAL NURSE CPFT Old [place] (myocardial infarction) 02/21/2019 Bilateral [...] osteoporosis 07/03/2018 Reactive depression 11/17/2017 Atherosclerosis of [place] ronary artery of [place] heart without angina pectoris 07/22/2015 Overview: Single [...] rinse after steroid. Test performed by Bibiana PROFESSIONAL NURSE CPFT GENERAL OSTEOARTHROSIS BMI 32.0-32.9,adult Tobacco use disorder Hyperlipidemia with target LDL less than 70 Overview: ICD-10 update of inactive term RSD upper limb Overview: left arm Generalized anxiety disorder documented as of this encounter (statuses as of 05/24/2023) Resolved Problems Problem Noted Date Diagnosed Date [...] ISCHEMIC HRT DIS NOS Coronary atherosclerosis of [place] coronary artery 11/24/2016 Tobacco abuse 11/17/2017 documented as of this encounter (statuses as of 05/24/2023) Immunizations Name Administration Dates Next Due COVID-19 [...] Telephone Encounter - Umu Hitchcock LPN - 05/24/2023 10:37 AM EDT Pt's cell phone mail box is full. Unable to leave a message. Home number has smart rgaini so it will not accept my call. Letter mailed to pt. * Telephone Encounter - Eben Obregon CRNP [...] Description 06/06/2023 10:00 AM EDT Office Visit [address] [phone] Christie Harrison PA-C [address] [place] [address] [place] [address] 06/08/2023 11:00 AM EDT Office Visit Cardiology, [facility] [address] [place] [address] Frantz Herrera MD [address] [place] [address] 06/08/2023 12:30 PM EDT Office Visit Vascular Surgery, [facility] [address] [place] [address] Kyle Olivares PA-C [address] [place] [address] 06/10/2023 4:00 PM EDT Imaging Radiology [facility] 1st Floor, [place] [address] [place] [address] 10/10/2023 4:00 PM EDT Office Visit Nephrology, [facility] [address] [place] [address] Charla Potter MD [address] [place] [id number] Scheduled Procedures Name Priority Associated Diagnoses [...] D LEVEL ONCE IN A LIFETIME-USE SMARTSET# [id number] Completed 10/16/2021, 12/27/2018 Alpha-1 Antitrypsin Discontinued GARDASIL-HPV [...] this encounter Medical Devices Implanted Type Area Quarrying Specialist Device Identifier Shelf Expiration Date Model / Serial / Lot Stent Graft Icast [id number] - [id number] - [id number] Implanted:Qty : 1 on 04/14/2022 by Nnamdi King MD [place] [facility] [place]: Mesenteric Artery GETINGE : YOELT [id number] 02/21/2023 [id number] / [id number] / [id number] Description:implanted in SMA Stent [place] 3.0x15 Rx - [id number] Implanted:Qty : 1 on 11/12/2022 by Patrice Jose MD at [facility] [facility] [place] [employer] : VASCULAR [id number] 11/28/2023 [id number] / / [id number] 2 documented as of this encounter Advance [...] patient or by statute hierarchy) Care Teams Foundry Engineer Relationship Specialty Start Date End Date Courtney Restrepo MD [address] [place] [address] [place] [address] PCP - General Family Medicine 10/17/19 documented as of this encounter
--- OUTSIDE RECORDS SUMMARY | 2023-08-31 06:41 | External Medical Summary | Summary of Care ---
Author Name Unknown Organization [facility] Address [address] [place] [address] Phone [phone] Care Team Providers Care Assurance Senior Manager Insurance Name Role Phone Courtney Restrepo MD Primary Care Prov ider Reason for Referral * Precert (Within 10 days (routine)) - Pending Review Specialty Diagnoses / Procedures Referred By Rosalia chandra Referred To Contact Radiology Diagnoses Pain of toe of left foot Procedures MRI FOOT LEFT W WO CONTRAST Magdalene Quigley MD [address] [place] [address] [place] [address] Referral ID Status Reason Start Date Expiration Date V isits Requested Visits Authorized [id number] Pending Review 05/11/2023 999 999 Reason for Visit * Reason Onset Date Comments Order Request 05/10/2023 Encounter Details Date Type Department Care Team (Late st Contact Info) Description 05/10/2023 [facility] [address] [place] [address] [place] [address] Magdalene Quigley MD [address] [place] [address] [place] [address] Order Request Allergies Active Allergy Reactions Criticality [...] edema Nitroglycerin Hypotension 12/20/2018 Penicillins Nausea/vomiting 05/17/2007 [place] Hives 10/02/2018 Propoxyphene Edema face/lips/tongue,Hiv es 06/26/2009 documented as of this encounter (statuses as of 05/11/2023) Medications Medication Sig Dispensed Refills Start Date [...] :COPD, group C, by GOLD 2017 classification ([facility]) Inhale 1 puff as directed once a [...] at bedtime. 120 Tablet 0 04/29/2023 Active Doxycycline Hyclate 100 MG Oral CapsuleIndications:P ain of toe of left foot,Cellulitis of toe of left foot Take 1 Capsule by mouth in the morning and 1 Capsule before bedtime. Do all this for 7 days. Take for 7 days. 14 Capsule 0 05/06/2023 Active HYDROcodone-Acetamin ophen 5-325 MG Oral TabletIndications:Ch ronic midline thoracic back pain Take 1 Tablet by mouth 2 times a day as needed for Pain, Severe. 60 Tablet 0 05/06/2023 4 Active documented as of this encounter (statuses as of 05/11/2023) Active Problems Problem Noted Date Diagnosed Date Other disorders of phosphorus metabolism 023 Pathological fracture of sac ral vertebra due to osteoporosis 01/16/2023 Shock 01/08/2023 PRAKASH (acute kidney injury) 01/08/2023 Lactic acidosis 01/08/2023 Transaminitis 01/08/2023 Encephalopathy [...] rinse after steroid. Test performed by Bibiana HAMMER DRIVER CPFT Old [place] (myocardial infarction) 02/21/2019 Bilateral [...] 07/03/2018 Reactive depression 11/17/2017 Atherosclerosis of [place] co ronary artery of [place] heart without angina pectoris 07/22/2015 Overview: Single [...] rinse after steroid. Test performed by Bibiana HAMMER DRIVER CPFT GENERAL OSTEOARTHROSIS BMI 32.0-32.9,adult Tobacco use disorder Hyperlipidemia with target LDL less than 70 Overview: ICD-10 update of inactive term RSD upper limb Overview: left arm Generalized anxiety disorder documented as of this encounter (statuses as of 05/11/2023) Resolved Problems Problem Noted Date Diagnosed Date Resolved Date Systolic congestive heart failure 11/29/2022 12/10/2022 Pneumonia [...] HRT DIS NOS Coronary atherosclerosis of [place] coronary artery 11/24/2016 Tobacco abuse 11/17/2017 documented as of this encounter (statuses as of 05/11/2023) Immunizations Name Administration Dates Next Due COVID-19 [...] encounter Miscellaneous Notes * Telephone Encounter - Magdalene Quigley MD [...] Team (Late st Contact Info) Description 05/20/2023 2:30 PM EST Imaging Radiology [address] [place] [address] 05/20/2023 3:00 PM EST Imaging Radiology [address] [place] [address] 05/24/2023 11:00 AM EDT Office Visit Family Medicine [address] [place] [address] Courtney Restrepo MD [address] [place] [address] [place] [address] 06/08/2023 11:00 AM EDT Office Visit Cardiology, [address] [place] [address] Frantz Herrera MD [address] [place], [place] [id number] 06/10/2023 4:00 PM EDT Imaging Radiology [address] [place] [address] 10/05/2023 7:30 AM EDT Imaging Vascular Lab, [place] [address] Amy [place] [address] 10/05/2023 8:30 AM EDT Imaging Vascular Lab, [place] [address] Amy [place] [address] 10/05/2023 9:30 AM EDT Imaging Vascular Lab, [facility] 2nd [facility] [address] [facility] [place] [address] 10/05/2023 11:00 AM EDT Imaging Vascular Lab, [facility] 2nd [facility] 132 [facility] [place] [address] 10/10/2023 4:00 PM EDT Office Visit Nephrology, [facility] [address] [place] [address] Charla Potter MD [address] [facility] [place] [address] 10/12/2023 1:30 PM EDT Office Visit Vascular Surgery, [facility] 132 [facility] [place] [address] Nnamdi King MD [address] [place], [place] [phone] Scheduled Orders Name Type Priority Associated Diagnoses Orde r Schedule MRI FOOT LEFT W WO CONTRAST Medical Imaging Routine Pain of toe of left foot Expected: 05/11/2023, Expires: 06/08/2024 Scheduled Procedures Name Priority Associated Diagnoses Date/Ti me ESOPHAGOGASTRODUODENOSCOPY ( EGD), FLEXIBLE, TRANSORAL, DIAGNOSTIC Recall Pendleton's esophagus Health Maintenance Due Date Last Done Comments DISCUSS TOBACCO CESSATION (REFER TO SMARTSET #1564) 1950 *ADVANCE DIRECTIVE NOT ON FILE 06/28/2020 Pendleton's Esophagus Surveilance 01/19/2022 01/19/2019, 09/27/2018, 09/27/2018 Mammogram 03/19/2022 03/19/2021, 03/0 03/2017, 08/19/2014, Additional history exists COVID-19 Vaccine ( season) 2022 07/14/2021, 08/12/2020, [...] COPD 11/17/2023 11/16/2022 Depression Screening 02/11/2024 02/10/2023 GFR 03/10/2024 03/10/2023, 12/09/2022, 02/07/2023, Additional history exists Albumin/Creatinine Ratio 04/13/2024 024, 04/13/2022, 06/03/2021, Additional history exists DTaP,Tdap,and Td Vaccines (3 - Td or Tdap) 07/15/2031 07/14/2021 (Declined), 07/27/2010 Pneumococcal Vaccine: 65+ Years Completed 10/27/2015, 08/08/2014, 05/30/2008 VITAMIN D LEVEL ONCE IN A LIFETIME-USE SMARTSET# [id number] Completed 10/16/2021, 12/27/2018 Alpha-1 Antitrypsin Discontinued GARDASIL-HPV [...] this encounter Medical Devices Implanted Type Area Flour Mixer Helper Device Identifier Shelf Expiration Date Model / Serial / Lot Stent Graft Icast [id number] - [id number] - [id number] Implanted:Qty : 1 on 04/14/2022 by Nnamdi King MD at [place] [facility] [place] N/A: Mesenteric Artery GETINGE : VITOR [id number] 02/21/2023 [id number] / [id number] / [id number] Description:implanted in SMA Stent [place] 3.0x15 Rx - [id number] Implanted:Qty : 1 on 11/12/2022 by Patrice Jose MD at [facility]ARDIAC LABS [facility] [place] MEDTRONIC : VASCULAR [id number] 11/28/2023 [id number] / / [id number] 2 documented as of this encounter Visit [...] patient or by statute hierarchy) Care Teams Assurance Senior Manager Insurance Relationship Specialty Start Date End Date Courtney Restrepo MD [address] [place] [address] [place] [address] PCP - General Family Medicine 10/17/19 documented as of this encounter
--- OUTSIDE RECORDS SUMMARY | 2023-08-31 06:41 | External Medical Summary | Summary of Care ---
Author Name Unknown Organization [facility] Address [address] [place] [address] Phone [phone] Care Team Providers Care Junior Assistant Manager Name Role Phone Courtney Restrepo MD Primary Care Prov ider Encounter Details Date Type Department Care Team (Late st Contact Info) Description 05/19/2023 External Data Patient Risk Medial Allergies Active Allergy Reactions Criticality Noted Date [...] edema Nitroglycerin Hypotension 12/20/2018 Penicillins Nausea/vomiting 05/17/2007 [place] Hives 10/02/2018 Propoxyphene Edema face/lips/tongue,Hiv es 06/26/2009 documented as of this encounter (statuses as of 05/19/2023) Medications Medication Sig Dispensed Refills Start Date [...] hemoglobin A1c goal of less than 8.0% ([facility]) Use to test glucose daily. E11.9 100 Each 11/29/2022 Active OneTouch Verio w/Device KitIndications:Type 2 diabetes mellitus with hemoglobin A1c goal of less than 8.0% ([facility]) Use to test glucose daily. E11.9 1 Kit 0 11/29/2022 Active Trelegy Ellipta 100-62.5-25 MCG/ACT Aerosol Powder Breath ActivatedIndications :COPD, group C, by GOLD 2017 classification ([facility]) Inhale 1 puff as directed once a day 1 inhalation daily. Rinse mouth after every use. 60 Blister Dosing Unit 11/29/2022 Active Sodium Chloride 4 MEQ/ML Oral [...] Pain, Severe. 60 Tablet 0 05/06/2023 Active documented as of this encounter (statuses as of 05/19/2023) Active Problems Problem Noted Date Diagnosed Date [...] rinse after steroid. Test performed by Bibiana ACADEMIC ADVISER CPFT Old [place] (myocardial infarction) 02/21/2019 Bilateral [...] osteoporosis 07/03/2018 Reactive depression 11/17/2017 Atherosclerosis of [place] co ronary artery of [place] heart without angina pectoris 07/22/2015 Overview: Single [...] rinse after steroid. Test performed by Bibiana ACADEMIC ADVISER CPFT GENERAL OSTEOARTHROSIS BMI 32.0-32.9,adult Tobacco use disorder Hyperlipidemia with target LDL less than 70 Overview: ICD-10 update of inactive term RSD upper limb Overview: left arm Generalized anxiety disorder documented as of this encounter (statuses as of 05/19/2023) Resolved Problems Problem Noted Date Diagnosed Date [...] ISCHEMIC HRT DIS NOS Coronary atherosclerosis of [place] coronary artery 11/24/2016 Tobacco abuse 11/17/2017 documented as of this encounter (statuses as of 05/19/2023) Immunizations Name Administration Dates Next Due COVID-19 [...] (15 years old or older) No 01/09/20 23 Cognitive Status Response Date of Assessm ent Because of a physical, menta l, or emotional condition, do you have serious difficulty concentrating, remembering, or making decisions? (5 years old or older) No 01/08/2023 documented as of this encounter Plan of Treatment Upcoming Encounters Date Type Department Care Team (Late st Contact Info) Description 05/20/2023 2:30 PM EST Imaging Radiology [facility] 1st [facility], [address] [place] [address] 05/20/2023 3:00 PM EST Imaging Radiology [address] [place] [address] 05/23/2023 8:00 AM EDT Imaging Vascular Lab, [facility] 2nd [facility], [address] [place] [address] 05/23/2023 9:00 AM EDT Imaging Vascular Lab, [facility] 2nd [facility], [address] [place] [address] 05/23/2023 10:00 AM EDT Imaging Vascular Lab, [facility] 2nd [facility], [address] [place] [address] 05/23/2023 11:00 AM EDT Imaging Vascular Lab, [facility] 2[address] [facility], [address] [place] [address] 05/24/2023 11:00 AM EDT Office Visit Family Medicine [address] [place] [phone] Courtney Restrepo MD [address] [place] [address] [place] [address] 06/08/2023 11:00 AM EDT Office Visit Cardiology, [address] [place] [address] Frantz Herrera [facility] [address] [facility] [address] 06/08/2023 12:30 PM EDT Office Visit Vascular Surgery, [facility] 132 [facility] [place] [address] Kyle Olivares PA-C [address] [facility] [place] [address] 06/10/2023 4:00 PM EDT Imaging Radiology [facility] 1st [facility] 132 [facility] [place] [address] 10/10/2023 4:00 PM EDT Office Visit Nephrology, [facility] 200 [place] [address] Charla Potter MD [address] [facility] [place], [place] [phone] Scheduled Procedures Name Priority Associated Diagnoses Date/Ti me ESOPHAGOGASTRODUODENOSCOPY ( EGD), FLEXIBLE, TRANSORAL, DIAGNOSTIC Recall Pend[place]'s esophagus Health Maintenance Due Date Last Done Comments DISCUSS TOBACCO CESSATION (REFER TO SMARTSET #329) 1950 *ADVANCE DIRECTIVE NOT ON FILE 06/28/2020 Pendleton's Esophagus Surveilance 01/19/2022 01/19/2019, 09/27/2018, 09/27/2018 Mammogram 03/19/2022 03/19/2021, 03/0 03/2017, 08/19/2014, Additional history exists COVID-19 Vaccine ( season) 2022 07/14/2021, 08/12/2020, 07/15/2020 Influenza Vaccine (FLU shot) (#1) 2022 11/17/2021, 11/30/2019, 12/27/2018, Additional history exists Diabetic Eye Exam 06/05/2023 06/04/2022 (No t indicated), 01/14/2021, 11/07/2019, Additional history exists HbA1c 06/10/2023 12/10/2022, 0610/2022, 03/26/2022, Additional history exists DXA Scan 07/22/2023 07/21/2021, 07/10/2018 Diabetic Foot Exam 09/09/2023 09/08/2022, 0 11/17/2021, 01/14/2021, Additional history exists COLONOSCOPY-EVERY 5 YRS AGES 18-100 09/28/2023 09/27/2018, 09/27/2018, 07/13/2018, Additional history exists O2 ASSESSMENT COMPLETED IN PAST YEAR FOR COPD 11/17/2023 11/16/2022 Depression Screening 02/11/2024 02/10/2023 Albumin/Creatinine Ratio 04/13/2024 024, 04/13/2022, 06/03/2021, Additional history exists GFR 05/11/2024 05/11/2023, 02/12, 02/17/2023, Additional history exists DTaP,Tdap,and Td Vaccines (3 - Td or Tdap) 07/15/2031 07/14/2021 (Declined), 07/27/2010 Pneumococcal Vaccine: 65+ Years Completed 10/27/2015, 08/08/2014, 05/30/2008 VITAMIN D LEVEL ONCE IN A LIFETIME-USE SMARTSET# [id number] Completed 10/16/2021, 12/27/2018 Alpha-1 Antitrypsin Discontinued GARDASIL-HPV [...] this encounter Medical Devices Implanted Type Area Grease Refiner Operator Device Identifier Shelf Expiration Date Model / Serial / Lot Stent Graft Icast [id number] - [id number] - [id number] Implanted:Qty : 1 on 04/14/2022 [place] Nnamdi [place] [facility] [place] Mesenteric Artery GETINGE : VITOR [id number] 02/21/2023 [id number] / [id number] / [id number] Description:implanted in SMA Stent [place] 3.0x15 Rx - [id number] Implanted:Qty : 1 on 11/12/2022 by Patrice Jose MD [place] [facility] [place] [employer] : VASCULAR [id number] 11/28/2023 [id number] / / [id number] 2 documented as of this encounter Advance [...] patient or by statute hierarchy) Care Teams Junior Assistant Manager Relationship Specialty Start Date End Date Courtney Restrepo MD [address] [place] [address] [place] [phone] PCP - General Family Medicine 10/17/19 documented as of this encounter
--- OUTSIDE RECORDS SUMMARY | 2023-08-31 06:41 | External Medical Summary | Summary of Care ---
Author Name Unknown Organization [facility] Address [address] [place] [address] Phone [phone] Care Team Providers Care Athletic Equipment Manager Name Role Phone Courtney Restrepo MD Primary Care Prov ider Encounter Details Date Type Department Care Team (Late st Contact Info) Description 05/11/2023 Result Scan Unspecified Department <No scans attached> [...] edema Nitroglycerin Hypotension 12/20/2018 Penicillins Nausea/vomiting 05/17/2007 [place] Hives 10/02/2018 Propoxyphene Edema face/lips/tongue,Hiv es 06/26/2009 documented as of this encounter (statuses as of 05/12/2023) Medications Medication Sig Dispensed Refills Start Date [...] of Breath. 100 mL 3 11/29/2022 Active WatchDoxTouch Delica Lancets 30GIndications:Type 2 diabetes mellitus with hemoglobin A1c goal of less than 8.0% ([facility]) Use to test glucose daily. E11.9 100 Each 5 11/29/2022 Active OneTouch Verio w/Device KitIndications:Type 2 diabetes mellitus with hemoglobin A1c goal of less than 8.0% ([facility]) Use to test glucose daily. E11.9 1 Kit 0 11/29/2022 Active Trelegy Ellipta 100-62.5-25 MCG/ACT Aerosol Powder Breath ActivatedIndications :COPD, group C, by GOLD 2017 classification ([facility]) Inhale 1 puff as directed [...] for 7 days. 14 Capsule 0 05/06/2023 03/01/202 4 Active HYDROcodone-Acetamin ophen 5-325 MG Oral TabletIndications:Ch ronic midline thoracic back pain Take 1 Tablet by mouth 2 times a day as needed for Pain, Severe. 60 Tablet 0 05/06/2023 4 Active documented as of this encounter (statuses as of 05/12/2023) Active Problems Problem Noted Date Diagnosed Date [...] rinse after steroid. Test performed by Bibiana RIBBON WEAVER CPFT [place] (myocardial infarction) 02/21/2019 Bilateral [...] rinse after steroid. Test performed by Bibiana RIBBON WEAVER CPFT GENERAL OSTEOARTHROSIS BMI 32.0-32.9,adult Tobacco use disorder Hyperlipidemia with target LDL less than 70 Overview: ICD-10 update of inactive term RSD upper limb Overview: left arm Generalized anxiety disorder documented as of this encounter (statuses as of 05/12/2023) Resolved Problems Problem Noted Date Diagnosed Date [...] as of this encounter (statuses as of 05/12/2023) Immunizations Name Administration Dates Next Due COVID-19 [...] Description 05/20/2023 2:30 PM EST Imaging Radiology [place] [address] Amy [place] [address] 05/20/2023 3:00 PM EST Imaging Radiology [place] [address] Amy [place] [address] 05/24/2023 11:00 AM EDT Office Visit Family Medicine [address] [place] [phone] Courtney Restrepo MD [address] [place] [address] [place] [address] 06/08/2023 11:00 AM EDT Office Visit Cardiology, [place] [address] [place] [address] Frantz Herrera MD [address] [place] [address] 06/10/2023 4:00 PM EDT Imaging Radiology [facility] [address] [place] [address] [place] [address] 10/05/2023 7:30 AM EDT Imaging Vascular Lab, [facility] 2nd [facility] [place] [address] 10/05/2023 8:30 AM EDT Imaging Vascular Lab, [facility] 2nd [facility] [address] [facility] [place] [address] 10/05/2023 9:30 AM EDT Imaging Vascular Lab, [address] [facility] [place] [address] 10/05/2023 11:00 AM EDT Imaging Vascular Lab, [address] [facility] [place] [address] 10/10/2023 4:00 PM EDT Office Visit Nephrology, [facility] [address] [facility], [place] [address] Charla Potter MD [address] [facility] [place] [address] 10/12/2023 1:30 PM EDT Office Visit Vascular Surgery, [address] [place] [address] Nnamdi King MD [address] [facility] [address] Scheduled Procedures Name Priority Associated Diagnoses Date/Ti me ESOPHAGOGASTRODUODENOSCOPY ( EGD), FLEXIBLE, TRANSORAL, DIAGNOSTIC Recall Pendleton's esophagus Health Maintenance Due Date Last Done Comments DISCUSS TOBACCO CESSATION (REFER TO SMARTSET #0077) 1949 *ADVANCE DIRECTIVE NOT ON FILE 06/28/2020 [...] D LEVEL ONCE IN A LIFETIME-USE SMARTSET# [id number] Completed 10/16/2021, 12/27/2018 Alpha-1 Antitrypsin Discontinued GARDASIL-HPV [...] this encounter Medical Devices Implanted Type Area Panel Machine Operator Device Identifier Shelf Expiration Date Model / Serial / Lot Stent Graft Icast [id number] - [id number] - [id number] Implanted:Qty : 1 on 04/14/2022 by Nnamdi [place] [facility] [place] Mesenteric Artery GETINGE : VITOR [id number] 02/21/2023 [id number] / [id number] / [id number] Description:implanted in SMA Stent [place] 3.0x15 Rx - [id number] Implanted:Qty : 1 on 11/12/2022 by Patrice Jose MD at [facility] [facility] [place] [employer] : VASCULAR [id number] 11/28/2023 [id number] / / [id number] documented as of this encounter Procedures Procedure Name Priority Date/Time Associated Diagnosis Comments OUTSIDE LAB RESULTS 05/11/2023 RADIOLOGY SCANNED RESULT 05/11/2023 documented in this encounter Results * RADIOLOGY SCANNED RESULT (05/11/2023) 05/11/2023 No Physician Data Unknown DIAGNOSTIC RAD IOLOGY SERVICES * OUTSIDE LAB RESULTS (05/11/2023) 05/11/2023 No Physician Data Unknown LABORATORY documented in this encounter Advance Directives Latest [...] patient or by statute hierarchy) Care Teams Athletic Equipment Manager Relationship Specialty Start Date End Date Courtney Restrepo MD [address] [place] [address] [place] [address] PCP - General Family Medicine 10/17/19 documented as of this encounter
--- OUTSIDE RECORDS SUMMARY | 2023-08-31 06:41 | External Medical Summary | Summary of Care ---
Author Name Unknown Organization [facility] Address [address] [place] [address] Phone [phone] Care Team Providers Care Drawing Frame Tender Name Role Phone Courtney Restrepo MD Primary Care Prov ider Encounter Details Date Type Department Care Team (Late st Contact Info) Description 05/12/2023 Orders Only Family Medicine [address] [phone] Courtney Restrepo MD [address] [place] [address] [place] [address] Allergies Active Allergy Reactions [...] edema Nitroglycerin Hypotension 12/20/2018 Penicillins Nausea/vomiting 05/17/2007 [place] Hives 10/02/2018 Propoxyphene Edema face/lips/tongue,Hiv es 06/26/2009 [...] 7 days. 14 Capsule 0 05/06/2023 4 Active HYDROcodone-Acetamin ophen 5-325 MG Oral [...] rinse after steroid. Test performed by Bibiana SHOE RECONDITIONER CPFT Old [place] (myocardial infarction) 02/21/2019 Bilateral [...] osteoporosis 07/03/2018 Reactive depression 11/17/[address] [place] co ronary artery of [place] heart without angina pectoris 07/22/2015 Overview: Single [...] rinse after steroid. Test performed by Bibiana SHOE RECONDITIONER CPFT GENERAL OSTEOARTHROSIS BMI 32.0-32.9,adult Tobacco use [...] ISCHEMIC HRT DIS NOS Coronary atherosclerosis of [place] coronary artery 11/24/2016 Tobacco abuse 11/17/2017 documented [...] Description 05/20/2023 2:30 PM EST Imaging Radiology [address] [address] 05/20/2023 3:00 PM EST Imaging Radiology [address] [place] [address] 05/24/2023 11:00 AM EDT Office Visit Family Medicine [address] [address] Courtney Restrepo MD [address] [place] [address] [place] [address] 06/08/2023 11:00 AM EDT Office Visit Cardiology, [address] [place] [address] Frantz Herrera MD [address] [place] [address] 06/10/2023 4:00 PM EDT Imaging Radiology [address] [place] [address] 10/05/2023 7:30 AM EDT Imaging Vascular Lab, [address], [address] [place] [address] 10/05/2023 8:30 AM EDT Imaging Vascular Lab, [address], [address] [place] [address] 10/05/2023 9:30 AM EDT Imaging Vascular Lab, [address], [address] [place] [address] 10/05/2023 11:00 AM EDT Imaging Vascular Lab, [address], [address] [place] [address] 10/10/2023 4:00 PM EDT Office Visit Nephrology, [address] [place] [address] Charla Potter MD [address] [place] [address] 10/12/2023 1:30 PM EDT Office Visit Vascular Surgery, [address] [place] [address] Nnamdi King MD [address] [place] [address] Scheduled Procedures Name Priority Associated Diagnoses Date/Ti [...] D LEVEL ONCE IN A LIFETIME-USE SMARTSET# [id number] Completed 10/16/2021, 12/27/2018 Alpha-1 Antitrypsin Discontinued GARDASIL-HPV [...] this encounter Medical Devices Implanted Type Area Men'S And Boys' Clothing Salesperson Device Identifier Shelf Expiration Date Model / Serial / Lot Stent Graft Icast [id number] - [id number] - [id number] Implanted:Qty : 1 on 04/14/2022 by Nnamdi King MD at [place] [facility] [place] N/A: Mesenteric Artery GETINGE : VITOR [id number] 02/21/2023 [id number] / [id number] / [id number] Description:implanted in SMA Stent Howie 3.0x15 Rx - [id number] Implanted:Qty : 1 on 11/12/2022 by Patrice Jose MD at [facility] [place] [employer] : VASCULAR [id number] 11/28/2023 [id number] / / [id number] 2 documented as of this encounter Procedures Procedure Name Priority Date/Time Associated Diagnosis Comments OUTSIDE LAB-CORONAVIRUS (COVID-19) Routine 05/11/2023 CHEMISTRY-OUTSIDE Routine 05/11/2023 documented in this encounter Results * OUTSIDE LAB-CORONAVIRUS (COVID-19) (05/11/2023) [id number] DE LAB NOT DETECTED NOT DETECTED OUTSIDE LAB (SEE SCANNED REPORT) 05/11/2023 Patrice Prakash DO LABORATORY OUTSIDE LAB (SEE SCANNED REPORT) * (ABNORMAL) CHEMISTRY-OUTSIDE (05/11/2023) Not all results display below - see scan for full detail OUTSIDE LAB (SEE SCANNED REPORT) Comment:SCAN INCLUDES - E.R. LABS: CBCD, FLU A, FLU B, SARS COV 2, RSV, BMP, PRO BNP, TROPONIN CREATININE-OUTSID E LAB 0.94 0.55 - 1.02 MG/DL OUTSIDE LAB (SEE SCANNED REPORT) EGFR-OUTSIDE LAB 64 >=60 ML/MIN/1.7 3M2 OUTSIDE LAB (SEE SCANNED REPORT) POTASSIUM-OUTSIDE LAB 4.4 3.5 - 5.1 MMOL/L OUTSIDE LAB (SEE SCANNED REPORT) GLUCOSE-OUTSIDE LAB 202(A) 70 - 110 MG/DL OUTSIDE LAB (SEE SCANNED REPORT) HOURS FASTING OUTSID E LAB (SEE SCANNED REPORT) TRIGLYCERIDES-OUT SIDE LAB OUTSIDE LAB (SEE SCANNED REPORT) CHOLESTEROL-OUTSI DE LAB OUTSIDE LAB (SEE SCANNED REPORT) HDL-OUTSIDE LAB OUTS [place] LAB (SEE SCANNED REPORT) CHOL/HDL RATIO-OUTSIDE LAB OUTSIDE LA B (SEE SCANNED REPORT) LDL (CALCULATED)-OUTS [place] [facility] OUTSIDE LAB (SEE SCANNED REPORT) LDL (DIRECT MEASURE)-OUTSIDE LAB OUTSIDE LAB (SEE SCANNED REPORT) HEMOGLOBIN, [id number] LAB OUTSIDE LAB (SEE SCANNED REPORT) PHOSPHORUS-OUTSID E LAB OUTSIDE LAB (SEE SCANNED REPORT) PTH-OUTSIDE LAB OUTS [place] [facility] (SEE SCANNED REPORT) MICROALBUMIN RATIO-OUTSIDE LAB OUTSIDE LA B (SEE SCANNED REPORT) PROTEIN, UA-OUTSIDE LAB OUTSIDE LAB (SEE SCANNED REPORT) HEMOGLOBIN-OUTSID E LAB 13.8 12.0 - 16.0 GM/DL OUTSIDE LAB (SEE SCANNED REPORT) 05/11/2023 Patrice Prakash DO LABORATORY OUTSIDE LAB (SEE SCANNED REPORT) documented in this encounter Advance Directives Latest [...] patient or by statute hierarchy) Care Teams Drawing Frame Tender Relationship Specialty Start Date End Date Courtney Restrepo MD [address] [place] [address] [place] [address] PCP - General Family Medicine 10/17/19 documented as of this encounter
--- OUTSIDE RECORDS SUMMARY | 2023-08-31 06:42 | External Medical Summary | Summary of Care ---
Author Name Unknown Organization [facility] Address [address] [place] [address] Phone [phone] Care Team Providers Care Railroad Construction Director Name Role Phone Courtney Restrepo MD Primary Care Prov ider Reason for Referral * Precert (Within 10 days (routine)) - Pending Review Specialty Diagnoses / Procedures Referred By Rosalia chandra Referred To Contact Radiology Diagnoses Pain of toe of left foot Procedures MRI FOOT LEFT W WO CONTRAST Magdalene Quigley MD [address] [place] [address] [place] [address] Referral ID Status Reason Start Date Expiration Date V isits Requested Visits Authorized [id number] Pending Review 05/11/2023 999 999 Reason for Visit * Reason Onset Date Comments Order Request 05/10/2023 Encounter Details Date Type Department Care Team (Late st Contact Info) Description 05/10/2023 [facility]phone [facility] [address] [place] [address] [place] [phone] Magdalene Quigley MD [address] [place] [address] [place] [address] Order Request Allergies Active Allergy Reactions Criticality [...] edema Nitroglycerin Hypotension 12/20/2018 Penicillins Nausea/vomiting 05/17/2007 [place] Hives 10/02/2018 Propoxyphene Edema face/lips/tongue,Hiv es 06/26/2009 [...] 2017 classification ([facility]) Inhale 1 puff as directed once [...] rinse after steroid. Test performed by Bibiana FITTER WELDER CPFT Old [place] (myocardial infarction) 02/21/2019 Bilateral [...] osteoporosis 07/03/2018 Reactive depression 11/17/2017 Atherosclerosis of [place] co ronary artery of [place] heart without angina pectoris 07/22/2015 Overview: Single [...] rinse after steroid. Test performed by Bibiana FITTER WELDER CPFT GENERAL OSTEOARTHROSIS BMI 32.0-32.9,adult Tobacco use [...] ISCHEMIC HRT DIS NOS Coronary atherosclerosis of [place] coronary artery 11/24/2016 Tobacco abuse 11/17/2017 documented [...] encounter Miscellaneous Notes * Addendum Note - Magdalene Quigley MD [...] Description 05/20/2023 2:30 PM EST Imaging Radiology [address], [address] [place] [address] 05/20/2023 3:00 PM EST Imaging Radiology [address] [place] [address] 05/24/2023 11:00 AM EDT Office Visit Family Medicine [address] [place] [phone] Courtney Restrepo MD [address] [place] [address] [place] [address] 06/08/2023 11:00 AM EDT Office Visit Cardiology, [address] [place] [address] Frantz Herrera MD [address] [place] [address] 06/10/2023 4:00 PM EDT Imaging Radiology [address], [address] [place] [address] 10/05/2023 7:30 AM EDT Imaging Vascular Lab, [facility], [address] [place] [address] 10/05/2023 8:30 AM EDT Imaging Vascular Lab, [facility], [address] [place] [address] 10/05/2023 9:30 AM EDT Imaging Vascular Lab, [facility], [address] [place] [address] 10/05/2023 11:00 AM EDT Imaging Vascular Lab, [facility], [address] [place] [address] 10/10/2023 4:00 PM EDT Office Visit Nephrology, [facility] [address] [place] [address] Charla Potter MD 400 [place] [address] 10/12/2023 1:30 PM EDT Office Visit Vascular Surgery, [facility] [address] Nnamdi King MD [address] [place] [address] Scheduled Orders Name Type Priority Associated Diagnoses [...] Depression Screening 02/11/2024 02/10/2023 GFR 03/10/2024 03/10/2023, 12/0 09/2022, 02/07/2023, Additional history exists Albumin/Creatinine Ratio 04/13/2024 024, 04/13/2022, 06/03/2021, Additional history exists DTaP,Tdap,and Td Vaccines (3 - Td or Tdap) 07/15/2031 07/14/2021 (Declined), 07/27/2010 Pneumococcal Vaccine: 65+ Years Completed 10/27/2015, 08/08/2014, 05/30/2008 VITAMIN D LEVEL ONCE IN A LIFETIME-USE SMARTSET# [id number] Completed 10/16/2021, 12/27/2018 Alpha-1 Antitrypsin Discontinued GARDASIL-HPV [...] this encounter Medical Devices Implanted Type Area Lip And Gate Builder Device Identifier Shelf Expiration Date Model / Serial / Lot Stent Graft Icast [id number] - [id number] - [id number] Implanted:Qty : 1 on 04/14/2022 by Nnamdi King MD [place] [facility] [place]/A: Mesenteric Artery GETINGE : VITOR [id number] 02/21/2023 [id number] / [id number] / [id number] Description:implanted in SMA Stent Howie 3.0x15 Rx - [id number] Implanted:Qty : 1 on 11/12/2022 by Patrice Jose MD at [place] [place] [facility] [place] [employer] : VASCULAR [id number] 11/28/2023 [id number] / / [id number] documented as of this encounter Visit [...] patient or by statute hierarchy) Care Teams Railroad Construction Director Relationship Specialty Start Date End Date Courtney Restrepo MD [address] [place] [address] [place] [phone] PCP - General Family Medicine 10/17/19 documented as of this encounter
--- OUTSIDE RECORDS SUMMARY | 2023-08-31 06:42 | External Medical Summary | Summary of Care ---
Author Name Unknown Organization [facility] Address [address] [place] [address] Phone [phone] Care Team Providers Care Electric Motor Mechanic Name Role Phone Courtney Restrepo MD Primary Care Prov ider Reason for Visit * Reason Onset Date Comments Order Request 05/10/2023 Encounter Details Date Type Department Care Team (Late st Contact Info) Description 05/10/2023 Telephone Family Medicine [address] [phone] Rosalio Benson MD [address] [place] [address] [place] [id number] Order Request Allergies Active Allergy Reactions Criticality [...] edema Nitroglycerin Hypotension 12/20/2018 Penicillins Nausea/vomiting 05/17/2007 [place] Hives 10/02/2018 Propoxyphene Edema face/lips/tongue,Hiv es 06/26/2009 documented as of this encounter (statuses as of 05/10/2023) Medications Medication Sig Dispensed Refills Start Date [...] of Breath. 100 mL 3 11/29/2022 Active [email or web address] Delica Lancets 30GIndications:Type 2 diabetes mellitus with hemoglobin A1c goal of less than 8.0% ([facility]) Use to test glucose daily. E11.9 100 Each 5 11/29/2022 Active PellePharmTouch Verio w/Device KitIndications:Type 2 diabetes mellitus with hemoglobin A1c goal of less than 8.0% ([facility]) Use to test glucose daily. E11.9 1 Kit 0 11/29/2022 Active Trelegy Ellipta 100-62.5-25 MCG/ACT Aerosol Powder Breath ActivatedIndications :COPD, group C, by GOLD 2017 classification ([facility]) Inhale 1 puff as directed once a day 1 inhalation daily. Rinse mouth after every use. 60 Blister Dosing Unit 5 11/29/2022 Active Sodium Chloride 4 MEQ/ML Oral Solution Take by mouth. 0 Active NovoLOG FlexPen 100 UNIT/ML Subcutaneous Solution Pen-injector (insulin aspart)Indications:T ype 2 diabetes mellitus with hemoglobin A1c goal of less than 8.0% ([facility]) Units as per sliding scale 3 mL 3 02/04/2023 Active Insulin Glargine Solostar 100 UNIT/ML Subcutaneous Solution Pen-injector (Lantus SoloStar)Indications :Type 2 diabetes mellitus with hemoglobin A1c goal of less than 8.0% ([facility]) Inject 10 Units under the [...] acute on chronic diastolic congestive heart failure ([facility]) Take 2 Tablets by mouth in the morning. 180 Tablet 3 02/07/2023 Active Align Extra Strength Oral Capsule Take 1 Capsule by mouth every evening. 0 Active OneTouch Verio In Vitro Strip (Glucose Blood)Indications:Ty pe 2 diabetes mellitus with hemoglobin A1c goal of less than 8.0% ([facility]) Test glucose once daily E11.9 [...] as of this encounter (statuses as of 05/10/2023) Active Problems Problem Noted Date Diagnosed Date [...] rinse after steroid. Test performed by Bibiana TUG CAPTAIN CPFT Old [place] (myocardial infarction) 02/21/2019 Bilateral [...] osteoporosis 07/03/2018 Reactive depression 11/17/2017 Atherosclerosis of [place] co ronary artery of [place] heart without angina pectoris 07/22/2015 Overview: Single [...] rinse after steroid. Test performed by Bibiana TUG CAPTAIN CPFT GENERAL OSTEOARTHROSIS BMI 32.0-32.9,adult Tobacco use disorder Hyperlipidemia with target LDL less than 70 Overview: ICD-10 update of inactive term RSD upper limb Overview: left arm Generalized anxiety disorder documented as of this encounter (statuses as of 05/10/2023) Resolved Problems Problem Noted Date Diagnosed Date [...] ISCHEMIC HRT DIS NOS Coronary atherosclerosis of [place] coronary artery 11/24/2016 Tobacco abuse 11/17/2017 documented as of this encounter (statuses as of 05/10/2023) Immunizations Name Administration Dates Next Due COVID-19 [...] encounter Miscellaneous Notes * Telephone Encounter - Deanne Forte OSA - 05/10/2023 2:35 PM EST Pt is scheduled for her MRI foot but the order needs to be w and wo contrast documented in this encounter Plan of Treatment Upcoming Encounters Date Type Department Care Team (Late st Contact Info) Description 05/20/2023 2:30 PM EST Imaging Radiology [address] [place] [address] 05/20/2023 3:00 PM EST Imaging Radiology [address] [place] [address] 05/24/2023 11:00 AM EDT Office Visit Family Medicine [address] [place] [phone] Courtney Restrepo MD [address] [place] [address] [place] [address] 06/08/2023 11:00 AM EDT Office Visit Cardiology, [facility] [address] [facility] [place] [address] Frantz Herrera MD [address] [place], [place] [phone] 06/10/2023 4:00 PM EDT Imaging Radiology [facility] 1st [facility] [place] [address] [facility] [place] [address] 10/05/2023 7:30 AM EDT Imaging Vascular Lab, [facility] 2nd [facility], [address] [place] [address] 10/05/2023 8:30 AM EDT Imaging Vascular Lab, [facility] 2nd Floor, [place] [address] [facility] [place] [address] 10/05/2023 9:30 AM EDT Imaging Vascular Lab, [facility] [address] [facility], [place] [address] [facility] [place] [address] 10/05/2023 11:00 AM EDT Imaging Vascular Lab, [facility] [address] [facility], [place] [address] [facility] [place] [address] 10/10/2023 4:00 PM EDT Office Visit Nephrology, [address] [place] [address] Charla Potter MD [address] [place] [address] 10/12/2023 1:30 PM EDT Office Visit Vascular Surgery, [facility] [address] [facility] [place] [address] Nnamdi King MD [address] [place], [place] [phone] Scheduled Procedures Name Priority Associated Diagnoses Date/Ti me ESOPHAGOGASTRODUODENOSCOPY ( EGD), FLEXIBLE, TRANSORAL, DIAGNOSTIC Recall Pendleton's esophagus Health Maintenance Due Date Last Done Comments DISCUSS TOBACCO CESSATION (REFER TO SMARTSET #5973) 1949 *ADVANCE DIRECTIVE NOT ON FILE 06/28/2020 [...] D LEVEL ONCE IN A LIFETIME-USE SMARTSET# [id number] Completed 10/16/2021, 12/27/2018 Alpha-1 Antitrypsin Discontinued GARDASIL-HPV [...] this encounter Medical Devices Implanted Type Area Nursing Executive Device Identifier Shelf Expiration Date Model / Serial / Lot Stent Graft Icast [id number] - [id number] - [id number] Implanted:Qty : 1 on 04/14/2022 by Nnamdi King [place] [facility] [place] Mesenteric Artery GETINGE : YOELT [id number] 02/21/2023 [id number] / [id number] / [id number] Description:implanted in SMA Stent [place] 3.0x15 Rx - [id number] Implanted:Qty : 1 on 11/12/2022 by Patrice Jose MD [place] [facility] [place] [employer] : VASCULAR [id number] 11/28/2023 [id number] / / [id number] documented as of this encounter Advance [...] patient or by statute hierarchy) Care Teams Electric Motor Mechanic Relationship Specialty Start Date End Date Courtney Restrepo MD [address] [place] [address] [place] [address] PCP - General Family Medicine 10/17/19 documented as of this encounter
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
--- OUTSIDE RECORDS SUMMARY | 2023-08-31 06:42 | External Medical Summary | Summary of Care ---
Author Name Unknown Organization [facility] Address [address] [place] [address] Phone [phone] Care Team Providers Care Vocational Rehabilitation Supervisor Name Role Phone Courtney Restrepo MD Primary Care Prov ider Reason for Visit * Reason Onset Date Comments Encounter Created in Error 05/11/2023 Encounter Details Date Type Department Care Team (Late st Contact Info) Description 05/11/2023 Telephone Cardiology, [facility] [address] [place] [address] Kyle Chapa, [address] [facility] [place] [address] Encounter Created in Error Allergies Active Allergy Reactions Criticality Noted Date [...] of Breath. 100 mL 3 11/29/2022 Active [place] Researchuch Delica Lancets 30GIndications:Type 2 diabetes mellitus with hemoglobin A1c goal of less than 8.0% (HCC) Use to test glucose daily. E11.9 100 Each 5 11/29/2022 Active LiquidCompassTouch Verio w/Device KitIndications:Type 2 diabetes mellitus with hemoglobin A1c goal of less than 8.0% (HCC) Use to test glucose daily. E11.9 1 Kit 0 11/29/2022 Active Trelegy Ellipta 100-62.5-25 MCG/ACT Aerosol Powder Breath ActivatedIndications :COPD, group C, by GOLD 2017 classification ([facility]) Inhale 1 puff as directed once a day 1 inhalation daily. Rinse mouth after every use. 60 Blister Dosing Unit 5 11/29/2022 Active Sodium Chloride 4 MEQ/ML Oral Solution Take by mouth. 0 Active NovoLOG FlexPen 100 UNIT/ML Subcutaneous Solution Pen-injector (insulin aspart)Indications:T ype 2 diabetes mellitus with hemoglobin A1c goal of less than 8.0% ([facility]) Units as per sliding scale 3 mL 3 02/04/2023 Active Insulin Glargine Solostar 100 UNIT/ML Subcutaneous Solution Pen-injector (Lantus SoloStar)Indications :Type 2 diabetes mellitus with hemoglobin A1c goal of less than 8.0% ([facility]) Inject 10 Units under the skin [...] acute on chronic diastolic congestive heart failure ([facility]) Take 2 Tablets by mouth in the morning. 180 Tablet 3 02/07/2023 Active Align Extra Strength Oral Capsule Take 1 Capsule by mouth every evening. 0 Active OneTouch Verio In Vitro Strip (Glucose Blood)Indications:Ty pe 2 diabetes mellitus with hemoglobin A1c goal of less than 8.0% ([facility]) Test glucose once daily E11.9 100 [...] rinse after steroid. Test performed by Bibiana LATIN AMERICAN STUDIES DIRECTOR CPFT [place] (myocardial infarction) 02/21/2019 Bilateral [...] osteoporosis 07/03/2018 Reactive depression 11/17/2017 Atherosclerosis of [place] co ronary artery of [place] heart without angina pectoris 07/22/2015 Overview: Single [...] rinse after steroid. Test performed by Bibiana LATIN AMERICAN STUDIES DIRECTOR CPFT GENERAL OSTEOARTHROSIS BMI 32.0-32.9,adult Tobacco [...] ISCHEMIC HRT DIS NOS Coronary atherosclerosis of [place] coronary artery 11/24/2016 Tobacco abuse 11/17/2017 documented [...] Description 05/20/2023 2:30 PM EST Imaging Radiology [address] [address] 05/20/2023 3:00 PM EST Imaging Radiology [address] [address] 05/24/2023 11:00 AM EDT Office Visit Family Medicine [address] [place] [address] Courtney Restrepo MD [address] [place] [address] [place] [address] 06/08/2023 11:00 AM EDT Office Visit Cardiology, [address] [place] [address] Frantz Herrera MD [address] [place] [address] 06/10/2023 4:00 PM EDT Imaging Radiology [address] [place] [address] [facility] [place] [address] 10/05/2023 7:30 AM EDT Imaging Vascular Lab, [facility] [address] [facility], [address] [place] [address] 10/05/2023 8:30 AM EDT Imaging Vascular Lab, [facility] [address] [facility], [address] [place] [address] 10/05/2023 9:30 AM EDT Imaging Vascular Lab, [facility] [address] [facility], [address] [place] [address] 10/05/2023 11:00 AM EDT Imaging Vascular Lab, [facility] [address] [facility], [address] [place] [address] 10/10/2023 4:00 PM EDT Office Visit Nephrology, [address] [place] [address] Charla Potter MD [address] [place] [address] 10/12/2023 1:30 PM EDT Office Visit Vascular Surgery, [address] [place] [address] Nnamdi King MD [address] [place], [place] [phone] Scheduled Procedures Name Priority Associated Diagnoses Date/Ti me ESOPHAGOGASTRODUODENOSCOPY ( EGD), FLEXIBLE, TRANSORAL, DIAGNOSTIC Recall Pendleton's esophagus Health Maintenance Due Date Last Done Comments DISCUSS TOBACCO CESSATION (REFER TO SMARTSET #3291) 1950 *ADVANCE DIRECTIVE NOT ON FILE 06/28/2020 Pendleton's Esophagus Surveilance 01/19/2022 01/19/2019, 09/27/2018, 09/27/2018 Mammogram 03/19/2022 03/19/2021, 03/0 03/2017, 08/19/2014, Additional history exists COVID-19 Vaccine ( - season) 2022 07/14/2021, 08/12/2020, 07/15/2020 Influenza Vaccine [...] D LEVEL ONCE IN A LIFETIME-USE SMARTSET# 61784 Completed 10/16/2021, 12/27/2018 Alpha-1 Antitrypsin Discontinued GARDASIL-HPV [...] this encounter Medical Devices Implanted Type Area Director Operations Broadcast Device Identifier Shelf Expiration Date Model / Serial / Lot Stent Graft Icast [id number] - [id number] - [id number] Implanted:Qty : 1 on 04/14/2022 by Nnamdi King MD at OR [facility] N/A: Mesenteric Artery GETINGE : YOELT [id number] 02/21/2023 [id number] / [id number] / [id number] Description:implanted in SMA Stent [place] 3.0x15 Rx - [id number] Implanted:Qty : 1 on 11/12/2022 by Patrice Jose MD at [facility] [employer] : VASCULAR [id number] 11/28/2023 [id number] / / [id number] documented as of this encounter Advance [...] patient or by statute hierarchy) Care Teams Vocational Rehabilitation Supervisor Relationship Specialty Start Date End Date Courtney Restrepo MD [address] [place] [address] [place] [id number] PCP - General Family Medicine 10/17/19 documented as of this encounter
--- OUTSIDE RECORDS SUMMARY | 2023-08-31 06:43 | External Medical Summary | Summary of Care ---
Author Name Unknown Organization [facility] Address [address] [place] [address] Phone [phone] Care Team Providers Care Director Clinical Operations Name Role Phone Courtney Restrepo MD Primary Care Prov ider Reason for Visit * Reason Onset Date Comments Medication Refill 05/06/2023 Encounter Details Date Type Department Care Team (Late st Contact Info) Description 05/06/[address] [phone] Courtney Restrepo MD [address] [place], [place] [address] [phone] Chronic midline thoracic back pain Allergies Active Allergy Reactions Criticality Noted Date [...] edema Nitroglycerin Hypotension 12/20/2018 Penicillins Nausea/vomiting 05/17/2007 [place] Hives 10/02/2018 Propoxyphene Edema face/lips/tongue,Hiv es 06/26/2009 documented as of this encounter (statuses as of 05/06/2023) Medications Medication Sig Dispensed Refills Start Date [...] of Breath. 100 mL 3 11/29/2022 Active datatracker Delica Lancets 30GIndications:Type 2 diabetes mellitus with hemoglobin A1c goal of less than 8.0% (HCC) Use to test glucose daily. E11.9 100 Each 5 11/29/2022 Active WannyiTouch Verio w/Device KitIndications:Type 2 diabetes mellitus with [...] chronic diastolic congestive heart failure ([facility]) Take 2 Tablets by mouth [...] Severe. 60 Tablet 0 05/06/2023 4 Active HYDROcodone-Acetami nophen 5-325 MG Oral TabletIndications:C hronic midline thoracic back pain Take 1 Tablet by mouth 2 times a day as needed for Pain, Severe. 14 Tablet 0 04/29/2023 4 Discontinu ed(Refill) documented as of this encounter (statuses as of 05/06/2023) Active Problems Problem Noted Date Diagnosed Date [...] after steroid. Test performed by Bibiana PRINT LINE OPERATOR CPFT Old [place] (myocardial infarction) 02/21/2019 Bilateral carotid artery stenosis [...] osteoporosis 07/03/2018 Reactive depression 11/17/2017 Atherosclerosis of grindstone co ronary artery of grindstone heart without angina pectoris 07/22/2015 Overview: Single [...] after steroid. Test performed by Bibiana PRINT LINE OPERATOR CPFT GENERAL OSTEOARTHROSIS BMI 32.0-32.9,adult Tobacco use disorder Hyperlipidemia with target LDL less than 70 Overview: ICD-10 update of inactive term RSD upper limb Overview: left arm Generalized anxiety disorder documented as of this encounter (statuses as of 05/06/2023) Resolved Problems Problem Noted Date Diagnosed Date [...] ISCHEMIC HRT DIS NOS Coronary atherosclerosis of [place] coronary artery 11/24/2016 Tobacco abuse 11/17/2017 documented as of this encounter (statuses as of 05/06/2023) Immunizations Name Administration Dates Next Due COVID-19 [...] Telephone Encounter - Courtney Restrepo MD - 05/06/2023 4:48 PM EST Signed Prescriptions: Disp Refills HYDROcodone-Acetaminophen 5-325 MG Oral Ta*60 Tab*0 Sig: Take 1 Tablet by mouth 2 times a day as needed for Pain, Severe.Authorizing Provider: COURTNEY RESTREPO * Telephone Encounter - Courtney Restrepo MD - 05/06/2023 4:46 PM EST Signed Prescriptions: Disp Refills HYDROcodone-Acetaminophen 5-325 MG Oral Ta*60 Tab*0 Sig: Take 1 Tablet by mouth 2 times a day as needed for Pain, Severe.Authorizing Provider: COURTNEY RESRTEPO * Telephone Encounter - Sheila Connolly DO - 05/06/2023 3:59 PM EST Defer to PCP. * Telephone Encounter - Dee Martinez LPN - 05/06/2023 3:57 PM EST Patient calling in to check on the status of her medication. * Telephone Encounter - Dee Martinez LPN - 05/06/2023 1:57 PM EST Please call patient's cell phone when sent. Pending Prescriptions: Disp Refills HYDROcodone-Acetaminophen 5-325 MG Oral T*14 Tab*0 Sig: Take 1 Tablet by mouth 2 times a day as needed for Pain, Severe. Last Visit: 05/06/2023 (in office), 11/29/2022 (telemedicine) Next Visit: 05/09/2023 Last date the medication was ordered: 04/29/2023 Patient Active Problem List Diagnosis Code Moderate [...] Z79.899 Generalized anxiety disorder F41.1 Atherosclerosis of grindstone coronary artery of grindstone heart without angina pectoris I25.10 Reactive depression F32.9 Senile osteoporosis M81.0 PVD (peripheral vascular disease) ([facility]) I73.9 Iron deficiency anemia due to chronic blood loss D50.0 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 K22.70 Chronic superficial gastritis with bleeding K29.31 Gastrointestinal hemorrhage with melena K92.1 Lung nodules R91.8 Severe mitral regurgitation I34.0 [place] (myocardial infarction) I25.2 Bilateral carotid artery stenosis [...] [facility]) I69.354 Wound drainage L24.A9 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 Hypertensive heart disease with acute on chronic diastolic congestive heart failure ([facility]) I11.0, I50.33 History of cardiac arrest Z86.74 Shock ([facility]) R57.9 PRAKASH (acute kidney injury) ([facility]) N17.9 Lactic acidosis E87.20 Transaminitis R74.01 Encephalopathy acute G93.40 Pathological fracture of sacral vertebra due to osteoporosis ([facility]) M80.08XA Other disorders of phosphorus metabolism E83.39 Labs: Lab Results Component Value Date/Time CREATININE - [facility] 0.8 02/17/2023 12:06 PM CREATININE - [facility] 0.8 04/09/2020 01:42 PM CREATININE MATILDA 19 04/09/2020 01:56 PM CREATININE MATILDA - [facility] 59 11/17/2021 02:54 PM CREATININE, RANDOM URINE - [facility] 151 04/13/2023 10:12 AM CREATININE, RANDOM URINE - [facility] 64 12/07/2019 03:43 PM CREATININE-OUTSIDE LAB 1.02 03/10/2023 12:00 AM Lab Results Component Value Date/Time POTASSIUM - [facility] 4.9 02/17/2023 12:06 PM POTASSIUM - [facility] 4.3 04/09/2020 01:42 PM POTASSIUM POCT - [facility] 4.1 01/18/2023 01:37 AM POTASSIUM-OUTSIDE LAB 4.2 03/10/2023 12:00 AM Lab Results Component Value Date/Time [...] Results Component Value Date/Time ALT - [facility] 39 (H) 02/02/2023 11:23 AM ALT - [facility] 18 01/01/2020 01:27 [...] 05/09/2023 10:00 AM EST Office Visit Family [address] [phone] Eben Obregon CRNP [address] [place] [address] [place] [address] 05/24/2023 11:00 AM EDT Office Visit [address] [phone] Courtney Restrepo MD [address] [place] [address] [place] [address] 06/08/2023 11:00 AM EDT Office Visit Cardiology, [address] [place] [address] Frantz Herrera MD [facility] [place] [address] 10/05/2023 7:30 AM EDT Imaging Vascular Lab, [address] [place] [address] 10/05/2023 8:30 AM EDT Imaging Vascular Lab, [address] [place] [address] 10/05/2023 9:30 AM EDT Imaging Vascular Lab, [facility] [address] [facility] [place] [address] 10/05/2023 11:00 AM EDT Imaging Vascular Lab, [facility] [address] [facility] [place] [address] 10/10/2023 4:00 PM EDT Office Visit Neph[facility], [facility] [address] Charla Potter MD [address] [facility] [place] [address] 10/12/2023 1:30 PM EDT Office Visit Vascular Surgery, [facility] [address] [facility] [place] [address] Nnamdi King MD [address] [place], [place] [id number] Scheduled Procedures Name Priority Associated Diagnoses Date/Ti me ESOPHAGOGASTRODUODENOSCOPY ( EGD), FLEXIBLE, TRANSORAL, DIAGNOSTIC Recall Pendleton's esophagus Health Maintenance Due Date Last Done Comments DISCUSS TOBACCO CESSATION (REFER TO SMARTSET #4123) 1950 *ADVANCE DIRECTIVE NOT ON FILE 06/28/2020 [...] Depression Screening 02/11/2024 02/10/2023 GFR 03/10/2024 03/10/2023, 09/2022, 02/07/2023, Additional history exists Albumin/Creatinine Ratio 04/13/2024 024, 04/13/2022, 06/03/2021, Additional history exists DTaP,Tdap,and Td Vaccines (4 - Td or Tdap) 10/17/2032 10/17/2022, 07/14/2021 (Declined), 07/27/2010 Pneumococcal Vaccine: 65+ Years Completed 10/27/2015, 08/08/2014, 05/30/2008 VITAMIN D LEVEL ONCE IN A LIFETIME-USE SMARTSET# 94571 Completed 10/16/2021, 12/27/2018 Alpha-1 Antitrypsin Discontinued GARDASIL-HPV [...] this encounter Medical Devices Implanted Type Area Chainstitch Elastic Attacher Device Identifier Shelf Expiration Date Model / Serial / Lot Stent Graft Icast [id number] - [id number] - [id number] Implanted:Qty : 1 on 04/14/2022 by Nnamdi King MD [place] [facility] [place]A: Mesenteric Artery GETINGE : MAQUET [id number] 02/21/2023 [id number] / [id number] / [id number] Description:implanted in SMA Stent [place] 3.0x15 Rx - [id number] Implanted:Qty : 1 on 11/12/2022 by Patrice Jose MD at [facility] [place] [facility] [place] [employer] : VASCULAR [id number] 11/28/2023 [id number] / / [id number] 2 documented as of this encounter Visit Diagnoses Diagnosis Chronic midline thoracic back pain documented in this encounter Advance Directives [...] patient or by statute hierarchy) Care Teams Director Clinical Operations Relationship Specialty Start Date End Date Courtney Restrepo MD [address] [place] [address] [place] [address] PCP - General Family Medicine 10/17/19 documented as of this encounter
--- OUTSIDE RECORDS SUMMARY | 2023-08-31 06:43 | External Medical Summary | Summary of Care ---
Author Name Unknown Organization [facility] Address [address] [place] [address] Phone [phone] Care Team Providers Care Sales Coordinator Name Role Phone Courtney Restrepo MD Primary Care Prov ider Reason for Referral * Precert (Within 10 days (routine)) - Pending Review Specialty Diagnoses / Procedures Referred By Rosalia chandra Referred To Contact Radiology Diagnoses Abnormal x-ray Pain of toe of left foot Procedures MRI FOOT LEFT W CONTRAST Magdalene Benson MD [address] [place] [address] [place] [address] Referral ID Status Reason Start Date Expiration Date V isits Requested Visits Authorized [id number] Pending Review 05/06/2023 999 999 Reason for Visit * Reason Onset Date Comments Test Results 05/06/2023 Unexpected or In determinate Result Encounter Details Date Type Department Care Team (Late st Contact Info) Description 05/06/2023 Telephone Radiology [facility] [address] [place] [phone] Magdalene Benson MD [address] [place] [address] [place] [address] Test Results (Unexpected or Indeterminate ... Allergies Active Allergy Reactions Criticality Noted Date [...] Nitroglycerin Hypotension 12/20/2018 Penicillins Nausea/vomiting 05/17/2007 [place] Hives 10/02/2018 Propoxyphene Edema face/lips/tongue,Hiv es 06/26/2009 [...] of less than 8.0% ([facility]) Use to test glucose daily. E11.9 100 Each 5 11/29/2022 Active OneTouch Verio w/Device KitIndications:Type 2 diabetes mellitus with hemoglobin A1c goal of less than 8.0% ([facility]) Use to test glucose daily. E11.9 1 Kit 0 11/29/2022 Active Trelegy Ellipta 100-62.5-25 MCG/ACT Aerosol Powder Breath ActivatedIndication s:COPD, group C, by GOLD 2017 classification ([facility]) Inhale 1 puff as directed once a day 1 inhalation daily. Rinse mouth after every use. 60 Blister Dosing Unit 5 11/29/2022 Active Sodium Chloride 4 MEQ/ML Oral Solution Take by mouth. 0 Active NovoLOG FlexPen 100 UNIT/ML Subcutaneous Solution Pen-injector (insulin aspart)Indications: Type 2 diabetes mellitus with hemoglobin A1c goal of less than 8.0% ([facility]) Units as per sliding scale 3 mL 3 02/04/2023 Active Insulin Glargine Solostar 100 UNIT/ML Subcutaneous Solution Pen-injector (Lantus SoloStar)Indication s:Type 2 diabetes mellitus with hemoglobin A1c goal of less than 8.0% ([facility]) Inject 10 Units under the skin [...] of less than 8.0% ([facility]) Test glucose once daily E11.9 100 [...] days. 14 Capsule 0 05/06/2023 4 Active Nitrofurantoin Monohyd Macro 100 MG Oral Capsule (Macrobid)Indicatio ns:Acute cystitis without hematuria Take 1 Capsule by mouth in the morning and 1 Capsule before bedtime. Do all this for 7 days. With food until gone. 14 Capsule 0 04/13/2023 4 Discontinu ed(Medicat ion List Clean Up) HYDROcodone-Acetami nophen 5-325 MG Oral TabletIndications:C hronic [...] rinse after steroid. Test performed by Bibiana DEPUTY ASSESSOR CPFT Old [place] (myocardial infarction) 02/21/2019 Bilateral [...] 07/03/2018 Reactive depression 11/17/2017 Atherosclerosis of upper [place] co ronary artery of upper [place] heart without angina pectoris 07/22/2015 Overview: Single [...] rinse after steroid. Test performed by Bibiana DEPUTY ASSESSOR CPFT GENERAL OSTEOARTHROSIS BMI 32.0-32.9,adult Tobacco use [...] HRT DIS NOS Coronary atherosclerosis of upper [place] coronary artery 11/24/2016 Tobacco abuse 11/17/2017 documented [...] money to buy more. Never true 02/11/20 Within the past 12 months, t he [...] Encounter - Umu Hitchcock LPN - 05/09/2023 10:23 AM EST Pt seeing Eben today. Will let her know. * Addendum Note - Magdalene Benson MD - 05/06/2023 1:34 PM ESTAddended by: MAGDALENE BENSON on: 05/06/2023 01:34 PM Modules accepted: Orders * Telephone Encounter - Magdalene Benson MD - 05/06/2023 1:31 PM EST Please inform the pt - your foot xray showed no fracture - however the radiologist recommended further images to better visualize your foot. - I ordered the MRI * Telephone Encounter - Randa Patterson TECH - 05/06/2023 12:09 PM EST Hello- The radiologist discovered an unexpected or indeterminate finding on Carlotta Khan ([id number]) and asks that you review the following report. Study Type: XR FOOT 3 OR MORE VIEWS Date of Study: 05/06/2023 IMPRESSION No acute fracture or dislocation. Indeterminate 4 mm lucency of the base of the small toe proximal phalanx with apparent cortical erosion, which may represent artifact of obliquity versus lesion, recommend nonemergent MRI of the forefoot without and with contrast for further characterization. Please respond to this encounter to acknowledge receipt of this message and take responsibility to ensure this report is reviewed. Thank you, LUKE Love Client Service Rep Diagnostic Medicine [place] documented in this encounter Plan of Treatment Upcoming Encounters Date Type Department Care Team (Late st Contact Info) Description 05/24/2023 11:00 AM EDT Office Visit Family Medicine [address] [place] [phone] Courtney Restrepo MD [address] [place] [address] [place] [address] 06/08/2023 11:00 AM EDT Office Visit Cardiology, [address] [place] [address] Frantz Herrera MD [address] [place] [address] 10/05/2023 7:30 AM EDT Imaging Vascular Lab, [address], [address] [place] [address] 10/05/2023 8:30 AM EDT Imaging Vascular Lab, [address], [address] [place] [address] 10/05/2023 9:30 AM EDT Imaging Vascular Lab, [address], [address] [place] [address] 10/05/2023 11:00 AM EDT Imaging Vascular Lab, [address] [place] [address] 10/10/2023 4:00 PM EDT Office Visit Nephrology, [address] [address] Charla Potter MD [address] [place] [address] 10/12/2023 1:30 PM EDT Office Visit Vascular Surgery, [address] [place] [address] Nnamdi King MD [address] [place], [place] [phone] Scheduled Orders Name Type Priority Associated Diagnoses Orde r Schedule MRI FOOT LEFT W CONTRAST Medical Imaging Routine Abnormal x-ray Pain of toe of left foot Ordered: 05/06/2023 Scheduled Procedures Name Priority Associated Diagnoses Date/Ti [...] D LEVEL ONCE IN A LIFETIME-USE SMARTSET# [id number] Completed 10/16/2021, 12/27/2018 Alpha-1 Antitrypsin Discontinued GARDASIL-HPV [...] this encounter Medical Devices Implanted Type Area Evaporator Operator Device Identifier Shelf Expiration Date Model / Serial / Lot Stent Graft Icast [id number] - [id number] - [id number] Implanted:Qty : 1 on 04/14/2022 [place] [facility] [place] Mesenteric Artery GETINGE : VITOR [id number] 02/21/2023 [id number] / [id number] / [id number] Description:implanted in SMA Stent [place] 3.0x15 Rx - [id number] Implanted:Qty : 1 on 11/12/2022 [place] Patrice Jose [place] [facility] [place] [employer] : VASCULAR [id number] 11/28/2023 [id number] / / [id number] 2 documented as of this encounter Visit Diagnoses Diagnosis Abnormal x-ray- Primary Other nonspecific (abnormal) findings on radiological and other examinations of body structure Pain of toe of left foot Pain in limb documented in this encounter [...] patient or by statute hierarchy) Care Teams Sales Coordinator Relationship Specialty Start Date End Date Courtney Restrepo MD [address] [place] [address] [place] [address] PCP - General Family Medicine 10/17/19 documented as of this encounter
--- OUTSIDE RECORDS SUMMARY | 2023-08-31 06:43 | External Medical Summary | Summary of Care ---
Author Name Unknown Organization [facility] Address [address] [place] [address] Phone [phone] Care Team Providers Care Space Controller Name Role Phone Courtney Restrepo MD Primary Care Prov ider Reason for Referral * Precert (Within 10 days (routine)) - Pending Review Specialty Diagnoses / Procedures Referred By Rosalia chandra Referred To Contact Radiology Diagnoses Abnormal x-ray Pain of toe of left foot Procedures MRI FOOT LEFT W CONTRAST Magdalene Benson MD [address] [place] [address] [place] [address] Referral ID Status Reason Start Date Expiration Date V isits Requested Visits Authorized [id number] Pending Review 05/06/2023 999 999 Reason for Visit * Reason Onset Date Comments Test Results 05/06/2023 Unexpected or In determinate Result Encounter Details Date Type Department Care Team (Late st Contact Info) Description 05/06/2023 Telephone Radiology [facility] [address] [place] [phone] Magdalene Benson MD [address] [place] [address] [place] [address] Test Results (Unexpected or Indeterminate ... Allergies [...] edema Nitroglycerin Hypotension 12/20/2018 Penicillins Nausea/vomiting 05/17/2007 [place] Hives 10/02/2018 Propoxyphene Edema face/lips/tongue,Hiv es 06/26/2009 [...] for Nausea. 20 Tablet 0 04/13/2023 Active HYDROcodone-Acetamin ophen 5-325 MG Oral TabletIndications:Ch ronic midline thoracic back pain Take 1 Tablet by mouth 2 times a day as needed for Pain, Severe. 14 Tablet 0 04/29/2023 Active Sucralfate 1 GM Oral Tablet (Carafate) [...] 7 days. 14 Capsule 0 05/06/2023 Active documented as of this [...] rinse after steroid. Test performed by Bibiana CUT PRESS OPERATOR CPFT [place] (myocardial infarction) 02/21/2019 Bilateral [...] osteoporosis 07/03/2018 Reactive depression 11/17/2017 Atherosclerosis of [place] co ronary artery of [place] heart without angina pectoris 07/22/2015 Overview: Single [...] rinse after steroid. Test performed by Bibiana CUT PRESS OPERATOR CPFT GENERAL OSTEOARTHROSIS BMI 32.0-32.9,adult Tobacco [...] ISCHEMIC HRT DIS NOS Coronary atherosclerosis of [place] coronary artery 11/24/2016 Tobacco abuse 11/17/2017 documented [...] Miscellaneous Notes * Addendum Note - Magdalene Benson MD [...] unexpected or indeterminate finding on Carlotta Khan ([id number]) and asks that you review the following [...] LUKE Love Client Service Rep Diagnostic Medicine [place] documented in this encounter Plan of Treatment Upcoming Encounters Date Type Department Care Team (Late st Contact Info) Description 05/09/2023 10:00 AM EST Office Visit Family [address] [phone] Eben Obregon CRNP [address] [place] [address] [place] [address] 05/24/2023 11:00 AM EDT Office Visit Family Medicine [address] [phone] Courtney Restrepo MD [address] [place] [address] [place] [address] 06/08/2023 11:00 AM EDT Office Visit Cardiology, [facility] [address] [facility] [place] [address] [facility]antz [facility]rera [facility] [address] [facility] [address] 10/05/2023 7:30 AM EDT Imaging Vascular Lab, [address], [address] [address] 10/05/2023 8:30 AM EDT Imaging Vascular Lab, [address], [address] [address] 10/05/2023 9:30 AM EDT Imaging Vascular Lab, [address], [address] [address] 10/05/2023 11:00 AM EDT Imaging Vascular Lab, [address], [address] [address] 10/10/2023 4:00 PM EDT Office Visit Nephrology, [address] [address] Charla Potter MD [address] [place] [address] 10/12/2023 1:30 PM EDT Office Visit Vascular Surgery, [address] [address] Nnamdi King MD [address] [place] [address] Scheduled Orders Name Type Priority Associated Diagnoses [...] 03/2017, 08/19/2014, Additional history exists COVID-19 Vaccine (4 - 2022- season) 2022 07/14/2021, 08/12/2020, 07/15/2020 Influenza Vaccine [...] D LEVEL ONCE IN A LIFETIME-USE SMARTSET# [id number] Completed 10/16/2021, 12/27/2018 Alpha-1 Antitrypsin Discontinued GARDASIL-HPV [...] this encounter Medical Devices Implanted Type Area Percussion Tuner Device Identifier Shelf Expiration Date Model / Serial / Lot Stent Graft Icast [id number] - [id number] - [id number] Implanted:Qty : 1 on 04/14/2022 by Nnamdi King MD at [place] [facility] [place] N/A: Mesenteric Artery GETINGE : YOELT [id number] 02/21/2023 [id number] / [id number] / [id number] Description:implanted in SMA Stent [place] 3.0x15 Rx - [id number] Implanted:Qty : 1 on 11/12/2022 by Patrice Jose MD at [place] [place] [facility] [place] [employer] : VASCULAR [id number] 11/28/2023 [id number] / / [id number] documented as of this encounter Visit [...] patient or by statute hierarchy) Care Teams Space Controller Relationship Specialty Start Date End Date Courtney Restrepo MD [address] [place] [address] [place] [address] PCP - General Family Medicine 10/17/19 documented as of this encounter
--- OUTSIDE RECORDS SUMMARY | 2023-08-31 06:43 | External Medical Summary | Summary of Care ---
Author Name Unknown Organization [facility] Address [address] [place] [address] Phone [phone] Care Team Providers Care Acetaldehyde Converter Operator Name Role Phone Courtney Restrepo MD Primary Care Prov ider Reason for Visit * Reason Comments Acute Left 4th toe pain Encounter Details Date Type Department Care Team (Late st Contact Info) Description 05/06/2023 10:20 AM EST Office Visit Family Medicine [address] [phone] Rosalio Benson MD [address] [place] [address] [place] [address] Pain of toe of left foot*; Cellulitis of toe of left foot Allergies Active Allergy Reactions Criticality Noted Date [...] edema Nitroglycerin Hypotension 12/20/2018 Penicillins Nausea/vomiting 05/17/2007 [place] Hives 10/02/2018 Propoxyphene Edema face/lips/tongue,Hiv es [...] of Breath. 100 mL 3 11/29/2022 Active MyQuoteApp Delica Lancets 30GIndications:Type 2 diabetes mellitus with hemoglobin A1c goal of less than 8.0% (HCC) Use to test glucose daily. E11.9 100 Each 5 11/29/2022 Active VigLinkTouch Verio w/Device KitIndications:Type 2 diabetes mellitus with [...] on chronic diastolic congestive heart failure ([facility]) Take 2 Tablets by [...] for Nausea. 20 Tablet 0 04/13/2023 Active HYDROcodone-Acetami nophen 5-325 MG Oral TabletIndications:C [...] days. 14 Capsule 0 05/06/2023 4 Active Dicyclomine HCl 10 MG Oral Capsule (Bentyl)Indications :Mesenteric ischemia, chronic (HCC) Take 1 Capsule by mouth 3 times a day as needed for Cramping. 90 Capsule 2 11/29/2022 4 Discontinu ed(Patient preference /discontin uation) documented as of this encounter (statuses as [...] rinse after steroid. Test performed by Bibiana COMPRESSED AIR PILE DRIVER OPERATOR CPFT Old CA (myocardial infarction) 02/21/2019 Bilateral [...] osteoporosis 07/03/2018 Reactive depression 11/17/2017 Atherosclerosis of [place] co ronary artery of [place] heart without angina pectoris 07/22/2015 Overview: Single [...] rinse after steroid. Test performed by Bibiana COMPRESSED AIR PILE DRIVER OPERATOR CPFT GENERAL OSTEOARTHROSIS BMI 32.0-32.9,adult Tobacco [...] ISCHEMIC HRT DIS NOS Coronary atherosclerosis of [place] coronary artery 11/24/2016 Tobacco abuse 11/17/2017 documented [...] Sign Reading Time Taken Comments Blood Pressure 109/56 05/06/2023 10:27 AM EST Pulse 105 05/06/2023 10:27 AM EST Temperature 35.9 C (96.6 F) 05/06/2023 10:[address] Respiratory Rate - - Oxygen Saturation 88% 05/06/2023 10:27 AM EST Inhaled Oxygen Concentration - - Weight 69.5 kg (153 lb 3.2 oz) 05/06/2023 10:27 AM EST Height - - Body Mass Index 27.57 02/11/2023 10:02 AM EST documented in this [...] as of this encounter Progress Notes * Rosalio Benson MD - 05/06/2023 10:39 AM EST Subjective: HPI: Carlotta Khan is a 72 year old female with hx of CAD s/p stent, DMII, HLD, COPD, PAD, CVA with L sided residual weakness, Pendleton esophagus, DJD, polyneuropathy, Depression/Anxiety, carotid diseases/p R CEA, SMA stenosis seen for Had a trauma 2 weeks ago - hit the toes on a gate - having pain - denied any fever - denied any drainage - per pt one of the toe looks erythematous - would like her hydrocodone dose increased Patient Active Problem List Diagnosis Code Moderate persistent asthma without complication J45.40 GENERAL OSTEOARTHROSIS M15.9 Cerebrovascular disease, arteriosclerotic, post-stroke I67.2, Z86.73 ADVANCE DIRECTIVE INFORMATION BMI 32.0-32.9,adult Z68.32 Tobacco use disorder F17.200 Hyperlipidemia with target LDL less than 70 E78.5 RSD upper limb G90.519 Type 2 diabetes mellitus with hemoglobin A1c goal of less than 8.0% ([facility]) E11.9 Controlled substance agreement signed Z79.899 Generalized anxiety disorder F41.1 Atherosclerosis of [place] coronary artery of [place] heart without angina pectoris I25.10 Reactive depression F32.9 Senile osteoporosis M81.0 PVD (peripheral vascular disease) ([facility]) I73.9 Iron deficiency anemia due to chronic blood loss D50.0 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 K22.70 Chronic superficial gastritis with bleeding K29.31 Gastrointestinal hemorrhage with melena K92.1 Lung nodules R91.8 Severe mitral regurgitation I34.0 Old CA (myocardial infarction) I25.2 Bilateral carotid artery stenosis I65.23 DM type 2 with diabetic peripheral neuropathy ([facility]) E11.42 Right hand tendonitis M77.8 Generalized arthritis M19.90 Hand arthritis M19.049 Centrilobular emphysema ([facility]) J43.2 Polyneuropathy in other diseases classified elsewhere ([facility]) G63 Superior mesenteric artery stenosis ([facility]) 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 ([facility]) I77.1 Major depressive disorder, recurrent, unspecified ([facility]) F33.9 Non-proliferative diabetic retinopathy, both eyes ([facility]) E11.3293 Recurrent major depressive disorder, in partial remission ([facility]) F33.41 Mesenteric ischemia, chronic ([facility]) K55.1 COPD, group D, by GOLD 2017 classification ([facility]) J44.9 Chronic ischemic heart disease I25.9 Advanced directives, counseling/discussion Z71.89 Type 2 diabetes mellitus with peripheral artery disease ([facility]) E11.51 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- dominant side ([facility]) I69.354 Wound drainage L24.A9 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 Hypertensive heart disease with acute on chronic diastolic congestive heart failure ([facility]) I11.0, I50.33 History of cardiac arrest Z86.74 Shock ([facility]) R57.9 PRAKASH (acute kidney injury) ([facility]) N17.9 Lactic acidosis E87.20 Transaminitis R74.01 Encephalopathy acute G93.40 Pathological fracture of sacral vertebra due to osteoporosis ([facility]) M80.08XA Other disorders of phosphorus metabolism E83.39 [...] as needed for Nausea. 20 Tablet 0 HYDROcodone-Acetaminophen 5-325 MG Oral Tablet Take 1 Tablet by mouth 2 times a day as needed for Pain, Severe. 14 Tablet 0 Sucralfate 1 GM Oral Tablet (Carafate) Take 1 Tablet by mouth 4 times a day before meals and at bedtime. 120 Tablet 0 Doxycycline Hyclate 100 MG Oral Capsule Take 1 Capsule by mouth in the morning and 1 Capsule beforebedtime. Do all this for 7 days. Take for 7 days. 14 Capsule 0 Dicyclomine HCl 10 MG Oral Capsule (Bentyl) Take 1 Capsule by mouth 3 times a day as needed for Cramping. (Patient not taking: Reported on 04/13/2023) 90 Capsule 2 Sodium Chloride 4 MEQ/ML Oral Solution [...] wks 08/20/2008 Cellulitis of right foot 07/02/2019 [facility] for severe pain, cellulitis right foot Cerebrovascular Dz, 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 Pt with hx of embolic stroke. L hemiplegia Chronic ischemic heart disease Contusion of hand, right 05/21/2016 Coronary atherosclerosis of [place] coronary artery DM type 2, goal A1c below 7 1993 after being on steroids for a while Fracture of three ribs on left side 02/25/2015 left 3,4,5 Generalized anxiety disorder Generalized osteoarthritis Hidradenitis had skin grafts under both arms by Dr Burrell Hyperlipidemia LDL goal < 70 Hypoxia 02/28/2015 [place], related to hypoventilation from rib fx pain Intracerebral hemorrhage (HCC) 07/03/2008 Need for hepatitis C screening test 08/08/2014 negative Obesity, BMI not known used to weigh 280 Old myocardial infarct x 2 with stent placement OTHER LATE EFFECTS CEREBROVASCULAR DISEASE 07/03/2008 RSD upper limb left arm Scabies 06/07/2017 Treated in [place] ER. Senile osteoporosis 07/03/2018 high risk Simple [...] performed by Nnamdi King MD at OR [facility] APPENDECTOMY W/OTHER PROCEDURE CARDIAC ANGIOPLASTY, PERCUTANEOUS, 1 ARTERY Bilateral 11/12/2022 PTCA, CARDIAC ANGIOPLASTY, PERCUTANEOUS, 1 ARTERY performed by Patrice Jose MD at [facility] COLONOSCOPY THRU STOMA, W/BIOPSY 01/2009 adenomatous polyp, f/u colonoscopy in 5 yrs COLONOSCOPY, DIAGNOSTIC (RECTUM) 07/13/2018 poor prep, repeat 6 mo/COLONOSCOPY FLEXIBLE PROXIMAL DIAGNOSTIC performed by Cassandra Hart MD at ENDOSCOPY [facility] COLONOSCOPY, DIAGNOSTIC (RECTUM) 09/27/2018 6 mm descending tubular adenoma, performed by Cassandra Hart MD at ENDOSCOPY [facility] COMPOSITE SKIN GRAFT b/l axilla, donor site b/l thighs CORONARY ANGIOGRAPHY W/LEFT HEART CATH N/A 11/10/2022 CORONARY ANGIOGRAPHY W/LEFT HEART CATH performed by Patrice Jose MD at [facility] CT ABDOMEN/PELVIS 09/28/[address] [...] performed by Cassandra Hart MD at ENDOSCOPY [facility] EGD, FLEXIBLE, DIAGNOSTIC 01/19/2019 gastric irritation on bx/[facility] EGD, FLEXIBLE, W/BIOPSY 09/27/2018 1 cm salmon colored mucosa suggestive of short segment Pendleton's, mild erythema antrum FEM/POP ARTERY REVASC W/ANGIOPLASTY Left 04/14/2022 FEM/POP ARTERY REVASC W/ANGIOPLASTY performed by Nnamdi King MD at OR [facility] FEM/POP ARTERY REVASC W/ANGIOPLASTY Right 09/23/2022 FEM/POP ARTERY REVASC W/ANGIOPLASTY performed by Nnamdi King MD at OR [facility] ILIAC ART. REVASCULARIZATION W/ANGIOPLASTY Left 09/23/2022 ILIAC ARTERY REVASCULARIZATION W/ANGIOPLASTY performed by [facility] CAROTID DUPLEX, BILATERAL 12/06/2012 Right carotid artery duplex examination indicates evidence of a less than 50% stenosis of the internal carotid artery. IR ARTERIOGRAM EXTREMITY BILATERAL 04/14/2022 ANGIOGRAPHY EXTREMITY BILATERAL performed by Nnamdi King MD at OR [facility] IR ARTERIOGRAM EXTREMITY BILATERAL N/A 09/23/2022 ANGIOGRAPHY EXTREMITY BILATERAL performed by Nnamdi King MD at OR [facility] IR STENT PLACEMENT, INITIAL ARTERY N/A 04/14/2022 NON LOWER EXTREMITY OR CAROTID STENT REVASCULARIZATION WITH RADIOLOGIC SUPERVISION AND INTERPRETATION performed by Nnamdi King MD at OR [facility] MAMMOGRAM SCREENING BILATERAL Bilateral 08/20/2014 almost entirely fat, category 1 normal MAMMOGRAM SCREENING BILATERAL Bilateral 05/12/2017 scattered fibroglandular densities category 1 normal MOBILE DXA 07/03/2018 Lumbar T -0.7, left femur T -2.9, high risk, treatment recommended NEG PRESSURE WOUND THERAPY DME </= 50 SQ CM N/A 11/04/2022 NEGATIVE PRESSURE WOUND THERAPY LESS THAN 50SQ CM performed by Nnamdi King MD at OR [facility] NEG PRESSURE WOUND THERAPY DME </= 50 SQ CM N/A 11/16/2022 NEGATIVE PRESSURE WOUND THERAPY LESS THAN 50SQ CM performed by Nnamdi King MD at OR [facility] NM HEPATOBILIARY SYSTEM WITH PHARMACOLOGIC INTERVENTION 10/18/2018 normal hepatic scan with normal GE ejection fraction PARTIAL AMPUTATION OF TOE Right 11/04/2022 AMPUTATION TOE INTERPHALANGEAL JOINT performed by Nnamdi King MD at OR [facility] PARTIAL HYSTERECTOMY PFT/BA BRONCHODILATOR N/A 03/11/2021 probably normal PFT with some airway reversibility PLACE INTRACORONARY STENT, FIRST VS [id number] REMOVE CATARACT, INSERT LENS PROSTH Left 01/27/2017 Dr Gunter REPAIR OF BLADDER NECK 1994 Dr Montesinos/needed redone due to infection SUBQ DEBRIDEMENT, FIRST 20 CM2 N/A 11/04/2022 DEBRIDEMENT SKIN AND SUBCUTANEOUS TISSUE performed by Nnamdi King MD at OR [facility] SUBQ DEBRIDEMENT, FIRST 20 CM2 N/A 11/16/2022 DEBRIDEMENT SKIN AND SUBCUTANEOUS TISSUE performed by Nnamdi King MD at OR [facility] SYNTH BYPASS, FEM-FEM 2004 fem-fem bypass, [place] THROMBOENDARECTOMY W/PATCH,NECK INCISION [id number] right CEA, [place] THROMBOENDARECTOMY W/PATCH,NECK INCISION 08/19/2008 right redo eversion carotid endarterectomy /Dr. Bynum TOOTH ROOT REMOVAL 01/23/2016 full mouth extraction, Dr Andres TRANSLMAURI BALLOON ANGIOPLASTY OPEN/PERC IMAGE 1ST ARTERY Right 04/14/2022 ANGIOPLASTY ARTERIAL (EXCEPT LOWER EXTREMITY) performed by Nnamdi King MD at OR [facility] US ABDOMEN COMPLETE 08/08/2018 normal VASC DUPLEX [...] and periorbital edema Nitroglycerin Hypotension Penicillins Nausea/vomiting [place] Hives Propoxyphene Edema face/lips/tongue and Hives Family History Problem Relation Age of Onset Cancer Sister Throat Diabetes Sister Diabetes Brother Stroke Brother Diabetes Grandmother (Maternal) Breast Cancer Niece Eye Problems No significant family history Denies family h/o AMD, RD, glaucoma, or blindness Heart Disorder No significant family history Hypertension No significant family history Thyroid Disorder No significant family history Social History Tobacco Use Smoking status: Every Day Current packs/day: 0.25 Average packs/day: 0.3 packs/day for 61.8 years (15.4 ttl pk-yrs) Types: Cigarettes Start date: 1962 Smokeless tobacco: Never Tobacco comments: 04/06/23 4 cigarettes daily, declined pamphlet Substance Use Topics Alcohol use: No Vaping/E-Cigarette Use Vaping/E-Cigarette Use Never User Vaping/E-Cigarette Substances Vaping/E-Cigarette Devices ROS: -Per HPI OBJECTIVE: BP 109/56 | Pulse 105 | Temp 35.9 C (96.6 F) | Wt 69.5 kg (153 lb 3.2 oz) | SpO2 88% | BMI 27.57 kg/m | BSA 1.75 m PHYSICAL EXAM: Vitals are reviewed L foot: - swelling and erythema of the 3rd toe - TTP - mild warmth to touch ASSESSMENT/PLAN: Explained to the pt that I do not prescribe narcotic for chronic pain and I do not think it is necessary to increase the dose frequency - due to trauma will get xray - doxy for possible early onset cellulitis Pain of toe of left foot (Primary) - XR FOOT 3 OR MORE VIEWS - Doxycycline Hyclate 100 MG Oral Capsule; Take 1 Capsule by mouth in the morning and 1 Capsule before bedtime. Do all this for 7 days. Take for 7 days. Cellulitis of toe of left foot - Doxycycline Hyclate 100 MG Oral Capsule; Take 1 Capsule by mouth in the morning and 1 Capsule before bedtime. Do all this for 7 days. Take for 7 days. I spent a total of 30-39 minutes (exact time 32 mins) on the date of service in preparation, delivery, and documentation of the care provided to Carlotta Khan excluding any time spent in the performance of separately billed services. Rosalio Benson MD Family medicine, [place] [phone] documented in this encounter Nursing Notes * Renetta Hall, MARY CARMEN - 05/06/2023 10:25 AM EST She is here for left fourth toe pain for about two weeks. She thinks it is infected. documented in this encounter Plan of Treatment Upcoming Encounters Date Type Department Care Team (Late st Contact Info) Description 05/09/2023 10:00 AM EST Office Visit Family [address] [phone] Eben Obregon CRNP [address] [place] [address] [place] [address] 05/24/2023 11:00 AM EDT Office Visit [address] [phone] Courtney Restrepo MD [address] [place] [address] [place] [address] 06/08/2023 11:00 AM EDT Office [address]iology, [address] [address] Frantz Herrera MD [facility] [place] [address] 10/05/2023 7:30 AM EDT Imaging Vascular Lab, [address] [address] 10/05/2023 8:30 AM EDT Imaging Vascular Lab, [address], [address] [place] [address] 10/05/2023 9:30 AM EDT Imaging Vascular Lab, [address] [place] [address] 10/05/2023 11:00 AM EDT Imaging Vascular Lab, [address], [address] [place] [address] 10/10/2023 4:00 PM EDT Office Visit Nephrology, [address] [place] [address] Charla Potter MD [address] [place] [address] 10/12/2023 1:30 PM EDT Office Visit Vascular Surgery, [facility] [address] [place] [address] Nnamdi King MD [address] [facility] [place] [address] Pending Results Name Type Priority Associated Diagnoses Date /Time XR FOOT 3 OR MORE VIEWS Medical Imaging STAT Pain of toe of left foot 05/06/2023 11:11 AM EST Scheduled Procedures Name Priority Associated Diagnoses Date/Ti [...] D LEVEL ONCE IN A LIFETIME-USE SMARTSET# 42828 Completed 10/16/2021, 12/27/2018 Alpha-1 Antitrypsin Discontinued GARDASIL-HPV [...] this encounter Medical Devices Implanted Type Area Digital Learning Platforms Manager Device Identifier Shelf Expiration Date Model / Serial / Lot Stent Graft Icast [id number] - [id number] - [id number] Implanted:Qty : 1 on 04/14/2022 by Nnamdi King MD at OR [facility] N/A: Mesenteric Artery GETINGE : MAQUET [id number] 02/21/2023 [id number] / [id number] / [id number] Description:implanted in SMA Stent Etters 3.0x15 Rx - [id number] Implanted:Qty : 1 on 11/12/2022 by Patrice Jose MD at CARD[facility] LABS [facility] MEDTRONIC : VASCULAR [id number] 11/28/2023 [id number] / / [id number] documented as of this encounter Visit Diagnoses Diagnosis Pain of toe of left foot- Primary Pain in limb Cellulitis of toe of left foot Cellulitis and abscess of toe, unspecified documented in this encounter Advance Directives [...] on File Name Relationship Healthcare Agent [facility] p Communication Diamond Braxton Adult Child Health Care Repr esentative (appointed verbally by patient or by statute hierarchy) Care Teams Acetaldehyde Converter Operator Relationship Specialty Start Date End Date Courtney Restrepo MD [address] [place] [address] [place] [address] PCP - General Family Medicine 10/17/19 documented as of this encounter
--- OUTSIDE RECORDS SUMMARY | 2023-08-31 06:43 | External Medical Summary | Summary of Care ---
Author Name Unknown Organization [facility] Address [address] [place] [address] Phone [phone] Care Team Providers Care Pipelayer Name Role Phone Courtney Restrepo MD Primary Care Prov ider Reason for Visit * Reason Onset Date Comments Test Results 05/06/2023 Unexpected or In determinate Result Encounter Details Date Type Department Care Team (Late st Contact Info) Description 05/06/2023 Telephone Radiology [address] [place] [address] Rosalio Benson MD [address] [place] [address] [place] [address] Test Results (Unexpected or Indeterminate ... Allergies [...] edema Nitroglycerin Hypotension 12/20/2018 Penicillins Nausea/vomiting 05/17/2007 [place] Hives 10/02/2018 Propoxyphene Edema face/lips/tongue,Hiv es 06/26/2009 [...] of Breath. 100 mL 3 11/29/2022 Active Prism Digital Delica Lancets 30GIndications:Type 2 diabetes mellitus with hemoglobin A1c goal of less than 8.0% (HCC) Use to test glucose daily. E11.9 100 Each 5 11/29/2022 Active Emos FuturesTouch Verio w/Device KitIndications:Type 2 diabetes mellitus with hemoglobin A1c goal of less than 8.0% (HCC) Use to test glucose daily. E11.9 1 Kit 0 11/29/2022 Active Trelegy Ellipta 100-62.5-25 MCG/ACT Aerosol Powder Breath ActivatedIndications :COPD, group C, by GOLD 2017 classification ([facility]) Inhale 1 puff as directed once a day 1 inhalation daily. Rinse mouth after every use. 60 Blister Dosing Unit 5 11/29/2022 Active Sodium Chloride 4 MEQ/ML Oral Solution Take by mouth. 0 Active NovoLOG FlexPen 100 UNIT/ML Subcutaneous Solution Pen-injector (insulin aspart)Indications:T ype 2 diabetes mellitus with hemoglobin A1c goal of less than 8.0% ([facility]) Units as per sliding scale 3 mL 3 02/04/2023 Active Insulin Glargine Solostar 100 UNIT/ML Subcutaneous Solution Pen-injector (Lantus SoloStar)Indications :Type 2 diabetes mellitus with hemoglobin A1c goal of less than 8.0% ([facility]) Inject 10 Units under the skin every [...] acute on chronic diastolic congestive heart failure ([facility]) Take 2 Tablets by mouth in the morning. 180 Tablet 3 02/07/2023 Active Align Extra Strength Oral Capsule Take 1 Capsule by mouth every evening. 0 Active OneTouch Verio In Vitro Strip (Glucose Blood)Indications:Ty pe 2 diabetes mellitus with hemoglobin A1c goal of less than 8.0% ([facility]) Test glucose once daily E11.9 100 Strip [...] days. 14 Capsule 0 05/06/2023 4 Active documented as of [...] rinse after steroid. Test performed by Bibiana INTELLECTUAL PROPERTY LEGAL ASSISTANT CPFT Old CT (myocardial infarction) 02/21/2019 Bilateral [...] osteoporosis 07/03/2018 Reactive depression 11/17/2017 Atherosclerosis of [place] co ronary artery of [place] heart without angina pectoris 07/22/2015 Overview: Single [...] rinse after steroid. Test performed by Bibiana INTELLECTUAL PROPERTY LEGAL ASSISTANT CPFT GENERAL OSTEOARTHROSIS BMI 32.0-32.9,adult Tobacco [...] ISCHEMIC HRT DIS NOS Coronary atherosclerosis of [place] coronary artery 11/24/2016 Tobacco abuse 11/17/2017 documented [...] encounter Miscellaneous Notes * Telephone Encounter - Randa Patterson TECH - 05/06/2023 12:09 PM EST Hello- The radiologist discovered an unexpected or indeterminate finding on Carlotta Khan ([id number]) and asks that you review the following [...] LUKE Love Client Service Rep Diagnostic Medicine [place] documented in this encounter Plan of Treatment Upcoming Encounters Date Type Department Care Team (Late st Contact Info) Description 05/09/2023 10:00 AM EST Office Visit [address] [phone] Eben Obregon [address] [place] [address] 05/24/2023 11:00 AM EDT Office Visit Family Medicine [address] [place] [phone] Courtney Restrepo MD [address] [place] [address] [place] [address] 06/08/2023 11:00 AM EDT Office Visit Cardiology, [facility] [address] [facility] [place] [address] Frantz Herrera MD [address] [place], [place] [address] [address] 10/05/2023 7:30 AM EDT Imaging Vascular Lab, [address], [address] [place] [address] 10/05/2023 8:30 AM EDT Imaging Vascular Lab, [address], [address] [place] [address] 10/05/2023 9:30 AM EDT Imaging Vascular Lab, [address], [address] [place] [address] 10/05/2023 11:00 AM EDT Imaging Vascular Lab, [address], [address] [place] [address] 10/10/2023 4:00 PM EDT Office Visit Nephrology, [address] [place] [address] Charla Potter MD [address] [place] [address] [place] [address] 10/12/2023 1:30 PM EDT Office Visit Vascular Surgery, [facility] [address] [facility] [place] [address] Nnamdi King MD [address] [facility] [place] [address] Scheduled Procedures Name Priority Associated Diagnoses Date/Ti me ESOPHAGOGASTRODUODENOSCOPY ( EGD), FLEXIBLE, TRANSORAL, DIAGNOSTIC Recall Pendleton's esophagus Health Maintenance Due Date Last Done Comments DISCUSS TOBACCO CESSATION (REFER TO SMARTSET #[id number]) 1950 *ADVANCE DIRECTIVE NOT ON FILE 06/28/2020 [...] D LEVEL ONCE IN A LIFETIME-USE SMARTSET# [id number] Completed 10/16/2021, 12/27/2018 Alpha-1 Antitrypsin Discontinued GARDASIL-HPV [...] this encounter Medical Devices Implanted Type Area Web Site Admin Device Identifier Shelf Expiration Date Model / Serial / Lot Stent Graft Icast [id number] - [id number] - [id number] Implanted:Qty : 1 on 04/14/2022 by Nnamdi King MD at [facility] N/A: Mesenteric Artery GETINGE : MAQUET [id number] 02/21/2023 [id number] / [id number] / [id number] Description:implanted in SMA Stent Howie 3.0x15 Rx - [id number] Implanted:Qty : 1 on 11/12/2022 by Patrice Jose MD at [facility]S [facility] MEDTRONIC : VASCULAR [id number] 11/28/2023 [id number] / / [id number] documented as of this encounter Advance [...] patient or by statute hierarchy) Care Teams Pipelayer Relationship Specialty Start Date End Date Courtney Restrepo MD [address] [place] [address] [place] [address] PCP - General Family Medicine 10/17/19 documented as of this encounter
--- OUTSIDE RECORDS SUMMARY | 2023-08-31 06:44 | External Medical Summary | Summary of Care ---
Author Name Unknown Organization [facility] Address [address] [place] [address] Phone [phone] Care Team Providers Care Tank Processor Name Role Phone Courtney Restrepo MD Primary Care Prov ider Reason for Visit * Reason Onset Date Comments Appointment 04/20/2023 Encounter Details Date Type Department Care Team (Late st Contact Info) Description 04/20/2023 Telephone Family [address] [phone] Courtney Restrepo MD [address] [place] [address] [place] [address] Appointment Allergies Active Allergy Reactions Criticality Noted [...] edema Nitroglycerin Hypotension 12/20/2018 Penicillins Nausea/vomiting 05/17/2007 [place] Hives 10/02/2018 Propoxyphene Edema face/lips/tongue,Hiv es 06/26/2009 documented as of this encounter (statuses as of 04/27/2023) Medications Medication Sig Dispensed Refills Start Date [...] of Breath. 100 mL 3 11/29/2022 Active Dicyclomine HCl 10 MG Oral Capsule (Bentyl)Indications: Mesenteric ischemia, chronic (HCC) Take 1 Capsule by mouth 3 times a day as needed for Cramping. 90 Capsule 2 11/29/2022 Active Additional Information Patient not taking.Reported on 04/13/2023 OneTouch Apolinar Lancets 30GIndications:Type 2 diabetes mellitus [...] for Nausea. 20 Tablet 0 04/13/2023 Active documented as of this encounter (statuses as of 04/27/2023) Active Problems Problem Noted Date Diagnosed Date [...] rinse after steroid. Test performed by Bibiana CASINO INVESTIGATOR CPFT [place] (myocardial infarction) 02/21/2019 Bilateral [...] osteoporosis 07/03/2018 Reactive depression 11/17/2017 Atherosclerosis of [place] co ronary artery of [place] heart without angina pectoris 07/22/2015 Overview: Single [...] rinse after steroid. Test performed by Bibiana CASINO INVESTIGATOR CPFT GENERAL OSTEOARTHROSIS BMI 32.0-32.9,adult Tobacco use disorder Hyperlipidemia with target LDL less than 70 Overview: ICD-10 update of inactive term RSD upper limb Overview: left arm Generalized anxiety disorder documented as of this encounter (statuses as of 04/27/2023) Resolved Problems Problem Noted Date Diagnosed Date [...] ISCHEMIC HRT DIS NOS Coronary atherosclerosis of [place] coronary artery 11/24/2016 Tobacco abuse 11/17/2017 documented as of this encounter (statuses as of 04/27/2023) Immunizations Name Administration Dates Next Due COVID-19 [...] Date Smoking Tobacco: Every Day Cigarettes 0.3 50 Started: 1962 Smokeless Tobacco: Never Comments:04/06/23 4 [...] Telephone Encounter - Dunia Nieves RN - 04/27/2023 9:45 AM EST My G sent to patient, unable to leave message on phone * Telephone Encounter - Jose Enrique Guo LPN - 04/26/2023 5:01 PM EST I called both numbers; unable to leave message on either. First is screening calls, second has no voicemail. If patient calls back please transfer to [phone]. * Telephone Encounter - Renetta Hall CMA - 04/25/2023 2:12 PM EST I called both numbers; unable to leave message on either. First is screening calls, second has no voicemail. If patient calls back please transfer to [phone]. * Telephone Encounter - Courtney Restrepo MD - 04/25/2023 10:04 AM EST Please let her know I want her to see Eben as scheduled. She does have appt with me in 4 weeks. My schedule is overbooked and there is nothing available. Eben can pull me in on that appt if needed. * Telephone Encounter - Crystal Hutson LPN - 04/20/2023 2:49 PM EST Patient is calling. She was suppose to have an appt. For [address] Courtney Morejon. She is not scheduled until May. Checked each day and there is nothing sooner. She does have an upcoming appt. With Eben SWANN on 05/09. Patient upset. Is it going to be okay to wait a month instead of 2 weeks? She wants a call back. documented in this encounter Plan of Treatment Upcoming Encounters Date Type Department Care Team (Late st Contact Info) Description 05/09/2023 10:00 AM EST Office Visit [address] [phone] Eben Obregon CRNP [address] [place] [address] [place] [address] 05/24/2023 11:00 AM EDT Office Visit [address] [place] [phone] Courtney Restrepo MD [address] [place] [address] [place] [address] 06/08/2023 11:00 AM EDT Office Visit Cardiology, [address] [place] [address] Frantz Herrera MD [address] [place], [place] [address] 10/05/2023 7:30 AM EDT Imaging Vascular Lab, [address] [place] [address] 10/05/2023 8:30 AM EDT Imaging Vascular Lab, [address] [place] [address] 10/05/2023 9:30 AM EDT Imaging Vascular Lab, [address] 132 [facility] [place] [address] 10/05/2023 11:00 AM EDT Imaging Vascular Lab, [address] 132 [facility] [place] [address] 10/10/2023 4:00 PM EDT Office Visit Nephrology, [facility] 200 [place] [address] Charla Potter MD [address] [place] [address] 10/12/2023 1:30 PM EDT Office Visit Vascular Surgery, [facility] 132 [facility] [place] [address] Nnamdi King MD 100 [place] [address] Scheduled Procedures Name Priority Associated Diagnoses Date/Ti me ESOPHAGOGASTRODUODENOSCOPY ( EGD), FLEXIBLE, TRANSORAL, DIAGNOSTIC Recall Pendleton's esophagus Health Maintenance Due Date Last Done Comments DISCUSS TOBACCO CESSATION (REFER TO SMARTSET #7558) 1950 Hepatitis B (1 of 3 - Risk 3-dose series) 2009 *ADVANCE DIRECTIVE NOT ON FILE 06/28/2020 Pendleton's [...] D LEVEL ONCE IN A LIFETIME-USE SMARTSET# [id number] Completed 10/16/2021, 12/27/2018 Alpha-1 Antitrypsin Discontinued GARDASIL-HPV IMMUNIZATION SERIES Aged Out No longer eligible based on patient's age to complete this topic MENINGOCOCCAL (MENACTRA/MENVEO) Aged Out No longer eligible based on patient's age to complete this topic Zoster Vaccines Discontinued documented as of this encounter Medical Devices Implanted Type Area Commercial Insulator Device Identifier Shelf Expiration Date Model / Serial / Lot Stent Graft Icast [id number] - [id number] - [id number] Implanted:Qty : 1 on 04/14/2022 by Nnamdi King MD at OR [facility] N/A: Mesenteric Artery GETINGE : VITOR [id number] 02/21/2023 [id number] / [id number] / [id number] Description:implanted in SMA Stent Howie 3.0x15 Rx - [id number] Implanted:Qty : 1 on 11/12/2022 by Patrice Jose MD at CARDIAC LABS [facility] [employer] : VASCULAR [id number] 11/28/2023 [id number] / / [id number] documented as of this encounter Advance [...] patient or by statute hierarchy) Care Teams Tank Processor Relationship Specialty Start Date End Date Courtney Restrepo MD [address] [place] [address] [place] [id number] PCP - General Family Medicine 10/17/19 documented as of this encounter
--- OUTSIDE RECORDS SUMMARY | 2023-08-31 06:44 | External Medical Summary | Summary of Care ---
Author Name Unknown Organization [facility] Address [address] [place] [address] Phone [phone] Care Team Providers Care Carpet Yarn Winder Operator Name Role Phone Courtney Restrepo MD Primary Care Prov ider Encounter Details Date Type Department Care Team (Late Contact Info) Description 01/24/2023 Telephone [facility] General Internal Medicine [address] [place] [address] EdeKiko MD [address] [facility] [place] [address] Allergies Active Allergy Reactions Criticality [...] edema Nitroglycerin Hypotension 12/20/2018 Penicillins Nausea/vomiting 05/17/2007 [place] Hives 10/02/2018 Propoxyphene Edema face/lips/tongue,Hiv es 06/26/2009 documented as of this encounter (statuses as of 04/25/2023) Medications Medication Sig Dispensed Refills Start Date [...] Additional Information Patient not taking.Reported on 04/13/2023 VeriWave Delica Lancets 30GIndications:Type 2 diabetes mellitus with [...] 60 Blister Dosing Unit 5 11/29/2022 Active documented as of this encounter (statuses as of 04/25/2023) Active Problems Problem Noted Date Diagnosed Date [...] rinse after steroid. Test performed by Bibiana PECK CPFT [place] (myocardial infarction) 02/21/2019 Bilateral [...] rinse after steroid. Test performed by Bibiana PROCESS MANUFACTURING ENGINEER CPFT GENERAL OSTEOARTHROSIS BMI 32.0-32.9,adult Tobacco use disorder Hyperlipidemia with target LDL less than 70 Overview: ICD-10 update of inactive term RSD upper limb Overview: left arm Generalized anxiety disorder documented as of this encounter (statuses as of 04/25/2023) Resolved Problems Problem Noted Date Diagnosed Date [...] as of this encounter (statuses as of 04/25/2023) Immunizations Name Administration Dates Next Due COVID-19 [...] Used Date Smoking Tobacco: Former Cigarettes 0.3 50 0 1961 - 11/04/2022 Smokeless Tobacco: Never [...] Description 05/09/2023 10:00 AM EST Office Visit [address] [phone] Eben Obregon CRNP [address] [place] [address] [place] [address] 05/24/2023 11:00 AM EDT Office Visit [address] [phone] Courtney Restrepo MD [address] [place] [address] [place] [address] 06/08/2023 11:00 AM EDT Office Visit Cardiology, [facility] 132 [facility] [place] [address] Frantz Herrera MD [address] [place] [address] 10/05/2023 7:30 AM EDT Imaging Vascular Lab, [facility] 2nd Floor, [place] 132 [facility] [place] [address] 10/05/2023 8:30 AM EDT Imaging Vascular Lab, [address] 132 [facility] [place] [address] 10/05/2023 9:30 AM EDT Imaging Vascular Lab, [address] 132 [facility] [place] [address] 10/05/2023 11:00 AM EDT Imaging Vascular Lab, [address] 132 [facility] [place] [address] 10/10/2023 4:00 PM EDT Office Visit Nephrology, [facility] 200 [facility] [place] [address] Charla Potter MD 400 [place] [address] 10/12/2023 1:30 PM EDT Office Visit Vascular Surgery, [facility] 132 [facility] [place] [address] Nnamdi King MD [address] [place] [address] Scheduled Procedures Name Priority Associated Diagnoses Date/Ti me ESOPHAGOGASTRODUODENOSCOPY ( EGD), FLEXIBLE, TRANSORAL, DIAGNOSTIC Recall Pendleton's esophagus Health Maintenance Due Date Last Done Comments DISCUSS TOBACCO CESSATION (REFER TO SMARTSET #3241) 1950 Hepatitis B (1 of 3 - [...] D LEVEL ONCE IN A LIFETIME-USE SMARTSET# [id number] Completed 10/16/2021, 12/27/2018 Alpha-1 Antitrypsin Discontinued GARDASIL-HPV IMMUNIZATION SERIES Aged Out No longer eligible based on patient's age to complete this topic MENINGOCOCCAL (MENACTRA/MENVEO) Aged Out No longer eligible based on patient's age to complete this topic Zoster Vaccines Discontinued documented as of this encounter Medical Devices Implanted Type Area Photographic Press Screwmaker Device Identifier Shelf Expiration Date Model / Serial / Lot Stent Graft Icast [id number] - [id number] - [id number] Implanted:Qty : 1 on 04/14/2022 by Nnamdi King MD at OR [facility] N/A: Mesenteric Artery GETINGE : VITOR [id number] 02/21/2023 [id number] / [id number] / [id number] Description:implanted in SMA Stent [place] 3.0x15 Rx - [id number] Implanted:Qty : 1 on 11/12/2022 by Patrice Jose MD at CARDIAC LABS [facility] [employer] : VASCULAR [id number] 11/28/2023 [id number] / / [id number] documented as of this encounter Advance [...] patient or by statute hierarchy) Care Teams Carpet Yarn Winder Operator Relationship Specialty Start Date End Date Courtney Restrepo MD [address] [place] [address] [place] [address] PCP - General Family Medicine 10/17/19 documented as of this encounter
--- OUTSIDE RECORDS SUMMARY | 2023-08-31 06:44 | External Medical Summary | Summary of Care ---
Author Name Unknown Organization [facility] Address [address] [place] [address] Phone [phone] Care Team Providers Care Asset Management Lead Name Role Phone Courtney Restrepo MD Primary Care Prov ider Encounter Details Date Type Department Care Team (Late Contact Info) Description 01/24/2023 Telephone [facility] General Internal Medicine [address] [place] [address] EdeKiko MD [address] [facility] [place] [address] Allergies Active Allergy Reactions Criticality [...] edema Nitroglycerin Hypotension 12/20/2018 Penicillins Nausea/vomiting 05/17/2007 [place] Hives 10/02/2018 Propoxyphene Edema face/lips/tongue,Hiv es 06/26/2009 [...] Additional Information Patient not taking.Reported on 04/13/2023 [employer] technology Delica Lancets 30GIndications:Type 2 diabetes mellitus with [...] Test performed by Bibiana PECK CPFT [place] (myocardial infarction) 02/21/2019 Bilateral carotid artery stenosis [...] osteoporosis 07/03/2018 Reactive depression 11/17/2017 Atherosclerosis of [place] co ronary artery of [place] heart without angina pectoris 07/22/2015 Overview: Single [...] rinse after steroid. Test performed by Bibiana COMPANY SECRETARY CPFT GENERAL OSTEOARTHROSIS BMI 32.0-32.9,adult Tobacco use [...] ISCHEMIC HRT DIS NOS Coronary atherosclerosis of [place] coronary artery 11/24/2016 Tobacco abuse 11/17/2017 documented [...] Description 05/09/2023 10:00 AM EST Office Visit [address] [phone] Eben Obregon CRNP [address] [place] [address] [place] [address] 05/24/2023 11:00 AM EDT Office Visit [address] [address] Courtney Restrepo MD [address] [place] [address] [place] [address] 06/08/2023 11:00 AM EDT Office Visit Cardiology, [facility] 132 [facility] [place] [address] Frantz Herrera MD [address] [place] [address] 10/05/2023 7:30 AM EDT Imaging Vascular Lab, [facility] 2nd Floor, [place] 132 [facility] [place] [address] 10/05/2023 8:30 AM EDT Imaging Vascular Lab, [address] 132 [facility] [place] [address] 10/05/2023 9:30 AM EDT Imaging Vascular Lab, [address] [facility] [place] [address] 10/05/2023 11:00 AM EDT Imaging Vascular Lab, [address] 132 [facility] [place] [address] 10/10/2023 4:00 PM EDT Office Visit Nephrology, [facility] 200 [place] [address] Charla Potter MD 400 [place] [address] 10/12/2023 1:30 PM EDT Office Visit Vascular Surgery, [facility] 132 [facility] [place] [address] Nnamdi King MD 100 [place] [address] Scheduled Procedures Name Priority Associated Diagnoses Date/Ti me ESOPHAGOGASTRODUODENOSCOPY ( EGD), FLEXIBLE, TRANSORAL, DIAGNOSTIC Recall Pendleton's esophagus Health Maintenance Due Date Last Done Comments DISCUSS TOBACCO CESSATION (REFER TO SMARTSET #7751) 1950 Hepatitis B (1 of 3 - [...] D LEVEL ONCE IN A LIFETIME-USE SMARTSET# [id number] Completed 10/16/2021, 12/27/2018 Alpha-1 Antitrypsin Discontinued GARDASIL-HPV IMMUNIZATION SERIES Aged Out No longer eligible based on patient's age to complete this topic MENINGOCOCCAL (MENACTRA/MENVEO) Aged Out No longer eligible based on patient's age to complete this topic Zoster Vaccines Discontinued documented as of this encounter Medical Devices Implanted Type Area Driver Device Identifier Shelf Expiration Date Model / Serial / Lot Stent Graft Icast [id number] - [id number] - [id number] Implanted:Qty : 1 on 04/14/2022 by Nnamdi King MD at OR [facility] N/A: Mesenteric Artery GETINGE : VITOR [id number] 02/21/2023 [id number] / [id number] / [id number] Description:implanted in SMA Stent [place] 3.0x15 Rx - [id number] Implanted:Qty : 1 on 11/12/2022 by Patrice Jose MD at [facility] LABS [facility] [employer] : VASCULAR [id number] 11/28/2023 [id number] / / [id number] 2 documented as of this encounter Advance [...] patient or by statute hierarchy) Care Teams Asset Management Lead Relationship Specialty Start Date End Date Courtney Restrepo MD [address] [place] [address] [place] [address] PCP - General Family Medicine 10/17/19 documented as of this encounter
--- OUTSIDE RECORDS SUMMARY | 2023-08-31 06:44 | External Medical Summary | Summary of Care ---
Author Name Unknown Organization [facility] Address [address] [place] [address] Phone [phone] Care Team Providers Care Keno Terminal Operator Name Role Phone Courtney Restrepo MD Primary Care Prov ider Reason for Visit * Reason Onset Date Comments Appointment 04/20/2023 Encounter Details Date Type Department Care Team (Late st Contact Info) Description 04/20/2023 Telephone Family [address] [phone] Courtney Restrepo MD [address] [place] [address] [place] [address] Appointment Allergies Active Allergy Reactions Criticality [...] edema Nitroglycerin Hypotension 12/20/2018 Penicillins Nausea/vomiting 05/17/2007 [place] Hives 10/02/2018 Propoxyphene Edema face/lips/tongue,Hiv es 06/26/2009 documented as of this encounter (statuses as of 04/26/2023) Medications Medication Sig Dispensed Refills Start Date [...] as of this encounter (statuses as of 04/26/2023) Active Problems Problem Noted Date Diagnosed Date [...] rinse after steroid. Test performed by Bibiana [facility] CPFT [place] (myocardial infarction) 02/21/2019 Bilateral carotid artery stenosis [...] osteoporosis 07/03/2018 Reactive depression 11/17/2017 Atherosclerosis of [place] co ronary artery of [place] heart without angina pectoris 07/22/2015 Overview: Single [...] rinse after steroid. Test performed by Bibiana HOME HEALTH AID CPFT GENERAL OSTEOARTHROSIS BMI 32.0-32.9,adult Tobacco use disorder Hyperlipidemia with target LDL less than 70 Overview: ICD-10 update of inactive term RSD upper limb Overview: left arm Generalized anxiety disorder documented as of this encounter (statuses as of 04/26/2023) Resolved Problems Problem Noted Date Diagnosed Date [...] ISCHEMIC HRT DIS NOS Coronary atherosclerosis of [place] coronary artery 11/24/2016 Tobacco abuse 11/17/2017 documented as of this encounter (statuses as of 04/26/2023) Immunizations Name Administration Dates Next Due COVID-19 [...] If patient calls back please transfer to [phone]. * Telephone Encounter - Renetta Hall CMA - 04/25/2023 2:12 PM EST I called both numbers; unable to leave message on either. First is screening calls, second has no voicemail. If patient calls back please transfer to [phone]. * Telephone Encounter - Courtney Restrepo MD [...] 05/09/2023 10:00 AM EST Office Visit Family [address] [address] Eben Obregon CRNP [address] [place] [address] [place] [address] 05/24/2023 11:00 AM EDT Office Visit [address] [place] [address] Courtney Restrepo MD [address] [place] [address] [place] [address] 06/08/2023 11:00 AM EDT Office [address]iology, [address] [address] Frantz Herrera MD [address] [place] [address] 10/05/2023 7:30 AM EDT Imaging Vascular Lab, [address] [place] [address] 10/05/2023 8:30 AM EDT Imaging Vascular Lab, [address] [place] [address] 10/05/2023 9:30 AM EDT Imaging Vascular Lab, [address] [place] [address] 10/05/2023 11:00 AM EDT [facility], [facility] [address] 10/10/2023 4:00 PM EDT Office Visit Nephrology, [facility] [address] [place] [address] Charla Potter MD [address] [place] [address] 10/12/2023 1:30 PM EDT Office Visit Vascular Surgery, [facility] 132 [facility] [place] [address] Nnamdi King MD 100 [address] [facility] [place] [address] Scheduled Procedures Name Priority Associated Diagnoses Date/Ti me ESOPHAGOGASTRODUODENOSCOPY ( EGD), FLEXIBLE, TRANSORAL, DIAGNOSTIC Recall Pendleton's esophagus Health Maintenance Due Date Last Done Comments DISCUSS TOBACCO CESSATION (REFER TO SMARTSET #8553) 1950 Hepatitis B (1 of 3 - [...] D LEVEL ONCE IN A LIFETIME-USE SMARTSET# [id number] Completed 10/16/2021, 12/27/2018 Alpha-1 Antitrypsin Discontinued GARDASIL-HPV IMMUNIZATION SERIES Aged Out No longer eligible based on patient's age to complete this topic MENINGOCOCCAL (MENACTRA/MENVEO) Aged Out No longer eligible based on patient's age to complete this topic Zoster Vaccines Discontinued documented as of this encounter Medical Devices Implanted Type Area Audio Narrator Device Identifier Shelf Expiration Date Model / Serial / Lot Stent Graft Icast [id number] - [id number] - [id number] Implanted:Qty : 1 on 04/14/2022 by Nnamdi King MD at OR [facility] N/A: Mesenteric Artery GETINGE : MAQUET [id number] 02/21/2023 [id number] / [id number] / [id number] Description:implanted in SMA Stent Howie 3.0x15 Rx - [id number] Implanted:Qty : 1 on 11/12/2022 by Patrice Jose MD at CARDIAC LABS [facility] [employer] : VASCULAR [id number] 11/28/2023 [id number] / / [id number] documented as of this encounter Advance [...] patient or by statute hierarchy) Care Teams Keno Terminal Operator Relationship Specialty Start Date End Date Courtney Restrepo MD [address] [place] [address] [place] [address] PCP - General Family Medicine 10/17/19 documented as of this encounter
--- OUTSIDE RECORDS SUMMARY | 2023-08-31 06:44 | External Medical Summary | Summary of Care ---
Author Name Unknown Organization [facility] Address [address] [place] [address] Phone [phone] Care Team Providers Care Pipe Coverer Helper Name Role Phone Courtney Restrepo MD Primary Care Prov ider Reason for Visit * Reason Onset Date Comments Medication Refill 04/28/2023 Encounter Details Date Type Department Care Team (Late st Contact Info) Description 04/28/[address] [phone] Courtney Restrepo MD [address] [place], [place] [address] [id number] Chronic midline thoracic back pain Allergies Active [...] edema Nitroglycerin Hypotension 12/20/2018 Penicillins Nausea/vomiting 05/17/2007 [place] Hives 10/02/2018 Propoxyphene Edema face/lips/tongue,Hiv es 06/26/2009 documented as of this encounter (statuses as of 04/29/2023) Medications Medication Sig Dispensed Refills Start Date [...] Additional Information Patient not taking.Reported on 04/13/2023 OneTolaura Brown 30GIndications:Type 2 diabetes mellitus with hemoglobin A1c goal of less than 8.0% (HCC) Use to test glucose daily. E11.9 100 Each 5 11/29/2022 Active OneTouch Verio w/Device KitIndications:Type 2 diabetes mellitus with hemoglobin A1c goal of less than 8.0% ([facility]) Use to test glucose daily. E11.9 1 Kit 0 11/29/2022 Active Trelegy Ellipta 100-62.5-25 MCG/ACT Aerosol Powder Breath ActivatedIndication s:COPD, group C, by GOLD 2017 classification ([facility] [...] 8.0% ([facility]) Units as per sliding scale 3 mL 3 02/04/2023 Active Insulin Glargine Solostar 100 UNIT/ML Subcutaneous Solution Pen-injector (Lantus SoloStar)Indication s:Type 2 diabetes mellitus with hemoglobin A1c goal of less than 8.0% ([facility]) Inject 10 Units under the skin [...] 8.0% ([facility]) Test glucose once daily E11.9 100 [...] at bedtime. 120 Tablet 0 04/29/2023 Active Sucralfate 1 GM Oral Tablet (Carafate) Take 1 Tablet by mouth 4 times a day before meals and at bedtime. 120 Tablet 0 01/23/2023 04/28/19 24 Discontinu ed(Refill) HYDROcodone-Acetami nophen 5-325 MG Oral TabletIndications:C hronic midline thoracic back pain Take 1 Tablet by mouth 2 times a day as needed for Pain, Severe for up to 7 days. 14 Tablet 0 04/11/2023 04/28/19 24 Discontinu ed(Refill) documented as of this encounter (statuses as of 04/29/2023) Active Problems Problem Noted Date Diagnosed Date [...] rinse after steroid. Test performed by Bibiana NARROW FABRICS WEAVER CPFT [place] (myocardial infarction) 02/21/2019 [...] osteoporosis 07/03/2018 Reactive depression 11/17/2017 Atherosclerosis of [place] co ronary artery of [place] heart without angina pectoris 07/22/2015 Overview: Single [...] rinse after steroid. Test performed by Bibiana NARROW FABRICS WEAVER CPFT GENERAL OSTEOARTHROSIS BMI 32.0-32.9,adult Tobacco use disorder Hyperlipidemia with target LDL less than 70 Overview: ICD-10 update of inactive term RSD upper limb Overview: left arm Generalized anxiety disorder documented as of this encounter (statuses as of 04/29/2023) Resolved Problems Problem Noted Date Diagnosed Date [...] ISCHEMIC HRT DIS NOS Coronary atherosclerosis of [place] coronary artery 11/24/2016 Tobacco abuse 11/17/2017 documented as of this encounter (statuses as of 04/29/2023) Immunizations Name Administration Dates Next Due COVID-19 [...] Date Smoking Tobacco: Every Day Cigarettes 0.3 61.7 Started: 1962 Smokeless Tobacco: Never Comments:04/06/23 4 [...] encounter Miscellaneous Notes * Telephone Encounter - Carlo Glynn DO - 04/29/2023 3:56 PM ESTSigned Prescriptions: Disp Refills HYDROcodone-Acetaminophen 5-325 MG Oral Ta*14 Tab*0 Sig: Take 1 Tablet by mouth 2 times a day as needed for Pain, Severe.Authorizing Provider: CARLO GLYNN Sucralfate 1 GM Oral Tablet (Carafate) 120 Ta*0 Sig: Take 1 Tablet by mouth 4 times a day before meals and at bedtime.Authorizing Provider: CARLO GLYNN * Telephone Encounter - Carlo Glynn DO - 04/29/2023 3:56 PM ESTSigned Prescriptions: Disp Refills HYDROcodone-Acetaminophen 5-325 MG Oral Ta*14 Tab*0 Sig: Take 1 Tablet by mouth 2 times a day as needed for Pain, Severe.Authorizing Provider: CARLO GLYNN Sucralfate 1 GM Oral Tablet (Carafate) 120 Ta*0 Sig: Take 1 Tablet by mouth 4 times a day before meals and at bedtime.Authorizing Provider: CARLO GLYNN * Telephone Encounter - Carlo Glynn DO - 04/29/2023 3:49 PM EST Filling for Dr. Jay since she is not in the office today I have reviewed the patients controlled substance dispensing history in the Prescription Drug Monitoring Program in compliance with the [facility] regulations before prescribing a controlled substance. Last Tox Screen Results: Results for orders placed or performed in [...] results can be found in Results Review. * Telephone Encounter - Adriana Pinto LPN - 04/29/2023 1:06 PM EST Pt calling back, she is down to one pain pill. * Telephone Encounter - Adriana Pinto LPN - 04/29/2023 9:27 AM EST Pt calling to check on refill request. * Telephone Encounter - Dee Martinez LPN - 04/28/2023 11:48 AM EST Patient stated that she went through all the requirements to get her Hydrocodone for more than 14 tabs at a time. Please update QTY if agreeable Pending Prescriptions: Disp Refills HYDROcodone-Acetaminophen 5-325 MG Oral T*14 Tab*0 Sig: Take 1 Tablet by mouth 2 times a day as needed for Pain, Severe. Sucralfate 1 GM Oral Tablet (Carafate) 120 Ta*0 Sig: Take 1 Tablet by mouth 4 times a day before meals and at bedtime. Last Visit: 04/13/2023 (in office), 11/29/2022 (telemedicine) Next Visit: 05/09/2023 Last date the medication was ordered: 04/11/2023, 01/23/2023 Patient Active Problem List Diagnosis Code Moderate persistent asthma without complication J45.40 GENERAL OSTEOARTHROSIS M15.9 Cerebrovascular disease, arteriosclerotic, post-stroke I67.2, Z86.73 ADVANCE DIRECTIVE INFORMATION BMI 32.0-32.9,adult Z68.32 Tobacco use disorder F17.200 Hyperlipidemia with target LDL less than 70 E78.5 RSD upper limb G90.519 Type 2 diabetes mellitus with hemoglobin A1c goal of less than 8.0% ([facility]) E11.9 Controlled substance agreement signed Z79.899 Generalized anxiety disorder F41.1 Atherosclerosis of [place] coronary artery of [place] heart without angina pectoris I25.10 Reactive depression F32.9 Senile osteoporosis M81.0 PVD (peripheral vascular disease) ([facility]) I73.9 Iron deficiency anemia due to chronic blood loss D50.0 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 K22.70 Chronic superficial gastritis with bleeding K29.31 Gastrointestinal hemorrhage with melena K92.1 Lung nodules R91.8 Severe mitral regurgitation I34.0 [place] (myocardial infarction) I25.2 Bilateral carotid artery stenosis I65.23 DM type 2 with diabetic peripheral neuropathy ([facility]) E11.42 Right hand tendonitis M77.8 Generalized arthritis M19.90 Hand arthritis M19.049 Centrilobular emphysema ([facility]) J43.2 Polyneuropathy in other diseases classified elsewhere ([facility]) G63 Superior mesenteric artery stenosis ([facility]) 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 ([facility]) I77.1 Major depressive disorder, recurrent, unspecified ([facility]) F33.9 Non-proliferative diabetic retinopathy, both eyes ([facility]) E11.3293 Recurrent major depressive disorder, in partial remission ([facility]) F33.41 Mesenteric ischemia, chronic ([facility]) K55.1 COPD, group D, by GOLD 2017 classification ([facility]) J44.9 Chronic ischemic heart disease I25.9 Advanced directives, counseling/discussion Z71.89 Type 2 diabetes mellitus with peripheral artery disease ([facility]) E11.51 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- dominant side ([facility]) I69.354 Wound drainage L24.A9 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 Hypertensive heart disease with acute on chronic diastolic congestive heart failure ([facility]) I11.0, I50.33 History of cardiac arrest Z86.74 Shock ([facility]) R57.9 PRAKASH (acute kidney injury) ([facility]) N17.9 Lactic acidosis E87.20 Transaminitis R74.01 Encephalopathy acute G93.40 Pathological fracture of sacral vertebra due to osteoporosis ([facility]) M80.08XA Other disorders of phosphorus metabolism E83.39 [...] Description 05/09/2023 10:00 AM EST Office Visit [address] [phone] Eben Obregon CRNP [address] [place] [address] [place] [address] 05/24/2023 11:00 AM EDT Office Visit Family [address] [place] [phone] Courtney Restrepo MD [address] [place] [address] [place] [address] 06/08/2023 11:00 AM EDT Office Visit Cardiology, [facility] [address] [address] Frantz Herrera MD [address] [place] [address] 10/05/2023 7:30 AM EDT Imaging Vascular Lab, [facility] 2nd [facility] [place] [address] [place] [address] 10/05/2023 8:30 AM EDT Imaging Vascular Lab, [facility] 2nd [facility] [address] [facility] [place] [address] 10/05/2023 9:30 AM EDT Imaging Vascular Lab, [address] 132 [facility] [place] [address] 10/05/2023 11:00 AM EDT Imaging Vascular Lab, [address] 132 [facility] [place] [address] 10/10/2023 4:00 PM EDT Office Visit Nephrology, [facility] [address] [place] [address] Charla Potter MD [address] [facility] [place] [address] 10/12/2023 1:30 PM EDT Office Visit Vascular Surgery, [facility] 132 [facility] [place] [address] Nnamdi King MD [address] [place] [address] Scheduled Procedures Name Priority Associated Diagnoses Date/Ti me ESOPHAGOGASTRODUODENOSCOPY ( EGD), FLEXIBLE, TRANSORAL, DIAGNOSTIC Recall Pendleton's esophagus Health Maintenance Due Date Last Done Comments DISCUSS TOBACCO CESSATION (REFER TO SMARTSET #7516) 1950 *ADVANCE DIRECTIVE NOT ON FILE 06/28/2020 [...] D LEVEL ONCE IN A LIFETIME-USE SMARTSET# 12220 Completed 10/16/2021, 12/27/2018 Alpha-1 Antitrypsin Discontinued GARDASIL-HPV [...] encounter Medical Devices Implanted Type Area Supervisor Grower Device Identifier Shelf Expiration Date Model / Serial / Lot Stent Graft Icast [id number] - [id number] - [id number] Implanted:Qty : 1 on 04/14/2022 by Nnamdi King [place] [facility] [place]: Mesenteric Artery GETINGE : YOELT [id number] 02/21/2023 [id number] / [id number] / [id number] Description:implanted in SMA Stent [place] 3.0x15 Rx - [id number] Implanted:Qty : 1 on 11/12/2022 by Patrice Jose MD at [facility] [employer] : VASCULAR [id number] 11/28/2023 [id number] / / [id number] documented as of this encounter Visit [...] patient or by statute hierarchy) Care Teams Pipe Coverer Helper Relationship Specialty Start Date End Date Courtney Restrepo MD [address] [place] [address] [place] [address] PCP - General Family Medicine 10/17/19 documented as of this encounter
--- OUTSIDE RECORDS SUMMARY | 2023-08-31 06:45 | External Medical Summary | Summary of Care ---
Author Name Unknown Organization [facility] Address [address] [place] [address] Phone [phone] Care Team Providers Care Blind Hanger Name Role Phone Courtney Restrepo MD Primary Care Prov ider Reason for Visit * Reason Onset Date Comments Medication Question 04/13/2023 Encounter Details Date Type Department Care Team (Late st Contact Info) Description 04/13/2023 Telephone Family [address] [phone] Courtney Restrepo MD [address] [place] [address] [place] [address] Medication Question Allergies Active Allergy Reactions Criticality [...] edema Nitroglycerin Hypotension 12/20/2018 Penicillins Nausea/vomiting 05/17/2007 [place] Hives 10/02/2018 Propoxyphene Edema face/lips/tongue,Hiv es 06/26/2009 documented as of this encounter (statuses as of 04/15/2023) Medications Medication Sig Dispensed Refills Start Date [...] Patient not taking.Reported on 04/13/2023 OneTouch Apolinar Lancgrant 30GIndications:Type 2 diabetes mellitus [...] with morning and evening meals. 0 Active HYDROcodone-Acetamin ophen 5-325 MG Oral TabletIndications:Ch ronic midline thoracic back pain Take 1 Tablet by mouth 2 times a day as needed for Pain, Severe for up to 7 days. 14 Tablet 0 04/11/2023 4 Active Lidocaine 4 % External Patch (Aspercreme) Place 1 Patch over 12 hours topically on the skin daily. 30 Patch 0 04/13/2023 Active Nitrofurantoin Monohyd Macro 100 MG Oral Capsule (Macrobid)Indication s:Acute cystitis without hematuria Take 1 Capsule by mouth in the morning and 1 Capsule before bedtime. Do all this for 7 days. With food until gone. 14 Capsule 0 04/13/2023 4 Active Ondansetron HCl 4 MG Oral Tablet (Zofran)Indications: Nausea Take 1 Tablet by mouth every 8 hours as needed for Nausea. 20 Tablet 0 04/13/2023 Active documented as of this encounter (statuses as of 04/15/2023) Active Problems Problem Noted Date Diagnosed Date [...] rinse after steroid. Test performed by Bibiana FRETTED STRING INSTRUMENT REPAIRER CPFT Old [place] (myocardial infarction) 02/21/2019 Bilateral [...] osteoporosis 07/03/2018 Reactive depression 11/17/2017 Atherosclerosis of [place] co ronary artery of [place] heart without angina pectoris 07/22/2015 Overview: Single [...] rinse after steroid. Test performed by Bibiana FRETTED STRING INSTRUMENT REPAIRER CPFT GENERAL OSTEOARTHROSIS BMI 32.0-32.9,adult Tobacco use disorder Hyperlipidemia with target LDL less than 70 Overview: ICD-10 update of inactive term RSD upper limb Overview: left arm Generalized anxiety disorder documented as of this encounter (statuses as of 04/15/2023) Resolved Problems Problem Noted Date Diagnosed Date [...] ISCHEMIC HRT DIS NOS Coronary atherosclerosis of [place] coronary artery 11/24/2016 Tobacco abuse 11/17/2017 documented as of this encounter (statuses as of 04/15/2023) Immunizations Name Administration Dates Next Due COVID-19 [...] Encounter - Jose Enrique Guo LPN - 04/15/2023 3:33 PM EST Patient is aware of Not below * Telephone Encounter - Courtney Restrepo MD - 04/13/2023 2:42 PM EST Yes * Telephone Encounter - Leeanne Bautista LPN - 04/13/2023 2:19 PM EST Patient was in for an appt today She states that PCP told her that she is dehydrated She wants to know if she should continue to take Spironolactone 25 mg, 2 tablets in the morning Pharm selected. Please advise. documented in this encounter Plan of Treatment Upcoming Encounters Date Type Department Care Team (Late st Contact Info) Description 05/24/2023 11:00 AM EDT Office Visit Family [address] [place] [phone] Courtney Restrepo MD [address] [place] [address] [place] [address] 06/08/2023 11:00 AM EDT Office Visit Cardiology, [facility] [address] [place] [address] Frantz Herrera MD [address] [place] [address] 10/05/2023 7:30 AM EDT Imaging Vascular Lab, [address] [place] [address] 10/05/2023 8:30 AM EDT Imaging Vascular Lab, [address], [address] [place] [address] 10/05/2023 10:00 AM EDT Imaging Vascular Lab, [address], [address] [place] [address] 10/05/2023 11:00 AM EDT Imaging Vascular Lab, [address] [place] [address] 10/10/2023 4:00 PM EDT Office Visit Nephrology, [address] [place] [address] Charla Potter MD [address] [place] [address] [place] [address] 10/12/2023 1:30 PM EDT Office Visit Vascular Surgery, [facility] 132 [facility] [place] [address] Nnamdi King MD [address] [place] [address] Scheduled Procedures Name Priority Associated Diagnoses Date/Ti me ESOPHAGOGASTRODUODENOSCOPY ( EGD), FLEXIBLE, TRANSORAL, DIAGNOSTIC Recall Pendleton's esophagus Health Maintenance Due Date Last Done Comments DISCUSS TOBACCO CESSATION (REFER TO SMARTSET #7037) 1950 Hepatitis B (1 of 3 - [...] Depression Screening 02/11/2024 02/10/2023 GFR 03/10/2024 03/10/2023, 1209/2022, 02/07/2023, Additional history exists Albumin/Creatinine Ratio 04/13/2024 024, 04/13/2022, 06/03/2021, Additional history exists DTaP,Tdap,and Td Vaccines (4 - Td or Tdap) 10/17/2032 10/17/2022, 07/14/2021 (Declined), 07/27/2010 Pneumococcal Vaccine: 65+ Years Completed 10/27/2015, 08/08/2014, 05/30/2008 VITAMIN D LEVEL ONCE IN A LIFETIME-USE SMARTSET# 57486 Completed 10/16/2021, 12/27/2018 Alpha-1 Antitrypsin Discontinued GARDASIL-HPV IMMUNIZATION SERIES Aged Out No longer eligible based on patient's age to complete this topic MENINGOCOCCAL (MENACTRA/MENVEO) Aged Out No longer eligible based on patient's age to complete this topic Zoster Vaccines Discontinued documented as of this encounter Medical Devices Implanted Type Area Manager Web Device Identifier Shelf Expiration Date Model / Serial / Lot Stent Graft Icast [id number] - [id number] - [id number] Implanted:Qty : 1 on 04/14/2022 by Nnamdi King MD at [place] [facility] [place] N/A: Mesenteric Artery GETINGE : MAQUET [id number] 02/21/2023 [id number] / [id number] / [id number] Description:implanted in SMA Stent Howie 3.0x15 Rx - [id number] Implanted:Qty : 1 on 11/12/2022 by Patrice Jose MD at [facility] [place] [employer] : VASCULAR [id number] 11/28/2023 [id number] / / [id number] documented as of this encounter Advance [...] patient or by statute hierarchy) Care Teams Blind Hanger Relationship Specialty Start Date End Date Courtney Restrepo MD [address] [place] [address] [place] [address] PCP - General Family Medicine 10/17/19 documented as of this encounter
--- OUTSIDE RECORDS SUMMARY | 2023-08-31 06:45 | External Medical Summary | Summary of Care ---
Author Name Unknown Organization [facility] Address [address] [place] [address] Phone [phone] Care Team Providers Care Bilingual Patient Support Caseworker Name Role Phone Courtney Restrepo MD Primary Care Prov ider Reason for Visit * Reason Onset Date Comments Advice 01/14/2023 Encounter Details Date Type Department Care Team (Late st Contact Info) Description 01/14/2023 Telephone Family [address] [phone] Courtney Restrepo MD [address] [place] [address] [place] [address] Advice Allergies Active Allergy Reactions Criticality [...] edema Nitroglycerin Hypotension 12/20/2018 Penicillins Nausea/vomiting 05/17/2007 [place] Hives 10/02/2018 Propoxyphene Edema face/lips/tongue,Hiv es 06/26/2009 [...] goal of less than 8.0% ([facility]) Use to test glucose daily. E11.9 100 Each 5 11/29/2022 Active OneTouch Verio w/Device KitIndications:Type 2 diabetes mellitus with hemoglobin A1c goal of less than 8.0% ([facility]) Use to test glucose daily. E11.9 1 Kit 0 11/29/2022 Active Trelegy Ellipta 100-62.5-25 MCG/ACT Aerosol Powder Breath ActivatedIndications :COPD, group C, by GOLD 2017 classification ([facility]) Inhale 1 puff as directed once [...] rinse after steroid. Test performed by Bibiana STEEL RULE DIE MAKER CPFT [place] (myocardial infarction) 02/21/2019 Bilateral carotid artery stenosis [...] rinse after steroid. Test performed by Bibiana STEEL RULE DIE MAKER CPFT GENERAL OSTEOARTHROSIS BMI 32.0-32.9,adult Tobacco [...] (FluLaval or Fluzone) 12/01/2017 Seasonal Influenza, Quadriva lent, No Preserve, IM [...] encounter Miscellaneous Notes * Telephone Encounter - Crystal Hutson LPN - 01/14/2023 11:37 AM EDT Debbi calling from [facility] Nurses. They said the patient was discharged from [facility] on the . They can't find her or get hold of her. Informed she is currently admitted in advanced acute care medical/transplant unit, [facility], 3 rd floor at [facility]. Verbalized understanding. documented in this encounter Plan of Treatment Upcoming Encounters Date Type Department Care Team (Late st Contact Info) Description 05/24/2023 11:00 AM EDT Office Visit Family Medicine [address] [place] [phone] Courtney Restrepo MD [address] [place] [address] [place] [address] 06/08/2023 11:00 AM EDT Office Visit Cardiology, [facility] 132 [facility] [place] [address] Frantz Herrera MD [address] [place] [address] 10/05/2023 7:30 AM EDT Imaging Vascular Lab, [facility] 2nd [facility] [place] [facility] [address] 10/05/2023 8:30 AM EDT Imaging Vascular Lab, [address], [address] [place] [address] 10/05/2023 10:00 AM EDT Imaging Vascular Lab, [address], [address] [place] [address] 10/05/2023 11:00 AM EDT Imaging Vascular Lab, [facility] 2nd [facility], [address] [place] [address] 10/10/2023 4:00 PM EDT Office Visit Nephrology, [address] [place] [address] Charla Potter MD [address] [place] [address] 10/12/2023 1:30 PM EDT Office Visit Vascular Surgery, [facility] 132 [facility] [place] [address] Nnamdi King MD [address] [place] [address] Scheduled Procedures Name Priority Associated Diagnoses Date/Ti me ESOPHAGOGASTRODUODENOSCOPY ( EGD), FLEXIBLE, TRANSORAL, DIAGNOSTIC Recall Pendleton's esophagus Health Maintenance Due Date Last Done Comments DISCUSS TOBACCO CESSATION (REFER TO SMARTSET #3291) 1950 Hepatitis B (1 of 3 - [...] D LEVEL ONCE IN A LIFETIME-USE SMARTSET# 43929 Completed 10/16/2021, 12/27/2018 Alpha-1 Antitrypsin Discontinued GARDASIL-HPV IMMUNIZATION SERIES Aged Out No longer eligible based on patient's age to complete this topic MENINGOCOCCAL (MENACTRA/MENVEO) Aged Out No longer eligible based on patient's age to complete this topic Zoster Vaccines Discontinued documented as of this encounter Medical Devices Implanted Type Area Feather Curling Machine Operator Device Identifier Shelf Expiration Date Model / Serial / Lot Stent Graft Icast [id number] - [id number] - [id number] Implanted:Qty : 1 on 04/14/2022 by Nnamdi King MD at [place] [facility] [place] N/A: Mesenteric Artery GETINGE : VITOR [id number] 02/21/2023 [id number] / [id number] / [id number] Description:implanted in SMA Stent Howie 3.0x15 Rx - [id number] Implanted:Qty : 1 on 11/12/2022 by Patrice Jose MD at [facility] [place] [employer] : VASCULAR [id number] 11/28/2023 [id number] / / [id number] documented as of this encounter Advance [...] patient or by statute hierarchy) Care Teams Bilingual Patient Support Caseworker Relationship Specialty Start Date End Date Courtney Restrepo MD [address] [place] [address] [place] [id number] PCP - General Family Medicine 10/17/19 documented as of this encounter
--- OUTSIDE RECORDS SUMMARY | 2023-08-31 06:45 | External Medical Summary | Summary of Care ---
Author Name Unknown Organization [facility] Address [address] [place] [address] Phone [phone] Care Team Providers Care Surveying Teacher Name Role Phone Courtney Restrepo MD Primary Care Prov ider Reason for Visit * Reason Onset Date Comments Hospital Follow-Up 01/23/2023 Encounter Details Date Type Department Care Team (Late st Contact Info) Description 01/23/2023 Telephone Nephrology, [place] [address] [place] [address] Services, [facility] [address] [place] [address] Hospital Follow-Up Allergies Active Allergy Reactions Criticality Noted Date [...] edema Nitroglycerin Hypotension 12/20/2018 Penicillins Nausea/vomiting 05/17/2007 [place] Hives 10/02/2018 Propoxyphene Edema face/lips/tongue,Hiv es 06/26/2009 documented as of this encounter (statuses as of 04/24/2023) Medications Medication Sig Dispensed Refills Start Date [...] Additional Information Patient not taking.Reported on 04/13/2023 [place] Apolinar Lancets 30GIndications:Type 2 diabetes mellitus with hemoglobin A1c goal of less than 8.0% (HCC) Use to test glucose daily. E11.9 100 Each 5 11/29/2022 Active [place] Verio w/Device KitIndications:Type 2 diabetes mellitus with [...] as of this encounter (statuses as of 04/24/2023) Active Problems Problem Noted Date Diagnosed Date [...] rinse after steroid. Test performed by Bibiana FACER OPERATOR CPFT [place] (myocardial infarction) 02/21/2019 Bilateral [...] osteoporosis 07/03/2018 Reactive depression 11/17/2017 Atherosclerosis of [place] co ronary artery of [place] heart without angina pectoris 07/22/2015 Overview: Single [...] rinse after steroid. Test performed by Bibiana FACER OPERATOR CPFT GENERAL OSTEOARTHROSIS BMI 32.0-32.9,adult Tobacco use disorder Hyperlipidemia with target LDL less than 70 Overview: ICD-10 update of inactive term RSD upper limb Overview: left arm Generalized anxiety disorder documented as of this encounter (statuses as of 04/24/2023) Resolved Problems Problem Noted Date Diagnosed Date [...] ISCHEMIC HRT DIS NOS Coronary atherosclerosis of [place] coronary artery 11/24/2016 Tobacco abuse 11/17/2017 documented as of this encounter (statuses as of 04/24/2023) Immunizations Name Administration Dates Next Due COVID-19 [...] Miscellaneous Notes * Telephone Encounter - Deanne Burgos OSA - 01/23/2023 1:11 PM EST Lvm to schedule h/d amy documented in this encounter Plan of Treatment Upcoming Encounters Date Type Department Care Team (Late st Contact Info) Description 05/09/2023 10:00 AM EST Office Visit [address] [phone] Eben Obregon CRNP [address] [place] [address] [place] [address] 05/24/2023 11:00 AM EDT Office Visit Family [address] [phone] Courtney Restrepo MD [address] [place] [address] [place] [address] 06/08/2023 11:00 AM EDT Office Visit Cardiology, [facility] [address] [place] [address] Frantz Herrera MD [address] [place] [address] 10/05/2023 7:30 AM EDT Imaging Vascular Lab, [address], [address] [place] [address] 10/05/2023 8:30 AM EDT Imaging Vascular Lab, [address], [address] [place] [address] 10/05/2023 10:00 AM EDT Imaging Vascular Lab, [address], [address] [place] [address] 10/05/2023 11:00 AM EDT Imaging Vascular Lab, [address], [address] [place] [address] 10/10/2023 4:00 PM EDT Office Visit Nephrology, [address] [place] [address] Charla Potter MD [address] [place] [address] 10/12/2023 1:30 PM EDT Office Visit Vascular Surgery, [address] [place] [address] Nnamdi King MD [address] [place] [address] Scheduled Procedures Name Priority Associated Diagnoses Date/Ti [...] D LEVEL ONCE IN A LIFETIME-USE SMARTSET# 23163 Completed 10/16/2021, 12/27/2018 Alpha-1 Antitrypsin Discontinued GARDASIL-HPV IMMUNIZATION SERIES Aged Out No longer eligible based on patient's age to complete this topic MENINGOCOCCAL (MENACTRA/MENVEO) Aged Out No longer eligible based on patient's age to complete this topic Zoster Vaccines Discontinued documented as of this encounter Medical Devices Implanted Type Area Order Desk Clerk Device Identifier Shelf Expiration Date Model / Serial / Lot Stent Graft Icast [id number] - [id number] - [id number] Implanted:Qty : 1 on 04/14/2022 by Nnamdi King MD at OR [facility] N/A: Mesenteric Artery GETINGE : VITOR [id number] 02/21/2023 [id number] / [id number] / [id number] Description:implanted in SMA Stent Howie 3.0x15 Rx - [id number] Implanted:Qty : 1 on 11/12/2022 by Patrice Jose MD at [facility] [employer] : VASCULAR [id number] 11/28/2023 [id number] / / [id number] documented as of this encounter Advance [...] patient or by statute hierarchy) Care Teams Surveying Teacher Relationship Specialty Start Date End Date Courtney Restrepo MD [address] [place] [address] [place] [address] PCP - General Family Medicine 10/17/19 documented as of this encounter
--- OUTSIDE RECORDS SUMMARY | 2023-08-31 06:45 | External Medical Summary | Summary of Care ---
Author Name Unknown Organization [facility] Address [address] [place] [address] Phone [phone] Care Team Providers Care Patternmaker Apprentice Wood Name Role Phone Courtney Restrepo MD Primary Care Prov ider Reason for Visit * Reason Onset Date Comments Medication Question 04/13/2023 Encounter Details Date Type Department Care Team (Late st Contact Info) Description 04/13/2023 Telephone Family [address] [phone] Courtney Restrepo MD [address] [place] [address] [place] [address] Medication Question Allergies Active Allergy Reactions [...] edema Nitroglycerin Hypotension 12/20/2018 Penicillins Nausea/vomiting 05/17/2007 [place] Hives 10/02/2018 Propoxyphene Edema face/lips/tongue,Hiv es 06/26/2009 documented as of this encounter (statuses as of 04/20/2023) Medications Medication Sig Dispensed Refills Start Date [...] than 8.0% ([facility]) Use to test glucose daily. E11.9 [...] than 8.0% ([facility]) Units as per sliding scale 3 mL 3 02/04/2023 Active Insulin Glargine Solostar 100 UNIT/ML Subcutaneous Solution Pen-injector (Lantus SoloStar)Indications :Type 2 diabetes mellitus with hemoglobin A1c goal of less than 8.0% ([facility]) Inject 10 Units under the skin [...] than 8.0% ([facility]) Test glucose once daily E11.9 100 [...] 7 days. 14 Tablet 0 04/11/2023 4 documented as of this encounter (statuses as of 04/20/2023) Active Problems Problem Noted Date Diagnosed Date [...] rinse after steroid. Test performed by Bibiana PROPOSAL ANALYST CPFT [place] (myocardial infarction) 02/21/2019 Bilateral [...] osteoporosis 07/03/2018 Reactive depression 11/17/2017 Atherosclerosis of [place] co ronary artery of [place] heart without angina pectoris 07/22/2015 Overview: Single [...] rinse after steroid. Test performed by Bibiana PROPOSAL ANALYST CPFT GENERAL OSTEOARTHROSIS BMI 32.0-32.9,adult Tobacco use disorder Hyperlipidemia with target LDL less than 70 Overview: ICD-10 update of inactive term RSD upper limb Overview: left arm Generalized anxiety disorder documented as of this encounter (statuses as of 04/20/2023) Resolved Problems Problem Noted Date Diagnosed Date [...] ISCHEMIC HRT DIS NOS Coronary atherosclerosis of [place] coronary artery 11/24/2016 Tobacco abuse 11/17/2017 documented as of this encounter (statuses as of 04/20/2023) Immunizations Name Administration Dates Next Due COVID-19 [...] 05/24/2023 11:00 AM EDT Office Visit Family [address] [place] [phone] Courtney Restrepo MD [address] [place] [address] [place] [address] 06/08/2023 11:00 AM EDT Office Visit Cardiology, [facility] [address] [place] [address] Frantz Herrera MD [address] [place] [address] 10/05/2023 7:30 AM EDT Imaging Vascular Lab, [address], [address] [place] [address] 10/05/2023 8:30 AM EDT Imaging Vascular Lab, [address], [address] [place] [address] 10/05/2023 10:00 AM EDT Imaging Vascular Lab, [address], [address] [place] [address] 10/05/2023 11:00 AM EDT Imaging Vascular Lab, [address] [place] [address] 10/10/2023 4:00 PM EDT Office Visit Nephrology, [address] [place] [address] Charla Potter MD [address] [place] [address] [place] [address] 10/12/2023 1:30 PM EDT Office Visit Vascular Surgery, [facility] [address] [facility] [place] [address] Nnamdi King MD [address] [place] [address] Scheduled Procedures Name Priority Associated Diagnoses Date/Ti me ESOPHAGOGASTRODUODENOSCOPY ( EGD), FLEXIBLE, TRANSORAL, DIAGNOSTIC Recall Pendleton's esophagus Health Maintenance Due Date Last Done Comments DISCUSS TOBACCO CESSATION (REFER TO SMARTSET #7605) 1950 Hepatitis B (1 of 3 - [...] D LEVEL ONCE IN A LIFETIME-USE SMARTSET# 19019 Completed 10/16/2021, 12/27/2018 Alpha-1 Antitrypsin Discontinued GARDASIL-HPV IMMUNIZATION SERIES Aged Out No longer eligible based on patient's age to complete this topic MENINGOCOCCAL (MENACTRA/MENVEO) Aged Out No longer eligible based on patient's age to complete this topic Zoster Vaccines Discontinued documented as of this encounter Medical Devices Implanted Type Area Automatic Cigar Wrapper Tender Device Identifier Shelf Expiration Date Model / Serial / Lot Stent Graft Icast [id number] - [id number] - [id number] Implanted:Qty : 1 on 04/14/2022 by Nnamdi King MD at [place] [facility] N/A: Mesenteric Artery GETINGE : MAQUET [id number] 02/21/2023 [id number] / [id number] / [id number] Description:implanted in SMA Stent [place] 3.0x15 Rx - [id number] Implanted:Qty : 1 on 11/12/2022 by Patrice Jose MD at [facility] [employer] : VASCULAR [id number] 11/28/2023 [id number] / / [id number] documented as of this encounter Advance [...] Agents on File Name Relationship Healthcare [facility] Communication [facility] Adult Child Health Care Repr esentative (appointed verbally by patient or by statute hierarchy) Care Teams Patternmaker Apprentice Wood Relationship Specialty Start Date End Date Courtney Restrepo MD [address] [place] [address] [place] [address] PCP - General Family Medicine 10/17/19 documented as of this encounter
--- OUTSIDE RECORDS SUMMARY | 2023-08-31 06:45 | External Medical Summary | Summary of Care ---
Author Name Unknown Organization [facility] Address [address] [place] [address] Phone [phone] Care Team Providers Care Trimmer Buffing Wheel Name Role Phone Courtney Restrepo MD Primary Care Prov ider Reason for Visit * Reason Comments Acute Encounter Details Date Type Department Care Team (Late st Contact Info) Description 04/13/2023 9:20 AM EST Office Visit Family Medicine [address] [phone] Courtney Restrepo MD [address] [place] [address] [phone] Acute cystitis without hematuria*; 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); Nausea Allergies Active Allergy Reactions Criticality Noted Date [...] as of this encounter (statuses as of 04/13/2023) Medications Medication Sig Dispensed Refills Start Date [...] of Breath. 100 mL 3 3 Active Dicyclomine HCl 10 MG Oral Capsule (Bentyl)Indication s:Mesenteric ischemia, chronic (HCC) Take 1 Capsule by mouth 3 times a day as needed for Cramping. 90 Capsule 2 3 Active Additional Information Patient not taking.Reported on 04/13/2023 OneTolaura Brown 30GIndications:Typ e 2 diabetes mellitus with hemoglobin A1c goal of less than 8.0% ([facility]) Use to test glucose daily. E11.9 100 Each 5 3 Active OneTouch Verio w/Device KitIndications:Typ e 2 diabetes mellitus with hemoglobin A1c goal of less than 8.0% ([facility]) Use to test glucose daily. E11.9 1 Kit 0 3 Active Trelegy Ellipta 100-62.5-25 MCG/ACT Aerosol Powder Breath ActivatedIndicatio ns:COPD, group C, by GOLD 2017 classification ([facility]) Inhale 1 puff as directed once a day 1 inhalation daily. Rinse mouth after every use. 60 Blister Dosing Unit 5 3 Active Sodium Chloride 4 MEQ/ML Oral Solution Take by mouth. 0 Active NovoLOG FlexPen 100 UNIT/ML Subcutaneous Solution Pen-injector (insulin aspart)Indications :Type 2 diabetes mellitus with hemoglobin A1c goal of less than 8.0% ([facility]) Units as per sliding scale 3 mL 3 3 Active Insulin Glargine Solostar 100 UNIT/ML Subcutaneous Solution Pen-injector (Lantus SoloStar)Indicatio ns:Type 2 diabetes mellitus with hemoglobin A1c goal of less than 8.0% ([facility]) Inject 10 Units under the [...] goal of less than 8.0% ([facility]) Test glucose once daily E11.9 100 Strip 5 3 Active Calcium Carbonate 600 MG Oral Tablet (Calcium 600) Take 1 Tablet by mouth 2 times a day with morning and evening meals. 0 Active HYDROcodone-Acetam inophen 5-325 MG Oral TabletIndications: Chronic midline thoracic back pain Take 1 Tablet by mouth 2 times a day as needed for Pain, Severe for up to 7 days. 14 Tablet 0 4 024 Active Lidocaine 4 % External Patch (Aspercreme) Place 1 Patch over 12 hours topically on the skin daily. 30 Patch 0 4 Active Nitrofurantoin Monohyd Macro 100 MG Oral Capsule (Macrobid)Indicati ons:Acute cystitis without hematuria Take 1 Capsule by mouth in the morning and 1 Capsule before bedtime. Do all this for 7 days. With food until gone. 14 Capsule 0 4 024 Active Ondansetron HCl 4 MG Oral Tablet (Zofran)Indication s:Nausea Take 1 Tablet by mouth every 8 hours as needed for Nausea. 20 Tablet 0 4 Active Lidocaine 4 % External Patch (Aspercreme) Place 1 Patch over 12 hours topically on the skin daily. 30 Patch 0 3 024 Discontinued(Re fill) oxyCODONE HCl 5 MG Oral Tablet (Oxy IR)Indications:Sup erior mesenteric artery stenosis (HCC) Take 1 Tablet by mouth every 6 hours as needed for Pain, Severe. 30 Tablet 0 3 024 Discontinued documented as of this encounter (statuses as of 04/13/2023) Active Problems Problem Noted Date Diagnosed Date [...] rinse after steroid. Test performed by Bibiana MANUSCRIPTS CURATOR CPFT Old ID (myocardial infarction) 02/21/2019 Bilateral [...] osteoporosis 07/03/2018 Reactive depression 11/17/2017 Atherosclerosis of [place] co ronary artery of [place] heart without angina pectoris 07/22/2015 Overview: [...] rinse after steroid. Test performed by Bibiana MANUSCRIPTS CURATOR CPFT GENERAL OSTEOARTHROSIS BMI 32.0-32.9,adult Tobacco use disorder Hyperlipidemia with target LDL less than 70 Overview: ICD-10 update of inactive term RSD upper limb Overview: left arm Generalized anxiety disorder documented as of this encounter (statuses as of 04/13/2023) Resolved Problems Problem Noted Date Diagnosed Date [...] ISCHEMIC HRT DIS NOS Coronary atherosclerosis of [place] coronary artery 11/24/2016 Tobacco abuse 11/17/2017 documented as of this encounter (statuses as of 04/13/2023) Immunizations Name Administration Dates Next Due COVID-19 [...] 0.3 50 Started: 1962 Smokeless Tobacco: Never Tobacco Cessation:Ready [...] Sign Reading Time Taken Comments Blood Pressure 118/76 04/13/2023 9:22 AM EST Pulse 60 04/13/2023 9:22 AM EST Temperature 36.1 C (97 F) 04/13/2023 9:22 AM EST Respiratory Rate - - Oxygen Saturation - - Inhaled Oxygen Concentration - - Weight 68.8 kg (151 lb 9.6 oz) 04/13/2023 9:22 A M EST Height - - Body Mass Index 27.29 02/11/2023 10:02 AM EST documented in this [...] as of this encounter Progress Notes * Courtney Restrepo MD - 04/13/2023 9:45 AM EST Subjective Carlotta Khan is a 72 year old female. Chief Complaint Patient presents with Acute HPI: Acute visit for bladder. 3 days of sx; frequency, foul smelling urine, back pain, bladder pain, some nausea and chills. 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 Has started smoking again 2/2 stress/ family conflict. Wants to quit. Smoking about 5 cigarettes per day. PMH: Patient Active Problem List Diagnosis Code Moderate persistent asthma without complication J45.40 GENERAL OSTEOARTHROSIS M15.9 Cerebrovascular disease, arteriosclerotic, post-stroke I67.2, Z86.73 ADVANCE DIRECTIVE INFORMATION BMI 32.0-32.9,adult Z68.32 Tobacco use disorder F17.200 Hyperlipidemia with target LDL less than 70 E78.5 RSD upper limb G90.519 Type 2 diabetes mellitus with hemoglobin A1c goal of less than 8.0% ([facility]) E11.9 Controlled substance agreement signed Z79.899 Generalized anxiety disorder F41.1 Atherosclerosis of [place] coronary artery of [place] heart without angina pectoris I25.10 Reactive depression F32.9 Senile osteoporosis M81.0 PVD (peripheral vascular disease) ([facility]) I73.9 Iron deficiency anemia due to chronic blood loss D50.0 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 K22.70 Chronic superficial gastritis with bleeding K29.31 Gastrointestinal hemorrhage with melena K92.1 Lung nodules R91.8 Severe mitral regurgitation I34.0 Old ID (myocardial infarction) I25.2 Bilateral carotid artery stenosis I65.23 DM type 2 with diabetic peripheral neuropathy ([facility]) E11.42 Right hand tendonitis M77.8 Generalized arthritis M19.90 Hand arthritis M19.049 Centrilobular emphysema ([facility]) J43.2 Polyneuropathy in other diseases classified elsewhere ([facility]) G63 Superior mesenteric artery stenosis ([facility]) 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 ([facility]) I77.1 Major depressive disorder, recurrent, unspecified ([facility]) F33.9 Non-proliferative diabetic retinopathy, both eyes ([facility]) E11.3293 Recurrent major depressive disorder, in partial remission ([facility]) F33.41 Mesenteric ischemia, chronic ([facility]) K55.1 COPD, group D, by GOLD 2017 classification ([facility]) J44.9 Chronic ischemic heart disease I25.9 Advanced directives, counseling/discussion Z71.89 Type 2 diabetes mellitus with peripheral artery disease ([facility]) E11.51 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- dominant side ([facility]) I69.354 Wound drainage L24.A9 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 Hypertensive heart disease with acute on chronic diastolic congestive heart failure ([facility]) I11.0, I50.33 History of cardiac arrest Z86.74 Shock ([facility]) R57.9 PRAKASH (acute kidney injury) ([facility]) N17.9 Lactic acidosis E87.20 Transaminitis R74.01 Encephalopathy acute G93.40 Pathological fracture of sacral vertebra due to osteoporosis ([facility]) M80.08XA Other disorders of phosphorus [...] 1 Capsule by mouth every evening. OneTouch VerM-SIX In Vitro Strip (Glucose Blood) Test glucose once daily E11.9 100 Strip 5 Calcium Carbonate 600 MG Oral Tablet (Calcium 600) Take 1 Tablet by mouth 2 times a day with morning and evening meals. HYDROcodone-Acetaminophen 5-325 MG Oral Tablet Take 1 Tablet by mouth 2 times a day as needed for Pain, Severe for up to 7 days. 14 Tablet 0 Lidocaine 4 % External Patch (Aspercreme) Place 1 Patch over 12 hours topically on the skin daily. 30 Patch 0 Nitrofurantoin Monohyd Macro 100 MG Oral Capsule (Macrobid) Take 1 Capsule by mouth in the morning and 1 Capsule before bedtime. Do all this for 7 days. With food until gone. 14 Capsule 0 Ondansetron HCl 4 MG Oral Tablet (Zofran) Take 1 Tablet by mouth every 8 hours as needed for Nausea. 20 Tablet 0 Dicyclomine HCl 10 MG Oral Capsule [...] and periorbital edema Nitroglycerin Hypotension Penicillins Nausea/vomiting Huntington Hives Propoxyphene Edema face/lips/tongue and Hives Objective BP 118/76 | Pulse 60 | Temp 36.1 C (97 F) (Tympanic) | Wt 68.8 kg (151 lb 9.6 oz) | BMI 27.29 kg/m | BSA 1.74 m ASSESSMENT/PLAN: Acute cystitis without hematuria (Primary) - URINALYSIS, POINT OF CARE (ENTER/EDIT) - CULTURE, URINE, QUANTITATIVE - Nitrofurantoin Monohyd Macro 100 MG Oral Capsule (Macrobid); Take 1 Capsule by mouth in the morning and 1 Capsule before bedtime. Do all this for 7 days. With food until gone. 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) - ALBUMIN / CREATININE RATIO, URINE; Future; Expected date: 04/13/2023 - HEMOGLOBIN A1C; Future; Expected date: 04/13/2023 - BASIC METABOLIC PANEL; Future; Expected date: 04/13/2023 - ALBUMIN / CREATININE RATIO, URINE Nausea - Ondansetron HCl 4 MG Oral Tablet (Zofran); Take 1 Tablet by mouth every 8 hours as needed for Nausea. Other orders - Lidocaine 4 % External Patch (Aspercreme); Place 1 Patch over 12 hours topically on the skin daily. Follow Up: Return in about 4 weeks (around 05/11/2023) for Return with Physician, Clinic Visit. | For: Return with Physician, Clinic Visit Treat for suspected cystitis today Counseled about tobacco Arrange close follo wup Courtney Jay MD documented in this encounter Nursing Notes * Jose Enrique Guo LPN - 04/13/2023 9:20 AM EST Chief Complaint Patient presents with Acute Pain with urination, chills yesterday , Nausea Duration- 3 days The patient has been properly identified by confirmation of name and date of . documented in this encounter Plan of Treatment Upcoming Encounters Date Type Department Care Team (Late st Contact Info) Description 05/24/2023 11:00 AM EDT Office Visit Family Medicine [address] [place] [phone] Courtney Restrepo MD [address] [place] [address] [place] [address] 06/08/2023 11:00 AM EDT Office Visit Cardiology, [address] [place] [address] Frantz Herrera MD [address] [place] [facility] [place] [address] 10/05/2023 7:30 AM EDT Imaging Vascular Lab, [address] [place] [address] 10/05/2023 8:30 AM EDT Imaging Vascular Lab, [address], [address] [place] [address] 10/05/2023 10:00 AM EDT Imaging Vascular Lab, [address], [address] [place] [address] 10/05/2023 11:00 AM EDT Imaging Vascular Lab, [address], [address] [place] [address] 10/10/2023 4:00 PM EDT Office Visit Nephrology, [facility] [address] [place] [address] Charla Potter MD [address] [place] [address] [place] [address] 10/12/2023 1:30 PM EDT Office Visit Vascular Surgery, [facility] [address] [facility] [place] [address] Nnamdi King MD [address] [place] [address] Scheduled Orders Name Type Priority Associated Diagnoses Orde r Schedule ALBUMIN / CREATININE RATIO, URINE Lab Routine 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) Expected: 04/13/2023, Expires: 04/13/2024 HEMOGLOBIN A1C Lab Routine 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) Expected: 04/13/2023 (Approximate), Expires: 04/12/2024 BASIC METABOLIC PANEL Lab Routine 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) Expected: 04/13/2023 (Approximate), Expires: 04/12/2024 CULTURE, URINE, QUANTITATIVE Lab Routine Acute cystitis without hematuria Ordered: 04/13/2023 Scheduled Procedures Name Priority Associated Diagnoses Date/Ti [...] 2022 11/17/2021, 11/30/2019, 12/27/2018, Additional history exists Albumin/Creatinine Ratio 04/13/2023 023, 06/03/2021, 12/07/2019, Additional history exists Diabetic Eye Exam 06/05/2023 [...] 03/10/2024 03/10/2023, 1209/2022, 02/07/2023, Additional history exists DTaP,Tdap,and Td Vaccines (3 - Td or Tdap) 07/15/2031 07/14/2021 (Declined), 07/27/2010 Pneumococcal Vaccine: 65+ Years Completed 10/27/2015, 08/08/2014, 05/30/2008 VITAMIN D LEVEL ONCE IN A LIFETIME-USE SMARTSET# [id number] Completed 10/16/2021, 12/27/2018 Alpha-1 Antitrypsin Discontinued GARDASIL-HPV IMMUNIZATION SERIES Aged Out No longer eligible based on patient's age to complete this topic MENINGOCOCCAL (MENACTRA/MENVEO) Aged Out No longer eligible based on patient's age to complete this topic Zoster Vaccines Discontinued documented as of this encounter Medical Devices Implanted Type Area Extension Supervisor Device Identifier Shelf Expiration Date Model / Serial / Lot Stent Graft Icast [id number] - [id number] - [id number] Implanted:Qty : 1 on 04/14/2022 by Nnamdi King MD at OR [facility] [place] N/A: Mesenteric Artery GETINGE : STEVEQUET [id number] 02/21/2023 [id number] / [id number] / [id number] Description:implanted in SMA Stent Dennis 3.0x15 Rx - [id number] Implanted:Qty : 1 on 11/12/2022 by Patrice Jose MD at CARDIAC LABS [facility] [place] MEDTRONIC : VASCULAR [id number] 11/28/2023 [id number] / / [id number] documented as of this encounter Procedures Procedure Name Priority Date/Time Associated Diagnosis Comments URINALYSIS, POINT OF CARE (ENTER/EDIT) Routine 04/13/2023 Acute cystitis without hematuria documented in this encounter Results * URINALYSIS, POINT OF CARE (ENTER/EDIT) (04/13/2023) Color, Urine Yellow Yellow or Light Yellow Clarity, Urine Clear Clear Glucose, Urine Negative Negative mg/dL Bilirubin, Urine Small Negative Ketone, Urine Trace Negative mg/dL Specific [place], Urine 1.025 1.003 - 1.030 Blood, Urine Negative Negative pH, Urine 5.5 5.0 - 7.5 units Protein, Urine Negative Negative mg/dL Urobilinogen, Urine 0.2 0.2 - 1.0 mg/dL Nitrite, Urine Negative Negative Esterase, Urine Trace Negative Urine 04/13/2023 Courtney Morejon MD LAB POINT OF CARE TEST ENTER/EDIT ORDERABLES documented in this encounter Visit Diagnoses Diagnosis Acute cystitis without hematuria- Primary Acute cystitis 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) Type II or unspecified type diabetes mellitus with peripheral circulatory disorders, not stated as uncontrolled Nausea Nausea alone documented in this encounter Advance Directives Latest [...] patient or by statute hierarchy) Care Teams Trimmer Buffing Wheel Relationship Specialty Start Date End Date Courtney Restrepo MD [address] [place] [address] [place] [address] PCP - General Family Medicine 10/17/19 documented as of this encounter
--- OUTSIDE RECORDS SUMMARY | 2023-08-31 06:46 | External Medical Summary | Summary of Care ---
Author Name Unknown Organization [facility] Address [address] [place] [address] Phone [phone] Care Team Providers Care Rnfa Name Role Phone Courtney Restrepo MD Primary Care Prov ider Reason for Visit * Reason Onset Date Comments Appointment 04/13/2023 Return in about 4 weeks (around 05/11/2023) for Return with Physician, Clinic Visit. Encounter Details Date Type Department Care Team (Late st Contact Info) Description 04/13/2023 Telephone Family Medicine [address] [phone] Courtney Restrepo MD [address] [place] [id number] Appointment (Return in about 4 weeks (arou... Allergies Active Allergy Reactions Criticality Noted Date [...] edema Nitroglycerin Hypotension 12/20/2018 Penicillins Nausea/vomiting 05/17/2007 Nicholson Hives 10/02/2018 Propoxyphene Edema face/lips/tongue,Hiv es 06/26/2009 [...] Information Patient not taking.Reported on 04/13/2023 OneTouch Delica Lancets 30GIndications:Type 2 diabetes mellitus [...] C, by GOLD 2017 classification ([facility]) Inhale 1 puff as directed [...] rinse after steroid. Test performed by Bibiana DEVELOPMENT PLANNER CPFT [place] (myocardial infarction) 02/21/2019 Bilateral [...] osteoporosis 07/03/2018 Reactive depression 11/17/2017 Atherosclerosis of [place] co ronary artery of [place] heart without angina pectoris 07/22/2015 Overview: Single [...] rinse after steroid. Test performed by Bibiana DEVELOPMENT PLANNER CPFT GENERAL OSTEOARTHROSIS BMI 32.0-32.9,adult Tobacco use [...] ISCHEMIC HRT DIS NOS Coronary atherosclerosis of [place] coronary artery 11/24/2016 Tobacco abuse 11/17/2017 documented [...] encounter Miscellaneous Notes * Telephone Encounter - Vicente Riley OSA - 04/13/2023 12:03 PM EST Thank you. I mailed appt to pt. * Telephone Encounter - Dunia Nieves RN - 04/13/2023 10:43 AM EST May 23 at 11 am * Telephone Encounter - Vicente Riley OSA - 04/13/2023 10:11 AM EST Nothing avail. Pt stated she is only to see Dr. CALL. Please schedule pt and I can contact her w/ date and time. documented in this encounter Plan of Treatment Upcoming Encounters Date Type Department Care Team (Late st Contact Info) Description 05/24/2023 11:00 AM EDT Office Visit Family Medicine [address] [place] [phone] Courtney Restrepo MD [address] [place] [address] [place] [address] 06/08/2023 11:00 AM EDT Office Visit Cardiology, [facility] [address] [facility] [place] [address] Frantz Herrera MD [address] [place] [address] 10/05/2023 7:30 AM EDT Imaging Vascular Lab, [address] [place] [address] 10/05/2023 8:30 AM EDT Imaging Vascular Lab, [address], [address] [place] [address] 10/05/2023 10:00 AM EDT Imaging Vascular Lab, [address], [address] [place] [address] 10/05/2023 11:00 AM EDT Imaging Vascular Lab, [address] [place] [address] 10/10/2023 4:00 PM EDT Office Visit Nephrology, [address] [place] [address] Charla Potter MD [address] [place] [address] [place] [address] 10/12/2023 1:30 PM EDT Office Visit Vascular Surgery, [facility] [address] [place] [address] Nnamdi King MD [address] [place] [address] Scheduled Procedures Name Priority Associated Diagnoses Date/Ti me ESOPHAGOGASTRODUODENOSCOPY ( EGD), FLEXIBLE, TRANSORAL, DIAGNOSTIC Recall Pendleton's esophagus Health Maintenance Due Date Last Done Comments DISCUSS TOBACCO CESSATION (REFER TO SMARTSET #5972) 1950 Hepatitis B (1 of 3 - [...] 03/10/2024 03/10/2023, 12/09/2022, 02/07/2023, Additional history exists DTaP,Tdap,and Td Vaccines (3 - Td or Tdap) 07/15/2031 07/14/2021 (Declined), 07/27/2010 Pneumococcal Vaccine: 65+ Years Completed 10/27/2015, 08/08/2014, 05/30/2008 VITAMIN D LEVEL ONCE IN A LIFETIME-USE SMARTSET# [id number] Completed 10/16/2021, 12/27/2018 Alpha-1 Antitrypsin Discontinued GARDASIL-HPV IMMUNIZATION SERIES Aged Out No longer eligible based on patient's age to complete this topic MENINGOCOCCAL (MENACTRA/MENVEO) Aged Out No longer eligible based on patient's age to complete this topic Zoster Vaccines Discontinued documented as of this encounter Medical Devices Implanted Type Area Selvage Machine Operator Device Identifier Shelf Expiration Date Model / Serial / Lot Stent Graft Icast [id number] - [id number] - [id number] Implanted:Qty : 1 on 04/14/2022 by Nnamdi King MD at OR [facility] [place] N/A: Mesenteric Artery GETINGE : [id number] 02/21/2023 [id number] / [id number] / [id number] Description:implanted in SMA Stent Howie 3.0x15 Rx - [id number] Implanted:Qty : 1 on 11/12/2022 by Patrice Jose MD at CARDIAC LABS [facility] [place] MED[employer] : VASCULAR [id number] 11/28/2023 [id number] / / [id number] documented as of this encounter Advance [...] Date End Date Courtney Restrepo MD [address] [place] [address] [place] [address] PCP - General Family Medicine 10/17/19 documented as of this encounter
--- OUTSIDE RECORDS SUMMARY | 2023-08-31 06:46 | External Medical Summary ---
Author Name Unknown Address Unknown Organization K01:[facility]AT[facility] [place] - [address] [place] [id number] Laboratory Report Ordering Provider Test Date Status NAYE ELLISON 04/13/2023 10:07:00 Final Observation Date Value Abnormality Reference (Units) Status Bacteria identified in Specimen by Culture 04/13/2023 10:07:00 No significant growth Final Test: Culture, Urine, Quanti tative
Specimen Source: Urine, Clean Catch
Specimen Type: Urine
Specimen Date: 04/13/2023 10:07 AM
Result Date: 04/15/2023 7:34 AM
Result Status: Final result
Resulting Lab: [facility] [place]
[address]
[place] [address]

CULTURE

No significant growth

null Performing Location LABORATORY [facility] – [place] - [address] [facility] [address]
--- OUTSIDE RECORDS SUMMARY | 2023-08-31 06:46 | External Medical Summary | Summary of Care ---
Author Name Unknown Organization [facility] Address [address] [place] [address] Phone [phone] Care Team Providers Care Isotope Hydrologist Name Role Phone Courtney Restrepo MD Primary Care Prov ider Reason for Referral * Medication Prior Authorization - Closed Specialty Diagnoses / Procedures Referred By Contac t Referred To Contact Diagnoses Chronic midline thoracic back pain Courtney Restrepo MD [address] [place] [address] [place] [address] Referral ID Status Reason Start Date Expiration Date Visits Re quested Visits Authorized [id number] Closed 999 999 Reason for Visit * Reason Onset Date Comments Advice 04/06/2023 Medication Problem 04/06/2023 Encounter Details Date Type Department Care Team (Late st Contact Info) Description 04/06/2023 Telephone Family [address] [place] [phone] Courtney Restrepo MD [address] [place] [address] [place] [address] Advice; Medication Problem Allergies Active Allergy Reactions Criticality Noted Date [...] edema Nitroglycerin Hypotension 12/20/2018 Penicillins Nausea/vomiting 05/17/2007 [place] Hives 10/02/2018 Propoxyphene Edema face/lips/tongue,Hiv es 06/26/2009 documented as of this encounter (statuses as of 04/11/2023) Medications Medication Sig Dispensed Refills Start Date [...] of Breath. 100 mL 3 11/29/2022 Active Lidocaine 4 % External Patch (Aspercreme) Place 1 Patch over 12 hours topically on the skin daily. 30 Patch 0 11/29/2022 Active Dicyclomine HCl 10 MG Oral Capsule (Bentyl)Indications :Mesenteric ischemia, chronic ([facility]) Take 1 Capsule by mouth 3 times a day as needed for Cramping. 90 Capsule 2 11/29/2022 Active OneTouch Delica Lancets 30GIndications:Type 2 diabetes mellitus with hemoglobin A1c goal of less than 8.0% ([facility]) Use to test glucose daily. E11.9 100 [...] 8.0% ([facility]) Inject 10 Units under the skin every [...] 8.0% ([facility]) Test glucose once daily E11.9 100 Strip 5 02/22/2023 Active oxyCODONE HCl 5 MG Oral Tablet (Oxy IR)Indications:Supe rior mesenteric artery stenosis (HCC) Take 1 Tablet by mouth every 6 hours as needed for Pain, Severe. 30 Tablet 0 03/04/2023 Active Calcium Carbonate 600 MG Oral Tablet (Calcium 600) Take 1 Tablet by mouth 2 times a day with morning and evening meals. 0 Active HYDROcodone-Acetami nophen 5-325 MG Oral TabletIndications:C hronic midline thoracic back pain Take 1 Tablet by mouth 2 times a day as needed for Pain, Severe for up to 7 days. 14 Tablet 0 04/11/2023 4 Active oxyCODONE-Acetamino phen 5-325 MG Oral Tablet (Percocet)Indicatio ns:Mesenteric ischemia, chronic (HCC) Take 1 Tablet by mouth 2 times a day as needed for Pain, Severe (Pain). 60 Tablet 0 04/06/2023 4 Discontinu ed(Medicat ion/Dose Changed) HYDROcodone-Acetami nophen 5-325 MG Oral TabletIndications:C hronic midline thoracic back pain Take 1 Tablet by mouth 2 times a day as needed for Pain, Severe. 60 Tablet 0 04/08/2023 4 Discontinu ed(Refill) documented as of this encounter (statuses as of 04/11/2023) Active Problems Problem Noted Date Diagnosed Date [...] rinse after steroid. Test performed by Bibiana PAN DEVULCANIZER CPFT [place] (myocardial infarction) 02/21/2019 Bilateral [...] osteoporosis 07/03/2018 Reactive depression 11/17/2017 Atherosclerosis of [place] co ronary artery of [place] heart without angina pectoris 07/22/2015 Overview: Single [...] rinse after steroid. Test performed by Bibiana PAN DEVULCANIZER CPFT GENERAL OSTEOARTHROSIS BMI 32.0-32.9,adult Tobacco use disorder Hyperlipidemia with target LDL less than 70 Overview: ICD-10 update of inactive term RSD upper limb Overview: left arm Generalized anxiety disorder documented as of this encounter (statuses as of 04/11/2023) Resolved Problems Problem Noted Date Diagnosed Date [...] ISCHEMIC HRT DIS NOS Coronary atherosclerosis of [place] coronary artery 11/24/2016 Tobacco abuse 11/17/2017 documented as of this encounter (statuses as of 04/11/2023) Immunizations Name Administration Dates Next Due COVID-19 [...] encounter Miscellaneous Notes * Addendum Note - Noa Nieves RN - 04/11/2023 2:08 PM ESTAddended by: NOA NIEVES on: 04/11/2023 02:08 PM Modules accepted: Orders * Telephone Encounter - Noa Nieves RN - 04/11/2023 2:06 PM EST Prior auth not needed per pharmacy below * Addendum Note - Courtney Restrepo MD - 04/11/2023 12:54 PM EST Addended by: COURTNEY MAHAJAN on: 04/11/2023 12:54 PM Modules accepted: Orders * Telephone Encounter - Courtney Restrepo MD - 04/11/2023 12:53 PM EST Thank you! Rx sent. * Addendum Note - Bakari Charles LPN - 04/11/2023 12:06 PM ESTAddended by: BAKARI CHARLES on: 04/11/2023 12:06 PM Modules accepted: Orders * Telephone Encounter - Bakari Charles LPN - 04/11/2023 11:56 AM EST Pt called and was made aware of message from PCP. States that they will not give her a short supply of Hydrocodone. Called [facility], spoke with James. States that he can bill insurance for 7 days worth with a co-pay of $0. Will need new script since 7 day supply is going to be dispensed- at that time a PA shouldn't be needed. Made pt aware and she is agreeable with the 7 day dispense. Med pended. Pharmacy selected. Please advise. * Telephone Encounter - Courtney Restrepo MD - 04/11/2023 11:41 AM EST She can either fill the percocet that was sent in last week, await for hydrocodone to be approved by her insurance, or pay out of pocket for the hydrocodone. * Telephone Encounter - Adriana Pinto LPN - 04/11/2023 11:25 AM EST Pt calling to check on prior auth. She is out of pain medication as of today. Please advise. * Telephone Encounter - Crystal Hutson LPN - 04/08/2023 3:34 PM EST Patient calling. Her call was lost. Informed the prior auth is needed. The pharmacy was already called and office informed. Verbalized understanding. * Telephone Encounter - Adriana Pinto LPN - 04/08/2023 3:24 PM EST Patient returned call. Informed of message. Pt indicates a prior auth needs completed. I called the pharm and was inform hydrocodone does need prior auth ID # [id number] Group # [id number] * Telephone Encounter - Leeanne Bautista LPN - 04/08/2023 3:17 PM EST Patient made aware * Telephone Encounter - Courtney Restrepo MD - 04/08/2023 2:13 PM EST Rx sent. Please let her know (she has called multiple times) * Telephone Encounter - Solange Duncan LPN - 04/08/2023 1:24 PM EST Received call from VIC line to office. See message below- Pt asking for Hydrocodone instead of Oxy. Message below states she did not machine operator picker the Oxy. She is not willing to go to the ER due to her pain or symptoms. * Telephone Encounter - Leeanne Bautista LPN - 04/08/2023 1:10 PM EST Patient and caregiver on phone Caregiver states that patients FBS 180 this morning 2 hours later BS 231 - took her insulin (Novolog 6 units) 1 hour later BS 259 Now her BS 348 Patient feels that her pain is causing her BS to go high She states that today her pain is worse than it has been today, its nerve pain in her whole entire body today She is feeling confused, states that she will forget what she is trying to do, feels dizzy, nervousand irritable She does not want to go to the hospital/ER She states that she is just about ready to call hospice to be done with this She states that she just needs her pain medication Called office, spoke to Solange - she will have one of the covering providers advise of message Patient aware and will await a call back * Telephone Encounter - Leeanne Bautista LPN - 04/08/2023 11:08 AM EST Patient states that the pharmacy was only going to give her a 7 day supply of: oxyCODONE-Acetaminophen 5-325 MG Oral Tablet (Percocet) She did not machine operator picker this script Does not feel that this was the med that helped her with her nerve pain She believes it was Hydrocodone 5-325 mg She would like to have this ordered Patient asked that message be sent ROLO because her pain is really bad today She states that it is too high to rate on a scale of 1-10 Script pended below Pharm selected. Please advise. * Telephone Encounter - Dee Martinez LPN - 04/06/2023 4:56 PM EST Patient calling in: She did not want Oxycodone-Acetaminophen 5-325mg She thought that she had asked for Hydrocodone-Acetaminophen 5-325mg. She stated that it is easier on her stomach. Please advise. Pharmacy selected. * Telephone Encounter - Courtney Restrepo MD - 04/06/2023 3:07 PM EST OK. New Rx sent. * Telephone Encounter - Dee Martinez LPN - 04/06/2023 11:22 AM EST Patient calling in asking to speak to Dr. Waldemar Morejon, advised that she is seeing patient's and I can assist her. she stated that her oxycodone 5 mg is not helping with her nerve pain. She cannot hardly use her left arm at all and she would like to be put back on the medication that she used previously as it worked better. Oxycodone-Acetaminophen 5-325 mg, pended medication if agreeable, please adjust script Please call patient back on mobile number [phone] documented in this encounter Plan of Treatment Upcoming Encounters Date Type Department Care Team (Late st Contact Info) Description 04/13/2023 9:20 AM EST Office Visit Family Medicine [address] [place] [phone] Courtney Restrepo MD [address] [place] [address] [place] [address] 06/08/2023 11:00 AM EDT Office Visit Cardiology, [address] [place] [address] Frantz Herrera MD [address] [place] [address] 10/05/2023 7:30 AM EDT Imaging Vascular Lab, [address], [address] [place] [address] 10/05/2023 8:30 AM EDT Imaging Vascular Lab, [address], [address] [place] [address] 10/05/2023 10:00 AM EDT Imaging Vascular Lab, [address] [place] [address] 10/05/2023 11:00 AM EDT Imaging Vascular Lab, [address] [place] [address] 10/10/2023 4:00 PM EDT Office Visit Nephrology, [address] [address] Charla Potter MD [address] [place] [address] 10/12/2023 1:30 PM EDT Office Visit Vascular Surgery, [address] [place] [address] Nnamdi King MD [address] [place] [address] Scheduled Procedures Name Priority Associated Diagnoses Date/Ti me ESOPHAGOGASTRODUODENOSCOPY ( EGD), FLEXIBLE, TRANSORAL, DIAGNOSTIC Recall Pendleton's esophagus Health Maintenance Due Date Last Done Comments DISCUSS TOBACCO CESSATION (REFER TO SMARTSET #329) 1950 Hepatitis B (1 of 3 - [...] D LEVEL ONCE IN A LIFETIME-USE SMARTSET# 48219 Completed 10/16/2021, 12/27/2018 Alpha-1 Antitrypsin Discontinued GARDASIL-HPV IMMUNIZATION SERIES Aged Out No longer eligible based on patient's age to complete this topic MENINGOCOCCAL (MENACTRA/MENVEO) Aged Out No longer eligible based on patient's age to complete this topic Zoster Vaccines Discontinued documented as of this encounter Medical Devices Implanted Type Area Cook Restaurant Device Identifier Shelf Expiration Date Model / Serial / Lot Stent Graft Icast [id number] - [id number] - [id number] Implanted:Qty : 1 on 04/14/2022 by [place]namdi [place] [facility] [place] Mesenteric Artery GETINGE : MAQUET [id number] 02/21/2023 [id number] / [id number] / [id number] Description:implanted in SMA Stent Howie 3.0x15 Rx - [id number] Implanted:Qty : 1 on 11/12/2022 by Patrice Jose MD at [place] [facility] [place] [employer] : VASCULAR [id number] 11/28/2023 [id number] / / [id number] documented as of this encounter Visit Diagnoses Diagnosis Mesenteric ischemia, chronic (HCC)- Primary Chronic vascular insufficiency of intestine Chronic midline thoracic back pain documented in [...] patient or by statute hierarchy) Care Teams Isotope Hydrologist Relationship Specialty Start Date End Date Courtney Restrepo MD [address] [place] [address] [place] [address] PCP - General Family Medicine 10/17/19 documented as of this encounter
--- OUTSIDE RECORDS SUMMARY | 2023-08-31 06:46 | External Medical Summary | Summary of Care ---
Author Name Unknown Organization [facility] Address [address] [place] [address] Phone [phone] Care Team Providers Care Certified Flex Endoscope Reprocessor Name Role Phone Courtney Restrepo MD Primary Care Prov ider Encounter Details Date Type Department Care Team (Late st Contact Info) Description 04/11/2023 Telephone Family Medicine [address] [phone] Courtney Restrepo MD [address] [place] [address] [place] [address] Allergies Active Allergy Reactions [...] edema Nitroglycerin Hypotension 12/20/2018 Penicillins Nausea/vomiting 05/17/2007 [place] Hives 10/02/2018 Propoxyphene Edema face/lips/tongue,Hiv es 06/26/2009 [...] less than 8.0% ([facility]) Use to test glucose daily. E11.9 100 Each 5 11/29/2022 Active OneTouch Verio w/Device KitIndications:Type 2 diabetes mellitus with hemoglobin A1c goal of less than 8.0% ([facility]) Use to test glucose daily. [...] oxyCODONE HCl 5 MG Oral Tablet (Oxy IR)Indications:Super ior mesenteric artery stenosis (HCC) Take 1 Tablet by mouth every 6 hours as needed for Pain, Severe. 30 Tablet 0 03/04/2023 Active oxyCODONE-Acetaminop hen 5-325 MG Oral Tablet (Percocet)Indication s:Mesenteric ischemia, chronic (HCC) Take 1 Tablet by mouth 2 times a day as needed for Pain, Severe (Pain). 60 Tablet 0 04/06/2023 Active Calcium Carbonate 600 MG Oral Tablet (Calcium 600) Take 1 Tablet by mouth 2 times a day with morning and evening meals. 0 Active HYDROcodone-Acetamin ophen 5-325 MG Oral TabletIndications:Ch ronic midline thoracic back pain Take 1 Tablet by mouth 2 times a day as needed for Pain, Severe for up to 7 days. 14 Tablet 0 04/11/2023 Active documented as of this encounter (statuses [...] rinse after steroid. Test performed by Bibiana MH TEACHER CPFT [place] (myocardial infarction) 02/21/2019 Bilateral carotid artery stenosis [...] rinse after steroid. Test performed by Bibiana MH TEACHER CPFT GENERAL OSTEOARTHROSIS BMI 32.0-32.9,adult Tobacco [...] Encounter - Courtney Restrepo MD - 04/11/2023 12:54 PM EST monomer recovery operator note: urine with strong odor. UA/c ordered. Please let patient know. documented in this encounter Plan of Treatment Upcoming Encounters Date Type Department Care Team (Late st Contact Info) Description 04/13/2023 9:20 AM EST Office Visit Family Medicine [address] [phone] Courtney Restrepo MD [address] [place] [address] [place] [address] 06/08/2023 11:00 AM EDT Office Visit Cardiology, [facility] [address] [facility] [place] [address] Frantz Herrera MD [address] [place] [address] 10/05/2023 7:30 AM EDT Imaging Vascular Lab, [address] [place] [address] 10/05/2023 8:30 AM EDT Imaging Vascular Lab, [address] [place] [address] 10/05/2023 10:00 AM EDT Imaging Vascular Lab, [address] [place] [address] 10/05/2023 11:00 AM EDT Imaging Vascular Lab, [address], [address] [place] [address] 10/10/2023 4:00 PM EDT Office Visit Nephrology, [address] [place] [address] Charla Potter MD [address] [place] [address] 10/12/2023 1:30 PM EDT Office Visit Vascular Surgery, [address] [place] [address] Nnamdi King MD [address] [place] [address] Scheduled Orders Name Type Priority Associated Diagnoses Orde r Schedule URINALYSIS, REFLEX TO CULTURE (NOT FOR NEUTROPENIC PATIENTS) Lab Routine Foul smelling urine Expected: 04/11/2023, Expires: 04/11/2024 Scheduled Procedures Name Priority Associated Diagnoses Date/Ti me ESOPHAGOGASTRODUODENOSCOPY ( EGD), FLEXIBLE, TRANSORAL, DIAGNOSTIC Recall Pendleton's esophagus Health Maintenance Due Date Last Done Comments DISCUSS TOBACCO CESSATION (REFER TO SMARTSET #1300) 1950 Hepatitis B (1 of 3 - Risk 3-dose series) 2009 *ADVANCE DIRECTIVE NOT ON FILE 06/28/2020 Pendleton's Esophagus Surveilance 01/19/2022 01/19/2019, 09/27/2018, 09/27/2018 Mammogram 03/19/2022 03/19/2021, 03/0 03/2017, 08/19/2014, Additional history exists COVID-19 Vaccine ( - 2022- season) 2022 07/14/2021, 08/12/2020, 07/15/2020 [...] D LEVEL ONCE IN A LIFETIME-USE SMARTSET# 66627 Completed 10/16/2021, 12/27/2018 Alpha-1 Antitrypsin Discontinued GARDASIL-HPV IMMUNIZATION SERIES Aged Out No longer eligible based on patient's age to complete this topic MENINGOCOCCAL (MENACTRA/MENVEO) Aged Out No longer eligible based on patient's age to complete this topic Zoster Vaccines Discontinued documented as of this encounter Medical Devices Implanted Type Area Grid Operator Device Identifier Shelf Expiration Date Model / Serial / Lot Stent Graft Icast [id number] - [id number] - [id number] Implanted:Qty : 1 on 04/14/2022 by Nnamdi King MD [place] [facility] [place]A: Mesenteric Artery GETINGE : YOELT [id number] 02/21/2023 [id number] / [id number] / [id number] Description:implanted in SMA Stent [place] 3.0x15 Rx - [id number] Implanted:Qty : 1 on 11/12/2022 by Patrice Jose MD at [place] [facility] [place] [employer] : VASCULAR [id number] 11/28/2023 [id number] / / [id number] 2 documented as of this encounter Visit Diagnoses Diagnosis Foul smelling urine- Primary Other nonspecific finding on examination of urine documented in this encounter Advance Directives Latest [...] or by statute hierarchy) Care Teams Certified Flex Endoscope Reprocessor Relationship Specialty Start Date End Date Courtney Restrepo MD [address] [place] [address] [place] [address] PCP - General Family Medicine 10/17/19 documented as of this encounter
--- OUTSIDE RECORDS SUMMARY | 2023-08-31 06:46 | External Medical Summary | Summary of Care ---
Author Name Unknown Organization [facility] Address [address] [place] [address] Phone [phone] Care Team Providers Care Bobtailer Name Role Phone Courtney Restrepo MD Primary Care Prov ider Encounter Details Date Type Department Care Team (Late st Contact Info) Description 04/13/2023 Orders Only PATIENT PORTAL DO NOT DELETE THIS DEPT USED BY [place] [id number] Allergies Active Allergy Reactions Criticality Noted Date [...] edema Nitroglycerin Hypotension 12/20/2018 Penicillins Nausea/vomiting 05/17/2007 [place] Hives 10/02/2018 Propoxyphene Edema face/lips/tongue,Hiv es 06/26/2009 [...] for Cramping. 90 Capsule 2 11/29/2022 Active HALO Medical TechnologiesTouch Delica Lancets 30GIndications:Type 2 diabetes mellitus with hemoglobin A1c goal of less than 8.0% ([facility]) Use to test glucose daily. E11.9 100 Each 5 11/29/2022 Active OneTouch Verio w/Device KitIndications:Type 2 diabetes mellitus with hemoglobin A1c goal of less than 8.0% ([facility]) Use to test glucose daily. E11.9 1 Kit 0 11/29/2022 Active Trelegy Ellipta 100-62.5-25 MCG/ACT Aerosol Powder Breath ActivatedIndications :COPD, group C, by GOLD 2017 classification ([facility]) Inhale 1 puff as directed once a day 1 inhalation daily. Rinse mouth after every use. 60 Blister Dosing Unit 5 11/29/2022 Active Sodium Chloride 4 MEQ/ML Oral Solution Take by mouth. 0 Active NovoLOG FlexPen 100 UNIT/ML Subcutaneous Solution Pen-injector (insulin aspart)Indications:T ype 2 diabetes mellitus with hemoglobin A1c goal of less than 8.0% ([facility]) Units as per sliding scale 3 mL 3 02/04/2023 Active Insulin Glargine Solostar 100 UNIT/ML Subcutaneous Solution Pen-injector (Lantus SoloStar)Indications :Type 2 diabetes mellitus with hemoglobin A1c goal of less than 8.0% ([facility]) Inject 10 Units under the [...] goal of less than 8.0% ([facility]) Test glucose once daily E11.9 [...] days. 14 Tablet 0 04/11/2023 4 Active documented as of this encounter [...] rinse after steroid. Test performed by Bibiana PROGRAMMING INTERN CPFT [place] (myocardial infarction) 02/21/2019 Bilateral [...] osteoporosis 07/03/2018 Reactive depression 11/17/2017 Atherosclerosis of [place] co ronary artery of [place] heart without angina pectoris 07/22/2015 Overview: [...] rinse after steroid. Test performed by Bibiana PROGRAMMING INTERN CPFT GENERAL OSTEOARTHROSIS BMI 32.0-32.9,adult Tobacco [...] ISCHEMIC HRT DIS NOS Coronary atherosclerosis of [place] coronary artery 11/24/2016 Tobacco abuse 11/17/2017 [...] 9:20 AM EST Office Visit Family Medicine [address] [place] [phone] Courtney Restrepo MD [address] [place] [address] [place] [address] 06/08/2023 11:00 AM EDT Office Visit Cardiology, [address] [place] [address] Frantz Herrera MD [address] [place] [address] 10/05/2023 7:30 AM EDT Imaging Vascular Lab, [address] [place] [address] 10/05/2023 8:30 AM EDT Imaging Vascular Lab, [address] [facility] [place] [address] 10/05/2023 10:00 AM EDT Imaging Vascular Lab, [address] [place] [address] 10/05/2023 11:00 AM EDT Imaging Vascular Lab, [address] [place] [address] 10/10/2023 4:00 PM EDT Office Visit Nephrology, [address] [place] [address] Charla Potter MD [address] [place] [id number] 10/12/2023 1:30 PM EDT Office Visit Vascular Surgery, [facility] [address] [place] [address] Nnamdi King MD [address] [facility] [place] [address] Scheduled Procedures Name Priority Associated Diagnoses Date/Ti me ESOPHAGOGASTRODUODENOSCOPY ( EGD), FLEXIBLE, TRANSORAL, DIAGNOSTIC Recall Pendleton's esophagus Health Maintenance Due Date Last Done Comments DISCUSS TOBACCO CESSATION (REFER TO SMARTSET #1462) 1950 Hepatitis B (1 of 3 - [...] D LEVEL ONCE IN A LIFETIME-USE SMARTSET# 26413 Completed 10/16/2021, 12/27/2018 Alpha-1 Antitrypsin Discontinued GARDASIL-HPV IMMUNIZATION SERIES Aged Out No longer eligible based on patient's age to complete this topic MENINGOCOCCAL (MENACTRA/MENVEO) Aged Out No longer eligible based on patient's age to complete this topic Zoster Vaccines Discontinued documented as of this encounter Medical Devices Implanted Type Area Field Service Coordinator Device Identifier Shelf Expiration Date Model / Serial / Lot Stent Graft Icast [id number] - [id number] - [id number] Implanted:Qty : 1 on 04/14/2022 by Nnamdi King MD [place] [facility] [place]A: Mesenteric Artery GETINGE : MAQUET [id number] 02/21/2023 [id number] / [id number] / [id number] Description:implanted in SMA Stent Howie 3.0x15 Rx - [id number] Implanted:Qty : 1 on 11/12/2022 by Patrice Jose MD at [place] [facility] [place] [employer] : VASCULAR [id number] 11/28/2023 [id number] / / [id number] documented as of this encounter Advance [...] patient or by statute hierarchy) Care Teams Bobtailer Relationship Specialty Start Date End Date Courtney Restrepo MD [address] [place] [address] [place] [address] PCP - General Family Medicine 10/17/19 documented as of this encounter
--- OUTSIDE RECORDS SUMMARY | 2023-08-31 06:47 | External Medical Summary | Summary of Care ---
Author Name Unknown Organization [facility] Address [address] [place] [address] Phone [phone] Care Team Providers Care Sewing Machine Maintenance Mechanic Name Role Phone Courtney Restrepo MD Primary Care Prov ider Reason for Visit * Reason Onset Date Comments Advice 04/06/2023 Medication Problem 04/06/2023 Encounter Details Date Type Department Care Team (Late st Contact Info) Description 04/06/2023 Telephone Family Medicine [address] [address] Courtney Restrepo MD [address] [place] [address] [place] [phone] Advice; Medication Problem Allergies Active Allergy Reactions [...] edema Nitroglycerin Hypotension 12/20/2018 Penicillins Nausea/vomiting 05/17/2007 [place] Hives 10/02/2018 Propoxyphene Edema face/lips/tongue,Hiv es 06/26/2009 [...] than 8.0% ([facility]) Use to test glucose daily. E11.9 100 Each 5 11/29/2022 Active OneTouch Verio w/Device KitIndications:Type 2 diabetes mellitus with hemoglobin A1c goal of less than 8.0% ([facility]) Use to test glucose daily. [...] for Pain, Severe. 60 Tablet 0 04/08/2023 Active documented as of this encounter (statuses [...] rinse after steroid. 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 Test performed by Bibiana RECORDS ADMINISTRATOR CPFT GENERAL OSTEOARTHROSIS BMI 32.0-32.9,adult Tobacco use [...] ISCHEMIC HRT DIS NOS Coronary atherosclerosis of [place] coronary artery 11/24/2016 Tobacco abuse 11/17/2017 documented [...] hydrocodone does need prior auth ID # [id number] Group # [id number] * Telephone Encounter - [...] Oxy. Message below states she did not tack picker the Oxy. She is not willing [...] MG Oral Tablet (Percocet) She did not tack picker this script Does not feel that [...] Please call patient back on mobile number [phone] documented in this encounter Plan of Treatment Upcoming Encounters Date Type Department Care Team (Late st Contact Info) Description 06/08/2023 11:00 AM EDT Office Visit Cardiology, [facility] [address] [facility] [place] [address] Frantz Herrera MD [address] [place] [address] 10/05/2023 7:30 AM EDT Imaging Vascular Lab, [address] [place] [address] 10/05/2023 8:30 AM EDT Imaging Vascular Lab, [address] [address] 10/05/2023 10:00 AM EDT Imaging Vascular Lab, [address] [place] [address] 10/05/2023 11:00 AM EDT Imaging Vascular Lab, [address] [place] [address] 10/10/2023 4:00 PM EDT Office Visit Nephrology, [address] [place] [address] Charla Potter MD 400 [facility] [place] [address] 10/12/2023 1:30 PM EDT Office Visit Vascular Surgery, [facility] [address] [place] [address] Nnamdi King MD [address] [place] [address] Scheduled Procedures Name Priority Associated Diagnoses Date/Ti me ESOPHAGOGASTRODUODENOSCOPY ( EGD), FLEXIBLE, TRANSORAL, DIAGNOSTIC Recall Pendleton's esophagus Health Maintenance Due Date Last Done Comments DISCUSS TOBACCO CESSATION (REFER TO SMARTSET #3294) 1950 Hepatitis B (1 of 3 - Risk 3-dose series) 2009 *ADVANCE DIRECTIVE NOT ON FILE 06/28/2020 Pendleton's Esophagus Surveilance 01/19/2022 01/19/2019, 09/27/2018, 09/27/2018 Mammogram 03/19/2022 03/19/2021, 03/03/2017, 08/19/2014, Additional history exists COVID-19 Vaccine ( [...] D LEVEL ONCE IN A LIFETIME-USE SMARTSET# 31670 Completed 10/16/2021, 12/27/2018 Alpha-1 Antitrypsin Discontinued GARDASIL-HPV IMMUNIZATION SERIES Aged Out No longer eligible based on patient's age to complete this topic MENINGOCOCCAL (MENACTRA/MENVEO) Aged Out No longer eligible based on patient's age to complete this topic Zoster Vaccines Discontinued documented as of this encounter Medical Devices Implanted Type Area Mixer Tender Device Identifier Shelf Expiration Date Model / Serial / Lot Stent Graft Icast [id number] - [id number] - [id number] Implanted:Qty : 1 on 04/14/2022 by Nnamdi King MD at OR [facility] [place] N/A: Mesenteric Artery GETINGE : VITOR [id number] 02/21/2023 [id number] / [id number] / [id number] Description:implanted in SMA Stent [place]cock 3.0x15 Rx - [id number] Implanted:Qty : 1 on 11/12/2022 by Patrice Jose MD at CARDIAC LABS [facility] [place] MEDTRONIC : VASCULAR [id number] 11/28/2023 [id number] / / [id number] 2 documented as of this encounter Visit [...] patient or by statute hierarchy) Care Teams Sewing Machine Maintenance Mechanic Relationship Specialty Start Date End Date Courtney Restrepo MD [address] [place] [address] [place] [phone] PCP - General Family Medicine 10/17/19 documented as of this encounter
--- OUTSIDE RECORDS SUMMARY | 2023-08-31 06:47 | External Medical Summary | Summary of Care ---
Author Name Unknown Organization [facility] Address [address] [place] [address] Phone [phone] Care Team Providers Care Map Editor Name Role Phone Courtney Restrepo MD Primary Care Prov ider Reason for Visit * Reason Onset Date Comments Advice 04/06/2023 Medication Problem 04/06/2023 Encounter Details Date Type Department Care Team (Late st Contact Info) Description 04/06/2023 Telephone Family Medicine [address] [address] Courtney Restrepo MD [address] [place] [address] [place] [phone] Advice; Medication Problem Allergies Active Allergy Reactions [...] edema Nitroglycerin Hypotension 12/20/2018 Penicillins Nausea/vomiting 05/17/2007 [place] Hives 10/02/2018 Propoxyphene Edema face/lips/tongue,Hiv es 06/26/2009 [...] goal of less than 8.0% ([facility]) Use to test glucose daily. E11.9 100 Each 5 11/29/2022 Active OneTouch Verio w/Device KitIndications:Type 2 diabetes mellitus with hemoglobin A1c goal of less than 8.0% ([facility]) Use to test glucose daily. E11.9 1 Kit 0 11/29/2022 Active Trelegy Ellipta 100-62.5-25 MCG/ACT Aerosol Powder Breath ActivatedIndications :COPD, group C, by GOLD 2017 classification ([facility]) Inhale 1 puff as directed once a day 1 inhalation daily. Rinse mouth after every use. 60 Blister Dosing Unit 5 11/29/2022 Active Sodium Chloride 4 MEQ/ML Oral Solution Take by mouth. 0 Active NovoLOG FlexPen 100 UNIT/ML Subcutaneous Solution Pen-injector (insulin aspart)Indications:T ype 2 diabetes mellitus with hemoglobin A1c goal of less than 8.0% ([facility]) Units as per sliding scale 3 mL 3 02/04/2023 Active Insulin Glargine Solostar 100 UNIT/ML Subcutaneous Solution Pen-injector (Lantus SoloStar)Indications :Type 2 diabetes mellitus with hemoglobin A1c goal of less than 8.0% ([facility]) Inject 10 Units under the [...] goal of less than 8.0% ([facility]) Test glucose once daily E11.9 [...] Bibiana FOOD SERVICE ORDER CLERK CPFT Old [place] (myocardial infarction) 02/21/2019 Bilateral [...] osteoporosis 07/03/2018 Reactive depression 11/17/2017 Atherosclerosis of [place] co ronary artery of [place] heart without angina pectoris 07/22/2015 Overview: Single [...] ISCHEMIC HRT DIS NOS Coronary atherosclerosis of [place] coronary artery 11/24/2016 Tobacco abuse 11/17/2017 documented [...] hydrocodone does need prior auth ID # [id number] Group # [id number] * Telephone Encounter - Leeanne Bautista LPN - 04/08/2023 3:17 PM EST Patient made aware * Telephone Encounter - Courtney Restrepo MD - 04/08/2023 2:13 PM EST Rx sent. Please let her know (she has called multiple times) * Telephone Encounter - Solange Duncan LPN - 04/08/2023 1:24 PM EST Received call from [employer]IST[employer] EXPERT line to office. See message below- Pt asking for Hydrocodone instead of Oxy. Message below states she did not waste picker the Oxy. She is not willing [...] MG Oral Tablet (Percocet) She did not waste picker this script Does not feel that [...] Please call patient back on mobile number [phone] documented in this encounter Plan of Treatment Upcoming Encounters Date Type Department Care Team (Late st Contact Info) Description 06/08/2023 11:00 AM EDT Office Visit Cardiology, [address] [place] [address] Frantz Herrera MD [address] [place] [address] 10/05/2023 7:30 AM EDT Imaging Vascular Lab, [facility], [address] [place] [address] 10/05/2023 8:30 AM EDT Imaging Vascular Lab, [facility], [address] [place] [address] 10/05/2023 10:00 AM EDT Imaging Vascular Lab, [facility], [address] [place] [address] 10/05/2023 11:00 AM EDT Imaging Vascular Lab, [facility], [address] [place] [address] 10/10/2023 4:00 PM EDT Office Visit Nephrology, [address] [place] [address] Charla Potter MD [address] [place] [address] [place] [address] 10/12/2023 1:30 PM EDT Office Visit Vascular Surgery, [facility] 132 [facility] [place] [address] Nnamdi King MD [address] [place] [address] Scheduled Procedures Name Priority Associated [...] D LEVEL ONCE IN A LIFETIME-USE SMARTSET# 50822 Completed 10/16/2021, 12/27/2018 Alpha-1 Antitrypsin Discontinued GARDASIL-HPV IMMUNIZATION SERIES Aged Out No longer eligible based on patient's age to complete this topic MENINGOCOCCAL (MENACTRA/MENVEO) Aged Out No longer eligible based on patient's age to complete this topic Zoster Vaccines Discontinued documented as of this encounter Medical Devices Implanted Type Area Cylinder Sander Operator Device Identifier Shelf Expiration Date Model / Serial / Lot Stent Graft Icast [id number] - [id number] - [id number] Implanted:Qty : 1 on 04/14/2022 by Nnamdi King MD at OR [facility] [place] N/A: Mesenteric Artery GETINGE : MAQUET [id number] 02/21/2023 [id number] / [id number] / [id number] Description:implanted in SMA Stent Howie 3.0x15 Rx - [id number] Implanted:Qty : 1 on 11/12/2022 by Patrice Jose MD at CARDIAC LABS [facility] [place] MEDTRON[employer] : VASCULAR [id number] 11/28/2023 [id number] / / [id number] 2 documented as of this encounter Visit [...] File Name Relationship Healthcare Agent [facility] p Communication Diamond Braxton Adult Child Health Care Repr esentative (appointed verbally by patient or by statute hierarchy) Care Teams Map Editor Relationship Specialty Start Date End Date Courtney Restrepo MD [address] [place] [address] [place] [address] PCP - General Family Medicine 10/17/19 documented as of this encounter
--- OUTSIDE RECORDS SUMMARY | 2023-08-31 06:47 | External Medical Summary | Summary of Care ---
Author Name Unknown Organization [facility] Address [address] [place] [address] Phone [phone] Care Team Providers Care Retinal Surgeon Name Role Phone Courtney Restrepo MD Primary Care Prov ider Reason for Visit * Reason Onset Date Comments Advice 04/06/2023 Medication Problem 04/06/2023 Encounter Details Date Type Department Care Team (Late st Contact Info) Description 04/06/2023 Telephone Family Medicine [address] [address] Courtney Restrepo MD [address] [place] [address] [place] [phone] Advice; Medication Problem Allergies Active Allergy Reactions [...] edema Nitroglycerin Hypotension 12/20/2018 Penicillins Nausea/vomiting 05/17/2007 [place] Hives 10/02/2018 Propoxyphene Edema face/lips/tongue,Hiv es 06/26/2009 [...] s:COPD, group C, by GOLD 2017 classification ([place] [...] Pain, Severe. 30 Tablet 0 03/04/2023 Active oxyCODONE-Acetamino phen 5-325 MG Oral Tablet [...] 7 days. 14 Tablet 0 04/11/2023 Active HYDROcodone-Acetami nophen 5-325 MG Oral TabletIndications:C [...] after steroid. Test performed by Bibiana CHIEF DIVERSITY OFFICER CPFT Old [place] (myocardial infarction) 02/21/2019 Bilateral [...] osteoporosis 07/03/2018 Reactive depression 11/17/2017 Atherosclerosis of [place] co ronary artery of [place] heart without angina pectoris 07/22/2015 Overview: Single [...] after steroid. Test performed by Bibiana CHIEF DIVERSITY OFFICER CPFT GENERAL OSTEOARTHROSIS BMI 32.0-32.9,adult Tobacco [...] ISCHEMIC HRT DIS NOS Coronary atherosclerosis of [place] coronary artery 11/24/2016 Tobacco abuse 11/17/2017 documented [...] encounter Miscellaneous Notes * Addendum Note - Courtney Restrepo MD [...] her a short supply of Hydrocodone. Called [facility], spoke with James. States [...] hydrocodone does need prior auth ID # [id number] Group # [id number] * Telephone Encounter - [...] Oxy. Message below states she did not rock picker the Oxy. She is not willing [...] MG Oral Tablet (Percocet) She did not rock picker this script Does not feel that [...] Please call patient back on mobile number [phone] documented in this encounter Plan of Treatment Upcoming Encounters Date Type Department Care Team (Late st Contact Info) Description 04/13/2023 9:20 AM EST Office Visit Family Medicine [address] [place] [address] Courtney Restrepo MD [address] [place] [address] [place] [address] 06/08/2023 11:00 AM EDT Office Visit Cardiology, [address] [place] [address] Frantz Herrera MD [address] [place] [address] 10/05/2023 7:30 AM EDT Imaging Vascular Lab, [address] [place] [address] 10/05/2023 8:30 AM EDT Imaging Vascular Lab, [address] [place] [address] 10/05/2023 10:00 AM EDT Imaging Vascular Lab, [address] [place] [address] 10/05/2023 11:00 AM EDT Imaging Vascular Lab, [address] [place] [address] 10/10/2023 4:00 PM EDT Office Visit Nephrology, Katelyn Diaz [address] [place] [address] Charla Potter MD 400 [facility] [place] [address] 10/12/2023 1:30 PM EDT Office Visit Vascular Surgery, [facility] [address] [facility] [place] [address] Nnamdi King MD [address] [place] [facility] [address] Scheduled Procedures Name Priority Associated Diagnoses Date/Ti me ESOPHAGOGASTRODUODENOSCOPY ( EGD), FLEXIBLE, TRANSORAL, DIAGNOSTIC Recall Pendleton's esophagus Health Maintenance Due Date Last Done Comments DISCUSS TOBACCO CESSATION (REFER TO SMARTSET #4238) 1950 Hepatitis B (1 of 3 - [...] D LEVEL ONCE IN A LIFETIME-USE SMARTSET# 50724 Completed 10/16/2021, 12/27/2018 Alpha-1 Antitrypsin Discontinued GARDASIL-HPV IMMUNIZATION SERIES Aged Out No longer eligible based on patient's age to complete this topic MENINGOCOCCAL (MENACTRA/MENVEO) Aged Out No longer eligible based on patient's age to complete this topic Zoster Vaccines Discontinued documented as of this encounter Medical Devices Implanted Type Area Motor Analyst Device Identifier Shelf Expiration Date Model / Serial / Lot Stent Graft Icast [id number] - [id number] - [id number] Implanted:Qty : 1 on 04/14/2022 by Nnamdi King MD at OR [facility] [place] N/A: Mesenteric Artery GETINGE : MAQUET [id number] 02/21/2023 [id number] / [id number] / [id number] Description:implanted in SMA Stent Fortuna 3.0x15 Rx - [id number] Implanted:Qty : 1 on 11/12/2022 by Patrice Jose MD at CARDIAC LABS [facility] [place] MEDTRONIC : VASCULAR [id number] 11/28/2023 [id number] / / [id number] 2 documented as of this encounter Visit [...] patient or by statute hierarchy) Care Teams Retinal Surgeon Relationship Specialty Start Date End Date Courtney Restrepo MD [address] [place] [address] [place] [phone] PCP - General Family Medicine 10/17/19 documented as of this encounter
--- OUTSIDE RECORDS SUMMARY | 2023-08-31 06:47 | External Medical Summary | Summary of Care ---
Author Name Unknown Organization [facility] Address [address] [place] [address] Phone [phone] Care Team Providers Care Baggage Porter Head Name Role Phone Courtney Restrepo MD Primary Care Prov ider Reason for Visit * Reason Onset Date Comments Advice 04/06/2023 Medication Problem 04/06/2023 Encounter Details Date Type Department Care Team (Late st Contact Info) Description 04/06/2023 Telephone Family Medicine [address] [address] Courtney Restrepo MD [address] [place] [address] [place] [phone] Advice; Medication Problem Allergies Active Allergy Reactions [...] edema Nitroglycerin Hypotension 12/20/2018 Penicillins Nausea/vomiting 05/17/2007 [place] Hives 10/02/2018 Propoxyphene Edema face/lips/tongue,Hiv es 06/26/2009 [...] goal of less than 8.0% ([facility]) Use to test glucose daily. E11.9 100 Each 5 11/29/2022 Active OneTouch Verio w/Device KitIndications:Type 2 diabetes mellitus with hemoglobin A1c goal of less than 8.0% ([facility]) Use to test glucose daily. E11.9 1 Kit 0 11/29/2022 Active Trelegy Ellipta 100-62.5-25 MCG/ACT Aerosol Powder Breath ActivatedIndications :COPD, group C, by GOLD 2017 classification ([facility]) Inhale 1 puff as directed once a day 1 inhalation daily. Rinse mouth after every use. 60 Blister Dosing Unit 5 11/29/2022 Active Sodium Chloride 4 MEQ/ML Oral Solution Take by mouth. 0 Active NovoLOG FlexPen 100 UNIT/ML Subcutaneous Solution Pen-injector (insulin aspart)Indications:T ype 2 diabetes mellitus with hemoglobin A1c goal of less than 8.0% ([facility]) Units as per sliding scale 3 mL 3 02/04/2023 Active Insulin Glargine Solostar 100 UNIT/ML Subcutaneous Solution Pen-injector (Lantus SoloStar)Indications :Type 2 diabetes mellitus with hemoglobin A1c goal of less than 8.0% ([facility]) Inject 10 Units under the skin every [...] goal of less than 8.0% ([facility]) Test glucose once daily E11.9 100 Strip [...] rinse after steroid. Test performed by Bibiana INTERNATIONAL SOURCING MANAGER CPFT Old [place] (myocardial infarction) 02/21/2019 Bilateral [...] rinse after steroid. Test performed by Bibiana INTERNATIONAL SOURCING MANAGER CPFT GENERAL OSTEOARTHROSIS BMI 32.0-32.9,adult Tobacco [...] encounter Miscellaneous Notes * Addendum Note - Bakari Charles LPN - 04/11/2023 12:06 PM ESTAddended by: BAKARI CHARLES on: 04/11/2023 12:06 PM Modules accepted: Orders * Telephone Encounter - Bakari Charles LPN - 04/11/2023 11:56 AM EST Pt called and was made aware of message from PCP. States that they will not give her a short supply of Hydrocodone. Called [facility], spoke with James. States that [...] hydrocodone does need prior auth ID # [id number] Group # [id number] * Telephone Encounter - [...] Oxy. Message below states she did not orange picker the Oxy. She is not willing [...] MG Oral Tablet (Percocet) She did not orange picker this script Does not feel that [...] Please call patient back on mobile number [phone] documented in this encounter Plan of Treatment Upcoming Encounters Date Type Department Care Team (Late st Contact Info) Description 06/08/2023 11:00 AM EDT Office Visit Cardiology, [facility] [address] [facility] [place] [address] Frantz Herrera MD [address] [place] [address] 10/05/2023 7:30 AM EDT Imaging Vascular Lab, [facility], [address] [place] [address] 10/05/2023 8:30 AM EDT Imaging Vascular Lab, [address], [address] [place] [address] 10/05/2023 10:00 AM EDT Imaging Vascular Lab, [address], [address] [place] [address] 10/05/2023 11:00 AM EDT Imaging Vascular Lab, [address], [address] [place] [address] 10/10/2023 4:00 PM EDT Office Visit Nephrology, [address] [place] [address] Charla Potter MD [address] [place] [address] 10/12/2023 1:30 PM EDT Office Visit Vascular Surgery, [address] [address] Nnamdi King MD [address] [place] [address] Scheduled Procedures Name Priority Associated Diagnoses Date/Ti [...] D LEVEL ONCE IN A LIFETIME-USE SMARTSET# 76750 Completed 10/16/2021, 12/27/2018 Alpha-1 Antitrypsin Discontinued GARDASIL-HPV IMMUNIZATION SERIES Aged Out No longer eligible based on patient's age to complete this topic MENINGOCOCCAL (MENACTRA/MENVEO) Aged Out No longer eligible based on patient's age to complete this topic Zoster Vaccines Discontinued documented as of this encounter Medical Devices Implanted Type Area Transportation Aide Device Identifier Shelf Expiration Date Model / Serial / Lot Stent Graft Icast [id number] - [id number] - [id number] Implanted:Qty : 1 on 04/14/2022 by Nnamdi King MD [place] [facility] [place]/A: Mesenteric Artery GETINGE : YOELT [id number] 02/21/2023 [id number] / [id number] / [id number] Description:implanted in SMA Stent Acme 3.0x15 Rx - [id number] Implanted:Qty : 1 on 11/12/2022 by Partice Jose MD at [place] [facility] [facility] [place] [employer] : VASCULAR [id number] 11/28/2023 [id number] / / [id number] 2 documented as of this encounter Visit [...] patient or by statute hierarchy) Care Teams Baggage Porter Head Relationship Specialty Start Date End Date Courtney Restrepo MD [address] [place] [address] [place] [address] PCP - General Family Medicine 10/17/19 documented as of this encounter
--- OUTSIDE RECORDS SUMMARY | 2023-08-31 06:48 | External Medical Summary | Summary of Care ---
Author Name Unknown Organization [facility] Address [address] [place] [address] Phone [phone] Care Team Providers Care Product Distribution Specialist Name Role Phone Courtney Restrepo MD Primary Care Prov ider Reason for Visit * Reason Onset Date Comments Advice 04/06/2023 Medication Problem 04/06/2023 Encounter Details Date Type Department Care Team (Late st Contact Info) Description 04/06/2023 Telephone Family Medicine [address] [address] Courtney Restrepo MD [address] [place] [address] [place] [phone] Advice; Medication Problem Allergies Active Allergy Reactions [...] edema Nitroglycerin Hypotension 12/20/2018 Penicillins Nausea/vomiting 05/17/2007 [place] Hives 10/02/2018 Propoxyphene Edema face/lips/tongue,Hiv es 06/26/2009 documented as of this encounter (statuses as of 04/08/2023) Medications Medication Sig Dispensed Refills Start Date [...] of less than 8.0% ([facility]) Units as per sliding scale 3 mL 3 02/04/2023 Active Insulin Glargine Solostar 100 UNIT/ML Subcutaneous Solution Pen-injector (Lantus SoloStar)Indications :Type 2 diabetes mellitus with hemoglobin A1c goal of less than 8.0% ([facility]) Inject 10 Units under the skin [...] of less than 8.0% ([facility]) Test glucose once daily E11.9 100 [...] as of this encounter (statuses as of 04/08/2023) Active Problems Problem Noted Date Diagnosed Date [...] rinse after steroid. Test performed by Bibiana TAR MAN CPFT [place] (myocardial infarction) 02/21/2019 Bilateral [...] osteoporosis 07/03/2018 Reactive depression 11/17/2017 Atherosclerosis of [place] co ronary artery of [place] heart without angina pectoris 07/22/2015 Overview: Single [...] rinse after steroid. Test performed by Bibiana TAR MAN CPFT GENERAL OSTEOARTHROSIS BMI 32.0-32.9,adult Tobacco use disorder Hyperlipidemia with target LDL less than 70 Overview: ICD-10 update of inactive term RSD upper limb Overview: left arm Generalized anxiety disorder documented as of this encounter (statuses as of 04/08/2023) Resolved Problems Problem Noted Date Diagnosed Date [...] ISCHEMIC HRT DIS NOS Coronary atherosclerosis of [place] coronary artery 11/24/2016 Tobacco abuse 11/17/2017 documented as of this encounter (statuses as of 04/08/2023) Immunizations Name Administration Dates Next Due COVID-19 [...] Oxy. Message below states she did not turkey picker the Oxy. She is not willing [...] MG Oral Tablet (Percocet) She did not turkey picker this script Does not feel that [...] Please call patient back on mobile number [phone] documented in this encounter Plan of Treatment Upcoming Encounters Date Type Department Care Team (Late st Contact Info) Description 06/08/2023 11:00 AM EDT Office Visit Cardiology, [address] [place] [address] Frantz Herrera MD [address] [place] [address] 10/05/2023 7:30 AM EDT Imaging Vascular Lab, [address] [place] [address] 10/05/2023 8:30 AM EDT Imaging Vascular Lab, [address] [place] [address] 10/05/2023 10:00 AM EDT Imaging Vascular Lab, [address] [place] [address] 10/05/2023 11:00 AM EDT Imaging Vascular Lab, [facility] 2nd Floor, [place] [facility] [address] 10/10/2023 4:00 PM EDT Office Visit Nephrology, [facility] [address] [place] [address] Charla Potter MD 400 [facility] [place] [address] 10/12/2023 1:30 PM EDT Office Visit Vascular Surgery, [facility] 132 [facility] [place] [address] Nnamdi King MD [address] [facility] [place] [address] Scheduled Procedures Name Priority Associated Diagnoses Date/Ti me ESOPHAGOGASTRODUODENOSCOPY ( EGD), FLEXIBLE, TRANSORAL, DIAGNOSTIC Recall Pendleton's esophagus Health Maintenance Due Date Last Done Comments DISCUSS TOBACCO CESSATION (REFER TO SMARTSET #6791) 1950 Hepatitis B (1 of 3 - [...] 03/10/2024 03/10/2023, 09/2022, 02/07/2023, Additional history exists DTaP,Tdap,and Td Vaccines (3 - Td or Tdap) 07/15/2031 07/14/2021 (Declined), 07/27/2010 Pneumococcal Vaccine: 65+ Years Completed 10/27/2015, 08/08/2014, 05/30/2008 VITAMIN D LEVEL ONCE IN A LIFETIME-USE SMARTSET# 06444 Completed 10/16/2021, 12/27/2018 Alpha-1 Antitrypsin Discontinued GARDASIL-HPV IMMUNIZATION SERIES Aged Out No longer eligible based on patient's age to complete this topic MENINGOCOCCAL (MENACTRA/MENVEO) Aged Out No longer eligible based on patient's age to complete this topic Zoster Vaccines Discontinued documented as of this encounter Medical Devices Implanted Type Area Stretching Press Operator Device Identifier Shelf Expiration Date Model / Serial / Lot Stent Graft Icast [id number] - [id number] - [id number] Implanted:Qty : 1 on 04/14/2022 by Nnamdi King MD [place] [facility] [place]A: Mesenteric Artery GETINGE : MAQUET [id number] 02/21/2023 [id number] / [id number] / [id number] Description:implanted in SMA Stent [place] 3.0x15 Rx - [id number] Implanted:Qty : 1 on 11/12/2022 by Patrice Jose MD at [facility] [place] MEDTRONIC : VASCULAR [id number] 11/28/2023 [id number] / / [id number] documented as of this encounter Visit [...] patient or by statute hierarchy) Care Teams Product Distribution Specialist Relationship Specialty Start Date End Date Courtney Restrepo MD [address] [place] [address] [place] [address] PCP - General Family Medicine 10/17/19 documented as of this encounter
--- OUTSIDE RECORDS SUMMARY | 2023-08-31 06:48 | External Medical Summary | Summary of Care ---
Author Name Unknown Organization [facility] Address [address] [place] [address] Phone [phone] Care Team Providers Care Stope Miner Name Role Phone Courtney Restrepo MD Primary Care Prov ider Reason for Visit * Reason Onset Date Comments Advice 04/06/2023 Medication Problem 04/06/2023 Encounter Details Date Type Department Care Team (Late st Contact Info) Description 04/06/2023 Telephone Family Medicine [address] [phone] Courtney Restrepo MD [address] [place] [address] [place] [phone] Advice; Medication Problem Allergies Active Allergy Reactions [...] Nitroglycerin Hypotension 12/20/2018 Penicillins Nausea/vomiting 05/17/2007 [place] Hives 10/02/2018 Propoxyphene Edema face/lips/tongue,Hiv es 06/26/2009 [...] of less than 8.0% ([facility]) Use to test glucose daily. E11.9 100 Each 5 11/29/2022 Active OneTouch Verio w/Device KitIndications:Type 2 diabetes mellitus with hemoglobin A1c goal of less than 8.0% ([facility]) Use to test glucose daily. E11.9 1 Kit 0 11/29/2022 Active Trelegy Ellipta 100-62.5-25 MCG/ACT Aerosol Powder Breath ActivatedIndications :COPD, group C, by GOLD 2017 classification ([facility]) Inhale 1 puff as directed once a day 1 inhalation daily. Rinse mouth after every use. 60 Blister Dosing Unit 5 11/29/2022 Active Sodium Chloride 4 MEQ/ML Oral Solution Take by mouth. 0 Active NovoLOG FlexPen 100 UNIT/ML Subcutaneous Solution Pen-injector (insulin aspart)Indications:T ype 2 diabetes mellitus with hemoglobin A1c goal of less than 8.0% ([facility]) Units as per sliding scale 3 mL 3 02/04/2023 Active Insulin Glargine Solostar 100 UNIT/ML Subcutaneous Solution Pen-injector (Lantus SoloStar)Indications :Type 2 diabetes mellitus with hemoglobin A1c goal of less than 8.0% ([facility]) Inject 10 Units under the [...] rinse after steroid. Test performed by Bibiana ELECTROTYPER CPFT [place] (myocardial infarction) 02/21/2019 Bilateral [...] osteoporosis 07/03/2018 Reactive depression 11/17/2017 Atherosclerosis of [place] co ronary artery of [place] heart without angina pectoris 07/22/2015 Overview: Single [...] rinse after steroid. Test performed by Bibiana ELECTROTYPER CPFT GENERAL OSTEOARTHROSIS BMI 32.0-32.9,adult Tobacco use [...] ISCHEMIC HRT DIS NOS Coronary atherosclerosis of [place] coronary artery 11/24/2016 Tobacco abuse 11/17/2017 documented [...] hydrocodone does need prior auth ID # [id number] Group # [id number] * Telephone Encounter - Leeanne Bautista LPN - 04/08/2023 3:17 PM EST Patient made aware * Telephone Encounter - Courtney Restrepo MD - 04/08/2023 2:13 PM EST Rx sent. Please let her know (she has called multiple times) * Telephone Encounter - Solange Duncan LPN - 04/08/2023 1:24 PM EST Received call from VAUDEVILLE ACTOR line to office. See message below- Pt asking for Hydrocodone instead of Oxy. Message below states she did not brass pickler the Oxy. She is not willing to [...] MG Oral Tablet (Percocet) She did not brass pickler this script Does not feel that this [...] Please call patient back on mobile number [phone] documented in this encounter Plan of Treatment Upcoming Encounters Date Type Department Care Team (Late st Contact Info) Description 06/08/2023 11:00 AM EDT Office Visit Cardiology, [facility], [address] [place] [address] Frantz Herrera MD [address] [place] [address] 10/05/2023 7:30 AM EDT Imaging Vascular Lab, [address], [address] [address] 10/05/2023 8:30 AM EDT Imaging Vascular Lab, [address], [address] [address] 10/05/2023 10:00 AM EDT Imaging Vascular Lab, [address], [address] [place] [address] 10/05/2023 11:00 AM EDT Imaging Vascular Lab, [address], [address] [place] [address] 10/10/2023 4:00 PM EDT Office Visit Nephrology, [address] [address] Charla Potter MD [address] [place] [address] 10/12/2023 1:30 PM EDT Office Visit Vascular Surgery, [address] [address] Nnamdi King MD [address] [place] [address] Scheduled Procedures Name Priority Associated Diagnoses Date/Ti [...] 03/10/2023, 12/0 09/2022, 02/07/2023, Additional history exists DTaP,Tdap,and Td Vaccines (3 - Td or Tdap) 07/15/2031 07/14/2021 (Declined), 07/27/2010 Pneumococcal Vaccine: 65+ Years Completed 10/27/2015, 08/08/2014, 05/30/2008 VITAMIN D LEVEL ONCE IN A LIFETIME-USE SMARTSET# [id number] Completed 10/16/2021, 12/27/2018 Alpha-1 Antitrypsin Discontinued GARDASIL-HPV IMMUNIZATION SERIES Aged Out No longer eligible based on patient's age to complete this topic MENINGOCOCCAL (MENACTRA/MENVEO) Aged Out No longer eligible based on patient's age to complete this topic Zoster Vaccines Discontinued documented as of this encounter Medical Devices Implanted Type Area Solar Electric Installer Device Identifier Shelf Expiration Date Model / Serial / Lot Stent Graft Icast [id number] - [id number] - [id number] Implanted:Qty : 1 on 04/14/2022 by Nnamdi King MD at OR [facility] N/A: Mesenteric Artery GETINGE : MAQUET [id number] 02/21/2023 [id number] / [id number] / [id number] Description:implanted in SMA Stent [place] 3.0x15 Rx - [id number] Implanted:Qty : 1 on 11/12/2022 by Patrice Jose MD at [facility]ARDI[facility] LABS [facility] MEDTRON[employer] : VASCULAR [id number] 11/28/2023 [id number] / / [id number] documented as of this encounter Visit [...] patient or by statute hierarchy) Care Teams Stope Miner Relationship Specialty Start Date End Date Courtney Restrepo MD [address] [place] [address] [place] [address] PCP - General Family Medicine 10/17/19 documented as of this encounter
--- OUTSIDE RECORDS SUMMARY | 2023-08-31 06:48 | External Medical Summary | Summary of Care ---
Author Name Unknown Organization [facility] Address [address] [place] [address] Phone [phone] Care Team Providers Care Waiter/Waitress Formal Name Role Phone Courtney Restrepo MD Primary Care Prov ider Reason for Visit * Reason Onset Date Comments Advice 04/06/2023 Medication Problem 04/06/2023 Encounter Details Date Type Department Care Team (Late st Contact Info) Description 04/06/2023 Telephone Family Medicine [address] [phone] Courtney Restrepo MD [address] [place] [address] [place] [phone] Advice; Medication Problem Allergies Active Allergy Reactions [...] edema Nitroglycerin Hypotension 12/20/2018 Penicillins Nausea/vomiting 05/17/2007 [place] Hives 10/02/2018 Propoxyphene Edema face/lips/tongue,Hiv es 06/26/2009 [...] rinse after steroid. Test performed by Bibiana INSTRUCTIONAL SUPPORT SERVICES DIRECTOR CPFT [place] (myocardial infarction) 02/21/2019 Bilateral [...] osteoporosis 07/03/2018 Reactive depression 11/17/2017 Atherosclerosis of [place] co ronary artery of [place] heart without angina pectoris 07/22/2015 Overview: Single [...] rinse after steroid. Test performed by Bibiana INSTRUCTIONAL SUPPORT SERVICES DIRECTOR CPFT GENERAL OSTEOARTHROSIS BMI 32.0-32.9,adult Tobacco [...] ISCHEMIC HRT DIS NOS Coronary atherosclerosis of [place] coronary artery 11/24/2016 Tobacco abuse 11/17/2017 documented [...] 04/08/2023 1:24 PM EST Received call from TUFTING MACHINE FIXER line to office. See message below- Pt asking for Hydrocodone instead of Oxy. Message below states she did not apple picking supervisor the Oxy. She is not willing to [...] MG Oral Tablet (Percocet) She did not apple picking supervisor this script Does not feel that this [...] Please call patient back on mobile number [phone] documented in this encounter Plan of Treatment Upcoming Encounters Date Type Department Care Team (Late st Contact Info) Description 06/08/2023 11:00 AM EDT Office Visit Cardiology, [address] [place] [address] Frantz Herrera MD [address] [place] [address] 10/05/2023 7:30 AM EDT Imaging Vascular Lab, [address] [place] [address] 10/05/2023 8:30 AM EDT Imaging Vascular Lab, [address] [facility] [place] [address] 10/05/2023 10:00 AM EDT Imaging Vascular Lab, [address] [place] [address] 10/05/2023 11:00 AM EDT Imaging Vascular Lab, [address] [place] [address] 10/10/2023 4:00 PM EDT Office Visit Nephrology, [address] [place] [address] Charla Potter MD [address] [place] [address] 10/12/2023 1:30 PM EDT Office Visit Vascular Surgery, [facility] [address] [place] [address] Nnamdi King MD [address] [facility] [place] [address] Scheduled Procedures Name Priority Associated Diagnoses Date/Ti me ESOPHAGOGASTRODUODENOSCOPY ( EGD), FLEXIBLE, TRANSORAL, DIAGNOSTIC Recall Pendleton's esophagus Health Maintenance Due Date Last Done Comments DISCUSS TOBACCO CESSATION (REFER TO SMARTSET #7179) 1950 Hepatitis B (1 of 3 - [...] D LEVEL ONCE IN A LIFETIME-USE SMARTSET# [id number] Completed 10/16/2021, 12/27/2018 Alpha-1 Antitrypsin Discontinued GARDASIL-HPV IMMUNIZATION SERIES Aged Out No longer eligible based on patient's age to complete this topic MENINGOCOCCAL (MENACTRA/MENVEO) Aged Out No longer eligible based on patient's age to complete this topic Zoster Vaccines Discontinued documented as of this encounter Medical Devices Implanted Type Area Health Information Management Director Device Identifier Shelf Expiration Date Model / Serial / Lot Stent Graft Icast [id number] - [id number] - [id number] Implanted:Qty : 1 on 04/14/2022 by Nnamdi King MD [place] [facility] [place]A: Mesenteric Artery GETINGE : MAQUET [id number] 02/21/2023 [id number] / [id number] / [id number] Description:implanted in SMA Stent [place] 3.0x15 Rx - [id number] Implanted:Qty : 1 on 11/12/2022 by Patrice Jose MD at [facility] [place] [employer] : VASCULAR [id number] 11/28/2023 [id number] / / [id number] 2 documented as of this encounter Visit [...] patient or by statute hierarchy) Care Teams Waiter/Waitress Formal Relationship Specialty Start Date End Date Courtney Restrepo MD [address] [place] [address] [place] [address] PCP - General Family Medicine 10/17/19 documented as of this encounter
--- OUTSIDE RECORDS SUMMARY | 2023-08-31 06:48 | External Medical Summary | Summary of Care ---
Author Name Unknown Organization [facility] Address [address] [place] [address] Phone [phone] Care Team Providers Care Historical Society Director Name Role Phone Courtney Restrepo MD Primary Care Prov ider Reason for Visit * Reason Onset Date Comments Advice 04/06/2023 Medication Problem 04/06/2023 Encounter Details Date Type Department Care Team (Late st Contact Info) Description 04/06/2023 Telephone Family Medicine [address] [address] Courtney Restrepo MD [address] [place] [address] [place] [phone] Advice; Medication Problem Allergies Active Allergy Reactions [...] less than 8.0% ([facility]) Units as per sliding scale 3 mL 3 02/04/2023 Active Insulin Glargine Solostar 100 UNIT/ML Subcutaneous Solution Pen-injector (Lantus SoloStar)Indications :Type 2 diabetes mellitus with hemoglobin A1c goal of less than 8.0% ([facility]) Inject 10 Units under the skin [...] rinse after steroid. Test performed by Bibiana CHARACTER ACTRESS CPFT [place] (myocardial infarction) 02/21/2019 Bilateral [...] osteoporosis 07/03/2018 Reactive depression 11/17/2017 Atherosclerosis of [place] co ronary artery of [place] heart without angina pectoris 07/22/2015 Overview: Single [...] rinse after steroid. Test performed by Bibiana CHARACTER ACTRESS CPFT GENERAL OSTEOARTHROSIS BMI 32.0-32.9,adult Tobacco use [...] ISCHEMIC HRT DIS NOS Coronary atherosclerosis of [place] coronary artery 11/24/2016 Tobacco abuse 11/17/2017 documented [...] hydrocodone does need prior auth ID # [id number] Group # [id number] * Telephone Encounter - [...] Oxy. Message below states she did not acupressurist the Oxy. She is not willing to [...] MG Oral Tablet (Percocet) She did not acupressurist this script Does not feel that this [...] Please call patient back on mobile number [phone] documented in this encounter Plan of Treatment Upcoming Encounters Date Type Department Care Team (Late st Contact Info) Description 06/08/2023 11:00 AM EDT Office Visit Cardiology, [facility] 132 [facility] [place] [address] Frantz Herrera MD [address] [facility] [place] [address] 10/05/2023 7:30 AM EDT Imaging Vascular Lab, [facility] 132 [place] [address] 10/05/2023 8:30 AM EDT Imaging Vascular Lab, [address] 132 [facility] [place] [address] 10/05/2023 10:00 AM EDT Imaging Vascular Lab, [address] 132 [facility] [place] [address] 10/05/2023 11:00 AM EDT Imaging Vascular Lab, [address], [place] 132 [facility] [place] [address] 10/10/2023 4:00 PM EDT Office Visit Nephrology, [facility] [address] [place] [address] Charla Potter MD 400 [facility] [place] [address] 10/12/2023 1:30 PM EDT Office Visit Vascular Surgery, [facility] 132 [facility] [place] [address] Nnamdi King MD [address] [place], [place] [phone] Scheduled Procedures Name Priority Associated Diagnoses Date/Ti [...] D LEVEL ONCE IN A LIFETIME-USE SMARTSET# [id number] Completed 10/16/2021, 12/27/2018 Alpha-1 Antitrypsin Discontinued GARDASIL-HPV IMMUNIZATION SERIES Aged Out No longer eligible based on patient's age to complete this topic MENINGOCOCCAL (MENACTRA/MENVEO) Aged Out No longer eligible based on patient's age to complete this topic Zoster Vaccines Discontinued documented as of this encounter Medical Devices Implanted Type Area Quill Skinner Device Identifier Shelf Expiration Date Model / Serial / Lot Stent Graft Icast [id number] - [id number] - [id number] Implanted:Qty : 1 on 04/14/2022 by Nnamdi King MD [place] [facility] [place]A: Mesenteric Artery GETINGE : YOELT [id number] 02/21/2023 [id number] / [id number] / [id number] Description:implanted in SMA Stent [place] 3.0x15 Rx - [id number] Implanted:Qty : 1 on 11/12/2022 by Patrice Jose MD at [facility] [place] [employer] : VASCULAR [id number] 11/28/2023 [id number] / / [id number] documented as of this encounter Visit [...] patient or by statute hierarchy) Care Teams Historical Society Director Relationship Specialty Start Date End Date Courtney Restrepo MD [address] [place] [address] [place] [address] PCP - General Family Medicine 10/17/19 documented as of this encounter
--- OUTSIDE RECORDS SUMMARY | 2023-08-31 06:49 | External Medical Summary | Summary of Care ---
Author Name Unknown Organization [facility] Address [address] [place] [address] Phone [phone] Care Team Providers Care Property Administrator Name Role Phone Courtney Restrepo MD Primary Care Prov ider Reason for Visit * Reason Onset Date Comments Advice 04/06/2023 Medication Problem 04/06/2023 Encounter Details Date Type Department Care Team (Late st Contact Info) Description 04/06/2023 Telephone Family Medicine [address] [address] Courtney Restrepo MD [address] [place] [address] [place] [id number] Advice; Medication Problem Allergies Active Allergy Reactions [...] edema Nitroglycerin Hypotension 12/20/2018 Penicillins Nausea/vomiting 05/17/2007 [place] Hives 10/02/2018 Propoxyphene Edema face/lips/tongue,Hiv es [...] rinse after steroid. Test performed by Bibiana PROFESSOR OF THEOLOGY CPFT Old [place] (myocardial infarction) 02/21/2019 Bilateral [...] 07/03/2018 Reactive depression 11/17/2017 Atherosclerosis of [place] co ronary artery of [place] heart without angina pectoris 07/22/2015 Overview: Single [...] rinse after steroid. Test performed by Bibiana PROFESSOR OF THEOLOGY CPFT GENERAL OSTEOARTHROSIS BMI 32.0-32.9,adult Tobacco use [...] HRT DIS NOS Coronary atherosclerosis of [place] coronary artery 11/24/2016 Tobacco abuse 11/17/2017 documented [...] 04/08/2023 1:24 PM EST Received call from [employer] line to office. See message below- Pt asking for Hydrocodone instead of Oxy. Message below states she did not picker the Oxy. She is not willing [...] MG Oral Tablet (Percocet) She did not picker this script Does not feel that [...] Please call patient back on mobile number [phone] documented in this encounter Plan of Treatment Upcoming Encounters Date Type Department Care Team (Late st Contact Info) Description 06/08/2023 11:00 AM EDT Office Visit Cardiology, [address] [place] [address] Frantz Herrera MD [address] [place] [address] 10/05/2023 7:30 AM EDT Imaging Vascular Lab, [address] [place] [address] 10/05/2023 8:30 AM EDT Imaging Vascular Lab, [address] Mar[place]ou Bryan [facility] [place] [address] 10/05/2023 10:00 AM EDT Imaging Vascular Lab, [address] [place] [address] 10/05/2023 11:00 AM EDT Imaging Vascular Lab, [address] [place] [address] 10/10/2023 4:00 PM EDT Office Visit Nephrology, [address] [place] [address] Charla Potter MD [address] [place] [address] 10/12/2023 1:30 PM EDT Office Visit Vascular Surgery, [facility] [address] [place] [address] Nnamdi Kign MD [address] [facility] [place] [address] Scheduled Procedures Name Priority Associated Diagnoses Date/Ti me ESOPHAGOGASTRODUODENOSCOPY ( EGD), FLEXIBLE, TRANSORAL, DIAGNOSTIC Recall Pendleton's esophagus Health Maintenance Due Date Last Done Comments DISCUSS TOBACCO CESSATION (REFER TO SMARTSET #8078) 1950 Hepatitis B (1 of 3 - [...] D LEVEL ONCE IN A LIFETIME-USE SMARTSET# 82454 Completed 10/16/2021, 12/27/2018 Alpha-1 Antitrypsin Discontinued GARDASIL-HPV IMMUNIZATION SERIES Aged Out No longer eligible based on patient's age to complete this topic MENINGOCOCCAL (MENACTRA/MENVEO) Aged Out No longer eligible based on patient's age to complete this topic Zoster Vaccines Discontinued documented as of this encounter Medical Devices Implanted Type Area Lifestyle Director Device Identifier Shelf Expiration Date Model / Serial / Lot Stent Graft Icast [id number] - [id number] - [id number] Implanted:Qty : 1 on 04/14/2022 by Nnamdi King MD at [place] [facility] [place] N/A: Mesenteric Artery GETINGE : MAQUET [id number] 02/21/2023 [id number] / [id number] / [id number] Description:implanted in SMA Stent Howie 3.0x15 Rx - [id number] Implanted:Qty : 1 on 11/12/2022 by Patrice Jose MD at [facility]ARDIAC LABS [facility] [place] MEDTRONIC : VASCULAR [id number] 11/28/2023 [id number] / / [id number] documented as of this encounter Visit [...] or by statute hierarchy) Care Teams Property Administrator Relationship Specialty Start Date End Date Courtney Restrepo MD [address] [place] [address] [place] [address] PCP - General Family Medicine 10/17/19 documented as of this encounter
--- OUTSIDE RECORDS SUMMARY | 2023-08-31 06:49 | External Medical Summary | Summary of Care ---
Author Name Unknown Organization [facility] Address [address] [place] [address] Phone [phone] Care Team Providers Care Yarn Sorter Name Role Phone Courtney Restrepo MD Primary Care Prov ider Reason for Visit * Reason Onset Date Comments Home Health 01/03/2023 Encounter Details Date Type Department Care Team (Late st Contact Info) Description 01/03/2023 Telephone Family [address] [phone] Courtney Restrepo MD [address] [place] [address] [place] [address] Home Health Allergies Active Allergy Reactions [...] edema Nitroglycerin Hypotension 12/20/2018 Penicillins Nausea/vomiting 05/17/2007 [place] Hives 10/02/2018 Propoxyphene Edema face/lips/tongue,Hiv es 06/26/2009 documented as of this encounter (statuses as of 04/04/2023) Medications Medication Sig Dispensed Refills Start Date [...] or chew the tablet. 180 Tablet 3 02/27/20 22 Active Albuterol Sulfate HFA 108 (90 Base) MCG/ACT Inhalation Aerosol SolutionIndication s:Bacterial pneumonia Use two puffs four times a day as needed for shortness of breath/wheezing 18 g 3 06/05/19 23 Active Loratadine 10 MG Oral Tablet (Claritin) [...] Breath. 100 mL 3 11/30/19 23 Active Lidocaine 4 % External Patch (Aspercreme) Place 1 Patch over 12 hours topically on the skin daily. 30 Patch 0 11/30/19 23 Active Dicyclomine HCl 10 MG Oral Capsule (Bentyl)Indication s:Mesenteric ischemia, chronic (HCC) Take 1 Capsule by mouth 3 times a day as needed for Cramping. 90 Capsule 2 11/30/19 23 Active OneTouch Delica Lancets 30GIndications:Typ [...] use. 60 Blister Dosing Unit 11/30/19 Active Cholecalciferol (VITAMIN D-3) 5000 units Tablet Take 1 Tablet by mouth in the morning and 1 Tablet before bedtime. 0 023 Discontinued(Me dication List Clean Up) Calcium 600 MG Tablet Take 1 Tablet by mouth in the morning and 1 Tablet before bedtime. 0 023 Discontinued(Me dication List Clean Up) docusate sodium (COLACE) 50 MG Capsule Take by mouth at bedtime. 0 023 Discontinued(Me dication List Clean Up) Align Oral Capsule Take 1 Capsule by mouth in the morning. 0 Discontinued(Me dication List Clean Up) Sucralfate 1 GM Oral Tablet (Carafate)Indicati ons:Iron deficiency anemia due to chronic blood loss,Chronic superficial gastritis with bleeding Take 1 Tablet by mouth 4 times a day before meals and at bedtime. half an hour before meals and at bedtime 360 Tablet 3 06/05/19 23 023 Discontinued(Me dication List Clean Up) Aspirin 81 MG Oral Tablet Delayed Release Take 1 Tablet by mouth in the morning. 30 Tablet 2 09/24/19 23 023 Discontinued(Me dication List Clean Up) piperacillin-tazob actam IV IV (AMBULATORY) Administer 4.5 g intravenously in the morning and 4.5 g at noon and 4.5 g before bedtime. Do all this for 24 days. 324 g 0 11/23/19 23 023 Discontinued predniSONE 10 MG Oral Tablet (Deltasone) Take 4 Tablets by mouth daily for 8 days, THEN 3 Tablets daily for 2 days, THEN 2 Tablets daily for 2 days, THEN 1 Tablet daily for 2 days. 44 Tablet 0 11/25/19 23 023 Discontinued Calmoseptine 0.44-20.6 % External Ointment (Menthol-Zinc Oxide)Indications: Mixed incontinence Apply topically to affected area as needed for Wound Care. Apply to rash/ sores on bottom 71 g 3 11/26/19 23 023 Discontinued(Me dication List Clean Up) Ondansetron HCl 4 MG Oral TabletIndications: Mesenteric ischemia, chronic (HCC) Take 1 Tablet by mouth every 8 hours as needed for Nausea. 20 Tablet 2 11/30/19 23 023 Discontinued(Me dication List Clean Up) Furosemide 20 MG Oral Tablet Take 1 Tablet by mouth in the morning. Do not take 12/25, 12/26, or 12/27/22. . 90 Tablet 3 12/29/19 23 023 Discontinued OneTouch Verzain In Vitro Strip (Glucose Blood)Indications: Type 2 diabetes mellitus with hemoglobin A1c goal of less than 8.0% ([facility]) Test glucose once daily E11.9 100 Strip 5 11/30/19 23 023 Discontinued(Re fill) Metoprolol Succinate ER 25 MG Oral Tablet Extended Release 24 Hour (toPROL XL) Take 1 Tablet by mouth in the morning. 90 Tablet 1 12/26/19 23 023 Discontinued Nicotine 14 MG/24HR Transdermal Patch 24 Hour (Nicoderm CQ)Indications:Tob acco use disorder One 14 mg patch daily for 2-4 wks; then one 7 mg patch daily for 2-4 wks. Remove old patch daily 28 Patch 0 11/30/19 23 023 Discontinued(Me dication List Clean Up) Nicotine 7 MG/24HR Transdermal Patch 24 Hour (Nicoderm CQ)Indications:Tob acco use disorder One 7 mg patch daily for 2-4 weeks; Remove old patch daily; and then stop. 28 Patch 1 11/30/19 23 023 Discontinued(Me dication List Clean Up) Nystatin 328117 UNIT/GM External Powder (Nystop)Indication s:Intertrigo Apply topically to affected area 3 times a day. 60 g 1 11/30/19 23 023 Discontinued(Me dication List Clean Up) Zinc 50 MG Oral Tablet Take 1 Tablet by mouth in the morning. Dose needs confirmed.. 0 Discontinued(Me dication List Clean Up) Vitamin C 500 MG Oral Tablet (Ascorbic Acid) Take 1 Tablet by mouth in the morning. Dose needs confirmed.. 0 Discontinued(Me dication List Clean Up) Atorvastatin Calcium 40 MG Oral Tablet (Lipitor)Indicatio ns:Hyperlipidemia with target LDL less than 70 Take 1 Tablet by mouth in the morning. 90 Tablet 0 12/07/19 023 Discontinued glipiZIDE 10 MG Oral Tablet (Glucotrol)Indicat ions:DM type 2, not at goal (HCC) Take 1 tablet in the morning and 1/2 tablet in the evening. 180 Tablet 1 12/11/19 023 Discontinued(Me dication List Clean Up) Potassium Chloride Etelvina ER 20 MEQ Oral Tablet Extended ReleaseIndications :Hypokalemia Take 1 Tablet by mouth in the morning. Only when taking additional Lasix. 30 Tablet 0 12/11/19 023 Discontinued Miconazole Nitrate 2 % External Powder Apply topically to affected area 3 times a day. Apply to affected area Do not start before December 31, 2022. 0 01/01/20 Discontinued(Me dication List Clean Up) Spironolactone 25 MG Oral Tablet (Aldactone) Take 0.5 Tablets by mouth in the morning. 0 Discontinued Lidocaine 5 % External Patch Place 1 Patch topically on the skin daily as needed for Other or Pain, Moderate (rib pain). 0 12/25/19 23 023 Discontinued Cyclobenzaprine HCl 5 MG Oral Tablet (Flexeril) Take 1 Tablet by mouth 2 times a day as needed for Muscle spasms. 0 12/25/19 23 023 Discontinued(Me dication List Clean Up) Sodium Chloride 7 % Inhalation Nebulization Solution Inhale 4 mL via nebulizer in the morning and 4 mL before bedtime. 0 12/25/19 23 023 Discontinued guaiFENesin ER 600 MG Oral Tablet Extended Release 12 Hour Take 1 Tablet by mouth in the morning and 1 Tablet before bedtime. 0 12/25/19 23 023 Discontinued Fluconazole 150 MG Oral Tablet (Diflucan)Indicati ons:Yeast vaginitis Take 1 Tablet by mouth once for 1 dose. 1 Tablet 0 12/29/19 23 023 Discontinued oxyCODONE HCl 5 MG Oral Tablet (Oxy IR)Indications:Mul tiple closed fractures of ribs of both sides with routine healing, subsequent encounter Take 1 Tablet by mouth every 6 hours as needed for Pain, Severe. Continued script. 30 Tablet 0 12/29/19 23 023 Discontinued(Me dication List Clean Up) Ferrous Sulfate 325 (65 Fe) MG Oral Tablet (Feosol) Take 1 Tablet by mouth 2 times a day with morning and evening meals. 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 Test performed by Bibiana KNOCKDOWN MAN CPFT Old [place] (myocardial infarction) 02/21/2019 Bilateral [...] osteoporosis 07/03/2018 Reactive depression 11/17/2017 Atherosclerosis of [place] co ronary artery of [place] heart without angina pectoris 07/22/2015 Overview: Single [...] rinse after steroid. Test performed by Bibiana KNOCKDOWN MAN CPFT GENERAL OSTEOARTHROSIS BMI 32.0-32.9,adult Tobacco use disorder Hyperlipidemia with target LDL less than 70 Overview: ICD-10 update of inactive term RSD upper limb Overview: left arm Generalized anxiety disorder documented as of this encounter (statuses as of 04/04/2023) Resolved Problems Problem Noted Date Diagnosed Date [...] ISCHEMIC HRT DIS NOS Coronary atherosclerosis of [place] coronary artery 11/24/2016 Tobacco abuse 11/17/2017 documented as of this encounter (statuses as of 04/04/2023) Immunizations Name Administration Dates Next Due COVID-19 [...] you have serious difficulty h earing? No 11/04/2022 Are you blind or do you have serious difficulty seeing, even when wearing glasses? No 11/04/2022 Do you have serious difficul ty walking or climbing stairs? (5 years old or older) Yes 11/04/2022 Do you have difficulty dress ing or bathing? (5 years old or older) No 11/04/2022 Because of a physical, menta l, or emotional condition, do you have difficulty doing errands alone such as visiting a doctor s office or shopping? (15 years old or older) No 11/05/19 Cognitive Status Response Date of Assessm ent Because of a physical, menta l, or emotional condition, do you have serious difficulty concentrating, remembering, or making decisions? (5 years old or older) No 11/04/2022 documented as of this encounter Miscellaneous Notes * Telephone Encounter - Renetta Hall CMA - 01/07/2023 10:43 AM EDT I called her daughter Diamond because I couldn't reach her and she is currently inpatient at [facility]. * Telephone Encounter - Courtney Restrepo MD - 01/05/2023 1:17 PM EDT Carlotta needs to be seen in Acute appt in clinic for fall, possible xrays, and constipation. She is very complicated right now. Please schedule her within 1-2 days please. * Telephone Encounter - Adriana Pinto LPN - 01/03/2023 4:22 PM EDT Concerns Alejandro DOTY, Calling from: [facility] Report/Concerns of: Fall Symptoms: lost balance while try to wt herself Vitals: T97.2 P68 RR18 BP 118/60 SP O2 98 2 liters BS 140 Narrative:pt had fall in bathroom 01/02 pt had lost her balance while attempting to wt herself. Pt landed on tailbone and right hip. she is wt bearing. Pain is 9 at worse when sitting up on edge of bed or walking , tylenol helps. She is not taking the oxycodone during the day, daughter is only giving at night, as pt has been drowsy and sleeping a lot. She also has been dealing with constipation. L ast BM was 12/31 hard medium in size. Daughter has been giving colace and miralax to help with constipation. Alejandro inquired if maybe cyclobenzaprine is also causing the drowsiness. I also noted pt was to startiron supplement, alejandro and daughter were not aware of this order. Daughter will picker/puller iron supplement from pharm. Also to contribute to constipation pt has not been eating well. She had requested pizza the other day but only ate one bite. Today during visit, pt had green beans, sm portion of potatoes and is eating chicken breast. Pt had c/o of nausea while changing wound vac today but this had subsided without medication. No c/o currently while eating. Pt does have zofran at home to use. Fyi pt has stopped using nicotine patches. Alejandro inquired if xray could be order to check pt's tailbone and right hip to rule out damage from fall. I offered to schedule appt in the office, nothing avail until Tuesday. Alejandro inquiredif orders could be placed and sent to [facility]? She also requested recommendation for constipation and recommendation for drowsiness during the day. Call back daughter Diamond with any advice [phone] documented in this encounter Plan of Treatment Upcoming Encounters Date Type Department Care Team (Late st Contact Info) Description 04/06/2023 2:10 PM EST Office Visit Vascular Surgery, [facility] [address] [facility] [place] [address] Nnamdi King MD [address] [facility] [place] [address] 06/08/2023 11:00 AM EDT Office Visit Cardiology, [facility] [address] [place] [address] Frantz Herrera MD [address] [facility] [address] 10/10/2023 4:00 PM EDT Office Visit Nephrology, [facility] [address] [place] [address] Charla Potter MD [address] [place] [address] Scheduled Procedures Name Priority Associated Diagnoses Date/Ti me ESOPHAGOGASTRODUODENOSCOPY ( EGD), FLEXIBLE, TRANSORAL, DIAGNOSTIC Recall Pendleton's esophagus Health Maintenance Due Date Last Done Comments Hepatitis B (1 of 3 - Risk [...] D LEVEL ONCE IN A LIFETIME-USE SMARTSET# [id number] Completed 10/16/2021, 12/27/2018 Alpha-1 Antitrypsin Discontinued GARDASIL-HPV IMMUNIZATION SERIES Aged Out No longer eligible based on patient's age to complete this topic MENINGOCOCCAL (MENACTRA/MENVEO) Aged Out No longer eligible based on patient's age to complete this topic Zoster Vaccines Discontinued documented as of this encounter Medical Devices Implanted Type Area Inspector Type Device Identifier Shelf Expiration Date Model / Serial / Lot Stent Graft Icast [id number] - [id number] - [id number] Implanted:Qty : 1 on 04/14/2022 by Nnamdi King MD [place] [facility] [place]/A: Mesenteric Artery GETINGE : MAQUET [id number] 02/21/2023 [id number] / [id number] / [id number] Description:implanted in SMA Stent Howie 3.0x15 Rx - [id number] Implanted:Qty : 1 on 11/12/2022 by Patrice Jose MD at [place] [facility] [place] [employer] : VASCULAR [id number] 11/28/2023 [id number] / / [id number] documented as of this encounter Advance [...] patient or by statute hierarchy) Care Teams Yarn Sorter Relationship Specialty Start Date End Date Courtney Restrepo MD [address] [place] [address] [place] [address] PCP - General Family Medicine 10/17/19 documented as of this encounter
--- OUTSIDE RECORDS SUMMARY | 2023-08-31 06:49 | External Medical Summary | Summary of Care ---
Author Name Unknown Organization [facility] Address [address] [place] [address] Phone [phone] Care Team Providers Care Emergency Preparedness Manager Name Role Phone Courtney Restrepo MD Primary Care Prov ider Reason for Visit * Reason Onset Date Comments Referral 04/01/2023 [facility] Discharge ( DM ) Encounter Details Date Type Department Care Team (Late st Contact Info) Description 04/01/2023 Telephone Pharmacy, [address] [place] [address] [place] [address] Referral ([facility] Discharge ( DM ) ) Allergies Active Allergy Reactions Criticality Noted [...] edema Nitroglycerin Hypotension 12/20/2018 Penicillins Nausea/vomiting 05/17/2007 [place] Hives 10/02/2018 Propoxyphene Edema face/lips/tongue,Hiv es 06/26/2009 documented as of this encounter (statuses as of 04/01/2023) Medications Medication Sig Dispensed Refills Start Date [...] Take 1 Capful by mouth in the morning. 0 Active Spironolactone 25 MG Oral Tablet [...] Pain, Severe. 30 Tablet 0 03/04/2023 Active documented as of this encounter (statuses as of 04/01/2023) Active Problems Problem Noted Date Diagnosed Date [...] rinse after steroid. Test performed by Bibiana CONDUIT INSTALLER CPFT Old [place] (myocardial infarction) 02/21/2019 Bilateral [...] osteoporosis 07/03/2018 Reactive depression 11/17/2017 Atherosclerosis of [place] co ronary artery of [place] heart without angina pectoris 07/22/2015 Overview: Single [...] rinse after steroid. Test performed by Bibiana CONDUIT INSTALLER CPFT GENERAL OSTEOARTHROSIS BMI 32.0-32.9,adult Tobacco use disorder Hyperlipidemia with target LDL less than 70 Overview: ICD-10 update of inactive term RSD upper limb Overview: left arm Generalized anxiety disorder documented as of this encounter (statuses as of 04/01/2023) Resolved Problems Problem Noted Date Diagnosed Date [...] ISCHEMIC HRT DIS NOS Coronary atherosclerosis of [place] coronary artery 11/24/2016 Tobacco abuse 11/17/2017 documented as of this encounter (statuses as of 04/01/2023) Immunizations Name Administration Dates Next Due COVID-19 [...] encounter Miscellaneous Notes * Telephone Encounter - Randi Monahan PHARM Tech - 04/01/2023 3:16 PM EST Carlotta has not contacted the clinic to schedule/reschedule an appointment for diabetes management per referral from PCP despite multiple attempts to do so by our team. Patient is discharged from [facility] services at this time. Thank you, Randi Monahan Director Of Sports Performance [facility] Services ([facility]) (formerly Telepharmacy) [phone] 04/01/2023,3:17 PM documented in this encounter Plan of Treatment Upcoming Encounters Date Type Department Care Team (Late st Contact Info) Description 04/06/2023 2:10 PM EST Office Visit Vascular Surgery, [facility] [address] [place] [address] Nnamdi King MD [address] [place] [address] 06/08/2023 11:00 AM EDT Office Visit Cardiology, [facility] [address] [place] [address] Frantz Herrera MD [address] [place], [place] [address] 10/10/2023 4:00 PM EDT Office Visit Nephrology, [facility] [address] [place] [address] Charla Potter MD [address] [facility] [place] [address] Scheduled Procedures Name Priority Associated Diagnoses [...] D LEVEL ONCE IN A LIFETIME-USE SMARTSET# [id number] Completed 10/16/2021, 12/27/2018 Alpha-1 Antitrypsin Discontinued GARDASIL-HPV IMMUNIZATION SERIES Aged Out No longer eligible based on patient's age to complete this topic MENINGOCOCCAL (MENACTRA/MENVEO) Aged Out No longer eligible based on patient's age to complete this topic Zoster Vaccines Discontinued documented as of this encounter Medical Devices Implanted Type Area Electrical Control Assembler Device Identifier Shelf Expiration Date Model / Serial / Lot Stent Graft Icast [id number] - [id number] - [id number] Implanted:Qty : 1 on 04/14/2022 by Nnamdi King MD at [place] [facility] [place] N/A: Mesenteric Artery GETINGE : [id number] 02/21/2023 [id number] / [id number] / [id number] Description:implanted in SMA Stent Howie 3.0x15 Rx - [id number] Implanted:Qty : 1 on 11/12/2022 by Patrice Jose MD at [facility]ARDIAC [facility] [facility] [place] [employer] : VASCULAR [id number] 11/28/2023 [id number] / / [id number] documented as of this encounter Advance [...] patient or by statute hierarchy) Care Teams Emergency Preparedness Manager Relationship Specialty Start Date End Date Courtney Restrepo MD [address] [place] [address] [place] [address] PCP - General Family Medicine 10/17/19 documented as of this encounter
--- OUTSIDE RECORDS SUMMARY | 2023-08-31 06:49 | External Medical Summary | Summary of Care ---
Author Name Unknown Organization [facility] Address [address] [place] [address] Phone [phone] Care Team Providers Care Cake Wrapper Name Role Phone Courtney Restrepo MD Primary Care Prov ider Reason for Referral * Evaluate & Treat - Unlimited Visits (Within 10 days (routine)) - Authorized Specialty Diagnoses / Procedures Referred By Contact Referred To Contact Cardiovascular Medicine / Cardiology Diagnoses Acute on chronic systolic congestive heart failure (HCC) Severe mitral regurgitation Kyle Olivares PA-C [address] [place] [address] Referral ID Status Reason Start Date Expiration Date Visits Requested Visits Authorized [id number] Authorized Specialty Services Required 04/06/2023 999 999 Question Answer Referral Priority Within 10 days (routine) Where should this appointment be scheduled? [facility] To which of the following clinics are you referring your patient? [facility] Comments PAD patient, followed by [facility] Surgery @ [facility] Fall 2022 hospital course complicated by cardiac arrest x 2 and Covid infection Cardiac cath demonstrated 90% ostial LAD disease, chronic occlusion of the RCA AYLIN demonstrated severe mitral regurgitation, ejection fraction 50% Pt seen by Cardiac Surgery. She declined CABG and MVR due to high risk for surgery S/P PCI to left main/LAD on 11/12/22 Patient requests Cardiology F/U @ [facility] Reason for Visit * Reason Comments Follow Up Encounter Details Date Type Department Care Team (Latest Contact Info) Description 04/06/2023 2:10 PM EST Office Visit Vascular Surgery, [facility] [address] [facility] [address] Nnamdi King MD [address] [facility] [place] [address] PVD (peripheral vascular disease) ([facility])*; Mesenteric ischemia, chronic ([facility]); Bilateral carotid artery stenosis; Acute on chronic systolic congestive heart failure ([facility]); Severe mitral regurgitation Allergies Active Allergy Reactions Criticality Noted Date [...] edema Nitroglycerin Hypotension 12/20/2018 Penicillins Nausea/vomiting 05/17/2007 Nulato Hives 10/02/2018 Propoxyphene Edema face/lips/tongue,Hiv es 06/26/2009 documented as of this encounter (statuses as of 04/06/2023) Medications Medication Sig Dispensed Refills Start Date [...] than 8.0% ([facility]) Use to test glucose daily. E11.9 100 Each 5 11/29/2022 Active OneTouch Verio w/Device KitIndications:Type 2 diabetes mellitus with hemoglobin A1c goal of less than 8.0% ([facility]) Use to test glucose daily. [...] with morning and evening meals. 0 Active documented as of this encounter (statuses as of 04/06/2023) Active Problems Problem Noted Date Diagnosed Date [...] steroid. Test performed by Bibiana PROFESSOR OF PSYCHIATRY CPFT Old AR (myocardial infarction) 02/21/2019 Bilateral [...] osteoporosis 07/03/2018 Reactive depression 11/17/2017 Atherosclerosis of [place] co ronary artery of [place] heart without angina pectoris 07/22/2015 Overview: [...] steroid. Test performed by Bibiana PROFESSOR OF PSYCHIATRY CPFT GENERAL OSTEOARTHROSIS BMI 32.0-32.9,adult Tobacco use disorder Hyperlipidemia with target LDL less than 70 Overview: ICD-10 update of inactive term RSD upper limb Overview: left arm Generalized anxiety disorder documented as of this encounter (statuses as of 04/06/2023) Resolved Problems Problem Noted Date Diagnosed Date [...] ISCHEMIC HRT DIS NOS Coronary atherosclerosis of [place] coronary artery 11/24/2016 Tobacco abuse 11/17/2017 documented as of this encounter (statuses as of 04/06/2023) Immunizations Name Administration Dates Next Due COVID-19 [...] Sign Reading Time Taken Comments Blood Pressure 122/70 04/06/2023 2:30 PM EST Pulse 78 04/06/2023 2:30 PM EST Temperature 36.3 C (97.3 F) 04/06/2023 2:30 PM ES T Respiratory Rate - - Oxygen Saturation - - Inhaled Oxygen Concentration - - Weight 69.6 kg (153 lb 6.4 oz) 04/06/2023 2:30 P M EST Height - - Body Mass Index 27.61 02/11/2023 10:02 AM EST documented in this [...] shopping? (15 years old or older) No 10/28/20 23 Cognitive Status Response Date of Assessm ent Because of a physical, menta l, or emotional condition, do you have serious difficulty concentrating, remembering, or making decisions? (5 years old or older) No 01/08/2023 documented as of this encounter Progress Notes * Kyle Olivares PA-C - 04/06/2023 2:10 PM EST Images from the original note were not included. Date of Service: 03/21/2023 1:37 PM Carlotta Khna is a 72 year old female. Referring Physician: Cassandra Hart MD (Gastroenterology) Courtney Jay MD (PCP), Kyle Chapa DO (Cardiology) Chief Complaint: F/U visit, for PAD & wound infection (Also follow her for carotid disease and mesenteric ischemia) Since patient's last interaction with us (Oct 2022) patient has been admitted to outside hospitals with CHF, Covid pneumonia, urosepsis and acute renal failure [facility] present for today's visit HPI: Ms. Khan is a dedicated smoker with known hx of PAD and carotid disease, whom we have cared for in the past, but has had care at multiple other facilities in the past and in the interim. She returned to our care 11/14/19. MESENTERIC ARTERIAL DISEASE: Reports post prandial abdominal pain since 2014. Reports other GI issues including: GERD, ulcers, GI bleed. She has required transfusions for GI bleed in the past. No cause was found for the GI bleed despiteupper and lower endoscopy. 01/03/20 CTA suggested SMA thrombus, prompting GI to refer her to Vascular Surgery. S/P SMA stent 04/14/[address] King for chronic mesenteric ischemia CAROTID DISEASE: S/P right CEA in [id number] in [place]. 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 Her symptoms were left mouth weakness causing her drool, and left arm and leg weakness. During the workup for her CVA, an 80-99% right carotid restenosis was noted. S/P redo right CEA by Dr. Bynum 08/19/08. She has left sided residual weakness. PERIPHERAL VASCULAR DISEASE: Ms. Khan is s/p a fem-fem bypass in [place] in approximately 2004 following a cardiac cath that caused her right leg to "go ." A left to right fem-fem. On 11/06/18 she had a thrombectomy of the fem-fem bypass and patch angioplasty of the distal anastamosis (right groin) by Dr. Jara at [facility], performed for ischemic right leg. S/p left MAINTENANCE SUPERVISOR ELECTRICAL GUIDANCE AND CONTROL SYSTEM ENGINEER 04/14/[address] King during time of SMA stent placement On 09/23/22, s/p angioplasties of SUZANNE and RSFA/Pop Artery by Dr. King for critical limb ischemia with gangrene right foot with left to right fem-fem bypass graft with stenosis in left external iliac artery Duplex shows left femoral stenosis Now she has a right 3rd toe gangrenous toe developing. Patient admitted to [facility] 11/04-11/24/22 S/P debridement & application of VAC of suprapubic abscess surrounding R>L PTFE Fem-Fem bypass and partial amputation of right 3rd toe due to gangrene on 11/04/[address] King S/P repeat debridement & application of VAC of suprapubic abscess surrounding R>L PTFE Fem-Fem bypass on 11/16/[address] King Hospital course complicated by cardiac arrest x 2 and Covid infection Cardiac cath demonstrated 90% ostial LAD disease, chronic occlusion of the RCA AYLIN demonstrated severe mitral regurgitation, ejection fraction 50% Pt seen by Cardiac Surgery. She declined CABG and MVR due to high risk for surgery S/P PCI/stent to left main/LAD on 11/12/22 OR cultures revealed Kayla Pt on po Fluconazole and IV Zosyn (via R arm PICC) until 12/16/22 Pt discharged to home [facility] coming 3 times per week for VAC changes No fevers or chills Tolerating antibiotic and antifungal Discharged on 2 liters NCO2 Has some upper resp congestion but not SOB @ rest or CP No claudication or rest pain She has not smoked since going home!!! LEFT AXILLARY ARTERY OCCLUSION: She had several studies in the past that suggest left axillary occlusion. No symptoms of ischemia left hand. Chronic left hemiparesis. Current Outpatient Medications Medication Sig Dispense Refill [...] for Shortness of Breath. 100 mL 3 Lidocaine 4 % External Patch (Aspercreme) Place 1 Patch over 12 hours topically on the skin daily. 30 Patch 0 Dicyclomine HCl 10 MG Oral Capsule (Bentyl) Take 1 Capsule by mouth 3 times a day as needed for Cramping. 90 Capsule 2 MobilewallaTouch Delica Lancets 30G Use to test glucose daily. E11.9 100 Each 5 OneTouch Verio w/Device Kit Use to test glucose daily. E11.9 1 Kit 0 Trelegy Ellipta 100-62.5-25 MCG/ACT Aerosol Powder Breath Activated Inhale 1 puff as directed once a day 1 inhalation daily. Rinse mouth after every use. 60 Blister Dosing Unit 5 Sodium Chloride 4 MEQ/ML Oral Solution Take by mouth. NovoLOG FlexPen 100 UNIT/ML Subcutaneous Solution Pen-injector [...] 1 Capful by mouth in the morning. Spironolactone 25 MG Oral Tablet (Aldactone) Take 2 Tablets by mouth in the morning. 180 Tablet 3 Align Extra Strength Oral Capsule Take 1 Capsule by mouth every evening. OneTouch Verio In Vitro Strip (Glucose Blood) Test glucose once daily E11.9 100 Strip 5 oxyCODONE HCl 5 MG Oral Tablet (Oxy IR) Take 1 Tablet by mouth every 6 hours as needed for Pain, Severe. 30 Tablet 0 No current facility-administered medications for [...] and periorbital edema Nitroglycerin Hypotension Penicillins Nausea/vomiting Nulato Hives Propoxyphene Edema face/lips/tongue and Hives Patient [...] than 8.0% ([facility]) E11.9 Controlled substance agreement signed Z79.899 Generalized anxiety disorder F41.1 Atherosclerosis of [place] coronary artery of [place] heart without angina pectoris I25.10 Reactive depression F32.9 Senile osteoporosis M81.0 PVD (peripheral vascular disease) ([facility]) I73.9 Iron deficiency anemia due to chronic blood loss D50.0 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 K22.70 Chronic superficial gastritis with bleeding K29.31 Gastrointestinal hemorrhage with melena K92.1 Lung nodules R91.8 Severe mitral regurgitation I34.0 Old AR (myocardial infarction) I25.2 Bilateral carotid artery stenosis I65.23 DM type 2 with diabetic peripheral neuropathy ([facility]) E11.42 Right hand tendonitis M77.8 Generalized arthritis M19.90 Hand arthritis M19.049 Centrilobular emphysema ([facility]) J43.2 Polyneuropathy in other diseases classified elsewhere ([facility]) G63 Superior mesenteric artery stenosis ([facility]) 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 ([facility]) I77.1 Major depressive disorder, recurrent, unspecified ([facility]) F33.9 Non-proliferative diabetic retinopathy, both eyes ([facility]) E11.3293 Recurrent major depressive disorder, in partial remission ([facility]) F33.41 Mesenteric ischemia, chronic ([facility]) K55.1 COPD, group D, by GOLD 2017 classification ([facility]) J44.9 Chronic ischemic heart disease I25.9 Advanced directives, counseling/discussion Z71.89 Type 2 diabetes mellitus with peripheral artery disease ([facility]) E11.51 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- dominant side ([facility]) I69.354 Wound drainage L24.A9 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 Hypertensive heart disease with acute on chronic diastolic congestive heart failure ([facility]) I11.0, I50.33 History of cardiac arrest Z86.74 Shock ([facility]) R57.9 PRAKASH (acute kidney injury) ([facility]) N17.9 Lactic acidosis E87.20 Transaminitis R74.01 Encephalopathy acute G93.40 Pathological fracture of sacral vertebra due to osteoporosis ([facility]) M80.08XA Other disorders of phosphorus metabolism E83.39 Past Medical History: Diagnosis Date Asthma, allergic Benign neoplasm of colon 01/2009 3 mm tubular adenoma in sigmoid, f/u colonoscopy in 5 yrs BMI 32.0-32.9,adult Calculus of kidney spontanteous passage Cardiac arrest ([facility]) 11/04/2022 history Carotid artery stenosis, asymptomatic left Carotid Stenosis, infarct w/in 8 wks 08/20/2008 Cellulitis of right foot 07/02/2019 [facility] for severe pain, cellulitis right foot Cerebrovascular Dz, 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 Pt with hx of embolic stroke. L hemiplegia Chronic ischemic heart disease Contusion of hand, right 05/21/2016 Coronary atherosclerosis of [place] coronary artery DM type 2, goal A1c below 7 1993 after being on steroids for a while Fracture of three ribs on left side 02/25/2015 left 3,4,5 Generalized anxiety disorder Generalized osteoarthritis Hidradenitis had skin grafts under both arms by Dr Burrell Hyperlipidemia LDL goal < 70 Hypoxia 02/28/2015 [place], related to hypoventilation from rib fx pain Intracerebral hemorrhage (HCC) 07/03/2008 Need for hepatitis C screening test 08/08/2014 negative Obesity, BMI not known used to weigh 280 Old myocardial infarct x 2 with stent placement OTHER LATE EFFECTS CEREBROVASCULAR DISEASE 07/03/2008 RSD upper limb left arm Scabies 06/07/2017 Treated in [place] ER. Senile osteoporosis 07/03/2018 high risk Simple [...] performed by Nnamdi King MD at OR [facility] APPENDECTOMY W/OTHER PROCEDURE CARDIAC ANGIOPLASTY, PERCUTANEOUS, 1 ARTERY Bilateral 11/12/2022 PTCA, CARDIAC ANGIOPLASTY, PERCUTANEOUS, 1 ARTERY performed by Patrice Jose MD at CARDIAC LABS [facility] COLONOSCOPY THRU STOMA, W/BIOPSY 01/2009 adenomatous polyp, f/u colonoscopy in 5 yrs COLONOSCOPY, DIAGNOSTIC (RECTUM) 07/13/2018 poor prep, repeat 6 mo/COLONOSCOPY FLEXIBLE PROXIMAL DIAGNOSTIC performed by Cassandra Hart MD at ENDOSCOPY [facility] COLONOSCOPY, DIAGNOSTIC (RECTUM) 09/27/2018 6 mm descending tubular adenoma, performed by Cassandra Hart MD at ENDOSCOPY [facility] COMPOSITE SKIN GRAFT b/l axilla, donor site b/l thighs CORONARY ANGIOGRAPHY W/LEFT HEART CATH N/A 11/10/2022 CORONARY ANGIOGRAPHY W/LEFT HEART CATH performed by Patrice Jose MD at CARDIAC LABS [facility] CT ABDOMEN/PELVIS 09/28/[address] [...] performed by Cassandra Hart MD at ENDOSCOPY [facility] EGD, FLEXIBLE, DIAGNOSTIC 01/19/2019 gastric irritation on /[facility] EGD, FLEXIBLE, W/BIOPSY 09/27/2018 1 cm salmon colored mucosa suggestive of short segment Pendleton's, mild erythema antrum FEM/POP ARTERY REVASC W/ANGIOPLASTY Left 04/14/2022 FEM/POP ARTERY REVASC W/ANGIOPLASTY performed by Nnamdi King MD at OR [facility] FEM/POP ARTERY REVASC W/ANGIOPLASTY Right 09/23/2022 FEM/POP ARTERY REVASC W/ANGIOPLASTY performed by Nnamdi King MD at OR [facility] ILIAC ART. REVASCULARIZATION W/ANGIOPLASTY Left 09/23/2022 ILIAC ARTERY REVASCULARIZATION W/ANGIOPLASTY performed by Nnamdi King MD at OR [facility] CAROTID DUPLEX, BILATERAL 12/06/2012 Right carotid artery duplex examination indicates evidence of a less than 50% stenosis of the internal carotid artery. IR ARTERIOGRAM EXTREMITY BILATERAL 04/14/2022 ANGIOGRAPHY EXTREMITY BILATERAL performed by Nnamdi King MD at OR [facility] IR ARTERIOGRAM EXTREMITY BILATERAL N/A 09/23/2022 ANGIOGRAPHY EXTREMITY BILATERAL performed by Nnamdi King MD at OR [facility] IR STENT PLACEMENT, INITIAL ARTERY N/A 04/14/2022 NON LOWER EXTREMITY OR CAROTID STENT REVASCULARIZATION WITH RADIOLOGIC SUPERVISION AND INTERPRETATION performed by Nnamdi King MD at OR [facility] MAMMOGRAM SCREENING BILATERAL Bilateral 08/20/2014 almost entirely fat, category 1 normal MAMMOGRAM SCREENING BILATERAL Bilateral 05/12/2017 scattered fibroglandular densities category 1 normal MOBILE DXA 07/03/2018 Lumbar T -0.7, left femur T -2.9, high risk, treatment recommended NEG PRESSURE WOUND THERAPY DME </= 50 SQ CM N/A 11/04/2022 NEGATIVE PRESSURE WOUND THERAPY LESS THAN 50SQ CM performed by Nnamdi King MD at OR [facility] NEG PRESSURE WOUND THERAPY DME </= 50 SQ CM N/A 11/16/2022 NEGATIVE PRESSURE WOUND THERAPY LESS THAN 50SQ CM performed by Nnamdi King MD at OR [facility] NM HEPATOBILIARY SYSTEM WITH PHARMACOLOGIC INTERVENTION 10/18/2018 normal hepatic scan with normal GE ejection fraction PARTIAL AMPUTATION OF TOE Right 11/04/2022 AMPUTATION TOE INTERPHALANGEAL JOINT performed by Nnamdi King MD at OR [facility] PARTIAL HYSTERECTOMY PFT/BA BRONCHODILATOR N/A 03/11/2021 probably normal PFT with some airway reversibility PLACE INTRACORONARY STENT, FIRST VS [id number] REMOVE CATARACT, INSERT LENS PROSTH Left 01/27/2017 Dr Gunter REPAIR OF BLADDER NECK 1994 Dr Montesinos/needed redone due to infection SUBQ DEBRIDEMENT, FIRST 20 CM2 N/A 11/04/2022 DEBRIDEMENT SKIN AND SUBCUTANEOUS TISSUE performed by Nnamdi King MD at OR [facility] SUBQ DEBRIDEMENT, FIRST 20 CM2 N/A 11/16/2022 DEBRIDEMENT SKIN AND SUBCUTANEOUS TISSUE performed by Nnamdi King MD at OR [facility] SYNTH BYPASS, FEM-FEM 2004 fem-fem bypass, [place] THROMBOENDARECTOMY W/PATCH,NECK INCISION [id number] right CEA, [place] THROMBOENDARECTOMY W/PATCH,NECK INCISION 08/19/2008 right redo eversion carotid endarterectomy /Dr. Bynum TOOTH ROOT REMOVAL 01/23/2016 full mouth extraction, Dr Dmitry CALLAHAN BALLOON ANGIOPLASTY OPEN/PERC IMAGE 1ST ARTERY Right 04/14/2022 ANGIOPLASTY ARTERIAL (EXCEPT LOWER EXTREMITY) performed by Nnamdi King MD at OR [facility] US ABDOMEN COMPLETE 08/08/2018 normal VASC DUPLEX [...] Occupation: on disability Tobacco Use Smoking status: Former Packs/day: 0.25 Years: 50.00 Additional pack years: 0.00 Total pack years: 12.50 Types: Cigarettes Start date: 1962 Quit date: 11/04/2022 Years since quittin.3 Smokeless tobacco: Never Vaping Use Vaping Use: Never used Substance and Sexual Activity Alcohol use: No Drug use: No Sexual activity: Not on file Other Topics Concern Not on file Social History Narrative >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 Gastrointestinal: reports GI bleeds, reports reflux, reports ulcers, reports abdominal pain. Neurological: hx of right MCA CVA 2008, reports chronic left sided weakness. GENERAL MULTI-SYSTEM PHYSICAL EXAM: VITAL SIGNS: BP 122/70 (BP Site: Right Arm, BP Position: Sitting, BP Cuff Size: Regular) | Pulse 78| Temp 36.3 C (97.3 F) (Temporal Artery) | Wt 69.6 kg (153 lb 6.4 oz) | BMI 27.61 kg/m | BSA 1.75 m GENERAL: Normal grooming habits, no acute distress and appears stated age. NECK: No masses and Normal Thyroid. RESPIRATORY: respiratory effort normal and distant BS, some upper resp congestion CARDIOVASCULAR: RRR, no edema and no varicosities. GASTROINTESTINAL: no tenderness, protuberant and abdominal aorta not palpable. Healed suprapubic wound O LYMPHATIC: cervical lymph nodes normal and inguinial lymph nodes normal. SKIN: no ulcers, no rash, no induration, capillary refill normal and with dependent rubor on right.Right 3rd toe partial amp healed PSYCHIATRIC: orientation to time, place and person normal and recent and remote memory normal. EYES: conjunctivae normal, eye lids normal, pupils normal and irises normal. NEUROLOGIC: Cranial nerves intact, Motor function intact and Sensory exam intact PULSE SCALE: Carotid Right:----Bruit: Yes Left:----Bruit: No Radial Right: 0 Left: 0 Brachial Right: 0 Left: 0 Femoral Right: 1 Left: 0 Popliteal Right: 0 Left: 0 Dorsalis Pedis Right: 0, +Doppler signal Left: 0, +Doppler signal Posterior Tibial Right: 0, +Doppler signal Left: 0, +Doppler signal PULSE SCALE: 4=Aneurysmal; 3=Normal; 2=Diminished; 1=Barely Palpable; 0=Absent DIAGNOSTIC STUDIES: 02/14/23 FABIANA: 1.09/0.73 The above diagnostic images were directly visualized and independently interpreted by me on 04/06/2023 with results as above 08/31/22 FABIANA: 0.59/0.69 NOT accurate medial calcinosis [...] PAIGE 157/29, L bulb 330/54, LICA 307/77 CARDIAC STUDIES: Creatinine, U (mg/dL) Date Value 11/17/2021 59 Estimated Glomerular Filtration Rate (mL/min) Date Value 05/16/2013 >60.0 EGFR-OUTSIDE LAB (ML/MIN) Date Value 03/10/2023 58 (A) Hemoglobin A1C (%) Date Value 12/10/2022 7.1 (H) 04/09/2020 6.6 (H) The above clinical lab tests were reviewed by me on 12/06/2022 IMPRESSIONS: S/P debridement & application of VAC of suprapubic abscess surrounding R>L PTFE Fem-Fem bypass and partial amputation of right 3rd toe due to gangrene on 11/04/[address] King S/P repeat debridement & application of VAC of suprapubic abscess surrounding R>L PTFE Fem-Fem bypass on 11/16/[address] King Suprapubic wound healed Hospital course complicated by cardiac arrest x 2 and Covid infection Cardiac cath demonstrated 90% ostial LAD disease, chronic occlusion of the RCA AYLIN demonstrated severe mitral regurgitation, ejection fraction 50% Pt seen by Cardiac Surgery. She declined CABG and MVR due to high risk for surgery S/P PCI to left main/LAD on 11/12/22 OR cultures revealed Kayla Pt on po Fluconazole and IV Zosyn (via R arm PICC), completed 12/16/22 S/P angioplasties of SUZANNE and RSFA/Pop Artery on 09/23/[address] King for critical limb ischemia with gangrene right foot with left to right fem-fem bypass graft with stenosis in left external iliacartery S/P SMA stent and angioplasty of LCFA on 04/14/[address] King for chronic mesenteric ischemia (90% stenosis of SMA and 80% Celiac stenosis) S/P angioplasty of LCFA 04/14/[address] King for LFA stenosis (status post [id number] bypass grafting). Left carotid 50-60% stenosis, asymptomatic. Lesion is too distal for CEA, would need TCAR. S/P redo right CEA by Dr. Bynum 08/19/08 (initial right CEA in [place]); Patent on Jan 2020 CTA; vessel is small caliber. Right middle cerebral artery ischemic infarction 05/20 with hemorrhagic conversion 06/20. Residual left hemiparesis. Left axillary artery occlusion. Fem-fem graft patent on duplex. S/P thrombectomy of the fem-fem bypass and patch angioplasty of the distal anastamosis (right groin) by Dr. Jara at [facility] on 11/06/18, performed for ischemic right leg. Left to right fem-fem bypass in [place] in approximately 2004. 01/25/20 CTA: 12 mm right lung nodule - following with [facility] for multiple lungnodules. COPD/Emphysema COVID 12/04 Anemia. GI bleed CAD, hx of coronary stent and 11/12/22 PCI/stent to LM/LAD Moderate MR on 2022 AYLIN Patient seen by [facility] Cardiac Surgery, pt declined CABG/MVR due to high risk for surgery DM. Hyperlipidemia. Previously dedicated smoker, has not returned to smoking since recent hospital discharge Obesity. MESH in midline lower PLAN: The patient was counseled regarding the pathophysiology and natural history of mesenteric vascular disease, as well as the interventional and noninterventional therapeutic options. She remains asymptomatic The patient was counseled regarding the pathophysiology and natural history of carotid disease, as well as the symptoms of CVA/TIA/amaurosis fugax. No claudication, rest pain or ulcerations Continue Lipitor 40 mg daily for dyslipidemia Continue ASA 81 mg daily & Plavix 75 mg daily for coronary stent patency, graft patency, platelet inhibition RTC 6 months @ [facility] w/ Dr King, FABIANA, BLE Art Duplex, Carotid Duplex and Mesenteric Duplex 1-2 wks prior Patient requests Cardiology F/U @ [facility], OP consult placed The patient was seen and examined with Nnamdi King MD. Kyle Olivares MPAS, PA-C Section of Vascular and Endovascular Surgery [address] [address] I have reviewed the advanced practitioner's documentation, and I agree with, and take responsibility for the plan of care. She looks dramatically better than on prior visits Feet improved without ulcers Suprapubic wound healed ABIs looks good from 03/05 F/u 6 months with repeat vasc labs Nnamdi King MD Section of Vascular and [place] [address] [phone] documented in this encounter Nursing Notes * Demi Hutchins LPN - 04/06/2023 2:36 PM EST Reviewed the option of transferring scripts to [facility] pharmacy with patient and / or family. Demi Hutchins LPN documented in this encounter Plan of Treatment Upcoming Encounters Date Type Department Care Team (Late st Contact Info) Description 06/08/2023 11:00 AM EDT Office Visit Cardiology, [address] [place] [address] Frantz Herrera MD [address] [place] [address] 10/05/2023 7:30 AM EDT Imaging Vascular Lab, [address], [address] [place] [address] 10/05/2023 8:30 AM EDT Imaging Vascular Lab, [address], [address] [place] [address] 10/05/2023 10:00 AM EDT Imaging Vascular Lab, [address], [address] [place] [address] 10/05/2023 11:00 AM EDT Imaging Vascular Lab, [address] [place] [address] 10/10/2023 4:00 PM EDT Office Visit Nephrology, [address] [place] [address] Charla Potter MD [address] [place] [address] 10/12/2023 1:30 PM EDT Office Visit Vascular Surgery, [facility] [address] [place] [address] Nnamdi King MD [address] [place] [address] Scheduled Orders Name Type Priority Associated Diagnoses Orde r Schedule VASC DUPLEX CAROTID BILAT Medical Imaging Routine Bilateral carotid artery stenosis Ordered: 04/06/2023 VASC ANKLE BRACHIAL INDICES WITHOUT PPG (PAD) Medical Imaging Routine PVD (peripheral vascular disease) (HCC) Ordered: 04/06/2023 VASC MESENTERIC/CELIAC ART-COMP Medical Imaging Routine Mesenteric ischemia, chronic (HCC) Ordered: 04/06/2023 VASC [place] ART DUP BILAT LE Medical Imaging Routine PVD (peripheral vascular disease) (HCC) Ordered: 04/06/2023 Scheduled Procedures Name Priority Associated Diagnoses Date/Ti me ESOPHAGOGASTRODUODENOSCOPY ( EGD), FLEXIBLE, TRANSORAL, DIAGNOSTIC Recall Pendleton's esophagus Scheduled Referrals Name Type Priority Associated Diagnoses Orde r Schedule CARDIOLOGY REFERRAL OP Referral Within 10 days (routine) Acute on chronic systolic congestive heart failure (HCC) Severe mitral regurgitation Ordered: 04/06/2023 Health Maintenance Due Date Last Done Comments DISCUSS TOBACCO CESSATION (REFER TO SMARTSET #8897) 1950 Hepatitis B (1 of 3 - [...] D LEVEL ONCE IN A LIFETIME-USE SMARTSET# 61533 Completed 10/16/2021, 12/27/2018 Alpha-1 Antitrypsin Discontinued GARDASIL-HPV IMMUNIZATION SERIES Aged Out No longer eligible based on patient's age to complete this topic MENINGOCOCCAL (MENACTRA/MENVEO) Aged Out No longer eligible based on patient's age to complete this topic Zoster Vaccines Discontinued documented as of this encounter Medical Devices Implanted Type Area Foreign Agent Device Identifier Shelf Expiration Date Model / Serial / Lot Stent Graft Icast [id number] - [id number] - [id number] Implanted:Qty : 1 on 04/14/2022 by Nnamdi King MD at [place] [facility] [place] N/A: Mesenteric Artery GETINGE : MAANASTASIYAT [id number] 02/21/2023 [id number] / [id number] / [id number] Description:implanted in SMA Stent [place] 3.0x15 Rx - [id number] Implanted:Qty : 1 on 11/12/2022 by Patrice Jose MD at CARDIAC LABS [facility] [place] MEDTRONIC : VASCULAR [id number] 11/28/2023 [id number] / / [id number] documented as of this encounter Visit Diagnoses Diagnosis PVD (peripheral vascular disease) (HCC)- Primary Peripheral vascular disease, unspecified Mesenteric ischemia, chronic (HCC) Chronic vascular insufficiency of intestine Bilateral carotid artery stenosis Occlusion and stenosis of multiple and bilateral precerebral arteries without mention of cerebral infarction Acute on chronic systolic congestive heart failure (HCC) Acute on chronic systolic heart failure Severe mitral regurgitation Mitral valve disorders documented in this encounter Advance Directives Latest [...] patient or by statute hierarchy) Care Teams Cake Wrapper Relationship Specialty Start Date End Date Courtney Restrepo MD [address] [place] [address] [place] [address] PCP - General Family Medicine 10/17/19 documented as of this encounter
--- OUTSIDE RECORDS SUMMARY | 2023-08-31 06:50 | External Medical Summary | Summary of Care ---
Author Name Unknown Organization [facility] Address [address] [place] [address] Phone [phone] Care Team Providers Care Veneer Press Operator Name Role Phone Courtney Restrepo MD Primary Care Prov ider Reason for Visit * Reason Onset Date Comments Home Health 03/24/2023 Encounter Details Date Type Department Care Team (Late st Contact Info) Description 03/24/2023 Telephone Family [address] [address] Courtney Restrepo MD [address] [place] [address] [place] [address] Home Health Allergies Active Allergy Reactions [...] edema Nitroglycerin Hypotension 12/20/2018 Penicillins Nausea/vomiting 05/17/2007 [place] Hives 10/02/2018 Propoxyphene Edema face/lips/tongue,Hiv es 06/26/2009 documented as of this encounter (statuses as of 03/25/2023) Medications Medication Sig Dispensed Refills Start Date [...] as of this encounter (statuses as of 03/25/2023) Active Problems Problem Noted Date Diagnosed Date [...] rinse after steroid. Test performed by Bibiana TEACHER THEATER ARTS CPFT [place] (myocardial infarction) 02/21/2019 Bilateral [...] rinse after steroid. Test performed by Bibiana TEACHER THEATER ARTS CPFT GENERAL OSTEOARTHROSIS BMI 32.0-32.9,adult Tobacco use disorder Hyperlipidemia with target LDL less than 70 Overview: ICD-10 update of inactive term RSD upper limb Overview: left arm Generalized anxiety disorder documented as of this encounter (statuses as of 03/25/2023) Resolved Problems Problem Noted Date Diagnosed Date [...] as of this encounter (statuses as of 03/25/2023) Immunizations Name Administration Dates Next Due COVID-19 [...] Encounter - Jose Enrique Guo LPN - 03/25/2023 9:39 AM EST Orders signed and faxed New orders in PCP box to sign will fax after signed . PCP out of office until next week * Telephone Encounter - Yanni Charles LPN - 03/24/2023 9:08 AM EST Lynette from [facility] is calling to check on an order from 02/06/2023. No order in scans. Will re fax order from signature to [phone]. documented in this encounter Plan of Treatment Upcoming Encounters Date Type Department Care Team (Late st Contact Info) Description 04/06/2023 2:10 PM EST Office Visit Vascular Surgery, [facility] [address] [place] [address] Nnamdi King MD [address] [place] [address] 06/08/2023 11:00 AM EDT Office Visit Cardiology, [facility] 132 [place] [address] Frantz Herrera MD [address] [place] [address] 10/10/2023 4:00 PM EDT Office Visit Nephrology, [facility] [address] [facility] [place] [address] Charla Potter MD [address] [place] [address] Scheduled Procedures Name Priority Associated Diagnoses Date/Ti [...] D LEVEL ONCE IN A LIFETIME-USE SMARTSET# [id number] Completed 10/16/2021, 12/27/2018 Alpha-1 Antitrypsin Discontinued GARDASIL-HPV IMMUNIZATION SERIES Aged Out No longer eligible based on patient's age to complete this topic MENINGOCOCCAL (MENACTRA/MENVEO) Aged Out No longer eligible based on patient's age to complete this topic Zoster Vaccines Discontinued documented as of this encounter Medical Devices Implanted Type Area Structural Worker Device Identifier Shelf Expiration Date Model / Serial / Lot Stent Graft Icast [id number] - [id number] - [id number] Implanted:Qty : 1 on 04/14/2022 by Nnamdi King MD [place] [facility] [place]/A: Mesenteric Artery GETINGE : MAQUET [id number] 02/21/2023 [id number] / [id number] / [id number] Description:implanted in SMA Stent [place] 3.0x15 Rx - [id number] Implanted:Qty : 1 on 11/12/2022 by Patrice Jose MD at [facility] MEDTRONIC : VASCULAR [id number] 11/28/2023 [id number] / / [id number] 2 documented as of this encounter Advance [...] patient or by statute hierarchy) Care Teams Veneer Press Operator Relationship Specialty Start Date End Date Courtney Restrepo MD [address] [place] [address] [place] [address] PCP - General Family Medicine 10/17/19 documented as of this encounter
--- OUTSIDE RECORDS SUMMARY | 2023-08-31 06:50 | External Medical Summary | Summary of Care ---
Author Name Unknown Organization [facility] Address [address] [place] [address] Phone [phone] Care Team Providers Care Tubing Mill Setter Name Role Phone Courtney Restrepo MD Primary Care Prov ider Reason for Visit * Reason Comments eRx-Medication Refill Encounter Details Date Type Department Care Team (Late st Contact Info) Description 03/25/2023 Refill Family Medicine [address] [phone] Pia Agarwal, PA-C [address] [place] [address] Mesenteric ischemia, chronic (HCC) Allergies Active Allergy Reactions Criticality Noted [...] edema Nitroglycerin Hypotension 12/20/2018 Penicillins Nausea/vomiting 05/17/2007 [place] Hives 10/02/2018 Propoxyphene Edema face/lips/tongue,Hiv es 06/26/2009 documented as of this encounter (statuses as of 03/28/2023) Medications Medication Sig Dispensed Refills Start Date [...] less than 8.0% ([facility]) Use to test glucose daily. E11.9 100 Each 5 11/29/2022 Active OneTouch Verio w/Device KitIndications:Type 2 diabetes mellitus with hemoglobin A1c goal of less than 8.0% ([facility]) Use to test glucose daily. E11.9 [...] as of this encounter (statuses as of 03/28/2023) Active Problems Problem Noted Date Diagnosed Date [...] rinse after steroid. Test performed by Bibiana RETAIL MAINTENANCE TECHNICIAN CPFT [place] (myocardial infarction) 02/21/2019 Bilateral carotid artery stenosis [...] rinse after steroid. Test performed by Bibiana RETAIL MAINTENANCE TECHNICIAN CPFT GENERAL OSTEOARTHROSIS BMI 32.0-32.9,adult Tobacco use disorder Hyperlipidemia with target LDL less than 70 Overview: ICD-10 update of inactive term RSD upper limb Overview: left arm Generalized anxiety disorder documented as of this encounter (statuses as of 03/28/2023) Resolved Problems Problem Noted Date Diagnosed Date [...] as of this encounter (statuses as of 03/28/2023) Immunizations Name Administration Dates Next Due COVID-19 [...] encounter Miscellaneous Notes * Telephone Encounter - Santino Crandall [facility] - 03/28/2023 7:21 AM ESTRefused Prescriptions: Disp Refills Ondansetron HCl 4 MG Oral Tablet (Zofran) 20 Tab*2 Sig: Take 1 Tablet by mouth every 8 hours as needed for Nausea.Refused By: SANTINO CRANDALL LReason for Refusal: Course of treatment complete documented in this encounter Plan of Treatment Upcoming Encounters Date Type Department Care Team (Late st Contact Info) Description 04/06/2023 2:10 PM EST Office Visit Vascular Surgery, [facility] [address] [place] [address] Nnamdi King MD [address] [place] [address] 06/08/2023 11:00 AM EDT Office Visit Cardiology, [facility] 132 [facility] [place] [address] Frantz Herrera MD [address] [place] [address] 10/10/2023 4:00 PM EDT Office Visit Nephrology, [address] [place] [address] Charla Potter MD [address] [facility] [place] [address] Scheduled Procedures Name Priority Associated [...] D LEVEL ONCE IN A LIFETIME-USE SMARTSET# [id number] Completed 10/16/2021, 12/27/2018 Alpha-1 Antitrypsin Discontinued GARDASIL-HPV IMMUNIZATION SERIES Aged Out No longer eligible based on patient's age to complete this topic MENINGOCOCCAL (MENACTRA/MENVEO) Aged Out No longer eligible based on patient's age to complete this topic Zoster Vaccines Discontinued documented as of this encounter Medical Devices Implanted Type Area Biology Research Assistant Device Identifier Shelf Expiration Date Model / Serial / Lot Stent Graft Icast [id number] - [id number] - [id number] Implanted:Qty : 1 on 04/14/2022 by Nnamdi King MD at [place] [facility] [place] N/A: Mesenteric Artery GETINGE : STEVEANASTASIYAT [id number] 02/21/2023 [id number] / [id number] / [id number] Description:implanted in SMA Stent [place] 3.0x15 Rx - [id number] Implanted:Qty : 1 on 11/12/2022 by Patrice Jose MD at CARDIAC LABS [facility] MEDTRONIC : VASCULAR [id number] 11/28/2023 [id number] / / [id number] 2 documented as of this encounter Visit Diagnoses Diagnosis Mesenteric ischemia, chronic (HCC) Chronic vascular insufficiency of intestine documented in this encounter Advance Directives Latest [...] Agents on File Name Relationship Healthcare Agent [facility] Diamond Braxton Adult Child Health Care Repr esentative (appointed verbally by patient or by statute hierarchy) Care Teams Tubing Mill Setter Relationship Specialty Start Date End Date Courtney Restrepo MD [address] [place] [address] [place] [address] PCP - General Family Medicine 10/17/19 documented as of this encounter
--- OUTSIDE RECORDS SUMMARY | 2023-08-31 06:50 | External Medical Summary | Summary of Care ---
Author Name Unknown Organization [facility] Address [address] [place] [address] Phone [phone] Care Team Providers Care Housekeeper Home Name Role Phone Courtney Restrepo MD Primary Care Prov ider Reason for Visit * Reason Onset Date Comments Advice 03/10/2023 Encounter Details Date Type Department Care Team (Late st Contact Info) Description 03/10/2023 Telephone Family [address] [phone] Courtney Restrepo MD [address] [place] [address] [place] [address] Advice Allergies Active Allergy Reactions Criticality [...] edema Nitroglycerin Hypotension 12/20/2018 Penicillins Nausea/vomiting 05/17/2007 [place] Hives 10/02/2018 Propoxyphene Edema face/lips/tongue,Hiv es 06/26/2009 documented as of this encounter (statuses as of 03/10/2023) Medications Medication Sig Dispensed Refills Start Date [...] as of this encounter (statuses as of 03/10/2023) Active Problems Problem Noted Date Diagnosed Date [...] rinse after steroid. Test performed by Bibiana LETTERER CPFT [place] (myocardial infarction) 02/21/2019 Bilateral [...] osteoporosis 07/03/2018 Reactive depression 11/17/2017 Atherosclerosis of [place] co ronary artery of [place] heart without angina pectoris 07/22/2015 Overview: Single [...] rinse after steroid. Test performed by Bibiana LETTERER CPFT GENERAL OSTEOARTHROSIS BMI 32.0-32.9,adult Tobacco use disorder Hyperlipidemia with target LDL less than 70 Overview: ICD-10 update of inactive term RSD upper limb Overview: left arm Generalized anxiety disorder documented as of this encounter (statuses as of 03/10/2023) Resolved Problems Problem Noted Date Diagnosed Date [...] ISCHEMIC HRT DIS NOS Coronary atherosclerosis of [place] coronary artery 11/24/2016 Tobacco abuse 11/17/2017 documented as of this encounter (statuses as of 03/10/2023) Immunizations Name Administration Dates Next Due COVID-19 [...] encounter Miscellaneous Notes * Telephone Encounter - Dee Martinez LPN - 03/10/2023 10:50 AM EST Patient calling in to discuss upcoming appointments fr tomorrow. She wanted to know time and locations. No further questions at this time. documented in this encounter Plan of Treatment Upcoming Encounters Date Type Department Care Team (Late st Contact Info) Description 03/11/2023 8:00 AM EST Pharmacy Pharmacy, [address] [place] [address] [place] [address] 03/11/2023 2:00 PM EST Imaging Vascular Lab, [facility] [address] [facility] [place] [address] 03/22/2023 10:40 AM EST Office Visit Family Medicine [address] [place] [phone] Courtney Restrepo MD [address] [place] [address] [place] [address] 04/06/2023 2:10 PM EST Office Visit Vascular Surgery, [facility] 132 [facility] [place] [address] Nnamdi King MD [address] [facility] [address] 06/08/2023 11:00 AM EDT Office Visit Cardiology, [facility] 132 [facility] [place] [address] Frantz Herrera MD [address] [place] [address] 10/10/2023 4:00 PM EDT Office Visit Nephrology, [facility] 200 [facility] [place] [address] Charla Potter MD 400 [facility] [place] [address] Scheduled Procedures Name Priority Associated [...] 11/17/2023 11/16/2022 Depression Screening 02/11/2024 02/10/2023 GFR 02/18/2024 02/17/2023, 01/13, 02/02/2023, Additional history exists DTaP,Tdap,and Td Vaccines (3 - Td or Tdap) 07/15/2031 07/14/2021 (Declined), 07/27/2010 Pneumococcal Vaccine: 65+ Years Completed 10/27/2015, 08/08/2014, 05/30/2008 VITAMIN D LEVEL ONCE IN A LIFETIME-USE SMARTSET# [id number] Completed 10/16/2021, 12/27/2018 Alpha-1 Antitrypsin Discontinued GARDASIL-HPV IMMUNIZATION SERIES Aged Out No longer eligible based on patient's age to complete this topic MENINGOCOCCAL (MENACTRA/MENVEO) Aged Out No longer eligible based on patient's age to complete this topic Zoster Vaccines Discontinued documented as of this encounter Medical Devices Implanted Type Area South Asian History Professor Device Identifier Shelf Expiration Date Model / Serial / Lot Stent Graft Icast [id number] - [id number] - [id number] Implanted:Qty : 1 on 04/14/2022 by Nnamdi King [place] [facility] [place]: Mesenteric Artery GETINGE : MAANASTASIYAT [id number] 02/21/2023 [id number] / [id number] / [id number] Description:implanted in SMA Stent [place] 3.0x15 Rx - [id number] Implanted:Qty : 1 on 11/12/2022 by Patrice Jose MD [place] [facility] [employer] : VASCULAR [id number] 11/28/2023 [id number] / / [id number] documented as of this encounter Advance [...] patient or by statute hierarchy) Care Teams Housekeeper Home Relationship Specialty Start Date End Date Courtney Restrepo MD [address] [place] [address] [place] [address] PCP - General Family Medicine 10/17/19 documented as of this encounter
--- OUTSIDE RECORDS SUMMARY | 2023-08-31 06:50 | External Medical Summary | Summary of Care ---
Author Name Unknown Organization [facility] Address [address] [place] [address] Phone [phone] Care Team Providers Care Software Developer Name Role Phone Courtney Restrepo MD Primary Care Prov ider Reason for Visit * Reason Onset Date Comments Appointment 03/21/2023 Encounter Details Date Type Department Care Team (Late st Contact Info) Description 03/21/2023 Telephone Care Coordination and Integration [address] [place] [address] [facility] Nuclear Weapons Specialist [address] [place] [address] [place] [address] Appointment Allergies Active Allergy Reactions Criticality [...] edema Nitroglycerin Hypotension 12/20/2018 Penicillins Nausea/vomiting 05/17/2007 [place] Hives 10/02/2018 Propoxyphene Edema face/lips/tongue,Hiv es 06/26/2009 documented as of this encounter (statuses as of 03/21/2023) Medications Medication Sig Dispensed Refills Start Date [...] of less than 8.0% ([facility]) Units as per sliding scale 3 mL 3 02/04/2023 Active Insulin Glargine Solostar 100 UNIT/ML Subcutaneous Solution Pen-injector (Lantus SoloStar)Indications :Type 2 diabetes mellitus with hemoglobin A1c goal of less than 8.0% ([facility]) Inject 10 Units under the [...] of less than 8.0% ([facility]) Test glucose once daily E11.9 100 Strip 5 02/22/2023 Active oxyCODONE HCl 5 MG Oral Tablet (Oxy IR)Indications:Super ior mesenteric artery stenosis (HCC) Take 1 Tablet by mouth every 6 hours as needed for Pain, Severe. 30 Tablet 0 03/04/2023 Active documented as of this encounter (statuses as of 03/21/2023) Active Problems Problem Noted Date Diagnosed Date [...] rinse after steroid. Test performed by Bibiana COMMUNITY BOARD MEMBER CPFT Old [place] (myocardial infarction) 02/21/2019 Bilateral [...] osteoporosis 07/03/2018 Reactive depression 11/17/2017 Atherosclerosis of [place] co ronary artery of [place] heart without angina pectoris 07/22/2015 Overview: Single [...] rinse after steroid. Test performed by Bibiana COMMUNITY BOARD MEMBER CPFT GENERAL OSTEOARTHROSIS BMI 32.0-32.9,adult Tobacco use disorder Hyperlipidemia with target LDL less than 70 Overview: ICD-10 update of inactive term RSD upper limb Overview: left arm Generalized anxiety disorder documented as of this encounter (statuses as of 03/21/2023) Resolved Problems Problem Noted Date Diagnosed Date [...] ISCHEMIC HRT DIS NOS Coronary atherosclerosis of [place] coronary artery 11/24/2016 Tobacco abuse 11/17/2017 documented as of this encounter (statuses as of 03/21/2023) Immunizations Name Administration Dates Next Due COVID-19 [...] of this encounter Progress Notes * [facility] - 03/21/2023 9:01 AM EST Patient requesting to reschedule 03/22/22 PCP appointment. Please call patient back with new appt date/time. Thank you, Angy Ceballos [facility] documented in this encounter Miscellaneous Notes * Telephone Encounter - Margret Potts OSA - 03/21/2023 11:43 AM EST I spoke to Carlotta today, she doesn't want her appt cancelled tomorrow. She said she will be here. documented in this encounter Plan of Treatment Upcoming Encounters Date Type Department Care Team (Late st Contact Info) Description 03/22/2023 10:40 AM EST Office Visit Family Medicine [address] [phone] Courtney Restrepo MD [address] [place] [address] [place] [address] 04/06/2023 2:10 PM EST Office Visit Vascular Surgery, [address] [address] Nnamdi King MD [address] [place] [address] 06/08/2023 11:00 AM EDT Office Visit Cardiology, [address] [place] [address] Frantz Herrera MD [address] [place] [address] 10/10/2023 4:00 PM EDT Office Visit Nephrology, [facility] 200 [facility] [place] [address] Charla Potter MD [address] [place] [address] Scheduled Procedures Name Priority Associated Diagnoses [...] D LEVEL ONCE IN A LIFETIME-USE SMARTSET# [id number] Completed 10/16/2021, 12/27/2018 Alpha-1 Antitrypsin Discontinued GARDASIL-HPV IMMUNIZATION SERIES Aged Out No longer eligible based on patient's age to complete this topic MENINGOCOCCAL (MENACTRA/MENVEO) Aged Out No longer eligible based on patient's age to complete this topic Zoster Vaccines Discontinued documented as of this encounter Medical Devices Implanted Type Area Textile Science Technician Device Identifier Shelf Expiration Date Model / Serial / Lot Stent Graft Icast [id number] - [id number] - [id number] Implanted:Qty : 1 on 04/14/2022 [place]namdi [place] [facility]A: Mesenteric Artery GETINGE : MAQUET [id number] 02/21/2023 [id number] / [id number] / [id number] Description:implanted in SMA Stent Howie 3.0x15 Rx - [id number] Implanted:Qty : 1 on 11/12/2022 by Patrice Jose MD [place] [facility] [employer] : VASCULAR [id number] 11/28/2023 [id number] / / [id number] documented as of this encounter Advance [...] patient or by statute hierarchy) Care Teams Software Developer Relationship Specialty Start Date End Date Courtney Restrepo MD [address] [place] [address] [place] [address] PCP - General Family Medicine 10/17/19 documented as of this encounter
--- OUTSIDE RECORDS SUMMARY | 2023-08-31 06:51 | External Medical Summary | Summary of Care ---
Author Name Unknown Organization [facility] Address [address] [place] [address] Phone [phone] Care Team Providers Care Piano Case And Bench Assembler Name Role Phone Courtney Restrepo MD Primary Care Prov ider Reason for Visit * Reason Onset Date Comments Medication Refill 03/04/2023 Encounter Details Date Type Department Care Team (Late st Contact Info) Description 03/04/[address] [phone] Courtney Restrepo MD [address] [place] [address] [place], [place] [id number] Superior mesenteric artery stenosis (HCC) Allergies Active Allergy Reactions Criticality Noted [...] edema Nitroglycerin Hypotension 12/20/2018 Penicillins Nausea/vomiting 05/17/2007 [place] Hives 10/02/2018 Propoxyphene Edema face/lips/tongue,Hiv es 06/26/2009 documented as of this encounter (statuses as of 03/04/2023) Medications Medication Sig Dispensed Refills Start Date [...] s:COPD, group C, by GOLD 2017 classification ([facility]) Inhale 1 puff as directed once a day 1 inhalation daily. Rinse mouth after every use. 60 Blister Dosing Unit 5 11/29/2022 Active Sodium Chloride 4 MEQ/ML Oral Solution Take by mouth. 0 Active NovoLOG FlexPen 100 UNIT/ML Subcutaneous Solution Pen-injector (insulin aspart)Indications: Type 2 diabetes mellitus with hemoglobin A1c goal of less than 8.0% ([facility]) Units as per sliding scale 3 mL 3 02/04/2023 Active Insulin Glargine Solostar 100 UNIT/ML Subcutaneous Solution Pen-injector (Lantus SoloStar)Indication s:Type 2 diabetes mellitus with hemoglobin A1c goal of less than 8.0% ([facility]) Inject 10 Units under the skin [...] 8.0% ([facility]) Test glucose once daily E11.9 100 Strip 5 02/22/2023 Active oxyCODONE HCl 5 MG Oral Tablet (Oxy IR)Indications:Supe rior mesenteric artery stenosis (HCC) Take 1 Tablet by mouth every 6 hours as needed for Pain, Severe. 30 Tablet 0 03/04/2023 Active oxyCODONE HCl 5 MG Oral Tablet (Oxy IR)Indications:Supe rior mesenteric artery stenosis (HCC) Take 1 Tablet by mouth every 6 hours as needed for Pain, Severe. 30 Tablet 0 02/11/2023 3 Discontinu ed(Refill) documented as of this encounter (statuses as of 03/04/2023) Active Problems Problem Noted Date Diagnosed Date [...] rinse after steroid. Test performed by Bibiana MARINE OILER CPFT [place] (myocardial infarction) 02/21/2019 Bilateral [...] rinse after steroid. Test performed by Bibiana MARINE OILER CPFT GENERAL OSTEOARTHROSIS BMI 32.0-32.9,adult Tobacco use disorder Hyperlipidemia with target LDL less than 70 Overview: ICD-10 update of inactive term RSD upper limb Overview: left arm Generalized anxiety disorder documented as of this encounter (statuses as of 03/04/2023) Resolved Problems Problem Noted Date Diagnosed Date [...] as of this encounter (statuses as of 03/04/2023) Immunizations Name Administration Dates Next Due COVID-19 [...] 2:22 PM EDT Sexual Orientation Straight 06/16/2020 2 :22 PM EDT Job Start Date Occupation Industry [...] Telephone Encounter - Courtney Restrepo MD - 03/04/2023 11:02 AM ESTSigned Prescriptions: Disp Refills oxyCODONE HCl 5 MG Oral Tablet (Oxy IR) 30 Tab*0 Sig: Take 1 Tablet by mouth every 6 hours as needed for Pain, Severe. Authorizing Provider: COURTNEY RESTREPO * Telephone Encounter - HughjadeLeeanne LPN - 03/04/2023 10:35 AM EST Pending Prescriptions: Disp Refills oxyCODONE HCl 5 MG Oral Tablet (Oxy IR) 30 Tab*0 Sig: Take 1 Tablet by mouth every 6 hours as needed for Pain, Severe. Last Visit: 02/02/2023 (in office), 11/29/2022 (telemedicine) Next Visit: 03/08/2023 Last date the medication was ordered: 02/11/23 Patient Active Problem List Diagnosis Code Moderate persistent asthma without complication J45.40 GENERAL OSTEOARTHROSIS M15.9 Cerebrovascular disease, arteriosclerotic, post-stroke I67.2, Z86.73 ADVANCE DIRECTIVE INFORMATION BMI 32.0-32.9,adult Z68.32 Tobacco use disorder F17.200 Hyperlipidemia with target LDL less than 70 E78.5 RSD upper limb G90.519 Type 2 diabetes mellitus with hemoglobin A1c goal of less than 8.0% ([facility]) E11.9 Controlled substance agreement signed Z79.899 Generalized anxiety disorder F41.1 Atherosclerosis of eek coronary artery of eek heart without angina pectoris I25.10 Reactive depression F32.9 Senile osteoporosis M81.0 PVD (peripheral vascular disease) ([facility]) I73.9 Iron deficiency anemia due to chronic blood loss D50.0 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 K22.70 Chronic superficial gastritis with bleeding K29.31 Gastrointestinal hemorrhage with melena K92.1 Lung nodules R91.8 Severe mitral regurgitation I34.0 [place] (myocardial infarction) I25.2 Bilateral carotid artery stenosis I65.23 DM type 2 with diabetic peripheral neuropathy ([facility]) E11.42 Right hand tendonitis M77.8 Generalized arthritis M19.90 Hand arthritis M19.049 Centrilobular emphysema ([facility]) J43.2 Polyneuropathy in other diseases classified elsewhere ([facility]) G63 Superior mesenteric artery stenosis ([facility]) 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 ([facility]) I77.1 Major depressive disorder, recurrent, unspecified ([facility]) F33.9 Non-proliferative diabetic retinopathy, both eyes ([facility]) E11.3293 Recurrent major depressive disorder, in partial remission ([facility]) F33.41 Mesenteric ischemia, chronic ([facility]) K55.1 COPD, group D, by GOLD 2017 classification ([facility]) J44.9 Chronic ischemic heart disease I25.9 Advanced directives, counseling/discussion Z71.89 Type 2 diabetes mellitus with peripheral artery disease ([facility]) E11.51 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- dominant side ([facility]) I69.354 Wound drainage L24.A9 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 Hypertensive heart disease with acute on chronic diastolic congestive heart failure ([facility]) I11.0, I50.33 History of cardiac arrest Z86.74 Shock ([facility]) R57.9 PRAKASH (acute kidney injury) ([facility]) N17.9 Lactic acidosis E87.20 Transaminitis R74.01 Encephalopathy acute G93.40 Pathological fracture of sacral vertebra due to osteoporosis ([facility]) M80.08XA Other disorders of phosphorus metabolism E83.39 Labs: Lab Results Component Value Date/Time CREATININE - [facility] 0.8 02/17/2023 12:06 PM CREATININE - [facility] 0.8 04/09/2020 01:42 PM CREATININE MATILDA 19 04/09/2020 01:56 PM CREATININE MATILDA - [facility] 59 11/17/2021 02:54 PM CREATININE, RANDOM URINE - [facility] 136 01/18/2023 04:37 PM CREATININE, RANDOM URINE - [facility] 135 01/18/2023 04:37 PM CREATININE, RANDOM URINE - [facility] 64 12/07/2019 03:43 PM CREATININE-OUTSIDE LAB 0.82 01/26/2023 12:00 AM Lab Results Component Value Date/Time POTASSIUM - [facility] 4.9 02/17/2023 12:06 PM POTASSIUM - [facility] 4.3 04/09/2020 01:42 PM POTASSIUM POCT - [facility] 4.1 01/18/2023 01:37 AM POTASSIUM-OUTSIDE LAB 2.2 (A) 01/26/2023 12:00 AM Lab Results Component Value [...] Care Team (Late st Contact Info) Description 03/08/2023 4:00 PM EST [address] [phone] Christie Harrison PA-C [address] [place] [address] [place] [address] 03/11/2023 8:00 AM EST Pharmacy Pharmacy, [address] [place] [address] [place] [address] 03/22/2023 10:40 AM EST Office Visit Family Medicine [address] [place] [phone] Courtney Restrepo MD [address] [place] [address] [place] [address] 04/06/2023 2:10 PM EST Office Visit Vascular Surgery, [facility] [address] [facility] [place] [address] Nnamdi King MD [address] [facility] [place] [id number] 06/08/2023 11:00 AM EDT Office Visit Cardiology, [facility] [address] [place] [address] Frantz Herrera MD [address] [place] [facility] [place] [address] 10/10/2023 4:00 PM EDT Office Visit Nephrology, [facility] [address] [place] [address] Charla Potter MD [address] [facility] [place] [address] Scheduled Procedures Name Priority Associated Diagnoses Date/Ti [...] D LEVEL ONCE IN A LIFETIME-USE SMARTSET# [id number] Completed 10/16/2021, 12/27/2018 Alpha-1 Antitrypsin Discontinued GARDASIL-HPV IMMUNIZATION SERIES Aged Out No longer eligible based on patient's age to complete this topic MENINGOCOCCAL (MENACTRA/MENVEO) Aged Out No longer eligible based on patient's age to complete this topic Zoster Vaccines Discontinued documented as of this encounter Medical Devices Implanted Type Area [employer] Defence [employer] Device Identifier Shelf Expiration Date Model / Serial / Lot Stent Graft Icast [id number] - [id number] - [id number] Implanted:Qty : 1 on 04/14/2022 by Nnamdi King MD [place] [facility] [place]A: Mesenteric Artery GETINGE : MAQUET [id number] 02/21/2023 [id number] / [id number] / [id number] Description:implanted in SMA Stent [place] 3.0x15 Rx - [id number] Implanted:Qty : 1 on 11/12/2022 by Patrice Jose MD at [facility] [place] [employer] : VASCULAR [id number] 11/28/2023 [id number] / / [id number] documented as of this encounter Visit Diagnoses Diagnosis Superior mesenteric artery stenosis (HCC) Chronic vascular insufficiency of intestine documented [...] patient or by statute hierarchy) Care Teams Piano Case And Bench 

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
--- OUTSIDE RECORDS SUMMARY | 2023-08-31 06:51 | External Medical Summary | Summary of Care ---
Author Name Unknown Organization [facility] Address [address] [place] [address] Phone [phone] Care Team Providers Care Transport Operations Inspector Name Role Phone Courtney Restrepo MD Primary Care Prov ider Reason for Visit * Reason Onset Date Comments Home Health 03/09/2023 Encounter Details Date Type Department Care Team (Late st Contact Info) Description 03/09/2023 Telephone Family [address] [phone] Courtney Restrepo MD [address] [place] [address] [place] [address] Home Health Allergies Active Allergy Reactions [...] edema Nitroglycerin Hypotension 12/20/2018 Penicillins Nausea/vomiting 05/17/2007 [place] Hives 10/02/2018 Propoxyphene Edema face/lips/tongue,Hiv es 06/26/2009 documented as of this encounter (statuses as of 03/09/2023) Medications Medication Sig Dispensed Refills Start Date [...] A1c goal of less than 8.0% ([facility]) Use to test glucose daily. E11.9 100 Each 5 11/29/2022 Active OneTouch Verio w/Device KitIndications:Type 2 diabetes mellitus with hemoglobin A1c goal of less than 8.0% ([facility]) Use to test glucose daily. E11.9 1 Kit 0 11/29/2022 Active Trelegy Ellipta 100-62.5-25 MCG/ACT Aerosol Powder Breath ActivatedIndications :COPD, group C, by GOLD 2017 classification ([facility]) Inhale 1 puff as directed once a day 1 inhalation daily. Rinse mouth after every use. 60 Blister Dosing Unit 5 11/29/2022 Active Sodium Chloride 4 MEQ/ML Oral Solution Take by mouth. 0 Active NovoLOG FlexPen 100 UNIT/ML Subcutaneous Solution Pen-injector (insulin aspart)Indications:T ype 2 diabetes mellitus with hemoglobin A1c goal of less than 8.0% ([facility]) Units as per sliding scale 3 mL 3 02/04/2023 Active Insulin Glargine Solostar 100 UNIT/ML Subcutaneous Solution Pen-injector (Lantus SoloStar)Indications :Type 2 diabetes mellitus with hemoglobin A1c goal of less than 8.0% ([facility]) Inject 10 Units under the [...] A1c goal of less than 8.0% ([facility]) Test glucose once daily E11.9 100 Strip 5 02/22/2023 Active oxyCODONE HCl 5 MG Oral Tablet (Oxy IR)Indications:Super ior mesenteric artery stenosis (HCC) Take 1 Tablet by mouth every 6 hours as needed for Pain, Severe. 30 Tablet 0 03/04/2023 Active documented as of this encounter (statuses as of 03/09/2023) Active Problems Problem Noted Date Diagnosed Date [...] rinse after steroid. Test performed by [facility] PRINTED CIRCUIT BOARD PREASSEMBLER CPFT [place] (myocardial infarction) 02/21/2019 Bilateral [...] osteoporosis 07/03/2018 Reactive depression 11/17/2017 Atherosclerosis of [place] co ronary artery of [place] heart without angina pectoris 07/22/2015 Overview: Single [...] rinse after steroid. Test performed by [facility] PRINTED CIRCUIT BOARD PREASSEMBLER CPFT GENERAL OSTEOARTHROSIS BMI 32.0-32.9,adult Tobacco use disorder Hyperlipidemia with target LDL less than 70 Overview: ICD-10 update of inactive term RSD upper limb Overview: left arm Generalized anxiety disorder documented as of this encounter (statuses as of 03/09/2023) Resolved Problems Problem Noted Date Diagnosed Date [...] ISCHEMIC HRT DIS NOS Coronary atherosclerosis of qagan [place] coronary artery 11/24/2016 Tobacco abuse 11/17/2017 documented as of this encounter (statuses as of 03/09/2023) Immunizations Name Administration Dates Next Due COVID-19 [...] encounter Miscellaneous Notes * Telephone Encounter - Evin Anderson OSA - 03/09/2023 12:56 PM EST Pt HH nurse called to indicate she is discharging pt from home health JACOBY Pollard * Telephone Encounter - Adriana Pinto LPN - 03/09/2023 12:41 PM EST Discharge Isamar DOTY, Calling from: Ras Ellery Patient is/has been discharged from Home Health on 03/09 All goals have been met and patient is safe at home. Wound is healed. No longer a skilled need for pt to continue. FYI to PCP documented in this encounter Plan of Treatment Upcoming Encounters Date Type Department Care Team (Late st Contact Info) Description 03/11/2023 8:00 AM EST Pharmacy Pharmacy, [address] [place] [address] [place] [address] 03/11/2023 2:00 PM EST Imaging Vascular Lab, [facility] [address] [address] [place] [address] 03/22/2023 10:40 AM EST Office Visit Family Medicine [address] [place] [phone] Courtney Restrepo MD [address] [place] [address] [place] [address] 04/06/2023 2:10 PM EST Office Visit Vascular Surgery, [address] [place] [address] Nnamdi King MD [address] [place] [address] 06/08/2023 11:00 AM EDT Office Visit Cardiology, [facility] [address] [place] [address] Frantz Herrera MD [address] [place] [address] 10/10/2023 4:00 PM EDT Office Visit Nephrology, [facility] [address] [place] [address] Charla Potter MD [address] [place] [address] Scheduled Procedures Name Priority Associated [...] D LEVEL ONCE IN A LIFETIME-USE SMARTSET# 24291 Completed 10/16/2021, 12/27/2018 Alpha-1 Antitrypsin Discontinued GARDASIL-HPV IMMUNIZATION SERIES Aged Out No longer eligible based on patient's age to complete this topic MENINGOCOCCAL (MENACTRA/MENVEO) Aged Out No longer eligible based on patient's age to complete this topic Zoster Vaccines Discontinued documented as of this encounter Medical Devices Implanted Type Area Electrical Equipment Assembler Device Identifier Shelf Expiration Date Model / Serial / Lot Stent Graft Icast [id number] - [id number] - [id number] Implanted:Qty : 1 on 04/14/2022 by Nnamdi King MD at OR [facility] N/A: Mesenteric Artery GETINGE : MAQUET [id number] 02/21/2023 [id number] / [id number] / [id number] Description:implanted in SMA Stent [place] 3.0x15 Rx - [id number] Implanted:Qty : 1 on 11/12/2022 by Patrice Jose MD at CARDIAC LABS [facility] [employer] : VASCULAR [id number] 11/28/2023 [id number] / / [id number] documented as of this encounter Advance [...] Agents on File Name Relationship Healthcare Agent [facility] p Communication Diamond Braxton Adult Child Health Care Repr esentative (appointed verbally by patient or by statute hierarchy) Care Teams Transport Operations Inspector Relationship Specialty Start Date End Date Courtney Restrepo MD [address] [place] [address] [place] [phone] PCP - General Family Medicine 10/17/19 documented as of this encounter
--- NOTE | 2023-08-31 07:18 | XRay Report ---
TWO VIEW CHEST CLINICAL HISTORY: Atypical chest pain. Cough. FINDINGS: AP and lateral chest radiographs are compared to study dated 01/06/2023 and correlated with chest CT scans performed between 12/14/2022 and 11/16/2018. The heart is enlarged noting atheroscleroti c calcification of the thoracic aorta. There is pulmonary vascular congestion. Emphysema and chronic interstitial thickening is similar to previous. An 11 mm right upper lobe pulmonary nodule is again noted. There is bibasilar scarring/atelectasis. No airspace consolidation or large pleural effusion i s identified. There is no pneumothorax. The skeletal structures are osteopenic. There are chronic/hea led left-sided rib fractures. Degenerative change is noted in the shoulders and spine. IMPRESSION: 1. Cardiomegaly and emphysema with pulmonary vascular congestion. 2. There is no airspace consolidation typical for pneumonia or pleural effusion. 3. An 11 mm spiculated nodule in the right upper lobe is better seen on recent chest CT scans. Althou gh this has been present dating back to 2019, this is increasingly confluent from that time and is mo rphologically concerning. Follow-up with pulmonology is recommended, as is consideration of PET/CT fo r further evaluation. ACT 112: Positive. There are findings on this exam that require communication between the performing entity and the patient following Patient Test Result Information Act ([place] Act 112) guidelines. Electronically signed by: Mak Skelton M.D. 08/31/2023 7:16 AM
[2023-08-31 07:46] LABS: Estimated Average Glucose 209 mg/dl; Hemoglobin A1C 8.9 % (4.5-5.6)
--- OUTSIDE RECORDS SUMMARY | 2023-08-31 08:05 | External Medical Summary | Summary of Care ---
Author Name Unknown Organization [facility] Address [address] [place] [address] Phone [phone] Care Team Providers Care Sound Editor Name Role Phone Courtney Restrepo MD Primary Care Prov ider Reason for Visit * Reason Comments Acute Encounter Details Date Type Department Care Team (Late st Contact Info) Description 08/30/2023 4:20 PM EDT Office Visit Family Medicine [address] [phone] Eben Obregon [address] [place] [phone] Atypical chest pain*; Type 2 diabetes mellitus with hemoglobin A1c goal of less than 8.0% ([facility]); Shortness of breath; Acute cough Allergies Active Allergy Reactions Criticality Noted Date [...] edema Nitroglycerin Hypotension 12/20/2018 Penicillins Nausea/vomiting 05/17/2007 [place] Hives 10/02/2018 Propoxyphene Edema face/lips/tongue,Hiv es 06/26/2009 [...] before bedtime. 180 Capsule 2 10/15/2022 Active [employer] Delica Lancets 30GIndications:Type 2 diabetes mellitus with hemoglobin A1c goal of less than 8.0% ([facility]) Use to test glucose daily. 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 Test performed by [facility] AIRLINE TICKET AGENT CPFT [place] (myocardial infarction) 02/21/2019 Bilateral [...] rinse after steroid. Test performed by [facility] AIRLINE TICKET AGENT CPFT GENERAL OSTEOARTHROSIS BMI 32.0-32.9,adult Tobacco use disorder Hyperlipidemia with target LDL less than 70 Overview: ICD-10 update of inactive term RSD upper limb Overview: left arm Generalized anxiety disorder documented as of this encounter (statuses as of 08/30/2023) Resolved Problems Problem Noted Date Diagnosed Date Resolved Date Hepatorenal syndrome 07/12/2023 024 Other disorders of phosphorus metabolism 02/02/2023 07/12/2023 Shock 01/08/2023 08/30/2023 PRAKASH (acute kidney injury) 01/08/2023 Systolic congestive heart failure 11/29/2022 12/10/2022 Hypertensive heart disease w ith acute on chronic diastolic congestive heart failure 11/29/2022 06/14/2023 Pneumonia due to infectious organism 11/04/2022 01/19/2023 Wound drainage 11/04/2022 08/30/2023 Cardiac arrest 11/04/2022 12/13/2022 Overview: history Acute [...] Sign Reading Time Taken Comments Blood Pressure 104/60 08/30/2023 4:10 PM EDT Pulse 88 08/30/2023 4:10 PM EDT Temperature 36.1 C (97 F) 08/30/2023 4:10 PM EDT Respiratory Rate - - Oxygen Saturation 93% 08/30/2023 4:10 PM EDT Inhaled Oxygen Concentration - - [...] No 06/07/2023 documented as of this encounter Nursing Notes * Solange Duncan LPN - 08/30/2023 4:09 PM EDT "Very very sick" Took insulin today & couldn't even eat. Using Zofran so not throwing up Last two days has been exhausted & sleeping all night & all day. Has blisters that get itchy, scratches them & they break open Has a cough With thick mucus Bruises very easily Thinks grandshun cracked her ribs when he picked her up to move her Feels horrible Eyes hurt Feels dizzy when she stands up documented in this encounter Plan of Treatment Upcoming Encounters Date Type Department Care Team (Latest Contact Info) Description 09/07/2023 1:10 PM EDT Office Visit Pharmacy, [address] [place] [address] [place] [address] 09/27/2023 9:40 AM EDT Office Visit Family Medicine [address] [phone] Courtney Restrepo MD [address] [place] [address] [place] [address] 10/10/2023 4:00 PM EDT Office Visit Nephrology, [address] [place] [address] Charla Potter MD [address] [place] [address] 10/12/2023 11:00 AM EDT Office Visit Cardiology, [facility] 132 [facility] [place] [address] Frantz Herrera MD 100 [place] [address] 12/07/2023 9:20 AM EDT Office Visit Family Medicine [address] [place] [phone] Courtney Restrepo MD [address] [place] [address] [place] [address] 01/17/2024 10:00 AM EST Hospital Encounter ENDO [facility], Endoscopy Room [facility] [address] [place] [phone] Cassandra Hart MD [address] [place] [address] 01/17/2024 10:00 AM EST - 01/17/2024 10:30 AM EST Surgery ENDO [facility], Endoscopy Room [facility] [address] [place] [phone] Cassandra Hart MD [address] [place] [address] ESOPHAGOGASTRODUODENOSCOPY (EGD), FLEXIBLE, TRANSORAL, DIAGNOSTIC 01/25/2024 10:30 AM EST Imaging Vascular Lab, [facility] 2nd [facility] [address] [facility] [place] [address] 01/25/2024 11:30 AM EST Imaging Vascular Lab, [address] [facility] [place] [address] 02/01/2024 11:30 AM EST Office Visit Vascular Surgery, [facility] [address] [facility] [place] [address] [facility]di [facility] [address] [facility] [address] 02/08/2024 11:00 AM EST Imaging Radiology, [place] [address] [facility] [place] [address] 02/17/2024 10:00 AM EST Office Visit [address] [place] [phone] Marshall Romano MD [address] [facility] [place] [address] Scheduled Procedures Name Priority Associated Diagnoses Date/Ti me ESOPHAGOGASTRODUODENOSCOPY ( EGD), FLEXIBLE, TRANSORAL, DIAGNOSTIC 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 01/17/2024 10:00 AM EST ESOPHAGOGASTRODUODENOSCOPY ( EGD), FLEXIBLE, TRANSORAL, DIAGNOSTIC Recall Pendleton's esophagus Health Maintenance Due Date Last Done Comments DISCUSS TOBACCO CESSATION (REFER TO SMARTSET #1240) 1950 Cologuard 1994 Fecal Occult Blood Test [...] D LEVEL ONCE IN A LIFETIME-USE SMARTSET# 93974 Completed 10/16/2021, 12/27/2018 Alpha-1 Antitrypsin Discontinued GARDASIL-HPV [...] this encounter Medical Devices Implanted Type Area Gluing Machine Feeder Device Identifier Shelf Expiration Date Model / Serial / Lot Stent Graft Icast [id number] - [id number] - [id number] Implanted:Qty : 1 on 04/14/2022 by Nnamdi King MD at OR [facility] N/A: Mesenteric Artery GETINGE : MAQUET [id number] 02/21/2023 [id number] / [id number] / [id number] Description:implanted in SMA Stent [place] 3.0x15 Rx - [id number] Implanted:Qty : 1 on 11/12/2022 by Patrice Jose MD at CARDIAC LABS [facility] [employer] : VASCULAR [id number] 11/28/2023 [id number] / / [id number] Stent R2p [place] 6fr [id number] - [id number] Implanted:Qty : 1 on 07/18/2023 by Nnamdi King MD at OR [facility] Right: [facility] : CARDIO S [id number] 09/11/2023 [id number] / / [id number] documented as of this encounter Visit Diagnoses Diagnosis Atypical chest pain- Primary Other chest pain Type 2 diabetes mellitus with hemoglobin A1c goal of less than 8.0% (HCC) Shortness of breath Acute cough 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 Pendleton's esophagus documented [...] the patient have Health Care Power of Atm Manager? Yes, in chart and reviewed as [...] patient or by statute hierarchy) Care Teams Sound Editor Relationship Specialty Start Date End Date Courtney Restrepo MD [address] [place] [address] [place] [address] PCP - General Family Medicine 10/17/19 documented as of this encounter
[2023-08-31] MEDS: predniSONE 20 MG TAB PO SCH (08:35)
[2023-08-31] MEDS: PANTOprazole 40 MG TAB PO SCH (08:35)
[2023-08-31] MEDS: DOCUSATE SODIUM/SENNA 50/8.6MG TAB PO SCH (08:35)
[2023-08-31] MEDS: ADVANCED PROBIOTIC 625 MG CAPSULE PO SCH (08:36)
[2023-08-31] MEDS: ASPIRIN 81 MG ECTAB PO SCH (08:36)
[2023-08-31] MEDS: DULoxetine HCL 30 MG CAP PO SCH (08:36)
[2023-08-31] MEDS: CLOPIDOGREL BISULFATE 75 MG TAB PO SCH (08:36)
[2023-08-31] MEDS: LORATADINE 10 MG TAB PO SCH (08:36)
[2023-08-31] MEDS: FAMOTIDINE 20 MG TAB PO SCH (08:36)
[2023-08-31] MEDS: MIDODRINE HCL 2.5 MG TAB PO SCH (08:37)
[2023-08-31] MEDS: MULTIVITAMIN TAB PO SCH (08:37)
[2023-08-31] MEDS: SUCRALFATE 1 GM TAB PO SCH (08:37)
[2023-08-31] MEDS: ENOXAPARIN INJ 40 MG/0.4 ML SYR SQ SCH (08:37)
[2023-08-31] MEDS: UMECLIDINIUM/VILANTEROL 62.5/25MCG 7 PUFFS/INHALER INH SCH (08:38)
[2023-08-31] MEDS: CLINDAMYCIN HCL 150 MG CAP PO SCH (08:38)
[2023-08-31] MEDS: FLUTICASONE FUROATE 100MCG 14 PUFFS/INHALER INH SCH (08:39)
--- NOTE | 2023-08-31 14:35 | Hospitalist Progress Note ---
Date of Service August 31, 2023 Assessment & Plan (1) Sepsis: Plan: Secondary to possible aspiration pneumonitis COPD exacerbation secondary to above Has been started on intravenous clindamycin Also has been on nebs [id number] and prednisone course per presumptive COPD exacerbation Await culture and sensitivity report She has been feeling little bit better today Appreciate his speech evaluation and recommendation Will continue current management Acute on chronic hyponatremia, possibly from hypervolemia Sodium level was noted to be low at 125 on admission It has been normalized at 135 as of 08/31/2023 Patient remained free for any symptoms Chronic systolic heart failure (EF 55%, TTE 2022), equivocal volume status, patient clinically dry with some congestion on x-ray Valvular heart disease (severe MR, mild TR) IV Lasix 1 dose now Does not have any symptoms of fluid overload Will monitor PRP History of cardiac arrest CAD status post stent PVD status post surgery Pulmonary hypertension CVA, hx intracranial hemorrhage as per records Hypertension, BP on the lower side Continue midodrine Hyperlipidemia on statin Rx DM 2 insulin requiring, suboptimal control as of recent hemoglobin A1c of 9.13 May 2023 Basal bolus insulin, ISS BG goal 1 10-1 40, carb count coverage, update hemoglobin A1c Chronic anemia, hemoglobin at baseline Ongoing tobacco abuse. Medical telemetry CS, clindamycin Aspiration precautions, SURGICAL INSTRUMENT MECHANIC eval Nebs RTC, prednisone course for presumptive COPD exacerbation DVT prophylaxis. Lovenox subcu DNR as per patient. Patient requests for daughter to be given periodic updates regarding care. Ms. Diamond Braxton, contact #[phone]. Admission and Anticipated Discharge Date Admission Date: August 30, 2023 Subjective 08/31/2023 The patient was seen and examined in medical telemetry unit She has been feeling much better today Denies any cough, chest pain, palpitation or shortness of breath No fever and no chills and no nausea and/or vomiting Review of Systems Review of Systems: All systems reviewed and are unremarkable except as noted below Physical Exam Physical Exam: Lying in bed comfortably Constitutional: well developed, well nourished and + ill appearing Eyes: PERRL, conjunctivae normal, anicteric sclerae ENMT: external ear and nose normal, oropharynx normal Neck: trachea midline, no thyromegaly Respiratory: no respiratory distress Auscultation: + diminished lung sounds and + crackles (Minimal bibasilar crackles) Cardiovascular: Rate/Rhythm: regular rate and regular rhythm; not tachycardic Heart Sounds: normal S1 and normal S2; no murmur Extremities: + edema (Trace edema on the right) Gastrointestinal (Abdomen): Inspection/Auscultation: normal bowel sounds; abdomen not distended Percussion/Palpation: abdomen soft; abdomen nontender Musculoskeletal: No acute arthritis involving any of the joint. She has a left BKA Neurologic: normal touch/pain/proprioception and moves all extremities; no focal motor deficits Lymphatic: no cervical or axillary lymphadenopathy Results & Data Results & Data Vital Signs (Past 12 Hours) Vital Signs Temp Pulse Pulse Resp BP Pulse Ox O2 Del Method 08/31/23 13:04 92 H 18 98 Nasal Cannula 08/31/23 11:26 36.5 C 73 18 101/69 95 Nasal Cannula 08/31/23 07:59 36.4 C L 93 H 18 113/74 96 Nasal Cannula 08/31/23 07:55 Nasal Cannula 08/31/23 07:41 85 08/31/23 07:03 98 H 20 96 Nasal Cannula 08/31/23 03:10 36.8 C 91 H 16 116/73 96 Nasal Cannula O2 Flow Rate 08/31/23 13:04 2 08/31/23 11:26 2 08/31/23 07:59 08/31/23 07:55 2 08/31/23 07:41 08/31/23 07:03 2 08/31/23 03:10 2 Laboratory Results Short CBC 08/30/23 08/31/23 Range/Units 18:28 03:07 WBC 13.00 H 7.24 (4.8-10.8) K/ul Hgb 10.7 L 11.2 L (12.0-16.0) g/dl Hct 34.1 L 35.8 L (37.0-47.0) % Plt Count 309 312 (130-400) K/uL BMP 08/30/23 08/31/23 08/31/23 18:28 03:07 07:51 Sodium 125 L 133 L 135 L Potassium 4.6 4.0 Chloride 92 L 95 L Carbon Dioxide 27 29 BUN 16 17 Creatinine 0.74 0.82 Glucose 165 H 270 H Calcium 9.2 10.0 Liver Function 08/30/23 Range/Units 18:28 Total Bilirubin 0.7 (0.2-1.0) mg/dl AST 26 (13-39) U/L ALT 18 (7-52) U/L Alkaline Phosphatase 130 H (34-104) U/L Albumin 3.9 (3.4-5.0) gm/dl Urine 08/30/23 Range/Units 18:28 Urine Color Yellow Urine Appearance Clear (Clear) Urine pH 5.5 (4.5-7.5) Ur Specific [place] 1.009 (1.000-1.030) Urine Protein Negative (Negative) Urine Glucose (UA) Negative (Negative) Medications Administered Current Inpatient Medications Acetaminophen (Acetaminophen 325 Mg Tab) 325 mg PO Q6H PRN PRN Reason: fever/pain Stop: 09/30/23 02:25 Hydrocodone Bitart/Acetaminophen (Hydrocodone/Acetamophen 5/325mg Tab) 1 tab PO Q6 PRN PRN Reason: Pain Stop: 09/14/23 00:25 Last Admin: 08/31/23 11:45 Dose: 1 tab Aspirin (Aspirin 81 Mg Ectab) 81 mg PO QAM [facility] Stop: 09/30/23 08:59 Last Admin: 08/31/23 08:36 Dose: 81 mg Atorvastatin Calcium (Atorvastatin 40 Mg Tab) 40 mg PO QPM [facility] Stop: 09/30/23 20:59 Baclofen (Baclofen 10 Mg Tab) 5 mg PO TID PRN PRN Reason: muscle spasms Stop: 09/30/23 00:25 Last Admin: 08/31/23 00:57 Dose: 5 mg Buspirone HCl (Buspirone 15 Mg Tab) 15 mg PO BID [facility] Stop: 09/30/23 00:25 Last Admin: 08/31/23 08:37 Dose: 15 mg Clindamycin HCl (Clindamycin Hcl 150 Mg Cap) 600 mg PO TID [facility] Stop: 09/07/23 08:59 Last Admin: 08/31/23 08:38 Dose: 600 mg Clopidogrel Bisulfate (Clopidogrel Bisulfate 75 Mg Tab) 75 mg PO QAM [facility] Stop: 09/30/23 08:59 Last Admin: 08/31/23 08:36 Dose: 75 mg Dextrose (Dextrose 50% 50 Ml Syringe) 25 - 50 ml IV UD PRN; Protocol PRN Reason: Hypoglycemia Protocol Stop: 09/29/23 22:58 Duloxetine HCl (Duloxetine Hcl 30 Mg Cap) 30 mg PO AMHS [facility] Stop: 09/30/23 08:59 Last Admin: 08/31/23 08:36 Dose: 30 mg Enoxaparin Sodium (Enoxaparin Inj 40 Mg/0.4 Ml Syr) 40 mg SQ QAM [facility] Stop: 09/30/23 08:59 Last Admin: 08/31/23 08:37 Dose: 40 mg Famotidine (Famotidine 20 Mg Tab) 20 mg PO DAILY [facility] Stop: 09/30/23 08:59 Last Admin: 08/31/23 08:36 Dose: 20 mg Fluticasone Furoate (Fluticasone Furoate 100mcg 14 Puffs/Inhaler) 1 puffs INH DAILY [facility] Stop: 09/30/23 08:59 Last Admin: 08/31/23 08:39 Dose: 1 puffs Gabapentin (Gabapentin 300 Mg Cap) 300 mg PO TID [facility] Stop: 09/30/23 00:25 Last Admin: 08/31/23 14:20 Dose: 300 mg Glucagon (Glucagon For Inj 1 Mg Vial) 1 mg SQ UD PRN; Protocol PRN Reason: Hypoglycemia Protocol Stop: 09/29/23 22:58 Glucose (Glucose 40% Gel 15 Gm Tube) 15 - 30 gm PO UD PRN; Protocol PRN Reason: Hypoglycemia Protocol Stop: 09/29/23 22:58 Glucose (Glucose 10 Tab/Tube) 4 - 8 tab PO UD PRN; Protocol PRN Reason: Hypoglycemia Treatment Stop: 09/29/23 22:58 Promethazine HCl 6.25 mg/ (Sodium Chloride) 50.25 mls @ 201 mls/hr IV Q6H PRN PRN Reason: Nausea And Vomiting Stop: 09/29/23 22:58 Insulin Aspart (Insulin Aspart Per Unit Charge) 0 units SC ACHS [facility] Stop: 09/29/23 23:04 Last Admin: 08/31/23 13:18 Dose: 10 units Insulin Glargine (Lantus Per Unit Charge) 10 units SQ BID [facility] Stop: 09/30/23 20:59 Ipratropium [place] (Ipratropium [place] Neb Soln 0.02% 0.5mg/2.5ml Vial) 0.5 mg INH Q6R [facility] Stop: 09/30/23 00:59 Last Admin: 08/31/23 13:04 Dose: 0.5 mg Lactobacillus Acidophilus (Advanced Probiotic 625 Mg Capsule) 1,250 mg PO DAILY [facility] Stop: 09/30/23 08:59 Last Admin: 08/31/23 08:36 Dose: 1,250 mg Levalbuterol HCl (Levalbuterol 1.25 Mg/3 Ml Neb) 1.25 mg NEB Q6R [facility] Stop: 09/30/23 00:59 Last Admin: 08/31/23 13:04 Dose: 1.25 mg Loratadine (Loratadine 10 Mg Tab) 10 mg PO DAILY [facility] Stop: 09/30/23 08:59 Last Admin: 08/31/23 08:36 Dose: 10 mg Midodrine (Midodrine Hcl 2.5 Mg Tab) 5 mg PO TID@0800,1200,1700 [facility] Stop: 09/30/23 07:59 Last Admin: 08/31/23 11:46 Dose: 5 mg Miscellaneous (Carbohydrates For Hypoglycemia ) 15 - 30 gm PO UD PRN PRN Reason: Hypoglycemia Protocol Stop: 09/29/23 22:58 Miscellaneous (Remove Nicoderm Patch) 1 each N/A DAILY@0859 [facility] Stop: 09/30/23 08:58 Last Admin: 08/31/23 08:35 Dose: Not Given Multivitamins (Multivitamin Tab) 1 tab PO DAILY [facility] Stop: 09/30/23 08:59 Last Admin: 08/31/23 08:37 Dose: 1 tab Nicotine (Nicotine 7 Mg/24 Hr Tdsy) 1 patch TD HS [facility] Stop: 09/29/23 23:09 Last Admin: 08/31/23 00:27 Dose: Not Given Pantoprazole Sodium (Pantoprazole 40 Mg Tab) 40 mg PO BID [facility] Stop: 09/30/23 08:59 Last Admin: 08/31/23 08:35 Dose: 40 mg Polyethylene Glycol (Polyethylene (Miralax) 17 Gm Pack) 17 gm PO DAILY PRN PRN Reason: Constipation Stop: 09/30/23 00:25 Prednisone (Prednisone 20 Mg Tab) 20 mg PO DAILY [facility] Stop: 09/04/23 08:59 Last Admin: 08/31/23 08:35 Dose: 20 mg Senna/Docusate Sodium (Docusate Sodium/Senna 50/8.6mg Tab) 2 tab PO AMHS [facility] Stop: 09/30/23 08:59 Last Admin: 08/31/23 08:35 Dose: 2 tab Sucralfate (Sucralfate 1 Gm Tab) 1 gm PO ACHS [facility] Stop: 09/30/23 07:29 Last Admin: 08/31/23 11:46 Dose: 1 gm Umeclidinium/Vilanterol (Umeclidinium/Vilanterol 62.5/25mcg 7 Puffs/Inhaler) 1 puffs INH QAM [facility] Stop: 09/30/23 08:59 Last Admin: 08/31/23 08:38 Dose: 1 puffs
[2023-08-31] MEDS ORDERED: PHARMACY GLYCEMIC MGMT CONSULT PRN (16:15)
--- NOTE | 2023-08-31 16:23 | Electrocardiogram Report ---
Test Reason : Blood Pressure : / mmHG Vent. Rate : 089 BPM Atrial Rate : 089 BPM P-R Int : 156 ms QRS Dur : 086 ms QT Int : 380 ms P-R-T Axes : 048 064 021 degrees QTc Int : 462 ms Normal sinus rhythm Normal ECG When compared with ECG of 04-JAN-2023 18:38, No significant change was found Confirmed by Rommel Thomas ([id number]) on 08/31/2023 4:23:11 PM Referred By: Courtney Jay Confirmed By:Rommel Thomas
[2023-08-31] MEDS: POLYETHYLENE (MIRALAX) 17 GM PACK PO PRN (20:27)
[2023-08-31] MEDS: ATORVASTATIN 40 MG TAB PO SCH (20:32)
[2023-08-31] MEDS ORDERED: LANTUS PER UNIT CHARGE SQ SCH ×2 (21:00)
[2023-08-31] MEDS ORDERED: Nursing to Pharmacy Communication SCH (21:45)
[2023-09-01] MEDS: INSULIN ASPART PER UNIT CHARGE SC SCH (01:16)
[2023-09-01] MEDS: NICOTINE 7 MG/24 HR TDSY TD SCH (07:48)
--- NOTE | 2023-09-01 09:26 | Pharmacy Report ---
Pharmacy Glycemic Short Note 2 - Date of Service September 01, 2023 - Glycemic Short BSG Results (Last 24 hours): 08/31/23 08/31/23 08/31/23 11:51 16:48 20:28 POC Glucose 300 H 228 H 231 H 09/01/23 09/01/23 01:14 08:12 POC Glucose 113 H 114 H OUTPATIENT ANTIDIABETIC REGIMEN: * Lantus 10 units SC HS * Novolog SSI HbA1c: 8.9% (08/30/23) ASSESSMENT: * BT is a 73 year old female admitted on 08/29 w/ sepsis secondary to possible aspiration pneumonia * Started on steroids, currently prednisone 20 mg PO daily * Pharmacy consulted for glycemic management last evening due to elevated blood sugars * Novolog tightened and basal increased at that time * Patient now reporting possible allergy to current home insulin regimen (Lantus/Novolog) * Will transition to NPH/regular insulin regimen PLAN FOR INPATIENT GLYCEMIC CONTROL: * Basal insulin * Lantus 20 units SQ daily w/ prednisone today * Change to NPH tomorrow morning * Bolus insulin * Regular insulin per scale ACHS or Q6hrs while NPO * Goal Range: Low 110 mg/dL - High 140 mg/dL * Correction Factor: 25 mg/dL/unit * Nutritional / Prandial insulin per carb ratio of 1 unit per 8 grams CHO consumed
[2023-09-01] MEDS: INSULIN HUMAN REGULAR SC SCH (12:36)
--- NOTE | 2023-09-01 13:51 | Hospitalist Progress Note ---
Date of Service August 31, 2023 Assessment & Plan (1) Sepsis: Plan: Secondary to possible aspiration pneumonitis COPD exacerbation secondary to above Has been started on intravenous clindamycin Also has been on nebs [id number] and prednisone course per presumptive COPD exacerbation Await culture and sensitivity report She has been feeling little bit better today Appreciate his speech evaluation and recommendation Will continue current management Acute on chronic hyponatremia, possibly from hypervolemia Sodium level was noted to be low at 125 on admission It has been normalized at 135 as of 08/31/2023 Patient remained free for any symptoms Chronic systolic heart failure (EF 55%, TTE 2022), equivocal volume status, patient clinically dry with some congestion on x-ray Valvular heart disease (severe MR, mild TR) IV Lasix 1 dose now Does not have any symptoms of fluid overload Will monitor PRP History of cardiac arrest CAD status post stent PVD status post surgery Pulmonary hypertension CVA, hx intracranial hemorrhage as per records Hypertension, BP on the lower side Continue midodrine Hyperlipidemia on statin Rx DM 2 insulin requiring, suboptimal control as of recent hemoglobin A1c of 9.13 May 2023 Basal bolus insulin, ISS BG goal 1 10-1 40, carb count coverage, update hemoglobin A1c Chronic anemia, hemoglobin at baseline Ongoing tobacco abuse. 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 Lovenox subcu DNR as per patient. Patient requests for daughter to be given periodic updates regarding care. Ms. Diamond Braxton, contact #[phone]. Admission and Anticipated Discharge Date Admission Date: August 30, 2023 Subjective 08/31/2023 The patient was seen and examined in medical telemetry unit She has been feeling much better today Denies any cough, chest pain, palpitation or shortness of breath No fever and no chills and no nausea and/or vomiting Review of Systems Review of Systems: All systems reviewed and are unremarkable except as noted below Physical Exam Physical Exam: Lying in bed comfortably Constitutional: well developed, well nourished and + ill appearing Eyes: PERRL, conjunctivae normal, anicteric sclerae ENMT: external ear and nose normal, oropharynx normal Neck: trachea midline, no thyromegaly Respiratory: no respiratory distress Auscultation: + diminished lung sounds and + crackles (Minimal bibasilar crackles) Cardiovascular: Rate/Rhythm: regular rate and regular rhythm; not tachycardic Heart Sounds: normal S1 and normal S2; no murmur Extremities: + edema (Trace edema on the right) Gastrointestinal (Abdomen): Inspection/Auscultation: normal bowel sounds; abdomen not distended Percussion/Palpation: abdomen soft; abdomen nontender Neurologic: normal touch/pain/proprioception and moves all extremities; no focal motor deficits Lymphatic: no cervical or axillary lymphadenopathy Results & Data Results & Data Vital Signs (Past 12 Hours) Vital Signs Temp Pulse Pulse Resp BP Pulse Ox O2 Del Method 08/31/23 13:04 92 H 18 98 Nasal Cannula 08/31/23 11:26 36.5 C 73 18 101/69 95 Nasal Cannula 08/31/23 07:59 36.4 C L 93 H 18 113/74 96 Nasal Cannula 08/31/23 07:55 Nasal Cannula 08/31/23 07:41 85 08/31/23 07:03 98 H 20 96 Nasal Cannula 08/31/23 03:10 36.8 C 91 H 16 116/73 96 Nasal Cannula O2 Flow Rate 08/31/23 13:04 2 08/31/23 11:26 2 08/31/23 07:59 08/31/23 07:55 2 08/31/23 07:41 08/31/23 07:03 2 08/31/23 03:10 2
--- NOTE | 2023-09-01 13:59 | Hospitalist Progress Note ---
Date of Service September 01, 2023 Assessment & Plan (1) Sepsis: Plan: Secondary to possible aspiration pneumonitis COPD exacerbation secondary to above Has been started on intravenous clindamycin Also has been on nebs [id number] and prednisone course per presumptive COPD exacerbation Await culture and sensitivity report-urine and blood cultures have been negative She has been feeling little bit better today Appreciate his speech evaluation and recommendation Clinically much better and is still has minimal cough Will have barium swallow tomorrow to evaluate aspiration Acute on chronic hyponatremia, possibly from hypervolemia Sodium level was noted to be low at 125 on admission It has been normalized at 135 as of 08/31/2023 Patient remained free for any symptoms Has been saturating normally on 2 L via nasal cannula Chronic systolic heart failure (EF 55%, TTE 2022), equivocal volume status, patient clinically dry with some congestion on x-ray Valvular heart disease (severe MR, mild TR) IV Lasix 1 dose now Does not have any symptoms of fluid overload Will check PRP tomorrow History of cardiac arrest CAD status post stent PVD status post surgery Pulmonary hypertension CVA, hx intracranial hemorrhage as per records Hypertension, BP on the lower side Continue midodrine Blood pressure remains stable at 136/78 as of 09/01/2023 Hyperlipidemia on statin Rx DM 2 insulin requiring, suboptimal control as of recent hemoglobin A1c of 9.13 May 2023 Basal bolus insulin, ISS BG goal 1 10-1 40, carb count coverage, update hemoglobin A1c Appreciate glycemic pharmacist input and recommendation Chronic anemia, hemoglobin at baseline Ongoing tobacco abuse. 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 Lovenox subcu DNR as per patient. Patient requests for daughter to be given periodic updates regarding care. Ms. Diamond Braxton, contact #[phone]. Admission and Anticipated Discharge Date Admission Date: August 30, 2023 Subjective 08/31/2023 The patient was seen and examined in medical telemetry unit She has been feeling much better today Denies any cough, chest pain, palpitation or shortness of breath No fever and no chills and no nausea and/or vomiting 09/01/2023 The patient was seen and examined in medical telemetry unit She has been feeling much better and is out of bed on a chair Has cough but no shortness of breath at rest Will have barium swallow tomorrow Review of Systems Review of Systems: All systems reviewed and are unremarkable except as noted below Physical Exam Physical Exam: Sitting on a chair without any acute distress Constitutional: well developed and well nourished; not ill appearing Eyes: PERRL, conjunctivae normal, anicteric sclerae ENMT: external ear and nose normal, oropharynx normal Neck: trachea midline, no thyromegaly Respiratory: no respiratory distress Auscultation: + diminished lung sounds and + crackles (Minimal bibasilar crackles) Cardiovascular: Rate/Rhythm: regular rate and regular rhythm; not tachycardic Heart Sounds: normal S1 and normal S2; no murmur Extremities: + edema (Trace edema on the right) Gastrointestinal (Abdomen): Inspection/Auscultation: normal bowel sounds; abdomen not distended Percussion/Palpation: abdomen soft; abdomen nontender Musculoskeletal: No acute arthritis involving of the joint. She has left BKA Neurologic: normal touch/pain/proprioception and moves all extremities; no focal motor deficits Lymphatic: no cervical or axillary lymphadenopathy Results & Data Results & Data Vital Signs (Past 12 Hours) Vital Signs Temp Pulse Pulse Resp BP Pulse Ox O2 Del Method 09/01/23 13:12 86 20 93 Nasal Cannula 09/01/23 13:00 90 09/01/23 11:35 36.8 C 92 H 18 136/78 98 Nasal Cannula 09/01/23 10:10 Nasal Cannula 09/01/23 07:47 36.5 C 79 18 117/68 95 Nasal Cannula 09/01/23 07:18 66 18 92 Nasal Cannula 09/01/23 06:01 88 09/01/23 03:35 37 C 80 18 97/53 L 94 Room Air O2 Flow Rate 09/01/23 13:12 2 09/01/23 13:00 09/01/23 11:35 4 09/01/23 10:10 2 09/01/23 07:47 2 09/01/23 07:18 2 09/01/23 06:01 09/01/23 03:35 Medications Administered Current Inpatient Medications Acetaminophen (Acetaminophen 325 Mg Tab) 325 mg PO Q6H PRN PRN Reason: fever/pain Stop: 09/30/23 02:25 Hydrocodone Bitart/Acetaminophen (Hydrocodone/Acetamophen 5/325mg Tab) 1 tab PO Q6 PRN PRN Reason: Pain Stop: 09/14/23 00:25 Last Admin: 09/01/23 07:45 Dose: 1 tab Aspirin (Aspirin 81 Mg Ectab) 81 mg PO QAM [facility] Stop: 09/30/23 08:59 Last Admin: 09/01/23 07:44 Dose: 81 mg Atorvastatin Calcium (Atorvastatin 40 Mg Tab) 40 mg PO QPM [facility] Stop: 09/30/23 20:59 Last Admin: 08/31/23 20:32 Dose: 40 mg Baclofen (Baclofen 10 Mg Tab) 5 mg PO TID PRN PRN Reason: muscle spasms Stop: 09/30/23 00:25 Last Admin: 09/01/23 12:13 Dose: 5 mg Buspirone HCl (Buspirone 15 Mg Tab) 15 mg PO BID [facility] Stop: 09/30/23 00:25 Last Admin: 09/01/23 07:43 Dose: 15 mg Clindamycin HCl (Clindamycin Hcl 150 Mg Cap) 600 mg PO TID [facility] Stop: 09/07/23 08:59 Last Admin: 09/01/23 13:46 Dose: 600 mg Clopidogrel Bisulfate (Clopidogrel Bisulfate 75 Mg Tab) 75 mg PO QAM [facility] Stop: 09/30/23 08:59 Last Admin: 09/01/23 07:45 Dose: 75 mg Dextrose (Dextrose 50% 50 Ml Syringe) 25 - 50 ml IV UD PRN; Protocol PRN Reason: Hypoglycemia Protocol Stop: 09/29/23 22:58 Duloxetine HCl (Duloxetine Hcl 30 Mg Cap) 30 mg PO AMHS [facility] Stop: 09/30/23 08:59 Last Admin: 09/01/23 07:44 Dose: 30 mg Enoxaparin Sodium (Enoxaparin Inj 40 Mg/0.4 Ml Syr) 40 mg SQ QAM [facility] Stop: 09/30/23 08:59 Last Admin: 09/01/23 07:50 Dose: 40 mg Famotidine (Famotidine 20 Mg Tab) 20 mg PO DAILY [facility] Stop: 09/30/23 08:59 Last Admin: 09/01/23 07:45 Dose: 20 mg Fluticasone Furoate (Fluticasone Furoate 100mcg 14 Puffs/Inhaler) 1 puffs INH DAILY [facility] Stop: 09/30/23 08:59 Last Admin: 09/01/23 07:50 Dose: 1 puffs Gabapentin (Gabapentin 300 Mg Cap) 300 mg PO TID [facility] Stop: 09/30/23 00:25 Last Admin: 09/01/23 13:46 Dose: 300 mg Glucagon (Glucagon For Inj 1 Mg Vial) 1 mg SQ UD PRN; Protocol PRN Reason: Hypoglycemia Protocol Stop: 09/29/23 22:58 Glucose (Glucose 40% Gel 15 Gm Tube) 15 - 30 gm PO UD PRN; Protocol PRN Reason: Hypoglycemia Protocol Stop: 09/29/23 22:58 Glucose (Glucose 10 Tab/Tube) 4 - 8 tab PO UD PRN; Protocol PRN Reason: Hypoglycemia Treatment Stop: 09/29/23 22:58 Promethazine HCl 6.25 mg/ (Sodium Chloride) 50.25 mls @ 201 mls/hr IV Q6H PRN PRN Reason: Nausea And Vomiting Stop: 09/29/23 22:58 Insulin Human Regular (Insulin Human Regular) 0 units SC ACHS [facility] Stop: 10/01/23 11:29 Last Admin: 09/01/23 12:36 Dose: 7 units Ipratropium [place] (Ipratropium [place] Neb Soln 0.02% 0.5mg/2.5ml Vial) 0.5 mg INH Q6R [facility] Stop: 09/30/23 00:59 Last Admin: 09/01/23 13:12 Dose: 0.5 mg Lactobacillus Acidophilus (Advanced Probiotic 625 Mg Capsule) 1,250 mg PO DAILY [facility] Stop: 09/30/23 08:59 Last Admin: 09/01/23 07:44 Dose: 1,250 mg Levalbuterol HCl (Levalbuterol 1.25 Mg/3 Ml Neb) 1.25 mg NEB Q6R [facility] Stop: 09/30/23 00:59 Last Admin: 09/01/23 13:12 Dose: 1.25 mg Loratadine (Loratadine 10 Mg Tab) 10 mg PO DAILY [facility] Stop: 09/30/23 08:59 Last Admin: 09/01/23 07:45 Dose: 10 mg Midodrine (Midodrine Hcl 2.5 Mg Tab) 5 mg PO TID@0800,1200,1700 [facility] Stop: 09/30/23 07:59 Last Admin: 09/01/23 12:10 Dose: 5 mg Miscellaneous (Carbohydrates For Hypoglycemia ) 15 - 30 gm PO UD PRN PRN Reason: Hypoglycemia Protocol Stop: 09/29/23 22:58 Miscellaneous (Remove Nicoderm Patch) 1 each N/A DAILY@0859 [facility] Stop: 10/01/23 08:58 Last Admin: 09/01/23 07:48 Dose: Not Given Miscellaneous Information (Pharmacy Glycemic Mgmt Consult) 1 each N/A UD PRN; Protocol PRN Reason: Consult Stop: 09/30/23 16:14 Multivitamins (Multivitamin Tab) 1 tab PO DAILY [facility] Stop: 09/30/23 08:59 Last Admin: 09/01/23 07:45 Dose: 1 tab Nicotine (Nicotine 7 Mg/24 Hr Tdsy) 1 patch TD QAM [facility] Stop: 10/01/23 08:59 Last Admin: 09/01/23 07:48 Dose: 1 patch Pantoprazole Sodium (Pantoprazole 40 Mg Tab) 40 mg PO BID [facility] Stop: 09/30/23 08:59 Last Admin: 09/01/23 07:43 Dose: 40 mg Polyethylene Glycol (Polyethylene (Miralax) 17 Gm Pack) 17 gm PO DAILY PRN PRN Reason: Constipation Stop: 09/30/23 00:25 Last Admin: 08/31/23 20:27 Dose: 17 gm Prednisone (Prednisone 20 Mg Tab) 20 mg PO DAILY [facility] Stop: 09/04/23 08:59 Last Admin: 09/01/23 07:44 Dose: 20 mg Senna/Docusate Sodium (Docusate Sodium/Senna 50/8.6mg Tab) 2 tab PO AMHS [facility] Stop: 09/30/23 08:59 Last Admin: 09/01/23 07:45 Dose: 2 tab Sucralfate (Sucralfate 1 Gm Tab) 1 gm PO ACHS [facility] Stop: 09/30/23 07:29 Last Admin: 09/01/23 12:10 Dose: 1 gm Umeclidinium/Vilanterol (Umeclidinium/Vilanterol 62.5/25mcg 7 Puffs/Inhaler) 1 puffs INH QAM [facility] Stop: 09/30/23 08:59 Last Admin: 09/01/23 07:50 Dose: 1 puffs
[2023-09-01] MEDS: diphenhydrAMINE Capsule 25 MG CAP PO ONE ×2 (14:18→18:40)
[2023-09-02 06:17] LABS: Basophils # (auto) 0.04 K/uL (0.00-0.20); Basophils % (auto) 0.3 %; Eosinophils # (auto) 0.12 K/uL (0.00-0.50); Eosinophils % (auto) 0.9 %; Hematocrit (blood only) 32.8 % (37.0-47.0); Hemoglobin 9.9 g/dl (12.0-16.0); Immature Granulocytes # (auto) 0.06 K/uL (0.01-0.20); Immature Granulocytes % (auto) 0.4 %; Lymphocytes # (auto) 1.58 K/uL (1.20-3.40); Lymphocytes % (auto) 11.3 %; Mean Corpuscular Hemoglobin 25.8 pg (25.0-34.0); Mean Corpuscular Hgb Conc 30.2 g/dL (32.0-36.0); Mean Corpuscular Volume 85.4 fL (80.0-100.0); Mean Platelet Volume 10.5 fL (9.4-12.4); Monocytes # (auto) 0.96 K/uL (0.11-0.59); Monocytes % (auto) 6.8 %; Neutrophils # (auto) 11.26 K/uL (1.40-6.50); Neutrophils % (auto) 80.3 %; Platelet Count 286 K/uL (130-400); RDW Coefficient of Variation 14.6 % (11.5-14.5); RDW Standard Deviation 45.2 fL (36.4-46.3); Red Blood Count 3.84 M/uL (4.20-5.40); White Blood Count 14.02 K/ul (4.8-10.8)
[2023-09-02 06:36] LABS: Calcium 9.8 mg/dl (8.6-10.3); Creatinine Clr Calc Pharmacy 50.7 ml/min; Est GFR (African American) 69.3 ml/min; Est GFR (Non-African American) 59.8 ml/min; Potassium 4.6 mmol/L (3.5-5.1)
[2023-09-02] MEDS ORDERED: LANTUS PER UNIT CHARGE SQ SCH (09:00)
[2023-09-02] MEDS ORDERED: INSULIN HUMAN NPH SC SCH (09:00)
[2023-09-02] MEDS: INSULIN HUMAN NPH SC SCH (09:43)
--- NOTE | 2023-09-02 12:29 | Pharmacy Report ---
Pharmacy Glycemic Short Note 2 - Date of Service September 02, 2023 - Glycemic Short BSG Results (Last 24 hours): 09/01/23 09/01/23 09/02/23 17:02 20:26 05:35 Glucose 85 POC Glucose 222 H 107 H 09/02/23 09/02/23 08:14 12:18 Glucose POC Glucose 77 80 OUTPATIENT ANTIDIABETIC REGIMEN: * Lantus 10 units SC HS * Novolog SSI HbA1c: 8.9% (08/30/23) ASSESSMENT: 09/02/23: * Blood sugars ranging 107-222 mg/dL yesterday * Received 37 units of insulin (20 units of basal and 17 units of prandial/correctional bolus) * Fasting blood sugar is 77 mg/dL this morning * Changing to NPH given allergies (see below) - will decrease by 50% and give with prednisone this morning 09/01/23: * BT is a 73 year old female admitted on 08/29 w/ sepsis secondary to possible aspiration pneumonia * Started on steroids, currently prednisone 20 mg PO daily * Pharmacy consulted for glycemic management last evening due to elevated blood sugars * Novolog tightened and basal increased at that time * Patient now reporting possible allergy to current home insulin regimen (Lantus/Novolog) * Will transition to NPH/regular insulin regimen PLAN FOR INPATIENT GLYCEMIC CONTROL: * Basal insulin * NPH 10 units SC daily w/ prednisone 20 mg PO daily * Bolus insulin * Regular insulin per scale ACHS or Q6hrs while NPO * Goal Range: Low 110 mg/dL - High 140 mg/dL * Correction Factor: 25 mg/dL/unit * Nutritional / Prandial insulin per carb ratio of 1 unit per 8 grams CHO consumed
--- NOTE | 2023-09-02 13:40 | Fluoroscopy Report ---
VIDEO SWALLOW STUDY CLINICAL HISTORY: Aspiration. COMPARISON STUDY: Video swallow study dated 06/09/2008. Fluoroscopy time: 1.03 minutes. Ka,r: 6.08 mGy FINDINGS: Fluoroscopic guidance was provided to the Department of speech pathology in performing a vi marito swallow study. The patient consumed barium-impregnated pudding, cracker with paste, nectar-thick liquids, cracker with paste, and thin barium while the swallowing mechanism was observed in real-time . No aspiration was seen with any of the sampled textures. There is trace pharyngeal penetration seen with the thin barium and nectar-thick liquid textures. IMPRESSION: 1. There is trace pharyngeal penetration seen with the thin barium and nectar-thick liquid textures. 2. No aspiration was seen with any of the sampled textures. 3. See dedicated speech pathology report for detailed findings and recommendations. Dictated: 09/02/2023 10:34 AM Transcribed: 09/02/2023 11:20 AM Saqib [id number] [email or web address] Electronically signed by: Mak Skelton M.D. 09/02/2023 1:38 PM
--- NOTE | 2023-09-02 15:52 | Hospitalist Progress Note ---
Date of Service September 02, 2023 Assessment & Plan (1) Sepsis: Plan: Secondary to possible aspiration pneumonitis COPD exacerbation secondary to above Has been started on intravenous clindamycin Also has been on nebs [id number] and prednisone course per presumptive COPD exacerbation Await culture and sensitivity report She has been feeling little bit better today Appreciate his speech evaluation and recommendation Will continue current management Clinically much better but has minimal cough without any shortness of breath and has been saturating on room air Will need to have PT and OT evaluation prior to discharge Acute on chronic hyponatremia, possibly from hypervolemia Sodium level was noted to be low at 125 on admission It has been normalized at 135 as of 08/31/2023 Sodium level has been normalized at 140 Chronic systolic heart failure (EF 55%, TTE 2022), equivocal volume status, patient clinically dry with some congestion on x-ray Valvular heart disease (severe MR, mild TR) IV Lasix 1 dose now Does not have any symptoms of fluid overload Kidney function remains stable without any electrolyte abnormality History of cardiac arrest CAD status post stent PVD status post surgery Pulmonary hypertension CVA, hx intracranial hemorrhage as per records Hypertension, BP on the lower side Continue midodrine Hyperlipidemia on statin Rx DM 2 insulin requiring, suboptimal control as of recent hemoglobin A1c of 9.13 May 2023 Basal bolus insulin, ISS BG goal 1 10-1 40, carb count coverage, Hemoglobin A1c remains elevated at 8.9 Appreciate glycemic pharmacist input and recommendation Chronic anemia, hemoglobin at baseline Ongoing tobacco abuse. 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 Lovenox subcu DNR as per patient. Patient requests for daughter to be given periodic updates regarding care. Ms. Diamond Braxton, contact #[phone]. Admission and Anticipated Discharge Date Admission Date: August 30, 2023 Subjective 08/31/2023 The patient was seen and examined in medical telemetry unit She has been feeling much better today Denies any cough, chest pain, palpitation or shortness of breath No fever and no chills and no nausea and/or vomiting 09/01/2023 The patient was seen and examined in medical telemetry unit She has been feeling much better and is out of bed on a chair Has cough but no shortness of breath at rest Will have barium swallow tomorrow 09/02/2023 The patient was seen and examined in medical telemetry unit She has been feeling much better Barium swallow did not show any significant aspiration Speech evaluation and recommendation is in chart Has minimal cough Denies any other significant symptoms Review of Systems Review of Systems: All systems reviewed and are unremarkable except as noted below Physical Exam Physical Exam: Sitting on a chair without any acute distress Constitutional: well developed and well nourished; not ill appearing Eyes: PERRL, conjunctivae normal, anicteric sclerae ENMT: external ear and nose normal, oropharynx normal Neck: trachea midline, no thyromegaly Respiratory: no respiratory distress Auscultation: + diminished lung sounds and + crackles (Minimal bibasilar crackles) Cardiovascular: Rate/Rhythm: regular rate and regular rhythm; not tachycardic Heart Sounds: normal S1 and normal S2; no murmur Extremities: + edema (Trace edema on the right) Gastrointestinal (Abdomen): Inspection/Auscultation: normal bowel sounds; abdomen not distended Percussion/Palpation: abdomen soft; abdomen nontender Musculoskeletal: No acute arthritis involving any of the joint Neurologic: normal touch/pain/proprioception and moves all extremities; no focal motor deficits Lymphatic: no cervical or axillary lymphadenopathy Results & Data Results & Data Vital Signs (Past 12 Hours) Vital Signs Temp Pulse Pulse Resp BP Pulse Ox O2 Del Method 09/02/23 15:24 36.7 C 63 17 132/83 95 Room Air 09/02/23 14:04 103 H 09/02/23 13:15 90 18 90 Room Air 09/02/23 11:22 Room Air, Nasal Cannula 09/02/23 11:13 36.4 C L 91 H 17 122/78 90 Room Air 09/02/23 07:36 36.5 C 61 16 104/66 97 Nasal Cannula 09/02/23 07:14 92 H 20 94 Nasal Cannula 09/02/23 07:00 94 H O2 Flow Rate 09/02/23 15:24 09/02/23 14:04 09/02/23 13:15 09/02/23 11:22 2.0 09/02/23 11:13 09/02/23 07:36 3.5 09/02/23 07:14 2 09/02/23 07:00 Laboratory Results Short CBC 09/02/23 Range/Units 05:35 WBC 14.02 H (4.8-10.8) K/ul Hgb 9.9 L (12.0-16.0) g/dl Hct 32.8 L (37.0-47.0) % Plt Count 286 (130-400) K/uL [facility] 09/02/23 05:35 Sodium 140 Potassium 4.6 Chloride 101 Carbon Dioxide 34 H BUN 32 H Creatinine 0.94 Glucose 85 Calcium 9.8 Medications Administered Current Inpatient Medications Acetaminophen (Acetaminophen 325 Mg Tab) 325 mg PO Q6H PRN PRN Reason: fever/pain Stop: 09/30/23 02:25 Hydrocodone Bitart/Acetaminophen (Hydrocodone/Acetamophen 5/325mg Tab) 1 tab PO Q6 PRN PRN Reason: Pain Stop: 09/14/23 00:25 Last Admin: 09/02/23 05:03 Dose: 1 tab Aspirin (Aspirin 81 Mg Ectab) 81 mg PO QAM [facility] Stop: 09/30/23 08:59 Last Admin: 09/02/23 09:32 Dose: 81 mg Atorvastatin Calcium (Atorvastatin 40 Mg Tab) 40 mg PO QPM [facility] Stop: 09/30/23 20:59 Last Admin: 09/01/23 20:54 Dose: 40 mg Baclofen (Baclofen 10 Mg Tab) 5 mg PO TID PRN PRN Reason: muscle spasms Stop: 09/30/23 00:25 Last Admin: 09/02/23 09:29 Dose: 5 mg Buspirone HCl (Buspirone 15 Mg Tab) 15 mg PO BID [facility] Stop: 09/30/23 00:25 Last Admin: 09/02/23 09:32 Dose: 15 mg Clindamycin HCl (Clindamycin Hcl 150 Mg Cap) 600 mg PO TID [facility] Stop: 09/07/23 08:59 Last Admin: 09/02/23 13:44 Dose: 600 mg Clopidogrel Bisulfate (Clopidogrel Bisulfate 75 Mg Tab) 75 mg PO QAM [facility] Stop: 09/30/23 08:59 Last Admin: 09/02/23 09:31 Dose: 75 mg Dextrose (Dextrose 50% 50 Ml Syringe) 25 - 50 ml IV UD PRN; Protocol PRN Reason: Hypoglycemia Protocol Stop: 09/29/23 22:58 Duloxetine HCl (Duloxetine Hcl 30 Mg Cap) 30 mg PO AMHS [facility] Stop: 09/30/23 08:59 Last Admin: 09/02/23 09:31 Dose: 30 mg Enoxaparin Sodium (Enoxaparin Inj 40 Mg/0.4 Ml Syr) 40 mg SQ QAM [facility] Stop: 09/30/23 08:59 Last Admin: 09/02/23 09:27 Dose: 40 mg Famotidine (Famotidine 20 Mg Tab) 20 mg PO DAILY [facility] Stop: 09/30/23 08:59 Last Admin: 09/02/23 09:31 Dose: 20 mg Fluticasone Furoate (Fluticasone Furoate 100mcg 14 Puffs/Inhaler) 1 puffs INH DAILY [facility] Stop: 09/30/23 08:59 Last Admin: 09/02/23 09:29 Dose: 1 puffs Gabapentin (Gabapentin 300 Mg Cap) 300 mg PO TID [facility] Stop: 09/30/23 00:25 Last Admin: 09/02/23 13:43 Dose: 300 mg Glucagon (Glucagon For Inj 1 Mg Vial) 1 mg SQ UD PRN; Protocol PRN Reason: Hypoglycemia Protocol Stop: 09/29/23 22:58 Glucose (Glucose 40% Gel 15 Gm Tube) 15 - 30 gm PO UD PRN; Protocol PRN Reason: Hypoglycemia Protocol Stop: 09/29/23 22:58 Glucose (Glucose 10 Tab/Tube) 4 - 8 tab PO UD PRN; Protocol PRN Reason: Hypoglycemia Treatment Stop: 09/29/23 22:58 Promethazine HCl 6.25 mg/ (Sodium Chloride) 50.25 mls @ 201 mls/hr IV Q6H PRN PRN Reason: Nausea And Vomiting Stop: 09/29/23 22:58 Insulin Human NPH (Insulin Human Nph) 10 units SC DAILY [facility] Stop: 10/02/23 08:59 Last Admin: 09/02/23 09:43 Dose: 10 units Insulin Human Regular (Insulin Human Regular) 0 units SC ACHS [facility] Stop: 10/01/23 11:29 Last Admin: 09/02/23 14:33 Dose: 5 units Ipratropium [place] (Ipratropium [place] Neb Soln 0.02% 0.5mg/2.5ml Vial) 0.5 mg INH Q6R [facility] Stop: 09/30/23 00:59 Last Admin: 09/02/23 13:08 Dose: 0.5 mg Lactobacillus Acidophilus (Advanced Probiotic 625 Mg Capsule) 1,250 mg PO DAILY [facility] Stop: 09/30/23 08:59 Last Admin: 09/02/23 09:30 Dose: 1,250 mg Levalbuterol HCl (Levalbuterol 1.25 Mg/3 Ml Neb) 1.25 mg NEB Q6R [facility] Stop: 09/30/23 00:59 Last Admin: 09/02/23 13:07 Dose: 1.25 mg Loratadine (Loratadine 10 Mg Tab) 10 mg PO DAILY [facility] Stop: 09/30/23 08:59 Last Admin: 09/02/23 09:30 Dose: 10 mg Midodrine (Midodrine Hcl 2.5 Mg Tab) 5 mg PO TID@0800,1200,1700 [facility] Stop: 09/30/23 07:59 Last Admin: 09/02/23 13:43 Dose: 5 mg Miscellaneous (Carbohydrates For Hypoglycemia ) 15 - 30 gm PO UD PRN PRN Reason: Hypoglycemia Protocol Stop: 09/29/23 22:58 Miscellaneous (Remove Nicoderm Patch) 1 each N/A DAILY@0859 [facility] Stop: 10/01/23 08:58 Last Admin: 09/02/23 09:44 Dose: 1 each Miscellaneous Information (Pharmacy Glycemic Mgmt Consult) 1 each N/A UD PRN; Protocol PRN Reason: Consult Stop: 09/30/23 16:14 Multivitamins (Multivitamin Tab) 1 tab PO DAILY [facility] Stop: 09/30/23 08:59 Last Admin: 09/02/23 09:30 Dose: 1 tab Nicotine (Nicotine 7 Mg/24 Hr Tdsy) 1 patch TD QAM [facility] Stop: 10/01/23 08:59 Last Admin: 09/02/23 09:33 Dose: 1 patch Pantoprazole Sodium (Pantoprazole 40 Mg Tab) 40 mg PO BID [facility] Stop: 09/30/23 08:59 Last Admin: 09/02/23 09:30 Dose: 40 mg Polyethylene Glycol (Polyethylene (Miralax) 17 Gm Pack) 17 gm PO DAILY PRN PRN Reason: Constipation Stop: 09/30/23 00:25 Last Admin: 09/01/23 21:01 Dose: 17 gm Prednisone (Prednisone 20 Mg Tab) 20 mg PO DAILY [facility] Stop: 09/04/23 08:59 Last Admin: 09/02/23 09:30 Dose: 20 mg Senna/Docusate Sodium (Docusate Sodium/Senna 50/8.6mg Tab) 2 tab PO AMHS [facility] Stop: 09/30/23 08:59 Last Admin: 09/02/23 09:31 Dose: 2 tab Sucralfate (Sucralfate 1 Gm Tab) 1 gm PO ACHS [facility] Stop: 09/30/23 07:29 Last Admin: 09/02/23 12:36 Dose: 1 gm Umeclidinium/Vilanterol (Umeclidinium/Vilanterol 62.5/25mcg 7 Puffs/Inhaler) 1 puffs INH QAM [facility] Stop: 09/30/23 08:59 Last Admin: 09/02/23 09:29 Dose: 1 puffs
--- NOTE | 2023-09-03 13:56 | Hospitalist Progress Note ---
Date of Service September 03, 2023 Assessment & Plan (1) Sepsis: Plan: Secondary to possible aspiration pneumonitis COPD exacerbation secondary to above Has been started on intravenous clindamycin Also has been on nebs [id number] and prednisone course per presumptive COPD exacerbation Await culture and sensitivity report She has been feeling little bit better today Appreciate his speech evaluation and recommendation Will continue current management Clinically much better but has minimal cough without any shortness of breath and has been saturating on room air She has been stable to be discharged Awaiting PT and OT evaluation prior to discharge given the 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 Acute on chronic hyponatremia, possibly from hypervolemia Sodium level was noted to be low at 125 on admission It has been normalized at 135 as of 08/31/2023 Sodium level has been normalized at 140 Chronic systolic heart failure (EF 55%, TTE 2022), equivocal volume status, patient clinically dry with some congestion on x-ray Valvular heart disease (severe MR, mild TR) IV Lasix 1 dose now Does not have any symptoms of fluid overload Kidney function remains stable without any electrolyte abnormality No symptoms of fluid overload History of cardiac arrest CAD status post stent PVD status post surgery Pulmonary hypertension CVA, hx intracranial hemorrhage as per records Denies any cardiac symptoms Hypertension, BP on the lower side Continue midodrine Hyperlipidemia on statin Rx DM 2 insulin requiring, suboptimal control as of recent hemoglobin A1c of 9.13 May 2023 Basal bolus insulin, ISS BG goal 1 10-1 40, carb count coverage, Hemoglobin A1c remains elevated at 8.9 Appreciate glycemic pharmacist input and recommendation Still having issues with insulin requiring Benadryl Chronic anemia, hemoglobin at baseline Ongoing tobacco abuse. Stable COPD DVT prophylaxis. Lovenox subcu DNR as per patient. Patient requests for daughter to be given periodic updates regarding care. Ms. Diamond Braxton, contact #[phone]. Admission and Anticipated Discharge Date Admission Date: August 30, 2023 Subjective 08/31/2023 The patient was seen and examined in medical telemetry unit She has been feeling much better today Denies any cough, chest pain, palpitation or shortness of breath No fever and no chills and no nausea and/or vomiting 09/01/2023 The patient was seen and examined in medical telemetry unit She has been feeling much better and is out of bed on a chair Has cough but no shortness of breath at rest Will have barium swallow tomorrow 09/02/2023 The patient was seen and examined in medical telemetry unit She has been feeling much better Barium swallow did not show any significant aspiration Speech evaluation and recommendation is in chart Has minimal cough Denies any other significant symptoms 09/03/2023 The patient was seen and examined in medical telemetry unit She is out of bed on a chair and waiting to be discharged Denies any significant symptoms-her cough has improved She has not had a formal PT or OT evaluation Will try to get it done today before discharge Review of Systems Review of Systems: All systems reviewed and are unremarkable except as noted below Physical Exam Physical Exam: Sitting on a chair without any acute distress Constitutional: well developed and well nourished; not ill appearing Eyes: PERRL, conjunctivae normal, anicteric sclerae ENMT: external ear and nose normal, oropharynx normal Neck: trachea midline, no thyromegaly Respiratory: no respiratory distress Auscultation: + diminished lung sounds and + crackles (Minimal bibasilar crackles) Cardiovascular: Rate/Rhythm: regular rate and regular rhythm; not tachycardic Heart Sounds: normal S1 and normal S2; no murmur Extremities: + edema (Trace edema on the right) Gastrointestinal (Abdomen): Inspection/Auscultation: normal bowel sounds; abdomen not distended Percussion/Palpation: abdomen soft; abdomen nontender Musculoskeletal: No acute arthritis involving any of the joint. She is a left BKA Neurologic: normal touch/pain/proprioception and moves all extremities; no focal motor deficits Lymphatic: no cervical or axillary lymphadenopathy Results & Data Results & Data Vital Signs (Past 12 Hours) Vital Signs Temp Pulse Resp BP BP Pulse Ox O2 Del Method 09/03/23 13:04 87 18 92 09/03/23 11:25 36.6 C 92 H 20 104/65 92 Room Air 09/03/23 07:32 98 H 18 91 Nasal Cannula 09/03/23 07:29 36.5 C 98 H 20 117/68 91 Nasal Cannula O2 Flow Rate 09/03/23 13:04 09/03/23 11:25 09/03/23 07:32 2 09/03/23 07:29 2 Medications Administered Current Inpatient Medications Acetaminophen (Acetaminophen 325 Mg Tab) 325 mg PO Q6H PRN PRN Reason: fever/pain Stop: 09/30/23 02:25 Hydrocodone Bitart/Acetaminophen (Hydrocodone/Acetamophen 5/325mg Tab) 1 tab PO Q6 PRN PRN Reason: Pain Stop: 09/14/23 00:25 Last Admin: 09/03/23 09:21 Dose: 1 tab Aspirin (Aspirin 81 Mg Ectab) 81 mg PO QAM [facility] Stop: 09/30/23 08:59 Last Admin: 09/03/23 10:03 Dose: 81 mg Atorvastatin Calcium (Atorvastatin 40 Mg Tab) 40 mg PO QPM [facility] Stop: 09/30/23 20:59 Last Admin: 09/02/23 20:06 Dose: 40 mg Baclofen (Baclofen 10 Mg Tab) 5 mg PO TID PRN PRN Reason: muscle spasms Stop: 09/30/23 00:25 Last Admin: 09/03/23 13:28 Dose: 5 mg Buspirone HCl (Buspirone 15 Mg Tab) 15 mg PO BID [facility] Stop: 09/30/23 00:25 Last Admin: 09/03/23 10:02 Dose: 15 mg Clindamycin HCl (Clindamycin Hcl 150 Mg Cap) 600 mg PO TID [facility] Stop: 09/07/23 08:59 Last Admin: 09/03/23 13:19 Dose: 600 mg Clopidogrel Bisulfate (Clopidogrel Bisulfate 75 Mg Tab) 75 mg PO QAM [facility] Stop: 09/30/23 08:59 Last Admin: 09/03/23 10:02 Dose: 75 mg Dextrose (Dextrose 50% 50 Ml Syringe) 25 - 50 ml IV UD PRN; Protocol PRN Reason: Hypoglycemia Protocol Stop: 09/29/23 22:58 Duloxetine HCl (Duloxetine Hcl 30 Mg Cap) 30 mg PO AMHS [facility] Stop: 09/30/23 08:59 Last Admin: 09/03/23 10:01 Dose: 30 mg Enoxaparin Sodium (Enoxaparin Inj 40 Mg/0.4 Ml Syr) 40 mg SQ QAM [facility] Stop: 09/30/23 08:59 Last Admin: 09/03/23 10:03 Dose: 40 mg Famotidine (Famotidine 20 Mg Tab) 20 mg PO DAILY [facility] Stop: 09/30/23 08:59 Last Admin: 09/03/23 10:01 Dose: 20 mg Fluticasone Furoate (Fluticasone Furoate 100mcg 14 Puffs/Inhaler) 1 puffs INH DAILY [facility] Stop: 09/30/23 08:59 Last Admin: 09/03/23 10:05 Dose: 1 puffs Gabapentin (Gabapentin 300 Mg Cap) 300 mg PO TID [facility] Stop: 09/30/23 00:25 Last Admin: 09/03/23 13:19 Dose: 300 mg Glucagon (Glucagon For Inj 1 Mg Vial) 1 mg SQ UD PRN; Protocol PRN Reason: Hypoglycemia Protocol Stop: 09/29/23 22:58 Glucose (Glucose 40% Gel 15 Gm Tube) 15 - 30 gm PO UD PRN; Protocol PRN Reason: Hypoglycemia Protocol Stop: 09/29/23 22:58 Glucose (Glucose 10 Tab/Tube) 4 - 8 tab PO UD PRN; Protocol PRN Reason: Hypoglycemia Treatment Stop: 09/29/23 22:58 Promethazine HCl 6.25 mg/ (Sodium Chloride) 50.25 mls @ 201 mls/hr IV Q6H PRN PRN Reason: Nausea And Vomiting Stop: 09/29/23 22:58 Insulin Human NPH (Insulin Human Nph) 10 units SC DAILY [facility] Stop: 10/02/23 08:59 Last Admin: 09/03/23 10:13 Dose: 10 units Insulin Human Regular (Insulin Human Regular) 0 units SC ACHS [facility] Stop: 10/01/23 11:29 Last Admin: 09/03/23 13:28 Dose: 16 units Ipratropium [place] (Ipratropium [place] Neb Soln 0.02% 0.5mg/2.5ml Vial) 0.5 mg INH Q6R [facility] Stop: 09/30/23 00:59 Last Admin: 09/03/23 13:04 Dose: 0.5 mg Lactobacillus Acidophilus (Advanced Probiotic 625 Mg Capsule) 1,250 mg PO DAILY [facility] Stop: 09/30/23 08:59 Last Admin: 09/03/23 10:00 Dose: 1,250 mg Levalbuterol HCl (Levalbuterol 1.25 Mg/3 Ml Neb) 1.25 mg NEB Q6R [facility] Stop: 09/30/23 00:59 Last Admin: 09/03/23 13:04 Dose: 1.25 mg Loratadine (Loratadine 10 Mg Tab) 10 mg PO DAILY [facility] Stop: 09/30/23 08:59 Last Admin: 09/03/23 10:00 Dose: 10 mg Midodrine (Midodrine Hcl 2.5 Mg Tab) 5 mg PO TID@0800,1200,1700 [facility] Stop: 09/30/23 07:59 Last Admin: 09/03/23 13:19 Dose: 5 mg Miscellaneous (Carbohydrates For Hypoglycemia ) 15 - 30 gm PO UD PRN PRN Reason: Hypoglycemia Protocol Stop: 09/29/23 22:58 Miscellaneous (Remove Nicoderm Patch) 1 each N/A DAILY@0859 [facility] Stop: 10/01/23 08:58 Last Admin: 09/03/23 10:17 Dose: 1 each Miscellaneous Information (Pharmacy Glycemic Mgmt Consult) 1 each N/A UD PRN; Protocol PRN Reason: Consult Stop: 09/30/23 16:14 Multivitamins (Multivitamin Tab) 1 tab PO DAILY [facility] Stop: 09/30/23 08:59 Last Admin: 09/03/23 10:00 Dose: 1 tab Nicotine (Nicotine 7 Mg/24 Hr Tdsy) 1 patch TD QAM [facility] Stop: 10/01/23 08:59 Last Admin: 09/03/23 10:00 Dose: 1 patch Pantoprazole Sodium (Pantoprazole 40 Mg Tab) 40 mg PO BID [facility] Stop: 09/30/23 08:59 Last Admin: 09/03/23 10:00 Dose: 40 mg Polyethylene Glycol (Polyethylene (Miralax) 17 Gm Pack) 17 gm PO DAILY PRN PRN Reason: Constipation Stop: 09/30/23 00:25 Last Admin: 09/02/23 20:03 Dose: 17 gm Prednisone (Prednisone 20 Mg Tab) 20 mg PO DAILY [facility] Stop: 09/04/23 08:59 Last Admin: 09/03/23 10:00 Dose: 20 mg Senna/Docusate Sodium (Docusate Sodium/Senna 50/8.6mg Tab) 2 tab PO AMHS [facility] Stop: 09/30/23 08:59 Last Admin: 09/03/23 10:02 Dose: 2 tab Sucralfate (Sucralfate 1 Gm Tab) 1 gm PO ACHS [facility] Stop: 09/30/23 07:29 Last Admin: 09/03/23 13:19 Dose: 1 gm Umeclidinium/Vilanterol (Umeclidinium/Vilanterol 62.5/25mcg 7 Puffs/Inhaler) 1 puffs INH QAM [facility] Stop: 09/30/23 08:59 Last Admin: 09/03/23 10:05 Dose: 1 puffs
[2023-09-03] MEDS: MAGNESIUM HYDROXIDE SUSP 30 ML UDC PO ONE (17:58)
--- NOTE | 2023-09-04 11:40 | Hospitalist Progress Note ---
Date of Service September 04, 2023 Assessment & Plan (1) Sepsis: Plan: Secondary to possible aspiration pneumonitis COPD exacerbation secondary to above Has been started on intravenous clindamycin Also has been on nebs [id number] and prednisone course per presumptive COPD exacerbation Await culture and sensitivity report She has been feeling little bit better today Appreciate his speech evaluation and recommendation Will continue current management Clinically much better but has minimal cough without any shortness of breath and has been saturating on room air She has been stable to be discharged Awaiting PT and OT evaluation prior to discharge given the 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 Appreciate PT and OT input and recommendation She remains medically stable to be discharged today Acute on chronic hyponatremia, possibly from hypervolemia Sodium level was noted to be low at 125 on admission It has been normalized at 135 as of 08/31/2023 Sodium level has been normalized at 140 Chronic systolic heart failure (EF 55%, TTE 2022), equivocal volume status, patient clinically dry with some congestion on x-ray Valvular heart disease (severe MR, mild TR) IV Lasix 1 dose now Does not have any symptoms of fluid overload Kidney function remains stable without any electrolyte abnormality Denies any cardiac symptoms or any respiratory symptoms She will be discharged home this afternoon History of cardiac arrest CAD status post stent PVD status post surgery Pulmonary hypertension CVA, hx intracranial hemorrhage as per records Denies any cardiac symptoms Hypertension, BP on the lower side Continue midodrine Hyperlipidemia on statin Rx DM 2 insulin requiring, suboptimal control as of recent hemoglobin A1c of 9.13 May 2023 Basal bolus insulin, ISS BG goal 1 10-1 40, carb count coverage, Hemoglobin A1c remains elevated at 8.9 Appreciate glycemic pharmacist input and recommendation Still having issues with insulin requiring Benadryl Chronic anemia, hemoglobin at baseline Ongoing tobacco abuse. Stable COPD-no shortness of breath at rest DVT prophylaxis. Lovenox subcu DNR as per patient. Patient requests for daughter to be given periodic updates regarding care. Ms. Diamond Braxton, contact #[phone]. She will be discharged home this afternoon Admission and Anticipated Discharge Date Admission Date: August 30, 2023 Subjective 08/31/2023 The patient was seen and examined in medical telemetry unit She has been feeling much better today Denies any cough, chest pain, palpitation or shortness of breath No fever and no chills and no nausea and/or vomiting 09/01/2023 The patient was seen and examined in medical telemetry unit She has been feeling much better and is out of bed on a chair Has cough but no shortness of breath at rest Will have barium swallow tomorrow 09/02/2023 The patient was seen and examined in medical telemetry unit She has been feeling much better Barium swallow did not show any significant aspiration Speech evaluation and recommendation is in chart Has minimal cough Denies any other significant symptoms 09/03/2023 The patient was seen and examined in medical telemetry unit She is out of bed on a chair and waiting to be discharged Denies any significant symptoms-her cough has improved She has not had a formal PT or OT evaluation Will try to get it done today before discharge 09/04/2023 The patient was seen and examined in medical telemetry unit She has been stable and feeling much better She has had her bowel movement and does not have any more abdominal symptoms She is ready to be discharged Review of Systems Review of Systems: All systems reviewed and are unremarkable except as noted below Physical Exam Physical Exam: Sitting on a chair without any acute distress Constitutional: well developed and well nourished; not ill appearing Eyes: PERRL, conjunctivae normal, anicteric sclerae ENMT: external ear and nose normal, oropharynx normal Neck: trachea midline, no thyromegaly Respiratory: no respiratory distress Auscultation: + diminished lung sounds and + crackles (Minimal bibasilar crackles) Cardiovascular: Rate/Rhythm: regular rate and regular rhythm; not tachycardic Heart Sounds: normal S1 and normal S2; no murmur Extremities: + edema (Trace edema on the right) Gastrointestinal (Abdomen): Inspection/Auscultation: normal bowel sounds; abdomen not distended Percussion/Palpation: abdomen soft; abdomen nontender Musculoskeletal: No acute arthritis involving any of the joints Neurologic: normal touch/pain/proprioception and moves all extremities; no focal motor deficits Lymphatic: no cervical or axillary lymphadenopathy Results & Data Results & Data Vital Signs (Past 12 Hours) Vital Signs Temp Pulse Pulse Resp BP Pulse Ox O2 Del Method 09/04/23 07:34 36.6 C 97 H 20 132/80 99 Room Air 09/04/23 07:33 98 H 16 94 Nasal Cannula 09/04/23 07:15 92 H 09/04/23 03:12 36.5 C 67 18 119/74 99 Room Air 09/04/23 00:35 93 H 16 96 Nasal Cannula 09/03/23 23:47 36.6 C 97 H 18 132/81 96 Nasal Cannula O2 Flow Rate 09/04/23 07:34 09/04/23 07:33 2 09/04/23 07:15 09/04/23 03:12 09/04/23 00:35 2 09/03/23 23:47 2 Medications Administered Current Inpatient Medications Acetaminophen (Acetaminophen 325 Mg Tab) 325 mg PO Q6H PRN PRN Reason: fever/pain Stop: 09/30/23 02:25 Hydrocodone Bitart/Acetaminophen (Hydrocodone/Acetamophen 5/325mg Tab) 1 tab PO Q6 PRN PRN Reason: Pain Stop: 09/14/23 00:25 Last Admin: 09/04/23 08:25 Dose: 1 tab Aspirin (Aspirin 81 Mg Ectab) 81 mg PO QAM [facility] Stop: 09/30/23 08:59 Last Admin: 09/04/23 08:22 Dose: 81 mg Atorvastatin Calcium (Atorvastatin 40 Mg Tab) 40 mg PO QPM FABIAN Stop: 09/30/23 20:59 Last Admin: 09/03/23 21:05 Dose: 40 mg Baclofen (Baclofen 10 Mg Tab) 5 mg PO TID PRN PRN Reason: muscle spasms Stop: 09/30/23 00:25 Last Admin: 09/03/23 21:04 Dose: 5 mg Buspirone HCl (Buspirone 15 Mg Tab) 15 mg PO BID [facility] Stop: 09/30/23 00:25 Last Admin: 09/04/23 08:24 Dose: 15 mg Clindamycin HCl (Clindamycin Hcl 150 Mg Cap) 600 mg PO TID FABIAN Stop: 09/07/23 08:59 Last Admin: 09/04/23 08:23 Dose: 600 mg Clopidogrel Bisulfate (Clopidogrel Bisulfate 75 Mg Tab) 75 mg PO QAM [facility] Stop: 09/30/23 08:59 Last Admin: 09/04/23 08:23 Dose: 75 mg Dextrose (Dextrose 50% 50 Ml Syringe) 25 - 50 ml IV UD PRN; Protocol PRN Reason: Hypoglycemia Protocol Stop: 09/29/23 22:58 Duloxetine HCl (Duloxetine Hcl 30 Mg Cap) 30 mg PO AMHS [facility] Stop: 09/30/23 08:59 Last Admin: 09/04/23 08:24 Dose: 30 mg Enoxaparin Sodium (Enoxaparin Inj 40 Mg/0.4 Ml Syr) 40 mg SQ QAM FABIAN Stop: 09/30/23 08:59 Last Admin: 09/04/23 10:48 Dose: Not Given Famotidine (Famotidine 20 Mg Tab) 20 mg PO DAILY FABIAN Stop: 09/30/23 08:59 Last Admin: 09/04/23 08:24 Dose: 20 mg Fluticasone Furoate (Fluticasone Furoate 100mcg 14 Puffs/Inhaler) 1 puffs INH DAILY FABIAN Stop: 09/30/23 08:59 Last Admin: 09/04/23 08:26 Dose: 1 puffs Gabapentin (Gabapentin 300 Mg Cap) 300 mg PO TID [facility] Stop: 09/30/23 00:25 Last Admin: 09/04/23 08:22 Dose: 300 mg Glucagon (Glucagon For Inj 1 Mg Vial) 1 mg SQ UD PRN; Protocol PRN Reason: Hypoglycemia Protocol Stop: 09/29/23 22:58 Glucose (Glucose 40% Gel 15 Gm Tube) 15 - 30 gm PO UD PRN; Protocol PRN Reason: Hypoglycemia Protocol Stop: 09/29/23 22:58 Glucose (Glucose 10 Tab/Tube) 4 - 8 tab PO UD PRN; Protocol PRN Reason: Hypoglycemia Treatment Stop: 09/29/23 22:58 Promethazine HCl 6.25 mg/ (Sodium Chloride) 50.25 mls @ 201 mls/hr IV Q6H PRN PRN Reason: Nausea And Vomiting Stop: 09/29/23 22:58 Insulin Human NPH (Insulin Human Nph) 10 units SC DAILY FABIAN Stop: 10/02/23 08:59 Last Admin: 09/04/23 09:10 Dose: 10 units Insulin Human Regular (Insulin Human Regular) 0 units SC ACHS [facility] Stop: 10/01/23 11:29 Last Admin: 09/04/23 09:10 Dose: 7 units Ipratropium Falun (Ipratropium Falun Neb Soln 0.02% 0.5mg/2.5ml Vial) 0.5 mg INH Q6R [facility] Stop: 09/30/23 00:59 Last Admin: 09/04/23 07:29 Dose: 0.5 mg Lactobacillus Acidophilus (Advanced Probiotic 625 Mg Capsule) 1,250 mg PO DAILY [facility] Stop: 09/30/23 08:59 Last Admin: 09/04/23 08:24 Dose: 1,250 mg Levalbuterol HCl (Levalbuterol 1.25 Mg/3 Ml Neb) 1.25 mg NEB Q6R [facility] Stop: 09/30/23 00:59 Last Admin: 09/04/23 07:29 Dose: 1.25 mg Loratadine (Loratadine 10 Mg Tab) 10 mg PO DAILY [facility] Stop: 09/30/23 08:59 Last Admin: 09/04/23 08:23 Dose: 10 mg Midodrine (Midodrine Hcl 2.5 Mg Tab) 5 mg PO TID@0800,1200,1700 [facility] Stop: 09/30/23 07:59 Last Admin: 09/04/23 08:23 Dose: 5 mg Miscellaneous (Carbohydrates For Hypoglycemia ) 15 - 30 gm PO UD PRN PRN Reason: Hypoglycemia Protocol Stop: 09/29/23 22:58 Miscellaneous (Remove Nicoderm Patch) 1 each N/A DAILY@0859 [facility] Stop: 10/01/23 08:58 Last Admin: 09/03/23 10:17 Dose: 1 each Miscellaneous Information (Pharmacy Glycemic Mgmt Consult) 1 each N/A UD PRN; Protocol PRN Reason: Consult Stop: 09/30/23 16:14 Multivitamins (Multivitamin Tab) 1 tab PO DAILY [facility] Stop: 09/30/23 08:59 Last Admin: 09/04/23 08:24 Dose: 1 tab Nicotine (Nicotine 7 Mg/24 Hr Tdsy) 1 patch TD QAM [facility] Stop: 10/01/23 08:59 Last Admin: 09/04/23 08:24 Dose: 1 patch Pantoprazole Sodium (Pantoprazole 40 Mg Tab) 40 mg PO BID [facility] Stop: 09/30/23 08:59 Last Admin: 09/04/23 10:48 Dose: Not Given Polyethylene Glycol (Polyethylene (Miralax) 17 Gm Pack) 17 gm PO DAILY PRN PRN Reason: Constipation Stop: 09/30/23 00:25 Last Admin: 09/03/23 21:01 Dose: 17 gm Senna/Docusate Sodium (Docusate Sodium/Senna 50/8.6mg Tab) 2 tab PO AMHS [facility] Stop: 09/30/23 08:59 Last Admin: 09/04/23 10:49 Dose: Not Given Sucralfate (Sucralfate 1 Gm Tab) 1 gm PO ACHS [facility] Stop: 09/30/23 07:29 Last Admin: 09/04/23 08:24 Dose: 1 gm Umeclidinium/Vilanterol (Umeclidinium/Vilanterol 62.5/25mcg 7 Puffs/Inhaler) 1 puffs INH QAM [facility] Stop: 09/30/23 08:59 Last Admin: 09/04/23 08:26 Dose: 1 puffs
--- NOTE | 2023-09-04 14:01 | Pharmacy Report ---
Pharmacy Glycemic Short Note 2 - Date of Service September 04, 2023 - Glycemic Short BSG Results (Last 24 hours): 09/03/23 09/03/23 09/04/23 17:15 20:56 08:20 POC Glucose 82 89 121 H 09/04/23 12:11 POC Glucose 226 H OUTPATIENT ANTIDIABETIC REGIMEN: * Lantus 10 units SC HS * Novolog SSI HbA1c: 8.9% (08/30/23) ASSESSMENT: 09/03: * BSGs yesterday were 498-756-23-89 mg/dl. * Received 10 units of basal NPH and 23 units bolus regular insulin. * Today, Prednisone was discontinued but patient still received NPH 10 units this morning. The NPH is now discontinued. Since NPH was given without the Prednisone, requested nurse to check a BSG ~14:00 today- this was 118 mg/dl which came down from 226 mg/dl pre-lunch. * Expect BSG to trend down further by dinner. 09/02/23: * Blood sugars ranging 107-222 mg/dL yesterday * Received 37 units of insulin (20 units of basal and 17 units of prandial/correctional bolus) * Fasting blood sugar is 77 mg/dL this morning * Changing to NPH given allergies (see below) - will decrease by 50% and give with prednisone this morning 09/01/23: * BT is a 73 year old female admitted on 08/29 w/ sepsis secondary to possible aspiration pneumonia * Started on steroids, currently prednisone 20 mg PO daily * Pharmacy consulted for glycemic management last evening due to elevated blood sugars * Novolog tightened and basal increased at that time * Patient now reporting possible allergy to current home insulin regimen (Lantus/Novolog) * Will transition to NPH/regular insulin regimen PLAN FOR INPATIENT GLYCEMIC CONTROL: * Basal insulin * NPH 10 units SC given today; now discontinued. * Bolus insulin * Regular insulin per scale ACHS or Q6hrs while NPO * Goal Range: Low 110 mg/dL - High 140 mg/dL * Correction Factor: 30 mg/dL/unit * Nutritional / Prandial insulin per carb ratio of 1 unit per 10 grams CHO consumed
--- NOTE | 2023-09-14 11:51 | Discharge Summary ---
Date of Service September 14, 2023 Late Discharge Summary for 09/04/2023 Admission HPI Per Admitting Provider History obtained from patient and records. Medical history significant for chronic diastolic heart failure (EF 55%, TTE 2022), valvular heart disease (severe MR, mild TR), pulmonary hypertension, history of cardiac arrest, CAD status post stent, PVD status post surgery, CVA, hx intracranial hemorrhage as per records, COPD, hypertension, hypotension on midodrine, hyperlipidemia, DM 2 insulin requiring, chronic hyponatremia, chronic anemia (baseline hemoglobin 10), anxiety/mood disorder, ongoing tobacco abuse. Last [facility] confinement December 2022 for septic shock, kidney dysfunction secondary to complicated UTI/wound infection. Patient transferred to [facility] for further management. Recent [facility] confinement under vascular service July 2023 for right lower extremity vascular procedure. Few days history of junky cough symptoms associated with worsening shortness of breath. Achy left-sided chest pain. Admits to choking symptoms with food/water intake for some time now. Patient directed to ER from PCP's office. Solu-Medrol, neb treatment, doxycycline administered at the ER. Medical History as above Surgical History : Vascular procedures, skin grafting, partial hysterectomy, cataract surgery, toe amputation, bladder neck procedure, skin debridement Family History : Breast cancer, DM, stroke Personal/Social history : Few cigarettes a day, no EtOH intake, disabled Admission Exam Per Admitting Provider Physical Exam: GENERAL: Slightly uncomfortable, obese, dysarthric (chronic), no respiratory distress SKIN: Pallor, warm HEENT: Pale palpebral conjunctivae, no ptosis, chronic facial asymmetry, dry buccal mucosa, nasal cannula in place NECK : Supple, no tenderness CHEST : Decreased breath sounds, occasional expiratory wheezes, no tenderness HEART : RRR, systolic murmur ABDOMEN: Some distention, nontender EXTREMITIES : Minimal LE swelling, no LE tenderness, no other conspicuous deformities noted NEUROLOGIC : Coherent, chronic facial asymmetry, chronic dysarthria, gait and stance not assessed Principal Diagnosis Sepsis likely secondary to pneumonia, acute on chronic hyponatremia, type 2 diabetes on insulin, chronic stable systolic heart failure Discharge Exam Sitting on a chair without any acute distress Constitutional well developed and well nourished; not ill appearing Eyes PERRL, conjunctivae normal, anicteric sclerae ENMT external ear and nose normal, oropharynx normal Neck trachea midline, no thyromegaly Respiratory no respiratory distress Auscultation: + diminished lung sounds and + crackles (Minimal bibasilar crackles) Cardiovascular Rate/Rhythm: regular rate and regular rhythm; not tachycardic Heart Sounds: normal S1 and normal S2; no murmur Extremities: + edema (Trace edema on the right) Gastrointestinal (Abdomen) Inspection/Auscultation: normal bowel sounds; abdomen not distended Percussion/Palpation: abdomen soft; abdomen nontender Neurologic normal touch/pain/proprioception and moves all extremities; no focal motor defi cits Lymphatic no cervical or axillary lymphadenopathy Discharge Data Allergies Allergy/AdvReac Type Severity Reaction Status Date / Time methadone Allergy Severe "couldn't Verified 08/30/23 21:04 swallow/eyes coming out of head" nickel Allergy Severe swelling Verified 08/30/23 21:04 and infections nitroglycerin Allergy Intermediate DECREASED Verified 08/30/23 21:04 BP propoxyphene Allergy Intermediate edema to Verified 08/30/23 21:04 face/lips/tongue diclofenac Allergy Mild Rash Verified 08/30/23 21:04 hydrocodone Allergy Mild "severe Verified 08/30/23 21:04 constipation" levofloxacin [From Levaquin] Allergy Mild nausea/vomi Verified 08/30/23 21:04 ting Penicillins Allergy Mild severe Verified 08/30/23 21:04 diarrhea/rash sitagliptin [From Januvia] Allergy Mild rash Verified 08/30/23 21:04 "blood blisters" insulin aspart AdvReac Intermediate Rash Verified 09/01/23 09:58 [From Novolog U-100 Insulin aspart] insulin glargine AdvReac Intermediate Rash Verified 09/01/23 09:57 [From Lantus U-100 Insulin] broccoli AdvReac Mild Rash Verified 09/01/23 09:39 Consultations 08/30/23 20:40 ED Decision to Admit Stat Ordered Studies 08/30/23 19:21 CT angio chest PE protocol Stat 09/02/23 09:30 FL video swallow Routine Hospital Course (1) Sepsis: Secondary to possible aspiration pneumonitis COPD exacerbation secondary to above Has been started on intravenous clindamycin Also has been on nebs [id number] and prednisone course per presumptive COPD exacerbation Await culture and sensitivity report She has been feeling little bit better today Appreciate his speech evaluation and recommendation Will continue current management Clinically much better but has minimal cough without any shortness of breath and has been saturating on room air She has been stable to be discharged Awaiting PT and OT evaluation prior to discharge given the 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 Appreciate PT and OT input and recommendation She remains medically stable to be discharged today Acute on chronic hyponatremia, possibly from hypervolemia Sodium level was noted to be low at 125 on admission It has been normalized at 135 as of 08/31/2023 Sodium level has been normalized at 140 Chronic systolic heart failure (EF 55%, TTE 2022), equivocal volume status, patient clinically dry with some congestion on x-ray Valvular heart disease (severe MR, mild TR) IV Lasix 1 dose now Does not have any symptoms of fluid overload Kidney function remains stable without any electrolyte abnormality Denies any cardiac symptoms or any respiratory symptoms She will be discharged home this afternoon History of cardiac arrest CAD status post stent PVD status post surgery Pulmonary hypertension CVA, hx intracranial hemorrhage as per records Denies any cardiac symptoms Hypertension, BP on the lower side Continue midodrine Hyperlipidemia on statin Rx DM 2 insulin requiring, suboptimal control as of recent hemoglobin A1c of 9.13 May 2023 Basal bolus insulin, ISS BG goal 1 10-1 40, carb count coverage, Hemoglobin A1c remains elevated at 8.9 Appreciate glycemic pharmacist input and recommendation Still having issues with insulin requiring Benadryl Chronic anemia, hemoglobin at baseline Ongoing tobacco abuse. Stable COPD-no shortness of breath at rest DVT prophylaxis. Lovenox subcu DNR as per patient. Patient requests for daughter to be given periodic updates regarding care. Ms. Diamond Braxton, contact #[phone]. She will be discharged home this afternoon Total Time Total Time Spent Total Time Spent (In Minutes): 35 minutes Discharge Plan Discharge Items Patient Disposition: Home - Home Health Services Reason For Visit: SEPSIS Discharge Diagnosis: Sepsis likely secondary to pneumonia, acute on chronic hyponatremia, type 2 diabetes on insulin, chronic stable systolic heart failure Condition on Discharge: Fair Activity: Resume your previous activity Non-emergency contact: Primary Care Provider Call non-emergency contact if: you have any medication questions and your symptoms worsen Follow-up/Referrals: Courtney Jay MD [Primary Care Provider] - 09/06/23 9:40 am (Date & Time 09/06/2023 9:40 AM Provider Eben Obregon CRNP Department [facility] ) Diet: Carb Consistent or DM2 and Heart Healthy Diet Texture: Easy to Chew Diet Comment: Aspiration precautions as advised by the speech therapist Addtl Attending Provider Instructions: Please take precaution to avoid falls Use walking devices while you are on foot Finish the course of antibiotic Please keep appointments with your healthcare providers Pending Studies at Discharge: No Stand-Alone Forms: My [facility], Smoking Cessation Medications and DC Order Prescriptions: New nicotine 7 mg/24 hr Patch 24 Hour 1 patch transdermal QAM Qty: 30 0RF clindamycin HCl 300 mg capsule 600 mg PO Q8H Qty: 20 0RF Continued atorvastatin 40 mg tablet 40 mg PO QPM clopidogrel 75 mg tablet 75 mg PO QAM aspirin 81 mg Tablet,Delayed Release (Dr/Ec) 81 mg PO QAM buspirone 15 mg tablet 15 mg PO BID albuterol sulfate [Ventolin HFA] 90 mcg/actuation Hfa Aerosol Inhaler 2 puff INHALATION Q4 PRN (Reason: Shortness Of Breath) sucralfate [Carafate] 1 gram Tablet 1 g PO ACHS pantoprazole 40 mg Tablet,Delayed Release (Dr/Ec) 40 mg PO BID cholecalciferol (vitamin D3) 125 mcg (5,000 unit) Tablet 5,000 unit PO BID ipratropium-albuterol 0.5 mg-3 mg(2.5 mg base)/3 mL solution for nebulization 3 ml INHALATION Q4 PRN (Reason: Shortness Of Breath Or Wheezing) Trelegy Ellipta 100-62.5-25 mcg blister with device 1 inh INHALATION DAILY duloxetine 30 mg capsule,delayed release(DR/EC) 30 mg PO AMHS miconazole nitrate 2 % Cream 1 applic vaginal HS Qty: 1 0RF midodrine 2.5 mg Tablet 5 mg PO TID@0800,1200,1700 Qty: 20 0RF multivitamin Tablet 1 tab PO DAILY polyethylene glycol 3350 [Miralax] 17 gram Powder In Packet 17 g PO DAILY PRN (Reason: Constipation) hydrocodone-acetaminophen 5-325 mg tablet 1 tab PO Q6 PRN (Reason: Pain) sennosides-docusate sodium [Senokot-S] 8.6-50 mg Tablet 2 tab-cap PO AMHS calcium carbonate 600 mg calcium (1,500 mg) Tablet 600 mg PO BID famotidine 20 mg tablet 20 mg PO DAILY gabapentin 300 mg capsule 300 mg PO TID furosemide [Lasix] 20 mg Tablet 20 mg PO DAILY loratadine 10 mg tablet 10 mg PO DAILY insulin aspart U-100 [Novolog FlexPen U-100 Insulin] 100 unit/mL (3 mL) insulin pen 0 unit SUBCUT .QLUNCH Rx Instructions: per sliding scale insulin glargine [Lantus Solostar U-100 Insulin] 100 unit/mL (3 mL) insulin pen 10 unit SUBCUT HS baclofen 5 mg tablet 5 mg PO TID PRN (Reason: muscle spasms) Align 4 mg Capsule 4 mg PO DAILY Discharge Orders: Discharge Order (Routine); Ordered 09/04/23 Ordered By: Denver Winston Discharge Order- [facility] (Routine); Ordered 09/04/23 Ordered By: Denver Winston Admission Data Admit Date/Time: 08/30/23 22:58 Attending Provider: Denver Winston Admit Provider: Patricio Araujo Primary Care Provider: Courtney Jay Other Providers: Patricio Araujo; Jefry Fallon [facility] Other Interventions: Discharge Summary Assessment (RN) Last Done: 09/04/23 13:37
== END 2023-09-04 15:15 | disposition home health service (06) | DRG 871 ==
LOC: ED 17:55 → 2N 22:58

== ENCOUNTER 2023-10-07 13:02 | Inpatient (IN) ==
[2023-10-07] MEDS ORDERED: PANTOPRAZOLE BOLUS/DRIP IV STA (13:31)
[2023-10-07] MEDS: fentaNYL citrate PF 100 MCG/2 ML VIAL IV STA (13:54)
[2023-10-07] MEDS: PANTOprazole 80 MG in DEXTROSE 5% 100 ML IV ONE (13:54)
[2023-10-07] MEDS: ONDANSETRON INJ 2 MG/ML 2 ML VIAL IV STA (13:55)
[2023-10-07 14:03] LABS: Basophils # (auto) 0.04 K/uL (0.00-0.20); Basophils % (auto) 0.5 %; Eosinophils # (auto) 0.05 K/uL (0.00-0.50); Eosinophils % (auto) 0.6 %; Hematocrit (blood only) 47.2 % (37.0-47.0); Hemoglobin 14.6 g/dl (12.0-16.0); Immature Granulocytes # (auto) 0.03 K/uL (0.01-0.20); Immature Granulocytes % (auto) 0.3 %; Lymphocytes # (auto) 1.38 K/uL (1.20-3.40); Lymphocytes % (auto) 16.1 %; Mean Corpuscular Hemoglobin 27.1 pg (25.0-34.0); Mean Corpuscular Hgb Conc 30.9 g/dL (32.0-36.0); Mean Corpuscular Volume 87.7 fL (80.0-100.0); Mean Platelet Volume 10.4 fL (9.4-12.4); Monocytes # (auto) 0.68 K/uL (0.11-0.59); Monocytes % (auto) 7.9 %; Neutrophils % (auto) 74.6 %; Platelet Count 299 K/uL (130-400); RDW Coefficient of Variation 20.3 % (11.5-14.5); RDW Standard Deviation 62.2 fL (36.4-46.3); Red Blood Count 5.38 M/uL (4.20-5.40); White Blood Count 8.58 K/ul (4.8-10.8)
[2023-10-07 14:05] LABS: iSTAT Creatinine 1.1 mg/dl (0.6-1.3); iSTAT Hemoglobin 16.3 g/dl (12.0-16.0); iSTAT Ionized Calcium 1.16 mmol/l (1.12-1.32); iSTAT Potassium 4.5 mmol/L (3.3-5.0)
[2023-10-07 14:06] LABS: Appearance Urine Cloudy (Clear); Bacteria Urine Automated 4+ (None Seen); Bilirubin Urine Negative (Negative); Blood Urine 1+ (Negative); Cast Urine Automated 0-2 /lpf (0-2); Color Urine Yellow; Glucose Urine UA 3+ (Negative); Ketones Urine Negative (Negative); Leukocyte Esterase Urine Negative (Negative); Nitrite Urine Negative (Negative); Protein Urine Negative (Negative); Specific Gravity Urine 1.015 (1.000-1.030); Urobilinogen Urine Negative (Negative)
[2023-10-07] MEDS: OPTIRAY 320 100ml IV ONE (14:15)
[2023-10-07 14:21] LABS: Albumin Globulin Ratio 1.2 (0.9-2); Albumin Level 4.4 gm/dl (3.4-5.0); BUN Creatinine Ratio 16.2 (10-20); Bilirubin,Total 0.6 mg/dl (0.2-1.0); Calcium 10.2 mg/dl (8.6-10.3); Creatinine Clr Calc Pharmacy 44.7 ml/min; Est GFR (African American) 60.6 ml/min; Est GFR (Non-African American) 52.3 ml/min; Globulin 3.7 gm/dl (2.5-4.0); Magnesium 2.3 mg/dl (1.7-2.4); Total Protein 8.1 gm/dl (6.0-8.3)
[2023-10-07 14:22] LABS: RBC Morphology Unremarkable
[2023-10-07 14:28] LABS: Troponin I High Sensitivity 13.6 pg/ml (0-14)
--- NOTE | 2023-10-07 14:34 | XRay Report ---
XR chest 1V portable HISTORY: weakness COMPARISON: Chest 08/30/2023. FINDINGS: No pneumothorax. No pleural effusions. The cardiac silhouette is top normal in size. No new focal lung consolidations to suggest a pneumonia. No evidence for pulmonary edema. Mild interstitial thickening which is likely chronic. Calcifications within the aortic knob. Old left-sided rib fractu res. There is again noted an 11 mm irregular nodule within the right upper lobe. IMPRESSION: 1. No acute process within the chest. 2. Redemonstration of the 11 mm irregular nodule within the right upper lobe. ACT 112: Negative or not required by law. Electronically signed by: Erick Crandall M.D. 10/07/2023 2:33 PM
[2023-10-07 14:37] LABS: Thyroid Stimulating Hormone 1.078 uIu/ml (0.300-4.500)
[2023-10-07] MEDS: PANTOprazole 40 MG in DEXTROSE 5% MINI-B 100 ML IV SCH (14:37)
--- NOTE | 2023-10-07 14:47 | Emergency Department Note ---
Impression & Plan Rectal bleeding, Chest pain, Dizziness, Headache ED Provider Note Provider: Heladio Diaz MD DATE OF SERVICE: 10/07/2023 CHIEF COMPLAINT: Dizzy when standing, black stools HISTORY OF PRESENT ILLNESS: Patient is a 73-year-old female significant past medical history including CHF/CAD, diabetes, Pendleton's esophagus, CVA, and GI bleed by her report presenting here today reporting since yesterday she has had black stools. Dizziness when standing. No falls. Nausea but no vomiting. No travel or sick contacts. Mid to left lower abdominal discomfort. No new numbness or focal weakness. Denies any alcohol use. Denies use of Pepto-Bismol but has chronically been on iron. Reports head pain/headache. PAST MEDICAL HISTORY: As noted above MEDICATIONS: Reviewed home medications SOCIAL HISTORY: Smoker PHYSICAL EXAM: GENERAL: alert and oriented in no acute distress on stretcher Head: normocephalic and atraumatic EYES: No injection, discharge or icterus. PERRL, EOMI. NECK: Trachea midline. Supple. ENT: Mucous membranes pink and moist. LUNGS: Airway patent. No retractions. Breath sounds clear anteriorly HEART: Regular rate and rhythm. No chest wall tenderness ABDOMEN: Soft with some mild mid to left lower abdominal discomfort. Rectal with nurse forest resource specialist: No significant hemorrhoids noted with brownish- black Hemoccult positive stool. SKIN: Acyanotic, warm, dry, without rashes EXTREMITIES: Without swelling, tenderness or deformity with left lower extremity BKA noted. NEUROLOGICAL: No focal deficits. No aphasia. No facial droop or slurred speech. Normal strength and tone in the extremities. Sensation to gross touch normal. EK bpm sinus rhythm occasional PVC. No acute ST segment elevation or depression with a QTc of 485. EK beats beats per minute. Normal sinus rhythm. No PVC or PAC. No acute ST segment elevation or depression. CONTINUOUS CARDIAC MONITORING: was ordered and showed a heart rate of 80s-90s bpm in normal sinus rhythm Patient's laboratory studies and imaging reviewed. Differential includes Diverticulosis, AVM, coagulopathy, colitis, inflammatory bowel disease, malignancy, Jessica-Carter tear, esophagitis, peptic ulcer disease, variceal bleed, gastritis, epistaxis, fissure, hemorrhoids, CVA, ACS, PE, COPD, pneumonia, meningitis, UTI, as well as other pathologies. IMPRESSION/MEDICAL DECISION MAKING: Hemoccult positive stool with nursing forest resource specialist obtained. No significant anemia here or leukocytosis. Some abdominal discomfort and given the Hemoccult positive stools will obtain CT scan here. No significant renal dysfunction. BUN not elevated and lower suspicion this is upper GI but did receive Protonix. She does have a history of gastric ulcer. Urinalysis not impressive for infection. Given her dizziness with standing as well as headache and with aspirin Plavix usage will obtain a head CT to exclude intracranial abnormality such as ICH but did not seem like stroke. Does not appear febrile and doubt sepsis. Later had some onset of chest discomfort. Repeat EKG obtained without significant finding. Initial troponin is normal and lower suspicion for ACS. Does have multiple medical comorbidities and with a Hemoccult positive stool as well as dual antiplatelet issues question if she could be experiencing onset of a lower GI bleed. Did receive some Zofran and fentanyl for pain. Head CT reassuring with only old findings noted by radiology. Abdominal CT with fecal retention but no other significant acute abnormalities noted by the report available. No anemia or leukocytosis. Again no severe electrolyte abnormalities noted with some mild hyponatremia. Negative respiratory viral panel. Negative urinalysis. No evidence of hepatitis or pancreatitis. Patient head is feeling improved on reassessment but having still some abdominal discomfort. With her underlying COPD transiently on a little bit of oxygen after the pain medication. Given her bloody stool with delayed platelet usage and symptoms discussed further observation in the hospital and hospitalist was contacted. Low suspicion at this point for acute ACS or CVA DIAGNOSIS: Rectal bleeding, COPD, abdominal pain, headache, dizziness DISPOSITION: Hospitalist will evaluate Patient was agreeable with this plan. Past Med/Surg History Problem List ASCVD (arteriosclerotic cardiovascular disease) PVD (peripheral vascular disease) Severe mitral regurgitation Obesity (BMI 30.0-34.9) Emphysema lung Right upper lobe pulmonary nodule Status post carotid endarterectomy (Chronic) right Tobacco use disorder, continuous (Chronic) 2ppd CAD (coronary artery disease) (Chronic) Anemia Melena Anxiety (Chronic) Pendleton esophagus (Chronic) History of carotid endarterectomy (Chronic) 2009 on right side Diabetes mellitus, type II (Chronic) COPD (chronic obstructive pulmonary disease) (Chronic) inhaler prn CVA (cerebral vascular accident) (Chronic) 2008--slight left side weakness (no assistive devices)--follows with Dr. Astudillo PVRebekah (peripheral vascular disease) (Chronic) Hyperlipidemia (Chronic) HTN (hypertension) (Chronic) H/O: hysterectomy (Chronic) Medical History (Updated 10/07/23 @ 17:03 by SHREE Fitch) Osteoarthritis GI bleed Anemia Glaucoma bilt eyes On anticoagulant therapy plavix daily Coronary artery disease, occlusive Surgical History Status post femoropopliteal bypass surgery 11/06/[address] Jara---thrombectomy/Femoral-femoral bypass History of colonoscopy with polypectomy History of bilateral tubal ligation History of dilatation and curettage x3 History of repair of right rotator cuff x2 History of esophagogastroduodenoscopy (EGD) History of appendectomy History of tooth extraction most teeth History of endoscopic sinus surgery History of bilateral cataract extraction History of heart artery stent x1 before 2000? @ [facility] History of cardiac cath x2 both @ [facility]--2000 with 1 stent/2003--no stent, instead fem-pop bypass History of bronchoscopy Status post femoral-popliteal bypass surgery 2004 Family History Sister Family history of diabetes mellitus Family history of esophageal cancer Family hx of colon cancer Sister Family history of diabetes mellitus Sister Family history of diabetes mellitus Sister Family history of diabetes mellitus Sister Family history of diabetes mellitus Sister Family history of diabetes mellitus Sister Family history of diabetes mellitus Brother Family history of diabetes mellitus Brother Family history of diabetes mellitus Brother Family history of diabetes mellitus Other Diabetes No family history of adverse response to anesthesia Stroke Social History Smoking Status: Current every day smoker Tobacco Type: Cigarettes Cigarettes Per Day: 10; Second Hand Exposure: Yes; Do You Dip or Chew Tobacco: No; Hx Alcohol Use: No Hx Substance Use: Yes (Takes [place] PRN for chronic pain) Preferred Language: Telugu Communication Ability: Effective Foreign Food Specialty Cook Required: No Beliefs That Will Affect Care: None Current Living Situation: Family Current Living Situation Comment: Lives with grandson, has 04/10 caregivers Feels Safe at Home: Yes Assistive Devices: Bedside Commode, Stair Lift, Walker and Wheelchair Allergies Allergies Allergy/AdvReac Type Severity Reaction Status Date / Time methadone Allergy Severe "couldn't Verified 10/07/23 16:00 swallow/eyes coming out of head" nickel Allergy Severe swelling Verified 10/07/23 16:00 and infections nitroglycerin Allergy Intermediate DECREASED Verified 10/07/23 16:00 BP propoxyphene Allergy Intermediate edema to Verified 10/07/23 16:00 face/lips/tongue diclofenac Allergy Mild Rash Verified 10/07/23 16:00 hydrocodone Allergy Mild "severe Verified 10/07/23 16:00 constipation" levofloxacin [From Levaquin] Allergy Mild nausea/vomi Verified 10/07/23 16:00 ting Penicillins Allergy Mild severe Verified 10/07/23 16:00 diarrhea/rash sitagliptin [From Januvia] Allergy Mild rash Verified 10/07/23 16:00 "blood blisters" insulin aspart AdvReac Intermediate Rash Verified 10/07/23 16:00 [From Novolog U-100 Insulin aspart] insulin glargine AdvReac Intermediate Rash Verified 10/07/23 16:00 [From Lantus U-100 Insulin] broccoli AdvReac Mild Rash Verified 10/07/23 16:00 Home Meds Home Medications Medication Instructions Recorded Confirmed aspirin 81 mg tablet,delayed 81 mg PO QAM 11/06/18 10/07/23 release atorvastatin 40 mg tablet 40 mg PO QPM 11/06/18 10/07/23 buspirone 15 mg tablet 15 mg PO BID 11/06/18 10/07/23 clopidogrel 75 mg tablet 75 mg PO QAM 11/06/18 10/07/23 albuterol sulfate 90 mcg/actuation 2 puff inhalation Q4 PRN Shortness 11/16/18 10/07/23 aerosol inhaler (Ventolin HFA) Of Breath cholecalciferol (vitamin D3) 125 5,000 unit PO BID 03/21/19 10/07/23 mcg (5,000 unit) tablet pantoprazole 40 mg tablet,delayed 40 mg PO BID 03/21/19 10/07/23 release sucralfate 1 gram tablet (Carafate) 1 g PO ACHS 03/21/19 10/07/23 duloxetine 30 mg capsule,delayed 30 mg PO AMHS 12/13/22 10/07/23 release ipratropium 0.5 mg-albuterol 3 mg 3 ml inhalation Q4 PRN Shortness 12/13/22 10/07/23 (2.5 mg base)/3 mL nebulization Of Breath Or Wheezing soln Bifidobacterium infantis 4 mg 4 mg PO DAILY 08/30/23 10/07/23 capsule (Align) baclofen 5 mg tablet 5 mg PO TID muscle spasms 08/30/23 10/07/23 calcium carbonate 600 mg PO QAM 08/30/23 10/07/23 famotidine 20 mg tablet 20 mg PO QAM 08/30/23 10/07/23 furosemide 20 mg tablet (Lasix) 20 mg PO QAM 08/30/23 10/07/23 gabapentin 300 mg capsule 300 mg PO TID 08/30/23 10/07/23 hydrocodone 5 mg-acetaminophen 325 1 tab PO Q6 PRN Pain 08/30/23 10/07/23 mg tablet loratadine 10 mg tablet 10 mg PO QAM 08/30/23 10/07/23 multivitamin 1 tab PO DAILY 08/30/23 10/07/23 polyethylene glycol 3350 17 gram 17 g PO DAILY PRN Constipation 08/30/23 10/07/23 oral powder packet (Miralax) budesonide-formoterol HFA 80 2 inh inhalation BID 10/07/23 10/07/23 mcg-4.5 mcg/actuation aerosol inhaler dulaglutide 0.75 mg/0.5 mL 0.75 mg subcut WK 10/07/23 10/07/23 subcutaneous pen injector (Trulicity) empagliflozin 10 mg tablet 10 mg PO QAM PRN Only if BSG is 10/07/23 10/07/23 (Jardiance) over 150 ferrous sulfate 325 mg (65 mg 325 mg PO BID 10/07/23 10/07/23 iron) tablet (FeroSul) Previous Rx's Medication Instructions Recorded nicotine 7 mg/24 hr daily 1 patch transdermal QAM #30 ea 09/04/23 transdermal patch Results & Data (ED) Vital Signs Vital Signs - 24 hr 10/07/23 13:12 10/07/23 14:03 10/07/23 14:08 Temperature 36.3 C L Temperature Source Temporal Artery Scan Pulse Rate 86 83 Pulse Rate [Right Finger] 86 Pulse Rate from SpO2 Sensor Respiratory Rate 16 12 20 Respiratory Effort / Characteristics Non-Labored Non-Labored Respiratory Depth Normal Blood Pressure 103/73 Blood Pressure [Right Arm] 153/81 H Blood Pressure Mean 83 Blood Pressure Mean [Right Arm] 105 Blood Pressure Position [Right Arm] Lying Pulse Oximetry 97 96 95 Oxygen Delivery Method Room Air Room Air Sepsis Recent Fever Within 48 Hours No Sepsis New/Unexplained Change in Mental Status No Sepsis Action Taken by Nursing No Action Required 10/07/23 14:28 10/07/23 14:33 10/07/23 14:39 Temperature Temperature Source Pulse Rate 91 H 95 H Pulse Rate [Right Finger] Pulse Rate from SpO2 Sensor 93 H Respiratory Rate 12 Respiratory Effort / Characteristics Respiratory Depth Blood Pressure 133/56 L Blood Pressure [Right Arm] Blood Pressure Mean 72 Blood Pressure Mean [Right Arm] Blood Pressure Position [Right Arm] Pulse Oximetry 86 L Oxygen Delivery Method Sepsis Recent Fever Within 48 Hours Sepsis New/Unexplained Change in Mental Status Sepsis Action Taken by Nursing 10/07/23 15:03 10/07/23 15:33 10/07/23 16:00 Temperature Temperature Source Pulse Rate 96 H 85 89 Pulse Rate [Right Finger] Pulse Rate from SpO2 Sensor 96 H 83 88 Respiratory Rate 13 15 30 H Respiratory Effort / Characteristics Respiratory Depth Blood Pressure 126/77 Blood Pressure [Right Arm] Blood Pressure Mean 93 Blood Pressure Mean [Right Arm] Blood Pressure Position [Right Arm] Pulse Oximetry 96 96 96 Oxygen Delivery Method Sepsis Recent Fever Within 48 Hours Sepsis New/Unexplained Change in Mental Status Sepsis Action Taken by Nursing Laboratory Data 10/07/23 13:44 10/07/23 13:44 Lab Results 10/07/23 10/07/23 10/07/23 Range/Units 13:21 13:44 13:52 WBC 8.58 (4.8-10.8) K/ul RBC 5.38 (4.20-5.40) M/uL Hgb 14.6 (12.0-16.0) g/dl POC Hgb 16.3 H (12.0-16.0) g/dl Hct 47.2 H (37.0-47.0) % POC Hct 48 H (37-47) % MCV 87.7 (80.0-100.0) fL MCH 27.1 (25.0-34.0) pg MCHC 30.9 L (32.0-36.0) g/dL RDW Std Deviation 62.2 H (36.4-46.3) fL RDW Coeff of Shahrzad 20.3 H (11.5-14.5) % Plt Count 299 (130-400) K/uL MPV 10.4 (9.4-12.4) fL Immature Gran % (Auto) 0.3 % Neut % (Auto) 74.6 % Lymph % (Auto) 16.1 % [place] % (Auto) 7.9 % Eos % (Auto) 0.6 % Baso % (Auto) 0.5 % Neut # (Auto) 6.40 (1.40-6.50) K/uL Lymph # (Auto) 1.38 (1.20-3.40) K/uL [place] # (Auto) 0.68 H (0.11-0.59) K/uL Eos # (Auto) 0.05 (0.00-0.50) K/uL Baso # (Auto) 0.04 (0.00-0.20) K/uL Immature Gran # (Auto) 0.03 (0.01-0.20) K/uL RBC Morphology Unremarkable POC Sodium 134 L (135-144) mmol/L Sodium 133 L (136-145) mmol/L POC Potassium 4.5 (3.3-5.0) mmol/L Potassium 5.0 (3.5-5.1) mmol/L POC Chloride 96 L (101-112) mmol/L Chloride 96 L (98-107) mmol/L Carbon Dioxide 31 (21-32) mmol/L POC Total CO2 29 (24-31) mmol/L Anion Gap 6 (3-11) POC Anion Gap 15.0 L (16-25) mmol/L POC BUN 17 (7-18) mg/dl BUN 17 (6-23) mg/dl Creatinine 1.05 (0.6-1.2) mg/dl POC Creatinine 1.1 (0.6-1.3) mg/dl Est Cr Clr Drug Dosing 44.7 ml/min Est GFR ( Amer) 60.6 ml/min Est GFR (Non-Af Amer) 52.3 ml/min BUN/Creatinine Ratio 16.2 (10-20) Glucose 184 H (70-99(Fasting)) mg/dl POC Glucose (other) 176 H (70-99) mg/dl Lactate 1.8 (0.4-2.0) mmol/L Calcium 10.2 (8.6-10.3) mg/dl POC Ioniz Calcium Nora 1.16 (1.12-1.32) mmol/l Magnesium 2.3 (1.7-2.4) mg/dl Total Bilirubin 0.6 (0.2-1.0) mg/dl AST 31 (13-39) U/L ALT 17 (7-52) U/L Alkaline Phosphatase 99 (34-104) U/L Troponin I High Sens 13.6 (0-14) pg/ml Total Protein 8.1 (6.0-8.3) gm/dl Albumin 4.4 (3.4-5.0) gm/dl Globulin 3.7 (2.5-4.0) gm/dl Albumin/Globulin Ratio 1.2 (0.9-2) Lipase 17 (11-82) U/L TSH 1.078 (0.300-4.500) uIu/ml Urine Color Yellow Urine Appearance Cloudy A (Clear) Urine pH 6.0 (4.5-7.5) Ur Specific [place] 1.015 (1.000-1.030) Urine Protein Negative (Negative) Urine Glucose (UA) 3+ H (Negative) Urine Ketones Negative (Negative) Urine Blood 1+ H (Negative) Urine Nitrite Negative (Negative) Urine Bilirubin Negative (Negative) Urine Urobilinogen Negative (Negative) Ur Leukocyte Esterase Negative (Negative) Urine WBC (Auto) 6-10 H (0-5) /hpf Urine RBC (Auto) 6-10 H (0-2) /hpf U Hyaline Cast (Auto) 0-2 (0-2) /lpf U Epithel Cells (Auto) >20 H (0-2) /hpf Urine Bacteria (Auto) 4+ H (None Seen) POC Stool Occult Blood (Negative) Adenovirus (PCR) (NotDetected) B. pertussis DNA (PCR) (NotDetected) B.parapertussis DNA PCR (NotDetected) C. pneumoniae DNA (PCR) (NotDetected) Coronavirus OC43 (PCR) (NotDetected) Coronavirus HKU1 (PCR) (NotDetected) Coronavirus 229E (PCR) (NotDetected) SARS-CoV-2 (PCR) (NotDetected) Coronavirus NL63 (PCR) (NotDetected) Human Metapneumovir PCR (NotDetected) Influenza Type A (PCR) (NotDetected) Influenza Type B (PCR) (NotDetected) M. pneumoniae (PCR) (NotDetected) Parainfluenza 1 (PCR) (NotDetected) Parainfluenza 2 (PCR) (NotDetected) Parainfluenza 3 (PCR) (NotDetected) Parainfluenza 4 (PCR) (NotDetected) RSV (PCR) (NotDetected) Entero/Rhino (PCR) (NotDetected) Blood Type Antibody Screen 10/07/23 10/07/23 Range/Units 13:58 14:00 WBC (4.8-10.8) K/ul RBC (4.20-5.40) M/uL Hgb (12.0-16.0) g/dl POC Hgb (12.0-16.0) g/dl Hct (37.0-47.0) % POC Hct (37-47) % MCV (80.0-100.0) fL MCH (25.0-34.0) pg MCHC (32.0-36.0) g/dL RDW Std Deviation (36.4-46.3) fL RDW Coeff of Shahrzad (11.5-14.5) % Plt Count (130-400) K/uL MPV (9.4-12.4) fL Immature Gran % (Auto) % Neut % (Auto) % Lymph % (Auto) % [place] % (Auto) % Eos % (Auto) % Baso % (Auto) % Neut # (Auto) (1.40-6.50) K/uL Lymph # (Auto) (1.20-3.40) K/uL [place] # (Auto) (0.11-0.59) K/uL Eos # (Auto) (0.00-0.50) K/uL Baso # (Auto) (0.00-0.20) K/uL Immature Gran # (Auto) (0.01-0.20) K/uL RBC Morphology POC Sodium (135-144) mmol/L Sodium (136-145) mmol/L POC Potassium (3.3-5.0) mmol/L Potassium (3.5-5.1) mmol/L POC Chloride (101-112) mmol/L Chloride (98-107) mmol/L Carbon Dioxide (21-32) mmol/L POC Total CO2 (24-31) mmol/L Anion Gap (3-11) POC Anion Gap (16-25) mmol/L POC BUN (7-18) mg/dl BUN (6-23) mg/dl Creatinine (0.6-1.2) mg/dl POC Creatinine (0.6-1.3) mg/dl Est Cr Clr Drug Dosing ml/min Est GFR ( Amer) ml/min Est GFR (Non-Af Amer) ml/min BUN/Creatinine Ratio (10-20) Glucose (70-99(Fasting)) mg/dl POC Glucose (other) (70-99) mg/dl Lactate (0.4-2.0) mmol/L Calcium (8.6-10.3) mg/dl POC Ioniz Calcium Nora (1.12-1.32) mmol/l Magnesium (1.7-2.4) mg/dl Total Bilirubin (0.2-1.0) mg/dl AST (13-39) U/L ALT (7-52) U/L Alkaline Phosphatase (34-104) U/L Troponin I High Sens (0-14) pg/ml Total Protein (6.0-8.3) gm/dl Albumin (3.4-5.0) gm/dl Globulin (2.5-4.0) gm/dl Albumin/Globulin Ratio (0.9-2) Lipase (11-82) U/L TSH (0.300-4.500) uIu/ml Urine Color Urine Appearance (Clear) Urine pH (4.5-7.5) Ur Specific [place] (1.000-1.030) Urine Protein (Negative) Urine Glucose (UA) (Negative) Urine Ketones (Negative) Urine Blood (Negative) Urine Nitrite (Negative) Urine Bilirubin (Negative) Urine Urobilinogen (Negative) Ur Leukocyte Esterase (Negative) Urine WBC (Auto) (0-5) /hpf Urine RBC (Auto) (0-2) /hpf U Hyaline Cast (Auto) (0-2) /lpf U Epithel Cells (Auto) (0-2) /hpf Urine Bacteria (Auto) (None Seen) POC Stool Occult Blood Positive A (Negative) Adenovirus (PCR) Not Detected (NotDetected) B. pertussis DNA (PCR) Not Detected (NotDetected) B.parapertussis DNA PCR Not Detected (NotDetected) C. pneumoniae DNA (PCR) Not Detected (NotDetected) Coronavirus OC43 (PCR) Not Detected (NotDetected) Coronavirus HKU1 (PCR) Not Detected (NotDetected) Coronavirus 229E (PCR) Not Detected (NotDetected) SARS-CoV-2 (PCR) Not Detected (NotDetected) Coronavirus NL63 (PCR) Not Detected (NotDetected) Human Metapneumovir PCR Not Detected (NotDetected) Influenza Type A (PCR) Not Detected (NotDetected) Influenza Type B (PCR) Not Detected (NotDetected) M. pneumoniae (PCR) Not Detected (NotDetected) Parainfluenza 1 (PCR) Not Detected (NotDetected) Parainfluenza 2 (PCR) Not Detected (NotDetected) Parainfluenza 3 (PCR) Not Detected (NotDetected) Parainfluenza 4 (PCR) Not Detected (NotDetected) RSV (PCR) Not Detected (NotDetected) Entero/Rhino (PCR) Not Detected (NotDetected) Blood Type A Positive Antibody Screen NEGATIVE Administered Medications Pantoprazole Sodium 40 mg/ (Dextrose) 100 mls @ 20 mls/hr IV Q5H FABIAN Stop: 11/06/23 13:59 Last Admin: 10/07/23 14:37 Dose: 8 mg/hr, 20 mls/hr Documented By: BERTA Sodium Chloride (Nss) 1,000 mls @ 100 mls/hr IV .Q10H FABIAN Stop: 10/08/23 12:14 Last Admin: 10/07/23 16:36 Dose: 100 mls/hr Documented By: NGA Discontinued Medications Fentanyl Citrate (Fentanyl Citrate Pf 100 Mcg/2 Ml Vial) 50 mcg IV NOW STA Stop: 10/07/23 13:33 Last Admin: 10/07/23 13:54 Dose: 50 mcg Documented By: BERTA Pantoprazole Sodium 80 mg/ (Dextrose) 120 mls @ 480 mls/hr IV NOW ONE Stop: 10/07/23 13:45 Last Infusion: 10/07/23 14:39 Dose: Infused Documented By: Admin: 10/07/23 13:54 Dose: 480 mls/hr Documented By: BERTA Ioversol (Optiray 320 100ml) 94 ml IV ONCE ONE Stop: 10/07/23 14:16 Last Admin: 10/07/23 14:15 Dose: 94 ml Documented By: PATRICIA Ondansetron HCl (Ondansetron Inj 2 Mg/Ml 2 Ml Vial) 4 mg IV NOW STA Stop: 10/07/23 13:33 Last Admin: 10/07/23 13:55 Dose: 4 mg Documented By: BERTA Imaging Data Radiologist's Impression: Abdomen/Pelvis CT 10/07/23 13:[address] WITH IV CONTRAST CT DOSE: 1892.85 mGy.cm HISTORY: weak, headache, bloody stool, dizzy TECHNIQUE: Multiaxial CT images of the abdomen and pelvis were performed following the use of intravenous contrast. A dose lowering technique was utilized adhering to the principles of ALARA. COMPARISON STUDY: Abdomen and pelvis CT 08/30/2023. FINDINGS: Mild dependent changes within the lung bases. Mild interstitial thickening which could be chronic. No pneumoperitoneum. No pneumatosis. There are old bilateral rib fractures. There is an old distal sacral fracture noted. 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 There is a femoral- femoral bypass graft which is patent. Subtle nodular contour to the liver suggestive of mild cirrhosis. No hepatic masses. The main portal vein is patent. The gallbladder, pancreas, spleen, and adrenal glands are within normal limits. A few subcentimeter bilateral renal hypodense lesions are too small to characterize but statistically represent cysts. No hydronephrosis. Calcified plaque within the normal caliber abdominal aorta. No retroperitoneal or pelvic lymphadenopathy. No pelvic free fluid. Prior hysterectomy. Mild bladder wall thickening has improved. A superior mesenteric artery stent appears patent. Moderate fecal retention. A few colonic diverticula. No evidence for acute diverticulitis. No bowel wall thickening or obstruction. Normal appendix. IMPRESSION: 1. No bowel wall thickening or obstruction. 2. Normal appendix. 3. Moderate fecal retention. 4. Mild bladder wall thickening which has improved. 5. Additional findings as described above. ACT 112: Negative or not required by law. Electronically signed by: Erick Crandall M.D. 10/07/2023 2:51 PM Chest X-Ray 10/07/23 13:31 XR chest 1V portable HISTORY: weakness COMPARISON: Chest 08/30/2023. FINDINGS: No pneumothorax. No pleural effusions. The cardiac silhouette is top normal in size. No new focal lung consolidations to suggest a pneumonia. No evidence for pulmonary edema. Mild interstitial thickening which is likely chronic. Calcifications within the aortic knob. Old left-sided rib fractures. There is again noted an 11 mm irregular nodule within the right upper lobe. IMPRESSION: 1. No acute process within the chest. 2. Redemonstration of the 11 mm irregular nodule within the right upper lobe. ACT 112: Negative or not required by law. Electronically signed by: Erick Crandall M.D. 10/07/2023 2:[address] 10/07/23 13:[address] DOSE: HISTORY: weak, headache, bloody stool, dizzy TECHNIQUE: Multiaxial CT images of the head were performed without the use of intravenous contrast. Automated exposure control was utilized for this study. A dose lowering technique was utilized adhering to the principles of ALARA. Comparison: Head CT 01/04/2023. Findings: The paranasal sinuses and mastoid air cells are clear. There is an old large right MCA territory infarct again noted. There is no mass, hematoma, midline shift, acute infarct. Mild atrophy and microvascular ischemic changes remain unchanged. The calvarium and skull base are intact. Impression: 1. No acute infarct or intracranial hemorrhage. 2. 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 ACT 112: Negative or not required by law. Electronically signed by: Erick Crandall M.D. 10/07/2023 3:08 PM Discharge Plan Visit Data Chief Complaint: Illness Stated Complaint: ILLNESS, DOC REF ED Provider: Heladio Diaz Discharge Problem: Rectal bleeding, Chest pain, Dizziness, Headache Patient Disposition: Being Evaluated by Hospitalist Forms Stand Alone Forms: [facility] [employer] Prescriptions Prescriptions: No Action atorvastatin 40 mg tablet 40 mg PO QPM clopidogrel 75 mg tablet 75 mg PO QAM aspirin 81 mg Tablet,Delayed Release (Dr/Ec) 81 mg PO QAM buspirone 15 mg tablet 15 mg PO BID albuterol sulfate [Ventolin HFA] 90 mcg/actuation Hfa Aerosol Inhaler 2 puff INHALATION Q4 PRN (Reason: Shortness Of Breath) sucralfate [Carafate] 1 gram Tablet 1 g PO ACHS pantoprazole 40 mg Tablet,Delayed Release (Dr/Ec) 40 mg PO BID cholecalciferol (vitamin D3) 125 mcg (5,000 unit) Tablet 5,000 unit PO BID ipratropium-albuterol 0.5 mg-3 mg(2.5 mg base)/3 mL solution for nebulization 3 ml INHALATION Q4 PRN (Reason: Shortness Of Breath Or Wheezing) duloxetine 30 mg capsule,delayed release(DR/EC) 30 mg PO AMHS multivitamin Tablet 1 tab PO DAILY polyethylene glycol 3350 [Miralax] 17 gram Powder In Packet 17 g PO DAILY PRN (Reason: Constipation) hydrocodone-acetaminophen 5-325 mg tablet 1 tab PO Q6 PRN (Reason: Pain) calcium carbonate 600 mg calcium (1,500 mg) Tablet 600 mg PO QAM famotidine 20 mg tablet 20 mg PO QAM gabapentin 300 mg capsule 300 mg PO TID furosemide [Lasix] 20 mg Tablet 20 mg PO QAM loratadine 10 mg tablet 10 mg PO QAM baclofen 5 mg tablet 5 mg PO TID Align 4 mg Capsule 4 mg PO DAILY nicotine 7 mg/24 hr Patch 24 Hour 1 patch transdermal QAM Qty: 30 0RF ferrous sulfate [FeroSul] 325 mg (65 mg iron) tablet 325 mg PO BID Jardiance 10 mg tablet 10 mg PO QAM PRN (Reason: Only if BSG is over 150) Trulicity 0.75 mg/0.5 mL pen injector 0.75 mg SUBCUT WK Rx Instructions: Tuesday budesonide-formoterol 80-4.5 mcg/actuation HFA aerosol inhaler 2 inh INHALATION BID Referrals Referrals: Courtney Jay MD [Primary Care Provider] -
--- NOTE | 2023-10-07 14:52 | CT Scan Report ---
ABDOMEN AND PELVIS CT WITH IV CONTRAST CT DOSE: 1892.85 mGy.cm HISTORY: weak, headache, bloody stool, dizzy TECHNIQUE: Multiaxial CT images of the abdomen and pelvis were performed following the use of intrave nous contrast. A dose lowering technique was utilized adhering to the principles of ALARA. COMPARISON STUDY: Abdomen and pelvis CT 08/30/2023. FINDINGS: Mild dependent changes within the lung bases. Mild interstitial thickening which could be c hronic. No pneumoperitoneum. No pneumatosis. There are old bilateral rib fractures. There is an old d istal sacral fracture noted. 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 There is a fe moral-femoral bypass graft which is patent. Subtle nodular contour to the liver suggestive of mild ci rrhosis. No hepatic masses. The main portal vein is patent. The gallbladder, pancreas, spleen, and ad renal glands are within normal limits. A few subcentimeter bilateral renal hypodense lesions are too small to characterize but statistically represent cysts. No hydronephrosis. Calcified plaque within t he normal caliber abdominal aorta. No retroperitoneal or pelvic lymphadenopathy. No pelvic free fluid . Prior hysterectomy. Mild bladder wall thickening has improved. A superior mesenteric artery stent a ppears patent. Moderate fecal retention. A few colonic diverticula. No evidence for acute diverticuli tis. No bowel wall thickening or obstruction. Normal appendix. IMPRESSION: 1. No bowel wall thickening or obstruction. 2. Normal appendix. 3. Moderate fecal retention. 4. Mild bladder wall thickening which has improved. 5. Additional findings as described above. ACT 112: Negative or not required by law. Electronically signed by: Erick Crandall M.D. 10/07/2023 2:51 PM
[2023-10-07 15:01] LABS: Adenovirus PCR Not Detected (NotDetected); Bordetella parapertussis PCR Not Detected (NotDetected); Bordetella pertussis PCR Not Detected (NotDetected); Chlamydia pneumoniae PCR Not Detected (NotDetected); Coronavirus 229E PCR Not Detected (NotDetected); Coronavirus CoV-2 (COVID19)PCR Not Detected (NotDetected); Coronavirus HKU1 PCR Not Detected (NotDetected); Coronavirus NL63 PCR Not Detected (NotDetected); Coronavirus OC43PCR Not Detected (NotDetected); Human Metapneumovirus PCR Not Detected (NotDetected); Influenza A PCR Not Detected (NotDetected); Influenza B PCR Not Detected (NotDetected); Mycoplasma pneumoniae PCR Not Detected (NotDetected); Parainfluenza Virus 1 PCR Not Detected (NotDetected); Parainfluenza Virus 2 PCR Not Detected (NotDetected); Parainfluenza Virus 3 PCR Not Detected (NotDetected); Parainfluenza Virus 4 PCR Not Detected (NotDetected); Respiratory Syncytial VirusPCR Not Detected (NotDetected); Rhinovirus/Enterovirus PCR Not Detected (NotDetected)
--- NOTE | 2023-10-07 15:11 | CT Scan Report ---
HEAD CT NONCONTRAST CT DOSE: HISTORY: weak, headache, bloody stool, dizzy TECHNIQUE: Multiaxial CT images of the head were performed without the use of intravenous contrast. A utomated exposure control was utilized for this study. A dose lowering technique was utilized adheri ng to the principles of ALARA. Comparison: Head CT 01/04/2023. Findings: The paranasal sinuses and mastoid air cells are clear. There is an old large right MCA terr itory infarct again noted. There is no mass, hematoma, midline shift, acute infarct. Mild atrophy and microvascular ischemic changes remain unchanged. The calvarium and skull base are intact. Impression: 1. No acute infarct or intracranial hemorrhage. 2. 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 ACT 112: Negative or not required by law. Electronically signed by: Erick Crandall M.D. 10/07/2023 3:08 PM
[2023-10-07] MEDS: SODIUM CHLORIDE 0.9% 1,000 ML IV SCH (16:36)
[2023-10-07 17:08] LABS: Epithelial Cell Urine Auto >20 /hpf (0-2)
--- NOTE | 2023-10-07 17:08 | History & Physical Report ---
Date of Service October 07, 2023 Assessment & Plan (1) GI bleed: Plan: Admit to [facility] [place] with telemetry Patient presenting from home with reports of diarrhea that she describes as black and tarry. Patient is on DAPT for extensive PVD and CAD history. In the ED, Hgb 14.6. Suspect some component of hemoconcentration. Stool was heme positive S/p Protonix bolus and drip in the ED, will continue with IVF Serial H&H Hold ASA and Plavix for now, resume promptly once stable given extensive PVD and CAD history Clear liquids, n.p.o. after midnight GI consult EGD 01/2019 - Esophageal mucosal changes secondary to established short-segment Pendleton's disease. Erythematous mucosa in the gastric body. Biopsied. Normal duodenal bulb and second portion of the duodenum. 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 Noted documented allergy to NovoLog however reviewed with pharmacy and patient has tolerated in the past. (5) CVA (cerebral vascular accident): Plan: s/p right CEA Holding ASA and Plavix as above Continue statin (6) Pendleton esophagus: Plan: On IV PPI as above DVT PROPHYLAXIS SCDs for now in the setting of GI bleeding Patient seen in collaboration with Dr. Mendez' I spent a total of 75 minutes coordinating, documenting, and providing care for this patient excluding time spent in the performance of separately billed services. This included personally reviewing all current laboratories and imaging studies, medication reconciliation, outpatient chart review, and discussion with specialists. 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 History is obtained from the patient and review of outpatient PCP, vascular, cardiology records. Patient reports she was feeling in her usual state of health up until yesterday. States that she developed diarrhea that has been black in color. She also reports associated dizziness. Patient then presented to the ED for further evaluation. She reports epigastric discomfort that has been similar to bleeding ulcers in the past. She has had some mild nausea but denies vomiting. No fevers or chills. Denies chest pain or shortness of breath. No urinary symptoms. In the ED, stool was heme positive. Hgb 14.6. Patient was given IV fentanyl, IV Zofran, IV PPI bolus followed by drip. Allergies Allergy/AdvReac Type Severity Reaction Status Date / Time methadone Allergy Severe "couldn't Verified 10/07/23 16:00 swallow/eyes coming out of head" nickel Allergy Severe swelling Verified 10/07/23 16:00 and infections nitroglycerin Allergy Intermediate DECREASED Verified 10/07/23 16:00 BP propoxyphene Allergy Intermediate edema to Verified 10/07/23 16:00 face/lips/tongue diclofenac Allergy Mild Rash Verified 10/07/23 16:00 hydrocodone Allergy Mild "severe Verified 10/07/23 16:00 constipation" levofloxacin [From Levaquin] Allergy Mild nausea/vomi Verified 10/07/23 16:00 ting Penicillins Allergy Mild severe Verified 10/07/23 16:00 diarrhea/rash sitagliptin [From Januvia] Allergy Mild rash Verified 10/07/23 16:00 "blood blisters" insulin aspart AdvReac Intermediate Rash Verified 10/07/23 16:00 [From Novolog U-100 Insulin aspart] insulin glargine AdvReac Intermediate Rash Verified 10/07/23 16:00 [From Lantus U-100 Insulin] broccoli AdvReac Mild Rash Verified 10/07/23 16:00 Home Medications Medication Instructions Recorded Confirmed Type aspirin 81 mg tablet,delayed 81 mg PO QAM 11/06/18 10/07/23 History release atorvastatin 40 mg tablet 40 mg PO QPM 11/06/18 10/07/23 History buspirone 15 mg tablet 15 mg PO BID 11/06/18 10/07/23 History clopidogrel 75 mg tablet 75 mg PO QAM 11/06/18 10/07/23 History albuterol sulfate 90 mcg/actuation 2 puff inhalation Q4 PRN Shortness 11/16/18 10/07/23 History aerosol inhaler (Ventolin HFA) Of Breath cholecalciferol (vitamin D3) 125 5,000 unit PO BID 03/21/19 10/07/23 History mcg (5,000 unit) tablet pantoprazole 40 mg tablet,delayed 40 mg PO BID 03/21/19 10/07/23 History release sucralfate 1 gram tablet (Carafate) 1 g PO ACHS 03/21/19 10/07/23 History duloxetine 30 mg capsule,delayed 30 mg PO AMHS 12/13/22 10/07/23 History release ipratropium 0.5 mg-albuterol 3 mg 3 ml inhalation Q4 PRN Shortness 12/13/22 10/07/23 History (2.5 mg base)/3 mL nebulization Of Breath Or Wheezing soln Bifidobacterium infantis 4 mg 4 mg PO DAILY 08/30/23 10/07/23 History capsule (Align) baclofen 5 mg tablet 5 mg PO TID muscle spasms 08/30/23 10/07/23 History calcium carbonate 600 mg PO QAM 08/30/23 10/07/23 History famotidine 20 mg tablet 20 mg PO QAM 08/30/23 10/07/23 History furosemide 20 mg tablet (Lasix) 20 mg PO QAM 08/30/23 10/07/23 History gabapentin 300 mg capsule 300 mg PO TID 08/30/23 10/07/23 History hydrocodone 5 mg-acetaminophen 325 1 tab PO Q6 PRN Pain 08/30/23 10/07/23 History mg tablet loratadine 10 mg tablet 10 mg PO QAM 08/30/23 10/07/23 History multivitamin 1 tab PO DAILY 08/30/23 10/07/23 History polyethylene glycol 3350 17 gram 17 g PO DAILY PRN Constipation 08/30/23 10/07/23 History oral powder packet (Miralax) nicotine 7 mg/24 hr daily 1 patch transdermal QAM #30 ea 09/04/23 10/07/23 Rx transdermal patch budesonide-formoterol HFA 80 2 inh inhalation BID 10/07/23 10/07/23 History mcg-4.5 mcg/actuation aerosol inhaler dulaglutide 0.75 mg/0.5 mL 0.75 mg subcut WK 10/07/23 10/07/23 History subcutaneous pen injector (Trulicity) empagliflozin 10 mg tablet 10 mg PO QAM PRN Only if BSG is 10/07/23 10/07/23 History (Jardiance) over 150 ferrous sulfate 325 mg (65 mg 325 mg PO BID 10/07/23 10/07/23 History iron) tablet (FeroSul) Past Med/Surg History Problem List ASCVD (arteriosclerotic cardiovascular disease) PVD (peripheral vascular disease) Severe mitral regurgitation Obesity (BMI 30.0-34.9) Emphysema lung Right upper lobe pulmonary nodule Status post carotid endarterectomy (Chronic) right Tobacco use disorder, continuous (Chronic) 2ppd CAD (coronary artery disease) (Chronic) Anemia Melena Anxiety (Chronic) Pendleton esophagus (Chronic) History of carotid endarterectomy (Chronic) 2009 on right side Diabetes mellitus, type II (Chronic) COPD (chronic obstructive pulmonary disease) (Chronic) inhaler prn CVA (cerebral vascular accident) (Chronic) 2008--slight left side weakness (no assistive devices)--follows with Dr. Astudillo PVD (peripheral vascular disease) (Chronic) Hyperlipidemia (Chronic) HTN (hypertension) (Chronic) H/O: hysterectomy (Chronic) Medical History (Updated 10/07/23 @ 17:03 by SHREE Fitch) Osteoarthritis GI bleed Anemia Glaucoma bilt eyes On anticoagulant therapy plavix daily Coronary artery disease, occlusive Surgical History Status post femoropopliteal bypass surgery 11/06/[address] Jara---thrombectomy/Femoral-femoral bypass History of colonoscopy with polypectomy History of bilateral tubal ligation History of dilatation and curettage x3 History of repair of right rotator cuff x2 History of esophagogastroduodenoscopy (EGD) History of appendectomy History of tooth extraction most teeth History of endoscopic sinus surgery History of bilateral cataract extraction History of heart artery stent x1 before 2000? @ [facility] History of cardiac cath x2 both @ [facility]--2000 with 1 stent/2003--no stent, instead fem-pop bypass History of bronchoscopy Status post femoral-popliteal bypass surgery 2004 Family History Sister Family history of diabetes mellitus Family history of esophageal cancer Family hx of colon cancer Sister Family history of diabetes mellitus Sister Family history of diabetes mellitus Sister Family history of diabetes mellitus Sister Family history of diabetes mellitus Sister Family history of diabetes mellitus Sister Family history of diabetes mellitus Brother Family history of diabetes mellitus Brother Family history of diabetes mellitus Brother Family history of diabetes mellitus Other Diabetes No family history of adverse response to anesthesia Stroke Social History Smoking Status: Current every day smoker Tobacco Type: Cigarettes Cigarettes Per Day: 10; Second Hand Exposure: Yes; Do You Dip or Chew Tobacco: No; Hx Alcohol Use: No Hx Substance Use: Yes (Takes [place] PRN for chronic pain) Preferred Language: Czech Communication Ability: Effective [place] 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 Mendez' addendum for physical exam Results & Data Results & Data Vital Signs (Past 12 Hours) Vital Signs Temp Pulse Pulse Resp BP BP Pulse Ox 10/07/23 16:00 89 30 H 126/77 96 10/07/23 15:33 85 15 96 10/07/23 15:03 96 H 13 96 10/07/23 14:39 95 H 12 86 L 10/07/23 14:33 91 H 10/07/23 14:28 133/56 L 10/07/23 14:08 86 20 153/81 H 95 10/07/23 14:03 83 12 96 10/07/23 13:12 36.3 C L 86 16 103/73 97 O2 Del Method 10/07/23 16:00 10/07/23 15:33 10/07/23 15:03 10/07/23 14:39 10/07/23 14:33 10/07/23 14:28 10/07/23 14:08 10/07/23 14:03 Room Air 10/07/23 13:12 Room Air Laboratory Results Short CBC 10/07/23 Range/Units 13:44 WBC 8.58 (4.8-10.8) K/ul Hgb 14.6 (12.0-16.0) g/dl Hct 47.2 H (37.0-47.0) % Plt Count 299 (130-400) K/uL BMP 10/07/23 13:44 Sodium 133 L Potassium 5.0 Chloride 96 L Carbon Dioxide 31 BUN 17 Creatinine 1.05 Glucose 184 H Calcium 10.2 Liver Function 10/07/23 Range/Units 13:44 Total Bilirubin 0.6 (0.2-1.0) mg/dl AST 31 (13-39) U/L ALT 17 (7-52) U/L Alkaline Phosphatase 99 (34-104) U/L Albumin 4.4 (3.4-5.0) gm/dl Urine 10/07/23 Range/Units 13:21 Urine Color Yellow Urine Appearance Cloudy A (Clear) Urine pH 6.0 (4.5-7.5) Ur Specific [place] 1.015 (1.000-1.030) Urine Protein Negative (Negative) Urine Glucose (UA) 3+ H (Negative) Diagnostic Findings Abdomen/Pelvis CT 10/07/23 13:[address] WITH IV CONTRAST CT DOSE: 1892.85 mGy.cm HISTORY: weak, headache, bloody stool, dizzy TECHNIQUE: Multiaxial CT images of the abdomen and pelvis were performed following the use of intravenous contrast. A dose lowering technique was utilized adhering to the principles of ALARA. COMPARISON STUDY: Abdomen and pelvis CT 08/30/2023. FINDINGS: Mild dependent changes within the lung bases. Mild interstitial thickening which could be chronic. No pneumoperitoneum. No pneumatosis. There are old bilateral rib fractures. There is an old distal sacral fracture noted. 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 There is a femoral- femoral bypass graft which is patent. Subtle nodular contour to the liver suggestive of mild cirrhosis. No hepatic masses. The main portal vein is patent. The gallbladder, pancreas, spleen, and adrenal glands are within normal limits. A few subcentimeter bilateral renal hypodense lesions are too small to characterize but statistically represent cysts. No hydronephrosis. Calcified plaque within the normal caliber abdominal aorta. No retroperitoneal or pelvic lymphadenopathy. No pelvic free fluid. Prior hysterectomy. Mild bladder wall thickening has improved. A superior mesenteric artery stent appears patent. Moderate fecal retention. A few colonic diverticula. No evidence for acute diverticulitis. No bowel wall thickening or obstruction. Normal appendix. IMPRESSION: 1. No bowel wall thickening or obstruction. 2. Normal appendix. 3. Moderate fecal retention. 4. Mild bladder wall thickening which has improved. 5. Additional findings as described above. ACT 112: Negative or not required by law. Electronically signed by: Erick Crandall M.D. 10/07/2023 2:51 PM Chest X-Ray 10/07/23 13:31 XR chest 1V portable HISTORY: weakness COMPARISON: Chest 08/30/2023. FINDINGS: No pneumothorax. No pleural effusions. The cardiac silhouette is top normal in size. No new focal lung consolidations to suggest a pneumonia. No evidence for pulmonary edema. Mild interstitial thickening which is likely chronic. Calcifications within the aortic knob. Old left-sided rib fractures. There is again noted an 11 mm irregular nodule within the right upper lobe. IMPRESSION: 1. No acute process within the chest. 2. Redemonstration of the 11 mm irregular nodule within the right upper lobe. ACT 112: Negative or not required by law. Electronically signed by: Erick Crandall M.D. 10/07/2023 2:[address] 10/07/23 13:[address] DOSE: HISTORY: weak, headache, bloody stool, dizzy TECHNIQUE: Multiaxial CT images of the head were performed without the use of intravenous contrast. Automated exposure control was utilized for this study. A dose lowering technique was utilized adhering to the principles of ALARA. Comparison: Head CT 01/04/2023. Findings: The paranasal sinuses and mastoid air cells are clear. There is an old large right MCA territory infarct again noted. There is no mass, hematoma, midline shift, acute infarct. Mild atrophy and microvascular ischemic changes remain unchanged. The calvarium and skull base are intact. Impression: 1. No acute infarct or intracranial hemorrhage. 2. 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 ACT 112: Negative or not required by law. Electronically signed by: Erick Crandall M.D. 10/07/2023 3:08 PM Supervising Physician Co-Signing Physician Notes I have seen and discussed the case with the collaborating advanced practitioner. I agree with the above H&P. I have reviewed and confirmed the patients medical history, the findings on physical examination, and the patients diagnosis and treatment plan with Tiana SWANN and agree with the information documented. In short, Ms. 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 Reports 24 hours of black stool and food aversion 2/2 epigastric pain. History of GIB previously. On DAPT with recent stent 10/2022 GENERAL APPEARANCE: AxOx4, generally well-appearing female HEENT: NC, AT. MMM. EOMI, clear conjunctiva, oropharynx clear. NECK: Supple without lymphadenopathy. No stiffness or restricted ROM. HEART: Normal rate and regular rhythm, no murmur appreciated LUNGS: CTAB however diminished ABDOMEN: TTP in epigastrium, LUQ BACK: No CVAT, no obvious deformity. EXTREMITIES: Without cyanosis, clubbing or edema. left BKA NEUROLOGICAL: Grossly nonfocal. Alert and oriented, moving all 4 extremities. left facial droop, chronic LUE 4/5 strength Skin: Warm and dry without any rash. 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 All of the aforementioned completed outside of collaborating with the assigned advanced practitioner for a full treatment plan. I have reviewed the advanced practitioner's documentation, and I agree with, and take responsibility for the plan of care
[2023-10-07] MEDS ORDERED: GLUCOSE 10 TAB/TUBE PO PRN (20:32)
[2023-10-07] MEDS ORDERED: ACETAMINOPHEN 325 MG TAB PO PRN (20:32)
[2023-10-07] MEDS ORDERED: CARBOHYDRATES FOR HYPOGLYCEMIA PO PRN (20:32)
[2023-10-07] MEDS ORDERED: GLUCAGON FOR INJ 1 MG VIAL SQ PRN (20:32)
[2023-10-07] MEDS ORDERED: DEXTROSE 50% 50 ML SYRINGE IV PRN (20:32)
[2023-10-07] MEDS ORDERED: GLUCOSE 40% GEL 15 GM TUBE PO PRN (20:32)
--- OUTSIDE RECORDS SUMMARY | 2023-10-07 20:34 | External Medical Summary | Summary of Care ---
Author Name Unknown Organization [facility] Address [address] [place] [address] Phone [phone] Care Team Providers Care Black Jack Dealer Name Role Phone Courtney Restrepo MD Primary Care Prov ider Encounter Details Date Type Department Care Team (Late st Contact Info) Description 10/04/2023 Population Health External Data Unspecified Department Allergies [...] edema Nitroglycerin Hypotension 12/20/2018 Penicillins Nausea/vomiting 05/17/[address] Hives 10/02/2018 Propoxyphene Edema face/lips/tongue,Hiv es 06/26/2009 documented as of this encounter (statuses as of 10/07/2023) Medications Medication Sig Dispensed Refills Start Date [...] bedtime. 180 Capsule 2 10/15/2022 Active OneTouch Deldwayne Lancets 30GIndications:Type 2 diabetes mellitus with hemoglobin A1c goal of less than 8.0% (HCC) Use to test glucose daily. E11.9 100 Each 5 11/29/2022 Active OneTouch Verio w/Device KitIndications:Type 2 diabetes mellitus with hemoglobin A1c goal of less than 8.0% (HCC) Use to test glucose daily. E11.9 1 Kit 11/29/2022 Active NovoLOG FlexPen 100 UNIT/ML Subcutaneous [...] 20 MG Oral Tablet (Lasix)Indications:A therosclerosis of [place] artery of left lower extremity with rest [...] EVERY MORNING 90 Tablet 3 08/05/2023 Active Atorvastatin Calcium 40 MG Oral Tablet (Lipitor) Take 1 Tablet by mouth in the morning. Active Famotidine 20 MG Oral Tablet (Pepcid) Take 1 Tablet by mouth in the morning. 07/28/2023 Active Clindamycin HCl 300 MG Oral Capsule Take 1 Capsule by mouth in the morning and 1 Capsule at noon and 1 Capsule before bedtime. 09/04/2023 Active Budesonide-Formotero l Fumarate 80-4.5 MCG/ACT Inhalation Aerosol (Symbicort)Indicatio ns:COPD, group D, by GOLD 2017 classification ([facility]) Inhale 2 Puffs by mouth in the morning and 2 Puffs before bedtime. 10.2 g 5 09/06/2023 Active Dulaglutide 0.75 MG/0.5ML Subcutaneous Solution Pen-injector (TrXceive) Inject 0.75 mg under the skin once a week. DxE11.9 2 mL 3 09/07/2023 Active Ferrous Sulfate 325 (65 Fe) MG Oral Tablet (Feosol)Indications: Iron deficiency anemia, unspecified iron deficiency anemia type Take 1 Tablet by mouth in the morning and 1 Tablet before bedtime. 60 Tablet 11 09/08/2023 Active HYDROcodone-Acetamin ophen 5-325 MG Oral TabletIndications:S/ P AKA (above knee amputation), left ([facility]) Take 1 Tablet by mouth every 6 hours as needed for Pain, Mild or Pain, Severe. 60 Tablet 09/20/2023 Active Doxycycline Monohydrate 100 MG Oral Capsule Take 1 Capsule by mouth in the morning and 1 Capsule before bedtime. 09/24/2023 Active Empagliflozin 10 MG Oral Tablet (Jardiance)Indicatio ns:Type 2 diabetes mellitus with hemoglobin A1c goal of less than 8.0% ([facility]) Take 1 Tablet by mouth in the morning. 30 Tablet 5 09/27/2023 Active Mupirocin 2 % External Ointment (Bactroban)Indicatio ns:Skin tear of right elbow without complication, initial encounter Apply topically to affected area 3 times a day for 14 days. Apply to affected area. 22 g 1 09/27/2023 Active Baclofen 5 MG Oral Tablet (Lioresal) Take 1 Tablet by mouth in the morning and 1 Tablet at noon and 1 Tablet before bedtime. As needed for muscle spasm. 30 Tablet 09/30/2023 Active documented as of this encounter (statuses as of 10/07/2023) Active Problems Problem Noted Date Diagnosed Date Ischemic rest pain of lower extremity 07/14/2023 Ulcer of right foot, limited to breakdown of ski n 07/14/2023 Dependent rubor 07/14/2023 Atherosclerosis of [place] artery of extremity Pre-ulcerative corn or callous [...] rinse after steroid. Test performed by Bibiana TAILERCPA CPFT Old HI (myocardial infarction) 02/21/2019 Bilateral carotid artery stenosis [...] rinse after steroid. Test performed by Bibiana TAILERCPA CPFT GENERAL OSTEOARTHROSIS BMI 32.0-32.9,adult Tobacco use disorder Hyperlipidemia with target LDL less than 70 Overview: ICD-10 update of inactive term RSD upper limb Overview: left arm Generalized anxiety disorder documented as of this encounter (statuses as of 10/07/2023) Resolved Problems Problem Noted Date Diagnosed Date [...] as of this encounter (statuses as of 10/07/2023) Immunizations Name Administration Dates Next Due COVID-19 [...] 07/01/2023 Does the household have a re lar source of income? (Household - for ages [...] Department Care Team (Latest Contact Info) Description 10/10/2023 4:00 PM EDT Office Visit Nephrology, [address] [place] [address] Charla Potter MD [address] [place] [address] [place] [address] 10/11/2023 10:00 AM EDT Office Visit Pharmacy, [address] [place] [address] [place] [address] 10/12/2023 11:00 AM EDT Office Visit Cardiology, [facility] [address] [facility] [place] [address] Frantz Herrera MD [address] [place] [address] 11/01/2023 4:00 PM EDT Imaging Radiology [address] [place] [address] 12/07/2023 9:20 AM EDT Office Visit Family Medicine [address] [place] [phone] Courtney Restrepo MD [address] [place] [address] [place] [address] 01/17/2024 10:00 AM EST Hospital Encounter ENDO [facility], Endoscopy Room [facility] [address] [place] [phone] Cassandra Hart MD [address] [facility] [place] [address] 01/17/2024 10:00 AM EST - 01/17/2024 10:30 AM EST Surgery ENDO [facility], Endoscopy Room [facility] [address] [facility] [place] [phone] Cass[facility] [place] [address] ESOPHAGOGASTRODUODENOSCOPY (EGD), FLEXIBLE, TRANSORAL, DIAGNOSTIC 01/25/2024 10:30 AM EST Imaging V[facility], [address] [facility] [address] 01/25/2024 11:30 AM EST Imaging Vascular Lab, [address] [facility] [place] [address] 02/01/2024 11:30 AM EST Office Visit Vascular Surgery, [facility] [address] Nnamdi King MD [address] [place] [address] 02/08/2024 11:00 AM EST Imaging Radiology, [address] [place] [address] 02/17/2024 10:00 AM EST Office Visit [address] [place] [phone] Marshall Romano MD [address] [place] [address] [place] [address] Scheduled Procedures Name Priority Associated Diagnoses Date/Ti wv ESOPHAGOGASTRODUODENOSCOPY ( EGD), FLEXIBLE, TRANSORAL, DIAGNOSTIC 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 01/17/2024 10:00 AM EST ESOPHAGOGASTRODUODENOSCOPY ( EGD), FLEXIBLE, TRANSORAL, DIAGNOSTIC Recall Pendleton's esophagus Health Maintenance Due Date Last Done Comments DISCUSS TOBACCO CESSATION (REFER TO SMARTSET #8455) 1950 Cologuard 1994 Fecal Occult Blood Test [...] Cancer Screening 09/28/2023 Influenza Vaccine (FLU shot) (#1) 2023 11/17/2021, 11/30/2019, 12/27/2018, Additional history exists HbA1c 03/07/2024 09/06/2023, 03/2 09/2023, 12/10/2022, Additional history exists Albumin/Creatinine Ratio 04/13/2024 024, 04/13/2022, 06/03/2021, Additional history exists Mammogram 05/19/2024 05/20/2023, 03/0 10/2023, 03/19/2021, Additional history exists Depression Monitoring 06/21/2024 06/22/2023 O2 ASSESSMENT COMPLETED IN PAST YEAR FOR COPD 07/17/2024 07/18/2023 GFR 09/05/2024 09/06/2023, 04/0 05/2023, 06/14/2023, Additional history exists DTaP,Tdap,and Td Vaccines (4 - Td or Tdap) 10/17/2032 10/17/2022, 07/14/2021 (Declined), 07/27/2010 Pneumococcal Vaccine: 65+ Years Completed 10/27/2015, 08/08/2014, 05/30/2008 RETIRED - COLONOSCOPY-EVERY 5 YRS AGES 18-100 Discontinued 09/27/2018, 09/27/2018, 07/13/2018, Additional history exists VITAMIN D LEVEL ONCE IN A LIFETIME-USE SMARTSET# 79686 Completed 10/16/2021, 12/27/2018 Alpha-1 Antitrypsin Discontinued HPV (Gardasil) Vaccine Aged Out No lo nger eligible based on patient's age to complete this topic Hepatitis B Vaccine Aged Out No longe r eligible based on patient's age to complete this topic MENINGOCOCCAL (MENACTRA/MENVEO) Aged Out No longer eligible based on patient's age to complete this topic Zoster Vaccines Discontinued documented as of this encounter Medical Devices Implanted Type Area Maori Physiotherapist Device Identifier Shelf Expiration Date Model / Serial / Lot Stent Graft Icast [id number] - [id number] - [id number] Implanted:Qty : 1 on 04/14/2022 by Nnamdi King MD [place] [facility] N/A: Mesenteric Artery GETINGE : MAQUET [id number] 02/21/2023 [id number] / [id number] / [id number] Description:implanted in SMA Stent Ovid 3.0x15 Rx - [id number] Implanted:Qty : 1 on 11/12/2022 by Patrice Jose MD at [facility] [employer] : VASCULAR [id number] 11/28/2023 [id number] / / [id number] Stent R2p Misago 6fr [id number] - [id number] Implanted:Qty : 1 on 07/18/2023 by Nnamdi King MD at [place] [facility] Right: [facility] [employer] : CARDIO SYS [id number] 09/11/2023 [id number] / / [id number] documented as of this encounter Advance Directives [...] the patient have Health Care Power of Cafe Or Restaurant Manager? Yes, in chart and reviewed as [...] patient or by statute hierarchy) Care Teams Black Jack Dealer Relationship Specialty Start Date End Date Courtney Restrepo MD [address] [place] [address] [place] [address] PCP - General Family Medicine 10/17/19 documented as of this encounter
--- OUTSIDE RECORDS SUMMARY | 2023-10-07 20:35 | External Medical Summary | Summary of Care ---
Author Name Unknown Organization [facility] Address [address] [place] [address] Phone [phone] Care Team Providers Care Sofa Back Upholsterer Name Role Phone Courtney Restrepo MD Primary Care Prov ider Reason for Referral * Evaluate & Treat - Unlimited Visits (Within 10 days (routine)) - Authorized Specialty Diagnoses / Procedures Referred By Rosalia chandra Referred To Contact Gastroenterology Diagnoses 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 Courtney Restrepo MD [address] [place] [address] [place] [address] Referral ID Status Reason Start Date Expiration Date Visits Requested Visits Authorized [id number] Authorized Ancillary Services Required 09/27/2023 999 999 Question Answer Referral Priority Within 10 days (routine) Where should this appointment be scheduled? [facility] Comments Upper Endoscopy ASGE Guidelines Pendleton's esophagus surveillance ADDITIONAL INFORMATION 1. Is the patient on Coumadin? No 2. Is the patient on Pradaxa? No * Precert (Within 10 days (routine)) - Authorized Specialty Diagnoses / Procedures Referred By Rosalia chandra Referred To Contact Radiology Diagnoses Lung nodule seen on imaging study COPD, group D, by GOLD 2017 classification (HCC) Procedures CT CHEST W WO CONTRAST Courtney Restrepo MD [address] [place] [address] [place] [address] Referral ID Status Reason Start Date Expiration Date V isits Requested Visits Authorized [id number] Authorized Precert 09/27/2023 03/25/2024 999 999 Reason for Visit * Reason Comments Follow Up 3 mo f/u Encounter Details Date Type Department Care Team (Latest Contact Info) Description 09/27/2023 9:40 AM EDT Office Visit [address] [place] [address] Courtney Restrepo MD [address] [place] [address] [place] [address] Lung nodule seen on imaging study*; COPD, group D, by GOLD 2017 classification ([facility]); Type 2 diabetes mellitus with hemoglobin A1c goal of less than 8.0% ([facility]); Status post below-knee amputation of left lower extremity ([facility]); Tobacco use disorder; 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; Skin tear of right elbow without complication, initial encounter Allergies Active Allergy Reactions Criticality Noted Date [...] edema Nitroglycerin Hypotension 12/20/2018 Penicillins Nausea/vomiting 05/17/2007 [place] Hives 10/02/2018 Propoxyphene Edema face/lips/tongue,Hiv es 06/26/2009 documented as of this encounter (statuses as of 09/27/2023) Medications Medication Sig Dispensed Refills Start Date [...] 20 MG Oral Tablet (Lasix)Indications:A therosclerosis of [place] artery of left lower extremity with rest [...] ns:COPD, group D, by GOLD 2017 classification ([facility]) Inhale 2 Puffs by mouth in the morning and 2 Puffs before bedtime. 10.2 g 5 09/06/2023 Active Dulaglutide 0.75 MG/0.5ML Subcutaneous Solution Pen-injector (TrulicWindeln.de) Inject 0.75 mg under the skin once a week. DxE11.9 2 mL 3 09/07/2023 Active Ferrous Sulfate 325 (65 Fe) MG Oral Tablet (Feosol)Indications: Iron deficiency anemia, unspecified iron deficiency anemia type Take 1 Tablet by mouth in the morning and 1 Tablet before bedtime. 60 Tablet 11 09/08/2023 Active Baclofen 5 MG Oral Tablet (Lioresal) Take 1 Tablet by mouth in the morning and 1 Tablet at noon and 1 Tablet before bedtime. As needed for muscle spasm. 30 Tablet 09/12/2023 Active HYDROcodone-Acetamin ophen 5-325 MG Oral TabletIndications:S/ P AKA (above knee amputation), left ([facility]) Take 1 Tablet by mouth every 6 hours as needed for Pain, Mild or Pain, Severe. 60 Tablet 09/20/2023 Active Doxycycline Monohydrate 100 MG Oral Capsule Take 1 Capsule by mouth in the morning and 1 Capsule before bedtime. 09/24/2023 Active Empagliflozin 10 MG Oral Tablet (Jardiance)Indicatio ns:Type 2 diabetes mellitus with hemoglobin A1c goal of less than 8.0% ([facility]) Take 1 Tablet by mouth in the morning. 30 Tablet 5 09/27/2023 Active Mupirocin 2 % External Ointment (Bactroban)Indicatio ns:Skin tear of right elbow without complication, initial encounter Apply topically to affected area 3 times a day for 14 days. Apply to affected area. 22 g 1 09/27/2023 Active documented as of this encounter (statuses as of 09/27/2023) Active Problems Problem Noted Date Diagnosed Date Ischemic rest pain of lower extremity 07/14/2023 Ulcer of right foot, limited to breakdown of ski n 07/14/2023 Dependent rubor 07/14/2023 Atherosclerosis of [place] artery of extremity Pre-ulcerative corn or callous [...] rinse after steroid. Test performed by Bibiana WASTE/MATERIALS EXCHANGE SPECIALIST CPFT Old UT (myocardial infarction) 02/21/2019 Bilateral [...] osteoporosis 07/03/2018 Reactive depression 11/17/2017 Atherosclerosis of [place] co ronary artery of [place] heart without angina pectoris 07/22/2015 Overview: Single [...] rinse after steroid. Test performed by Bibiana WASTE/MATERIALS EXCHANGE SPECIALIST CPFT GENERAL OSTEOARTHROSIS BMI 32.0-32.9,adult Tobacco use disorder Hyperlipidemia with target LDL less than 70 Overview: ICD-10 update of inactive term RSD upper limb Overview: left arm Generalized anxiety disorder documented as of this encounter (statuses as of 09/27/2023) Resolved Problems Problem Noted Date Diagnosed Date [...] ISCHEMIC HRT DIS NOS Coronary atherosclerosis of [place] coronary artery 11/24/2016 Tobacco abuse 11/17/2017 documented as of this encounter (statuses as of 09/27/2023) Immunizations Name Administration Dates Next Due COVID-19 [...] uit: Not Asked; Counseling Given: Not Answered Comments:08/10/2023 1 pack a day declined pamphlet [...] No 07/01/2023 Does the household have a [facility] source of income? (Household - for ages [...] Sign Reading Time Taken Comments Blood Pressure 110/50 09/27/2023 9:44 AM EDT Pulse 88 09/27/2023 9:44 AM EDT Temperature 36.2 C (97.1 F) 09/27/2023 9:44 AM ED T Respiratory Rate - - Oxygen Saturation 93% 09/27/2023 9:44 AM EDT Inhaled Oxygen Concentration - - [...] encounter Progress Notes * Waldemar Morejon, Courtney Godfery MD - 09/27/2023 10:13 AM EDT Subjective Carlotta Khan is a 72 year old female. Chief Complaint Patient presents with Follow Up 3 mo f/u HPI: Close follow up for vasculopathy, left BKA, recent aspiration pneumonia, COPD/ Smoking PMH includes recent left AKA due to PAD, dedicated smoker, type 2 DM, Lipids, COPD, Mesenteric ischemia, h/o CVA, h/o UT. COPD/PNA/ Nodule. Still productive cough, denies SOB and fevers. Completed the clindamycin. Recent CXR showing RUL 11mm spiculated nodule, recommended Pulm follow up and poss chest Ct. Does feel she has trouble swallowing; will cough/ choke/ feels things stick. Last EGD 2018 for Barretts. Vascular: Short term follow up due to severe vasculopathy and recent left leg amputation; s/p recent femoral bypass. FEM/POP ARTERY REVASC W/ STENT+ANGIOPLASTY 07/18/2023 by . Tobacco. Back to smoking 1/4 PPD currently. Used to smoke 4 PPD. States she knows it's a problem and is trying to cut down on her own. DM. A1C 8.9. Using lantus and novolog. Has DEXCOM. States her sugars are highly variable. Has lows to 40s, highs in 300s. States her fingersticks often read higher than the dexcom; wonders if workingright. Prev: DEXA, vaccines, EGD for barretts Barretts. Does have trouble swallowing. PMH: Patient Active Problem List Diagnosis Moderate persistent asthma without complication GENERAL OSTEOARTHROSIS Cerebrovascular disease, arteriosclerotic, post-stroke ADVANCE DIRECTIVE INFORMATION BMI 32.0-32.9,adult Tobacco use disorder Hyperlipidemia with target LDL less than 70 RSD upper limb Type 2 diabetes mellitus with hemoglobin A1c goal of less than 8.0% ([facility]) Controlled substance agreement signed Generalized anxiety disorder Atherosclerosis of [place] coronary artery of [place] heart without angina pectoris Reactive depression Senile osteoporosis PAD (peripheral artery disease) ([facility]) Iron deficiency anemia due to chronic blood loss 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 Chronic superficial gastritis with bleeding Gastrointestinal hemorrhage with melena Lung nodules Moderate mitral regurgitation Old UT (myocardial infarction) Bilateral carotid artery stenosis DM type 2 with diabetic peripheral neuropathy ([facility]) Right hand tendonitis Generalized arthritis Hand arthritis Centrilobular emphysema ([facility]) Superior mesenteric artery stenosis ([facility]) Celiac artery stenosis ([facility]) Major depressive disorder, recurrent, unspecified ([facility]) Non-proliferative diabetic retinopathy, both eyes ([facility]) Recurrent major depressive disorder, in partial remission ([facility]) Mesenteric ischemia, chronic ([facility]) COPD, group D, by GOLD 2017 classification ([facility]) Chronic ischemic heart disease Advanced directives, counseling/discussion Type 2 diabetes mellitus with peripheral artery disease (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) S/P femoral-femoral bypass surgery History of cardiac arrest Lactic acidosis Transaminitis Encephalopathy acute Pathological fracture of vertebra due to osteoporosis with routine healing, subsequent encounter S/P AKA (above knee amputation), left ([facility]) Status post below-knee amputation of left lower extremity ([facility]) Pre-ulcerative corn or callous Ischemic rest pain of lower extremity Ulcer of right foot, limited to breakdown of skin ([facility]) Dependent rubor Atherosclerosis of [place] artery of extremity ([facility]) Current Outpatient Medications Medication Sig Dispense Refill busPIRone HCl 15 MG Oral Tablet (Buspar) TAKE ONE TABLET TWICE DAILY 180 Tablet 1 DULoxetine HCl 30 MG Oral Capsule Delayed Release Particles (Cymbalta) Take 1 Capsule by mouth in the morning and 1 Capsule before bedtime. 180 Capsule 2 MetaboliTouch Delica Lancets 30G Use to test glucose daily. E11.9 100 Each 5 MetaboliTouch Verio w/Device Kit Use to test glucose daily. E11.9 1 Kit 0 NovoLOG FlexPen 100 UNIT/ML Subcutaneous Solution Pen-injector (insulin aspart) Units as per sliding scale (Patient taking differently: Units as per sliding scale 4-6 units at lunch) 3 mL 3 Insulin Glargine Solostar 100 UNIT/ML Subcutaneous Solution Pen-injector (Lantus SoloStar) Inject 10 Units under the skin every night at bedtime. Lantus SoloStar Brand Necessary 3 mL 3 Multivitamin Adult (Minerals) Oral Tablet Take 1 [...] 1 Capsule before bedtime. 90 Capsule 3 Furosemide 20 MG Oral Tablet (Lasix) One daily 30 Tablet 5 Ipratropium-Albuterol 0.5-2.5 (3) MG/3ML Inhalation Solution (Duoneb) Inhale 3 mL by mouth every 4 hours as needed for Shortness of Breath. Clopidogrel Bisulfate 75 MG Oral Tablet (pLAVix) TAKE 1 TABLET BY MOUTH EVERY MORNING 90 Tablet 3 Atorvastatin Calcium 40 MG Oral Tablet (Lipitor) Take 1 Tablet by mouth in the morning. Famotidine 20 MG Oral Tablet (Pepcid) Take 1 Tablet by mouth in the morning. Clindamycin HCl 300 MG Oral Capsule Take 1 Capsule by mouth in the morning and 1 Capsule at noon and 1 Capsule before bedtime. Budesonide-Formoterol Fumarate 80-4.5 MCG/ACT Inhalation Aerosol (Symbicort) Inhale 2 Puffs by mouth in the morning and 2 Puffs before bedtime. 10.2 g 5 Dulaglutide 0.75 MG/0.5ML Subcutaneous Solution Pen-injector ([employer]) Inject 0.75 mg under the skin once a week. DxE11.9 2 mL 3 Ferrous Sulfate 325 (65 Fe) MG Oral Tablet (Feosol) Take 1 Tablet by mouth in the morning and 1 Tablet before bedtime. 60 Tablet 11 Baclofen 5 MG Oral Tablet (Lioresal) Take 1 Tablet by mouth in the morning and 1 Tablet at noon and1 Tablet before bedtime. As needed for muscle spasm. 30 Tablet 0 HYDROcodone-Acetaminophen 5-325 MG Oral Tablet Take 1 Tablet by mouth every 6 hours as needed for Pain, Mild or Pain, Severe. 60 Tablet 0 Doxycycline Monohydrate 100 MG Oral Capsule Take 1 Capsule by mouth in the morning and 1 Capsule before bedtime. Empagliflozin 10 MG Oral Tablet (Jardiance) Take 1 Tablet by mouth in the morning. 30 Tablet 5 Mupirocin 2 % External Ointment (Bactroban) Apply topically to affected area 3 times a day for 14 days. Apply to affected area. 22 g 1 No current facility-administered medications for this visit. [...] and periorbital edema Nitroglycerin Hypotension Penicillins Nausea/vomiting [place] Hives Propoxyphene Edema face/lips/tongue and Hives Objective BP 110/50 | Pulse 88 | Temp 36.2 C (97.1 F) (Tympanic) | SpO2 93% Physical Exam HENT: Head: Normocephalic and atraumatic. Mouth/Throat: Mouth: Mucous membranes are moist. Eyes: Extraocular Movements: Extraocular movements intact. Neck: Comments: Cervical spine tenderness to palpation and ROM Cardiovascular: Rate and Rhythm: Normal rate and regular rhythm. Pulmonary: Effort: Pulmonary effort is normal. Breath sounds: Rhonchi present. Musculoskeletal: Right lower leg: No edema. Neurological: Mental Status: She is alert. Cranial Nerves: Cranial nerve deficit present. Comments: Left facial droop (chronic) ASSESSMENT/PLAN: Lung nodule seen on imaging study (Primary) - CT CHEST W WO CONTRAST COPD, group D, by GOLD 2017 classification ([facility]) - CT CHEST W WO CONTRAST Type 2 diabetes mellitus with hemoglobin A1c goal of less than 8.0% ([facility]) - Empagliflozin 10 MG Oral Tablet (Jardiance); Take 1 Tablet by mouth in the morning. Status post below-knee amputation of left lower extremity ([facility]) Tobacco use disorder 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 - UPPER ENDOSCOPY GI REFERRAL OP Skin tear of right elbow without complication, initial encounter - Mupirocin 2 % External Ointment (Bactroban); Apply topically to affected area 3 times a day for 14 days. Apply to affected area. Check-out note: Keep follow up as scheduled in November Severe vasculopathy and continues to use tobacco. States she is working to reduce tobacco use. Looking forward to getting her prosthetic leg and start walking again. Trial went very well. DM2. Working with MTM. On insulins only; was hesitant to try jardiance, but willing after we discussed it. Schedule CT chest to f/u lung nodule; EGD for dysphagia and recent asp pna Arrange close follow up Courtney Jay MD 25 mins spent with patient > 50% counselling and coordinating care. documented in this encounter Nursing Notes * Jose Enrique Guo LPN - 09/27/2023 9:38 AM EDT Chief Complaint Patient presents with Follow Up 3 mo f/u States while in hospital on 08/29-09/03 and states they gave her a Lovenox shot left upper abd nearribs around and still has pain when touched / palpitated. No visible issues. Skin tear right elbow or 12 and went to Urgent care and they prescribed Doxy 100 mg BID , but has not started yet The patient has been properly identified by confirmation of name and date of . documented in this encounter Plan of Treatment Upcoming Encounters Date Type Department Care Team (Latest Contact Info) Description 09/30/2023 3:30 PM EDT Imaging Radiology [address] [place] [address] 10/10/2023 4:00 PM EDT Office Visit Nephrology, [address] [place] [address] Charla Potter MD [address] [place], [place] [id number] 10/11/2023 10:00 AM EDT Office Visit Pharmacy, [address] [place] [address] [place] [address] 10/12/2023 11:00 AM EDT Office Visit Cardiology, [facility] [address] [facility] [place] [address] Frantz Herrera MD [address] [place] [address] 12/07/2023 9:20 AM EDT Office Visit Family Medicine [address] [place] [phone] Courtney Restrepo MD [address] [place] [address] [place] [address] 01/17/2024 10:00 AM EST Hospital Encounter ENDO [facility], Endoscopy Room [facility] [address] [place] [address] Cassandra Hart MD [address] [place] [address] 01/17/2024 10:00 AM EST - 01/17/2024 10:30 AM EST Surgery [facility], Endoscopy Room [facility] [address] [place] [phone] Cassandra Hart MD [address] [place] [address] ESOPHAGOGASTRODUODENOSCOPY (EGD), FLEXIBLE, TRANSORAL, DIAGNOSTIC 01/25/2024 10:30 AM EST Imaging [facility], [address] [facility] [address] 01/25/2024 11:30 AM EST Imaging V[facility] Lab, [address] [facility] [address] 02/01/2024 11:30 AM EST Office Visit Vascular Surgery, [facility] [address] [facility] [place] [address] Nnamdi King MD [address] [place] [place] [address] 02/08/2024 11:00 AM EST Imaging Radiology, [address] [place] [address] 02/17/2024 10:00 AM EST Office Visit [address] [place] [address] Marshall Romano MD [address] [place] [address] [place] [address] Scheduled Orders Name Type Priority Associated Diagnoses Orde r Schedule CT CHEST W WO CONTRAST Medical Imaging Routine Lung nodule seen on imaging study COPD, group D, by GOLD 2017 classification ([facility]) Ordered: 09/27/2023 Scheduled Procedures Name Priority Associated Diagnoses Date/Ti me ESOPHAGOGASTRODUODENOSCOPY ( EGD), FLEXIBLE, TRANSORAL, DIAGNOSTIC 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 01/17/2024 10:00 AM EST ESOPHAGOGASTRODUODENOSCOPY ( EGD), FLEXIBLE, TRANSORAL, DIAGNOSTIC Recall Pendleton's esophagus Scheduled Referrals Name Type Priority Associated Diagnoses Orde r Schedule UPPER ENDOSCOPY GI REFERRAL OP Referral Within 10 days (routine) 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 Ordered: 09/27/2023 Health Maintenance Due Date Last Done Comments DISCUSS TOBACCO CESSATION (REFER TO SMARTSET #8816) 1949 Cologuard 1994 Fecal Occult Blood Test [...] 12/27/2018, Additional history exists HbA1c 03/07/2024 09/06/2023, 03/09/2023, 12/10/2022, Additional history exists Albumin/Creatinine Ratio 04/13/2024 [...] D LEVEL ONCE IN A LIFETIME-USE SMARTSET# 91981 Completed 10/16/2021, 12/27/2018 Alpha-1 Antitrypsin Discontinued HPV [...] this encounter Medical Devices Implanted Type Area Stacker Attendant Device Identifier Shelf Expiration Date Model / Serial / Lot Stent Graft Icast [id number] - [id number] - [id number] Implanted:Qty : 1 on 04/14/2022 by Nnamdi King MD at [place] [facility] [place] N/A: Mesenteric Artery GETINGE : VITOR [id number] 02/21/2023 [id number] / [id number] / [id number] Description:implanted in SMA Stent [place] 3.0x15 Rx - [id number] Implanted:Qty : 1 on 11/12/2022 by Patrice Jose MD at CARDIAC LABS [facility] [place] [employer] : VASCULAR [id number] 11/28/2023 [id number] / / [id number] Stent R2p Misago 6fr [id number] - [id number] Implanted:Qty : 1 on 07/18/2023 by Nnamdi King MD at OR [facility] [place] Right: [employer] : CARDIO SYS [id number] 09/11/2023 [id number] / / [id number] documented as of this encounter Visit Diagnoses Diagnosis Lung nodule seen on imaging study- Primary Solitary pulmonary nodule COPD, group D, by GOLD 2017 classification (HCC) Type 2 diabetes mellitus with hemoglobin A1c goal of less than 8.0% (HCC) Status post below-knee amputation of left lower extremity (HCC) Tobacco use disorder 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 Pendleton's esophagus Skin tear of right elbow without complication, initial encounter 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 Pendleton's esophagus documented [...] the patient have Health Care Power of Equipment Maintenance Tech? Yes, in chart and reviewed as current [...] patient or by statute hierarchy) Care Teams Sofa Back Upholsterer Relationship Specialty Start Date End Date Courtney Restrepo MD [address] [place] [address] [place] [address] PCP - General Family Medicine 10/17/19 documented as of this encounter
--- OUTSIDE RECORDS SUMMARY | 2023-10-07 20:35 | External Medical Summary | Summary of Care ---
Author Name Unknown Organization [facility] Address [address] [place] [address] Phone [phone] Care Team Providers Care Maintenance Pipefitter Name Role Phone Courtney Restrepo MD Primary Care Prov ider Reason for Visit * Reason Onset Date Comments Appointment 09/27/2023 Upper endoscopy Encounter Details Date Type Department Care Team (Late st Contact Info) Description 09/27/[address] [phone] Courtney Restrepo MD [address] [place], [place] [address] [address] Appointment (Upper endoscopy ) Allergies Active Allergy Reactions Criticality Noted [...] Nitroglycerin Hypotension 12/20/2018 Penicillins Nausea/vomiting 05/17/2007 [place] Hives 10/02/2018 Propoxyphene Edema face/lips/tongue,Hiv es 06/26/2009 [...] before bedtime. 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 10.2 g 5 09/06/2023 Active Dulaglutide 0.75 MG/0.5ML Subcutaneous Solution Pen-injector (Verifico) Inject 0.75 mg under the skin once [...] TabletIndications:S/ P AKA (above knee amputation), left ([facility]) Take 1 Tablet by mouth every 6 hours as needed for Pain, Mild or Pain, Severe. 60 Tablet 09/20/2023 Active Doxycycline Monohydrate 100 MG Oral Capsule Take 1 Capsule by mouth in the morning and 1 Capsule before bedtime. 09/24/2023 Active Empagliflozin 10 MG Oral Tablet (Jardiance)Indicatio ns:Type 2 diabetes mellitus with hemoglobin A1c goal of less than 8.0% ([facility]) Take 1 Tablet by mouth in the [...] n 07/14/2023 Dependent rubor 07/14/2023 Atherosclerosis of [place] artery of extremity Pre-ulcerative corn or callous [...] after steroid. Test performed by Bibiana EXTENSION SUPERVISOR CPFT Old HI (myocardial infarction) 02/21/2019 Bilateral [...] osteoporosis 07/03/2018 Reactive depression 11/17/2017 Atherosclerosis of [place] co ronary artery of [place] heart without angina pectoris 07/22/2015 Overview: [...] after steroid. 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 [K22.70] documented in this encounter Plan of Treatment Upcoming Encounters Date Type Department Care Team (Latest Contact Info) Description 09/30/2023 3:30 PM EDT Imaging Radiology [address] [place] [address] 10/10/2023 4:00 PM EDT Office Visit Nephrology, [address] [place] [address] Charla Potter MD [address] [place] [address] [place], [place] [id number] 10/11/2023 10:00 AM EDT Office Visit Pharmacy, [address] [place] [address] [place] [address] 10/12/2023 11:00 AM EDT Office Visit Cardiology, [facility] 132 [place] [address] Frantz Herrera MD [address] [place] [address] 12/07/2023 9:20 AM EDT Office Visit Family [address] [place] [phone] Courtney Restrepo MD [address] [place] [address] [place] [address] 01/17/2024 10:00 AM EST Hospital Encounter ENDO [facility], Endoscopy Room [facility] [address] [place] [phone] Cassandra Hart MD [address] [place] [address] 01/17/2024 10:00 AM EST - 01/17/2024 10:30 AM EST Surgery ENDO [facility], Endoscopy Room [facility] [address] [place] [phone] Cassandra Hart MD [address] [place] [address] ESOPHAGOGASTRODUODENOSCOPY (EGD), FLEXIBLE, TRANSORAL, DIAGNOSTIC 01/25/2024 10:30 AM EST Imaging Vascular Lab, [address] 132 [facility] [place] [address] 01/25/2024 11:30 AM EST Imaging Vascular Lab, [address] 132 [facility] [place] [address] 02/01/2024 11:30 AM EST Office Visit Vascular Surgery, [facility] [place] [address] Nnamdi King [facility] [address] [facility] [place] [address] 02/08/2024 11:00 AM EST Imaging Radiology, [address] [place] [address] 02/17/2024 10:00 AM EST Office Visit Rheumatology [address] [place] [phone] Marshall Romano MD [address] [employer] [place] [address] Scheduled Procedures Name Priority Associated Diagnoses Date/Ti me ESOPHAGOGASTRODUODENOSCOPY ( EGD), FLEXIBLE, TRANSORAL, DIAGNOSTIC 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 01/17/2024 10:00 AM EST ESOPHAGOGASTRODUODENOSCOPY ( EGD), FLEXIBLE, TRANSORAL, DIAGNOSTIC Recall Pendleton's esophagus Health Maintenance Due Date Last Done Comments DISCUSS TOBACCO CESSATION (REFER TO SMARTSET #3555) 1949 Cologuard 1994 Fecal Occult Blood Test [...] 12/27/2018, Additional history exists HbA1c 03/07/2024 09/06/2023, 05/13, 12/10/2022, Additional history exists Albumin/Creatinine Ratio 04/13/2024 024, 04/13/2022, 06/03/2021, Additional history exists Mammogram 05/19/2024 05/20/2023, 10/2023, 03/19/2021, Additional history exists Depression Monitoring [...] D LEVEL ONCE IN A LIFETIME-USE SMARTSET# 16848 Completed 10/16/2021, 12/27/2018 Alpha-1 Antitrypsin Discontinued HPV [...] this encounter Medical Devices Implanted Type Area [facility] Device Identifier Shelf Expiration Date Model / Serial / Lot Stent Graft Icast [id number] - [id number] - [id number] Implanted:Qty : 1 on 04/14/2022 by Nnamdi King MD at OR [facility] [place] [place] N/A: Mesenteric Artery GETINGE : MAQUET [id number] 02/21/2023 [id number] / [id number] / [id number] Description:implanted in SMA Stent [place] 3.0x15 Rx - [id number] Implanted:Qty : 1 on 11/12/2022 by Patrice Jose MD at CARDIAC LABS [facility] [place] [place] MEDTRONIC : VASCULAR [id number] 11/28/2023 [id number] / / [id number] Stent R2p Misago 6fr [id number] - [id number] Implanted:Qty : 1 on 07/18/2023 by Nnamdi King MD at OR [facility] [place] [place] Right: [facility] MEDICAL : CARDIO SYS [id number] 09/11/2023 [id number] / / [id number] documented as of this encounter Advance Directives [...] the patient have Health Care Power of Dock Operator? Yes, in chart and reviewed as [...] patient or by statute hierarchy) Care Teams Maintenance Pipefitter Relationship Specialty Start Date End Date Courtney Restrepo MD [address] [place] [address] [place] [address] PCP - General Family Medicine 10/17/19 documented as of this encounter
--- OUTSIDE RECORDS SUMMARY | 2023-10-07 20:35 | External Medical Summary | Summary of Care ---
Author Name Unknown Organization [facility] Address [address] Care Team Providers Care Banquet Supervisor Name Role Phone Courtney Restrepo MD Primary Care Prov ider Reason for Visit * Reason Onset Date Comments Medication Question 09/09/2023 Encounter Details Date Type Department Care Team (Late st Contact Info) Description 09/09/2023 Telephone Pharmacy, [facility] [address] [facility] [place] [phone] [place] [address] Medication Question Allergies Active Allergy Reactions [...] edema Nitroglycerin Hypotension 12/20/2018 Penicillins Nausea/vomiting 05/17/2007 [place] Hives 10/02/2018 Propoxyphene Edema face/lips/tongue,Hiv es 06/26/2009 documented as of this encounter (statuses as of 09/13/2023) Medications Medication Sig Dispensed Refills Start Date [...] glucose daily. 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 60 Tablet 4 Active Atorvastatin Calcium 40 MG Oral Tablet (Lipitor) Take 1 Tablet by mouth in the morning. Active Famotidine 20 MG Oral Tablet (Pepcid) Take 1 Tablet by mouth in the morning. 4 Active Clindamycin HCl 300 MG Oral Capsule Take 1 Capsule by mouth in the morning and 1 Capsule at noon and 1 Capsule before bedtime. 4 Active Budesonide-Formoter ol Fumarate 80-4.5 MCG/ACT Inhalation Aerosol (Symbicort)Indicati ons:COPD, group D, by GOLD 2017 classification ([facility]) Inhale 2 Puffs by mouth in the morning and 2 Puffs before bedtime. 10.2 g 5 4 Active Dulaglutide 0.75 MG/0.5ML Subcutaneous Solution Pen-injector (Cloud Takeoff) Inject 0.75 mg under the skin once a week. DxE11.9 2 mL 3 4 Active Ferrous Sulfate 325 (65 Fe) MG Oral Tablet (Feosol)Indications :Iron deficiency anemia, unspecified iron deficiency anemia type Take 1 Tablet by mouth in the morning and 1 Tablet before bedtime. 60 Tablet 11 4 Active Baclofen 5 MG Oral Tablet (Lioresal) Take 1 Tablet by mouth in the morning and 1 Tablet at noon and 1 Tablet before bedtime. As needed for muscle spasm. 30 Tablet 4 09/12/19 24 Discontinu ed(Refill) documented as of this encounter (statuses as of 09/13/2023) Active Problems Problem Noted Date Diagnosed Date Ischemic rest pain of lower extremity 07/14/2023 Ulcer of right foot, limited to breakdown of ski n 07/14/2023 Dependent rubor 07/14/2023 Atherosclerosis of [place] artery of extremity Pre-ulcerative corn or callous [...] rinse after steroid. Test performed by Bibiana GLOBAL PRODUCT MANAGER CPFT Old ND (myocardial infarction) 02/21/2019 [...] osteoporosis 07/03/2018 Reactive depression 11/17/2017 Atherosclerosis of [place] co ronary artery of [place] heart without angina pectoris 07/22/2015 Overview: Single [...] rinse after steroid. Test performed by Bibiana GLOBAL PRODUCT MANAGER CPFT GENERAL OSTEOARTHROSIS BMI 32.0-32.9,adult Tobacco use disorder Hyperlipidemia with target LDL less than 70 Overview: ICD-10 update of inactive term RSD upper limb Overview: left arm Generalized anxiety disorder documented as of this encounter (statuses as of 09/13/2023) Resolved Problems Problem Noted Date Diagnosed Date [...] ISCHEMIC HRT DIS NOS Coronary atherosclerosis of [place] coronary artery 11/24/2016 Tobacco abuse 11/17/2017 documented as of this encounter (statuses as of 09/13/2023) Immunizations Name Administration Dates Next Due COVID-19 [...] Telephone Encounter - Courtney Restrepo MD - 09/13/2023 4:13 PM EDT Agree with plan * Telephone Encounter - Zenia Goldberg RPh - 09/09/2023 11:09 AM EDT Patient Phone Numbers Returned call and spoke to patient. States she obtained the Trulicity but has not taken it. She wasconcerned as she has been vomiting. Per chart review this was addressed in separate TE from today. Reviewed provider recommendation for ER. Patient states she is agreeable to this but her car is currently being inspected. Hopes to have it back soon. Advised patient of recommendation to call ambulance. Patient states she is agreeable if car is not obtained soon. Advised NOT to take Trulicity until ER evaluation and provider follow up. Zenia Goldberg RPh, PharmD Clinical Pharmacist - [employer] [facility] 09/09/2023, 11:11 AM [phone] * Telephone Encounter - Godwin Dela Cruz CPhT - 09/09/2023 10:37 AM EDT Caller's name: Dee Preferred call back number(OFFICE NUMBER FOR ): [phone] Reason for call: Medication question: Pt caregiver calling on RX Trulicity, says has vomiting and abdominal bruising, requesting to speak to MTM Thank you, Godwin Dela Cruz CPhT Public Finance Specialist [facility] 09/09/2023,10:37 AM documented in this encounter Plan of Treatment Upcoming Encounters Date Type Department Care Team (Latest Contact Info) Description 09/27/2023 9:40 AM EDT Office Visit Family Medicine [address] [phone] Courtney Restrepo MD [address] [place] [address] [place] [address] 10/10/2023 4:00 PM EDT Office Visit Nephrology, [address] [place] [address] Charla Potter MD [address] [place] [address] 10/11/2023 10:00 AM EDT Office Visit Pharmacy, [address] [place] [address] [place] [address] 10/12/2023 11:00 AM EDT Office Visit Cardiology, [facility] [address] [place] [address] Frantz Herrera MD [address] [place] [address] 12/07/2023 9:20 AM EDT Office Visit Family Medicine [address] [place] [phone] Courtney Restrepo MD [address] [place] [address] [place] [address] 01/17/2024 10:00 AM EST Hospital Encounter [facility]O [facility], Endoscopy Room [facility] [address] [place] [address] Cassandra Hart MD [address] [place] [address] 01/17/2024 10:00 AM EST - 01/17/2024 10:30 AM EST Surgery ENDO [facility], Endoscopy Room [facility] [address] [place] [phone] Cassandra Hart MD 132 [facility] [place] [address] ESOPHAGOGASTRODUODENOSCOPY (EGD), FLEXIBLE, TRANSORAL, DIAGNOSTIC 01/25/2024 10:30 AM EST Imaging Vascular Lab, [address] 132 [facility] [place] [address] 01/25/2024 11:30 AM EST Imaging Vascular Lab, [address] 132 [facility] [place] [address] 02/01/2024 11:30 AM EST Office Visit Vascular Surgery, [facility] 132 [facility] [place] [address] Nnamdi King MD [address] [place] [address] 02/08/2024 11:00 AM EST Imaging [place] [address] [place] [address] 02/17/2024 10:00 AM EST Office Visit [address] [place] [phone] Marshall Romano MD [facility] [place] [address] Scheduled Procedures Name Priority Associated Diagnoses Date/Ti nc ESOPHAGOGASTRODUODENOSCOPY ( EGD), FLEXIBLE, TRANSORAL, DIAGNOSTIC 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 01/17/2024 10:00 AM EST ESOPHAGOGASTRODUODENOSCOPY ( EGD), FLEXIBLE, TRANSORAL, DIAGNOSTIC Recall Pendleton's esophagus Health Maintenance Due Date Last Done Comments DISCUSS TOBACCO CESSATION (REFER TO SMARTSET #5918) 1949 Cologuard 1994 Fecal Occult Blood Test [...] D LEVEL ONCE IN A LIFETIME-USE SMARTSET# 09707 Completed 10/16/2021, 12/27/2018 Alpha-1 Antitrypsin Discontinued HPV [...] this encounter Medical Devices Implanted Type Area Landing Man Device Identifier Shelf Expiration Date Model / Serial / Lot Stent Graft Icast [id number] - [id number] - [id number] Implanted:Qty : 1 on 04/14/2022 by Nnamdi King MD at [place] [facility] [place] N/A: Mesenteric Artery GETINGE : [id number] 02/21/2023 [id number] / [id number] / [id number] Description:implanted in SMA Stent [place] 3.0x15 Rx - [id number] Implanted:Qty : 1 on 11/12/2022 by Patrice Jose MD at [facility]ARDIAC LABS [facility] [place] MEDTRON[employer] : VASCULAR [id number] 11/28/2023 [id number] / / [id number] Stent R2p Misago 6fr [id number] - [id number] Implanted:Qty : 1 on 07/18/2023 by Nnamdi King MD at [place] [facility] [place] Right: [facility] MEDICAL : CARDIO SYS [id number] 09/11/2023 [id number] / / [id number] documented as of this encounter Advance Directives [...] the patient have Health Care Power of Transmission Systems Operator? Yes, in chart and reviewed as [...] patient or by statute hierarchy) Care Teams Banquet Supervisor Relationship Specialty Start Date End Date Courtney Restrepo MD [address] [place] [address] [place] [id number] PCP - General Family Medicine 10/17/19 documented as of this encounter
--- OUTSIDE RECORDS SUMMARY | 2023-10-07 20:35 | External Medical Summary | Summary of Care ---
Author Name Unknown Organization [facility] Address [address] [place] [address] Phone [phone] Care Team Providers Care Web Production Assistant Name Role Phone Courtney Restrepo MD Primary Care Prov ider Reason for Visit * Reason Onset Date Comments Medication Refill 09/29/2023 Encounter Details Date Type Department Care Team (Late st Contact Info) Description 09/29/[address] [phone] Courtney Restrepo MD [address] [place], [place] [address] [phone] Allergies Active Allergy Reactions Criticality Noted Date [...] edema Nitroglycerin Hypotension 12/20/2018 Penicillins Nausea/vomiting 05/17/2007 [place] Hives 10/02/2018 Propoxyphene Edema face/lips/tongue,Hiv es 06/26/2009 documented as of this encounter (statuses as of 09/30/2023) Medications Medication Sig Dispensed Refills Start Date [...] glucose once daily E11.9 100 Strip 5 12/12/202 3 Active Calcium Carbonate 600 MG Oral [...] 20 MG Oral Tablet (Lasix)Indications: Atherosclerosis of northwestern shoshone artery of left lower extremity with rest [...] EVERY MORNING 90 Tablet 3 4 Active Atorvastatin Calcium 40 MG Oral [...] Active Dulaglutide 0.75 MG/0.5ML Subcutaneous Solution Pen-injector (ONEPLE) Inject 0.75 mg under the skin once a week. DxE11.9 2 mL 3 4 Active Ferrous Sulfate 325 (65 Fe) MG Oral Tablet (Feosol)Indications :Iron deficiency anemia, unspecified iron deficiency anemia type Take 1 Tablet by mouth in the morning and 1 Tablet before bedtime. 60 Tablet 11 4 Active HYDROcodone-Acetami nophen 5-325 MG Oral TabletIndications:S /P AKA (above knee amputation), left ([facility]) Take 1 Tablet by mouth every 6 hours as needed for Pain, Mild or Pain, Severe. 60 Tablet 4 Active Doxycycline Monohydrate 100 MG Oral Capsule Take 1 Capsule by mouth in the morning and 1 Capsule before bedtime. 4 Active Empagliflozin 10 MG Oral Tablet (Jardiance)Indicati ons:Type 2 diabetes mellitus with hemoglobin A1c goal of less than 8.0% ([facility]) Take 1 Tablet by mouth in the morning. 30 Tablet 5 4 Active Mupirocin 2 % External Ointment (Bactroban)Indicati ons:Skin tear of right elbow without complication, initial encounter Apply topically to affected area 3 times a day for 14 days. Apply to affected area. 22 g 1 4 10/11/19 24 Active Baclofen 5 MG Oral Tablet [...] needed for muscle spasm. 30 Tablet 4 09/29/19 24 Discontinu ed(Refill) documented as of this encounter (statuses as of 09/30/2023) Active Problems Problem Noted Date Diagnosed Date Ischemic rest pain of lower extremity 07/14/2023 Ulcer of right foot, limited to breakdown of ski n 07/14/2023 Dependent rubor 07/14/2023 Atherosclerosis of northwestern shoshone artery of extremity Pre-ulcerative corn or [...] rinse after steroid. Test performed by Bibiana RADIO ENGINEER CPFT [place] (myocardial infarction) 02/21/2019 Bilateral [...] osteoporosis 07/03/2018 Reactive depression 11/17/2017 Atherosclerosis of northwestern shoshone co ronary artery of northwestern shoshone heart without angina pectoris 07/22/2015 Overview: [...] rinse after steroid. Test performed by Bibiana RADIO ENGINEER CPFT GENERAL OSTEOARTHROSIS BMI 32.0-32.9,adult Tobacco use disorder Hyperlipidemia with target LDL less than 70 Overview: ICD-10 update of inactive term RSD upper limb Overview: left arm Generalized anxiety disorder documented as of this encounter (statuses as of 09/30/2023) Resolved Problems Problem Noted Date Diagnosed Date [...] ISCHEMIC HRT DIS NOS Coronary atherosclerosis of northwestern shoshone coronary artery 11/24/2016 Tobacco abuse 11/17/2017 documented as of this encounter (statuses as of 09/30/2023) Immunizations Name Administration Dates Next Due COVID-19 [...] Telephone Encounter - Courtney Restrepo MD - 09/30/2023 3:10 PM EDT Signed Prescriptions: Disp Refills Baclofen 5 MG Oral Tablet (Lioresal) 30 Tab*0 Sig: Take 1 Tablet by mouth in the morning and 1 Tablet at noon and 1 Tablet before bedtime. As needed for muscle spasm. Authorizing Provider: COURTNEY RESTREPO * Telephone Encounter - Adriana Pinto LPN - 09/29/2023 1:03 PM EDT Pending Prescriptions: Disp Refills Baclofen 5 MG Oral Tablet (Lioresal) 30 Tab*0 Sig: Take 1 Tablet by mouth in the morning and 1 Tablet at noon and 1 Tablet before bedtime. As needed for muscle spasm. Last Visit: 09/27/2023 (in office), 11/29/2022 (telemedicine) Next Visit: 12/07/2023 Last date the medication was ordered: 09/12/23 Patient Active Problem List Diagnosis Moderate persistent asthma without complication GENERAL OSTEOARTHROSIS Cerebrovascular disease, arteriosclerotic, post-stroke ADVANCE DIRECTIVE INFORMATION BMI 32.0-32.9,adult Tobacco use disorder Hyperlipidemia with target LDL less than 70 RSD upper limb Type 2 diabetes mellitus with hemoglobin A1c goal of less than 8.0% ([facility]) Controlled substance agreement signed Generalized anxiety disorder Atherosclerosis of northwestern shoshone coronary artery of northwestern shoshone heart without angina pectoris Reactive depression Senile osteoporosis PAD (peripheral artery disease) ([facility]) Iron deficiency anemia due to chronic blood loss 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 Chronic superficial gastritis with bleeding Gastrointestinal hemorrhage with melena Lung nodules Moderate mitral regurgitation [place] (myocardial infarction) Bilateral carotid artery stenosis DM type 2 with diabetic peripheral neuropathy ([facility]) Right hand tendonitis Generalized arthritis Hand arthritis Centrilobular emphysema ([facility]) Superior mesenteric artery stenosis ([facility]) Celiac artery stenosis ([facility]) Major depressive disorder, recurrent, unspecified ([facility]) Non-proliferative diabetic retinopathy, both eyes ([facility]) Recurrent major depressive disorder, in partial remission ([facility]) Mesenteric ischemia, chronic ([facility]) COPD, group D, by GOLD 2017 classification ([facility]) Chronic ischemic heart disease Advanced directives, counseling/discussion Type 2 diabetes mellitus with peripheral artery disease ([facility]) 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- dominant side ([facility]) S/P femoral-femoral bypass surgery History of cardiac arrest Lactic acidosis Transaminitis Encephalopathy acute Pathological fracture of vertebra due to osteoporosis with routine healing, subsequent encounter S/P AKA (above knee amputation), left ([facility]) Status post below-knee amputation of left lower extremity ([facility]) Pre-ulcerative corn or callous Ischemic rest pain of lower extremity Ulcer of right foot, limited to breakdown of skin ([facility]) Dependent rubor Atherosclerosis of northwestern shoshone artery of extremity ([facility]) Labs: Lab Results Component Value Date/Time CREATININE - [facility] 0.8 09/06/2023 10:32 AM CREATININE - [facility] 0.8 04/09/2020 01:42 PM CREATININE MATILDA 19 04/09/2020 01:56 PM CREATININE MATILDA - [facility] 59 11/17/2021 02:54 PM CREATININE, RANDOM URINE - [facility] 151 04/13/2023 10:12 AM CREATININE, RANDOM URINE - [facility] 64 12/07/2019 03:43 PM CREATININE-OUTSIDE LAB 0.94 05/11/2023 12:00 AM Lab Results Component Value Date/Time POTASSIUM - [facility] 4.7 09/06/2023 10:32 AM POTASSIUM - [facility] 4.3 04/09/2020 01:42 [...] Component Value Date/Time HEMOGLOBIN A1C - [facility] 9.0 (H) 09/06/2023 10:32 AM HEMOGLOBIN A1C - [facility] 9.1 (H) 06/08/2023 05:36 AM HEMOGLOBIN A1C - [facility] 7.1 (H) 12/10/2022 01:18 PM HEMOGLOBIN A1C - [facility] 6.6 (H) 04/09/2020 01:42 PM HEMOGLOBIN A1C - [facility] 6.4 (H) 10/18/2019 07:47 AM HEMOGLOBIN A1C - [facility] 5.8 (H) 12/27/2018 01:41 PM documented in this encounter Plan of Treatment Upcoming Encounters Date Type Department Care Team (Latest Contact Info) Description 09/30/2023 3:30 PM EDT Imaging Radiology [address] 132 [facility] [place] [address] Arrived 10/10/2023 4:00 PM EDT Office Visit Nephrology, [address] [place] [address] Charla oPtter MD [address] [place] [id number] 10/11/2023 10:00 AM EDT Office Visit Pharmacy, [address] [place] [address] [place] [address] 10/12/2023 11:00 AM EDT Office Visit Cardiology, [facility] 132 [facility] [place] [address] Frantz Herrera MD [address] [place] [address] 12/07/2023 9:20 AM EDT Office Visit Family Medicine [address] [place] [phone] Courtney Restrepo MD [address] [place] [address] [place] [address] 01/17/2024 10:00 AM EST Hospital Encounter ENDO [facility], Endoscopy Room [facility] [address] [place] [phone] Cassandra Hart MD [address] [place] [address] 01/17/2024 10:00 AM EST - 01/17/2024 10:30 AM EST Surgery ENDO [facility], Endoscopy Room [facility] 132 [facility] [place] [phone] Cass[facility] [place] [address] ESOPHAGOGASTRODUODENOSCOPY (EGD), FLEXIBLE, TRANSORAL, DIAGNOSTIC 01/25/2024 10:30 AM EST Imaging Vascular Lab, [address] [facility] [place] [address] 01/25/2024 11:30 AM EST Imaging Vascular Lab, [address] 132 [facility] [place] [address] 02/01/2024 11:30 AM EST Office Visit Vascular Surgery, [facility] [place] [address] Nnamdi King MD [address] [place] [address] 02/08/2024 11:00 AM EST Imaging Radiology, [address] [place] [address] 02/17/2024 10:00 AM EST Office Visit [address] [place] [phone] Marshall Romano MD [address] [place] [address] [place] [address] Scheduled Procedures Name Priority Associated Diagnoses Date/Ti wv ESOPHAGOGASTRODUODENOSCOPY ( EGD), FLEXIBLE, TRANSORAL, DIAGNOSTIC 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 01/17/2024 10:00 AM EST ESOPHAGOGASTRODUODENOSCOPY ( EGD), FLEXIBLE, TRANSORAL, DIAGNOSTIC Recall Pendleton's esophagus Health Maintenance Due Date Last Done Comments DISCUSS TOBACCO CESSATION (REFER TO SMARTSET #6099) 1949 Cologuard 1994 Fecal Occult Blood Test [...] D LEVEL ONCE IN A LIFETIME-USE SMARTSET# 80197 Completed 10/16/2021, 12/27/2018 Alpha-1 Antitrypsin Discontinued HPV [...] this encounter Medical Devices Implanted Type Area Forklift Mechanic Device Identifier Shelf Expiration Date Model / Serial / Lot Stent Graft Icast [id number] - [id number] - [id number] Implanted:Qty : 1 on 04/14/2022 by Nnamdi King MD at OR [facility] [place] N/A: Mesenteric Artery GETINGE : MAQUET [id number] 02/21/2023 [id number] / [id number] / [id number] Description:implanted in SMA Stent Clark 3.0x15 Rx - [id number] Implanted:Qty : 1 on 11/12/2022 by Patrice Jose MD at CARDIAC LABS [facility] [place] MEDTRONIC : VASCULAR [id number] 11/28/2023 [id number] / / [id number] Stent R2p Misago 6fr [id number] - [id number] Implanted:Qty : 1 on 07/18/2023 by Nnamdi King MD at OR [facility] [place] Right: [facility] [employer] : CARDIO SYS [id number] 09/11/2023 [id number] / / [id number] documented as of this encounter Advance Directives [...] the patient have Health Care Power of Principal Military Analyst? Yes, in chart and reviewed as current [...] patient or by statute hierarchy) Care Teams Web Production Assistant Relationship Specialty Start Date End Date Courtney Restrepo MD [address] [place] [address] [place] [address] PCP - General Family Medicine 10/17/19 documented as of this encounter
--- OUTSIDE RECORDS SUMMARY | 2023-10-07 20:35 | External Medical Summary | Summary of Care ---
Author Name Unknown Organization [facility] Address [address] Care Team Providers Care Medical Doctor Md/Medical Director Name Role Phone Courtney Restrepo MD Primary Care Prov ider Reason for Visit * Reason Onset Date Comments Advice 09/12/2023 Encounter Details Date Type Department Care Team (Late st Contact Info) Description 09/12/2023 Telephone Pharmacy, [facility] [address] [place] [address] [place] [address] Advice Allergies Active Allergy Reactions Criticality [...] edema Nitroglycerin Hypotension 12/20/2018 Penicillins Nausea/vomiting 05/17/2007 [place] Hives 10/02/2018 Propoxyphene Edema face/lips/tongue,Hiv es 06/26/2009 documented as of this encounter (statuses as of 09/14/2023) Medications Medication Sig Dispensed Refills Start Date End Date Status busPIRone HCl 15 MG Oral Tablet (Buspar)Indications: Anxiety TAKE ONE TABLET TWICE DAILY 180 Tablet 1 10/15/2022 Active DULoxetine HCl 30 MG Oral Capsule Delayed Release Particles (Cymbalta)Indication s:Chronic midline thoracic back pain,Generalized anxiety disorder Take 1 Capsule by mouth in the morning and 1 Capsule before bedtime. 180 Capsule 2 10/15/2022 Active EveryScapeTouch Delica Lancets 30GIndications:Type 2 diabetes mellitus with [...] 20 MG Oral Tablet (Lasix)Indications:A therosclerosis of northern arapaho artery of left lower extremity with rest [...] TabletIndications:S/ P AKA (above knee amputation), left ([facility]) Take 1 Tablet by mouth every [...] ns:COPD, group D, by GOLD 2017 classification ([facility]) Inhale 2 Puffs by mouth in the morning and 2 Puffs before bedtime. 10.2 g 5 09/06/2023 Active Dulaglutide 0.75 MG/0.5ML Subcutaneous Solution Pen-injector (Victorious) Inject 0.75 mg under the skin once [...] for muscle spasm. 30 Tablet 09/12/2023 Active documented as of this encounter (statuses as of 09/14/2023) Active Problems Problem Noted Date Diagnosed Date Ischemic rest pain of lower extremity 07/14/2023 Ulcer of right foot, limited to breakdown of ski n 07/14/2023 Dependent rubor 07/14/2023 Atherosclerosis of northern arapaho artery of extremity Pre-ulcerative corn or callous [...] rinse after steroid. Test performed by Bibiana PRODUCT MARKETING COORDINATOR CPFT Old ID (myocardial infarction) 02/21/2019 Bilateral [...] osteoporosis 07/03/2018 Reactive depression 11/17/2017 Atherosclerosis of northern [place]rapaho co ronary artery of northern arapaho heart without angina pectoris 07/22/2015 Overview: Single [...] rinse after steroid. Test performed by Bibiana PRODUCT MARKETING COORDINATOR CPFT GENERAL OSTEOARTHROSIS BMI 32.0-32.9,adult Tobacco use disorder Hyperlipidemia with target LDL less than 70 Overview: ICD-10 update of inactive term RSD upper limb Overview: left arm Generalized anxiety disorder documented as of this encounter (statuses as of 09/14/2023) Resolved Problems Problem Noted Date Diagnosed Date [...] ISCHEMIC HRT DIS NOS Coronary atherosclerosis of northern arapaho coronary artery 11/24/2016 Tobacco abuse 11/17/2017 documented as of this encounter (statuses as of 09/14/2023) Immunizations Name Administration Dates Next Due COVID-19 [...] No 07/01/2023 Does the household have a [facility] health care facility[facility] source of income? (Household - for ages [...] Telephone Encounter - Dunia Nieves RN - 09/14/2023 8:37 AM EDT HH states pt is doing better. Has an appt in 2 week * Telephone Encounter - Courtney Restrepo MD - 09/13/2023 4:11 PM EDT Please call her to find out if she still has symptoms. If yes, make acute appointment. * Telephone Encounter - Renetta Hall CMA - 09/12/2023 1:08 PM EDT HH had called and patient was advised to go the ER for vomiting, abdominal pain and chills. She didn't go because she improved. Does she need seen here for follow up? Has appointment anyway on 09/27/2023. * Telephone Encounter - Zenia Goldberg RPh - 09/12/2023 12:35 PM EDT Patient Phone Numbers Returned patient's call. States she did NOT go to ER as instructed on 09/08. Started to feel better and did not feel the need to go. Routing to nursing team to see if f/u visit is needed. Sensor placed at front end wheel loader operator for patient to obtain. Zenia Goldberg RPh, PharmD Clinical Pharmacist - Soldering Inspector [facility] 09/12/2023, 12:36 PM [phone] * Telephone Encounter - Vikki Wei CPhT - 09/12/2023 9:47 AM EDT Caller's name: Carlottayessica Enciso call back number(OFFICE NUMBER FOR ): [phone] Reason for call: asking if you have a Dexcom G7 sensor you can give her. Vikki Wei CPhT, STEVE Electric Screw Driver Operator II [facility] ([facility] (formerly Telepharmacy) [address] [facility] [address] [place] [address] ext [phone] documented in this encounter Plan of Treatment Upcoming Encounters Date Type Department Care Team (Latest Contact Info) Description 09/27/2023 9:40 AM EDT Office Visit Family Medicine [address] [phone] Cuortney Restrepo MD [address] [place] [address] [place] [address] 10/10/2023 4:00 PM EDT Office [address], [address] [address] Charla Potter MD [address] [place], [place] [phone] 10/11/2023 10:00 AM EDT Office Visit Pharmacy, [address] [place] [address] [place] [address] 10/12/2023 11:00 AM EDT Office Visit Cardiology, [facility] 132 [facility] [place] [address] Frantz Herrera MD [address] [place] [address] 12/07/2023 9:20 AM EDT Office Visit Family Medicine [address] [phone] Courtney Restrepo MD [address] [place] [address] [place] [address] 01/17/2024 10:00 AM EST Hospital Encounter ENDO [facility], Endoscopy Room [facility] [address] [place] [phone] Cassandra Hart MD [address] [place] [address] 01/17/2024 10:00 AM EST - 01/17/2024 10:30 AM EST Surgery ENDO [facility], Endoscopy Room [facility] [address] [place] [phone] Cassandra Hart MD [address] [place] [address] ESOPHAGOGASTRODUODENOSCOPY (EGD), FLEXIBLE, TRANSORAL, DIAGNOSTIC 01/25/2024 10:30 AM EST Imaging Vascular Lab, [facility] 2nd [facility] 132 [facility] [place] [address] 01/25/2024 11:30 AM EST Imaging Vascular Lab, [address] 132 [facility] [place] [address] 02/01/2024 11:30 AM EST Office Visit Vascular Surgery, [facility] 132 [facility] [place] [address] Nnamdi King MD [address] [facility] [place] [address] 02/08/2024 11:00 AM EST Imaging Radiology, [place] [phone] [facility] [place] [address] 02/17/2024 10:00 AM EST Office Visit [address] [place] [phone] Marshall Romano MD [facility] [place] [address] Scheduled Procedures Name Priority Associated Diagnoses Date/Ti me ESOPHAGOGASTRODUODENOSCOPY ( EGD), FLEXIBLE, TRANSORAL, DIAGNOSTIC 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 01/17/2024 10:00 AM EST ESOPHAGOGASTRODUODENOSCOPY ( EGD), FLEXIBLE, TRANSORAL, DIAGNOSTIC Recall Pendleton's esophagus Health Maintenance Due Date Last Done Comments DISCUSS TOBACCO CESSATION (REFER TO SMARTSET #7828) 1949 Cologuard 1994 Fecal Occult Blood Test [...] D LEVEL ONCE IN A LIFETIME-USE SMARTSET# 29849 Completed 10/16/2021, 12/27/2018 Alpha-1 Antitrypsin Discontinued HPV [...] this encounter Medical Devices Implanted Type Area Relief Charge Nurse Device Identifier Shelf Expiration Date Model / Serial / Lot Stent Graft Icast [id number] - [id number] - [id number] Implanted:Qty : 1 on 04/14/2022 [place]namdi [place] [facility] [place]: Mesenteric Artery GETINGE : MAQUET [id number] 02/21/2023 [id number] / [id number] / [id number] Description:implanted in SMA Stent [place] 3.0x15 Rx - [id number] Implanted:Qty : 1 on 11/12/2022 by Patrice Jose MD [place] [facility] [employer] : VASCULAR [id number] 11/28/2023 [id number] / / [id number] Stent R2p Misago 6fr [id number] - [id number] Implanted:Qty : 1 on 07/18/2023 by Nnamdi King [place] [facility] Right: [facility] [employer]UM [employer] : CARDIO SYS [id number] 09/11/2023 [id number] / / [id number] documented as of this encounter Advance Directives [...] the patient have Health Care Power of Hematologist? Yes, in chart and reviewed as current [...] patient or by statute hierarchy) Care Teams Medical Doctor Md/Medical Director Relationship Specialty Start Date End Date Courtney Restrepo MD [address] [place] [address] [place] [id number] PCP - General Family Medicine 10/17/19 documented as of this encounter
--- OUTSIDE RECORDS SUMMARY | 2023-10-07 20:35 | External Medical Summary | Summary of Care ---
Author Name Unknown Organization [facility] Address [address] [place] [address] Phone [phone] Care Team Providers Care Display Card Writer Name Role Phone Courtney Restrepo MD Primary Care Prov ider Reason for Referral * Precert (Within 10 days (routine)) - Pending Review Specialty Diagnoses / Procedures Referred By Contac t Referred To Contact Radiology Diagnoses Liver nodule Procedures MRI LIVER W WO CONTRAST Courtney Restrepo MD [address] [place] [address] [place] [address] Referral ID Status Reason Start Date Expiration Date V isits Requested Visits Authorized [id number] Pending Review 10/04/2023 999 999 * Precert (Within 10 days (routine)) - Authorized Specialty Diagnoses / Procedures Referred By Contac t Referred To Contact Radiology Diagnoses Lung nodule seen on imaging study COPD, group D, by GOLD 2017 classification (HCC) Procedures CT CHEST W CONTRAST CT CHEST W WO CONTRAST Courtney Restrepo MD [address] [place] [address] [place] [address] Referral ID Status Reason Start Date Expiration Date V isits Requested Visits Authorized [id number] Authorized Precert 09/27/2023 03/25/2024 999 999 * Evaluate & Treat - Unlimited Visits (Within 10 days (routine)) - Authorized Specialty Diagnoses / Procedures Referred By Rosalia chandra Referred To Contact Gastroenterology Diagnoses 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 Courtney Restrepo MD [address] [place] [address] [place] [address] Referral ID Status Reason Start Date Expiration Date Visits Requested Visits Authorized [id number] Authorized Ancillary Services Required 09/27/2023 999 999 Question Answer Referral Priority Within 10 days (routine) Where should this appointment be scheduled? [facility] Comments Upper Endoscopy ASGE Guidelines Pendleton's esophagus surveillance ADDITIONAL INFORMATION 1. Is the patient on Coumadin? No 2. Is the patient on Pradaxa? No Reason for Visit * Reason Comments Follow Up 3 mo f/u Encounter Details Date Type Department Care Team (Latest Contact Info) Description 09/27/2023 9:40 AM EDT Office Visit Family Medicine [address] [place] [phone] Courtney Restrepo MD [address] [place] [address] [place] [address] Lung nodule seen on imaging study*; COPD, group D, by GOLD 2017 classification ([facility]); Type 2 diabetes mellitus with hemoglobin A1c goal of less than 8.0% ([facility]); Status post below-knee amputation of left lower extremity ([facility]); Tobacco use disorder; 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; Skin tear of right elbow without complication, initial encounter; Liver nodule Allergies Active Allergy Reactions Criticality Noted Date [...] edema Nitroglycerin Hypotension 12/20/2018 Penicillins Nausea/vomiting 05/17/2007 [place] Hives 10/02/2018 Propoxyphene Edema face/lips/tongue,Hiv es 06/26/2009 documented as of this encounter (statuses as of 10/03/2023) Medications Medication Sig Dispensed Refills Start Date [...] 20 MG Oral Tablet (Lasix)Indications: Atherosclerosis of [place] artery of left lower extremity with rest pain ([facility]),DM type 2 with diabetic peripheral neuropathy ([facility]) One daily 30 Tablet 5 4 Active [...] ons:COPD, group D, by GOLD 2017 classification ([facility]) Inhale 2 Puffs by mouth in the morning and 2 Puffs before bedtime. 10.2 g 5 4 Active Dulaglutide 0.75 MG/0.5ML Subcutaneous Solution Pen-injector ([employer]) Inject 0.75 mg under the skin once a week. DxE11.9 2 mL 3 4 Active Ferrous Sulfate 325 (65 Fe) MG Oral Tablet (Feosol)Indications :Iron deficiency anemia, unspecified iron deficiency anemia type Take 1 Tablet by mouth in the morning and 1 Tablet before bedtime. 60 Tablet 11 4 Active HYDROcodone-Acetami nophen 5-325 MG Oral TabletIndications:S /P AKA (above knee amputation), left ([facility]) Take 1 Tablet by mouth every 6 [...] 8.0% ([facility]) Take 1 Tablet by mouth in the [...] as of this encounter (statuses as of 10/03/2023) Active Problems Problem Noted Date Diagnosed Date Ischemic rest pain of lower extremity 07/14/2023 Ulcer of right foot, limited to breakdown of ski n 07/14/2023 Dependent rubor 07/14/2023 Atherosclerosis of [place] artery of extremity Pre-ulcerative corn or callous [...] rinse after steroid. Test performed by Bibiana [employer]PER[employer] MA[employer] [place] (myocardial infarction) 02/21/2019 Bilateral [...] osteoporosis 07/03/2018 Reactive depression 11/17/2017 Atherosclerosis of [place] co ronary artery of [place] heart without angina pectoris 07/22/2015 Overview: Single [...] rinse after steroid. Test performed by Bibiana [employer]ARM OPERATIONS MANAGER [employer] GENERAL OSTEOARTHROSIS BMI 32.0-32.9,adult Tobacco use disorder Hyperlipidemia with target LDL less than 70 Overview: ICD-10 update of inactive term RSD upper limb Overview: left arm Generalized anxiety disorder documented as of this encounter (statuses as of 10/03/2023) Resolved Problems Problem Noted Date Diagnosed Date [...] ISCHEMIC HRT DIS NOS Coronary atherosclerosis of [place] coronary artery 11/24/2016 Tobacco abuse 11/17/2017 documented as of this encounter (statuses as of 10/03/2023) Immunizations Name Administration Dates Next Due COVID-19 [...] Progress Notes * Courtney Restrepo MD - 09/27/2023 10:13 AM EDT Subjective Carlotta Khan is a 72 year old female. Chief Complaint Patient presents with Follow Up 3 mo f/u HPI: Close follow up for vasculopathy, left BKA, recent aspiration pneumonia, COPD/ Smoking PMH includes recent left AKA due to PAD, dedicated smoker, type 2 DM, Lipids, COPD, Mesenteric ischemia, h/o CVA, h/o FL. COPD/PNA/ Nodule. Still productive cough, denies SOB and fevers. Completed the clindamycin. Recent CXR showing RUL 11mm spiculated nodule, recommended Pulm follow up and poss chest Ct. Does feel she has trouble swallowing; will cough/ choke/ feels things stick. Last EGD 2018 for Josh. Vascular: Short term follow up due to [...] States her sugars are highly variable. Has lowsto 40s, highs in 300s. States her fingersticks often read higher than the dexcom; wonders if working right. Prev: DEXA, vaccines, EGD for josh Moreno. Does have trouble swallowing. PMH: Patient Active Problem List Diagnosis Moderate persistent asthma without complication GENERAL OSTEOARTHROSIS Cerebrovascular disease, arteriosclerotic, post-stroke ADVANCE DIRECTIVE INFORMATION BMI 32.0-32.9,adult Tobacco use disorder Hyperlipidemia with target LDL less than 70 RSD upper limb Type 2 diabetes mellitus with hemoglobin A1c goal of less than 8.0% ([facility]) Controlled substance agreement signed Generalized anxiety disorder Atherosclerosis of [place] coronary artery of [place] heart without angina pectoris Reactive depression Senile osteoporosis PAD (peripheral artery disease) ([facility]) Iron deficiency anemia due to chronic blood loss 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 Chronic superficial gastritis with bleeding Gastrointestinal hemorrhage with melena Lung nodules Moderate mitral regurgitation [place] (myocardial infarction) Bilateral carotid artery stenosis DM type 2 with diabetic peripheral neuropathy (HCC) Right hand tendonitis Generalized arthritis Hand arthritis Centrilobular emphysema (HCC) 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 (HCC) Major depressive disorder, recurrent, unspecified ([facility]) Non-proliferative diabetic retinopathy, both eyes ([facility]) Recurrent major depressive disorder, in partial remission ([facility]) Mesenteric ischemia, chronic ([facility]) COPD, group D, by GOLD 2017 classification ([facility]) Chronic ischemic heart disease Advanced directives, counseling/discussion Type 2 diabetes mellitus with peripheral artery disease ([facility]) 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- dominant side ([facility]) S/P femoral-femoral bypass surgery History of cardiac arrest Lactic acidosis Transaminitis Encephalopathy acute Pathological fracture of vertebra due to osteoporosis with routine healing, subsequent encounter S/P AKA (above knee amputation), left ([facility]) Status post below-knee amputation of left lower extremity (HCC) Pre-ulcerative corn or callous Ischemic rest pain of lower extremity Ulcer of right foot, limited to breakdown of skin (HCC) Dependent rubor Atherosclerosis of [place] artery of extremity (HCC) Current Outpatient Medications [...] Take 1 Capsule by mouth every evening. [employer]il [employer] Verio In Vitro Strip (Glucose Blood) Test [...] 5 Dulaglutide 0.75 MG/0.5ML Subcutaneous Solution Pen-injector ([employer]) Inject 0.75 mg under the skin once [...] and periorbital edema Nitroglycerin Hypotension Penicillins Nausea/vomiting [place] Hives Propoxyphene Edema face/lips/tongue and Hives Objective [...] classification ([facility]) - CT CHEST W WO CONTRAST Type 2 diabetes mellitus with hemoglobin A1c goal of less than 8.0% ([facility]) - Empagliflozin 10 MG Oral Tablet (Jardiance); Take 1 Tablet by mouth in the morning. Status post below-knee amputation of left lower extremity ([facility]) Tobacco use disorder 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 [...] date of . documented in this encounter Miscellaneous Notes * Addendum Note - Courtney Restrepo MD - 10/03/2023 12:14 PM EDT Addended by: COURTNEY JAY on: 10/03/2023 12:14 PM Modules accepted: Orders documented in this encounter Plan of Treatment Upcoming Encounters Date Type Department Care Team (Latest Contact Info) Description 10/10/2023 4:00 PM EDT Office Visit Nephrology, [facility] [address] [facility] [place], [place] [address] Charla Potter MD [address] [place] [address] 10/11/2023 10:00 AM EDT Office Visit Pharmacy, [address] [place] [address] [place] [address] 10/12/2023 11:00 AM EDT Office Visit Cardiology, [facility] [address] [place] [address] Frantz Herrera MD [address] [facility] [place] [address] 12/07/2023 9:20 AM EDT Office Visit Family Medicine [address] [place] [phone] Courtney Restrepo MD [address] [place] [address] [place] [address] 01/17/2024 10:00 AM EST Hospital Encounter ENDO [facility], Endoscopy Room [facility] [address] [place] [phone] Cassandra Hart MD [address] [place] [address] 01/17/2024 10:00 AM EST - 01/17/2024 10:30 AM EST Surgery ENDO [facility], Endoscopy Room [facility] [address] [place] [phone] Cassandra Hart MD [address] [place] [address] ESOPHAGOGASTRODUODENOSCOPY (EGD), FLEXIBLE, TRANSORAL, DIAGNOSTIC 01/25/2024 10:30 AM EST Imaging Vascular Lab, [address] [place] [address] 01/25/2024 11:30 AM EST Imaging Vascular Lab, [address] [facility] [place] [address] 02/01/2024 11:30 AM EST Office Visit Vascular Surgery, [facility] [address] [facility] [place] [address] Nnamdi King MD [address] [place] [address] 02/08/2024 11:00 AM EST Imaging Radiology, [place] [address] [place] [address] 02/17/2024 10:00 AM EST Office Visit Rheumatology [address] [place] [address] Marshall Romano MD [address] [place] [address] Scheduled Orders Name Type Priority Associated Diagnoses Orde r Schedule MRI LIVER W WO CONTRAST Medical Imaging Routine Liver nodule Expected: 10/04/2023, Expires: 11/02/2024 Scheduled Procedures Name Priority Associated Diagnoses Date/Ti ri ESOPHAGOGASTRODUODENOSCOPY ( EGD), FLEXIBLE, TRANSORAL, DIAGNOSTIC Pendleton's [...] D LEVEL ONCE IN A LIFETIME-USE SMARTSET# [id number] Completed 10/16/2021, 12/27/2018 Alpha-1 Antitrypsin Discontinued HPV [...] this encounter Medical Devices Implanted Type Area Graves Registration Specialist Device Identifier Shelf Expiration Date Model / Serial / Lot Stent Graft Icast [id number] - [id number] - [id number] Implanted:Qty : 1 on 04/14/2022 by Nnamdi King MD at OR [facility] N/A: Mesenteric Artery GETINGE : MAQUET [id number] 02/21/2023 [id number] / [id number] / [id number] Description:implanted in SMA Stent Howie 3.0x15 Rx - [id number] Implanted:Qty : 1 on 11/12/2022 by Patrice Jose MD at CARDIAC LABS [facility] [employer] : VASCULAR [id number] 11/28/2023 [id number] / / [id number] Stent R2p Misago 6fr [id number] - [id number] Implanted:Qty : 1 on 07/18/2023 by Nnamdi King MD at OR [facility] Right: [facility] CARDIO SYS [id number] 09/11/2023 [id number] / / [id number] documented as of this encounter Procedures Procedure Name Priority Date/Time Associated Diagnosis Comments CT CHEST W CONTRAST Routine 09/30/2023 3:43 PM EDT Lung nodule seen on imaging study COPD, group D, by GOLD 2017 classification (HCC) documented in this encounter Results * CT CHEST W CONTRAST (09/30/2023 3:43 PM EDT) Anatomical Region Laterality Modality Chest, Body, Cardio Computed Morgan ography 10/02/2023 2:27 PM EDT Impressions 10/02/2023 2:24 PM EDT IMPRESSION 1. Stable size of the right upper lobe nodule. Lesion appears to contain less spiculation. 2. 16 millimeter hyperenhancing nodule in the left hepatic lobe. Recommend MRI of the abdomen with and without contrast for further evaluation. Narrative 10/02/2023 2:24 PM EDT EXAM EXAM: CT CHEST W CONTRAST DATE and TIME: 09/30/2023 3:43 pm HISTORY CLINICAL INFORMATION: RUL nodule; follow up pneumonia TECHNIQUE Modality: CT COMPARISON 05/21/2019 FINDINGS THYROID:No suspicious features. THORACIC AORTA: No thoracic aortic aneurysm. CORONARY ARTERIES: Severe coronary artery calcifcation. MAIN PULMONARY ARTERY: Normal sized. HEART: Nopericardial effusion. ESOPHAGUS: Grossly unremarkable. MEDIASTINUM AND FRANC: Unremarkable. CHEST SOFT TISSUES: Unremarkable CHEST WALL: Unremarkable. LUNGS: Mild centrilobular emphysema. The overall size of the right upper lobe lobe nodule is unchanged at 12 x 9 millimeters. There appears to be less spiculations on today study. Other subcentimeter pulmonary nodules are stable. LARGE AIRWAYS: Unremarkable UPPER ABDOMEN: 16 millimeter hyperenhancing nodule in the left hepatic lobe on 8:271. Procedure Note Remi Kingston MD - 10/02/2023 EXAM EXAM: CT CHEST W CONTRAST DATE and TIME: 09/30/2023 3:43 pm HISTORY CLINICAL INFORMATION: RUL nodule; follow up pneumonia TECHNIQUE Modality: CT COMPARISON 05/21/2019 FINDINGS THYROID:No suspicious features. THORACIC AORTA: No thoracic aortic aneurysm. CORONARY ARTERIES: Severe coronary artery calcifcation. MAIN PULMONARY ARTERY: Normal sized. HEART: Nopericardial effusion. ESOPHAGUS: Grossly unremarkable. MEDIASTINUM AND FRANC: Unremarkable. CHEST SOFT TISSUES: Unremarkable CHEST WALL: Unremarkable. LUNGS: Mild centrilobular emphysema. The overall size of the right upperlobe lobe nodule is unchanged at 12 x 9 millimeters. There appears to beless spiculations on today study. Other subcentimeter pulmonary nodulesare stable. LARGE AIRWAYS: Unremarkable UPPER ABDOMEN: 16 millimeter hyperenhancing nodule in the left hepaticlobe on 8:271. IMPRESSION IMPRESSION 1. Stable size of the right upper lobe nodule. Lesion appears to containless spiculation. 2. 16 millimeter hyperenhancing nodule in the left hepatic lobe. RecommendMRI of the abdomen with and without contrast for further evaluation. Courtney Morejon MD RAD CT documented in this encounter Visit Diagnoses Diagnosis Lung nodule seen on imaging study- Primary Solitary pulmonary nodule COPD, group D, by GOLD 2017 classification (HCC) Type 2 diabetes mellitus with hemoglobin A1c goal of less than 8.0% (HCC) Status post below-knee amputation of left lower extremity (HCC) Tobacco use disorder 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 Pendleton's esophagus Skin tear of right elbow without complication, initial encounter Liver nodule Other specified disorders of liver 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 Pendleton's esophagus documented [...] the patient have Health Care Power of Chemical Tester? Yes, in chart and reviewed as current [...] patient or by statute hierarchy) Care Teams Display Card Writer Relationship Specialty Start Date End Date Courtney Restrepo MD [address] [place] [address] [place] [address] PCP - General Family Medicine 10/17/19 documented as of this encounter
--- OUTSIDE RECORDS SUMMARY | 2023-10-07 20:35 | External Medical Summary | Summary of Care ---
Author Name Unknown Organization [facility] Address [address] [place] [address] Phone [phone] Care Team Providers Care [place] Marshal Name Role Phone Courtney Restrepo MD Primary Care Prov ider Reason for Visit * Reason Onset Date Comments Appointment 09/27/2023 Upper endoscopy Encounter Details Date Type Department Care Team (Late st Contact Info) Description 09/27/[address] [phone] Courtney Restrepo MD [address] [place], [place] [address] [address] Appointment (Upper endoscopy ) Allergies Active [...] edema Nitroglycerin Hypotension 12/20/2018 Penicillins Nausea/vomiting 05/17/2007 [place] Hives 10/02/2018 Propoxyphene Edema face/lips/tongue,Hiv es 06/26/2009 [...] before bedtime. 180 Capsule 2 10/15/2022 Active [employer] Delica Lancets 30GIndications:Type 2 diabetes mellitus with [...] 20 MG Oral Tablet (Lasix)Indications:A therosclerosis of yomba shoshone artery of left lower extremity with [...] ns:COPD, group D, by GOLD 2017 classification ([facility]) Inhale 2 Puffs by mouth in the morning and 2 Puffs before bedtime. 10.2 g 5 09/06/2023 Active Dulaglutide 0.75 MG/0.5ML Subcutaneous Solution Pen-injector ([employer]) Inject 0.75 mg under the skin once [...] TabletIndications:S/ P AKA (above knee amputation), left ([facility]) Take 1 Tablet by mouth every 6 hours as needed for Pain, Mild or Pain, Severe. 60 Tablet 09/20/2023 Active Doxycycline Monohydrate 100 MG Oral Capsule Take 1 Capsule by mouth in the morning and 1 Capsule before bedtime. 09/24/2023 Active Empagliflozin 10 MG Oral Tablet (Jardiance)Indicatio ns:Type 2 diabetes mellitus with hemoglobin A1c goal of less than 8.0% ([facility]) Take 1 Tablet by mouth in the [...] n 07/14/2023 Dependent rubor 07/14/2023 Atherosclerosis of yomba shoshone artery of extremity Pre-ulcerative corn or [...] rinse after steroid. Test performed by Bibiana POWER PLANT ENGINEER CPFT [place] (myocardial infarction) 02/21/2019 Bilateral [...] osteoporosis 07/03/2018 Reactive depression 11/17/2017 Atherosclerosis of yomb[place] shoshone co ronary artery of y[place] shoshone heart without angina pectoris 07/22/2015 Overview: [...] rinse after steroid. Test performed by Bibiana POWER PLANT ENGINEER CPFT GENERAL OSTEOARTHROSIS BMI 32.0-32.9,adult Tobacco [...] ISCHEMIC HRT DIS NOS Coronary atherosclerosis of [place] shoshone coronary artery 11/24/2016 Tobacco abuse 11/17/2017 [...] encounter Miscellaneous Notes * Telephone Encounter - Nika Rodriguez OSA - 09/27/2023 11:53 AM EDT Pt has been scheduled for EGD since July. For 01/17/24 * Telephone Encounter - Margret Potts OSA - 09/27/2023 11:03 AM EDT Carlotta martinez scheduled for upper endoscopy for: 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 [K22.70] documented in this encounter Plan of Treatment Upcoming Encounters Date Type Department Care Team (Latest Contact Info) Description 09/30/2023 3:30 PM EDT Imaging Radiology [facility] 1st [facility] [address] [facility] [place] [address] 10/10/2023 4:00 PM EDT Office Visit Nephrology, [address] [place] [address] Charla Potter MD [address] [place] [address] [place] [address] 10/11/2023 10:00 AM EDT Office Visit Pharmacy, [address] [place] [address] [place] [address] 10/12/2023 11:00 AM EDT Office Visit Cardiology, [facility] [address] [place] [address] Frantz Herrera MD [address] [facility] [place] [address] 12/07/2023 9:20 AM EDT Office Visit [address] [place] [address] Courtney Restrepo MD [address] [place] [address] [place] [address] 01/17/2024 10:00 AM EST Hospital Encounter ENDO [facility], Endoscopy Room [facility] [address] [place] [phone] Cassandra Hart MD [address] [place] [address] 01/17/2024 10:00 AM EST - 01/17/2024 10:30 AM EST Surgery ENDO [facility], Endoscopy Room [facility] [address] [place] [address] Cassandra Hart MD [address] [place] [address] ESOPHAGOGASTRODUODENOSCOPY (EGD), FLEXIBLE, TRANSORAL, DIAGNOSTIC 01/25/2024 10:30 AM EST Imaging Vascular Lab, [facility] 2nd [facility] [place] [address] [place] [address] 01/25/2024 11:30 AM EST Imaging Vascular Lab, [facility] [place] [address] [place] [address] 02/01/2024 11:30 AM EST Office Visit Vascular Surgery, [facility] [address] [place] [address] Nnamdi King MD [address] [facility] [place] [address] 02/08/2024 11:00 AM EST Imaging Radiology, [place] [address] [place] [address] 02/17/2024 10:00 AM EST Office Visit Rheumatology [address] [place] [address] Marshall Romano MD [address] [place] [address] Scheduled Procedures Name Priority Associated Diagnoses Date/Ti me ESOPHAGOGASTRODUODENOSCOPY ( EGD), FLEXIBLE, TRANSORAL, DIAGNOSTIC 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 01/17/2024 10:00 AM EST ESOPHAGOGASTRODUODENOSCOPY ( EGD), FLEXIBLE, TRANSORAL, DIAGNOSTIC Recall Pendleton's esophagus Health Maintenance Due Date Last Done Comments DISCUSS TOBACCO CESSATION (REFER TO SMARTSET #9714) 1949 Cologuard 1994 Fecal Occult Blood Test [...] 12/27/2018, Additional history exists HbA1c 03/07/2024 09/06/2023, 032 09/2023, 12/10/2022, Additional history exists Albumin/Creatinine Ratio [...] D LEVEL ONCE IN A LIFETIME-USE SMARTSET# 52373 Completed 10/16/2021, 12/27/2018 Alpha-1 Antitrypsin Discontinued HPV [...] this encounter Medical Devices Implanted Type Area Vp Care Management Device Identifier Shelf Expiration Date Model / Serial / Lot Stent Graft Icast [id number] - [id number] - [id number] Implanted:Qty : 1 on 04/14/2022 by Nnamdi King MD at OR [facility] N/A: Mesenteric Artery GETINGE : VITOR [id number] 02/21/2023 [id number] / [id number] / [id number] Description:implanted in SMA Stent Howie 3.0x15 Rx - [id number] Implanted:Qty : 1 on 11/12/2022 by Patrice Jose MD at CARDIAC LABS [facility] MED[employer]ON[employer] : VASCULAR [id number] 11/28/2023 [id number] / / [id number] Stent R2p Misago 6fr [id number] - [id number] Implanted:Qty : 1 on 07/18/2023 by Nnamdi King MD at OR [facility] Right: [facility] : CARDIO SYS [id number] 09/11/2023 [id number] / / [id number] documented as of this encounter Advance Directives [...] the patient have Health Care Power of Chronometer Assembler And Adjuster? Yes, in chart and reviewed as current [...] patient or by statute hierarchy) Care Teams United [place] Marshal Relationship Specialty Start Date End Date Courtney Restrepo MD [address] [place] [address] [place] [id number] PCP - General Family Medicine 10/17/19 documented as of this encounter
--- OUTSIDE RECORDS SUMMARY | 2023-10-07 20:35 | External Medical Summary | Summary of Care ---
Author Name Unknown Organization [facility] Address [address] [place] [address] Phone [phone] Care Team Providers Care Business Instructor Name Role Phone Courtney Restrepo MD Primary Care Prov ider Reason for Visit * Reason Onset Date Comments Medication Refill 09/19/2023 Encounter Details Date Type Department Care Team (Late st Contact Info) Description 09/19/[address] [phone] Courtney Restrepo MD [address] [place], [place] [address] [address] S/P AKA (above knee amputation), left (HCC) Allergies Active Allergy Reactions Criticality Noted [...] edema Nitroglycerin Hypotension 12/20/2018 Penicillins Nausea/vomiting 05/17/2007 [place] Hives 10/02/2018 Propoxyphene Edema face/lips/tongue,Hiv es 06/26/2009 documented as of this encounter (statuses as of 09/20/2023) Medications Medication Sig Dispensed Refills Start Date End Date Status busPIRone HCl 15 MG Oral Tablet (Buspar)Indications :Anxiety TAKE ONE TABLET TWICE DAILY 180 Tablet 1 3 Active DULoxetine HCl 30 MG Oral Capsule Delayed Release Particles (Cymbalta)Indicatio ns:Chronic midline thoracic back pain,Generalized anxiety disorder Take 1 Capsule by mouth in the morning and 1 Capsule before bedtime. 180 Capsule 2 3 Active [employer]Touch Delica Lancets 30GIndications:Type 2 diabetes mellitus with [...] 20 MG Oral Tablet (Lasix)Indications: Atherosclerosis of lower sioux artery of left lower extremity with rest pain ([facility]),DM type 2 with diabetic peripheral neuropathy ([facility]) One daily 30 Tablet 5 4 Active [...] classification ([facility]) Inhale 2 Puffs by mouth in the morning and 2 Puffs before bedtime. 10.2 g 5 4 Active Dulaglutide 0.75 MG/0.5ML Subcutaneous Solution Pen-injector ([facility]) Inject 0.75 mg under the skin once [...] for muscle spasm. 30 Tablet 4 Active HYDROcodone-Acetami nophen 5-325 MG Oral TabletIndications:S /P AKA (above knee amputation), left ([facility]) Take 1 Tablet by mouth every 6 hours as needed for Pain, Mild or Pain, Severe. 60 Tablet 4 Active HYDROcodone-Acetami nophen 5-325 MG Oral TabletIndications:S /P AKA (above knee amputation), left ([facility]) Take 1 Tablet by mouth every 6 hours as needed for Pain, Mild or Pain, Severe. 60 Tablet 4 09/19/19 24 Discontinu ed(Refill) documented as of this encounter (statuses as of 09/20/2023) Active Problems Problem Noted Date Diagnosed Date [...] rinse after steroid. Test performed by Bibiana CORE MAKER CPFT [place] (myocardial infarction) 02/21/2019 Bilateral [...] rinse after steroid. Test performed by Bibiana CORE MAKER CPFT GENERAL OSTEOARTHROSIS BMI 32.0-32.9,adult Tobacco use disorder Hyperlipidemia with target LDL less than 70 Overview: ICD-10 update of inactive term RSD upper limb Overview: left arm Generalized anxiety disorder documented as of this encounter (statuses as of 09/20/2023) Resolved Problems Problem Noted Date Diagnosed Date [...] as of this encounter (statuses as of 09/20/2023) Immunizations Name Administration Dates Next Due COVID-19 [...] No 07/01/2023 Does the household have a [facility] source of income? (Household - for [...] Telephone Encounter - Courtney Restrepo MD - 09/20/2023 8:05 AM EDT Signed Prescriptions: Disp Refills HYDROcodone-Acetaminophen 5-325 MG Oral Ta*60 Tab*0 Sig: Take 1 Tablet by mouth every 6 hours as needed for Pain, Mild or Pain, Severe. Authorizing Provider: COURTNEY RESTREPO * Telephone Encounter - Leeanne BautistaVIC - 09/19/2023 4:13 PM EDT Pending Prescriptions: Disp Refills HYDROcodone-Acetaminophen 5-325 MG Oral T*60 Tab*0 Sig: Take 1 Tablet by mouth every 6 hours as needed for Pain, Mild or Pain, Severe. Last Visit: 09/06/2023 (in office), 11/29/2022 (telemedicine) Next Visit: 09/27/2023 Last date the medication was ordered: 08/09/23 Patient Active Problem List Diagnosis Moderate persistent asthma without complication GENERAL OSTEOARTHROSIS Cerebrovascular disease, arteriosclerotic, post-stroke ADVANCE DIRECTIVE INFORMATION BMI 32.0-32.9,adult Tobacco use disorder Hyperlipidemia with target LDL less than 70 RSD upper limb Type 2 diabetes mellitus with hemoglobin A1c goal of less than 8.0% ([facility]) Controlled substance agreement signed Generalized anxiety disorder Atherosclerosis of lower 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 angina pectoris Reactive depression Senile osteoporosis PAD (peripheral artery disease) ([facility]) Iron deficiency anemia due to chronic blood loss 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 Chronic superficial gastritis with bleeding Gastrointestinal hemorrhage with melena Lung nodules Moderate mitral regurgitation [place] (myocardial infarction) Bilateral carotid artery stenosis DM [...] 2017 classification ([facility]) Chronic ischemic heart disease Advanced directives, counseling/discussion 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) 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- dominant side ([facility]) S/P femoral-femoral bypass surgery History of cardiac arrest Lactic acidosis Transaminitis Encephalopathy acute Pathological fracture of vertebra due to osteoporosis with routine healing, subsequent encounter S/P AKA (above knee amputation), left ([facility]) Status post below-knee amputation of left lower extremity ([facility]) Pre-ulcerative corn or callous Ischemic rest pain of lower extremity Ulcer of right foot, limited to breakdown of skin ([facility]) Dependent rubor Atherosclerosis of lower sioux artery of extremity ([facility]) Labs: Lab Results Component Value Date/Time [...] 9:40 AM EDT Office Visit Family Medicine [address] [place] [address] Courtney Restrepo MD [address] [place] [address] [place] [address] 10/10/2023 4:00 PM EDT Office Visit Nephrology, [facility] [address] [place] [address] Charla Potter MD [address] [facility] [place] [address] 10/11/2023 10:00 AM EDT Office Visit Pharmacy, [address] [place] [address] [place] [address] 10/12/2023 11:00 AM EDT Office Visit Cardiology, [facility] [address] [place] [place] [address] Frantz Herrera MD [address] [place] [address] 12/07/2023 9:20 AM EDT Office Visit Family Medicine [address] [place] [phone] Courtney Restrepo MD [address] [place] [address] [place] [address] 01/17/2024 10:00 AM EST Hospital Encounter [facility], Endoscopy Room [facility] [address] [place] [phone] Cassandra Hart MD [address] [place] [address] 01/17/2024 10:00 AM EST - 01/17/2024 10:30 AM EST Surgery [facility], Endoscopy Room [facility] [address] [place] [phone] Cassandra Hart MD [address] [place] [address] ESOPHAGOGASTRODUODENOSCOPY (EGD), FLEXIBLE, TRANSORAL, DIAGNOSTIC 01/25/2024 10:30 AM EST Imaging Vascular Lab, [address] [facility] [place] [address] 01/25/2024 11:30 AM EST Imaging Vascular Lab, [address] [place] [address] 02/01/2024 11:30 AM EST Office Visit Vascular Surgery, [address] [place] [address] Nnamdi King MD [address] [place] [address] 02/08/2024 11:00 AM EST Imaging Radiology, [address] [place] [address] 02/17/2024 10:00 AM EST Office Visit [address] [place] [phone] Marshall Romano MD [address] [place] [address] [place] [address] Scheduled Procedures Name Priority Associated Diagnoses Date/Ti me ESOPHAGOGASTRODUODENOSCOPY ( EGD), FLEXIBLE, TRANSORAL, DIAGNOSTIC 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 01/17/2024 10:00 AM EST ESOPHAGOGASTRODUODENOSCOPY ( EGD), FLEXIBLE, TRANSORAL, DIAGNOSTIC Recall Pendleton's esophagus Health Maintenance Due Date Last Done Comments DISCUSS TOBACCO CESSATION (REFER TO SMARTSET #2891) 1949 Cologuard 1994 Fecal Occult Blood Test [...] D LEVEL ONCE IN A LIFETIME-USE SMARTSET# 16607 Completed 10/16/2021, 12/27/2018 Alpha-1 Antitrypsin Discontinued HPV [...] this encounter Medical Devices Implanted Type Area Crisis Nurse Device Identifier Shelf Expiration Date Model / Serial / Lot Stent Graft Icast [id number] - [id number] - [id number] Implanted:Qty : 1 on 04/14/2022 by Nnamdi King MD at OR [facility] N/A: Mesenteric Artery GETINGE : MAQUET [id number] 02/21/2023 [id number] / [id number] / [id number] Description:implanted in SMA Stent [place] 3.0x15 Rx - [id number] Implanted:Qty : 1 on 11/12/2022 by Patrice Jose MD at CARDIAC LABS [facility] [employer] : VASCULAR [id number] 11/28/2023 [id number] / / [id number] Stent R2p Misago 6fr [id number] - [id number] Implanted:Qty : 1 on 07/18/2023 by Nnamdi King MD at OR [facility] Right: [facility] : CARDIO SYS [id number] 09/11/2023 [id number] / / [id number] documented as of this encounter Visit Diagnoses Diagnosis S/P AKA (above knee amputation), left (HCC) 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 Pendleton's esophagus documented [...] patient have Health Care Power of Clam Shucker? Yes, in chart and reviewed as current [...] Healthcare Agent Relationshi p Communication Diamond [facility] Child Health Care Repr esentative (appointed verbally by patient or by statute hierarchy) Care Teams Business Instructor Relationship Specialty Start Date End Date Courtney Restrepo MD [address] [place] [address] [place] [address] PCP - General Family Medicine 10/17/19 documented as of this encounter
--- OUTSIDE RECORDS SUMMARY | 2023-10-07 20:36 | External Medical Summary | Summary of Care ---
Author Name Unknown Organization [facility] Address [address] [place] [address] Phone [phone] Care Team Providers Care Distributor Of Directories Name Role Phone Courtney Restrepo MD Primary Care Prov ider Encounter Details Date Type Department Care Team (Late st Contact Info) Description 09/08/2023 Telephone Family Medicine [address] [phone] Eben Obregon [address] [place] [address] Allergies Active Allergy Reactions [...] edema Nitroglycerin Hypotension 12/20/2018 Penicillins Nausea/vomiting 05/17/2007 [place] Hives 10/02/2018 Propoxyphene Edema face/lips/tongue,Hiv es 06/26/2009 documented as of this encounter (statuses as of 09/09/2023) Medications Medication Sig Dispensed Refills Start Date [...] 20 MG Oral Tablet (Lasix)Indications:A therosclerosis of [place] artery of left lower extremity with rest [...] TabletIndications:S/ P AKA (above knee amputation), left ([facility]) Take 1 Tablet by mouth every 6 [...] for muscle spasm. 30 Tablet 08/24/2023 Active Clindamycin HCl 300 MG Oral Capsule Take 1 Capsule by mouth in the morning and 1 Capsule at noon and 1 Capsule before bedtime. 09/04/2023 Active Budesonide-Formotero l Fumarate 80-4.5 MCG/ACT Inhalation Aerosol (Symbicort)Indicatio ns:COPD, group D, by GOLD 2017 classification ([facility]) Inhale 2 Puffs by mouth in the morning and 2 Puffs before bedtime. 10.2 g 5 09/06/2023 Active Dulaglutide 0.75 MG/0.5ML Subcutaneous Solution Pen-injector (ClassiphixulicExaprotect) Inject 0.75 mg under the skin once a week. DxE11.9 2 mL 3 09/07/2023 Active Ferrous Sulfate 325 (65 Fe) MG Oral Tablet (Feosol)Indications: Iron deficiency anemia, unspecified iron deficiency anemia type Take 1 Tablet by mouth in the morning and 1 Tablet before bedtime. 60 Tablet 11 09/08/2023 Active documented as of this encounter (statuses as of 09/09/2023) Active Problems Problem Noted Date Diagnosed Date Ischemic rest pain of lower extremity 07/14/2023 Ulcer of right foot, limited to breakdown of ski n 07/14/2023 Dependent rubor 07/14/2023 Atherosclerosis of [place] artery of extremity Pre-ulcerative corn or callous [...] rinse after steroid. Test performed by Bibiana CREATIVE RECRUITER CPFT [place] (myocardial infarction) 02/21/2019 Bilateral [...] Reactive depression 11/17/2017 Atherosclerosis of [place] co ronary artery of [place] heart without angina pectoris 07/22/2015 Overview: Single [...] rinse after steroid. Test performed by Bibiana CREATIVE RECRUITER CPFT GENERAL OSTEOARTHROSIS BMI 32.0-32.9,adult Tobacco use disorder Hyperlipidemia with target LDL less than 70 Overview: ICD-10 update of inactive term RSD upper limb Overview: left arm Generalized anxiety disorder documented as of this encounter (statuses as of 09/09/2023) Resolved Problems Problem Noted Date Diagnosed Date [...] DIS NOS Coronary atherosclerosis of [place] coronary artery 11/24/2016 Tobacco abuse 11/17/2017 documented as of this encounter (statuses as of 09/09/2023) Immunizations Name Administration Dates Next Due COVID-19 [...] Telephone Encounter - Renetta Hall CMA - 09/09/2023 12:07 PM EDT I called patient back. Patient is aware. * Telephone Encounter - Melly Zhu PHARM Tech - 09/08/2023 12:37 PM EDT Pt returning call. ThanksMelly Community Liaison Officer [facility] ([facility]) 09/08/2023,12:37 PM * Telephone Encounter - Eben Obregon CRNP - 09/08/2023 12:24 PM EDT Attempted to call patient with no answer and full mailbox. Follow up My G sent. WBC improved from d/c labs. A1C 9.0 evaluated by MTM and medication changes made. Will repeat in 3 months. Corrected sodium level is 135. Platelets elevated could be related to suspect this is r/t recent infection vs anemia. Will start on Iron supplements and repeat CBC in 1 week after starting supplements and FOBT ordered. documented in this encounter Plan of Treatment Upcoming Encounters Date Type Department Care Team (Latest Contact Info) Description 09/27/2023 9:40 AM EDT Office Visit Family Medicine [address] [place] [phone] Courtney Restrepo MD [address] [place] [address] [place] [address] 10/10/2023 4:00 PM EDT Office Visit Nephrology, [address] [place] [address] Charla Potter MD [address] [place] [address] [place] [address] 10/11/2023 10:00 AM EDT Office Visit Pharmacy, [address] [place] [address] [place] [address] 10/12/2023 11:00 AM EDT Office Visit Cardiology, [facility] [address] [place] [address] Frantz Herrera MD [address] [facility] [place] [address] 12/07/2023 9:20 AM EDT Office Visit Family Medicine [address] [place] [phone] Courtney Restrepo MD [address] [place] [address] [place] [address] 01/17/2024 10:00 AM EST Hospital Encounter ENDO [facility], Endoscopy Room [facility] [address] [place] [phone] Cassandra Hart MD [address] [place] [address] 01/17/2024 10:00 AM EST - 01/17/2024 10:30 AM EST Surgery ENDO [facility], Endoscopy Room [facility] [address] [place] [phone] Cassandra Hart MD [address] [place] [address] ESOPHAGOGASTRODUODENOSCOPY (EGD), FLEXIBLE, TRANSORAL, DIAGNOSTIC 01/25/2024 10:30 AM EST Imaging Vascular Lab, [address] [place] [address] 01/25/2024 11:30 AM EST Imaging Vascular Lab, [address] [place] [address] 02/01/2024 11:30 AM EST Office Visit Vascular Surgery, [facility] [address] [place] [address] Nnamdi King MD [address] [place] [address] 02/08/2024 11:00 AM EST Imaging Radiology, [address] [place] [address] 02/17/2024 10:00 AM EST Office Visit Rheumatology [address] [place] [address] Marshall Romano MD [address] [place] [address] [place] [address] Scheduled Orders Name Type Priority Associated Diagnoses Orde r Schedule CBC WITH WBC DIFFERENTIAL AND ANEMIA REFLEX WORKUP Lab Routine Iron deficiency anemia, unspecified iron deficiency anemia type Expected: 09/15/2023 (Approximate), Expires: 09/07/2024 FECAL OCCULT BLOOD, EIA Lab Routine Iron deficiency anemia, unspecified iron deficiency anemia type Expected: 09/15/2023 (Approximate), Expires: 09/07/2024 Scheduled Procedures Name Priority Associated Diagnoses Date/Ti or ESOPHAGOGASTRODUODENOSCOPY ( EGD), FLEXIBLE, TRANSORAL, DIAGNOSTIC 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 01/17/2024 10:00 AM EST ESOPHAGOGASTRODUODENOSCOPY ( EGD), FLEXIBLE, TRANSORAL, DIAGNOSTIC Recall Pendleton's esophagus Health Maintenance Due Date Last Done Comments DISCUSS TOBACCO CESSATION (REFER TO SMARTSET #0301) 1949 Cologuard 1994 Fecal Occult Blood Test [...] 12/27/2018, Additional history exists HbA1c 03/07/2024 09/06/2023, 2 09/2023, 12/10/2022, Additional history exists Albumin/Creatinine Ratio [...] D LEVEL ONCE IN A LIFETIME-USE SMARTSET# 73889 Completed 10/16/2021, 12/27/2018 Alpha-1 Antitrypsin Discontinued GARDASIL-HPV [...] this encounter Medical Devices Implanted Type Area Hydraulic Engineer Device Identifier Shelf Expiration Date Model / Serial / Lot Stent Graft Icast [id number] - [id number] - [id number] Implanted:Qty : 1 on 04/14/2022 by Nnamdi King MD at [place] [facility] N/A: Mesenteric Artery GETINGE : VITOR [id number] 02/21/2023 [id number] / [id number] / [id number] Description:implanted in SMA Stent [place] 3.0x15 Rx - [id number] Implanted:Qty : 1 on 11/12/2022 by Patrice Jose MD at CARDIAC LABS [facility] MEDTRONIC : VASCULAR [id number] 11/28/2023 [id number] / / [id number] 2 Stent R2p Misago 6fr [id number] - [id number] Implanted:Qty : 1 on 07/18/2023 by Nnamdi King MD at OR [facility] Right: [facility] : CARDIO SYS [id number] 09/11/2023 [id number] / / [id number] documented as of this encounter Visit Diagnoses Diagnosis Iron deficiency anemia, unspecified iron deficiency anemia type- Primary 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 Pendleton's esophagus [...] the patient have Health Care Power of Case Packer And Sealer? Yes, in chart and reviewed as current [...] patient or by statute hierarchy) Care Teams Distributor Of Directories Relationship Specialty Start Date End Date Courtney Restrepo MD [address] [place] [address] [place] [address] PCP - General Family Medicine 10/17/19 documented as of this encounter
--- OUTSIDE RECORDS SUMMARY | 2023-10-07 20:36 | External Medical Summary | Summary of Care ---
Author Name Unknown Organization [facility] Address [address] Care Team Providers Care Pecan Picker Name Role Phone Courtney Restrepo MD Primary Care Prov ider Reason for Visit * Reason Onset Date Comments Medication Question 09/09/2023 Encounter Details Date Type Department Care Team (Late st Contact Info) Description 09/09/2023 Telephone Pharmacy, [facility] [address] [facility] [place] [phone] [place] [address] Medication Question Allergies [...] edema Nitroglycerin Hypotension 12/20/2018 Penicillins Nausea/vomiting 05/17/2007 [place] Hives 10/02/2018 Propoxyphene Edema face/lips/tongue,Hiv es 06/26/2009 [...] 20 MG Oral Tablet (Lasix)Indications:A therosclerosis of [place] artery of left lower extremity with rest [...] AKA (above knee amputation), left ([facility]) Take 1 Tablet by mouth every 6 [...] D, by GOLD 2017 classification ([facility]) Inhale 2 Puffs by mouth in the morning and 2 Puffs before bedtime. 10.2 g 5 09/06/2023 Active Dulaglutide 0.75 MG/0.5ML Subcutaneous Solution Pen-injector (TrulicWindsor Circle) Inject 0.75 mg under the skin once [...] n 07/14/2023 Dependent rubor 07/14/2023 Atherosclerosis of [place] artery of extremity Pre-ulcerative corn or callous [...] rinse after steroid. Test performed by Bibiana CEMENT FINISHING SUPERVISOR CPFT Old [place] (myocardial infarction) 02/21/2019 Bilateral [...] osteoporosis 07/03/2018 Reactive depression 11/17/2017 Atherosclerosis of [place] co ronary artery of [place] heart without angina pectoris 07/22/2015 Overview: [...] rinse after steroid. Test performed by Bibiana CEMENT FINISHING SUPERVISOR CPFT GENERAL OSTEOARTHROSIS BMI 32.0-32.9,adult Tobacco [...] ISCHEMIC HRT DIS NOS Coronary atherosclerosis of [place] coronary artery 11/24/2016 Tobacco abuse 11/17/2017 [...] Miscellaneous Notes * Telephone Encounter - Zenia Goldberg, [facility] - 09/09/2023 11:09 AM EDT Patient Phone [...] Zenia Goldberg RPh, PharmD Clinical Pharmacist - Engineering Mathematician Medication Therapy [facility] 09/09/2023, 11:11 AM [phone] * Telephone Encounter - Godwin Dela Cruz CPhT - 09/09/2023 10:37 AM EDT Caller's name: Dee Preferred call back number(OFFICE NUMBER FOR ): [phone] Reason for call: Medication question: Pt caregiver calling on RX Trulicity, says has vomiting and abdominal bruising, requesting to speak to MTM Thank you, Godwin Dela Cruz CPhT Technical Maintenance Specialist [employer] [facility] 09/09/2023,10:37 AM documented in this encounter Plan of Treatment Upcoming Encounters Date Type Department Care Team (Latest Contact Info) Description 09/27/2023 9:40 AM EDT Office Visit Family Medicine [address] [place] [phone] Courtney Restrepo MD [address] [place] [address] [place] [address] 10/10/2023 4:00 PM EDT Office Visit Nephrology, [address] [place] [address] Charla Potter MD [address] [place] [address] [place] [address] 10/11/2023 10:00 AM EDT Office Visit Pharmacy, [address] [place] [address] [place] [address] 10/12/2023 11:00 AM EDT Office Visit Cardiology, [facility] [place] [address] Frantz Herrera MD [address] [place], [place] [address] [address] 12/07/2023 9:20 AM EDT Office Visit Family Medicine [address] [place] [phone] Courtney Restrepo MD [address] [place] [address] [place] [address] 01/17/2024 10:00 AM EST Hospital Encounter ENDO [facility], Endoscopy Room [facility] [address] [place] [phone] Cassandra Hart MD [address] [place] [address] 01/17/2024 10:00 AM EST - 01/17/2024 10:30 AM EST Surgery ENDO OSS, Endoscopy Room [facility] [address] [place] [phone] Cassandra Hart MD [address] [place] [address] ESOPHAGOGASTRODUODENOSCOPY (EGD), FLEXIBLE, TRANSORAL, DIAGNOSTIC 01/25/2024 10:30 AM EST Imaging Vascular Lab, [address] [facility] [address] 01/25/2024 11:30 AM EST Imaging Vascular Lab, [address] 132 [facility] [place] [address] 02/01/2024 11:30 AM EST Office Visit Vascular Surgery, [address] [place] [address] Nnamdi King MD [address] [place] [address] 02/08/2024 11:00 AM EST Imaging Radiology, [address] [place] [address] 02/17/2024 10:00 AM EST Office Visit [address] [place] [phone] Marshall Romano MD [address] [place] [address] [place] [address] Scheduled Procedures Name Priority Associated Diagnoses Date/Ti ar ESOPHAGOGASTRODUODENOSCOPY ( EGD), FLEXIBLE, TRANSORAL, DIAGNOSTIC Pendleton's [...] 06/03/2021, Additional history exists Mammogram 05/19/2024 05/20/2023, 030 10/2023, 03/19/2021, Additional history exists Depression Monitoring [...] D LEVEL ONCE IN A LIFETIME-USE SMARTSET# 15587 Completed 10/16/2021, 12/27/2018 Alpha-1 Antitrypsin Discontinued GARDASIL-HPV [...] this encounter Medical Devices Implanted Type Area Agriscience Technology Instructor Device Identifier Shelf Expiration Date Model / Serial / Lot Stent Graft Icast [id number] - [id number] - [id number] Implanted:Qty : 1 on 04/14/2022 by Nnamdi [place] [facility] N/A: Mesenteric Artery GETINGE : MAQUET [id number] 02/21/2023 [id number] / [id number] / [id number] Description:implanted in SMA Stent [place] 3.0x15 Rx - [id number] Implanted:Qty : 1 on 11/12/2022 by Patrice Jose MD [place] [facility] [place] [facility] MEDTRON[employer] : VASCULAR [id number] 11/28/2023 [id number] / / [id number] 2 Stent R2p Misago 6fr [id number] - [id number] Implanted:Qty : 1 on 07/18/2023 by Nnamdi King MD [place] [facility] Right: S[facility] MED[facility] : CARDIO SYS [id number] 09/11/2023 [id number] / / [id number] documented as of this encounter Advance Directives [...] the patient have Health Care Power of Texturing Machine Fixer? Yes, in chart and reviewed as current [...] Agents on File Name Relationship Healthcare Agent [facility] Diamond Braxton Adult Child Health Care Repr esentative (appointed verbally by patient or by statute hierarchy) Care Teams Pecan Picker Relationship Specialty Start Date End Date Courtney Restrepo MD [address] [place] [address] [place] [address] PCP - General Family Medicine 10/17/19 documented as of this encounter
--- OUTSIDE RECORDS SUMMARY | 2023-10-07 20:36 | External Medical Summary | Summary of Care ---
Author Name Unknown Organization [facility] Address [address] [place] [address] Phone [phone] Care Team Providers Care Director Economic Name Role Phone Courtney Restrepo MD Primary Care Prov ider Encounter Details Date Type Department Care Team (Late st Contact Info) Description 09/08/2023 Telephone Family Medicine [address] [phone] Eben Obregon [address] [place] [address] Allergies Active Allergy [...] edema Nitroglycerin Hypotension 12/20/2018 Penicillins Nausea/vomiting 05/17/2007 [place] Hives 10/02/2018 Propoxyphene Edema face/lips/tongue,Hiv es 06/26/2009 documented as of this encounter (statuses as of 09/08/2023) Medications Medication Sig Dispensed Refills Start Date [...] 20 MG Oral Tablet (Lasix)Indications:A therosclerosis of [place] artery of left lower extremity with rest [...] TabletIndications:S/ P AKA (above knee amputation), left ([facility]) Take 1 Tablet by mouth [...] ns:COPD, group D, by GOLD 2017 classification ([facility]) Inhale 2 Puffs by mouth in the morning and 2 Puffs before bedtime. 10.2 g 5 09/06/2023 Active Dulaglutide 0.75 MG/0.5ML Subcutaneous Solution Pen-injector (Connect HQulicNellOne [employer]) Inject 0.75 mg under the skin once a week. DxE11.9 2 mL 3 09/07/2023 Active Ferrous Sulfate 325 (65 Fe) MG Oral Tablet (Feosol)Indications: Iron deficiency anemia, unspecified iron deficiency anemia type Take 1 Tablet by mouth in the morning and 1 Tablet before bedtime. 60 Tablet 11 09/08/2023 Active documented as of this encounter (statuses as of 09/08/2023) Active Problems Problem Noted Date Diagnosed Date Ischemic rest pain of lower extremity 07/14/2023 Ulcer of right foot, limited to breakdown of ski n 07/14/2023 Dependent rubor 07/14/2023 Atherosclerosis of [place] artery of extremity Pre-ulcerative corn or callous [...] rinse after steroid. Test performed by Bibiana WIPER BLENDER CPFT Old [place] (myocardial infarction) 02/21/2019 Bilateral [...] osteoporosis 07/03/2018 Reactive depression 11/17/2017 Atherosclerosis of [place] co ronary artery of [place] heart without angina pectoris 07/22/2015 Overview: Single [...] rinse after steroid. Test performed by Bibiana WIPER BLENDER CPFT GENERAL OSTEOARTHROSIS BMI 32.0-32.9,adult Tobacco use disorder Hyperlipidemia with target LDL less than 70 Overview: ICD-10 update of inactive term RSD upper limb Overview: left arm Generalized anxiety disorder documented as of this encounter (statuses as of 09/08/2023) Resolved Problems Problem Noted Date Diagnosed Date [...] ISCHEMIC HRT DIS NOS Coronary atherosclerosis of [place] coronary artery 11/24/2016 Tobacco abuse 11/17/2017 documented as of this encounter (statuses as of 09/08/2023) Immunizations Name Administration Dates Next Due COVID-19 [...] Miscellaneous Notes * Telephone Encounter - Melly Zhu, surgical scrub technician - 09/08/2023 12:37 PM EDT Pt returning call. Thanks, Melly Zhu Homicide Squad Captain [facility] ([facility]) 09/08/2023,12:37 PM * Telephone Encounter - Eben Obregon CRNP - 09/08/2023 12:24 PM EDT Attempted to call patient with no answer and full mailbox. Follow up My G sent. WBC improved from d/c labs. A1C 9.0 evaluated by [facility] and medication changes made. Will repeat in [...] 9:40 AM EDT Office Visit Family Medicine [address] [place] [phone] Courtney Restrepo MD [address] [place] [address] [place] [address] 10/10/2023 4:00 PM EDT Office Visit Nephrology, [address] [place] [address] Charla Potter MD [address] [place] [address] [place] [address] 10/11/2023 10:00 AM EDT Office Visit Pharmacy, [address] [place] [address] [place] [address] 10/12/2023 11:00 AM EDT Office Visit Cardiology, [address] [place] [address] Frantz Herrera MD [address] [facility] [place] [address] 12/07/2023 9:20 AM EDT Office Visit [address] [place] [phone] Courtney Restrepo MD [address] [place] [address] [place] [address] 01/17/2024 10:00 AM EST Hospital Encounter ENDO [facility], Endoscopy Room [facility] [address] [place] [phone] Cassandra Hart MD [address] [place] [address] 01/17/2024 10:00 AM EST - 01/17/2024 10:30 AM EST Surgery ENDO OSS, Endoscopy Room [facility] [address] [place] [phone] Cassandra Hart MD [address] [place] [address] ESOPHAGOGASTRODUODENOSCOPY (EGD), FLEXIBLE, TRANSORAL, DIAGNOSTIC 01/25/2024 10:30 AM EST Imaging Vascular Lab, [facility] 132 [facility] [place] [address] 01/25/2024 11:30 AM EST Imaging Vascular Lab, [facility] 132 [facility] [place] [address] 02/01/2024 11:30 AM EST Office Visit Vascular Surgery, [facility] [address] [place] [address] Nnamdi King MD [address] [facility] [place], [place] [address] 02/08/2024 11:00 AM EST Imaging Radiology, [address] [place] [address] 02/17/2024 10:00 AM EST Office Visit Rheumatology [address] [place] [phone] Marshall Romano MD [facility] [place] [address] Scheduled Orders Name Type Priority Associated Diagnoses Orde r Schedule CBC WITH WBC DIFFERENTIAL AND ANEMIA REFLEX WORKUP Lab Routine Iron deficiency anemia, unspecified iron deficiency anemia type Expected: 09/15/2023 (Approximate), Expires: 09/07/2024 FECAL OCCULT BLOOD, EIA Lab Routine Iron deficiency anemia, unspecified iron deficiency anemia type Expected: 09/15/2023 (Approximate), Expires: 09/07/2024 Scheduled Procedures Name Priority Associated Diagnoses Date/Ti nd ESOPHAGOGASTRODUODENOSCOPY ( EGD), FLEXIBLE, TRANSORAL, DIAGNOSTIC 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 01/17/2024 10:00 AM EST ESOPHAGOGASTRODUODENOSCOPY ( EGD), FLEXIBLE, TRANSORAL, DIAGNOSTIC Recall Pendleton's esophagus Health Maintenance Due Date Last Done Comments DISCUSS TOBACCO CESSATION (REFER TO SMARTSET #5204) 1950 Cologuard 1994 Fecal Occult Blood Test [...] D LEVEL ONCE IN A LIFETIME-USE SMARTSET# 16475 Completed 10/16/2021, 12/27/2018 Alpha-1 Antitrypsin Discontinued GARDASIL-HPV [...] this encounter Medical Devices Implanted Type Area Fuse Cup Expander Device Identifier Shelf Expiration Date Model / Serial / Lot Stent Graft Icast [id number] - [id number] - [id number] Implanted:Qty : 1 on 04/14/2022 by Nnamdi King [place] [facility] [place]A: Mesenteric Artery GETINGE : VITOR [id number] 02/21/2023 [id number] / [id number] / [id number] Description:implanted in SMA Stent [place] 3.0x15 Rx - [id number] Implanted:Qty : 1 on 11/12/2022 by Patrice Jose MD at [place] [facility] MEDTRON[employer] : VASCULAR [id number] 11/28/2023 [id number] / / [id number] Stent R2p Misago 6fr [id number] - [id number] Implanted:Qty : 1 on 07/18/2023 by Nnamdi King MD [place] [facility] Right: SFA [employer] [facility] : CARDIO SYS [phone] 09/11/2023 [id number] / / [id number] documented as of this encounter Visit Diagnoses [...] the patient have Health Care Power of Parts Product Analyst? Yes, in chart and reviewed as [...] or by statute hierarchy) Care Teams Director Economic Relationship Specialty Start Date End Date Courtney Restrepo MD [address] [place] [address] [place] [address] PCP - General Family Medicine 10/17/19 documented as of this encounter
--- OUTSIDE RECORDS SUMMARY | 2023-10-07 20:36 | External Medical Summary | Summary of Care ---
Author Name Unknown Organization [facility] Address [address] [place] [address] Phone [phone] Care Team Providers Care Etcher Aircraft Name Role Phone Courtney Restrepo MD Primary Care Prov ider Reason for Visit * Reason Onset Date Comments Pre Cert/Prior Auth 09/08/2023 Encounter Details Date Type Department Care Team (Late st Contact Info) Description 09/08/2023 Telephone Centralized Clinical Pharmacy Services, Shantell Dennis [address] [place] [address] [place] [address] [place] [address] Pre Cert/Prior Auth Allergies Active Allergy Reactions Criticality Noted Date [...] edema Nitroglycerin Hypotension 12/20/2018 Penicillins Nausea/vomiting 05/17/2007 [place] Hives 10/02/2018 Propoxyphene Edema face/lips/tongue,Hiv es 06/26/2009 [...] 20 MG Oral Tablet (Lasix)Indications:A therosclerosis of [place] artery of left lower extremity with rest [...] TabletIndications:S/ P AKA (above knee amputation), left ([facility]) Take 1 Tablet by mouth [...] ns:COPD, group D, by GOLD 2017 classification ([facility]) Inhale 2 Puffs by mouth in the morning and 2 Puffs before bedtime. 10.2 g 5 09/06/2023 Active Dulaglutide 0.75 MG/0.5ML Subcutaneous Solution Pen-injector ([facility]) Inject 0.75 mg under the skin once a week. DxE11.9 2 mL 3 09/07/2023 Active documented as of this encounter (statuses as of 09/08/2023) Active Problems Problem Noted Date Diagnosed Date Ischemic rest pain of lower extremity 07/14/2023 Ulcer of right foot, limited to breakdown of ski n 07/14/2023 Dependent rubor 07/14/2023 Atherosclerosis of [place] artery of extremity Pre-ulcerative corn or callous [...] rinse after steroid. Test performed by Bibiana DIPPER CLOCK AND WATCH HANDS CPFT [place] (myocardial infarction) 02/21/2019 Bilateral [...] osteoporosis 07/03/2018 Reactive depression 11/17/2017 Atherosclerosis of [place] co ronary artery of [place] heart without angina pectoris 07/22/2015 Overview: Single [...] rinse after steroid. Test performed by Bibiana DIPPER CLOCK AND WATCH HANDS CPFT GENERAL OSTEOARTHROSIS BMI 32.0-32.9,adult Tobacco use [...] ISCHEMIC HRT DIS NOS Coronary atherosclerosis of [place] coronary artery 11/24/2016 Tobacco abuse 11/17/2017 documented [...] Notes * Telephone Encounter - Zenia Goldberg, [facility] - 09/08/2023 10:28 AM EDT Called and spoke to [facility]. Confirmed PA needed under [employer]. Submitted via [employer]. Prior Auth (EOC) ID: [id number] Drug/Service Name: TRULICITY 0.75 MG/0.5 ML PEN Patient: CARLOTTA WOODARD Date Requested: 09/08/2023 10:26:33 AM MemberID: [id number] : 1950 Zenia Goldberg RP, PharmD Clinical Pharmacist - Health Insurance Sales Agent [facility] 09/08/2023, 10:29 AM [phone] * Telephone Encounter - Lexus Oliveira PHARM Tech - 09/08/2023 9:53 AM EDT Caller's name: Carlotta Preferred call back number(OFFICE NUMBER FOR ): [phone] Reason for call: Patient called in and said a prior auth is needed for her Trulicity. Please advise. Thank you, Lexus Oliveira Slimer I Centralized [facility] Pharmacy Services ([facility]) 09/08/2023, 9:54 AM documented in this encounter Plan of Treatment Upcoming Encounters Date Type Department Care Team (Latest Contact Info) Description 09/27/2023 9:40 AM EDT Office Visit Family Medicine [address] [place] [address] Courtney Restrepo MD [address] [place] [address] [place] [address] 10/10/2023 4:00 PM EDT Office Visit Nephrology, [address] [place] [address] Charla Potter MD [address] [place] [address] [place] [address] 10/11/2023 10:00 AM EDT Office Visit Pharmacy, [address] [place] [address] [place] [address] 10/12/2023 11:00 AM EDT Office Visit Cardiology, [facility] [address] [place] [address] Frantz Herrera MD [address] [facility], [place] [address] 12/07/2023 9:20 AM EDT Office Visit Family Medicine [address] [place] [address] Courtney Restrepo MD [address] [place] [address] [place] [address] 01/17/2024 10:00 AM EST Hospital Encounter ENDO OSS, Endoscopy Room [facility] [address] [place] [phone] Cassandra Hart MD [address] [place] [address] 01/17/2024 10:00 AM EST - 01/17/2024 10:30 AM EST Surgery ENDO OSS, Endoscopy Room [facility] [address] [place] [phone] Cassandra Hart MD [address] [place] [address] ESOPHAGOGASTRODUODENOSCOPY (EGD), FLEXIBLE, TRANSORAL, DIAGNOSTIC 01/25/2024 10:30 AM EST Imaging Vascular Lab, [facility], [place] [address] [place] [address] 01/25/2024 11:30 AM EST Imaging Vascular Lab, [facility], [place] [address] [place] [address] 02/01/2024 11:30 AM EST Office Visit Vascular Surgery, [facility] [address] [place] [address] Nnamdi King MD [address] [place] [address] 02/08/2024 11:00 AM EST Imaging Radiology, [address] [address] 02/17/2024 10:00 AM EST Office Visit Rheumatology [address] [place] [address] Marshall Romano MD [address] [place] [address] Scheduled Procedures Name Priority Associated Diagnoses Date/Ti [...] D LEVEL ONCE IN A LIFETIME-USE SMARTSET# 12656 Completed 10/16/2021, 12/27/2018 Alpha-1 Antitrypsin Discontinued G[facility]-HPV [...] this encounter Medical Devices Implanted Type Area Clinic Manager Device Identifier Shelf Expiration Date Model / Serial / Lot Stent Graft Icast [id number] - [id number] - [id number] Implanted:Qty : 1 on 04/14/2022 by Nnamdi King MD at [place] [facility] N/A: Mesenteric Artery GETINGE : VITOR [id number] 02/21/2023 [id number] / [id number] / [id number] Description:implanted in SMA Stent [place] 3.0x15 Rx - [id number] Implanted:Qty : 1 on 11/12/2022 by Patrice Jose MD at CARDIAC LABS [facility] MEDTRONIC : VASCULAR [id number] 11/28/2023 [id number] / / [id number] Stent R2p Misago 6fr [id number] - [id number] Implanted:Qty : 1 on 07/18/2023 by Nnamdi King MD at OR [facility] Right: [employer] : CARDIO SYS [phone] 09/11/2023 [id number] / / [id number] documented as of this encounter Advance Directives [...] the patient have Health Care Power of Uranium Processing Supervisor? Yes, in chart and reviewed as current * Limited Code Date Activated Date Inactivated Comments 01/08/2023 3:00 AM 01/23/2023 8:30 PM This orde r reflects the patients wishes [...] patient or by statute hierarchy) Care Teams Etcher Aircraft Relationship Specialty Start Date End Date Courtney Restrepo MD [address] [place] [address] [place] [address] PCP - General Family Medicine 10/17/19 documented as of this encounter
--- OUTSIDE RECORDS SUMMARY | 2023-10-07 20:36 | External Medical Summary | Summary of Care ---
Author Name Unknown Organization [facility] Address [address] [place] [address] Phone [phone] Care Team Providers Care Tester Operator Name Role Phone Courtney Restrepo MD Primary Care Prov ider Reason for Visit * Reason Onset Date Comments Home Health 09/09/2023 Encounter Details Date Type Department Care Team (Late st Contact Info) Description 09/09/2023 Telephone Family [address] [phone] Courtney Restrepo MD [address] [place] [address] [place] [address] Home Health Allergies Active Allergy Reactions [...] edema Nitroglycerin Hypotension 12/20/2018 Penicillins Nausea/vomiting 05/17/2007 [place] Hives 10/02/2018 Propoxyphene Edema face/lips/tongue,Hiv es 06/26/2009 documented as of this encounter (statuses as of 09/12/2023) Medications Medication Sig Dispensed Refills Start Date [...] 20 MG Oral Tablet (Lasix)Indications:A therosclerosis of [place] artery of left lower extremity with rest [...] P AKA (above knee amputation), left ([facility]) Take 1 Tablet by mouth every 6 [...] 2017 classification ([facility]) Inhale 2 Puffs by mouth in the morning and 2 Puffs before bedtime. 10.2 g 5 09/06/2023 Active Dulaglutide 0.75 MG/0.5ML Subcutaneous Solution Pen-injector ([facility]) Inject 0.75 mg under the skin once a week. DxE11.9 2 mL 3 09/07/2023 Active Ferrous Sulfate 325 (65 Fe) MG Oral Tablet (Feosol)Indications: Iron deficiency anemia, unspecified iron deficiency anemia type Take 1 Tablet by mouth in the morning and 1 Tablet before bedtime. 60 Tablet 11 09/08/2023 Active documented as of this encounter (statuses as of 09/12/2023) Active Problems Problem Noted Date Diagnosed Date Ischemic rest pain of lower extremity 07/14/2023 Ulcer of right foot, limited to breakdown of ski n 07/14/2023 Dependent rubor 07/14/2023 Atherosclerosis of [place] artery of extremity Pre-ulcerative corn or callous [...] rinse after steroid. Test performed by Bibiana INTERIOR DESIGN PROFESSIONAL CPFT Old [place] (myocardial infarction) 02/21/2019 Bilateral [...] osteoporosis 07/03/2018 Reactive depression 11/17/2017 Atherosclerosis of [place] co ronary artery of [place] heart without angina pectoris 07/22/2015 Overview: Single [...] rinse after steroid. Test performed by Bibiana INTERIOR DESIGN PROFESSIONAL CPFT GENERAL OSTEOARTHROSIS BMI 32.0-32.9,adult Tobacco use disorder Hyperlipidemia with target LDL less than 70 Overview: ICD-10 update of inactive term RSD upper limb Overview: left arm Generalized anxiety disorder documented as of this encounter (statuses as of 09/12/2023) Resolved Problems Problem Noted Date Diagnosed Date [...] ISCHEMIC HRT DIS NOS Coronary atherosclerosis of [place] coronary artery 11/24/2016 Tobacco abuse 11/17/2017 documented as of this encounter (statuses as of 09/12/2023) Immunizations Name Administration Dates Next Due COVID-19 [...] ages 0-17 years) Not on file 07/01/2023 Are you homeless or worried that [...] Telephone Encounter - Crystal Hutson LPN - 09/09/2023 4:05 PM EDT Admission/Start of Care Admission/Start of Care: Stacy RN, Calling from: Vasyl Patient was Admitted to: [facility] , for: pneumonia, sepsis from 08/29 to 09/03 Referral ordered by: [facility] Referral received for: Long Term, PT, and OT Planned start of care date:Yes, Date 09/07/23 Start of care completed on: 09/07/23 Report/Concerns of: none Symptoms: none Vitals: Are from Tuesday09/07/23 T 98.6 P 68 RR 20 BP 103/64 SP O2 93 Lung sounds wheezing upper lobes Weight 169.5 Blood sugar patient uses dexcom Narrative: [facility]. Saw and opened the patient on Tuesday. 09/07/23. Stacyhavalentine been sick with the stomach flu and didn't call us till today 09/09/23. Informed Stacy patient called in today and was told to go to ER for vomiting, abdominal pain and chills. Verbalized understanding. Next Nursing visit(s) on next Week, Tuesday They will call with any updates or additional concerns from the upcoming visit. Last Office Visit: 09/06/2023 Has patient been scheduled or seen in the office for a follow up visit: Yes- on09/27/23 Advised that orders will be signed by Dr. Courtney Morejon and to fax to the office for signature. Call back Stacy with advice or orders at [phone] Please fax orders to [phone] documented in this encounter Plan of Treatment Upcoming Encounters Date Type Department Care Team (Latest Contact Info) Description 09/27/2023 9:40 AM EDT Office Visit Family Medicine [address] [place] [phone] Courtney Restrepo MD [address] [place] [address] [place] [address] 10/10/2023 4:00 PM EDT Office Visit Nephrology[address] [place] [address] Charla Potter MD [address] [place] [address] 10/11/2023 10:00 AM EDT Office Visit Pharmacy, [address] [place] [address] [place] [address] 10/12/2023 11:00 AM EDT Office Visit Cardiology, [facility] [address] [place] [address] Frantz Herrera MD [address] [place] [address] 12/07/2023 9:20 AM EDT Office Visit Family Medicine [address] [place] [address] Courtney Restrepo MD [address] [place] [address] [place] [address] 01/17/2024 10:00 AM EST Hospital Encounter ENDO OSS, Endoscopy Room [facility] [address] [place] [phone] Cassandra Hart MD [address] [place] [address] 01/17/2024 10:00 AM EST - 01/17/2024 10:30 AM EST Surgery ENDO OSS, Endoscopy Room [facility] [address] [place] [phone] Cassandra Hart MD [address] [place] [address] ESOPHAGOGASTRODUODENOSCOPY (EGD), FLEXIBLE, TRANSORAL, DIAGNOSTIC 01/25/2024 10:30 AM EST Imaging Vascular Lab, [address] [facility] [place] [address] 01/25/2024 11:30 AM EST Imaging Vascular Lab, [address] [facility] [place] [address] 02/01/2024 11:30 AM EST Office Visit Vascular Surgery, [address] [place] [address] Nnamdi King MD [address] [place] [address] 02/08/2024 11:00 AM EST Imaging Radiology, [place] [address] [employer] [place] [address] 02/17/2024 10:00 AM EST Office Visit Rheumatology [address] [place] [phone] Marshall Romano MD [facility] [place] [address] Scheduled Procedures Name Priority Associated Diagnoses Date/Ti [...] D LEVEL ONCE IN A LIFETIME-USE SMARTSET# 66136 Completed 10/16/2021, 12/27/2018 Alpha-1 Antitrypsin Discontinued GARDASIL-HPV [...] this encounter Medical Devices Implanted Type Area Paste Worker Device Identifier Shelf Expiration Date Model / Serial / Lot Stent Graft Icast [id number] - [id number] - [id number] Implanted:Qty : 1 on 04/14/2022 by Nnamdi King MD at OR [facility] N/A: Mesenteric Artery GETINGE : VITOR [id number] 02/21/2023 [id number] / [id number] / [id number] Description:implanted in SMA Stent [place] 3.0x15 Rx - [id number] Implanted:Qty : 1 on 11/12/2022 by Patrice Jose MD at CARDIAC LABS [facility] [employer] : VASCULAR [id number] 11/28/2023 [id number] / / [id number] Stent R2p Misago 6fr [id number] - [id number] Implanted:Qty : 1 on 07/18/2023 by Nnamdi King MD at OR [facility] Right: [facility] MED[facility] : CARDIO SYS [id number] 09/11/2023 [id number] / / [id number] documented as of this encounter Advance Directives [...] the patient have Health Care Power of Corporate Real Estate Manager? Yes, in chart and reviewed as [...] patient or by statute hierarchy) Care Teams Tester Operator Relationship Specialty Start Date End Date Courtney Restrepo MD [address] [place] [address] [place] [address] PCP - General Family Medicine 10/17/19 documented as of this encounter
--- OUTSIDE RECORDS SUMMARY | 2023-10-07 20:36 | External Medical Summary | Summary of Care ---
Author Name Unknown Organization [facility] Address [address] [place] [address] Phone [phone] Care Team Providers Care Pet Store Merchandiser Name Role Phone Courtney Restrepo MD Primary Care Prov ider Reason for Visit * Reason Onset Date Comments Medication Refill 09/12/2023 Encounter Details Date Type Department Care Team (Late st Contact Info) Description 09/12/[address] [phone] Courtney Restrepo MD [address] [place], [place] [address] [phone] Allergies Active Allergy Reactions Criticality Noted Date [...] edema Nitroglycerin Hypotension 12/20/2018 Penicillins Nausea/vomiting 05/17/2007 [place] Hives 10/02/2018 Propoxyphene Edema face/lips/tongue,Hiv es 06/26/2009 [...] 20 MG Oral Tablet (Lasix)Indications: Atherosclerosis of [place] artery of left lower extremity with rest [...] /P AKA (above knee amputation), left ([facility] [...] Active Dulaglutide 0.75 MG/0.5ML Subcutaneous Solution Pen-injector ([facility]) Inject 0.75 mg under the skin once [...] n 07/14/2023 Dependent rubor 07/14/2023 Atherosclerosis of [place] artery of extremity Pre-ulcerative corn or callous [...] after steroid. Test performed by Bibiana SUPERVISOR BIT AND SHANK DEPARTMENT CPFT Old [place] (myocardial infarction) 02/21/2019 Bilateral [...] osteoporosis 07/03/2018 Reactive depression 11/17/2017 Atherosclerosis of [place] co ronary artery of [place] heart without angina pectoris 07/22/2015 Overview: Single [...] after steroid. Test performed by Bibiana SUPERVISOR BIT AND SHANK DEPARTMENT CPFT GENERAL OSTEOARTHROSIS BMI 32.0-32.9,adult Tobacco [...] ISCHEMIC HRT DIS NOS Coronary atherosclerosis of [place] coronary artery 11/24/2016 Tobacco abuse 11/17/2017 documented [...] Telephone Encounter - Courtney Restrepo MD - 09/12/2023 11:42 AM EDTSigned Prescriptions: Disp Refills Baclofen 5 MG Oral Tablet (Lioresal) 30 Tab*0 Sig: Take 1 Tablet by mouth in the morning and 1 Tablet at noon and 1 Tablet before bedtime. As needed for muscle spasm. Authorizing Provider: COURTNEY RESTREPO * Telephone Encounter - Leeanne Bautista LPN - 09/12/2023 10:42 AM EDT Pending Prescriptions: Disp Refills Baclofen 5 MG Oral Tablet (Lioresal) 30 Tab*0 Sig: Take 1 Tablet by mouth in the morning and 1 Tablet at noon and 1 Tablet before bedtime. As needed for muscle spasm. Last Visit: 09/06/2023 (in office), 11/29/2022 (telemedicine) Next Visit: 09/27/2023 Last date the medication was ordered: 08/24/23 Patient Active Problem List Diagnosis Moderate persistent asthma without complication GENERAL OSTEOARTHROSIS Cerebrovascular disease, arteriosclerotic, post-stroke ADVANCE DIRECTIVE INFORMATION BMI 32.0-32.9,adult Tobacco use disorder Hyperlipidemia with target LDL less than 70 RSD upper limb Type 2 diabetes mellitus with hemoglobin A1c goal of less than 8.0% ([facility]) Controlled substance agreement signed Generalized anxiety disorder Atherosclerosis of [place] coronary artery of [place] heart without angina pectoris Reactive depression Senile osteoporosis PAD (peripheral artery disease) ([facility]) Iron deficiency anemia due to chronic blood loss 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 Chronic superficial gastritis with bleeding Gastrointestinal hemorrhage with melena Lung nodules Moderate mitral regurgitation Old ID (myocardial infarction) Bilateral carotid artery stenosis DM [...] [facility]) Chronic ischemic heart disease Advanced directives, counseling/discussion Type 2 diabetes mellitus with peripheral artery disease ([facility]) 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- dominant side ([facility]) S/P femoral-femoral bypass surgery History of cardiac arrest Lactic acidosis Transaminitis Encephalopathy acute Pathological fracture of vertebra due to osteoporosis with routine healing, subsequent encounter S/P AKA (above knee amputation), left ([facility]) Status post below-knee amputation of left lower extremity ([facility]) Pre-ulcerative corn or callous Ischemic rest pain of lower extremity Ulcer of right foot, limited to breakdown of skin ([facility]) Dependent rubor Atherosclerosis of [place] artery of extremity ([facility]) Labs: Lab Results Component Value Date/Time CREATININE [...] 9:40 AM EDT Office Visit Family Medicine [address] [place] [phone] Courtney Restrepo MD [address] [place] [address] [place] [address] 10/10/2023 4:00 PM EDT Office Visit Nephrology, [facility] [address] [facility] [address] Charla Potter MD [address] [facility] [place] [address] 10/11/2023 10:00 AM EDT Office Visit Pharmacy, [address] [place] [address] [place] [address] 10/12/2023 11:00 AM EDT Office Visit Cardiology, [facility] [address] [place] [address] Frantz Herrera MD [address] [place] [address] 12/07/2023 9:20 AM EDT Office Visit Family Medicine [address] [place] [address] Courtney Restrepo MD [address] [place] [address] [place] [address] 01/17/2024 10:00 AM EST Hospital Encounter ENDO OSSC, Endoscopy Room [facility] [address] [place] [phone] Cassandra Hart MD [address] [place] [address] 01/17/2024 10:00 AM EST - 01/17/2024 10:30 AM EST Surgery ENDO OSSC, Endoscopy Room [facility] [address] [place] [phone] Cassandra Hart MD [address] [place] [address] ESOPHAGOGASTRODUODENOSCOPY (EGD), FLEXIBLE, TRANSORAL, DIAGNOSTIC 01/25/2024 10:30 AM EST Imaging Vascular Lab, [address] 132 [facility] [place] [address] 01/25/2024 11:30 AM EST Imaging Vascular Lab, [address] [place] [address] 02/01/2024 11:30 AM EST Office Visit Vascular Surgery, [address] [place] [address] Nnamdi King MD [address] [place] [address] 02/08/2024 11:00 AM EST Imaging Radiology, [address] [place] [address] 02/17/2024 10:00 AM EST Office Visit Rheumatology [address] [place] [phone] Marshall Romano MD [facility] [place] [address] Scheduled Procedures Name Priority Associated Diagnoses Date/Ti me ESOPHAGOGASTRODUODENOSCOPY ( EGD), FLEXIBLE, TRANSORAL, DIAGNOSTIC 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 01/17/2024 10:00 AM EST ESOPHAGOGASTRODUODENOSCOPY ( EGD), FLEXIBLE, TRANSORAL, DIAGNOSTIC Recall Pendleton's esophagus Health Maintenance Due Date Last Done Comments DISCUSS TOBACCO CESSATION (REFER TO SMARTSET #9721) 1950 Cologuard 1994 Fecal Occult Blood Test [...] D LEVEL ONCE IN A LIFETIME-USE SMARTSET# 23763 Completed 10/16/2021, 12/27/2018 Alpha-1 Antitrypsin Discontinued GARDASIL-HPV [...] this encounter Medical Devices Implanted Type Area Mains And Service Supervisor Device Identifier Shelf Expiration Date Model / Serial / Lot Stent Graft Icast [id number] - [id number] - [id number] Implanted:Qty : 1 on 04/14/2022 by Nnamdi King MD at [place] [facility] N/A: Mesenteric Artery GETINGE : [id number] 02/21/2023 [id number] / [id number] / [id number] Description:implanted in SMA Stent [place] 3.0x15 Rx - [id number] Implanted:Qty : 1 on 11/12/2022 by Patrice Jose MD at [facility]ARDIAC [place] [facility] [employer] : VASCULAR [id number] 11/28/2023 [id number] / / [id number] Stent R2p Misago 6fr [id number] - [id number] Implanted:Qty : 1 on 07/18/2023 by Nnamdi King MD at [place] [facility] Right: [facility] : CARDIO SYS [phone] 09/11/2023 [id number] / / [id number] documented as of this encounter Advance Directives [...] the patient have Health Care Power of Field Service Analyst? Yes, in chart and reviewed as [...] patient or by statute hierarchy) Care Teams Pet Store Merchandiser Relationship Specialty Start Date End Date Courtney Restrepo MD [address] [place] [address] [place] [address] PCP - General Family Medicine 10/17/19 documented as of this encounter
--- OUTSIDE RECORDS SUMMARY | 2023-10-07 20:36 | External Medical Summary | Summary of Care ---
Author Name Unknown Organization [facility] Address [address] [place] [address] Phone [phone] Care Team Providers Care Oil Distributor Name Role Phone Courtney Restrepo MD Primary Care Prov ider Encounter Details Date Type Department Care Team (Late st Contact Info) Description 09/13/2023 Orders Only PATIENT PORTAL DO NOT DELETE THIS DEPT [facility] BY [facility] [id number] Allergies Active Allergy Reactions Criticality Noted Date [...] edema Nitroglycerin Hypotension 12/20/2018 Penicillins Nausea/vomiting 05/17/2007 [place] Hives 10/02/2018 Propoxyphene Edema face/lips/tongue,Hiv es 06/26/2009 [...] 20 MG Oral Tablet (Lasix)Indications:A therosclerosis of [place] artery of left lower extremity with rest [...] Active Dulaglutide 0.75 MG/0.5ML Subcutaneous Solution Pen-injector (Nebo) Inject 0.75 mg under the skin once [...] n 07/14/2023 Dependent rubor 07/14/2023 Atherosclerosis of [place] artery of extremity Pre-ulcerative corn or callous [...] rinse after steroid. Test performed by [facility] Old [place] (myocardial infarction) 02/21/2019 Bilateral [...] 07/03/2018 Reactive depression 11/17/2017 Atherosclerosis of [place] co ronary artery of [place] heart without angina pectoris 07/22/2015 Overview: Single [...] rinse after steroid. Test performed by [facility] GENERAL OSTEOARTHROSIS BMI 32.0-32.9,adult Tobacco use [...] HRT DIS NOS Coronary atherosclerosis of [place] coronary artery 11/24/2016 Tobacco abuse 11/17/2017 documented [...] AM EDT Office Visit Family Medicine [address] [place] [phone] Courtney Restrepo MD [address] [place] [address] [place] [address] 10/10/2023 4:00 PM EDT Office Visit Nephrology, [facility] [address] [facility] [address] Charla Potter [facility] [address] [facility] [place] [address] 10/11/2023 10:00 AM EDT Office Visit Pharmacy, [address] [place] [address] [place] [address] 10/12/2023 11:00 AM EDT Office Visit Cardiology, [facility] [address] [place] [address] Frantz Herrera MD [address] [place] [address] 12/07/2023 9:20 AM EDT Office Visit Family Medicine [address] [place] [phone] Courtney Restrepo MD [address] [place] [address] [place] [address] 01/17/2024 10:00 AM EST Hospital Encounter ENDO [facility], Endoscopy Room [facility] [address] [place] [phone] Cassandra Hart MD [address] [place] [address] 01/17/2024 10:00 AM EST - 01/17/2024 10:30 AM EST Surgery ENDO [facility], Endoscopy Room [facility] [address] [place] [phone] Cassandra Hart MD [address] [place] [address] ESOPHAGOGASTRODUODENOSCOPY (EGD), FLEXIBLE, TRANSORAL, DIAGNOSTIC 01/25/2024 10:30 AM EST Imaging Vascular Lab, [address] 132 [facility] [place] [address] 01/25/2024 11:30 AM EST Imaging Vascular Lab, [address] 132 [facility] [place] [address] 02/01/2024 11:30 AM EST Office Visit Vascular Surgery, [address] [place] [address] Nnamdi King MD [address] [facility] [place] [address] 02/08/2024 11:00 AM EST Imaging Radiology, [address] [place] [address] 02/17/2024 10:00 AM EST Office Visit Rheumatology [address] [place] [phone] Marshall Romano MD [address] [place] [address] [place] [address] Scheduled Procedures Name Priority Associated Diagnoses Date/Ti me ESOPHAGOGASTRODUODENOSCOPY ( EGD), FLEXIBLE, TRANSORAL, DIAGNOSTIC 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 01/17/2024 10:00 AM EST ESOPHAGOGASTRODUODENOSCOPY ( EGD), FLEXIBLE, TRANSORAL, DIAGNOSTIC Recall Pendleton's esophagus Health Maintenance Due Date Last Done Comments DISCUSS TOBACCO CESSATION (REFER TO SMARTSET #0092) 1949 Cologuard 1994 Fecal Occult Blood Test [...] D LEVEL ONCE IN A LIFETIME-USE SMARTSET# 91255 Completed 10/16/2021, 12/27/2018 Alpha-1 Antitrypsin Discontinued GARDASIL-HPV [...] this encounter Medical Devices Implanted Type Area Estimator Jewelry Device Identifier Shelf Expiration Date Model / Serial / Lot Stent Graft Icast [id number] - [id number] - [id number] Implanted:Qty : 1 on 04/14/2022 by Nnamdi King MD at OR [facility] N/A: Mesenteric Artery GETINGE : MAQUET [id number] 02/21/2023 [id number] / [id number] / [id number] Description:implanted in SMA Stent [place] 3.0x15 Rx - [id number] Implanted:Qty : 1 on 11/12/2022 by Patrice Jose MD at CARDIAC LABS [facility] MEDTRONIC : VASCULAR [id number] 11/28/2023 [id number] / / [id number] Stent R2p Misago 6fr [id number] - [id number] Implanted:Qty : 1 on 07/18/2023 by Nnamdi King MD at OR [facility] Right: [facility] MED[facility] : CARDIO SYS [id number] 09/11/2023 [id number] / / [id number] documented as of this encounter Advance Directives [...] the patient have Health Care Power of Handkerchief Sample Clerk? Yes, in chart and reviewed as [...] File Name Relationship Healthcare Agent [facility] Communication Diamond Braxton Adult Child Health Care Repr esentative (appointed verbally by patient or by statute hierarchy) Care Teams Oil Distributor Relationship Specialty Start Date End Date Courtney Restrepo MD [address] [place] [address] [place] [address] PCP - General Family Medicine 10/17/19 documented as of this encounter
--- OUTSIDE RECORDS SUMMARY | 2023-10-07 20:37 | External Medical Summary | Summary of Care ---
Author Name Unknown Organization [facility] Address [address] [place] [address] Phone [phone] Care Team Providers Care Roofing Applicator Name Role Phone Courtney Restrepo MD Primary Care Prov ider Reason for Visit * Reason Onset Date Comments Hospital Follow-Up Hospital Follow-Up 09/06/2023 Encounter Details Date Type Department Care Team (Latest Contact Info) Description 09/06/2023 9:40 AM EDT Office Visit Family Medicine [address] [phone] Eben Obregon [address] [place] [address] Hospital discharge follow-up*; COPD, group D, by GOLD 2017 classification ([facility]); Status post below-knee amputation of left lower extremity ([facility]); Type 2 diabetes mellitus with hemoglobin A1c goal of less than 8.0% ([facility]) Allergies Active Allergy Reactions Criticality [...] edema Nitroglycerin Hypotension 12/20/2018 Penicillins Nausea/vomiting 05/17/2007 [place] Hives 10/02/2018 Propoxyphene Edema face/lips/tongue,Hiv es 06/26/2009 documented as of this encounter (statuses as of 09/06/2023) Medications Medication Sig Dispensed Refills Start Date [...] hemoglobin A1c goal of less than 8.0% ([facility]) Test glucose once daily E11.9 [...] 20 MG Oral Tablet (Lasix)Indications: Atherosclerosis of [place] artery of left lower extremity with rest pain ([facility]),DM type 2 with diabetic peripheral neuropathy ([facility]) One daily 30 Tablet 5 4 Active [...] for muscle spasm. 30 Tablet 4 Active Clindamycin HCl 300 MG Oral Capsule Take 1 Capsule by mouth in the morning and 1 Capsule at noon and 1 Capsule before bedtime. 4 Active Budesonide-Formoter ol Fumarate 80-4.5 MCG/ACT Inhalation Aerosol (Symbicort)Indicati ons:COPD, group D, by GOLD 2017 classification ([facility]) Inhale 2 Puffs by mouth in the morning and 2 Puffs before bedtime. 10.2 g 5 4 Active Trelegy Ellipta 100-62.5-25 MCG/ACT Aerosol Powder Breath ActivatedIndication s:COPD, group C, by GOLD 2017 classification ([facility]) Inhale 1 puff as directed once a day 1 inhalation daily. Rinse mouth after every use. 60 Blister Dosing Unit 5 3 09/06/19 24 Discontinu ed(Medicat ion/Dose Changed) documented as of this encounter (statuses as of 09/06/2023) Active Problems Problem Noted Date Diagnosed Date Ischemic rest pain of lower extremity 07/14/2023 Ulcer of right foot, limited to breakdown of ski n 07/14/2023 Dependent rubor 07/14/2023 Atherosclerosis of [place] artery of extremity Pre-ulcerative corn or [...] after steroid. Test performed by Bibiana TAR ROOFER CPFT [place] (myocardial infarction) 02/21/2019 Bilateral [...] osteoporosis 07/03/2018 Reactive depression 11/17/2017 Atherosclerosis of [place] co ronary artery of [place] heart without angina pectoris 07/22/2015 Overview: [...] after steroid. Test performed by Bibiana TAR ROOFER CPFT GENERAL OSTEOARTHROSIS BMI 32.0-32.9,adult Tobacco use disorder Hyperlipidemia with target LDL less than 70 Overview: ICD-10 update of inactive term RSD upper limb Overview: left arm Generalized anxiety disorder documented as of this encounter (statuses as of 09/06/2023) Resolved Problems Problem Noted Date Diagnosed Date [...] ISCHEMIC HRT DIS NOS Coronary atherosclerosis of [place] coronary artery 11/24/2016 Tobacco abuse 11/17/2017 documented as of this encounter (statuses as of 09/06/2023) Immunizations Name Administration Dates Next Due COVID-19 [...] Sign Reading Time Taken Comments Blood Pressure 102/58 09/06/2023 9:39 AM EDT Pulse 88 09/06/2023 9:39 AM EDT Temperature 35.7 C (96.3 F) 09/06/2023 9:39 AM ED T Respiratory Rate - - Oxygen Saturation 95% 09/06/2023 9:39 AM EDT Inhaled Oxygen Concentration - - Weight 75.3 kg (166 lb) 09/06/2023 9:39 AM EDT Height - - Body Mass Index 30.36 07/18/2023 5:45 AM EDT documented in this encounter Functional [...] Progress Notes * Eben Obregon CRNP - 09/06/2023 9:51 AM EDT Images from the original note were not included. History of Present Illness Carlotta Khan is a 73 year old female that presents for Hospital Follow-Up Past medical hx of asthma, HLD, DM II, NIRU, depression, PAD, NITHIN, s/p left BKA amputation. Was admitted to [facility] on 08/30/23 and discharged on 09/04/23. Admitted for Sepsis. Possible aspiration pneumonia and COPD exacerbation. Hospital labs elevated WBC, low mag, hyponatremia, Hgb 10, kidney function stable. Given IV lasix for pulmonary congestion on CXR. Hypotensive during hospital stay and was getting Midodrine. Given steroids and breathing treatments in the hospital Feeling better since last visit. Breathing has improved. Stopped Trelegy and only using albuterol inhaler and nebs. DM insulin while in hospital and d/c on insulin. Resumed wearing Dexcom. Reports sugars are good inthe morning and at night are elevated. A1C in hospital 8.9. Sees MTM tomorrow. Concerned for abdominal bruising and tender lump. Was getting Lovenox injections and after getting discharged developed bruising and pain LUQ. Patient Active Problem List Diagnosis Moderate persistent asthma without complication GENERAL OSTEOARTHROSIS Cerebrovascular disease, arteriosclerotic, post-stroke ADVANCE DIRECTIVE INFORMATION BMI 32.0-32.9,adult Tobacco use disorder Hyperlipidemia with target LDL less than 70 RSD upper limb Type 2 diabetes mellitus with hemoglobin A1c goal of less than 8.0% ([facility]) Controlled substance agreement signed Generalized anxiety disorder Atherosclerosis of [place] coronary artery of [place] heart without angina pectoris Reactive depression Senile osteoporosis PAD (peripheral artery disease) ([facility]) Iron deficiency anemia due to chronic blood loss 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 Chronic superficial gastritis with bleeding Gastrointestinal hemorrhage with melena Lung nodules Moderate mitral regurgitation [place] (myocardial infarction) Bilateral carotid artery stenosis DM type 2 with diabetic peripheral neuropathy ([facility]) Right hand tendonitis Generalized arthritis Hand arthritis Centrilobular emphysema (HCC) 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 ([facility]) Major depressive disorder, recurrent, unspecified ([facility]) Non-proliferative diabetic retinopathy, both eyes ([facility]) Recurrent major depressive disorder, in partial remission ([facility]) Mesenteric ischemia, chronic ([facility]) COPD, group D, by GOLD 2017 classification ([facility]) Chronic ischemic heart disease Advanced directives, counseling/discussion Type 2 diabetes mellitus with peripheral artery disease ([facility]) 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- dominant side ([facility]) S/P femoral-femoral bypass surgery History of cardiac arrest Lactic acidosis Transaminitis Encephalopathy acute Pathological fracture of vertebra due to osteoporosis with routine healing, subsequent encounter S/P AKA (above knee amputation), left ([facility]) Status post below-knee amputation of left lower extremity ([facility]) Pre-ulcerative corn or callous Ischemic rest pain of lower extremity Ulcer of right foot, limited to breakdown of skin ([facility]) Dependent rubor Atherosclerosis of [place] artery of extremity ([facility]) Current Outpatient Medications Medication Sig Dispense Refill [...] 1 Tablet by mouth in the morning. Baclofen 5 MG Oral Tablet (Lioresal) Take 1 Tablet by mouth in the morning and 1 Tablet at noon and1 Tablet before bedtime. As needed for muscle spasm. 30 Tablet 0 Clindamycin HCl 300 MG Oral Capsule Take 1 Capsule by mouth in the morning and 1 Capsule at noon and 1 Capsule before bedtime. Budesonide-Formoterol Fumarate 80-4.5 MCG/ACT Inhalation Aerosol (Symbicort) Inhale 2 Puffs by mouth in the morning and 2 Puffs before bedtime. 10.2 g 5 No current facility-administered medications for this visit. [...] and periorbital edema Nitroglycerin Hypotension Penicillins Nausea/vomiting [place] Hives Propoxyphene Edema face/lips/tongue and Hives Past Medical History: Diagnosis Date Asthma, allergic Benign neoplasm of colon 01/2009 3 mm tubular adenoma in sigmoid, f/u colonoscopy in 5 yrs BMI 32.0-32.9,adult Calculus of kidney spontanteous passage Cardiac arrest (HCC) 11/04/2022 history Carotid artery stenosis, asymptomatic left Carotid Stenosis, infarct w/in 8 wks 08/20/2008 Cellulitis of right foot 07/02/2019 [facility] for severe pain, cellulitis right foot Cerebrovascular Dz, 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 Pt with hx of embolic stroke. L hemiplegia Chronic ischemic heart disease Contusion of hand, right 05/21/2016 Coronary atherosclerosis of [place] coronary artery DM type 2, goal A1c below 7 1994 after being on steroids for a while Fracture of three ribs on left side 02/25/2015 left 3,4,5 Generalized anxiety disorder Generalized osteoarthritis Hidradenitis had skin grafts under both arms by Dr Burrell Hyperlipidemia LDL goal < 70 Hypoxia 02/28/2015 [place], related to hypoventilation from rib fx pain Intracerebral hemorrhage (HCC) 07/03/2008 Need for hepatitis C screening test 08/08/2014 negative Obesity, BMI not known used to weigh 280 Old myocardial infarct x 2 with stent placement OTHER LATE EFFECTS CEREBROVASCULAR DISEASE 07/03/2008 RSD upper limb left arm Scabies 06/07/2017 Treated in [place] ER. Senile osteoporosis 07/03/2018 high risk Shock (HCC) 01/08/2023 Simple or chronic serous otitis media Chronic Serous Otitis Media Spasm of muscle 11/05/2010 Stroke, acute, within 8 weeks 05/30/2008 L hemiplegia Tobacco use disorder Ulnar nerve lesion neuropathy UNSPEC. HEMIPL. AND HEMIPARESIS AFFECTING NONDOMINANT SIDE 07/03/2008 Unspecified constipation 07/03/2008 Wound drainage 11/04/2022 Past Surgical History: Procedure Laterality Date AMPUTATION OF LOWER LEG Left 06/07/2023 AMPUTATION LEG THROUGH TIBIA AND FIBULA performed by Nnamdi King MD at [place] [facility] ANKLE-BRACHIAL INDEX (CARDIOLOGY) Bilateral 11/03/2018 left 1.0, right 0.32 ANKLE-BRACHIAL INDEX (CARDIOLOGY) Bilateral 12/29/2018 Right 0.73, left 0.9 AORTOGRAM ABDOMINAL-TECH ONLY 04/14/2022 IMAGING SUPERVISION & INTERPRETATION ABDOMINAL AO performed by Nnamdi King MD at [facility] APPENDECTOMY W/OTHER PROCEDURE CARDIAC ANGIOPLASTY, PERCUTANEOUS, 1 ARTERY Bilateral 11/12/2022 PTCA, CARDIAC ANGIOPLASTY, PERCUTANEOUS, 1 ARTERY performed by Patrice Jose MD at CARDIAC LABS [facility] COLONOSCOPY THRU STOMA, W/BIOPSY 01/2009 adenomatous polyp, f/u colonoscopy in 5 yrs COLONOSCOPY, DIAGNOSTIC (RECTUM) 07/13/2018 poor prep, repeat 6 mo/COLONOSCOPY FLEXIBLE PROXIMAL DIAGNOSTIC performed by Cassandra Hart MD at ENDOSCOPY [facility] COLONOSCOPY, DIAGNOSTIC (RECTUM) 09/27/2018 6 mm descending tubular adenoma, performed by Cassandra Hart MD at ENDOSCOPY [facility] COMPOSITE SKIN GRAFT b/l axilla, donor site b/l thighs CORONARY ANGIOGRAPHY W/LEFT HEART CATH N/A 11/10/2022 CORONARY ANGIOGRAPHY W/LEFT HEART CATH performed by Patrice Jose MD at CARDIAC LABS [facility] CT ABDOMEN/PELVIS 09/28/2016 no acute [...] performed by Cassandra Hart MD at ENDOSCOPY [facility] EGD, FLEXIBLE, DIAGNOSTIC 01/19/2019 gastric irritation on bx/[facility] EGD, FLEXIBLE, W/BIOPSY 09/27/2018 1 cm salmon colored mucosa suggestive of short segment Pendleton's, mild erythema antrum FEM/POP ARTERY REVASC W/ STENT+ANGIOPLASTY Right 07/18/2023 FEM/POP ARTERY REVASC W/ STENT+ANGIOPLASTY performed by Nnamdi Kign MD at OR [facility] FEM/POP ARTERY REVASC W/ANGIOPLASTY Left 04/14/2022 FEM/POP ARTERY REVASC W/ANGIOPLASTY performed by Nnamdi King MD at OR [facility] FEM/POP ARTERY REVASC W/ANGIOPLASTY Right 09/23/2022 FEM/POP ARTERY REVASC W/ANGIOPLASTY performed by Nnamdi King MD at OR [facility] FEM/POP ARTERY REVASC W/ANGIOPLASTY Left 07/18/2023 FEM/POP ARTERY REVASC W/ANGIOPLASTY performed by Nnamdi King MD at OR [facility] ILIAC ART. REVASCULARIZATION W/ANGIOPLASTY Left 09/23/2022 ILIAC ARTERY REVASCULARIZATION W/ANGIOPLASTY performed by Nnamdi King MD at [facility] CAROTID DUPLEX, BILATERAL 12/06/2012 Right carotid artery duplex examination indicates evidence of a less than 50% stenosis of the internal carotid artery. IR ARTERIOGRAM EXTREMITY BILATERAL 04/14/2022 ANGIOGRAPHY EXTREMITY BILATERAL performed by Nnamdi King MD at OR [facility] IR ARTERIOGRAM EXTREMITY BILATERAL N/A 09/23/2022 ANGIOGRAPHY EXTREMITY BILATERAL performed by Nnamdi King MD at OR [facility] IR ARTERIOGRAM EXTREMITY BILATERAL N/A 07/18/2023 ANGIOGRAPHY EXTREMITY BILATERAL performed by Nnamdi King MD at OR [facility] IR STENT PLACEMENT, INITIAL ARTERY N/A 04/14/2022 NON LOWER EXTREMITY OR CAROTID STENT REVASCULARIZATION WITH RADIOLOGIC SUPERVISION AND INTERPRETATION performed by Nnamdi King MD at OR [facility] MAMMOGRAM SCREENING BILATERAL Bilateral 08/20/2014 [...] performed by Nnamdi King MD at OR [facility] NEG PRESSURE WOUND THERAPY DME </= 50 SQ CM N/A 11/16/2022 NEGATIVE PRESSURE WOUND THERAPY LESS THAN 50SQ CM performed by Nnamdi King MD at OR [facility] NM HEPATOBILIARY SYSTEM WITH PHARMACOLOGIC INTERVENTION 10/18/2018 normal hepatic scan with normal GE ejection fraction PARTIAL AMPUTATION OF TOE Right 11/04/2022 AMPUTATION TOE INTERPHALANGEAL JOINT performed by Nnamdi King MD at OR [facility] PARTIAL HYSTERECTOMY PFT/BA BRONCHODILATOR N/A 03/11/2021 probably normal PFT with some airway reversibility PLACE INTRACORONARY STENT, FIRST VS [id number] REMOVE CATARACT, INSERT LENS PROSTH Left 01/27/2017 Dr Gunter REPAIR OF BLADDER NECK 1994 Dr Montesinos/needed redone due to infection SUBQ DEBRIDEMENT, FIRST 20 CM2 N/A 11/04/2022 DEBRIDEMENT SKIN AND SUBCUTANEOUS TISSUE performed by Nnamdi King MD at OR [facility] SUBQ DEBRIDEMENT, FIRST 20 CM2 N/A 11/16/2022 DEBRIDEMENT SKIN AND SUBCUTANEOUS TISSUE performed by Nnamdi King MD at OR [facility] SYNTH BYPASS, FEM-FEM 2004 fem-fem bypass, [place] THROMBOENDARECTOMY W/PATCH,NECK INCISION [id number] right CEA, [place] THROMBOENDARECTOMY W/PATCH,NECK INCISION 08/19/2008 right redo eversion carotid endarterectomy /Dr. Bynum TOOTH ROOT REMOVAL 01/23/2016 full mouth extraction, Dr Dmitry CALLAHAN BALLOON ANGIOPLASTY OPEN/PERC IMAGE 1ST ARTERY Right 04/14/2022 ANGIOPLASTY ARTERIAL (EXCEPT LOWER EXTREMITY) performed by Nnamdi King MD at OR [facility] US ABDOMEN COMPLETE 08/08/2018 normal [...] Types: Cigarettes Smokeless tobacco: Never Tobacco comments: 08/10/2023 1 pack a day declined pamphlet Vaping Use Vaping status: Never Used Substance and Sexual Activity Alcohol use: No Drug use: No Sexual activity: Not on file Other Topics Concern Not on file Social History Narrative >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 (Adult - for ages 18 years and over): No Does your family have trouble paying for medicine? (Household - for ages 0-17 years): Not on file Food Insecurity: No Food Insecurity (07/01/2023) Food Insecurity Do you need food for this week? (Adult - for ages 18 years and over): No Are you able to get enough food for your family? (Household - for ages 0-17 years): Not on file Does your family need food this week? (Household - for ages 0-17 years): Not on file Do you always have enough food for your family? (Household - for ages 0-17 years): Not on file Transportation Needs: No Transportation Needs (07/01/2023) Transportation Needs Do you have trouble getting a ride to medical visits or work? (Adult - for ages 18 years and over):Never True Does your family have a hard time getting a ride to doctors visits? (Household - for ages 0-17 years): Not on file Has lack of transportation kept you from medical appointments, meetings, work, or from getting things needed for daily living? Check all that apply. (Adult - for ages 18 years and over): Not on file Do you (or your family) have trouble finding or paying for a ride (transportation)? (Household - for ages 0-17 years): Not on file Social Connections: Socially Integrated (07/01/2023) Social Connections How often do you feel lonely or isolated from those around you? (Adult - for ages 18 years and over): Never Housing Stability: Low Risk (07/01/2023) Housing Stability Do you currently live in a snf or have no steady place to sleep at night? (Adult - for ages 18 years and over): No Do you think you are at risk of becoming homeless? (Adult - for ages 18 years and over): No Does your family worry about paying for your home or becoming homeless? (Household - for ages 0-17 years): Not on file Are you homeless or worried that you might be in the future? (Adult - for ages 18 years and over): Not on file Are you (or your family) homeless or worried that you might be in the future? (Household - for ages0-17 years): Not on file Physical Exam Vitals: 09/06/23 0939 Temp: 35.7 C (96.3 F) Pulse: 88 SpO2: 95% BP: 102/58 General: A&Ox3 and no distress Head: Normocephalic and atraumatic Heart: regular rate & rhythm, no murmur, no gallops, S-1 normal, and S-2 normal Lungs: normal respiratory rate and rhythm, diffuse expiratory wheezing Abdomen: abdomen soft, LUQ bruising with that is tender to touch, no warmth or redness Extremities: no right lower extremity edema Skin: warm and dry Assessment and Plan Hospital discharge follow-up - DISCH MED RECON CUR MED LIS - CBC WITH WBC DIFFERENTIAL AND ANEMIA REFLEX WORKUP; Future - MAGNESIUM; Future COPD, group D, by GOLD 2017 classification ([facility]) - Budesonide-Formoterol Fumarate 80-4.5 MCG/ACT Inhalation Aerosol (Symbicort); Inhale 2 Puffs by mouth in the morning and 2 Puffs before bedtime. 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 Jay Time: I spent a total of 30-39 minutes (exact time 38 mins) on the date of service in preparation, delivery, and documentation of the care provided to Carlotta Khan excluding any time spent in the performance of separately billed services. documented in this encounter Nursing Notes * Umu Hitchcock LPN - 09/06/2023 1:43 PM EDT [facility]. * Umu Hitchcock LPN - 09/06/2023 9:36 AM EDT [facility] follow up Trelegy was stopped. C/o feeling sick. Large brusing area on abdomen. C/o having a lump there also. documented in this encounter Plan of Treatment Upcoming Encounters Date Type Department Care Team (Latest Contact Info) Description 09/07/2023 1:10 PM EDT Office Visit Pharmacy, [address] [place] [address] [place] [address] 09/27/2023 9:40 AM EDT Office Visit Family Medicine [address] [place] [phone] Courtney Restrepo MD [address] [place] [address] [place] [address] 10/10/2023 4:00 PM EDT Office Visit Nephrology, [address] [place] [address] Charla Potter MD [address] [place] [address] 10/12/2023 11:00 AM EDT Office Visit Cardiology, [facility] [address] [place] [address] Frantz Herrera MD [address] [place] [address] 12/07/2023 9:20 AM EDT Office Visit Family Medicine [address] [place] [phone] Courtney Restrepo MD [address] [place] [address] [place] [address] 01/17/2024 10:00 AM EST Hospital Encounter ENDO O[facility], Endoscopy Room [facility] [address] [place] [phone] Cassandra Hart MD [address] [place] [address] 01/17/2024 10:00 AM EST - 01/17/2024 10:30 AM EST Surgery ENDO [facility], Endoscopy Room [facility] [address] [place] [phone] Cassandra Hart MD [address] [place] [address] ESOPHAGOGASTRODUODENOSCOPY (EGD), FLEXIBLE, TRANSORAL, DIAGNOSTIC 01/25/2024 10:30 AM EST Imaging [address] Lab[address] [place] [address] 01/25/2024 11:30 AM EST Imaging Vascular Lab, [address] [place] [address] 02/01/2024 11:30 AM EST Office Visit Vascular Surgery, [address] [place] [address] [facility]namdi King MD [address] [facility] [address] 02/08/2024 11:00 AM EST Imaging [place]iology, [address] [place] [address] 02/17/2024 10:00 AM EST Office Visit Rheumatology [address] [place] [phone] Marshall Romano MD [facility] [place] [address] Pending Results Name Type Priority Associated Diagnoses Date /Time CBC WITH WBC DIFFERENTIAL AND ANEMIA REFLEX WORKUP Lab Routine Hospital discharge follow-up 09/06/2023 10:32 AM EDT MAGNESIUM Lab Routine Hospital discharge follow-up 09/06/2023 10:32 AM EDT Scheduled Orders Name Type Priority Associated Diagnoses Orde r Schedule CBC WITH WBC DIFFERENTIAL AND ANEMIA REFLEX WORKUP Lab Routine Hospital discharge follow-up Expected: 09/06/2023 (Approximate), Expires: 09/05/2024 MAGNESIUM Lab Routine Hospital discharge follow-up Expected: 09/06/2023 (Approximate), Expires: 09/05/2024 Scheduled Procedures Name Priority Associated Diagnoses Date/Ti me ESOPHAGOGASTRODUODENOSCOPY ( EGD), FLEXIBLE, TRANSORAL, DIAGNOSTIC 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 01/17/2024 10:00 AM EST ESOPHAGOGASTRODUODENOSCOPY ( EGD), FLEXIBLE, TRANSORAL, DIAGNOSTIC Recall Pendleton's esophagus Health Maintenance Due Date Last Done Comments DISCUSS TOBACCO CESSATION (REFER TO SMARTSET #[id number]) 1949 Cologuard 1994 Fecal Occult Blood Test [...] 03/19/2021, Additional history exists GFR 06/14/2024 06/15/2023, 040 04/2023, 06/13/2023, Additional history exists Depression Monitoring 06/21/2024 06/22/2023 O2 ASSESSMENT COMPLETED IN PAST YEAR FOR COPD 07/17/2024 07/18/2023 DTaP,Tdap,and Td Vaccines (4 - Td or Tdap) 10/17/2032 10/17/2022, 07/14/2021 (Declined), 07/27/2010 Pneumococcal Vaccine: 65+ Years Completed 10/27/2015, 08/08/2014, 05/30/2008 RETIRED - COLONOSCOPY-EVERY 5 YRS AGES 18-100 Discontinued 09/27/2018, 09/27/2018, 07/13/2018, Additional history exists VITAMIN D LEVEL ONCE IN A LIFETIME-USE SMARTSET# [id number] Completed 10/16/2021, 12/27/2018 Alpha-1 Antitrypsin Discontinued GARDASIL-HPV [...] this encounter Medical Devices Implanted Type Area Wellness Health Coach Device Identifier Shelf Expiration Date Model / Serial / Lot Stent Graft Icast [id number] - [id number] - [id number] Implanted:Qty : 1 on 04/14/2022 by Nnamdi King MD at [place] [facility] N/A: Mesenteric Artery GETINGE : MAQUET [id number] 02/21/2023 [id number] / [id number] / [id number] Description:implanted in SMA Stent Howie 3.0x15 Rx - [id number] Implanted:Qty : 1 on 11/12/2022 by Patrice Jose MD at [facility]ARDIAC LABS [facility] [employer] : VASCULAR [id number] 11/28/2023 [id number] / / [id number] Stent R2p Misago 6fr [id number] - [id number] Implanted:Qty : 1 on 07/18/2023 by Nnamdi King MD at OR [facility] Right: [facility] : CARDIO SYS [id number] 09/11/2023 [id number] / / [id number] documented as of this encounter Visit Diagnoses Diagnosis Hospital discharge follow-up- Primary Other follow-up examination COPD, group D, by GOLD 2017 classification (HCC) Status post below-knee amputation of left lower extremity (HCC) Type 2 diabetes mellitus with hemoglobin A1c goal of less than 8.0% (HCC) 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 Pendleton's esophagus [...] the patient have Health Care Power of Design Consultant? Yes, in chart and reviewed as current [...] patient or by statute hierarchy) Care Teams Roofing Applicator Relationship Specialty Start Date End Date Courtney Restrepo MD [address] [place] [address] [place] [id number] PCP - General Family Medicine 10/17/19 documented as of this encounter
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
--- OUTSIDE RECORDS SUMMARY | 2023-10-07 20:37 | External Medical Summary | Summary of Care ---
Author Name Unknown Organization [facility] Address [address] [place] [address] Phone [phone] Care Team Providers Care Services Executive Name Role Phone Courtney Restrepo MD Primary Care Prov ider Reason for Visit * Reason Onset Date Comments Hospital Follow-Up Hospital Follow-Up 09/06/2023 Encounter Details Date Type Department Care Team (Latest Contact Info) Description 09/06/2023 9:40 AM EDT Office Visit Family Medicine [address] [phone] Eben Obregon [address] [place] [address] Hospital discharge follow-up*; COPD, group D, by GOLD 2017 classification ([facility]); Status post below-knee amputation of left lower extremity ([facility]); Type 2 diabetes mellitus with hemoglobin A1c goal of less than 8.0% ([facility]) Allergies Active Allergy Reactions Criticality Noted Date [...] edema Nitroglycerin Hypotension 12/20/2018 Penicillins Nausea/vomiting 05/17/2007 [place] Hives 10/02/2018 Propoxyphene Edema face/lips/tongue,Hiv es 06/26/2009 [...] lower extremity with rest pain ([facility]),DM type 2 with diabetic peripheral neuropathy ([facility]) One daily 30 Tablet 5 4 [...] classification ([facility]) Inhale 2 Puffs by mouth [...] rinse after steroid. Test performed by Bibiana MID LEVEL DEVELOPER CPFT [place] (myocardial infarction) 02/21/2019 Bilateral [...] rinse after steroid. Test performed by Bibiana MID LEVEL DEVEL[employer] CPFT GENERAL OSTEOARTHROSIS BMI 32.0-32.9,adult Tobacco [...] s/p left BKA amputation. Was admitted to [facility] on 08/30/23 and discharged on 09/04/23. Admitted [...] than 8.0% ([facility]) Controlled substance agreement signed Generalized anxiety disorder Atherosclerosis of [place] coronary artery of [place] heart without angina pectoris Reactive depression Senile osteoporosis PAD (peripheral artery disease) ([facility]) Iron deficiency anemia due to chronic blood loss 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 Chronic superficial gastritis with bleeding Gastrointestinal hemorrhage with melena Lung nodules Moderate mitral regurgitation [place] (myocardial infarction) Bilateral carotid artery stenosis DM type 2 with diabetic peripheral neuropathy ([facility]) Right hand tendonitis Generalized arthritis Hand arthritis Centrilobular emphysema (HCC) 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 ([facility]) Major depressive disorder, recurrent, unspecified ([facility]) Non-proliferative diabetic retinopathy, both eyes ([facility]) Recurrent major depressive disorder, in partial remission ([facility]) Mesenteric ischemia, chronic ([facility]) COPD, group D, by GOLD 2017 classification ([facility]) Chronic ischemic heart disease Advanced directives, counseling/discussion Type 2 diabetes mellitus with peripheral artery disease ([facility]) 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- dominant side ([facility]) S/P femoral-femoral bypass surgery History of cardiac arrest Lactic acidosis Transaminitis Encephalopathy acute Pathological fracture of vertebra due to osteoporosis with routine healing, subsequent encounter S/P AKA (above knee amputation), left ([facility]) Status post below-knee amputation of left lower extremity ([facility]) Pre-ulcerative corn or callous Ischemic rest pain of lower extremity Ulcer of right foot, limited to breakdown of skin ([facility]) Dependent rubor Atherosclerosis of [place] artery of extremity ([facility]) Current Outpatient Medications Medication Sig Dispense Refill [...] and periorbital edema Nitroglycerin Hypotension Penicillins Nausea/vomiting [place] Hives Propoxyphene Edema face/lips/tongue and Hives Past Medical History: Diagnosis Date Asthma, allergic Benign neoplasm of colon 01/2009 3 mm tubular adenoma in sigmoid, f/u colonoscopy in 5 yrs BMI 32.0-32.9,adult Calculus of kidney spontanteous passage Cardiac arrest (HCC) 11/04/2022 history Carotid artery stenosis, asymptomatic left Carotid Stenosis, infarct w/in 8 wks 08/20/2008 Cellulitis of right foot 07/02/2019 [facility] for severe pain, cellulitis right foot [...] Hyperlipidemia LDL goal < 70 Hypoxia 02/28/2015 [place], related to hypoventilation from rib fx pain Intracerebral hemorrhage (HCC) 07/03/2008 Need for hepatitis C screening test 08/08/2014 negative Obesity, BMI not known used to weigh 280 Old myocardial infarct x 2 with stent placement OTHER LATE EFFECTS CEREBROVASCULAR DISEASE 07/03/2008 RSD upper limb left arm Scabies 06/07/2017 Treated in [place] ER. Senile osteoporosis 07/03/2018 high risk Shock [...] performed by Nnamdi King MD at OR [facility] ANKLE-BRACHIAL INDEX (CARDIOLOGY) Bilateral 11/03/2018 left 1.0, right 0.32 ANKLE-BRACHIAL INDEX (CARDIOLOGY) Bilateral 12/29/2018 Right 0.73, left 0.9 AORTOGRAM ABDOMINAL-TECH ONLY 04/14/2022 IMAGING SUPERVISION & INTERPRETATION ABDOMINAL AO performed by Nnamdi King MD at [facility] APPENDECTOMY W/OTHER PROCEDURE CARDIAC ANGIOPLASTY, PERCUTANEOUS, 1 ARTERY Bilateral 11/12/2022 PTCA, CARDIAC ANGIOPLASTY, PERCUTANEOUS, 1 ARTERY performed by Patrice Jose MD at CARDIAC LABS [facility] COLONOSCOPY THRU STOMA, W/BIOPSY 01/2009 adenomatous polyp, f/u colonoscopy in 5 yrs COLONOSCOPY, DIAGNOSTIC (RECTUM) 07/13/2018 poor prep, repeat 6 mo/COLONOSCOPY FLEXIBLE PROXIMAL DIAGNOSTIC performed by Cassandra Hart MD at ENDOSCOPY [facility] COLONOSCOPY, DIAGNOSTIC (RECTUM) 09/27/2018 6 mm descending tubular adenoma, performed by Cassandra Hart MD at ENDOSCOPY [facility] COMPOSITE SKIN GRAFT b/l axilla, donor site b/l thighs CORONARY ANGIOGRAPHY W/LEFT HEART CATH N/A 11/10/2022 CORONARY ANGIOGRAPHY W/LEFT HEART CATH performed by Patrice Jose MD at CARDIAC LABS [facility] CT ABDOMEN/PELVIS 09/28/[address] [...] by Cassandra Hart MD at ENDOSCOPY [facility] EGD, FLEXIBLE, DIAGNOSTIC 01/19/2019 gastric irritation on bx/[facility] EGD, FLEXIBLE, W/BIOPSY 09/27/2018 1 cm salmon colored mucosa suggestive of short segment Pendleton's, mild erythema antrum FEM/POP ARTERY REVASC W/ STENT+ANGIOPLASTY Right 07/18/2023 FEM/POP ARTERY REVASC W/ STENT+ANGIOPLASTY performed by Nnamdi King MD at OR [facility] FEM/POP ARTERY REVASC W/ANGIOPLASTY Left 04/14/2022 FEM/POP ARTERY REVASC W/ANGIOPLASTY performed by Nnamdi King MD at OR [facility] FEM/POP ARTERY REVASC W/ANGIOPLASTY Right 09/23/2022 FEM/POP ARTERY REVASC W/ANGIOPLASTY performed by Nnamdi King MD at OR [facility] FEM/POP ARTERY REVASC W/ANGIOPLASTY Left 07/18/2023 FEM/POP ARTERY REVASC W/ANGIOPLASTY performed by Nnamdi King MD at OR [facility] ILIAC ART. REVASCULARIZATION W/ANGIOPLASTY Left 09/23/2022 ILIAC ARTERY REVASCULARIZATION W/ANGIOPLASTY performed by Nnamdi King MD at OR [facility] CAROTID DUPLEX, BILATERAL 12/06/2012 Right carotid artery duplex examination indicates evidence of a less than 50% stenosis of the internal carotid artery. IR ARTERIOGRAM EXTREMITY BILATERAL 04/14/2022 ANGIOGRAPHY EXTREMITY BILATERAL performed by Nnamdi King MD at OR [facility] IR ARTERIOGRAM EXTREMITY BILATERAL N/A 09/23/2022 ANGIOGRAPHY EXTREMITY BILATERAL performed by Nnamdi King MD at OR [facility] IR ARTERIOGRAM EXTREMITY BILATERAL N/A 07/18/2023 ANGIOGRAPHY EXTREMITY BILATERAL performed by Nnamdi King MD at OR [facility] IR STENT PLACEMENT, INITIAL ARTERY N/A 04/14/2022 NON LOWER EXTREMITY OR CAROTID STENT REVASCULARIZATION WITH RADIOLOGIC SUPERVISION AND INTERPRETATION performed by Nnamdi King MD at OR [facility] MAMMOGRAM SCREENING BILATERAL Bilateral 08/20/2014 almost entirely fat, category 1 normal MAMMOGRAM SCREENING BILATERAL Bilateral 05/12/2017 scattered fibroglandular densities category 1 normal MOBILE DXA 07/03/2018 Lumbar T -0.7, left femur T -2.9, high risk, treatment recommended NEG PRESSURE WOUND THERAPY DME </= 50 SQ CM N/A 11/04/2022 NEGATIVE PRESSURE WOUND THERAPY LESS THAN 50SQ CM performed by Nnamdi King MD at OR [facility] NEG PRESSURE WOUND THERAPY DME </= 50 SQ CM N/A 11/16/2022 NEGATIVE PRESSURE WOUND THERAPY LESS THAN 50SQ CM performed by Nnamdi King MD at OR [facility] NM HEPATOBILIARY SYSTEM WITH PHARMACOLOGIC INTERVENTION 10/18/2018 normal hepatic scan with normal GE ejection fraction PARTIAL AMPUTATION OF TOE Right 11/04/2022 AMPUTATION TOE INTERPHALANGEAL JOINT performed by Nnamdi King MD at OR [facility] PARTIAL HYSTERECTOMY PFT/BA BRONCHODILATOR N/A 03/11/2021 probably normal PFT with some airway reversibility PLACE INTRACORONARY STENT, FIRST VS [id number] REMOVE CATARACT, INSERT LENS PROSTH Left 01/27/2017 Dr Gunter REPAIR OF BLADDER NECK 1994 Dr Montesinos/needed redone due to infection SUBQ DEBRIDEMENT, FIRST 20 CM2 N/A 11/04/2022 DEBRIDEMENT SKIN AND SUBCUTANEOUS TISSUE performed by Nnamdi King MD at OR [facility] SUBQ DEBRIDEMENT, FIRST 20 CM2 N/A 11/16/2022 DEBRIDEMENT SKIN AND SUBCUTANEOUS TISSUE performed by Nnamdi King MD at OR [facility] SYNTH BYPASS, FEM-FEM 2004 fem-fem bypass, [place] THROMBOENDARECTOMY W/PATCH,NECK INCISION [id number] right CEA, [place] THROMBOENDARECTOMY W/PATCH,NECK INCISION 08/19/2008 right redo eversion carotid endarterectomy /Dr. 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 Status post below-knee amputation of left lower extremity ([facility]) - DURABLE MEDICAL EQUIPMENT Type 2 diabetes mellitus with hemoglobin A1c goal of less than 8.0% ([facility]) Plan - VS reviewed and stable - [...] DME for crutches has home PT and deodorizer operator to help with use - follow up with [facility] tomorrow / to bring Dexcom with [...] PM EDT [facility]. * Umu Hitchcock LPN - 09/06/2023 9:36 AM EDT [facility] follow up Trelegy was stopped. C/o feeling sick. Large brusing area on abdomen. C/o having a lump there also. documented in this encounter Plan of Treatment Upcoming Encounters Date Type Department Care Team (Latest Contact Info) Description 09/07/2023 1:10 PM EDT Office Visit Pharmacy, [address] [place] [address] [place] [address] 09/27/2023 9:40 AM EDT Office Visit Family Medicine [address] [place] [phone] Courtney Restrepo MD [address] [place] [address] [place] [address] 10/10/2023 4:00 PM EDT Office Visit Nephrology, [address] [place] [address] Charla Potter MD [address] [place] [address] 10/12/2023 11:00 AM EDT Office Visit Cardiology, [facility] [address] [place] [address] Frantz Herrera MD [address] [place] [address] 12/07/2023 9:20 AM EDT Office Visit Family Medicine [address] [place] [phone] Courtney Restrepo MD [address] [place] [address] [place] [address] 01/17/2024 10:00 AM EST Hospital Encounter ENDO OSSC, Endoscopy Room [facility] [address] [place] [phone] Cassandra Hart MD [address] [place] [address] 01/17/2024 10:00 AM EST - 01/17/2024 10:30 AM EST Surgery ENDO OSS[facility], Endoscopy Room [facility] [address] [place] [phone] Cassandra Hart MD [address] [place] [address] ESOPHAGOGASTRODUODENOSCOPY (EGD), FLEXIBLE, TRANSORAL, DIAGNOSTIC 01/25/2024 10:30 AM EST Imaging Vascular Lab, [address] [place] [address] 01/25/2024 11:30 AM EST Imaging Vascular Lab, [address] [place] [address] 02/01/2024 11:30 AM EST Office Visit Vascular Surgery, [address] [place] [address] Nnamdi King MD [address] [facility] [address] 02/08/2024 11:00 AM EST Imaging Radiology, [address] [place] [address] 02/17/2024 10:00 AM EST Office Visit Rheumatology [address] [place] [phone] Marshall Romano MD [facility] [place] [address] Pending Results Name Type Priority Associated Diagnoses [...] Comments DISCUSS TOBACCO CESSATION (REFER TO SMARTSET #4021) 1949 Cologuard 1994 Fecal Occult Blood Test [...] D LEVEL ONCE IN A LIFETIME-USE SMARTSET# 17441 Completed 10/16/2021, 12/27/2018 Alpha-1 Antitrypsin Discontinued GARDASIL-HPV [...] this encounter Medical Devices Implanted Type Area Utility Clerk Device Identifier Shelf Expiration Date Model / Serial / Lot Stent Graft Icast [id number] - [id number] - [id number] Implanted:Qty : 1 on 04/14/2022 by Nnamdi King MD at OR [facility] N/A: Mesenteric Artery GETINGE : MAQUET [id number] 02/21/2023 [id number] / [id number] / [id number] Description:implanted in SMA Stent Howie 3.0x15 Rx - [id number] Implanted:Qty : 1 on 11/12/2022 by Patrice Jose MD at CARDIAC LABS [facility] [employer] : VASCULAR [id number] 11/28/2023 [id number] / / [id number] 2 Stent R2p Misago 6fr [id number] - [id number] Implanted:Qty : 1 on 07/18/2023 by Nnamdi King MD at OR [facility] Right: [facility] MEDICAL : CARDIO SYS [phone] 09/11/2023 [id number] / / [id number] documented as of this encounter Visit Diagnoses [...] the patient have Health Care Power of Career Coach? Yes, in chart and reviewed as current [...] patient or by statute hierarchy) Care Teams Services Executive Relationship Specialty Start Date End Date Courtney Restrepo MD [address] [place] [address] [place] [phone] PCP - General Family Medicine 10/17/19 documented as of this encounter
--- OUTSIDE RECORDS SUMMARY | 2023-10-07 20:37 | External Medical Summary | Summary of Care ---
Author Name Unknown Organization [facility] Address [address] [place] [address] Phone [phone] Care Team Providers Care Wood Pole Treater Name Role Phone Courtney Restrepo MD Primary Care Prov ider Reason for Visit * Reason Comments Dosage Adjustment In Person (Anticoag Cl inic) Diabetes Follow-Up Encounter Details Date Type Department Care Team (Late st Contact Info) Description 09/07/2023 1:10 PM EDT Office Visit Pharmacy, [address] [place] [address] [place] [address] Type 2 diabetes mellitus with hemoglobin A1c goal of less than 8.0% ([facility])* Allergies Active Allergy Reactions Criticality [...] edema Nitroglycerin Hypotension 12/20/2018 Penicillins Nausea/vomiting 05/17/2007 Marrero Hives 10/02/2018 Propoxyphene Edema face/lips/tongue,Hiv es 06/26/2009 documented as of this encounter (statuses as of 09/07/2023) Medications Medication Sig Dispensed Refills Start Date End Date Status busPIRone HCl 15 MG Oral Tablet (Buspar)Indications: Anxiety TAKE ONE TABLET TWICE DAILY 180 Tablet 1 10/15/2022 Active DULoxetine HCl 30 MG Oral Capsule Delayed Release Particles (Cymbalta)Indication s:Chronic midline thoracic back pain,Generalized anxiety disorder Take 1 Capsule by mouth in the morning and 1 Capsule before bedtime. 180 Capsule 2 10/15/2022 Active [employer] Care[employer] Delica Lancets 30GIndications:Type 2 diabetes mellitus with [...] less than 8.0% ([facility]) Test glucose once daily E11.9 [...] of left lower extremity with rest pain ([facility]),DM type 2 with diabetic peripheral neuropathy ([facility]) One daily 30 Tablet 5 07/28/2023 Active [...] TabletIndications:S/ P AKA (above knee amputation), left ([facility]) Take 1 Tablet by mouth [...] ns:COPD, group D, by GOLD 2017 classification ([facility]) Inhale 2 Puffs by mouth in the morning and 2 Puffs before bedtime. 10.2 g 5 09/06/2023 Active Dulaglutide 0.75 MG/0.5ML Subcutaneous Solution Pen-injector ([facility]) Inject 0.75 mg under the skin once a week. DxE11.9 2 mL 3 09/07/2023 Active documented as of this encounter (statuses as of 09/07/2023) Active Problems Problem Noted Date Diagnosed Date [...] rinse after steroid. Test performed by [employer] [place] (myocardial infarction) 02/21/2019 Bilateral [...] rinse after steroid. Test performed by [employer] GENERAL OSTEOARTHROSIS BMI 32.0-32.9,adult Tobacco use disorder Hyperlipidemia with target LDL less than 70 Overview: ICD-10 update of inactive term RSD upper limb Overview: left arm Generalized anxiety disorder documented as of this encounter (statuses as of 09/07/2023) Resolved Problems Problem Noted Date Diagnosed Date [...] as of this encounter (statuses as of 09/07/2023) Immunizations Name Administration Dates Next Due COVID-19 [...] this encounter Progress Notes * Zenia Goldberg, [facility] - 09/07/2023 1:13 PM EDT Images from the original note were not included. Medication Therapy [facility] - Diabetes Management Progress Note Carlotta Khan, identified by name and date of , is a 73 year old female being seen for diabetes management/education. Patient presents for return diabetic visit. Patient presents today with Dee DIABETES: Current diabetic medications: Novolog 8 units before meals (taking 2-4 units) Lantus 11 units at bedtime eGFR >90 as of 06/15/23 Medication Injection Site: Abdomen Lifestyle: Diet: unchanged Glucose Review/SMBG: Readings obtained from patient device Hypoglycemia: Does your blood sugar go below 70 mg/dL? No Hyperglycemia symptoms present: none Recent Labs Units 09/06/23 1032 06/08/23 0536 12/10/22 1318 HEMOGLOBIN A1C - [facility] % 9.0* 9.1* 7.1* Recent Labs Units 09/06/23 1032 06/15/23 0720 06/14/23 0601 ESTIMATED GLOMERULAR FILTRATION RATE - [facility] mL/min 80 >90 >90 CREATININE - [facility] mg/dL 0.8 0.7 0.6 HYPERTENSION: Patient on ACEi/ARB: no, deferred BP Readings from Last 3 Encounters: 09/06/23 102/58 08/30/23 104/60 08/10/23 98/62 Blood pressure at goal: yes HYPERLIPIDEMIA: Patient is taking moderate or high intensity statin: no, deferred HEALTH MAINTENANCE REVIEW: Health Maintenance Due Topic Date Due DISCUSS TOBACCO CESSATION (REFER TO SMARTSET #6531) Never done *ADVANCE DIRECTIVE NOT ON FILE Never done Pendleton's Esophagus Surveilance 01/19/2022 COVID-19 Vaccine ( season) 2022 Diabetic Eye Exam 06/05/2023 DXA Scan 07/22/2023 Diabetic Foot Exam 09/09/2023 Colorectal Cancer Screening 09/28/2023 ASSESSMENT & PLAN: ICD-10-CM 1. Type 2 diabetes mellitus with hemoglobin A1c goal of less than 8.0% (H[facility]) E11.9 Considerations: Left BKA on 06/07/23 d/t severe PAD Dexcom G7 - [facility] Medical [phone] Declines insulin Recent hospital admission at [facility] from 08/29 - 09/03 for sepsis, possible aspiration pneumonia, and COPD exacerbation. BG Readings - Blood sugars reviewed per Dexcom download. Overall improvement noted since last A1c, however still remaining slightly above goal. Medications - Reviewed current regimen. Patient discharged back on insulin. Patient states she willno longer take insulin. Discussed possible de-escalation of insulin while being established on another agent however patient declines. Patient was on Jardiance and Glipizide in the past. Discussed hesitancy with sulfonylurea. Discussed GLP-1. Patient denies hx of pancreatitis and denies personal or family history of thyroid cancer. Discussed cardiac benefit. Discussed MOA and AEs. After discussion, patient would like to try Trulicity. Taught patient how to use Truilicity pen. Reviewed with patient individual steps to do to prepare Trulicity prior to use: washing hands; remove wallace end; place end against stomach, outer thigh or back of arm; dial pen from locked (red) to unlocked (green); press green button; wait for pen to injectand needle to snap back, then remove and throw away. Reviewed proper injection technique. Patient verbalized understanding and displayed successful technique. Also reviewed directions for a missed dose of the medication. Confirmed with patient no personal or family history of pancreatitis or thyroid cancer. Of note, called and spoke with [facility] pharmacy. Able to order Trulicity in for tomorrow. Patient agreeable to continue to take insulin the rest of today. Diet, Exercise, Lifestyle - Eating well and without issue since hospital discharge. Patient is agreeable to SMBG daily with CGM (Dexcom G7) Patient aware to contact clinic if any hypoglycemia before next visit. MEDICATION CHANGES: yes, see below; preferred pharmacy: [facility] Diabetic Medications: STOP Novolog 8 units before meals STOP Lantus 11 units at bedtime START Trulicity 0.75mg once weekly eGFR >90 as of 06/15/23 HEALTH MAINTENANCE INTERVENTIONS: Deferred d/t time constraints FOLLOW UP: Return to clinic in 5 weeks; PCP in 3 weeks 10/11/2023 Zenai Goldberg RPh Clinical Pharmacist - Icicle Machine Operator Medication Therapy Management Clinic 09/07/2023, 1:13 PM documented in this encounter Plan of Treatment Upcoming Encounters Date Type Department Care Team (Latest Contact Info) Description 09/27/2023 9:40 AM EDT Office Visit Family Medicine [address] [phone] Courtney Restrepo MD [address] [place] [address] [place] [address] 10/10/2023 4:00 PM EDT Office Visit Nephrology, [address] [place] [address] Charla Potter MD [address] [place] [address] 10/11/2023 10:00 AM EDT Office Visit Pharmacy, [address] [place] [address] [place] [address] 10/12/2023 11:00 AM EDT Office Visit Cardiology, [facility] [address] [place] [address] Frantz Herrera MD [address] [place] [address] 12/07/2023 9:20 AM EDT Office Visit Family Medicine [address] [place] [phone] Courtney Restrepo MD [address] [place] [address] [place] [address] 01/17/2024 10:00 AM EST Hospital Encounter ENDO [facility], Endoscopy Room [facility] [address] [place] [phone] Cassandra Hart MD [address] [place] [address] 01/17/2024 10:00 AM EST - 01/17/2024 10:30 AM EST Surgery ENDO [facility], Endoscopy Room [facility] [address] [place] [phone] Cassandra Hart MD 132 [facility] [place] [address] ESOPHAGOGASTRODUODENOSCOPY (EGD), FLEXIBLE, TRANSORAL, DIAGNOSTIC 01/25/2024 10:30 AM EST Imaging Vascular Lab, [address] [facility] [place] [address] 01/25/2024 11:30 AM EST Imaging Vascular Lab, [address] [facility] [place] [address] 02/01/2024 11:30 AM EST Office Visit Vascular Surgery, [facility] [address] [facility] [place] [address] Nnamdi King MD [address] [place] [address] 02/08/2024 11:00 AM EST Imaging Radiology, [address] [place] [address] 02/17/2024 10:00 AM EST Office Visit [address] [place] [phone] Marshall Romano MD [facility] [place], [place] [address] Scheduled Procedures Name Priority Associated Diagnoses Date/Ti md ESOPHAGOGASTRODUODENOSCOPY ( EGD), FLEXIBLE, TRANSORAL, DIAGNOSTIC Pendleton's [...] D LEVEL ONCE IN A LIFETIME-USE SMARTSET# [id number] Completed 10/16/2021, 12/27/2018 Alpha-1 Antitrypsin Discontinued GARDASIL-HPV [...] this encounter Medical Devices Implanted Type Area Oil Pipeline Dispatcher Device Identifier Shelf Expiration Date Model / Serial / Lot Stent Graft Icast [id number] - [id number] - [id number] Implanted:Qty : 1 on 04/14/2022 by Nnamdi King MD at OR [facility] N/A: Mesenteric Artery GETINGE : MAANASTASIYAT [id number] 02/21/2023 [id number] / [id number] / [id number] Description:implanted in SMA Stent Howie 3.0x15 Rx - [id number] Implanted:Qty : 1 on 11/12/2022 by Patrice Jose MD at CARDIAC LABS [facility] [employer] : VASCULAR [id number] 11/28/2023 [id number] / / [id number] Stent R2p Misago 6fr [id number] - [id number] Implanted:Qty : 1 on 07/18/2023 by Nnamdi King MD at OR [facility] Right: [facility] : CARDIO SYS [id number] 09/11/2023 [id number] / / [id number] documented as of this encounter Visit Diagnoses [...] the patient have Health Care Power of Scrap Baller? Yes, in chart and reviewed as current [...] or by statute hierarchy) Care Teams Wood Pole Treater Relationship Specialty Start Date End Date Courtney Restrepo MD [address] [place] [address] [place] [address] PCP - General Family Medicine 10/17/19 documented as of this encounter
--- OUTSIDE RECORDS SUMMARY | 2023-10-07 20:38 | External Medical Summary ---
Author Name Unknown Address Unknown Organization [id number]:LABORATORY [facility] - [address] [facility] [address] Laboratory Report Ordering Provider Test Date Status NAYE ELLISON 09/06/2023 10:32:19 Final Observation Date Value Abnormality Reference (Units ) Status HbA1C 09/06/2023 10:32:19 9.0 Above high normal 4. 0-5.6 (%) Final The use of HbA1c to monitor glycemic status is based on normal hemoglobin and HbA composition. This test should not be used in patients with abnormal hemoglobin that affects the half life of the red blood cell or the in vivo glycation rates. Glucose, estimated average 09/06/2023 10:32:19 212 Above high normal <126 (mg/dL) Grayson macias Performing Location LABORATORY [facility] - [address] [address] [facility] [address]
--- OUTSIDE RECORDS SUMMARY | 2023-10-07 20:38 | External Medical Summary ---
Author Name Unknown Address Unknown Organization [id number]:LABORATORY [place] [address] [place] [address] Laboratory Report Ordering Provider Test Date Status GAURAV BARNARD 09/06/2023 10:32:19 Final Observation Date Value Abnormality Reference (Units ) Status Retic, % (auto) 09/06/2023 10:32:19 2.68 Above high normal 0.80-1.90 (%) Final Reticulocytes, Absolute 09/06/2023 10:32:19 121.4 Above high normal 31.3-100.1 (K/uL) Final Reticulocyte fraction, immature 09/06/2023 10:32:19 36.2 Above high normal 2.5-20.6 (%) Final Reticulocyte HGB 09/06/2023 10:32:19 24.8 Below low normal 29.7-37.4 (pg) Final Performing Location LABORATORY [facility] [place] [place] - [facility] [address] [facility] [address]
--- OUTSIDE RECORDS SUMMARY | 2023-10-07 20:38 | External Medical Summary | Summary of Care ---
Author Name Unknown Organization [facility] Address [address] [place] [address] Phone [phone] Care Team Providers Care Ammonia Box Operator Name Role Phone Courtney Restrepo MD Primary Care Prov ider Reason for Visit * Reason Onset Date Comments Hospital Follow-Up Hospital Follow-Up 09/06/2023 Encounter Details Date Type Department Care Team (Latest Contact Info) Description 09/06/2023 9:40 AM EDT Office Visit Family Medicine [address] [phone] Eben Obregon [address] [place] [address] Hospital discharge follow-up*; COPD, group D, by GOLD 2017 classification ([facility]); Status post below-knee amputation of left lower extremity ([facility]); Type 2 diabetes mellitus with hemoglobin A1c goal of less than 8.0% ([facility]) Allergies Active Allergy Reactions Criticality [...] edema Nitroglycerin Hypotension 12/20/2018 Penicillins Nausea/vomiting 05/17/2007 [place] Hives 10/02/2018 Propoxyphene Edema face/lips/tongue,Hiv es 06/26/2009 [...] 20 MG Oral Tablet (Lasix)Indications: Atherosclerosis of [place] artery of left lower extremity with rest pain ([facility]),DM type 2 with diabetic peripheral neuropathy ([facility]) One daily 30 Tablet 5 [...] ons:COPD, group D, by GOLD 2017 classification ([facility]) Inhale 2 Puffs by mouth [...] n 07/14/2023 Dependent rubor 07/14/2023 Atherosclerosis of [place] artery of extremity Pre-ulcerative corn or [...] rinse after steroid. Test performed by Bibiana CASTING CLEANER CPFT [place] (myocardial infarction) 02/21/2019 Bilateral [...] osteoporosis 07/03/2018 Reactive depression 11/17/2017 Atherosclerosis of [place] co ronary artery of [place] heart without angina pectoris 07/22/2015 Overview: [...] rinse after steroid. Test performed by Bibiana CASTING CLEANER CPFT GENERAL OSTEOARTHROSIS BMI 32.0-32.9,adult Tobacco use [...] ISCHEMIC HRT DIS NOS Coronary atherosclerosis of [place] coronary artery 11/24/2016 Tobacco abuse 11/17/2017 [...] s/p left BKA amputation. Was admitted to [facility] on 08/30/23 and discharged on 09/04/23. [...] than 8.0% ([facility]) Controlled substance agreement signed Generalized anxiety disorder Atherosclerosis of [place] coronary artery of [place] heart without angina pectoris Reactive depression Senile osteoporosis PAD (peripheral artery disease) ([facility]) Iron deficiency anemia due to chronic blood loss 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 Chronic superficial gastritis with bleeding Gastrointestinal hemorrhage with melena Lung nodules Moderate mitral regurgitation [place] (myocardial infarction) Bilateral carotid artery stenosis DM type 2 with diabetic peripheral neuropathy ([facility]) Right hand tendonitis Generalized arthritis Hand arthritis Centrilobular emphysema (HCC) 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 ([facility]) Major depressive disorder, recurrent, unspecified ([facility]) Non-proliferative diabetic retinopathy, both eyes ([facility]) Recurrent major depressive disorder, in partial remission ([facility]) Mesenteric ischemia, chronic ([facility]) COPD, group D, by GOLD 2017 classification ([facility]) Chronic ischemic heart disease Advanced directives, counseling/discussion Type 2 diabetes mellitus with peripheral artery disease ([facility]) 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- dominant side ([facility]) S/P femoral-femoral bypass surgery History of cardiac arrest Lactic acidosis Transaminitis Encephalopathy acute Pathological fracture of vertebra due to osteoporosis with routine healing, subsequent encounter S/P AKA (above knee amputation), left ([facility]) Status post below-knee amputation of left lower extremity ([facility]) Pre-ulcerative corn or callous Ischemic rest pain of lower extremity Ulcer of right foot, limited to breakdown of skin ([facility]) Dependent rubor Atherosclerosis of [place] artery of extremity ([facility]) Current Outpatient Medications Medication Sig [...] and periorbital edema Nitroglycerin Hypotension Penicillins Nausea/vomiting [place] Hives Propoxyphene Edema face/lips/tongue and Hives Past Medical History: Diagnosis Date Asthma, allergic Benign neoplasm of colon 01/2009 3 mm tubular adenoma in sigmoid, f/u colonoscopy in 5 yrs BMI 32.0-32.9,adult Calculus of kidney spontanteous passage Cardiac arrest (HCC) 11/04/2022 history Carotid artery stenosis, asymptomatic left Carotid Stenosis, infarct w/in 8 wks 08/20/2008 Cellulitis of right foot 07/02/2019 [facility] for severe pain, cellulitis right foot Cerebrovascular Dz, 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 Pt with hx of embolic stroke. L hemiplegia Chronic ischemic heart disease Contusion of hand, right 05/21/2016 Coronary atherosclerosis of [place] coronary artery DM type 2, goal A1c below 7 1994 after being on steroids for a while Fracture of three ribs on left side 02/25/2015 left 3,4,5 Generalized anxiety disorder Generalized osteoarthritis Hidradenitis had skin grafts under both arms by Dr Burrell Hyperlipidemia LDL goal < 70 Hypoxia 02/28/2015 [place], related to hypoventilation from rib fx pain Intracerebral hemorrhage (HCC) 07/03/2008 Need for hepatitis C screening test 08/08/2014 negative Obesity, BMI not known used to weigh 280 Old myocardial infarct x 2 with stent placement OTHER LATE EFFECTS CEREBROVASCULAR DISEASE 07/03/2008 RSD upper limb left arm Scabies 06/07/2017 Treated in [place] ER. Senile osteoporosis 07/03/2018 high risk Shock [...] performed by Nnamdi King MD at OR [facility] ANKLE-BRACHIAL INDEX (CARDIOLOGY) Bilateral 11/03/2018 left 1.0, right 0.32 ANKLE-BRACHIAL INDEX (CARDIOLOGY) Bilateral 12/29/2018 Right 0.73, left 0.9 AORTOGRAM ABDOMINAL-TECH ONLY 04/14/2022 IMAGING SUPERVISION & INTERPRETATION ABDOMINAL AO performed by Nnamdi King MD at [facility] APPENDECTOMY W/OTHER PROCEDURE CARDIAC ANGIOPLASTY, PERCUTANEOUS, 1 ARTERY Bilateral 11/12/2022 PTCA, CARDIAC ANGIOPLASTY, PERCUTANEOUS, 1 ARTERY performed by Patrice Jose MD at CARDIAC LABS [facility] COLONOSCOPY THRU STOMA, W/BIOPSY 01/2009 adenomatous polyp, f/u colonoscopy in 5 yrs COLONOSCOPY, DIAGNOSTIC (RECTUM) 07/13/2018 poor prep, repeat 6 mo/COLONOSCOPY FLEXIBLE PROXIMAL DIAGNOSTIC performed by Cassandra Hart MD at ENDOSCOPY [facility] COLONOSCOPY, DIAGNOSTIC (RECTUM) 09/27/2018 6 mm descending tubular adenoma, performed by Cassandra Hart MD at ENDOSCOPY [facility] COMPOSITE SKIN GRAFT b/l axilla, donor site b/l thighs CORONARY ANGIOGRAPHY W/LEFT HEART CATH N/A 11/10/2022 CORONARY ANGIOGRAPHY W/LEFT HEART CATH performed by Patrice Jose MD at CARDIAC LABS [facility] CT ABDOMEN/PELVIS 09/28/2016 no acute [...] by Cassandra Hart MD at ENDOSCOPY [facility] EGD, FLEXIBLE, DIAGNOSTIC 01/19/2019 gastric irritation on bx/[facility] EGD, FLEXIBLE, W/BIOPSY 09/27/2018 1 cm salmon colored mucosa suggestive of short segment Pendleton's, mild erythema antrum FEM/POP ARTERY REVASC W/ STENT+ANGIOPLASTY Right 07/18/2023 FEM/POP ARTERY REVASC W/ STENT+ANGIOPLASTY performed by Nnamdi King MD at OR [facility] FEM/POP ARTERY REVASC W/ANGIOPLASTY Left 04/14/2022 FEM/POP ARTERY REVASC W/ANGIOPLASTY performed by Nnamdi King MD at OR [facility] FEM/POP ARTERY REVASC W/ANGIOPLASTY Right 09/23/2022 FEM/POP ARTERY REVASC W/ANGIOPLASTY performed by Nnamdi King MD at OR [facility] FEM/POP ARTERY REVASC W/ANGIOPLASTY Left 07/18/2023 FEM/POP ARTERY REVASC W/ANGIOPLASTY performed by Nnamdi King MD at OR [facility] ILIAC ART. REVASCULARIZATION W/ANGIOPLASTY Left 09/23/2022 ILIAC ARTERY REVASCULARIZATION W/ANGIOPLASTY performed by Nnamdi King MD at OR [facility] IOF [facility] CAROTID DUPLEX, BILATERAL 12/06/2012 Right carotid artery duplex examination indicates evidence of a less than 50% stenosis of the internal carotid artery. IR ARTERIOGRAM EXTREMITY BILATERAL 04/14/2022 ANGIOGRAPHY EXTREMITY BILATERAL performed by Nnamdi King MD at OR [facility] IR ARTERIOGRAM EXTREMITY BILATERAL N/A 09/23/2022 ANGIOGRAPHY EXTREMITY BILATERAL performed by Nnamdi King MD at OR [facility] IR ARTERIOGRAM EXTREMITY BILATERAL N/A 07/18/2023 ANGIOGRAPHY EXTREMITY BILATERAL performed by Nnamdi King MD at OR [facility] IR STENT PLACEMENT, INITIAL ARTERY N/A 04/14/2022 NON LOWER EXTREMITY OR CAROTID STENT REVASCULARIZATION WITH RADIOLOGIC SUPERVISION AND INTERPRETATION performed by Nnamdi King MD at OR [facility] MAMMOGRAM SCREENING BILATERAL Bilateral 08/20/2014 [...] performed by Nnamdi King MD at OR [facility] NEG PRESSURE WOUND THERAPY DME </= 50 SQ CM N/A 11/16/2022 NEGATIVE PRESSURE WOUND THERAPY LESS THAN 50SQ CM performed by Nnamdi King MD at OR [facility] NM HEPATOBILIARY SYSTEM WITH PHARMACOLOGIC INTERVENTION 10/18/2018 normal hepatic scan with normal GE ejection fraction PARTIAL AMPUTATION OF TOE Right 11/04/2022 AMPUTATION TOE INTERPHALANGEAL JOINT performed by Nnamdi King MD at OR [facility] PARTIAL HYSTERECTOMY PFT/BA BRONCHODILATOR N/A 03/11/2021 probably normal PFT with some airway reversibility PLACE INTRACORONARY STENT, FIRST VS [id number] REMOVE CATARACT, INSERT LENS PROSTH Left 01/27/2017 Dr Gunter REPAIR OF BLADDER NECK 1994 Dr Montesinos/needed redone due to infection SUBQ DEBRIDEMENT, FIRST 20 CM2 N/A 11/04/2022 DEBRIDEMENT SKIN AND SUBCUTANEOUS TISSUE performed by Nnamdi King MD at OR [facility] SUBQ DEBRIDEMENT, FIRST 20 CM2 N/A 11/16/2022 DEBRIDEMENT SKIN AND SUBCUTANEOUS TISSUE performed by Nnamdi King MD at OR [facility] SYNTH BYPASS, FEM-FEM 2004 fem-fem bypass, [place] THROMBOENDARECTOMY W/PATCH,NECK INCISION [id number] right CEA, [place] THROMBOENDARECTOMY W/PATCH,NECK INCISION 08/19/2008 right redo eversion carotid endarterectomy /Dr. 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 Status post below-knee amputation of left lower extremity ([facility]) - DURABLE MEDICAL EQUIPMENT Type 2 diabetes mellitus with hemoglobin A1c goal of less than 8.0% ([facility]) Plan - VS reviewed and [...] DME for crutches has home PT and car varnisher to help with use - follow up with [facility] tomorrow / to bring Dexcom with [...] Hitchcock LPN - 09/06/2023 9:36 AM EDT [facility] follow up Trelegy was stopped. C/o feeling sick. Large brusing area on abdomen. C/o having a lump there also. documented in this encounter Plan of Treatment Upcoming Encounters Date Type Department Care Team (Latest Contact Info) Description 09/07/2023 1:10 PM EDT Office Visit Pharmacy, [address] [place] [address] [place] [address] 09/27/2023 9:40 AM EDT Office Visit Family Medicine [address] [place] [phone] Courtney Restrepo MD [address] [place] [address] [place] [address] 10/10/2023 4:00 PM EDT Office Visit Nephrology, [address] [place] [address] Charla Potter MD [address] [place] [address] 10/12/2023 11:00 AM EDT Office Visit Cardiology, [facility] [place] [address] [place] [address] Frantz Herrera MD [address] [place] [address] 12/07/2023 9:20 AM EDT Office Visit Family Medicine [address] [place] [phone] Courtney Restrepo MD [address] [place] [address] [place] [address] 01/17/2024 10:00 AM EST Hospital Encounter ENDO [facility], Endoscopy Room [facility] [address] [place] [phone] Cassandra Hart MD [address] [place] [address] 01/17/2024 10:00 AM EST - 01/17/2024 10:30 AM EST Surgery ENDO [facility], Endoscopy Room [facility] [address] [place] [phone] Cassandra Hart MD [address] [place] [address] ESOPHAGOGASTRODUODENOSCOPY (EGD), FLEXIBLE, TRANSORAL, DIAGNOSTIC 01/25/2024 10:30 AM EST Imaging Vascular Lab, [address] [place] [address] 01/25/2024 11:30 AM EST Imaging Vascular Lab, [address] [place] [address] 02/01/2024 11:30 AM EST Office Visit Vascular Surgery, [address] [place] [address] Nnamdi King MD [address] [facility] [place] [address] 02/08/2024 11:00 AM EST Imaging Radiology, [address] [place] [address] 02/17/2024 10:00 AM EST Office Visit Rheumatology [address] [place] [phone] Marshall Romano MD [facility] [place] [address] Pending Results Name Type Priority Associated Diagnoses [...] Comments DISCUSS TOBACCO CESSATION (REFER TO SMARTSET #2385) 1949 Cologuard 1994 Fecal Occult Blood Test [...] D LEVEL ONCE IN A LIFETIME-USE SMARTSET# 17225 Completed 10/16/2021, 12/27/2018 Alpha-1 Antitrypsin Discontinued GARDASIL-HPV [...] encounter Medical Devices Implanted Type Area Manager Employment Device Identifier Shelf Expiration Date Model / Serial / Lot Stent Graft Icast [id number] - [id number] - [id number] Implanted:Qty : 1 on 04/14/2022 by Nnamdi King MD at OR [facility] N/A: Mesenteric Artery GETINGE : MAQUET [id number] 02/21/2023 [id number] / [id number] / [id number] Description:implanted in SMA Stent Howie 3.0x15 Rx - [id number] Implanted:Qty : 1 on 11/12/2022 by Patrice Jose MD at CARDIAC LABS [facility] MEDTRONIC : VASCULAR [id number] 11/28/2023 [id number] / / [id number] Stent R2p Misago 6fr [id number] - [id number] Implanted:Qty : 1 on 07/18/2023 by Nnamdi Kign MD at OR [facility] Right: [facility] : CARDIO SYS [id number] 09/11/2023 [id number] / / [id number] documented as of this encounter Visit Diagnoses [...] the patient have Health Care Power of Tattoo Technician? Yes, in chart and reviewed as [...] patient or by statute hierarchy) Care Teams Ammonia Box Operator Relationship Specialty Start Date End Date Courtney Restrepo MD [address] [place] [address] [place] [id number] PCP - General Family Medicine 10/17/19 documented as of this encounter
--- OUTSIDE RECORDS SUMMARY | 2023-10-07 20:38 | External Medical Summary | Summary of Care ---
Author Name Unknown Organization [facility] Address [address] [place] [address] Phone [phone] Care Team Providers Care Photovoltaic Subcontractor Name Role Phone Courtney Restrepo MD Primary Care Prov ider Encounter Details Date Type Department Care Team (Late st Contact Info) Description 09/01/2023 Orders Only Family Medicine [address] [phone] Courtney Restrepo MD [address] [place] [address] [place] [address] Allergies Active Allergy Reactions [...] edema Nitroglycerin Hypotension 12/20/2018 Penicillins Nausea/vomiting 05/17/2007 [place] Hives 10/02/2018 Propoxyphene Edema face/lips/tongue,Hiv es 06/26/2009 documented as of this encounter (statuses as of 09/01/2023) Medications Medication Sig Dispensed Refills Start Date End Date Status busPIRone HCl 15 MG Oral Tablet (Buspar)Indications: Anxiety TAKE ONE TABLET TWICE DAILY 180 Tablet 1 10/15/2022 Active DULoxetine HCl 30 MG Oral Capsule Delayed Release Particles (Cymbalta)Indication s:Chronic midline thoracic back pain,Generalized anxiety disorder Take 1 Capsule by mouth in the morning and 1 Capsule before bedtime. 180 Capsule 2 10/15/2022 Active Familio Delica Lancets 30GIndications:Type 2 diabetes mellitus with hemoglobin A1c goal of less than 8.0% ([facility]) Use to test glucose daily. E11.9 100 Each 5 11/29/2022 Active TravelAITouch Verio w/Device KitIndications:Type 2 diabetes mellitus with hemoglobin A1c goal of less than 8.0% ([facility]) Use to test glucose daily. [...] less than 8.0% ([facility]) Units as per sliding scale 3 mL 3 02/04/2023 Active Additional Information Patient taking differently: Units as per sliding scale 4-6 units at lunch, Informant: Patient, Reported on 08/25/2023 Insulin Glargine Solostar 100 UNIT/ML Subcutaneous Solution Pen-injector (Lantus SoloStar)Indications :Type 2 diabetes mellitus with hemoglobin A1c goal of less than 8.0% ([facility]) Inject 10 Units under the [...] 20 MG Oral Tablet (Lasix)Indications:A therosclerosis of [place] artery of left lower extremity with rest [...] as of this encounter (statuses as of 09/01/2023) Active Problems Problem Noted Date Diagnosed Date Ischemic rest pain of lower extremity 07/14/2023 Ulcer of right foot, limited to breakdown of ski n 07/14/2023 Dependent rubor 07/14/2023 Atherosclerosis of [place] artery of extremity Pre-ulcerative corn or callous [...] rinse after steroid. Test performed by Bibiana BIODIESEL ENGINE SPECIALIST CPFT [place] (myocardial infarction) 02/21/2019 Bilateral [...] osteoporosis 07/03/2018 Reactive depression 11/17/2017 Atherosclerosis of [place] co ronary artery of [place] heart without angina pectoris 07/22/2015 Overview: Single [...] rinse after steroid. Test performed by Bibiana BIODIESEL ENGINE SPECIALIST CPFT GENERAL OSTEOARTHROSIS BMI 32.0-32.9,adult Tobacco use disorder Hyperlipidemia with target LDL less than 70 Overview: ICD-10 update of inactive term RSD upper limb Overview: left arm Generalized anxiety disorder documented as of this encounter (statuses as of 09/01/2023) Resolved Problems Problem Noted Date Diagnosed Date [...] ISCHEMIC HRT DIS NOS Coronary atherosclerosis of [place] coronary artery 11/24/2016 Tobacco abuse 11/17/2017 documented as of this encounter (statuses as of 09/01/2023) Immunizations Name Administration Dates Next Due COVID-19 [...] 09/07/2023 1:10 PM EDT Office Visit Pharmacy, [address] [place] [address] [place] [address] 09/27/2023 9:40 AM EDT Office Visit Family Medicine [address] [place] [phone] Courtney Restrepo MD [address] [place] [address] [place] [address] 10/10/2023 4:00 PM EDT Office Visit Nephrology, [facility] [address] [place] [address] Charla Potter MD [address] [facility] [place] [address] 10/12/2023 11:00 AM EDT Office Visit Cardiology, [facility] [address] [place] [address] Frantz Herrera MD [address] [place] [address], [place] [address] 12/07/2023 9:20 AM EDT Office Visit Family Medicine [address] [place] [phone] Courtney Restrepo MD [address] [place] [address] [place] [address] 01/17/2024 10:00 AM EST Hospital Encounter ENDO [facility], Endoscopy Room [facility] [address] [place] [phone] Cassandra Hart MD [address] [place] [address] 01/17/2024 10:00 AM EST - 01/17/2024 10:30 AM EST Surgery ENDO [facility], Endoscopy Room [facility] [address] [place] [phone] Cassandra Hart MD [address] [place] [address] ESOPHAGOGASTRODUODENOSCOPY (EGD), FLEXIBLE, TRANSORAL, DIAGNOSTIC 01/25/2024 10:30 AM EST Imaging Vascular Lab, [address] [place] [address] 01/25/2024 11:30 AM EST Imaging Vascular Lab, [address] [facility] [place] [address] [place] [address] 02/01/2024 11:30 AM EST Office Visit Vascular Surgery, [facility] [address] [place] [address] Nnamdi King MD [address] [place] [address] 02/08/2024 11:00 AM EST Imaging Radiology, [place] [address] [employer] [place] [address] 02/17/2024 10:00 AM EST Office Visit Rheumatology [address] [place] [phone] Marshall Romano MD [facility] [place] [address] Scheduled Procedures Name Priority Associated Diagnoses Date/Ti me ESOPHAGOGASTRODUODENOSCOPY ( EGD), FLEXIBLE, TRANSORAL, DIAGNOSTIC 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 01/17/2024 10:00 AM EST ESOPHAGOGASTRODUODENOSCOPY ( EGD), FLEXIBLE, TRANSORAL, DIAGNOSTIC Recall Pendleton's esophagus Health Maintenance Due Date Last Done Comments DISCUSS TOBACCO CESSATION (REFER TO SMARTSET #0737) 1949 Cologuard 1994 Fecal Occult Blood Test [...] D LEVEL ONCE IN A LIFETIME-USE SMARTSET# 58464 Completed 10/16/2021, 12/27/2018 Alpha-1 Antitrypsin Discontinued GARDASIL-HPV [...] this encounter Medical Devices Implanted Type Area End Packer Device Identifier Shelf Expiration Date Model / Serial / Lot Stent Graft Icast [id number] - [id number] - [id number] Implanted:Qty : 1 on 04/14/2022 by Nnamdi King MD at OR [facility] N/A: Mesenteric Artery GETINGE : VITOR [id number] 02/21/2023 [id number] / [id number] / [id number] Description:implanted in SMA Stent [place] 3.0x15 Rx - [id number] Implanted:Qty : 1 on 11/12/2022 by Patrice Jose MD at CARDIAC LABS [facility] [employer] : VASCULAR [id number] 11/28/2023 [id number] / / [id number] Stent R2p Misago 6fr [id number] - [id number] Implanted:Qty : 1 on 07/18/2023 by Nnamdi King MD at OR [facility] Right: [employer] : CARDIO SYS [id number] 09/11/2023 [id number] / / [id number] documented as of this encounter Procedures Procedure Name Priority Date/Time Associated Diagnosis Comments XR CHEST 2 VIEWS Routine 08/30/2023 documented in this encounter Results * XR CHEST 2 VIEWS (08/30/2023) Anatomical Region Laterality Modality Chest Other 08/30/2023 Marc Lindsay PA-C RADIOLOGY (RAD G ENERAL) documented in this encounter Advance Directives * [...] the patient have Health Care Power of Forestry Hunter? Yes, in chart and reviewed as current [...] patient or by statute hierarchy) Care Teams Photovoltaic Subcontractor Relationship Specialty Start Date End Date Courtney Restrepo MD [address] [place] [address] [place] [address] PCP - General Family Medicine 10/17/19 documented as of this encounter
--- OUTSIDE RECORDS SUMMARY | 2023-10-07 20:38 | External Medical Summary | Summary of Care ---
Author Name Unknown Organization [facility] Address [address] [place] [address] Phone [phone] Care Team Providers Care Road Advisor Name Role Phone Courtney Restrepo MD Primary Care Prov ider Reason for Visit * Reason Onset Date Comments Medication Management 08/25/2023 Encounter Details Date Type Department Care Team (Late st Contact Info) Description 08/25/2023 Telephone Family [address] [phone] Courtney Restrepo MD [address] [place] [address] [place] [address] Medication Management Allergies Active Allergy Reactions [...] Nitroglycerin Hypotension 12/20/2018 Penicillins Nausea/vomiting 05/17/2007 [place] Hives 10/02/2018 Propoxyphene Edema face/lips/tongue,Hiv es 06/26/2009 documented as of this encounter (statuses as of 09/05/2023) Medications Medication Sig Dispensed Refills Start Date End Date Status busPIRone HCl 15 MG Oral Tablet (Buspar)Indications: Anxiety TAKE ONE TABLET TWICE DAILY 180 Tablet 1 10/15/2022 Active DULoxetine HCl 30 MG Oral Capsule Delayed Release Particles (Cymbalta)Indication s:Chronic midline thoracic back pain,Generalized anxiety disorder Take 1 Capsule by mouth in the morning and 1 Capsule before bedtime. 180 Capsule 2 10/15/2022 Active [email or web address] Delica Lancets 30GIndications:Type 2 diabetes mellitus with hemoglobin A1c goal of less than 8.0% (HCC) Use to test glucose daily. E11.9 100 Each 5 11/29/2022 Active [email or web address] Verio w/Device KitIndications:Type 2 diabetes mellitus with [...] 20 MG Oral Tablet (Lasix)Indications:A therosclerosis of [place] artery of left lower extremity with rest pain ([facility]),DM type 2 with diabetic peripheral neuropathy (HCC) [...] as of this encounter (statuses as of 09/05/2023) Active Problems Problem Noted Date Diagnosed Date Ischemic rest pain of lower extremity 07/14/2023 Ulcer of right foot, limited to breakdown of ski n 07/14/2023 Dependent rubor 07/14/2023 Atherosclerosis of [place] artery of extremity Pre-ulcerative corn or callous [...] rinse after steroid. Test performed by Bibiana ECOMMERCE ANALYST CPFT Old CA (myocardial infarction) 02/21/2019 Bilateral [...] osteoporosis 07/03/2018 Reactive depression 11/17/2017 Atherosclerosis of [place] co ronary artery of [place] heart without angina pectoris 07/22/2015 Overview: Single [...] rinse after steroid. Test performed by Bibiana ECOMMERCE ANALYST CPFT GENERAL OSTEOARTHROSIS BMI 32.0-32.9,adult Tobacco use disorder Hyperlipidemia with target LDL less than 70 Overview: ICD-10 update of inactive term RSD upper limb Overview: left arm Generalized anxiety disorder documented as of this encounter (statuses as of 09/05/2023) Resolved Problems Problem Noted Date Diagnosed Date [...] ISCHEMIC HRT DIS NOS Coronary atherosclerosis of [place] coronary artery 11/24/2016 Tobacco abuse 11/17/2017 documented as of this encounter (statuses as of 09/05/2023) Immunizations Name Administration Dates Next Due COVID-19 [...] thoughts. * Telephone Encounter - Zenia Goldberg [facility] - 08/29/2023 12:03 PM EDT Recently placed CGM (Dexcom) on patient to better assess blood sugars as I have not yet saw any readings. Scheduled for first Dexcom download on 09/06. Zenia Goldberg [facility], PharmD Clinical Pharmacist - Physician Scientist Medication Therapy [facility] 08/29/2023, 12:03 PM [phone] * Telephone Encounter - Margret Potts OSA [...] she just got done [facility] for a medication review. States that [...] Description 09/06/2023 9:40 AM EDT Office Visit [address] [place] [phone] Eben Obregon CRNP [address] [place] [address] [place] [address] 09/07/2023 1:10 PM EDT Office Visit Pharmacy, [address] [place] [address] [place] [address] 09/27/2023 9:40 AM EDT Office Visit [address] [place] [phone] Courtney Restrepo MD [address] [place] [address] [place] [address] 10/10/2023 4:00 PM EDT Office Visit Nephrology, [facility] [address] [facility] [place] [address] Charla Potter MD [address] [place] [address] [place] [id number] 10/12/2023 11:00 AM EDT Office Visit Cardiology, [facility] [address] [facility] [place] [address] Frantz Herrera MD [address] [place] [address] 12/07/2023 9:20 AM EDT Office Visit Family Medicine [address] [place] [phone] Courtney Restrepo MD [address] [place] [address] [place] [address] 01/17/2024 10:00 AM EST Hospital Encounter ENDO [facility], Endoscopy Room [facility] [address] [place] [phone] Cassandra Hart MD [address] [place] [address] 01/17/2024 10:00 AM EST - 01/17/2024 10:30 AM EST Surgery ENDO [facility], Endoscopy Room [facility] [address] [place] [phone] Cassandra Hart MD [address] [place] [address] ESOPHAGOGASTRODUODENOSCOPY (EGD), FLEXIBLE, TRANSORAL, DIAGNOSTIC 01/25/2024 10:30 AM EST Imaging Vascular Lab, [facility] [address] [facility] [place] [address] 01/25/2024 11:30 AM EST Imaging Vascular Lab, [facility] [place] [address] 02/01/2024 11:30 AM EST Office Visit Vascular Surgery, [facility] [address] [place] [address] Nnamdi King MD [address] [facility] [place] [address] 02/08/2024 11:00 AM EST Imaging Radiology, [facility] [address] [place] [address] 02/17/2024 10:00 AM EST Office Visit Rheumatology [address] [place] [phone] Marshall Romano MD [address] [place] [address] Scheduled Procedures Name Priority Associated Diagnoses Date/Ti me ESOPHAGOGASTRODUODENOSCOPY ( EGD), FLEXIBLE, TRANSORAL, DIAGNOSTIC 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 01/17/2024 10:00 AM EST ESOPHAGOGASTRODUODENOSCOPY ( EGD), FLEXIBLE, TRANSORAL, DIAGNOSTIC Recall Pendleton's esophagus Health Maintenance Due Date Last Done Comments DISCUSS TOBACCO CESSATION (REFER TO SMARTSET #2986) 1949 Cologuard 1994 Fecal Occult Blood Test [...] Additional history exists Mammogram 05/19/2024 05/20/2023, 0 10/2023, 03/19/2021, Additional history exists GFR 06/14/2024 [...] D LEVEL ONCE IN A LIFETIME-USE SMARTSET# [id number] Completed 10/16/2021, 12/27/2018 Alpha-1 Antitrypsin Discontinued GARDASIL-HPV [...] encounter Medical Devices Implanted Type Area Security Installer Device Identifier Shelf Expiration Date Model / Serial / Lot Stent Graft Icast [id number] - [id number] - [id number] Implanted:Qty : 1 on 04/14/2022 by Nnamdi King MD at [place] [facility] N/A: Mesenteric Artery GETINGE : VITOR [id number] 02/21/2023 [id number] / [id number] / [id number] Description:implanted in SMA Stent Howie 3.0x15 Rx - [id number] Implanted:Qty : 1 on 11/12/2022 by Patrice Jose MD at [facility] MEDTRONIC : VASCULAR [id number] 11/28/2023 [id number] / / [id number] Stent R2p Misago 6fr [id number] - [id number] Implanted:Qty : 1 on 07/18/2023 by Nnamdi King MD at OR [facility] Right: [facility] : CARDIO SYS [id number] 09/11/2023 [id number] / / [id number] documented as of this encounter Advance Directives [...] the patient have Health Care Power of System Administration Manager? Yes, in chart and reviewed as [...] patient or by statute hierarchy) Care Teams Road Advisor Relationship Specialty Start Date End Date Courtney Restrepo MD [address] [place] [address] [place] [address] PCP - General Family Medicine 10/17/19 documented as of this encounter
--- OUTSIDE RECORDS SUMMARY | 2023-10-07 20:38 | External Medical Summary ---
Author Name Unknown Address Unknown Organization K01:[place] [facility] [place] [address] [place] [address] Laboratory Report Ordering Provider Test Date Status TERRIE BARTHOLOMEW 09/06/2023 10:32:19 Final Observation Date Value Abnormality Reference (Units ) Status MYCODE SPECIMEN-SST 09/06/2023 10:32:19 Freezing of extracted DNA, whole blood and/or serum. Final Performing Location [facility] [place] [address] [facility] [address]
--- OUTSIDE RECORDS SUMMARY | 2023-10-07 20:38 | External Medical Summary ---
Author Name Unknown Address Unknown Organization K01[place] [facility] [place] [address] [facility] [address] [facility] [address] Laboratory Report Ordering Provider Test Date Status GAURAV BARNARD 09/06/2023 10:32:19 Final Observation Date Value Abnormality Reference (Units ) Status Ferritin 09/06/2023 10:32:19 133 13-150 (ng /mL) Final Postmenopausal women have hi gher ferritin levels than pre-menopausal women. The above reference interval is based on pre-menopausal women. Performing Location LABORATORY C - [address] [facility] [address]
--- OUTSIDE RECORDS SUMMARY | 2023-10-07 20:38 | External Medical Summary | Summary of Care ---
Author Name Unknown Organization [facility] Address [address] [place] [address] Phone [phone] Care Team Providers Care Heat Treater Head Name Role Phone Courtney Restrepo MD Primary Care Prov ider Reason for Visit * Reason Comments Outpatient Testing Encounter Details Date Type Department Care Team (Late st Contact Info) Description 09/06/2023 10:40 AM EDT Laboratory Laboratory [address] [place] [phone] [place] [address] [employer] Other*[id number]; 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); Hospital discharge follow-up Allergies Active Allergy Reactions [...] edema Nitroglycerin Hypotension 12/20/2018 Penicillins Nausea/vomiting 05/17/2007 [place] Hives 10/02/2018 Propoxyphene Edema face/lips/tongue,Hiv es 06/26/2009 [...] before bedtime. 180 Capsule 2 10/15/2022 Active Payment pluginTouch Delica Lancets 30GIndications:Type 2 diabetes mellitus with [...] 20 MG Oral Tablet (Lasix)Indications:A therosclerosis of [place] artery of left lower extremity with rest [...] ns:COPD, group D, by GOLD 2017 classification ([facility]) Inhale 2 Puffs by mouth in the morning and 2 Puffs before bedtime. 10.2 g 5 09/06/2023 Active documented as of this encounter (statuses as of 09/06/2023) Active Problems Problem Noted Date Diagnosed Date Ischemic rest pain of lower extremity 07/14/2023 Ulcer of right foot, limited to breakdown of ski n 07/14/2023 Dependent rubor 07/14/2023 Atherosclerosis of [place] artery of extremity Pre-ulcerative corn or callous [...] rinse after steroid. Test performed by Bibiana TECHNOLOGY SERVICES MANAGER CPFT Old [place] (myocardial infarction) 02/21/2019 Bilateral [...] osteoporosis 07/03/2018 Reactive depression 11/17/2017 Atherosclerosis of [place] co ronary artery of [place] heart without angina pectoris 07/22/2015 Overview: Single [...] rinse after steroid. Test performed by Bibiana TECHNOLOGY SERVICES MANAGER CPFT GENERAL OSTEOARTHROSIS BMI 32.0-32.9,adult Tobacco [...] ISCHEMIC HRT DIS NOS Coronary atherosclerosis of [place] coronary artery 11/24/2016 Tobacco abuse 11/17/2017 documented [...] 09/07/2023 1:10 PM EDT Office Visit Pharmacy, [address] [place] [address] [place] [address] 09/27/2023 9:40 AM EDT Office Visit Family Medicine [address] [place] [phone] Courtney Restrepo MD [address] [place] [address] [place] [address] 10/10/2023 4:00 PM EDT Office Visit Nephrology, [facility] [address] [place] [address] Charla Potter MD [address] [place] [address] 10/12/2023 11:00 AM EDT Office Visit Cardiology, [facility] [address] [place] [address] Frantz Herrera MD [address] [place] [address], [place] [address] 12/07/2023 9:20 AM EDT Office Visit [address] [phone] Courtney Restrepo MD [address] [place] [address] [place] [address] 01/17/2024 10:00 AM EST Hospital Encounter ENDO [facility], Endoscopy Room [facility] [address] [place] [phone] Cassandra Hart MD [address] [place] [address] 01/17/2024 10:00 AM EST - 01/17/2024 10:30 AM EST Surgery ENDO [facility], Endoscopy Room [facility] [address] [place] [phone] Cassandra Hart MD [address] [place] [address] ESOPHAGOGASTRODUODENOSCOPY (EGD), FLEXIBLE, TRANSORAL, DIAGNOSTIC 01/25/2024 10:30 AM EST Imaging Vascular Lab, [facility] [address] [place] [address] 01/25/2024 11:30 AM EST Imaging Vascular Lab, [facility] [address] [place] [address] 02/01/2024 11:30 AM EST Office Visit Vascular Surgery, [address] [place] [address] Nnamdi King MD [address] [place] [address] 02/08/2024 11:00 AM EST Imaging Radiology, [address] [place] [address] 02/17/2024 10:00 AM EST Office Visit Rheumatology [address] [place] [phone] Marshall Romano MD [facility] [place] [address] Pending Results Name Type Priority Associated Diagnoses Date /Time MYCODE SUBSEQUENT ADULT Lab Routine MyCode Research Other*[id number] 09/06/2023 10:32 AM EDT HEMOGLOBIN A1C Lab Routine 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) 09/06/2023 10:32 AM EDT BASIC METABOLIC PANEL Lab Routine 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) 09/06/2023 10:32 AM EDT CBC WITH WBC DIFFERENTIAL AND ANEMIA REFLEX WORKUP Lab Routine Hospital discharge follow-up 09/06/2023 10:32 AM EDT MAGNESIUM Lab Routine Hospital discharge follow-up 09/06/2023 10:32 AM EDT MYCODE SST1 Lab Routine [employer] Other*[id number] 09/06/2023 10:32 AM EDT MYCODE SST2 Lab Routine [employer] Other*[id number] 09/06/2023 10:32 AM EDT ANEMIA CBC Lab Routine Hospital discharge follow-up 09/06/2023 10:32 AM EDT DIFFERENTIAL, AUTOMATED Lab Routine Hospital discharge follow-up 09/06/2023 10:32 AM EDT ANEMIA REFLEX CHEMISTRY HOLD Lab Routine Hospital discharge follow-up 09/06/2023 10:32 AM EDT Scheduled Procedures Name Priority Associated Diagnoses Date/Ti me ESOPHAGOGASTRODUODENOSCOPY ( EGD), FLEXIBLE, TRANSORAL, DIAGNOSTIC 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 01/17/2024 10:00 AM EST ESOPHAGOGASTRODUODENOSCOPY ( EGD), FLEXIBLE, TRANSORAL, DIAGNOSTIC Recall Pendleton's esophagus Health Maintenance Due Date Last Done Comments DISCUSS TOBACCO CESSATION (REFER TO SMARTSET #0575) 1950 Cologuard 1994 Fecal Occult Blood Test [...] 05/20/2023, 030 10/2023, 03/19/2021, Additional history exists GFR 06/14/2024 [...] D LEVEL ONCE IN A LIFETIME-USE SMARTSET# [id number] Completed 10/16/2021, 12/27/2018 Alpha-1 Antitrypsin Discontinued GARDASIL-HPV [...] this encounter Medical Devices Implanted Type Area Custom Protection Officer Device Identifier Shelf Expiration Date Model / Serial / Lot Stent Graft Icast [id number] - [id number] - [id number] Implanted:Qty : 1 on 04/14/2022 by Nnamdi King MD at [place] [facility] N/A: Mesenteric Artery GETINGE : YOELT [id number] 02/21/2023 [id number] / [id number] / [id number] Description:implanted in SMA Stent Howie 3.0x15 Rx - [id number] Implanted:Qty : 1 on 11/12/2022 by Patrice Jose MD at [facility] MEDTRONIC : VASCULAR [id number] 11/28/2023 [id number] / / [id number] Stent R2p Misago 6fr [id number] - [id number] Implanted:Qty : 1 on 07/18/2023 by Nnamdi King MD at OR [facility] Right: [facility] : CARDIO SYS [id number] 09/11/2023 [id number] / / [id number] documented as of this encounter Visit Diagnoses Diagnosis My[employer] Research Other*[id number] 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) Type II or unspecified type diabetes mellitus with peripheral circulatory disorders, not stated as uncontrolled Hospital discharge follow-up Other follow-up examination 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 Yes, in chart and reviewed as current [...] patient or by statute hierarchy) Care Teams Heat Treater Head Relationship Specialty Start Date End Date Courtney Restrepo MD [address] [place] [address] [place] [phone] PCP - General Family Medicine 10/17/19 documented as of this encounter
--- OUTSIDE RECORDS SUMMARY | 2023-10-07 20:38 | External Medical Summary | Summary of Care ---
Author Name Unknown Organization [facility] Address [address] [place] [address] Phone [phone] Care Team Providers Care Life Skills Educator Name Role Phone Courtney Restrepo MD Primary Care Prov ider Encounter Details Date Type Department Care Team (Late st Contact Info) Description 09/02/2023 Population Health External Data Unspecified Department Allergies [...] edema Nitroglycerin Hypotension 12/20/2018 Penicillins Nausea/vomiting 05/17/2007 [place] Hives 10/02/2018 Propoxyphene Edema face/lips/tongue,Hiv es 06/26/2009 documented as of this encounter (statuses as of 09/02/2023) Medications Medication Sig Dispensed Refills Start Date [...] 20 MG Oral Tablet (Lasix)Indications:A therosclerosis of [place] artery of left lower extremity with rest [...] as of this encounter (statuses as of 09/02/2023) Active Problems Problem Noted Date Diagnosed Date Ischemic rest pain of lower extremity 07/14/2023 Ulcer of right foot, limited to breakdown of ski n 07/14/2023 Dependent rubor 07/14/2023 Atherosclerosis of [place] artery of extremity Pre-ulcerative corn or callous [...] rinse after steroid. Test performed by Bibiana CUSTOMER SERVICE SUPERVISOR CPFT Old [place] (myocardial infarction) 02/21/2019 Bilateral [...] osteoporosis 07/03/2018 Reactive depression 11/17/2017 Atherosclerosis of [place] co ronary artery of [place] heart without angina pectoris 07/22/2015 Overview: Single [...] rinse after steroid. Test performed by Bibiana CUSTOMER SERVICE SUPERVISOR CPFT GENERAL OSTEOARTHROSIS BMI 32.0-32.9,adult Tobacco use disorder Hyperlipidemia with target LDL less than 70 Overview: ICD-10 update of inactive term RSD upper limb Overview: left arm Generalized anxiety disorder documented as of this encounter (statuses as of 09/02/2023) Resolved Problems Problem Noted Date Diagnosed Date [...] ISCHEMIC HRT DIS NOS Coronary atherosclerosis of [place] coronary artery 11/24/2016 Tobacco abuse 11/17/2017 documented as of this encounter (statuses as of 09/02/2023) Immunizations Name Administration Dates Next Due COVID-19 [...] 09/07/2023 1:10 PM EDT Office Visit Pharmacy, [address] [place] [address] [place] [address] 09/27/2023 9:40 AM EDT Office Visit Family Medicine [address] [place] [phone] Courtney Restrepo MD [address] [place] [address] [place] [address] 10/10/2023 4:00 PM EDT Office Visit Nephrology, [address] [place] [address] Charla Potter MD [address] [place] [address] [place] [phone] 10/12/2023 11:00 AM EDT Office Visit Cardiology, [facility] [address] [place] [address] Frantz Herrera MD [address] [facility], [place] [address] 12/07/2023 9:20 AM EDT Office Visit Family Medicine [address] [phone] Courtney Restrepo MD [address] [place] [address] [place] [address] 01/17/2024 10:00 AM EST Hospital Encounter ENDO [facility], Endoscopy Room [facility] [address] [place] [phone] Cassandra Hart MD [address] [place] [address] 01/17/2024 10:00 AM EST - 01/17/2024 10:30 AM EST Surgery ENDO [facility], Endoscopy Room [facility] [address] [place] [phone] Cassandra Hart MD [address] [place] [address] ESOPHAGOGASTRODUODENOSCOPY (EGD), FLEXIBLE, TRANSORAL, DIAGNOSTIC 01/25/2024 10:30 AM EST Imaging Vascular Lab, [facility], [place] [address] [place] [address] 01/25/2024 11:30 AM EST Imaging Vascular Lab, [facility], [place] [address] [place] [address] 02/01/2024 11:30 AM EST Office Visit Vascular Surgery, [facility] [address] [place] [address] Nnamdi King MD [address] [place], [place] [address] 02/08/2024 11:00 AM EST Imaging Radiology, [place] [address] [place] [address] 02/17/2024 10:00 AM EST Office Visit Rheumatology [address] [place] [phone] Marshall Romano MD [address] [place] [address] Scheduled Procedures Name Priority Associated Diagnoses Date/Ti [...] 03/19/2021, Additional history exists GFR 06/14/2024 06/15/2023, 0 04/2023, 06/13/2023, Additional history exists Depression Monitoring 06/21/2024 06/22/2023 O2 ASSESSMENT COMPLETED IN PAST YEAR FOR COPD 07/17/2024 07/18/2023 DTaP,Tdap,and Td Vaccines (4 - Td or Tdap) 10/17/2032 10/17/2022, 07/14/2021 (Declined), 07/27/2010 Pneumococcal Vaccine: 65+ Years Completed 10/27/2015, 08/08/2014, 05/30/2008 RETIRED - COLONOSCOPY-EVERY 5 YRS AGES 18-100 Discontinued 09/27/2018, 09/27/2018, 07/13/2018, Additional history exists VITAMIN D LEVEL ONCE IN A LIFETIME-USE SMARTSET# [id number] Completed 10/16/2021, 12/27/2018 Alpha-1 Antitrypsin Discontinued GARDASIL-HPV [...] this encounter Medical Devices Implanted Type Area Mental Health Tech Device Identifier Shelf Expiration Date Model / Serial / Lot Stent Graft Icast [id number] - [id number] - [id number] Implanted:Qty : 1 on 04/14/2022 by Nnamdi King MD at OR [facility] N/A: Mesenteric Artery GETINGE : YOELT [id number] 02/21/2023 [id number] / [id number] / [id number] Description:implanted in SMA Stent Howie 3.0x15 Rx - [id number] Implanted:Qty : 1 on 11/12/2022 by Patrice Jose MD at [facility]S [facility] [employer] : VASCULAR [id number] 11/28/2023 [id number] / / [id number] Stent R2p Misago 6fr [id number] - [id number] Implanted:Qty : 1 on 07/18/2023 by Nnamdi King MD at OR [facility] Right: [facility] : CARDIO SYS [id number] 09/11/2023 [id number] / / [id number] documented as of this encounter Advance Directives [...] the patient have Health Care Power of [place] Counselor? Yes, in chart and reviewed as current [...] patient or by statute hierarchy) Care Teams Life Skills Educator Relationship Specialty Start Date End Date Courtney Restrepo MD [address] [place] [address] [place] [address] PCP - General Family Medicine 10/17/19 documented as of this encounter
--- OUTSIDE RECORDS SUMMARY | 2023-10-07 20:38 | External Medical Summary ---
Author Name Unknown Address Unknown Organization K01:LABORATORY [facility] [place] - [address] [place] [address] Laboratory Report Ordering Provider Test Date Status DAVIDE BARNARDT 09/06/2023 10:32:19 Final Observation Date Value Abnormality Reference (Units ) Status Iron 09/06/2023 10:32:19 29 Below low normal 33-151 (ug/dL) Final Iron-binding capacity 09/06/2023 10:32:19 465 Above high normal 250-425 (ug/dL) Final Transferrin Sat % 09/06/2023 10:32:19 6 Below low normal 15-55 (%) Final Performing Location LABORATORY [facility] - [address] [place] [address]
--- OUTSIDE RECORDS SUMMARY | 2023-10-07 20:38 | External Medical Summary ---
Author Name Unknown Address Unknown Organization K01:[facility] [place] [address] [facility] [address] Laboratory Report Ordering Provider Test Date Status GAURAV BARNARD 09/06/2023 10:32:19 Final Observation Date Value Abnormality Reference (Units ) Status SYNC LEUKOCYTES IN BLOOD BY AUTOMATED COUNT 09/06/2023 10:32:19 10.93 Above high normal 4.00-10.80 (K/uL) Final Segs 09/06/2023 10:32:19 79.0 Above high normal 40.0-75.0 (%) Final Lymphs % 09/06/2023 10:32:19 10.6 Below low normal 18.0-42.0 (%) Final Monos 09/06/2023 10:32:19 6.7 1.0-11.0 (%) Final Eosinophils 09/06/2023 10:32:19 2.7 0.0-6.0 (%) Final Basos 09/06/2023 10:32:19 0.4 0.0-2.0 (%) Final Immature Granulocyte, Percent 09/06/2023 10:32:19 0.6 0.0-2.0 (%) Final Absolute Segs 09/06/2023 10:32:19 8.63 Above high normal 1.80-7.70 (K/uL) Final Lymphs, absolute 09/06/2023 10:32:19 1.16 1.00-4.80 (K/ul) Final Monos, Abs 09/06/2023 10:32:19 0.73 0.00-1.10 (K/uL) Final Eos, Abs 09/06/2023 10:32:19 0.30 0.00-0.70 (K/uL) Final Basos, Abs 09/06/2023 10:32:19 0.04 0.00-0.20 (K/uL) Final Immature Granulocytes, Number 09/06/2023 10:32:19 0.07 0.00-0.20 (K/uL) Final Performing Location [facility] [place] [facility] [address] [facility] [address]
--- OUTSIDE RECORDS SUMMARY | 2023-10-07 20:38 | External Medical Summary ---
Author Name Unknown Address Unknown Organization K01:[place] [facility] [address] [place] [id number] Laboratory Report Ordering Provider Test Date Status GAURAV BARNARD 09/06/2023 10:32:19 Final Observation Date Value Abnormality Reference (Units ) Status WBC, Total 09/06/2023 10:32:19 10.93 Above high normal 4 .00-10.80 (K/uL) Final RBC 09/06/2023 10:32:19 4.67 3.85-5.15 (M/uL) Final Hemoglobin 09/06/2023 10:32:19 11.9 Below low normal 12 .0-15.3 (g/dL) Final Anemia reflex testing trigge rs on a HGB < 12.0 for Females and HGB < 13.0 for Males in accordance with the WHO Anemia Guidelines
Anemia reflex testing triggers on a HGB < 12.0 for Females and HGB < 13.0 for Males in accordance with the WHO Anemia Guidelines HCT 09/06/2023 10:32:19 40.7 36.0-45.2 (%) Final MCV 09/06/2023 10:32:19 87.2 81.5-97.5 (fL) Final MCH 09/06/2023 10:32:19 25.5 27.0-34.0 (pg) Final MCHC 09/06/2023 10:32:19 29.2 32.0-36.0 (g/dL) Final RDW 09/06/2023 10:32:19 14.9 11.5-15.5 (%) Final Platelets 09/06/2023 10:32:19 422 Above hi gh normal 140-400 (K/uL) Final MPV 09/06/2023 10:32:19 10.9 6.6-11.1 ( fL) Final Nucleated erythrocytes/100 leukocytes [Ratio] in Blood by Automated count 09/06/2023 10:32:19 0 <=0 (/100 WBCs) Final Performing Location [place] [facility] [facility] [address] [facility] [address]
--- OUTSIDE RECORDS SUMMARY | 2023-10-07 20:38 | External Medical Summary ---
Author Name Unknown Address Unknown Organization K01:LABORATORY [facility] [place] - [address] [place] [address] Laboratory Report Ordering Provider Test Date Status TERRIE BARTHOLOMEW 09/06/2023 10:32:19 Final Observation Date Value Abnormality Reference (Units ) Status MYCODE SPECIMEN-SST 09/06/2023 10:32:19 Freezing of extracted DNA, whole blood and/or serum. Final Performing Location LABORATORY [facility] [place] - [address] [facility] [address]
--- OUTSIDE RECORDS SUMMARY | 2023-10-07 20:38 | External Medical Summary | Summary of Care ---
Author Name Unknown Organization [facility] Address [address] [place] [address] Phone [phone] Care Team Providers Care Supervisor Furnace Room Name Role Phone Courtney Restrepo MD Primary Care Prov ider Reason for Visit * Reason Onset Date Comments Hospital Follow-Up Hospital Follow-Up 09/06/2023 Encounter Details Date Type Department Care Team (Latest Contact Info) Description 09/06/2023 9:40 AM EDT Office Visit Family Medicine [address] [phone] Eben Obregon [address] [place] [address] Hospital discharge follow-up*; COPD, group D, by GOLD 2017 classification ([facility]); Status post below-knee amputation of left lower extremity ([facility]); Type 2 diabetes mellitus with hemoglobin A1c goal of less than 8.0% ([facility]) Allergies Active Allergy Reactions Criticality Noted Date [...] edema Nitroglycerin Hypotension 12/20/2018 Penicillins Nausea/vomiting 05/17/2007 [place] Hives 10/02/2018 Propoxyphene Edema face/lips/tongue,Hiv es 06/26/2009 [...] goal of less than 8.0% ([facility]) Test glucose once daily E11.9 100 [...] 20 MG Oral Tablet (Lasix)Indications: Atherosclerosis of [place] artery of left lower extremity with rest pain ([facility]),DM type 2 with diabetic peripheral neuropathy ([facility]) One daily 30 Tablet 5 4 Active [...] group D, by GOLD 2017 classification ([facility]) Inhale 2 Puffs by mouth in the morning and 2 Puffs before bedtime. 10.2 g 5 4 Active Trelegy Ellipta 100-62.5-25 MCG/ACT Aerosol Powder Breath ActivatedIndication s:COPD, group C, by GOLD 2017 classification ([facility]) Inhale 1 puff as directed once [...] n 07/14/2023 Dependent rubor 07/14/2023 Atherosclerosis of [place] artery of extremity Pre-ulcerative corn or callous [...] rinse after steroid. Test performed by Bibiana ESTIMATOR AND DRAFTER SUPERVISOR CPFT Old MS (myocardial infarction) 02/21/2019 Bilateral carotid artery stenosis [...] osteoporosis 07/03/2018 Reactive depression 11/17/2017 Atherosclerosis of [place] co ronary artery of [place] heart without angina pectoris 07/22/2015 Overview: Single [...] rinse after steroid. Test performed by Bibiana ESTIMATOR AND DRAFTER SUPERVISOR CPFT GENERAL OSTEOARTHROSIS BMI 32.0-32.9,adult Tobacco [...] ISCHEMIC HRT DIS NOS Coronary atherosclerosis of [place] coronary artery 11/24/2016 Tobacco abuse 11/17/2017 documented [...] as of this encounter Nursing Notes * Umu Hitchcock LPN - 09/06/2023 9:36 AM EDT [facility] follow up Trelegy was stopped. C/o feeling sick. Large brusing area on abdomen. C/o having a lump there also. documented in this encounter Plan of Treatment Upcoming Encounters Date Type Department Care Team (Latest Contact Info) Description 09/07/2023 1:10 PM EDT Office Visit Pharmacy, [address] [place] [address] [place] [address] 09/27/2023 9:40 AM EDT Office Visit Family Medicine [address] [place] [phone] Courtney Restrepo MD [address] [place] [address] [place] [address] 10/10/2023 4:00 PM EDT Office Visit Nephrology, [address] [place], [place] [address] Charla Potter MD [address] [place], [place] [address] [address] 10/12/2023 11:00 AM EDT Office Visit Cardiology, [facility] [address] [place] [address] Frantz Herrera MD [address] [place] [facility] [place] [address] 12/07/2023 9:20 AM EDT Office Visit Family Medicine [address] [place] [phone] Courtney Restrepo MD [address] [place] [address] [place] [address] 01/17/2024 10:00 AM EST Hospital Encounter ENDO [facility], Endoscopy Room [facility] [address] [place] [phone] Cassandra Hart MD [address] [place] [address] 01/17/2024 10:00 AM EST - 01/17/2024 10:30 AM EST Surgery ENDO [facility], Endoscopy Room [facility] [address] [place] [phone] Cassandra Hart MD [address] [place] [address] ESOPHAGOGASTRODUODENOSCOPY (EGD), FLEXIBLE, TRANSORAL, DIAGNOSTIC 01/25/2024 10:30 AM EST Imaging Vascular Lab, [facility] 2nd [facility] [address] [place] [address] 01/25/2024 11:30 AM EST Imaging Vascular Lab, [facility] 2nd [facility] [address] [place] [address] 02/01/2024 11:30 AM EST Office Visit Vascular Surgery, [facility] [address] [place] [address] Nnamdi King MD [address] [place] [address] 02/08/2024 11:00 AM EST Imaging Radiology, [facility] [address] [place] [address] 02/17/2024 10:00 AM EST Office Visit Rheumatology [address] [place] [address] Marshall Romano MD [address] [place] [id number] Pending Results Name Type Priority Associated Diagnoses [...] Comments DISCUSS TOBACCO CESSATION (REFER TO SMARTSET #2709) 1949 Cologuard 1994 Fecal Occult Blood Test [...] D LEVEL ONCE IN A LIFETIME-USE SMARTSET# 12209 Completed 10/16/2021, 12/27/2018 Alpha-1 Antitrypsin Discontinued GARDASIL-HPV [...] this encounter Medical Devices Implanted Type Area Bell Person Device Identifier Shelf Expiration Date Model / Serial / Lot Stent Graft Icast [id number] - [id number] - [id number] Implanted:Qty : 1 on 04/14/2022 by Nnamdi King MD at OR [facility] [place] N/A: Mesenteric Artery GETINGE : MAQUET [id number] 02/21/2023 [id number] / [id number] / [id number] Description:implanted in SMA Stent [place] 3.0x15 Rx - [id number] Implanted:Qty : 1 on 11/12/2022 by Patrice Jose MD at CARDIAC LABS [facility] [place] [employer] : VASCULAR [id number] 11/28/2023 [id number] / / [id number] Stent R2p Misago 6fr [id number] - [id number] Implanted:Qty : 1 on 07/18/2023 by Nnamdi [place] MD at OR [facility] [place] Right: SFA [facility] MEDICAL : CARDIO SYS [id number] 09/11/2023 [id number] / / [id number] documented as of this encounter Visit Diagnoses [...] the patient have Health Care Power of Reproduction Technician? Yes, in chart and reviewed as [...] Agents on File Name Relationship Healthcare Agent [facility] Communication Diamond Braxton Adult Child Health Care Repr esentative (appointed verbally by patient or by statute hierarchy) Care Teams Supervisor Furnace Room Relationship Specialty Start Date End Date Courtney Restrepo MD [address] [place] [address] [place] [address] PCP - General Family Medicine 10/17/19 documented as of this encounter
--- OUTSIDE RECORDS SUMMARY | 2023-10-07 20:38 | External Medical Summary | Summary of Care ---
Author Name Unknown Organization [facility] Address [address] [place] [address] Phone [phone] Care Team Providers Care Employment Attorney Name Role Phone Courtney Restrepo MD Primary Care Prov ider Encounter Details Date Type Department Care Team (Late st Contact Info) Description 09/05/2023 Population Health External Data Unspecified Department Allergies [...] edema Nitroglycerin Hypotension 12/20/2018 Penicillins Nausea/vomiting 05/17/2007 [place] Hives 10/02/2018 Propoxyphene Edema face/lips/tongue,Hiv es 06/26/2009 [...] of less than 8.0% ([facility]) Use to test glucose daily. E11.9 100 Each 5 11/29/2022 Active OneTouch Verio w/Device KitIndications:Type 2 diabetes mellitus with hemoglobin A1c goal of less than 8.0% ([facility]) Use to test glucose daily. [...] 20 MG Oral Tablet (Lasix)Indications:A therosclerosis of [place]' artery of left lower extremity with rest [...] n 07/14/2023 Dependent rubor 07/14/2023 Atherosclerosis of [place] de[place]' artery of extremity Pre-ulcerative corn or callous [...] rinse after steroid. Test performed by Bibiana ICING MAKER CPFT Old [place] (myocardial infarction) 02/21/2019 Bilateral carotid artery stenosis 02/21/2019 DM type 2 with diabetic peripheral neuropathy Right hand tendonitis 02/21/2019 Generalized arthritis 02/21/2019 Hand arthritis 02/21/2019 Moderate mitral regurgitation 02/13/2019 Gastrointestinal hemorrhage with melena 02/08/20 19 Lung nodules 02/07/2019 [place]leton's esophagus without dysplasia 01/29/2019 Chronic superficial gastritis with bleeding 01/12 PAD (peripheral artery disease) 01/22/2019 Iron deficiency anemia due to chronic blood loss 01/22/2019 Senile osteoporosis 07/03/2018 Reactive depression 11/17/2017 Atherosclerosis of [place]' co ronary artery of [place]' heart without angina pectoris 07/22/2015 Overview: Single [...] rinse after steroid. Test performed by Bibiana ICING MAKER CPFT GENERAL OSTEOARTHROSIS BMI 32.0-32.9,adult Tobacco [...] ISCHEMIC HRT DIS NOS Coronary atherosclerosis of [place] de[place]' coronary artery 11/24/2016 Tobacco abuse 11/17/2017 documented [...] AM EDT Office Visit Family Medicine [address] [place] [phone] Eben Obregon [address] [place] [address] 09/07/2023 1:10 PM EDT Office Visit Pharmacy, [address] [place] [address] [place] [address] 09/27/2023 9:40 AM EDT Office Visit Family Medicine [address] [place] [phone] Courtney Restrepo MD [address] [place] [address] [place] [address] 10/10/2023 4:00 PM EDT Office Visit Nephrology, [facility] [address] [facility] [place] [address] Charla Potter MD [address] [facility] [place] [address] 10/12/2023 11:00 AM EDT Office Visit Cardiology, [facility] [address] [place] [address] Frantz Herrera MD 100 [place] [address] 12/07/2023 9:20 AM EDT Office Visit Family Medicine [address] [place] [address] Courtney Restrepo MD [address] [place] [address] [place] [address] 01/17/2024 10:00 AM EST Hospital Encounter ENDO [facility], Endoscopy Room [facility] [address] [place] [phone] Cassandra Hart MD [address] [place] [address] 01/17/2024 10:00 AM EST - 01/17/2024 10:30 AM EST Surgery ENDO [facility], Endoscopy Room [facility] [address] [place] [phone] Cassandra Hart MD [address] [place] [address] ESOPHAGOGASTRODUODENOSCOPY (EGD), FLEXIBLE, TRANSORAL, DIAGNOSTIC 01/25/2024 10:30 AM EST [facility] [address] [place] [address] 01/25/2024 11:30 AM EST Imaging Vascular Lab[facility] [address] [place] [address] 02/01/2024 11:30 AM EST Office Visit Vascular Surgery, [facility] [address] [facility] [place] [address] Nnamdi King MD [address] [facility] [place] [address] 02/08/2024 11:00 AM EST Imaging Radiology, [place] [address] [email or web address] [place] [address] 02/17/2024 10:00 AM EST Office Visit Rheumatology [address] [place] [address] Marshall Romano MD [facility] [employer] [place] [id number] Scheduled Procedures Name Priority Associated Diagnoses Date/Ti me ESOPHAGOGASTRODUODENOSCOPY ( EGD), FLEXIBLE, TRANSORAL, DIAGNOSTIC 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 01/17/2024 10:00 AM EST ESOPHAGOGASTRODUODENOSCOPY ( EGD), FLEXIBLE, TRANSORAL, DIAGNOSTIC Recall Pendleton's esophagus Health Maintenance Due Date Last Done Comments DISCUSS TOBACCO CESSATION (REFER TO SMARTSET #2770) 1949 Cologuard 1994 Fecal Occult Blood Test [...] D LEVEL ONCE IN A LIFETIME-USE SMARTSET# 19635 Completed 10/16/2021, 12/27/2018 Alpha-1 Antitrypsin Discontinued GARDASIL-HPV [...] this encounter Medical Devices Implanted Type Area Community Outreach Coordinator Device Identifier Shelf Expiration Date Model / Serial / Lot Stent Graft Icast [id number] - [id number] - [id number] Implanted:Qty : 1 on 04/14/2022 by Nnamdi King MD at [place] [facility] [place] N/A: Mesenteric Artery GETINGE : VITOR [id number] 02/21/2023 [id number] / [id number] / [id number] Description:implanted in SMA Stent [place] 3.0x15 Rx - [id number] Implanted:Qty : 1 on 11/12/2022 by Patrice Jose MD at CARDIAC LABS [facility] [place] [employer] : VASCULAR [id number] 11/28/2023 [id number] / / [id number] Stent R2p Misago 6fr [id number] - [id number] Implanted:Qty : 1 on 07/18/2023 by Nnamdi King MD at OR [facility] [place] Right: SFA [facility] MEDICAL : CARDIO SYS [id number] 09/11/2023 [id number] / / [id number] documented as of this encounter Advance Directives [...] patient have Health Care Power of Manager Infusion? Yes, in chart and reviewed as current [...] patient or by statute hierarchy) Care Teams Employment Attorney Relationship Specialty Start Date End Date Courtney Restrepo MD [address] [place] [address] [place] [address] PCP - General Family Medicine 10/17/19 documented as of this encounter
--- OUTSIDE RECORDS SUMMARY | 2023-10-07 20:39 | External Medical Summary | Summary of Care ---
Author Name Unknown Organization [facility] Address [address] [place] [address] Phone [phone] Care Team Providers Care Pipe And Tank Fabricator Name Role Phone Courtney Restrepo MD Primary Care Prov ider Reason for Visit * Reason Comments Acute Encounter Details Date Type Department Care Team (Late st Contact Info) Description 08/30/2023 4:20 PM EDT Office Visit Family Medicine [address] [phone] Eben Obregon [address] [place] [phone] Atypical chest pain*; Type 2 diabetes mellitus with hemoglobin A1c goal of less than 8.0% ([facility]); Shortness of breath; Acute cough Allergies Active [...] edema Nitroglycerin Hypotension 12/20/2018 Penicillins Nausea/vomiting 05/17/2007 [place] Hives 10/02/2018 Propoxyphene Edema face/lips/tongue,Hiv es 06/26/2009 documented as of this encounter (statuses as of 08/31/2023) Medications Medication Sig Dispensed Refills Start Date End Date Status busPIRone HCl 15 MG Oral Tablet (Buspar)Indications: Anxiety TAKE ONE TABLET TWICE DAILY 180 Tablet 1 10/15/2022 Active DULoxetine HCl 30 MG Oral Capsule Delayed Release Particles (Cymbalta)Indication s:Chronic midline thoracic back pain,Generalized anxiety disorder Take 1 Capsule by mouth in the morning and 1 Capsule before bedtime. 180 Capsule 2 10/15/2022 Active [employer] Delica Lancets 30GIndications:Type 2 diabetes mellitus with hemoglobin A1c goal of less than 8.0% ([facility]) Use to test glucose daily. E11.9 100 Each 5 11/29/2022 Active ProcyrionTouch Verio w/Device KitIndications:Type 2 diabetes mellitus with [...] less than 8.0% ([facility]) Units as per sliding scale 3 mL 3 02/04/2023 Active Additional Information Patient taking differently: Units as per sliding scale 4-6 units at lunch, Informant: Patient, Reported on 08/25/2023 Insulin Glargine Solostar 100 UNIT/ML Subcutaneous Solution Pen-injector (Lantus SoloStar)Indications :Type 2 diabetes mellitus with hemoglobin A1c goal of less than 8.0% ([facility]) Inject 10 Units under the [...] 20 MG Oral Tablet (Lasix)Indications:A therosclerosis of [place] artery of left lower extremity with rest [...] as of this encounter (statuses as of 08/31/2023) Active Problems Problem Noted Date Diagnosed Date Ischemic rest pain of lower extremity 07/14/2023 Ulcer of right foot, limited to breakdown of ski n 07/14/2023 Dependent rubor 07/14/2023 Atherosclerosis of [place] artery of extremity Pre-ulcerative corn or callous [...] rinse after steroid. Test performed by Bibiana SPOUT POSITIONER CPFT [place] (myocardial infarction) 02/21/2019 Bilateral [...] osteoporosis 07/03/2018 Reactive depression 11/17/2017 Atherosclerosis of [place] co ronary artery of [place] heart without angina pectoris 07/22/2015 Overview: Single [...] rinse after steroid. Test performed by Bibiana SPOUT POSITIONER CPFT GENERAL OSTEOARTHROSIS BMI 32.0-32.9,adult Tobacco use disorder Hyperlipidemia with target LDL less than 70 Overview: ICD-10 update of inactive term RSD upper limb Overview: left arm Generalized anxiety disorder documented as of this encounter (statuses as of 08/31/2023) Resolved Problems Problem Noted Date Diagnosed Date [...] ISCHEMIC HRT DIS NOS Coronary atherosclerosis of [place] coronary artery 11/24/2016 Tobacco abuse 11/17/2017 documented as of this encounter (statuses as of 08/31/2023) Immunizations Name Administration Dates Next Due COVID-19 [...] Progress Notes * Eben Obregon CRNP - 08/30/2023 4:20 PM EDT Images from the original note were not included. History of Present Illness Carlotta Khan is a 73 year old female that presents for Acute Past medical hx of asthma, HLD, DM II, NIRU, depression, PAD, NITHIN, s/p left knee amputation. Multiple concerns today. For the past week has felt generally ill. Notes that she is nauseated in which she has been taking Zofran for to prevent vomiting. Has been feeling dizzy. Today reports having a low grade fever of 100 at home. Currently having chest pain that radiates toleft side along with shortness of breath and a productive cough. C/o pain between her shoulders. Extensive cardiac history. Has been using inhalers and nebulizers with little relief. Has been using insulin for blood sugar management in which she is concerned that symptoms may be anallergic reaction to the insulin though she has been on insulin for some time. Wears a dexcom and reports blood sugars having been fluctuating, but denies any lows. Ultimately would like to go back on oral antidiabetic agents. Patient Active Problem List Diagnosis Moderate persistent asthma without complication GENERAL OSTEOARTHROSIS Cerebrovascular disease, arteriosclerotic, post-stroke ADVANCE DIRECTIVE INFORMATION BMI 32.0-32.9,adult Tobacco use disorder Hyperlipidemia with target LDL less than 70 RSD upper limb Type 2 diabetes mellitus with hemoglobin A1c goal of less than 8.0% ([facility]) Controlled substance agreement signed Generalized anxiety disorder Atherosclerosis of [place] coronary artery of [place] heart without angina pectoris Reactive depression Senile osteoporosis PAD (peripheral artery disease) (HCC) Iron deficiency anemia due to chronic blood loss 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 Chronic superficial gastritis with bleeding Gastrointestinal hemorrhage with melena Lung nodules Moderate mitral regurgitation [place] (myocardial infarction) Bilateral carotid artery stenosis DM [...] COPD, group D, by GOLD 2017 classification ([facility]) Chronic ischemic heart disease Advanced directives, counseling/discussion 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) 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- dominant side ([facility]) S/P femoral-femoral bypass surgery History of cardiac arrest Lactic acidosis Transaminitis Encephalopathy acute Pathological fracture of vertebra due to osteoporosis with routine healing, subsequent encounter S/P AKA (above knee amputation), left ([facility]) Status post below-knee amputation of left lower extremity ([facility]) Pre-ulcerative corn or callous Ischemic rest pain of lower extremity Ulcer of right foot, limited to breakdown of skin ([facility]) Dependent rubor Atherosclerosis of [place] artery of extremity ([facility]) Current Outpatient Medications Medication Sig [...] needed for muscle spasm. 30 Tablet 0 No current facility-administered medications [...] and periorbital edema Nitroglycerin Hypotension Penicillins Nausea/vomiting [place] Hives Propoxyphene Edema face/lips/tongue and Hives Past [...] of hand, right 05/21/2016 Coronary atherosclerosis of [place] coronary artery DM type 2, goal A1c below 7 1994 after being on steroids for a while Fracture of three ribs on left side 02/25/2015 left 3,4,5 Generalized anxiety disorder Generalized osteoarthritis Hidradenitis had skin grafts under both arms by Dr Burrell Hyperlipidemia LDL goal < 70 Hypoxia 02/28/2015 [facility], related to hypoventilation from rib fx pain Intracerebral hemorrhage (HCC) 07/03/2008 Need for hepatitis C screening test 08/08/2014 negative Obesity, BMI not known used to weigh 280 Old myocardial infarct x 2 with stent placement OTHER LATE EFFECTS CEREBROVASCULAR DISEASE 07/03/2008 RSD upper limb left arm Scabies 06/07/2017 Treated in [facility]. Senile osteoporosis 07/03/2018 high risk Shock [...] performed by Nnamdi King MD at OR [facility] ANKLE-BRACHIAL INDEX (CARDIOLOGY) Bilateral 11/03/2018 left 1.0, right 0.32 ANKLE-BRACHIAL INDEX (CARDIOLOGY) Bilateral 12/29/2018 Right 0.73, left 0.9 AORTOGRAM ABDOMINAL-TECH ONLY 04/14/2022 IMAGING SUPERVISION & INTERPRETATION ABDOMINAL AO performed by Nnamdi King MD at OR [facility] APPENDECTOMY W/OTHER PROCEDURE CARDIAC ANGIOPLASTY, PERCUTANEOUS, 1 ARTERY Bilateral 11/12/2022 PTCA, CARDIAC ANGIOPLASTY, PERCUTANEOUS, 1 ARTERY performed by Patrice Jose MD at CARDIAC LABS [facility] COLONOSCOPY THRU STOMA, W/BIOPSY 01/2009 adenomatous polyp, f/u colonoscopy in 5 yrs COLONOSCOPY, DIAGNOSTIC (RECTUM) 07/13/2018 poor prep, repeat 6 mo/COLONOSCOPY FLEXIBLE PROXIMAL DIAGNOSTIC performed by Cassandra Hart MD at ENDOSCOPY [facility] COLONOSCOPY, DIAGNOSTIC (RECTUM) 09/27/2018 6 mm descending tubular adenoma, performed by Cassandra Hart MD at ENDOSCOPY [facility] COMPOSITE SKIN GRAFT b/l axilla, donor site b/l thighs CORONARY ANGIOGRAPHY W/LEFT HEART CATH N/A 11/10/2022 CORONARY ANGIOGRAPHY W/LEFT HEART CATH performed by Patrice Jose MD at CARDIAC LABS [facility] CT ABDOMEN/PELVIS 09/28/[address] [...] performed by Cassandra Hart MD at ENDOSCOPY [facility] EGD, FLEXIBLE, DIAGNOSTIC 01/19/2019 gastric irritation on bx/[facility] EGD, FLEXIBLE, W/BIOPSY 09/27/2018 1 cm salmon colored mucosa suggestive of short segment Pendleton's, mild erythema antrum FEM/POP ARTERY REVASC W/ STENT+ANGIOPLASTY Right 07/18/2023 FEM/POP ARTERY REVASC W/ STENT+ANGIOPLASTY performed by Nnamdi King MD at OR [facility] FEM/POP ARTERY REVASC W/ANGIOPLASTY Left 04/14/2022 FEM/POP ARTERY REVASC W/ANGIOPLASTY performed by Nnamdi King MD at OR [facility] FEM/POP ARTERY REVASC W/ANGIOPLASTY Right 09/23/2022 FEM/POP ARTERY REVASC W/ANGIOPLASTY performed by Nnamdi King MD at OR [facility] FEM/POP ARTERY REVASC W/ANGIOPLASTY Left 07/18/2023 FEM/POP ARTERY REVASC W/ANGIOPLASTY performed by Nnamdi King MD at OR [facility] ILIAC ART. REVASCULARIZATION W/ANGIOPLASTY Left 09/23/2022 ILIAC ARTERY REVASCULARIZATION W/ANGIOPLASTY performed by Nnamdi King MD at OR [facility] IOF VAS CAROTID DUPLEX, BILATERAL 12/06/2012 Right carotid artery duplex examination indicates evidence of a less than 50% stenosis of the internal carotid artery. IR ARTERIOGRAM EXTREMITY BILATERAL 04/14/2022 ANGIOGRAPHY EXTREMITY BILATERAL performed by Nnamdi King MD at OR [facility] IR ARTERIOGRAM EXTREMITY BILATERAL N/A 09/23/2022 ANGIOGRAPHY EXTREMITY BILATERAL performed by Nnamdi King MD at OR [facility] IR ARTERIOGRAM EXTREMITY BILATERAL N/A 07/18/2023 ANGIOGRAPHY EXTREMITY BILATERAL performed by Nnamdi King MD at OR [facility] IR STENT PLACEMENT, INITIAL ARTERY N/A 04/14/2022 NON LOWER EXTREMITY OR CAROTID STENT REVASCULARIZATION WITH RADIOLOGIC SUPERVISION AND INTERPRETATION performed by Nnamdi King MD at OR [facility] MAMMOGRAM SCREENING BILATERAL Bilateral 08/20/2014 almost entirely fat, category 1 normal MAMMOGRAM SCREENING BILATERAL Bilateral 05/12/2017 scattered fibroglandular densities category 1 normal MOBILE DXA 07/03/2018 Lumbar T -0.7, left femur T -2.9, high risk, treatment recommended NEG PRESSURE WOUND THERAPY DME </= 50 SQ CM N/A 11/04/2022 NEGATIVE PRESSURE WOUND THERAPY LESS THAN 50SQ CM performed by Nnamdi King MD at OR [facility] NEG PRESSURE WOUND THERAPY DME </= 50 SQ CM N/A 11/16/2022 NEGATIVE PRESSURE WOUND THERAPY LESS THAN 50SQ CM performed by Nnamdi King MD at OR [facility] NM HEPATOBILIARY SYSTEM WITH PHARMACOLOGIC INTERVENTION 10/18/2018 normal hepatic scan with normal GE ejection fraction PARTIAL AMPUTATION OF TOE Right 11/04/2022 AMPUTATION TOE INTERPHALANGEAL JOINT performed by Nnamdi King MD at OR [facility] PARTIAL HYSTERECTOMY PFT/BA BRONCHODILATOR N/A 03/11/2021 probably normal PFT with some airway reversibility PLACE INTRACORONARY STENT, FIRST VS [id number] REMOVE CATARACT, INSERT LENS PROSTH Left 01/27/2017 Dr Gunter REPAIR OF BLADDER NECK 1994 Dr Montesinos/needed redone due to infection SUBQ DEBRIDEMENT, FIRST 20 CM2 N/A 11/04/2022 DEBRIDEMENT SKIN AND SUBCUTANEOUS TISSUE performed by Nnamdi King MD at OR [facility] SUBQ DEBRIDEMENT, FIRST 20 CM2 N/A 11/16/2022 DEBRIDEMENT SKIN AND SUBCUTANEOUS TISSUE performed by Nnamdi King MD at OR [facility] SYNTH BYPASS, FEM-FEM 2004 fem-fem bypass, [place] THROMBOENDARECTOMY W/PATCH,NECK INCISION [id number] right CEA, [place] THROMBOENDARECTOMY W/PATCH,NECK INCISION 08/19/2008 right redo eversion carotid endarterectomy /Dr. 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 Disabled Social Determinants of Health Financial [...] Stability Do you currently live in a [place] facility or have no steady place to sleep [...] years): Not on file Physical Exam Vitals: 08/30/23 1610 Temp: 36.1 C (97 F) Pulse: 88 SpO2: 93% BP: 104/60 General: A&Ox3 and ill appearing Head: Normocephalic and atraumatic Heart: regular rate & rhythm, no murmur, no gallops, S-1 normal, and S-2 normal Lungs: tachypnea, diffuse rhonchi with diminished breath sounds worse on the left, harsh hacking cough observed Abdomen: abdomen soft, non-tender, normal bowel sounds, and no masses or organomegaly Extremities: left knee amputation / right lower leg no edema noted Skin: warm and dry / pale I have reviewed the following results: BMP results Recent Labs Units 06/15/23 0720 06/14/23 0601 06/13/23 0723 SODIUM - [facility] mmol/L 139 132* 135 POTASSIUM - [facility] mmol/L 4.7 4.4 5.2* CHLORIDE - [facility] mmol/L 99 96* 97* CO2 - [facility] mmol/L 30 27 32 CREATININE - [facility] mg/dL 0.7 0.6 0.8 BUN - [facility] mg/dL 15 17 17 CBC results Recent Labs Units 06/15/23 0720 06/14/23 0601 06/13/23 0723 WBC K/uL 10.70 10.96* 15.82* HGB g/dL 11.3* 11.5* 11.6* HCT % 36.0 33.9* 34.6* PLT K/uL 364 314 286 HbA1c results Recent Labs Units 06/08/23 0536 12/10/22 1318 09/08/22 1438 HEMOGLOBIN A1C - [facility] % 9.1* 7.1* 6.7* EKG today SR rate of [address] and T wave abnormality / appears to be changed compared to previous in June 2023. Assessment and Plan Atypical chest pain Type 2 diabetes mellitus with hemoglobin A1c goal of less than 8.0% (HCC) Shortness of breath Acute cough Plan - pt to go to [facility] ER as I am concerned about pneumonia vs PE vs cardiac issues / offered an ambulance, but declined as her grandson is going to be providing her transportation / both pt and grandsonare agreeable to this plan - adriana stein contacted and notified of patient's impending arrival - once feeling better can plan to follow up and discuss returning to oral antidiabetic medications Wrap-Up Follow Up: Return if symptoms worsen or fail to improve. Time: I spent a total of 30-39 minutes (exact time 38 mins) on the date of service in preparation, delivery, and documentation of the care provided to Carlotta Khan excluding any time spent in the performance of separately billed services. documented in this encounter Nursing Notes * Solange Duncan [...] she stands up documented in this encounter Miscellaneous Notes * Addendum Note - Serena Duarte CMA - 08/31/2023 8:37 AM EDTAddended by: SERENA DUARTE on: 08/31/2023 08:37 AM Modules accepted: Orders documented in this encounter Plan of Treatment Upcoming Encounters Date Type Department Care Team (Latest Contact Info) Description 09/07/2023 1:10 PM EDT Office Visit Pharmacy, [address] [place] [address] [place] [address] 09/27/2023 9:40 AM EDT Office Visit Family Medicine [address] [place] [phone] Courtney Restrepo MD [address] [place] [address] [place] [address] 10/10/2023 4:00 PM EDT Office Visit Nephrology, [address] [place] [address] Charla Potter MD [address] [place] [address] 10/12/2023 11:00 AM EDT Office Visit Cardiology, [facility] [address] [place] [address] Frantz Herrera MD [address] [place] [address], [place] [address] 12/07/2023 9:20 AM EDT Office Visit Family [address] [place] [phone] Courtney Restrepo MD [address] [place] [address] [place] [address] 01/17/2024 10:00 AM EST Hospital Encounter ENDO OSS, Endoscopy Room [facility] [address] [place] [phone] Cassandra Hart MD [address] [place] [address] 01/17/2024 10:00 AM EST - 01/17/2024 10:30 AM EST Surgery ENDO OSS, Endoscopy Room [facility] [address] [place] [phone] Cassandra Hart MD [address] [place] [address] ESOPHAGOGASTRODUODENOSCOPY (EGD), FLEXIBLE, TRANSORAL, DIAGNOSTIC 01/25/2024 10:30 AM EST Imaging Vascular Lab, [address] 132 [facility] [place] [address] 01/25/2024 11:30 AM EST Imaging Vascular Lab, [address] 132 [facility] [place] [address] 02/01/2024 11:30 AM EST Office Visit Vascular Surgery, [address] [place] [address] Nnamdi King MD [address] [place] [address] 02/08/2024 11:00 AM EST Imaging Radiology, [place] [address] [place] [address] 02/17/2024 10:00 AM EST Office Visit Rheumatology [address] [place] [phone] Marshall Romano MD [facility] [employer] [place] [address] Scheduled Orders Name Type Priority Associated Diagnoses Orde r Schedule EKG EKG Routine Atypical chest pain Ordered: 08/31/2023 Scheduled Procedures Name Priority Associated Diagnoses Date/Ti [...] D LEVEL ONCE IN A LIFETIME-USE SMARTSET# [id number] Completed 10/16/2021, 12/27/2018 Alpha-1 Antitrypsin Discontinued GARDASIL-HPV [...] this encounter Medical Devices Implanted Type Area Marketing Representative Device Identifier Shelf Expiration Date Model / Serial / Lot Stent Graft Icast [id number] - [id number] - [id number] Implanted:Qty : 1 on 04/14/2022 by Nnamdi King MD at OR [facility] N/A: Mesenteric Artery GETINGE : MAQUET [id number] 02/21/2023 [id number] / [id number] / [id number] Description:implanted in SMA Stent Howie 3.0x15 Rx - [id number] Implanted:Qty : 1 on 11/12/2022 by Patrice Jose MD at CARDIAC LABS [facility] [employer]IC : VASCULAR [id number] 11/28/2023 [id number] / / [id number] Stent R2p Misago 6fr [id number] - [id number] Implanted:Qty : 1 on 07/18/2023 by Nnamdi King MD at OR [facility] Right: [employer] : CARDIO SYS [id number] 09/11/2023 [id number] / / [id number] documented as of this encounter Visit Diagnoses [...] the patient have Health Care Power of Upholstery Technician? Yes, in chart and reviewed as [...] or by statute hierarchy) Care Teams Pipe And Tank Fabricator Relationship Specialty Start Date End Date Courtney Restrepo MD [address] [place] [address] [place] [id number] PCP - General Family Medicine 10/17/19 documented as of this encounter
--- OUTSIDE RECORDS SUMMARY | 2023-10-07 20:39 | External Medical Summary | Summary of Care ---
Author Name Unknown Organization [facility] Address [address] [place] [address] Phone [phone] Care Team Providers Care Entry Level Automotive Technician Name Role Phone Courtney Restrepo MD Primary Care Prov ider Encounter Details Date Type Department Care Team (Late st Contact Info) Description 09/01/2023 Orders Only Family Medicine [address] [phone] Courtney Restrepo MD [address] [place] [address] [place] [address] Allergies Active Allergy Reactions [...] edema Nitroglycerin Hypotension 12/20/2018 Penicillins Nausea/vomiting 05/17/2007 [place] Hives 10/02/2018 Propoxyphene Edema face/lips/tongue,Hiv es 06/26/2009 [...] before bedtime. 180 Capsule 2 10/15/2022 Active Pulse Electronics Delica Lancets 30GIndications:Type 2 diabetes mellitus with hemoglobin A1c goal of less than 8.0% ([facility]) Use to test glucose daily. E11.9 100 Each 5 11/29/2022 Active itzbigTouch Verio w/Device KitIndications:Type 2 diabetes mellitus with hemoglobin A1c goal of less than 8.0% ([facility]) Use to test glucose daily. [...] 20 MG Oral Tablet (Lasix)Indications:A therosclerosis of [place] artery of left lower extremity with [...] n 07/14/2023 Dependent rubor 07/14/2023 Atherosclerosis of [place] artery of extremity Pre-ulcerative corn or [...] rinse after steroid. Test performed by Bibiana COVER CUTTER CPFT Old [place] (myocardial infarction) 02/21/2019 Bilateral [...] osteoporosis 07/03/2018 Reactive depression 11/17/2017 Atherosclerosis of [place] co ronary artery of [place] heart without angina pectoris 07/22/2015 Overview: [...] rinse after steroid. Test performed by Bibiana COVER CUTTER CPFT GENERAL OSTEOARTHROSIS BMI 32.0-32.9,adult Tobacco [...] ISCHEMIC HRT DIS NOS Coronary atherosclerosis of [place] coronary artery 11/24/2016 Tobacco abuse 11/17/2017 [...] 09/07/2023 1:10 PM EDT Office Visit Pharmacy, [address] [place] [address] [place] [address] 09/27/2023 9:40 AM EDT Office Visit Family Medicine [address] [place] [phone] Courtney Restrepo MD [address] [place] [address] [place] [address] 10/10/2023 4:00 PM EDT Office Visit Nephrology, [facility] [address] [place] [address] Charla Potter MD [address] [facility] [place] [address] 10/12/2023 11:00 AM EDT Office Visit Cardiology, [facility] [address] [place] [address] Frantz Herrera MD [address] [place] [address], [place] [address] 12/07/2023 9:20 AM EDT Office Visit Family Medicine [address] [place] [phone] Courtney Restrepo MD [address] [place] [address] [place] [address] 01/17/2024 10:00 AM EST Hospital Encounter ENDO [facility], Endoscopy Room [facility] [address] [place] [phone] Cassandra Hart MD [address] [place] [address] 01/17/2024 10:00 AM EST - 01/17/2024 10:30 AM EST Surgery ENDO [facility], Endoscopy Room [facility] [address] [place] [phone] Cassandra Hart MD [address] [place] [address] ESOPHAGOGASTRODUODENOSCOPY (EGD), FLEXIBLE, TRANSORAL, DIAGNOSTIC 01/25/2024 10:30 AM EST Imaging Vascular Lab, [address] [place] [address] 01/25/2024 11:30 AM EST Imaging Vascular Lab, [address] [facility] [place] [address] [place] [address] 02/01/2024 11:30 AM EST Office Visit Vascular Surgery, [facility] [address] [place] [address] Nnamdi King MD [address] [place] [address] 02/08/2024 11:00 AM EST Imaging Radiology, [place] [address] [place] [address] 02/17/2024 10:00 AM EST Office Visit Rheumatology [address] [place] [phone] Marshall Romano MD [facility] [place] [address] Scheduled Procedures Name Priority Associated Diagnoses Date/Ti me ESOPHAGOGASTRODUODENOSCOPY ( EGD), FLEXIBLE, TRANSORAL, DIAGNOSTIC 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 01/17/2024 10:00 AM EST ESOPHAGOGASTRODUODENOSCOPY ( EGD), FLEXIBLE, TRANSORAL, DIAGNOSTIC Recall Pendleton's esophagus Health Maintenance Due Date Last Done Comments DISCUSS TOBACCO CESSATION (REFER TO SMARTSET #6684) 1949 Cologuard 1994 Fecal Occult Blood Test [...] D LEVEL ONCE IN A LIFETIME-USE SMARTSET# 40990 Completed 10/16/2021, 12/27/2018 Alpha-1 Antitrypsin Discontinued GARDASIL-HPV [...] this encounter Medical Devices Implanted Type Area Licensed Certified Orthotist Device Identifier Shelf Expiration Date Model / Serial / Lot Stent Graft Icast [id number] - [id number] - [id number] Implanted:Qty : 1 on 04/14/2022 by Nnamdi King MD at OR [facility] N/A: Mesenteric Artery GETINGE : VITOR [id number] 02/21/2023 [id number] / [id number] / [id number] Description:implanted in SMA Stent [place] 3.0x15 Rx - [id number] Implanted:Qty : 1 on 11/12/2022 by Patrice Jose MD at CARDIAC LABS [facility] MED[employer] : VASCULAR [id number] 11/28/2023 [id number] / / [id number] Stent R2p Misago 6fr [id number] - [id number] Implanted:Qty : 1 on 07/18/2023 by Nnamdi King MD at OR [facility] Right: SFA [employer] : CARDIO SYS [id number] 09/11/2023 [id number] / / [id number] documented as of this encounter Procedures Procedure Name Priority Date/Time Associated Diagnosis Comments OUTSIDE LAB-CORONAVIRUS (COVID-19) Routine 08/30/2023 documented in this encounter Results * OUTSIDE LAB-CORONAVIRUS (COVID-19) (08/30/2023) [id number] DE LAB NOT DETECTED NOT DETECTED OUTSIDE LAB (SEE SCANNED REPORT) 08/30/2023 History Per Patient LABORATORY OUTSIDE LAB (SEE SCANNED REPORT) documented in this encounter Advance Directives * [...] the patient have Health Care Power of Modeling Analyst? Yes, in chart and reviewed as [...] patient or by statute hierarchy) Care Teams Entry Level Automotive Technician Relationship Specialty Start Date End Date Courtney Restrepo MD [address] [place] [address] [place] [address] PCP - General Family Medicine 10/17/19 documented as of this encounter
--- NOTE | 2023-10-07 21:24 | Electrocardiogram Report ---
Test Reason : Blood Pressure : / mmHG Vent. Rate : 085 BPM Atrial Rate : 085 BPM P-R Int : 144 ms QRS Dur : 084 ms QT Int : 408 ms P-R-T Axes : 074 080 084 degrees QTc Int : 485 ms Sinus rhythm with occasional Premature ventricular complexes Otherwise normal ECG When compared with ECG of 30-AUG-2023 18:20, Premature ventricular complexes are now Present Nonspecific T wave abnormality no longer evident in Inferior leads Confirmed by Felipe Jerez ([id number]) on 10/07/2023 9:24:47 PM Referred By: Confirmed By:Felipe Jerez
[2023-10-07] MEDS: DULoxetine HCL 30 MG CAP PO SCH (22:07)
[2023-10-07] MEDS: SUCRALFATE 1 GM TAB PO SCH (22:07)
[2023-10-07] MEDS: GABAPENTIN 300 MG CAP PO SCH (22:08)
[2023-10-07] MEDS: busPIRone 15 MG TAB PO SCH (22:08)
[2023-10-07] MEDS: BACLOFEN 10 MG TAB PO SCH (22:08)
[2023-10-07] MEDS: ATORVASTATIN 40 MG TAB PO SCH (22:08)
[2023-10-07] MEDS: FERROUS SULFATE 325 MG TAB PO SCH (22:08)
[2023-10-07] MEDS: HYDROCODONE/ACETAMOPHEN 5/325MG TAB PO PRN (22:18)
[2023-10-07] MEDS: INSULIN ASPART PER UNIT CHARGE SC SCH (22:21)
[2023-10-07 23:00] LABS: Hematocrit (blood only) 46.4 % (37.0-47.0); Hemoglobin 14.4 g/dl (12.0-16.0)
--- OUTSIDE RECORDS SUMMARY | 2023-10-08 00:06 | External Medical Summary | Summary of Care ---
Author Name Unknown Organization [facility] Address [address] [place] [address] Phone [phone] Care Team Providers Care Artificial Limb Fitter Name Role Phone Courtney Restrepo MD Primary Care Prov ider Reason for Visit * Reason Onset Date Comments Advice 10/07/2023 Going to the ER Encounter Details Date Type Department Care Team (Late st Contact Info) Description 10/07/2023 Telephone Family Medicine [address] [phone] Courtney Restrepo MD [address] [place], [place] [address] [address] Advice (Going to the ER) Allergies Active Allergy Reactions Criticality Noted Date [...] edema Nitroglycerin Hypotension 12/20/2018 Penicillins Nausea/vomiting 05/17/2007 [place] Hives 10/02/2018 Propoxyphene Edema face/lips/tongue,Hiv es 06/26/2009 [...] before bedtime. 180 Capsule 2 10/15/2022 Active Michael BiekerTouch Delica Lancets 30GIndications:Type 2 diabetes mellitus with [...] 20 MG Oral Tablet (Lasix)Indications:A therosclerosis of [place] artery of left lower extremity with rest [...] ns:COPD, group D, by GOLD 2017 classification ([facility]) Inhale 2 Puffs by mouth in the morning and 2 Puffs before bedtime. 10.2 g 5 09/06/2023 Active Dulaglutide 0.75 MG/0.5ML Subcutaneous Solution Pen-injector ([facility] E[facility]) Inject 0.75 mg under the skin once a week. DxE11.9 2 mL 3 09/07/2023 Active Ferrous Sulfate 325 (65 Fe) MG Oral Tablet (Feosol)Indications: Iron deficiency anemia, unspecified iron deficiency anemia type Take 1 Tablet by mouth in the morning and 1 Tablet before bedtime. 60 Tablet 11 09/08/2023 Active HYDROcodone-Acetamin ophen 5-325 MG Oral TabletIndications:S/ P AKA (above knee amputation), left ([facility]) Take 1 Tablet by mouth every 6 hours as needed for Pain, Mild or Pain, Severe. 60 Tablet 09/20/2023 Active Doxycycline Monohydrate 100 MG Oral Capsule Take 1 Capsule by mouth in the morning and 1 Capsule before bedtime. 09/24/2023 Active Empagliflozin 10 MG Oral Tablet (Jardiance)Indicatio ns:Type 2 diabetes mellitus with hemoglobin A1c goal of less than 8.0% ([facility]) Take 1 Tablet by mouth in the morning. 30 Tablet 5 09/27/2023 Active Mupirocin 2 % External Ointment (Bactroban)Indicatio ns:Skin tear of right elbow without complication, initial encounter Apply topically to affected area 3 times a day for 14 days. Apply to affected area. 22 g 1 09/27/2023 4 Active Baclofen 5 MG Oral Tablet [...] n 07/14/2023 Dependent rubor 07/14/2023 Atherosclerosis of [place] artery of extremity Pre-ulcerative corn or callous [...] rinse after steroid. Test performed by Bibiana EARLY INTERVENT[employer] SCHOOL PSYCHOLOGIST CPFT Old [place] (myocardial infarction) 02/21/2019 Bilateral [...] osteoporosis 07/03/2018 Reactive depression 11/17/2017 Atherosclerosis of [place] co ronary artery of [place] heart without angina pectoris 07/22/2015 Overview: Single [...] rinse after steroid. Test performed by Bibiana EARLY [employer] SCHOOL PSYCHOLOGIST CPFT GENERAL OSTEOARTHROSIS BMI 32.0-32.9,adult Tobacco use [...] ISCHEMIC HRT DIS NOS Coronary atherosclerosis of [place] coronary artery 11/24/2016 Tobacco abuse 11/17/2017 documented [...] Telephone Encounter - Courtney Restrepo MD - 10/07/2023 11:05 AM EDT Noted and agree * Telephone Encounter - Renetta Barney LPN - 10/07/2023 9:30 AM EDT Patient calling, "I'm in a bad way, sicker than sick". When she returned from the [facility] yesterday the symptoms started. 3 loose BM's last night - "looked like tar in the toilet" Vomited mucus that is yellow/green. "I took a Zofran this morning, it didn't help much." Upper left abdominal pain- constant 6/10 Severe middle back pain - constant 10/10 Dizziness Patient had a BM while we were on the phone, black and tarry. Dizziness developed yesterday morning, "I thought I was going to pass out, SOB and chest pain last night. No weakness, SOB, chest pain, cold symptoms, palpitations, fevers, chills. Called the office, spoke with Renetta. She consulted Dr. Sanches. He advised patient go to the ER for eval. Patient's caregiver is there with her as well as her grandson. Her grandson will take her to [facility] ER. FYI Dr. Waldemar Morejon documented in this encounter Plan of Treatment Upcoming Encounters Date Type Department Care Team (Latest Contact Info) Description 10/10/2023 4:00 PM EDT Office Visit Nephrology, [facility] [address] [facility] [address] Charla Potter MD [address] [place] [address] [place] [address] 10/11/2023 10:00 AM EDT Office Visit Pharmacy, [address] [place] [address] [place] [address] 10/12/2023 11:00 AM EDT Office Visit Cardiology, [facility] [place] [address] Frantz Herrera MD [address] [place] [address] 11/01/2023 4:00 PM EDT Imaging Radiology [address] [facility] [place] [address] 12/07/2023 9:20 AM EDT Office Visit Family Medicine [address] [place] [address] Courtney Restrepo MD [address] [place] [address] [place] [address] 01/17/2024 10:00 AM EST Hospital Encounter ENDO [facility], Endoscopy Room [facility] [address] [place] [phone] Cassandra Hart MD [address] [place] [address] 01/17/2024 10:00 AM EST - 01/17/2024 10:30 AM EST Surgery ENDO [facility], Endoscopy Room [facility] [address] [place] [address] Cassandra Hart MD [address] [place] [address] ESOPHAGOGASTRODUODENOSCOPY (EGD), FLEXIBLE, TRANSORAL, DIAGNOSTIC 01/25/2024 10:30 AM EST Imaging Vascular Lab, [address] [facility] [place] [address] 01/25/2024 11:30 AM EST Imaging Vascular Lab, [address] [facility] [place] [address] 02/01/2024 11:30 AM EST Office Visit Vascular Surgery, [facility] [address] [facility] [place] [address] Nnamdi King MD [address] [place] [address] 02/08/2024 11:00 AM EST Imaging Radiology, [address] [place] [address] 02/17/2024 10:00 AM EST Office Visit [address] [place] [phone] Marshall Romano MD [facility] [place] [address] Scheduled Procedures Name Priority Associated Diagnoses Date/Ti nm ESOPHAGOGASTRODUODENOSCOPY ( EGD), FLEXIBLE, TRANSORAL, DIAGNOSTIC 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 01/17/2024 10:00 AM EST ESOPHAGOGASTRODUODENOSCOPY ( EGD), FLEXIBLE, TRANSORAL, DIAGNOSTIC Recall Pendleton's esophagus Health Maintenance Due Date Last Done Comments DISCUSS TOBACCO CESSATION (REFER TO SMARTSET #6056) 1950 Cologuard 1994 Fecal Occult Blood Test [...] D LEVEL ONCE IN A LIFETIME-USE SMARTSET# 43784 Completed 10/16/2021, 12/27/2018 Alpha-1 Antitrypsin Discontinued HPV [...] encounter Medical Devices Implanted Type Area Electrical Contractor Device Identifier Shelf Expiration Date Model / Serial / Lot Stent Graft Icast [id number] - [id number] - [id number] Implanted:Qty : 1 on 04/14/2022 by Nnamdi King MD at OR [facility] N/A: Mesenteric Artery GETINGE : YOELT [id number] 02/21/2023 [id number] / [id number] / [id number] Description:implanted in SMA Stent [place] 3.0x15 Rx - [id number] Implanted:Qty : 1 on 11/12/2022 by Patrice Jose MD at CARDIAC LABS [facility] [employer] : VASCULAR [id number] 11/28/2023 [id number] / / [id number] Stent R2p Misago 6fr [id number] - [id number] Implanted:Qty : 1 on 07/18/2023 by Nnamdi King MD at OR [facility] Right: [facility] MED[facility] : CARDIO SYS [id number] 09/11/2023 [id number] / / [id number] documented as of this encounter Advance Directives [...] the patient have Health Care Power of Public Health Nurse? Yes, in chart and reviewed as current [...] patient or by statute hierarchy) Care Teams Artificial Limb Fitter Relationship Specialty Start Date End Date Courtney Restrepo MD [address] [place] [address] [place] [id number] PCP - General Family Medicine 10/17/19 documented as of this encounter
[2023-10-08 07:16] LABS: Hematocrit (blood only) 46.4 % (37.0-47.0); Hemoglobin 14.4 g/dl (12.0-16.0); Mean Corpuscular Volume 86.9 fL (80.0-100.0); Mean Platelet Volume 9.9 fL (9.4-12.4); Platelet Count 252 K/uL (130-400); RDW Coefficient of Variation 19.8 % (11.5-14.5); RDW Standard Deviation 61.5 fL (36.4-46.3); Red Blood Count 5.34 M/uL (4.20-5.40); White Blood Count 6.33 K/ul (4.8-10.8)
--- NOTE | 2023-10-08 07:32 | Electrocardiogram Report ---
Test Reason : Blood Pressure : / mmHG Vent. Rate : 088 BPM Atrial Rate : 088 BPM P-R Int : 162 ms QRS Dur : 080 ms QT Int : 402 ms P-R-T Axes : 080 080 081 degrees QTc Int : 486 ms Normal sinus rhythm Prolonged QT When compared with ECG of 07-OCT-2023 13:40, Premature ventricular complexes are no longer Present Confirmed by Jaquan Monroy ([id number]) on 10/08/2023 7:31:53 AM Referred By: Courtney Jay Confirmed By:Jaquan Monroy
[2023-10-08 07:47] LABS: BUN Creatinine Ratio 14.1 (10-20); Calcium 9.4 mg/dl (8.6-10.3); Creatinine Clr Calc Pharmacy 49.8 ml/min; Est GFR (African American) 71.1 ml/min; Est GFR (Non-African American) 61.3 ml/min; Potassium 4.2 mmol/L (3.5-5.1)
--- NOTE | 2023-10-08 07:57 | Cardiology Consultation ---
Date of Consultation October 08, 2023 Assessment & Plan (1) Melena: (2) PVD (peripheral vascular disease): (3) CAD (coronary artery disease): Plan Patient admitted with concerns regarding several episodes of melena concerning for acute GI bleed with abdominal pain, dizziness. Hbg on admission was 14.6, stable per repeat at 14.4 x2. FOBT was positive. Symptoms have improved but no recent BM. Cardiology consulted due to extensive PVD and history of CAD. She has a stent to the LAD extending into the Left main in Nov 2022. She also has multiple vascular interventions, most recently LCFA angioplasty, RSFA & Pop angioplasty & stenting on 07/18/23. It has been documented on multiple occasions through that life long ASA and Plavix is recommended. upon arrival to [place], ASA and plavix were placed on hold. Given the fact that her symptoms have improved and her hbg has remained stable x3, would recommend at least resuming Plavix 75 mg daily for now. ASA can remain on hold for now but hopefully can be resumed in 1-2 days. Follow H&H GI recommends conservative management unless H&H drops or she becomes symptomatic. future EGD/colonoscopy planned She should continue other home medications including atorvastatin. She takes furosemide 20 mg daily at home, but this was placed on hold due to concerns for GI bleed. Would resume to keep I+O's equal. Case discussed with Dr. Roberts I spent a total of 55 minutes on the date of service in preparation, delivery, and documentation of the care provided to this patient, excluding any time spent in the performance of separately billed services. Krystle Turner PA-C Department of Cardiology, [facility] This chart was completed in part utilizing Speech Voice Recognition Software. Grammatical errors, random word insertions, pronoun errors, and incomplete sentences are an occasional consequence of this system due to software limitations, ambient noise, and hardware issues. Any formal questions or concerns about the content, text, or information contained within the body of this dictation should be directly addressed to the provider for clarification. Supervising Physician Co-Signing Physician Notes I have reviewed the advanced practitioner's documentation on the date of service referenced in note, and I agree with, and take responsibility for the plan of care. 73-year-old with known significant coronary artery disease underwent stenting to left main and LAD in November 2028 and multiple vascular interventions. Currently presents with GI bleed but hemoglobin has remained stable occult blood is positive. Resume Plavix because of high risk of stent thrombosis I spent a total of [30] minutes coordinating, documenting, and providing care for this patient excluding time spent in the performance of separately billed services or time spent by another provider. History of Present Illness Reason for Consultation: GI bleed, Dual antiplatelet therapy; Severe PVD; CAD Requesting Physician: Dr. Mendez Attending Physician: Dr. Roberts History of Present Illness Patient is a very complex 73 year old female who presents to [facility] with complaints of abdominal pain, nausea, and dark stools, concerning for GI bleed. She has a complex history includin. Severe vascular disease - (follows with [facility] vascular) -S/P LCFA angioplasty, RSFA & Pop angioplasty & stenting for RLE PVD w/ ischemic ulcer on 07/18/23 via L brachial arterial access by Dr. King -S/P right CEA in [id number] in [place]. 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 Symptoms were left mouth weakness causing her drool, left arm and leg weakness. During the workup for CVA, an 80- 99% right carotid restenosis was noted. -S/P redo right CEA by Dr. Bynum 08/19/2008. -Has left sided residual UE weakness with hand contracture. -Mesenteric arterial disease: S/P SMA stent 04/14/[address] King for chronic mesenteric ischemia -S/P L to R fem-fem bypass in [place] in ~2004 following a cardiac cath that caused her right leg to "go ." On 11/06/2018 she had a thrombectomy of the fem-fem bypass and patch angioplasty of the distal anastomosis (right groin) by Dr. Jara at [facility], performed for ischemic right leg. S/P left [employer]ER 04/14/[address] King during time of SMA stent placement S/P angioplasties of SUZANNE and RSFA/Pop Artery by Dr. King on 09/23/2022 for critical limb ischemia with gangrene right foot with left to right fem-fem bypass graft with stenosis in left external iliac artery Patient admitted to [facility] 11/04-11/24/2022 with sepsis/right 3rd to ulceration. S/P debridement & application of VAC of suprapubic abscess surrounding R>L PTFE Fem-Fem bypass and partial amputation of right 3rd toe due to gangrene on 11/04/[address] King S/P repeat debridement & application of VAC of suprapubic abscess surrounding R>L PTFE Fem-Fem bypass on 11/16/[address] King hospital course complicated by cardiac arrest x 2 and Covid infection. 2. CAD with Cath 11/12/22 - cath demonstrated 90% ostial LAD disease, chronic occlusion of the RCA. S/P PCI/stent to left main/LAD on 11/12/22 3. 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 King secondary to severe PAD & new left 3rd toe ulcer. 4. Moderate to severe MR. Previously evaluted for CABG and MVR but deemed too high risk for surgery and therefore stent to LM/LAD was performed. Since admission, Hbg has been stable at 14.6, 14.4 and 14.4. No significant drop. No recurrent BMs since admission. +FOBT. GI consulted. Continued observation recommended given stability of her Hbg. Inpatient vs outpatient scopes discussed. Abdominal pain improved. Currently her primary concern is intermittent dizziness. Feels as if she has "fluid in her ears". Also notes intermittent cough and SOB. has history of aspiration pneumonia. Chest xray is unremarkable. She denies chest pain. No orthopnea, PND or increased edema. She takes furosemide regularly. Last month she reported 10 lb weight gain but now back close to her baseline. Allergies Allergy/AdvReac Type Severity Reaction Status Date / Time methadone Allergy Severe "couldn't Verified 10/07/23 16:00 swallow/eyes coming out of head" nickel Allergy Severe swelling Verified 10/07/23 16:00 and infections nitroglycerin Allergy Intermediate DECREASED Verified 10/07/23 16:00 BP propoxyphene Allergy Intermediate edema to Verified 10/07/23 16:00 face/lips/tongue diclofenac Allergy Mild Rash Verified 10/07/23 16:00 hydrocodone Allergy Mild "severe Verified 10/07/23 16:00 constipation" levofloxacin [From Levaquin] Allergy Mild nausea/vomi Verified 10/07/23 16:00 ting Penicillins Allergy Mild severe Verified 10/07/23 16:00 diarrhea/rash sitagliptin [From Januvia] Allergy Mild rash Verified 10/07/23 16:00 "blood blisters" insulin aspart AdvReac Intermediate Rash Verified 10/07/23 16:00 [From Novolog U-100 Insulin aspart] insulin glargine AdvReac Intermediate Rash Verified 10/07/23 16:00 [From Lantus U-100 Insulin] broccoli AdvReac Mild Rash Verified 10/07/23 16:00 Home Medications Medication Instructions Recorded Confirmed Type aspirin 81 mg tablet,delayed 81 mg PO QAM 11/06/18 10/07/23 History release atorvastatin 40 mg tablet 40 mg PO QPM 11/06/18 10/07/23 History buspirone 15 mg tablet 15 mg PO BID 11/06/18 10/07/23 History clopidogrel 75 mg tablet 75 mg PO QAM 11/06/18 10/07/23 History albuterol sulfate 90 mcg/actuation 2 puff inhalation Q4 PRN Shortness 11/16/18 10/07/23 History aerosol inhaler (Ventolin HFA) Of Breath cholecalciferol (vitamin D3) 125 5,000 unit PO BID 03/21/19 10/07/23 History mcg (5,000 unit) tablet pantoprazole 40 mg tablet,delayed 40 mg PO BID 03/21/19 10/07/23 History release sucralfate 1 gram tablet (Carafate) 1 g PO ACHS 03/21/19 10/07/23 History duloxetine 30 mg capsule,delayed 30 mg PO AMHS 12/13/22 10/07/23 History release ipratropium 0.5 mg-albuterol 3 mg 3 ml inhalation Q4 PRN Shortness 12/13/22 10/07/23 History (2.5 mg base)/3 mL nebulization Of Breath Or Wheezing soln Bifidobacterium infantis 4 mg 4 mg PO DAILY 08/30/23 10/07/23 History capsule (Align) baclofen 5 mg tablet 5 mg PO TID muscle spasms 08/30/23 10/07/23 History calcium carbonate 600 mg PO QAM 08/30/23 10/07/23 History famotidine 20 mg tablet 20 mg PO QAM 08/30/23 10/07/23 History furosemide 20 mg tablet (Lasix) 20 mg PO QAM 08/30/23 10/07/23 History gabapentin 300 mg capsule 300 mg PO TID 08/30/23 10/07/23 History hydrocodone 5 mg-acetaminophen 325 1 tab PO Q6 PRN Pain 08/30/23 10/07/23 History mg tablet loratadine 10 mg tablet 10 mg PO QAM 08/30/23 10/07/23 History multivitamin 1 tab PO DAILY 08/30/23 10/07/23 History polyethylene glycol 3350 17 gram 17 g PO DAILY PRN Constipation 08/30/23 10/07/23 History oral powder packet (Miralax) nicotine 7 mg/24 hr daily 1 patch transdermal QAM #30 ea 09/04/23 10/07/23 Rx transdermal patch budesonide-formoterol HFA 80 2 inh inhalation BID 10/07/23 10/07/23 History mcg-4.5 mcg/actuation aerosol inhaler dulaglutide 0.75 mg/0.5 mL 0.75 mg subcut WK 10/07/23 10/07/23 History subcutaneous pen injector (Trulicity) empagliflozin 10 mg tablet 10 mg PO QAM PRN Only if BSG is 10/07/23 10/07/23 History (Jardiance) over 150 ferrous sulfate 325 mg (65 mg 325 mg PO BID 10/07/23 10/07/23 History iron) tablet (FeroSul) Patient History Medical History Osteoarthritis GI bleed Anemia Glaucoma bilt eyes On anticoagulant therapy plavix daily Coronary artery disease, occlusive Surgical History Status post femoropopliteal bypass surgery 11/06/[address] Jara---thrombectomy/Femoral-femoral bypass History of colonoscopy with polypectomy History of bilateral tubal ligation History of dilatation and curettage x3 History of repair of right rotator cuff x2 History of esophagogastroduodenoscopy (EGD) History of appendectomy History of tooth extraction most teeth History of endoscopic sinus surgery History of bilateral cataract extraction History of heart artery stent x1 before 2000? @ [facility] History of cardiac cath x2 both @ [facility]--2000 with 1 stent/2003--no stent, instead fem-pop bypass History of bronchoscopy Status post femoral-popliteal bypass surgery 2004 Family History Sister Family history of diabetes mellitus Family history of esophageal cancer Family hx of colon cancer Sister Family history of diabetes mellitus Sister Family history of diabetes mellitus Sister Family history of diabetes mellitus Sister Family history of diabetes mellitus Sister Family history of diabetes mellitus Sister Family history of diabetes mellitus Brother Family history of diabetes mellitus Brother Family history of diabetes mellitus Brother Family history of diabetes mellitus Other Diabetes No family history of adverse response to anesthesia Stroke Social History Smoking Status: Current every day smoker Tobacco Type: Cigarettes Cigarettes Per Day: 1 pack; Second Hand Exposure: Yes; Do You Dip or Chew Tobacco: No; Tobacco Cessation Education Requested by Patient: No Hx Alcohol Use: No Hx Substance Use: No Preferred Language: Tunisian Communication Ability: Effective Manager Route Required: No Beliefs That Will Affect Care: None Current Living Situation: Family Current Living Situation Comment: Grandson Feels Safe at Home: Yes Safety Concerns: Feels Safe At This Time Assistive Devices: Bedside Commode, Glasses, Oxygen - at Night and Wheelchair Review of Systems Review of Systems: All systems reviewed & are unremarkable except as noted in HPI & below Physical Exam Constitutional: WD/WN, vitals as above well developed and + obese; no acute distress Neck: + thick neck Respiratory: + cough; no labored breathing Auscult ation: + rhonchi and + wheezes Cardiovascular: Rate/Rhythm: regular rate and regular rhythm Heart Sounds: normal S1 and normal S2; no murmur Vessels: no JVD Extremities: no edema (No significant edema on right lower extremity. left BKA noted) Gastrointestinal (Abdomen): normal bowel sounds, soft, nontender, no hepatosplenomegaly Skin: no rashes, warm and dry Neurologic: PERRL, EOMI, accommodation nl, no face palsy, no dysarthria Psychiatric: A+Ox3, euthymic affect Results & Data Vital Signs (Past 12 Hours) Vital Signs Temp Pulse Pulse Resp BP BP BP 10/08/23 07:36 36.5 C 80 20 112/60 10/08/23 07:22 87 10/08/23 02:40 36.6 C 73 16 98/65 L 10/08/23 00:02 78 10/07/23 23:51 10/07/23 23:50 36.5 C 82 16 95/68 L 10/07/23 22:51 70 19 10/07/23 22:31 152/73 H 10/07/23 22:31 152/73 H 10/07/23 22:24 70 17 10/07/23 22:00 71 15 10/07/23 22:00 123/78 10/07/23 22:00 123/78 10/07/23 22:00 123/78 10/07/23 21:33 73 15 10/07/23 21:30 130/68 10/07/23 21:27 68 18 10/07/23 21:00 71 16 10/07/23 21:00 103/62 10/07/23 21:00 103/62 10/07/23 20:30 79 17 10/07/23 20:30 111/86 10/07/23 20:30 111/86 10/07/23 20:30 111/86 10/07/23 20:30 111/86 10/07/23 20:03 74 18 10/07/23 20:00 146/79 H 10/07/23 20:00 146/79 H 10/07/23 19:57 77 15 Pulse Ox O2 Del Method O2 Flow Rate 10/08/23 07:36 96 Nasal Cannula 2 10/08/23 07:22 10/08/23 02:40 98 Nasal Cannula 2.5 10/08/23 00:02 10/07/23 23:51 Nasal Cannula 3 10/07/23 23:50 98 Nasal Cannula 3 10/07/23 22:51 10/07/23 22:31 10/07/23 22:31 10/07/23 22:24 10/07/23 22:00 10/07/23 22:00 10/07/23 22:00 10/07/23 22:00 10/07/23 21:33 10/07/23 21:30 10/07/23 21:27 10/07/23 21:00 10/07/23 21:00 10/07/23 21:00 10/07/23 20:30 10/07/23 20:30 10/07/23 20:30 10/07/23 20:30 10/07/23 20:30 10/07/23 20:03 10/07/23 20:00 10/07/23 20:00 10/07/23 19:57 Laboratory Results Cardiac Enzymes 10/07/23 Range/Units 13:44 AST 31 (13-39) U/L Troponin I High Sens 13.6 (0-14) pg/ml CBC 10/07/23 10/07/23 10/08/23 Range/Units 13:44 21:29 06:51 WBC 8.58 6.33 (4.8-10.8) K/ul RBC 5.38 5.34 (4.20-5.40) M/uL Hgb 14.6 14.4 14.4 (12.0-16.0) g/dl Hct 47.2 H 46.4 46.4 (37.0-47.0) % Plt Count 299 252 (130-400) K/uL Neut # (Auto) 6.40 (1.40-6.50) K/uL Lymph # (Auto) 1.38 (1.20-3.40) K/uL [place] # (Auto) 0.68 H (0.11-0.59) K/uL Eos # (Auto) 0.05 (0.00-0.50) K/uL Baso # (Auto) 0.04 (0.00-0.20) K/uL Comprehensive Metabolic Panel 10/07/23 10/08/23 Range/Units 13:44 06:51 Sodium 133 L 139 (136-145) mmol/L Potassium 5.0 4.2 (3.5-5.1) mmol/L Chloride 96 L 103 (98-107) mmol/L Carbon Dioxide 31 31 (21-32) mmol/L BUN 17 13 (6-23) mg/dl Creatinine 1.05 0.92 (0.6-1.2) mg/dl Glucose 184 H 130 H (70-99(Fasting)) mg/dl Calcium 10.2 9.4 (8.6-10.3) mg/dl AST 31 (13-39) U/L ALT 17 (7-52) U/L Alkaline Phosphatase 99 (34-104) U/L Total Protein 8.1 (6.0-8.3) gm/dl Albumin 4.4 (3.4-5.0) gm/dl Intake and Output 10/07/23 10/08/23 10/08/23 22:59 06:59 14:59 Intake Total 100 / 1096.667 876.667 / 0256.121 7419 / 1100 Balance 100 / 1096.667 876.667 / 4326.390 6087 / 1100 Intake: IV 100 / 1096.667 876.667 / 4603.289 7335 / 1100 PANTOprazole 40 mg In Dextrose 100 / 276.667 176.667 / 276.667 100 / 100 5% Mini-B 100 ml @ 8 MG/HR 20 mls/hr IV Q5H [facility] Rx#:[id number] Sodium Chloride 0.9% 1,000 ml @ 700 / 700 1000 / 1000 100 mls/hr IV .Q10H [facility] Rx#: [id number] Other: Other Intake Source NPO Weight 71.758 kg Weight Measurement Method Built in [facility] Diagnostic Findings Telemetry reviewed: NSR in the 70-80's, occ PVC EKG reviewed from admission: Normal sinus rhythm Prolonged QT 402/486 ms When compared with ECG of 07-OCT-2023 13:40, Premature ventricular complexes are no longer Present Abdomen/Pelvis CT 10/07/23 13:31 IMPRESSION: 1. No bowel wall thickening or obstruction. 2. Normal appendix. 3. Moderate fecal retention. 4. Mild bladder wall thickening which has improved. 5. Additional findings as described above. Chest X-Ray 10/07/23 13:31 1. No acute process within the chest. 2. Re demonstration of the 11 mm irregular nodule within the right upper lobe. Head CT 10/07/23 13:31 Impression: 1. No acute infarct or intracranial hemorrhage. 2. 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 Outside data record reviewed: Echo reviewed from [facility] dated Nov 2022: Normal LV systolic function, normal wall motion. Moderate MR. Medications Administered Current Inpatient Medications Acetaminophen (Acetaminophen 325 Mg Tab) 650 mg PO Q4H PRN PRN Reason: pain/fever Stop: 11/06/23 20:31 Hydrocodone Bitart/Acetaminophen (Hydrocodone/Acetamophen 5/325mg Tab) 1 tab PO Q6H PRN PRN Reason: Pain Stop: 10/21/23 20:31 Last Admin: 10/08/23 09:20 Dose: 1 tab Atorvastatin Calcium (Atorvastatin 40 Mg Tab) 40 mg PO QPM [facility] Stop: 11/06/23 20:59 Last Admin: 10/07/23 22:08 Dose: 40 mg Baclofen (Baclofen 10 Mg Tab) 5 mg PO TID [facility] Stop: 11/06/23 20:59 Last Admin: 10/08/23 13:22 Dose: 5 mg Buspirone HCl (Buspirone 15 Mg Tab) 15 mg PO BID [facility] Stop: 11/06/23 20:59 Last Admin: 10/08/23 09:02 Dose: 15 mg Clopidogrel Bisulfate (Clopidogrel Bisulfate 75 Mg Tab) 75 mg PO QAM [facility] Stop: 11/07/23 12:44 Last Admin: 10/08/23 13:22 Dose: 75 mg Dextrose (Dextrose 50% 50 Ml Syringe) 25 - 50 ml IV UD PRN; Protocol PRN Reason: Hypoglycemia Protocol Stop: 11/06/23 20:31 Duloxetine HCl (Duloxetine Hcl 30 Mg Cap) 30 mg PO AMHS [facility] Stop: 11/06/23 20:59 Last Admin: 10/08/23 09:02 Dose: 30 mg Famotidine (Famotidine 20 Mg Tab) 20 mg PO QAM [facility] Stop: 11/07/23 08:59 Last Admin: 10/08/23 08:11 Dose: 20 mg Ferrous Sulfate (Ferrous Sulfate 325 Mg Tab) 325 mg PO BID [facility] Stop: 11/06/23 20:59 Last Admin: 10/08/23 09:02 Dose: 325 mg Fluticasone/Vilanterol (Fluticasone/Vilanterol 100/25mcg 14 Puffs/Inhaler) 1 puffs INH DAILY [facility]; Protocol Stop: 11/07/23 08:59 Last Admin: 10/08/23 08:11 Dose: 1 puffs Gabapentin (Gabapentin 300 Mg Cap) 300 mg PO TID [facility] Stop: 11/06/23 20:59 Last Admin: 10/08/23 09:03 Dose: 300 mg Glucagon (Glucagon For Inj 1 Mg Vial) 1 mg SQ UD PRN; Protocol PRN Reason: Hypoglycemia Protocol Stop: 11/06/23 20:31 Glucose (Glucose 40% Gel 15 Gm Tube) 15 - 30 gm PO UD PRN; Protocol PRN Reason: Hypoglycemia Protocol Stop: 11/06/23 20:31 Glucose (Glucose 10 Tab/Tube) 4 - 8 tab PO UD PRN; Protocol PRN Reason: Hypoglycemia Treatment Stop: 11/06/23 20:31 Pantoprazole Sodium 40 mg/ (Dextrose) 100 mls @ 20 mls/hr IV Q5H [facility] Stop: 11/06/23 13:59 Last Admin: 10/08/23 10:13 Dose: 8 mg/hr, 20 mls/hr Insulin Aspart (Insulin Aspart Per Unit Charge) 0 units SC [facility] Stop: 11/06/23 20:59 Last Admin: 10/08/23 12:02 Dose: Not Given Loratadine (Loratadine 10 Mg Tab) 10 mg PO QAM [facility] Stop: 11/07/23 08:59 Last Admin: 10/08/23 08:12 Dose: 10 mg Miscellaneous (Carbohydrates For Hypoglycemia ) 15 - 30 gm PO UD PRN PRN Reason: Hypoglycemia Protocol Stop: 11/06/23 20:31 Miscellaneous (Remove Nicoderm Patch) 1 each N/A DAILY@0859 [facility] Stop: 11/07/23 08:58 Last Admin: 10/08/23 08:20 Dose: Not Given Nicotine (Nicotine 14 Mg/24 Hr Patch) 1 patch TD QAM [facility] Stop: 11/07/23 08:59 Last Admin: 10/08/23 08:15 Dose: 1 patch Sucralfate (Sucralfate 1 Gm Tab) 1 gm PO ACHS [facility] Stop: 11/06/23 20:59 Last Admin: 10/08/23 12:53 Dose: 1 gm
[2023-10-08] MEDS: FLUTICASONE/VILANTEROL 100/25MCG 14 PUFFS/INHALER INH SCH (08:11)
[2023-10-08] MEDS: FAMOTIDINE 20 MG TAB PO SCH (08:11)
[2023-10-08] MEDS: LORATADINE 10 MG TAB PO SCH (08:12)
[2023-10-08] MEDS: NICOTINE 14 MG/24 HR PATCH TD SCH (08:15)
--- NOTE | 2023-10-08 09:13 | Gastrointestinal Consultation ---
Date of Consultation October 08, 2023 Assessment & Plan (1) Melena: Pleasant elderly lady with multiple medical issues who has had 24 hours nausea and melenic stools. Interestingly her stools were black but they were solid and formed as well. I find it hard to imagine she would develop ulcer disease witho ut NSAID use (although she does smoke) and while on four different medications for her stomach. I wonder if she didn't have an acute infectious process to cause her symptoms. Her H/H have been rock steady despite receiving fluids to rehydrate. She probably does need evaluation with both EGD and colonoscopy but timing is the issue. Since her H/H have been very steady and normal and she has been on Plavix I would watch her for the next several days. Decision can be made based on her symptoms as to elective outpatient procedures vs procedures done later while in the hospital. History of Present Illness Reason for Consultation: ? GI bleeding Attending Physician: Jimmy Redd MD History of Present Illness 73 year old female who says that on Tuesday she became nauseated. They put her leg on and she stood and fell. She does not think it was related to her leg but to her being nauseated and dizzy. She then "started bleeding". By that she means she had real black stools. The stools were formed and solid though. She had two yesterday and one last night. She denies fever of chills. She was nauseated without vomiting and obviously she wasn't having diarrhea. She denies using PeptoBismol for her stomach. She does take iron but states it only makes her stools dark brown. She has "lost 100 pounds" without trying. She says her last colonoscopy was about four years ago. She has an EGD in our records that shows evidence of Pendleton's esophagus. She denies NSAID use and is on pantoprazole, TUMS, famotidine and sucralfate for her stomach. Admit hemoglobin was 14.4 and subsequent hemoglobin nine hours later was 14.4 as well. Allergies Allergy/AdvReac Type Severity Reaction Status Date / Time methadone Allergy Severe "couldn't Verified 10/07/23 16:00 swallow/eyes coming out of head" nickel Allergy Severe swelling Verified 10/07/23 16:00 and infections nitroglycerin Allergy Intermediate DECREASED Verified 10/07/23 16:00 BP propoxyphene Allergy Intermediate edema to Verified 10/07/23 16:00 face/lips/tongue diclofenac Allergy Mild Rash Verified 10/07/23 16:00 hydrocodone Allergy Mild "severe Verified 10/07/23 16:00 constipation" levofloxacin [From Levaquin] Allergy Mild nausea/vomi Verified 10/07/23 16:00 ting Penicillins Allergy Mild severe Verified 10/07/23 16:00 diarrhea/rash sitagliptin [From Januvia] Allergy Mild rash Verified 10/07/23 16:00 "blood blisters" insulin aspart AdvReac Intermediate Rash Verified 10/07/23 16:00 [From Novolog U-100 Insulin aspart] insulin glargine AdvReac Intermediate Rash Verified 10/07/23 16:00 [From Lantus U-100 Insulin] broccoli AdvReac Mild Rash Verified 10/07/23 16:00 Home Medications Medication Instructions Recorded Confirmed Type aspirin 81 mg tablet,delayed 81 mg PO QAM 11/06/18 10/07/23 History release atorvastatin 40 mg tablet 40 mg PO QPM 11/06/18 10/07/23 History buspirone 15 mg tablet 15 mg PO BID 11/06/18 10/07/23 History clopidogrel 75 mg tablet 75 mg PO QAM 11/06/18 10/07/23 History albuterol sulfate 90 mcg/actuation 2 puff inhalation Q4 PRN Shortness 11/16/18 10/07/23 History aerosol inhaler (Ventolin HFA) Of Breath cholecalciferol (vitamin D3) 125 5,000 unit PO BID 03/21/19 10/07/23 History mcg (5,000 unit) tablet pantoprazole 40 mg tablet,delayed 40 mg PO BID 03/21/19 10/07/23 History release sucralfate 1 gram tablet (Carafate) 1 g PO ACHS 03/21/19 10/07/23 History duloxetine 30 mg capsule,delayed 30 mg PO AMHS 12/13/22 10/07/23 History release ipratropium 0.5 mg-albuterol 3 mg 3 ml inhalation Q4 PRN Shortness 12/13/22 10/07/23 History (2.5 mg base)/3 mL nebulization Of Breath Or Wheezing soln Bifidobacterium infantis 4 mg 4 mg PO DAILY 08/30/23 10/07/23 History capsule (Align) baclofen 5 mg tablet 5 mg PO TID muscle spasms 08/30/23 10/07/23 History calcium carbonate 600 mg PO QAM 08/30/23 10/07/23 History famotidine 20 mg tablet 20 mg PO QAM 08/30/23 10/07/23 History furosemide 20 mg tablet (Lasix) 20 mg PO QAM 08/30/23 10/07/23 History gabapentin 300 mg capsule 300 mg PO TID 08/30/23 10/07/23 History hydrocodone 5 mg-acetaminophen 325 1 tab PO Q6 PRN Pain 08/30/23 10/07/23 History mg tablet loratadine 10 mg tablet 10 mg PO QAM 08/30/23 10/07/23 History multivitamin 1 tab PO DAILY 08/30/23 10/07/23 History polyethylene glycol 3350 17 gram 17 g PO DAILY PRN Constipation 08/30/23 10/07/23 History oral powder packet (Miralax) nicotine 7 mg/24 hr daily 1 patch transdermal QAM #30 ea 09/04/23 10/07/23 Rx transdermal patch budesonide-formoterol HFA 80 2 inh inhalation BID 10/07/23 10/07/23 History mcg-4.5 mcg/actuation aerosol inhaler dulaglutide 0.75 mg/0.5 mL 0.75 mg subcut WK 10/07/23 10/07/23 History subcutaneous pen injector (Trulicity) empagliflozin 10 mg tablet 10 mg PO QAM PRN Only if BSG is 10/07/23 10/07/23 History (Jardiance) over 150 ferrous sulfate 325 mg (65 mg 325 mg PO BID 10/07/23 10/07/23 History iron) tablet (FeroSul) Patient History Medical History Osteoarthritis GI bleed Anemia Glaucoma bilt eyes On anticoagulant therapy plavix daily Coronary artery disease, occlusive Surgical History Status post femoropopliteal bypass surgery 11/06/[address] Jara---thrombectomy/Femoral-femoral bypass History of colonoscopy with polypectomy History of bilateral tubal ligation History of dilatation and curettage x3 History of repair of right rotator cuff x2 History of esophagogastroduodenoscopy (EGD) History of appendectomy History of tooth extraction most teeth History of endoscopic sinus surgery History of bilateral cataract extraction History of heart artery stent x1 before 2000? @ [facility] History of cardiac cath x2 both @ [facility]--2000 with 1 stent/2003--no stent, instead fem-pop bypass History of bronchoscopy Status post femoral-popliteal bypass surgery 2004 Family History Sister Family history of diabetes mellitus Family history of esophageal cancer Family hx of colon cancer Sister Family history of diabetes mellitus Sister Family history of diabetes mellitus Sister Family history of diabetes mellitus Sister Family history of diabetes mellitus Sister Family history of diabetes mellitus Sister Family history of diabetes mellitus Brother Family history of diabetes mellitus Brother Family history of diabetes mellitus Brother Family history of diabetes mellitus Other Diabetes No family history of adverse response to anesthesia Stroke Social History Smoking Status: Current every day smoker Tobacco Type: Cigarettes Cigarettes Per Day: 1 pack; Second Hand Exposure: Yes; Do You Dip or Chew Tobacco: No; Tobacco Cessation Education Requested by Patient: No Hx Alcohol Use: No Hx Substance Use: No Preferred Language: Samoan Communication Ability: Effective [employer] 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 Beliefs That Will Affect Care: None Current Living Situation: Family Current Living Situation Comment: Grandson Feels Safe at Home: Yes Safety Concerns: Feels Safe At This Time Assistive Devices: Glasses, Oxygen - at Night, Oxygen - Continuous and Wheelchair Review of Systems Review of Systems: All systems reviewed & are unremarkable except as noted in HPI & below Physical Exam Constitutional: WD/WN, vitals as above no acute distress Eyes: PERRL, conjunctivae normal, anicteric sclerae ENMT: external ear and nose normal, oropharynx normal Neck: trachea midline, no thyromegaly Respiratory: normal respiratory effort, lungs clear to auscultation Cardiovascular: RRR, no murmur, no edema Gastrointestinal (Abdomen): normal bowel sounds, soft, nontender, no hepatosplenomegaly Musculoskeletal: Extremities: no cyanosis and no clubbing Skin: no rashes, warm and dry Neurologic: PERRL, EOMI, accommodation nl, no face palsy, no dysarthria Psychiatric: Orientation: alert and oriented x 3 Results & Data Vital Signs (Past 12 Hours) Vital Signs Temp Pulse Pulse Resp BP BP BP 10/08/23 08:47 10/08/23 07:36 36.5 C 80 20 112/60 10/08/23 07:22 87 10/08/23 02:40 36.6 C 73 16 98/65 L 10/08/23 00:02 78 10/07/23 23:51 10/07/23 23:50 36.5 C 82 16 95/68 L 10/07/23 22:51 70 19 10/07/23 22:31 152/73 H 10/07/23 22:31 152/73 H 10/07/23 22:24 70 17 10/07/23 22:00 71 15 10/07/23 22:00 123/78 10/07/23 22:00 123/78 10/07/23 22:00 123/78 10/07/23 21:33 73 15 10/07/23 21:30 130/68 10/07/23 21:27 68 18 Pulse Ox O2 Del Method O2 Flow Rate 10/08/23 08:47 Nasal Cannula 10/08/23 07:36 96 Nasal Cannula 2 10/08/23 07:22 10/08/23 02:40 98 Nasal Cannula 2.5 10/08/23 00:02 10/07/23 23:51 Nasal Cannula 3 10/07/23 23:50 98 Nasal Cannula 3 10/07/23 22:51 10/07/23 22:31 10/07/23 22:31 10/07/23 22:24 10/07/23 22:00 10/07/23 22:00 10/07/23 22:00 10/07/23 22:00 10/07/23 21:33 10/07/23 21:30 10/07/23 21:27 Laboratory Results 10/08/23 10/07/23 10/07/23 Range/Units 06:51 22:17 21:29 WBC 6.33 (4.8-10.8) K/ul RBC 5.34 (4.20-5.40) M/uL Hgb 14.4 14.4 (12.0-16.0) g/dl POC Hgb (12.0-16.0) g/dl Hct 46.4 46.4 (37.0-47.0) % POC Hct (37-47) % MCV 86.9 (80.0-100.0) fL MCH 27.0 (25.0-34.0) pg MCHC 31.0 L (32.0-36.0) g/dL RDW Std Deviation 61.5 H (36.4-46.3) fL RDW Coeff of Shahrzad 19.8 H (11.5-14.5) % Plt Count 252 (130-400) K/uL MPV 9.9 (9.4-12.4) fL Immature Gran % (Auto) % Neut % (Auto) % Lymph % (Auto) % [place] % (Auto) % Eos % (Auto) % Baso % (Auto) % Neut # (Auto) (1.40-6.50) K/uL Lymph # (Auto) (1.20-3.40) K/uL [place] # (Auto) (0.11-0.59) K/uL Eos # (Auto) (0.00-0.50) K/uL Baso # (Auto) (0.00-0.20) K/uL Immature Gran # (Auto) (0.01-0.20) K/uL RBC Morphology POC Sodium (135-144) mmol/L Sodium 139 (136-145) mmol/L POC Potassium (3.3-5.0) mmol/L Potassium 4.2 (3.5-5.1) mmol/L POC Chloride (101-112) mmol/L Chloride 103 (98-107) mmol/L Carbon Dioxide 31 (21-32) mmol/L POC Total CO2 (24-31) mmol/L Anion Gap 5 (3-11) POC Anion Gap (16-25) mmol/L POC BUN (7-18) mg/dl BUN 13 (6-23) mg/dl Creatinine 0.92 (0.6-1.2) mg/dl POC Creatinine (0.6-1.3) mg/dl Est Cr Clr Drug Dosing 49.8 ml/min Est GFR ( Amer) 71.1 ml/min Est GFR (Non-Af Amer) 61.3 ml/min BUN/Creatinine Ratio 14.1 (10-20) Glucose 130 H (70-99(Fasting)) mg/dl POC Glucose 122 H (70-99) mg/dl POC Glucose (other) (70-99) mg/dl Lactate (0.4-2.0) mmol/L Calcium 9.4 (8.6-10.3) mg/dl POC Ioniz Calcium Nora (1.12-1.32) mmol/l Magnesium (1.7-2.4) mg/dl Total Bilirubin (0.2-1.0) mg/dl AST (13-39) U/L ALT (7-52) U/L Alkaline Phosphatase (34-104) U/L Troponin I High Sens (0-14) pg/ml Total Protein (6.0-8.3) gm/dl Albumin (3.4-5.0) gm/dl Globulin (2.5-4.0) gm/dl Albumin/Globulin Ratio (0.9-2) Lipase (11-82) U/L TSH (0.300-4.500) uIu/ml Urine Color Urine Appearance (Clear) Urine pH (4.5-7.5) Ur Specific [place] (1.000-1.030) Urine Protein (Negative) Urine Glucose (UA) (Negative) Urine Ketones (Negative) Urine Blood (Negative) Urine Nitrite (Negative) Urine Bilirubin (Negative) Urine Urobilinogen (Negative) Ur Leukocyte Esterase (Negative) Urine WBC (Auto) (0-5) /hpf Urine RBC (Auto) (0-2) /hpf U Hyaline Cast (Auto) (0-2) /lpf U Epithel Cells (Auto) (0-2) /hpf Urine Bacteria (Auto) (None Seen) POC Stool Occult Blood (Negative) Adenovirus (PCR) (NotDetected) B. pertussis DNA (PCR) (NotDetected) B.parapertussis DNA PCR (NotDetected) C. pneumoniae DNA (PCR) (NotDetected) Coronavirus OC43 (PCR) (NotDetected) Coronavirus HKU1 (PCR) (NotDetected) Coronavirus 229E (PCR) (NotDetected) SARS-CoV-2 (PCR) (NotDetected) Coronavirus NL63 (PCR) (NotDetected) Human Metapneumovir PCR (NotDetected) Influenza Type A (PCR) (NotDetected) Influenza Type B (PCR) (NotDetected) M. pneumoniae (PCR) (NotDetected) Parainfluenza 1 (PCR) (NotDetected) Parainfluenza 2 (PCR) (NotDetected) Parainfluenza 3 (PCR) (NotDetected) Parainfluenza 4 (PCR) (NotDetected) RSV (PCR) (NotDetected) Entero/Rhino (PCR) (NotDetected) Blood Type Antibody Screen 10/07/23 10/07/23 10/07/23 Range/Units 14:00 13:58 13:52 WBC (4.8-10.8) K/ul RBC (4.20-5.40) M/uL Hgb (12.0-16.0) g/dl POC Hgb 16.3 H (12.0-16.0) g/dl Hct (37.0-47.0) % POC Hct 48 H (37-47) % MCV (80.0-100.0) fL MCH (25.0-34.0) pg MCHC (32.0-36.0) g/dL RDW Std Deviation (36.4-46.3) fL RDW Coeff of Shahrzad (11.5-14.5) % Plt Count (130-400) K/uL MPV (9.4-12.4) fL Immature Gran % (Auto) % Neut % (Auto) % Lymph % (Auto) % [place] % (Auto) % Eos % (Auto) % Baso % (Auto) % Neut # (Auto) (1.40-6.50) K/uL Lymph # (Auto) (1.20-3.40) K/uL [place] # (Auto) (0.11-0.59) K/uL Eos # (Auto) (0.00-0.50) K/uL Baso # (Auto) (0.00-0.20) K/uL Immature Gran # (Auto) (0.01-0.20) K/uL RBC Morphology POC Sodium 134 L (135-144) mmol/L Sodium (136-145) mmol/L POC Potassium 4.5 (3.3-5.0) mmol/L Potassium (3.5-5.1) mmol/L POC Chloride 96 L (101-112) mmol/L Chloride (98-107) mmol/L Carbon Dioxide (21-32) mmol/L POC Total CO2 29 (24-31) mmol/L Anion Gap (3-11) POC Anion Gap 15.0 L (16-25) mmol/L POC BUN 17 (7-18) mg/dl BUN (6-23) mg/dl Creatinine (0.6-1.2) mg/dl POC Creatinine 1.1 (0.6-1.3) mg/dl Est Cr Clr Drug Dosing ml/min Est GFR ( Amer) ml/min Est GFR (Non-Af Amer) ml/min BUN/Creatinine Ratio (10-20) Glucose (70-99(Fasting)) mg/dl POC Glucose (70-99) mg/dl POC Glucose (other) 176 H (70-99) mg/dl Lactate (0.4-2.0) mmol/L Calcium (8.6-10.3) mg/dl POC Ioniz Calcium Nora 1.16 (1.12-1.32) mmol/l Magnesium (1.7-2.4) mg/dl Total Bilirubin (0.2-1.0) mg/dl AST (13-39) U/L ALT (7-52) U/L Alkaline Phosphatase (34-104) U/L Troponin I High Sens (0-14) pg/ml Total Protein (6.0-8.3) gm/dl Albumin (3.4-5.0) gm/dl Globulin (2.5-4.0) gm/dl Albumin/Globulin Ratio (0.9-2) Lipase (11-82) U/L TSH (0.300-4.500) uIu/ml Urine Color Urine Appearance (Clear) Urine pH (4.5-7.5) Ur Specific [place] (1.000-1.030) Urine Protein (Negative) Urine Glucose (UA) (Negative) Urine Ketones (Negative) Urine Blood (Negative) Urine Nitrite (Negative) Urine Bilirubin (Negative) Urine Urobilinogen (Negative) Ur Leukocyte Esterase (Negative) Urine WBC (Auto) (0-5) /hpf Urine RBC (Auto) (0-2) /hpf U Hyaline Cast (Auto) (0-2) /lpf U Epithel Cells (Auto) (0-2) /hpf Urine Bacteria (Auto) (None Seen) POC Stool Occult Blood Positive A (Negative) Adenovirus (PCR) Not Detected (NotDetected) B. pertussis DNA (PCR) Not Detected (NotDetected) B.parapertussis DNA PCR Not Detected (NotDetected) C. pneumoniae DNA (PCR) Not Detected (NotDetected) Coronavirus OC43 (PCR) Not Detected (NotDetected) Coronavirus HKU1 (PCR) Not Detected (NotDetected) Coronavirus 229E (PCR) Not Detected (NotDetected) SARS-CoV-2 (PCR) Not Detected (NotDetected) Coronavirus NL63 (PCR) Not Detected (NotDetected) Human Metapneumovir PCR Not Detected (NotDetected) Influenza Type A (PCR) Not Detected (NotDetected) Influenza Type B (PCR) Not Detected (NotDetected) M. pneumoniae (PCR) Not Detected (NotDetected) Parainfluenza 1 (PCR) Not Detected (NotDetected) Parainfluenza 2 (PCR) Not Detected (NotDetected) Parainfluenza 3 (PCR) Not Detected (NotDetected) Parainfluenza 4 (PCR) Not Detected (NotDetected) RSV (PCR) Not Detected (NotDetected) Entero/Rhino (PCR) Not Detected (NotDetected) Blood Type A Positive Antibody Screen NEGATIVE 10/07/23 10/07/23 Range/Units 13:44 13:21 WBC 8.58 (4.8-10.8) K/ul RBC 5.38 (4.20-5.40) M/uL Hgb 14.6 (12.0-16.0) g/dl POC Hgb (12.0-16.0) g/dl Hct 47.2 H (37.0-47.0) % POC Hct (37-47) % MCV 87.7 (80.0-100.0) fL MCH 27.1 (25.0-34.0) pg MCHC 30.9 L (32.0-36.0) g/dL RDW Std Deviation 62.2 H (36.4-46.3) fL RDW Coeff of Shahrzad 20.3 H (11.5-14.5) % Plt Count 299 (130-400) K/uL MPV 10.4 (9.4-12.4) fL Immature Gran % (Auto) 0.3 % Neut % (Auto) 74.6 % Lymph % (Auto) 16.1 % [place] % (Auto) 7.9 % Eos % (Auto) 0.6 % Baso % (Auto) 0.5 % Neut # (Auto) 6.40 (1.40-6.50) K/uL Lymph # (Auto) 1.38 (1.20-3.40) K/uL [place] # (Auto) 0.68 H (0.11-0.59) K/uL Eos # (Auto) 0.05 (0.00-0.50) K/uL Baso # (Auto) 0.04 (0.00-0.20) K/uL Immature Gran # (Auto) 0.03 (0.01-0.20) K/uL RBC Morphology Unremarkable POC Sodium (135-144) mmol/L Sodium 133 L (136-145) mmol/L POC Potassium (3.3-5.0) mmol/L Potassium 5.0 (3.5-5.1) mmol/L POC Chloride (101-112) mmol/L Chloride 96 L (98-107) mmol/L Carbon Dioxide 31 (21-32) mmol/L POC Total CO2 (24-31) mmol/L Anion Gap 6 (3-11) POC Anion Gap (16-25) mmol/L POC BUN (7-18) mg/dl BUN 17 (6-23) mg/dl Creatinine 1.05 (0.6-1.2) mg/dl POC Creatinine (0.6-1.3) mg/dl Est Cr Clr Drug Dosing 44.7 ml/min Est GFR ( Amer) 60.6 ml/min Est GFR (Non-Af Amer) 52.3 ml/min BUN/Creatinine Ratio 16.2 (10-20) Glucose 184 H (70-99(Fasting)) mg/dl POC Glucose (70-99) mg/dl POC Glucose (other) (70-99) mg/dl Lactate 1.8 (0.4-2.0) mmol/L Calcium 10.2 (8.6-10.3) mg/dl POC Ioniz Calcium Nora (1.12-1.32) mmol/l Magnesium 2.3 (1.7-2.4) mg/dl Total Bilirubin 0.6 (0.2-1.0) mg/dl AST 31 (13-39) U/L ALT 17 (7-52) U/L Alkaline Phosphatase 99 (34-104) U/L Troponin I High Sens 13.6 (0-14) pg/ml Total Protein 8.1 (6.0-8.3) gm/dl Albumin 4.4 (3.4-5.0) gm/dl Globulin 3.7 (2.5-4.0) gm/dl Albumin/Globulin Ratio 1.2 (0.9-2) Lipase 17 (11-82) U/L TSH 1.078 (0.300-4.500) uIu/ml Urine Color Yellow Urine Appearance Cloudy A (Clear) Urine pH 6.0 (4.5-7.5) Ur Specific [place] 1.015 (1.000-1.030) Urine Protein Negative (Negative) Urine Glucose (UA) 3+ H (Negative) Urine Ketones Negative (Negative) Urine Blood 1+ H (Negative) Urine Nitrite Negative (Negative) Urine Bilirubin Negative (Negative) Urine Urobilinogen Negative (Negative) Ur Leukocyte Esterase Negative (Negative) Urine WBC (Auto) 6-10 H (0-5) /hpf Urine RBC (Auto) 6-10 H (0-2) /hpf U Hyaline Cast (Auto) 0-2 (0-2) /lpf U Epithel Cells (Auto) >20 H (0-2) /hpf Urine Bacteria (Auto) 4+ H (None Seen) POC Stool Occult Blood (Negative) Adenovirus (PCR) (NotDetected) B. pertussis DNA (PCR) (NotDetected) B.parapertussis DNA PCR (NotDetected) C. pneumoniae DNA (PCR) (NotDetected) Coronavirus OC43 (PCR) (NotDetected) Coronavirus HKU1 (PCR) (NotDetected) Coronavirus 229E (PCR) (NotDetected) SARS-CoV-2 (PCR) (NotDetected) Coronavirus NL63 (PCR) (NotDetected) Human Metapneumovir PCR (NotDetected) Influenza Type A (PCR) (NotDetected) Influenza Type B (PCR) (NotDetected) M. pneumoniae (PCR) (NotDetected) Parainfluenza 1 (PCR) (NotDetected) Parainfluenza 2 (PCR) (NotDetected) Parainfluenza 3 (PCR) (NotDetected) Parainfluenza 4 (PCR) (NotDetected) RSV (PCR) (NotDetected) Entero/Rhino (PCR) (NotDetected) Blood Type Antibody Screen Diagnostic Findings Abdomen/Pelvis CT 10/07/23 13:[address] WITH IV CONTRAST CT DOSE: 1892.85 mGy.cm HISTORY: weak, headache, bloody stool, dizzy TECHNIQUE: Multiaxial CT images of the abdomen and pelvis were performed following the use of intravenous contrast. A dose lowering technique was utilized adhering to the principles of ALARA. COMPARISON STUDY: Abdomen and pelvis CT 08/30/2023. FINDINGS: Mild dependent changes within the lung bases. Mild interstitial thickening which could be chronic. No pneumoperitoneum. No pneumatosis. There are old bilateral rib fractures. There is an old distal sacral fracture noted. 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 There is a femoral- femoral bypass graft which is patent. Subtle nodular contour to the liver suggestive of mild cirrhosis. No hepatic masses. The main portal vein is patent. The gallbladder, pancreas, spleen, and adrenal glands are within normal limits. A few subcentimeter bilateral renal hypodense lesions are too small to characterize but statistically represent cysts. No hydronephrosis. Calcified plaque within the normal caliber abdominal aorta. No retroperitoneal or pelvic lymphadenopathy. No pelvic free fluid. Prior hysterectomy. Mild bladder wall thickening has improved. A superior mesenteric artery stent appears patent. Moderate fecal retention. A few colonic diverticula. No evidence for acute diverticulitis. No bowel wall thickening or obstruction. Normal appendix. IMPRESSION: 1. No bowel wall thickening or obstruction. 2. Normal appendix. 3. Moderate fecal retention. 4. Mild bladder wall thickening which has improved. 5. Additional findings as described above. ACT 112: Negative or not required by law. Electronically signed by: Erick Crandall M.D. 10/07/2023 2:51 PM Chest X-Ray 10/07/23 13:31 XR chest 1V portable HISTORY: weakness COMPARISON: Chest 08/30/2023. FINDINGS: No pneumothorax. No pleural effusions. The cardiac silhouette is top normal in size. No new focal lung consolidations to suggest a pneumonia. No evidence for pulmonary edema. Mild interstitial thickening which is likely chronic. Calcifications within the aortic knob. Old left-sided rib fractures. There is again noted an 11 mm irregular nodule within the right upper lobe. IMPRESSION: 1. No acute process within the chest. 2. Redemonstration of the 11 mm irregular nodule within the right upper lobe. ACT 112: Negative or not required by law. Electronically signed by: Erick Crandall M.D. 10/07/2023 2:[address] 10/07/23 13:[address] DOSE: HISTORY: weak, headache, bloody stool, dizzy TECHNIQUE: Multiaxial CT images of the head were performed without the use of intravenous contrast. Automated exposure control was utilized for this study. A dose lowering technique was utilized adhering to the principles of ALARA. Comparison: Head CT 01/04/2023. Findings: The paranasal sinuses and mastoid air cells are clear. There is an old large right MCA territory infarct again noted. There is no mass, hematoma, midline shift, acute infarct. Mild atrophy and microvascular ischemic changes remain unchanged. The calvarium and skull base are intact. Impression: 1. No acute infarct or intracranial hemorrhage. 2. 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 ACT 112: Negative or not required by law. Electronically signed by: Erick Crandall M.D. 10/07/2023 3:08 PM
[2023-10-08] MEDS: CLOPIDOGREL BISULFATE 75 MG TAB PO SCH (13:22)
--- NOTE | 2023-10-08 16:29 | Hospitalist Progress Note ---
Date of Service October 08, 2023 Assessment & Plan (1) GI bleed: Plan: Admit to [facility] with telemetry Patient presenting from home with reports of diarrhea that she describes as black and tarry. Patient is on DAPT for extensive PVD and CAD history. In the ED, Hgb 14.6. Suspect some component of hemoconcentration. Stool was heme positive S/p Protonix bolus and drip in the ED, will continue with IVF Serial H&H Hold ASA and Plavix for now, resume promptly once stable given extensive PVD and CAD history Clear liquids, n.p.o. after midnight GI consult EGD 01/2019 - Esophageal mucosal changes secondary to established short-segment Pendleton's disease. Erythematous mucosa in the gastric body. Biopsied. Normal duodenal bulb and second portion of the duodenum. 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 Noted documented allergy to NovoLog however reviewed with pharmacy and patient has tolerated in the past. 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 above DVT PROPHYLAXIS SCDs for now in the setting of GI bleeding Admission and Anticipated Discharge Date Admission Date: October 07, 2023 Subjective ff up for melena, etc seen resting in bed, comfortable in good spirits feels better today no abdominal pain, nausea, recurrence of melena or hematochezia no chest pain, dyspnea, palpitations, dizziness no other symptoms Review of Systems Review of Systems: all noted and negative except for above Physical Exam Physical Exam: General- oriented x 3, not in distress, speaks in sentences with no effort or accessory muscle use Eyes- anicteric Neck- no JVD Lungs- clear breath sounds bilaterally, no rales/wheezes Heart- normal rate, regular rhythm; no murmurs Abdomen- normal bowel sounds, nondistended, soft, nontender Extremities- no pretibial edema, no calf tenderness Neuro- alert, oriented x 3; no gross focal neurologic deficits Skin- warm & dry Results & Data Results & Data Vital Signs (Past 12 Hours) Vital Signs Temp Pulse Pulse Resp BP BP Pulse Ox 10/08/23 15:21 36.6 C 87 16 109/71 92 10/08/23 11:25 36.6 C 84 20 116/74 93 10/08/23 08:47 10/08/23 07:36 36.5 C 80 20 112/60 96 10/08/23 07:22 87 O2 Del Method O2 Flow Rate 10/08/23 15:21 Room Air 10/08/23 11:25 Room Air 10/08/23 08:47 Nasal Cannula 10/08/23 07:36 Nasal Cannula 2 10/08/23 07:22 all noted and reviewed including below
[2023-10-09 05:56] LABS: Basophils # (auto) 0.04 K/uL (0.00-0.20); Basophils % (auto) 0.6 %; Eosinophils # (auto) 0.14 K/uL (0.00-0.50); Eosinophils % (auto) 2.1 %; Hematocrit (blood only) 45.3 % (37.0-47.0); Hemoglobin 14.2 g/dl (12.0-16.0); Immature Granulocytes # (auto) 0.01 K/uL (0.01-0.20); Immature Granulocytes % (auto) 0.1 %; Lymphocytes # (auto) 1.54 K/uL (1.20-3.40); Lymphocytes % (auto) 22.7 %; Mean Corpuscular Hemoglobin 27.1 pg (25.0-34.0); Mean Corpuscular Hgb Conc 31.3 g/dL (32.0-36.0); Mean Corpuscular Volume 86.5 fL (80.0-100.0); Mean Platelet Volume 10.4 fL (9.4-12.4); Monocytes # (auto) 0.52 K/uL (0.11-0.59); Monocytes % (auto) 7.7 %; Neutrophils # (auto) 4.53 K/uL (1.40-6.50); Neutrophils % (auto) 66.8 %; Platelet Count 248 K/uL (130-400); RDW Coefficient of Variation 18.9 % (11.5-14.5); RDW Standard Deviation 59.2 fL (36.4-46.3); Red Blood Count 5.24 M/uL (4.20-5.40); White Blood Count 6.78 K/ul (4.8-10.8)
[2023-10-09 06:11] LABS: BUN Creatinine Ratio 19.8 (10-20); Calcium 10.1 mg/dl (8.6-10.3); Creatinine Clr Calc Pharmacy 50.3 ml/min; Est GFR (Non-African American) 62.2 ml/min; Potassium 4.3 mmol/L (3.5-5.1)
--- NOTE | 2023-10-09 08:05 | XRay Report ---
XR femur LT 2V routine HISTORY: 73 years-old Female fall, r/o fracture acute the left thigh status post fall COMPARISON: None TECHNIQUE: 2 views of the left femur FINDINGS: [id number] amputation. Arterial calcifications. Demineralized appearance of the bones. No acute f racture or dislocation. Mild to moderate left hip osteoarthritis. IMPRESSION: 1. No acute fracture or dislocation. 2. Below the knee amputation. ACT 112: Negative or not required by law. The above report was generated using voice recognition software. It may contain grammatical, syntax o r spelling errors. Electronically signed by: Nilay Figueredo M.D. 10/09/2023 8:03 AM
--- NOTE | 2023-10-09 10:09 | Gastroenterology Progress Note ---
Date of Service October 09, 2023 Assessment & Plan (1) Melena: Plan: She is feeling well and her H/H have not dropped a bit. I am good with her going home and she can see her regular GI for EGD and colonoscopy which I still think are needed. Either that or she can see her PCP to arrange those procedures. Admission and Anticipated Discharge Date Admission Date: October 07, 2023 Subjective Feeling great. Wants to go home. No abdominal pain. No BM since CT scan. Tolerating diet. H/H are stable Physical Exam Physical Exam: Looks great Results & Data Vital Signs (Past 12 Hours) Vital Signs Temp Pulse Pulse Resp BP BP Pulse Ox 10/09/23 08:00 10/09/23 07:43 36.4 C L 84 18 110/61 92 10/09/23 07:00 86 10/09/23 04:00 36.7 C 78 18 130/78 91 10/09/23 00:00 36.5 C 61 18 133/76 97 10/08/23 22:18 84 O2 Del Method O2 Flow Rate 10/09/23 08:00 Room Air 10/09/23 07:43 Room Air 10/09/23 07:00 10/09/23 04:00 Nasal Cannula 2 10/09/23 00:00 Nasal Cannula 2 10/08/23 22:18
--- NOTE | 2023-10-09 10:58 | Discharge Summary ---
Discharge Summary Date of Service October 09, 2023 Principal Dx & Hospital Course #1 = Principal Diagnosis (1) GI bleed: Admit to [facility] with telemetry Patient presenting from home with reports of diarrhea that she describes as black and tarry. Patient is on DAPT for extensive PVD and CAD history. In the ED, Hgb 14.6. Suspect some component of hemoconcentration. Stool was heme positive S/p Protonix bolus and drip in the ED, will continue with IVF Serial H&H Hold ASA and Plavix for now, resume promptly once stable given extensive PVD and CAD history Clear liquids, n.p.o. after midnight GI consult EGD 01/2019 - Esophageal mucosal changes secondary to established short-segment Pendleton's disease. Erythematous mucosa in the gastric body. Biopsied. Normal duodenal bulb and second portion of the duodenum. 10/08 Hemoglobin remained stable at 14 throughout admission No recurrence of melena Diet advanced Tolerating well GI bleed unlikely at this point Resume both aspirin and Plavix as patient just had cardiac stent placement November 2022 Monitor CBC closely (2) Lung nodule seen on imaging study: seen on CXR: Redemonstration of the 11 mm irregular nodule within the right upper lobe. (+) smoker Further work up, management, and ff up as outpatient (3) Liver cirrhosis: Seen on CT abdomen pelvis: Subtle nodular contour to the liver suggestive of mild cirrhosis. 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 Referred to pulmonary service. 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 History is obtained from the patient and review of outpatient PCP, vascular, cardiology records. Patient reports she was feeling in her usual state of health up until yesterday. States that she developed diarrhea that has been black in color. She also reports associated dizziness. Patient then presented to the ED for further evaluation. She reports epigastric discomfort that has been similar to bleeding ulcers in the past. She has had some mild nausea but denies vomiting. No fevers or chills. Denies chest pain or shortness of breath. No urinary symptoms. In the ED, stool was heme positive. Hgb 14.6. Patient was given IV fentanyl, IV Zofran, IV PPI bolus followed by drip. Admission Exam Per Admitting Provider GENERAL APPEARANCE: AxOx4, generally well-appearing female HEENT: NC, AT. MMM. EOMI, clear conjunctiva, oropharynx clear. NECK: Supple without lymphadenopathy. No stiffness or restricted ROM. HEART: Normal rate and regular rhythm, no murmur appreciated LUNGS: CTAB however diminished ABDOMEN: TTP in epigastrium, LUQ BACK: No CVAT, no obvious deformity. EXTREMITIES: Without cyanosis, clubbing or edema. left BKA NEUROLOGICAL: Grossly nonfocal. Alert and oriented, moving all 4 extremities. left facial droop, chronic LUE 4/5 strength Skin: Warm and dry without any rash. Stump with well healing surgical incision, no wounds Discharge Exam General- oriented x 3, not in distress, speaks in sentences with no effort or accessory muscle use Eyes- anicteric Neck- no JVD Lungs- clear breath sounds bilaterally, no rales/wheezes Heart- normal rate, regular rhythm; no murmurs Abdomen- normal bowel sounds, nondistended, soft, nontender Extremities- no pretibial edema, no calf tenderness Neuro- alert, oriented x 3; no gross focal neurologic deficits Skin- warm & dry Updated Medication List Medication Instructions Recorded Confirmed Type aspirin 81 mg tablet,delayed 81 mg PO QAM 11/06/18 10/07/23 History release atorvastatin 40 mg tablet 40 mg PO QPM 11/06/18 10/07/23 History buspirone 15 mg tablet 15 mg PO BID 11/06/18 10/07/23 History clopidogrel 75 mg tablet 75 mg PO QAM 11/06/18 10/07/23 History albuterol sulfate 90 mcg/actuation 2 puff inhalation Q4 PRN Shortness 11/16/18 10/07/23 History aerosol inhaler (Ventolin HFA) Of Breath cholecalciferol (vitamin D3) 125 5,000 unit PO BID 03/21/19 10/07/23 History mcg (5,000 unit) tablet pantoprazole 40 mg tablet,delayed 40 mg PO BID 03/21/19 10/07/23 History release sucralfate 1 gram tablet (Carafate) 1 g PO ACHS 03/21/19 10/07/23 History duloxetine 30 mg capsule,delayed 30 mg PO AMHS 12/13/22 10/07/23 History release ipratropium 0.5 mg-albuterol 3 mg 3 ml inhalation Q4 PRN Shortness 12/13/22 10/07/23 History (2.5 mg base)/3 mL nebulization Of Breath Or Wheezing soln Bifidobacterium infantis 4 mg 4 mg PO DAILY 08/30/23 10/07/23 History capsule (Align) baclofen 5 mg tablet 5 mg PO TID muscle spasms 08/30/23 10/07/23 History calcium carbonate 600 mg PO QAM 08/30/23 10/07/23 History famotidine 20 mg tablet 20 mg PO QAM 08/30/23 10/07/23 History furosemide 20 mg tablet (Lasix) 20 mg PO QAM 08/30/23 10/07/23 History gabapentin 300 mg capsule 300 mg PO TID 08/30/23 10/07/23 History hydrocodone 5 mg-acetaminophen 325 1 tab PO Q6 PRN Pain 08/30/23 10/07/23 History mg tablet loratadine 10 mg tablet 10 mg PO QAM 08/30/23 10/07/23 History multivitamin 1 tab PO DAILY 08/30/23 10/07/23 History polyethylene glycol 3350 17 gram 17 g PO DAILY PRN Constipation 08/30/23 10/07/23 History oral powder packet (Miralax) nicotine 7 mg/24 hr daily 1 patch transdermal QAM #30 ea 09/04/23 10/07/23 Rx transdermal patch budesonide-formoterol HFA 80 2 inh inhalation BID 10/07/23 10/07/23 History mcg-4.5 mcg/actuation aerosol inhaler dulaglutide 0.75 mg/0.5 mL 0.75 mg subcut WK 10/07/23 10/07/23 History subcutaneous pen injector (Trulicity) empagliflozin 10 mg tablet 10 mg PO QAM PRN Only if BSG is 10/07/23 10/07/23 History (Jardiance) over 150 ferrous sulfate 325 mg (65 mg 325 mg PO BID 10/07/23 10/07/23 History iron) tablet (FeroSul) Hospital Stay Data Consultations 10/07/23 15:37 ED Decision to Admit Stat 10/07/23 20:32 Consult Cardiology Routine Consult Gastroenterology Routine Diagnostic Imagining Performed Laboratory Results WBC 6.78 K/ul (4.8-10.8) 10/09/23 05:23 RBC 5.24 M/uL (4.20-5.40) 10/09/23 05:23 Hgb 14.2 g/dl (12.0-16.0) 10/09/23 05:23 POC Hgb 16.3 g/dl (12.0-16.0) H 10/07/23 13:52 Hct 45.3 % (37.0-47.0) 10/09/23 05:23 POC Hct 48 % (37-47) H 10/07/23 13:52 MCV 86.5 fL (80.0-100.0) 10/09/23 05:23 MCH 27.1 pg (25.0-34.0) 10/09/23 05:23 MCHC 31.3 g/dL (32.0-36.0) L 10/09/23 05:23 RDW Std Deviation 59.2 fL (36.4-46.3) H 10/09/23 05:23 RDW Coeff of Shahrzad 18.9 % (11.5-14.5) H 10/09/23 05:23 Plt Count 248 K/uL (130-400) 10/09/23 05:23 MPV 10.4 fL (9.4-12.4) 10/09/23 05:23 Immature Gran % (Auto) 0.1 % 10/09/23 05:23 Neut % (Auto) 66.8 % 10/09/23 05:23 Lymph % (Auto) 22.7 % 10/09/23 05:23 Moore % (Auto) 7.7 % 10/09/23 05:23 Eos % (Auto) 2.1 % 10/09/23 05:23 Baso % (Auto) 0.6 % 10/09/23 05:23 Neut # (Auto) 4.53 K/uL (1.40-6.50) 10/09/23 05:23 Lymph # (Auto) 1.54 K/uL (1.20-3.40) 10/09/23 05:23 Moore # (Auto) 0.52 K/uL (0.11-0.59) 10/09/23 05:23 Eos # (Auto) 0.14 K/uL (0.00-0.50) 10/09/23 05:23 Baso # (Auto) 0.04 K/uL (0.00-0.20) 10/09/23 05:23 Immature Gran # (Auto) 0.01 K/uL (0.01-0.20) 10/09/23 05:23 RBC Morphology Unremarkable 10/07/23 13:44 POC Sodium 134 mmol/L (135-144) L 10/07/23 13:52 Sodium 138 mmol/L (136-145) 10/09/23 05:23 POC Potassium 4.5 mmol/L (3.3-5.0) 10/07/23 13:52 Potassium 4.3 mmol/L (3.5-5.1) 10/09/23 05:23 POC Chloride 96 mmol/L (101-112) L 10/07/23 13:52 Chloride 101 mmol/L (98-107) 10/09/23 05:23 Carbon Dioxide 33 mmol/L (21-32) H 10/09/23 05:23 POC Total CO2 29 mmol/L (24-31) 10/07/23 13:52 Anion Gap 4 (3-11) 10/09/23 05:23 POC Anion Gap 15.0 mmol/L (16-25) L 10/07/23 13:52 POC BUN 17 mg/dl (7-18) 10/07/23 13:52 BUN 18 mg/dl (6-23) 10/09/23 05:23 Creatinine 0.91 mg/dl (0.6-1.2) 10/09/23 05:23 POC Creatinine 1.1 mg/dl (0.6-1.3) 10/07/23 13:52 Est Cr Clr Drug Dosing 50.3 ml/min 10/09/23 05:23 Est GFR ( Amer) 72.0 ml/min 10/09/23 05:23 Est GFR (Non-Af Amer) 62.2 ml/min 10/09/23 05:23 BUN/Creatinine Ratio 19.8 (10-20) 10/09/23 05:23 Glucose 118 mg/dl (70-99(Fasting)) H 10/09/23 05:23 POC Glucose 165 mg/dl (70-99) H 10/09/23 11:50 POC Glucose (other) 176 mg/dl (70-99) H 10/07/23 13:52 Lactate 1.8 mmol/L (0.4-2.0) 10/07/23 13:44 Calcium 10.1 mg/dl (8.6-10.3) 10/09/23 05:23 POC Ioniz Calcium Nora 1.16 mmol/l (1.12-1.32) 10/07/23 13:52 Magnesium 2.3 mg/dl (1.7-2.4) 10/07/23 13:44 Total Bilirubin 0.6 mg/dl (0.2-1.0) 10/07/23 13:44 AST 31 U/L (13-39) 10/07/23 13:44 ALT 17 U/L (7-52) 10/07/23 13:44 Alkaline Phosphatase 99 U/L (34-104) 10/07/23 13:44 Troponin I High Sens 13.6 pg/ml (0-14) 10/07/23 13:44 Total Protein 8.1 gm/dl (6.0-8.3) 10/07/23 13:44 Albumin 4.4 gm/dl (3.4-5.0) 10/07/23 13:44 Globulin 3.7 gm/dl (2.5-4.0) 10/07/23 13:44 Albumin/Globulin Ratio 1.2 (0.9-2) 10/07/23 13:44 Lipase 17 U/L (11-82) 10/07/23 13:44 TSH 1.078 uIu/ml (0.300-4.500) 10/07/23 13:44 Urine Color Yellow 10/07/23 13:21 Urine Appearance Cloudy (Clear) A 10/07/23 13:21 Urine pH 6.0 (4.5-7.5) 10/07/23 13:21 Ur Specific [place] 1.015 (1.000-1.030) 10/07/23 13:21 Urine Protein Negative (Negative) 10/07/23 13:21 Urine Glucose (UA) 3+ (Negative) H 10/07/23 13:21 Urine Ketones Negative (Negative) 10/07/23 13:21 Urine Blood 1+ (Negative) H 10/07/23 13:21 Urine Nitrite Negative (Negative) 10/07/23 13:21 Urine Bilirubin Negative (Negative) 10/07/23 13:21 Urine Urobilinogen Negative (Negative) 10/07/23 13:21 Ur Leukocyte Esterase Negative (Negative) 10/07/23 13:21 Urine WBC (Auto) 6-10 /hpf (0-5) H 10/07/23 13:21 Urine RBC (Auto) 6-10 /hpf (0-2) H 10/07/23 13:21 U Hyaline Cast (Auto) 0-2 /lpf (0-2) 10/07/23 13:21 U Epithel Cells (Auto) >20 /hpf (0-2) H 10/07/23 13:21 Urine Bacteria (Auto) 4+ (None Seen) H 10/07/23 13:21 POC Stool Occult Blood Positive (Negative) A 10/07/23 14:00 Adenovirus (PCR) Not Detected (NotDetected) 10/07/23 13:58 B. pertussis DNA (PCR) Not Detected (NotDetected) 10/07/23 13:58 B.parapertussis DNA PCR Not Detected (NotDetected) 10/07/23 13:58 C. pneumoniae DNA (PCR) Not Detected (NotDetected) 10/07/23 13:58 Coronavirus OC43 (PCR) Not Detected (NotDetected) 10/07/23 13:58 Coronavirus HKU1 (PCR) Not Detected (NotDetected) 10/07/23 13:58 Coronavirus 229E (PCR) Not Detected (NotDetected) 10/07/23 13:58 SARS-CoV-2 (PCR) Not Detected (NotDetected) 10/07/23 13:58 Coronavirus NL63 (PCR) Not Detected (NotDetected) 10/07/23 13:58 Human Metapneumovir PCR Not Detected (NotDetected) 10/07/23 13:58 Influenza Type A (PCR) Not Detected (NotDetected) 10/07/23 13:58 Influenza Type B (PCR) Not Detected (NotDetected) 10/07/23 13:58 M. pneumoniae (PCR) Not Detected (NotDetected) 10/07/23 13:58 Parainfluenza 1 (PCR) Not Detected (NotDetected) 10/07/23 13:58 Parainfluenza 2 (PCR) Not Detected (NotDetected) 10/07/23 13:58 Parainfluenza 3 (PCR) Not Detected (NotDetected) 10/07/23 13:58 Parainfluenza 4 (PCR) Not Detected (NotDetected) 10/07/23 13:58 RSV (PCR) Not Detected (NotDetected) 10/07/23 13:58 Entero/Rhino (PCR) Not Detected (NotDetected) 10/07/23 13:58 Blood Type A Positive 10/07/23 14:00 Antibody Screen NEGATIVE 10/07/23 14:00 Impressions Abdomen/Pelvis CT 10/07/23 13:[address] WITH IV CONTRAST CT DOSE: 1892.85 mGy.cm HISTORY: weak, headache, bloody stool, dizzy TECHNIQUE: Multiaxial CT images of the abdomen and pelvis were performed following the use of intravenous contrast. A dose lowering technique was utilized adhering to the principles of ALARA. COMPARISON STUDY: Abdomen and pelvis CT 08/30/2023. FINDINGS: Mild dependent changes within the lung bases. Mild interstitial thickening which could be chronic. No pneumoperitoneum. No pneumatosis. There are old bilateral rib fractures. There is an old distal sacral fracture noted. 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 There is a femoral- femoral bypass graft which is patent. Subtle nodular contour to the liver suggestive of mild cirrhosis. No hepatic masses. The main portal vein is patent. The gallbladder, pancreas, spleen, and adrenal glands are within normal limits. A few subcentimeter bilateral renal hypodense lesions are too small to characterize but statistically represent cysts. No hydronephrosis. Calcified plaque within the normal caliber abdominal aorta. No retroperitoneal or pelvic lymphadenopathy. No pelvic free fluid. Prior hysterectomy. Mild bladder wall thickening has improved. A superior mesenteric artery stent appears patent. Moderate fecal retention. A few colonic diverticula. No evidence for acute diverticulitis. No bowel wall thickening or obstruction. Normal appendix. IMPRESSION: 1. No bowel wall thickening or obstruction. 2. Normal appendix. 3. Moderate fecal retention. 4. Mild bladder wall thickening which has improved. 5. Additional findings as described above. ACT 112: Negative or not required by law. Electronically signed by: Erick Crandall M.D. 10/07/2023 2:51 PM Chest X-Ray 10/07/23 13:31 XR chest 1V portable HISTORY: weakness COMPARISON: Chest 08/30/2023. FINDINGS: No pneumothorax. No pleural effusions. The cardiac silhouette is top normal in size. No new focal lung consolidations to suggest a pneumonia. No evidence for pulmonary edema. Mild interstitial thickening which is likely chronic. Calcifications within the aortic knob. Old left-sided rib fractures. There is again noted an 11 mm irregular nodule within the right upper lobe. IMPRESSION: 1. No acute process within the chest. 2. Redemonstration of the 11 mm irregular nodule within the right upper lobe. ACT 112: Negative or not required by law. Electronically signed by: Erick Crandall M.D. 10/07/2023 2:[address] 10/07/23 13:[address] DOSE: HISTORY: weak, headache, bloody stool, dizzy TECHNIQUE: Multiaxial CT images of the head were performed without the use of intravenous contrast. Automated exposure control was utilized for this study. A dose lowering technique was utilized adhering to the principles of ALARA. Comparison: Head CT 01/04/2023. Findings: The paranasal sinuses and mastoid air cells are clear. There is an old large right MCA territory infarct again noted. There is no mass, hematoma, midl ine shift, acute infarct. Mild atrophy and microvascular ischemic changes remain unchanged. The calvarium and skull base are intact. Impression: 1. No acute infarct or intracranial hemorrhage. 2. 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 ACT 112: Negative or not required by law. Electronically signed by: Erick Crandall M.D. 10/07/2023 3:08 PM Femur X-Ray 10/08/23 18:54 XR femur LT 2V routine HISTORY: 73 years-old Female fall, r/o fracture acute the left thigh status post fall COMPARISON: None TECHNIQUE: 2 views of the left femur FINDINGS: [id number] amputation. Arterial calcifications. Demineralized appearance of the bones. No acute fracture or dislocation. Mild to moderate left hip osteoarthritis. IMPRESSION: 1. No acute fracture or dislocation. 2. Below the knee amputation. ACT 112: Negative or not required by law. The above report was generated using voice recognition software. It may contain grammatical, syntax or spelling errors. Electronically signed by: Nilay Figueredo M.D. 10/09/2023 8:03 AM Pending Results Patient Have Any Pending Studies at Discharge: No Discharge Instructions Given to Patient (Per Discharging Provider) ALWAYS TAKE ASPIRIN WITH A FULL STOMACH. YOU CAN RESUME YOUR USUAL MEDICATION REGIMEN. PLEASE CALL YOUR PRIMARY CARE PHYSICIAN OR RETURN TO THE ER IF WITH WORSENING OF SYMPTOMS, INCLUDING ABDOMINAL PAIN, NAUSEA, BLACK OR BLOODY STOOLS. FOLLOW UP WITH PRIMARY CARE PHYSICIAN IN 1 WEEK. THE CLINIC WILL BE CALLING YOU SOON FOR THE APPOINTMENT. Total Time Total Time Spent Total Time Spent (In Minutes): 45 minutes
[2023-10-09] MEDS: ASPIRIN 81 MG ECTAB PO SCH (11:48)
[2023-10-09] MEDS ORDERED: PANTOprazole 40 MG TAB PO SCH (21:00)
== END 2023-10-09 14:00 | disposition home health service (06) | DRG 379 ==
LOC: ED 13:02 → SUATTDRO 15:59 → EDINP 15:59 → 2N 23:00